=== PATIENT | male | born 1965 | race Hispanic/Latino ===

== ENCOUNTER 2022-03-04 09:28 | Emergency (ER) | payer SELFPAY ==
--- OUTSIDE RECORDS SUMMARY | 2022-03-04 09:44 | XMS REPORT | Continuity of Care Document ---
:1965 Author Organization [facility] t Address [address] [place] [address] Care Team Providers Name Role Phone Pcp, Patient Does Not Have A Primary Care Physician +[id number] MAGALY FOOTE Attending Clinician Unavailable Addie DEWITT, [facility]ician Magaly Foote MD Attending Clinician ELVIA MCKEON Attending Clinician Unavailable Elvia Mckeon MD Attending Clinician MIKY FAJARDO Attending Clinician Unavailable Miky Fajardo MD Attending Clinician LOUIE NARANJO Attending Clinician Unavailable Louie Curiel Attending Clinician Alexandra Burroughs Attending Clinician Yadira Nick MD Attending Clinician YADIRA NICK Attending Clinician Unavailable EDA AUGUSTINE Attending Clinician Unavailable Tatiana Rincon Attending Clinician Francisco Johansen MD Attending Clinician Robyn Canas RN Attending Clinician Kam MCKEONSWPaula Attending Clinician Doctor Unassigned, [place] Attending Clinician Unavailable Sai Lomas MD Attending Clinician ELVIA MCKEON Admitting Clinician Unavailable LOUIE NARANJO Admitting Clinician Unavailable Abebe DEWITT, Sai Daugherty Admitting Clinician Payers Payer Name Policy Type Policy Number Effective Date Expiration Date S ource Problems Condition Condition Condition Status Onset Resolution Last Treating Co mments Source Name Details Category Date Date Treatment Clinician Date S/P S/P Disease Active 2020-0 [facility] amputation amputation 12-19 it y of of foot, of foot, 00:00: [place] [address] Medical Branch S/P S/P Disease Active 2020-0 [facility] amputation amputation 12-19 it y of of foot, of foot, 00:00: [place] [address] Medical Branch 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 toe of 8- [place] of left foot [place] 00:[place] Bandemia Bandemia Disease Active 2020-0 Unive rs 8- ity of 00:00: [place] [address] Medical Branch Lactic Lactic Disease Active 2020-0 Univers acidosis acidosis 11-25 ity of 00:00: [place] [address] Medical Branch Essential Essential Disease Active 2020-0 Uni vers hypertensi hypertensi 11-25 it y of on on 00:00: [place] [address] Medical Branch Leukocytos Leukocytos Disease Active 2020-0 U nivers is is 11-25 ity of 00:00: [place] [address] Medical Branch Hyponatrem Hyponatrem Disease Active 2020-0 U nivers ia ia 11-25 ity of 00:00: [place] 00 Medical Branch Gangrene Gangrene Disease Active Unive rs associated associated 11-25 it y of with type with type 00:[place] 2 diabetes 2 diabetes 00 Me dical mellitus mellitus Branch Type 2 Type 2 Disease Active Univers diabetes diabetes 11-25 it[place] of mellitus, mellitus, 00:[place] without without 00 Medical long-term long-term Bran ch current current use of use of insulin insulin Gas Gas Disease Active Overview: Univer s gangrene gangrene 11-24 Formattin ity of of foot of foot 00:00: g of this [place] 00 note Medical might be Branch different from the original. Added automatic ally from request for surgery [id number] Cellulitis Cellulitis Disease Active U nivers of finger of finger 06-29 ity of of right of right 00:00: [place] hand hand 00 Medical Branch Allergies, Adverse Reactions, Alerts Allergy Allergy Status Severity Reaction(s) Onset Inactive Treating Comm ents Source Name Type Date Date Clinician NO KNOWN Drug Active Univers ALLERGIE Class ity of S [facility] Social History Social Habit Start Date Stop Date Quantity Comments Source Exposure to 2022-02-02 2022-02-12 Not sure University SARS-CoV-2 00:00:00 09:56:00 [facility] (event) [place] Tobacco use and 2022-02-12 2022-02-12 Smokeless tobacco Un iversity of exposure 00:00:00 00:00:00 non-user [facility] Alcohol intake 2022-02-12 2022-02-12 .29 /d University of 00:00:00 00:00:00 [place] [facility] History [facility] 2019-11-26 2019-11-26 4 University o f Financial 00:00:00 00:00:00 [place] [facility] History [facility] Food 2019-11-26 2019-11-26 1 Univers ity of Worry 00:00:00 00:00:00 [place] [facility] History [facility] Food 2019-11-26 2019-11-26 1 Univers ity of Scarcity 00:00:00 00:00:00 [place] [facility] History [facility] 2019-11-26 2019-11-26 2 University o f Transport Med 00:00:00 00:00:00 [place] Medic al Branch History SDOH 2019-11-26 2019-11-26 2 University o f Transport Non-Med 00:00:00 00:00:00 [facility] [place] Sex Ass[birth year] At [birth year] Universit y of 00:00:00 00:00:00 [facility] Smoking Status Start Date Stop Date Source Never smoked tobacco [facility] Medications Ordered Filled Start Stop Current Ordering Indication Dosage Frequency Signature Comments Components Source Medication Medication Date Date Medication? Clinician (SIG) Name Name cephALEXin 2021-03- Yes [id number] 500mg Take 1 Univers 500 mg -16 02-27 capsule by ity of capsule 00:00: 05:59 mouth 4 [place] 00 [facility] Medical times Branch daily for 14 days. cephALEXin 2021-03- Yes [id number] 500mg Take 1 Univers 500 mg -16 02-27 capsule by ity of capsule 00:00: 05:59 mouth 4 [place] 00 :[facility] Medical times Branch daily for 14 days. cephALEXin 2021-03- Yes [id number] 500mg Take 1 Univers 500 mg -02-27 capsule by ity of capsule 00:00: 05:59 mouth 4 [place] 00 :[facility] Medical times Branch daily for 14 days. cephALEXin 2021-03- Yes [id number] 500mg Take 1 Univers 500 mg -16 02-27 capsule by ity of capsule 00:00: 05:59 mouth 4 [place] 00 :[facility] Medical times Branch daily for 14 days. cephALEXin 2021-03- No 500mg 500 mg, Un davy (KEFLEX) 1-10 11-10 Oral, ity of capsule 500 05:15: 04:20 ONCE, 1 [place] mg 00 :[place] dose, On Medical Wed Branch 02/05/22 at 2315, CHARMAINE
Re ason for Anti-Infec tive: Documented Infection< br>Documen alex Infection Site: Skin / Soft Tissue
Duration of Therapy: 7 days traMADoL 50 2021-03 Yes [id number] 50mg Take 1 Univ ers mg tablet 1-09 tablet by ity o f 00:00: mouth [place] 00 every 6 Medical (six) Branch hours as needed (pain). Indication s: acute pain traMADoL 50 2021-03 Yes [id number] 50mg Take 1 Univ ers mg tablet 1-09 tablet by ity o f 00:00: mouth [place] 00 every 6 Medical (six) Branch hours as needed (pain). Indication s: acute pain traMADoL 50 2021-03 Yes [id number] 50mg Take 1 Univ ers mg tablet 1-09 tablet by ity o f 00:00: mouth [place] 00 every 6 Medical (six) Branch hours as needed (pain). Indication s: acute pain traMADoL 50 2021-03 Yes [id number] 50mg Take 1 Univ ers mg tablet 1-09 tablet by ity o f 00:00: mouth [place] 00 every 6 Medical (six) Branch hours as needed (pain). Indication s: acute pain traMADoL 50 2021-03 Yes [id number] 50mg Take 1 Univ ers mg tablet 1-09 tablet by ity o f 00:00: mouth [place] 00 every 6 Medical (six) Branch hours as needed (pain). Indication s: acute pain cephALEXin 2021-03- Yes [id number] 500mg Take 1 Univers 500 mg 04-07 capsule by ity of capsule 00:00: 05:59 mouth 4 [place] 00 :00 (four) Medical times Branch daily for 10 days. cephALEXin 2021-03- No [id number] 500mg Take 1 Univers 500 mg 04-07 capsule by ity of capsule 00:00: 00:00 mouth 4 [place] 00 :00 (four) Medical times Branch daily for 10 days. cephALEXin 2021-03- No [id number] 500mg Take 1 Univers 500 mg 04-07 capsule by ity of capsule 00:00: 00:00 mouth 4 [place] 00 :00 (four) Medical times Branch daily for 10 days. cephALEXin 2021-03- No [id number] 500mg Take 1 Univers 500 mg 04-07 capsule by ity of capsule 00:00: 00:00 mouth 4 [place] 00 :00 (four) Medical times Branch daily for 10 days. cephALEXin 2021-03 Yes [id number] 500mg Take 1 Univers (KEFLEX) 0-18 [id number] capsule by ity of 500 mg 00:00: mouth 2 [place] capsule 00 (two) Medical times Branch daily. ibuprofen 2022-1 Yes [id number] 800mg Take 1 Univers 800 mg 0-18 [id number] tablet by ity of tablet 00:00: mouth [place] 00 every 8 Medical (eight) Branch hours as needed for Pain (scale 4-6). cephALEXin 2021-03 Yes [id number] 500mg Take 1 Univers (KEFLEX) 0-18 [id number] capsule by ity of 500 mg 00:00: mouth 2 [place] capsule 00 (two) Medical times Branch daily. ibuprofen 2021-03 Yes [id number] 800mg Take 1 Univers 800 mg 0-18 [id number] tablet by ity of tablet 00:00: mouth [place] 00 every 8 Medical (eight) Branch hours as needed for Pain (scale 4-6). ibuprofen 2021-03 Yes [id number] 800mg Take 1 Univers 800 mg 0-18 [id number] tablet by ity of tablet 00:00: mouth [place] 00 every 8 Medical (eight) Branch hours as needed for Pain (scale 4-6). ibuprofen 2021-03 Yes [id number] 800mg Take 1 Univers 800 mg 0-18 [id number] tablet by ity of tablet 00:00: mouth [place] 00 every 8 Medical (eight) Branch hours as needed for Pain (scale 4-6). ibuprofen 2021-03 Yes [id number] 800mg Take 1 Univers 800 mg 0-18 [id number] tablet by ity of tablet 00:00: mouth [place] 00 every 8 Medical (eight) Branch hours as needed for Pain (scale 4-6). ibuprofen 2021-03 Yes [id number] 800mg Take 1 Univers 800 mg 0-18 [id number] tablet by ity of tablet 00:00: mouth [place] 00 every 8 Medical (eight) Branch hours as needed for Pain (scale 4-6). cephALEXin 2021-03- No [id number] 500mg Take 1 Univers (KEFLEX) 0-18 11-16 [id number] capsule by it y of 500 mg 00:00: 00:00 mouth 2 [place] capsule 00 :00 (two) Medical times Branch daily. cephALEXin 2021-03- No [id number] 500mg Take 1 Univers (KEFLEX) 0-18 11-16 [id number] capsule by it y of 500 mg 00:00: 00:00 mouth 2 [place] capsule 00 :00 (two) Medical times Branch daily. cephALEXin 2021-03- No [id number] 500mg Take 1 Univers (KEFLEX) 0-18 11-16 [id number] capsule by it y of 500 mg 00:00: 00:00 mouth 2 [place] capsule 00 :00 (two) Medical times Branch daily. clindamycin 2021-2021- No 600mg 600 mg, IV Univers in 5 % 12-25 Piggyback, ity of dextrose 17:00: 18:29 ONCE, 1 [place] (CLEOCIN) 00 :00 dose, On Medica l 600 mg/50 Wed Branch mL IV 12/25/21 at piggyback 1200, RTU 600 mg Administer over 30 Minutes, 50 mL
R esmer for Anti-Infec tive: Documented Infection< br>Documen alex Infection Site: Skin / Soft Tissue
Duration of Therapy: 7 days
Re stricted use approved by: ED PROVIDER doxycycline 2021-0 Yes [id number] 100mg Take 1 Univers hyclate 100 9-28 capsule by it y of mg capsule 00:00: [place] (two) Medical times Branch daily. doxycycline 2021-0 Yes [id number] 100mg Take 1 Univers hyclate 100 9-28 capsule by it y of mg capsule 00:00: mouth [place] 00 (two) Medical times Branch daily. doxycycline 2021-0 Yes [id number] 100mg Take 1 Univers hyclate 100 9-28 capsule by it y of mg capsule 00:00: mouth [place] 00 (two) Medical times Branch daily. doxycycline 2021-0 Yes [id number] 100mg Take 1 Univers hyclate 100 9-28 capsule by it y of mg capsule 00:00: mouth [place] 00 (two) Medical times Branch daily. doxycycline 2021-0 Yes [id number] 100mg Take 1 Univers hyclate 100 9-28 capsule by it y of mg capsule 00:00: mouth [place] 00 (two) Medical times Branch daily. doxycycline 2021-0 Yes [id number] 100mg Take 1 Univers hyclate 100 9-28 capsule by it y of mg capsule 00:00: mouth 2 [place] 00 (two) Medical times Branch daily. doxycycline 2021-0 Yes [id number] 100mg Take 1 Univers hyclate 100 9-28 capsule by it y of mg capsule 00:00: mouth [place] 00 (two) Medical times Branch daily. TAKE 1 2022-0 No TABLET ONCE 8-11 DAILY. 00:00: 00 TAKE 1 2022-0 No 45 TABLET ONCE 8-11 DAILY. 00:00: 00 Dose 2022-0 No Unknown 4-05 00:00: 00 Dose 2022-0 No Unknown 4-05 00:00: 00 Dose 2022-0 No Unknown 4-05 00:00: 00 Dose 2022-0 No Unknown 4-05 00:00: 00 Dose 2022-0 No Unknown 4-05 00:00: 00 Dose 2022-0 No Unknown 4-05 00:00: 00 Dose 2022-0 No Unknown 4-05 00:00: 00 Dose 2022-0 No Unknown 4-05 00:00: 00 Dose 2022-0 No Unknown 4-05 00:00: 00 Dose 2022-0 No Unknown 4-05 00:00: 00 Dose 2022-0 No Unknown 4-05 00:00: 00 Dose 2022-0 No Unknown 4-05 00:00: 00 Dose 2022-0 No Unknown 4-05 00:00: 00 Dose 2022-0 No Unknown 4-05 00:00: 00 Dose 2022-0 No Unknown 4-05 00:00: 00 Dose 2022-0 No Unknown 4-05 00:00: 00 Dose 2022-0 No Unknown 3-13 00:00: 00 Dose 2022-0 No Unknown 3-13 00:00: 00 Dose 2022-0 No Unknown 3-13 00:00: 00 Dose 2022-0 No Unknown 3-13 00:00: 00 amlodipine 2022-0 No 1mg 10 mg 3-08 tablet 00:00: 00 pioglitazon 2022-0 No 1mg e 45 mg 3-08 tablet 00:00: 00 glimepiride 2022-0 No 1mg 4 mg tablet 3-08 00:00: 00 carvedilol 2022-0 No 1mg 12.5 mg 3-08 tablet 00:00: 00 metformin 2022-0 No 2mg ER 500 mg 3-08 tablet,exte 00:00: nded 00 release 24 hr atorvastati 2022-0 No 1mg n 20 mg 3-08 tablet 00:00: 00 Dose 2022-0 No Unknown 3-08 00:00: 00 Dose 2022-0 No Unknown 3-08 00:00: 00 Dose 2022-0 No Unknown 3-08 00:00: 00 Dose 2022-0 No Unknown 3-08 00:00: 00 Dose 2022-0 No Unknown 3-08 00:00: 00 Dose 2022-0 No Unknown 3-08 00:00: 00 Dose 2022-0 No Unknown 3-08 00:00: 00 Dose 2022-0 No Unknown 3-08 00:00: 00 Dose 2022-0 No Unknown 3-08 00:00: 00 Dose 2022-0 No Unknown 3-08 00:00: 00 Dose 2022-0 No Unknown 3-08 00:00: 00 Dose 2022-0 No Unknown 3-08 00:00: 00 Dose 2022-0 No Unknown 3-08 00:00: 00 Dose 2022-0 No Unknown 3-08 00:00: 00 Dose 2022-0 No Unknown 3-08 00:00: 00 Dose 2022-0 No Unknown 3-08 00:00: 00 Dose 2022-0 No Unknown 3-08 00:00: 00 Dose 2022-0 No Unknown 3-08 00:00: 00 Dose 2022-0 No Unknown 3-08 00:00: 00 Dose 2022-0 No Unknown 3-08 00:00: 00 Dose 2022-0 No Unknown 3-08 00:00: 00 Dose 2022-0 No Unknown 3-08 00:00: 00 Dose 2022-0 No Unknown 3-08 00:00: 00 Dose 2022-0 No Unknown 3-08 00:00: 00 Dose 2022-0 No Unknown 3-08 00:00: 00 Dose 2022-0 No Unknown 3-08 00:00: 00 Dose 2022-0 No Unknown 3-08 00:00: 00 Dose 2022-0 No Unknown 3-08 00:00: 00 Dose 2022-0 No Unknown 3-08 00:00: 00 Dose 2022-0 No Unknown 3-08 00:00: 00 Dose 2022-0 No Unknown 3-08 00:00: 00 Dose 2022-0 No Unknown 3-08 00:00: 00 Dose 2022-0 No Unknown 3-08 00:00: 00 Dose 2022-0 No Unknown 3-08 00:00: 00 Dose 2022-0 No Unknown 3-08 00:00: 00 Dose 2022-0 No Unknown 3-08 00:00: 00 Dose 2022-0 No Unknown 3-08 00:00: 00 Dose 2022-0 No Unknown 3-08 00:00: 00 Dose 2022-0 No Unknown 3-08 00:00: 00 amlodipine 2022-0 No 1mg 10 mg 3-08 tablet 00:00: 00 pioglitazon 2022-0 No 1mg e 45 mg 3-08 tablet 00:00: 00 glimepiride 2022-0 No 1mg 4 mg tablet 3-08 00:00: 00 carvedilol 2022-0 No 1mg 12.5 mg 3-08 tablet 00:00: 00 metformin 2-0 No 2mg ER 500 mg 3-08 tablet,exte 00:00: nded 00 release 24 hr atorvastati 2-0 No 1mg n 20 mg 3-08 tablet 00:00: 00 Levemir 2022-0 No 20unit/ U-100 3-08 mL Insulin 100 00:00: unit/mL 00 subcutaneou s solution Dose 2022-0 No Unknown 3-08 00:00: 00 Dose 2022-0 No Unknown 3-08 00:00: 00 Dose 2022-0 No Unknown 3-08 00:00: 00 Dose 2022-0 No Unknown 3-08 00:00: 00 Dose 2022-0 No Unknown 3-08 00:00: 00 Dose 2022-0 No Unknown 3-08 00:00: 00 Dose 2022-0 No Unknown 3-08 00:00: 00 Dose 2022-0 No Unknown 3-08 00:00: 00 Dose 2022-0 No Unknown 3-08 00:00: 00 Dose 2022-0 No Unknown 3-08 00:00: 00 Dose 2022-0 No Unknown 3-08 00:00: 00 Dose 2022-0 No Unknown 3-08 00:00: 00 Dose 2022-0 No Unknown 3-08 00:00: 00 Dose 2022-0 No Unknown 3-08 00:00: 00 Dose 2022-0 No Unknown 3-08 00:00: 00 Dose 2022-0 No Unknown 3-08 00:00: 00 Dose 2022-0 No Unknown 3-08 00:00: 00 Dose 2022-0 No Unknown 3-08 00:00: 00 Dose 2022-0 No Unknown 3-08 00:00: 00 Dose 2022-0 No Unknown 3-08 00:00: 00 Dose 2022-0 No Unknown 3-08 00:00: 00 Dose 2022-0 No Unknown 3-08 00:00: 00 Dose 2022-0 No Unknown 3-08 00:00: 00 Dose 2022-0 No Unknown 3-08 00:00: 00 Dose 2022-0 No Unknown 3-08 00:00: 00 Dose 2022-0 No Unknown 3-08 00:00: 00 Dose 2022-0 No Unknown 3-08 00:00: 00 Dose 2022-0 No Unknown 3-08 00:00: 00 Dose 2022-0 No Unknown 3-08 00:00: 00 Dose 2022-0 No Unknown 3-08 00:00: 00 Dose 2022-0 No Unknown 3-08 00:00: 00 Dose 2022-0 No Unknown 3-08 00:00: 00 Dose 2022-0 No Unknown 3-08 00:00: 00 Dose 2022-0 No Unknown 3-08 00:00: 00 Dose 2022-0 No Unknown 3-08 00:00: 00 Dose 2022-0 No Unknown 3-08 00:00: 00 Dose 2022-0 No Unknown 3-08 00:00: 00 Dose 2022-0 No Unknown 3-08 00:00: 00 Dose 2021-1 No Unknown 2-18 00:00: 00 Dose 2021-1 No Unknown 2-18 00:00: 00 Dose 2021-1 No Unknown 2-18 00:00: 00 Dose 2021-1 No Unknown 2-18 00:00: 00 Dose 2021-1 No Unknown 2-18 00:00: 00 Dose 2021-1 No Unknown 2-18 00:00: 00 Dose 2021-1 No Unknown 2-18 00:00: 00 Dose 2021-1 No Unknown 2-18 00:00: 00 Dose 2021-1 No Unknown 2-18 00:00: 00 Dose 2021-1 No Unknown 2-18 00:00: 00 Dose 2021-1 No Unknown 2-18 00:00: 00 Dose 2021-1 No Unknown 2-18 00:00: 00 pioglitazon 2021-0 No 1mg e 30 mg 8-27 tablet 00:00: 00 pioglitazon 2021-0 No 1mg e 30 mg 8-27 tablet 00:00: 00 amlodipine 2021-0 No 1mg 10 mg 8-11 tablet 00:00: 00 glimepiride 2021-0 No 1mg 4 mg tablet 8-11 00:00: 00 metformin 2021-0 No 2mg ER 500 mg 8-11 tablet,exte 00:00: nded 00 release 24 hr carvedilol 2021-0 No 1mg 12.5 mg 8-11 tablet 00:00: 00 atorvastati 2021-0 No 1mg n 20 mg 8-11 tablet 00:00: 00 amlodipine 2021-0 No 1mg 10 mg 8-11 tablet 00:00: 00 glimepiride 2021-0 No 1mg 4 mg tablet 8-11 00:00: 00 metformin 2021-0 No 2mg ER 500 mg 8-11 tablet,exte 00:00: nded 00 release 24 hr carvedilol 2021-0 No 1mg 12.5 mg 8-11 tablet 00:00: 00 atorvastati 2021-0 No 1mg n 20 mg 8-11 tablet 00:00: 00 amlodipine 2021-0 No 1mg 10 mg 4-06 tablet 00:00: 00 carvedilol 2021-0 No 1mg 12.5 mg 4-06 tablet 00:00: 00 glimepiride 2021-0 No 1mg 4 mg tablet 4-06 00:00: 00 amlodipine 2021-0 No 1mg 10 mg 4-06 tablet 00:00: 00 carvedilol 2021-0 No 1mg 12.5 mg 4-06 tablet 00:00: 00 metformin 2021-0 No 2mg ER 500 mg 4-06 tablet,exte 00:00: nded 00 release 24 hr glimepiride 2021-0 No 1mg 4 mg tablet 4-06 00:00: 00 metformin 2021-0 No 2mg ER 500 mg 4-06 tablet,exte 00:00: nded 00 release 24 hr atorvastati 2021-0 No 1mg n 20 mg 4-06 tablet 00:00: 00 atorvastati 1-0 No 1mg n 20 mg 4-06 tablet 00:00: 00 amlodipine 2020-1 No 1mg 10 mg 2-08 tablet 00:00: 00 metformin 2019-1 No 2mg ER 500 mg 2-08 tablet,exte 00:00: nded 00 release 24 hr glimepiride 2019-1 No 1mg 4 mg tablet 2-08 00:00: 00 carvedilol 2019-1 No 1mg 12.5 mg 2-08 tablet 00:00: 00 atorvastati 2019-1 No 1mg n 20 mg 2-08 tablet 00:00: 00 amlodipine 2019-1 No 1mg 10 mg 2-08 tablet 00:00: 00 metformin 2019-1 No 2mg ER 500 mg 2-08 tablet,exte 00:00: nded 00 release 24 hr glimepiride 2019-1 No 1mg 4 mg tablet 2-08 00:00: 00 carvedilol 2019-1 No 1mg 12.5 mg 2-08 tablet 00:00: 00 atorvastati 2019-1 No 1mg n 20 mg 2-08 tablet 00:00: 00 glimepiride 2020-0 No 1mg 4 mg tablet 929 00:00: 00 glimepiride 2020-0 No 1mg 4 mg tablet 9 00:00: 00 ibuprofen 2020-0 No 2mg 200 mg 9-25 tablet 00:00: 00 acetaminoph 2020-0 No 2mg en 325 mg 9-25 capsule 00:00: 00 aspirin 81 2020-0 No 1mg mg chewable 9-25 tablet 00:00: 00 amlodipine 2020-0 No 1mg 10 mg 9-25 tablet 00:00: 00 amoxicillin 2020-0 No 1mg 875 9-25 mg-potassiu 00:00: m 00 clavulanate 125 mg tablet carvedilol 2020-0 No 1mg 12.5 mg 9-25 tablet 00:00: 00 metformin 2020-0 No 1mg 1,000 mg 9-25 tablet 00:00: 00 atorvastati 2020-0 No 1mg n 20 mg 9-25 tablet 00:00: 00 hydrocodone 2020-0 No 1mg 5 9-25 mg-acetamin 00:00: ophen 325 00 mg tablet ibuprofen 2020-0 No 2mg 200 mg 9-25 tablet 00:00: 00 acetaminoph 2019-0 No 2mg en 325 mg 9-25 capsule 00:00: 00 aspirin 81 2019-0 No 1mg mg chewable 9-25 tablet 00:00: 00 amlodipine 2019-0 No 1mg 10 mg 9-25 tablet 00:00: 00 amoxicillin 2019-0 No 1mg 875 9-25 mg-potassiu 00:00: m 00 clavulanate 125 mg tablet carvedilol 2019-0 No 1mg 12.5 mg 9-25 tablet 00:00: 00 metformin 2019-0 No 1mg 1,000 mg 9-25 tablet 00:00: 00 atorvastati 2019-0 No 1mg n 20 mg 9-25 tablet 00:00: 00 hydrocodone 2019-0 No 1mg 5 9-25 mg-acetamin 00:00: ophen 325 00 mg tablet insulin 2019-0 Yes [id number] 10U inject 10 Univers glargine 9-22 Units ity of 100 unit/mL 00:00: under the [place] injection 00 skin 2 Medical (two) Branch times daily. empaglifloz 2019-0 Yes [id number] 1{tbl} Take 1 Univers in 9-22 tablet by ity of (JARDIANCE) 00:00: mouth [place] 10 mg Tab 00 daily. Medical Branch insulin 2019-0 Yes [id number] 10U inject 10 Univers glargine 9-22 Units ity of 100 unit/mL 00:00: under the [place] injection 00 skin 2 Medical (two) Branch times daily. empaglifloz 2020-0 Yes [id number] 1{tbl} Take 1 Univers in 9-22 tablet by ity of (JARDIANCE) 00:00: mouth [place] 10 mg Tab 00 daily. Medical Branch insulin 2020-0 Yes [id number] 10U inject 10 Univers glargine 9-22 Units ity of 100 unit/mL 00:00: under the [place] injection 00 skin 2 Medical (two) Branch times daily. empaglifloz 2019-0 Yes [id number] 1{tbl} Take 1 Univers in 9-22 tablet by ity of (JARDIANCE) 00:00: mouth [place] 10 mg Tab 00 daily. Medical Branch insulin 2019-0 Yes [id number] 10U inject 10 Univers glargine 9-22 Units ity of 100 unit/mL 00:00: under the [place] injection 00 skin 2 Medical (two) Branch times daily. empaglifloz 2020-0 Yes [id number] 1{tbl} Take 1 Univers in 9-22 tablet by ity of (JARDIANCE) 00:00: mouth [place] 10 mg Tab 00 daily. Medical Branch insulin 2020-0 Yes [id number] 10U inject 10 Univers glargine 9-22 Units ity of 100 unit/mL 00:00: under the [place] injection 00 skin 2 Medical (two) Branch times daily. empaglifloz 2020-0 Yes [id number] 1{tbl} Take 1 Univers in 9-22 tablet by ity of (JARDIANCE) 00:00: mouth [place] 10 mg Tab 00 daily. Medical Branch insulin 2020-0 Yes [id number] 10U inject 10 Univers glargine 9-22 Units ity of 100 unit/mL 00:00: under the [place] injection 00 skin 2 Medical (two) Branch times daily. empaglifloz 2020-0 Yes [id number] 1{tbl} Take 1 Univers in 9-22 tablet by ity of (JARDIANCE) 00:00: mouth [place] 10 mg Tab 00 daily. Medical Branch insulin 2020-0 Yes [id number] 10U inject 10 Univers glargine 9-22 Units ity of 100 unit/mL 00:00: under the [place] injection 00 skin 2 Medical (two) Branch times daily. empaglifloz 2020-0 Yes [id number] 1{tbl} Take 1 Univers in 9-22 tablet by ity of (JARDIANCE) 00:00: mouth [place] 10 mg Tab 00 daily. Medical Branch HYDROcodone 2020-0 Yes [id number] 1{tbl} Take 1 Un davy -acetaminop 9-22 tablet by ity of hen (NORCO) 00:00: mouth [place] 5-325 mg 00 every 6 Medical tablet (six) Branch hours as needed for Pain (scale 7-10). Indication s: acute pain insulin 2020-0 Yes [id number] 10U inject 10 Univers glargine 9-22 Units ity of 100 unit/mL 00:00: under the [place] injection 00 skin 2 Medical (two) Branch times daily. empaglifloz 2020-0 Yes [id number] 1{tbl} Take 1 Univers in 9-22 tablet by ity of (JARDIANCE) 00:00: mouth [place] 10 mg Tab 00 daily. Medical Branch acetaminoph 2020-0 Yes [id number] 1{tbl} Take 1 Un davy en-codeine 9-22 tablet by ity of (TYLENOL-CO 00:00: mouth [place] DEINE #3) 00 every 6 Medical 300-30 mg (six) Branch tablet hours as needed for Pain (scale 4-6). Indication s: chronic pain HYDROcodone 2020-0 Yes [id number] 1{tbl} Take 1 Un davy -acetaminop 9-22 tablet by ity of hen (NORCO) 00:00: mouth [place] 5-325 mg 00 every 6 Medical tablet (six) Branch hours as needed for Pain (scale 7-10). Indication s: acute pain insulin 2020-0 Yes [id number] 10U inject 10 Univers glargine 9-22 Units ity of 100 unit/mL 00:00: under the [place] injection 00 skin 2 Medical (two) Branch times daily. empaglifloz 2020-0 Yes [id number] 1{tbl} Take 1 Univers in 9-22 tablet by ity of (JARDIANCE) 00:00: mouth [place] 10 mg Tab 00 daily. Medical Branch acetaminoph 2020-0 Yes [id number] 1{tbl} Take 1 Un davy en-codeine 9-22 tablet by ity of (TYLENOL-CO 00:00: mouth [place] DEINE #3) 00 every 6 Medical 300-30 mg (six) Branch tablet hours as needed for Pain (scale 4-6). Indication s: chronic pain insulin 2020-0 Yes [id number] 10U inject 10 [facility] glargine 9-22 Units ity of 100 unit/mL 00:00: under the [place] injection 00 skin 2 Medical (two) Branch times daily. empaglifloz 2020-0 Yes [id number] 1{tbl} Take 1 [facility] in 9-22 tablet by [facility] (JARDIANCE) 00:00: mouth [place] 10 mg Tab 00 daily. Medical Branch HYDROcodone 2020-0 Yes [id number] 1{tbl} Take 1 [facility] davy -acetaminop 9-22 tablet by [facility] of hen (NORCO) 00:00: mouth [place] 5-325 mg 00 every 6 Medical tablet (six) Branch hours as needed for Pain (scale 7-10). Indication s: acute pain insulin 2020-0 Yes [id number] 10U inject 10 [facility] glargine 9-22 Units [facility] of 100 unit/mL 00:00: [place] injection 00 skin 2 [facility] (two) Branch times daily. empaglifloz 2020-0 Yes [id number] 1{tbl} Take 1 [facility] in 9-22 tablet by [facility] of (JARDIANCE) 00:00: mouth [place] 10 mg Tab 00 daily. Medical Branch acetaminoph 2020-0 Yes [id number] 1{tbl} Take 1 Un davy en-codeine 9-22 tablet by ity of (TYLENOL-CO 00:00: mouth [place] DEINE #3) 00 every 6 Medical 300-30 mg (six) Branch tablet hours as needed for Pain (scale 4-6). Indication s: chronic pain HYDROcodone 2020-0 Yes [id number] 1{tbl} Take 1 [facility] davy -acetaminop 9-22 tablet by [facility] of hen (NORCO) 00:00: mouth [place] 5-325 mg 00 every 6 Medical tablet (six) Branch hours as needed for Pain (scale 7-10). Indication s: acute pain insulin 2020-0 Yes [id number] 10U inject 10 [facility] glargine 9-22 Units [facility] 100 unit/mL 00:00: under [place] injection 00 skin 2 [facility] (two) Branch times daily. empaglifloz 2020-0 Yes [id number] 1{tbl} Take 1 [facility] in 9-22 tablet by [facility] of (JARDIANCE) 00:00: mouth [place] 10 mg Tab 00 daily. Medical Branch acetaminoph 2020-0 Yes [id number] 1{tbl} Take 1 [facility] davy en-codeine 9-22 tablet by ity of (TYLENOL-CO 00:00: mouth [place] DEINE #3) 00 every 6 Medical 300-30 mg (six) Branch tablet hours as needed for Pain (scale 4-6). Indication s: chronic pain HYDROcodone 2020-0 Yes [id number] 1{tbl} Take 1 [facility] davy -acetaminop 9-22 tablet by [facility] of hen (NORCO) 00:00: mouth [place] 5-325 mg 00 every 6 Medical tablet (six) Branch hours as needed for Pain (scale 7-10). Indication s: acute pain HYDROcodone 2020-0 Yes [id number] 1{tbl} Take 1 [facility] d[facility] -acetaminop 9-22 tablet by [facility] hen (NORCO) 00:00: mouth [place] 5-325 mg 00 every 6 Medical tablet (six) Branch hours as needed for Pain (scale 7-10). Indication s: acute pain HYDROcodone 2020-0 Yes [id number] 1{tbl} Take 1 [facility] -acetaminop 9-22 tablet by [facility] hen (NORCO) 00:00: mouth [place] 5-325 mg 00 every 6 Medical tablet (six) Branch hours as needed for Pain (scale 7-10). Indication s: acute pain insulin 2020-0 Yes [id number] 10U inject 10 [facility] glargine 9-22 Units [facility] of 100 unit/mL 00:00: under the [place] injection 00 skin 2 [facility] (two) Branch times daily. empaglifloz 2020-0 Yes [id number] 1{tbl} Take 1 [facility] in 9-22 tablet by [facility] of (JARDIANCE) 00:00: mouth [place] 10 mg Tab 00 daily. Medical Branch acetaminoph 2020-0 Yes [id number] 1{tbl} Take 1 [facility] davy en-codeine 9-22 tablet by [facility] of (TYLENOL-CO 00:00: mouth [place] DEINE #3) 00 every 6 Medical 300-30 mg (six) Branch tablet hours as needed for Pain (scale 4-6). Indication s: chronic pain HYDROcodone 2020-0 Yes [id number] 1{tbl} Take 1 [facility] davy -acetaminop 9-22 tablet by [facility] of hen (NORCO) 00:00: mouth [place] 5-325 mg 00 every 6 Medical tablet (six) Branch hours as needed for Pain (scale 7-10). Indication s: acute pain insulin 2020-0 Yes [id number] 10U inject 10 [facility] glargine 9-22 Units [facility] of 100 unit/mL 00:00: under the [place] injection 00 skin 2 [facility] (two) Branch times daily. empaglifloz 2020-0 Yes [id number] 1{tbl} Take 1 [facility] in 9-22 tablet by [facility] of (JARDIANCE) 00:00: mouth [place] 10 mg Tab 00 daily. Medical [facility] HYDROcodone 2020-0 Yes [id number] 1{tbl} Take 1 [facility] davy -acetaminop 9-22 tablet by [facility] of hen (NORCO) 00:00: mouth [place] 5-325 mg 00 every 6 Medical tablet (six) Branch hours as needed for Pain (scale 7-10). Indication s: acute pain insulin 2020-0 Yes [id number] 10U inject 10 [facility] glargine 9-22 Units [facility] 100 unit/mL 00:00: under the [place] injection 00 skin 2 [facility] (two) Branch times daily. empaglifloz 2020-0 Yes [id number] 1{tbl} Take 1 [facility] in 9-22 tablet by [facility] of (JARDIANCE) 00:00: mouth [place] 10 mg Tab 00 daily. Medical [facility] HYDROcodone 2020-0 Yes [id number] 1{tbl} Take 1 [facility] davy -acetaminop 9-22 tablet by [facility] of hen (NORCO) 00:00: mouth [place] 5-325 mg 00 every 6 Medical tablet (six) Branch hours as needed for Pain (scale 7-10). Indication s: acute pain insulin 2020-0 Yes [id number] 10U inject 10 [facility] glargine 9-22 Units [facility] of 100 unit/mL 00:00: under the [place] injection 00 skin 2 [facility] (two) Branch times daily. empaglifloz 2020-0 Yes [id number] 1{tbl} Take 1 [facility] in 9-22 tablet by [facility] of (JARDIANCE) 00:00: mouth [place] 10 mg Tab 00 daily. Medical [facility] HYDROcodone 2020-0 Yes [id number] 1{tbl} Take 1 [facility] d[facility] -acetaminop 9-22 tablet by [facility] of hen (NORCO) 00:00: mouth [place] 5-325 mg 00 every 6 Medical tablet (six) Branch hours as needed for Pain (scale 7-10). Indication s: acute pain insulin 2020-0 Yes [id number] 10U inject 10 [facility] glargine 9-22 Units [facility] of 100 unit/mL 00:00: under the [place] injection 00 skin 2 Medical (two) Branch times daily. empaglifloz 2020-0 Yes [id number] 1{tbl} Take 1 [facility] in 9-22 tablet by [facility] of (JARDIANCE) 00:00: mouth [place] 10 mg Tab 00 daily. Medical Branch HYDROcodone 2020-0 Yes [id number] 1{tbl} Take 1 [facility] d[facility] -acetaminop 9-22 tablet by [facility] of hen (NORCO) 00:00: mouth [place] 5-325 mg 00 every 6 Medical tablet (six) Branch hours as needed for Pain (scale 7-10). Indication s: acute pain insulin 2020-0 Yes [id number] 10U inject 10 [facility] glargine 9-22 Units [facility] of 100 unit/mL 00:00: under the [place] injection 00 skin 2 Medical (two) Branch times daily. empaglifloz 2020-0 Yes [id number] 1{tbl} Take 1 [facility] in 9-22 tablet by [facility] of (JARDIANCE) 00:00: mouth [place] 10 mg Tab 00 daily. Medical [facility] HYDROcodone 2020-0 Yes [id number] 1{tbl} Take 1 [facility] davy -acetaminop 9-22 tablet by [facility] of hen (NORCO) 00:00: mouth [place] 5-325 mg 00 every 6 Medical tablet (six) Branch hours as needed for Pain (scale 7-10). Indication s: acute pain insulin 2020-0 Yes [id number] 10U inject 10 [facility] glargine 9-22 Units [facility] 100 unit/mL 00:00: under the [place] injection 00 skin 2 Medical (two) Branch times daily. empaglifloz 2020-0 Yes [id number] 1{tbl} Take 1 [facility] in 9-22 tablet by [facility] of (JARDIANCE) 00:00: mouth [place] 10 mg Tab 00 daily. Medical [facility] HYDROcodone 2020-0 Yes [id number] 1{tbl} Take 1 [facility] davy -acetaminop 9-22 tablet by [facility] of hen (NORCO) 00:00: mouth [place] 5-325 mg 00 every 6 Medical tablet (six) Branch hours as needed for Pain (scale 7-10). Indication s: acute pain insulin 2020-0 Yes [id number] 10U inject 10 [facility] glargine 9-22 Units [facility] 100 unit/mL 00:00: under the [place] injection 00 skin 2 [facility] (two) Branch times daily. empaglifloz 2020-0 Yes [id number] 1{tbl} Take 1 [facility] in 9-22 tablet by [facility] of (JARDIANCE) 00:00: mouth [place] 10 mg Tab 00 daily. Medical [facility] insulin 2020-0 Yes [id number] 10U inject 10 [facility] glargine 9-22 Units [facility] of 100 unit/mL 00:00: under the [place] injection 00 skin 2 Medical (two) Branch times daily. empaglifloz 2020-0 Yes [id number] 1{tbl} Take 1 [facility] in 9-22 tablet by [facility] of (JARDIANCE) 00:00: mouth [place] 10 mg Tab 00 daily. Medical [facility] insulin 2020-0 Yes [id number] 10U inject 10 [facility] glargine 9-22 Units [facility] of 100 unit/mL 00:00: under the [place] injection 00 skin 2 Medical (two) Branch times daily. empaglifloz 2020-0 Yes [id number] 1{tbl} Take 1 [facility] in 9-22 tablet by [facility] of (JARDIANCE) 00:00: mouth [place] 10 mg Tab 00 daily. Medical [facility] insulin 2020-0 Yes [id number] 10U inject 10 [facility] glargine 9-22 Units [facility] of 100 unit/mL 00:00: under the [place] injection 00 skin 2 Medical (two) Branch times daily. empaglifloz 2020-0 Yes [id number] 1{tbl} Take 1 [facility] in 9-22 tablet by [facility] of (JARDIANCE) 00:00: mouth [place] 10 mg Tab 00 daily. [facility] insulin 2020-0 Yes [id number] 10U inject 10 [facility] glargine 9-22 Units [facility] of 100 unit/mL 00:00: under the [place] injection 00 skin 2 Medical (two) Branch times daily. empaglifloz 2020-0 Yes [id number] 1{tbl} Take 1 [facility] in 9-22 tablet by [facility] of (JARDIANCE) 00:00: mouth [place] 10 mg Tab 00 daily. Medical [facility] insulin 2020-0 Yes [id number] 10U inject 10 [facility] glargine 9-22 Units [facility] of 100 unit/mL 00:00: under the [place] injection 00 skin 2 Medical (two) Branch times daily. empaglifloz 2020-0 Yes [id number] 1{tbl} Take 1 [facility] in 9-22 tablet by [facility] of (JARDIANCE) 00:00: mouth [place] 10 mg Tab 00 daily. Medical [facility] insulin 2020-0 Yes [id number] 10U inject 10 [facility] glargine 9-22 Units [facility] of 100 unit/mL 00:00: under the [place] injection 00 skin 2 Medical (two) Branch times daily. empaglifloz 2020-0 Yes [id number] 1{tbl} Take 1 [facility] in 9-22 tablet by [facility] of (JARDIANCE) 00:00: mouth [place] 10 mg Tab 00 daily. Medical Branch insulin 2020-0 Yes [id number] 10U inject 10 [facility] glargine 9-22 Units [facility] of 100 unit/mL 00:00: under the [place] injection 00 skin 2 Medical (two) Branch times daily. empaglifloz 2020-0 Yes [id number] 1{tbl} Take 1 [facility] in 9-22 tablet by [facility] of (JARDIANCE) 00:00: mouth [place] 10 mg Tab 00 daily. Medical Branch insulin 2020-0 Yes [id number] 10U inject 10 [facility] glargine 9-22 Units [facility] of 100 unit/mL 00:00: under the [place] injection 00 skin 2 Medical (two) Branch times daily. empaglifloz 2020-0 Yes [id number] 1{tbl} Take 1 [facility] in 9-22 tablet by [facility] of (JARDIANCE) 00:00: mouth [place] 10 mg Tab 00 daily. Medical [facility] insulin 2020-0 Yes [id number] 10U inject 10 [facility] glargine 9-22 Units [facility] of 100 unit/mL 00:00: under the [place] injection 00 skin 2 Medical (two) Branch times daily. empaglifloz 2020-0 Yes [id number] 1{tbl} Take 1 [facility] in 9-22 tablet by [facility] of (JARDIANCE) 00:00: mouth [place] 10 mg Tab 00 daily. Medical [facility] insulin 2020-0 Yes [id number] 10U inject 10 [facility] glargine 9-22 Units [facility] of 100 unit/mL 00:00: under the [place] injection 00 skin 2 Medical (two) Branch times daily. empaglifloz 2020-0 Yes [id number] 1{tbl} Take 1 [facility] in 9-22 tablet by [facility] of (JARDIANCE) 00:00: mouth [place] 10 mg Tab 00 daily. Medical [facility] insulin 2020-0 Yes [id number] 10U inject 10 [facility] glargine 9-22 Units [facility] of 100 unit/mL 00:00: under the [place] injection 00 skin 2 Medical (two) Branch times daily. empaglifloz 2020-0 Yes [id number] 1{tbl} Take 1 [facility] in 9-22 tablet by [facility] of (JARDIANCE) 00:00: mouth [place] 10 mg Tab 00 daily. Medical Branch insulin 2020-0 Yes [id number] 10U inject 10 [facility] glargine 9-22 Units [facility] of 100 unit/mL 00:00: under the [place] injection 00 skin 2 Medical (two) Branch times daily. empaglifloz 2020-0 Yes [id number] 1{tbl} Take 1 [facility] in 9-22 tablet by [facility] of (JARDIANCE) 00:00: mouth [place] 10 mg Tab 00 daily. Medical [facility] insulin 2020-0 Yes [id number] 10U inject 10 [facility] glargine 9-22 Units [facility] of 100 unit/mL 00:00: under the [place] injection 00 skin 2 Medical (two) Branch times daily. empaglifloz 2020-0 Yes [id number] 1{tbl} Take 1 [facility] in 9-22 tablet by [facility] of (JARDIANCE) 00:00: mouth [place] 10 mg Tab 00 daily. Medical Branch insulin 2020-0 Yes [id number] 10U inject 10 [facility] glargine 9-22 Units [facility] of 100 unit/mL 00:00: under the [place] injection 00 skin 2 Medical (two) Branch times daily. empaglifloz 2020-0 Yes [id number] 1{tbl} Take 1 [facility] in 9-22 tablet by [facility] of (JARDIANCE) 00:00: mouth [place] 10 mg Tab 00 daily. Medical Branch insulin 2020-0 Yes [id number] 10U inject 10 [facility] glargine 9-22 Units it[facility] of 100 unit/mL 00:00: under the [place] injection 00 skin 2 Medical (two) Branch times daily. empaglifloz 2020-0 Yes [id number] 1{tbl} Take 1 [facility] in 9-22 tablet by [facility] of (JARDIANCE) 00:00: mouth [place] 10 mg Tab 00 daily. Medical [facility] insulin 2020-0 Yes [id number] 10U inject 10 [facility] glargine 9-22 Units [facility] of 100 unit/mL 00:00: under the [place] injection 00 skin 2 Medical (two) Branch times daily. empaglifloz 2020-0 Yes [id number] 1{tbl} Take 1 [facility] in 9-22 tablet by [facility] of (JARDIANCE) 00:00: mouth [place] 10 mg Tab 00 daily. Medical Branch insulin 2020-0 Yes [id number] 10U inject 10 [facility] glargine 9-22 Units it[facility] of 100 unit/mL 00:00: under the [place] injection 00 skin 2 Medical (two) Branch times daily. empaglifloz 2020-0 Yes [id number] 1{tbl} Take 1 [facility] in 9-22 tablet by [facility] of (JARDIANCE) 00:00: mouth [place] 10 mg Tab 00 daily. Medical [facility] insulin 2020-0 Yes [id number] 10U inject 10 [facility] glargine 9-22 Units [facility] of 100 unit/mL 00:00: under the [place] injection 00 skin 2 Medical (two) Branch times daily. empaglifloz 2020-0 Yes [id number] 1{tbl} Take 1 [facility] in 9-22 tablet by [facility] of (JARDIANCE) 00:00: mouth [place] 10 mg Tab 00 daily. Medical Branch insulin 2020-0 Yes [id number] 10U inject 10 [facility] glargine 9-22 Units [facility] of 100 unit/mL 00:00: under the [place] injection 00 skin 2 Medical (two) Branch times daily. empaglifloz 2020-0 Yes [id number] 1{tbl} Take 1 [facility] in 9-22 tablet by [facility] of (JARDIANCE) 00:00: mouth [place] 10 mg Tab 00 daily. Medical Branch insulin 2020-0 Yes [id number] 10U inject 10 [facility] glargine 9-22 Units [facility] of 100 unit/mL 00:00: under the [place] injection 00 skin 2 Medical (two) Branch times daily. empaglifloz 2020-0 Yes [id number] 1{tbl} Take 1 [facility] in 9-22 tablet by [facility] of (J[facility]IANCE) 00:00: mouth [place] 10 mg Tab 00 daily. Medical Branch insulin 2020-0 Yes [id number] 10U inject 10 [facility] glargine 9-22 Units [facility] of 100 unit/mL 00:00: under the [place] injection 00 skin 2 Medical (two) Branch times daily. empaglifloz 2020-0 Yes [id number] 1{tbl} Take 1 [facility] in 9-22 tablet by [facility] of (JARDIANCE) 00:00: mouth [place] 10 mg Tab 00 daily. Medical [facility] insulin 2020-0 Yes [id number] 10U inject 10 [facility] glargine 9-22 Units [facility] of 100 unit/mL 00:00: under the [place] injection 00 skin 2 Medical (two) Branch times daily. empaglifloz 2020-0 Yes [id number] 1{tbl} Take 1 [facility] in 9-22 tablet by [facility] of (J[facility]IANCE) 00:00: mouth [place] 10 mg Tab 00 daily. Medical Branch insulin 2020-0 Yes [id number] 10U inject 10 [facility] glargine 9-22 Units [facility] of 100 unit/mL 00:00: under the [place] injection 00 skin 2 Medical (two) Branch times daily. empaglifloz 2020-0 Yes [id number] 1{tbl} Take 1 [facility] in 9-22 tablet by [facility] of (JARDIANCE) 00:00: mouth [place] 10 mg Tab 00 daily. Medical Branch insulin 2020-0 Yes [id number] 10U inject 10 [facility] glargine 9-22 Units [facility] of 100 unit/mL 00:00: under the [place] injection 00 skin 2 Medical (two) Branch times daily. empaglifloz 2020-0 Yes [id number] 1{tbl} Take 1 [facility] in 9-22 tablet by [facility] of (JARDIANCE) 00:00: mouth [place] 10 mg Tab 00 daily. Medical Branch HYDROcodone 2020- No [id number] 1{tbl} Take 1 [facility] n[facility] -acetaminop 9-22 10-16 tablet by it y of hen ([facility]CO) 00:00: 00:00 [place] 5-325 mg 00 :00 every 6 Medical tablet (six) Branch hours as needed for Pain (scale 7-10). Indication s: acute pain HYDROcodone 2020- No 4647 1{tbl} Take 1 [facility] n[facility] -acetaminop 9-22 10-16 tablet by it y of hen (NORCO) 00:00: 00:00 mouth [place] 5-325 mg 00 :00 every 6 Medical tablet (six) Branch hours as needed for Pain (scale 7-10). Indication s: acute pain HYDROcodone 2019-0 2020- No 4647 1{tbl} Take 1 [facility] n[facility] -acetaminop 9-22 10-16 tablet by it y of hen (NORCO) 00:00: 00:00 mouth [place] 5-325 mg 00 :00 every 6 Medical tablet (six) Branch hours as needed for Pain (scale 7-10). Indication s: acute pain acetaminoph 2019-0 2020- No [id number] 1{tbl} Take 1 [facility] n[facility] en-codeine 9-22 09-25 tablet by it[facility] of (TYLENOL-CO 00:00: 00:00 mouth [place] DEINE #3) 00 :00 every 6 Medical 300-30 mg (six) Branch tablet hours as needed for Pain (scale 4-6). Indication s: chronic pain amoxicillin 2019-0 Yes [id number] 1{tbl} Take 1 [facility] -clavulanat 9-13 tablet by ity of e 00:00: mouth 2 [place] (AUGMENTIN) 00 (two) Medical 875-125 mg times Branch per tablet daily. atorvastati 2020-0 Yes [id number] 20mg Take 1 [facility] n 20 mg 9-13 tablet by ity of tablet 00:00: mouth at [place] [address] bedtime. Medical Branch carvediloL 2020-0 Yes [id number] 12.5mg Take 1 [facility] 12.5 mg 9-13 tablet by ity of tablet 00:00: mouth 2 [place] 00 (two) Medical times Branch daily with meals. aspirin 81 2020-0 Yes [id number] 81mg Take 1 [facility] mg chewable 9-13 tablet by ity of tablet 00:00: mouth [place] 00 daily. Medical Branch amoxicillin 2020-0 Yes [id number] 1{tbl} Take 1 [facility] -clavulanat 9-13 tablet by ity of e 00:00: mouth 2 [place] (AUGMENTIN) 00 (two) Medical 875-125 mg times Branch per tablet daily. atorvastati 2020-0 Yes [id number] 20mg Take 1 [facility] n 20 mg 9-13 tablet by ity of tablet 00:00: mouth at [place] 00 bedtime. Medical Branch carvediloL 2020-0 Yes [id number] 12.5mg Take 1 [facility] 12.5 mg 9-13 tablet by ity of tablet 00:00: mouth 2 (two) Medical times Branch daily with meals. aspirin 81 2020-0 Yes [id number] 81mg Take 1 [facility] mg chewable 9-13 tablet by ity of tablet 00:00: mouth [place] 00 daily. Medical Branch amoxicillin 2020-0 Yes [id number] 1{tbl} Take 1 [facility] -clavulanat 9-13 tablet by ity of e 00:00: mouth 2 (AUGMENTIN) 00 (two) Medical 875-125 mg times Branch per tablet daily. atorvastati 2020-0 Yes [id number] 20mg Take 1 [facility] n 20 mg 9-13 tablet by ity of tablet 00:00: mouth at [place] 00 bedtime. Medical Branch carvediloL 2020-0 Yes [id number] 12.5mg Take 1 [facility] 12.5 mg 9-13 tablet by ity of tablet 00:00: mouth 2 (two) Medical times Branch daily with meals. aspirin 81 2020-0 Yes [id number] 81mg Take 1 [facility] mg chewable 9-13 tablet by ity of tablet 00:00: mouth 00 daily. Medical Branch amoxicillin 2020-0 Yes [id number] 1{tbl} Take 1 [facility] -clavulanat 9-13 tablet by ity of e 00:00: mouth 2 [place] (AUGMENTIN) 00 (two) Medical 875-125 mg times Branch per tablet daily. atorvastati 2020-0 Yes [id number] 20mg Take 1 [facility] n 20 mg 9-13 tablet by ity of tablet 00:00: mouth at [place] 00 bedtime. Medical Branch carvediloL 2020-0 Yes [id number] 12.5mg Take 1 [facility] 12.5 mg 9-13 tablet by [facility]y of tablet 00:00: mouth 2 (two) Medical times Branch daily with meals. aspirin 81 2020-0 Yes [id number] 81mg Take 1 [facility] mg chewable 9-13 tablet by [facility]y of tablet 00:00: mouth [place] 00 daily. Medical Branch amoxicillin 2020-0 Yes [id number] 1{tbl} Take 1 [facility] -clavulanat 9-13 tablet by ity of e 00:00: mouth 2 [place] (AUGMENTIN) 00 (two) Medical 875-125 mg times Branch per tablet daily. atorvastati 2020-0 Yes [id number] 20mg Take 1 [facility] n 20 mg 9-13 tablet by ity of tablet 00:00: mouth at [place] 00 bedtime. Medical Branch carvediloL 2020-0 Yes [id number] 12.5mg Take 1 [facility] 12.5 mg 9-13 tablet by [facility]y of tablet 00:00: mouth 2 00 (two) Medical times Branch daily with meals. aspirin 81 2020-0 Yes [id number] 81mg Take 1 [facility] mg chewable 9-13 tablet by ity of tablet 00:00: mouth [place] 00 daily. Medical Branch amoxicillin 2020-0 Yes [id number] 1{tbl} Take 1 [facility] -clavulanat 9-13 tablet by ity of e 00:00: mouth 2 [place] (AUGMENTIN) 00 (two) Medical 875-125 mg times Branch per tablet daily. atorvastati 2020-0 Yes [id number] 20mg Take 1 [facility] n 20 mg 9-13 tablet by [facility] of tablet 00:00: mouth at [place] 00 bedtime. Medical Branch carvediloL 2020-0 Yes [id number] 12.5mg Take 1 [facility] 12.5 mg 9-13 tablet by [facility]y of tablet 00:00: mouth 2 [place] (two) Medical times Branch daily with meals. aspirin 81 2020-0 Yes [id number] 81mg Take 1 [facility] mg chewable 9-13 tablet by [facility]y of tablet 00:00: mouth [place] 00 daily. Medical Branch amoxicillin 2020-0 Yes [id number] 1{tbl} Take 1 [facility] -clavulanat 9-13 tablet by ity of e 00:00: mouth 2 [place] (AUGMENTIN) 00 (two) Medical 875-125 mg times Branch per tablet daily. atorvastati 2020-0 Yes [id number] 20mg Take 1 [facility] n 20 mg 9-13 tablet by ity of tablet 00:00: mouth at [place] 00 bedtime. Medical Branch carvediloL 2020-0 Yes [id number] 12.5mg Take 1 [facility] 12.5 mg 9-13 tablet by [facility]y of tablet 00:00: mouth 2 [place] 00 (two) Medical times Branch daily with meals. aspirin 81 2020-0 Yes [id number] 81mg Take 1 [facility] mg chewable 9-13 tablet by ity of tablet 00:00: mouth [place] 00 daily. Medical Branch HYDROcodone 2020-0 Yes [id number] 1{tbl} Take 1 [facility] davy -acetaminop 9-13 tablet by [facility] of hen (NORCO) 00:00: mouth [place] 5-325 mg 00 every 6 Medical tablet (six) Branch hours as needed for Pain (scale 7-10). Indication s: acute pain amoxicillin 2020-0 Yes [id number] 1{tbl} Take 1 [facility] -clavulanat 9-13 tablet by ity of e 00:00: mouth 2 [place] (AUGMENTIN) 00 (two) Medical 875-125 mg times Branch per tablet daily. atorvastati 2020-0 Yes [id number] 20mg Take 1 [facility] n 20 mg 9-13 tablet by ity of tablet 00:00: mouth at [place] 00 bedtime. Medical Branch carvediloL 2020-0 Yes [id number] 12.5mg Take 1 [facility] 12.5 mg 9-13 tablet by ity of tablet 00:00: mouth 2 [place] 00 (two) Medical times Branch daily with meals. aspirin 81 2020-0 Yes [id number] 81mg Take 1 [facility] mg chewable 9-13 tablet by [facility]y of tablet 00:00: mouth [place] 00 daily. Medical Branch HYDROcodone 2020-0 Yes [id number] 1{tbl} Take 1 [facility] davy -acetaminop 9-13 tablet by [facility] of hen (NORCO) 00:00: mouth [place] 5-325 mg 00 every 6 Medical tablet (six) Branch hours as needed for Pain (scale 7-10). Indication s: acute pain amoxicillin 2020-0 Yes [id number] 1{tbl} Take 1 [facility] -clavulanat 9-13 tablet by ity of e 00:00: mouth 2 [place] (AUGMENTIN) 00 (two) Medical 875-125 mg times Branch per tablet daily. atorvastati 2020-0 Yes [id number] 20mg Take 1 [facility] n 20 mg 9-13 tablet by ity of tablet 00:00: mouth at [place] 00 bedtime. Medical Branch carvediloL 2020-0 Yes [id number] 12.5mg Take 1 [facility] 12.5 mg 9-13 tablet by [facility]y of tablet 00:00: mouth 2 [place] 00 (two) Medical times Branch daily with meals. amoxicillin 2020-0 Yes [id number] 1{tbl} Take 1 [facility] -clavulanat 9-13 tablet by ity of e 00:00: mouth 2 [place] (AUGMENTIN) 00 (two) Medical 875-125 mg times Branch per tablet daily. aspirin 81 2020-0 Yes [id number] 81mg Take 1 [facility] mg chewable 9-13 tablet by ity of tablet 00:00: mouth [place] 00 daily. Medical Branch amoxicillin 2020-0 Yes [id number] 1{tbl} Take 1 [facility] -clavulanat 9-13 tablet by ity of e 00:00: mouth 2 [place] (AUGMENTIN) 00 (two) Medical 875-125 mg times Branch per tablet daily. atorvastati 2020-0 Yes [id number] 20mg Take 1 [facility] n 20 mg 9-13 tablet by ity of tablet 00:00: mouth at [place] 00 bedtime. Medical Branch atorvastati 2020-0 Yes [id number] 20mg Take 1 [facility] n 20 mg 9-13 tablet by ity of tablet 00:00: mouth at [place] 00 bedtime. Medical Branch carvediloL 2020-0 Yes [id number] 12.5mg Take 1 [facility] 12.5 mg 9-13 tablet by ity of tablet 00:00: mouth 2 [place] 00 (two) Medical times Branch daily with meals. aspirin 81 2020-0 Yes [id number] 81mg Take 1 [facility] mg chewable 9-13 tablet by [facility]y of tablet 00:00: mouth [place] 00 daily. Medical Branch carvediloL 2020-0 Yes [id number] 12.5mg Take 1 [facility] 12.5 mg 9-13 tablet by ity of tablet 00:00: mouth 2 [place] 00 (two) Medical times Branch daily with meals. aspirin 81 2020-0 Yes [id number] 81mg Take 1 [facility] mg chewable 9-13 tablet by ity of tablet 00:00: mouth [place] 00 daily. Medical Branch amoxicillin 2020-0 Yes [id number] 1{tbl} Take 1 [facility] -clavulanat 9-13 tablet by ity of e 00:00: mouth 2 [place] (AUGMENTIN) 00 (two) Medical 875-125 mg times Branch per tablet daily. atorvastati 2020-0 Yes [id number] 20mg Take 1 [facility] n 20 mg 9-13 tablet by [facility]y of tablet 00:00: mouth at [place] 00 bedtime. Medical Branch carvediloL 2020-0 Yes [id number] 12.5mg Take 1 [facility] 12.5 mg 9-13 tablet by [facility]y of tablet 00:00: mouth 2 00 (two) Medical times Branch daily with meals. aspirin 81 2020-0 Yes [id number] 81mg Take 1 [facility] mg chewable 9-13 tablet by [facility]y of tablet 00:00: mouth [place] 00 daily. Medical Branch amoxicillin 2020-0 Yes [id number] 1{tbl} Take 1 [facility] -clavulanat 9-13 tablet by ity of e 00:00: mouth 2 [place] (AUGMENTIN) 00 (two) Medical 875-125 mg times Branch per tablet daily. atorvastati 2020-0 Yes [id number] 20mg Take 1 [facility] n 20 mg 9-13 tablet by [facility] of tablet 00:00: mouth at [place] 00 bedtime. Medical Branch carvediloL 2020-0 Yes [id number] 12.5mg Take 1 [facility] 12.5 mg 9-13 tablet by ity of tablet 00:00: mouth 2 [place] (two) Medical times Branch daily with meals. aspirin 81 2020-0 Yes [id number] 81mg Take 1 [facility] mg chewable 9-13 tablet by [facility]y of tablet 00:00: mouth [place] 00 daily. Medical Branch amoxicillin 2020-0 Yes [id number] 1{tbl} Take 1 [facility] -clavulanat 9-13 tablet by ity of e 00:00: mouth 2 [place] (AUGMENTIN) 00 (two) Medical 875-125 mg times Branch per tablet daily. atorvastati 2020-0 Yes [id number] 20mg Take 1 [facility] n 20 mg 9-13 tablet by [facility] tablet 00:00: mouth at [place] 00 bedtime. Medical Branch carvediloL 2020-0 Yes [id number] 12.5mg Take 1 [facility] 12.5 mg 9-13 tablet by [facility] of tablet 00:00: mouth 2 [place] (two) Medical times Branch daily with meals. aspirin 81 2020-0 Yes [id number] 81mg Take 1 [facility] mg chewable 9-13 tablet by [facility] of tablet 00:00: mouth [place] 00 daily. Medical Branch amoxicillin 2020-0 Yes [id number] 1{tbl} Take 1 [facility] -clavulanat 9-13 tablet by [facility] of e 00:00: mouth 2 [place] (AUGMENTIN) 00 (two) Medical 875-125 mg times Branch per tablet daily. atorvastati 2020-0 Yes [id number] 20mg Take 1 [facility] n 20 mg 9-13 tablet by [facility] of tablet 00:00: mouth at [place] 00 bedtime. Medical Branch carvediloL 2020-0 Yes [id number] 12.5mg Take 1 [facility] 12.5 mg 9-13 tablet by [facility] of tablet 00:00: mouth 2 [place] 00 (two) Medical times Branch daily with meals. aspirin 81 2020-0 Yes [id number] 81mg Take 1 [facility] mg chewable 9-13 tablet by [facility] of tablet 00:00: mouth [place] 00 daily. Medical Branch amoxicillin 2020-0 Yes [id number] 1{tbl} Take 1 [facility] -clavulanat 9-13 tablet by [facility] of e 00:00: mouth 2 [place] (AUGMENTIN) 00 (two) Medical 875-125 mg times Branch per tablet daily. atorvastati 2020-0 Yes [id number] 20mg Take 1 [facility] n 20 mg 9-13 tablet by [facility] of tablet 00:00: mouth at [place] 00 bedtime. Medical Branch carvediloL 2020-0 Yes [id number] 12.5mg Take 1 [facility] 12.5 mg 9-13 tablet by [facility] of tablet 00:00: mouth 2 [place] (two) Medical times Branch daily with meals. aspirin 81 2020-0 Yes [id number] 81mg Take 1 [facility] mg chewable 9-13 tablet by [facility] of tablet 00:00: mouth [place] 00 daily. Medical Branch amoxicillin 2020-0 Yes [id number] 1{tbl} Take 1 [facility] -clavulanat 9-13 tablet by [facility] of e 00:00: mouth 2 [place] (AUGMENTIN) 00 (two) Medical 875-125 mg times Branch per tablet daily. atorvastati 2020-0 Yes [id number] 20mg Take 1 [facility] n 20 mg 9-13 tablet by [facility] of tablet 00:00: mouth at [place] 00 bedtime. Medical Branch carvediloL 2020-0 Yes [id number] 12.5mg Take 1 [facility] 12.5 mg 9-13 tablet by [facility] of tablet 00:00: mouth 2 [place] 00 (two) Medical times Branch daily with meals. aspirin 81 2020-0 Yes [id number] 81mg Take 1 [facility] mg chewable 9-13 tablet by [facility] of tablet 00:00: mouth [place] 00 daily. Medical Branch amoxicillin 2020-0 Yes [id number] 1{tbl} Take 1 [facility] -clavulanat 9-13 tablet by [facility] of e 00:00: mouth 2 [place] (AUGMENTIN) 00 (two) Medical 875-125 mg times Branch per tablet daily. atorvastati 2020-0 Yes [id number] 20mg Take 1 [facility] n 20 mg 9-13 tablet by [facility] of tablet 00:00: mouth at [place] 00 bedtime. Medical Branch carvediloL 2020-0 Yes [id number] 12.5mg Take 1 [facility] 12.5 mg 9-13 tablet by [facility] of tablet 00:00: mouth 2 [place] 00 (two) Medical times Branch daily with meals. aspirin 81 2020-0 Yes [id number] 81mg Take 1 [facility] mg chewable 9-13 tablet by [facility] of tablet 00:00: mouth [place] 00 daily. Medical Branch amoxicillin 2020-0 Yes [id number] 1{tbl} Take 1 [facility] -clavulanat 9-13 tablet by [facility] of e 00:00: mouth 2 [place] (AUGMENTIN) 00 (two) Medical 875-125 mg times Branch per tablet daily. atorvastati 2020-0 Yes [id number] 20mg Take 1 [facility] n 20 mg 9-13 tablet by [facility] of tablet 00:00: mouth at [place] 00 bedtime. Medical Branch carvediloL 2020-0 Yes [id number] 12.5mg Take 1 [facility] 12.5 mg 9-13 tablet by [facility] of tablet 00:00: mouth 2 [place] 00 (two) Medical times Branch daily with meals. aspirin 81 2020-0 Yes [id number] 81mg Take 1 [facility] mg chewable 9-13 tablet by [facility] of tablet 00:00: mouth [place] 00 daily. Medical Branch amoxicillin 2020-0 Yes [id number] 1{tbl} Take 1 [facility] -clavulanat 9-13 tablet by [facility] of e 00:00: mouth 2 [place] (AUGMENTIN) 00 (two) Medical 875-125 mg times Branch per tablet daily. atorvastati 2020-0 Yes [id number] 20mg Take 1 [facility] n 20 mg 9-13 tablet by [facility] of tablet 00:00: mouth at [place] 00 bedtime. Medical Branch carvediloL 2020-0 Yes [id number] 12.5mg Take 1 [facility] 12.5 mg 9-13 tablet by [facility] of tablet 00:00: mouth 2 (two) Medical times Branch daily with meals. aspirin 81 2020-0 Yes [id number] 81mg Take 1 [facility] mg chewable 9-13 tablet by [facility] of tablet 00:00: mouth [place] 00 daily. Medical Branch amoxicillin 2020-0 Yes [id number] 1{tbl} Take 1 [facility] -clavulanat 9-13 tablet by [facility] of e 00:00: mouth 2 [place] (AUGMENTIN) 00 (two) Medical 875-125 mg times Branch per tablet daily. atorvastati 2020-0 Yes [id number] 20mg Take 1 [facility] n 20 mg 9-13 tablet by [facility] of tablet 00:00: mouth at [place] 00 bedtime. Medical Branch carvediloL 2020-0 Yes [id number] 12.5mg Take 1 [facility] 12.5 mg 9-13 tablet by [facility] of tablet 00:00: mouth 2 (two) Medical times Branch daily with meals. aspirin 81 2020-0 Yes [id number] 81mg Take 1 [facility] mg chewable 9-13 tablet by [facility] of tablet 00:00: mouth [place] 00 daily. Medical Branch amoxicillin 2020-0 Yes [id number] 1{tbl} Take 1 [facility] -clavulanat 9-13 tablet by [facility] of e 00:00: mouth 2 [place] (AUGMENTIN) 00 (two) Medical 875-125 mg times Branch per tablet daily. atorvastati 2020-0 Yes [id number] 20mg Take 1 [facility] n 20 mg 9-13 tablet by [facility] of tablet 00:00: mouth at [place] 00 bedtime. Medical [facility] carvediloL 2020-0 Yes [id number] 12.5mg Take 1 [facility] 12.5 mg 9-13 tablet by [facility] of tablet 00:00: mouth 2 (two) Medical times Branch daily with meals. aspirin 81 2020-0 Yes [id number] 81mg Take 1 [facility] mg chewable 9-13 tablet by [facility] of tablet 00:00: mouth [place] 00 daily. Medical Branch amoxicillin 2020-0 Yes [id number] 1{tbl} Take 1 [facility] -clavulanat 9-13 tablet by [facility] of e 00:00: mouth 2 ([facility]MENT[place]) 00 (two) Medical 875-125 mg times Branch per tablet daily. atorvastati 2020-0 Yes [id number] 20mg Take 1 [facility] n 20 mg 9-13 tablet by [facility] of tablet 00:00: mouth at [place] 00 bedtime. Medical [facility] carvediloL 2020-0 Yes [id number] 12.5mg Take 1 [facility] 12.5 mg 9-13 tablet by [facility] of tablet 00:00: mouth 2 00 (two) Medical times Branch daily with meals. aspirin 81 2020-0 Yes [id number] 81mg Take 1 [facility] mg chewable 9-13 tablet by [facility] of tablet 00:00: mouth [place] 00 daily. Medical Branch amoxicillin 2020-0 Yes [id number] 1{tbl} Take 1 [facility] -clavulanat 9-13 tablet by [facility] of e 00:00: mouth 2 [place] (AUGMENTIN) 00 (two) Medical 875-125 mg times Branch per tablet daily. atorvastati 2020-0 Yes [id number] 20mg Take 1 [facility] n 20 mg 9-13 tablet by [facility] of tablet 00:00: mouth at [place] 00 bedtime. Medical Branch carvediloL 2020-0 Yes [id number] 12.5mg Take 1 [facility] 12.5 mg 9-13 tablet by [facility] of tablet 00:00: mouth 2 (two) Medical times Branch daily with meals. aspirin 81 2020-0 Yes [id number] 81mg Take 1 [facility] mg chewable 9-13 tablet by [facility] of tablet 00:00: mouth [place] 00 daily. Medical Branch amoxicillin 2020-0 Yes [id number] 1{tbl} Take 1 [facility] -clavulanat 9-13 tablet by [facility] of e 00:00: mouth 2 [place] (AUGMENTIN) 00 (two) Medical 875-125 mg times Branch per tablet daily. atorvastati 2020-0 Yes [id number] 20mg Take 1 [facility] n 20 mg 9-13 tablet by [facility] of tablet 00:00: mouth at [place] 00 bedtime. Medical Branch carvediloL 2020-0 Yes [id number] 12.5mg Take 1 [facility] 12.5 mg 9-13 tablet by [facility] of tablet 00:00: mouth 2 00 (two) Medical times Branch daily with meals. aspirin 81 2020-0 Yes [id number] 81mg Take 1 [facility] mg chewable 9-13 tablet by [facility] of tablet 00:00: mouth [place] 00 daily. Medical Branch amoxicillin 2020-0 Yes [id number] 1{tbl} Take 1 [facility] -clavulanat 9-13 tablet by [facility] of e 00:00: mouth 2 [place] (AUGMENTIN) 00 (two) Medical 875-125 mg times Branch per tablet daily. atorvastati 2020-0 Yes [id number] 20mg Take 1 [facility] n 20 mg 9-13 tablet by [facility] of tablet 00:00: mouth at [place] 00 bedtime. Medical Branch carvediloL 2020-0 Yes [id number] 12.5mg Take 1 [facility] 12.5 mg 9-13 tablet by [facility] of tablet 00:00: mouth 2 00 (two) Medical times Branch daily with meals. aspirin 81 2020-0 Yes [id number] 81mg Take 1 [facility] mg chewable 9-13 tablet by [facility] of tablet 00:00: mouth [place] 00 daily. Medical Branch amoxicillin 2020-0 Yes [id number] 1{tbl} Take 1 [facility] -clavulanat 9-13 tablet by [facility] of e 00:00: mouth 2 [place] (AUGMENTIN) 00 (two) Medical 875-125 mg times Branch per tablet daily. atorvastati 2020-0 Yes [id number] 20mg Take 1 [facility] n 20 mg 9-13 tablet by [facility] of tablet 00:00: mouth at [place] 00 bedtime. Medical Branch carvediloL 2020-0 Yes [id number] 12.5mg Take 1 [facility] 12.5 mg 9-13 tablet by [facility] of tablet 00:00: mouth 2 00 (two) Medical times Branch daily with meals. aspirin 81 2020-0 Yes [id number] 81mg Take 1 [facility] mg chewable 9-13 tablet by [facility] of tablet 00:00: mouth [place] 00 daily. Medical Branch amoxicillin 2020-0 Yes [id number] 1{tbl} Take 1 [facility] -clavulanat 9-13 tablet by [facility] of e 00:00: mouth 2 [place] (AUGMENTIN) 00 (two) Medical 875-125 mg times Branch per tablet daily. atorvastati 2020-0 Yes [id number] 20mg Take 1 [facility] n 20 mg 9-13 tablet by [facility] of tablet 00:00: mouth at [place] 00 bedtime. Medical [facility] carvediloL 2020-0 Yes [id number] 12.5mg Take 1 [facility] 12.5 mg 9-13 tablet by [facility] of tablet 00:00: mouth 2 (two) Medical times Branch daily with meals. aspirin 81 2020-0 Yes [id number] 81mg Take 1 [facility] mg chewable 9-13 tablet by [facility] of tablet 00:00: mouth [place] 00 daily. Medical Branch amoxicillin 2020-0 Yes [id number] 1{tbl} Take 1 [facility] -clavulanat 9-13 tablet by [facility] of e 00:00: mouth 2 [place] (AUGMENTIN) 00 (two) Medical 875-125 mg times Branch per tablet daily. atorvastati 2020-0 Yes [id number] 20mg Take 1 [facility] n 20 mg 9-13 tablet by [facility] of tablet 00:00: mouth at [place] 00 bedtime. Medical Branch carvediloL 2020-0 Yes [id number] 12.5mg Take 1 [facility] 12.5 mg 9-13 tablet by [facility] of tablet 00:00: mouth 2 [place] (two) Medical times Branch daily with meals. aspirin 81 2020-0 Yes [id number] 81mg Take 1 [facility] mg chewable 9-13 tablet by [facility] of tablet 00:00: mouth [place] 00 daily. Medical Branch amoxicillin 2020-0 Yes [id number] 1{tbl} Take 1 [facility] -clavulanat 9-13 tablet by [facility] of e 00:00: mouth 2 [place] (AUGMENTIN) 00 (two) Medical 875-125 mg times Branch per tablet daily. atorvastati 2020-0 Yes [id number] 20mg Take 1 [facility] n 20 mg 9-13 tablet by [facility] of tablet 00:00: mouth at [place] 00 bedtime. Medical Branch carvediloL 2020-0 Yes [id number] 12.5mg Take 1 [facility] 12.5 mg 9-13 tablet by [facility] of tablet 00:00: mouth 2 [place] (two) Medical times Branch daily with meals. aspirin 81 2020-0 Yes [id number] 81mg Take 1 [facility] mg chewable 9-13 tablet by [facility] of tablet 00:00: mouth [place] 00 daily. Medical Branch amoxicillin 2020-0 Yes [id number] 1{tbl} Take 1 [facility] -clavulanat 9-13 tablet by [facility] of e 00:00: mouth 2 ([place]) 00 (two) Medical 875-125 mg times Branch per tablet daily. atorvastati 2020-0 Yes [id number] 20mg Take 1 [facility] n 20 mg 9-13 tablet by [facility] of tablet 00:00: mouth at [place] 00 bedtime. Medical Branch carvediloL 2020-0 Yes [id number] 12.5mg Take 1 [facility] 12.5 mg 9-13 tablet by [facility] of tablet 00:00: mouth 2 00 (two) Medical times Branch daily with meals. aspirin 81 2020-0 Yes [id number] 81mg Take 1 [facility] mg chewable 9-13 tablet by [facility] of tablet 00:00: mouth [place] 00 daily. Medical Branch amoxicillin 2020-0 Yes [id number] 1{tbl} Take 1 [facility] -clavulanat 9-13 tablet by [facility] of e 00:00: mouth 2 [place] (AUGMENTIN) 00 (two) Medical 875-125 mg times Branch per tablet daily. atorvastati 2020-0 Yes [id number] 20mg Take 1 [facility] n 20 mg 9-13 tablet by [facility] of tablet 00:00: mouth at [place] 00 bedtime. Medical Branch carvediloL 2020-0 Yes [id number] 12.5mg Take 1 [facility] 12.5 mg 9-13 tablet by [facility] of tablet 00:00: mouth 2 [place] (two) Medical times Branch daily with meals. aspirin 81 2020-0 Yes [id number] 81mg Take 1 [facility] mg chewable 9-13 tablet by [facility] of tablet 00:00: mouth [place] 00 daily. Medical Branch amoxicillin 2020-0 Yes [id number] 1{tbl} Take 1 [facility] -clavulanat 9-13 tablet by [facility] of e 00:00: mouth 2 [place] (AUGMENTIN) 00 (two) Medical 875-125 mg times Branch per tablet daily. atorvastati 2020-0 Yes [id number] 20mg Take 1 [facility] n 20 mg 9-13 tablet by [facility] of tablet 00:00: mouth at [place] 00 bedtime. Medical Branch carvediloL 2020-0 Yes [id number] 12.5mg Take 1 [facility] 12.5 mg 9-13 tablet by [facility] of tablet 00:00: mouth 2 [place] 00 (two) Medical times Branch daily with meals. aspirin 81 2020-0 Yes [id number] 81mg Take 1 [facility] mg chewable 9-13 tablet by [facility] of tablet 00:00: mouth [place] 00 daily. Medical Branch amoxicillin 2020-0 Yes [id number] 1{tbl} Take 1 [facility] -clavulanat 9-13 tablet by [facility] of e 00:00: mouth 2 ([facility]MENT[place]) 00 (two) Medical 875-125 mg times Branch per tablet daily. atorvastati 2020-0 Yes [id number] 20mg Take 1 [facility] n 20 mg 9-13 tablet by [facility] of tablet 00:00: mouth at [place] 00 bedtime. Medical Branch carvediloL 2020-0 Yes [id number] 12.5mg Take 1 [facility] 12.5 mg 9-13 tablet by [facility] of tablet 00:00: mouth 2 (two) Medical times Branch daily with meals. aspirin 81 2020-0 Yes [id number] 81mg Take 1 [facility] mg chewable 9-13 tablet by [facility] of tablet 00:00: mouth [place] 00 daily. Medical Branch amoxicillin 2020-0 Yes [id number] 1{tbl} Take 1 [facility] -clavulanat 9-13 tablet by [facility] of e 00:00: mouth 2 ([place]) 00 (two) Medical 875-125 mg times Branch per tablet daily. atorvastati 2020-0 Yes [id number] 20mg Take 1 [facility] n 20 mg 9-13 tablet by [facility] of tablet 00:00: mouth at [place] 00 bedtime. Medical Branch carvediloL 2020-0 Yes [id number] 12.5mg Take 1 [facility] 12.5 mg 9-13 tablet by [facility] of tablet 00:00: mouth 2 (two) Medical times Branch daily with meals. aspirin 81 2020-0 Yes [id number] 81mg Take 1 [facility] mg chewable 9-13 tablet by [facility] of tablet 00:00: mouth [place] 00 daily. Medical Branch amoxicillin 2020-0 Yes [id number] 1{tbl} Take 1 [facility] -clavulanat 9-13 tablet by [facility] of e 00:00: mouth 2 [place] (AUGMENTIN) 00 (two) Medical 875-125 mg times Branch per tablet daily. atorvastati 2020-0 Yes [id number] 20mg Take 1 [facility] n 20 mg 9-13 tablet by [facility] of tablet 00:00: mouth at [place] 00 bedtime. Medical Branch carvediloL 2020-0 Yes [id number] 12.5mg Take 1 [facility] 12.5 mg 9-13 tablet by [facility] of tablet 00:00: mouth 2 (two) Medical times Branch daily with meals. aspirin 81 2020-0 Yes [id number] 81mg Take 1 [facility] mg chewable 9-13 tablet by [facility] of tablet 00:00: mouth [place] 00 daily. Medical Branch amoxicillin 2020-0 Yes [id number] 1{tbl} Take 1 [facility] -clavulanat 9-13 tablet by [facility] of e 00:00: mouth 2 ([place]) 00 (two) Medical 875-125 mg times Branch per tablet daily. atorvastati 2020-0 Yes [id number] 20mg Take 1 [facility] n 20 mg 9-13 tablet by [facility] of tablet 00:00: mouth at [place] 00 bedtime. Medical [facility] carvediloL 2020-0 Yes [id number] 12.5mg Take 1 [facility] 12.5 mg 9-13 tablet by [facility] of tablet 00:00: mouth 2 (two) Medical times Branch daily with meals. aspirin 81 2020-0 Yes [id number] 81mg Take 1 [facility] mg chewable 9-13 tablet by [facility] of tablet 00:00: mouth 00 daily. Medical Branch amoxicillin 2020-0 Yes [id number] 1{tbl} Take 1 [facility] -clavulanat 9-13 tablet by [facility] of e 00:00: mouth 2 [place] (AUGMENTIN) 00 (two) Medical 875-125 mg times Branch per tablet daily. atorvastati 2020-0 Yes [id number] 20mg Take 1 [facility] n 20 mg 9-13 tablet by [facility] of tablet 00:00: mouth at [place] 00 bedtime. Medical Branch carvediloL 2020-0 Yes [id number] 12.5mg Take 1 [facility] 12.5 mg 9-13 tablet by [facility] of tablet 00:00: mouth 2 (two) Medical times Branch daily with meals. aspirin 81 2020-0 Yes [id number] 81mg Take 1 [facility] mg chewable 9-13 tablet by [facility] of tablet 00:00: mouth [place] 00 daily. Medical Branch amoxicillin 2020-0 Yes [id number] 1{tbl} Take 1 [facility] -clavulanat 9-13 tablet by [facility] of e 00:00: mouth 2 [place] (AUGMENTIN) 00 (two) Medical 875-125 mg times Branch per tablet daily. atorvastati 2020-0 Yes [id number] 20mg Take 1 [facility] n 20 mg 9-13 tablet by [facility] of tablet 00:00: mouth at [place] 00 bedtime. Medical Branch carvediloL 2020-0 Yes [id number] 12.5mg Take 1 [facility] 12.5 mg 9-13 tablet by [facility] of tablet 00:00: mouth 2 00 (two) Medical times Branch daily with meals. aspirin 81 2020-0 Yes [id number] 81mg Take 1 [facility] mg chewable 9-13 tablet by [facility] of tablet 00:00: mouth [place] 00 daily. Medical Branch amoxicillin 2020-0 Yes [id number] 1{tbl} Take 1 [facility] -clavulanat 9-13 tablet by [facility] of e 00:00: mouth 2 [place] (AUGMENTIN) 00 (two) Medical 875-125 mg times Branch per tablet daily. atorvastati 2020-0 Yes [id number] 20mg Take 1 [facility] n 20 mg 9-13 tablet by [facility] of tablet 00:00: mouth at [place] 00 bedtime. Medical Branch carvediloL 2020-0 Yes [id number] 12.5mg Take 1 [facility] 12.5 mg 9-13 tablet by [facility] of tablet 00:00: mouth 2 [place] (two) Medical times Branch daily with meals. aspirin 81 2020-0 Yes [id number] 81mg Take 1 [facility] mg chewable 9-13 tablet by [facility] of tablet 00:00: mouth [place] 00 daily. Medical Branch amoxicillin 2020-0 Yes [id number] 1{tbl} Take 1 [facility] -clavulanat 9-13 tablet by [facility] of e 00:00: mouth 2 [place] (AUGMENTIN) 00 (two) Medical 875-125 mg times Branch per tablet daily. atorvastati 2020-0 Yes [id number] 20mg Take 1 [facility] n 20 mg 9-13 tablet by [facility] of tablet 00:00: mouth at [place] 00 bedtime. Medical [facility] carvediloL 2020-0 Yes [id number] 12.5mg Take 1 [facility] 12.5 mg 9-13 tablet by [facility] of tablet 00:00: mouth 2 [place] 00 (two) Medical times Branch daily with meals. aspirin 81 2020-0 Yes [id number] 81mg Take 1 [facility] mg chewable 9-13 tablet by [facility] of tablet 00:00: mouth [place] 00 daily. Medical Branch amoxicillin 2020-0 Yes [id number] 1{tbl} Take 1 [facility] -clavulanat 9-13 tablet by [facility] of e 00:00: mouth 2 ([place]) 00 (two) Medical 875-125 mg times Branch per tablet daily. atorvastati 2020-0 Yes [id number] 20mg Take 1 [facility] n 20 mg 9-13 tablet by [facility] of tablet 00:00: mouth at [place] 00 bedtime. Medical [facility] carvediloL 2020-0 Yes [id number] 12.5mg Take 1 [facility] 12.5 mg 9-13 tablet by [facility] of tablet 00:00: mouth 2 (two) Medical times Branch daily with meals. aspirin 81 2020-0 Yes [id number] 81mg Take 1 [facility] mg chewable 9-13 tablet by [facility] of tablet 00:00: mouth 00 daily. Medical Branch amoxicillin 2020-0 Yes [id number] 1{tbl} Take 1 [facility] -clavulanat 9-13 tablet by [facility] of e 00:00: mouth 2 ([facility]) 00 (two) Medical 875-125 mg times Branch per tablet daily. atorvastati 2020-0 Yes [id number] 20mg Take 1 [facility] n 20 mg 9-13 tablet by [facility] of tablet 00:00: mouth at [place] 00 bedtime. Medical [facility] carvediloL 2020-0 Yes [id number] 12.5mg Take 1 [facility] 12.5 mg 9-13 tablet by [facility] of tablet 00:00: mouth 2 (two) Medical times Branch daily with meals. aspirin 81 2020-0 Yes [id number] 81mg Take 1 [facility] mg chewable 9-13 tablet by [facility] of tablet 00:00: mouth [place] 00 daily. Medical Branch amoxicillin 2020-0 Yes [id number] 1{tbl} Take 1 [facility] -clavulanat 9-13 tablet by [facility] of e 00:00: mouth 2 ([place]) 00 (two) Medical 875-125 mg times Branch per tablet daily. atorvastati 2020-0 Yes [id number] 20mg Take 1 [facility] n 20 mg 9-13 tablet by [facility] of tablet 00:00: mouth at [place] 00 bedtime. Medical [facility] carvediloL 2020-0 Yes [id number] 12.5mg Take 1 [facility] 12.5 mg 9-13 tablet by [facility] of tablet 00:00: mouth 2 (two) Medical times Branch daily with meals. aspirin 81 2020-0 Yes [id number] 81mg Take 1 [facility] mg chewable 9-13 tablet by [facility] of tablet 00:00: mouth [place] 00 daily. Medical Branch amoxicillin 2020-0 Yes [id number] 1{tbl} Take 1 [facility] -clavulanat 9-13 tablet by [facility] of e 00:00: mouth 2 [place] (AUGMENTIN) 00 (two) Medical 875-125 mg times Branch per tablet daily. atorvastati 2020-0 Yes [id number] 20mg Take 1 [facility] n 20 mg 9-13 tablet by [facility] of tablet 00:00: mouth at [place] 00 bedtime. Medical Branch carvediloL 2020-0 Yes [id number] 12.5mg Take 1 [facility] 12.5 mg 9-13 tablet by [facility] of tablet 00:00: mouth 2 [place] (two) Medical times Branch daily with meals. aspirin 81 2020-0 Yes [id number] 81mg Take 1 [facility] mg chewable 9-13 tablet by [facility]y of tablet 00:00: mouth 00 daily. Medical Branch amoxicillin 2020-0 Yes [id number] 1{tbl} Take 1 [facility] -clavulanat 9-13 tablet by [facility] of e 00:00: mouth 2 [place] (AUGMENTIN) 00 (two) Medical 875-125 mg times Branch per tablet daily. atorvastati 2020-0 Yes [id number] 20mg Take 1 [facility] n 20 mg 9-13 tablet by [facility]y of tablet 00:00: mouth at [place] 00 bedtime. Medical Branch carvediloL 2020-0 Yes [id number] 12.5mg Take 1 [facility] 12.5 mg 9-13 tablet by [facility]y of tablet 00:00: mouth 2 [place] (two) Medical times Branch daily with meals. aspirin 81 2020-0 Yes [id number] 81mg Take 1 [facility] mg chewable 9-13 tablet by [facility]y of tablet 00:00: mouth [place] 00 daily. Medical Branch amoxicillin 2020-0 Yes [id number] 1{tbl} Take 1 [facility] -clavulanat 9-13 tablet by [facility] of e 00:00: mouth 2 [place] (AUGMENTIN) 00 (two) Medical 875-125 mg times Branch per tablet daily. atorvastati 2020-0 Yes [id number] 20mg Take 1 [facility] n 20 mg 9-13 tablet by [facility] of tablet 00:00: mouth at [place] 00 bedtime. Medical Branch carvediloL 2020-0 Yes [id number] 12.5mg Take 1 [facility] 12.5 mg 9-13 tablet by [facility]y of tablet 00:00: mouth 2 [place] (two) Medical times Branch daily with meals. aspirin 81 2020-0 Yes [id number] 81mg Take 1 [facility] mg chewable 9-13 tablet by [facility]y of tablet 00:00: mouth [place] 00 daily. Medical Branch amoxicillin 2020-0 Yes [id number] 1{tbl} Take 1 [facility] -clavulanat 9-13 tablet by [facility]y of e 00:00: mouth 2 [place] (AUGMENTIN) 00 (two) Medical 875-125 mg times Branch per tablet daily. atorvastati 2020-0 Yes [id number] 20mg Take 1 [facility] n 20 mg 9-13 tablet by [facility] of tablet 00:00: mouth at [place] [address] bedtime. Medical Branch carvediloL 2020-0 Yes [id number] 12.5mg Take 1 [facility] 12.5 mg 9-13 tablet by [facility]y of tablet 00:00: mouth 2 [place] (two) Medical times Branch daily with meals. aspirin 81 2020-0 Yes [id number] 81mg Take 1 [facility] mg chewable 9-13 tablet by [facility]y of tablet 00:00: mouth [place] 00 daily. Medical Branch HYDROcodone 2020- No [id number] 1{tbl} Take 1 [facility] -acetaminop 9-13 -22 tablet by [facility] of [facility] ([facility]) 00:00: 00:00 mouth [place] 5-325 mg 00 :00 every 6 Medical tablet (six) Branch hours as needed for Pain (scale 7-10). Indication s: acute pain HYDROcodone 2019- 2020- No [id number] 1{tbl} Take 1 [facility] -acetaminop 9-13 09-22 tablet by [facility] y of hen (NORCO) 00:00: 00:00 mouth [place] 5-325 mg 00 :00 every 6 Medical tablet (six) Branch hours as needed for Pain (scale 7-10). Indication s: acute pain amoxicillin 2020-0 Yes 1{tbl} 1 tablet, [facility] -clavulanat 12-06 Oral, ity of e 23:00: Q12H, [place] (AUGMENTIN) 00 First dose Me dical 875-125 mg on Thu Branch per tablet 12/07/19 at 1 tablet 1800, Until Discontinu ed, Routine
Reason for Anti-Infec tive: Documented Infection< br>Documen alex Infection Site: Skin / Soft Tissue<br& gt;Duratio n of Therapy: 14 days HYDROcodone 2020-0 Yes 1{tbl} 1 tablet, [facility] -acetaminop 12-06 Oral, Q6H, [facility] of [facility] ([facility]CO 23:00: First dose [place] 5) 5-325 mg 00 (after Medica l tablet 1 last Branch tablet modificati on) on Thu12/07/19 at 1800, Until Discontinu ed, Routine ibuprofen 2020-0 Yes 200mg 200 mg, [facility] ers (MOTRIN IB) 12-06 Oral, ity of tablet 200 20:52: Q6HPRN, [place] mg 13 Starting Medical 12/07/19 Branch at 1552, Until Discontinu ed, Routine, Pain (scale 4-6) amoxicillin 2019-0 2020- No [id number] 1{tbl} Take 1 [facility] -clavulanat 12-06 tablet by it y of e 00:00: 04:59 mouth 2 [place] (AUGMENTIN) 00 :00 (two) Medical 875-125 mg times Branch per tablet daily for 14 days. ibuprofen 2020-0 2020- No [id number] 400mg Take 2 [facility] 200 mg 12-0624 tablets by ity of tablet 00:00: 04:59 mouth [place] 00 :00 every 6 Medical (six) Branch hours as needed for Pain (scale 1-3) or Pain (scale 4-6) for up to 14 days. acetaminoph 2020-0 2020- No [id number] 650mg Take 2 [facility] en 325 mg 12-06-24 tablets by ity of tablet 00:00: 04:59 mouth [place] 00 :00 every 6 Medical (six) Branch hours as needed for Alternate with ibuprofen for pain scale 4-6 for up to 14 days. ibuprofen 2020-0 2020- No [id number] 400mg Take 2 [facility] 200 mg 12-0624 tablets by ity of tablet 00:00: 04:59 mouth [place] 00 :00 every 6 Medical (six) Branch hours as needed for Pain (scale 1-3) or Pain (scale 4-6) for up to 14 days. acetaminoph 2019-0 2019- No [id number] 650mg Take 2 [facility] en 325 mg 12-0624 tablets by ity of tablet 00:00: 04:59 mouth [place] 00 :00 every 6 Medical (six) Branch hours as needed for Alternate with ibuprofen for pain scale 4-6 for up to 14 days. ibuprofen 2019-2019- No [id number] 400mg Take 2 [facility] 200 mg 12-06 tablets by ity of tablet 00:00: 04:59 mouth [place] 00 :00 every 6 Medical (six) Branch hours as needed for Pain (scale 1-3) or Pain (scale 4-6) for up to 14 days. acetaminoph 2019-2019- No [id number] 650mg Take 2 Univers en 325 mg 12-0624 tablets by ity of tablet 00:00: 04:59 mouth [place] 00 :00 every 6 Medical (six) Branch hours as needed for Alternate with ibuprofen for pain scale 4-6 for up to 14 days. ibuprofen 2019-0 2020- No [id number] 400mg Take 2 [facility] 200 mg 12-06 tablets by ity of tablet 00:00: 04:59 mouth [place] 00 :00 every 6 Medical (six) Branch hours as needed for Pain (scale 1-3) or Pain (scale 4-6) for up to 14 days. acetaminoph 2019-0 2019- No [id number] 650mg Take 2 Univers en 325 mg 12-0624 tablets by ity of tablet 00:00: 04:59 mouth [place] 00 :00 every 6 Medical (six) Branch hours as needed for Alternate with ibuprofen for pain scale 4-6 for up to 14 days. ibuprofen 2019-2019- No [id number] 400mg Take 2 [facility] 200 mg 12-0624 tablets by ity of tablet 00:00: 04:59 mouth [place] 00 :00 every 6 Medical (six) Branch hours as needed for Pain (scale 1-3) or Pain (scale 4-6) for up to 14 days. acetaminoph 2019-0 2019- No [id number] 650mg Take 2 [facility] en 325 mg 12-06 tablets by ity of tablet 00:00: 04:59 mouth [place] 00 :00 every 6 Medical (six) Branch hours as needed for Alternate with ibuprofen for pain scale 4-6 for up to 14 days. ibuprofen 2020-0 2019- No [id number] 400mg Take 2 [facility] 200 mg 12-0624 tablets by ity of tablet 00:00: 04:59 mouth [place] 00 :00 every 6 Medical (six) Branch hours as needed for Pain (scale 1-3) or Pain (scale 4-6) for up to 14 days. acetaminoph 2020-0 2019- No [id number] 650mg Take 2 [facility] en 325 mg 12-06 tablets by ity of tablet 00:00: 04:59 mouth [place] 00 :00 every 6 Medical (six) Branch hours as needed for Alternate with ibuprofen for pain scale 4-6 for up to 14 days. ibuprofen 2019-0 2019- No [id number] 400mg Take 2 [facility] 200 mg 12-06 tablets by ity of tablet 00:00: 04:59 mouth [place] 00 :00 every 6 Medical (six) Branch hours as needed for Pain (scale 1-3) or Pain (scale 4-6) for up to 14 days. acetaminoph 2019-0 2019- No [id number] 650mg Take 2 [facility] en 325 mg 12-06 tablets by ity of tablet 00:00: 04:59 mouth [place] 00 :00 every 6 Medical (six) Branch hours as needed for Alternate with ibuprofen for pain scale 4-6 for up to 14 days. ibuprofen 2020-0 2019- No [id number] 400mg Take 2 [facility] 200 mg 12-06 tablets by ity of tablet 00:00: 04:59 mouth [place] 00 :00 every 6 Medical (six) Branch hours as needed for Pain (scale 1-3) or Pain (scale 4-6) for up to 14 days. acetaminoph 2020-0 2019- No [id number] 650mg Take 2 [facility] en 325 mg 12-06 tablets by ity of tablet 00:00: 04:59 mouth [place] 00 :00 every 6 Medical (six) Branch hours as needed for Alternate with ibuprofen for pain scale 4-6 for up to 14 days. ibuprofen 2019-0 2020- No [id number] 400mg Take 2 [facility] 200 mg 12-06 tablets by ity of tablet 00:00: 04:59 mouth [place] 00 :00 every 6 Medical (six) Branch hours as needed for Pain (scale 1-3) or Pain (scale 4-6) for up to 14 days. acetaminoph 2020-0 2020- No [id number] 650mg Take 2 [facility] en 325 mg 12-06 tablets by ity of tablet 00:00: 04:59 mouth [place] 00 :00 every 6 Medical (six) Branch hours as needed for Alternate with ibuprofen for pain scale 4-6 for up to 14 days. amoxicillin 2020-0 2020- No [id number] 1{tbl} Take 1 Univers -clavulanat 12-06 tablet by it y of e 00:00: 04:59 mouth 2 [place] (AUGMENTIN) 00 :00 (two) Medical 875-125 mg times Branch per tablet daily for 14 days. ibuprofen 2020-0 2020- No [id number] 400mg Take 2 [facility] 200 mg 12-06 tablets by ity of tablet 00:00: 04:59 mouth [place] 00 :00 every 6 Medical (six) Branch hours as needed for Pain (scale 1-3) or Pain (scale 4-6) for up to 14 days. acetaminoph 2020-0 2020- No [id number] 650mg Take 2 [facility] en 325 mg 12-06 tablets by ity of tablet 00:00: 04:59 mouth [place] 00 :00 every 6 Medical (six) Branch hours as needed for Alternate with ibuprofen for pain scale 4-6 for up to 14 days. HYDROcodone 2019-0 2019- No [id number] 1{tbl} Take 1 U nivers -acetaminop 12-0615 tablet by it y of hen (NORCO) 00:00: 04:59 mouth [place] 5-325 mg 00 :00 every 6 Medical tablet (six) Branch hours as needed for Pain (scale 7-10) for up to 5 days. Indication s: acute pain HYDROcodone 2019-0 2019- No [id number] 1{tbl} Take 1 U nivers -acetaminop 12-0615 tablet by it y of hen (NORCO) 00:00: 04:59 mouth [place] 5-325 mg 00 :00 every 6 Medical tablet (six) Branch hours as needed for Pain (scale 7-10) for up to 5 days. Indication s: acute pain amoxicillin 2020-0 2020- No [id number] 1{tbl} Take 1 Univers -clavulanat 12-06 tablet by it y of e 00:00: 00:00 mouth 2 [place] (AUGMENTIN) 00 :00 (two) Medical 875-125 mg times Branch per tablet daily for 14 days. HYDROcodone 2019-0 2020- No [id number] 1{tbl} Take 1 U nivers -acetaminop 12-06 tablet by it y of hen (NORCO) 00:00: 00:00 mouth [place] 5-325 mg 00 :00 every 6 Medical tablet (six) Branch hours as needed for Pain (scale 7-10) for up to 5 days. Indication s: acute pain lactated 2020-0 Yes 1000mL at 42 Univer s ringers IV 9-08 mL/hr, ity of infusion 23:15: 1,000 mL, [place] 1,000 mL 00 IV Medical Infusion, Branch CONTINUOUS , Starting 12/06/19 at 1815, Until Discontinu ed, Routine, PACU hydralAZINE 2020-0 Yes 5mg 5 mg, Unive rs (APRESOLINE 12-03 Intravenou it y of ) injection 17:22: s, Q6HPRN, [place] 5 mg 01 Starting Medical 12/04/19 Branch at 1222, Until Discontinu ed, Routine, SBP >160 KCL 2019-0 2020- No 40meq 40 mEq, Univers (KLOR-CON 12-03 Oral, ity of M20) tablet 13:00: 14:03 ONCE, 1 [place] 40 mEq 00 :00 dose, [facility] 12/04/19 at Branch 0800, CHARMAINE insulin 2020-0 Yes 17U 17 Units, Unive rs glargine 12-03 Subcutaneo ity o f (LANTUS 02:00: us, [facility], [place] U-100) 00 First dose Medical injection (after Branch 17 Units last modificati on) on 12/03/19 at 2100, Until Discontinu ed, Routine insulin 2020-0 Yes 6U 6 Units, Univer s aspart 12-02 Subcutaneo ity of RAPID 16:30: us, TIDAC, [place] (NOVOLOG) 00 First dose Medi shade injection 6 (after Branch Units last modificati on) on 12/03/19 at 1130, Until Discontinu ed, Routine ampicillin- 2019-0 2020- No 3g 3 g, IV Un davy sulbactam 12-02 Piggyback, ity of (UNASYN) 3 14:30: 21:50 Q6H ABX, [place] g in NaCl 00 :36 First dose Medi shade 0.9% (NS) on Sat Branch 100 mL 12/03/19 at MINI-BAG 0930, Until Discontinu ed, 100 mL
Reas on for Anti-Infec tive: Documented Infection< br>Documen alex Infection Site: Skin / Soft Tissue< br>Duratio n of Therapy: 7 days lisinopriL 2019-0 Yes 40mg 40 mg, Unive rs (PRINIVIL,Z 12-02 Oral, QPM ity of ESTRIL) 01:00: AT 2000, [place] tablet 40 00 First dose Medi shade mg (after Branch last modificati on) on Thu12/02/19 at 2000, Until Discontinu ed, Routine HYDROcodone 2019-0 2020- No 1{tbl} 1 tablet, Univers -acetaminop 12-01 Oral, ity of hen (NORCO 19:33: 20:50 Q6HPRN, [place] 5) 5-325 mg 48 :39 Starting Medi shade tablet 1 Thu12/02/19 Branc h tablet at 1433, Until Thu12/07/19 at 1550, Routine, Pain (scale 4-6) acetaminoph 2019-0 2020- No 650mg 650 mg, U nivers en 12-01 Oral, ity of (TYLENOL) 19:33: 20:51 Q6HPRN, [place] tablet 650 18 :11 Starting Medic al mg Thu12/02/19 Branch at 1433, Until Thu12/07/19 at 1551, Routine, Pain (scale 1-3) lisinopriL 2019-0 2020- No 20mg 20 mg, Univ ers (PRINIVIL,Z 12-01 Oral, QPM it y of ESTRIL) 01:00: 13:53 AT 1999, [place] tablet 20 00 :13 First dose Medi shade mg (after [place] last modificati on) on Thu12/01/19 at 1999, Until Discontinu ed, Routine KCL 2020-0 2020- No 40meq 40 mEq, Univers (KLOR-CON 11-30 Oral, ONCE ity of M20) tablet 11:30: 14:15 NOW, 1 [place] 40 mEq 00 :00 dose, [place]12/01/19 at Branch 0630, Routine carvediloL 2020-0 Yes 25mg 25 mg, Unive rs (COREG) 11-30 Oral, BID, ity of tablet 25 01:00: First dose [place] mg 00 (after Medical last Branch modificati on) on Thu11/30/19 at 1999, Until Discontinu ed, Routine KCL 2020-0 2020- No 20meq 20 mEq, Univers (KLOR-CON 11-29 Oral, ity of M20) tablet 15:51: 22:27 ONCE, 1 [place] 20 mEq 00 :00 dose, Thu11/30/19 at Branch 1100, Routine insulin 2020-0 2020- No 15U 15 Units, [facility] ers glargine 11-29 Subcutaneo ity of (LANTUS 02:00: 15:07 , [place], [place] U-100) 00 :18 First dose Medical injection (after Branch 15 Units last modificati on) on Thu11/29/19 at 2100, Until Discontinu ed, Routine insulin 2020-0 2020- No 4U 4 Units, [facility] 11-28 Subcutaneo ity of RAPID 21:30: 13:24 , [place], [place] (NOVOLOG) 00 :17 First dose Medi shade injection 4 (after Branch Units last modificati on) on Thu11/29/19 at 1630, Until Discontinu ed, Routine potassium 2020-0 2020- No 20meq 20 mEq, IV Univers chloride 20 11-28 Piggyback, i ty of mEq/100 mL 18:45: 22:38 ONCE, 1 [place] (KCL) 20 00 :00 dose, Tu Medic l mEq/100 mL 11/29/19 at [facility] RTU IVPB 20 1345, 100 mEq mL KCL 2020-0 2020- No 40meq 40 mEq, Univers (KLOR-CON 11-28 Oral, ity of M20) tablet 17:10: 17:45 ONCE, 1 [place] 40 mEq 00 :00 dose, [facility] 11/29/19 at Branch 1215, Routine aspirin 2019-0 Yes 81mg 81 mg, Univers chewable 11-28 Oral, ity of tablet 81 14:00: DAILY, [place] mg 00 First dose Medical on [facility] 11/29/19 at 0900, Until Discontinu ed, Routine carvediloL 2020- No 12.5mg 12.5 mg, Univers (COREG) 11-28 Oral, BID ity of tablet 12.5 13:00: 15:31 MEALS, [place] mg 00 :39 First dose Medical on [facility] 11/29/19 at 0800, Until Discontinu ed, Routine vancomycin 2019- No 1250mg 1,250 mg, Univers 1250 mg in 11-28 IV ity of NS 250 mL 04:00: 13:28 Piggyback, [place] RTU IV 00 :57 Q12H ABX, Medical Piggyback First dose Bran ch 1,250 mg (after last modificati on) on [facility] 11/28/19 at 2300, Until Discontinu ed
Reas on for Anti-Infec tive: Empiric Therapy for Suspected Infection< br>Empiric Therapy Site: Skin / Soft tissue
Duration of therapy: 72 hours atorvastati Yes 20mg 20 mg, Univ ers n (LIPITOR) 11-28 Oral, QHS, it y of tablet 20 02:00: First dose [place] mg 00 on [facility] 11/28/19 at Branch 2100, Until Discontinu ed, Routine hydralAZINE 2019- No 10mg 10 mg, Uni vers (APRESOLINE 11-28 Intravenou i ty of ) injection 01:53: 14:56 s, Q4HPRN, [place] 10 mg 17 :17 Starting Medical [facility] 11/28/19 at 2053, Until Thu12/02/19 at 0956, Routine, Hypertensi on, SBP > 160 mmHg hydralAZINE 2019- No 5mg 5 mg, Univ ers (APRESOLINE 11-28 Intravenou i ty of ) injection 01:00: 01:54 s, Q4H, [place] 5 mg 00 :55 First dose Medical on [facility] Branch 11/28/19 at 2000, Until Discontinu ed, Routine sodium 2020-0 Yes Topical, Univers hypochlorit 11-27 DAILY, ity of e 0.025% 14:00: First dose [place] ([facility]) 00 on [facility] Medical solution 11/28/19 at [facility] h 0900, Until Discontinu ed, Routine KCL 2020-0 2020- No 40meq 40 mEq, IV Unive rs (POTASSIUM 11-27 Piggyback, it y of CHLORIDE) 12:15: 13:19 ONCE, 1 [place] 40 mEq in 00 :00 dose, [facility] Medic al NaCl 0.9% 11/28/19 at [facility] (NS) 0715, 250 piggyback mL KCL 2019-0 2020- No 40meq 40 mEq, Univers (KLOR-CON 11-27 Oral, ity of M20) tablet 12:15: 13:19 ONCE, 1 [place] 40 mEq 00 :00 dose, [facility] Medical 11/28/19 at Branch 0715, STAT ketorolac 2020-0 2020- No 15mg 15 mg, Unive rs (TORADOL) 11-27 Slow IV ity of injection 05:00: 04:59 Push, Q6H, [place] 15 mg 00 :00 4 doses, Medical First dose Branch on Thu11/28/19 at 0000, Last dose on Thu11/28/19 at 1800, Routine
science faculty member approving Restricted medication : YADIRA NICK lactated 2020-0 Yes 1000mL at 42 Univer s ringers IV 8-31 mL/hr, ity of infusion 04:15: 1,000 mL, [place] 1,000 mL 00 IV Medical Infusion, Branch CONTINUOUS , Starting 11/27/19 at 2315, Until Discontinu ed, Routine acetaminoph 2020-0 2020- No 1000mg 1,000 mg, Univers en ADULT 11-27 IV ity of (OFIRMEV) 03:00: 02:03 Infusion, [place] injection 00 :00 Administer Medi shade 1,000 mg over 15 Branch Minutes, Q8H, 3 doses, First dose on [place] 11/27/19 at 2200, Last dose on 11/28/19 at 1400, Routine
Indicatio n: Perioperat amando Patient morpHINE 2019- Yes 4mg 4 mg, Slow Uni vers injection 4 11-27 IV Push, ity of mg 02:57: Q4HPRN, [place] 24 Starting [facility] 11/27/19 at 2157, Until Discontinu ed, Routine, Pain (scale 7-10) KCL 2019- 2020- No 40meq 40 mEq, IV Unive rs (POTASSIUM 11-26 Piggyback, it y of CHLORIDE) 11:23: 13:55 ONCE, 1 [place] 40 mEq in 00 :00 dose, [place] Medic al NaCl 0.9% 11/27/19 at [facility] ch (NS) 0630, 250 piggyback mL KCL 2019- 2020- No 40meq 40 mEq, Univers (KLOR-CON 11-26 Oral, ity of M20) tablet 11:22: 11:40 ONCE, 1 [place] 40 mEq 00 :00 dose, [facility] 11/27/19 at Branch 0630, Routine NaCl 0.9% 2019-0 2020- No 1000mL at 50 Univ ers (NS) IV 11-26 mL/hr, IV ity of infusion 04:15: 03:04 Infusion, [place] 1,000 mL 00 :30 CONTINUOUS Medic al , Starting Branch 11/26/19 at 2315, Until [place] 11/27/19 at 2204, Routine gadoteridol 2019- No .2mL/kg 12.62 mL Univers (PROHANCE-1 11-25 (0.2 mL/kg i ty of 5 mL) 21:30: 21:16 ?63.1 kg), [place] injection 00 :00 Intravenou Medi shade 12.62 mL s, ONCE, 1 Branc h dose, 11/26/19 at 1630, Routine vancomycin 2019-0 2020- No 15mg/kg 1,000 mg Univers (VANCOCIN) 11-25 (rounded ity of 1,000 mg in 16:00: 01:50 from 946.5 [place] NaCl 0.9% 00 :30 mg = 15 Medical (NS) 250 mL mg/kg Branch VIAL-MATE ?63.1 kg), IV IV piggyback Piggyback, Q12H ABX, First dose on [facility] 11/26/19 at 1100, Until Discontinu ed, 250 mL
Reas on for Anti-Infec tive: Empiric Therapy for Suspected Infection< br>Empiric Therapy Site: Skin / Soft tissue
Duration of therapy: 72 hours lisinopriL 2020-0 2020- No 20mg 20 mg, [facility] ers (PRINIVIL,Z 11-25 Oral, ity of ESTRIL) 14:00: 15:33 DAILY, [place] tablet 20 00 :58 First dose Medi shade mg on [facility] Branch 11/26/19 at 0900, Until Discontinu ed, Routine enoxaparin 2020-0 2020- No 40mg 40 mg, [facility] ers (LOVENOX) 11-2531 Subcutaneo ity of injection 14:00: 03:04 us, DAILY, [place] 40 mg 00 :30 First dose Medical on [facility] Branch 11/26/19 at 0900, Until Discontinu ed, Routine insulin 2020-0 2020- No 3U 3 Units, [facility] rs aspart 11-25 Subcutaneo ity of RAPID 12:30: 17:09 us, [place], [place] (NOVOLOG) 00 :27 First dose Medi shade injection 3 on [facility] Branch Units 11/26/19 at 0730, Until Discontinu ed, Routine piperacilli 2020-0 2020- No 3.375g 3.375 g, Univers n-tazobacta 11-2505 IV ity of m (ZOSYN) 09:20: 13:28 Piggyback, [place] 3.375 g in 00 :57 Q6H ABX, Medic al NaCl 0.9% First dose Bran ch (NS) 100 mL on [facility] MINI-BAG 11/26/19 at 0430, Until Discontinu ed, 100 mL
R esmer for Anti-Infec tive: Documented Infection< br>Documen alex Infection Site: Skin / Soft Tissue
Duration of Therapy: 7 days Sliding 2020-0 Yes Subcutaneo [facility] ers Scale - us, Q4H, ity of Insulin - 09:00: First dose [place] Aspart 00 on [facility] Medical (NOVOLOG) + 11/26/19 at Br anch Fsbg 0400, Testing Until Discontinu ed, Routine insulin 2020-0 2020- No 12U 12 Units, Univ ers glargine 11-25 Subcutaneo ity of (LANTUS 08:00: 17:09 us, [facility], [place] U-100) 00 :27 First dose Medical injection on Sat Branch 12 Units 11/26/19 at 0300, Until Discontinu ed, Routine NaCl 0.9% 2020-0 2020- No 1000mL at 999 Uni vers (NS) bolus 11-25 08-29 mL/hr, ity of infusion 07:00: 07:03 1,000 mL, [place] 1,000 mL 00 :00 IV Medical Piggyback, Branch ONCE, 1 dose, 11/26/19 at 0200, STAT NaCl 0.9% 2020-0 2020- No 1000mL at 125 Uni vers (NS) IV 11-25 08-30 mL/hr, IV ity of infusion 06:30: 04:04 Infusion, [place] 1,000 mL 00 :54 CONTINUOUS Medic al , Starting Branch 11/26/19 at 0130, Until 11/26/19 at 2304, Routine traMADoL 2020-0 2020- No 50mg 50 mg, Univer s (ULTRAM) 11-25 08 Oral, ity of tablet 50 06:23: 02:57 Q8HPRN, [place] mg 27 :59 Starting Medical Sat Branch 11/26/19 at 0123, Until 11/27/19 at 2157, Routine, Pain (scale 4-6) NaCl 0.9% 2020-0 2020- No 1000mL at 125 Uni vers (NS) IV 11-25 08-29 mL/hr, ity of infusion 04:30: 15:10 Intravenou [place] 1,000 mL 00 :28 s, Medical CONTINUOUS Branch , Starting 11/25/19 at 2330, Until 11/26/19 at 1010, Routine insulin 2020-0 2020- No 5U 5 Units, Unive rs regular 11-25 Subcutaneo ity o f human 04:30: 03:27 , ONCE, [place] (HUMULIN R) 00 :00 1 dose, Medic al injection 5 Thu Branch Units 11/25/19 at 2330, Routine piperacilli 2019- No 3.375g 3.375 g, Univers n-tazobacta 11-25 IV ity of m (ZOSYN) 04:30: 03:56 Piggyback, [place] 3.375 g in 00 :00 ONCE, 1 Medica l NaCl 0.9% dose, Thu Branc h (NS) 100 mL 11/25/19 at MINI-BAG 2330, 100 mL
Reas on for Anti-Infec tive: Documented Infection< br>Documen alex Infection Site: Skin / Soft Tissue
Duration of Therapy: Other (see Comments) vancomycin 2019- No 1000mg 1,000 mg, Univers (VANCOCIN) 11-25 IV ity of 1,000 mg in 04:30: 15:09 [place], [place] NaCl 0.9% 00 :47 Q12H ABX, Medic al (NS) 250 mL First dose Br anch VIAL-MATE on Thu IV 11/25/19 at piggyback 2330, Until Discontinu ed, 250 mL
Reas on for Anti-Infec tive: Documented Infection< br>Documen alex Infection Site: Skin / Soft Tissue
Duration of Therapy: Other (see Comments) lisinopril Yes [id number] 20mg Take 1 [facility] 20 mg 4-04 [id number] tablet by ity of tablet 00:00: mouth [place] 00 daily. [facility] lisinopril 2018- Yes [id number] 20mg Take 1 Univers 20 mg 4-04 [id number] tablet by ity of tablet 00:00: mouth [place] 00 daily. [facility] lisinopril 2018- Yes [id number] 20mg Take 1 Univers 20 mg 4-04 [id number] tablet by ity of tablet 00:00: mouth [place] 00 daily. [facility] lisinopril 2018- Yes [id number] 20mg Take 1 Univers 20 mg 4-04 [id number] tablet by ity of tablet 00:00: mouth [place] 00 daily. [facility] lisinopril 2018- Yes [id number] 20mg Take 1 Univers 20 mg 4-04 [id number] tablet by ity of tablet 00:00: mouth [place] 00 daily. [facility] lisinopril 2019-0 Yes [id number] 20mg Take 1 Univers 20 mg 4-04 [id number] tablet by ity of tablet 00:00: mouth [place] 00 daily. [facility] Branch lisinopril 2019-0 Yes [id number] 20mg Take 1 Univers 20 mg 4-04 [id number] tablet by ity of tablet 00:00: mouth [place] 00 daily. [facility] Branch lisinopril 2019-0 Yes [id number] 20mg Take 1 Univers 20 mg 4-04 [id number] tablet by ity of tablet 00:00: mouth [place] 00 daily. [facility] Branch lisinopril 2018-0 Yes [id number] 20mg Take 1 Univers 20 mg 4-04 [id number] tablet by ity of tablet 00:00: mouth [place] 00 daily. [facility] Branch lisinopril 2018-0 Yes [id number] 20mg Take 1 Univers 20 mg 4-04 [id number] tablet by ity of tablet 00:00: mouth [place] 00 daily. [facility] Branch lisinopril 2018-0 Yes [id number] 20mg Take 1 Univers 20 mg 4-04 [id number] tablet by ity of tablet 00:00: mouth [place] 00 daily. [facility] Branch lisinopril 2018-0 Yes [id number] 20mg Take 1 Univers 20 mg 4-04 [id number] tablet by ity of tablet 00:00: mouth [place] 00 daily. [facility] Branch lisinopril 2018-0 Yes [id number] 20mg Take 1 Univers 20 mg 4-04 [id number] tablet by ity of tablet 00:00: mouth [place] 00 daily. [facility] Branch lisinopril 2018-0 Yes [id number] 20mg Take 1 Univers 20 mg 4-04 [id number] tablet by ity of tablet 00:00: mouth [place] 00 daily. [facility] Branch lisinopril 2019-0 Yes [id number] 20mg Take 1 Univers 20 mg 4-04 [id number] tablet by ity of tablet 00:00: mouth [place] 00 daily. [facility] Branch lisinopril 2019-0 Yes [id number] 20mg Take 1 Univers 20 mg 4-04 [id number] tablet by ity of tablet 00:00: mouth [place] 00 daily. [facility] lisinopril 2019-0 Yes [id number] 20mg Take 1 Univers 20 mg 4-04 [id number] tablet by ity of tablet 00:00: mouth [place] 00 daily. [facility] lisinopril 2019-0 Yes [id number] 20mg Take 1 Univers 20 mg 4-04 [id number] tablet by ity of tablet 00:00: mouth [place] 00 daily. [facility] lisinopril 2019-0 Yes [id number] 20mg Take 1 Univers 20 mg 4-04 [id number] tablet by ity of tablet 00:00: mouth [place] 00 daily. [facility] lisinopril 2019-0 Yes [id number] 20mg Take 1 Univers 20 mg 4-04 [id number] tablet by ity of tablet 00:00: mouth [place] 00 daily. [facility] Branch lisinopril 2018-0 Yes [id number] 20mg Take 1 Univers 20 mg 4-04 [id number] tablet by ity of tablet 00:00: mouth [place] 00 daily. [facility] lisinopril 2018-0 Yes [id number] 20mg Take 1 Univers 20 mg 4-04 [id number] tablet by ity of tablet 00:00: mouth [place] 00 daily. [facility] lisinopril 2018-0 Yes [id number] 20mg Take 1 Univers 20 mg 4-04 [id number] tablet by ity of tablet 00:00: mouth [place] 00 daily. [facility] lisinopril 2018-0 Yes [id number] 20mg Take 1 Univers 20 mg 4-04 [id number] tablet by ity of tablet 00:00: mouth [place] 00 daily. [facility] lisinopril 2018-0 Yes [id number] 20mg Take 1 Univers 20 mg 4-04 [id number] tablet by ity of tablet 00:00: mouth [place] 00 daily. [facility] lisinopril 2018-0 Yes [id number] 20mg Take 1 Univers 20 mg 4-04 [id number] tablet by ity of tablet 00:00: mouth [place] 00 daily. [facility] lisinopril 2019-0 Yes [id number] 20mg Take 1 Univers 20 mg 4-04 [id number] tablet by ity of tablet 00:00: mouth [place] 00 daily. [facility] lisinopril 2019-0 Yes [id number] 20mg Take 1 Univers 20 mg 4-04 [id number] tablet by ity of tablet 00:00: mouth [place] 00 daily. [facility] lisinopril 2019-0 Yes [id number] 20mg Take 1 Univers 20 mg 4-04 [id number] tablet by ity of tablet 00:00: mouth [place] 00 daily. [facility] lisinopril 2019-0 Yes [id number] 20mg Take 1 Univers 20 mg 4-04 [id number] tablet by ity of tablet 00:00: mouth [place] 00 daily. [facility] Branch lisinopril 2019-0 Yes [id number] 20mg Take 1 Univers 20 mg 4-04 [id number] tablet by ity of tablet 00:00: mouth [place] 00 daily. [facility] Branch lisinopril 2019-0 Yes [id number] 20mg Take 1 Univers 20 mg 4-04 [id number] tablet by ity of tablet 00:00: mouth [place] 00 daily. [facility] Branch lisinopril 2018-0 Yes [id number] 20mg Take 1 Univers 20 mg 4-04 [id number] tablet by ity of tablet 00:00: mouth [place] 00 daily. [facility] Branch lisinopril 2018-0 Yes [id number] 20mg Take 1 Univers 20 mg 4-04 [id number] tablet by ity of tablet 00:00: mouth [place] 00 daily. [facility] Branch lisinopril 2018-0 Yes [id number] 20mg Take 1 Univers 20 mg 4-04 [id number] tablet by ity of tablet 00:00: mouth [place] 00 daily. [facility] lisinopril 2018-0 Yes [id number] 20mg Take 1 Univers 20 mg 4-04 [id number] tablet by ity of tablet 00:00: mouth [place] 00 daily. [facility] lisinopril 2019-0 Yes [id number] 20mg Take 1 Univers 20 mg 4-04 [id number] tablet by ity of tablet 00:00: mouth [place] 00 daily. [facility] lisinopril 2019-0 Yes [id number] 20mg Take 1 [facility] 20 mg 4-04 [id number] tablet by ity of tablet 00:00: mouth [place] 00 daily. [facility] lisinopril 2019-0 Yes [id number] 20mg Take 1 [facility] 20 mg 4-04 [id number] tablet by ity of tablet 00:00: mouth [place] 00 daily. [facility] lisinopril 2019-0 Yes [id number] 20mg Take 1 [facility] 20 mg 4-04 [id number] tablet by ity of tablet 00:00: mouth [place] 00 daily. [facility] lisinopril 2019-0 Yes [id number] 20mg Take 1 [facility] 20 mg 4-04 [id number] tablet by ity of tablet 00:00: mouth [place] 00 daily. [facility] lisinopril 2019-0 Yes [id number] 20mg Take 1 [facility] 20 mg 4-04 [id number] tablet by ity of tablet 00:00: mouth [place] 00 daily. [facility] lisinopril 2018-0 Yes [id number] 20mg Take 1 [facility] 20 mg 4-04 [id number] tablet by ity of tablet 00:00: mouth [place] 00 daily. [facility] lisinopril 2018-0 Yes [id number] 20mg Take 1 [facility] 20 mg 4-04 [id number] tablet by ity of tablet 00:00: mouth [place] 00 daily. [facility] lisinopril 2018-0 Yes [id number] 20mg Take 1 [facility] 20 mg 4-04 [id number] tablet by ity of tablet 00:00: mouth [place] 00 daily. [facility] lisinopril 0 Yes [id number] 20mg Take 1 [facility] 20 mg 4-04 [id number] tablet by ity of tablet 00:00: mouth [place] 00 daily. [facility] lisinopril 0 Yes [id number] 20mg Take 1 [facility] 20 mg 4-04 [id number] tablet by ity of tablet 00:00: mouth [place] 00 daily. [facility] lisinopril 2018-0 Yes [id number] 20mg Take 1 [facility] 20 mg 4-04 [id number] tablet by ity of tablet 00:00: mouth [place] 00 daily. [facility] lisinopril 0 Yes [id number] 20mg Take 1 [facility] 20 mg 4-04 [id number] tablet by ity of tablet 00:00: mouth [place] 00 daily. [facility] lisinopril 2018-0 Yes [id number] 20mg Take 1 [facility] 20 mg 4-04 [id number] tablet by ity of tablet 00:00: mouth [place] 00 daily. [facility] lisinopril 2018-0 Yes [id number] 20mg Take 1 [facility] 20 mg 4-04 [id number] tablet by ity of tablet 00:00: mouth [place] 00 daily. [facility] lisinopril 2019-0 Yes [id number] 20mg Take 1 [facility] 20 mg 4-04 [id number] tablet by ity of tablet 00:00: mouth [place] 00 daily. [facility] lisinopril 2018-0 Yes [id number] 20mg Take 1 [facility] 20 mg 4-04 [id number] tablet by ity of tablet 00:00: mouth [place] 00 daily. [facility] lisinopril 2019-0 Yes [id number] 20mg Take 1 [facility] 20 mg 4-04 [id number] tablet by ity of tablet 00:00: mouth [place] 00 daily. [facility] metFORMIN 2019-0 Yes [id number] 1000mg Take 1 [facility] 1,000 mg 4-03 [id number] tablet by ity of tablet 00:00: mouth (two) Medical times Branch daily with meals. metFORMIN 2019-0 Yes [id number] 1000mg Take 1 [facility] 1,000 mg 4-03 [id number] tablet by ity of tablet 00:00: mouth (two) Medical times Branch daily with meals. metFORMIN 2019-0 Yes [id number] 1000mg Take 1 [facility] 1,000 mg 4-03 [id number] tablet by ity of tablet 00:00: mouth (two) Medical times Branch daily with meals. metFORMIN 2019-0 Yes [id number] 1000mg Take 1 [facility] 1,000 mg 4-03 [id number] tablet by ity of tablet 00:00: mouth (two) Medical times Branch daily with meals. metFORMIN 2019-0 Yes [id number] 1000mg Take 1 [facility] 1,000 mg 4-03 [id number] tablet by ity of tablet 00:00: mouth (two) Medical times Branch daily with meals. metFORMIN 2019-0 Yes [id number] 1000mg Take 1 [facility] 1,000 mg 4-03 [id number] tablet by ity of tablet 00:00: mouth (two) Medical times Branch daily with meals. metFORMIN 2019-0 Yes [id number] 1000mg Take 1 [facility] 1,000 mg 4-03 [id number] tablet by ity of tablet 00:00: mouth (two) Medical times Branch daily with meals. metFORMIN 2019-0 Yes [id number] 1000mg Take 1 [facility] 1,000 mg 4-03 [id number] tablet by ity of tablet 00:00: mouth (two) Medical times Branch daily with meals. metFORMIN 2019-0 Yes [id number] 1000mg Take 1 [facility] 1,000 mg 4-03 [id number] tablet by ity of tablet 00:00: mouth (two) Medical times Branch daily with meals. metFORMIN 2019-0 Yes [id number] 1000mg Take 1 [facility] 1,000 mg 4-03 [id number] tablet by ity of tablet 00:00: mouth (two) Medical times Branch daily with meals. metFORMIN 2019-0 Yes [id number] 1000mg Take 1 [facility] 1,000 mg 4-03 [id number] tablet by ity of tablet 00:00: mouth (two) Medical times Branch daily with meals. metFORMIN 2019-0 Yes [id number] 1000mg Take 1 [facility] 1,000 mg 4-03 [id number] tablet by ity of tablet 00:00: mouth (two) Medical times Branch daily with meals. metFORMIN 2019-0 Yes [id number] 1000mg Take 1 [facility] 1,000 mg 4-03 [id number] tablet by ity of tablet 00:00: mouth (two) Medical times Branch daily with meals. metFORMIN 2019-0 Yes [id number] 1000mg Take 1 [facility] 1,000 mg 4-03 [id number] tablet by ity of tablet 00:00: mouth (two) Medical times Branch daily with meals. metFORMIN 2019-0 Yes [id number] 1000mg Take 1 [facility] 1,000 mg 4-03 [id number] tablet by ity of tablet 00:00: mouth (two) Medical times Branch daily with meals. metFORMIN 2019-0 Yes [id number] 1000mg Take 1 [facility] 1,000 mg 4-03 [id number] tablet by ity of tablet 00:00: mouth (two) Medical times Branch daily with meals. metFORMIN 2019-0 Yes [id number] 1000mg Take 1 [facility] 1,000 mg 4-03 [id number] tablet by ity of tablet 00:00: mouth (two) Medical times Branch daily with meals. metFORMIN 2019-0 Yes [id number] 1000mg Take 1 [facility] 1,000 mg 4-03 [id number] tablet by ity of tablet 00:00: mouth (two) Medical times Branch daily with meals. metFORMIN 2019-0 Yes [id number] 1000mg Take 1 [facility] 1,000 mg 4-03 [id number] tablet by ity of tablet 00:00: mouth (two) Medical times Branch daily with meals. metFORMIN 2019-0 Yes [id number] 1000mg Take 1 [facility] 1,000 mg 4-03 [id number] tablet by ity of tablet 00:00: mouth (two) Medical times Branch daily with meals. metFORMIN 2019-0 Yes [id number] 1000mg Take 1 [facility] 1,000 mg 4-03 [id number] tablet by ity of tablet 00:00: mouth (two) Medical times Branch daily with meals. metFORMIN 2019-0 Yes [id number] 1000mg Take 1 [facility] 1,000 mg 4-03 [id number] tablet by ity of tablet 00:00: mouth (two) Medical times Branch daily with meals. metFORMIN 2019-0 Yes [id number] 1000mg Take 1 [facility] 1,000 mg 4-03 [id number] tablet by ity of tablet 00:00: mouth (two) Medical times Branch daily with meals. metFORMIN 2019-0 Yes [id number] 1000mg Take 1 [facility] 1,000 mg 4-03 [id number] tablet by ity of tablet 00:00: mouth (two) Medical times Branch daily with meals. metFORMIN 2019-0 Yes [id number] 1000mg Take 1 [facility] 1,000 mg 4-03 [id number] tablet by ity of tablet 00:00: mouth (two) Medical times Branch daily with meals. metFORMIN 2019-0 Yes [id number] 1000mg Take 1 [facility] 1,000 mg 4-03 [id number] tablet by ity of tablet 00:00: mouth (two) Medical times Branch daily with meals. metFORMIN 2019-0 Yes [id number] 1000mg Take 1 [facility] 1,000 mg 4-03 [id number] tablet by ity of tablet 00:00: mouth (two) Medical times Branch daily with meals. metFORMIN 2019-0 Yes [id number] 1000mg Take 1 [facility] 1,000 mg 4-03 [id number] tablet by ity of tablet 00:00: mouth (two) Medical times Branch daily with meals. metFORMIN 2019-0 Yes [id number] 1000mg Take 1 [facility] 1,000 mg 4-03 [id number] tablet by ity of tablet 00:00: mouth (two) Medical times Branch daily with meals. metFORMIN 2019-0 Yes [id number] 1000mg Take 1 [facility] 1,000 mg 4-03 [id number] tablet by ity of tablet 00:00: mouth (two) Medical times Branch daily with meals. metFORMIN 2019-0 Yes [id number] 1000mg Take 1 [facility] 1,000 mg 4-03 [id number] tablet by ity of tablet 00:00: mouth (two) Medical times Branch daily with meals. metFORMIN 2019-0 Yes [id number] 1000mg Take 1 [facility] 1,000 mg 4-03 [id number] tablet by ity of tablet 00:00: mouth (two) Medical times Branch daily with meals. metFORMIN 2019-0 Yes [id number] 1000mg Take 1 [facility] 1,000 mg 4-03 [id number] tablet by ity of tablet 00:00: mouth (two) Medical times Branch daily with meals. metFORMIN 2019-0 Yes [id number] 1000mg Take 1 [facility] 1,000 mg 4-03 [id number] tablet by ity of tablet 00:00: mouth (two) Medical times Branch daily with meals. metFORMIN 2019-0 Yes [id number] 1000mg Take 1 [facility] 1,000 mg 4-03 [id number] tablet by ity of tablet 00:00: mouth (two) Medical times Branch daily with meals. metFORMIN 2019-0 Yes [id number] 1000mg Take 1 [facility] 1,000 mg 4-03 [id number] tablet by ity of tablet 00:00: mouth (two) Medical times Branch daily with meals. metFORMIN 2019-0 Yes [id number] 1000mg Take 1 [facility] 1,000 mg 4-03 [id number] tablet by ity of tablet 00:00: mouth (two) Medical times Branch daily with meals. metFORMIN 2019-0 Yes [id number] 1000mg Take 1 [facility] 1,000 mg 4-03 [id number] tablet by ity of tablet 00:00: mouth (two) Medical times Branch daily with meals. metFORMIN 2019-0 Yes [id number] 1000mg Take 1 [facility] 1,000 mg 4-03 [id number] tablet by ity of tablet 00:00: mouth (two) Medical times Branch daily with meals. metFORMIN 2019-0 Yes [id number] 1000mg Take 1 [facility] 1,000 mg 4-03 [id number] tablet by ity of tablet 00:00: mouth (two) Medical times Branch daily with meals. metFORMIN 2019-0 Yes [id number] 1000mg Take 1 [facility] 1,000 mg 4-03 [id number] tablet by ity of tablet 00:00: mouth (two) Medical times Branch daily with meals. metFORMIN 2019-0 Yes [id number] 1000mg Take 1 [facility] 1,000 mg 4-03 [id number] tablet by ity of tablet 00:00: mouth (two) Medical times Branch daily with meals. metFORMIN 2019-0 Yes [id number] 1000mg Take 1 [facility] 1,000 mg 4-03 [id number] tablet by ity of tablet 00:00: mouth (two) Medical times Branch daily with meals. metFORMIN 2019-0 Yes [id number] 1000mg Take 1 [facility] 1,000 mg 4-03 [id number] tablet by ity of tablet 00:00: mouth (two) Medical times Branch daily with meals. metFORMIN 2019-0 Yes [id number] 1000mg Take 1 [facility] 1,000 mg 4-03 [id number] tablet by ity of tablet 00:00: mouth (two) Medical times Branch daily with meals. metFORMIN 2019-0 Yes [id number] 1000mg Take 1 [facility] 1,000 mg 4-03 [id number] tablet by ity of tablet 00:00: mouth (two) Medical times Branch daily with meals. metFORMIN 2019-0 Yes [id number] 1000mg Take 1 [facility] 1,000 mg 4-03 [id number] tablet by ity of tablet 00:00: mouth (two) Medical times Branch daily with meals. metFORMIN 2019-0 Yes [id number] 1000mg Take 1 [facility] 1,000 mg 4-03 [id number] tablet by ity of tablet 00:00: mouth (two) Medical times Branch daily with meals. metFORMIN 2019-0 Yes [id number] 1000mg Take 1 [facility] 1,000 mg 4-03 [id number] tablet by ity of tablet 00:00: mouth () Medical times Branch daily with meals. metFORMIN 2019-0 Yes [id number] 1000mg Take 1 [facility] 1,000 mg 4-03 [id number] tablet by ity of tablet 00:00: mouth (two) Medical times Branch daily with meals. metFORMIN 2019-0 Yes [id number] 1000mg Take 1 [facility] 1,000 mg 4-03 [id number] tablet by ity of tablet 00:00: mouth (two) Medical times Branch daily with meals. metFORMIN 2019-0 Yes [id number] 1000mg Take 1 [facility] 1,000 mg 4-03 [id number] tablet by ity of tablet 00:00: mouth (two) Medical times Branch daily with meals. metFORMIN 2019-0 Yes [id number] 1000mg Take 1 [facility] 1,000 mg 4-03 [id number] tablet by ity of tablet 00:00: mouth (two) Medical times Branch daily with meals. metFORMIN 2019-0 Yes [id number] 1000mg Take 1 [facility] 1,000 mg - [id number] tablet by ity of tablet 00:00: mouth [address] [place] [address] (two) Medical times Branch daily with meals. Immunizations Ordered Filled Immunization Date Status Comments Sour e Immunization Name Name Td 2018-06-29 Completed [facility] of 00:00:00 [facility] Td 2018-06-29 Completed [facility] of 00:00:00 [facility] Td 2018-06-29 Completed [facility] 00:00:00 [facility] Td 2018-06-29 Completed [facility] of 00:00:00 [facility] Td 2018-06-29 Completed [facility] of 00:00:00 [facility] Td 2018-06-29 Completed [facility] of 00:00:00 [facility] Td 2018-06-29 Completed [facility] of 00:00:00 [facility] Td 2018-06-29 Completed [facility] of 00:00:00 [facility] Td 2018-06-29 Completed [facility] of 00:00:00 [facility] Td 2018-06-29 Completed [facility] of 00:00:00 [facility] Td 2018-06-29 Completed [facility] of 00:00:00 [facility] Td 2018-06-29 Completed [facility] of 00:00:00 [facility] Td 2018-06-29 Completed [facility] of 00:00:00 [facility] Td 2018-06-29 Completed [facility] of 00:00:00 [facility] Td 2018-06-29 Completed [facility] of 00:00:00 [facility] Td 2018-06-29 Completed [facility] of 00:00:00 [facility] Td 2018-06-29 Completed [facility] of 00:00:00 [facility] Td 2018-06-29 Completed [facility] of 00:00:00 [facility] Td 2018-06-29 Completed [facility] of 00:00:00 [facility] Td 2018-06-29 Completed [facility] of 00:00:00 [facility] Td 2018-06-29 Completed [facility] of 00:00:00 [facility] Td 2018-06-29 Completed [facility] of 00:00:00 [facility] Td 2018-06-29 Completed [facility] of 00:00:00 [facility] Td 2018-06-29 Completed [facility] of 00:00:00 [facility] Td 2018-06-29 Completed [facility] of 00:00:00 [facility] Td 2018-06-29 Completed [facility] of 00:00:00 [facility] Td 2018-06-29 Completed [facility] of 00:00:00 [facility] Td 2018-06-29 Completed [facility] 00:00:00 [facility] Td 2018-06-29 Completed [facility] 00:00:00 [facility] Td 2018-06-29 Completed [facility] 00:00:00 [facility] Td 2018-06-29 Completed [facility] of 00:00:00 [facility] Td 2018-06-29 Completed [facility] of 00:00:00 [facility] Td 2018-06-29 Completed [facility] of 00:00:00 [facility] Td 2018-06-29 Completed [facility] of 00:00:00 [facility] Td 2018-06-29 Completed [facility] of 00:00:00 [facility] Td 2018-06-29 Completed [facility] of 00:00:00 [facility] Td 2018-06-29 Completed [facility] of 00:00:00 [facility] Td 2018-06-29 Completed [facility] of 00:00:00 [facility] Td 2018-06-29 Completed [facility] of 00:00:00 [facility] Td 2018-06-29 Completed [facility] of 00:00:00 [facility] Td 2018-06-29 Completed [facility] of 00:00:00 [facility] Td 2018-06-29 Completed [facility] of 00:00:00 [facility] Td 2018-06-29 Completed [facility] of 00:00:00 [facility] Td 2018-06-29 Completed [facility] of 00:00:00 [facility] Td 2018-06-29 Completed [facility] of 00:00:00 [facility] Td 2018-06-29 Completed [facility] of 00:00:00 [facility] Td 2018-06-29 Completed [facility] of 00:00:00 [facility] Td 2018-06-29 Completed [facility] of 00:00:00 [facility] Td 2018-06-29 Completed [facility] of 00:00:00 [facility] Td 2018-06-29 Completed [facility] of 00:00:00 [facility] Td 2018-06-29 Completed [facility] of 00:00:00 [facility] Td 2018-06-29 Completed [facility] of 00:00:00 [facility] Td 2018-06-29 Completed [facility] of 00:00:00 [facility] Td 2018-06-29 Completed [facility] of 00:00:00 [facility] Vital Signs Vital Name Observation Time Observation Value Comments Source Systolic blood 2022-02-12 16:11:00 98 mm[Hg] Univer sity of pressure [facility] Diastolic blood 2022-02-12 16:11:00 37 mm[Hg] Unive rsity of pressure [facility] Heart rate 2022-02-12 16:11:00 105 /min [facility] of [facility] Body temperature 2022-02-12 16:11:00 35.72 [place] [facility] ersity of [facility] Body height 2022-02-12 16:11:00 147.3 cm [facility] of [facility] Body weight 2022-02-12 16:11:00 72.757 kg [facility] of [facility] BMI 2022-02-12 16:11:00 33.52 kg/m2 [facility] of [facility] Systolic blood 2022-02-06 01:56:00 159 mm[Hg] Univer [facility]ity of pressure [facility] [place] Diastolic blood 2022-02-06 01:56:00 74 mm[Hg] Unive rsity of pressure [facility] Heart rate 2022-02-06 01:56:00 91 /min [facility] of [facility] Respiratory rate 2022-02-06 01:56:00 16 /min Univ ersity of [facility] Oxygen saturation in 2022-02-06 01:56:00 99 /min [facility] of Arterial blood by [facility] Pulse oximetry Branch Body temperature 2022-02-05 22:19:00 37 [place] [facility] ersity of [facility] Body weight 2022-02-05 22:19:00 73.936 kg [facility] of [facility] BMI 2022-02-05 22:19:00 29.81 kg/m2 Universi [facility] of [facility] Systolic blood 2022-01-14 16:43:00 172 mm[Hg] Univer sity of pressure [facility] Diastolic blood 2022-01-14 16:43:00 90 mm[Hg] Unive rsity of pressure [facility] Heart rate 2022-01-14 16:43:00 99 /min [facility] Body temperature 2022-01-14 16:43:00 36.61 [place] [facility] of [facility] Respiratory rate 2022-01-14 16:43:00 18 /min Univ ersity of [facility] Body height 2022-01-14 16:43:00 157.5 cm [facility] [place] [facility] Body weight 2022-01-14 16:43:00 76.204 kg [facility] of [facility] BMI 2022-01-14 16:43:00 30.73 kg/m2 [facility] Oxygen saturation in 2022-01-14 16:43:00 98 /min [facility] Arterial blood by [facility] Pulse oximetry Branch Systolic blood 2021-12-25 16:51:12 136 mm[Hg] Univer sity of pressure [facility] Diastolic blood 2021-12-25 16:51:12 105 mm[Hg] Unive rsity of pressure [facility] Heart rate 2021-12-25 16:51:12 96 /min [facility] Oxygen saturation in 2021-12-25 16:51:12 98 /min [facility] Arterial blood by [facility] Pulse oximetry Branch Body temperature 2021-12-25 14:07:00 37.56 [place] [facility] of [facility] Respiratory rate 2021-12-25 14:07:00 22 /min Univ ersity of [facility] Body weight 2021-12-25 14:07:00 76.204 kg [facility] BMI 2021-12-25 14:07:00 30.73 kg/m2 [facility] Systolic blood 2020-07-17 14:33:00 162 mm[Hg] Univer sity of pressure [facility] Diastolic blood 2020-07-17 14:33:00 64 mm[Hg] Unive rsity of pressure [facility] Heart rate 2020-07-17 14:33:00 79 /min [facility] Body temperature 2020-07-17 14:30:00 36.72 [place] [facility] Respiratory rate 2020-07-17 14:30:00 20 /min [facility] ersity of [facility] Body height 2020-07-17 14:30:00 157.5 cm [facility] Body weight 2020-07-17 14:30:00 68.947 kg [facility] BMI 2020-07-17 14:30:00 27.80 kg/m2 [facility] Body temperature 2020-06-15 13:45:00 36.56 [place] [facility] Respiratory rate 2020-06-15 13:45:00 18 /min [facility] ersity of [facility] Body height 2020-06-15 13:45:00 152.4 cm [facility] Body weight 2020-06-15 13:45:00 70.126 kg [facility] BMI 2020-06-15 13:45:00 30.19 kg/m2 [facility] Oxygen saturation in 2020-06-15 13:45:00 99 /min [facility] Arterial blood by [facility] Pulse oximetry Branch Systolic blood 2020-06-15 13:45:00 186 mm[Hg] Univer sity of pressure [facility] Diastolic blood 2020-06-15 13:45:00 70 mm[Hg] Unive rsity of pressure [facility] Heart rate 2020-06-15 13:45:00 86 /min [facility] Systolic blood 2020-03-13 16:50:00 154 mm[Hg] Univer sity of pressure [facility] Diastolic blood 2020-03-13 16:50:00 78 mm[Hg] Unive rsity of pressure [facility] Heart rate 2020-03-13 16:49:00 81 /min [facility] Body temperature 2020-03-13 16:49:00 36.39 [place] [facility] Respiratory rate 2020-03-13 16:49:00 18 /min [facility] ersity of [facility] Body height 2020-03-13 16:49:00 152.4 cm [facility] Body weight 2020-03-13 16:49:00 66.633 kg [facility] BMI 2020-03-13 16:49:00 28.69 kg/m2 [facility] Systolic blood 2020-02-10 15:29:00 195 mm[Hg] Univer sity of pressure [facility] Diastolic blood 2020-02-10 15:29:00 89 mm[Hg] Unive rsity of pressure [facility] Heart rate 2020-02-10 15:29:00 84 /min [facility] Body temperature 2020-02-10 15:27:00 36.83 [place] [facility] Respiratory rate 2020-02-10 15:27:00 20 /min Univ ersity of [facility] Body height 2020-02-10 15:27:00 152.4 cm [facility] Body weight 2020-02-10 15:27:00 66.044 kg [facility] BMI 2020-02-10 15:27:00 28.44 kg/m2 [facility] Oxygen saturation in 2020-02-10 15:27:00 98 /min [facility] of Arterial blood by [place] [employer] [facility] Pulse oximetry Branch Systolic blood 2020-01-13 13:57:00 154 mm[Hg] Univer sity of pressure [facility] Diastolic blood 2020-01-13 13:57:00 78 mm[Hg] Unive rsity of pressure [facility] Heart rate 2020-01-13 13:55:00 80 /min [facility] Body temperature 2020-01-13 13:55:00 36.44 [place] [facility] Respiratory rate 2020-01-13 13:55:00 18 /min Univ ersity of [facility] Body weight 2020-01-13 13:55:00 65.772 kg [facility] BMI 2020-01-13 13:55:00 28.32 kg/m2 [facility] Systolic blood 2019-12-20 20:50:00 132 mm[Hg] Univer sity of pressure [facility] Diastolic blood 2019-12-20 20:50:00 75 mm[Hg] Unive rsity of pressure [facility] Heart rate 2019-12-20 20:50:00 77 /min [facility] Body temperature 2019-12-20 20:50:00 36.67 [place] [facility] Respiratory rate 2019-12-20 20:50:00 18 /min Univ ersity of [facility] Body weight 2019-12-20 20:50:00 66.225 kg [facility] BMI 2019-12-20 20:50:00 28.51 kg/m2 [facility] Oxygen saturation in 2019-12-20 20:50:00 97 /min [facility] Arterial blood by [place] [employer] Pulse oximetry Branch Systolic blood 2019-12-20 15:20:00 190 mm[Hg] Univer sity of pressure [facility] Diastolic blood 2019-12-20 15:20:00 88 mm[Hg] Unive rsity of pressure [facility] Heart rate 2019-12-20 15:20:00 80 /min [facility] Body temperature 2019-12-20 15:04:00 36.5 [place] [facility] Respiratory rate 2019-12-20 15:04:00 20 /min [facility] ersity of [facility] Body height 2019-12-20 15:04:00 152.4 cm [facility] Body weight 2019-12-20 15:04:00 66.225 kg [facility] BMI 2019-12-20 15:04:00 28.51 kg/m2 [facility] Oxygen saturation in 2019-12-20 15:04:00 98 /min [facility] Arterial blood by [facility] Pulse oximetry Branch Systolic blood 2019-12-07 22:00:00 144 mm[Hg] Univer sity of pressure [facility] Diastolic blood 2019-12-07 22:00:00 88 mm[Hg] Unive rsity of pressure [facility] Heart rate 2019-12-07 22:00:00 78 /min [facility] [place] Medical Branch Body temperature 2019-12-07 22:00:00 36.33 Olim[place]ia [facility] Respiratory rate 2019-12-07 22:00:00 18 /min [facility] Oxygen saturation in 2019-12-07 22:00:00 98 /min [facility] Arterial blood by [facility] Pulse oximetry Branch Body weight 2019-12-01 08:35:00 66.497 kg [facility] BMI 2019-12-01 08:35:00 24.40 kg/m2 [facility] BP Systolic 2022-02-04 14:36:00 139 mm[Hg] BP Diastolic 2022-02-04 14:36:00 60 mm[Hg] Weight Measured 2022-02-04 14:36:00 163.20 pounds Height Measured 2022-02-04 14:36:00 64.00 inches Body Temperature 2022-02-04 14:36:00 98.30 degrees Heart Rate 2022-02-04 14:36:00 93.00 /min Respiratory Rate 2022-02-04 14:36:00 BP Systolic 2021-11-07 09:14:00 144 mm[Hg] BP Diastolic 2021-11-07 09:14:00 56 mm[Hg] Weight Measured 2021-11-07 09:14:00 166.00 pounds Height Measured 2021-11-07 09:14:00 64.00 inches Body Temperature 2021-11-07 09:14:00 Heart Rate 2021-11-07 09:14:00 83.00 /min Respiratory Rate 2021-11-07 09:14:00 BP Systolic 2021-07-02 08:16:00 136 mm[Hg] BP Diastolic 2021-07-02 08:16:00 73 mm[Hg] Weight Measured 2021-07-02 08:16:00 170.00 pounds Height Measured 2021-07-02 08:16:00 64.00 inches Body Temperature 2021-07-02 08:16:00 98.40 degrees Heart Rate 2021-07-02 08:16:00 76.00 /min Respiratory Rate 2021-07-02 08:16:00 17.00 /min BP Systolic 2021-06-04 09:30:00 186 mm[Hg] BP Diastolic 2021-06-04 09:30:00 79 mm[Hg] Weight Measured 2021-06-04 09:30:00 167.00 pounds Height Measured 2021-06-04 09:30:00 64.00 inches Body Temperature 2021-06-04 09:30:00 98.20 degrees Heart Rate 2021-06-04 09:30:00 84.00 /min Respiratory Rate 2021-06-04 09:30:00 17.00 /min BP Systolic 2021-02-20 09:16:00 202 mm[Hg] BP Diastolic 2021-02-20 09:16:00 100 mm[Hg] Weight Measured 2021-02-20 09:16:00 165.40 pounds Height Measured 2021-02-20 09:16:00 64.00 inches Body Temperature 2021-02-20 09:16:00 98.30 degrees Heart Rate 2021-02-20 09:16:00 83.00 /min Respiratory Rate 2021-02-20 09:16:00 16.00 /min BP Systolic 2020-11-07 11:06:00 122 mm[Hg] BP Diastolic 2020-11-07 11:06:00 79 mm[Hg] Weight Measured 2020-11-07 11:06:00 161.20 pounds Height Measured 2020-11-07 11:06:00 64.00 inches Body Temperature 2020-11-07 11:06:00 98.00 degrees Heart Rate 2020-11-07 11:06:00 46.00 /min Respiratory Rate 2020-11-07 11:06:00 16.00 /min BP Systolic 2020-07-03 17:12:00 165 mm[Hg] BP Diastolic 2020-07-03 17:12:00 75 mm[Hg] Weight Measured 2020-07-03 17:12:00 158.20 pounds Height Measured 2020-07-03 17:12:00 64.00 inches Body Temperature 2020-07-03 17:12:00 100.00 degrees Heart Rate 2020-07-03 17:12:00 98.00 /min Respiratory Rate 2020-07-03 17:12:00 16.00 /min BP Systolic 2020-03-06 13:57:00 141 mm[Hg] BP Diastolic 2020-03-06 13:57:00 72 mm[Hg] Weight Measured 2020-03-06 13:57:00 154.80 pounds Height Measured 2020-03-06 13:57:00 64.00 inches Body Temperature 2020-03-06 13:57:00 98.60 degrees Heart Rate 2020-03-06 13:57:00 79.00 /min Respiratory Rate 2020-03-06 13:57:00 16.00 /min BP Systolic 2019-12-23 14:29:00 158 mm[Hg] BP Diastolic 2019-12-23 14:29:00 91 mm[Hg] Weight Measured 2019-12-23 14:29:00 160.00 pounds Height Measured 2019-12-23 14:29:00 64.00 inches Body Temperature 2019-12-23 14:29:00 98.90 degrees Heart Rate 2019-12-23 14:29:00 75.00 /min Respiratory Rate 2019-12-23 14:29:00 25.00 /min Procedures Procedure Date / Time Performing Clinician Source Performed BASIC METABOLIC PANEL 2022-02-06 01:00:00 Elvia Mckeon [facility] (NA, K, CL, CO2, GLUCOSE, Medica l Branch BUN, CREATININE, CA) CBC WITH DIFF 2022-02-06 00:59:00 Elvia Mckeon [facility] PROTHROMBIN TIME / INR 2022-02-06 00:59:00 Elvia Mckeon [facility] ACTIVATED PARTIAL 2022-02-06 00:59:00 Elvia Mckeon [facility] XR HAND 3+ VW LEFT 2022-02-05 22:43:39 Elvia Mckeon [facility] CONSENT/REFUSAL FOR 2022-02-05 22:20:55 Doctor Unassigned, [facility] DIAGNOSIS AND TREATMENT [facility] CONSENT/REFUSAL FOR 2022-01-14 16:30:47 Doctor Unaamy, [facility] DIAGNOSIS AND TREATMENT [facility] XR FINGERS 2 VW LEFT 2021-12-25 14:42:11 Kelvin [facility] COMP. METABOLIC PANEL 2021-12-25 14:27:00 Naranjo, [facility] ([id number]) [facility] CBC WITH DIFF 2021-12-25 14:27:00 Naranjo [facility] URINALYSIS 2021-12-25 14:27:00 Naranjo [facility] ASSIGNMENT OF BENEFITS 2019-12-20 14:47:43 Doctor Unaamy, [facility] POCT GLUCOSE (AUTOMATED) 2019-12-07 22:09:00 Yadira Nick [facility] POCT GLUCOSE (AUTOMATED) 2019-12-07 17:13:00 Yadira Nick [facility] BASIC METABOLIC PANEL 2019-12-07 14:24:00 Kwesi Gilman [facility] (NA, K, CL, CO2, GLUCOSE, Medica l Branch BUN, CREATININE, CA) CBC WITH DIFF 2019-12-07 14:24:00 Kwesi Gilman [facility] POCT GLUCOSE (AUTOMATED) 2019-12-07 13:13:00 Yadira Nick [facility] POCT GLUCOSE (AUTOMATED) 2019-12-07 09:26:00 Yadira Nick [facility] POCT GLUCOSE (AUTOMATED) 2019-12-07 05:06:00 Yadira Nick [facility] POCT GLUCOSE (AUTOMATED) 2019-12-07 01:19:00 Yadira Nick [facility] POCT GLUCOSE (AUTOMATED) 2019-12-06 23:40:00 [facility]adira [facility] FUNGUS (ROUTINE) CULTURE 2019-12-06 22:07:32 Yadira Nick [facility] TISSUE 2019-12-06 22:07:32 Yadira Nick [facility] CULTURE(AEROBIC/ANAEROBIC Medica l Branch ) FOOT DEBRIDEMENT 2019-12-06 20:36:00 Yadira Nick [facility] COVID-19 (ID NOW RAPID 2019-12-06 17:01:00 Missy Shabazz [facility] (AUTOMATED) 2019-12-06 16:56:00 Yadira Nick [facility] POCT GLUCOSE (AUTOMATED) 2019-12-06 13:16:00 Yadira Nick [facility] POCT GLUCOSE (AUTOMATED) 2019-12-06 09:16:00 Yadira Nick [facility] POCT GLUCOSE (AUTOMATED) 2019-12-06 05:24:00 Yadira Nick [facility] POCT GLUCOSE (AUTOMATED) 2019-12-06 01:53:00 Yadira Nick [facility] POCT GLUCOSE (AUTOMATED) 2019-12-05 22:05:00 Yadira Nick [facility] POCT GLUCOSE (AUTOMATED) 2019-12-05 16:57:00 Yadira Nick [facility] POCT GLUCOSE (AUTOMATED) 2019-12-05 12:48:00 Yadira Nick [facility] POCT GLUCOSE (AUTOMATED) 2019-12-05 09:58:00 Yadira [facility] POCT GLUCOSE (AUTOMATED) 2019-12-05 05:22:00 Yadira Nick [facility] POCT GLUCOSE (AUTOMATED) 2019-12-04 21:27:00 Yadira Nick niversity [facility] POCT GLUCOSE (AUTOMATED) 2019-12-04 16:49:00 Yadira [facility] PO[facility] GLUCOSE (AUTOMATED) 2019-12-04 13:32:00 Yadira [facility] BASIC METABOLIC PANEL 2019-12-04 10:29:00 [facility] (NA, K, CL, CO2, GLUCOSE, Medica l Branch BUN, CREATININE, CA) CBC WITH DIFF 2019-12-04 10:29:[address] [facility] POCT GLUCOSE (AUTOMATED) 2019-12-04 04:55:00 Yadira [facility] POCT GLUCOSE (AUTOMATED) 2019-12-04 01:08:00 Yadira Nick U niversity [facility] POCT GLUCOSE (AUTOMATED) 2019-12-03 21:12:00 Yadira Nick niversity [facility] POCT GLUCOSE (AUTOMATED) 2019-12-03 17:19:00 [facility]adira [facility] POCT GLUCOSE (AUTOMATED) 2019-12-03 13:36:00 Yadira [facility] BASIC METABOLIC PANEL 2019-12-03 10:17:[address] [facility] (NA, K, CL, CO2, GLUCOSE, Medica l Branch BUN, CREATININE, CA) CBC WITH DIFF 2019-12-03 10:17:00 [facility] POCT GLUCOSE (AUTOMATED) 2019-12-03 09:11:00 Yadira Nick U niversity [facility] POCT GLUCOSE (AUTOMATED) 2019-12-03 05:46:00 Yadira [facility] POCT GLUCOSE (AUTOMATED) 2019-12-03 02:01:00 Yadira [facility] POCT GLUCOSE (AUTOMATED) 2019-12-03 01:28:00 [facility] ([facility]OM[facility]) 2019-12-02 23:04:00 [facility] POCT GLUCOSE (AUTOMATED) 2019-12-02 17:07:00 Yadira [facility] POCT GLUCOSE (AUTOMATED) 2019-12-02 12:58:00 [facility]adira [facility] POCT GLUCOSE (AUTOMATED) 2019-12-02 09:51:00 [facility]adira [facility] PO[facility] GLUCOSE (AUTOMATED) 2019-12-02 06:12:00 Yadira [facility] VANCOMYCIN TROUGH 2019-12-02 03:35:00 Rafael Arenas [facility] POCT GLUCOSE (AUTOMATED) 2019-12-02 02:22:00 [facility]adira [facility] POCT GLUCOSE (AUTOMATED) 2019-12-01 21:43:00 Yadira Nick [facility] POCT GLUCOSE (AUTOMATED) 2019-12-01 17:27:00 [facility]ira [facility] POCT GLUCOSE (AUTOMATED) 2019-12-01 13:27:00 Yadira Nick [facility] BASIC METABOLIC PANEL 2019-12-01 09:51:00 [facility] (NA, K, CL, CO2, GLUCOSE, Medica l Branch BUN, CREATININE, CA) CBC WITH DIFF 2019-12-01 09:51:[address] [facility] POCT GLUCOSE (AUTOMATED) 2019-12-01 09:39:00 [facility]adira [facility] POCT GLUCOSE (AUTOMATED) 2019-12-01 05:44:00 Yadira [facility] PO[facility] GLUCOSE (AUTOMATED) 2019-12-01 01:44:00 Yadira Nick [facility] HB ABO GROUPING 2019-11-30 22:40:00 Kwesi Gilman [facility] POCT GLUCOSE (AUTOMATED) 2019-11-30 22:09:00 Yadira Nick [facility] POCT GLUCOSE (AUTOMATED) 2019-11-30 15:56:00 Yadira Nick [facility] VANCOMYCIN TROUGH 2019-11-30 14:21:00 [facility] POCT GLUCOSE (AUTOMATED) 2019-11-30 13:24:00 Yadira Nick [facility] BASIC METABOLIC PANEL 2019-11-30 09:22:00 [facility] (NA, K, CL, CO2, GLUCOSE, Medica l Branch BUN, CREATININE, CA) CBC WITH DIFF 2019-11-30 09:22:[address] [facility] POCT GLUCOSE (AUTOMATED) 2019-11-30 09:21:00 Yadira Nick [facility] POCT GLUCOSE (AUTOMATED) 2019-11-30 04:50:00 Yadira Nick [facility] POCT GLUCOSE (AUTOMATED) 2019-11-30 01:35:00 Yadira Nick [facility] POCT GLUCOSE (AUTOMATED) 2019-11-30 01:21:00 Yadira Nick [facility] POCT GLUCOSE (AUTOMATED) 2019-11-29 23:08:00 [facility]adira [facility] POCT GLUCOSE (AUTOMATED) 2019-11-29 17:00:00 Yadira Nick [facility] POCT GLUCOSE (AUTOMATED) 2019-11-29 12:38:00 Yadira Nick [facility] BASIC METABOLIC PANEL 2019-11-29 09:43:00 [facility] (NA, K, CL, CO2, GLUCOSE, Medica l Branch BUN, CREATININE, CA) CBC WITH DIFF 2019-11-29 09:43:00 [facility] POCT GLUCOSE (AUTOMATED) 2019-11-29 09:27:00 Yadira [facility] POCT GLUCOSE (AUTOMATED) 2019-11-29 04:43:00 Yadira [facility] BASIC METABOLIC PANEL 2019-11-29 03:53:00 Braulio Jovel [facility] (NA, K, CL, CO2, GLUCOSE, Medica l Branch BUN, CREATININE, CA) POCT GLUCOSE (AUTOMATED) 2019-11-29 01:37:00 Yadira [facility] POCT GLUCOSE (AUTOMATED) 2019-11-28 22:23:00 Yadira [facility] POCT GLUCOSE (AUTOMATED) 2019-11-28 19:56:00 [facility]adira [facility] POCT GLUCOSE (AUTOMATED) 2019-11-28 16:55:00 Yadira [facility] POCT GLUCOSE (AUTOMATED) 2019-11-28 13:42:00 Yadira [facility] BASIC METABOLIC PANEL 2019-11-28 10:24:00 Braulio Jovel [facility] (NA, K, CL, CO2, GLUCOSE, Medica l Branch BUN, CREATININE, CA) CBC WITH DIFF 2019-11-28 10:24:00 [facility] Brice chicho [facility] POCT GLUCOSE (AUTOMATED) 2019-11-28 09:01:00 Yadira Nick [facility] POCT GLUCOSE (AUTOMATED) 2019-11-28 05:10:00 Yadira Nickersba [facility] VANCOMYCIN TROUGH 2019-11-28 04:52:00 Carlos Bee [facility] POCT GLUCOSE (AUTOMATED) 2019-11-28 01:09:00 Yadira [facility] POCT GLUCOSE (AUTOMATED) 2019-11-27 22:10:00 Yadira Nick U niversba [facility] FL TIME OR 2019-11-27 21:38:42 Nimmich, [facility] (NON-REPORTABLE) [facility] FUNGUS (ROUTINE) CULTURE 2019-11-27 20:45:56 Yadira Nick [facility] TISSUE 2019-11-27 20:45:56 Yadira Nick [facility] CULTURE(AEROBIC/ANAEROBIC Medica l Branch ) ASPIRATE OR ABSCESS 2019-11-27 20:28:15 Yadira Nick [facility] CULTURE(AEROBIC/ANAEROBIC Medica l Branch ) AFB CULTURE 2019-11-27 20:28:15 Yadira Nick [facility] FUNGUS (ROUTINE) CULTURE 2019-11-27 20:28:15 Yadira Nick [facility] FUNGUS (ROUTINE) CULTURE 2019-11-27 20:23:39 Yadira Nick [facility] TISSUE 2019-11-27 20:23:39 [facility](AEROBIC/ANAEROBIC Medica l Branch ) SURGICAL PATHOLOGY EXAM 2019-11-27 20:07:00 Yadira Nick [facility] TOE AMPUTATION 2019-11-27 18:00:00 Yadira Nick [facility] ARTERIOGRAM 2019-11-27 18:00:00 Yadira Nick [facility] POCT GLUCOSE (AUTOMATED) 2019-11-27 14:00:00 Sai Lomas [facility] POCT GLUCOSE (AUTOMATED) 2019-11-27 10:12:00 Sai Lomas [facility] MAGNESIUM 2019-11-27 09:58:00 [facility] BASIC METABOLIC PANEL 2019-11-27 09:58:00 Rohit [facility] (NA, K, CL, CO2, GLUCOSE, Medica l Branch BUN, CREATININE, CA) CBC WITH DIFF 2019-11-27 09:58:00 Rohit [facility] ABORH CONFIRMATION 2019-11-27 09:55:00 Sai Lomas [facility] HB ABO GROUPING 2019-11-27 08:50:00 [facility] POCT GLUCOSE (AUTOMATED) 2019-11-27 04:27:00 Sai Lomas [facility] POCT GLUCOSE (AUTOMATED) 2019-11-27 01:10:00 Sai Lomas [facility] BAMBI MULTI LEVEL BY 2019-11-26 21:55:51 Kaelyn Sanders [facility] VASCULAR LAB Medical Branch MR FOOT LEFT W WO 2019-11-26 21:23:56 Molly Greene [facility] CONTRAST A Medical Branch BILATERAL DUPLEX SCAN OF 2019-11-26 19:45:36 Alvarado Saul [facility] BY [facility]ASCULAR LAB Medical B ranch POCT GLUCOSE (AUTOMATED) 2019-11-26 19:06:00 Sai Lomas [facility] WOUND/ASPIRATE OR ABSCESS 2019-11-26 16:45:00 Braulio Jovel [facility] CULTURE [facility] WOUND CULTURE 2019-11-26 16:45:00 [facility] PO[facility] GLUCOSE (AUTOMATED) 2019-11-26 14:09:00 Sai Lomas [facility] LACTIC ACID WHOLE BLOOD 2019-11-26 09:33:00 Carlos Bee [facility] POCT GLUCOSE (AUTOMATED) 2019-11-26 09:27:00 Sai Lomas [facility] XR FOOT <3 VW LEFT 2019-11-26 02:20:07 Miky Fajardo [facility] COVID-19 (ID NOW RAPID 2019-11-26 02:18:00 Miky Fajardo [facility] TESTING) [facility] BLOOD CULTURE SCREEN 2019-11-26 02:13:00 Miky Fajardo [facility] COMP. METABOLIC PANEL 2019-11-26 02:13:00 Miky Fajardo [facility] ([id number]) [facility] LIPID PANEL ([id number])(TOTAL 2019-11-26 02:13:00 Carlos Bee [facility] CHOLESTEROL, [facility] TRIGLYCERIDES, HDL) CBC WITH DIFF 2019-11-26 02:13:00 Miky Fajardo [facility] GLYCOSYLATED HEMOGLOBIN 2019-11-26 02:13:00 Carlos Bee [facility] (A1C) [facility] LACTIC ACID WHOLE BLOOD 2019-11-26 02:13:00 Miky Fajardo [facility] BLOOD CULTURE SCREEN 2019-11-26 01:50:00 Miky Fajardo [facility] NOTICE OF PRIVACY 2019-11-26 01:12:21 Doctor Unassigned, [facility] PRACTICES [facility] CONSENT/REFUSAL FOR 2019-11-26 01:10:14 Doctor Unassigned, [facility] DIAGNOSIS AND TREATMENT [facility] [place] AGREEMENTS AUTHORIZATIONS 2019-11-25 05:01:00 Doctor Unassigned, [facility] AND IRREVOCABLE [facility] [place] ASSIGNMENTS (FORM 2001) Plan of Care Planned Activity Planned Date Details Comments Source Goal Plan of Care Note [code = 98638-7] Goal Plan of Care Note [code = 47791-7] Goal Plan of Care Note [code = 68069-6] Goal Plan of Care Note [code = 86242-4] Goal Plan of Care Note [code = 89663-3] Goal Plan of Care Note [code = 26728-2] Goal Plan of Care Note [code = 01930-3] Goal Plan of Care Note [code = 41288-5] Goal Plan of Care Note [code = 60297-2] Goal Plan of Care Note [code = 90528-3] Goal Plan of Care Note [code = 91608-5] Goal Plan of Care Note [code = 17527-0] Goal Plan of Care Note [code = 64238-8] Goal Plan of Care Note [code = 23235-5] Goal Plan of Care Note [code = 01824-3] Goal Plan of Care Note [code = 63393-8] Encounters Start End Encounter Admission Attending Care Care Encounter Source Date/Time Date/Time Type Type Clinicians Facility Department ID 2022-03-05 2022-03-05 Outpatient Anahi FOOTE [facility] [id number] Sherie 10:50:00 10:50:00 MAGALY [facility] 2022-02-27 2022-02-27 Outpatient SOL HORTON [id number] Guzman 11:40:20 11:40:20 1201 F Jaya 2022-02-26 2022-02-26 Letter Ethan Real [facility] [id number] Univers 00:00:00 00:00:00 (Out) [facility] AT [id number] ity of [place] 4.2.7.2.686 Travis barrera [place] [id number] [facility] [address] [place] 2022-02-12 2022-02-12 Outpatient R REX [facility] [id number] Univers 10:10:00 10:35:28 MAGALY ity [facility] 2022-02-12 2022-02-12 Office [facility] [id number] Univers 10:10:00 10:35:28 Visit [facility] [id number] ity of [facility] 4.2.7.2.686 Travis barrera [place] AT [id number] [address] 2022-02-05 2022-02-05 [facility] [id number] Univers 16:19:00 22:45:00 [facility] 2022-02-05 2022-02-05 Emergency [facility] [place] [id number] Univers 16:19:00 22:45:00 [facility] [id number] ity of .2.7.2.686 Travis barrera [id number] [facility] [address] [place] 2022-02-04 2022-02-04 Outpatient [facility] [id number] Guzman 14:32:55 14:32:55 1108 F Jaya 2022-02-04 2022-02-04 Outpatient [id number] 00:00:00 00:00:00 Visit [id number] 2022-01-14 Emergency [facility] [id number] Univers 11:43:00 13:30:00 MIKY [facility] 2022-01-14 2022-01-14 [facility] [id number] Univers 11:43:00 13:30:00 Miky HANNAH [id number] [place] [id number] [facility] [address] 2021-12-25 2021-12-25 Emergency X KELVIN, [facility] ERT [id number] Univers 09:09:00 13:30:00 LOUIE ity of [facility] 2021-12-25 2021-12-25 [facility] [id number] Univers 09:09:00 13:30:00 Louie HANNAH [id number] i [place] [id number] [place] [id number] [place] 2021-11-07 2021-11-07 Outpatient [id number] 00:00:00 00:00:00 Visit [id number] 2021-06-03 2021-06-03 Patient MARQUIS Burroughs [id number] Univers 00:00:00 00:00:00 Outreach Alexandra E SAMUEL [id number] [place] [id number] [facility] [address] 2021-04-04 2021-04-04 Patient MARQUIS Burroughs [id number] Univers 00:00:00 00:00:00 Outreach Alexandra E SAMUEL [id number] [place] [id number] [address] 2021-02-13 2021-02-13 Patient MARQUIS Burroughs [id number] Univers 00:00:00 00:00:00 Outreach Alexandra E SAMUEL [id number] [place] [id number] [address] 2021-01-11 2021-01-11 Patient Janelle Burroughssam [id number] Univers 00:00:00 00:00:00 Outreach Alexandra E Samuel [id number] [place] ty [place] [id number] [address] 2020-12-10 2020-12-10 Patient Janelle Burroughssam [id number] Univers 00:00:00 00:00:00 Outreach Alexandra E Samuel [id number] [place] [id number] [address] 2020-10-31 2020-10-31 Patient Janelle Burroughssam [id number] Univers 00:00:00 00:00:00 Outreach Alexandra E Samuel [id number] [place] [id number] [address] 2020-09-18 2020-09-18 Patient ColumbiaJanellesam [id number] Univers 00:00:00 00:00:00 Outreach Alexandra E Samuel [id number] [place] [id number] [address] 2020-08-03 2020-08-03 Patient Marquis Burroughs [id number] Univers 00:00:00 00:00:00 Outreach Alexandra E Samuel [id number] [place] [id number] [address] 2020-07-17 2020-07-17 Office [place] [facility] 1.2.840.114 [id number] Univers 08:48:00 09:50:16 Visit Yadira Hannah 350.1.13.10 [place] [id number] [facility] [address] [facility] 2020-07-172020-07-17 Out[facility] [id number] Univers 09:00:00 09:00:00 YADIRA siu [facility] 2020-07-12 2020-07-12 Patient Marquis Burroughs [id number] Univers 00:00:00 00:00:00 Outreach Alexandra E Samuel [id number] [phone] [address] 2020-06-18 2020-06-18 [facility] [id number] Univers 09:30:00 09:30:00 EDA cosme [facility] 2020-06-15 2020-06-15 Office [facility] [id number] Univers 08:34:05 10:34:19 Visit Yadira Hannah [id number] [id number] [phone] [address] 2020-06-15 2020-06-15 [facility] [id number] Univers 08:30:00 08:30:00 YADIAR siu [facility] 2020-04-12 2020-04-12 Patient Marquis Burroughs [id number] Univers 00:00:00 00:00:00 Outreach Alexandra Mirtha Samuel 350.1.13.10 [id number] [phone] [address] 2020-03-13 2020-03-13 Office [facility] 1.2.840.114 [id number] Univers 09:13:42 11:04:48 Visit Yadira Hannah 350.1.13.10 [place] [phone] [address] 2020-03-13 2020-03-13 Outpatient R [facility] [id number] Univers 10:15:00 10:15:00 YADIRA siu [facility] 2020-03-09 2020-03-09 Patient Marquis Burroughs 1.2.840.114 [id number] Univers 00:00:00 00:00:00 Outreach Alexandra E Samuel 350.1.13.10 [id number] [phone] [address] 2020-02-10 2020-02-10 Office [facility] 1.2.840.114 [id number] Univers 08:49:26 10:05:10 Visit Yadira Hannah 350.1.13.10 [place] [phone] [address] 2020-02-10 2020-02-10 Outpatient R [facility] [id number] Univers 09:15:00 09:15:00 YADIRA siu [facility] 2020-02-07 2020-02-07 Patient Marquis Burroughs 1.2.840.114 [id number] Univers 00:00:00 00:00:00 Outreach Alexandra E Samuel 350.1.13.10 [place] [phone] [address] 2020-01-13 2020-01-13 Office [facility] 1.2.840.114 [id number] Univers 08:44:53 10:04:55 Visit Yadira Hannah 350.1.13.10 [place] [phone] [address] 2020-01-13 2020-01-13 Outpatient R [facility] [id number] Univers 09:00:00 09:00:00 YADIRA siu [facility] 2020-01-12 2020-01-12 Patient Marquis Burroughs 1.2.840.114 [id number] Univers 00:00:00 00:00:00 Outreach Alexandra E Samuel 350.1.13.10 [place] [phone] [address] 2020-01-12 2020-01-12 Patient Manjeet Janellesam 1.2.840.114 [id number] Univers 00:00:00 00:00:00 Outreach Alexandra E Samuel 350.1.13.10 [place] [phone] [address] 2020-01-11 2020-01-11 Patient Marquis Burroughs 1.2.840.114 [id number] Univers 00:00:00 00:00:00 Outreach Alexandra E Samuel 350.1.13.10 [place] [phone] [address] 2020-01-06 2020-01-06 Outpatient R [facility] [id number] Univers 10:45:00 10:45:00 YADIRA siu [facility] 2020-01-06 2020-01-06 Patient Marquis Burroughs 1.2.840.114 [id number] Univers 00:00:00 00:00:00 Outreach Alexandra E Samuel 350.1.13.10 [place] [phone] [address] 2020-01-04 2020-01-04 Transition Marquis Rincon 1.2.840.114 [id number] Univers 00:00:00 00:00:00 of Care Tatiana Samuel 350.1.13.10 [place] [phone] [address] 2019-12-28 2019-12-28 Telephone [facility] 1.2.840.114 [id number] Univers 00:00:00 00:00:00 Yadira Hannah 350.1.13.10 [place] [phone] Il dical [address] 2019-12-23 2019-12-23 [facility] 1.2.840.114 [id number] Univers 00:00:00 00:00:00 Francisco Hannah 350.1.13.10 [place] [phone] Il dical nal 044 [facility] 2019-12-22 2019-12-22 Patient Robyn Canas 1.2.840.114 [id number] [facility] [place] [facility] 00:00:00 00:00:00 Outreach E Samuel 350.1.13.10 [place] [phone] [address] 2019-12-21 2019-12-21 Patient [facility] 1.2.840.[id number] [place] [address] 00:00:00 00:00:00 Outreach [facility] 350.1.13.10 i ty of [place] 4.2.7.2.686 [place] Professio [phone] [address] Office [facility] 2019-12-21 2019-12-21 Patient Marquis Burroughs 1.2.840.[id number] [place] [address] 00:00:00 00:00:00 Outreach Alexandra E Samuel 350.1.13.10 [place] [phone] [address] 2019-12-20 2019-12-20 [facility] 1.2.840.114 [id number] [facility] [place] [facility] 15:39:02 16:36:37 Visit Francisco Hannah 350.1.13.10 [place] [phone] [address] 2019-12-20 2019-12-20 Office [facility] 1.2.840.114 [id number] [facility] [place] [facility] 09:47:52 10:57:49 Visit Yadira Hannah 350.1.13.10 [place] [phone] [facility] 205 [facility] 2019-12-20 2019-12-20 Outpatient R [facility] [id number] Univers 10:15:00 10:15:00 YADIRA siu [facility] 2019-12-20 2019-12-20 Orders Doctor MAGALY 1.2.840.114 [id number] Univers 00:00:00 00:00:00 Only Unassigned, ALEXANDER 350.1.13.10 ity of [place] [facility] 4.2.7.2.686 [place] [phone] [facility] [address] 2019-12-11 2019-12-11 [facility] 1.2.840.114 [id number] Univers 00:00:00 00:00:00 [facility] 350.1.13.10 [place] [facility] [phone] [address] 2019-12-08 2019-12-08 Transition Marquis Rincon 1.2.840.114 [id number] Univers 00:00:00 00:00:00 of Care Tatiana Samuel 350.1.13.10 [place] [phone] [facility] [address] 2019-11-25 2019-12-07 [facility] 1.2.840. 114 [id number] Univers 20:29:00 20:07:00 Encounter Sai Lomas 350.1.1 3.10 ity of [facility] 4.2.7.2.686 [place] [phone] [facility] [address] 2019-11-30 2019-11-30 Transition Marquis Rincon 1.2.840.114 [id number] Univers 00:00:00 00:00:00 of Care Tatiana Samuel 350.1.13.10 [place] of [place] [phone] [facility] [address] 2019-11-25 2019-11-25 Emergency X [facility] ERT [id number] Univers 20:29:00 20:29:00 LAMARISELA ity of [facility] 2019-11-25 2019-11-25 Orders Doctor MCKENZIE 1.2.840.114 [id number] Univers 00:00:00 00:00:00 Only Unassigned, ALEXANDER 350.1.13.10 ity of [place] [facility] 4.2.7.2.686 [place] as [phone] [facility] [address] 2018-12-03 2018-12-03 Patient Marquis Burroughs 1.2.840.114 [id number] Univers 00:00:00 00:00:00 Outreach Alexandra E Samuel 350.1.13.10 [place] [phone] [facility] [address] 2018-12-03 2018-12-03 Patient Robyn Canas 1.2.840.114 [id number] Univers 00:00:00 00:00:00 Outreach E Samuel 350.1.13.10 [place] [phone] [facility] [address] Results Test Description Test Time Test Comments Results Result Comments Source COMP. METABOLIC PANEL (20261) 2021-12-25 15:03:27 Test Item Value Reference Range Interpretation Comme nts NA (test code = 4379773456) 136 mmol/L 135-145 K (test code = 3500888813) 4.1 mmol/L 3.5-5 CL (test code = 9555009508) 102 mmol/L 98-108 CO2 TOTAL (test code = 2260432522) 23 mmol/L 23-31 AGAP (test code = 2810229576) 2-16 BUN (test code = 4839364496) 12 mg/dL 7-23 GLUCOSE (test code = 6221555393) 318 mg/dL 70-110 H CREATININE (test code = 0.77 mg/dL 0.6-1.25 5249848052) TOTAL BILI (test code = 0.6 mg/dL 0.1-1.7 8424784328) CALCIUM (test code = 5668266078) 8.6 mg/dL 8.6-10.6 T PROTEIN (test code = 2464552700) 6.8 g/dL 6.3-8.2 ALBUMIN (test code = 7562148290) 3.9 g/dL 3.5-5 ALK PHOS (test code = 5785991290) 165 U/L 34-122 H ALTv (test code = 1742-6) 32 U/L 5-50 AST(SGOT) (test code = 3049957901) 24 U/L 13-40 eGFR (test code = 7807820132) mL/min/1.73m2 LUIS (test code = LUIS) Association of Glomerular Filtration Rate (GFR) and Staging of Kidney Disease* + +-------- + ------+| GFR (mL/min/1.73 m2) ?| With Kidney Damage ?| ?Without Kidney Damage+ +-- + +| ?>90 ?| ?Stage one ?| ? Normal ?+ +------- + -------+| ?60-89 ?| ?Stage two ?| ? Decreased GFR ? + +-------- + ------+| ?30-59 ?| ?Stage three ?| ? Stage three ? + +-------- + ------+| ?15-29 ?| ?Stage four ? | ? Stage four ?+ +------- + -------+| ?<15 (or dialysis) ? ?| ?Stage five ? | ? Stage five ?+ +------- + -------+ *Each stage assumes the associated GFR level has been in effect for at least three months. ?Stages 1 to 5, with or without kidney disease, indicate chronic kidney disease. Notes: Determination of stages one and two (with eGFR >59mL/min/1.73 m2) requires estimation of kidney damage for at least three months as defined by structural or functional abnormalities of the kidney, manifested by either:Pathological abnormalities or Markers of kidney damage (including abnormalities in the composition of the blood or urine or abnormalities in imaging tests). Lab Interpretation (test code = Abnormal 22667-3) [facility] WITH [id number] 14:53:24 Test Item Value Reference Range Interpretation Comments WBC (test code = See_Comment [Automated 4129-2) message] The sy stem which generated this result transmitted reference range : 4.20 - 10.70 10*3/?L. The reference range was not used to interpret this result as normal/abnormal . RBC (test code = See_Comment L [Automated 109-8) message] The sy stem which generated this result transmitted reference range : 4.26 - 5.52 10*6/?L. The reference range was not used to interpret this result as normal/abnormal . HGB (test code = 13.0 g/dL 12.2-16.4 718-7) HCT (test code = 36.0 % 38.4-49.3 L 4544-3) MCV (test code = 84.9 fL 81.7-95.6 787-2) MCH (test code = 30.7 pg 26.1-32.7 785-6) MCHC (test code = 36.1 g/dL 31.2-35 H 786-4) RDW-SD (test code = 39.2 fL 38.5-51.6 45618-8) RDW-CV (test code = 12.9 % 12.1-15.4 788-0) PLT (test code = See_Comment [Automated 777-3) message] The sy stem which generated this result transmitted reference range : 150 - 328 10*3/ ?L. The reference r neno was not used to interpret this result as normal/abnormal . MPV (test code = 9.2 fL 9.8-13 L 32091-5) NRBC/100 WBC (test See_Comment [Automat ed code = 1552764550) message] The system which generated this result transmitted reference range : 0.0 - 10.0 /100 WBCs. The refer ence range was not u sed to interpret th is result as normal/abnormal . NRBC x10^3 (test code See_Comment [Auto mated = 2321583793) message] The s ystem which generated this result transmitted reference range : 10*3/?L. The reference range was not used to interpret this result as normal/abnormal . GRAN MAT (NEUT) % 71.6 % (test code = 770-8) IMM GRAN % (test code 0.40 % = 3586062941) LYMPH % (test code = 18.8 % 736-9) MONO % (test code = 6.7 % 5905-5) EOS % (test code = 1.7 % 713-8) BASO % (test code = 0.8 % 706-2) GRAN MAT x10^3(ANC) 5.46 10*3/uL 1.99-6.95 (test code = 7866201789) IMM GRAN x10^3 (test 0.03 10*3/uL 0-0.06 code = 0582600913) LYMPH x10^3 (test code 1.43 10*3/uL 1.09-3.23 = 731-0) MONO x10^3 (test code 0.51 10*3/uL 0.36-1.02 = 742-7) EOS x10^3 (test code = 0.13 10*3/uL 0.06-0.53 711-2) BASO x10^3 (test code 0.06 10*3/uL 0.01-0.09 = 704-7) Lab Interpretation Abnormal (test code = 84654-2) [facility]05 Test Item Value Reference Range Interpretation Comments NOTE: (test code = (NOTE) IN ACCOR DANCE WITH FEDERAL 998) GUIDELINES REQU IRING ALL VERBAL REQUESTS FOR LABORATORY TEST S TO BE ACCOMPANIED BY WRITTEN AUTHORIZATION W ITHIN 30 DAYS OF THIS REQUEST , PLEASE SIGN BELOW AND RETUR N A COPY OF THIS REPORT BY FAX TO THE LABORATORY SCAN KYLE DEPARTMENT AT . PHYSICIAN'S SIG NATURE DATE UNLESS OTHERWISE INDIC ATED, ALL TESTING PERFORM ED ATCLINICAL PATHOLOGY [facility] [employer] [address] [place] [address] LABORATOR Y DIRECTOR: RASHID HOPSON M.D. CLIA NUMBER [id number] CAP ACCREDITATION N O. [id number] LIPID [id number] 05:00:16 Test Item Value Reference Range Interpretation Comments CHOLESTEROL (test 145 MG/DL <200 code = 2210) TRIGLYCERIDES (test 181 MG/DL <150 H code = 2232) HDL CHOLESTEROL (test 35 MG/DL >39 L code = 2220) CALC LDL CHOL (test 82 MG/DL <100 NOTE: C ALCULATED LDL code = 2237) IS BASED ON CHRIS-JONES METHOD WHICHINCLUDES ADJUSTABLE TRIGLYCERIDE:VL DL CHOLESTEROL RAT IO.THIS FACTOR VARIES B Y MEASURED TRIGLY CERIDE AND NON-HDLCHOL ESTEROL CONCENTRATIONS WITH INCREASED CALCU LATED LDL SEENIN HIGH ER TRIGLYCERIDE OR LOWER NON-HDL SPECIME NS. FOR MOREINFORMATION , SEE CLIENT ANNOUNCE MENT AT [email or web address] RISK RATIO LDL/HDL 2.34 RATIO <3.55 (test code = 223) COMPREHENSIVE METABOLIC [id number] 05:00:16 Test Item Value Reference Range Interpretation Comments GLUCOSE (test code = 250 MG/DL 70-99 H 2216) BUN (test code = 18 MG/DL 6-20 2207) CREATININE (test 1.17 MG/DL 0.80-1.40 code = 2214) eGFR (2020 CKD-EPI) 72 ML/MIN/1.73 >60 (test code = 78908) CALC BUN/CREAT (test 15 RATIO 6-28 code = 2235) SODIUM (test code = 141 MEQ/L 265-132 6930) POTASSIUM (test code 4.4 MEQ/L 3.5-5.4 = 2227) CHLORIDE (test code 106 MEQ/L 95-107 = 2214) CARBON DIOXIDE (test 24 MEQ/L 19-31 code = 220) CALCIUM (test code = 9.1 MG/DL 8.5-10.5 2208) PROTEIN, TOTAL (test 6.5 G/DL 6.1-8.3 code = 222) ALBUMIN (test code = 3.7 G/DL 3.5-5.2 2200) CALC GLOBULIN (test 2.8 G/DL 1.9-3.7 code = 2240) CALC A/G RATIO (test 1.3 RATIO 1.0-2.6 code = 2234) BILIRUBIN, TOTAL 0.4 MG/DL See_Comment [Automated message] (test code = 220) The syste m which generated this result transmit alex reference range : <=1.2. The refe rence range was not u sed to interpret th is result as normal/abnormal . ALKALINE PHOSPHATASE 157 U/L 40-123 H (test code = 2203) AST (test code = 28 U/L 9-50 2217) ALT (test code = 30 U/L 5-50 2218) HEMOGLOBIN [id number] 04:11:01 Test Item Value Reference Range Interpretation Comments HEMOGLOBIN A1c (test 10.5 % 4.2-5.6 H AMERI CAN DIABETES code = 19565) ASSOCIATION IDELINES FOR HGB A1C: PREDIABETES/INC REASED RISK . . . . . . . 5 .7-6.4% DIAGNOSIS OF DI ABETES . . . . . . . . . >=6 .5% WITH CONFIRMATION OR APPROPRIATE SYMPTOMS NOTE: ASSAY MAY BE AFFECTED BY HEMOGLOBINOPATH IES (SICKLE CELL ANEMIA, S- C DISEASE, OTHERS) OR HARISH FICIALLY LOWERED BY DECR EASED RED CELL SURVIVAL ( HEMOLYTIC ANEMIAS, BLOOD LOSS, ETC.). CONSIDER ALTERN ATE TESTING OR LABORATORY C ONSULTATION. HEMOGLOBIN [id number] 07:49:13 Test Item Value Reference Range Interpretation Comments HEMOGLOBIN A1c (test 11.7 % 4.2-5.6 H AMERIC AN DIABETES code = 44187) ASSOCIATION IDELINES FOR HGB A1C: PREDIABETES/INC REASED RISK . . . . . . . 5 .7-6.4% DIAGNOSIS OF DI ABETES . . . . . . . . . >=6 .5% WITH CONFIRMATION OR APPROPRIATE SYMPTOMS NOTE: ASSAY MAY BE AFFECTED BY HEMOGLOBINOPATH IES (SICKLE CELL ANEMIA, S- C DISEASE, OTHERS) OR HARISH FICIALLY LOWERED BY DECR EASED RED CELL SURVIVAL ( HEMOLYTIC ANEMIAS, BLOOD LOSS, ETC.). CONSIDER ALTERN ATE TESTING OR LABORATORY C ONSULTATION. COMPREHENSIVE METABOLIC [id number] 05:31:44 Test Item Value Reference Range Interpretation Comments GLUCOSE (test code = 209 MG/DL 70-99 H 2216) BUN (test code = 12 MG/DL 6-20 2207) CREATININE (test 0.73 MG/DL 0.80-1.40 L code = 2214) eGFR (2020 CKD-EPI) 106 >60 (test code = 38525) ML/MIN/1.73 CALC BUN/CREAT (test 16 RATIO 6-28 code = 2235) SODIUM (test code = 139 MEQ/L 037-888 1551) POTASSIUM (test code 4.2 MEQ/L 3.5-5.4 = 2227) CHLORIDE (test code 101 MEQ/L 95-107 = 2214) CARBON DIOXIDE (test 24 MEQ/L 19-31 code = 2206) CALCIUM (test code = 8.7 MG/DL 8.5-10.5 2208) PROTEIN, TOTAL (test 6.8 G/DL 6.1-8.3 code = 2229) ALBUMIN (test code = 4.0 G/DL 3.5-5.2 2200) CALC GLOBULIN (test 2.8 G/DL 1.9-3.7 code = 2240) CALC A/G RATIO (test 1.4 RATIO 1.0-2.6 code = 2234) BILIRUBIN, TOTAL 0.2 MG/DL See_Comment [Automated message] (test code = 2207) The syste m which generated this result transmit alex reference range : <=1.2. The refe rence range was not u sed to interpret th is result as normal/abnormal . ALKALINE PHOSPHATASE 144 U/L 40-123 H (test code = 2204) AST (test code = 22 U/L 9-50 2217) ALT (test code = 32 U/L 5-50 2218) LIPID [id number] 05:31:44 Test Item Value Reference Range Interpretation Comments CHOLESTEROL (test 184 MG/DL <200 code = 2210) TRIGLYCERIDES (test 196 MG/DL <150 H code = 2232) HDL CHOLESTEROL (test 57 MG/DL >39 code = 2220) CALC LDL CHOL (test 98 MG/DL <100 NOTE: C ALCULATED LDL code = 2237) IS BASED ON CHRIS-JONES METHOD WHICHINCLUDES ADJUSTABLE TRIGLYCERIDE:VL DL CHOLESTEROL RAT IO.THIS FACTOR VARIES B Y MEASURED TRIGLY CERIDE AND NON-HDLCHOL ESTEROL CONCENTRATIONS WITH INCREASED CALCU LATED LDL SEENIN HIGH ER TRIGLYCERIDE OR LOWER NON-HDL SPECIME NS. FOR MOREINFORMATION , SEE CLIENT ANNOUNCE MENT AT [email or web address] RISK RATIO LDL/HDL 1.72 RATIO <3.55 UNLESS O THERWISE (test code = 2238) INDICATED , ALL TESTING PERFORMED [facility], [place]. [address] [place], [place] [id number] [place] [address] DIRECTOR: Bruce CERDAIA NUMBER [id number] CAP ACCREDITATION N O. [id number] HEMOGLOBIN [id number] 00:00:00 Test Item Value Reference Range Interpretation Comments HEMOGLOBIN A1c (test code = 19779) 11.7 % COMPREHENSIVE METABOLIC [id number] 00:00:00 Test Item Value Reference Range Interpretation Comments GLUCOSE (test code = 2217) 209 MG/DL BUN (test code = 2208) 12 MG/DL CREATININE (test code = 2214) 0.73 MG/DL eGFR (2020 CKD-EPI) (test 106 ML/MIN/1.73 code = 33552) CALC BUN/CREAT (test code = 16 RATIO 2235) SODIUM (test code = 2231) 139 MEQ/L POTASSIUM (test code = 2228) 4.2 MEQ/L CHLORIDE (test code = 2215) 101 MEQ/L CARBON DIOXIDE (test code = 24 MEQ/L 220) CALCIUM (test code = 2209) 8.7 MG/DL PROTEIN, TOTAL (test code = 6.8 G/DL 2228) ALBUMIN (test code = 2201) 4.0 G/DL CALC GLOBULIN (test code = 2.8 G/DL 2240) CALC A/G RATIO (test code = 1.4 RATIO 2234) BILIRUBIN, TOTAL (test code = 0.2 MG/DL 2206) ALKALINE PHOSPHATASE (test 144 U/L code = 2204) AST (test code = 2218) 22 U/L ALT (test code = 2219) 32 U/L COMPREHENSIVE METABOLIC [id number] 00:00:00 Test Item Value Reference Range Interpretation Comments GLUCOSE (test code = 2217) 209 MG/DL BUN (test code = 2208) 12 MG/DL CREATININE (test code = 2214) 0.73 MG/DL eGFR (2020 CKD-EPI) (test 106 ML/MIN/1.73 code = 89449) CALC BUN/CREAT (test code = 16 RATIO 2235) SODIUM (test code = 2231) 139 MEQ/L POTASSIUM (test code = 2228) 4.2 MEQ/L CHLORIDE (test code = 2215) 101 MEQ/L CARBON DIOXIDE (test code = 24 MEQ/L 220) CALCIUM (test code = 2209) 8.7 MG/DL PROTEIN, TOTAL (test code = 6.8 G/DL 2228) ALBUMIN (test code = 2201) 4.0 G/DL CALC GLOBULIN (test code = 2.8 G/DL 2240) CALC A/G RATIO (test code = 1.4 RATIO 2234) BILIRUBIN, TOTAL (test code = 0.2 MG/DL 2206) ALKALINE PHOSPHATASE (test 144 U/L code = 2204) AST (test code = 2218) 22 U/L ALT (test code = 2219) 32 U/L LIPID [id number] 00:00:00 Test Item Value Reference Range Interpretation Comments CHOLESTEROL (test code = 2210) 184 MG/DL TRIGLYCERIDES (test code = 2232) 196 MG/DL HDL CHOLESTEROL (test code = 2220) 57 MG/DL CALC LDL CHOL (test code = 2237) 98 MG/DL RISK RATIO LDL/HDL (test code = 1.72 RATIO 2238) LIPID [id number] 00:00:00 Test Item Value Reference Range Interpretation Comments CHOLESTEROL (test code = 2210) 184 MG/DL TRIGLYCERIDES (test code = 2232) 196 MG/DL HDL CHOLESTEROL (test code = 2220) 57 MG/DL CALC LDL CHOL (test code = 2237) 98 MG/DL RISK RATIO LDL/HDL (test code = 1.72 RATIO 2238) HEMOGLOBIN [id number] 00:00:00 Test Item Value Reference Range Interpretation Comments HEMOGLOBIN A1c (test code = 40180) 11.7 % HEMOGLOBIN [id number] 00:00:00 Test Item Value Reference Range Interpretation Comments HEMOGLOBIN A1c (test code = 92081) 11.7 % HEMOGLOBIN [id number] 00:00:00 Test Item Value Reference Range Interpretation Comments HEMOGLOBIN A1c (test code = 80495) 11.7 % COMPREHENSIVE METABOLIC [id number] 00:00:00 Test Item Value Reference Range Interpretation Comments GLUCOSE (test code = 2217) 209 MG/DL BUN (test code = 2208) 12 MG/DL CREATININE (test code = 2214) 0.73 MG/DL eGFR (2020 CKD-EPI) (test 106 ML/MIN/1.73 code = 23059) CALC BUN/CREAT (test code = 16 RATIO 2235) SODIUM (test code = 2231) 139 MEQ/L POTASSIUM (test code = 2228) 4.2 MEQ/L CHLORIDE (test code = 2215) 101 MEQ/L CARBON DIOXIDE (test code = 24 MEQ/L 2205) CALCIUM (test code = 2209) 8.7 MG/DL PROTEIN, TOTAL (test code = 6.8 G/DL 2228) ALBUMIN (test code = 220) 4.0 G/DL CALC GLOBULIN (test code = 2.8 G/DL 2239) CALC A/G RATIO (test code = 1.4 RATIO 2234) BILIRUBIN, TOTAL (test code = 0.2 MG/DL 2206) ALKALINE PHOSPHATASE (test 144 U/L code = 2204) AST (test code = 2218) 22 U/L ALT (test code = 2219) 32 U/L COMPREHENSIVE METABOLIC [id number] 00:00:00 Test Item Value Reference Range Interpretation Comments GLUCOSE (test code = 2217) 209 MG/DL BUN (test code = 2208) 12 MG/DL CREATININE (test code = 2214) 0.73 MG/DL eGFR (2020 CKD-EPI) (test 106 ML/MIN/1.73 code = 84732) CALC BUN/CREAT (test code = 16 RATIO 2235) SODIUM (test code = 2231) 139 MEQ/L POTASSIUM (test code = 2228) 4.2 MEQ/L CHLORIDE (test code = 2215) 101 MEQ/L CARBON DIOXIDE (test code = 24 MEQ/L 2205) CALCIUM (test code = 2209) 8.7 MG/DL PROTEIN, TOTAL (test code = 6.8 G/DL 2228) ALBUMIN (test code = 2201) 4.0 G/DL CALC GLOBULIN (test code = 2.8 G/DL 0) CALC A/G RATIO (test code = 1.4 RATIO 2234) BILIRUBIN, TOTAL (test code = 0.2 MG/DL 2206) ALKALINE PHOSPHATASE (test 144 U/L code = 2204) AST (test code = 2218) 22 U/L ALT (test code = 2219) 32 U/L LIPID [id number] 00:00:00 Test Item Value Reference Range Interpretation Comments CHOLESTEROL (test code = 2210) 184 MG/DL TRIGLYCERIDES (test code = 2232) 196 MG/DL HDL CHOLESTEROL (test code = 2220) 57 MG/DL CALC LDL CHOL (test code = 2237) 98 MG/DL RISK RATIO LDL/HDL (test code = 1.72 RATIO 2238) LIPID [id number] 00:00:00 Test Item Value Reference Range Interpretation Comments CHOLESTEROL (test code = 2210) 184 MG/DL TRIGLYCERIDES (test code = 2232) 196 MG/DL HDL CHOLESTEROL (test code = 2220) 57 MG/DL CALC LDL CHOL (test code = 2237) 98 MG/DL RISK RATIO LDL/HDL (test code = 1.72 RATIO 2238) HEMOGLOBIN [id number] 00:00:00 Test Item Value Reference Range Interpretation Comments HEMOGLOBIN A1c (test code = 24632) 11.7 % HEMOGLOBIN [id number] 00:00:00 Test Item Value Reference Range Interpretation Comments HEMOGLOBIN A1c (test code = 35745) 11.7 % HEMOGLOBIN [id number] 00:00:00 Test Item Value Reference Range Interpretation Comments HEMOGLOBIN A1c (test code = 92471) 12.1 % HEMOGLOBIN [id number] 00:00:00 Test Item Value Reference Range Interpretation Comments HEMOGLOBIN A1c (test code = 59062) 12.1 % HEMOGLOBIN [id number] 00:00:00 Test Item Value Reference Range Interpretation Comments HEMOGLOBIN A1c (test code = 04237) 12.1 % HEMOGLOBIN [id number] 00:00:00 Test Item Value Reference Range Interpretation Comments HEMOGLOBIN A1c (test code = 38596) 12.1 % HEMOGLOBIN [id number] 00:00:00 Test Item Value Reference Range Interpretation Comments HEMOGLOBIN A1c (test code = 76631) 12.1 % HEMOGLOBIN [id number] 00:00:00 Test Item Value Reference Range Interpretation Comments HEMOGLOBIN A1c (test code = 40990) 12.1 % CBC W/AUTO [id number] 00:00:00 Test Item Value Reference Range Interpretation Comments WBC (test code = 1001) 9.0 K/UL RBC (test code = 1002) 4.13 M/UL HEMOGLOBIN (test code = 1003) 12.6 G/DL HEMATOCRIT (test code = 1004) 36.5 % MCV (test code = 1005) 88.4 fL MCH (test code = 1006) 30.5 PG MCHC (test code = 1007) 34.5 G/DL RDW (test code = 1038) 12.7 % NEUTROPHILS (test code = 1008) 74.5 % LYMPHOCYTES (test code = 1010) 17.8 % MONOCYTES (test code = 1011) 6.1 % EOSINOPHILS (test code = 1012) 0.7 % BASOPHILS (test code = 1013) 0.6 % IMMATURE GRANYLOCYTES (test 0.3 % code = 1036) NUCLEATED RBCS (test code = 0.0 /100WBC'S 1065) PLATELET COUNT (test code = 228 K/UL 1015) ABSOLUTE NEUTROPHILS (test code 6.72 K/UL = 1066) ABSOLUTE LYMPHOCYTES (test code 1.60 K/UL = 1067) ABSOLUTE MONOCYTES (test code = 0.55 K/UL 1068) ABSOLUTE EOSINOPHILS (test code 0.06 K/UL = 1040) ABSOLUTE BASOPHILS (test code = 0.05 K/UL 1069) ABS IMMATURE GRANULOCYTES (test 0.03 K/UL code = 1020) ABS NUCLEATED RBCS (test code = 0.00 K/UL 73872) CBC W/AUTO [id number] 00:00:00 Test Item Value Reference Range Interpretation Comments WBC (test code = 1001) 9.0 K/UL RBC (test code = 1002) 4.13 M/UL HEMOGLOBIN (test code = 1003) 12.6 G/DL HEMATOCRIT (test code = 1004) 36.5 % MCV (test code = 1005) 88.4 fL MCH (test code = 1006) 30.5 PG MCHC (test code = 1007) 34.5 G/DL RDW (test code = 1038) 12.7 % NEUTROPHILS (test code = 1008) 74.5 % LYMPHOCYTES (test code = 1010) 17.8 % MONOCYTES (test code = 1011) 6.1 % EOSINOPHILS (test code = 1012) 0.7 % BASOPHILS (test code = 1013) 0.6 % IMMATURE GRANYLOCYTES (test 0.3 % code = 1036) NUCLEATED RBCS (test code = 0.0 /100WBC'S 1065) PLATELET COUNT (test code = 228 K/UL 1015) ABSOLUTE NEUTROPHILS (test code 6.72 K/UL = 1066) ABSOLUTE LYMPHOCYTES (test code 1.60 K/UL = 1067) ABSOLUTE MONOCYTES (test code = 0.55 K/UL 1068) ABSOLUTE EOSINOPHILS (test code 0.06 K/UL = 1040) ABSOLUTE BASOPHILS (test code = 0.05 K/UL 1069) ABS IMMATURE GRANULOCYTES (test 0.03 K/UL code = 1020) ABS NUCLEATED RBCS (test code = 0.00 K/UL 65056) CBC W/AUTO [id number] 00:00:00 Test Item Value Reference Range Interpretation Comments WBC (test code = 1001) 9.0 K/UL RBC (test code = 1002) 4.13 M/UL HEMOGLOBIN (test code = 1003) 12.6 G/DL HEMATOCRIT (test code = 1004) 36.5 % MCV (test code = 1005) 88.4 fL MCH (test code = 1006) 30.5 PG MCHC (test code = 1007) 34.5 G/DL RDW (test code = 1038) 12.7 % NEUTROPHILS (test code = 1008) 74.5 % LYMPHOCYTES (test code = 1010) 17.8 % MONOCYTES (test code = 1011) 6.1 % EOSINOPHILS (test code = 1012) 0.7 % BASOPHILS (test code = 1013) 0.6 % IMMATURE GRANYLOCYTES (test 0.3 % code = 1036) NUCLEATED RBCS (test code = 0.0 /100WBC'S 1065) PLATELET COUNT (test code = 228 K/UL 1015) ABSOLUTE NEUTROPHILS (test code 6.72 K/UL = 1066) ABSOLUTE LYMPHOCYTES (test code 1.60 K/UL = 1067) ABSOLUTE MONOCYTES (test code = 0.55 K/UL 1068) ABSOLUTE EOSINOPHILS (test code 0.06 K/UL = 1040) ABSOLUTE BASOPHILS (test code = 0.05 K/UL 1069) ABS IMMATURE GRANULOCYTES (test 0.03 K/UL code = 1020) ABS NUCLEATED RBCS (test code = 0.00 K/UL 29616) LIPID [id number] 00:00:00 Test Item Value Reference Range Interpretation Comments CHOLESTEROL (test code = 2210) 200 MG/DL TRIGLYCERIDES (test code = 2232) 151 MG/DL HDL CHOLESTEROL (test code = 2220) 44 MG/DL CALC LDL CHOL (test code = 2237) 130 MG/DL RISK RATIO LDL/HDL (test code = 2.95 RATIO 2238) LIPID [id number] 00:00:00 Test Item Value Reference Range Interpretation Comments CHOLESTEROL (test code = 2210) 200 MG/DL TRIGLYCERIDES (test code = 2232) 151 MG/DL HDL CHOLESTEROL (test code = 2220) 44 MG/DL CALC LDL CHOL (test code = 2237) 130 MG/DL RISK RATIO LDL/HDL (test code = 2.95 RATIO 2238) COMPREHENSIVE METABOLIC [id number] 00:00:00 Test Item Value Reference Range Interpretation Comments GLUCOSE (test code = 2217) 354 MG/DL BUN (test code = 2208) 18 MG/DL CREATININE (test code = 2214) 0.96 MG/DL eGFR AMER. (test code 101 ML/MIN/1.73 = 94127) eGFR NON- AMER. (test 87 ML/MIN/1.73 code = 17942) CALC BUN/CREAT (test code = 19 RATIO 2235) SODIUM (test code = 2231) 139 MEQ/L POTASSIUM (test code = 2228) 4.2 MEQ/L CHLORIDE (test code = 2215) 103 MEQ/L CARBON DIOXIDE (test code = 26 MEQ/L 2205) CALCIUM (test code = 2209) 9.1 MG/DL PROTEIN, TOTAL (test code = 7.5 G/DL 2228) ALBUMIN (test code = 2201) 4.2 G/DL CALC GLOBULIN (test code = 3.3 G/DL 2240) CALC A/G RATIO (test code = 1.3 RATIO 2234) BILIRUBIN, TOTAL (test code = 0.4 MG/DL 2206) ALKALINE PHOSPHATASE (test 179 U/L code = 2204) AST (test code = 2218) 21 U/L ALT (test code = 2219) 37 U/L COMPREHENSIVE METABOLIC [id number] 00:00:00 Test Item Value Reference Range Interpretation Comments GLUCOSE (test code = 2217) 354 MG/DL BUN (test code = 2208) 18 MG/DL CREATININE (test code = 2214) 0.96 MG/DL eGFR AMER. (test code 101 ML/MIN/1.73 = 92073) eGFR NON- AMER. (test 87 ML/MIN/1.73 code = 20244) CALC BUN/CREAT (test code = 19 RATIO 2235) SODIUM (test code = 2231) 139 MEQ/L POTASSIUM (test code = 2228) 4.2 MEQ/L CHLORIDE (test code = 2215) 103 MEQ/L CARBON DIOXIDE (test code = 26 MEQ/L 2205) CALCIUM (test code = 2209) 9.1 MG/DL PROTEIN, TOTAL (test code = 7.5 G/DL 2228) ALBUMIN (test code = 2201) 4.2 G/DL CALC GLOBULIN (test code = 3.3 G/DL 2240) CALC A/G RATIO (test code = 1.3 RATIO 2234) BILIRUBIN, TOTAL (test code = 0.4 MG/DL 2207) ALKALINE PHOSPHATASE (test 179 U/L code = 2204) AST (test code = 2218) 21 U/L ALT (test code = 2219) 37 U/L CBC W/AUTO [id number] 00:00:00 Test Item Value Reference Range Interpretation Comments WBC (test code = 1001) 9.0 K/UL RBC (test code = 1002) 4.13 M/UL HEMOGLOBIN (test code = 1003) 12.6 G/DL HEMATOCRIT (test code = 1004) 36.5 % MCV (test code = 1005) 88.4 fL MCH (test code = 1006) 30.5 PG MCHC (test code = 1007) 34.5 G/DL RDW (test code = 1038) 12.7 % NEUTROPHILS (test code = 1008) 74.5 % LYMPHOCYTES (test code = 1010) 17.8 % MONOCYTES (test code = 1011) 6.1 % EOSINOPHILS (test code = 1012) 0.7 % BASOPHILS (test code = 1013) 0.6 % IMMATURE GRANYLOCYTES (test 0.3 % code = 1036) NUCLEATED RBCS (test code = 0.0 /100WBC'S 1065) PLATELET COUNT (test code = 228 K/UL 1015) ABSOLUTE NEUTROPHILS (test code 6.72 K/UL = 1066) ABSOLUTE LYMPHOCYTES (test code 1.60 K/UL = 1067) ABSOLUTE MONOCYTES (test code = 0.55 K/UL 1068) ABSOLUTE EOSINOPHILS (test code 0.06 K/UL = 1040) ABSOLUTE BASOPHILS (test code = 0.05 K/UL 1069) ABS IMMATURE GRANULOCYTES (test 0.03 K/UL code = 1020) ABS NUCLEATED RBCS (test code = 0.00 K/UL 63774) CBC W/AUTO [id number] 00:00:00 Test Item Value Reference Range Interpretation Comments WBC (test code = 1001) 9.0 K/UL RBC (test code = 1002) 4.13 M/UL HEMOGLOBIN (test code = 1003) 12.6 G/DL HEMATOCRIT (test code = 1004) 36.5 % MCV (test code = 1005) 88.4 fL MCH (test code = 1006) 30.5 PG MCHC (test code = 1007) 34.5 G/DL RDW (test code = 1038) 12.7 % NEUTROPHILS (test code = 1008) 74.5 % LYMPHOCYTES (test code = 1010) 17.8 % MONOCYTES (test code = 1011) 6.1 % EOSINOPHILS (test code = 1012) 0.7 % BASOPHILS (test code = 1013) 0.6 % IMMATURE GRANYLOCYTES (test 0.3 % code = 1036) NUCLEATED RBCS (test code = 0.0 /100WBC'S 1065) PLATELET COUNT (test code = 228 K/UL 1015) ABSOLUTE NEUTROPHILS (test code 6.72 K/UL = 1066) ABSOLUTE LYMPHOCYTES (test code 1.60 K/UL = 1067) ABSOLUTE MONOCYTES (test code = 0.55 K/UL 1068) ABSOLUTE EOSINOPHILS (test code 0.06 K/UL = 1040) ABSOLUTE BASOPHILS (test code = 0.05 K/UL 1069) ABS IMMATURE GRANULOCYTES (test 0.03 K/UL code = 1020) ABS NUCLEATED RBCS (test code = 0.00 K/UL 00431) CBC W/AUTO [id number] 00:00:00 Test Item Value Reference Range Interpretation Comments WBC (test code = 1001) 9.0 K/UL RBC (test code = 1002) 4.13 M/UL HEMOGLOBIN (test code = 1003) 12.6 G/DL HEMATOCRIT (test code = 1004) 36.5 % MCV (test code = 1005) 88.4 fL MCH (test code = 1006) 30.5 PG MCHC (test code = 1007) 34.5 G/DL RDW (test code = 1038) 12.7 % NEUTROPHILS (test code = 1008) 74.5 % LYMPHOCYTES (test code = 1010) 17.8 % MONOCYTES (test code = 1011) 6.1 % EOSINOPHILS (test code = 1012) 0.7 % BASOPHILS (test code = 1013) 0.6 % IMMATURE GRANYLOCYTES (test 0.3 % code = 1036) NUCLEATED RBCS (test code = 0.0 /100WBC'S 1065) PLATELET COUNT (test code = 228 K/UL 1015) ABSOLUTE NEUTROPHILS (test code 6.72 K/UL = 1066) ABSOLUTE LYMPHOCYTES (test code 1.60 K/UL = 1067) ABSOLUTE MONOCYTES (test code = 0.55 K/UL 1068) ABSOLUTE EOSINOPHILS (test code 0.06 K/UL = 1040) ABSOLUTE BASOPHILS (test code = 0.05 K/UL 1069) ABS IMMATURE GRANULOCYTES (test 0.03 K/UL code = 1020) ABS NUCLEATED RBCS (test code = 0.00 K/UL 36027) LIPID [id number] 00:00:00 Test Item Value Reference Range Interpretation Comments CHOLESTEROL (test code = 2210) 200 MG/DL TRIGLYCERIDES (test code = 2232) 151 MG/DL HDL CHOLESTEROL (test code = 2220) 44 MG/DL CALC LDL CHOL (test code = 2237) 130 MG/DL RISK RATIO LDL/HDL (test code = 2.95 RATIO 2238) LIPID [id number] 00:00:00 Test Item Value Reference Range Interpretation Comments CHOLESTEROL (test code = 2210) 200 MG/DL TRIGLYCERIDES (test code = 2232) 151 MG/DL HDL CHOLESTEROL (test code = 2220) 44 MG/DL CALC LDL CHOL (test code = 2237) 130 MG/DL RISK RATIO LDL/HDL (test code = 2.95 RATIO 2238) COMPREHENSIVE METABOLIC [id number] 00:00:00 Test Item Value Reference Range Interpretation Comments GLUCOSE (test code = 2217) 354 MG/DL BUN (test code = 2208) 18 MG/DL CREATININE (test code = 2214) 0.96 MG/DL eGFR AMER. (test code 101 ML/MIN/1.73 = 40067) eGFR NON- AMER. (test 87 ML/MIN/1.73 code = 57246) CALC BUN/CREAT (test code = 19 RATIO 2235) SODIUM (test code = 2231) 139 MEQ/L POTASSIUM (test code = 2228) 4.2 MEQ/L CHLORIDE (test code = 2215) 103 MEQ/L CARBON DIOXIDE (test code = 26 MEQ/L 2205) CALCIUM (test code = 2209) 9.1 MG/DL PROTEIN, TOTAL (test code = 7.5 G/DL 2228) ALBUMIN (test code = 2201) 4.2 G/DL CALC GLOBULIN (test code = 3.3 G/DL 0) CALC A/G RATIO (test code = 1.3 RATIO 2234) BILIRUBIN, TOTAL (test code = 0.4 MG/DL 2207) ALKALINE PHOSPHATASE (test 179 U/L code = 2204) AST (test code = 2218) 21 U/L ALT (test code = 2219) 37 U/L COMPREHENSIVE METABOLIC [id number] 00:00:00 Test Item Value Reference Range Interpretation Comments GLUCOSE (test code = 2217) 354 MG/DL BUN (test code = 2208) 18 MG/DL CREATININE (test code = 2214) 0.96 MG/DL eGFR AMER. (test code 101 ML/MIN/1.73 = 13705) eGFR NON- AMER. (test 87 ML/MIN/1.73 code = 46017) CALC BUN/CREAT (test code = 19 RATIO 2235) SODIUM (test code = 2231) 139 MEQ/L POTASSIUM (test code = 2228) 4.2 MEQ/L CHLORIDE (test code = 2215) 103 MEQ/L CARBON DIOXIDE (test code = 26 MEQ/L 6) CALCIUM (test code = 2209) 9.1 MG/DL PROTEIN, TOTAL (test code = 7.5 G/DL 2228) ALBUMIN (test code = 2201) 4.2 G/DL CALC GLOBULIN (test code = 3.3 G/DL 2240) CALC A/G RATIO (test code = 1.3 RATIO 2234) BILIRUBIN, TOTAL (test code = 0.4 MG/DL 2206) ALKALINE PHOSPHATASE (test 179 U/L code = 2204) AST (test code = 2218) 21 U/L ALT (test code = 2219) 37 U/L HEMOGLOBIN [id number] 00:00:00 Test Item Value Reference Range Interpretation Comments HEMOGLOBIN A1c (test code = 91738) 10.1 % HEMOGLOBIN [id number] 00:00:00 Test Item Value Reference Range Interpretation Comments HEMOGLOBIN A1c (test code = 90560) 10.1 % HEMOGLOBIN [id number] 00:00:00 Test Item Value Reference Range Interpretation Comments HEMOGLOBIN A1c (test code = 65441) 10.1 % COMPREHENSIVE METABOLIC [id number] 00:00:00 Test Item Value Reference Range Interpretation Comments GLUCOSE (test code = 2217) 338 MG/DL BUN (test code = 2208) 25 MG/DL CREATININE (test code = 2214) 1.00 MG/DL eGFR AMER. (test code 96 ML/MIN/1.73 = 30266) eGFR NON- AMER. (test 83 ML/MIN/1.73 code = 96896) CALC BUN/CREAT (test code = 25 RATIO 2235) SODIUM (test code = 2231) 139 MEQ/L POTASSIUM (test code = 2228) 4.3 MEQ/L CHLORIDE (test code = 2215) 100 MEQ/L CARBON DIOXIDE (test code = 25 MEQ/L 2206) CALCIUM (test code = 2209) 9.1 MG/DL PROTEIN, TOTAL (test code = 6.9 G/DL 2228) ALBUMIN (test code = 2201) 4.0 G/DL CALC GLOBULIN (test code = 2.9 G/DL 2240) CALC A/G RATIO (test code = 1.4 RATIO 2234) BILIRUBIN, TOTAL (test code = 0.3 MG/DL 2206) ALKALINE PHOSPHATASE (test 233 U/L code = 2204) AST (test code = 2218) 14 U/L ALT (test code = 2219) 22 U/L COMPREHENSIVE METABOLIC [id number] 00:00:00 Test Item Value Reference Range Interpretation Comments GLUCOSE (test code = 2217) 338 MG/DL BUN (test code = 2208) 25 MG/DL CREATININE (test code = 2214) 1.00 MG/DL eGFR AMER. (test code 96 ML/MIN/1.73 = 14781) eGFR NON- AMER. (test 83 ML/MIN/1.73 code = 52533) CALC BUN/CREAT (test code = 25 RATIO 2235) SODIUM (test code = 2231) 139 MEQ/L POTASSIUM (test code = 2228) 4.3 MEQ/L CHLORIDE (test code = 2215) 100 MEQ/L CARBON DIOXIDE (test code = 25 MEQ/L 2206) CALCIUM (test code = 2209) 9.1 MG/DL PROTEIN, TOTAL (test code = 6.9 G/DL 2228) ALBUMIN (test code = 2201) 4.0 G/DL CALC GLOBULIN (test code = 2.9 G/DL 2240) CALC A/G RATIO (test code = 1.4 RATIO 2234) BILIRUBIN, TOTAL (test code = 0.3 MG/DL 2206) ALKALINE PHOSPHATASE (test 233 U/L code = 2204) AST (test code = 2218) 14 U/L ALT (test code = 2219) 22 U/L LIPID [id number] 00:00:00 Test Item Value Reference Range Interpretation Comments CHOLESTEROL (test code = 2210) 152 MG/DL TRIGLYCERIDES (test code = 2232) 153 MG/DL HDL CHOLESTEROL (test code = 2220) 48 MG/DL CALC LDL CHOL (test code = 2237) 79 MG/DL RISK RATIO LDL/HDL (test code = 1.65 RATIO 2238) LIPID [id number] 00:00:00 Test Item Value Reference Range Interpretation Comments CHOLESTEROL (test code = 2210) 152 MG/DL TRIGLYCERIDES (test code = 2232) 153 MG/DL HDL CHOLESTEROL (test code = 2220) 48 MG/DL CALC LDL CHOL (test code = 2237) 79 MG/DL RISK RATIO LDL/HDL (test code = 1.65 RATIO 2238) HEMOGLOBIN [id number] 00:00:00 Test Item Value Reference Range Interpretation Comments HEMOGLOBIN A1c (test code = 43896) 10.1 % HEMOGLOBIN [id number] 00:00:00 Test Item Value Reference Range Interpretation Comments HEMOGLOBIN A1c (test code = 55057) 10.1 % HEMOGLOBIN [id number] 00:00:00 Test Item Value Reference Range Interpretation Comments HEMOGLOBIN A1c (test code = 84122) 10.1 % COMPREHENSIVE METABOLIC [id number] 00:00:00 Test Item Value Reference Range Interpretation Comments GLUCOSE (test code = 2217) 338 MG/DL BUN (test code = 2208) 25 MG/DL CREATININE (test code = 2214) 1.00 MG/DL eGFR AMER. (test code 96 ML/MIN/1.73 = 77088) eGFR NON- AMER. (test 83 ML/MIN/1.73 code = 07849) CALC BUN/CREAT (test code = 25 RATIO 2235) SODIUM (test code = 2231) 139 MEQ/L POTASSIUM (test code = 2228) 4.3 MEQ/L CHLORIDE (test code = 2215) 100 MEQ/L CARBON DIOXIDE (test code = 25 MEQ/L 2205) CALCIUM (test code = 2209) 9.1 MG/DL PROTEIN, TOTAL (test code = 6.9 G/DL 2228) ALBUMIN (test code = 2201) 4.0 G/DL CALC GLOBULIN (test code = 2.9 G/DL 2240) CALC A/G RATIO (test code = 1.4 RATIO 2234) BILIRUBIN, TOTAL (test code = 0.3 MG/DL 220) ALKALINE PHOSPHATASE (test 233 U/L code = 2204) AST (test code = 2218) 14 U/L ALT (test code = 2219) 22 U/L COMPREHENSIVE METABOLIC [id number] 00:00:00 Test Item Value Reference Range Interpretation Comments GLUCOSE (test code = 2217) 338 MG/DL BUN (test code = 2208) 25 MG/DL CREATININE (test code = 2214) 1.00 MG/DL eGFR AMER. (test code 96 ML/MIN/1.73 = 24803) eGFR NON- AMER. (test 83 ML/MIN/1.73 code = 39186) CALC BUN/CREAT (test code = 25 RATIO 2235) SODIUM (test code = 2231) 139 MEQ/L POTASSIUM (test code = 2228) 4.3 MEQ/L CHLORIDE (test code = 2215) 100 MEQ/L CARBON DIOXIDE (test code = 25 MEQ/L 2206) CALCIUM (test code = 2209) 9.1 MG/DL PROTEIN, TOTAL (test code = 6.9 G/DL 2228) ALBUMIN (test code = 2201) 4.0 G/DL CALC GLOBULIN (test code = 2.9 G/DL 2240) CALC A/G RATIO (test code = 1.4 RATIO 2234) BILIRUBIN, TOTAL (test code = 0.3 MG/DL 7) ALKALINE PHOSPHATASE (test 233 U/L code = 2204) AST (test code = 2218) 14 U/L ALT (test code = 2219) 22 U/L LIPID [id number] 00:00:00 Test Item Value Reference Range Interpretation Comments CHOLESTEROL (test code = 2210) 152 MG/DL TRIGLYCERIDES (test code = 2232) 153 MG/DL HDL CHOLESTEROL (test code = 2220) 48 MG/DL CALC LDL CHOL (test code = 2237) 79 MG/DL RISK RATIO LDL/HDL (test code = 1.65 RATIO 2238) LIPID [id number] 00:00:00 Test Item Value Reference Range Interpretation Comments CHOLESTEROL (test code = 2210) 152 MG/DL TRIGLYCERIDES (test code = 2232) 153 MG/DL HDL CHOLESTEROL (test code = 2220) 48 MG/DL CALC LDL CHOL (test code = 2237) 79 MG/DL RISK RATIO LDL/HDL (test code = 1.65 RATIO 2238) LIPID [id number] 00:00:00 Test Item Value Reference Range Interpretation Comments CHOLESTEROL (test code = 2210) 127 MG/DL TRIGLYCERIDES (test code = 2232) 99 MG/DL HDL CHOLESTEROL (test code = 2220) 43 MG/DL CALC LDL CHOL (test code = 2237) 66 MG/DL RISK RATIO LDL/HDL (test code = 1.53 RATIO 2238) LIPID [id number] 00:00:00 Test Item Value Reference Range Interpretation Comments CHOLESTEROL (test code = 2210) 127 MG/DL TRIGLYCERIDES (test code = 2232) 99 MG/DL HDL CHOLESTEROL (test code = 2220) 43 MG/DL CALC LDL CHOL (test code = 2237) 66 MG/DL RISK RATIO LDL/HDL (test code = 1.53 RATIO 2238) COMPREHENSIVE METABOLIC [id number] 00:00:00 Test Item Value Reference Range Interpretation Comments GLUCOSE (test code = 2217) 177 MG/DL BUN (test code = 2208) 11 MG/DL CREATININE (test code = 2214) 0.67 MG/DL eGFR AMER. (test code 124 ML/MIN/1.73 = 14170) eGFR NON- AMER. (test 107 ML/MIN/1.73 code = 74291) CALC BUN/CREAT (test code = 16 RATIO 2235) SODIUM (test code = 2231) 138 MEQ/L POTASSIUM (test code = 2228) 3.9 MEQ/L CHLORIDE (test code = 2215) 99 MEQ/L CARBON DIOXIDE (test code = 26 MEQ/L 2205) CALCIUM (test code = 2209) 9.5 MG/DL PROTEIN, TOTAL (test code = 7.3 G/DL 2228) ALBUMIN (test code = 220) 4.4 G/DL CALC GLOBULIN (test code = 2.9 G/DL 2239) CALC A/G RATIO (test code = 1.5 RATIO 223) BILIRUBIN, TOTAL (test code = 0.5 MG/DL 2206) ALKALINE PHOSPHATASE (test 108 U/L code = 2204) AST (test code = 2218) 24 U/L ALT (test code = 2219) 27 U/L COMPREHENSIVE METABOLIC [id number] 00:00:00 Test Item Value Reference Range Interpretation Comments GLUCOSE (test code = 2217) 177 MG/DL BUN (test code = 2208) 11 MG/DL CREATININE (test code = 2214) 0.67 MG/DL eGFR AMER. (test code 124 ML/MIN/1.73 = 64436) eGFR NON- AMER. (test 107 ML/MIN/1.73 code = 99826) CALC BUN/CREAT (test code = 16 RATIO 2235) SODIUM (test code = 2231) 138 MEQ/L POTASSIUM (test code = 2228) 3.9 MEQ/L CHLORIDE (test code = 2215) 99 MEQ/L CARBON DIOXIDE (test code = 26 MEQ/L 2205) CALCIUM (test code = 2209) 9.5 MG/DL PROTEIN, TOTAL (test code = 7.3 G/DL 2228) ALBUMIN (test code = 2201) 4.4 G/DL CALC GLOBULIN (test code = 2.9 G/DL 224) CALC A/G RATIO (test code = 1.5 RATIO 2234) BILIRUBIN, TOTAL (test code = 0.5 MG/DL 2206) ALKALINE PHOSPHATASE (test 108 U/L code = 2204) AST (test code = 2218) 24 U/L ALT (test code = 2219) 27 U/L LIPID [id number] 00:00:00 Test Item Value Reference Range Interpretation Comments CHOLESTEROL (test code = 2210) 127 MG/DL TRIGLYCERIDES (test code = 2232) 99 MG/DL HDL CHOLESTEROL (test code = 2220) 43 MG/DL CALC LDL CHOL (test code = 2237) 66 MG/DL RISK RATIO LDL/HDL (test code = 1.53 RATIO 2238) LIPID [id number] 00:00:00 Test Item Value Reference Range Interpretation Comments CHOLESTEROL (test code = 2210) 127 MG/DL TRIGLYCERIDES (test code = 2232) 99 MG/DL HDL CHOLESTEROL (test code = 2220) 43 MG/DL CALC LDL CHOL (test code = 2237) 66 MG/DL RISK RATIO LDL/HDL (test code = 1.53 RATIO 2238) COMPREHENSIVE METABOLIC [id number] 00:00:00 Test Item Value Reference Range Interpretation Comments GLUCOSE (test code = 2217) 177 MG/DL BUN (test code = 2208) 11 MG/DL CREATININE (test code = 2214) 0.67 MG/DL eGFR AMER. (test code 124 ML/MIN/1.73 = 95486) eGFR NON- AMER. (test 107 ML/MIN/1.73 code = 43987) CALC BUN/CREAT (test code = 16 RATIO 2235) SODIUM (test code = 2231) 138 MEQ/L POTASSIUM (test code = 2228) 3.9 MEQ/L CHLORIDE (test code = 2215) 99 MEQ/L CARBON DIOXIDE (test code = 26 MEQ/L 220) CALCIUM (test code = 2209) 9.5 MG/DL PROTEIN, TOTAL (test code = 7.3 G/DL 2228) ALBUMIN (test code = 2201) 4.4 G/DL CALC GLOBULIN (test code = 2.9 G/DL 2240) CALC A/G RATIO (test code = 1.5 RATIO 2234) BILIRUBIN, TOTAL (test code = 0.5 MG/DL 2206) ALKALINE PHOSPHATASE (test 108 U/L code = 2204) AST (test code = 2218) 24 U/L ALT (test code = 2219) 27 U/L COMPREHENSIVE METABOLIC [id number] 00:00:00 Test Item Value Reference Range Interpretation Comments GLUCOSE (test code = 2217) 177 MG/DL BUN (test code = 2208) 11 MG/DL CREATININE (test code = 2214) 0.67 MG/DL eGFR AMER. (test code 124 ML/MIN/1.73 = 59530) eGFR NON- AMER. (test 107 ML/MIN/1.73 code = 36763) CALC BUN/CREAT (test code = 16 RATIO 2235) SODIUM (test code = 2231) 138 MEQ/L POTASSIUM (test code = 2228) 3.9 MEQ/L CHLORIDE (test code = 2215) 99 MEQ/L CARBON DIOXIDE (test code = 26 MEQ/L 2206) CALCIUM (test code = 2209) 9.5 MG/DL PROTEIN, TOTAL (test code = 7.3 G/DL 2228) ALBUMIN (test code = 2201) 4.4 G/DL CALC GLOBULIN (test code = 2.9 G/DL 2240) CALC A/G RATIO (test code = 1.5 RATIO 2234) BILIRUBIN, TOTAL (test code = 0.5 MG/DL 2207) ALKALINE PHOSPHATASE (test 108 U/L code = 2204) AST (test code = 2218) 24 U/L ALT (test code = 2219) 27 U/L COMPREHENSIVE METABOLIC [id number] 00:00:00 Test Item Value Reference Range Interpretation Comments GLUCOSE (test code = 2217) 161 MG/DL BUN (test code = 2208) 8 MG/DL CREATININE (test code = 2214) 0.85 MG/DL eGFR AMER. (test code 113 ML/MIN/1.73 = 19307) eGFR NON- AMER. (test 97 ML/MIN/1.73 code = 16124) CALC BUN/CREAT (test code = 9 RATIO 2235) SODIUM (test code = 2231) 141 MEQ/L POTASSIUM (test code = 2228) 3.7 MEQ/L CHLORIDE (test code = 2215) 103 MEQ/L CARBON DIOXIDE (test code = 27 MEQ/L 2206) CALCIUM (test code = 2209) 9.2 MG/DL PROTEIN, TOTAL (test code = 7.4 G/DL 2229) ALBUMIN (test code = 2201) 4.4 G/DL CALC GLOBULIN (test code = 3.0 G/DL 2240) CALC A/G RATIO (test code = 1.5 RATIO 2234) BILIRUBIN, TOTAL (test code = 0.4 MG/DL 2207) ALKALINE PHOSPHATASE (test 101 U/L code = 2204) AST (test code = 2218) 17 U/L ALT (test code = 2219) 16 U/L COMPREHENSIVE METABOLIC [id number] 00:00:00 Test Item Value Reference Range Interpretation Comments GLUCOSE (test code = 2217) 161 MG/DL BUN (test code = 2208) 8 MG/DL CREATININE (test code = 2214) 0.85 MG/DL eGFR AMER. (test code 113 ML/MIN/1.73 = 40384) eGFR NON- AMER. (test 97 ML/MIN/1.73 code = 02078) CALC BUN/CREAT (test code = 9 RATIO 2235) SODIUM (test code = 2231) 141 MEQ/L POTASSIUM (test code = 2228) 3.7 MEQ/L CHLORIDE (test code = 2215) 103 MEQ/L CARBON DIOXIDE (test code = 27 MEQ/L 2205) CALCIUM (test code = 2209) 9.2 MG/DL PROTEIN, TOTAL (test code = 7.4 G/DL 2228) ALBUMIN (test code = 2201) 4.4 G/DL CALC GLOBULIN (test code = 3.0 G/DL 2240) CALC A/G RATIO (test code = 1.5 RATIO 2234) BILIRUBIN, TOTAL (test code = 0.4 MG/DL 2206) ALKALINE PHOSPHATASE (test 101 U/L code = 2204) AST (test code = 2218) 17 U/L ALT (test code = 2219) 16 U/L COMPREHENSIVE METABOLIC [id number] 00:00:00 Test Item Value Reference Range Interpretation Comments GLUCOSE (test code = 2217) 161 MG/DL BUN (test code = 2208) 8 MG/DL CREATININE (test code = 2214) 0.85 MG/DL eGFR AMER. (test code 113 ML/MIN/1.73 = 15422) eGFR NON- AMER. (test 97 ML/MIN/1.73 code = 56556) CALC BUN/CREAT (test code = 9 RATIO 2235) SODIUM (test code = 2231) 141 MEQ/L POTASSIUM (test code = 2228) 3.7 MEQ/L CHLORIDE (test code = 2215) 103 MEQ/L CARBON DIOXIDE (test code = 27 MEQ/L 2205) CALCIUM (test code = 2209) 9.2 MG/DL PROTEIN, TOTAL (test code = 7.4 G/DL 2228) ALBUMIN (test code = 2201) 4.4 G/DL CALC GLOBULIN (test code = 3.0 G/DL 2240) CALC A/G RATIO (test code = 1.5 RATIO 2234) BILIRUBIN, TOTAL (test code = 0.4 MG/DL 2206) ALKALINE PHOSPHATASE (test 101 U/L code = 2204) AST (test code = 2218) 17 U/L ALT (test code = 2219) 16 U/L COMPREHENSIVE METABOLIC [id number] 00:00:00 Test Item Value Reference Range Interpretation Comments GLUCOSE (test code = 2217) 161 MG/DL BUN (test code = 2208) 8 MG/DL CREATININE (test code = 2214) 0.85 MG/DL eGFR AMER. (test code 113 ML/MIN/1.73 = 47595) eGFR NON- AMER. (test 97 ML/MIN/1.73 code = 21373) CALC BUN/CREAT (test code = 9 RATIO 2235) SODIUM (test code = 2231) 141 MEQ/L POTASSIUM (test code = 2228) 3.7 MEQ/L CHLORIDE (test code = 2215) 103 MEQ/L CARBON DIOXIDE (test code = 27 MEQ/L 2205) CALCIUM (test code = 2209) 9.2 MG/DL PROTEIN, TOTAL (test code = 7.4 G/DL 2228) ALBUMIN (test code = 2201) 4.4 G/DL CALC GLOBULIN (test code = 3.0 G/DL 2239) CALC A/G RATIO (test code = 1.5 RATIO 2234) BILIRUBIN, TOTAL (test code = 0.4 MG/DL 2206) ALKALINE PHOSPHATASE (test 101 U/L code = 2204) AST (test code = 2218) 17 U/L ALT (test code = 2219) 16 U/L LIPID [id number] 00:00:00 Test Item Value Reference Range Interpretation Comments CHOLESTEROL (test code = 2210) 94 MG/DL TRIGLYCERIDES (test code = 2232) 142 MG/DL HDL CHOLESTEROL (test code = 2220) 33 MG/DL CALC LDL CHOL (test code = 2237) 38 MG/DL RISK RATIO LDL/HDL (test code = 1.15 RATIO 2238) LIPID [id number] 00:00:00 Test Item Value Reference Range Interpretation Comments CHOLESTEROL (test code = 2210) 94 MG/DL TRIGLYCERIDES (test code = 2232) 142 MG/DL HDL CHOLESTEROL (test code = 2220) 33 MG/DL CALC LDL CHOL (test code = 2237) 38 MG/DL RISK RATIO LDL/HDL (test code = 1.15 RATIO 2238) COMPREHENSIVE METABOLIC [id number] 00:00:00 Test Item Value Reference Range Interpretation Comments GLUCOSE (test code = 2217) 142 MG/DL BUN (test code = 2208) 10 MG/DL CREATININE (test code = 2214) 0.96 MG/DL eGFR AMER. (test code 102 ML/MIN/1.73 = 56550) eGFR NON- AMER. (test 88 ML/MIN/1.73 code = 49816) CALC BUN/CREAT (test code = 10 RATIO 2235) SODIUM (test code = 2231) 140 MEQ/L POTASSIUM (test code = 2228) 3.3 MEQ/L CHLORIDE (test code = 2215) 102 MEQ/L CARBON DIOXIDE (test code = 24 MEQ/L 2206) CALCIUM (test code = 2209) 8.7 MG/DL PROTEIN, TOTAL (test code = 6.9 G/DL 2228) ALBUMIN (test code = 2201) 3.8 G/DL CALC GLOBULIN (test code = 3.1 G/DL 2240) CALC A/G RATIO (test code = 1.2 RATIO 2234) BILIRUBIN, TOTAL (test code = 0.3 MG/DL 2206) ALKALINE PHOSPHATASE (test 122 U/L code = 220) AST (test code = 2218) 14 U/L ALT (test code = 2219) 15 U/L COMPREHENSIVE METABOLIC [id number] 00:00:00 Test Item Value Reference Range Interpretation Comments GLUCOSE (test code = 2217) 142 MG/DL BUN (test code = 2208) 10 MG/DL CREATININE (test code = 2214) 0.96 MG/DL eGFR AMER. (test code 102 ML/MIN/1.73 = 21894) eGFR NON- AMER. (test 88 ML/MIN/1.73 code = 11565) CALC BUN/CREAT (test code = 10 RATIO 2235) SODIUM (test code = 2231) 140 MEQ/L POTASSIUM (test code = 2228) 3.3 MEQ/L CHLORIDE (test code = 2215) 102 MEQ/L CARBON DIOXIDE (test code = 24 MEQ/L 2206) CALCIUM (test code = 2209) 8.7 MG/DL PROTEIN, TOTAL (test code = 6.9 G/DL 2228) ALBUMIN (test code = 2201) 3.8 G/DL CALC GLOBULIN (test code = 3.1 G/DL 2240) CALC A/G RATIO (test code = 1.2 RATIO 2234) BILIRUBIN, TOTAL (test code = 0.3 MG/DL 2206) ALKALINE PHOSPHATASE (test 122 U/L code = 2204) AST (test code = 2218) 14 U/L ALT (test code = 2219) 15 U/L LIPID [id number] 00:00:00 Test Item Value Reference Range Interpretation Comments CHOLESTEROL (test code = 2210) 94 MG/DL TRIGLYCERIDES (test code = 2232) 142 MG/DL HDL CHOLESTEROL (test code = 2220) 33 MG/DL CALC LDL CHOL (test code = 2237) 38 MG/DL RISK RATIO LDL/HDL (test code = 1.15 RATIO 2238) LIPID [id number] 00:00:00 Test Item Value Reference Range Interpretation Comments CHOLESTEROL (test code = 2210) 94 MG/DL TRIGLYCERIDES (test code = 2232) 142 MG/DL HDL CHOLESTEROL (test code = 2220) 33 MG/DL CALC LDL CHOL (test code = 2237) 38 MG/DL RISK RATIO LDL/HDL (test code = 1.15 RATIO 2238) COMPREHENSIVE METABOLIC [id number] 00:00:00 Test Item Value Reference Range Interpretation Comments GLUCOSE (test code = 2217) 142 MG/DL BUN (test code = 2208) 10 MG/DL CREATININE (test code = 2214) 0.96 MG/DL eGFR AMER. (test code 102 ML/MIN/1.73 = 42376) eGFR NON- AMER. (test 88 ML/MIN/1.73 code = 78489) CALC BUN/CREAT (test code = 10 RATIO 2235) SODIUM (test code = 2231) 140 MEQ/L POTASSIUM (test code = 2228) 3.3 MEQ/L CHLORIDE (test code = 2215) 102 MEQ/L CARBON DIOXIDE (test code = 24 MEQ/L 2205) CALCIUM (test code = 2209) 8.7 MG/DL PROTEIN, TOTAL (test code = 6.9 G/DL 2228) ALBUMIN (test code = 2201) 3.8 G/DL CALC GLOBULIN (test code = 3.1 G/DL 2240) CALC A/G RATIO (test code = 1.2 RATIO 2234) BILIRUBIN, TOTAL (test code = 0.3 MG/DL 2206) ALKALINE PHOSPHATASE (test 122 U/L code = 2204) AST (test code = 2218) 14 U/L ALT (test code = 2219) 15 U/L COMPREHENSIVE METABOLIC [id number] 00:00:00 Test Item Value Reference Range Interpretation Comments GLUCOSE (test code = 2217) 142 MG/DL BUN (test code = 2208) 10 MG/DL CREATININE (test code = 2214) 0.96 MG/DL eGFR AMER. (test code 102 ML/MIN/1.73 = 34063) eGFR NON- AMER. (test 88 ML/MIN/1.73 code = 16167) CALC BUN/CREAT (test code = 10 RATIO 2235) SODIUM (test code = 2231) 140 MEQ/L POTASSIUM (test code = 2228) 3.3 MEQ/L CHLORIDE (test code = 2215) 102 MEQ/L CARBON DIOXIDE (test code = 24 MEQ/L 2205) CALCIUM (test code = 2209) 8.7 MG/DL PROTEIN, TOTAL (test code = 6.9 G/DL 2228) ALBUMIN (test code = 2201) 3.8 G/DL CALC GLOBULIN (test code = 3.1 G/DL 2240) CALC A/G RATIO (test code = 1.2 RATIO 2233) BILIRUBIN, TOTAL (test code = 0.3 MG/DL 2206) ALKALINE PHOSPHATASE (test 122 U/L code = 2204) AST (test code = 2218) 14 U/L ALT (test code = 2219) 15 U/L HEMOGLOBIN [id number] 00:00:00 Test Item Value Reference Range Interpretation Comments HEMOGLOBIN A1c (test code = 23806) 9.0 % HEMOGLOBIN [id number] 00:00:00 Test Item Value Reference Range Interpretation Comments HEMOGLOBIN A1c (test code = 32195) 9.0 % HEMOGLOBIN [id number] 00:00:00 Test Item Value Reference Range Interpretation Comments HEMOGLOBIN A1c (test code = 40555) 9.0 % HEMOGLOBIN [id number] 00:00:00 Test Item Value Reference Range Interpretation Comments HEMOGLOBIN A1c (test code = 21219) 9.0 % HEMOGLOBIN [id number] 00:00:00 Test Item Value Reference Range Interpretation Comments HEMOGLOBIN A1c (test code = 77033) 9.0 % HEMOGLOBIN [id number] 00:00:00 Test Item Value Reference Range Interpretation Comments HEMOGLOBIN A1c (test code = 45336) 9.0 % POCT GLUCOSE (AUTOMATED)2019-12-07 22:15:00 Test Item Value Reference Range Interpretation Comments POCT GLU (test code = 7157781754) 114 mg/dL 70-110 H Lab Interpretation (test code = Abnormal 55082-6) [facility] 17:14:00 Test Item Value Reference Range Interpretation Comments POCT GLU (test code = 1603275459) 129 mg/dL 70-110 H Lab Interpretation (test code = Abnormal 79471-0) [facility] METABOLIC PANEL (NA, K, CL, CO2, GLUCOSE, BUN, CREATININE, CA)2019-12-07 14:51:00 Test Item Value Reference Range Interpretation Comments NA (test code = 141 mmol/L 135-145 8214217784) K (test code = 3.3 mmol/L 3.5-5 L 0560421932) CL (test code = 104 mmol/L 98-108 2175624205) CO2 TOTAL (test code = 30 mmol/L 23-31 4974119031) AGAP (test code = 2-16 6694994356) BUN (test code = 12 mg/dL 7-23 8689683243) GLUCOSE (test code = 127 mg/dL 70-110 H 4989279035) CREATININE (test code = 1.13 mg/dL 0.6-1.25 4693593813) CALCIUM (test code = 8.3 mg/dL 8.6-10.6 L 8626752682) eGFR Calculation mL/min/1.73m2 (Non-) (test code = 5760792472) eGFR Calculation mL/min/1.73m2 () (test code = 3206804194) LUIS (test code = LUIS) Association of Glomerular Filtration Rate (GFR) and Staging of Kidney Disease* + --+ --+ ------+| GFR (mL/min/1.73 m2) ?| With Kidney Damage ?| ?Without Kidney Damage+ --------+ --------+ +| ?>90 ?| ?Stage one ?| ? Normal ?+ ---+ ---+ -------+| ?60-89 ?| ?Stage two ?| ? Decreased GFR ? + --+ --+ ------+| ?30-59 ?| ?Stage three ?| ? Stage three ? + --+ --+ ------+| ?15-29 ?| ?Stage four ? | ? Stage four ?+ ---+ ---+ -------+| ?<15 (or dialysis) ? ?| ?Stage five ? | ? Stage five ?+ ---+ ---+ -------+ *Each stage assumes the associated GFR level has been in effect for at least three months. ?Stages 1 to 5, with or without kidney disease, indicate chronic kidney disease. Notes: Determination of stages one and two (with eGFR >59mL/min/1.73 m2) requires estimation of kidney damage for at least three months as defined by structural or functional abnormalities of the kidney, manifested by either:Pathological abnormalities or Markers of kidney damage (including abnormalities in the composition of the blood or urine or abnormalities in imaging tests). Lab Interpretation Abnormal (test code = 36308-3) [facility] WITH [id number] 14:34:00 Test Item Value Reference Range Interpretation Comments WBC (test code = See_Comment H [Automated 3291-2) message] The sy stem which generated this result transmitted reference range : 4.20 - 10.70 10*3/?L. The reference range was not used to interpret this result as normal/abnormal . RBC (test code = See_Comment L [Automated 789-8) message] The sy stem which generated this result transmitted reference range : 4.26 - 5.52 10*6/?L. The reference range was not used to interpret this result as normal/abnormal . HGB (test code = 9.5 g/dL 12.2-16.4 L 718-7) HCT (test code = 26.8 % 38.4-49.3 L 4544-3) MCV (test code = 87.6 fL 81.7-95.6 787-2) MCH (test code = 31.0 pg 26.1-32.7 785-6) MCHC (test code = 35.4 g/dL 31.2-35 H 786-4) RDW-SD (test code = 37.7 fL 38.5-51.6 L 16133-6) RDW-CV (test code = 11.9 % 12.1-15.4 L 788-0) PLT (test code = See_Comment [Automated 777-3) message] The sy stem which generated this result transmitted reference range : 150 - 328 10*3/ ?L. The reference r neno was not used to interpret this result as normal/abnormal . MPV (test code = 8.4 fL 9.8-13 L 74250-1) NRBC/100 WBC (test See_Comment [Automat ed code = 7527494123) message] The system which generated this result transmitted reference range : 0.0 - 10.0 /100 WBCs. The refer ence range was not u sed to interpret th is result as normal/abnormal . NRBC x10^3 (test code <0.01 See_Comment [Auto mated = 8506094870) message] The s ystem which generated this result transmitted reference range : 10*3/?L. The reference range was not used to interpret this result as normal/abnormal . GRAN MAT (NEUT) % 79.8 % (test code = 770-8) IMM GRAN % (test code 0.50 % = 0838718760) LYMPH % (test code = 10.6 % 736-9) MONO % (test code = 8.2 % 5905-5) EOS % (test code = 0.6 % 713-8) BASO % (test code = 0.3 % 706-2) GRAN MAT x10^3(ANC) 8.62 10*3/uL 1.99-6.95 H (test code = 0597398751) IMM GRAN x10^3 (test 0.05 10*3/uL 0-0.06 code = 4220024445) LYMPH x10^3 (test code 1.14 10*3/uL 1.09-3.23 = 731-0) MONO x10^3 (test code 0.89 10*3/uL 0.36-1.02 = 742-7) EOS x10^3 (test code = 0.07 10*3/uL 0.06-0.53 711-2) BASO x10^3 (test code 0.03 10*3/uL 0.01-0.09 = 704-7) Lab Interpretation Abnormal (test code = 39487-0) [facility] 13:14:00 Test Item Value Reference Range Interpretation Comments POCT GLU (test code = 0028117224) 127 mg/dL 70-110 H Lab Interpretation (test code = Abnormal 17713-6) [facility] GLUCOSE (AUTOMATED)2019-12-07 09:26:00 Test Item Value Reference Range Interpretation Comments POCT GLU (test code = 8669574911) 157 mg/dL 70-110 H Lab Interpretation (test code = Abnormal 94107-9) [facility] GLUCOSE (AUTOMATED)2019-12-07 05:06:00 Test Item Value Reference Range Interpretation Comments POCT GLU (test code = 8591762972) 244 mg/dL 70-110 H Lab Interpretation (test code = Abnormal 55452-9) [facility] GLUCOSE (AUTOMATED)2019-12-07 01:21:00 Test Item Value Reference Range Interpretation Comments POCT GLU (test code = 8481643449) 184 mg/dL 70-110 H Lab Interpretation (test code = Abnormal 62544-6) [facility] GLUCOSE (AUTOMATED)2019-12-06 23:42:00 Test Item Value Reference Range Interpretation Comments POCT GLU (test code = 1522453096) 99 mg/dL 70-110 Lab Interpretation (test code = Normal 72481-7) [facility]ID [facility]2019-12-06 18:13:00 Test Item Value Reference Range Interpretation Comments SARS-CoV-2 Rapid ID NOW Not Detected Not Detected (test code = 98568-6) LUIS (test code = LUIS) ID NOW COVID-19 Assay is an isothermal nucleic acid amplification test intended for the qualitative detection of nucleic acid from SARS-CoV-2 viral RNA in nasopharyngeal ([employer]) specimens. It is used under Emergency Use Authorization (EUA) by FDA. The limit of detection (LOD) of the assay is 125 Genome Equivalents/mL. A positive result is indicative of the presence of SARS-CoV-2 RNA. ?Clinical correlation with patient history and other diagnostic information is necessary to determine patient infection status. A negative (Not Detected) result does not preclude SARS-CoV-2 infection. In patients with clinical symptoms and other tests that are consistent with SARS-CoV-2 infection, negative results should be treated as presumptive negative and a new specimen should be tested with alternative PCR molecular test. Invalid: Please collect a new specimen for repeat patient testing if clinically indicated. Lab Interpretation Normal (test code = 38548-0) [facility] GLUCOSE (AUTOMATED)2019-12-06 16:57:00 Test Item Value Reference Range Interpretation Comments POCT GLU (test code = 2980465168) 107 mg/dL 70-110 Lab Interpretation (test code = Normal 33124-8) [facility] 13:17:00 Test Item Value Reference Range Interpretation Comments POCT GLU (test code = 1009529998) 103 mg/dL 70-110 Lab Interpretation (test code = Normal 35839-9) [facility] GLUCOSE (AUTOMATED)2019-12-06 09:17:00 Test Item Value Reference Range Interpretation Comments POCT GLU (test code = 6039742900) 103 mg/dL 70-110 Lab Interpretation (test code = Normal 48699-7) [facility] GLUCOSE (AUTOMATED)2019-12-06 05:25:00 Test Item Value Reference Range Interpretation Comments POCT GLU (test code = 9759927132) 115 mg/dL 70-110 H Lab Interpretation (test code = Abnormal 04661-0) [facility] GLUCOSE (AUTOMATED)2019-12-06 01:54:00 Test Item Value Reference Range Interpretation Comments POCT GLU (test code = 4402369813) 131 mg/dL 70-110 H Lab Interpretation (test code = Abnormal 68086-4) [facility] GLUCOSE (AUTOMATED)2019-12-05 22:05:00 Test Item Value Reference Range Interpretation Comments POCT GLU (test code = 8522675114) 192 mg/dL 70-110 H Lab Interpretation (test code = Abnormal 09556-9) [facility] GLUCOSE (AUTOMATED)2019-12-05 16:58:00 Test Item Value Reference Range Interpretation Comments POCT GLU (test code = 2203929251) 99 mg/dL 70-110 Lab Interpretation (test code = Normal 57865-2) [facility] 12:49:00 Test Item Value Reference Range Interpretation Comments POCT GLU (test code = 1594259668) 140 mg/dL 70-110 H Lab Interpretation (test code = Abnormal 23373-7) [facility] GLUCOSE (AUTOMATED)2019-12-05 10:00:00 Test Item Value Reference Range Interpretation Comments POCT GLU (test code = 9834757016) 128 mg/dL 70-110 H Lab Interpretation (test code = Abnormal 00842-8) [facility] GLUCOSE (AUTOMATED)2019-12-05 05:23:00 Test Item Value Reference Range Interpretation Comments POCT GLU (test code = 0565737626) 145 mg/dL 70-110 H Lab Interpretation (test code = Abnormal 61152-8) [facility] GLUCOSE (AUTOMATED)2019-12-04 21:28:00 Test Item Value Reference Range Interpretation Comments POCT GLU (test code = 7029082191) 149 mg/dL 70-110 H Lab Interpretation (test code = Abnormal 98223-3) [facility] GLUCOSE (AUTOMATED)2019-12-04 16:50:00 Test Item Value Reference Range Interpretation Comments POCT GLU (test code = 8429370468) 131 mg/dL 70-110 H Lab Interpretation (test code = Abnormal 04740-7) [facility] GLUCOSE (AUTOMATED)2019-12-04 13:33:00 Test Item Value Reference Range Interpretation Comments POCT GLU (test code = 2166840302) 117 mg/dL 70-110 H Lab Interpretation (test code = Abnormal 93024-0) [facility] METABOLIC PANEL (NA, K, CL, CO2, GLUCOSE, BUN, CREATININE, CA)2019-12-04 11:21:00 Test Item Value Reference Range Interpretation Comments NA (test code = 140 mmol/L 135-145 9581177596) K (test code = 3.3 mmol/L 3.5-5 L 0022719114) CL (test code = 105 mmol/L 98-108 1155597689) CO2 TOTAL (test code = 28 mmol/L 23-31 3253932876) AGAP (test code = 2-16 8870052245) BUN (test code = 9 mg/dL 7-23 1216892731) GLUCOSE (test code = 124 mg/dL 70-110 H 7417591866) CREATININE (test code = 1.04 mg/dL 0.6-1.25 4449994042) CALCIUM (test code = 8.7 mg/dL 8.6-10.6 2010875668) eGFR Calculation mL/min/1.73m2 (Non-) (test code = 4723932135) eGFR Calculation mL/min/1.73m2 () (test code = 2117284087) LUIS (test code = LUIS) Association of Glomerular Filtration Rate (GFR) and Staging of Kidney Disease* + --+ --+ ------+| GFR (mL/min/1.73 m2) ?| With Kidney Damage ?| ?Without Kidney Damage+ --------+ --------+ +| ?>90 ?| ?Stage one ?| ? Normal ?+ ---+ ---+ -------+| ?60-89 ?| ?Stage two ?| ? Decreased GFR ? + --+ --+ ------+| ?30-59 ?| ?Stage three ?| ? Stage three ? + --+ --+ ------+| ?15-29 ?| ?Stage four ? | ? Stage four ?+ ---+ ---+ -------+| ?<15 (or dialysis) ? ?| ?Stage five ? | ? Stage five ?+ ---+ ---+ -------+ *Each stage assumes the associated GFR level has been in effect for at least three months. ?Stages 1 to 5, with or without kidney disease, indicate chronic kidney disease. Notes: Determination of stages one and two (with eGFR >59mL/min/1.73 m2) requires estimation of kidney damage for at least three months as defined by structural or functional abnormalities of the kidney, manifested by either:Pathological abnormalities or Markers of kidney damage (including abnormalities in the composition of the blood or urine or abnormalities in imaging tests). Lab Interpretation Abnormal (test code = 20335-1) [facility] WITH [id number] 10:41:00 Test Item Value Reference Range Interpretation Comments WBC (test code = See_Comment [Automated 8690-2) message] The sy stem which generated this result transmitted reference range : 4.20 - 10.70 10*3/?L. The reference range was not used to interpret this result as normal/abnormal . RBC (test code = See_Comment L [Automated 179-8) message] The sy stem which generated this result transmitted reference range : 4.26 - 5.52 10*6/?L. The reference range was not used to interpret this result as normal/abnormal . HGB (test code = 10.5 g/dL 12.2-16.4 L 718-7) HCT (test code = 30.3 % 38.4-49.3 L 4544-3) MCV (test code = 90.4 fL 81.7-95.6 787-2) MCH (test code = 31.3 pg 26.1-32.7 785-6) MCHC (test code = 34.7 g/dL 31.2-35 786-4) RDW-SD (test code = 37.9 fL 38.5-51.6 L 47130-0) RDW-CV (test code = 11.8 % 12.1-15.4 L 788-0) PLT (test code = See_Comment [Automated 777-3) message] The sy stem which generated this result transmitted reference range : 150 - 328 10*3/ ?L. The reference r neno was not used to interpret this result as normal/abnormal . MPV (test code = 8.3 fL 9.8-13 L 65232-7) NRBC/100 WBC (test See_Comment [Automat ed code = 6256294712) message] The system which generated this result transmitted reference range : 0.0 - 10.0 /100 WBCs. The refer ence range was not u sed to interpret th is result as normal/abnormal . NRBC x10^3 (test code <0.01 See_Comment [Auto mated = 9399274114) message] The s ystem which generated this result transmitted reference range : 10*3/?L. The reference range was not used to interpret this result as normal/abnormal . GRAN MAT (NEUT) % 70.3 % (test code = 770-8) IMM GRAN % (test code 0.20 % = 3867423080) LYMPH % (test code = 18.6 % 736-9) MONO % (test code = 8.2 % 5905-5) EOS % (test code = 2.3 % 713-8) BASO % (test code = 0.4 % 706-2) GRAN MAT x10^3(ANC) 5.86 10*3/uL 1.99-6.95 (test code = 4112776427) IMM GRAN x10^3 (test <0.03 0-0.06 code = 8344887782) LYMPH x10^3 (test code 1.55 10*3/uL 1.09-3.23 = 731-0) MONO x10^3 (test code 0.68 10*3/uL 0.36-1.02 = 742-7) EOS x10^3 (test code = 0.19 10*3/uL 0.06-0.53 711-2) BASO x10^3 (test code 0.03 10*3/uL 0.01-0.09 = 704-7) Lab Interpretation Abnormal (test code = 66145-6) [facility] GLUCOSE (AUTOMATED)2019-12-04 05:06:00 Test Item Value Reference Range Interpretation Comments POCT GLU (test code = 6023986767) 126 mg/dL 70-110 H Lab Interpretation (test code = Abnormal 46613-8) [facility] GLUCOSE (AUTOMATED)2019-12-04 01:12:00 Test Item Value Reference Range Interpretation Comments POCT GLU (test code = 4244765559) 187 mg/dL 70-110 H Lab Interpretation (test code = Abnormal 30480-2) [facility] GLUCOSE (AUTOMATED)2019-12-03 21:14:00 Test Item Value Reference Range Interpretation Comments POCT GLU (test code = 8822840312) 117 mg/dL 70-110 H Lab Interpretation (test code = Abnormal 19216-1) [facility] GLUCOSE (AUTOMATED)2019-12-03 17:21:00 Test Item Value Reference Range Interpretation Comments POCT GLU (test code = 6454176060) 238 mg/dL 70-110 H Lab Interpretation (test code = Abnormal 69600-0) [facility] GLUCOSE (AUTOMATED)2019-12-03 13:37:00 Test Item Value Reference Range Interpretation Comments POCT GLU (test code = 4233443297) 173 mg/dL 70-110 H Lab Interpretation (test code = Abnormal 44081-0) [facility] (NA, K, CL, CO2, GLUCOSE, BUN, CREATININE, CA)2019-12-03 10:47:00 Test Item Value Reference Range Interpretation Comments NA (test code = 137 mmol/L 135-145 9069776586) K (test code = 3.2 mmol/L 3.5-5 L 4251357344) CL (test code = 101 mmol/L 98-108 2286955314) CO2 TOTAL (test code = 28 mmol/L 23-31 0860575329) AGAP (test code = 2-16 2631544685) BUN (test code = 12 mg/dL 7-23 5630658091) GLUCOSE (test code = 164 mg/dL 70-110 H 4524777412) CREATININE (test code = 1.15 mg/dL 0.6-1.25 8454606950) CALCIUM (test code = 8.4 mg/dL 8.6-10.6 L 7076872962) eGFR Calculation mL/min/1.73m2 (Non-) (test code = 2152128049) eGFR Calculation mL/min/1.73m2 () (test code = 5937192427) LUIS (test code = LUIS) Association of Glomerular Filtration Rate (GFR) and Staging of Kidney Disease* + --+ --+ ------+| GFR (mL/min/1.73 m2) ?| With Kidney Damage ?| ?Without Kidney Damage+ --------+ --------+ +| ?>90 ?| ?Stage one ?| ? Normal ?+ ---+ ---+ -------+| ?60-89 ?| ?Stage two ?| ? Decreased GFR ? + --+ --+ ------+| ?30-59 ?| ?Stage three ?| ? Stage three ? + --+ --+ ------+| ?15-29 ?| ?Stage four ? | ? Stage four ?+ ---+ ---+ -------+| ?<15 (or dialysis) ? ?| ?Stage five ? | ? Stage five ?+ ---+ ---+ -------+ *Each stage assumes the associated GFR level has been in effect for at least three months. ?Stages 1 to 5, with or without kidney disease, indicate chronic kidney disease. Notes: Determination of stages one and two (with eGFR >59mL/min/1.73 m2) requires estimation of kidney damage for at least three months as defined by structural or functional abnormalities of the kidney, manifested by either:Pathological abnormalities or Markers of kidney damage (including abnormalities in the composition of the blood or urine or abnormalities in imaging tests). Lab Interpretation Abnormal (test code = 31329-1) [facility] WITH [id number] 10:39:00 Test Item Value Reference Range Interpretation Comments WBC (test code = See_Comment [Automated 6690-2) message] The sy stem which generated this result transmitted reference range : 4.20 - 10.70 10*3/?L. The reference range was not used to interpret this result as normal/abnormal . RBC (test code = See_Comment L [Automated 789-8) message] The sy stem which generated this result transmitted reference range : 4.26 - 5.52 10*6/?L. The reference range was not used to interpret this result as normal/abnormal . HGB (test code = 9.8 g/dL 12.2-16.4 L 718-7) HCT (test code = 28.4 % 38.4-49.3 L 4544-3) MCV (test code = 90.4 fL 81.7-95.6 787-2) MCH (test code = 31.2 pg 26.1-32.7 785-6) MCHC (test code = 34.5 g/dL 31.2-35 786-4) RDW-SD (test code = 37.4 fL 38.5-51.6 L 42031-1) RDW-CV (test code = 11.5 % 12.1-15.4 L 788-0) PLT (test code = See_Comment [Automated 777-3) message] The sy stem which generated this result transmitted reference range : 150 - 328 10*3/ ?L. The reference r neno was not used to interpret this result as normal/abnormal . MPV (test code = 8.7 fL 9.8-13 L 39739-6) NRBC/100 WBC (test See_Comment [Automat ed code = 1465779994) message] The system which generated this result transmitted reference range : 0.0 - 10.0 /100 WBCs. The refer ence range was not u sed to interpret th is result as normal/abnormal . NRBC x10^3 (test code <0.01 See_Comment [Auto mated = 7224170806) message] The s ystem which generated this result transmitted reference range : 10*3/?L. The reference range was not used to interpret this result as normal/abnormal . GRAN MAT (NEUT) % 70.6 % (test code = 770-8) IMM GRAN % (test code 0.40 % = 3359558463) LYMPH % (test code = 18.0 % 736-9) MONO % (test code = 8.5 % 5905-5) EOS % (test code = 2.1 % 713-8) BASO % (test code = 0.4 % 706-2) GRAN MAT x10^3(ANC) 5.33 10*3/uL 1.99-6.95 (test code = 9725682186) IMM GRAN x10^3 (test 0.03 10*3/uL 0-0.06 code = 4612426349) LYMPH x10^3 (test code 1.36 10*3/uL 1.09-3.23 = 731-0) MONO x10^3 (test code 0.64 10*3/uL 0.36-1.02 = 742-7) EOS x10^3 (test code = 0.16 10*3/uL 0.06-0.53 711-2) BASO x10^3 (test code 0.03 10*3/uL 0.01-0.09 = 704-7) Lab Interpretation Abnormal (test code = 14129-6) [facility] GLUCOSE (AUTOMATED)2019-12-03 09:16:00 Test Item Value Reference Range Interpretation Comments POCT GLU (test code = 7352471937) 179 mg/dL 70-110 H Lab Interpretation (test code = Abnormal 66284-8) [facility] GLUCOSE (AUTOMATED)2019-12-03 05:53:00 Test Item Value Reference Range Interpretation Comments POCT GLU (test code = 7535398713) 227 mg/dL 70-110 H Lab Interpretation (test code = Abnormal 56556-6) [facility] GLUCOSE (AUTOMATED)2019-12-03 02:02:00 Test Item Value Reference Range Interpretation Comments POCT GLU (test code = 9405091411) 211 mg/dL 70-110 H Lab Interpretation (test code = Abnormal 38610-7) [facility] GLUCOSE (AUTOMATED)2019-12-03 01:29:00 Test Item Value Reference Range Interpretation Comments POCT GLU (test code = 3208877669) 213 mg/dL 70-110 H Lab Interpretation (test code = Abnormal 93995-0) [facility] 23:05:00 Test Item Value Reference Range Interpretation Comments POCT GLU (test code = 4428466215) 227 mg/dL 70-110 H Lab Interpretation (test code = Abnormal 24873-1) [facility] [id number] 19:54:00 Test Item Value Reference Range Interpretation Comments Case Report (test code Surgical Pathology ? ? = [id number]) ?Case: [id number] ? Authorizing Provider: ?Yadira Nick MD ? ? ?Collected: ? 11/27/2019 1507 ?Ordering Location: ? ? [facility] OR ? Received: ?11/28/2019 0907 ? Department ? Pathologist: ? Jeb, ? MD Rach ?Specimen: ? ?TOE, Left first and second toe ? Final Diagnosis (test u7zjzZXqFUDqg6rcJWQepR code = 7202915470) FuZzEwMzNcZnRuYmpcdWMx SUusrqLjWOqaz2NjR6VuWh AwMFxhbnNpXGRlZmxhbmcx UGClMFB2ujLiIVPoIUmvZC YjUQiiNr7lhLJzhXtsGoIx XVPdc6odcrBEduwkaYr3m6 lxJPIcQgH7sAViLYsoO5pu grQeiJTmEEYtYLn4xYidFm CmSLQqd6Crsb3lBYGqjJJw a9S4MDURz7VjyOFmDJ8orh q9oDldQ98hm5T4XuepN3yc RQOwAFLfE4YyHU8nFCNeMe z8LSL4UEA7GZFvVOVlA1Gs CL6qHMLbwPQhLSq6x0yriQ dfENZtWQS0a7klCQubnzUq EV4tvc8jdOd5w9xntgArQT IaKBAnkOPBXOIzO7KwhIwp Sc6pyLw8vWafVxklKWV4Jb b2CB5yew16nsc4lZceOIZd qjukCnV1JWbzPMNdbrffTC g0LAmgKHVcbQXjVUEqqLAr S0ScCNpgJH5dmef7IfHjKM 5lkygyHQojNQTzVOW8HyHe QZCcx8LygysrIcRfqq8nua 86QSD8g5IwsMgzFBX7ZTK7 FoDwVs9lxFKsNICnVP4wCu DhfARzMDXfwc79iTedKOmw vjXyfE5yXiYuXTIvsKClJC WaUEVbB4luHyKdsjArK6fm B8VbUJQfTQBeUJVjUcVghc Daw7Eszt74SDRerxMzb1Kw rXQcfLk1d3wjAUOtLPXtrY skj4peKTI8QCOdP4H1fVFr q4bzXPymFDRlxPX7isIfKH EaxPGbK1ButD4nRXkaAA3h bwv8m3wgVrThZT2auvvui0 efLNjjQTVzJDR1KbPnRWIy g8GbztxmHiHyd4OqjDKkNT apX14vs635TFCsrrUlE6ut bGFpblxwbGFpblxmMFxmcz G4HRYmXYPsGZylJWMfCLZn MjBcbGFuZzEwMzNcaGljaF oxQBukDfAxXSRfHYxtT7sq ZjFcZnMyMFxwYXJccGFyXG w8olNzofqnbQjpxGHhwukw ZIlntdR3QWWxWDpkWZRmAG ZzMjBcbGFuZzEwMzNcaGlj aFxmMVxkYmNoXGYxXGxvY2 adWzLlLgCmPUGCSnWNI4No JFhDAkZeUcmTP0VwES1XAI NBA49GGMOIN2UnWDSWWWOI USDEZ56diEUzVVHyjzPHYQ ZKBLHBD9K2JPVdSEdzVULw XGZzMjBcbGFuZzEwMzNcaG ljaFxmMlxkYmNoXGYyXGxv L9qjRcCbK9FsDFEpLzHlxU FyXHBsYWluXGYxXGZzMjBc bGFuZzEwMzNcaGljaFxmMV hrSfEcMPRbKZwgM8qlVyBf OhGgJUJeQDDeFL7yLCSEJK ZbD9GINN9GFDLHGPVLEvJR OHDEHyAEEjsiZO0oXlYHZS DSEA5GBO2VYkyRMdPjmHTl TADftgTmeDdvxJ1bYhLfEv MyNFxwbGFpblxmMVxmczIw WOfnbosnQDRfDTluA4mfEs IoLCQbuSomKJapd4LgFINn XGZzMjAgICAgICAtIElTQ0 vDSEeVXWsSJkhENS3RZYeP MXsbUGMSSETLOFAGE7DKI4 MaJz6WRTCRWU8QAEEkGHdn XGYyXGZzMjBcbGFuZzEwMz NcaGljaFxmMlxkYmNoXGYy MPywC2mnXcDgN3LrVJHdDe BccGFyXHFsXHBsYWluXGYw GGDnHjWrmBojsT9xNpKuIb GbUTjoWJ1lIKXmP0tokNHd ITJbECMmB5yoKlPenK3mhA xmMVxmczIwICAgICAgLSBT F0CZAVXGO7RWJYWIXYRMV7 JIP34tUAOEL4kENsWVE25g VklBQkxFXHBhclxsdHJwYX LdvJzsiPhfoS6pAqWuWcWg NFxwbGFpblxmMVxmczIwXG yoipjzEOMcKGgcB3hnIuWy HSMdbVubNBzxz6VjQXCuXO FtUjBgsINsQPXPA60KOEHA T1V5DDXnYBthKSWgZSPwIu BcbGFuZzEwMzNcaGljaFxm PcpdEpUbENUyFAcqK5ekId AqP2TwFHTnPsWizOOmBYIo wkRpnLcgxT8qFbNtTzVaJD xwbGFpblxmMVxmczIwXGxh mppkYDRzHBnnV5rzVvKiNE FctTiaOHrvk1FsZAPzUNDv NyNkPRXyOKWhEHvXL6xPZL qSMLxXCvoXUU9JDZbVLMob BDMIEJQWGJAEM5ILB6EkGw 5CAMJWGR7CDPTpbcMjRVFy XV4fEq5WDHyVDVesZVySHS YVWGSFLntOBTeFOvqHEJ9H ZRbVWnzbDt6lFQJYYIFgI5 EEGJ3IZCTETTBQC1ebAQGk ICAgICAtIEJPTkUgUkVTRU ZSIA1FDV2FSslPNnZEUGDI YZBrCU9OQR6PP5WYOGPAXL LRBhWPG1SRN60GMRpDWTaU XHBsYWluXGYyXGZzMjBcbG FuZzEwMzNcaGljaFxmMlxk PeCnGLRrPCxqN9moLnErD0 YyXGZzMjBccGFyXHFsXHBs YWluXGYwXGZzMjRccGxhaW 7mTdYpUfAqBIakXT9xECBk R4zbpFIsMYWeKBAwD5smIs ItuD8ewFwyFOqoldIsPAFx PFLrVWUUF6JDZKUNH9AKQK QSQSMWS5ZGM80nWGXMX5uF BsGQT13oYztDVvzJKVXifn roNUFzeAgayD9gRcKtFkQe IqtuYO5lKGGrT5ufrZLxYX NdKKFdV8thWrNxtI4hwAnt MVxjZjJcZnMyMiBYaWFvdG WoChLQnBqtEHPkECyxOd3v MDIwICAxOjQzIFBNXHBsYW luXGYxXGZzMjBcbGFuZzEw MzNcaGljaFxmMVxkYmNoXG LhDGvcV4ikVhWyGvAxRMwi GZCfjWCiKQCctf08XZI1Np Qdb0R5IUSkYlLhJHTjZL0q zKntNFGeHC2cUUMsX6xzaB 4tbhg1IgUlPBFiEoI2QDGd qiX7Dtv6BAQoXZeuq2gya9 GhF9IgkMUykZo0u9jyPDKo NiB4pSIfKMfuB2uqkzFihD IaPLTjOMd8oFufPsDfMKEn z4asnlGdYyOiEHJaKQJuDW EzyIkjvug6gK30ZKMlpO4r uAJgPVpyjjVsGyM3ISwuFD RlUbV6BOShhETqTODzV2hi ZWQwXGdyZWVuMFxibHVlMC L0qSutv5J3vYMklMEqaLol YbRdSwQjMRHOe8WeOVr7bV qpL5KcMKClWzA9mFRdQIIc VHhqGIMwWJVmhuZ9kC22MM wlioF9cFQkx0Alb01ug851 cS4mdIVxADR0EYCrDHWjzE FdELAvZRN2CACxiIVsM5hc HHQeKO3dpljeJYeaHAivLW PzpKH2ZHAdxCKnF5PxELDv XBhoCRIkpjw3YfDyQd6puA AvmGyrDVmoa7gel9ovmSQz Gms2SRUvFwBwQogfCEjvo6 Shw6khKURtmb8iVRU1pTDd cZkvc5U9cGEbJYAdaDVsnx BwRVJvHaU1ZFdbYA2xfe54 JPRyVJA2ha0elNDcsGggxj WpiEThXGlzA5BsZNAfu005 EYPjB2VaUGAog1B8yiOsHx VdKHEbtFG2meX5TBDfWGo1 rZFzmpJ8axPnsECuY1zgbY 9dTKUvKJ5nxjmkw1enCMud JOxpWMDkiCA7teL0UJMncK MrU5OtkO1xYJGlRFucIKPr qyc8BhYvJd3voKWbnYafTI xzYmtwYWdlXHBnbmNvbnRc cGduZGVjXHBsYWluXHBsYW luXGYwXGZzMjRccWxccGxh eK6eLtWaQsUcOKcpZD4rCE RpG6yltFEaFYZqIRCsI9rb VuGrtU6gbYxyATixHpUuYe MyMFxwYXIgSSBoYXZlIHBl jiUwsrExoFsuanF4eJV1VJ HvRZsxMFTeIAUjgPFrfx8r iQnsNLTzKC6bBKYrfdOwJT nrdCooJWakEMY6AROaiAKe dHMgbWFkZSBieSByZXNpZG CfhNBvOFTydZhry8Qkx1Wn vIS9zF5fq6kqu7DzOHUuhG A7DL51umY6eC8nLJDyXU8b YNAgCV0sfYRigBWaNBFoo1 4gdGhpcyByZXBvcnQuXHBs YWluXGYyXGZzMjhcbGFuZz EwMzNcaGljaFxmMlxkYmNo PUQzSAneF3ibKhWhAbVyUZ vfTCB2mU== Clinical Information [place] of toe of (test code = left foot [I96] [id number]) Gross Description (test t1cnhRJkOUTgaYLfDhFxCQ code = 7173110956) PeMOPia3aqKUKeuEZzYtJy MzNcZnRuYmpcdWMxXGRlZm Tef6cpf401pAFco1ljVXAq XcC8eUYdLXIeuLTaJ680UG YpEOhex0fkz6EnRIFkbMDj t3Y0SSHElbyhmJy7lSxyI2 5oq9N4GzpiH3qbRRQuBNzy YGUrTFsqmKNcAMI7APFeDU O9EUfuqlAmisX5BQmpjBLh ToC8UXr0v7ryrJzeMNVrCZ T0e2qaVOxwhoQgQZ2iks7a dLo2j7itpsQuCBOkJLOxyZ ZSXUAoN1CcaLkoOd1ezHj8 hAscKdcrYNH2Wgt8GD5mdm 50vmw7zUajHQWfsdsxWfL5 NRmoKVDwszkgHUg5TKetZT KgsKOnVVWgqFUgF1DiWHtv YO1kewp9TiTxPL0rxxfxCU yoZWUzFZD9HwHsKPWly3Rp tizaBdBzvl1dqu54GOR3l2 VowDnlIHZ4MEM5QpKqTw8r xHBaTCGuCL2eTiUdbWFaSP Hncg10mMlvGGgckzAujJ2f JwWhMUXlgWPjHTAlUS6dlN MhNLIkwS1hkphpKYCyPfAa gvczQDWmvCasqpIlHn3biY ljFQI1MFdtM9jqdJ2wMiG9 MYmrO8vjiN9pXXf5HJrboB O3LAAjpW1mZL3drdmjq5rd RLO8JNxjJXPgvuG9jxUdKS HscETeQ1CjpH98ZuFrnJEe I2XjuS4mGJpxQCAgltl9Sb NzSu3ceJGrmEL2NHufJvoy YWdlXHBnbmNvbnRccGduZG VjXHBsYWluXHBsYWluXGYw FWWbUmCzqHfoiBhwcJ0aSl BcZnMyMFxwbGFpblxmMVxm czIwIFNwZWNpbWVuIEEgaX FuhhSjYKw7JNZraR0nZm2m zJAhlU0zcAIsNPeeOBN6nY IwAGZlYPZkSSPnQO63Q9Qz bmFtZSwgVUggbnVtYmVyIC SrUEM8XTXwwiI1LXBcROGb YHArrsAluE9wXeimQO6iZQ KxpcHae8NyWN6fIUPhAhrx s0ZgMDhcaEWeXLTcQQP0YH AyVTS0FYVuFrXibOylAT2k LRXnf8Tcx44rJECcW0l2AQ u5RhNakHCvPaabaFUvGkja T64lZGTzhQjjj6h4tEKgXS CftYibNF4jQJTqm83mOSTf x4VmeXvorcTdHQNcdD5deF xlt0SlvPG2nRZeyTPhvDbr EMqjtPillCVleC7hOw63cY PpmHzgbZDeAYBkGOXiyq2t xDHbaZTxGXB9z2e1TRahlB rzi2uovWwbvJ2fYDQppR1u XR8hLMVfcYOwQU6gWTB4t1 MnVCstai0fAMeiVWKvzuK9 PGRrM7p2INejxgLkacI7lH DrmqZufhB0qMCuiLX0JAYf tHFlm2JnU2KmGDCtHFP9GW HlVvL2UTKgHeCkvJgcqCpb qOTjkpBpOgSlK70oHiAczW O9bYNgjbKxqyKyaNVoa2kd O7BlWxMuaGfps1JnNYJfr8 RqdKeahnTlGKIqnY1jKJ8z EKSeWdMlvTOlqz5cIHIsWM Mbv09eMLHyf4IhrArheoEx HTQdmY8gNL6nURUhWWRqBI ckJLRyt15iINJstN7stDHk ROBiXXFaXYKmnlE1jTXvyE BxhTGuOGXntUJhmLNaUC65 FErdTI90NTYlGFQ1dIW2ZN xvYAMlULGydEQvfz5cQJQr CCMcc0T2HTNgj0S9QSZiEY VdI0Rxe20ldKRdJ4ocOKAh CIAkWeRaZ11lDdPubFG6iW GgMo3sBJXbZSNiC6Lrn37q qMHjN3zuQhUQxBAlPrvto7 CnVVhtlPQujHTdz3BuaIuc rwUiBCQsAXZzxkHxdPB6JL 4tcmVkLCBmaXJtIGJvbmUg N3K7NRW0uaHxW8IdCTQaCH M8LE9rqwXsZQFhOCkzOJmt Y2LnEB4fs26oiSM2yBSzaD GtE8G3HJE6gpYgI3NaEiEL bVHzk8Lyi27aKYCcU7m9XP fsMNRvJ3Ymi77gQMT3iwAq ZXZlYWwgdGFuLXJlZCwgZm spyLLuu01iWAS7wVEgdEQj ASEaeoTmjzLtnCZaGAT5iq AuOGisCICrb1iob66zqQA6 rYVqvLHzI3H0QJI5jkJpO0 VzLiBSZXByZXNlbnRhdGl2 OTPzNAR2qD1giiSxexHcc1 KkpNh4mCZwZAmeCXDiZEV6 LPMab5ssy3easddmRJZgOZ qzsOPgA2T7mS6kZL2hAOLf MFM0FUHtXBETAF3FXY6qzQ DlLYGedvTZKSZ4oW6qFJFu OYN5ZOJvpfDUAN7DIkvxEp qvq1CxXVnciSUee6kblfIt gjBjm86ukRT4uZPamPOyie OvZBV5sE7yAS0hherkbzhh BG09iGZwfPeqVZXzPUKtX1 VccGFyIEEzOiBGaXJzdCBk qXrkcGHul10mSXAmm3HshV grxjOkQXKbxV4xBPSptAxq SNk2STNagaXoXTJeVZRfrs YCUT6YOWhgYwapf1CwIYyl nMMxH3Yop1Swe3YfdAygls pjRscaWPI4XZRgPJSmKImk D8g9SLVhwVsvEUTgiB6aUS FiWR2qOD30iT0yWldbDQIh xbKwDZfhPTO1CDDtkdSDVe 5RCoifU8Bqj59yGAMbA9g6 ITWuiV5oNJ0fVMOrKeZsoX tky2HcSWLki7GbvIuwbfDs OTCydQ1lIYDfhGlaEDs0DI BlbiBmYWNlXHBhciBBODog Y6Odw75aORIrP4c3EVWupb MoagTuMQP9oN1rDO3iyahg bgqpEM20lUDvfNrmLEBgJL UgY0RhkHIlSBF4LuFEQNUs zaXvSWkflAKpZ2Mdf5Wrd5 VjdGlvblxwYXJccGFyXHBh flDxnPshcV6wPiPiCpLhTR dsfSKvscttHSgnvwNnFA2i vyczSURvRHN3u8HgJXUniF auHGNXhZQtBL52NRVscfIN uJgmXQMQZ3xtsIObXTgxSQ GKUJtBQ1VPHZosDBNlpVip tFftzJ0sEoCxEnHwVOduzD FpblxmMVxmczIwXHBhclxw YXJ9 Embedded Images (test code = 0533533347) [facility] GLUCOSE (AUTOMATED)2019-12-02 17:08:00 Test Item Value Reference Range Interpretation Comments POCT GLU (test code = 3390661839) 192 mg/dL 70-110 H Lab Interpretation (test code = Abnormal 30709-3) [facility] GLUCOSE (AUTOMATED)2019-12-02 12:59:00 Test Item Value Reference Range Interpretation Comments POCT GLU (test code = 7970972400) 150 mg/dL 70-110 H Lab Interpretation (test code = Abnormal 25036-5) [facility] GLUCOSE (AUTOMATED)2019-12-02 09:52:00 Test Item Value Reference Range Interpretation Comments POCT GLU (test code = 9306750557) 132 mg/dL 70-110 H Lab Interpretation (test code = Abnormal 39532-3) [facility] GLUCOSE (AUTOMATED)2019-12-02 06:13:00 Test Item Value Reference Range Interpretation Comments POCT GLU (test code = 7629672674) 132 mg/dL 70-110 H Lab Interpretation (test code = Abnormal 51787-0) [facility] - Draw immediately prior to the NEXT dose, but, no more than 60 minutes before the NEXT dose. 2019-12-02 05:04:00 Test Item Value Reference Range Interpretation Comments VANCO TROUGH (test code 19.1 ug/mL 10-20 = 5014003492) LUIS (test code = LUIS) Toxic Range: ?>20 ug/mL 15-20 ug/mL is recommended for severe infection or when Vancomycin LISA is greater than or equal to 2. Lab Interpretation (test Normal code = 02796-4) [facility] GLUCOSE (AUTOMATED)2019-12-02 02:23:00 Test Item Value Reference Range Interpretation Comments POCT GLU (test code = 2147910900) 195 mg/dL 70-110 H Lab Interpretation (test code = Abnormal 48055-0) [facility] GLUCOSE (AUTOMATED)2019-12-01 21:48:00 Test Item Value Reference Range Interpretation Comments POCT GLU (test code = 9394200597) 239 mg/dL 70-110 H Lab Interpretation (test code = Abnormal 35319-9) [facility] GLUCOSE (AUTOMATED)2019-12-01 17:29:00 Test Item Value Reference Range Interpretation Comments POCT GLU (test code = 1904747479) 159 mg/dL 70-110 H Lab Interpretation (test code = Abnormal 57424-5) [facility] GLUCOSE (AUTOMATED)2019-12-01 13:28:00 Test Item Value Reference Range Interpretation Comments POCT GLU (test code = 2863654049) 158 mg/dL 70-110 H Lab Interpretation (test code = Abnormal 84057-0) [facility] METABOLIC PANEL (NA, K, CL, CO2, GLUCOSE, BUN, CREATININE, CA)2019-12-01 10:24:00 Test Item Value Reference Range Interpretation Comments NA (test code = 138 mmol/L 135-145 8900602182) K (test code = 3.4 mmol/L 3.5-5 L 2913372230) CL (test code = 104 mmol/L 98-108 7515474537) CO2 TOTAL (test code = 26 mmol/L 23-31 6816497433) AGAP (test code = 2-16 6980053366) BUN (test code = 9 mg/dL 7-23 7656954269) GLUCOSE (test code = 170 mg/dL 70-110 H 5425934564) CREATININE (test code = 0.87 mg/dL 0.6-1.25 5614366080) CALCIUM (test code = 8.5 mg/dL 8.6-10.6 L 7721514270) eGFR Calculation mL/min/1.73m2 (Non-) (test code = 0570625487) eGFR Calculation mL/min/1.73m2 () (test code = 1049958909) LUIS (test code = LUIS) Association of Glomerular Filtration Rate (GFR) and Staging of Kidney Disease* + --+ --+ ------+| GFR (mL/min/1.73 m2) ?| With Kidney Damage ?| ?Without Kidney Damage+ --------+ --------+ +| ?>90 ?| ?Stage one ?| ? Normal ?+ ---+ ---+ -------+| ?60-89 ?| ?Stage two ?| ? Decreased GFR ? + --+ --+ ------+| ?30-59 ?| ?Stage three ?| ? Stage three ? + --+ --+ ------+| ?15-29 ?| ?Stage four ? | ? Stage four ?+ ---+ ---+ -------+| ?<15 (or dialysis) ? ?| ?Stage five ? | ? Stage five ?+ ---+ ---+ -------+ *Each stage assumes the associated GFR level has been in effect for at least three months. ?Stages 1 to 5, with or without kidney disease, indicate chronic kidney disease. Notes: Determination of stages one and two (with eGFR >59mL/min/1.73 m2) requires estimation of kidney damage for at least three months as defined by structural or functional abnormalities of the kidney, manifested by either:Pathological abnormalities or Markers of kidney damage (including abnormalities in the composition of the blood or urine or abnormalities in imaging tests). Lab Interpretation Abnormal (test code = 93677-9) [facility] WITH [id number] 10:13:00 Test Item Value Reference Range Interpretation Comments WBC (test code = See_Comment [Automated 3990-2) message] The sy stem which generated this result transmitted reference range : 4.20 - 10.70 10*3/?L. The reference range was not used to interpret this result as normal/abnormal . RBC (test code = See_Comment L [Automated 769-8) message] The sy stem which generated this result transmitted reference range : 4.26 - 5.52 10*6/?L. The reference range was not used to interpret this result as normal/abnormal . HGB (test code = 10.6 g/dL 12.2-16.4 L 718-7) HCT (test code = 29.4 % 38.4-49.3 L 4544-3) MCV (test code = 88.0 fL 81.7-95.6 787-2) MCH (test code = 31.7 pg 26.1-32.7 785-6) MCHC (test code = 36.1 g/dL 31.2-35 H 786-4) RDW-SD (test code = 36.7 fL 38.5-51.6 L 52639-0) RDW-CV (test code = 11.4 % 12.1-15.4 L 788-0) PLT (test code = See_Comment [Automated 777-3) message] The sy stem which generated this result transmitted reference range : 150 - 328 10*3/ ?L. The reference r neno was not used to interpret this result as normal/abnormal . MPV (test code = 8.7 fL 9.8-13 L 30696-8) NRBC/100 WBC (test See_Comment [Automat ed code = 7737813444) message] The system which generated this result transmitted reference range : 0.0 - 10.0 /100 WBCs. The refer ence range was not u sed to interpret th is result as normal/abnormal . NRBC x10^3 (test code <0.01 See_Comment [Auto mated = 5230553983) message] The s ystem which generated this result transmitted reference range : 10*3/?L. The reference range was not used to interpret this result as normal/abnormal . GRAN MAT (NEUT) % 72.7 % (test code = 770-8) IMM GRAN % (test code 0.40 % = 5807911325) LYMPH % (test code = 16.4 % 736-9) MONO % (test code = 8.3 % 5905-5) EOS % (test code = 1.8 % 713-8) BASO % (test code = 0.4 % 706-2) GRAN MAT x10^3(ANC) 5.76 10*3/uL 1.99-6.95 (test code = 8145603018) IMM GRAN x10^3 (test 0.03 10*3/uL 0-0.06 code = 7168322130) LYMPH x10^3 (test code 1.30 10*3/uL 1.09-3.23 = 731-0) MONO x10^3 (test code 0.66 10*3/uL 0.36-1.02 = 742-7) EOS x10^3 (test code = 0.14 10*3/uL 0.06-0.53 711-2) BASO x10^3 (test code 0.03 10*3/uL 0.01-0.09 = 704-7) Lab Interpretation Abnormal (test code = 78742-2) [facility] GLUCOSE (AUTOMATED)2019-12-01 09:40:00 Test Item Value Reference Range Interpretation Comments POCT GLU (test code = 6135418864) 171 mg/dL 70-110 H Lab Interpretation (test code = Abnormal 67502-7) [facility] GLUCOSE (AUTOMATED)2019-12-01 05:50:00 Test Item Value Reference Range Interpretation Comments POCT GLU (test code = 9160483123) 196 mg/dL 70-110 H Lab Interpretation (test code = Abnormal 57755-6) [facility] CULTURE [id number] 02:45:00 Test Item Value Reference Range Interpretation Comments Blood Culture-Aerobic No organisms No growth Previo us (test code = 02926-7) isolated prelim inary verified result was Culture In Progress on 11/26/2019 at 03 30 CDTPrevious preliminary verified result was No growth a t 24 hours on 11/26/2019 at 20 04 CDTPrevious preliminary verified result was No growth a t 48 hours on 11/27/2019 at 20 04 CDTPrevious preliminary verified result was No growth a t 72 hours on 11/28/2019 at 22 02 CDT Blood No organisms No growth Previous Culture-Anaerobic isolated preliminar y (test code = 91870-1) verifi ed result was Culture In Progress on 11/26/2019 at 03 30 CDTPrevious preliminary verified result was No growth a t 24 hours on 11/26/2019 at 22 CDTPrevious preliminary verified result was No growth a t 48 hours on 11/27/2019 at 22 CDTPrevious preliminary verified result was No growth a t 72 hours on 11/28/2019 at 22 02 CDT Lab Interpretation Normal (test code = 36695-6) [facility] CULTURE [id number] 02:44:00 Test Item Value Reference Range Interpretation Comments Blood Culture-Aerobic No organisms No growth Previo us (test code = 15421-8) isolated prelim inary verified result was Culture In Progress on 11/26/2019 at 03 30 CDTPrevious preliminary verified result was No growth a t 24 hours on 11/26/2019 at 22 CDTPrevious preliminary verified result was No growth a t 48 hours on 11/27/2019 at 22 CDTPrevious preliminary verified result was No growth a t 72 hours on 11/28/2019 at 22 02 CDT Blood No organisms No growth Previous Culture-Anaerobic isolated preliminar y (test code = 74649-2) verifi ed result was Culture In Progress on 11/26/2019 at 01 01 CDTPrevious preliminary verified result was No growth a t 24 hours on 11/26/2019 at 22 01 CDTPrevious preliminary verified result was No growth a t 48 hours on 11/27/2019 at 22 01 CDTPrevious preliminary verified result was No growth a t 72 hours on 11/28/2019 at 22 02 CDT Lab Interpretation Normal (test code = 50760-7) [facility] GLUCOSE (AUTOMATED)2019-12-01 01:55:00 Test Item Value Reference Range Interpretation Comments POCT GLU (test code = 2050930660) 289 mg/dL 70-110 H Lab Interpretation (test code = Abnormal 96376-5) [facility] [id number] 23:43:27 Test Item Value Reference Range Interpretation Comments ABO & RH (test code O POSITIVE Performe d at [facility] = 20) Laboratory Serv [facility] Blood Bank3 [facility] s [address]Nool Free: [phone] A No. [id number] IAT (test code = Negative Performed a t [facility] 1185) Laboratory Serv [facility] Blood [facility]3 [address] [facility] s [id number] Free: [phone] A No. [id number] [facility] GLUCOSE (AUTOMATED)2019-11-30 22:10:00 Test Item Value Reference Range Interpretation Comments POCT GLU (test code = 1748208412) 147 mg/dL 70-110 H Lab Interpretation (test code = Abnormal 20090-5) [facility] CULTURE(AEROBIC/ANAEROBIC)2019-11-30 18:38:00 Test Item Value Reference Range Interpretation Comments TISSUE CULTURE (test No aerobic/anaerobic code = 96838-2) organisms isolated Gram stain (test code No PMNs or Mononuclear = 664-3) cells observed [facility] CULTURE(AEROBIC/ANAEROBIC)2019-11-30 16:54:00 Test Item Value Reference Range Interpretation Comments TISSUE CULTURE 2+ Streptococcus [place] (test code = [place] [address]-6) consistent with organism above Gram stain No PMNs or (test code = Mononuclear cells 664-3) observed [facility] GLUCOSE (AUTOMATED)2019-11-30 15:56:00 Test Item Value Reference Range Interpretation Comments POCT GLU (test code = 4120991872) 223 mg/dL 70-110 H Lab Interpretation (test code = Abnormal 88586-5) [facility] - Draw immediately prior to the 4TH dose, but, no more than 60 minutes before the 4TH dose. 2019-11-30 15:34:00 Test Item Value Reference Range Interpretation Comments VANCO TROUGH (test code 15.4 ug/mL 10-20 = 9077145765) LUIS (test code = LUIS) Toxic Range: ?>20 ug/mL 15-20 ug/mL is recommended for severe infection or when Vancomycin LISA is greater than or equal to 2. Lab Interpretation (test Normal code = 52230-6) [facility] GLUCOSE (AUTOMATED)2019-11-30 13:25:00 Test Item Value Reference Range Interpretation Comments POCT GLU (test code = 3797883681) 143 mg/dL 70-110 H Lab Interpretation (test code = Abnormal 17898-3) [facility] (NA, K, CL, CO2, GLUCOSE, BUN, CREATININE, CA)2019-11-30 10:57:00 Test Item Value Reference Range Interpretation Comments NA (test code = 139 mmol/L 135-145 1751343633) K (test code = 3.4 mmol/L 3.5-5 L 8131795401) CL (test code = 103 mmol/L 98-108 0450827107) CO2 TOTAL (test code = 28 mmol/L 23-31 2906387451) AGAP (test code = 2-16 3070909603) BUN (test code = 7 mg/dL 7-23 6171692040) GLUCOSE (test code = 131 mg/dL 70-110 H 6521298043) CREATININE (test code = 0.76 mg/dL 0.6-1.25 3741671930) CALCIUM (test code = 8.3 mg/dL 8.6-10.6 L 9014134198) eGFR Calculation mL/min/1.73m2 (Non-) (test code = 5774747202) eGFR Calculation mL/min/1.73m2 () (test code = 9019323392) LUIS (test code = LUIS) Association of Glomerular Filtration Rate (GFR) and Staging of Kidney Disease* + --+ --+ ------+| GFR (mL/min/1.73 m2) ?| With Kidney Damage ?| ?Without Kidney Damage+ --------+ --------+ +| ?>90 ?| ?Stage one ?| ? Normal ?+ ---+ ---+ -------+| ?60-89 ?| ?Stage two ?| ? Decreased GFR ? + --+ --+ ------+| ?30-59 ?| ?Stage three ?| ? Stage three ? + --+ --+ ------+| ?15-29 ?| ?Stage four ? | ? Stage four ?+ ---+ ---+ -------+| ?<15 (or dialysis) ? ?| ?Stage five ? | ? Stage five ?+ ---+ ---+ -------+ *Each stage assumes the associated GFR level has been in effect for at least three months. ?Stages 1 to 5, with or without kidney disease, indicate chronic kidney disease. Notes: Determination of stages one and two (with eGFR >59mL/min/1.73 m2) requires estimation of kidney damage for at least three months as defined by structural or functional abnormalities of the kidney, manifested by either:Pathological abnormalities or Markers of kidney damage (including abnormalities in the composition of the blood or urine or abnormalities in imaging tests). Lab Interpretation Abnormal (test code = 81632-7) [facility] WITH [id number] 10:26:00 Test Item Value Reference Range Interpretation Comments WBC (test code = See_Comment [Automated 9130-2) message] The sy stem which generated this result transmitted reference range : 4.20 - 10.70 10*3/?L. The reference range was not used to interpret this result as normal/abnormal . RBC (test code = See_Comment L [Automated 359-8) message] The sy stem which generated this result transmitted reference range : 4.26 - 5.52 10*6/?L. The reference range was not used to interpret this result as normal/abnormal . HGB (test code = 10.6 g/dL 12.2-16.4 L 718-7) HCT (test code = 29.2 % 38.4-49.3 L 4544-3) MCV (test code = 87.2 fL 81.7-95.6 787-2) MCH (test code = 31.6 pg 26.1-32.7 785-6) MCHC (test code = 36.3 g/dL 31.2-35 H 786-4) RDW-SD (test code = 35.8 fL 38.5-51.6 L 48127-8) RDW-CV (test code = 11.3 % 12.1-15.4 L 788-0) PLT (test code = See_Comment H [Automated 777-3) message] The sy stem which generated this result transmitted reference range : 150 - 328 10*3/ ?L. The reference r neno was not used to interpret this result as normal/abnormal . MPV (test code = 9.0 fL 9.8-13 L 09624-4) NRBC/100 WBC (test See_Comment [Automat ed code = 9074812528) message] The system which generated this result transmitted reference range : 0.0 - 10.0 /100 WBCs. The refer ence range was not u sed to interpret th is result as normal/abnormal . NRBC x10^3 (test code <0.01 See_Comment [Auto mated = [id number]) message] The s ystem which generated this result transmitted reference range : 10*3/?L. The reference range was not used to interpret this result as normal/abnormal . GRAN MAT (NEUT) % 74.5 % (test code = 770-8) IMM GRAN % (test code 0.50 % = 9729784003) LYMPH % (test code = 14.7 % 736-9) MONO % (test code = 8.5 % 5905-5) EOS % (test code = 1.5 % 713-8) BASO % (test code = 0.3 % 706-2) GRAN MAT x10^3(ANC) 6.57 10*3/uL 1.99-6.95 (test code = 3052335418) IMM GRAN x10^3 (test 0.04 10*3/uL 0-0.06 code = 9783118210) LYMPH x10^3 (test code 1.30 10*3/uL 1.09-3.23 = 731-0) MONO x10^3 (test code 0.75 10*3/uL 0.36-1.02 = 742-7) EOS x10^3 (test code = 0.13 10*3/uL 0.06-0.53 711-2) BASO x10^3 (test code 0.03 10*3/uL 0.01-0.09 = 704-7) Lab Interpretation Abnormal (test code = 85720-5) [facility] GLUCOSE (AUTOMATED)2019-11-30 09:23:00 Test Item Value Reference Range Interpretation Comments POCT GLU (test code = 5309157059) 140 mg/dL 70-110 H Lab Interpretation (test code = Abnormal 57832-0) [facility] GLUCOSE (AUTOMATED)2019-11-30 04:51:00 Test Item Value Reference Range Interpretation Comments POCT GLU (test code = 3107776521) 206 mg/dL 70-110 H Lab Interpretation (test code = Abnormal 21211-4) [facility] GLUCOSE (AUTOMATED)2019-11-30 01:36:00 Test Item Value Reference Range Interpretation Comments POCT GLU (test code = 2648066651) 201 mg/dL 70-110 H Lab Interpretation (test code = Abnormal 10995-2) [facility] GLUCOSE (AUTOMATED)2019-11-30 01:32:00 Test Item Value Reference Range Interpretation Comments POCT GLU (test code = 7346058688) 232 mg/dL 70-110 H Lab Interpretation (test code = Abnormal 62829-5) [facility] GLUCOSE (AUTOMATED)2019-11-29 23:17:00 Test Item Value Reference Range Interpretation Comments POCT GLU (test code = 7179074491) 202 mg/dL 70-110 H Lab Interpretation (test code = Abnormal 69959-7) [facility] GLUCOSE (AUTOMATED)2019-11-29 17:01:00 Test Item Value Reference Range Interpretation Comments POCT GLU (test code = 7428653800) 283 mg/dL 70-110 H Lab Interpretation (test code = Abnormal 28615-2) [facility] 12:40:00 Test Item Value Reference Range Interpretation Comments POCT GLU (test code = 1476526045) 207 mg/dL 70-110 H Lab Interpretation (test code = Abnormal 90510-5) [facility] METABOLIC PANEL (NA, K, CL, CO2, GLUCOSE, BUN, CREATININE, CA)2019-11-29 10:27:00 Test Item Value Reference Range Interpretation Comments NA (test code = 134 mmol/L 135-145 L 0807642902) K (test code = 3.0 mmol/L 3.5-5 L 3156448504) CL (test code = 98 mmol/L 98-108 2551923401) CO2 TOTAL (test code = 31 mmol/L 23-31 7220845624) AGAP (test code = 2-16 8693503100) BUN (test code = 4 mg/dL 7-23 L 9205228904) GLUCOSE (test code = 180 mg/dL 70-110 H 4097951376) CREATININE (test code = 0.39 mg/dL 0.6-1.25 L 4251977243) CALCIUM (test code = 7.8 mg/dL 8.6-10.6 L 0952141000) eGFR Calculation mL/min/1.73m2 (Non-) (test code = 8207002720) eGFR Calculation mL/min/1.73m2 () (test code = 2648157500) LUIS (test code = LUIS) Association of Glomerular Filtration Rate (GFR) and Staging of Kidney Disease* + --+ --+ ------+| GFR (mL/min/1.73 m2) ?| With Kidney Damage ?| ?Without Kidney Damage+ --------+ --------+ +| ?>90 ?| ?Stage one ?| ? Normal ?+ ---+ ---+ -------+| ?60-89 ?| ?Stage two ?| ? Decreased GFR ? + --+ --+ ------+| ?30-59 ?| ?Stage three ?| ? Stage three ? + --+ --+ ------+| ?15-29 ?| ?Stage four ? | ? Stage four ?+ ---+ ---+ -------+| ?<15 (or dialysis) ? ?| ?Stage five ? | ? Stage five ?+ ---+ ---+ -------+ *Each stage assumes the associated GFR level has been in effect for at least three months. ?Stages 1 to 5, with or without kidney disease, indicate chronic kidney disease. Notes: Determination of stages one and two (with eGFR >59mL/min/1.73 m2) requires estimation of kidney damage for at least three months as defined by structural or functional abnormalities of the kidney, manifested by either:Pathological abnormalities or Markers of kidney damage (including abnormalities in the composition of the blood or urine or abnormalities in imaging tests). Lab Interpretation Abnormal (test code = 20401-1) [facility] WITH [id number] 09:54:00 Test Item Value Reference Range Interpretation Comments WBC (test code = See_Comment [Automated 3890-2) message] The sy stem which generated this result transmitted reference range : 4.20 - 10.70 10*3/?L. The reference range was not used to interpret this result as normal/abnormal . RBC (test code = See_Comment L [Automated 789-8) message] The sy stem which generated this result transmitted reference range : 4.26 - 5.52 10*6/?L. The reference range was not used to interpret this result as normal/abnormal . HGB (test code = 11.9 g/dL 12.2-16.4 L 718-7) HCT (test code = 33.1 % 38.4-49.3 L 4544-3) MCV (test code = 87.1 fL 81.7-95.6 787-2) MCH (test code = 31.3 pg 26.1-32.7 785-6) MCHC (test code = 36.0 g/dL 31.2-35 H 786-4) RDW-SD (test code = 35.2 fL 38.5-51.6 L 75914-8) RDW-CV (test code = 11.2 % 12.1-15.4 L 788-0) PLT (test code = See_Comment [Automated 777-3) message] The sy stem which generated this result transmitted reference range : 150 - 328 10*3/ ?L. The reference r neno was not used to interpret this result as normal/abnormal . MPV (test code = 8.9 fL 9.8-13 L 83341-8) NRBC/100 WBC (test See_Comment [Automat ed code = 8670595220) message] The system which generated this result transmitted reference range : 0.0 - 10.0 /100 WBCs. The refer ence range was not u sed to interpret th is result as normal/abnormal . NRBC x10^3 (test code <0.01 See_Comment [Auto mated = 6916949055) message] The s ystem which generated this result transmitted reference range : 10*3/?L. The reference range was not used to interpret this result as normal/abnormal . GRAN MAT (NEUT) % 77.2 % (test code = 770-8) IMM GRAN % (test code 0.50 % = 2065578860) LYMPH % (test code = 13.2 % 736-9) MONO % (test code = 8.1 % 5905-5) EOS % (test code = 0.8 % 713-8) BASO % (test code = 0.2 % 706-2) GRAN MAT x10^3(ANC) 6.62 10*3/uL 1.99-6.95 (test code = 1775978124) IMM GRAN x10^3 (test 0.04 10*3/uL 0-0.06 code = 9202242200) LYMPH x10^3 (test code 1.13 10*3/uL 1.09-3.23 = 731-0) MONO x10^3 (test code 0.69 10*3/uL 0.36-1.02 = 742-7) EOS x10^3 (test code = 0.07 10*3/uL 0.06-0.53 711-2) BASO x10^3 (test code <0.03 0.01-0.09 = 704-7) Lab Interpretation Abnormal (test code = 96524-8) [facility] GLUCOSE (AUTOMATED)2019-11-29 09:37:00 Test Item Value Reference Range Interpretation Comments POCT GLU (test code = 6355748343) 184 mg/dL 70-110 H Lab Interpretation (test code = Abnormal 87524-8) [facility] 04:45:00 Test Item Value Reference Range Interpretation Comments POCT GLU (test code = 5153839195) 237 mg/dL 70-110 H Lab Interpretation (test code = Abnormal 86691-5) [facility] METABOLIC PANEL (NA, K, CL, CO2, GLUCOSE, BUN, CREATININE, CA)2019-11-29 04:24:00 Test Item Value Reference Range Interpretation Comments NA (test code = 132 mmol/L 135-145 L 6811430047) K (test code = 3.1 mmol/L 3.5-5 L 4637393059) CL (test code = 98 mmol/L 98-108 2144750719) CO2 TOTAL (test code = 31 mmol/L 23-31 4623112360) AGAP (test code = 2-16 1693231535) BUN (test code = 4 mg/dL 7-23 L 1574232691) GLUCOSE (test code = 229 mg/dL 70-110 H 0369948526) CREATININE (test code = 0.42 mg/dL 0.6-1.25 L 6354814167) CALCIUM (test code = 8.0 mg/dL 8.6-10.6 L 5001814241) eGFR Calculation mL/min/1.73m2 (Non-) (test code = 5544134539) eGFR Calculation mL/min/1.73m2 () (test code = 4278037596) LUIS (test code = LUIS) Association of Glomerular Filtration Rate (GFR) and Staging of Kidney Disease* + --+ --+ ------+| GFR (mL/min/1.73 m2) ?| With Kidney Damage ?| ?Without Kidney Damage+ --------+ --------+ +| ?>90 ?| ?Stage one ?| ? Normal ?+ ---+ ---+ -------+| ?60-89 ?| ?Stage two ?| ? Decreased GFR ? + --+ --+ ------+| ?30-59 ?| ?Stage three ?| ? Stage three ? + --+ --+ ------+| ?15-29 ?| ?Stage four ? | ? Stage four ?+ ---+ ---+ -------+| ?<15 (or dialysis) ? ?| ?Stage five ? | ? Stage five ?+ ---+ ---+ -------+ *Each stage assumes the associated GFR level has been in effect for at least three months. ?Stages 1 to 5, with or without kidney disease, indicate chronic kidney disease. Notes: Determination of stages one and two (with eGFR >59mL/min/1.73 m2) requires estimation of kidney damage for at least three months as defined by structural or functional abnormalities of the kidney, manifested by either:Pathological abnormalities or Markers of kidney damage (including abnormalities in the composition of the blood or urine or abnormalities in imaging tests). Lab Interpretation Abnormal (test code = 13666-6) [facility] GLUCOSE (AUTOMATED)2019-11-29 01:48:00 Test Item Value Reference Range Interpretation Comments POCT GLU (test code = 2648328976) 227 mg/dL 70-110 H Lab Interpretation (test code = Abnormal 88635-2) [facility] GLUCOSE (AUTOMATED)2019-11-28 22:28:00 Test Item Value Reference Range Interpretation Comments POCT GLU (test code = 2280309478) 208 mg/dL 70-110 H Lab Interpretation (test code = Abnormal 36071-3) [facility] GLUCOSE (AUTOMATED)2019-11-28 19:56:00 Test Item Value Reference Range Interpretation Comments POCT GLU (test code = 7909499781) 198 mg/dL 70-110 H Lab Interpretation (test code = Abnormal 66968-9) [facility] GLUCOSE (AUTOMATED)2019-11-28 16:56:00 Test Item Value Reference Range Interpretation Comments POCT GLU (test code = 9354394897) 127 mg/dL 70-110 H Lab Interpretation (test code = Abnormal 94659-3) [facility] GLUCOSE (AUTOMATED)2019-11-28 13:43:00 Test Item Value Reference Range Interpretation Comments POCT GLU (test code = 9295512101) 163 mg/dL 70-110 H Lab Interpretation (test code = Abnormal 46702-3) [facility] WITH [id number] 11:40:00 Test Item Value Reference Range Interpretation Comments WBC (test code = See_Comment H [Automated 6690-2) message] The sy stem which generated this result transmitted reference range : 4.20 - 10.70 10*3/?L. The reference range was not used to interpret this result as normal/abnormal . RBC (test code = See_Comment L [Automated 789-8) message] The sy stem which generated this result transmitted reference range : 4.26 - 5.52 10*6/?L. The reference range was not used to interpret this result as normal/abnormal . HGB (test code = 11.1 g/dL 12.2-16.4 L 718-7) HCT (test code = 30.7 % 38.4-49.3 L 4544-3) MCV (test code = 85.3 fL 81.7-95.6 787-2) MCH (test code = 30.8 pg 26.1-32.7 785-6) MCHC (test code = 36.2 g/dL 31.2-35 H 786-4) RDW-SD (test code = 33.8 fL 38.5-51.6 L 66088-7) RDW-CV (test code = 10.8 % 12.1-15.4 L 788-0) PLT (test code = See_Comment H [Automated 777-3) message] The sy stem which generated this result transmitted reference range : 150 - 328 10*3/ ?L. The reference r neno was not used to interpret this result as normal/abnormal . MPV (test code = 9.0 fL 9.8-13 L 96754-2) NRBC/100 WBC (test See_Comment [Automat ed code = 3880329519) message] The system which generated this result transmitted reference range : 0.0 - 10.0 /100 WBCs. The refer ence range was not u sed to interpret th is result as normal/abnormal . NRBC x10^3 (test code <0.01 See_Comment [Auto mated = 8836805350) message] The s ystem which generated this result transmitted reference range : 10*3/?L. The reference range was not used to interpret this result as normal/abnormal . GRAN MAT (NEUT) % 82.9 % (test code = 770-8) IMM GRAN % (test code 0.60 % = 3605708599) LYMPH % (test code = 8.2 % 736-9) MONO % (test code = 7.4 % 5905-5) EOS % (test code = 0.7 % 713-8) BASO % (test code = 0.2 % 706-2) GRAN MAT x10^3(ANC) 8.89 10*3/uL 1.99-6.95 H (test code = 4240675113) IMM GRAN x10^3 (test 0.06 10*3/uL 0-0.06 code = 9758686826) LYMPH x10^3 (test code 0.88 10*3/uL 1.09-3.23 L = 731-0) MONO x10^3 (test code 0.79 10*3/uL 0.36-1.02 = 742-7) EOS x10^3 (test code = 0.07 10*3/uL 0.06-0.53 711-2) BASO x10^3 (test code <0.03 0.01-0.09 = 704-7) Lab Interpretation Abnormal (test code = 38828-6) [facility] METABOLIC PANEL (NA, K, CL, CO2, GLUCOSE, BUN, CREATININE, CA)2019-11-28 11:17:00 Test Item Value Reference Range Interpretation Comments NA (test code = 133 mmol/L 135-145 L 0626216571) K (test code = 2.6 mmol/L 3.5-5 LL 1578397127) CL (test code = 94 mmol/L 98-108 L 9920308230) CO2 TOTAL (test code = 30 mmol/L 23-31 4014353530) AGAP (test code = 2-16 4377536838) BUN (test code = 3 mg/dL 7-23 L 3008098523) GLUCOSE (test code = 152 mg/dL 70-110 H 2377150828) CREATININE (test code = 0.36 mg/dL 0.6-1.25 L 4199981050) CALCIUM (test code = 7.8 mg/dL 8.6-10.6 L 0305861822) eGFR Calculation mL/min/1.73m2 (Non-) (test code = 2791299833) eGFR Calculation mL/min/1.73m2 () (test code = 9254880339) LUIS (test code = LUIS) Association of Glomerular Filtration Rate (GFR) and Staging of Kidney Disease* + --+ --+ ------+| GFR (mL/min/1.73 m2) ?| With Kidney Damage ?| ?Without Kidney Damage+ --------+ --------+ +| ?>90 ?| ?Stage one ?| ? Normal ?+ ---+ ---+ -------+| ?60-89 ?| ?Stage two ?| ? Decreased GFR ? + --+ --+ ------+| ?30-59 ?| ?Stage three ?| ? Stage three ? + --+ --+ ------+| ?15-29 ?| ?Stage four ? | ? Stage four ?+ ---+ ---+ -------+| ?<15 (or dialysis) ? ?| ?Stage five ? | ? Stage five ?+ ---+ ---+ -------+ *Each stage assumes the associated GFR level has been in effect for at least three months. ?Stages 1 to 5, with or without kidney disease, indicate chronic kidney disease. Notes: Determination of stages one and two (with eGFR >59mL/min/1.73 m2) requires estimation of kidney damage for at least three months as defined by structural or functional abnormalities of the kidney, manifested by either:Pathological abnormalities or Markers of kidney damage (including abnormalities in the composition of the blood or urine or abnormalities in imaging tests). Lab Interpretation Abnormal (test code = 43005-4) [facility] GLUCOSE (AUTOMATED)2019-11-28 09:02:00 Test Item Value Reference Range Interpretation Comments POCT GLU (test code = 8376223510) 151 mg/dL 70-110 H Lab Interpretation (test code = Abnormal 60896-8) [facility] - Draw within 30 minutes prior to 4TH dose.2019-11-28 06:09:00 Test Item Value Reference Range Interpretation Comments VANCO TROUGH (test code 5.5 ug/mL 10-20 L = 5546864747) LUIS (test code = LUIS) Toxic Range: ?>20 ug/mL 15-20 ug/mL is recommended for severe infection or when Vancomycin LISA is greater than or equal to 2. Lab Interpretation (test Abnormal code = 03662-8) [facility] GLUCOSE (AUTOMATED)2019-11-28 05:10:00 Test Item Value Reference Range Interpretation Comments POCT GLU (test code = 8988185912) 213 mg/dL 70-110 H Lab Interpretation (test code = Abnormal 43772-9) [facility] GLUCOSE (AUTOMATED)2019-11-28 01:10:00 Test Item Value Reference Range Interpretation Comments POCT GLU (test code = 6070200152) 204 mg/dL 70-110 H Lab Interpretation (test code = Abnormal 95382-2) [facility] GLUCOSE (AUTOMATED)2019-11-27 22:11:00 Test Item Value Reference Range Interpretation Comments POCT GLU (test code = 6603174464) 159 mg/dL 70-110 H Lab Interpretation (test code = Abnormal 85857-3) [facility]REPORT[facility]2019-11-27 21:39:17 These images do not require a Radiology diagnostic report.[facility]MR [facility] LEFT W WO [id number] 14:58:43Soft tissue gas surrounding the first and second digits with ulceration atthe first MTP joint with osteomyelitis suspected about the great toeproximal phalanx and base of the great toe distal phalanx along with thehallux metatarsal sesamoids and possibly the fourth digit distal phalanxgiven ulcerationat this site. EXAM: MRI LEFT FOOT WITH AND WITHOUT IV CONTRAST HISTORY: Osteomyelitis suspected, foot swelling, diabetic Please rule outosteomyelitis COMPARISON: Plain films dated 11/25/2019 TECHNIQUE AND FINDINGS: 3T multiplanar multiweighted MR imaging of the left foot was performed withutilization of 12 cc IV ProHance. Mottled signal voids surrounding the first and second digits with arim-enhancingplantar medial first digit ulceration. ?Enhancement with V0ebbyyz increase and mild T1 signal decreas e involve the great toe proximalphalanx, subcortical base of the great toe distal phalanx, and the halluxmetatarsal sesamoids. Subcortical cystic change with enhancement is seenabout the first metatarsal head. Diffuse T1 signal decrease, T2 signalincrease with enhancement is seen throughout the distal phalanx of thefourth digit with attenuation of the overlying soft tissues. Mild T2 signalincrease and enhancement affects the middle phalanx of the second digit atthe articular margins of the second digit PIP joint. ?Patchy degenerativesubcortical and intramedullary cystic foci with enhancement are seen withinthe talar dome/body. ?Mild edema is seen throughout the intrinsicmusculature of the foot with edema and enhancement along the plantar aspectand, to a lesser extent, dorsal aspect first through third MTP joints. Norim-enhancing fluid collection is seen. [facility], Radiant Results Inft User - 11/27/2019 9:59 AM CDTEXAM:MRI LEFT FOOT WITH AND WITHOUT IV CONTRAST HISTORY: Osteomyelitis suspected, footswelling, diabetic Please rule outosteomyelitisCOMPARISON: Plain films dated 11/25/2019TECHNIQUE AND FINDINGS:3T multiplanar multiweighted MR imaging of the left foot was performed withutilization of 12cc IV ProHance.Mottled signal voids surrounding the first and second digits with arim-enhancing plantar medial first digit ulceration. Enhancement with P8vdtwgk increase and mild T1 signal decrease involve the great toe proximalphalanx, subcortical base of the great toe distal phalanx, and the halluxmetatarsal sesamoids. Subcortical cystic change with enhancement is seenabout the first metatarsal head. Diffuse T1 signal decrease, T2 signalincrease with enhancement is seen throughout the distal phalanx of thefourth digit with attenuation of the overlying soft tissues. Mild T2 signalincrease and enhancement affects the middle phalanx of the second digit atthe articular margins of the second digit PIP joint. Patchy degenerativesubcortical and intramedullary cystic foci with enhancement are seen withinthe talar dome/body. Mild edema is seen throughout the intrinsicmusculature of the foot with edema and enhancement along the plantar aspectand, to a lesser extent, dorsal aspect first through third MTP joints. Norim-enhancing fluid collection is seen.IMPRESSIONSoft tissue gas surrounding the first and second digits with ulceration atthe first MTP joint with osteomyelitis suspected about the great toeproximal phalanx and base of the great toe distal phalanx along with thehallux metatarsal sesamoids and possibly the fourth digit distal phalanxgiven ulceration at this site.[facility]2019-11-27 14:04:00 Test Item Value Reference Range Interpretation Comments POCT GLU (test code = 7202478378) 182 mg/dL 70-110 H Lab Interpretation (test code = Abnormal 99231-9) [facility]2020-[facility]-30 12:36:00 Test Item Value Reference Range Interpretation Comments MAGNESIUM (test code = 2185179954) 2.0 mg/dL 1.7-2.4 Lab Interpretation (test code = Normal 34344-3) [facility] CenterABORH [id number] 12:03:33 Test Item Value Reference Range Interpretation Comments ABO & RH (test code O Positive Performe d at [facility] = 20) Laboratory Serv [facility] [place] [id number] Free: [phone] A No. [id number] [facility] (NA, K, CL, CO2, GLUCOSE, BUN, CREATININE, CA)2019-11-27 11:21:00 Test Item Value Reference Range Interpretation Comments NA (test code = 133 mmol/L 135-145 L 4283796999) K (test code = 2.6 mmol/L 3.5-5 LL 1918117114) CL (test code = 95 mmol/L 98-108 L 2362038096) CO2 TOTAL (test code = 29 mmol/L 23-31 2769694582) AGAP (test code = 2-16 6857332879) BUN (test code = 5 mg/dL 7-23 L 1376843919) GLUCOSE (test code = 187 mg/dL 70-110 H 1146095246) CREATININE (test code = 0.44 mg/dL 0.6-1.25 L 9675054308) CALCIUM (test code = 8.0 mg/dL 8.6-10.6 L 0018065757) eGFR Calculation mL/min/1.73m2 (Non-) (test code = 3342520508) eGFR Calculation mL/min/1.73m2 () (test code = 6753415855) LUIS (test code = LUIS) Association of Glomerular Filtration Rate (GFR) and Staging of Kidney Disease* + --+ --+ ------+| GFR (mL/min/1.73 m2) ?| With Kidney Damage ?| ?Without Kidney Damage+ --------+ --------+ +| ?>90 ?| ?Stage one ?| ? Normal ?+ ---+ ---+ -------+| ?60-89 ?| ?Stage two ?| ? Decreased GFR ? + --+ --+ ------+| ?30-59 ?| ?Stage three ?| ? Stage three ? + --+ --+ ------+| ?15-29 ?| ?Stage four ? | ? Stage four ?+ ---+ ---+ -------+| ?<15 (or dialysis) ? ?| ?Stage five ? | ? Stage five ?+ ---+ ---+ -------+ *Each stage assumes the associated GFR level has been in effect for at least three months. ?Stages 1 to 5, with or without kidney disease, indicate chronic kidney disease. Notes: Determination of stages one and two (with eGFR >59mL/min/1.73 m2) requires estimation of kidney damage for at least three months as defined by structural or functional abnormalities of the kidney, manifested by either:Pathological abnormalities or Markers of kidney damage (including abnormalities in the composition of the blood or urine or abnormalities in imaging tests). Lab Interpretation Abnormal (test code = 34467-1) [facility] WITH [id number] 10:21:00 Test Item Value Reference Range Interpretation Comments WBC (test code = See_Comment H [Automated 6690-2) message] The sy stem which generated this result transmitted reference range : 4.20 - 10.70 10*3/?L. The reference range was not used to interpret this result as normal/abnormal . RBC (test code = See_Comment L [Automated 789-8) message] The sy stem which generated this result transmitted reference range : 4.26 - 5.52 10*6/?L. The reference range was not used to interpret this result as normal/abnormal . HGB (test code = 11.7 g/dL 12.2-16.4 L 718-7) HCT (test code = 31.3 % 38.4-49.3 L 4544-3) MCV (test code = 85.1 fL 81.7-95.6 787-2) MCH (test code = 31.8 pg 26.1-32.7 785-6) MCHC (test code = 37.4 g/dL 31.2-35 H 786-4) RDW-SD (test code = 33.7 fL 38.5-51.6 L 71114-8) RDW-CV (test code = 10.9 % 12.1-15.4 L 788-0) PLT (test code = See_Comment H [Automated 777-3) message] The sy stem which generated this result transmitted reference range : 150 - 328 10*3/ ?L. The reference r neno was not used to interpret this result as normal/abnormal . MPV (test code = 9.0 fL 9.8-13 L 71870-2) NRBC/100 WBC (test See_Comment [Automat ed code = 4008874030) message] The system which generated this result transmitted reference range : 0.0 - 10.0 /100 WBCs. The refer ence range was not u sed to interpret th is result as normal/abnormal . NRBC x10^3 (test code <0.01 See_Comment [Auto mated = 6697123927) message] The s ystem which generated this result transmitted reference range : 10*3/?L. The reference range was not used to interpret this result as normal/abnormal . GRAN MAT (NEUT) % 78.2 % (test code = 770-8) IMM GRAN % (test code 0.60 % = 6976936644) LYMPH % (test code = 12.4 % 736-9) MONO % (test code = 7.7 % 5905-5) EOS % (test code = 0.8 % 713-8) BASO % (test code = 0.3 % 706-2) GRAN MAT x10^3(ANC) 8.47 10*3/uL 1.99-6.95 H (test code = 9761498153) IMM GRAN x10^3 (test 0.07 10*3/uL 0-0.06 H code = 1541726418) LYMPH x10^3 (test code 1.34 10*3/uL 1.09-3.23 = 731-0) MONO x10^3 (test code 0.84 10*3/uL 0.36-1.02 = 742-7) EOS x10^3 (test code = 0.09 10*3/uL 0.06-0.53 711-2) BASO x10^3 (test code 0.03 10*3/uL 0.01-0.09 = 704-7) Lab Interpretation Abnormal (test code = 26742-5) [facility] GLUCOSE (AUTOMATED)2019-11-27 10:14:00 Test Item Value Reference Range Interpretation Comments POCT GLU (test code = 9192986504) 172 mg/dL 70-110 H Lab Interpretation (test code = Abnormal 46984-4) [facility] - ONCE [id number] 09:41:31 Test Item Value Reference Range Interpretation Comments ABO & RH (test code O POSITIVE Performe d at [facility] = 20) Laboratory Serv [facility] Blood Bank3 [address] [facility] s [id number] Free: [phone] A No. [id number] IAT (test code = Negative Performed a t [facility] 1185) Laboratory Serv [facility] Blood [facility]3 01 [facility] s [id number] Free: [phone] A No. [id number] [facility] GLUCOSE (AUTOMATED)2019-11-27 04:28:00 Test Item Value Reference Range Interpretation Comments POCT GLU (test code = 8534190621) 189 mg/dL 70-110 H Lab Interpretation (test code = Abnormal 02250-0) [facility] Center[facility] (Total Cholesterol, Triglycerides, HDL) - [id number] 01:28:00 Test Item Value Reference Range Interpretation Comments CHOL (test code = 117 mg/dL 120-200 L 2343577410) HDL (test code = 19 mg/dL >40 L 1700826409) HDLC RATIO (test code = See_Comment H [Au tomated message] 2738988266) The system The Rowing Team generated this result transmit alex reference range : <=5.0. The refe rence range was not u sed to interpret th is result as normal/abnormal . TRIG (test code = 122 mg/dL 30-170 6296429035) LDL CHOL (test code = 74 mg/dL See_Comment [Auto mated message] 70643-7) The system The Rowing Team generated this result transmit alex reference range : <=160. The refe rence range was not u sed to interpret th is result as normal/abnormal . VLDL (test code = 24 mg/dL 5-60 1236754967) Lab Interpretation (test Abnormal code = 66743-0) [facility] GLUCOSE (AUTOMATED)2019-11-27 01:27:00 Test Item Value Reference Range Interpretation Comments POCT GLU (test code = 0826031072) 252 mg/dL 70-110 H Lab Interpretation (test code = Abnormal 20429-9) [facility] GLUCOSE (AUTOMATED)2019-11-26 19:07:00 Test Item Value Reference Range Interpretation Comments POCT GLU (test code = 5938435325) 192 mg/dL 70-110 H Lab Interpretation (test code = Abnormal 87200-9) [facility] GLUCOSE (AUTOMATED)2019-11-26 14:12:00 Test Item Value Reference Range Interpretation Comments POCT GLU (test code = 5387846715) 181 mg/dL 70-110 H Lab Interpretation (test code = Abnormal 76380-0) [facility] CenterXR [facility] <3 VW [id number] 11:24:50 Soft tissue defect and extensive soft tissue swelling and gas surroundingthe first and second toes without underlying acute bony abnormality. No radiopaque foreign body identified. Preliminary Report Dictated by Resident: Priscilla Taylor I, Ha Barnes MD., have reviewed this study and agree with theabovereport.EXAM: XR FOOT <3 VW LEFT HISTORY: 54 years-old Male with Left great toe/second/third d igit ulcer,gangrene. R/O Fx, FB, Osteo, Gas COMPARISON: None. FINDINGS: Radiographs of the left footdemonstrate no acute fractures ordislocations. Extensive soft tissue swelling and gas is noted abouttheplantar and dorsal soft tissues surrounding the first and second toes. Softtissue defect is notedat the plantar aspect of the great toe. Noradiopaque foreign body identified. No bony destruction orperiostitis isidentified. Joint spaces are preserved. Alignment is within normal limits.An os peroneum is present. Diabetic type vascular calcifications are noted. [facility], Radiant Results Inft User - 11/26/2019 6:25 AM CDTEXAM: XR FOOT <3 VW LEFTHISTORY: 54 years-old Male with Left great toe/second/third digit ulcer,gangrene. R/O Fx, FB, Osteo, Gas COMPARISON: None.FINDINGS: Radiographs of the left foot demonstrate no acute fractures ordislocations. Extensive soft tissue swelling and gas is noted about theplantar and dorsal soft tissues surrounding the first and second toes. Softtissue defect is noted at the plantar aspect of the great toe. Noradiopaque foreign body identified. No bony destruction or periostitis isidentified. Joint spaces are preserved. Alignment is within normal limits.An os peroneum is present. Diabetic type vascular calcifications are noted.IMPRESSIONSoft tissue defect and ex tensive soft tissue swelling and gas surroundingthe first and second toes without underlying acute bony abnormality.No radiopaque foreign body identified.Preliminary Report Dictated by Resident: Priscilla Sotelo, Ha Barnes MD., have reviewed this study and agree with the abovereport.[facility] CenterLamnic Acid Whole [id number] 09:42:00 Test Item Value Reference Range Interpretation Comments LACTIC ACID (test code = 1.12 mmol/L QUE S 4256929829) [facility] CenterPOPR [facility] (AUTOMATED)2019-11-26 09:38:00 Test Item Value Reference Range Interpretation Comments POCT GLU (test code = 6678070272) 211 mg/dL 70-110 H Lab Interpretation (test code = Abnormal 95596-5) [facility] CenterGlycosylated Hemoglobin (A1C)2019-11-26 07:30:00 Test Item Value Reference Range Interpretation Comments HGB A1C (test code = 10.8 % 4-6 H 4548-4) LUIS (test code = LUIS) %A1C (NGSP) Interpretation (ADA)4.8-5.6 ? ? Normal or (Non-Diabetic Range)5.7-6.4 ? ? Increased Risk (Pre-Diabetic)>6.5 ?Diabetes Indicated Lab Interpretation Abnormal (test code = 99796-3) [facility] WITH [id number] 03:47:00 Test Item Value Reference Range Interpretation Comments WBC (test code = See_Comment H [Automated 6690-2) message] The system which generated this result transmit alex reference range : 4.20 - 10.70 10*3/?L. The reference range was not used to interpret this result as normal/abnormal . RBC (test code = See_Comment L [Automated 789-8) message] The system which generated this result transmit alex reference range : 4.26 - 5.52 10*6/?L. The reference range was not used to interpret this result as normal/abnormal . HGB (test code = 12.8 g/dL 12.2-16.4 718-7) HCT (test code = 35.2 % 38.4-49.3 L 4544-3) MCV (test code = 85.4 fL 81.7-95.6 787-2) MCH (test code = 31.1 pg 26.1-32.7 785-6) MCHC (test code = 36.4 g/dL 31.2-35 H 786-4) RDW-SD (test code = 33.4 fL 38.5-51.6 L 21678-4) RDW-CV (test code = 10.8 % 12.1-15.4 L 788-0) PLT (test code = See_Comment H [Automated 777-3) message] The system which generated this result transmit alex reference range : 150 - 328 10*3/ ?L. The reference range was not u sed to interpret th is result as normal/abnormal . MPV (test code = 9.5 fL 9.8-13 L 72745-6) NRBC/100 WBC (test See_Comment [Automat ed code = 5678722915) message] The system which generated this result transmit alex reference range : 0.0 - 10.0 /100 WBCs. The reference range was not used to interpret this result as normal/abnormal . NRBC x10^3 (test code <0.01 See_Comment [Auto mated = 1268516230) message] The system which generated this result transmit alex reference range : 10*3/?L. The reference range was not used to interpret this result as normal/abnormal . GRAN MAT (NEUT) % 84.3 % (test code = 770-8) IMM GRAN % (test code 0.90 % = 6604212148) LYMPH % (test code = 7.5 % 736-9) MONO % (test code = 6.8 % 5905-5) EOS % (test code = 0.2 % 713-8) BASO % (test code = 0.3 % 706-2) GRAN MAT x10^3(ANC) 15.55 10*3/uL 1.99-6.95 H (test code = 5214843189) IMM GRAN x10^3 (test 0.16 10*3/uL 0-0.06 H code = 3472487888) LYMPH x10^3 (test code 1.39 10*3/uL 1.09-3.23 = 731-0) MONO x10^3 (test code 1.25 10*3/uL 0.36-1.02 H = 742-7) EOS x10^3 (test code = 0.03 10*3/uL 0.06-0.53 L 711-2) BASO x10^3 (test code 0.05 10*3/uL 0.01-0.09 = 704-7) Lab Interpretation Abnormal (test code = 05431-5) [facility] CenterCOVID-19 (ID NOW RAPID TESTING)2019-11-26 03:22:00 Test Item Value Reference Range Interpretation Comments SARS-CoV-2 Rapid ID NOW Not Detected Not Detected (test code = 57660-1) LUIS (test code = LUIS) ID NOW COVID-19 Assay is an isothermal nucleic acid amplification test intended for the qualitative detection of nucleic acid from SARS-CoV-2 viral RNA in nasopharyngeal ([employer]) specimens. It is used under Emergency Use Authorization (EUA) by FDA. The limit of detection (LOD) of the assay is 125 Genome Equivalents/mL. A positive result is indicative of the presence of SARS-CoV-2 RNA. ?Clinical correlation with patient history and other diagnostic information is necessary to determine patient infection status. A negative (Not Detected) result does not preclude SARS-CoV-2 infection. In patients with clinical symptoms and other tests that are consistent with SARS-CoV-2 infection, negative results should be treated as presumptive negative and a new specimen should be tested with alternative PCR molecular test. Invalid: Please collect a new specimen for repeat patient testing if clinically indicated. Lab Interpretation Normal (test code = 33819-4) [facility]. METABOLIC PANEL (86838)2019-11-26 02:58:00 Test Item Value Reference Range Interpretation Comments NA (test code = 128 mmol/L 135-145 L 3190969827) K (test code = 3.9 mmol/L 3.5-5 3976173800) CL (test code = 89 mmol/L 98-108 L 7198105705) CO2 TOTAL (test code = 28 mmol/L 23-31 6057056749) AGAP (test code = 2-16 9638779586) BUN (test code = 11 mg/dL 7-23 2658307509) GLUCOSE (test code = 300 mg/dL 70-110 H 9577647003) CREATININE (test code = 0.51 mg/dL 0.6-1.25 L 6121314335) TOTAL BILI (test code = 1.4 mg/dL 0.1-1.1 H 6308461751) CALCIUM (test code = 8.4 mg/dL 8.6-10.6 L 2151510379) T PROTEIN (test code = 7.0 g/dL 6.3-8.2 9843526969) ALBUMIN (test code = 3.5 g/dL 3.5-5 0089501769) ALK PHOS (test code = 119 U/L 34-122 3914913223) ALTv (test code = 40 U/L 5-50 1742-6) AST(SGOT) (test code = 56 U/L 13-40 H 5959291917) eGFR Calculation mL/min/1.73m2 (Non-) (test code = 0346785559) eGFR Calculation mL/min/1.73m2 () (test code = 2898188277) LUIS (test code = LUIS) Association of Glomerular Filtration Rate (GFR) and Staging of Kidney Disease* + --+ --+ ------+| GFR (mL/min/1.73 m2) ?| With Kidney Damage ?| ?Without Kidney Damage+ --------+ --------+ +| ?>90 ?| ?Stage one ?| ? Normal ?+ ---+ ---+ -------+| ?60-89 ?| ?Stage two ?| ? Decreased GFR ? + --+ --+ ------+| ?30-59 ?| ?Stage three ?| ? Stage three ? + --+ --+ ------+| ?15-29 ?| ?Stage four ? | ? Stage four ?+ ---+ ---+ -------+| ?<15 (or dialysis) ? ?| ?Stage five ? | ? Stage five ?+ ---+ ---+ -------+ *Each stage assumes the associated GFR level has been in effect for at least three months. ?Stages 1 to 5, with or without kidney disease, indicate chronic kidney disease. Notes: Determination of stages one and two (with eGFR >59mL/min/1.73 m2) requires estimation of kidney damage for at least three months as defined by structural or functional abnormalities of the kidney, manifested by either:Pathological abnormalities or Markers of kidney damage (including abnormalities in the composition of the blood or urine or abnormalities in imaging tests). Lab Interpretation Abnormal (test code = 37121-3) [facility] CenterLactic Acid Whole [id number] 02:20:00 Test Item Value Reference Range Interpretation Comments LACTIC ACID (test code = 2.59 mmol/L 7605826038) [facility]"
[2022-03-04] MEDS ORDERED: VANCOMYCIN 1 GM/VIAL ONE (10:58)
[2022-03-04] MEDS ORDERED: NA CHLORIDE 0.9% 250 ML ONE (10:58)
[2022-03-04] MEDS ORDERED: NA CHLORIDE 0.9% 100 ML IV ONE (10:58)
[2022-03-04] MEDS ORDERED: CEFTRIAXONE 1000 MG/VIAL ONE (10:58)
[2022-03-04] MEDS ORDERED: MORPHINE 4 MG/ML SYR ONE (11:17)
[2022-03-04] MEDS ORDERED: ONDANSETRON 4 MG/2 ML VIAL ONE (11:17)
[2022-03-04 11:20] LABS: Absolute Lymphocytes (CBC) 1.3 K/uL (0.7-4.9); Lymphocytes % 10.9 % (15.3-44.8); MCV 86.1 fL (80-100); MPV 6.8 fL (7.6-11.3); RBC Red Blood Cell Count 3.72 M/uL (4.33-5.43)
--- NOTE | 2022-03-04 11:30 | RAD REPORT ---
EXAM DESCRIPTION: RAD - Hand Left 3 View - 03/04/2022 11:02 am CLINICAL HISTORY: PAIN COMPARISON: No comparisons FINDINGS: Significant atherosclerotic vascular calcifications are present. Mild radiocarpal arthriti c changes are noted. No acute fracture or dislocation.
[2022-03-04 11:38] LABS: Albumin 2.8 g/dL (3.4-5.0); Bilirubin Total 0.3 mg/dL (0.2-1.0); Potassium 3.4 mmol/L (3.5-5.1); Protein, Total 7.9 g/dL (6.4-8.2)
--- NOTE | 2022-03-04 12:45 | EDPHYS ---
Physician Documentation [facility] [place], [place] Name: Jerson Lopes Age: 56 yrs Sex: Male : 1965 Arrival Date: 03/04/2022 Time: 09:31 Bed 8 Private MD: ED Physician Jonathan Christiansen HPI: 03/04 10:58 This 56 yrs old Male presents to ER via Ambulatory with complaints of Wound kdr Infection - antibiotics not working. 10:58 The patient injured his left middle finger approximately 2 months ago. Since then he kdr has had multiple emergency department visits and antibiotics in an attempt to heal the wound. He presents today with increasing pain swelling to the same finger. He is currently on antibiotics. He has a follow-up appointment scheduled at [facility] on of this week. He states that the pain was such that he could not wait that long. Patient presents with a very necrotic large wound encompassing the palmar aspect of the middle finger. It extends from chcf between the MCP and PIP to near the DIP. The tip of the finger was swollen and ecchymotic. The space between the MCP and PIP is swollen.. Onset: The symptoms/episode began/occurred gradually, 2 month(s) ago. Severity of symptoms: At their worst the symptoms were mild moderate just prior to arrival, in the emergency department the symptoms are unchanged. The patient has experienced similar episodes in the past, chronically. The patient has been recently seen by a physician: the patient's primary care provider. Historical: - Allergies: 09:56 No Known Allergies; db - PMHx: 09:56 Diabetes mellitus; db - Immunization history:: Adult Immunizations unknown, Client reports receiving the 2nd dose of the Covid vaccine. - Social history:: Smoking status: Patient denies any tobacco usage or history of. ROS: 10:58 Constitutional: Negative for fever, chills, and weight loss, Eyes: Negative for injury, kdr pain, redness, and discharge, Neck: Negative for injury, pain, and swelling, Cardiovascular: Negative for chest pain, palpitations, and edema, Respiratory: Negative for shortness of breath, cough, wheezing, and pleuritic chest pain, Abdomen/GI: Negative for abdominal pain, nausea, vomiting, diarrhea, and constipation, Back: Negative for injury and pain, : Negative for injury, bleeding, discharge, and swelling, MS/Extremity: Negative for injury and deformity, Neuro: Negative for headache, weakness, numbness, tingling, and seizure activity. Psych: Negative for depression, anxiety, suicide ideation, homicidal ideation, and hallucinations, Allergy/Immunology: Negative for hives, rash, and allergies, Endocrine: Negative for neck swelling, polydipsia, polyuria, polyphagia, and marked weight changes, Hematologic/Lymphatic: Negative for swollen nodes, abnormal bleeding, and unusual bruising. 10:58 Skin: Positive for avulsion, cellulitis, discoloration, ecchymosis, erythema, swelling, ulceration, of the palmar aspect of middle phalanx of left middle finger and palmar aspect of proximal phalanx of left middle finger. Exam: 11:05 Skin: cellulitis, that is severe, confluent, well demarcated, on the palmar aspect of kdr middle phalanx of left middle finger and palmar aspect of proximal phalanx of left middle finger, induration, that is moderate is noted, injury, laceration(s), Wound recheck: Cellulitis: 12:45 Constitutional: This is a well developed, well nourished patient who is awake, alert, kdr and in no acute distress. Head/Face: Normocephalic, atraumatic. Vital Signs: 09:45 BP 91 / 66; Pulse 108; Resp 18; Temp 98.7(O); Pulse Ox 100% on R/A; Weight 74.39 kg; db Height 5 ft. 7 in. (170.18 cm); Pain 10/10; 10:47 BP 140 / 72; Pulse 99; Pulse Ox 100% on R/A; ap3 11:24 BP 146 / 55; Pulse 97; Resp 17; Pulse Ox 100% ; bp 13:25 BP 146 / 81; Pulse 95; Resp 17; Pulse Ox 100% ; bp 15:03 BP 149 / 64; Pulse 97; Resp 16; Temp 98.9; Pulse Ox 100% ; bp 09:45 Body Mass Index 25.69 (74.39 kg, 170.18 cm) db MDM: 11:05 Data reviewed: vital signs, nurses notes, lab test result(s), radiologic studies. kdr Counseling: I had a detailed discussion with the patient and/or guardian regarding: the historical points, exam findings, and any diagnostic results supporting the discharge/admit diagnosis, lab results, radiology results, the need to transfer to another facility. 12:45 Patient medically screened. kdr 03/04 10:03 Order name: Glucose, Ancillary Testing; Complete Time: 10:27 EDMS 03/04 10:27 Order name: Hand Left 3 View XRAY; Complete Time: 11:45 kdr 12 10:46 Order name: CBC with Diff; Complete Time: 11:45 bp 12 10:46 Order name: Comprehensive Metabolic Panel; Complete Time: 11:45 bp 12 13:24 Order name: SARS RAPID bp Administered Medications: 11:00 Drug: Rocephin - (cefTRIAXone) 1 grams Route: IVPB; Infused Over: 30 mins; Site: right bp antecubital; 13:19 Follow up: IV Status: Completed infusion; IV Intake: 100ml bp 11:15 Drug: morphine 4 mg Route: IVP; Infused Over: 4 mins; Site: right antecubital; bp 13:20 Follow up: Response: No adverse reaction; Pain is decreased bp 11:15 Drug: Zofran (Ondansetron) 4 mg Route: IVP; Site: right antecubital; bp 13:20 Follow up: Response: No adverse reaction bp 11:26 Drug: vancoMYCIN 1 grams Route: IVPB; Infused Over: 2 hrs; Site: right antecubital; bp 13:19 Follow up: IV Status: Completed infusion; IV Intake: 250ml bp Disposition Summary: 03/04/22 12:45 Transfer Ordered Transfer Location: [facility] kdr Reason: Higher level of care kdr Condition: Fair kdr Problem: an ongoing problem kdr Symptoms: are unchanged kdr Accepting Physician: Dr. Hammer(03/04/22 15:13) bp Diagnosis - Cellulitis of left finger kdr - Flexor tenosynovitis kdr Forms: - Medication Reconciliation Form kdr - SBAR form kdr Signatures: Dispatcher [employer] EDDE Jonathan Christiansen MD MD kdr Peltier, Brian, RN RN bp Carole Hamm RN RN db Corrections: (The following items were deleted from the chart) 14:21 12:45 Dr. Reid kdr kdr 15:13 14:21 Dr. Hammer kdr bp
--- NOTE | 2022-03-04 12:45 | ER ---
Nurse's Notes [facility] Name: Jerson Lopes Age: 56 yrs Sex: Male : 1965 Arrival Date: 03/04/2022 Time: 09:31 Bed 8 Private MD: Diagnosis: Cellulitis of left finger;Flexor tenosynovitis Presentation: 03/04 09:45 Chief complaint: Patient states: left 3rd finger infection. Injury to finger 2 months db ago metal fell on top of it. Took antibiotics 2 weeks ago. Finger is getting worse. Discolored and black. Glucose 159 in triage. States has not been taking insulin as prescribed due to gives headache. Coronavirus screen: Vaccine status: Patient reports receiving the 2nd dose of the covid vaccine. Client denies travel out of the [place] in the last 14 days. At this time, the client does not indicate any symptoms associated with coronavirus-19. Ebola Screen: Patient negative for fever greater than or equal to 101.5 degrees Fahrenheit, and additional compatible Ebola Virus Disease symptoms Patient denies exposure to infectious person. Patient denies travel to an Ebola-affected area in the 21 days before illness onset. No symptoms or risks identified at this time. Initial Sepsis Screen: Does the patient meet any 2 criteria? HR > 90 bpm. No. Patient's initial sepsis screen is negative. Does the patient have a suspected source of infection? Yes: Skin breakdown/wound. Risk Assessment: Do you want to hurt yourself or someone else? Patient reports no desire to harm self or others. Onset of symptoms was March 04, 2022. 09:45 Method Of Arrival: Ambulatory db 09:45 Acuity: DALILA 3 db Triage Assessment: 09:56 General: Appears in no apparent distress. uncomfortable, Behavior is calm, cooperative, db appropriate for age, quiet. Pain: Complains of pain in left hand. Historical: - Allergies: 09:56 No Known Allergies; db - PMHx: 09:56 Diabetes mellitus; db - Immunization history:: Adult Immunizations unknown, Client reports receiving the 2nd dose of the Covid vaccine. - Social history:: Smoking status: Patient denies any tobacco usage or history of. Screenin:00 Abuse screen: Denies threats or abuse. Denies injuries from another. Nutritional bp screening: No deficits noted. Tuberculosis screening: No symptoms or risk factors identified. Fall Risk None identified. Assessment: 10:00 General: SEE TRIAGE NOTE. bp 11:24 Reassessment: No changes from previously documented assessment. Patient and/or family bp updated on plan of care and expected duration. Pain level reassessed. 13:25 Reassessment: REPORT TO MARK [facility] FOR [facility]. TRANSPORT PENDING. bp 15:03 Reassessment: [facility]/S FOR TRANSPORT. bp Vital Signs: 09:45 BP 91 / 66; Pulse 108; Resp 18; Temp 98.7(O); Pulse Ox 100% on R/A; Weight 74.39 kg; db Height 5 ft. 7 in. (170.18 cm); Pain 10/10; 10:47 BP 140 / 72; Pulse 99; Pulse Ox 100% on R/A; ap3 11:24 BP 146 / 55; Pulse 97; Resp 17; Pulse Ox 100% ; bp 13:25 BP 146 / 81; Pulse 95; Resp 17; Pulse Ox 100% ; bp 15:03 BP 149 / 64; Pulse 97; Resp 16; Temp 98.9; Pulse Ox 100% ; bp 09:45 Body Mass Index 25.69 (74.39 kg, 170.18 cm) db ED Course: 09:31 Patient arrived in ED. as 09:36 Jonathan Christiansen MD is Attending Physician. kdr 09:42 Bimal Curtis, [place] is Primary Nurse. bp 09:56 Triage completed. db 09:56 Arm band placed on right wrist. db 10:00 Patient has correct armband on for positive identification. Bed in low position. Call bp light in reach. Side rails up X2. 11:00 Inserted saline lock: 20 gauge in right antecubital area, using aseptic technique. bp Blood collected. 11:04 Hand Left 3 View XRAY In Process Unspecified. EDMS 11:53 initiated transfer to [facility]. bd 13:25 No provider procedures requiring assistance completed. Patient transferred, IV remains bp in place. Administered Medications: 11:00 Drug: Rocephin - (cefTRIAXone) 1 grams Route: IVPB; Infused Over: 30 mins; Site: right bp antecubital; 13:19 Follow up: IV Status: Completed infusion; IV Intake: 100ml bp 11:15 Drug: morphine 4 mg Route: IVP; Infused Over: 4 mins; Site: right antecubital; bp 13:20 Follow up: Response: No adverse reaction; Pain is decreased bp 11:15 Drug: Zofran (Ondansetron) 4 mg Route: IVP; Site: right antecubital; bp 13:20 Follow up: Response: No adverse reaction bp 11:26 Drug: vancoMYCIN 1 grams Route: IVPB; Infused Over: 2 hrs; Site: right antecubital; bp 13:19 Follow up: IV Status: Completed infusion; IV Intake: 250ml bp Medication: 13:26 VIS not applicable for this client. bp Intake: 13:19 IV: 250ml; Total: 250ml. bp 13:19 IV: 100ml; Total: 350ml. bp Outcome: 12:45 ER care complete, transfer ordered by . kdr 13:25 Transferred by ground EMS to [facility]. bp 13:25 Condition: stable 13:25 Instructed on 15:13 Patient left the ED. bp Signatures: Dispatcher [employer] EDMS Avelina Porras Kevin, MD MD kdr Martinez, Amelia as Peltier, Brian, RN RN bp Dione Werner, RN RN ap3 Carole Hamm, RN RN db Corrections: (The following items were deleted from the chart) 09:57 09:45 Chief complaint: Patient states: left 3rd finger infection. Injury to finger 2 db months ago metal fell on top of it. Took antibiotics 2 weeks ago. Finger is getting worse. Discolored and black. Glucose 159 in triage db 09:59 09:45 Initial Sepsis Screen: Does the patient meet any 2 criteria? HR > 90 bpm. Yes db Does the patient have a suspected source of infection? Yes: Skin breakdown/wound db
[2022-03-04 13:46] LABS: SARS-CoV-2 Antigen Rapid Res Negative (Negative)
[2022-03-04 17:26] VITALS: O2SAT 100
[2022-03-04 17:44] VITALS: BP 149/64; TEMP 98.9
== END 2022-03-04 15:13 | disposition short-term general hospital (02) ==
LOC: ER 09:28
DX: L03.012 Cellulitis of left finger (principal); M65.80 Other synovitis and tenosynovitis, unspecified site
CPT/HCPCS: 36415; 80053; 82947; 85025; 87811; 96365; 96375; 99285; J2405; J3370; J7050

== ENCOUNTER 2022-03-20 22:09 | Emergency (ER) | payer SELFPAY ==
--- OUTSIDE RECORDS SUMMARY | 2022-03-20 22:28 | XMS REPORT | Continuity of Care Document ---
:1965 Author Organization [facility] t Address [address] [place] [address] Care Team Providers Name Role Phone Lida Suarez Primary Care Physician [phone] Tatiana Rincon LVN Attending Clinician DHEERAJ PANDA Attending Clinician Unavailable Bunny De Paz MD Attending Clinician Dheeraj Panda MD Attending Clinician Franklyn Sesay MD Attending Clinician Fede Gordon MD Attending Clinician Magaly Foote MD Attending Clinician Behzad Williamson MD Attending Clinician Sriram Cobian MD Attending Clinician Bryan Padron MD Attending Clinician MAGALY FOOTE Attending Clinician Unavailable [facility], Care Transition Attending Clinician Unavailable Addie DEWITT, [facility] Dianna Attending Clinician ELVIA MCKEON Attending Clinician Unavailable Elvia Mckeon MD Attending Clinician MIKY FAJARDO Attending Clinician Unavailable Miky Fajardo MD Attending Clinician LOUIE NARANJO Attending Clinician Unavailable Louie Curiel Attending Clinician HernandezAlexandra herny Attending Clinician Yadira Nick MD Attending Clinician YADIRA NICK Attending Clinician Unavailable EDA AUGUSTINE Attending Clinician Unavailable Haily DEWITT, Francisco Attending Clinician Robyn Canas RN Attending Clinician Kam [facility] Attending Clinician Doctor Unassigned, [place] Attending Clinician Unavailable Abebe DEWITT, Sai Daugherty Attending Clinician BUNNY DE PAZ Admitting Clinician Unavailable Bunny De Paz MD Admitting Clinician ELVIA MCKEON Admitting Clinician Unavailable LOUIE NARANJO Admitting Clinician Unavailable Sai Lomas MD Admitting Clinician Payers Payer Name Policy Type Policy Number Effective Date Expiration Date S ource Problems Condition Condition Condition Status Onset Resolution Last Treating Co mments Source Name Details Category Date Date Treatment Clinician Date Obesity Obesity Disease Active 2021-03 Univers (BMI (BMI 2-06 ity of 30-39.9) 30-39.9) 00:00: [address] Branch Gangrene Gangrene Disease Active 2021-03 Unive rs of finger of finger 2-06 ity of of left of left 00:00: [place] hand hand 00 [facility] S/P S/P Disease Active 2020-0 Univers amputation amputation 9-22 it y of of foot, of foot, 00:00: [facility] 00 [facility] Branch S/P S/P Disease Active 2020-0 Univers amputation amputation 9-22 it y of of foot, of foot, 00:00: [facility] 00 Medical Branch 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 9-22 it y of emia emia 00:00: [address] [facility] Disease Active 2020-0 Unive rs discharge discharge 9-22 ity of follow-up follow-up 00:[facility] Need for Need for Disease Active 2020- Unive rs influenza influenza 9- ity of vaccinatio vaccinatio [place] 00 Medical [place] Need for Need for Disease Active 2020- Unive rs Tdap Tdap 9- ity of vaccinatio vaccinatio [place] Medical Branch Diabetes Diabetes Disease Active 2020-0 Unive rs mellitus mellitus 8- ity of type 2, type 2, 00:00: [place] insulin insulin 00 Medical dependent dependent Bran ch Gangrene Gangrene Disease Active 2020- Unive rs of toe of of toe of 8 ity of left foot [place] Bandemia Bandemia Disease Active 2020- Unive rs 8 ity of 00:00: [place] [id number] Medical Branch Lactic Lactic Disease Active 2020-0 Univers acidosis acidosis 11-25 ity of 00:00: [place] [address] Medical Branch Essential Essential Disease Active 2020- Uni vers hypertensi hypertensi 11-25 it y of on on 00:00: [place] [address] Medical Branch Leukocytos Leukocytos Disease Active 2020-0 U nivers is is 11-25 ity of 00:00: [place] 00 Medical Branch Hyponatrem Hyponatrem Disease Active 2020-0 U nivers ia ia 11-25 ity of 00:00: [place] 00 Medical Branch Gangrene Gangrene Disease Active 2020-0 Unive rs associated associated 11-25 it y of with type with type 00:00[place] 2 diabetes 2 diabetes 00 Me dical mellitus mellitus Branch Type 2 Type 2 Disease Active 2020-0 Univers diabetes diabetes 11-25 ity of mellitus, mellitus, 00:00[place] without without 00 Medical long-term long-term Bran ch current current use of use of insulin insulin Gas Gas Disease Active 2020 Overview: Univer s gangrene gangrene 11-24 Formattin ity of of foot of foot 00:00: g of this [place] 00 note Medical might be Branch different from the original. Added automatic ally from request for surgery [id number] Cellulitis Cellulitis Disease Active 2019-0 U nivers of finger of finger 4-02 ity of of right of right 00:00: [place] hand hand 00 Medical Branch Allergies, Adverse Reactions, Alerts Allergy Allergy Status Severity Reaction(s) Onset Inactive Treating Comm ents Source Name Type Date Date Clinician NO KNOWN Drug Active Univers ALLERGIE Class ity of [facility] [place] [facility] Family History Family Member Diagnosis Comments Start Date Stop Date Source Natural brother Diabetes Universit y of [facility] Natural mother Diabetes [facility] Natural sister Diabetes [facility] Social History Social Habit Start Date Stop Date Quantity Comments Source Alcohol intake 2022-03-10 2022-03-10 .29 /d [facility] 00:00:00 00:00:00 [place] [facility] History SDOH 2022-03-05 2022-03-05 4 University o f Financial 00:00:00 00:00:00 [place] [facility] History SDRI Food 2022-03-05 2022-03-05 2 Univers ity of Worry 00:00:00 00:00:00 [facility] Branch History SDRI Food 2022-03-05 2022-03-05 1 Univers ity of Scarcity 00:00:00 00:00:00 [place] [facility] History [facility] 2022-03-05 2022-03-05 2 University o f Transport Med 00:00:00 00:00:00 [place] Medic al Branch History [facility] 2022-03-05 2022-03-05 2 [place] o f Transport Non-Med 00:00:00 00:00:00 [facility] edical [place] Exposure to 2022-02-22 2022-03-04 Not sure [facility] SARS-CoV-2 00:00:00 16:57:00 [facility] (event) [place] Tobacco use and 2022-02-12 2022-02-12 Smokeless tobacco Un iversity of exposure 00:00:00 00:00:00 non-user [facility] Sex Ass[birth year] At [birth year] Universit y of 00:00:00 00:00:00 [facility] Smoking Status Start Date Stop Date Source Never smoked tobacco [facility] Medications Ordered Filled Start Stop Current Ordering Indication Dosage Frequency Signature Comments Components Source Medication Medication Date Date Medication? Clinician (SIG) Name Name lisinopriL 2021-03- Yes [id number] 40mg Take 1 Univers 40 mg 2-16 -17 tablet by ity of tablet 00:00: 04:59 mouth [place] 00 :00 daily for Medical 90 days. Branch lisinopriL 2021-03- Yes [id number] 40mg Take 1 Univers 40 mg 2-16 03-17 tablet by ity of tablet 00:00: 04:59 mouth [place] 00 :00 daily for Medical 90 days. Branch lisinopriL 2021-03- Yes [id number] 40mg Take 1 Univers 40 mg 2-16 03-17 tablet by ity of tablet 00:00: 04:59 mouth [place] 00 :00 daily for Medical 90 days. Branch lactated 2021-03 Yes 1000mL at 100 Unive rs ringers IV 2-15 mL/hr, ity of infusion 18:15: 1,000 mL, [place] 1,000 mL 00 IV Medical Infusion, Branch CONTINUOUS , Starting on [place] 03/13/22 at 1215, Until Discontinu ed, Routine, PACU lactated 2021-03- No 1000mL at 100 Univ ers ringers IV 2-15 12-16 mL/hr, ity of infusion 18:15: 02:06 1,000 mL, [place] 1,000 mL 00 :31 IV Medical Infusion, Branch CONTINUOUS , Starting on [place]bi 03/13/22 at 1215, Until [place] 12 at 2006, Routine, PACU FENTanyl PF 2021-03- No Slow IV Un davy (SUBLIMAZE 2-15 12-15 Push, ONCE it y of (PF)) 16:13: 19:06 INTRA [place] injection 00 :38 PROCEDURE, Medi shade Starting Branch on [place] 03/13/22 at 1013, Until [place] 03/13/22 at 1306, Routine, Intra-op propofoL IV 2021-03- No Slow IV Un davy infusion 2-15 12-15 Push, ONCE ity of 16:11: 19:06 INTRA [place] 00 :38 PROCEDURE, Medical Starting Branch on [place] 03/13/22 at 1011, Until [place] 1215 at 1306, Routine, Intra-op lidocaine 2021-03- No Slow IV Univ ers 1% 2-15 12-15 Push, ONCE ity of (XYLOCAINE) 16:11: 19:06 INTRA [place] 100 mg/10 00 :38 PROCEDURE, Medi shade mL (1 %) Starting Branch injection on [place] 03/13/22 at 1011, Until [place] 12 at 1306, Routine, Intra-op midazolam 2021-03- No IV Push, Uni vers (VERSED) 2-15 12-17 ONCE INTRA ity of injection 16:08: 00:04 PROCEDURE, [place] 00 :29 Starting Medical on [place] Branch 03/13/22 at 1008, Until 03/14/22 at 1804, Routine, Intra-op lactated 2021-03- No IV Univers ringers IV -13 03-15 Infusion, ity of infusion 16:05: 19:06 CONTINUOUS [place] 00 :38 PRN, Medical Starting Branch on [place] 03/13/22 at 1005, Until [place] 03/13/22 at 1306, Routine, Intra-op dexamethaso 2021-03- No Infiltrati Univers ne -13 03-15 on, ONCE ity of (DECADRON 15:36: 19:06 INTRA [place] PHOSPHATE) 00 :38 PROCEDURE, Med ical injection Starting Branch on [place]bi 03/13/22 at 0936, Until Discontinu ed, Routine, Intra-op bupivacaine 2021-03- No Infiltrati Univers (preserv 05-1415 on, ONCE ity of free) 15:36: 19:06 INTRA [place] (SENSORCAIN 00 :38 PROCEDURE, Me dical E MPF) 0.25 Starting Bran ch % (2.5 on [place] mg/mL) 03/13/22 injection at 0936, Until Discontinu ed, Routine, Intra-op carvediloL 2021-03- Yes [id number] 25mg Take 1 Univers 25 mg 2-15 03-16 tablet by ity of tablet 00:00: 04:59 mouth 2 [place] 00 :00 (two) Medical times Branch daily with meals for 90 days. carvediloL 2021-03- Yes [id number] 25mg Take 1 Univers 25 mg 2-15 03-16 tablet by ity of tablet 00:00: 04:59 mouth 2 [place] 00 :00 (two) Medical times Branch daily with meals for 90 days. carvediloL 2021-03- Yes [id number] 25mg Take 1 Univers 25 mg 2-15 03-16 tablet by ity of tablet 00:00: 04:59 mouth 2 [place] 00 :00 (two) Medical times Branch daily with meals for 90 days. cephALEXin 2021-03- Yes [id number] 500mg Take 1 Univers 500 mg 05-14 [id number] capsule by ity of capsule 00:00: 05:59 mouth 4 [place] 00 :00 (four) Medical times Branch daily for 7 days. cephALEXin 2021-03- Yes [id number] 500mg Take 1 Univers 500 mg 05-14 [id number] capsule by ity of capsule 00:00: 05:59 mouth 4 [place] 00 :00 (four) Medical times Branch daily for 7 days. cephALEXin 2021-03- Yes [id number] 500mg Take 1 Univers 500 mg 05-14 [id number] capsule by ity of capsule 00:00: 05:59 mouth 4 [place] 00 :00 (four) Medical times Branch daily for 7 days. carvediloL 2021-03 Yes 25mg 25 mg, Unive rs (COREG) 2-14 Oral, BID ity of tablet 25 14:00: MEALS, [place] mg 00 First dose Medical (after Branch last modificati on) on Thu03/12/22 at 0800, Until Discontinu ed, Routine carvediloL 2021-03- No 25mg 25 mg, Univ ers (COREG) 2-14 12-16 Oral, BID ity of tablet 25 14:00: 02:06 MEALS, [place] mg 00 :31 First dose Medical (after Branch last modificati on) on Thu03/12/22 at 0800, Until Discontinu ed, Routine lisinopriL 2021-03 Yes 40mg 40 mg, Unive rs (PRINIVIL,Z 2-13 Oral, ity of ESTRIL) 15:00: DAILY, [place] tablet 40 00 First dose Medi shade mg (after Branch last modificati on) on Thu03/11/22 at 0900, Until Discontinu ed, Routine lisinopriL 2021-03- No 40mg 40 mg, Univ ers (PRINIVIL,Z 2-13 12-16 Oral, ity of ESTRIL) 15:00: 02:06 DAILY, [place] tablet 40 00 :31 First dose Medi shade mg (after Branch last modificati on) on Thu03/11/22 at 0900, Until Discontinu ed, Routine magnesium 2021-03- No 30mL 30 mL, Unive rs hydroxide 2-11 12-11 Oral, ity of (MILK OF 15:30: 16:55 ONCE, 1 [place] MAGNESIA) 00 :00 dose, On Medica l 400 mg/5 mL Sun Branch suspension 03/09/22 30 mL at 0930, Routine sennosides- 2021-03 Yes 1{tbl} 1 tablet, Univers docusate 2-11 Oral, BID, ity o f sodium 02:00: First dose [place] (SENOKOT-S) 00 (after Medica l 8.6-50 mg last Branch per tablet modificati 1 tablet on) on 03/08/22 at 1999, Until Discontinu ed, Routine sennosides- 2021-03 Yes 1{tbl} 1 tablet, Univers docusate 2-11 Oral, BID, ity o f sodium 02:00: First dose [place] (SENOKOT-S) 00 (after Medica l 8.6-50 mg last Branch per tablet modificati 1 tablet on) on 03/08/22 at 2000, Until Discontinu ed, Routine sennosides- 2021-03- No 1{tbl} 1 tablet, Univers docusate 2-11 12-16 Oral, BID, ity of sodium 02:00: 02:06 First dose [place] (SENOKOT-S) 00 :31 (after Medica l 8.6-50 mg last Branch per tablet modificati 1 tablet on) on 03/08/22 at 2000, Until Discontinu ed, Routine lisinopriL 2021-03 Yes 20mg 20 mg, Unive rs (PRINIVIL,Z 2-09 Oral, ity of ESTRIL) 15:00: DAILY, [place] tablet 20 00 First dose Medi shade mg on Thu Branch 03/07/22 at 0900, Until Discontinu ed, Routine lisinopriL 2021-03- No 20mg 20 mg, Univ ers (PRINIVIL,Z 2-09 12-13 Oral, ity of ESTRIL) 15:00: 13:15 DAILY, [place] tablet 20 00 :27 First dose Medi shade mg on Fri Branch 03/07/22 at 0900, Until Discontinu ed, Routine lidocaine 2021-03- No PRN, Univers 1% (PF) 2 12-09 Starting ity of (XYLOCAINE) 14:22: 16:33 on Fri [place] injection 00 :52 03/07/22 at [facility] 0822, Branch Until 03/07/22 at 1033, Routine, Intra-op heparin 2021-03- No PRN, Univers 10,000 05-08 Starting ity of units in NS 14:12: 16:33 on Fri [place] 1000 mL for 00 :52 22 at [facility] 0812, Branch Intra-op iopamidol 2021-03- No PRN, Univers (ISOVUE 05-08 Starting ity of 370-500 mL) 14:12: 16:33 on Fri [place] injection 00 :52 03/07/22 at [facility] 0812, Branch Until Thu03/07/22 at 1033, Routine, Intra-op ceFAZolin 2021-03- Yes 1000mg 1,000 mg, Univers (ANCEF) 05-07 Intravenou ity o f 1,000 mg in 20:00: 19:59 s, Q8H [place] water for 00 :00 ABX, 15 Medical injection, doses, Branch sterile 10 First dose mL SIVP on [place] syringe 03/06/22 at 1400, Last dose on 03/11/22 at 0600, 10 mL
Reas on for Anti-Infec tive: Empiric Therapy for Suspected Infection< br>Empi awilda Therapy Site: Skin / Soft tissue
Duration of therapy: 5 days ceFAZolin 2021-03 No 1000mg 1,000 mg, Univers (ANCEF) 05-07 Intravenou ity o f 1,000 mg in 20:00: 13:16 s, Q8H [place] water for 00 :00 ABX, 15 Medical injection, doses, Branch sterile 10 First dose mL SIVP on [place] syringe 03/06/22 at 1400, Last dose on 03/11/22 at 0600, 10 mL
Reas on for Anti-Infec tive: Empiric Therapy for Suspected Infection< br>Empi awilda Therapy Site: Skin / Soft tissue
Duration of therapy: 5 days cefTRIAXone 2021-03 No 1000mg 1,000 mg, Univers (ROCEPHIN) 05-06 Intravenou it y of 1,000 mg in 20:15: 13:10 s, Q24H [place] NaCl 0.9% 00 :03 ABX, 7 Medical (NS) 50 mL doses, Branch MINI-BAG First dose on Thu03/05/22 at 1415, Last dose on Thu03/11/22 at 1415, Administer over 30 Minutes, 50 mL
Reas on for Anti-Infec tive: Documented Infection< br>Documen alex Infection Site: Skin / Soft Tissue
Duration of Therapy: 7 days aspirin 2021-03 Yes 81mg 81 mg, Univers chewable 2 Oral, ity of tablet 81 15:00: DAILY, [place] mg 00 First dose Medical on Thu [place] 03/05/22 at 0900, Until Discontinu ed, Routine aspirin 2021-03 Yes 81mg 81 mg, Univers chewable 2 Oral, ity of tablet 81 15:00: DAILY, [place] mg 00 First dose Medical on Thu [place] 03/05/22 at 0900, Until Discontinu ed, Routine aspirin 2021-03 No 81mg 81 mg, Univers chewable 05-06-16 Oral, ity of tablet 81 15:00: 02:06 DAILY, [place] mg 00 :31 First dose Medical on Thu [place] 03/05/22 at 0900, Until Discontinu ed, Routine lisinopriL 2021-03 No 20mg 20 mg, Univ ers (PRINIVIL,Z 05-06- Oral, ity of ESTRIL) 15:00: 18:16 DAILY, [place] tablet 20 00 :42 First dose Medi sahde mg on Thu [place] 03/05/22 at 0900, Until Discontinu ed, Routine carvediloL 2021-03 Yes 12.5mg 12.5 mg, U nivers (COREG) 2- Oral, BID ity of tablet 12.5 14:00: MEALS, [place] mg 00 First dose Medical on Thu [place] 03/05/22 at 0800, Until Discontinu ed, Routine carvediloL 2021-03 No 12.5mg 12.5 mg, Univers (COREG) 2 12-14 Oral, BID ity of tablet 12.5 14:00: 13:39 MEALS, [place] mg 00 :59 First dose Medical on Thu Branch 03/05/22 at 0800, Until Discontinu ed, Routine HYDROcodone 2021-03 Yes 1{tbl} 1 tablet, Univers -acetaminop 2-07 Oral, ity of hen (NORCO 05:26: Q6HPRN, [place] 5) 5-325 mg 41 Starting Medi shade tablet 1 on [facility] tablet 03/04/22 at 2326, Until Discontinu ed, Routine, Pain (scale 7-10) HYDROcodone 2021-03- No 1{tbl} 1 tablet, Univers -acetaminop 2-07 12-14 Oral, ity of hen (NORCO 05:26: 13:41 Q6HPRN, [place] 5) 5-325 mg 41 :39 Starting Medi shade tablet 1 on [facility] tablet 03/04/22 at 2326, Until 03/12/22 at 0741, Routine, Pain (scale 7-10) Sliding 2021-03 Yes Subcutaneo Univ ers Scale 2-07 us, AC+HS, ity of Insulin-Reg 03:00: First dose [place] ular + Fsbg 00 on [facility] l Testing 03/04/22 at [place] 2100, Until Discontinu ed, Routine atorvastati 2021-03 Yes 20mg 20 mg, Univ ers n (LIPITOR) 2-07 Oral, QHS, it y of tablet 20 03:00: First dose [place] mg 00 on [facility] 03/04/22 at Branch 2100, Until Discontinu ed, Routine Sliding 2021-03 Yes Subcutaneo Univ ers Scale 2-07 us, AC+HS, ity of Insulin-Reg 03:00: First dose [place] ular + Fsbg 00 on [facility] l Testing 03/04/22 at [place] 2100, Until Discontinu ed, Routine atorvastati 2021-03 Yes 20mg 20 mg, Univ ers n (LIPITOR) 2-07 Oral, QHS, it y of tablet 20 03:00: First dose [place] mg 00 on [facility] 03/04/22 at Branch 2100, Until Discontinu ed, Routine Sliding 2021-03- No Subcutaneo Uni vers Scale 2-07 12-16 us, AC+HS, ity of Insulin-Reg 03:00: 02:06 First dose [place] ular + Fsbg 00 :[facility] 03/04[facility]22 at [place] 2100, Until Discontinu ed, Routine atorvastati 2021-03 No 20mg 20 mg, Uni vers n (LIPITOR) 2- 12-16 Oral, QHS, i ty of tablet 20 03:00: 02:06 First dose [place] mg 00 :31 on [facility] 03/04/22 at [place] 2100, Until Discontinu ed, Routine polyethylen 2021-03 Yes 17g 17 g, Unive rs e glycol 2-07 Oral, BID, ity o f 3350 powder 02:00: First dose [place] 17 g 00 on [facility] 03/04/22 at [place] 1999, Until Discontinu ed, Routine heparin 2021-03 Yes 5000U 5,000 Univers (porcine) 2-07 Units, ity of injection 02:00: Subcutaneo [place] 5,000 Units 00 us, Q12H, Med ical First dose Branch on [facility] 03/04/22 at 1999, Until Discontinu ed, Routine insulin 2021-03 Yes 7U 7 Units, Univer s glargine 2-07 Subcutaneo ity o f (LANTUS 02:00: us, BID, [place] U-100) 00 First dose Medical injection 7 on [facility] 03/04/22 at 1999, Until Discontinu ed, Routine polyethylen 2021-03 Yes 17g 17 g, Unive rs e glycol 2-07 Oral, BID, ity o f 3350 powder 02:00: First dose [place] 17 g 00 on [facility] 03/04/22 at [place] 1999, Until Discontinu ed, Routine heparin 2021-03 Yes 5000U 5,000 Univers (porcine) 2-07 Units, ity of injection 02:00: Subcutaneo [place] 5,000 Units 00 us, Q12H, Med ical First dose Branch on [facility] 03/04/22 at 1999, Until Discontinu ed, Routine insulin 2021-03 Yes 7U 7 Units, Univer s glargine 2-07 Subcutaneo ity o f (LANTUS 02:00: us, BID, [place] U-100) 00 First dose Medical injection 7 on [facility] 03/04/22 at 1999, Until Discontinu ed, Routine polyethylen 2021-03 17g 17 g, [facility] ers e glycol 05-06 Oral, BID, ity of 3350 powder 02:00: 02:06 First dose [place] 17 g 00 :31 on [facility] Medical 03/04/22 at Branch 2000, Until Discontinu ed, Routine heparin 2021-03 No 5000U 5,000 Univers (porcine) 05-06 Units, ity of injection 02:00: 02:06 Subcutaneo [place] 5,000 Units 00 :31 us, Q12H, Med ical First dose Branch on 03/04/22 at 2000, Until Discontinu ed, Routine insulin 2021-03 No 7U 7 Units, [facility] rs glargine 05-06 Subcutaneo ity of (LANTUS 02:00: 02:06 us, BID, [place] U-100) 00 :31 First dose Medical injection 7 on [facility] Units 03/04/22 at 2000, Until Discontinu ed, Routine sennosides- 2021-03 No 1{tbl} 1 tablet, Univers docusate 05-0610 Oral, ity of sodium 00:15: 14:08 DAILY, [place] (SENOKOT-S) 00 :04 First dose Me dical 8.6-50 mg on [facility] per tablet 03/04/22 at 1 tablet 1815, Until Discontinu ed, Routine acetaminoph 2021-03 Yes 650mg 650 mg, Un davy en 2 Oral, ity of (TYLENOL) 23:57: Q6HPRN, [place] tablet 650 06 Starting Medic al mg on [facility] 03/04/22 at 1757, Until Discontinu ed, Routine, Pain (scale 1-3) acetaminoph 2021-03 Yes 650mg 650 mg, Un davy en 2- Oral, ity of (TYLENOL) 23:57: Q6HPRN, [place] tablet 650 06 Starting Medic al mg on [facility] 03/04/22 at 1757, Until Discontinu ed, Routine, Pain (scale 1-3) acetaminoph 2021-03 No 650mg 650 mg, U nivers en 2-03-14 Oral, ity of (TYLENOL) 23:57: 02:06 Q6HPRN, [place] tablet 650 06 :31 Starting Medic al mg on Branch 03/04/22 at 1757, Until [facility] 03/13/22 at 2006, Routine, Pain (scale 1-3) dextrose 2021-03 Yes 250mL 250 mL, IV Un davy 10% (D10W) 2-06 Infusion, ity of bolus 23:54: PRN - SEE [place] infusion 50 INSTRUCTIO Medic al 250 mL NS, Branch Administer over 60 Minutes, Other, If blood glucose is < or = 70 mg/dL and patient is unable to swallow or has mental status changes, Starting on Thu03/04/22 at 1754
If blood glucose is < or = 70 mg/dL and patient is unable to swallow or has mental status changes (Give glucagon order if patient needs fluid restrictio n): IF IV access available: Dextrose 10%. 1. 125 mL (? bag) of D10W IV infusion - equivalent to 12.5 g dextrose 2. Blood glucose - draw blood glucose 15 minutes after D10W Administra tion. 3. If blood glucose is < 80 mg/dL, repeat.
dextrose 2021-03 Yes 250mL 250 mL, IV Un davy 10% (D10W) 2-06 Infusion, ity of bolus 23:54: PRN - SEE [place] infusion 50 INSTRUCTIO Medic al 250 mL NS, Branch Administer over 60 Minutes, Other, If blood glucose is < or = 70 mg/dL and patient is unable to swallow or has mental status changes, Starting on Thu03/04/22 at 1754
If blood glucose is < or = 70 mg/dL and patient is unable to swallow or has mental status changes (Give glucagon order if patient needs fluid restrictio n): IF IV access available: Dextrose 10%. 1. 125 mL (? bag) of D10W IV infusion - equivalent to 12.5 g dextrose 2. Blood glucose - draw blood glucose 15 minutes after D10W Administra tion. 3. If blood glucose is < 80 mg/dL, repeat.
dextrose 2021-03- No 250mL 250 mL, IV U nivers 10% (D10W) 05-0516 Infusion, ity of bolus 23:54: 02:06 PRN - SEE [place] infusion 50 :31 INSTRUCTIO Medic al 250 mL NS, Branch Administer over 60 Minutes, Other, If blood glucose is < or = 70 mg/dL and patient is unable to swallow or has mental status changes, Starting on Thu03/04/22 at 1754
If blood glucose is < or = 70 mg/dL and patient is unable to swallow or has mental status changes (Give glucagon order if patient needs fluid restrictio n): IF IV access available: Dextrose 10%. 1. 125 mL (? bag) of D10W IV infusion - equivalent to 12.5 g dextrose 2. Blood glucose - draw blood glucose 15 minutes after D10W Administra tion. 3. If blood glucose is < 80 mg/dL, repeat.
glucagon 2021-03 Yes 1mg 1 mg, Univers (GLUCAGEN 05-05 Intramuscu ity of DIAGNOSTIC 23:54: lar, PRN, [place] KIT) 48 Starting Medical injection 1 on [facility] 03/04/22 at 1754, Until Discontinu ed, CHARMAINE, Blood Glucose < or = 70 mg/dL and patient is unable to swallow or has mental changes. glucagon 2021-03 Yes 1mg 1 mg, Univers (GLUCAGEN 05-05 Intramuscu ity of DIAGNOSTIC 23:54: [place], PRN, [place] KIT) 48 Starting Medical injection 1 on [facility] Branch mg 03/04/22 at 1754, Until Discontinu ed, CHARMAINE, Blood Glucose < or = 70 mg/dL and patient is unable to swallow or has mental changes. glucagon 2021-03- No 1mg 1 mg, Univers (GLUCAGEN 05-05 Intramuscu ity of DIAGNOSTIC 23:54: 02:06 lar, PRN, [place] KIT) 48 :31 Starting Medical injection 1 on [facility] mg 03/04/22 at 1754, Until [place] 03/13/22 at 2006, CHARMAINE, Blood Glucose < or = 70 mg/dL and patient is unable to swallow or has mental changes. cephALEXin 2021-03- Yes [id number] 500mg Take 1 Univers 500 mg 04-14 capsule by [facility] capsule 00:00: 05:59 mouth 4 [place] 00 :00 () Medical times Branch daily for 14 days. cephALEXin 2021-03- Yes [id number] 500mg Take 1 [facility] 500 mg 04-14 capsule by [facility] capsule 00:00: 05:59 mouth 4 [place] 00 :00 () Medical times Branch daily for 14 days. cephALEXin 2021-03- Yes [id number] 500mg Take 1 [facility] 500 mg 04-14 capsule by [facility] capsule 00:00: 05:59 mouth 4 [place] 00 :00 () Medical times Branch daily for 14 days. cephALEXin 2021-03- Yes [id number] 500mg Take 1 [facility] 500 mg 04-14 capsule by [facility] of capsule 00:00: 05:59 mouth 4 [place] 00 :00 () Medical times Branch daily for 14 days. cephALEXin 2021-03- No [id number] 500mg Take 1 [facility] 500 mg 04-14 capsule by [facility] of capsule 00:00: 05:59 mouth 4 [place] 00 :00 () Medical times Branch daily for 14 days. cephALEXin 2021-03- No [id number] 500mg Take 1 [facility] 500 mg 04-14 capsule by [facility] of capsule 00:00: 05:59 mouth 4 [place] 00 :00 () Medical times Branch daily for 14 days. [...] Indication s: acute pain cephALEXin 2021-03- Yes [id number] 500mg Take 1 [facility] 500 mg 04-07 capsule by [facility] of capsule 00:00: 05:59 mouth 4 [place] 00 :00 (four) Medical times Branch daily for 10 days. cephALEXin 2021-03- No [id number] 500mg Take 1 [facility] 500 mg 04-07 capsule by [facility] of capsule 00:00: 00:00 mouth 4 [place] 00 :00 (four) Medical times Branch daily for 10 days. cephALEXin 2021-03- No [id number] 500mg Take 1 [facility] 500 mg 04-07 capsule by [facility] of capsule 00:00: 00:[address] [place] [address] 00 :00 (four) Medical times Branch daily for 10 days. cephALEXin 2021-03- No [id number] 500mg Take 1 [facility] 500 mg 04-07 capsule by [facility] of capsule 00:00: 00:[address] [place] [address] 00 :00 (four) Medical times Branch daily for 10 days. cephALEXin 2021-03- No [id number] 500mg Take 1 [facility] 500 mg 04-07 capsule by [facility] of capsule 00:00: 00:00 mouth 4 [place] 00 :00 (four) Medical times Branch daily for 10 days. cephALEXin 2021-03- No [id number] 500mg Take 1 [facility] 500 mg 04-0716 capsule by [facility] of capsule 00:00: 00:00 mouth 4 [place] 00 :00 (four) Medical times Branch daily for 10 days. cephALEXin 2021-03 Yes [id number] 500mg Take 1 [facility] (KEFLEX) 0-18 [id number] capsule by ity of 500 mg 00:00: mouth 2 [place] capsule 00 (two) Medical times Branch daily. ibuprofen 2021-03 Yes [id number] 800mg Take 1 [facility] 800 mg 0-18 [id number] tablet by ity of tablet 00:00: mouth [place] 00 every 8 Medical (eight) Branch hours as needed for Pain (scale 4-6). cephALEXin 2021-03 Yes [id number] 500mg Take 1 [facility] (KEFLEX) 0-18 [id number] capsule by [facility]y of 500 mg 00:00: mouth 2 [place] capsule 00 (two) Medical times Branch daily. ibuprofen 2021-03 Yes [id number] 800mg Take 1 [facility] 800 mg 0-18 [id number] tablet by [facility] of tablet 00:00: mouth [place] 00 every 8 Medical (eight) Branch hours as needed for Pain (scale 4-6). ibuprofen 2021-03 Yes [id number] 800mg Take 1 [facility] 800 mg 0-18 [id number] tablet by [facility] of tablet 00:00: mouth [place] 00 every 8 Medical (eight) Branch hours as needed for Pain (scale 4-6). ibuprofen 2021-03 Yes [id number] 800mg Take 1 [facility] 800 mg 0-18 [id number] tablet by it[facility] of tablet 00:00: mouth [place] 00 every 8 Medical (eight) Branch hours as needed for Pain (scale 4-6). ibuprofen 2021-03 Yes [id number] 800mg Take 1 [facility] 800 mg 0-18 [id number] tablet by [facility] of tablet 00:00: mouth [place] 00 every 8 Medical (eight) Branch hours as needed for Pain (scale 4-6). ibuprofen 2021-03 Yes [id number] 800mg Take 1 [facility] 800 mg 0-18 [id number] tablet by [facility] of tablet 00:00: mouth [place] 00 every 8 Medical (eight) Branch hours as needed for Pain (scale 4-6). ibuprofen 2021-03 Yes [id number] 800mg Take 1 [facility] 800 mg 0-18 [id number] tablet by [facility] of tablet 00:00: mouth [place] 00 every 8 Medical (eight) Branch hours as needed for Pain (scale 4-6). ibuprofen 2021-03 Yes [id number] 800mg Take 1 [facility] 800 mg 0-18 [id number] tablet by [facility] of tablet 00:00: mouth [place] 00 every 8 Medical (eight) Branch hours as needed for Pain (scale 4-6). ibuprofen 2021-03 Yes [id number] 800mg Take 1 [facility] 800 mg 0-18 [id number] tablet by ity of tablet 00:00: mouth [place] 00 every 8 Medical (eight) Branch hours as needed for Pain (scale 4-6). ibuprofen 2021-03 Yes [id number] 800mg Take 1 [facility] 800 mg 0-18 [id number] tablet by ity of tablet 00:00: mouth [place] 00 every 8 Medical (eight) Branch hours as needed for Pain (scale 4-6). ibuprofen 2021-03 Yes [id number] 800mg Take 1 [facility] 800 mg 0-18 [id number] tablet by it[facility] of tablet 00:00: mouth [place] 00 every 8 Medical (eight) Branch hours as needed for Pain (scale 4-6). ibuprofen 2021-03 Yes [id number] 800mg Take 1 [facility] 800 mg 0-18 [id number] tablet by it[facility] of tablet 00:00: mouth [place] 00 every 8 Medical (eight) Branch hours as needed for Pain (scale 4-6). ibuprofen 2021-03 Yes [id number] 800mg Take 1 [facility] 800 mg 0-18 [id number] tablet by it[facility] of tablet 00:00: mouth [place] 00 every 8 Medical (eight) Branch hours as needed for Pain (scale 4-6). ibuprofen 2021-03 Yes [id number] 800mg Take 1 [facility] 800 mg 0-18 [id number] tablet by ity of tablet 00:00: mouth [place] 00 every 8 Medical (eight) Branch hours as needed for Pain (scale 4-6). ibuprofen 2021-03 Yes [id number] 800mg Take 1 [facility] 800 mg 0-18 [id number] tablet by ity of tablet 00:00: mouth [place] 00 every 8 Medical (eight) Branch hours as needed for Pain (scale 4-6). cephALEXin 2021-03- No [id number] 500mg Take 1 [facility] (KEFLEX) 0-18 11-16 [id number] capsule by it y of 500 mg 00:00: 00:00 mouth 2 [place] capsule 00 :00 (two) Medical times Branch daily. cephALEXin 2021-03- No [id number] 500mg Take 1 [facility] (KEFLEX) 0-18 11-16 [id number] capsule by it y of 500 mg 00:00: 00:00 mouth 2 [place] capsule 00 :00 (two) Medical times Branch daily. cephALEXin 2021-03- No [id number] 500mg Take 1 [facility] (KEFLEX) 0-18 11-16 [id number] capsule by it y of 500 mg 00:00: 00:00 mouth 2 [place] capsule 00 :00 (two) Medical times Branch daily. cephALEXin 2021-03- No [id number] 500mg Take 1 [facility] (KEFLEX) 0-18 -16 [id number] capsule by it y of 500 mg 00:00: 00:00 mouth 2 [place] capsule 00 :00 (two) Medical times Branch daily. cephALEXin 2021-03- No [id number] 500mg Take 1 [facility] (KEFLEX) 0-18 -16 [id number] capsule by it y of 500 mg 00:00: 00:00 mouth 2 [place] capsule 00 :00 (two) Medical times Branch daily. clindamycin 2021- No 600mg 600 mg, IV [facility] in [...] stricted use approved by: ED PROVIDER doxycycline 2021- Yes [id number] 100mg Take 1 [facility] hyclate 100 -28 capsule by [facility] mg capsule 00:00: mouth 2 [place] 00 (two) [facility] times [facility] daily. doxycycline 2021-0 Yes [id number] 100mg Take 1 [facility] hyclate 100 -28 capsule by [facility] mg capsule 00:00: mouth 2 [place] 00 (two) [facility] times [facility] daily. doxycycline 2022-0 Yes [id number] 100mg Take 1 [facility] hyclate 100 9-28 capsule by [facility] mg capsule 00:00: mouth 2 [place] 00 (two) [facility] times [facility] daily. doxycycline 2022-0 Yes [id number] 100mg Take 1 [facility] hyclate 100 9-28 capsule by [facility] mg capsule 00:00: mouth 2 [place] 00 (two) [facility] times [facility] daily. doxycycline 2022-0 Yes [id number] 100mg Take 1 [facility] hyclate 100 9-28 capsule by [facility] mg capsule 00:00: mouth 2 [place] 00 (two) [facility] times [facility] daily. doxycycline 2022-0 Yes [id number] 100mg Take 1 [facility] hyclate 100 9-28 capsule by [facility] mg capsule 00:00: mouth 2 [place] 00 (two) [facility] times [facility] daily. doxycycline 2022-0 Yes [id number] 100mg Take 1 [facility] hyclate 100 9-28 capsule by [facility] mg capsule 00:00: mouth 2 [place] 00 (two) [facility] times [facility] daily. doxycycline 2-0 Yes [id number] 100mg Take 1 [facility] hyclate 100 9-28 capsule by [facility] mg capsule 00:00: mouth 2 [place] 00 (two) [facility] times [facility] daily. doxycycline 2-0 Yes [id number] 100mg Take 1 [facility] hyclate 100 9-28 capsule by [facility] mg capsule 00:00: mouth 2 [place] 00 (two) Medical times [facility] daily. doxycycline 2022-0 Yes [id number] 100mg Take 1 [facility] hyclate 100 9-28 capsule by [facility] mg capsule 00:00: mouth 2 [place] 00 (two) Medical times [facility] daily. doxycycline 2022-0 Yes [id number] 100mg Take 1 [facility] hyclate 100 9-28 capsule by [facility] mg capsule 00:00: mouth 2 [place] 00 (two) [facility] times [facility] daily. doxycycline 2022-0 Yes [id number] 100mg Take 1 [facility] hyclate 100 9-28 capsule by [facility] mg capsule 00:00: mouth 2 [place] 00 (two) [facility] times [facility] daily. doxycycline 2022-0 2022- No [id number] 100mg Take 1 [facility] hyclate 100 9-28 12-15 capsule by i ty of mg capsule 00:00: 00:00 mouth 2 [place] 00 :00 (two) Medical times [facility] daily. doxycycline 2022-0 2022- No [id number] 100mg Take 1 [facility] hyclate 100 9 12-15 capsule by i ty of mg capsule 00:00: 00:00 mouth 2 [place] 00 :00 (two) Medical times [facility] daily. doxycycline 2022-0 2022- No [id number] 100mg Take 1 [facility] hyclate 100 9-28 12-15 capsule by i ty of mg capsule 00:00: 00:00 mouth 2 [place] 00 :00 (two) Medical times [facility] daily. TAKE 1 2022-0 No TABLET ONCE 8-11 DAILY. 00:00: 00 TAKE 1 2-0 No 45 TABLET ONCE 8-11 DAILY. 00:00: [...] 10 mg 3-08 tablet 00:00: 00 pioglitazon 2-0 No 1mg e 45 mg 3-08 tablet 00:00: 00 glimepiride 2-0 No 1mg 4 mg tablet 3-08 00:00: 00 carvedilol 2-0 No 1mg 12.5 mg 3-08 tablet 00:00: [...] 2022-0 No Unknown 3-08 00:00: 00 amlodipine 2-0 No 1mg 10 mg 3-08 tablet 00:00: 00 pioglitazon 2-0 No 1mg e 45 mg 3-08 tablet 00:00: 00 glimepiride 2-0 No 1mg 4 mg tablet 3-08 00:00: [...] 2021-1 No Unknown 2-18 00:00: 00 Dose 1-1 No Unknown 2-18 00:00: 00 Dose 1-1 No Unknown 2-18 00:00: 00 Dose 1-1 No Unknown 2-18 00:00: 00 Dose 1-1 No Unknown 2-18 00:00: 00 Dose 1-1 No Unknown 2-18 00:00: 00 Dose 1-1 No Unknown 2-18 00:00: 00 Dose 1-1 No Unknown 2-18 00:00: 00 pioglitazon 2021-0 [...] 12.5 mg 4-06 tablet 00:00: 00 metformin 1-0 No 2mg ER 500 mg 4-06 tablet,exte 00:00: nded 00 release 24 hr glimepiride 1-0 No 1mg 4 mg tablet 4-06 00:00: 00 metformin 2021-0 No 2mg ER 500 mg 4-06 tablet,exte 00:00: nded 00 release 24 hr atorvastati 1-0 No 1mg n 20 mg 4-06 tablet 00:00: 00 atorvastati 2021-0 No 1mg n 20 mg 4-06 tablet 00:00: 00 amlodipine 2020-1 No 1mg 10 mg 2-08 tablet 00:00: 00 metformin 2019-1 No 2mg ER 500 mg 2-08 tablet,exte 00:00: nded 00 release 24 hr glimepiride 2019-1 No 1mg 4 mg tablet 2-08 00:00: 00 carvedilol 2020-1 No 1mg 12.5 mg 2-08 tablet 00:00: 00 atorvastati 2020-1 No 1mg n 20 mg 2-08 tablet 00:00: 00 amlodipine 2020-1 No 1mg 10 mg 2-08 tablet 00:00: 00 metformin 2020-1 No 2mg ER 500 mg 2-08 tablet,exte 00:00: nded 00 release 24 hr glimepiride 2020-1 No 1mg 4 mg tablet 2-08 00:00: 00 carvedilol 2020-1 No 1mg 12.5 mg 2-08 tablet 00:00: 00 atorvastati 2020-1 No 1mg n 20 mg 2-08 tablet 00:00: 00 glimepiride 2020-0 No 1mg 4 mg tablet 9 00:00: 00 glimepiride 2020-0 No 1mg 4 [...] 00:00: ophen 325 00 mg tablet insulin 2020-0 Yes [id number] 10U inject 10 [facility] glargine 9-22 Units ity of 100 unit/mL 00:00: under the [place] injection 00 skin 2 Medical (two) Branch times daily. empaglifloz 2020-0 Yes [id number] 1{tbl} Take 1 [facility] in 9-22 tablet by ity of (JARDIANCE) 00:00: mouth [place] 10 mg Tab 00 daily. Medical Branch insulin 2020-0 Yes [id number] 10U inject 10 [facility] glargine 9-22 Units ity of 100 unit/mL 00:00: under the [place] injection 00 skin 2 Medical (two) Branch times daily. empaglifloz 2020-0 Yes [id number] 1{tbl} Take 1 [facility] in 9-22 tablet by ity of (JARDIANCE) 00:00: mouth [place] 10 mg Tab 00 daily. Medical Branch insulin 2020-0 Yes [id number] 10U inject 10 [facility] glargine 9-22 Units ity of 100 unit/mL 00:00: under the [place] injection 00 skin 2 Medical (two) Branch times daily. empaglifloz 2020-0 Yes [id number] 1{tbl} Take 1 [facility] in 9-22 tablet by ity of (JARDIANCE) 00:00: mouth [place] 10 mg Tab 00 daily. Medical Branch insulin 2020-0 Yes [id number] 10U inject 10 [facility] glargine 9-22 Units ity of 100 unit/mL 00:00: under the [place] injection 00 skin 2 Medical (two) Branch times daily. empaglifloz 2020-0 Yes [id number] 1{tbl} Take 1 [facility] in 9-22 tablet by ity of (JARDIANCE) 00:00: mouth [place] 10 mg Tab 00 daily. Medical Branch insulin 2020-0 Yes [id number] 10U inject 10 [facility] glargine 9-22 Units ity of 100 unit/mL 00:00: under the [place] injection 00 skin 2 Medical (two) Branch times daily. empaglifloz 2020-0 Yes [id number] 1{tbl} Take 1 [facility] in 9-22 tablet by ity of (JARDIANCE) 00:00: mouth [place] 10 mg Tab 00 daily. Medical Branch insulin 2020-0 Yes [id number] 10U inject 10 [facility] glargine 9-22 Units ity of 100 unit/mL 00:00: under the [place] injection 00 skin 2 Medical (two) Branch times daily. empaglifloz 2020-0 Yes [id number] 1{tbl} Take 1 [facility] in 9-22 tablet by ity of (JARDIANCE) 00:00: mouth [place] 10 mg Tab 00 daily. Medical Branch insulin 2020-0 Yes [id number] 10U inject 10 [facility] glargine 9-22 Units ity of 100 unit/mL 00:00: under the [place] injection 00 skin 2 Medical (two) Branch times daily. empaglifloz 2020-0 Yes [id number] 1{tbl} Take 1 [facility] in 9-22 tablet by ity of (JARDIANCE) 00:00: mouth [place] 10 mg Tab 00 daily. Medical Branch insulin 2020-0 Yes [id number] 10U inject 10 [facility] glargine 9-22 Units ity of 100 unit/mL 00:00: under the [place] injection 00 skin 2 Medical (two) Branch times daily. empaglifloz 2020-0 Yes [id number] 1{tbl} Take 1 [facility] in 9-22 tablet by ity of (JARDIANCE) 00:00: mouth [place] 10 mg Tab 00 daily. Medical Branch insulin 2020-0 Yes [id number] 10U inject 10 [facility] glargine 9-22 Units ity of 100 unit/mL 00:00: under the [place] injection 00 skin 2 Medical (two) Branch times daily. empaglifloz 2020-0 Yes [id number] 1{tbl} Take 1 [facility] in 9-22 tablet by ity of (JARDIANCE) 00:00: mouth [place] 10 mg Tab 00 daily. Medical Branch insulin 2020-0 Yes [id number] 10U inject 10 [facility] glargine 9-22 Units ity of 100 unit/mL 00:00: under the [place] injection 00 skin 2 Medical (two) Branch times daily. empaglifloz 2020-0 Yes [id number] 1{tbl} Take 1 [facility] in 9-22 tablet by ity of (JARDIANCE) 00:00: mouth [place] 10 mg Tab 00 daily. Medical Branch insulin 2020-0 Yes [id number] 10U inject 10 [facility] glargine 9-22 Units ity of 100 unit/mL 00:00: under the [place] injection 00 skin 2 Medical (two) Branch times daily. empaglifloz 2020-0 Yes [id number] 1{tbl} Take 1 [facility] in 9-22 tablet by ity of (JARDIANCE) 00:00: mouth [place] 10 mg Tab 00 daily. Medical Branch insulin 2020-0 Yes [id number] 10U inject 10 [facility] glargine 9-22 Units ity of 100 unit/mL 00:00: under the [place] injection 00 skin 2 Medical (two) Branch times daily. empaglifloz 2020-0 Yes [id number] 1{tbl} Take 1 [facility] in 9-22 tablet by ity of (JARDIANCE) 00:00: mouth [place] 10 mg Tab 00 daily. Medical Branch insulin 2020-0 Yes [id number] 10U inject 10 [facility] glargine 9-22 Units ity of 100 unit/mL 00:00: under the [place] injection 00 skin 2 Medical (two) Branch times daily. empaglifloz 2020-0 Yes [id number] 1{tbl} Take 1 [facility] in 9-22 tablet by ity of (JARDIANCE) 00:00: mouth [place] 10 mg Tab 00 daily. Medical Branch insulin 2020-0 Yes [id number] 10U inject 10 [facility] glargine 9-22 Units ity of 100 unit/mL 00:00: under the [place] injection 00 skin 2 Medical (two) Branch times daily. empaglifloz 2020-0 Yes [id number] 1{tbl} Take 1 [facility] in 9-22 tablet by ity of (JARDIANCE) 00:00: mouth [place] 10 mg Tab 00 daily. Medical Branch insulin 2020-0 Yes [id number] 10U inject 10 [facility] glargine 9-22 Units ity of 100 unit/mL 00:00: under the [place] injection 00 skin 2 Medical (two) Branch times daily. empaglifloz 2020-0 Yes [id number] 1{tbl} Take 1 [facility] in 9-22 tablet by ity of (JARDIANCE) 00:00: mouth [place] 10 mg Tab 00 daily. Medical Branch insulin 2020-0 Yes [id number] 10U inject 10 [facility] glargine 9-22 Units ity of 100 unit/mL 00:00: under the [place] injection 00 skin 2 Medical (two) Branch times daily. empaglifloz 2020-0 Yes [id number] 1{tbl} Take 1 [facility] in 9-22 tablet [...] Indication s: acute pain insulin 2020-0 Yes [id number] 10U inject 10 [facility] glargine 9-22 Units ity of 100 unit/mL 00:00: under the [place] injection 00 skin 2 Medical (two) Branch times daily. empaglifloz 2020-0 Yes [id number] 1{tbl} Take 1 [facility] in 9-22 tablet [...] Indication s: acute pain insulin 2020-0 Yes [id number] 10U inject 10 [facility] glargine 9-22 Units ity of 100 unit/mL 00:00: under the [place] injection 00 skin 2 Medical (two) Branch times daily. empaglifloz 2020-0 Yes [id number] 1{tbl} Take 1 [facility] in 9-22 tablet by ity of (JARDIANCE) 00:00: mouth [place] 10 mg Tab 00 daily. Medical Branch acetaminoph 2019-0 Yes [id number] 1{tbl} Take 1 Un davy en-codeine 9-22 tablet by ity of (TYLENOL-CO 00:00: mouth [place] DEINE #3) 00 every 6 Medical 300-30 mg (six) Branch tablet hours as needed for Pain (scale 4-6). Indication s: chronic pain insulin 2020-0 Yes [id number] 10U inject 10 [facility] glargine 9-22 Units ity of 100 unit/mL 00:00: under the [place] injection 00 skin 2 Medical (two) Branch times daily. empaglifloz 2020-0 Yes [id number] 1{tbl} Take 1 [facility] in 9-22 tablet [...] Indication s: acute pain insulin 2020-0 Yes [id number] 10U inject 10 [facility] glargine 9-22 Units ity of 100 unit/mL 00:00: under the [place] injection 00 skin 2 Medical (two) Branch times daily. empaglifloz 2020-0 Yes [id number] 1{tbl} Take 1 [facility] in 9-22 tablet [...] Indication s: acute pain insulin 2020-0 Yes [id number] 10U inject 10 [facility] glargine 9-22 Units ity of 100 unit/mL 00:00: under the [place] injection 00 skin 2 Medical (two) Branch times daily. empaglifloz 2020-0 Yes [id number] 1{tbl} Take 1 [facility] in 9-22 tablet [...] Indication s: acute pain insulin 2020-0 Yes [id number] 10U inject 10 [facility] glargine 9-22 Units ity of 100 unit/mL 00:00: under the [place] injection 00 skin 2 Medical (two) Branch times daily. empaglifloz 2020-0 Yes [id number] 1{tbl} Take 1 [facility] in 9-22 tablet [...] Indication s: acute pain insulin 2020-0 Yes [id number] 10U inject 10 [facility] glargine 9-22 Units ity of 100 unit/mL 00:00: under the [place] injection 00 skin 2 Medical (two) Branch times daily. empaglifloz 2020-0 Yes [id number] 1{tbl} Take 1 [facility] in 9-22 tablet [...] Indication s: acute pain insulin 2020-0 Yes [id number] 10U inject 10 [facility] glargine 9-22 Units ity of 100 unit/mL 00:00: under the [place] injection 00 skin 2 Medical (two) Branch times daily. empaglifloz 2020-0 Yes [id number] 1{tbl} Take 1 [facility] in 9-22 tablet [...] Indication s: acute pain insulin 2020-0 Yes [id number] 10U inject 10 [facility] glargine 9-22 Units ity of 100 unit/mL 00:00: under the [place] injection 00 skin 2 Medical (two) Branch times daily. empaglifloz 2020-0 Yes [id number] 1{tbl} Take 1 [facility] in 9-22 tablet [...] Indication s: acute pain insulin 2020-0 Yes [id number] 10U inject 10 [facility] glargine 9-22 Units ity of 100 unit/mL 00:00: under the [place] injection 00 skin 2 Medical (two) Branch times daily. empaglifloz 2020-0 Yes [id number] 1{tbl} Take 1 [facility] in 9-22 tablet [...] Indication s: acute pain insulin 2020-0 Yes [id number] 10U inject 10 [facility] glargine 9-22 Units ity of 100 unit/mL 00:00: under the [place] injection 00 skin 2 Medical (two) Branch times daily. empaglifloz 2020-0 Yes [id number] 1{tbl} Take 1 [facility] in 9-22 tablet [...] Indication s: acute pain insulin 2020-0 Yes [id number] 10U inject 10 [facility] glargine 9-22 Units ity of 100 unit/mL 00:00: under the [place] injection 00 skin 2 Medical (two) Branch times daily. empaglifloz 2020-0 Yes [id number] 1{tbl} Take 1 [facility] in 9-22 tablet [...] Indication s: acute pain insulin 2020-0 Yes [id number] 10U inject 10 [facility] glargine 9-22 Units ity of 100 unit/mL 00:00: under the [place] injection 00 skin 2 Medical (two) Branch times daily. empaglifloz 2020-0 Yes [id number] 1{tbl} Take 1 [facility] in 9-22 tablet by ity of (JARDIANCE) 00:00: mouth [place] 10 mg Tab 00 daily. Medical Branch insulin 2020-0 Yes [id number] 10U inject 10 [facility] glargine 9-22 Units ity of 100 unit/mL 00:00: under the [place] injection 00 skin 2 Medical (two) Branch times daily. empaglifloz 2020-0 Yes [id number] 1{tbl} Take 1 [facility] in 9-22 tablet by ity of (JARDIANCE) 00:00: mouth [place] 10 mg Tab 00 daily. Medical Branch insulin 2020-0 Yes [id number] 10U inject 10 [facility] glargine 9-22 Units ity of 100 unit/mL 00:00: under the [place] injection 00 skin 2 Medical (two) Branch times daily. empaglifloz 2020-0 Yes [id number] 1{tbl} Take 1 [facility] in 9-22 tablet by ity of (JARDIANCE) 00:00: mouth [place] 10 mg Tab 00 daily. Medical Branch insulin 2020-0 Yes [id number] 10U inject 10 [facility] glargine 9-22 Units ity of 100 unit/mL 00:00: under the [place] injection 00 skin 2 Medical (two) Branch times daily. empaglifloz 2020-0 Yes [id number] 1{tbl} Take 1 [facility] in 9-22 tablet by ity of (JARDIANCE) 00:00: mouth [place] 10 mg Tab 00 daily. Medical Branch insulin 2020-0 Yes [id number] 10U inject 10 [facility] glargine 9-22 Units ity of 100 unit/mL 00:00: under the [place] injection 00 skin 2 Medical (two) Branch times daily. empaglifloz 2020-0 Yes [id number] 1{tbl} Take 1 [facility] in 9-22 tablet by ity of (JARDIANCE) 00:00: mouth [place] 10 mg Tab 00 daily. Medical Branch insulin 2020-0 Yes [id number] 10U inject 10 [facility] glargine 9-22 Units ity of 100 unit/mL 00:00: under the [place] injection 00 skin 2 Medical (two) Branch times daily. empaglifloz 2020-0 Yes [id number] 1{tbl} Take 1 [facility] in 9-22 tablet by ity of (JARDIANCE) 00:00: mouth [place] 10 mg Tab 00 daily. Medical Branch insulin 2020-0 Yes [id number] 10U inject 10 [facility] glargine 9-22 Units ity of 100 unit/mL 00:00: under the [place] injection 00 skin 2 Medical (two) Branch times daily. empaglifloz 2020-0 Yes [id number] 1{tbl} Take 1 [facility] in 9-22 tablet by ity of (JARDIANCE) 00:00: mouth [place] 10 mg Tab 00 daily. Medical Branch insulin 2020-0 Yes [id number] 10U inject 10 [facility] glargine 9-22 Units ity of 100 unit/mL 00:00: under the [place] injection 00 skin 2 Medical (two) Branch times daily. empaglifloz 2020-0 Yes [id number] 1{tbl} Take 1 [facility] in 9-22 tablet by ity of (JARDIANCE) 00:00: mouth [place] 10 mg Tab 00 daily. Medical [facility] insulin 2020-0 Yes [id number] 10U inject 10 [facility] glargine 9-22 Units ity of 100 unit/mL 00:00: under the [place] injection 00 skin 2 Medical (two) Branch times daily. empaglifloz 2020-0 Yes [id number] 1{tbl} Take 1 [facility] in 9-22 tablet by ity of (JARDIANCE) 00:00: mouth [place] 10 mg Tab 00 daily. Medical Branch insulin 2020-0 Yes [id number] 10U inject 10 [facility] glargine 9-22 Units ity of 100 unit/mL 00:00: under the [place] injection 00 skin 2 Medical (two) Branch times daily. empaglifloz 2020-0 Yes [id number] 1{tbl} Take 1 [facility] in 9-22 tablet by ity of (JARDIANCE) 00:00: mouth [place] 10 mg Tab 00 daily. Medical [facility] insulin 2020-0 Yes [id number] 10U inject 10 [facility] glargine 9-22 Units ity of 100 unit/mL 00:00: under the [place] injection 00 skin 2 Medical (two) Branch times daily. empaglifloz 2020-0 Yes [id number] 1{tbl} Take 1 [facility] in 9-22 tablet by ity of (JARDIANCE) 00:00: mouth [place] 10 mg Tab 00 daily. Medical [facility] insulin 2020-0 Yes [id number] 10U inject 10 [facility] glargine 9-22 Units ity of 100 unit/mL 00:00: under the [place] injection 00 skin 2 Medical (two) Branch times daily. empaglifloz 2020-0 Yes [id number] 1{tbl} Take 1 [facility] in 9-22 tablet by ity of (JARDIANCE) 00:00: mouth [place] 10 mg Tab 00 daily. Medical [facility] insulin 2020-0 Yes [id number] 10U inject 10 [facility] glargine 9-22 Units ity of 100 unit/mL 00:00: under the [place] injection 00 skin 2 Medical (two) Branch times daily. empaglifloz 2020-0 Yes [id number] 1{tbl} Take 1 [facility] in 9-22 tablet by ity of (JARDIANCE) 00:00: mouth [place] 10 mg Tab 00 daily. Medical [facility] insulin 2020-0 Yes [id number] 10U inject 10 [facility] glargine 9-22 Units ity of 100 unit/mL 00:00: under the [place] injection 00 skin 2 Medical (two) Branch times daily. empaglifloz 2020-0 Yes [id number] 1{tbl} Take 1 [facility] in 9-22 tablet by ity of (JARDIANCE) 00:00: mouth [place] 10 mg Tab 00 daily. Medical [facility] insulin 2020-0 Yes [id number] 10U inject 10 [facility] glargine 9-22 Units ity of 100 unit/mL 00:00: under the [place] injection 00 skin 2 Medical (two) Branch times daily. empaglifloz 2020-0 Yes [id number] 1{tbl} Take 1 [facility] in 9-22 tablet by ity of (JARDIANCE) 00:00: mouth [place] 10 mg Tab 00 daily. Medical [facility] insulin 2020-0 Yes [id number] 10U inject 10 [facility] glargine 9-22 Units ity of 100 unit/mL 00:00: under the [place] injection 00 skin 2 Medical (two) Branch times daily. empaglifloz 2020-0 Yes [id number] 1{tbl} Take 1 [facility] in 9-22 tablet by [facility] ([facility]) 00:00: mouth [place] 10 mg Tab 00 daily. [facility] insulin 2020-0 Yes [id number] 10U inject 10 [facility] glargine 9-22 Units [facility] 100 unit/mL 00:00: under the [place] injection 00 skin 2 Medical (two) Branch times daily. empaglifloz 2020-0 Yes [id number] 1{tbl} Take 1 [facility] in 9-22 tablet by [facility] ([facility]) 00:00: mouth [place] 10 mg Tab 00 daily. [facility] insulin 2020-0 Yes [id number] 10U inject 10 [facility] glargine 9-22 Units [facility] 100 unit/mL 00:00: under the [place] injection 00 skin 2 Medical (two) Branch times daily. empaglifloz 2020-0 Yes [id number] 1{tbl} Take 1 [facility] in 9-22 tablet by [facility] ([facility]) 00:00: mouth [place] 10 mg Tab 00 daily. [facility] insulin 2020-0 Yes [id number] 10U inject 10 [facility] glargine 9-22 Units [facility] 100 unit/mL 00:00: under the [place] injection 00 skin 2 Medical (two) Branch times daily. empaglifloz 2020-0 Yes [id number] 1{tbl} Take 1 [facility] in 9-22 tablet by [facility] ([facility]) 00:00: mouth [place] 10 mg Tab 00 daily. [facility] insulin 2020-0 Yes [id number] 10U inject 10 [facility] glargine 9-22 Units [facility] 100 unit/mL 00:00: under the [place] injection 00 skin 2 Medical (two) Branch times daily. empaglifloz 2020-0 Yes [id number] 1{tbl} Take 1 [facility] in 9-22 tablet by [facility] ([facility]) 00:00: mouth [place] 10 mg Tab 00 daily. [facility] insulin 2020-0 Yes [id number] 10U inject 10 [facility] glargine 9-22 Units [facility] 100 unit/mL 00:00: under the [place] injection 00 skin 2 Medical (two) Branch times daily. empaglifloz 2020-0 Yes [id number] 1{tbl} Take 1 [facility] in 9-22 tablet by [facility] ([facility]) 00:00: mouth [place] 10 mg Tab 00 daily. [facility] insulin 2020-0 Yes [id number] 10U inject 10 [facility] glargine 9-22 Units [facility] 100 unit/mL 00:00: under the [place] injection 00 skin 2 Medical (two) Branch times daily. empaglifloz 2020-0 Yes [id number] 1{tbl} Take 1 [facility] in 9-22 tablet by [facility] ([facility]) 00:00: mouth [place] 10 mg Tab 00 daily. [facility] insulin 2020-0 Yes [id number] 10U inject 10 [facility] glargine 9-22 Units [facility] 100 unit/mL 00:00: under the [place] injection 00 skin 2 Medical (two) Branch times daily. empaglifloz 2020-0 Yes [id number] 1{tbl} Take 1 [facility] in 9-22 tablet by [facility] ([facility]) 00:00: mouth [place] 10 mg Tab 00 daily. [facility] insulin 2020-0 Yes [id number] 10U inject 10 [facility] glargine 9-22 Units [facility] 100 unit/mL 00:00: under the [place] injection 00 skin 2 Medical (two) Branch times daily. empaglifloz 2020-0 Yes [id number] 1{tbl} Take 1 [facility] in 9-22 tablet by [facility] ([facility]) 00:00: mouth [place] 10 mg Tab 00 daily. [facility] insulin 2020-0 Yes [id number] 10U inject 10 [facility] glargine 9-22 Units [facility] 100 unit/mL 00:00: under the [place] injection 00 skin 2 Medical (two) Branch times daily. empaglifloz 2020-0 Yes [id number] 1{tbl} Take 1 [facility] in 9-22 tablet [...] Indication s: chronic pain amoxicillin 2019-0 Yes [id number] 1{tbl} Take 1 [facility] -clavulanat 9-13 tablet by [facility] of e 00:00: mouth 2 [place] (AUGMENTIN) 00 (two) Medical 875-125 mg times Branch per tablet daily. atorvastati 2020-0 Yes [id number] 20mg Take 1 [facility] n 20 mg 9-13 tablet by [facility] of tablet 00:00: mouth at [place] [address] bedtime. Medical [facility] carvediloL 2020-0 Yes [id number] 12.5mg Take 1 [facility] 12.5 mg 9-13 tablet by [facility] tablet 00:00: mouth 2 [place] 00 (two) Medical times Branch daily with meals. aspirin 81 2020-0 Yes [id number] 81mg Take 1 [facility] mg chewable 9-13 tablet by [facility] of tablet 00:00: mouth [place] 00 daily. [facility] amoxicillin 2020-0 Yes [id number] 1{tbl} Take 1 [facility] -clavulanat 9-13 tablet by [facility] of e 00:00: mouth 2 [place] (AUGMENTIN) 00 (two) Medical 875-125 mg times Branch per tablet daily. atorvastati 2020-0 Yes [id number] 20mg Take 1 [facility] n 20 mg 9-13 tablet by [facility] of tablet 00:00: mouth at [place] 00 bedtime. [facility] carvediloL 2020-0 Yes [id number] 12.5mg Take 1 [facility] 12.5 mg 9-13 tablet by [facility] tablet 00:00: mouth 2 (two) Medical times Branch daily with meals. aspirin 81 2020-0 Yes [id number] 81mg Take 1 [facility] mg chewable 9-13 tablet by [facility] tablet 00:00: mouth [place] 00 daily. [facility] amoxicillin 2020-0 Yes [id number] 1{tbl} Take 1 [facility] -clavulanat 9-13 tablet by [facility] of e 00:00: mouth 2 [place] (AUGMENTIN) 00 (two) Medical 875-125 mg times Branch per tablet daily. atorvastati 2020-0 Yes [id number] 20mg Take 1 [facility] n 20 mg 9-13 tablet by [facility] of tablet 00:00: mouth at [place] 00 bedtime. [facility] carvediloL 2020-0 Yes [id number] 12.5mg Take 1 [facility] 12.5 mg 9-13 tablet by [facility] tablet 00:00: mouth 2 [place] (two) Medical times Branch daily with meals. aspirin 81 2020-0 Yes [id number] 81mg Take 1 [facility] mg chewable 9-13 tablet by [facility] of tablet 00:00: mouth [place] 00 daily. [facility] amoxicillin 2020-0 Yes [id number] 1{tbl} Take 1 [facility] -clavulanat 9-13 tablet by [facility] of e 00:00: mouth 2 [place] (AUGMENTIN) 00 (two) Medical 875-125 mg times Branch per tablet daily. atorvastati 2020-0 Yes [id number] 20mg Take 1 [facility] n 20 mg 9-13 tablet by [facility] of tablet 00:00: mouth at [place] 00 bedtime. Medical [facility] carvediloL 2020-0 Yes [id number] 12.5mg Take 1 [facility] 12.5 mg 9-13 tablet by [facility] tablet 00:00: mouth 2 [place] (two) Medical times Branch daily with meals. aspirin 81 2020-0 Yes [id number] 81mg Take 1 [facility] mg chewable 9-13 tablet by [facility] of tablet 00:00: mouth [place] 00 daily. [facility] amoxicillin 2020-0 Yes [id number] 1{tbl} Take 1 [facility] -clavulanat 9-13 tablet by [facility] of e 00:00: mouth 2 [place] (AUGMENTIN) 00 (two) Medical 875-125 mg times Branch per tablet daily. atorvastati 2020-0 Yes [id number] 20mg Take 1 [facility] n 20 mg 9-13 tablet by [facility] of tablet 00:00: mouth at [place] 00 bedtime. [facility] carvediloL 2020-0 Yes [id number] 12.5mg Take 1 [facility] 12.5 mg 9-13 tablet by [facility] tablet 00:00: mouth 2 [place] 00 (two) Medical times Branch daily with meals. aspirin 81 2020-0 Yes [id number] 81mg Take 1 [facility] mg chewable 9-13 tablet by [facility] of tablet 00:00: mouth [place] 00 daily. [facility] amoxicillin 2020-0 Yes [id number] 1{tbl} Take 1 [facility] -clavulanat 9-13 tablet by [facility] of e 00:00: mouth 2 [place] (AUGMENTIN) 00 (two) Medical 875-125 mg times Branch per tablet daily. atorvastati 2020-0 Yes [id number] 20mg Take 1 [facility] n 20 mg 9-13 tablet by [facility] tablet 00:00: mouth at [place] 00 bedtime. [facility] carvediloL 2020-0 Yes [id number] 12.5mg Take 1 [facility] 12.5 mg 9-13 tablet by [facility] tablet 00:00: mouth 2 [place] (two) Medical times Branch daily with meals. aspirin 81 2020-0 Yes [id number] 81mg Take 1 [facility] mg chewable 9-13 tablet by [facility] tablet 00:00: mouth [place] 00 daily. [facility] amoxicillin 2020-0 Yes [id number] 1{tbl} Take 1 [facility] -clavulanat 9-13 tablet by [facility] of e 00:00: mouth 2 [place] (AUGMENTIN) 00 (two) Medical 875-125 mg times Branch per tablet daily. atorvastati 2020-0 Yes [id number] 20mg Take 1 [facility] n 20 mg 9-13 tablet by [facility] of tablet 00:00: mouth at [place] 00 bedtime. [facility] carvediloL 2020-0 Yes [id number] 12.5mg Take 1 [facility] 12.5 mg 9-13 tablet by [facility] tablet 00:00: mouth 2 [place] 00 (two) Medical times Branch daily with meals. aspirin 81 2020-0 Yes [id number] 81mg Take 1 [facility] mg chewable 9-13 tablet by [facility] of tablet 00:00: mouth [place] 00 daily. [facility] amoxicillin 2020-0 Yes [id number] 1{tbl} Take 1 [facility] -clavulanat 9-13 tablet by [facility] of e 00:00: mouth 2 [place] (AUGMENTIN) 00 (two) Medical 875-125 mg times Branch per tablet daily. atorvastati 2020-0 Yes [id number] 20mg Take 1 [facility] n 20 mg 9-13 tablet by [facility] of tablet 00:00: mouth at [place] 00 bedtime. [facility] carvediloL 2020-0 Yes [id number] 12.5mg Take 1 [facility] 12.5 mg 9-13 tablet by [facility] tablet 00:00: mouth 2 (two) Medical times Branch daily with meals. aspirin 81 2020-0 Yes [id number] 81mg Take 1 [facility] mg chewable 9-13 tablet by [facility] tablet 00:00: mouth [place] 00 daily. [facility] amoxicillin 2020-0 Yes [id number] 1{tbl} Take 1 [facility] -clavulanat 9-13 tablet by [facility] of e 00:00: mouth 2 [place] (AUGMENTIN) 00 (two) Medical 875-125 mg times Branch per tablet daily. atorvastati 2020-0 Yes [id number] 20mg Take 1 [facility] n 20 mg 9-13 tablet by [facility] tablet 00:00: mouth at [place] 00 bedtime. [facility] carvediloL 2020-0 Yes [id number] 12.5mg Take 1 [facility] 12.5 mg 9-13 tablet by [facility] tablet 00:00: mouth 2 (two) Medical times Branch daily with meals. aspirin 81 2020-0 Yes [id number] 81mg Take 1 [facility] mg chewable 9-13 tablet by [facility] of tablet 00:00: mouth [place] 00 daily. [facility] amoxicillin 2020-0 Yes [id number] 1{tbl} Take 1 [facility] -clavulanat 9-13 tablet by [facility] of e 00:00: mouth 2 [place] (AUGMENTIN) 00 (two) Medical 875-125 mg times Branch per tablet daily. atorvastati 2020-0 Yes [id number] 20mg Take 1 [facility] n 20 mg 9-13 tablet by [facility] of tablet 00:00: mouth at [place] 00 bedtime. [facility] carvediloL 2020-0 Yes [id number] 12.5mg Take 1 [facility] 12.5 mg 9-13 tablet by [facility] of tablet 00:00: mouth 2 00 (two) Medical times Branch daily with meals. aspirin 81 2020-0 Yes [id number] 81mg Take 1 [facility] mg chewable 9-13 tablet by [facility] of tablet 00:00: mouth [place] 00 daily. [facility] amoxicillin 2020-0 Yes [id number] 1{tbl} Take 1 [facility] -clavulanat 9-13 tablet by [facility] of e 00:00: mouth 2 (AUGMENTIN) 00 (two) Medical 875-125 mg times Branch per tablet daily. atorvastati 2020-0 Yes [id number] 20mg Take 1 [facility] n 20 mg 9-13 tablet by [facility] of tablet 00:00: mouth at [place] 00 bedtime. [facility] carvediloL 2020-0 Yes [id number] 12.5mg Take 1 [facility] 12.5 mg 9-13 tablet by [facility] of tablet 00:00: mouth 2 (two) Medical times Branch daily with meals. aspirin 81 2020-0 Yes [id number] 81mg Take 1 [facility] mg chewable 9-13 tablet by [facility] of tablet 00:00: mouth [place] 00 daily. [facility] amoxicillin 2020-0 Yes [id number] 1{tbl} Take 1 [facility] -clavulanat 9-13 tablet by [facility] of e 00:00: mouth 2 [place] (AUGMENTIN) 00 (two) Medical 875-125 mg times Branch per tablet daily. atorvastati 2020-0 Yes [id number] 20mg Take 1 [facility] n 20 mg 9-13 tablet by [facility] of tablet 00:00: mouth at [place] 00 bedtime. [facility] carvediloL 2020-0 Yes [id number] 12.5mg Take 1 [facility] 12.5 mg 9-13 tablet by [facility] of tablet 00:00: mouth 2 00 (two) Medical times Branch daily with meals. aspirin 81 2020-0 Yes [id number] 81mg Take 1 [facility] mg chewable 9-13 tablet by [facility] of tablet 00:00: mouth [place] 00 daily. [facility] atorvastati 2020-0 Yes [id number] 20mg Take 1 [facility] n 20 mg 9-13 tablet by [facility] of tablet 00:00: mouth at [place] 00 bedtime. [facility] carvediloL 2020-0 Yes [id number] 12.5mg Take 1 [facility] 12.5 mg 9-13 tablet by [facility] of tablet 00:00: mouth 2 (two) Medical times Branch daily with meals. aspirin 81 2020-0 Yes [id number] 81mg Take 1 [facility] mg chewable 9-13 tablet by [facility] of tablet 00:00: mouth 00 daily. [facility] Branch atorvastati 2020-0 Yes [id number] 20mg Take 1 [facility] n 20 mg 9-13 tablet by [facility] of tablet 00:00: mouth at [place] 00 bedtime. [facility] carvediloL 2020-0 Yes [id number] 12.5mg Take 1 [facility] 12.5 mg 9-13 tablet by [facility] of tablet 00:00: mouth 2 (two) Medical times Branch daily with meals. aspirin 81 2019-0 Yes [id number] 81mg Take 1 [facility] mg chewable 9-13 tablet by [facility] of tablet 00:00: mouth 00 daily. [facility] Branch atorvastati 2019-0 Yes [id number] 20mg Take 1 [facility] n 20 mg 9-13 tablet by [facility] of tablet 00:00: mouth at [place] 00 bedtime. [facility] carvediloL 2020-0 Yes [id number] 12.5mg Take 1 [facility] 12.5 mg 9-13 tablet by [facility] of tablet 00:00: mouth 2 (two) Medical times Branch daily with meals. aspirin 81 2019-0 Yes [id number] 81mg Take 1 [facility] mg chewable 9-13 tablet by [facility] of tablet 00:00: mouth 00 daily. [facility] atorvastati 2020-0 Yes [id number] 20mg Take 1 [facility] n 20 mg 9-13 tablet by [facility] of tablet 00:00: mouth at [place] 00 bedtime. [facility] carvediloL 2020-0 Yes [id number] 12.5mg Take 1 [facility] 12.5 mg 9-13 tablet by [facility] of tablet 00:00: mouth 2 (two) Medical times Branch daily with meals. aspirin 81 2020-0 Yes [id number] 81mg Take 1 [facility] mg chewable 9-13 tablet by [facility] of tablet 00:00: mouth 00 daily. [facility] HYDROcodone 2020-0 Yes [id number] 1{tbl} Take 1 [facility] d[facility] -acetaminop 9-13 tablet by [facility] hen (NORCO) 00:00: mouth [place] 5-325 mg 00 every 6 Medical tablet (six) Branch hours as needed for Pain (scale 7-10). Indication s: acute pain amoxicillin 2020-0 Yes [id number] 1{tbl} Take 1 [facility] -clavulanat 9-13 tablet by [facility] of e 00:00: mouth 2 [place] (AUGMENTIN) 00 (two) Medical 875-125 mg times Branch per tablet daily. atorvastati 2020-0 Yes [id number] 20mg Take 1 [facility] n 20 mg 9-13 tablet by [facility] of tablet 00:00: mouth at [place] 00 bedtime. Medical [facility] carvediloL 2020-0 Yes [id number] 12.5mg Take 1 [facility] 12.5 mg 9-13 tablet by [facility] of tablet 00:00: mouth 2 [place] 00 (two) Medical times Branch daily with meals. aspirin 81 2020-0 Yes [id number] 81mg Take 1 [facility] mg chewable 9-13 tablet by [facility] of tablet 00:00: mouth [place] 00 daily. [facility] HYDROcodone 2020-0 Yes [id number] 1{tbl} Take 1 [facility] davy -acetaminop 9-13 tablet by [facility] of hen (NORCO) 00:00: mouth [place] 5-325 mg 00 every 6 Medical tablet (six) Branch hours as needed for Pain (scale 7-10). Indication s: acute pain amoxicillin 2020-0 Yes [id number] 1{tbl} Take 1 [facility] -clavulanat 9-13 tablet by [facility] of e 00:00: mouth 2 (AUGMENTIN) 00 (two) Medical 875-125 mg times Branch per tablet daily. atorvastati 2020-0 Yes [id number] 20mg Take 1 [facility] n 20 mg 9-13 tablet by [facility] of tablet 00:00: mouth at [place] 00 bedtime. Medical [facility] carvediloL 2020-0 Yes [id number] 12.5mg Take 1 [facility] 12.5 mg 9-13 tablet by [facility] of tablet 00:00: mouth 2 [place] 00 (two) Medical times Branch daily with meals. amoxicillin 2020-0 Yes [id number] 1{tbl} Take 1 [facility] -clavulanat 9-13 tablet by [facility] of e 00:00: mouth 2 (AUGMENTIN) 00 (two) Medical 875-125 mg times Branch per tablet daily. aspirin 81 2020-0 Yes [id number] 81mg Take 1 [facility] mg chewable 9-13 tablet by [facility] of tablet 00:00: mouth [place] 00 daily. [facility] amoxicillin 2020-0 Yes [id number] 1{tbl} Take 1 [facility] -clavulanat 9-13 tablet by [facility] of e 00:00: mouth 2 [place] (AUGMENTIN) 00 (two) Medical 875-125 mg times Branch per tablet daily. atorvastati 2020-0 Yes [id number] 20mg Take 1 [facility] n 20 mg 9-13 tablet by [facility] of tablet 00:00: mouth at [place] 00 bedtime. Medical Branch atorvastati 2020-0 Yes [id number] 20mg Take 1 [facility] n 20 mg 9-13 tablet by [facility] of tablet 00:00: mouth at [place] 00 bedtime. [facility] carvediloL 2020-0 Yes [id number] 12.5mg Take 1 [facility] 12.5 mg 9-13 tablet by [facility] of tablet 00:00: mouth 2 [place] 00 (two) Medical times Branch daily with meals. aspirin 81 2020-0 Yes [id number] 81mg Take 1 [facility] mg chewable 9-13 tablet by [facility] of tablet 00:00: mouth [place] 00 daily. [facility] carvediloL 2020-0 Yes [id number] 12.5mg Take 1 [facility] 12.5 mg 9-13 tablet by [facility] of tablet 00:00: mouth 2 [place] 00 (two) Medical times Branch daily with meals. aspirin 81 2020-0 Yes [id number] 81mg Take 1 [facility] mg chewable 9-13 tablet by [facility] of tablet 00:00: mouth [place] 00 daily. [facility] amoxicillin 2020-0 Yes [id number] 1{tbl} Take 1 [facility] -clavulanat 9-13 tablet by [facility] of e 00:00: mouth 2 [place] (AUGMENTIN) 00 (two) Medical 875-125 mg times Branch per tablet daily. atorvastati 2020-0 Yes [id number] 20mg Take 1 [facility] n 20 mg 9-13 tablet by [facility] of tablet 00:00: mouth at [place] 00 bedtime. Medical [facility] carvediloL 2020-0 Yes [id number] 12.5mg Take 1 [facility] 12.5 mg 9-13 tablet by [facility] of tablet 00:00: mouth 2 (two) Medical times Branch daily with meals. aspirin 81 2020-0 Yes [id number] 81mg Take 1 [facility] mg chewable 9-13 tablet by [facility] of tablet 00:00: mouth [place] 00 daily. [facility] amoxicillin 2020-0 Yes [id number] 1{tbl} Take 1 [facility] -clavulanat 9-13 tablet by [facility] of e 00:00: mouth 2 (AUGMENTIN) 00 (two) Medical 875-125 mg times Branch per tablet daily. atorvastati 2020-0 Yes [id number] 20mg Take 1 [facility] n 20 mg 9-13 tablet by [facility] of tablet 00:00: mouth at [place] 00 bedtime. [facility] carvediloL 2020-0 Yes [id number] 12.5mg Take 1 [facility] 12.5 mg 9-13 tablet by [facility] of tablet 00:00: mouth 2 (two) Medical times Branch daily with meals. aspirin 81 2020-0 Yes [id number] 81mg Take 1 [facility] mg chewable 9-13 tablet by [facility] of tablet 00:00: mouth [place] 00 daily. [facility] amoxicillin 2020-0 Yes [id number] 1{tbl} Take 1 [facility] -clavulanat 9-13 tablet by [facility] of e 00:00: mouth 2 [place] (AUGMENTIN) 00 (two) Medical 875-125 mg times Branch per tablet daily. atorvastati 2020-0 Yes [id number] 20mg Take 1 [facility] n 20 mg 9-13 tablet by [facility] of tablet 00:00: mouth at [place] 00 bedtime. [facility] carvediloL 2020-0 Yes [id number] 12.5mg Take 1 [facility] 12.5 mg 9-13 tablet by [facility] of tablet 00:00: mouth 2 (two) Medical times Branch daily with meals. aspirin 81 2020-0 Yes [id number] 81mg Take 1 [facility] mg chewable 9-13 tablet by [facility] of tablet 00:00: mouth [place] 00 daily. [facility] amoxicillin 2020-0 Yes [id number] 1{tbl} Take 1 [facility] -clavulanat 9-13 tablet by [facility] of e 00:00: mouth 2 (AUGMENTIN) 00 (two) Medical 875-125 mg times Branch per tablet daily. atorvastati 2020-0 Yes [id number] 20mg Take 1 [facility] n 20 mg 9-13 tablet by [facility] of tablet 00:00: mouth at [place] 00 bedtime. [facility] carvediloL 2020-0 Yes [id number] 12.5mg Take 1 [facility] 12.5 mg 9-13 tablet by [facility] of tablet 00:00: mouth 2 (two) Medical times Branch daily with meals. aspirin 81 2020-0 Yes [id number] 81mg Take 1 [facility] mg chewable 9-13 tablet by [facility] of tablet 00:00: mouth [place] 00 daily. [facility] amoxicillin 2020-0 Yes [id number] 1{tbl} Take 1 [facility] -clavulanat 9-13 tablet by [facility] of e 00:00: mouth 2 (AUGMENTIN) 00 (two) Medical 875-125 mg times Branch per tablet daily. atorvastati 2020-0 Yes [id number] 20mg Take 1 [facility] n 20 mg 9-13 tablet by [facility] of tablet 00:00: mouth at [place] 00 bedtime. Medical [facility] carvediloL 2020-0 Yes [id number] 12.5mg Take 1 [facility] 12.5 mg 9-13 tablet by [facility] of tablet 00:00: mouth 2 (two) Medical times Branch daily with meals. aspirin 81 2020-0 Yes [id number] 81mg Take 1 [facility] mg chewable 9-13 tablet by [facility] of tablet 00:00: mouth [place] 00 daily. [facility] amoxicillin 2020-0 Yes [id number] 1{tbl} Take 1 [facility] -clavulanat 9-13 tablet by [facility] of e 00:00: mouth 2 [place] (AUGMENTIN) 00 (two) Medical 875-125 mg times Branch per tablet daily. atorvastati 2020-0 Yes [id number] 20mg Take 1 [facility] n 20 mg 9-13 tablet by [facility] of tablet 00:00: mouth at [place] 00 bedtime. [facility] carvediloL 2020-0 Yes [id number] 12.5mg Take 1 [facility] 12.5 mg 9-13 tablet by [facility] of tablet 00:00: mouth 2 [place] 00 (two) Medical times Branch daily with meals. aspirin 81 2020-0 Yes [id number] 81mg Take 1 [facility] mg chewable 9-13 tablet by [facility] of tablet 00:00: mouth [place] 00 daily. [facility] amoxicillin 2020-0 Yes [id number] 1{tbl} Take 1 [facility] -clavulanat 9-13 tablet by [facility] of e 00:00: mouth 2 [place] (AUGMENTIN) 00 (two) Medical 875-125 mg times Branch per tablet daily. atorvastati 2020-0 Yes [id number] 20mg Take 1 [facility] n 20 mg 9-13 tablet by [facility] of tablet 00:00: mouth at [place] 00 bedtime. Medical [facility] carvediloL 2020-0 Yes [id number] 12.5mg Take 1 [facility] 12.5 mg 9-13 tablet by [facility] of tablet 00:00: mouth 2 [place] 00 (two) Medical times Branch daily with meals. aspirin 81 2020-0 Yes [id number] 81mg Take 1 [facility] mg chewable 9-13 tablet by [facility] of tablet 00:00: mouth [place] 00 daily. [facility] amoxicillin 2020-0 Yes [id number] 1{tbl} Take 1 [facility] -clavulanat 9-13 tablet by [facility] of e 00:00: mouth 2 [place] (AUGMENTIN) 00 (two) Medical 875-125 mg times Branch per tablet daily. atorvastati 2020-0 Yes [id number] 20mg Take 1 [facility] n 20 mg 9-13 tablet by [facility] of tablet 00:00: mouth at [place] 00 bedtime. Medical [facility] carvediloL 2020-0 Yes [id number] 12.5mg Take 1 [facility] 12.5 mg 9-13 tablet by [facility] of tablet 00:00: mouth 2 [place] (two) Medical times Branch daily with meals. aspirin 81 2020-0 Yes [id number] 81mg Take 1 [facility] mg chewable 9-13 tablet by [facility] of tablet 00:00: mouth [place] 00 daily. [facility] amoxicillin 2020-0 Yes [id number] 1{tbl} Take 1 [facility] -clavulanat 9-13 tablet by [facility] of e 00:00: mouth 2 [place] (AUGMENTIN) 00 (two) Medical 875-125 mg times Branch per tablet daily. atorvastati 2020-0 Yes [id number] 20mg Take 1 [facility] n 20 mg 9-13 tablet by [facility] of tablet 00:00: mouth at [place] 00 bedtime. Medical [facility] carvediloL 2020-0 Yes [id number] 12.5mg Take 1 [facility] 12.5 mg 9-13 tablet by [facility] of tablet 00:00: mouth 2 [place] 00 (two) Medical times Branch daily with meals. aspirin 81 2020-0 Yes [id number] 81mg Take 1 [facility] mg chewable 9-13 tablet by [facility] of tablet 00:00: mouth [place] 00 daily. [facility] amoxicillin 2020-0 Yes [id number] 1{tbl} Take 1 [facility] -clavulanat 9-13 tablet by [facility] of e 00:00: mouth 2 (AUGMENTIN) 00 (two) Medical 875-125 mg times Branch per tablet daily. atorvastati 2020-0 Yes [id number] 20mg Take 1 [facility] n 20 mg 9-13 tablet by [facility] of tablet 00:00: mouth at [place] 00 bedtime. Medical [facility] carvediloL 2020-0 Yes [id number] 12.5mg Take 1 [facility] 12.5 mg 9-13 tablet by [facility] of tablet 00:00: mouth 2 (two) Medical times Branch daily with meals. aspirin 81 2020-0 Yes [id number] 81mg Take 1 [facility] mg chewable 9-13 tablet by [facility] of tablet 00:00: mouth 00 daily. [facility] amoxicillin 2020-0 Yes [id number] 1{tbl} Take 1 [facility] -clavulanat 9-13 tablet by [facility] of e 00:00: mouth 2 [place] (AUGMENTIN) 00 (two) Medical 875-125 mg times Branch per tablet daily. atorvastati 2020-0 Yes [id number] 20mg Take 1 [facility] n 20 mg 9-13 tablet by [facility] of tablet 00:00: mouth at [place] 00 bedtime. Medical [facility] carvediloL 2020-0 Yes [id number] 12.5mg Take 1 [facility] 12.5 mg 9-13 tablet by [facility] of tablet 00:00: mouth 2 (two) Medical times Branch daily with meals. aspirin 81 2020-0 Yes [id number] 81mg Take 1 [facility] mg chewable 9-13 tablet by [facility] of tablet 00:00: mouth [place] 00 daily. [facility] amoxicillin 2020-0 Yes [id number] 1{tbl} Take 1 [facility] -clavulanat 9-13 tablet by [facility] of e 00:00: mouth 2 (AUGMENTIN) 00 (two) Medical 875-125 mg times Branch per tablet daily. atorvastati 2020-0 Yes [id number] 20mg Take 1 [facility] n 20 mg 9-13 tablet by [facility] of tablet 00:00: mouth at [place] 00 bedtime. Medical [facility] carvediloL 2020-0 Yes [id number] 12.5mg Take 1 [facility] 12.5 mg 9-13 tablet by [facility] of tablet 00:00: mouth 2 (two) Medical times Branch daily with meals. aspirin 81 2020-0 Yes [id number] 81mg Take 1 [facility] mg chewable 9-13 tablet by [facility] of tablet 00:00: mouth [place] 00 daily. [facility] Branch amoxicillin 2020-0 Yes [id number] 1{tbl} Take 1 [facility] -clavulanat 9-13 tablet by [facility] of e 00:00: mouth 2 (AUGMENTIN) 00 (two) Medical 875-125 mg times Branch per tablet daily. atorvastati 2020-0 Yes [id number] 20mg Take 1 [facility] n 20 mg 9-13 tablet by [facility] of tablet 00:00: mouth at [place] 00 bedtime. Medical [facility] carvediloL 2020-0 Yes [id number] 12.5mg Take 1 [facility] 12.5 mg 9-13 tablet by [facility] of tablet 00:00: mouth 2 (two) Medical times Branch daily with meals. aspirin 81 2020-0 Yes [id number] 81mg Take 1 [facility] mg chewable 9-13 tablet by [facility] of tablet 00:00: mouth [place] 00 daily. [facility] amoxicillin 2020-0 Yes [id number] 1{tbl} Take 1 [facility] -clavulanat 9-13 tablet by [facility] of e 00:00: mouth 2 [place] (AUGMENTIN) 00 (two) Medical 875-125 mg times Branch per tablet daily. atorvastati 2020-0 Yes [id number] 20mg Take 1 [facility] n 20 mg 9-13 tablet by [facility] of tablet 00:00: mouth at [place] 00 bedtime. Medical [facility] carvediloL 2020-0 Yes [id number] 12.5mg Take 1 [facility] 12.5 mg 9-13 tablet by [facility] of tablet 00:00: mouth 2 00 (two) Medical times Branch daily with meals. aspirin 81 2020-0 Yes [id number] 81mg Take 1 [facility] mg chewable 9-13 tablet by [facility] of tablet 00:00: mouth [place] 00 daily. [facility] amoxicillin 2020-0 Yes [id number] 1{tbl} Take 1 [facility] -clavulanat 9-13 tablet by [facility] of e 00:00: mouth 2 [place] (AUGMENTIN) 00 (two) Medical 875-125 mg times Branch per tablet daily. atorvastati 2020-0 Yes [id number] 20mg Take 1 [facility] n 20 mg 9-13 tablet by [facility] of tablet 00:00: mouth at [place] 00 bedtime. Medical [facility] carvediloL 2020-0 Yes [id number] 12.5mg Take 1 [facility] 12.5 mg 9-13 tablet by [facility] of tablet 00:00: mouth 2 [place] 00 (two) Medical times Branch daily with meals. aspirin 81 2020-0 Yes [id number] 81mg Take 1 [facility] mg chewable 9-13 tablet by ity of tablet 00:00: mouth [place] 00 daily. Medical Branch amoxicillin 2020-0 Yes [id number] 1{tbl} Take 1 [facility] -clavulanat 9-13 tablet by ity of e 00:00: mouth 2 [place] (AUGMENTIN) 00 (two) Medical 875-125 mg times Branch per tablet daily. atorvastati 2020-0 Yes [id number] 20mg Take 1 [facility] n 20 mg 9-13 tablet by ity of tablet 00:00: mouth at [place] 00 bedtime. Medical Branch carvediloL 2020-0 Yes [id number] 12.5mg Take 1 [facility] 12.5 mg 9-13 tablet by ity of tablet 00:00: mouth 2 (two) Medical times Branch daily with meals. aspirin 81 2020-0 Yes [id number] 81mg Take 1 [facility] mg chewable 9-13 tablet by ity of tablet 00:00: mouth [place] 00 daily. Medical Branch amoxicillin 2020-0 Yes [id number] 1{tbl} Take 1 [facility] -clavulanat 9-13 tablet by ity of e 00:00: mouth 2 [place] (AUGMENTIN) 00 (two) Medical 875-125 mg times Branch per tablet daily. atorvastati 2020-0 Yes [id number] 20mg Take 1 [facility] n 20 mg 9-13 tablet by ity of tablet 00:00: mouth at [place] 00 bedtime. Medical Branch carvediloL 2020-0 Yes [id number] 12.5mg Take 1 [facility] 12.5 mg 9-13 tablet by ity of tablet 00:00: mouth 2 [place] 00 (two) Medical times Branch daily with meals. aspirin 81 2020-0 Yes [id number] 81mg Take 1 [facility] mg chewable 9-13 tablet by ity of tablet 00:00: mouth [place] 00 daily. Medical Branch amoxicillin 2020-0 Yes [id number] 1{tbl} Take 1 [facility] -clavulanat 9-13 tablet by ity of e 00:00: mouth 2 (AUGMENTIN) 00 (two) Medical 875-125 mg times Branch per tablet daily. atorvastati 2020-0 Yes [id number] 20mg Take 1 [facility] n 20 mg 9-13 tablet by ity of tablet 00:00: mouth at [place] 00 bedtime. Medical Branch carvediloL 2020-0 Yes [id number] 12.5mg Take 1 [facility] 12.5 mg 9-13 tablet by ity of tablet 00:00: mouth 2 (two) Medical times Branch daily with meals. aspirin 81 2020-0 Yes [id number] 81mg Take 1 [facility] mg chewable 9-13 tablet by ity of tablet 00:00: mouth 00 daily. Medical Branch amoxicillin 2020-0 Yes [id number] 1{tbl} Take 1 [facility] -clavulanat 9-13 tablet by ity of e 00:00: mouth 2 [place] (AUGMENTIN) 00 (two) Medical 875-125 mg times Branch per tablet daily. atorvastati 2020-0 Yes [id number] 20mg Take 1 [facility] n 20 mg 9-13 tablet by ity of tablet 00:00: mouth at [place] 00 bedtime. Medical Branch carvediloL 2020-0 Yes [id number] 12.5mg Take 1 [facility] 12.5 mg 9-13 tablet by ity of tablet 00:00: mouth 2 (two) Medical times Branch daily with meals. aspirin 81 2020-0 Yes [id number] 81mg Take 1 [facility] mg chewable 9-13 tablet by ity of tablet 00:00: mouth [place] 00 daily. Medical Branch amoxicillin 2020-0 Yes [id number] 1{tbl} Take 1 [facility] -clavulanat 9-13 tablet by ity of e 00:00: mouth 2 (AUGMENTIN) 00 (two) Medical 875-125 mg times Branch per tablet daily. atorvastati 2020-0 Yes [id number] 20mg Take 1 [facility] n 20 mg 9-13 tablet by ity of tablet 00:00: mouth at [place] 00 bedtime. Medical Branch carvediloL 2020-0 Yes [id number] 12.5mg Take 1 [facility] 12.5 mg 9-13 tablet by ity of tablet 00:00: mouth 2 (two) Medical times Branch daily with meals. aspirin 81 2020-0 Yes [id number] 81mg Take 1 [facility] mg chewable 9-13 tablet by ity of tablet 00:00: mouth [place] 00 daily. Medical Branch amoxicillin 2020-0 Yes [id number] 1{tbl} Take 1 [facility] -clavulanat 9-13 tablet by ity of e 00:00: mouth 2 [place] (AUGMENTIN) 00 (two) Medical 875-125 mg times Branch per tablet daily. atorvastati 2020-0 Yes [id number] 20mg Take 1 [facility] n 20 mg 9-13 tablet by ity of tablet 00:00: mouth at [place] 00 bedtime. Medical Branch carvediloL 2020-0 Yes [id number] 12.5mg Take 1 [facility] 12.5 mg 9-13 tablet by ity of tablet 00:00: mouth 2 (two) Medical times Branch daily with meals. aspirin 81 2020-0 Yes [id number] 81mg Take 1 [facility] mg chewable 9-13 tablet by ity of tablet 00:00: mouth [place] 00 daily. Medical Branch amoxicillin 2020-0 Yes [id number] 1{tbl} Take 1 [facility] -clavulanat 9-13 tablet by ity of e 00:00: mouth 2 [place] (AUGMENTIN) 00 (two) Medical 875-125 mg times Branch per tablet daily. atorvastati 2020-0 Yes [id number] 20mg Take 1 [facility] n 20 mg 9-13 tablet by ity of tablet 00:00: mouth at [place] 00 bedtime. Medical Branch carvediloL 2020-0 Yes [id number] 12.5mg Take 1 [facility] 12.5 mg 9-13 tablet by ity of tablet 00:00: mouth 2 00 (two) Medical times Branch daily with meals. aspirin 81 2020-0 Yes [id number] 81mg Take 1 [facility] mg chewable 9-13 tablet by ity of tablet 00:00: mouth [place] 00 daily. Medical Branch amoxicillin 2020-0 Yes [id number] 1{tbl} Take 1 [facility] -clavulanat 9-13 tablet by ity of e 00:00: mouth 2 [place] (AUGMENTIN) 00 (two) Medical 875-125 mg times Branch per tablet daily. atorvastati 2020-0 Yes [id number] 20mg Take 1 [facility] n 20 mg 9-13 tablet by ity of tablet 00:00: mouth at [place] 00 bedtime. Medical Branch carvediloL 2020-0 Yes [id number] 12.5mg Take 1 [facility] 12.5 mg 9-13 tablet by ity of tablet 00:00: mouth 2 [place] 00 (two) Medical times Branch daily with meals. aspirin 81 2020-0 Yes [id number] 81mg Take 1 [facility] mg chewable 9-13 tablet by ity of tablet 00:00: mouth [place] 00 daily. Medical Branch amoxicillin 2020-0 Yes [id number] 1{tbl} Take 1 [facility] -clavulanat 9-13 tablet by ity of e 00:00: mouth 2 [place] (AUGMENTIN) 00 (two) Medical 875-125 mg times Branch per tablet daily. atorvastati 2020-0 Yes [id number] 20mg Take 1 [facility] n 20 mg 9-13 tablet by ity of tablet 00:00: mouth at [place] 00 bedtime. Medical Branch carvediloL 2020-0 Yes [id number] 12.5mg Take 1 [facility] 12.5 mg 9-13 tablet by ity of tablet 00:00: mouth 2 (two) Medical times Branch daily with meals. aspirin 81 2020-0 Yes [id number] 81mg Take 1 [facility] mg chewable 9-13 tablet by ity of tablet 00:00: mouth [place] 00 daily. Medical Branch amoxicillin 2020-0 Yes [id number] 1{tbl} Take 1 [facility] -clavulanat 9-13 tablet by ity of e 00:00: mouth 2 [place] (AUGMENTIN) 00 (two) Medical 875-125 mg times Branch per tablet daily. atorvastati 2020-0 Yes [id number] 20mg Take 1 [facility] n 20 mg 9-13 tablet by ity of tablet 00:00: mouth at [place] 00 bedtime. Medical Branch carvediloL 2020-0 Yes [id number] 12.5mg Take 1 [facility] 12.5 mg 9-13 tablet by ity of tablet 00:00: mouth 2 00 (two) Medical times Branch daily with meals. aspirin 81 2020-0 Yes [id number] 81mg Take 1 [facility] mg chewable 9-13 tablet by ity of tablet 00:00: mouth [place] 00 daily. Medical Branch amoxicillin 2020-0 Yes [id number] 1{tbl} Take 1 [facility] -clavulanat 9-13 tablet by ity of e 00:00: mouth 2 [place] (AUGMENTIN) 00 (two) Medical 875-125 mg times Branch per tablet daily. atorvastati 2020-0 Yes [id number] 20mg Take 1 [facility] n 20 mg 9-13 tablet by ity of tablet 00:00: mouth at [place] 00 bedtime. Medical Branch carvediloL 2020-0 Yes [id number] 12.5mg Take 1 [facility] 12.5 mg 9-13 tablet by ity of tablet 00:00: mouth 2 (two) Medical times Branch daily with meals. aspirin 81 2020-0 Yes [id number] 81mg Take 1 [facility] mg chewable 9-13 tablet by ity of tablet 00:00: mouth [place] 00 daily. Medical Branch amoxicillin 2020-0 Yes [id number] 1{tbl} Take 1 [facility] -clavulanat 9-13 tablet by ity of e 00:00: mouth 2 (AUGMENTIN) 00 (two) Medical 875-125 mg times Branch per tablet daily. atorvastati 2020-0 Yes [id number] 20mg Take 1 [facility] n 20 mg 9-13 tablet by ity of tablet 00:00: mouth at [place] 00 bedtime. Medical Branch carvediloL 2020-0 Yes [id number] 12.5mg Take 1 [facility] 12.5 mg 9-13 tablet by ity of tablet 00:00: mouth 2 00 (two) Medical times Branch daily with meals. aspirin 81 2020-0 Yes [id number] 81mg Take 1 [facility] mg chewable 9-13 tablet by ity of tablet 00:00: mouth [place] 00 daily. Medical Branch amoxicillin 2020-0 Yes [id number] 1{tbl} Take 1 [facility] -clavulanat 9-13 tablet by ity of e 00:00: mouth 2 [place] (AUGMENTIN) 00 (two) Medical 875-125 mg times Branch per tablet daily. atorvastati 2020-0 Yes [id number] 20mg Take 1 [facility] n 20 mg 9-13 tablet by ity of tablet 00:00: mouth at [place] 00 bedtime. Medical Branch carvediloL 2020-0 Yes [id number] 12.5mg Take 1 [facility] 12.5 mg 9-13 tablet by ity of tablet 00:00: mouth 2 (two) Medical times Branch daily with meals. aspirin 81 2020-0 Yes [id number] 81mg Take 1 [facility] mg chewable 9-13 tablet by ity of tablet 00:00: mouth [place] 00 daily. Medical Branch amoxicillin 2020-0 Yes [id number] 1{tbl} Take 1 [facility] -clavulanat 9-13 tablet by ity of e 00:00: mouth 2 [place] (AUGMENTIN) 00 (two) Medical 875-125 mg times Branch per tablet daily. atorvastati 2020-0 Yes [id number] 20mg Take 1 [facility] n 20 mg 9-13 tablet by ity of tablet 00:00: mouth at [place] 00 bedtime. Medical Branch carvediloL 2020-0 Yes [id number] 12.5mg Take 1 [facility] 12.5 mg 9-13 tablet by ity of tablet 00:00: mouth 2 (two) Medical times Branch daily with meals. aspirin 81 2020-0 Yes [id number] 81mg Take 1 [facility] mg chewable 9-13 tablet by ity of tablet 00:00: mouth [place] 00 daily. Medical Branch amoxicillin 2020-0 Yes [id number] 1{tbl} Take 1 [facility] -clavulanat 9-13 tablet by ity of e 00:00: mouth 2 [place] (AUGMENTIN) 00 (two) Medical 875-125 mg times Branch per tablet daily. atorvastati 2020-0 Yes [id number] 20mg Take 1 [facility] n 20 mg 9-13 tablet by ity of tablet 00:00: mouth at [place] 00 bedtime. Medical Branch carvediloL 2020-0 Yes [id number] 12.5mg Take 1 [facility] 12.5 mg 9-13 tablet by ity of tablet 00:00: mouth 2 [place] (two) Medical times Branch daily with meals. aspirin 81 2020-0 Yes [id number] 81mg Take 1 [facility] mg chewable 9-13 tablet by ity of tablet 00:00: mouth [place] 00 daily. Medical Branch amoxicillin 2020-0 Yes [id number] 1{tbl} Take 1 [facility] -clavulanat 9-13 tablet by ity of e 00:00: mouth 2 [place] (AUGMENTIN) 00 (two) Medical 875-125 mg times Branch per tablet daily. atorvastati 2020-0 Yes [id number] 20mg Take 1 [facility] n 20 mg 9-13 tablet by ity of tablet 00:00: mouth at [place] 00 bedtime. Medical Branch carvediloL 2020-0 Yes [id number] 12.5mg Take 1 [facility] 12.5 mg 9-13 tablet by ity of tablet 00:00: mouth 2 00 (two) Medical times Branch daily with meals. aspirin 81 2020-0 Yes [id number] 81mg Take 1 [facility] mg chewable 9-13 tablet by ity of tablet 00:00: mouth [place] 00 daily. Medical Branch amoxicillin 2020-0 Yes [id number] 1{tbl} Take 1 [facility] -clavulanat 9-13 tablet by ity of e 00:00: mouth 2 [place] (AUGMENTIN) 00 (two) Medical 875-125 mg times Branch per tablet daily. atorvastati 2020-0 Yes [id number] 20mg Take 1 [facility] n 20 mg 9-13 tablet by ity of tablet 00:00: mouth at [place] 00 bedtime. Medical Branch carvediloL 2020-0 Yes [id number] 12.5mg Take 1 [facility] 12.5 mg 9-13 tablet by ity of tablet 00:00: mouth 2 [place] (two) Medical times Branch daily with meals. aspirin 81 2020-0 Yes [id number] 81mg Take 1 [facility] mg chewable 9-13 tablet by ity of tablet 00:00: mouth [place] 00 daily. Medical Branch amoxicillin 2020-0 Yes [id number] 1{tbl} Take 1 [facility] -clavulanat 9-13 tablet by ity of e 00:00: mouth 2 [place] (AUGMENTIN) 00 (two) Medical 875-125 mg times Branch per tablet daily. atorvastati 2020-0 Yes [id number] 20mg Take 1 [facility] n 20 mg 9-13 tablet by ity of tablet 00:00: mouth at [place] 00 bedtime. Medical Branch carvediloL 2020-0 Yes [id number] 12.5mg Take 1 [facility] 12.5 mg 9-13 tablet by ity of tablet 00:00: mouth 2 [place] 00 (two) Medical times Branch daily with meals. aspirin 81 2020-0 Yes [id number] 81mg Take 1 [facility] mg chewable 9-13 tablet by ity of tablet 00:00: mouth [place] 00 daily. Medical Branch amoxicillin 2020-0 Yes [id number] 1{tbl} Take 1 [facility] -clavulanat 9-13 tablet by ity of e 00:00: mouth 2 [place] (AUGMENTIN) 00 (two) Medical 875-125 mg times Branch per tablet daily. atorvastati 2020-0 Yes [id number] 20mg Take 1 [facility] n 20 mg 9-13 tablet by ity of tablet 00:00: mouth at [place] 00 bedtime. Medical Branch carvediloL 2020-0 Yes [id number] 12.5mg Take 1 [facility] 12.5 mg 9-13 tablet by ity of tablet 00:00: mouth 2 [place] 00 (two) Medical times Branch daily with meals. aspirin 81 2020-0 Yes [id number] 81mg Take 1 [facility] mg chewable 9-13 tablet by ity of tablet 00:00: mouth [place] 00 daily. Medical Branch amoxicillin 2020-0 Yes [id number] 1{tbl} Take 1 [facility] -clavulanat 9-13 tablet by ity of e 00:00: mouth 2 [place] (AUGMENTIN) 00 (two) Medical 875-125 mg times Branch per tablet daily. atorvastati 2020-0 Yes [id number] 20mg Take 1 [facility] n 20 mg 9-13 tablet by ity of tablet 00:00: mouth at [place] 00 bedtime. Medical Branch carvediloL 2020-0 Yes [id number] 12.5mg Take 1 [facility] 12.5 mg 9-13 tablet by ity of tablet 00:00: mouth 2 [place] 00 (two) Medical times Branch daily with meals. aspirin 81 2020-0 Yes [id number] 81mg Take 1 [facility] mg chewable 9-13 tablet by ity of tablet 00:00: mouth [place] 00 daily. Medical Branch amoxicillin 2020-0 Yes [id number] 1{tbl} Take 1 [facility] -clavulanat 9-13 tablet by ity of e 00:00: mouth 2 [place] (AUGMENTIN) 00 (two) Medical 875-125 mg times Branch per tablet daily. atorvastati 2020-0 Yes [id number] 20mg Take 1 [facility] n 20 mg 9-13 tablet by ity of tablet 00:00: mouth at [place] 00 bedtime. Medical Branch carvediloL 2020-0 Yes [id number] 12.5mg Take 1 [facility] 12.5 mg 9-13 tablet by ity of tablet 00:00: mouth 2 [place] 00 (two) Medical times Branch daily with meals. aspirin 81 2020-0 Yes [id number] 81mg Take 1 [facility] mg chewable 9-13 tablet by ity of tablet 00:00: mouth [place] 00 daily. Medical Branch amoxicillin 2020-0 Yes [id number] 1{tbl} Take 1 [facility] -clavulanat 9-13 tablet by ity of e 00:00: mouth 2 [place] (AUGMENTIN) 00 (two) Medical 875-125 mg times Branch per tablet daily. atorvastati 2020-0 Yes [id number] 20mg Take 1 [facility] n 20 mg 9-13 tablet by ity of tablet 00:00: mouth at [place] 00 bedtime. Medical Branch carvediloL 2019-0 Yes [id number] 12.5mg Take 1 [facility] 12.5 mg 9-13 tablet by ity of tablet 00:00: mouth 2 [place] (two) Medical times Branch daily with meals. aspirin 81 2020-0 Yes [id number] 81mg Take 1 [facility] mg chewable 9-13 tablet by ity of tablet 00:00: mouth [place] 00 daily. Medical Branch amoxicillin 2019-0 2021- No [id number] 1{tbl} Take 1 [facility] -clavulanat 9-13 12-15 tablet by it y of e 00:00: 00:00 mouth 2 [place] (AUGMENTIN) 00 :00 (two) Medical 875-125 mg times Branch per tablet daily. amoxicillin 2019-0 2021- No [id number] 1{tbl} Take 1 [facility] -clavulanat 9-13 12-15 tablet by it y of e 00:00: 00:00 mouth 2 [place] (AUGMENTIN) 00 :00 (two) Medical 875-125 mg times Branch per tablet daily. amoxicillin 2019-0 2021- No [id number] 1{tbl} Take 1 [facility] -clavulanat 9-13 12-15 tablet by it y of e 00:00: 00:00 mouth 2 [place] (AUGMENTIN) 00 :00 (two) Medical 875-125 mg times Branch per tablet daily. HYDROcodone 2019-0 2020- No [id number] 1{tbl} Take 1 U nivers -acetaminop -10 12- tablet by it y of hen (NORCO) 00:00: 00:00 mouth [place] 5-325 mg 00 :00 every 6 Medical tablet (six) Branch hours as needed for Pain (scale 7-10). Indication s: acute pain HYDROcodone 2019- 2020- No [id number] 1{tbl} Take 1 U nivers -acetaminop 12-10 tablet by it y of hen (NORCO) 00:00: 00:00 mouth [place] 5-325 mg 00 :00 every 6 Medical tablet (six) Branch hours as needed for Pain (scale 7-10). Indication s: acute pain amoxicillin 2019-0 Yes 1{tbl} 1 tablet, [facility] -clavulanat 12-06 Oral, ity of e 23:00: Q12H, [place] (AUGMENTIN) 00 First dose Me dical 875-125 mg on Thu Branch per tablet 12/07/19 at 1 tablet 1800, Until Discontinu ed, Routine
Reason for Anti-Infec tive: Documented Infection< br>Documen alex Infection Site: Skin / Soft Tissue<br& gt;Duratio n of Therapy: 14 days HYDROcodone 2019- Yes 1{tbl} 1 tablet, [facility] -acetaminop 12-06 Oral, Q6H, it y of hen (NORCO 23:00: First dose [place] 5) 5-325 mg 00 (after Medica l tablet 1 last Branch tablet modificati on) on Thu12/07/19 at 1800, Until Discontinu ed, Routine ibuprofen Yes 200mg 200 mg, [facility] ers (MOTRIN IB) 12-06 Oral, ity of tablet 200 20:52: Q6HPRN, [place] mg 13 Starting Medical Thu12/07/19 Branch at 1552, Until Discontinu ed, Routine, Pain (scale 4-6) amoxicillin 2019- 2020- No [id number] 1{tbl} Take 1 [facility] -clavulanat 12-06-24 tablet by it y of e 00:00: 04:59 mouth 2 [place] (AUGMENTIN) 00 :00 (two) Medical 875-125 mg times Branch per tablet daily for 14 days. ibuprofen 2019-0 2020- No [id number] 400mg Take 2 [facility] 200 mg 12-0624 tablets by ity of tablet 00:00: 04:59 mouth [place] 00 :00 every 6 Medical (six) Branch hours as needed for Pain (scale 1-3) or Pain (scale 4-6) for up to 14 days. acetaminoph 2020-0 2020- No [id number] 650mg Take 2 [facility] en 325 mg 12-0624 tablets by ity of tablet 00:00: 04:59 mouth [place] 00 :00 every 6 Medical (six) Branch hours as needed for Alternate with ibuprofen for pain scale 4-6 for up to 14 days. ibuprofen 2020-0 2020- No [id number] 400mg Take 2 [facility] 200 mg 12-0624 tablets by ity of tablet 00:00: 04:59 mouth [place] 00 :00 every 6 Medical (six) Branch hours as needed for Pain (scale 1-3) or Pain (scale 4-6) for up to 14 days. acetaminoph 2020-0 2020- No [id number] 650mg Take 2 [facility] en 325 mg 12-0624 tablets by ity of tablet 00:00: 04:59 mouth [place] 00 :00 every 6 Medical (six) Branch hours as needed for Alternate with ibuprofen for pain scale 4-6 for up to 14 days. ibuprofen 2020-0 2020- No [id number] 400mg Take 2 [facility] 200 mg 12-06 tablets by ity of tablet 00:00: 04:59 mouth [place] 00 :00 every 6 Medical (six) Branch hours as needed for Pain (scale 1-3) or Pain (scale 4-6) for up to 14 days. acetaminoph 2020-0 2020- No [id number] 650mg Take 2 [facility] en 325 mg 12-0624 tablets by ity of tablet 00:00: 04:59 mouth [place] 00 :00 every 6 Medical (six) Branch hours as needed for Alternate with ibuprofen for pain scale 4-6 for up to 14 days. ibuprofen 2020-0 2020- No [id number] 400mg Take 2 [facility] 200 mg 12-0624 tablets by ity of tablet 00:00: 04:59 mouth [place] 00 :00 every 6 Medical (six) Branch hours as needed for Pain (scale 1-3) or Pain (scale 4-6) for up to 14 days. acetaminoph 2020-0 2020- No [id number] 650mg Take 2 [facility] en 325 mg 12-0624 tablets by ity of tablet 00:00: 04:59 mouth [place] 00 :00 every 6 Medical (six) Branch hours as needed for Alternate with ibuprofen for pain scale 4-6 for up to 14 days. ibuprofen 2020-0 2020- No [id number] 400mg Take 2 [facility] 200 mg 12-0624 tablets by ity of tablet 00:00: 04:59 mouth [place] 00 :00 every 6 Medical (six) Branch hours as needed for Pain (scale 1-3) or Pain (scale 4-6) for up to 14 days. acetaminoph 2020-0 2020- No [id number] 650mg Take 2 [facility] en 325 mg 12-06 tablets by ity of tablet 00:00: 04:59 mouth [place] 00 :00 every 6 Medical (six) Branch hours as needed for Alternate with ibuprofen for pain scale 4-6 for up to 14 days. ibuprofen 2020-0 2020- No [id number] 400mg Take 2 [facility] 200 mg 12-06 tablets by ity of tablet 00:00: 04:59 mouth [place] 00 :00 every 6 Medical (six) Branch hours as needed for Pain (scale 1-3) or Pain (scale 4-6) for up to 14 days. acetaminoph 2020-0 2020- No [id number] 650mg Take 2 [facility] en 325 mg 12-06 tablets by ity of tablet 00:00: 04:59 mouth [place] 00 :00 every 6 Medical (six) Branch hours as needed for Alternate with ibuprofen for pain scale 4-6 for up to 14 days. ibuprofen 2020-0 2020- No [id number] 400mg Take 2 [facility] 200 mg 12-0624 tablets by ity of tablet 00:00: 04:59 mouth [place] 00 :00 every 6 Medical (six) Branch hours as needed for Pain (scale 1-3) or Pain (scale 4-6) for up to 14 days. acetaminoph 2020-0 2020- No [id number] 650mg Take 2 [facility] en 325 mg 12-0624 tablets by ity of tablet 00:00: 04:59 mouth [place] 00 :00 every 6 Medical (six) Branch hours as needed for Alternate with ibuprofen for pain scale 4-6 for up to 14 days. ibuprofen 2020-0 2020- No [id number] 400mg Take 2 [facility] 200 mg 12-06 tablets by ity of tablet 00:00: 04:59 mouth [place] 00 :00 every 6 Medical (six) Branch hours as needed for Pain (scale 1-3) or Pain (scale 4-6) for up to 14 days. acetaminoph 2020-0 2020- No [id number] 650mg Take 2 [facility] en 325 mg 12-06 tablets by ity of tablet 00:00: 04:59 mouth [place] 00 :00 every 6 Medical (six) Branch hours as needed for Alternate with ibuprofen for pain scale 4-6 for up to 14 days. ibuprofen 2020-0 2020- No [id number] 400mg Take 2 [facility] 200 mg 12-06 tablets by ity of tablet 00:00: 04:59 mouth [place] 00 :00 every 6 Medical (six) Branch hours as needed for Pain (scale 1-3) or Pain (scale 4-6) for up to 14 days. acetaminoph 2019-0 2019- No [id number] 650mg Take 2 [facility] en 325 mg 12-06 tablets by ity of tablet 00:00: 04:59 mouth [place] 00 :00 every 6 Medical (six) Branch hours as needed for Alternate with ibuprofen for pain scale 4-6 for up to 14 days. amoxicillin 2019-0 2020- No [id number] 1{tbl} Take 1 [facility] -clavulanat 12-06 tablet by it y of e 00:00: 04:59 mouth 2 [place] (AUGMENTIN) 00 :00 (two) Medical 875-125 mg times Branch per tablet daily for 14 days. ibuprofen 2019-0 2019- No [id number] 400mg Take 2 [facility] 200 mg 12-06 tablets by ity of tablet 00:00: 04:59 mouth [place] 00 :00 every 6 Medical (six) Branch hours as needed for Pain (scale 1-3) or Pain (scale 4-6) for up to 14 days. acetaminoph 2020-0 2020- No [id number] 650mg Take 2 [facility] en 325 mg 12-0624 tablets by ity of tablet 00:00: 04:59 mouth [place] 00 :00 every 6 Medical (six) Branch hours as needed for Alternate with ibuprofen for pain scale 4-6 for up to 14 days. HYDROcodone 2020-0 2020- No [id number] 1{tbl} Take 1 U nivers -acetaminop 12-06 tablet by it y of hen (NORCO) 00:00: 04:59 mouth [place] 5-325 mg 00 :00 every 6 Medical tablet (six) Branch hours as needed for Pain (scale 7-10) for up to 5 days. Indication s: acute pain HYDROcodone 2019-0 2020- No [id number] 1{tbl} Take 1 U nivers -acetaminop 12-06 tablet by it y of hen (NORCO) 00:00: 04:59 mouth [place] 5-325 mg 00 :00 every 6 Medical tablet (six) Branch hours as needed for Pain (scale 7-10) for up to 5 days. Indication s: acute pain amoxicillin 2019-0 2020- No [id number] 1{tbl} Take 1 [facility] -clavulanat 12-06 tablet by it y of e 00:00: 00:00 mouth 2 [place] (AUGMENTIN) 00 :00 (two) Medical 875-125 mg times Branch per tablet daily for 14 days. HYDROcodone 2019-0 2020- No [id number] 1{tbl} Take 1 U nivers -acetaminop 12-06 tablet by it y of hen ([place]) 00:00: 00:00 mouth [place] 5-325 mg 00 :00 every 6 Medical tablet (six) Branch hours as needed for Pain (scale 7-10) for up to 5 days. Indication s: acute pain lactated 2019-0 Yes 1000mL at 42 [facility] ringers IV 9-08 mL/hr, ity of infusion 23:15: 1,000 mL, [place] 1,000 mL 00 IV Medical Infusion, Branch CONTINUOUS , Starting 12/06/19 at 1815, Until Discontinu ed, Routine, PACU hydralAZINE 2019-0 Yes 5mg 5 mg, Unive rs (APRESOLINE -06 Intravenou it y of ) injection 17:22: [...] CHARMAINE insulin 2020-0 Yes 17U 17 Units, [facility] gl[facility] 12-03 Subcutaneo ity o f (LANTUS 02:00: us, HS, [place] U-100) 00 First dose Medical injection (after Branch 17 Units last modificati on) on 12/03/19 at 2100, Until Discontinu ed, Routine insulin 2020-0 Yes 6U 6 Units, [facility] s aspart 12-02 Subcutaneo ity of RAPID 16:30: , [place], [place] (NOVOLOG) 00 First dose Medi shade injection [...] br>Duratio n of Therapy: 7 days lisinopriL 2020-0 Yes 40mg 40 mg, [facility] (PRINIVIL,Z 12-02 Oral, QPM ity of ESTRIL) 01:00: AT 2000, [place] tablet 40 00 First dose Medi shade mg (after Branch last modificati on) on Thu12/02/19 at 2000, Until Discontinu ed, Routine HYDROcodone 2020-0 2020- No 1{tbl} 1 tablet, [facility] -acetaminop [...] 650 18 :11 Starting Medic al mg 12/02/19 Branch at 1433, Until Thu12/07/19 at 1551, Routine, Pain (scale 1-3) lisinopriL 2019-0 2020- No 20mg 20 mg, Univ ers (PRINIVIL,Z 12-01 Oral, QPM it y of ESTRIL) 01:00: 13:53 AT 1999, [place] tablet 20 00 :13 First dose Medi shade mg (after Branch last modificati on) on Thu12/01/19 at 2000, Until Discontinu ed, Routine KCL 2020-0 2020- No 40meq 40 mEq, [facility] (KLOR-CON 11-30 Oral, ONCE ity of M20) tablet 11:30: 14:15 NOW, 1 [place] 40 mEq 00 :00 dose, Thu Medical 12/01/19 at Branch 0630, Routine carvediloL 2020-0 Yes 25mg 25 mg, Unive rs (COREG) 11-30 Oral, BID, ity of tablet 25 01:00: First dose [place] mg 00 (after Medical last Branch modificati on) on Thu11/30/19 at 2000, Until Discontinu ed, Routine KCL 2020-0 2020- No 20meq 20 mEq, [facility] (KLOR-CON 11-29 Oral, ity of M20) tablet 15:51: 22:27 ONCE, 1 [place] 20 mEq 00 :00 dose, Thu11/30/19 at Branch 1100, Routine insulin 2020-0 2020- No 15U 15 Units, Univ ers glargine 11-29 Subcutaneo ity of (LANTUS 02:00: 15:07 us, [facility], [place] U-100) 00 :18 First dose Medical injection (after Branch 15 Units last modificati on) on Thu11/29/19 at 2100, Until Discontinu ed, Routine insulin 2019-0 2020- No 4U 4 Units, Unive rs aspart 11-28 Subcutaneo ity of RAPID 21:30: 13:24 us, [facility], [place] (NOVOLOG) 00 :17 First dose Medi shade injection 4 (after Branch Units last modificati on) on Thu11/29/19 at 1630, Until Discontinu ed, Routine potassium 2019-0 2019- No 20meq 20 mEq, IV Univers chloride 20 11-28 Piggyback, i ty of mEq/100 mL 18:45: 22:38 ONCE, 1 [place] (KCL) 20 00 :00 [facility] at Bran ch RTU IVPB 20 1345, 100 mEq mL KCL 2019- 2020- No 40meq 40 mEq, Univers (KLOR-CON 11-28 Oral, ity of M20) tablet 17:10: 17:45 ONCE, 1 [place] 40 mEq 00 :00 dose, [facility] 11/29/19 at Branch 1215, Routine aspirin 2019- Yes 81mg 81 mg, Univers chewable 11-28 Oral, ity of tablet 81 14:00: DAILY, [place] mg 00 First dose Medical on [facility] 11/29/19 at 0900, Until Discontinu ed, Routine carvediloL 2019-2019- No 12.5mg 12.5 mg, Univers (COREG) 11-28 Oral, BID ity of tablet 12.5 13:00: 15:31 MEALS, [place] mg 00 :39 First dose Medical on [facility] 11/29/19 at 0800, Until Discontinu ed, Routine vancomycin 2019- No 1250mg 1,250 mg, Univers 1250 mg in 11-28 IV ity of NS 250 mL 04:00: 13:28 Piggyback, [place] RTU IV 00 :57 Q12H ABX, Medical Piggyback First dose Bran ch 1,250 mg (after last modificati on) on [facility] 11/28/19 at 2300, Until Discontinu ed
Reas on for Anti-Infec tive: Empiric Therapy for Suspected Infection< br>Empiric Therapy Site: Skin / Soft tissue
Duration of therapy: 72 hours atorvastati 2019-0 Yes 20mg 20 mg, Univ ers n (LIPITOR) 11-28 Oral, QHS, it y of tablet 20 02:00: First dose [place] mg 00 on [facility] Medical 11/28/19 at Branch 2100, Until Discontinu ed, Routine hydralAZINE 2019-0 2020- No 10mg 10 mg, Uni vers (APRESOLINE 11-28 Intravenou i ty of ) injection 01:53: 14:56 s, Q4HPRN, [place] 10 mg 17 :17 Starting Medical [facility] 11/28/19 at 2053, Until Thu12/02/19 at 0956, Routine, Hypertensi on, SBP > 160 mmHg hydralAZINE 2019- 2020- No 5mg 5 mg, Univ ers (APRESOLINE 11-28 Intravenou i ty of ) injection 01:00: 01:54 s, Q4H, [place] 5 mg 00 :55 First dose Medical on [facility] 11/28/19 at 2000, Until Discontinu ed, Routine sodium 2020-0 Yes Topical, Univers hypochlorit 11-27 DAILY, ity of e 0.025% 14:00: First dose [place] as (Dakin's) 00 on [facility] Medical solution 11/28/19 at [facility] h 0900, Until Discontinu ed, Routine KCL 2019-0 2020- No 40meq 40 mEq, IV Unive rs (POTASSIUM 11-27 Piggyback, it y of CHLORIDE) 12:15: 13:19 ONCE, 1 [place] 40 mEq in 00 :00 dose, [facility] Medic al NaCl 0.9% 11/28/19 at [facility] ch (NS) 0715, 250 piggyback mL KCL 2019-0 2020- No 40meq 40 mEq, Univers (KLOR-CON 11-27 Oral, ity of M20) tablet 12:15: 13:19 ONCE, 1 [place] 40 mEq 00 :00 dose, [facility] Medical 11/28/19 at Branch 0715, STAT ketorolac 2019-0 2020- No 15mg 15 mg, Unive rs (TORADOL) 11-27 Slow IV ity of injection 05:00: 04:59 Push, Q6H, [place] 15 mg 00 :00 4 doses, Medical First dose Branch on [facility] 11/28/19 at 0000, Last dose on Thu11/28/19 at 1800, Routine
cruise staff member approving Restricted medication : YADIRA NICK lactated 2020-0 Yes 1000mL at 42 Univer s ringers IV 8-31 mL/hr, ity of infusion 04:15: 1,000 mL, [place] 1,000 mL 00 IV Medical Infusion, Branch CONTINUOUS , Starting [place] 11/27/19 at 2315, Until Discontinu ed, Routine acetaminoph 2019-0 2020- No 1000mg 1,000 mg, Univers en ADULT 11-2701 IV ity of (OFIRMEV) 03:00: 02:03 Infusion, [place] injection 00 :00 Administer Medi shade 1,000 mg over 15 Branch Minutes, Q8H, 3 doses, First dose on [place] 11/27/19 at 2200, Last dose on Thu11/28/19 at 1400, Routine
Indicatio n: Perioperat amando Patient morpHINE 2019-0 Yes 4mg 4 mg, Slow Uni vers injection 4 11-27 IV Push, ity of mg 02:57: Q4HPRN, [place] 24 Starting Medical [facility] 11/27/19 at 2157, Until Discontinu ed, Routine, Pain (scale 7-10) KCL 2019-0 2020- No 40meq 40 mEq, IV Unive rs (POTASSIUM 11-26- Piggyback, it y of CHLORIDE) 11:23: 13:55 ONCE, 1 [place] 40 mEq in 00 :00 dose, [place] Medic al NaCl 0.9% 11/27/19 at Bran ch (NS) 0630, 250 piggyback mL KCL 2019-0 2020- No 40meq 40 mEq, Univers (KLOR-CON 11-26 08-30 Oral, ity of M20) tablet 11:22: 11:40 ONCE, 1 [place] 40 mEq 00 :00 dose, [place] Medical 11/27/19 at Branch 0630, Routine NaCl 0.9% 2020-0 2020- No 1000mL at 50 Univ ers (NS) IV 11-26-31 mL/hr, IV ity of infusion 04:15: 03:04 Infusion, [place] 1,000 mL 00 :30 CONTINUOUS Medic al , Starting [facility] 11/26/19 at 2315, Until [place] 8/30/20 at 2204, Routine gadoteridol 2019-0 2020- No .2mL/kg 12.62 mL Univers (PROHANCE-1 11-25 (0.2 mL/kg i ty of 5 mL) 21:30: 21:16 ?63.1 kg), [place] injection 00 :00 Intravenou Medi shade 12.62 mL s, ONCE, 1 Branc h dose, 11/26/19 at 1630, Routine vancomycin 2019- 2020- No 15mg/kg 1,000 mg Univers (VANCOCIN) 11-25 (rounded ity of 1,000 mg in 16:00: 01:50 from 946.5 [place] NaCl 0.9% 00 :30 mg = 15 Medical (NS) 250 mL mg/kg Branch VIAL-MATE ?63.1 kg), IV IV piggyback Piggyback, Q12H ABX, First dose on 11/26/19 at 1100, Until Discontinu ed, 250 mL
Reas on for Anti-Infec tive: Empiric Therapy for Suspected Infection< br>Empiric Therapy Site: Skin / Soft tissue
Duration of therapy: 72 hours lisinopriL 2020- No 20mg 20 mg, [facility] ers (PRINIVIL,Z 11-25 Oral, ity of ESTRIL) 14:00: 15:33 DAILY, [place] tablet 20 00 :58 First dose Medi shade mg on Sat Branch 11/26/19 at 0900, Until Discontinu ed, Routine enoxaparin 2020- No 40mg 40 mg, [facility] ers (LOVENOX) 11-25 Subcutaneo ity of injection 14:00: 03:04 us, DAILY, [place] 40 mg 00 :30 First dose Medical on Sat Branch 11/26/19 at 0900, Until Discontinu ed, Routine insulin 2019- 2020- No 3U 3 Units, [facility] 11-25 Subcutaneo ity of RAPID 12:30: 17:09 , [place], [place] (NOVOLOG) 00 :27 First dose Medi shade injection 3 on Sat Branch Units 11/26/19 at 0730, Until Discontinu ed, Routine piperacilli 2019- 2020- No 3.375g 3.375 g, [facility] n-tazobacta 11-25 IV ity of m (ZOSYN) 09:20: 13:28 Piggyback, [place] 3.375 g in 00 :57 Q6H ABX, Medic al NaCl 0.9% First dose Bran ch (NS) 100 mL on Sat MINI-BAG 11/26/19 at 0430, Until Discontinu ed, 100 mL
R esmer for Anti-Infec tive: Documented Infection< br>Documen alex Infection Site: Skin / Soft Tissue
Duration of Therapy: 7 days Sliding 2020-0 Yes Subcutaneo [facility] ers Scale 8- us, Q4H, ity of Insulin - 09:00: First dose [place] Aspart 00 on [facility] Medical (NOVOLOG) + 11/26/19 at Br anch Fsbg 0400, Testing Until Discontinu ed, Routine insulin 2019-0 2020- No 12U 12 Units, [facility] glargine 11-25 Subcutaneo ity of (LANTUS 08:00: 17:09 us, [facility], [place] U-100) 00 :27 First dose Medical injection on Sat Branch 12 Units 11/26/19 at 0300, Until Discontinu ed, Routine NaCl 0.9% 2019-0 2020- No 1000mL at 999 Uni vers (NS) bolus 11-25-29 mL/hr, ity of infusion 07:00: 07:03 1,000 mL, [place] 1,000 mL 00 :00 IV Medical Piggyback, Branch ONCE, 1 dose, 11/26/19 at 0200, STAT NaCl 0.9% 2019-0 2020- No 1000mL at 125 Uni vers (NS) IV 11-25 08-30 mL/hr, IV ity of infusion 06:30: 04:04 Infusion, [place] 1,000 mL 00 :54 CONTINUOUS Medic al , Starting Branch 11/26/19 at 0130, Until 11/26/19 at 2304, Routine traMADoL 2019-0 2020- No 50mg 50 mg, Univer s (ULTRAM) 11-2531 Oral, ity of tablet 50 06:23: 02:57 Q8HPRN, [place] mg 27 :59 Starting Medical [facility] Branch 11/26/19 at 0123, Until [place] 11/27/19 at 2157, Routine, Pain (scale 4-6) NaCl 0.9% 2019- No 1000mL at 125 Uni vers (NS) IV 11-25 mL/hr, ity of infusion 04:30: 15:10 Intravenou [place] 1,000 mL 00 :28 s, Medical CONTINUOUS Branch , Starting 11/25/19 at 2330, Until 11/26/19 at 1010, Routine insulin 2019- No 5U 5 Units, Unive rs regular 11-25 Subcutaneo ity o f human 04:30: 03:27 , ONCE, [place] (HUMULIN R) 00 :00 1 dose, Medic [...] ity of 1,000 mg in 04:30: 15:09 [place], [place] NaCl 0.9% 00 :47 Q12H ABX, Medic al (NS) 250 mL First dose Br anch VIAL-MATE on Thu IV 11/25/19 at piggyback 2330, Until Discontinu ed, 250 mL
Reas on for Anti-Infec tive: Documented Infection< br>Documen alex Infection Site: Skin / Soft Tissue
Duration of Therapy: Other (see Comments) lisinopril Yes [id number] 20mg Take 1 Univers 20 mg 4- [id number] tablet by ity of tablet 00:00: mouth [place] 00 daily. Medical Branch lisinopril Yes [id number] 20mg Take 1 Univers 20 mg 4-04 [id number] tablet by ity of tablet 00:00: mouth [place] 00 daily. [facility] lisinopril 2019-0 Yes [id number] 20mg Take 1 Univers 20 mg 4-04 [id number] tablet by ity of tablet 00:00: mouth [place] 00 daily. [facility] lisinopril 2019-0 Yes [id number] 20mg Take 1 Univers 20 mg 4-04 [id number] tablet by ity of tablet 00:00: mouth [place] 00 daily. [facility] Branch lisinopril 2018-0 Yes [id number] 20mg Take 1 Univers 20 mg 4-04 [id number] tablet by ity of tablet 00:00: mouth [place] 00 daily. [facility] lisinopril 2018-0 Yes [id number] 20mg Take 1 Univers 20 mg 4-04 [id number] tablet by ity of tablet 00:00: mouth [place] 00 daily. [facility] lisinopril 2018-0 Yes [id number] 20mg Take 1 Univers 20 mg 4-04 [id number] tablet by ity of tablet 00:00: mouth [place] 00 daily. [facility] lisinopril 2018-0 Yes [id number] 20mg Take 1 Univers 20 mg 4-04 [id number] tablet by ity of tablet 00:00: mouth [place] 00 daily. [facility] lisinopril 2018-0 Yes [id number] 20mg Take 1 Univers 20 mg 4-04 [id number] tablet by ity of tablet 00:00: mouth [place] 00 daily. [facility] lisinopril 2018-0 Yes [id number] 20mg Take 1 Univers 20 mg 4-04 [id number] tablet by ity of tablet 00:00: mouth [place] 00 daily. [facility] lisinopril 2019-0 Yes [id number] 20mg Take 1 Univers 20 mg 4-04 [id number] tablet by ity of tablet 00:00: mouth [place] 00 daily. [facility] lisinopril 2019-0 Yes [id number] 20mg Take 1 Univers 20 mg 4-04 [id number] tablet by ity of tablet 00:00: mouth [place] 00 daily. [facility] lisinopril 2019-0 Yes [id number] 20mg Take 1 Univers 20 mg 4-04 [id number] tablet by ity of tablet 00:00: mouth [place] 00 daily. [facility] lisinopril 2019-0 Yes [id number] 20mg Take 1 Univers 20 mg 4-04 [id number] tablet by ity of tablet 00:00: mouth [place] 00 daily. [facility] Branch lisinopril 2019-0 Yes [id number] 20mg Take 1 Univers 20 mg 4-04 [id number] tablet by ity of tablet 00:00: mouth [place] 00 daily. [facility] Branch lisinopril 2019-0 Yes [id number] 20mg Take 1 Univers 20 mg 4-04 [id number] tablet by ity of tablet 00:00: mouth [place] 00 daily. [facility] Branch lisinopril 2018-0 Yes [id number] 20mg Take 1 Univers 20 mg 4-04 [id number] tablet by ity of tablet 00:00: mouth [place] 00 daily. [facility] Branch lisinopril 2018-0 Yes [id number] 20mg Take 1 Univers 20 mg 4-04 [id number] tablet by ity of tablet 00:00: mouth [place] 00 daily. [facility] Branch lisinopril 2018-0 Yes [id number] 20mg Take 1 Univers 20 mg 4-04 [id number] tablet by ity of tablet 00:00: mouth [place] 00 daily. [facility] lisinopril 2018-0 Yes [id number] 20mg Take 1 Univers 20 mg 4-04 [id number] tablet by ity of tablet 00:00: mouth [place] 00 daily. [facility] lisinopril 2019-0 Yes [id number] 20mg Take 1 Univers 20 mg 4-04 [id number] tablet by ity of tablet 00:00: mouth [place] 00 daily. [facility] lisinopril 2019-0 Yes [id number] 20mg Take 1 Univers 20 mg 4-04 [id number] tablet by ity of tablet 00:00: mouth [place] 00 daily. [facility] lisinopril 2019-0 Yes [id number] 20mg Take 1 Univers 20 mg 4-04 [id number] tablet by ity of tablet 00:00: mouth [place] 00 daily. [facility] Branch lisinopril 2019-0 Yes [id number] 20mg Take 1 Univers 20 mg 4-04 [id number] tablet by ity of tablet 00:00: mouth [place] 00 daily. [facility] lisinopril 2019-0 Yes [id number] 20mg Take 1 Univers 20 mg 4-04 [id number] tablet by ity of tablet 00:00: mouth [place] 00 daily. [facility] lisinopril 2019-0 Yes [id number] 20mg Take 1 Univers 20 mg 4-04 [id number] tablet by ity of tablet 00:00: mouth [place] 00 daily. [facility] Branch lisinopril 2019-0 Yes [id number] 20mg Take 1 Univers 20 mg 4-04 [id number] tablet by ity of tablet 00:00: mouth [place] 00 daily. [facility] Branch lisinopril 2019-0 Yes [id number] 20mg Take 1 Univers 20 mg 4-04 [id number] tablet by ity of tablet 00:00: mouth [place] 00 daily. [facility] Branch lisinopril 2018-0 Yes [id number] 20mg Take 1 Univers 20 mg 4-04 [id number] tablet by ity of tablet 00:00: mouth [place] 00 daily. [facility] Branch lisinopril 2018-0 Yes [id number] 20mg Take 1 Univers 20 mg 4-04 [id number] tablet by ity of tablet 00:00: mouth [place] 00 daily. [facility] Branch lisinopril 2018-0 Yes [id number] 20mg Take 1 Univers 20 mg 4-04 [id number] tablet by ity of tablet 00:00: mouth [place] 00 daily. [facility] Branch lisinopril 2018-0 Yes [id number] 20mg Take 1 Univers 20 mg 4-04 [id number] tablet by ity of tablet 00:00: mouth [place] 00 daily. [facility] Branch lisinopril 2018-0 Yes [id number] 20mg Take 1 Univers 20 mg 4-04 [id number] tablet by ity of tablet 00:00: mouth [place] 00 daily. [facility] Branch lisinopril 2018-0 Yes [id number] 20mg Take 1 Univers 20 mg 4-04 [id number] tablet by ity of tablet 00:00: mouth [place] 00 daily. [facility] Branch lisinopril 2018-0 Yes [id number] 20mg Take 1 Univers 20 mg 4-04 [id number] tablet by ity of tablet 00:00: mouth [place] 00 daily. [facility] Branch lisinopril 2019-0 Yes [id number] 20mg Take 1 Univers 20 mg 4-04 [id number] tablet by ity of tablet 00:00: mouth [place] 00 daily. [facility] lisinopril 2019-0 Yes [id number] 20mg Take 1 Univers 20 mg 4-04 [id number] tablet by ity of tablet 00:00: mouth [place] 00 daily. [facility] Branch lisinopril 2019-0 Yes [id number] 20mg Take 1 Univers 20 mg 4-04 [id number] tablet by ity of tablet 00:00: mouth [place] 00 daily. Medical Branch lisinopril 2019-0 Yes [id number] 20mg Take 1 Univers 20 mg 4-04 [id number] tablet by ity of tablet 00:00: mouth [place] 00 daily. [facility] lisinopril 2019-0 Yes [id number] 20mg Take 1 Univers 20 mg 4-04 [id number] tablet by ity of tablet 00:00: mouth [place] 00 daily. [facility] lisinopril 2018-0 Yes [id number] 20mg Take 1 Univers 20 mg 4-04 [id number] tablet by ity of tablet 00:00: mouth [place] 00 daily. [facility] lisinopril 2018-0 Yes [id number] 20mg Take 1 Univers 20 mg 4-04 [id number] tablet by ity of tablet 00:00: mouth [place] 00 daily. [facility] lisinopril 2018-0 Yes [id number] 20mg Take 1 Univers 20 mg 4-04 [id number] tablet by ity of tablet 00:00: mouth [place] 00 daily. [facility] lisinopril 2018-0 Yes [id number] 20mg Take 1 Univers 20 mg 4-04 [id number] tablet by ity of tablet 00:00: mouth [place] 00 daily. [facility] lisinopril 2018-0 Yes [id number] 20mg Take 1 Univers 20 mg 4-04 [id number] tablet by ity of tablet 00:00: mouth [place] 00 daily. [facility] lisinopril 2018-0 Yes [id number] 20mg Take 1 Univers 20 mg 4-04 [id number] tablet by ity of tablet 00:00: mouth [place] 00 daily. [facility] lisinopril 2019-0 Yes [id number] 20mg Take 1 Univers 20 mg 4-04 [id number] tablet by ity of tablet 00:00: mouth [place] 00 daily. [facility] lisinopril 2019-0 Yes [id number] 20mg Take 1 Univers 20 mg 4-04 [id number] tablet by ity of tablet 00:00: mouth [place] 00 daily. [facility] lisinopril 2019-0 Yes [id number] 20mg Take 1 Univers 20 mg 4-04 [id number] tablet by ity of tablet 00:00: mouth [place] 00 daily. [facility] lisinopril 2019-0 Yes [id number] 20mg Take 1 Univers 20 mg 4-04 [id number] tablet by ity of tablet 00:00: mouth [place] 00 daily. [facility] lisinopril 2019-0 Yes [id number] 20mg Take 1 Univers 20 mg 4-04 [id number] tablet by ity of tablet 00:00: mouth [place] 00 daily. [facility] Branch lisinopril 2019-0 Yes [id number] 20mg Take 1 Univers 20 mg 4-04 [id number] tablet by ity of tablet 00:00: mouth [place] 00 daily. [facility] Branch lisinopril 2019-0 Yes [id number] 20mg Take 1 Univers 20 mg 4-04 [id number] tablet by ity of tablet 00:00: mouth [place] 00 daily. [facility] Branch lisinopril 2018-0 Yes [id number] 20mg Take 1 Univers 20 mg 4-04 [id number] tablet by ity of tablet 00:00: mouth [place] 00 daily. [facility] Branch lisinopril 2018-0 Yes [id number] 20mg Take 1 Univers 20 mg 4-04 [id number] tablet by ity of tablet 00:00: mouth [place] 00 daily. [facility] Branch lisinopril 2018-0 Yes [id number] 20mg Take 1 Univers 20 mg 4-04 [id number] tablet by ity of tablet 00:00: mouth [place] 00 daily. [facility] Branch lisinopril 2018-0 Yes [id number] 20mg Take 1 Univers 20 mg 4-04 [id number] tablet by ity of tablet 00:00: mouth [place] 00 daily. [facility] Branch lisinopril 2018-0 Yes [id number] 20mg Take 1 Univers 20 mg 4-04 [id number] tablet by ity of tablet 00:00: mouth [place] 00 daily. [facility] Branch lisinopril 2019-0 Yes [id number] 20mg Take 1 Univers 20 mg 4-04 [id number] tablet by ity of tablet 00:00: mouth [place] 00 daily. [facility] Branch lisinopril 2019-0 Yes [id number] 20mg Take 1 Univers 20 mg 4-04 [id number] tablet by ity of tablet 00:00: mouth [place] 00 daily. [facility] Branch lisinopril 2019-0 Yes [id number] 20mg Take 1 Univers 20 mg 4-04 [id number] tablet by ity of tablet 00:00: mouth [place] 00 daily. [facility] lisinopril 2019-0 Yes [id number] 20mg Take 1 Univers 20 mg 4-04 [id number] tablet by ity of tablet 00:00: mouth [place] 00 daily. [facility] lisinopril 2019-0 Yes [id number] 20mg Take 1 Univers 20 mg 4-04 [id number] tablet by ity of tablet 00:00: mouth 00 daily. Medical Branch metFORMIN 2019-0 Yes [id number] 1000mg Take 1 Univers 1,000 mg 4-03 [id number] tablet by ity of tablet 00:00: mouth (two) Medical times Branch daily with meals. metFORMIN 2019-0 Yes [id number] 1000mg Take 1 Univers 1,000 mg 4-03 [id number] tablet by ity of tablet 00:00: mouth (two) Medical times Branch daily with meals. metFORMIN 2019-0 Yes [id number] 1000mg Take 1 Univers 1,000 mg 4-03 [id number] tablet by ity of tablet 00:00: mouth (two) Medical times Branch daily with meals. metFORMIN 2019-0 Yes [id number] 1000mg Take 1 Univers 1,000 mg 4-03 [id number] tablet by ity of tablet 00:00: mouth (two) Medical times Branch daily with meals. metFORMIN 2019-0 Yes [id number] 1000mg Take 1 Univers 1,000 mg 4-03 [id number] tablet by ity of tablet 00:00: mouth (two) Medical times Branch daily with meals. metFORMIN 2019-0 Yes [id number] 1000mg Take 1 Univers 1,000 mg 4-03 [id number] tablet by ity of tablet 00:00: mouth (two) Medical times Branch daily with meals. metFORMIN 2019-0 Yes [id number] 1000mg Take 1 Univers 1,000 mg 4-03 [id number] tablet by ity of tablet 00:00: mouth (two) Medical times Branch daily with meals. metFORMIN 2019-0 Yes [id number] 1000mg Take 1 Univers 1,000 mg 4-03 [id number] tablet by ity of tablet 00:00: mouth (two) Medical times Branch daily with meals. metFORMIN 2019-0 Yes [id number] 1000mg Take 1 Univers 1,000 mg 4-03 [id number] tablet by ity of tablet 00:00: mouth (two) Medical times Branch daily with meals. metFORMIN 2019-0 Yes [id number] 1000mg Take 1 Univers 1,000 mg 4-03 [id number] tablet by ity of tablet 00:00: mouth (two) Medical times Branch daily with meals. metFORMIN 2019-0 Yes [id number] 1000mg Take 1 Univers 1,000 mg 4-03 [id number] tablet by ity of tablet 00:00: mouth (two) Medical times Branch daily with meals. metFORMIN 2019-0 Yes [id number] 1000mg Take 1 Univers 1,000 mg 4-03 [id number] tablet by ity of tablet 00:00: mouth (two) Medical times Branch daily with meals. metFORMIN 2019-0 Yes [id number] 1000mg Take 1 Univers 1,000 mg 4-03 [id number] tablet by ity of tablet 00:00: mouth (two) Medical times Branch daily with meals. metFORMIN 2019-0 Yes [id number] 1000mg Take 1 Univers 1,000 mg 4-03 [id number] tablet by ity of tablet 00:00: mouth (two) Medical times Branch daily with meals. metFORMIN 2019-0 Yes [id number] 1000mg Take 1 Univers 1,000 mg 4-03 [id number] tablet by ity of tablet 00:00: mouth (two) Medical times Branch daily with meals. metFORMIN 2019-0 Yes [id number] 1000mg Take 1 Univers 1,000 mg 4-03 [id number] tablet by ity of tablet 00:00: mouth (two) Medical times Branch daily with meals. metFORMIN 2019-0 Yes [id number] 1000mg Take 1 Univers 1,000 mg 4-03 [id number] tablet by ity of tablet 00:00: mouth (two) Medical times Branch daily with meals. metFORMIN 2019-0 Yes [id number] 1000mg Take 1 Univers 1,000 mg 4-03 [id number] tablet by ity of tablet 00:00: mouth (two) Medical times Branch daily with meals. metFORMIN 2019-0 Yes [id number] 1000mg Take 1 Univers 1,000 mg 4-03 [id number] tablet by ity of tablet 00:00: mouth (two) Medical times Branch daily with meals. metFORMIN 2019-0 Yes [id number] 1000mg Take 1 Univers 1,000 mg 4-03 [id number] tablet by ity of tablet 00:00: mouth (two) Medical times Branch daily with meals. metFORMIN 2019-0 Yes [id number] 1000mg Take 1 Univers 1,000 mg 4-03 [id number] tablet by ity of tablet 00:00: mouth (two) Medical times Branch daily with meals. metFORMIN 2019-0 Yes [id number] 1000mg Take 1 Univers 1,000 mg 4-03 [id number] tablet by ity of tablet 00:00: mouth (two) Medical times Branch daily with meals. metFORMIN 2019-0 Yes [id number] 1000mg Take 1 Univers 1,000 mg 4-03 [id number] tablet by ity of tablet 00:00: mouth (two) Medical times Branch daily with meals. metFORMIN 2019-0 Yes [id number] 1000mg Take 1 Univers 1,000 mg 4-03 [id number] tablet by ity of tablet 00:00: mouth (two) Medical times Branch daily with meals. metFORMIN 2019-0 Yes [id number] 1000mg Take 1 Univers 1,000 mg 4-03 [id number] tablet by ity of tablet 00:00: mouth (two) Medical times Branch daily with meals. metFORMIN 2019-0 Yes [id number] 1000mg Take 1 Univers 1,000 mg 4-03 [id number] tablet by ity of tablet 00:00: mouth (two) Medical times Branch daily with meals. metFORMIN 2019-0 Yes [id number] 1000mg Take 1 Univers 1,000 mg 4-03 [id number] tablet by ity of tablet 00:00: mouth () Medical times Branch daily with meals. metFORMIN 2019-0 Yes [id number] 1000mg Take 1 Univers 1,000 mg 4-03 [id number] tablet by ity of tablet 00:00: mouth (two) Medical times Branch daily with meals. metFORMIN 2019-0 Yes [id number] 1000mg Take 1 Univers 1,000 mg 4-03 [id number] tablet by ity of tablet 00:00: mouth (two) Medical times Branch daily with meals. metFORMIN 2019-0 Yes [id number] 1000mg Take 1 Univers 1,000 mg 4-03 [id number] tablet by ity of tablet 00:00: mouth (two) Medical times Branch daily with meals. metFORMIN 2019-0 Yes [id number] 1000mg Take 1 Univers 1,000 mg 4-03 [id number] tablet by ity of tablet 00:00: mouth (two) Medical times Branch daily with meals. metFORMIN 2019-0 Yes [id number] 1000mg Take 1 Univers 1,000 mg 4-03 [id number] tablet by ity of tablet 00:00: mouth (two) Medical times Branch daily with meals. metFORMIN 2019-0 Yes [id number] 1000mg Take 1 Univers 1,000 mg 4-03 [id number] tablet by ity of tablet 00:00: mouth (two) Medical times Branch daily with meals. metFORMIN 2019-0 Yes [id number] 1000mg Take 1 Univers 1,000 mg 4-03 [id number] tablet by ity of tablet 00:00: mouth (two) Medical times Branch daily with meals. metFORMIN 2019-0 Yes [id number] 1000mg Take 1 Univers 1,000 mg 4-03 [id number] tablet by ity of tablet 00:00: mouth (two) Medical times Branch daily with meals. metFORMIN 2019-0 Yes [id number] 1000mg Take 1 Univers 1,000 mg 4-03 [id number] tablet by ity of tablet 00:00: mouth (two) Medical times Branch daily with meals. metFORMIN 2019-0 Yes [id number] 1000mg Take 1 [facility] 1,000 mg 4-03 [id number] tablet by ity of tablet 00:00: mouth (two) Medical times Branch daily with meals. metFORMIN 2019-0 Yes [id number] 1000mg Take 1 [facility] 1,000 mg 4-03 [id number] tablet by ity of tablet 00:00: mouth () Medical times Branch daily with meals. metFORMIN 2019-0 Yes [id number] 1000mg Take 1 [facility] 1,000 mg 4-03 [id number] tablet by ity of tablet 00:00: mouth (two) Medical times Branch daily with meals. metFORMIN 2019-0 Yes [id number] 1000mg Take 1 [facility] 1,000 mg 4-03 [id number] tablet by ity of tablet 00:00: mouth (two) Medical times Branch daily with meals. metFORMIN 2019-0 Yes [id number] 1000mg Take 1 [facility] 1,000 mg 4-03 [id number] tablet by ity of tablet 00:00: mouth (two) Medical times Branch daily with meals. metFORMIN 2019-0 Yes [id number] 1000mg Take 1 [facility] 1,000 mg 4-03 [id number] tablet by ity of tablet 00:00: mouth (two) Medical times Branch daily with meals. metFORMIN 2019-0 Yes [id number] 1000mg Take 1 [facility] 1,000 mg 4-03 [id number] tablet by ity of tablet 00:00: mouth (two) Medical times Branch daily with meals. metFORMIN 2019-0 Yes [id number] 1000mg Take 1 [facility] 1,000 mg 4-03 [id number] tablet by ity of tablet 00:00: mouth (two) Medical times Branch daily with meals. metFORMIN 2019-0 Yes [id number] 1000mg Take 1 [facility] 1,000 mg 4-03 [id number] tablet by ity of tablet 00:00: mouth (two) Medical times Branch daily with meals. metFORMIN 2019-0 Yes [id number] 1000mg Take 1 [facility] 1,000 mg 4-03 [id number] tablet by ity of tablet 00:00: mouth (two) Medical times Branch daily with meals. metFORMIN 2019-0 Yes [id number] 1000mg Take 1 [facility] 1,000 mg 4-03 [id number] tablet by ity of tablet 00:00: mouth (two) Medical times [facility] daily with meals. metFORMIN 2019-0 Yes [id number] 1000mg Take 1 [facility] 1,000 mg 4-03 [id number] tablet by ity of tablet 00:00: mouth (two) Medical times Branch daily with meals. metFORMIN 2019-0 Yes [id number] 1000mg Take 1 [facility] 1,000 mg 4-03 [id number] tablet by ity of tablet 00:00: mouth (two) Medical times [facility] daily with meals. metFORMIN 2019-0 Yes [id number] 1000mg Take 1 [facility] 1,000 mg 4-03 [id number] tablet by ity of tablet 00:00: mouth (two) Medical times [facility] daily with meals. metFORMIN 2019-0 Yes [id number] 1000mg Take 1 [facility] 1,000 mg 4-03 [id number] tablet by ity of tablet 00:00: mouth (two) Medical times [facility] daily with meals. metFORMIN 2019-0 Yes [id number] 1000mg Take 1 [facility] 1,000 mg 4-03 [id number] tablet by ity of tablet 00:00: mouth (two) Medical times [facility] daily with meals. metFORMIN 2019-0 Yes [id number] 1000mg Take 1 [facility] 1,000 mg 4-03 [id number] tablet by ity of tablet 00:00: mouth 2 [place] 00 (two) Medical times Branch daily with meals. metFORMIN 2019-0 Yes [id number] 1000mg Take 1 [facility] 1,000 mg 4-03 [id number] tablet by ity of tablet 00:00: mouth (two) Medical times Branch daily with meals. metFORMIN 2019-0 Yes [id number] 1000mg Take 1 [facility] 1,000 mg 4-03 [id number] tablet by ity of tablet 00:00: mouth (two) Medical times Branch daily with meals. metFORMIN 2019-0 Yes [id number] 1000mg Take 1 [facility] 1,000 mg 4-03 [id number] tablet by ity of tablet 00:00: mouth (two) Medical times Branch daily with meals. metFORMIN 2019-0 Yes [id number] 1000mg Take 1 [facility] 1,000 mg 4-03 [id number] tablet by ity of tablet 00:00: mouth (two) Medical times [facility] daily with meals. metFORMIN 2019-0 Yes [id number] 1000mg Take 1 [facility] 1,000 mg 4-03 [id number] tablet by ity of tablet 00:00: mouth (two) Medical times [facility] daily with meals. metFORMIN 2019-0 Yes [id number] 1000mg Take 1 [facility] 1,000 mg 4-03 [id number] tablet by ity of tablet 00:00: mouth (two) Medical times [facility] daily with meals. metFORMIN 2019-0 Yes [id number] 1000mg Take 1 [facility] 1,000 mg 4-03 [id number] tablet by ity of tablet 00:00: mouth (two) Medical times Branch daily with meals. metFORMIN 2019-0 Yes [id number] 1000mg Take 1 [facility] 1,000 mg 4-03 [id number] tablet by ity of tablet 00:00: mouth (two) Medical times Branch daily with meals. metFORMIN 2019-0 Yes [id number] 1000mg Take 1 [facility] 1,000 mg 4-03 [id number] tablet by [facility]y of tablet 00:00: mouth (two) Medical times Branch daily with meals. metFORMIN 2019-0 Yes [id number] 1000mg Take 1 [facility] 1,000 mg 4-03 [id number] tablet by ity of tablet 00:00: mouth (two) Medical times Branch daily with meals. Immunizations Ordered Filled Immunization Date Status Comments [facility] e Immunization Name Name Td 2018-06-29 Completed [facility] 00:00:00 [facility] Td 2018-06-29 Completed [facility] 00:00:00 [facility] Td 2018-06-29 Completed [facility] 00:00:00 [facility] Td 2018-06-29 Completed [facility] 00:00:00 [facility] Td 2018-06-29 Completed [facility] 00:00:00 [facility] Td 2018-06-29 Completed [facility] 00:00:00 [facility] Td 2018-06-29 Completed [facility] 00:00:00 [facility] Td 2018-06-29 Completed [facility] 00:00:00 [facility] Td 2018-06-29 Completed [facility] 00:00:00 [facility] Td 2018-06-29 Completed [facility] 00:00:00 [facility] Td 2018-06-29 Completed [facility] 00:00:00 [facility] Td 2018-06-29 Completed [facility] 00:00:00 [facility] Td 2018-06-29 Completed [facility] 00:00:00 [facility] Td 2018-06-29 Completed [facility] 00:00:00 [facility] Td 2018-06-29 Completed [facility] 00:00:00 [facility] Td 2018-06-29 Completed [facility] 00:00:00 [facility] Td 2018-06-29 Completed [facility] 00:00:00 [facility] Td 2018-06-29 Completed [facility] 00:00:00 [facility] Td 2018-06-29 Completed [facility] 00:00:00 [facility] Td 2018-06-29 Completed [facility] 00:00:00 [facility] Td 2018-06-29 Completed [facility] 00:00:00 [facility] Td 2018-06-29 Completed [facility] 00:00:00 [facility] Td 2018-06-29 Completed [facility] 00:00:00 [facility] Td 2018-06-29 Completed [facility] 00:00:00 [facility] Td 2018-06-29 Completed [facility] 00:00:00 [facility] Td 2018-06-29 Completed [facility] 00:00:00 [facility] Td 2018-06-29 Completed [facility] 00:00:00 [facility] Td 2018-06-29 Completed [facility] 00:00:00 [facility] Td 2018-06-29 Completed [facility] 00:00:00 [facility] Td 2018-06-29 Completed [facility] 00:00:00 [place] [facility] Td 2018-06-29 Completed [facility] 00:00:00 [facility] Td 2018-06-29 Completed [facility] 00:00:00 [facility] Td 2018-06-29 Completed [facility] 00:00:00 [place] [facility] Td 2018-06-29 Completed [facility] 00:00:00 [facility] Td 2018-06-29 Completed [facility] 00:00:00 [facility] Td 2018-06-29 Completed [facility] 00:00:00 [facility] Td 2018-06-29 Completed [facility] 00:00:00 [facility] Td 2018-06-29 Completed [facility] 00:00:00 [facility] Td 2018-06-29 Completed [facility] 00:00:00 [facility] Td 2018-06-29 Completed [facility] 00:00:00 [facility] Td 2018-06-29 Completed [facility] 00:00:00 [facility] Td 2018-06-29 Completed [facility] 00:00:00 [facility] Td 2018-06-29 Completed [facility] 00:00:00 [facility] Td 2018-06-29 Completed [facility] 00:00:00 [facility] Td 2018-06-29 Completed [facility] 00:00:00 [facility] Td 2018-06-29 Completed [facility] 00:00:00 [facility] Td 2018-06-29 Completed [facility] 00:00:00 [facility] Td 2018-06-29 Completed [facility] 00:00:00 [facility] Td 2018-06-29 Completed [facility] 00:00:00 [facility] Td 2018-06-29 Completed [facility] 00:00:00 [facility] Td 2018-06-29 Completed [facility] 00:00:00 [facility] Td 2018-06-29 Completed [facility] 00:00:00 [facility] Td 2018-06-29 Completed [facility] 00:00:00 [facility] Td 2018-06-29 Completed [facility] 00:00:00 [facility] Td 2018-06-29 Completed [facility] 00:00:00 [facility] Td 2018-06-29 Completed [facility] 00:00:00 [facility] Td 2018-06-29 Completed [facility] 00:00:00 [facility] Td 2018-06-29 Completed [facility] 00:00:00 [place] [facility] Td 2018-06-29 Completed [facility] 00:00:00 [facility] Td 2018-06-29 Completed [facility] 00:00:00 [place] [facility] Td 2018-06-29 Completed [facility] 00:00:00 [facility] Td 2018-06-29 Completed [facility] 00:00:00 [facility] Td 2018-06-29 Completed [facility] of 00:00:00 [facility] Vital Signs Vital Name Observation Time Observation Value Comments Source Systolic blood 2022-03-13 22:23:00 176 mm[Hg] [facility] sity of pressure [facility] Diastolic blood 2022-03-13 22:23:00 55 mm[Hg] Unive rsity of pressure [facility] Heart rate 2022-03-13 22:23:00 83 /min [facility] Body temperature 2022-03-13 22:23:00 36.56 [place] [facility] ers[facility] of [place] [facility] Respiratory rate 2022-03-13 22:23:00 16 /min [facility] ersity of [place] [facility] Oxygen saturation in 2022-03-13 22:23:00 96 /min [facility] of Arterial blood by [place] [employer] [facility] Pulse oximetry [facility] Body weight 2022-03-04 23:03:00 71.215 kg [facility] [place] [facility] BMI 2022-03-04 23:03:00 32.81 kg/m2 [facility] [place] [facility] Systolic blood 2022-03-13 15:13:00 131 mm[Hg] [facility] of pressure [facility] Diastolic blood 2022-03-13 15:13:00 50 mm[Hg] Unive rsity of pressure [facility] Heart rate 2022-03-13 15:13:00 82 /min [facility] Body temperature 2022-03-13 15:13:00 36.61 [place] [facility] [place] [facility] Respiratory rate 2022-03-13 15:13:00 18 /min [facility] ers[facility] of [place] [facility] Oxygen saturation in 2022-03-13 15:13:00 98 /min [facility] Arterial blood by [place] [employer] [facility] Pulse oxim[facility] Body weight 2022-03-04 23:03:00 71.215 kg [facility] [place] [facility] BMI 2022-03-04 23:03:00 32.81 kg/m2 [facility] [place] [facility] Systolic blood 2022-03-07 15:00:00 157 mm[Hg] Un[facility] sity of pressure [place] [facility] Diastolic blood 2022-03-07 15:00:00 56 mm[Hg] Unive rsity of pressure [place] [facility] Heart rate 2022-03-07 15:00:00 77 /min [facility] [place] [facility] Body temperature 2022-03-07 15:00:00 36 [place] [facility] [place] [facility] Respiratory rate 2022-03-07 15:00:00 18 /min [facility] ersity of [place] [facility] Oxygen saturation in 2022-03-07 15:00:00 100 /min [facility] of Arterial blood by [employer] P[facility] oximetry [facility] Body weight 2022-03-04 23:03:00 71.215 kg [facility] [place] [facility] BMI 2022-03-04 23:03:00 32.81 kg/m2 [facility] [place] [facility] Systolic blood 2022-02-12 16:11:00 98 mm[Hg] [facility] of pressure [facility] Diastolic blood 2022-02-12 16:11:00 37 mm[Hg] Unive rsity of pressure [place] [facility] Heart rate 2022-02-12 16:11:00 105 /min [facility] [place] [facility] Body temperature 2022-02-12 16:11:00 35.72 [place] [facility] [place] [facility] Body height 2022-02-12 16:11:00 147.3 cm [facility] [place] [facility] Body weight 2022-02-12 16:11:00 72.757 kg [facility] [place] [facility] BMI 2022-02-12 16:11:00 33.52 kg/m2 [facility] [place] [facility] Systolic blood 2022-02-06 01:56:00 159 mm[Hg] Un[facility] sity of pressure [place] [facility] Diastolic blood 2022-02-06 01:56:00 74 mm[Hg] Unive rsity of pressure [place] [facility] Heart rate 2022-02-06 01:56:00 91 /min [facility] [place] [facility] Respiratory rate 2022-02-06 01:56:00 16 /min Univ ersity of [facility] Oxygen saturation in 2022-02-06 01:56:00 99 /min [facility] of Arterial blood by [employer] [facility] Pulse oximetry Branch Body temperature 2022-02-05 22:19:00 37 [place] [facility] [place] [facility] Body weight 2022-02-05 22:19:00 73.936 kg [facility] [place] [facility] BMI 2022-02-05 22:19:00 29.81 kg/m2 [facility] [place] [facility] Systolic blood 2022-01-14 16:43:00 172 mm[Hg] [facility] of pressure [facility] Diastolic blood 2022-01-14 16:43:00 90 mm[Hg] Unive rsity of pressure [facility] Heart rate 2022-01-14 16:43:00 99 /min [facility] Body temperature 2022-01-14 16:43:00 36.61 [place] [facility] [place] [facility] Respiratory rate 2022-01-14 16:43:00 18 /min [facility] ers[facility] Body height 2022-01-14 16:43:00 157.5 cm [facility] Body weight 2022-01-14 16:43:00 76.204 kg [facility] BMI 2022-01-14 16:43:00 30.73 kg/m2 [facility] Oxygen saturation in 2022-01-14 16:43:00 98 /min [facility] of Arterial blood by [facility] Pulse oximetry Branch Systolic blood 2021-12-25 16:51:12 136 mm[Hg] Univer sity of pressure [facility] Diastolic blood 2021-12-25 16:51:12 105 mm[Hg] Unive rsity of pressure [facility] Heart rate 2021-12-25 16:51:12 96 /min [facility] Oxygen saturation in 2021-12-25 16:51:12 98 /min [facility] of Arterial blood by [facility] Pulse oximetry Branch Body temperature 2021-12-25 14:07:00 37.56 [place] [facility] Respiratory rate 2021-12-25 14:07:00 22 /min [facility] Body weight 2021-12-25 14:07:00 76.204 kg [facility] BMI 2021-12-25 14:07:00 30.73 kg/m2 [facility] Systolic blood 2020-07-17 14:33:00 162 mm[Hg] Un[facility] s[facility] of pressure [facility] Diastolic blood 2020-07-17 14:33:00 64 mm[Hg] Unive rsity of pressure [facility] Heart rate 2020-07-17 14:33:00 79 /min [facility] Body temperature 2020-07-17 14:30:00 36.72 [place] [facility] Respiratory rate 2020-07-17 14:30:00 20 /min Univ ers[facility] Body height 2020-07-17 14:30:00 157.5 cm [facility] Body weight 2020-07-17 14:30:00 68.947 kg [facility] BMI 2020-07-17 14:30:00 27.80 kg/m2 [facility] [place] Systolic blood 2020-06-15 13:45:00 186 mm[Hg] Univer sity of pressure [facility] Diastolic blood 2020-06-15 13:45:00 70 mm[Hg] Unive rsity of pressure [facility] Heart rate 2020-06-15 13:45:00 86 /min [facility] Body temperature 2020-06-15 13:45:00 36.56 [place] [facility] Respiratory rate 2020-06-15 13:45:00 18 /min Univ ersity [facility] Body height 2020-06-15 13:45:00 152.4 cm [facility] Body weight 2020-06-15 13:45:00 70.126 kg [facility] BMI 2020-06-15 13:45:00 30.19 kg/m2 [facility]i ty of [facility] Oxygen saturation in 2020-06-15 13:45:00 99 /min [facility] of Arterial blood by [facility] Pulse oximetry Branch Systolic blood 2020-03-13 16:50:00 154 mm[Hg] Univer sity of pressure [facility] Diastolic blood 2020-03-13 16:50:00 78 mm[Hg] Unive rsity of pressure [facility] Heart rate 2020-03-13 16:49:00 81 /min [facility] Body temperature 2020-03-13 16:49:00 36.39 [place] [facility] ers[facility] of [facility] Respiratory rate 2020-03-13 16:49:00 18 /min Univ ersity of [facility] Body height 2020-03-13 16:49:00 152.4 cm [facility]i [facility] of [facility] Body weight 2020-03-13 16:49:[address] [facility] BMI 2020-03-13 16:49:00 28.69 kg/m2 [facility]i ty of [facility] Systolic blood 2020-02-10 15:29:00 195 mm[Hg] Univer sity of pressure [facility] Diastolic blood 2020-02-10 15:29:00 89 mm[Hg] Unive rsity of pressure [facility] Heart rate 2020-02-10 15:29:00 84 /min [facility]i ty of [facility] Body temperature 2020-02-10 15:27:00 36.83 [place] [facility] ersity of [facility] Respiratory rate 2020-02-10 15:27:00 20 /min Univ ersity of [facility] Body height 2020-02-10 15:27:00 152.4 cm [facility]i ty of [facility] Body weight 2020-02-10 15:27:[address] [address] [facility] BMI 2020-02-10 15:27:00 28.44 kg/m2 [facility]i ty of [facility] Oxygen saturation in 2020-02-10 15:27:00 98 /min [facility] of Arterial blood by [facility] Pulse oximetry Branch Systolic blood 2020-01-13 13:57:00 154 mm[Hg] Univer sity of pressure [facility] Diastolic blood 2020-01-13 13:57:00 78 mm[Hg] Unive rsity of pressure [facility] Heart rate 2020-01-13 13:55:00 80 /min [facility]i ty of [facility] Body temperature 2020-01-13 13:55:00 36.44 [place] [facility] ersity of [facility] Respiratory rate 2020-01-13 13:55:00 18 /min Univ ersity of [facility] Body weight 2020-01-13 13:55:00 65.772 kg [facility]i ty of [facility] BMI 2020-01-13 13:55:00 28.32 kg/m2 [facility]i ty of [facility] Systolic blood 2019-12-20 20:50:00 132 mm[Hg] Univer sity of pressure [facility] Diastolic blood 2019-12-20 20:50:00 75 mm[Hg] Unive rsity of pressure [place] [facility] Heart rate 2019-12-20 20:50:00 77 /min [facility] Body temperature 2019-12-20 20:50:00 36.67 [place] [facility] [place] [facility] Respiratory rate 2019-12-20 20:50:00 18 /min [facility] ers[facility] Body weight 2019-12-20 20:50:00 66.225 kg [facility] [place] [facility] BMI 2019-12-20 20:50:00 28.51 kg/m2 [facility] Oxygen saturation in 2019-12-20 20:50:00 97 /min [facility] of Arterial blood by [facility] Pulse oximetry Branch Systolic blood 2019-12-20 15:20:00 190 mm[Hg] Univer sity of pressure [facility] Diastolic blood 2019-12-20 15:20:00 88 mm[Hg] Unive rsity of pressure [facility] Heart rate 2019-12-20 15:20:00 80 /min [facility] Body temperature 2019-12-20 15:04:00 36.5 [place] [facility] [place] [facility] Respiratory rate 2019-12-20 15:04:00 20 /min [facility] Body height 2019-12-20 15:04:00 152.4 cm [facility] Body weight 2019-12-20 15:04:00 66.225 kg [facility] [place] [facility] BMI 2019-12-20 15:04:00 28.51 kg/m2 [facility] Oxygen saturation in 2019-12-20 15:04:00 98 /min [facility] of Arterial blood by [facility] shade Pulse oximetry Branch Systolic blood 2019-12-07 22:00:00 144 mm[Hg] Univer sity of pressure [facility] Diastolic blood 2019-12-07 22:00:00 88 mm[Hg] Unive rsity of pressure [place] [facility] Heart rate 2019-12-07 22:00:00 78 /min [facility] Body temperature 2019-12-07 22:00:00 36.33 [place] [facility] [place] [facility] Respiratory rate 2019-12-07 22:00:00 18 /min Univ ers[facility] [place] [facility] Oxygen saturation in 2019-12-07 22:00:00 98 /min [facility] of Arterial blood by [facility] Pulse oximetry Branch Body weight 2019-12-01 08:35:00 66.497 kg [facility] [place] [facility] BMI 2019-12-01 08:35:00 24.40 kg/m2 [facility] [place] [facility] Systolic blood 2022-03-11 16:55:00 178 mm[Hg] Univer sity of pressure [place] [facility] Diastolic blood 2022-03-11 16:55:00 75 mm[Hg] Unive rsity of pressure [facility] Heart rate 2022-03-11 16:55:00 70 /min [facility] [place] [facility] Body temperature 2022-03-11 16:55:00 36.61 [place] [facility] [place] [facility] Respiratory rate 2022-03-11 16:55:00 18 /min Univ ersity [facility] [place] [facility] Oxygen saturation in 2022-03-11 16:55:00 94 /min [facility] of Arterial blood by [facility] Pulse oximetry Branch Systolic blood 2022-03-10 16:55:00 107 mm[Hg] Univer sity of pressure [place] [facility] Diastolic blood 2022-03-10 16:55:00 40 mm[Hg] Unive rsity of pressure [facility] Heart rate 2022-03-10 16:55:00 71 /min [facility] [place] [facility] Body temperature 2022-03-10 16:55:00 37.67 [place] [facility] [place] [facility] Respiratory rate 2022-03-10 16:55:00 18 /min [facility] [place] [facility] Oxygen saturation in 2022-03-10 16:55:00 96 /min [facility] of Arterial blood by [facility] Pulse oximetry Branch Body weight 2022-03-04 23:03:00 71.215 kg [facility] [place] [facility] BMI 2022-03-04 23:03:00 32.81 kg/m2 [facility] [place] [facility] Body height 2022-02-12 16:11:00 147.3 cm [facility] [place] [facility] BP Systolic 2022-02-04 14:36:00 139 [...] Date / Time Performing Clinician Source Performed POCT GLUCOSE (AUTOMATED) 2022-03-13 22:21:00 Dheeraj Panda [facility] POCT GLUCOSE (AUTOMATED) 2022-03-13 22:21:00 Dheeraj Panda [facility] POCT GLUCOSE (AUTOMATED) 2022-03-13 20:03:00 Dheeraj Panda [facility] POCT GLUCOSE (AUTOMATED) 2022-03-13 20:03:00 Dheeraj Panda [facility] FL TIME OR 2022-03-13 18:06:00 [facility] (NON-REPORTABLE) [facility] [place] TIME OR 2022-03-13 18:06:00 [facility] (NON-REPORTABLE) [facility] RAY RESECTION 2022-03-13 15:45:00 [facility] NERVE BLOCK 2022-03-13 15:39:42 Liz Bynum [facility] POCT GLUCOSE (AUTOMATED) 2022-03-13 15:14:00 Dheeraj Panda [facility] POCT GLUCOSE (AUTOMATED) 2022-03-13 15:14:00 Dheeraj Panda [facility] POCT GLUCOSE (AUTOMATED) 2022-03-13 15:05:00 Dheeraj Panda [facility] POCT GLUCOSE (AUTOMATED) 2022-03-13 15:05:00 Dheeraj Panda [facility] POCT GLUCOSE (AUTOMATED) 2022-03-13 03:44:00 Dheeraj Panda [facility] POCT GLUCOSE (AUTOMATED) 2022-03-13 03:44:00 Dheeraj Panda [facility] POCT GLUCOSE (AUTOMATED) 2022-03-12 22:24:00 Dheeraj Panda [facility] POCT GLUCOSE (AUTOMATED) 2022-03-12 22:24:00 Dheeraj Panda [facility] POCT GLUCOSE (AUTOMATED) 2022-03-12 17:43:00 Dheeraj Panda [facility] POCT GLUCOSE (AUTOMATED) 2022-03-12 17:43:00 Dheeraj Panda [facility] POCT GLUCOSE (AUTOMATED) 2022-03-12 13:35:00 Dheeraj Panda [facility] POCT GLUCOSE (AUTOMATED) 2022-03-12 13:35:00 Dheeraj Panda [facility] POCT GLUCOSE (AUTOMATED) 2022-03-12 02:57:00 Dheeraj Panda [facility] POCT GLUCOSE (AUTOMATED) 2022-03-12 02:57:00 Dheeraj Panda [facility] POCT GLUCOSE (AUTOMATED) 2022-03-11 22:03:00 Dheeraj Panda [facility] POCT GLUCOSE (AUTOMATED) 2022-03-11 22:03:00 Dheeraj Panda [facility] POCT GLUCOSE (AUTOMATED) 2022-03-11 19:02:00 Dheeraj Panda [facility] POCT GLUCOSE (AUTOMATED) 2022-03-11 19:02:00 Dheeraj Panda [facility] POCT GLUCOSE (AUTOMATED) 2022-03-11 19:02:00 Dheeraj Panda [facility] POCT GLUCOSE (AUTOMATED) 2022-03-11 13:24:00 Dheeraj Panda [facility] POCT GLUCOSE (AUTOMATED) 2022-03-11 13:24:00 Dheeraj Panda [facility] POCT GLUCOSE (AUTOMATED) 2022-03-11 13:24:00 Dheeraj Panda [facility] POCT GLUCOSE (AUTOMATED) 2022-03-11 02:40:00 Dheeraj Panda [facility] POCT GLUCOSE (AUTOMATED) 2022-03-11 02:40:00 Dheeraj Panda K [facility] POCT GLUCOSE (AUTOMATED) 2022-03-11 02:40:00 DenisDonnakristian Oliveros [facility] POCT GLUCOSE (AUTOMATED) 2022-03-10 23:19:00 DenisDonnay Domo [facility] POCT GLUCOSE (AUTOMATED) 2022-03-10 23:19:00 Denis Dheeraj Oliveros [facility] POCT GLUCOSE (AUTOMATED) 2022-03-10 23:19:00 DenisDonnay Domo [facility] POCT GLUCOSE (AUTOMATED) 2022-03-10 18:22:00 De Paz Bunny [facility] POCT GLUCOSE (AUTOMATED) 2022-03-10 18:22:00 De Paz Bunny [facility] POCT GLUCOSE (AUTOMATED) 2022-03-10 18:22:00 De Paz Bunny [facility] POCT GLUCOSE (AUTOMATED) 2022-03-10 18:22:00 De Paz Bunny [facility] POCT GLUCOSE (AUTOMATED) 2022-03-10 13:29:00 De Paz, Bunny Uni [facility] of [facility] POCT GLUCOSE (AUTOMATED) 2022-03-10 13:29:00 De Paz, Bunny [facility] POCT GLUCOSE (AUTOMATED) 2022-03-10 13:29:00 De Paz Bunny [facility] [place] [facility] POCT GLUCOSE (AUTOMATED) 2022-03-10 13:29:00 De Paz Bunny [facility] [place] [facility] POCT GLUCOSE (AUTOMATED) 2022-03-10 01:52:00 De Paz Bunny [facility] [place] [facility] POCT GLUCOSE (AUTOMATED) 2022-03-10 01:52:00 De Paz Bunny [facility] POCT GLUCOSE (AUTOMATED) 2022-03-10 01:52:00 De Paz, Bunny [facility] [place] [facility] POCT GLUCOSE (AUTOMATED) 2022-03-10 01:52:00 De Paz, Bunny [facility] POCT GLUCOSE (AUTOMATED) 2022-03-09 23:33:00 De Paz, Bunny [facility] POCT GLUCOSE (AUTOMATED) 2022-03-09 23:33:00 De PazBunny [facility] POCT GLUCOSE (AUTOMATED) 2022-03-09 23:33:00 De Paz, Bunny [facility] POCT GLUCOSE (AUTOMATED) 2022-03-09 23:33:00 De PazBunny [facility] POCT GLUCOSE (AUTOMATED) 2022-03-09 17:28:00 De Paz, Bunny [facility] POCT GLUCOSE (AUTOMATED) 2022-03-09 17:28:00 De Paz, Bunny [facility] POCT GLUCOSE (AUTOMATED) 2022-03-09 17:28:00 De Paz, Bunny [facility] POCT GLUCOSE (AUTOMATED) 2022-03-09 17:28:00 De Paz, Bunny [facility] POCT GLUCOSE (AUTOMATED) 2022-03-09 13:36:00 De Paz, Bunny [facility] POCT GLUCOSE (AUTOMATED) 2022-03-09 13:36:00 De Paz, Bunny [facility] POCT GLUCOSE (AUTOMATED) 2022-03-09 13:36:00 De Paz, Bunny [facility] POCT GLUCOSE (AUTOMATED) 2022-03-09 13:36:00 De Paz, [facility] CBC WITH DIFF 2022-03-09 10:49:00 Deann [facility] MAGNESIUM 2022-03-09 10:49:00 Deann [facility] BASIC METABOLIC PANEL 2022-03-09 10:49:00 Deann [facility] (NA, K, CL, CO2, GLUCOSE, Medica l Branch BUN, CREATININE, CA) PROTHROMBIN TIME / INR 2022-03-09 10:49:00 Deann radha [facility] MAGNESIUM 2022-03-09 10:49:00 Deann [facility] BASIC METABOLIC PANEL 2022-03-09 10:49:00 Deann [facility] (NA, K, CL, CO2, GLUCOSE, Medica l Branch BUN, CREATININE, CA) CBC WITH DIFF 2022-03-09 10:49:00 [facility] / [facility]R 2022-03-09 10:49:00 Jessi Zacarias [facility] MAGNESIUM 2022-03-09 10:49:00 Deann [facility] BASIC METABOLIC PANEL 2022-03-09 10:49:00 Deann [facility] (NA, K, CL, CO2, GLUCOSE, Medica l Branch BUN, CREATININE, CA) CBC WITH DIFF 2022-03-09 10:49:00 Deann [facility] PROTHROMBIN TIME / INR 2022-03-09 10:49:00 Deann [facility] MAGNESIUM 2022-03-09 10:49:00 Deann [facility] BASIC METABOLIC PANEL 2022-03-09 10:49:00 Deann [facility] (NA, K, CL, CO2, GLUCOSE, Medica l Branch BUN, CREATININE, CA) CBC WITH DIFF 2022-03-09 10:49:00 Deann [facility] PROTHROMBIN TIME / INR 2022-03-09 10:49:00 Jessi Zacarias [facility] POCT GLUCOSE (AUTOMATED) 2022-03-09 02:22:00 De PazBunny [facility] POCT GLUCOSE (AUTOMATED) 2022-03-09 02:22:00 De PazBunny [facility] POCT GLUCOSE (AUTOMATED) 2022-03-09 02:22:00 De PazBunny [facility] POCT GLUCOSE (AUTOMATED) 2022-03-09 02:22:00 De PazBunny [facility] POCT GLUCOSE (AUTOMATED) 2022-03-08 21:51:00 De PazBunny [facility] POCT GLUCOSE (AUTOMATED) 2022-03-08 21:51:00 De PazBunny [facility] POCT GLUCOSE (AUTOMATED) 2022-03-08 21:51:00 De PazBunny [employer] POCT GLUCOSE (AUTOMATED) 2022-03-08 21:51:00 Bunny [facility] 2022-03-08 21:38:00 Gabbi [facility] HB ABO GROUPING 2022-03-08 21:38:00 Gabbi [facility] HB ABO GROUPING 2022-03-08 21:38:00 Gabbi [facility] HB ABO GROUPING 2022-03-08 21:38:00 Gabbi [facility] POCT GLUCOSE (AUTOMATED) 2022-03-08 17:21:00 De Paz, Bunny [facility] POCT GLUCOSE (AUTOMATED) 2022-03-08 17:21:00 De Paz, Bunny [facility] POCT GLUCOSE (AUTOMATED) 2022-03-08 17:21:00 De Paz, Bunny [facility] POCT GLUCOSE (AUTOMATED) 2022-03-08 17:21:00 De Paz Bunny [facility] PO[facility]SE (AUTOMATED) 2022-03-08 13:28:00 De Paz, Bunny [facility] POCT GLUCOSE (AUTOMATED) 2022-03-08 13:28:00 De Paz, Bunny [facility] POCT GLUCOSE (AUTOMATED) 2022-03-08 13:28:00 De Paz, Bunny [facility] POCT GLUCOSE (AUTOMATED) 2022-03-08 13:28:00 De Paz, [facility] PO[facility]SE (AUTOMATED) 2022-03-08 12:23:00 De Paz, [facility]unny [facility] POCT GLUCOSE (AUTOMATED) 2022-03-08 12:23:00 De Paz, Bunny [facility] POCT GLUCOSE (AUTOMATED) 2022-03-08 12:23:00 De Paz, [facility] PO[facility]SE (AUTOMATED) 2022-03-08 12:23:00 De Paz, [facility] CBC WITHOUT DIFF 2022-03-08 10:31:00 Navdeep Rodriguez [facility] BASIC METABOLIC PANEL 2022-03-08 10:31:[address] [facility], K, CL, CO2, GLUCOSE, Medica l Branch BUN, CREATININE, CA) MAGNESIUM 2022-03-08 10:31:00 Jennifer [facility] MAGNESIUM 2022-03-08 10:31:00 Rodriguez [facility] BASIC METABOLIC PANEL 2022-03-08 10:31:00 [facility] (NA, K, CL, CO2, GLUCOSE, Medica l Branch BUN, CREATININE, CA) CBC WITHOUT DIFF 2022-03-08 10:31:00 Jennifer [facility] MAGNESIUM 2022-03-08 10:31:00 [facility] 2022-03-08 10:31:[address] [facility] (NA, K, CL, CO2, GLUCOSE, Medica l Branch BUN, CREATININE, CA) CBC WITHOUT DIFF 2022-03-08 10:31:00 Jennifer [facility] MAGNESIUM 2022-03-08 10:31:00 [facility] PANEL 2022-03-08 10:31:00 Rodriguez, [facility] (NA, K, CL, CO2, GLUCOSE, Medica l Branch BUN, CREATININE, CA) CBC WITHOUT DIFF 2022-03-08 10:31:00 Jennifer [facility] POCT GLUCOSE (AUTOMATED) 2022-03-08 02:33:00 Bunny De Paz [facility] POCT GLUCOSE (AUTOMATED) 2022-03-08 02:33:00 Bunny De Paz [facility] POCT GLUCOSE (AUTOMATED) 2022-03-08 02:33:00 Bunny De [facility]az [facility] POCT GLUCOSE (AUTOMATED) 2022-03-08 02:33:00 Bunny De [facility]az [facility] POCT GLUCOSE (AUTOMATED) 2022-03-07 23:54:00 Bunny De [facility]az [facility] POCT GLUCOSE (AUTOMATED) 2022-03-07 23:54:00 [facility]SE (AUTOMATED) 2022-03-07 23:54:00 De Paz, Bunny [facility] POCT GLUCOSE (AUTOMATED) 2022-03-07 23:54:00 De Paz, [facility]unny [facility] PO[facility]UCOSE (AUTOMATED) 2022-03-07 18:33:00 De Paz Bunny [facility] PO[facility]UCOSE (AUTOMATED) 2022-03-07 18:33:00 De Paz Bunny [facility] PO[facility]SE (AUTOMATED) 2022-03-07 18:33:00 De Paz, Bunny [facility] PO[facility]SE (AUTOMATED) 2022-03-07 18:33:00 Venecia Bunny [facility] FL TIME OR 2022-03-07 14:52:00 Jose [facility] (NON-REPORTABLE) [facility]ly [facility] FL TIME OR 2022-03-07 14:52:00 Jose [facility] (NON-REPORTABLE) [facility] FL TIME OR 2022-03-07 14:52:00 [facility] (NON-REPORTABLE) [facility] FL TIME OR 2022-03-07 14:52:00 [facility] (NON-REPORTABLE) [facility] INTUBATION 2022-03-07 13:25:00 Brittany Mckinney [facility] ARTERIOGRAM 2022-03-07 12:56:00 [facility] ARTERIOGRAM 2022-03-07 12:56:00 Nere[facility] ARTERIOGRAM 2022-03-07 12:56:00 Nereida [facility] POCT GLUCOSE (AUTOMATED) 2022-03-07 11:54:00 Venecia [facility]unny [facility] PO[facility]SE (AUTOMATED) 2022-03-07 11:54:00 Venecia [facility]unny [facility] POCT GLUCOSE (AUTOMATED) 2022-03-07 11:54:00 Venecia Bunny [facility] POCT GLUCOSE (AUTOMATED) 2022-03-07 11:54:00 Bunny De Paz [facility] CBC WITHOUT DIFF 2022-03-07 10:50:00 Jennifer [facility] BASIC METABOLIC PANEL 2022-03-07 10:50:[address] [facility] (NA, K, CL, CO2, GLUCOSE, Medica l Branch BUN, CREATININE, CA) MAGNESIUM 2022-03-07 10:50:00 Jennifer [facility] MAGNESIUM 2022-03-07 10:50:00 [facility] BASIC MET[facility]OLIC PANEL 2022-03-07 10:50:00 Rodriguez, [facility] (NA, K, CL, CO2, GLUCOSE, Medica l Branch BUN, CREATININE, CA) CBC WITHOUT DIFF 2022-03-07 10:50:00 Jennifer [facility] MAGNESIUM 2022-03-07 10:50:00 Jennifer [facility] BASIC METABOLIC PANEL 2022-03-07 10:50:[address] [facility] (NA, K, CL, CO2, GLUCOSE, Medica l Branch BUN, CREATININE, CA) CBC WITHOUT DIFF 2022-03-07 10:50:00 Jennifer [facility] MAGNESIUM 2022-03-07 10:50:00 Jennifer [facility] BASIC METABOLIC PANEL 2022-03-07 10:50:[address] [facility] (NA, K, CL, CO2, GLUCOSE, Medica l Branch BUN, CREATININE, CA) CBC WITHOUT DIFF 2022-03-07 10:50:00 Jennifer [facility] HB ECG ROUTINE & RHYTHM 2022-03-07 03:18:16 [facility] RHYTHM 2022-03-07 03:18:16 Brittany Mckinney Un [facility] POCT GLUCOSE (AUTOMATED) 2022-03-07 02:35:00 Bunny De Paz [facility] [place] [facility] POCT GLUCOSE (AUTOMATED) 2022-03-07 02:35:00 De Paz, Bunny [facility] [place] [facility] POCT GLUCOSE (AUTOMATED) 2022-03-07 02:35:00 De Paz, Bunny [facility] POCT GLUCOSE (AUTOMATED) 2022-03-07 02:35:00 De Paz, Bunny [facility] POCT GLUCOSE (AUTOMATED) 2022-03-07 00:28:00 De Paz, Bunny [facility] [place] [facility] POCT GLUCOSE (AUTOMATED) 2022-03-07 00:28:00 De Paz, Bunny [facility] [place] [facility] POCT GLUCOSE (AUTOMATED) 2022-03-07 00:28:00 De Paz, Bunny [facility] POCT GLUCOSE (AUTOMATED) 2022-03-07 00:28:00 De Paz, Bunny [facility] [place] [facility] POCT GLUCOSE (AUTOMATED) 2022-03-06 19:34:00 De Paz, Bunny [facility] [place] [facility] POCT GLUCOSE (AUTOMATED) 2022-03-06 19:34:00 De Paz, Bunny [facility] [place] [facility] POCT GLUCOSE (AUTOMATED) 2022-03-06 19:34:00 De Paz, Bunny [facility] [place] [facility] POCT GLUCOSE (AUTOMATED) 2022-03-06 19:34:00 De Paz, Bunny [facility] [place] [facility] POCT GLUCOSE (AUTOMATED) 2022-03-06 15:36:00 De Paz, Bunny [facility] [place] [facility] POCT GLUCOSE (AUTOMATED) 2022-03-06 15:36:00 De Paz, Bunny [facility] [place] [facility] POCT GLUCOSE (AUTOMATED) 2022-03-06 15:36:00 De Paz, Bunny [facility] [place] [facility] POCT GLUCOSE (AUTOMATED) 2022-03-06 15:36:00 De Paz, Bunny [facility] of [facility] BAMBI MULTI LEVEL - BY 2022-03-06 14:46:[address] [facility] VASCULAR LAB Medical Branch BAMBI MULTI LEVEL - BY 2022-03-06 14:46:[address] [facility] VASCULAR LAB Medical Branch BAMBI MULTI LEVEL - BY 2022-03-06 14:46:32 Deann Bella [facility] [place] [facility] BAMBI MULTI LEVEL - BY 2022-03-06 14:46:32 Deann Bella [facility] [place] [facility] DUPLEX ARTERIAL ARM LEFT 2022-03-06 14:46:24 Deann Bella [facility] [place] - BY VASCULAR LAB Medical Branch DUPLEX ARTERIAL ARM LEFT 2022-03-06 14:46:24 Deann Bella [facility] [place] - BY VASCULAR LAB Medical Branch DUPLEX ARTERIAL ARM LEFT 2022-03-06 14:46:24 Deann Bella [facility] [place] - BY VASCULAR LAB Medical Branch DUPLEX ARTERIAL ARM LEFT 2022-03-06 14:46:24 Deann Bella [facility] [place] - BY VASCULAR LAB Medical Branch POCT GLUCOSE (AUTOMATED) 2022-03-06 02:51:00 De Paz, Bunny [facility] [place] [facility] POCT GLUCOSE (AUTOMATED) 2022-03-06 02:51:00 De Paz, Bunny [facility] [place] [facility] POCT GLUCOSE (AUTOMATED) 2022-03-06 02:51:00 De Paz, Bunny [facility] [place] [facility] POCT GLUCOSE (AUTOMATED) 2022-03-06 02:51:00 De Paz, Bunny [facility] [place] [facility] POCT GLUCOSE (AUTOMATED) 2022-03-05 23:41:00 De Paz, Bunny [facility] [place] [facility] POCT GLUCOSE (AUTOMATED) 2022-03-05 23:41:00 De Paz, Bunny [facility] [place] [facility] POCT GLUCOSE (AUTOMATED) 2022-03-05 23:41:00 De Paz, Bunny [facility] [place] [facility] POCT GLUCOSE (AUTOMATED) 2022-03-05 23:41:00 De Paz, Bunny Uni [facility] of [facility] MRSA / MSSA SCREEN BY 2022-03-05 22:10:00 Jessi Zacarias [facility] [place] PCR, [facility] Medical Branch MRSA / MSSA SCREEN BY 2022-03-05 22:10:00 Jessi Zacarias [facility] sity [facility] PCR, [facility] Medical Branch MRSA / MSSA SCREEN BY 2022-03-05 22:10:00 Jessi Zacarias [facility] sity [facility] PCR, [facility] Medical Branch MRSA / MSSA SCREEN BY 2022-03-05 22:10:00 Jessi Zacarias [facility] PCR, [facility] POCT GLUCOSE (AUTOMATED) 2022-03-05 19:03:00 De Paz, Bunny [facility] POCT GLUCOSE (AUTOMATED) 2022-03-05 19:03:00 De Paz, Bunny [facility] POCT GLUCOSE (AUTOMATED) 2022-03-05 19:03:00 De Paz, [facility] POCT GLUCOSE (AUTOMATED) 2022-03-05 19:03:00 De Paz, [facility] POCT GLUCOSE (AUTOMATED) 2022-03-05 15:55:00 De Paz, [facility] POCT GLUCOSE (AUTOMATED) 2022-03-05 15:55:00 De Paz, [facility] POCT GLUCOSE (AUTOMATED) 2022-03-05 15:55:00 De Paz, [facility] POCT GLUCOSE (AUTOMATED) 2022-03-05 15:55:00 De Paz, [facility] CBC WITH DIFF 2022-03-05 11:12:00 [facility] BASIC METABOLIC PANEL 2022-03-05 11:12:00 Bill [facility] (NA, K, CL, CO2, GLUCOSE, Medica l Branch BUN, CREATININE, CA) MAGNESIUM 2022-03-05 11:12:00 [facility] SEDIMENTATION RATE 2022-03-05 11:12:00 Jennifer [facility] C-REACTIVE PROTEIN 2022-03-05 11:12:00 Jennifer [facility] MAGNESIUM 2022-03-05 11:12:00 [facility] C-REACTIVE PROTEIN 2022-03-05 11:12:00 Jennifer [facility] BASIC METABOLIC PANEL 2022-03-05 11:12:00 [facility] (NA, K, CL, CO2, GLUCOSE, Medica l Branch BUN, CREATININE, CA) SEDIMENTATION RATE 2022-03-05 11:12:00 Jennifer [facility] CBC WITH DIFF 2022-03-05 11:12:00 Billchata [facility] MAGNESIUM 2022-03-05 11:12:00 Bill [facility] C-REACTIVE PROTEIN 2022-03-05 11:12:00 Jennifer [facility] BASIC METABOLIC PANEL 2022-03-05 11:12:00 Bill [facility] (NA, K, CL, CO2, GLUCOSE, Medica l Branch BUN, CREATININE, CA) SEDIMENTATION RATE 2022-03-05 11:12:00 Jennifer [facility] CBC WITH DIFF 2022-03-05 11:12:00 Shayne [facility] MAGNESIUM 2022-03-05 11:12:00 Shayne [facility] C-REACTIVE PROTEIN 2022-03-05 11:12:00 Jennifer [facility] BASIC METABOLIC PANEL 2022-03-05 11:12:00 [facility] (NA, K, CL, CO2, GLUCOSE, Medica l Branch BUN, CREATININE, CA) SEDIMENTATION RATE 2022-03-05 11:12:00 Jennifer Jennie [facility] CBC WITH DIFF 2022-03-05 11:12:00 Bill [facility] CBC WITH DIFF 2022-03-05 03:21:00 Shayne [facility] BASIC METABOLIC PANEL 2022-03-05 03:21:00 Shayne [facility] (NA, K, CL, CO2, GLUCOSE, Medica l Branch BUN, CREATININE, CA) HEPATIC FUNCTION PANEL 2022-03-05 03:21:00 Deann Bella [facility] ([id number]) (ALB,T.PRO,BILI Medical Branch T,BU/BC,ALT,AST,ALK PHOS) PROTHROMBIN TIME / INR 2022-03-05 03:21:00 Deann Bella [facility] BLOOD CULTURE SCREEN 2022-03-05 03:21:00 [facility]22-03-05 03:21:00 Sali [facility] BLOOD CULTURE SCREEN 2022-03-05 03:21:00 Shayne [facility] MAGNESIUM 2022-03-05 03:21:00 [facility] HEPATIC FUNCTION PANEL 2022-03-05 03:21:00 [facility] ([id number]) (ALB,T.PRO,BILI Medical Branch T,BU/BC,ALT,AST,ALK PHOS) BASIC METABOLIC PANEL 2022-03-05 03:21:00 [facility] (NA, K, CL, CO2, GLUCOSE, Medica l Branch BUN, CREATININE, CA) CBC WITH DIFF 2022-03-05 03:21:00 [facility] PROTHROMBIN TIME / INR 2022-03-05 03:21:00 [facility] BLOOD CULTURE SCREEN 2022-03-05 03:21:00 [facility] MAGNESIUM 2022-03-05 03:21:00 [facility] HEPATIC FUNCTION PANEL 2022-03-05 03:21:00 [facility] ([id number]) (ALB,T.PRO,BILI Medical Branch T,BU/BC,ALT,AST,ALK PHOS) BASIC METABOLIC PANEL 2022-03-05 03:21:00 [facility] (NA, K, CL, CO2, GLUCOSE, Medica l Branch BUN, CREATININE, CA) CBC WITH DIFF 2022-03-05 03:21:00 [facility] PROTHROMBIN TIME / INR 2022-03-05 03:21:00 [facility] BLOOD CULTURE SCREEN 2022-03-05 03:21:00 [facility] MAGNESIUM 2022-03-05 03:21:00 Sali [facility] HEPATIC FUNCTION PANEL 2022-03-05 03:21:00 [facility] ([id number]) (ALB,T.PRO,BILI Medical Branch T,BU/BC,ALT,AST,ALK PHOS) BASIC METABOLIC PANEL 2022-03-05 03:21:00 Shayne [facility] (NA, K, CL, CO2, GLUCOSE, Medica l Branch BUN, CREATININE, CA) CBC WITH DIFF 2022-03-05 03:21:00 [facility] PROTHROMBIN TIME / INR 2022-03-05 03:21:00 [facility] GLYCOSYLATED HEMOGLOBIN 2022-03-05 03:20:00 [facility] (A1C) [facility] GLYCOSYLATED HEMOGLOBIN 2022-03-05 03:20:00 [facility] (A1C) [facility] GLYCOSYLATED HEMOGLOBIN 2022-03-05 03:20:00 [facility] (A1C) [facility] GLYCOSYLATED HEMOGLOBIN 2022-03-05 03:20:00 [facility] (A1C) [facility] POCT GLUCOSE (AUTOMATED) 2022-03-05 02:51:00 Bunny De Paz [facility] POCT GLUCOSE (AUTOMATED) 2022-03-05 02:51:00 Bunny De Paz [facility] POCT GLUCOSE (AUTOMATED) 2022-03-05 02:51:00 Bunny De Paz [facility] POCT GLUCOSE (AUTOMATED) 2022-03-05 02:51:00 Bunny De Paz [facility] XR HAND 3+ VW LEFT 2022-03-05 00:45[facility] 2022-03-05 00:45[facility] VW LEFT 2022-03-05 00:45:00 [facility]+ VW LEFT 2022-03-05 00:45:[facility] 2022-02-06 01:32:00 Elvia Mckeon [facility] BLOOD CULTURE SCREEN 2022-02-06 01:31:00 Elvia Mckeon [facility] BASIC METABOLIC PANEL 2022-02-06 01:00:00 Elvia Mckeon [facility] (NA, K, CL, CO2, GLUCOSE, Medica l Branch BUN, CREATININE, CA) BASIC METABOLIC PANEL 2022-02-06 01:00:00 Elvia Mckeon [facility] (NA, K, CL, CO2, GLUCOSE, Medica l Branch BUN, CREATININE, CA) CBC WITH DIFF 2022-02-06 00:59:00 Natalie [facility] PROTHROMBIN TIME / INR 2022-02-06 00:59:00 Elvia Mckeon [facility] ACTIVATED PARTIAL 2022-02-06 00:59:00 Elvia Mckeon [facility] CBC WITH DIFF 2022-02-06 00:59:00 [facility] [facility] ACTIVATED PARTIAL 2022-02-06 00:59:00 Elvia Mckeon [facility] PROTHROMBIN TIME / INR 2022-02-06 00:59:00 Elvia Mckeon [facility] XR HAND 3+ VW LEFT 2022-02-05 22:43:39 Elvia Mckeon [facility] XR HAND 3+ VW LEFT 2022-02-05 22:43:39 Elvia Mckeon [facility] CONSENT/REFUSAL FOR 2022-02-05 22:20:55 Doctor Josse [facility] DIAGNOSIS AND TREATMENT [facility] CONSENT/REFUSAL FOR 2022-02-05 22:20:55 Doctor Josse [facility] DIAGNOSIS AND TREATMENT [facility] [place] EMERGENCY SERVICES 2022-02-05 06:01:00 Doctor Josse [facility] AGREEMENTS AND [facility] AUTHORIZATIONS CONSENT/REFUSAL FOR 2022-01-14 16:30:47 Doctor Loaiza [facility] DIAGNOSIS AND TREATMENT [facility] CONSENT/REFUSAL FOR 2022-01-14 16:30:47 Doctor Josse [facility] DIAGNOSIS AND TREATMENT [facility] [place] EMERGENCY SERVICES 2022-01-14 05:01:00 Doctor Josse [facility] AGREEMENTS AND [facility] AUTHORIZATIONS AUTHORIZATION FOR RELEASE 2022-01-14 05:01:00 Doctor Josse, [facility] Name [facility] [place] XR FINGERS 2 VW LEFT 2021-12-25 14:42:[address] [facility] XR FINGERS 2 VW LEFT 2021-12-25 14:42:[address] [facility] COMP. METABOLIC PANEL 2021-12-25 14:27:00 Kelvin [facility] ([id number]) [facility] [place] CBC WITH DIFF 2021-12-25 14:27:00 Kelvin [facility] URINALYSIS 2021-12-25 14:27:00 Kelvin [facility] CBC WITH DIFF 2021-12-25 14:27:00 Kelvin [facility] URINALYSIS 2021-12-25 14:27:00 Kelvin [facility] COMP. METABOLIC PANEL 2021-12-25 14:27:00 Kelvin [facility] ([id number]) [facility] [place] EMERGENCY SERVICES 2021-12-25 05:01:00 Doctor Loaiza [facility] AGREEMENTS AND [facility] [place] AUTHORIZATIONS ASSIGNMENT OF BENEFITS 2019-12-20 14:47:43 Doctor Josse [facility] Name [facility] [place] POCT GLUCOSE (AUTOMATED) 2019-12-07 22:09:00 Yadira Nick [facility] POCT GLUCOSE (AUTOMATED) 2019-12-07 17:13:00 Yadira Nick [facility] BASIC METABOLIC PANEL 2019-12-07 14:24:00 Kwesi [facility] (NA, K, CL, CO2, GLUCOSE, Medica l Branch BUN, CREATININE, CA) CBC WITH DIFF 2019-12-07 14:24:00 Mukul Kwesi [place] [facility] POCT GLUCOSE (AUTOMATED) 2019-12-07 13:13:00 Yadira Nick [facility] POCT GLUCOSE (AUTOMATED) 2019-12-07 09:26:00 Yadira Nick [facility] POCT GLUCOSE (AUTOMATED) 2019-12-07 05:06:00 Yadira Nick [facility] POCT GLUCOSE (AUTOMATED) 2019-12-07 01:19:00 Yadira Nick [facility] POCT GLUCOSE (AUTOMATED) 2019-12-06 23:40:00 Yadira Nick [facility] FUNGUS (ROUTINE) CULTURE 2019-12-06 22:07:32 Yadira Nick [facility] TISSUE 2019-12-06 22:07:32 Yadira Nick [facility] CULTURE(AEROBIC/ANAEROBIC Medica l Branch ) FOOT DEBRIDEMENT 2019-12-06 20:36:00 Yadira Nick [facility] COVID-19 (ID NOW RAPID 2019-12-06 17:01:00 Missy Shabazz [facility]SE (AUTOMATED) 2019-12-06 16:56:00 Yadira Nick [facility] POCT GLUCOSE (AUTOMATED) 2019-12-06 13:16:00 Yadira Nick [facility] POCT GLUCOSE (AUTOMATED) 2019-12-06 09:16:00 Yadira Nick [facility] POCT GLUCOSE (AUTOMATED) 2019-12-06 05:24:00 Yadira Nick [facility] POCT GLUCOSE (AUTOMATED) 2019-12-06 01:53:00 Yadira Nick [facility] POCT GLUCOSE (AUTOMATED) 2019-12-05 22:05:00 Yadira Nick [facility] POCT GLUCOSE (AUTOMATED) 2019-12-05 16:57:00 Yadira Nick [facility] POCT GLUCOSE (AUTOMATED) 2019-12-05 12:48:00 Yadira Nick [facility] POCT GLUCOSE (AUTOMATED) 2019-12-05 09:58:00 Yadira Nick niversity of [facility] POCT GLUCOSE (AUTOMATED) 2019-12-05 05:22:00 Yadira Nick [facility] POCT GLUCOSE (AUTOMATED) 2019-12-04 21:27:00 Yadira Nick [facility] POCT GLUCOSE (AUTOMATED) 2019-12-04 16:49:[address] [facility] POCT GLUCOSE (AUTOMATED) 2019-12-04 13:32:[address] [facility] BASIC METABOLIC PANEL 2019-12-04 10:29:00 [facility] (NA, K, CL, CO2, GLUCOSE, Medica l Branch BUN, CREATININE, CA) CBC WITH DIFF 2019-12-04 10:29:00 [facility] POCT GLUCOSE (AUTOMATED) 2019-12-04 04:55:[address] [facility] [facility] POCT GLUCOSE (AUTOMATED) 2019-12-04 01:08:00 Yadira Nick U [facility] of [facility] POCT GLUCOSE (AUTOMATED) 2019-12-03 21:12:[address] [facility] POCT GLUCOSE (AUTOMATED) 2019-12-03 17:19:[address] [facility] POCT GLUCOSE (AUTOMATED) 2019-12-03 13:36:00 [facility] BASIC METABOLIC PANEL 2019-12-03 10:17:00 [facility] (NA, K, CL, CO2, GLUCOSE, Medica l Branch BUN, CREATININE, CA) CBC WITH DIFF 2019-12-03 10:17:00 [facility] POCT GLUCOSE (AUTOMATED) 2019-12-03 09:11:[address] [facility] [facility] POCT GLUCOSE (AUTOMATED) 2019-12-03 05:46:00 [facility] 2019-12-03 02:01:00 [facility] (AUTOMATED) 2019-12-03 01:28:00 [facility]SE (AUTOMATED) 2019-12-02 23:04:00 [facility] POCT GLUCOSE (AUTOMATED) 2019-12-02 17:07:00 [facility]ira [facility] (AUTOMATED) 2019-12-02 12:58:00 [facility]SE (AUTOMATED) 2019-12-02 09:51:00 [facility]SE (AUTOMATED) 2019-12-02 06:12:00 Yadira Nick [facility] VANCOMYCIN TROUGH 2019-12-02 03:35:00 Rafael Arenas [facility] POCT GLUCOSE (AUTOMATED) 2019-12-02 02:22:00 [facility]ira [facility]SE (AUTOMATED) 2019-12-01 21:43:00 Yadira Nick [facility] POCT GLUCOSE (AUTOMATED) 2019-12-01 17:27:00 Yadira Nick [facility] POCT GLUCOSE (AUTOMATED) 2019-12-01 13:27:00 Yadira Nick [facility] BASIC METABOLIC PANEL 2019-12-01 09:51:00 [facility] (NA, K, CL, CO2, GLUCOSE, Medica l Branch BUN, CREATININE, CA) CBC WITH DIFF 2019-12-01 09:51:00 [facility] o f [facility] POCT GLUCOSE (AUTOMATED) 2019-12-01 09:39:00 [facility]ira [facility] POCT GLUCOSE (AUTOMATED) 2019-12-01 05:44:00 [facility]adira [facility]SE (AUTOMATED) 2019-12-01 01:44:00 Yadira Nick [facility] HB ABO GROUPING 2019-11-30 22:40:00 Kwesi Gilman [facility] POCT GLUCOSE (AUTOMATED) 2019-11-30 22:09:00 Yadira Nick [facility] POCT GLUCOSE (AUTOMATED) 2019-11-30 15:56:00 Yadira Nick [facility] VANCOMYCIN TROUGH 2019-11-30 14:21:00 [facility] POCT GLUCOSE (AUTOMATED) 2019-11-30 13:24:00 Yadira Nick [facility] BASIC METABOLIC PANEL 2019-11-30 09:22:00 [facility] (NA, K, CL, CO2, GLUCOSE, Medica l Branch BUN, CREATININE, CA) CBC WITH DIFF 2019-11-30 09:22:00 [facility] POCT GLUCOSE (AUTOMATED) 2019-11-30 09:21:00 Yadira Nick [facility] POCT GLUCOSE (AUTOMATED) 2019-11-30 04:50:00 Yadira Nick U [facility] POCT GLUCOSE (AUTOMATED) 2019-11-30 01:35:00 Yadira Nick U [facility] POCT GLUCOSE (AUTOMATED) 2019-11-30 01:21:00 Yadira Nick U [facility] POCT GLUCOSE (AUTOMATED) 2019-11-29 23:08:00 [facility] (AUTOMATED) 2019-11-29 17:00:00 Yadira Nick U [facility] POCT GLUCOSE (AUTOMATED) 2019-11-29 12:38:00 Yadira Nick [facility] BASIC METABOLIC PANEL 2019-11-29 09:43:00 [facility] (NA, K, CL, CO2, GLUCOSE, Medica l Branch BUN, CREATININE, CA) CBC WITH DIFF 2019-11-29 09:43:00 [facility] chicho [facility] POCT GLUCOSE (AUTOMATED) 2019-11-29 09:27:00 [facility]adira [facility] POCT GLUCOSE (AUTOMATED) 2019-11-29 04:43:00 Yadiar [facility] BASIC METABOLIC PANEL 2019-11-29 03:53:00 [facility] (NA, K, CL, CO2, GLUCOSE, Medica l Branch BUN, CREATININE, CA) POCT GLUCOSE (AUTOMATED) 2019-11-29 01:37:00 [facility]ira [facility] POCT GLUCOSE (AUTOMATED) 2019-11-28 22:23:00 [facility]ira [facility] PO[facility]UCOSE (AUTOMATED) 2019-11-28 19:56:00 [facility]adira [facility] PO[facility] GLUCOSE (AUTOMATED) 2019-11-28 16:55:00 [facility]adira [facility] PO[facility] GLUCOSE (AUTOMATED) 2019-11-28 13:42:00 Yadira Nick U [facility] BASIC METABOLIC PANEL 2019-11-28 10:24:00 Braulio Jovel [facility] (NA, K, CL, CO2, GLUCOSE, Medica l Branch BUN, CREATININE, CA) CBC WITH DIFF 2019-11-28 10:24:00 [facility] [place] chicho [facility] POCT GLUCOSE (AUTOMATED) 2019-11-28 09:01:00 [facility]adira [facility] PO[facility] GLUCOSE (AUTOMATED) 2019-11-28 05:10:[address] [facility] VANCOMYCIN TROUGH 2019-11-28 04:52:[address] [facility] POCT GLUCOSE (AUTOMATED) 2019-11-28 01:09:00 [facility]ira [facility] POCT GLUCOSE (AUTOMATED) 2019-11-27 22:10:[address] [facility] FL TIME OR 2019-11-27 21:38:42 [facility], [facility] (NON-REPORTABLE) [facility] FUNGUS (ROUTINE) CULTURE 2019-11-27 20:45:56 Yadira Nick [facility] TISSUE 2019-11-27 20:45:56 Yadira Nick [facility] CULTURE(AEROBIC/ANAEROBIC Medica l Branch ) ASPIRATE OR ABSCESS 2019-11-27 20:28:15 Yadira Nick [facility] CULTURE(AEROBIC/ANAEROBIC Medica l Branch ) AFB CULTURE 2019-11-27 20:28:15 Yadira Nick [facility] FUNGUS (ROUTINE) CULTURE 2019-11-27 20:28:15 Yadira Nick [facility] FUNGUS (ROUTINE) CULTURE 2019-11-27 20:23:39 Yadira Nick [facility] TISSUE 2019-11-27 20:23:39 Yadira Nick [facility] CULTURE(AEROBIC/ANAEROBIC Medica l Branch ) SURGICAL PATHOLOGY EXAM 2019-11-27 20:07:00 Yadira Nick [facility] TOE AMPUTATION 2019-11-27 18:00:00 Yadira Nick [facility] ARTERIOGRAM 2019-11-27 18:00:00 Yadira Nick [facility] POCT GLUCOSE (AUTOMATED) 2019-11-27 14:00:00 Sai Lomas [facility] POCT GLUCOSE (AUTOMATED) 2019-11-27 10:12:00 Sai Lomas [facility] MAGNESIUM 2019-11-27 09:58:00 Donnausc [facility] BASIC METABOLIC PANEL 2019-11-27 09:58:00 [facility] (NA, K, CL, CO2, GLUCOSE, Medica l Branch BUN, CREATININE, CA) CBC WITH DIFF 2019-11-27 09:58:00 [facility] ABORH CONFIRMATION 2019-11-27 09:55:00 aSi Lomas [facility] HB ABO GROUPING 2019-11-27 08:50:[address] [facility] POCT GLUCOSE (AUTOMATED) 2019-11-27 04:27:00 Sai Lomas [facility] POCT GLUCOSE (AUTOMATED) 2019-11-27 01:10:00 Sai Lomas [facility] BAMBI MULTI LEVEL BY 2019-11-26 21:55:[address] [facility] VASCULAR LAB Medical Branch MR FOOT LEFT W WO 2019-11-26 21:23:56 Molly Greene [facility] CONTRAST A Medical Branch BILATERAL DUPLEX SCAN OF 2019-11-26 19:45:36 Alvarado Saul [facility] ARTERY BY VASCULAR LAB Medical B ranch POCT GLUCOSE (AUTOMATED) 2019-11-26 19:06:00 Sai Lomas [facility] WOUND/ASPIRATE OR ABSCESS 2019-11-26 16:45:00 Braulio Jovel [facility] CULTURE [facility] WOUND CULTURE 2019-11-26 16:45:00 [facility] POCT GLUCOSE (AUTOMATED) 2019-11-26 14:09:00 Sai Lomas [facility] LACTIC ACID WHOLE BLOOD 2019-11-26 09:33:00 Carlos Bee [facility] POCT GLUCOSE (AUTOMATED) 2019-11-26 09:27:00 Sai Lomas [facility] XR FOOT <3 VW LEFT 2019-11-26 02:20:07 Miky Fajardo [facility] COVID-19 (ID NOW RAPID 2019-11-26 02:18:00 Miky Fajardo [facility] TESTING) [facility] BLOOD CULTURE SCREEN 2019-11-26 02:13:00 Miky Fajardo [facility] COMP. METABOLIC PANEL 2019-11-26 02:13:00 Miky Fajardo [facility] ([id number]) [facility] LIPID PANEL (70795)(TOTAL 2019-11-26 02:13:00 Carlos Bee [facility] CHOLESTEROL, [facility] TRIGLYCERIDES, HDL) CBC WITH DIFF 2019-11-26 02:13:00 Miky Fajardo [facility] GLYCOSYLATED HEMOGLOBIN 2019-11-26 02:13:00 Carlos Bee [facility] (A1C) [facility] LACTIC ACID WHOLE BLOOD 2019-11-26 02:13:00 Miky Fajardo [facility] BLOOD CULTURE SCREEN 2019-11-26 01:50:00 Miky Fajardo [facility] NOTICE OF PRIVACY 2019-11-26 01:12:21 Doctor Unassigned, [facility] PRACTICES [facility] CONSENT/REFUSAL FOR 2019-11-26 01:10:14 Doctor Unassigned, [facility] DIAGNOSIS AND TREATMENT [facility] AGREEMENTS AUTHORIZATIONS 2019-11-25 05:01:00 Doctor Unassigned, [facility] AND IRREVOCABLE [facility] ASSIGNMENTS (FORM 2001) Plan of Care Planned Activity Planned Date Details Comments Source Goal Plan of Care Note [code = 06950-9] Goal Plan of Care Note [code = 29746-8] Goal Plan of Care Note [code = 47447-1] Goal Plan of Care Note [code = 20857-9] Goal Plan of Care Note [code = 96566-5] Goal Plan of Care Note [code = 14864-8] Goal Plan of Care Note [code = 86639-3] Goal Plan of Care Note [code = 29078-6] Goal Plan of Care Note [code = 01531-2] Goal Plan of Care Note [code = 72060-6] Goal Plan of Care Note [code = 64815-8] Goal Plan of Care Note [code = 62626-8] Goal Plan of Care Note [code = 61110-3] Goal Plan of Care Note [code = 53895-8] Goal Plan of Care Note [code = 08869-8] Goal Plan of Care Note [code = 98846-8] Encounters Start End Encounter Admission Attending Care Care Encounter Source Date/Time Date/Time Type Type Clinicians Facility Department ID 2022-03-18 2022-03-18 [place] [id number] Guzman 14:58:49 14:58:49 1220 F Jaya 2022-03-14 2022-03-14 Transition MARQUIS Rincon 1.2.840.114 [id number] Univers 00:00:00 00:00:00 of Care Tatiana SAMUEL 350.1.13.10 [place] [id number] [facility] 403 Branch 2022-03-04 2022-03-13 [facility] DENIS [facility] [id number] Univers 16:52:00 18:01:00 DHEERAJ ity of [facility] 2022-03-04 2022-03-13 [facility] De Paz Bunny AMENA 1.2.840.1 [id number] Univers 16:52:00 18:01:00 [facility] Dheeraj Panda 350.1.13 .10 ity of [facility] 4.2.7.2.686 Jay as [id number] [facility] 093 Branch 2022-03-13 2022-03-13 Anesthesia Franklyn Sesay 1.2.840.1 14 [id number] Univers 10:02:00 12:15:00 Event Fede Gordon 350.1.13.10 ity of [facility] 4.2.7.2.686 Jay as [id number] [facility] 103 Branch 2022-03-13 2022-03-13 Surgery AMENA Foote 1.2.246.429 [id number] Univers 09:31:00 11:09:00 Magaly MUNOZ 350.1.13.10 it y of [facility] 4.2.7.2.686 Jay as [id number] Medi sahde 103 Branch 2022-03-09 2022-03-09 Anesthesia Behzad Williamson 1.2.840.1 [id number] Univers 16:26:14 16:26:14 Event 91343.1.1 ity of 3.104.2.7 [place] .3.949063 Medica l .8 Branch 2022-03-07 2022-03-07 Anesthesia Sriram Cobian 1.2.840.1 [id number] Univers 07:15:00 09:05:00 Event 78585.1.1 ity of 3.104.2.7 [place] .3.134329 Medica l .8 Branch 2022-03-07 2022-03-07 Surgery Nereida 1.2.840.6 [id number] Univers 06:55:00 09:03:00 Bryan 16288.1.1 ity of 3.104.2.7 [place] .3.588759 Medica l .8 [place] 2022-03-05 2022-03-05 Outpatient R [facility] [id number] Univers 10:50:00 10:50:00 MAGALY ity of [facility] 2022-03-05 2022-03-05 Telephone Faillace, 1.2.840.7 [id number] Univers 00:00:00 00:00:00 Magaly 18520.1.1 ity of 3.104.2.7 [place] .3.057062 Medica l .8 [place] 2022-03-05 2022-03-[address], 1.2.840.0 [id number] Univers 00:00:00 00:00:00 Management Care 18755.1.1 i ty of Transition 3.104.2.7 Jay as .3.064782 Medica l .8 [place] 2022-03-04 2022-03-04 Travel 1.2.840.1 1.2.944.941 [id number] Univers 00:00:00 00:00:00 36654.1.1 350.1.13.10 ity of 3.104.2.7 [place].3.698 [place] .3.454147 084.8 Medica l .8 [place] 2022-02-27 2022-02-27 Outpatient [facility] [id number] Guzman 11:40:20 11:40:20 1201 F Jaya 2022-02-26 2022-02-26 Letter Le, Phi-Agnieszka 1.2.840.5 [id number] Univers 00:00:00 00:00:00 (Out) Dianna 00792.1.1 ity of 3.104.2.7 [place] .3.424882 Medica l .8 [place] 2022-02-12 2022-02-12 [facility] [id number] Univers 10:10:00 10:35:[address] [facility] 2022-02-12 2022-02-12 Office Faillace, 1.2.840.0 [id number] Univers 10:10:00 10:35:28 Visit Magaly 86859.1.1 ity of 3.104.2.7 [place] .3.515648 Medica l .8 [place] 2022-02-12 2022-02-12 Travel 1.2.840.1 1.2.868.583 [id number] Univers 00:00:00 00:00:00 40462.1.1 350.1.13.10 ity of 3.104.2.7 [place].3.698 [place] .3.403866 084.8 Medica l .8 [place] 2022-02-05 2022-02-05 Emergency X MAXSHAKILA, [facility] ERT [id number] Univers 16:19:00 22:45:[address] [facility] 2022-02-05 2022-02-05 Emergency Kaale, 1.2.840.4 [id number] Univers 16:19:00 22:45:00 Elvia Caraballo 74620.1.1 i ty of 3.104.2.7 [place] .3.057673 Medica l .8 [place] 2022-02-05 2022-02-05 Travel 1.2.840.1 1.2.652.327 [id number] Univers 00:00:00 00:00:00 22068.1.1 350.1.13.10 ity of 3.104.2.7 [place].3.698 [place] .3.557425 084.8 Medica l .8 [place] 2022-02-04 2022-02-04 Outpatient [facility] [id number] Guzman 14:32:55 14:32:55 1108 F [place] 2022-02-04 2022-02-04 Outpatient [id number] 00:00:00 00:00:00 Visit [id number] [id number] 5504-10-18 2022-01-14 Emergency X MIKE, [facility] ERT [id number] Univers 11:43:00 13:30:00 WAKILI ity of [facility] 2022-01-14 2022-01-14 Emergency Yarima, 1.2.840.7 [id number] Univers 11:43:00 13:30:00 Wakili S 35060.1.1 ity of 3.104.2.7 [place] .3.978460 Medica l .8 [place] 2022-01-14 2022-01-14 Travel 1.2.840.1 1.2.232.677 [id number] Univers 00:00:00 00:00:00 53171.1.1 350.1.13.10 ity of 3.104.2.7 [place].3.698 [place] .3.540554 084.8 Medica l .8 [place] 2021-12-25 2021-12-25 Emergency X KELVIN, [facility] ERT [id number] Univers 09:09:00 13:30:00 LOUIE ity of [facility] 2021-12-25 2021-12-25 Emergency Naranjo, 1.2.840.5 [id number] Univers 09:09:00 13:30:00 Louie 68003.1.1 ity of 3.104.2.7 [place] .3.011505 Medica l .8 [place] 2021-11-07 2021-11-07 Outpatient [id number]- [id number] 00:00:00 00:00:00 Visit 12ef-4933 [id number] -[id number] [id number] [id number] 2021-06-03 2021-06-03 Patient MARQUIS Burroughs 1.2.840.114 [id number] Univers 00:00:00 00:00:00 Outreach Alexandrapaola SAMUEL 350.1.13.10 [place] [id number] [facility] 403 [place] 2021-04-04 2021-04-04 Patient MARQUIS Burroughs 1.2.840.114 [id number] Univers 00:00:00 00:00:00 Outreach Alexandra E SAMUEL 350.1.13.10 [place] [id number] [place] [address] Branch 2021-02-13 2021-02-13 Patient ManjeetMARQUIS henry 1.2.840.114 [id number] Univers 00:00:00 00:00:00 Outreach Alexandra E SAMUEL 350.1.13.10 [place] [id number] [place] [address] Branch 2021-01-11 2021-01-11 Patient Marquis Burroughs 1.2.840.114 [id number] Univers 00:00:00 00:00:00 Outreach Alexandra E Samuel 350.1.13.10 i ty of [place] [id number] [place] [address] Branch 2020-12-10 2020-12-10 Patient Marquis Burroughs 1.2.840.114 [id number] Univers 00:00:00 00:00:00 Outreach Alexandra E Samuel 350.1.13.10 i ty [place] [id number] [place] [address] Branch 2020-10-31 2020-10-31 Patient Marquis Burroughs 1.2.840.114 [id number] Univers 00:00:00 00:00:00 Outreach Alexandra E Samuel [id number] [id number] [place] [address] [place] 2020-09-18 2020-09-18 Patient Marquis Burroughs 1.2.840.114 [id number] [employer] 00:00:00 00:00:00 Outreach Alexandra E Samuel 350.1.13.10 i [id number] [address] [place] 2020-08-03 2020-08-03 Patient Marquis Burroughs 1.2.840.114 [id number] [employer] 00:00:00 00:00:00 Outreach Alexandra E Samuel 350.1.13.10 i [place] [phone] [address] 2020-07-17 2020-07-17 Office [facility] 1.2.840.114 [id number] [employer] 08:48:00 09:50:16 Visit Yadira Ann 350.1.13.10 ity [facility] [place] [id number] [id number] [address] 2020-07-17 2020-07-17 [facility] [id number] Univers 09:00:00 09:00:00 YADIRA siu [facility] 2020-07-12 2020-07-12 Patient Marquis Burroughs 1.2.840.114 [id number] Univers 00:00:00 00:00:00 Outreach Alexandra E Samuel 350.1.13.10 i ty [phone] [address] 2020-06-18 2020-06-18 Outpatient R FAWN [facility] [id number] Univers 09:30:00 09:30:00 [facility] 2020-06-15 Office [facility] 1.2.840.114 [id number] Univers 08:34:05 10:34:19 Visit Yadira Ann 350.1.13.10 ity [facility] [place] [phone] [address] 2020-06-15 2020-06-15 [facility]patient [facility] [id number] Univers 08:30:00 08:30:00 YADIRA siu [facility] 2020-04-12 2020-04-12 Patient Marquis Burroughs 1.2.840.114 [id number] Univers 00:00:00 00:00:00 Outreach Alexandra E Samuel 350.1.13.10 [place] [id number] [address] 2020-03-13 2020-03-13 Office [facility] 1.2.840.114 [id number] Univers 09:13:42 11:04:48 Visit Yadira Ann 350.1.13.10 ity of [place] [phone] [address] 2020-03-13 2020-03-13 Outpatient R [facility] [id number] Univers 10:15:00 10:15:00 YADIRA siu [facility] 2020-03-09 2020-03-09 Patient Janelle Burroughssam 1.2.840.114 [id number] Univers 00:00:00 00:00:00 Outreach Alexandra E Samuel 350.1.13.10 i [place] [id number] [address] 2020-02-10 2020-02-10 Office [facility] 1.2.840.114 [id number] Univers 08:49:26 10:05:10 Visit Yadira Ann 350.1.13.10 ity of [place] [phone] [address] 2020-02-10 2020-02-10 Outpatient R [facility] [id number] Univers 09:15:00 09:15:00 YADIRA siu [facility] 2020-02-07 2020-02-07 Patient Janelle Burroughssam 1.2.840.114 [id number] Univers 00:00:00 00:00:00 Outreach Alexandra E Samuel 350.1.13.10 i [place] [id number] [address] 2020-01-13 2020-01-13 Office [facility] 1.2.840.114 [id number] Univers 08:44:53 10:04:55 Visit Yadira Ann 350.1.13.10 ity [place] [phone] [address] 2020-01-13 2020-01-13 Outpatient [facility] [id number] Univers 09:00:00 09:00:00 YADIRA siu [facility] 2020-01-12 2020-01-12 Patient Marquis Burroughs 1.2.840.114 [id number] Univers 00:00:00 00:00:00 Outreach Alexandra E Samuel 350.1.13.10 i [place] [id number] [address] 2020-01-12 2020-01-12 Patient Marquis Burroughs 1.2.840.114 [id number] Univers 00:00:00 00:00:00 Outreach Alexandra E Samuel 350.1.13.10 [place] [phone] [address] 2020-01-11 2020-01-11 Patient Marquis Burroughs 1.2.840.114 [id number] Univers 00:00:00 00:00:00 Outreach Alexandra E Samuel 350.1.13.10 [place] [phone] [address] 2020-01-06 2020-01-06 Outpatient [facility] [id number] Univers 10:45:00 10:45:00 YADIRA siu [facility] 2020-01-06 2020-01-06 Patient Marquis Burroughs 1.2.840.114 [id number] Univers 00:00:00 00:00:00 Outreach Alexandra E Samuel 350.1.13.10 [place] [phone] [address] 2020-01-04 2020-01-04 Transition Marquis Rincon 1.2.840.114 [id number] Univers 00:00:00 00:00:00 of Care Tatiana Samuel 350.1.13.10 ity of [place] [phone] [address] 2019-12-28 2019-12-28 Telephone [facility] 1.2.840.114 [id number] Univers 00:00:00 00:00:00 Yadira Ann 350.1.13.10 ity of [place] [phone] [facility] 205 [facility] 2019-12-23 2019-12-23 Telephone [facility] 1.2.840.114 [id number] Univers 00:00:00 00:00:00 Francisco Ann 350.1.13.10 i [place] [phone] [facility] 044 [facility] 2019-12-22 2019-12-22 Patient Robyn Canassam 1.2.840.114 [id number] [facility] 00:00:00 00:00:00 Outreach E Samuel 350.1.13.10 i [place] [id number] [address] 2019-12-21 2019-12-21 Patient Kam [facility] 1.2.840.114 [id number] Univers 00:00:00 00:00:00 Outreach [employer] [facility] 350.1.13.10 i ty of [place] 4.2.7.2.686 [place] Professio [phone] [address] Office [address] [facility] 2019-12-21 2019-12-21 Patient Marquis Burroughs 1.2.840.114 [id number] [facility] Univers 00:00:00 00:00:00 Outreach Alexandra E Samuel 350.1.13.10 i [place] [phone] [address] 2019-12-20 2019-12-20 Office [facility] 1.2.840.114 [id number] Univers 15:39:02 16:36:37 Visit Francisco Ann 350.1.13.10 i [place] [phone] Pr dical nal 044 [facility] 2019-12-20 2019-12-20 Office [facility] 1.2.840.114 [id number] Univers 09:47:52 10:57:49 Visit Yadira Seth 350.1.13.10 ity of [place] [phone] Pr dical nal 205 [facility] 2019-12-20 2019-12-20 Outpatient R [facility] [id number] [facility] 10:15:00 10:15:00 YADIRA cosme o f [facility] 2019-12-20 2019-12-20 Orders Doctor MAGALY 1.2.840.114 [id number] Univers 00:00:00 00:00:00 Only Unassigned, ALEXANDER 350.1.13.10 ity of [facility] 4.2.7.2.686 [place] [phone] [facility] [address] [place] 2019-12-11 2019-12-11 Telephone [facility] 1.2.840.114 [id number] Univers 00:00:00 00:00:00 Yadira Seth 350.1.13.10 ity of [place] [phone] Pr dical nal 205 [facility] 2019-12-08 2019-12-08 Transition Marquis Rincon 1.2.840.114 [id number] Univers 00:00:00 00:00:00 of Care Tatiana Samuel 350.1.13.10 ity of [place] [phone] [facility] [address] 2019-11-25 2019-12-07 [facility] Miky Fajardo 1.2.840. 114 [id number] Univers 20:29:00 20:07:00 Encounter Sai Lomas 350.1.1 3.10 ity of [facility] 4.2.7.2.686 [place] [phone] [facility] [address] [place] 2019-11-30 2019-11-30 Transition Marquis Rincon 1.2.840.114 [id number] Univers 00:00:00 00:00:00 of Care Tatiana Gregorioy 350.1.13.10 it[place] [phone] [address] 2019-11-25 2019-11-25 Emergency X MIKE IABECK ERT [id number] Univers 20:29:00 20:29:00 MIKY ity of [facility] 2019-11-25 2019-11-25 Orders Doctor MAGALY 1.2.840.114 [id number] Univers 00:00:00 00:00:00 Only Unassigned, ALEXANDER 350.1.13.10 ity of [place] [facility] 4.2.7.2.686 [place] [phone] [place] [address] [address] 2018-12-03 2018-12-03 Patient Marquis Burroughs 1.2.840.114 [id number] Univers 00:00:00 00:00:00 Outreach Alexandra E Samuel 350.1.13.10 [place] [phone] [address] 2018-12-03 2018-12-03 Patient Robyn Canas 1.2.840.114 [id number] Univers 00:00:00 00:00:00 Outreach E Samuel 350.1.13.10 [place] [phone] [address] Results Test Description Test Time Test Comments Results Result Comments Source POCT GLUCOSE (AUTOMATED) 2022-03-13 22:22:39 Test Item Value Reference Range Interpretation Comme nts POCT GLU (test code = 6794511910) 177 mg/dL 70-110 H Lab Interpretation (test code = 79058-2) Abnormal [facility] GLUCOSE (AUTOMATED)2022-03-13 22:22:39 Test Item Value Reference Range Interpretation Comments POCT GLU (test code = 7941196386) 177 mg/dL 70-110 H Lab Interpretation (test code = Abnormal 80413-1) [facility] GLUCOSE (AUTOMATED)2022-03-13 21:22:19 Test Item Value Reference Range Interpretation Comments POCT GLU (test code = 1299274715) 169 mg/dL 70-110 H Lab Interpretation (test code = Abnormal 39963-7) [facility] GLUCOSE (AUTOMATED)2022-03-13 21:22:19 Test Item Value Reference Range Interpretation Comments POCT GLU (test code = 4682737988) 169 mg/dL 70-110 H Lab Interpretation (test code = Abnormal 07689-1) [facility] GLUCOSE (AUTOMATED)2022-03-13 15:15:57 Test Item Value Reference Range Interpretation Comments POCT GLU (test code = 0290017328) 114 mg/dL 70-110 H Lab Interpretation (test code = Abnormal 88703-2) [facility] GLUCOSE (AUTOMATED)2022-03-13 15:15:57 Test Item Value Reference Range Interpretation Comments POCT GLU (test code = 3107188679) 114 mg/dL 70-110 H Lab Interpretation (test code = Abnormal 32898-4) [facility] GLUCOSE (AUTOMATED)2022-03-13 15:07:00 Test Item Value Reference Range Interpretation Comments POCT GLU (test code = 8322132608) 111 mg/dL 70-110 H Lab Interpretation (test code = Abnormal 14450-8) [facility] GLUCOSE (AUTOMATED)2022-03-13 15:07:00 Test Item Value Reference Range Interpretation Comments POCT GLU (test code = 2089581897) 111 mg/dL 70-110 H Lab Interpretation (test code = Abnormal 06843-9) [facility] GLUCOSE (AUTOMATED)2022-03-13 03:45:35 Test Item Value Reference Range Interpretation Comments POCT GLU (test code = 0922225179) 158 mg/dL 70-110 H Lab Interpretation (test code = Abnormal 71808-2) [facility] GLUCOSE (AUTOMATED)2022-03-13 03:45:35 Test Item Value Reference Range Interpretation Comments POCT GLU (test code = 0084112625) 158 mg/dL 70-110 H Lab Interpretation (test code = Abnormal 13254-5) [facility] GLUCOSE (AUTOMATED)2022-03-12 22:26:10 Test Item Value Reference Range Interpretation Comments POCT GLU (test code = 9997929479) 233 mg/dL 70-110 H Lab Interpretation (test code = Abnormal 40096-6) [facility] GLUCOSE (AUTOMATED)2022-03-12 22:26:10 Test Item Value Reference Range Interpretation Comments POCT GLU (test code = 5333842064) 233 mg/dL 70-110 H Lab Interpretation (test code = Abnormal 01815-7) [facility] GLUCOSE (AUTOMATED)2022-03-12 17:45:11 Test Item Value Reference Range Interpretation Comments POCT GLU (test code = 7640842381) 163 mg/dL 70-110 H Lab Interpretation (test code = Abnormal 91824-2) [facility] GLUCOSE (AUTOMATED)2022-03-12 17:45:11 Test Item Value Reference Range Interpretation Comments POCT GLU (test code = 5236771101) 163 mg/dL 70-110 H Lab Interpretation (test code = Abnormal 79760-2) [facility] GLUCOSE (AUTOMATED)2022-03-12 13:37:28 Test Item Value Reference Range Interpretation Comments POCT GLU (test code = 4645391285) 120 mg/dL 70-110 H Lab Interpretation (test code = Abnormal 46527-1) [facility] GLUCOSE (AUTOMATED)2022-03-12 13:37:28 Test Item Value Reference Range Interpretation Comments POCT GLU (test code = 2109710941) 120 mg/dL 70-110 H Lab Interpretation (test code = Abnormal 89209-2) [facility] GLUCOSE (AUTOMATED)2022-03-12 02:58:45 Test Item Value Reference Range Interpretation Comments POCT GLU (test code = 2804370250) 208 mg/dL 70-110 H Lab Interpretation (test code = Abnormal 07128-5) [facility] GLUCOSE (AUTOMATED)2022-03-12 02:58:45 Test Item Value Reference Range Interpretation Comments POCT GLU (test code = 4436863802) 208 mg/dL 70-110 H Lab Interpretation (test code = Abnormal 67125-3) [facility] GLUCOSE (AUTOMATED)2022-03-11 22:10:24 Test Item Value Reference Range Interpretation Comments POCT GLU (test code = 7398919967) 155 mg/dL 70-110 H Lab Interpretation (test code = Abnormal 31503-9) [facility] GLUCOSE (AUTOMATED)2022-03-11 22:10:24 Test Item Value Reference Range Interpretation Comments POCT GLU (test code = 0513330602) 155 mg/dL 70-110 H Lab Interpretation (test code = Abnormal 01592-2) [facility] GLUCOSE (AUTOMATED)2022-03-11 19:03:28 Test Item Value Reference Range Interpretation Comments POCT GLU (test code = 0425765371) 208 mg/dL 70-110 H Lab Interpretation (test code = Abnormal 35604-2) [facility] GLUCOSE (AUTOMATED)2022-03-11 19:03:28 Test Item Value Reference Range Interpretation Comments POCT GLU (test code = 9218432006) 208 mg/dL 70-110 H Lab Interpretation (test code = Abnormal 81905-8) [facility] GLUCOSE (AUTOMATED)2022-03-11 19:03:28 Test Item Value Reference Range Interpretation Comments POCT GLU (test code = 3101790647) 208 mg/dL 70-110 H Lab Interpretation (test code = Abnormal 23208-6) [facility] GLUCOSE (AUTOMATED)2022-03-11 13:26:22 Test Item Value Reference Range Interpretation Comments POCT GLU (test code = 0824821404) 98 mg/dL 70-110 Lab Interpretation (test code = Normal 36897-3) [facility] GLUCOSE (AUTOMATED)2022-03-11 13:26:22 Test Item Value Reference Range Interpretation Comments POCT GLU (test code = 9009300010) 98 mg/dL 70-110 Lab Interpretation (test code = Normal 24987-5) [facility] GLUCOSE (AUTOMATED)2022-03-11 02:41:20 Test Item Value Reference Range Interpretation Comments POCT GLU (test code = 6887460051) 169 mg/dL 70-110 H Lab Interpretation (test code = Abnormal 94660-3) [facility] GLUCOSE (AUTOMATED)2022-03-11 02:41:20 Test Item Value Reference Range Interpretation Comments POCT GLU (test code = 2040705464) 169 mg/dL 70-110 H Lab Interpretation (test code = Abnormal 71524-3) [facility] GLUCOSE (AUTOMATED)2022-03-10 23:20:44 Test Item Value Reference Range Interpretation Comments POCT GLU (test code = 5581413499) 103 mg/dL 70-110 Lab Interpretation (test code = Normal 02759-7) [facility] GLUCOSE (AUTOMATED)2022-03-10 23:20:44 Test Item Value Reference Range Interpretation Comments POCT GLU (test code = 1419378629) 103 mg/dL 70-110 Lab Interpretation (test code = Normal 66923-2) [facility] GLUCOSE (AUTOMATED)2022-03-10 18:33:58 Test Item Value Reference Range Interpretation Comments POCT GLU (test code = 2301637581) 114 mg/dL 70-110 H Lab Interpretation (test code = Abnormal 72297-1) [facility] GLUCOSE (AUTOMATED)2022-03-10 18:33:58 Test Item Value Reference Range Interpretation Comments POCT GLU (test code = 1802910507) 114 mg/dL 70-110 H Lab Interpretation (test code = Abnormal 80146-2) [facility] GLUCOSE (AUTOMATED)2022-03-10 18:33:58 Test Item Value Reference Range Interpretation Comments POCT GLU (test code = 3835694934) 114 mg/dL 70-110 H Lab Interpretation (test code = Abnormal 93933-3) [facility] GLUCOSE (AUTOMATED)2022-03-10 18:33:58 Test Item Value Reference Range Interpretation Comments POCT GLU (test code = 6701216961) 114 mg/dL 70-110 H Lab Interpretation (test code = Abnormal 04997-3) [facility] GLUCOSE (AUTOMATED)2022-03-10 13:30:10 Test Item Value Reference Range Interpretation Comments POCT GLU (test code = 5860968084) 142 mg/dL 70-110 H Lab Interpretation (test code = Abnormal 76709-8) [facility] GLUCOSE (AUTOMATED)2022-03-10 13:30:10 Test Item Value Reference Range Interpretation Comments POCT GLU (test code = 5796426695) 142 mg/dL 70-110 H Lab Interpretation (test code = Abnormal 36266-8) [facility] GLUCOSE (AUTOMATED)2022-03-10 13:30:10 Test Item Value Reference Range Interpretation Comments POCT GLU (test code = 7037973497) 142 mg/dL 70-110 H Lab Interpretation (test code = Abnormal 92818-3) [facility] 01:53:31 Test Item Value Reference Range Interpretation Comments POCT GLU (test code = 8857337749) 167 mg/dL 70-110 H Lab Interpretation (test code = Abnormal 82937-2) [facility]2022-[facility]10 01:53:31 Test Item Value Reference Range Interpretation Comments POCT GLU (test code = 4148924599) 167 mg/dL 70-110 H Lab Interpretation (test code = Abnormal 77776-7) [facility] 01:53:31 Test Item Value Reference Range Interpretation Comments POCT GLU (test code = 2221666488) 167 mg/dL 70-110 H Lab Interpretation (test code = Abnormal 94348-6) [facility] GLUCOSE (AUTOMATED)2022-03-09 23:34:36 Test Item Value Reference Range Interpretation Comments POCT GLU (test code = 2266749054) 185 mg/dL 70-110 H Lab Interpretation (test code = Abnormal 72898-9) [facility] 23:34:36 Test Item Value Reference Range Interpretation Comments POCT GLU (test code = 2560270874) 185 mg/dL 70-110 H Lab Interpretation (test code = Abnormal 23074-0) [facility] GLUCOSE (AUTOMATED)2022-03-09 23:34:36 Test Item Value Reference Range Interpretation Comments POCT GLU (test code = 2386548774) 185 mg/dL 70-110 H Lab Interpretation (test code = Abnormal 70012-6) [facility] 17:29:55 Test Item Value Reference Range Interpretation Comments POCT GLU (test code = 4265994293) 131 mg/dL 70-110 H Lab Interpretation (test code = Abnormal 47899-2) [facility] GLUCOSE (AUTOMATED)2022-03-09 17:29:55 Test Item Value Reference Range Interpretation Comments POCT GLU (test code = 7903098415) 131 mg/dL 70-110 H Lab Interpretation (test code = Abnormal 72189-3) [facility] GLUCOSE (AUTOMATED)2022-03-09 17:29:55 Test Item Value Reference Range Interpretation Comments POCT GLU (test code = 5498260444) 131 mg/dL 70-110 H Lab Interpretation (test code = Abnormal 54234-1) [facility] GLUCOSE (AUTOMATED)2022-03-09 13:37:07 Test Item Value Reference Range Interpretation Comments POCT GLU (test code = 3753607266) 112 mg/dL 70-110 H Lab Interpretation (test code = Abnormal 22999-1) [facility] GLUCOSE (AUTOMATED)2022-03-09 13:37:07 Test Item Value Reference Range Interpretation Comments POCT GLU (test code = 7707407032) 112 mg/dL 70-110 H Lab Interpretation (test code = Abnormal 95319-7) [facility] GLUCOSE (AUTOMATED)2022-03-09 13:37:07 Test Item Value Reference Range Interpretation Comments POCT GLU (test code = 3465958227) 112 mg/dL 70-110 H Lab Interpretation (test code = Abnormal 07314-8) [facility] GLUCOSE (AUTOMATED)2022-03-09 02:23:58 Test Item Value Reference Range Interpretation Comments POCT GLU (test code = 7129688397) 166 mg/dL 70-110 H Lab Interpretation (test code = Abnormal 04930-5) [facility] GLUCOSE (AUTOMATED)2022-03-09 02:23:58 Test Item Value Reference Range Interpretation Comments POCT GLU (test code = 9904035920) 166 mg/dL 70-110 H Lab Interpretation (test code = Abnormal 05403-5) [facility] GLUCOSE (AUTOMATED)2022-03-09 02:23:58 Test Item Value Reference Range Interpretation Comments POCT GLU (test code = 3397753409) 166 mg/dL 70-110 H Lab Interpretation (test code = Abnormal 86816-7) [facility] - ONCE [id number] 22:19:24 Test Item Value Reference Range Interpretation Comments ABO & RH (test code O POSITIVE Performe d at [facility] = 20) Laboratory Serv [facility] [place] [address]Ksay Free: [phone] A No. [id number] IAT (test code = Negative Performed a t [facility] 1185) Laboratory [facility] [place] [address] s 018[address]Tgmv Free: [phone] A No. [id number] [facility] and Screen - ONCE [id number] 22:19:24 Test Item Value Reference Range Interpretation Comments ABO & RH (test code O POSITIVE Performe d at [facility] = 20) Laboratory [facility] [address] [place] [address] s 92308Zzbk Free: [phone] A No. [id number] IAT (test code = Negative Performed a t [facility] 1185) Laboratory [facility] Blood [address] s [address]Rbml Free: [phone] A No. [id number] [facility] and Screen - ONCE [id number] 22:19:24 Test Item Value Reference Range Interpretation Comments ABO & RH (test code O POSITIVE Performe d at [facility] = 20) Laboratory [facility] [address] [place] [address] s 69648Gfuf Free: [phone] A No. [id number] IAT (test code = Negative Performed a t [facility] 1185) Laboratory [facility] Blood [facility] [address] [place] [address] s 08155Fonf Free: [phone] A No. [id number] [facility] and Screen - ONCE [id number] 22:19:24 Test Item Value Reference Range Interpretation Comments ABO & RH (test code O POSITIVE Performe d at [facility] = 20) Laboratory [facility] [address] [place] [address] s 385[address]Oaqt Free: [phone] A No. [id number] IAT (test code = Negative Performed a t [facility] 1185) Laboratory [facility] [address] [place] [address] s 74539Htxe Free: [phone] A No. [id number] [facility] - ONCE [id number] 22:19:24 Test Item Value Reference Range Interpretation Comments ABO & RH (test code O POSITIVE Performe d at [facility] = 20) Laboratory Serv [facility] [address] [facility] s [address]Zpue Free: [phone] A No. [id number] IAT (test code = Negative Performed a t [facility] 1185) Laboratory Serv [facility] [address] [facility] [address]Jnoj Free: [phone] A No. [id number] [facility] GLUCOSE (AUTOMATED)2022-03-08 21:52:51 Test Item Value Reference Range Interpretation Comments POCT GLU (test code = 4498096533) 157 mg/dL 70-110 H Lab Interpretation (test code = Abnormal 90817-3) [facility] GLUCOSE (AUTOMATED)2022-03-08 21:52:51 Test Item Value Reference Range Interpretation Comments POCT GLU (test code = 8089958880) 157 mg/dL 70-110 H Lab Interpretation (test code = Abnormal 87916-2) [facility] GLUCOSE (AUTOMATED)2022-03-08 21:52:51 Test Item Value Reference Range Interpretation Comments POCT GLU (test code = 5131459262) 157 mg/dL 70-110 H Lab Interpretation (test code = Abnormal 66207-0) [facility] GLUCOSE (AUTOMATED)2022-03-08 17:27:00 Test Item Value Reference Range Interpretation Comments POCT GLU (test code = 7243578354) 115 mg/dL 70-110 H Lab Interpretation (test code = Abnormal 90661-9) [facility] GLUCOSE (AUTOMATED)2022-03-08 17:27:00 Test Item Value Reference Range Interpretation Comments POCT GLU (test code = 7804975749) 115 mg/dL 70-110 H Lab Interpretation (test code = Abnormal 80394-7) [facility] GLUCOSE (AUTOMATED)2022-03-08 17:27:00 Test Item Value Reference Range Interpretation Comments POCT GLU (test code = 6533309396) 115 mg/dL 70-110 H Lab Interpretation (test code = Abnormal 02829-7) [facility]2022-03-08 13:36:37 Test Item Value Reference Range Interpretation Comments POCT GLU (test code = 7008421488) 113 mg/dL 70-110 H Lab Interpretation (test code = Abnormal 72543-8) [facility] GLUCOSE (AUTOMATED)2022-03-08 13:36:37 Test Item Value Reference Range Interpretation Comments POCT GLU (test code = 0389694890) 113 mg/dL 70-110 H Lab Interpretation (test code = Abnormal 85522-5) [facility]2022-03-08 13:36:37 Test Item Value Reference Range Interpretation Comments POCT GLU (test code = 9937672235) 113 mg/dL 70-110 H Lab Interpretation (test code = Abnormal 71078-9) [facility] GLUCOSE (AUTOMATED)2022-03-08 12:24:57 Test Item Value Reference Range Interpretation Comments POCT GLU (test code = 1649661633) 115 mg/dL 70-110 H Lab Interpretation (test code = Abnormal 20119-4) [facility] 12:24:57 Test Item Value Reference Range Interpretation Comments POCT GLU (test code = 7143489729) 115 mg/dL 70-110 H Lab Interpretation (test code = Abnormal 05719-5) [facility] GLUCOSE (AUTOMATED)2022-03-08 12:24:57 Test Item Value Reference Range Interpretation Comments POCT GLU (test code = 7685261740) 115 mg/dL 70-110 H Lab Interpretation (test code = Abnormal 31632-2) [facility] 02:36:30 Test Item Value Reference Range Interpretation Comments POCT GLU (test code = 0234491206) 211 mg/dL 70-110 H Lab Interpretation (test code = Abnormal 28263-0) [facility] 02:36:30 Test Item Value Reference Range Interpretation Comments POCT GLU (test code = 0038358895) 211 mg/dL 70-110 H Lab Interpretation (test code = Abnormal 09704-1) [facility] GLUCOSE (AUTOMATED)2022-03-08 02:36:30 Test Item Value Reference Range Interpretation Comments POCT GLU (test code = 3433344450) 211 mg/dL 70-110 H Lab Interpretation (test code = Abnormal 63169-4) [facility] 00:07:30 Test Item Value Reference Range Interpretation Comments POCT GLU (test code = 3031812461) 130 mg/dL 70-110 H Lab Interpretation (test code = Abnormal 96746-7) [facility]:07[facility]30 Test Item Value Reference Range Interpretation Comments POCT GLU (test code = 7258639691) 130 mg/dL 70-110 H Lab Interpretation (test code = Abnormal 59932-1) [facility] GLUCOSE (AUTOMATED)2022-03-08 00:07:30 Test Item Value Reference Range Interpretation Comments POCT GLU (test code = 8349490416) 130 mg/dL 70-110 H Lab Interpretation (test code = Abnormal 05154-3) [facility] 18:37:06 Test Item Value Reference Range Interpretation Comments POCT GLU (test code = 5909951245) 99 mg/dL 70-110 Lab Interpretation (test code = Normal 46409-4) [facility] 18:37:06 Test Item Value Reference Range Interpretation Comments POCT GLU (test code = 1670553925) 99 mg/dL 70-110 Lab Interpretation (test code = Normal 03901-5) [facility] 18:37:06 Test Item Value Reference Range Interpretation Comments POCT GLU (test code = 0343393728) 99 mg/dL 70-110 Lab Interpretation (test code = Normal 96134-9) [facility] 11:56:20 Test Item Value Reference Range Interpretation Comments POCT GLU (test code = 4489087761) 86 mg/dL 70-110 Lab Interpretation (test code = Normal 22236-7) [facility] GLUCOSE (AUTOMATED)2022-03-07 11:56:20 Test Item Value Reference Range Interpretation Comments POCT GLU (test code = 6737410004) 86 mg/dL 70-110 Lab Interpretation (test code = Normal 06402-7) [facility] GLUCOSE (AUTOMATED)2022-03-07 11:56:20 Test Item Value Reference Range Interpretation Comments POCT GLU (test code = 8474556495) 86 mg/dL 70-110 Lab Interpretation (test code = Normal 69579-9) [facility] GLUCOSE (AUTOMATED)2022-03-07 02:39:21 Test Item Value Reference Range Interpretation Comments POCT GLU (test code = 5752559097) 153 mg/dL 70-110 H Lab Interpretation (test code = Abnormal 83822-8) [facility] GLUCOSE (AUTOMATED)2022-03-07 02:39:21 Test Item Value Reference Range Interpretation Comments POCT GLU (test code = 1075253049) 153 mg/dL 70-110 H Lab Interpretation (test code = Abnormal 37660-1) [facility] GLUCOSE (AUTOMATED)2022-03-07 02:39:21 Test Item Value Reference Range Interpretation Comments POCT GLU (test code = 0045515849) 153 mg/dL 70-110 H Lab Interpretation (test code = Abnormal 24795-5) [facility] GLUCOSE (AUTOMATED)2022-03-07 00:29:42 Test Item Value Reference Range Interpretation Comments POCT GLU (test code = 2909490679) 151 mg/dL 70-110 H Lab Interpretation (test code = Abnormal 55095-7) [facility] GLUCOSE (AUTOMATED)2022-03-07 00:29:42 Test Item Value Reference Range Interpretation Comments POCT GLU (test code = 6210864676) 151 mg/dL 70-110 H Lab Interpretation (test code = Abnormal 01963-0) [facility] GLUCOSE (AUTOMATED)2022-03-07 00:29:42 Test Item Value Reference Range Interpretation Comments POCT GLU (test code = 0491912954) 151 mg/dL 70-110 H Lab Interpretation (test code = Abnormal 32237-6) [facility] GLUCOSE (AUTOMATED)2022-03-06 19:35:41 Test Item Value Reference Range Interpretation Comments POCT GLU (test code = 7744503576) 207 mg/dL 70-110 H Lab Interpretation (test code = Abnormal 57665-1) [facility] GLUCOSE (AUTOMATED)2022-03-06 19:35:41 Test Item Value Reference Range Interpretation Comments POCT GLU (test code = 7866947452) 207 mg/dL 70-110 H Lab Interpretation (test code = Abnormal 99744-6) [facility] GLUCOSE (AUTOMATED)2022-03-06 19:35:41 Test Item Value Reference Range Interpretation Comments POCT GLU (test code = 4838025834) 207 mg/dL 70-110 H Lab Interpretation (test code = Abnormal 68076-5) [facility] GLUCOSE (AUTOMATED)2022-03-06 15:37:31 Test Item Value Reference Range Interpretation Comments POCT GLU (test code = 8868129886) 115 mg/dL 70-110 H Lab Interpretation (test code = Abnormal 03978-5) [facility] GLUCOSE (AUTOMATED)2022-03-06 15:37:31 Test Item Value Reference Range Interpretation Comments POCT GLU (test code = 8876596623) 115 mg/dL 70-110 H Lab Interpretation (test code = Abnormal 16198-9) [facility] GLUCOSE (AUTOMATED)2022-03-06 15:37:31 Test Item Value Reference Range Interpretation Comments POCT GLU (test code = 3906352784) 115 mg/dL 70-110 H Lab Interpretation (test code = Abnormal 76804-7) [facility] GLUCOSE (AUTOMATED)2022-03-06 03:02:54 Test Item Value Reference Range Interpretation Comments POCT GLU (test code = 0883916661) 149 mg/dL 70-110 H Lab Interpretation (test code = Abnormal 91868-8) [facility] GLUCOSE (AUTOMATED)2022-03-06 03:02:54 Test Item Value Reference Range Interpretation Comments POCT GLU (test code = 9757833090) 149 mg/dL 70-110 H Lab Interpretation (test code = Abnormal 59764-3) [facility] GLUCOSE (AUTOMATED)2022-03-06 03:02:54 Test Item Value Reference Range Interpretation Comments POCT GLU (test code = 0674007325) 149 mg/dL 70-110 H Lab Interpretation (test code = Abnormal 37574-1) [facility] GLUCOSE (AUTOMATED)2022-03-05 23:42:01 Test Item Value Reference Range Interpretation Comments POCT GLU (test code = 3863495296) 173 mg/dL 70-110 H Lab Interpretation (test code = Abnormal 15566-5) [facility] GLUCOSE (AUTOMATED)2022-03-05 23:42:01 Test Item Value Reference Range Interpretation Comments POCT GLU (test code = 5944980235) 173 mg/dL 70-110 H Lab Interpretation (test code = Abnormal 45046-7) [facility] GLUCOSE (AUTOMATED)2022-03-05 23:42:01 Test Item Value Reference Range Interpretation Comments POCT GLU (test code = 8453477116) 173 mg/dL 70-110 H Lab Interpretation (test code = Abnormal 81763-7) [facility] GLUCOSE (AUTOMATED)2022-03-05 19:04:44 Test Item Value Reference Range Interpretation Comments POCT GLU (test code = 7306847491) 154 mg/dL 70-110 H Lab Interpretation (test code = Abnormal 50023-5) [facility] GLUCOSE (AUTOMATED)2022-03-05 19:04:44 Test Item Value Reference Range Interpretation Comments POCT GLU (test code = 9874848598) 154 mg/dL 70-110 H Lab Interpretation (test code = Abnormal 99149-9) [facility] GLUCOSE (AUTOMATED)2022-03-05 19:04:44 Test Item Value Reference Range Interpretation Comments POCT GLU (test code = 2949737437) 154 mg/dL 70-110 H Lab Interpretation (test code = Abnormal 92910-4) [facility] 15:56:46 Test Item Value Reference Range Interpretation Comments POCT GLU (test code = 5825003538) 101 mg/dL 70-110 Lab Interpretation (test code = Normal 60119-2) [facility] GLUCOSE (AUTOMATED)2022-03-05 15:56:46 Test Item Value Reference Range Interpretation Comments POCT GLU (test code = 9240541513) 101 mg/dL 70-110 Lab Interpretation (test code = Normal 33893-2) [facility] GLUCOSE (AUTOMATED)2022-03-05 15:56:46 Test Item Value Reference Range Interpretation Comments POCT GLU (test code = 8902491440) 101 mg/dL 70-110 Lab Interpretation (test code = Normal 14895-2) [facility] GLUCOSE (AUTOMATED)2022-03-05 02:52:46 Test Item Value Reference Range Interpretation Comments POCT GLU (test code = 1873438209) 124 mg/dL 70-110 H Lab Interpretation (test code = Abnormal 00483-1) [facility] GLUCOSE (AUTOMATED)2022-03-05 02:52:46 Test Item Value Reference Range Interpretation Comments POCT GLU (test code = 6056451492) 124 mg/dL 70-110 H Lab Interpretation (test code = Abnormal 22461-7) [facility] GLUCOSE (AUTOMATED)2022-03-05 02:52:46 Test Item Value Reference Range Interpretation Comments POCT GLU (test code = 9700350048) 124 mg/dL 70-110 H Lab Interpretation (test code = Abnormal 12104-2) [facility]. METABOLIC PANEL (65212)2021-12-25 15:03:27 Test Item Value Reference Range Interpretation Comments NA (test code = 136 mmol/L 135-145 3842245704) K (test code = 4.1 mmol/L 3.5-5 1380667869) CL (test code = 102 mmol/L 98-108 2927666956) CO2 TOTAL (test code = 23 mmol/L 23-31 2369829028) AGAP (test code = 2-16 3750056648) BUN (test code = 12 mg/dL 7-23 9191850588) GLUCOSE (test code = 318 mg/dL 70-110 H 9361259271) CREATININE (test code = 0.77 mg/dL 0.6-1.25 6380585621) TOTAL BILI (test code = 0.6 mg/dL 0.1-1.0 7006031020) CALCIUM (test code = 8.6 mg/dL 8.6-10.6 1221386153) T PROTEIN (test code = 6.8 g/dL 6.3-8.2 2068680969) ALBUMIN (test code = 3.9 g/dL 3.5-5 9649533660) ALK PHOS (test code = 165 U/L 34-122 H 1244532131) ALTv (test code = 32 U/L 5-50 1742-6) AST(SGOT) (test code = 24 U/L 13-40 7747165691) eGFR (test code = mL/min/1.73m2 4411656334) LUIS (test code = LUIS) Association of [...] tests). Lab Interpretation Abnormal (test code = 14030-0) [facility]. METABOLIC PANEL (17688)2021-12-25 15:03:27 Test Item Value Reference Range Interpretation Comments NA (test code = 136 mmol/L 135-145 2099788351) K (test code = 4.1 mmol/L 3.5-5.0 9405683332) CL (test code = 102 mmol/L 98-108 0004341553) CO2 TOTAL (test code = 23 mmol/L 23-31 8377401288) AGAP (test code = 2-16 4602885475) BUN (test code = 12 mg/dL 7-23 2949785879) GLUCOSE (test code = 318 mg/dL 70-110 H 5954290042) CREATININE (test code = 0.77 mg/dL 0.60-1.25 5145737253) TOTAL BILI (test code = 0.6 mg/dL 0.1-1.2 6029350106) CALCIUM (test code = 8.6 mg/dL 8.6-10.6 7587912890) T PROTEIN (test code = 6.8 g/dL 6.3-8.2 9822189175) ALBUMIN (test code = 3.9 g/dL 3.5-5.0 4548723384) ALK PHOS (test code = 165 U/L 34-122 H 0850596821) ALTv (test code = 32 U/L 5-50 2-6) AST(SGOT) (test code = 24 U/L 13-40 2617733741) eGFR (test code = mL/min/1.73m2 8923214801) LUIS (test code = LUIS) Association of [...] tests). Lab Interpretation Abnormal (test code = 56192-1) [facility]. METABOLIC PANEL (36936)2021-12-25 15:03:27 Test Item Value Reference Range Interpretation Comments NA (test code = 136 mmol/L 135-145 4893926521) K (test code = 4.1 mmol/L 3.5-5.0 4693555164) CL (test code = 102 mmol/L 98-108 6092388745) CO2 TOTAL (test code = 23 mmol/L 23-31 1152024935) AGAP (test code = 2-16 6978176740) BUN (test code = 12 mg/dL 7-23 1407576745) GLUCOSE (test code = 318 mg/dL 70-110 H 7296802913) CREATININE (test code = 0.77 mg/dL 0.60-1.25 5971692429) TOTAL BILI (test code = 0.6 mg/dL 0.1-1.2 0582376508) CALCIUM (test code = 8.6 mg/dL 8.6-10.6 0741819378) T PROTEIN (test code = 6.8 g/dL 6.3-8.2 2797663354) ALBUMIN (test code = 3.9 g/dL 3.5-5.0 9472118571) ALK PHOS (test code = 165 U/L 34-122 H 3152198463) ALTv (test code = 32 U/L 5-50 2-6) AST(SGOT) (test code = 24 U/L 13-40 3266254270) eGFR (test code = mL/min/1.73m2 2789868225) LUIS (test code = LUIS) Association of [...] tests). Lab Interpretation Abnormal (test code = 62849-2) [facility] WITH [id number] 14:53:24 Test Item Value Reference Range Interpretation Comments WBC (test code = See_Comment [Automated 6990-2) message] The sy stem which generated this result transmitted reference range : 4.20 - 10.70 10*3/?L. The reference range was not used to interpret this result as normal/abnormal . RBC (test code = See_Comment L [Automated 369-8) message] The sy stem which generated this [...] RDW-SD (test code = 39.2 fL 38.5-51.6 47747-0) RDW-CV (test code = 12.9 % 12.1-15.4 788-0) PLT (test code = See_Comment [Automated 777-3) message] The sy stem which generated this result transmitted reference range : 150 - 328 10*3/ ?L. The reference r neno was not used to interpret this result as normal/abnormal . MPV (test code = 9.2 fL 9.8-13 L 26880-4) NRBC/100 WBC (test See_Comment [Automat ed code = 5261934653) message] The system which generated this result transmitted reference range : 0.0 - 10.0 /100 WBCs. The refer ence range was not u sed to interpret th is result as normal/abnormal . NRBC x10^3 (test code See_Comment [Auto mated = 9685398359) message] The s ystem which generated this result transmitted reference range : 10*3/?L. The reference range was not used to interpret this result as normal/abnormal . GRAN MAT (NEUT) % 71.6 % (test code = 770-8) IMM GRAN % (test code 0.40 % = 6687502681) LYMPH % (test code = 18.8 % 736-9) MONO % (test code = 6.7 % 5905-5) EOS % (test code = 1.7 % 713-8) BASO % (test code = 0.8 % 706-2) GRAN MAT x10^3(ANC) 5.46 10*3/uL 1.99-6.95 (test code = 0844279425) IMM GRAN x10^3 (test 0.03 10*3/uL 0-0.06 code = 7557483234) LYMPH x10^3 (test code 1.43 10*3/uL 1.09-3.23 = 731-0) MONO x10^3 (test code 0.51 10*3/uL 0.36-1.02 = 742-7) EOS x10^3 (test code = 0.13 10*3/uL 0.06-0.53 711-2) BASO x10^3 (test code 0.06 10*3/uL 0.01-0.09 = 704-7) Lab Interpretation Abnormal (test code = 18894-0) [facility]05 Test Item Value Reference Range Interpretation Comments NOTE: (test code = (NOTE) IN ACCOR DANCE WITH FEDERAL 998) GUIDELINES REQU IRING ALL VERBAL REQUESTS FOR LABORATORY TEST S TO BE ACCOMPANIED BY WRITTEN AUTHORIZATION W ITHIN 30 DAYS OF THIS REQUEST , PLEASE SIGN BELOW AND RETUR N A COPY OF THIS REPORT BY FAX TO THE LABORATORY [facility] DEPARTMENT AT . PHYSICIAN'S SIG NATURE DATE UNLESS OTHERWISE INDIC ATED, ALL TESTING PERFORM ED ATCLINICAL PATHOLOGY [facility] [employer]. [address] [place] [address] LABORATOR Y DIRECTOR: RASHID HOPSON M.D. CLIA NUMBER [id number] CAP ACCREDITATION N O. [id number] LIPID [id number] 05:00:16 Test Item Value Reference Range Interpretation [...] MOREINFORMATION , SEE CLIENT ANNOUNCE MENT AT [email or web address] [email or web address] RATIO LDL/HDL 2.34 RATIO <3.55 (test code = 2238) COMPREHENSIVE METABOLIC [id number] 05:00:16 Test Item Value Reference Range Interpretation Comments GLUCOSE (test code = 250 MG/DL 70-99 H 2216) BUN (test code = 18 MG/DL -2207) CREATININE (test 1.17 MG/DL 0.80-1.40 code = 2214) eGFR (2020 CKD-EPI) 72 ML/MIN/1.73 >60 (test code = 08540) CALC BUN/CREAT (test 15 RATIO 6-28 code = 2235) SODIUM (test code = 141 MEQ/L 801-382 6437) POTASSIUM (test code 4.4 MEQ/L 3.5-5.4 = 2227) CHLORIDE (test code 106 MEQ/L 95-107 = 2214) CARBON DIOXIDE (test 24 MEQ/L 19-31 code = 220) CALCIUM (test code = 9.1 MG/DL 8.5-10.5 2208) PROTEIN, TOTAL (test 6.5 G/DL 6.1-8.3 code = 222) ALBUMIN (test code = 3.7 G/DL 3.5-5.2 2200) CALC GLOBULIN (test 2.8 G/DL 1.9-3.7 code = 224) CALC A/G RATIO (test 1.3 RATIO 1.0-2.6 code = 2233) BILIRUBIN, TOTAL 0.4 MG/DL See_Comment [Automated message] (test code = 2206) The [email or web address] which generated this result transmit alex reference range : <=1.2. The refe rence range was not u sed to interpret th is result as normal/abnormal . ALKALINE PHOSPHATASE 157 U/L 40-123 H (test code = 2203) AST (test code = 28 U/L 9-50 2217) ALT (test code = 30 U/L 5-50 2218) HEMOGLOBIN [id number] 04:11:01 Test Item Value Reference Range Interpretation Comments HEMOGLOBIN A1c (test 10.5 % 4.2-5.6 H [employer] code = 92001) ASSOCIATION [employer] FOR HGB A1C: PREDIABETES/INC REASED [...] ATE TESTING OR LABORATORY C ONSULTATION. HEMOGLOBIN [id number] 07:49:13 Test Item Value Reference Range Interpretation Comments HEMOGLOBIN A1c (test 11.7 % 4.2-5.6 H [employer] code = 91848) ASSOCIATION [employer] FOR HGB A1C: PREDIABETES/INC REASED [...] TESTING OR LABORATORY C ONSULTATION. COMPREHENSIVE METABOLIC [id number] 05:31:44 Test Item Value Reference Range Interpretation Comments GLUCOSE (test code = 209 MG/DL 70-99 H 2216) BUN (test code = 12 MG/DL 6-20 2207) CREATININE (test 0.73 MG/DL 0.80-1.40 L code = 2214) eGFR (2020 CKD-EPI) 106 >60 (test code = 22380) ML/MIN/1.73 CALC BUN/CREAT (test 16 RATIO 6-28 code = 2235) SODIUM (test code = 139 MEQ/L 655-688 8023) POTASSIUM (test code 4.2 MEQ/L 3.5-5.4 = 2227) CHLORIDE (test code 101 MEQ/L 95-107 = 2214) CARBON DIOXIDE (test 24 MEQ/L 19-31 code = 2206) CALCIUM (test code = 8.7 MG/DL 8.5-10.5 2208) PROTEIN, TOTAL (test 6.8 G/DL 6.1-8.3 code = 222) ALBUMIN (test code = 4.0 G/DL 3.5-5.2 [...] 2204) AST (test code = 22 U/L 50 2217) ALT (test code = 32 U/L 50 2218) LIPID [id number] 05:31:44 Test Item Value Reference Range Interpretation [...] MOREINFORMATION , SEE CLIENT ANNOUNCE MENT AT [email or web address] [email or web address] RATIO LDL/HDL 1.72 RATIO <3.55 UNLESS O THERWISE (test code = 2237) INDICATED , ALL TESTING PERFORMED [facility], [facility]. [address] [place] [id number] [place] [address] DIRECTOR: RASHID HOBBS M.D. CLIA NUMBER [id number] CAP ACCREDITATION N O. [id number] HEMOGLOBIN [id number] 00:00:00 Test Item Value Reference Range Interpretation Comments HEMOGLOBIN A1c (test code = 91345) 11.7 % COMPREHENSIVE METABOLIC [id number] 00:00:00 Test Item Value Reference Range Interpretation Comments GLUCOSE (test code = 7) 209 MG/DL BUN (test code = 8) 12 MG/DL CREATININE (test code = 2214) 0.73 MG/DL eGFR (2020 CKD-EPI) (test 106 ML/MIN/1.73 code = 14137) CALC BUN/CREAT (test code = 16 RATIO 2234) SODIUM (test code = 223) 139 MEQ/L POTASSIUM (test code = 2228) 4.2 MEQ/L CHLORIDE (test code = 2215) 101 MEQ/L CARBON DIOXIDE (test code = 24 MEQ/L 2205) CALCIUM (test code = 220) 8.7 MG/DL PROTEIN, TOTAL (test code = 6.8 G/DL 2229) ALBUMIN (test code = 2201) 4.0 G/DL CALC GLOBULIN (test code = 2.8 G/DL 2240) CALC A/G RATIO (test code = 1.4 RATIO 2234) BILIRUBIN, TOTAL (test code = 0.2 MG/DL 2206) ALKALINE PHOSPHATASE (test 144 U/L code = 2204) AST (test code = 2218) 22 U/L ALT (test code = 2219) 32 U/L COMPREHENSIVE METABOLIC [id number] 00:00:00 Test Item Value Reference Range Interpretation Comments GLUCOSE (test code = 2217) 209 MG/DL BUN (test code = 2208) 12 MG/DL CREATININE (test code = 2214) 0.73 MG/DL eGFR (2020 CKD-EPI) (test 106 ML/MIN/1.73 code = 56529) CALC BUN/CREAT (test code = 16 RATIO [...] (test code = 2219) 32 U/L LIPID [id number] 00:00:00 Test Item Value Reference Range Interpretation Comments CHOLESTEROL (test code = 2210) 184 MG/DL TRIGLYCERIDES (test code = 2232) 196 MG/DL HDL CHOLESTEROL (test code = 2220) 57 MG/DL CALC LDL CHOL (test code = 2237) 98 MG/DL RISK RATIO LDL/HDL (test code = 1.72 RATIO 2238) LIPID [id number] 00:00:00 Test Item Value Reference Range Interpretation Comments CHOLESTEROL (test code = 2210) 184 MG/DL TRIGLYCERIDES (test code = 2232) 196 MG/DL HDL CHOLESTEROL (test code = 2220) 57 MG/DL CALC LDL CHOL (test code = 2237) 98 MG/DL RISK RATIO LDL/HDL (test code = 1.72 RATIO 2238) HEMOGLOBIN [id number] 00:00:00 Test Item Value Reference Range Interpretation Comments HEMOGLOBIN A1c (test code = 51245) 11.7 % HEMOGLOBIN [id number] 00:00:00 Test Item Value Reference Range Interpretation Comments HEMOGLOBIN A1c (test code = 58812) 11.7 % HEMOGLOBIN [id number] 00:00:00 Test Item Value Reference Range Interpretation Comments HEMOGLOBIN A1c (test code = 28115) 11.7 % COMPREHENSIVE METABOLIC [id number] 00:00:00 Test Item Value Reference Range Interpretation Comments GLUCOSE (test code = 2217) 209 MG/DL BUN (test code = 2208) 12 MG/DL CREATININE (test code = 2214) 0.73 MG/DL eGFR (2020 CKD-EPI) (test 106 ML/MIN/1.73 code = 37940) CALC BUN/CREAT (test code = 16 RATIO 2234) SODIUM (test code = 2231) 139 MEQ/L [...] A/G RATIO (test code = 1.4 RATIO 4) BILIRUBIN, TOTAL (test code = 0.2 MG/DL 2206) ALKALINE PHOSPHATASE (test 144 U/L code = 2204) AST (test code = 2218) 22 U/L ALT (test code = 2219) 32 U/L COMPREHENSIVE METABOLIC [id number] 00:00:00 Test Item Value Reference Range Interpretation Comments GLUCOSE (test code = 2217) 209 MG/DL BUN (test code = 2208) 12 MG/DL CREATININE (test code = 2214) 0.73 MG/DL eGFR (2020 CKD-EPI) (test 106 ML/MIN/1.73 code = 19954) CALC BUN/CREAT (test code = 16 RATIO [...] CALC GLOBULIN (test code = 2.8 G/DL 224) CALC A/G RATIO (test code = 1.4 RATIO 2234) BILIRUBIN, TOTAL (test code = 0.2 MG/DL 2206) ALKALINE PHOSPHATASE (test 144 U/L code = 2204) AST (test code = 2218) 22 U/L ALT (test code = 2219) 32 U/L LIPID [id number] 00:00:00 Test Item Value Reference Range Interpretation Comments CHOLESTEROL (test code = 2210) 184 MG/DL TRIGLYCERIDES (test code = 2232) 196 MG/DL HDL CHOLESTEROL (test code = 2220) 57 MG/DL CALC LDL CHOL (test code = 2237) 98 MG/DL RISK RATIO LDL/HDL (test code = 1.72 RATIO 2238) LIPID [id number] 00:00:00 Test Item Value Reference Range Interpretation Comments CHOLESTEROL (test code = 2210) 184 MG/DL TRIGLYCERIDES (test code = 2232) 196 MG/DL HDL CHOLESTEROL (test code = 2220) 57 MG/DL CALC LDL CHOL (test code = 2237) 98 MG/DL RISK RATIO LDL/HDL (test code = 1.72 RATIO 2238) HEMOGLOBIN [id number] 00:00:00 Test Item Value Reference Range Interpretation Comments HEMOGLOBIN A1c (test code = 98719) 11.7 % HEMOGLOBIN [id number] 00:00:00 Test Item Value Reference Range Interpretation Comments HEMOGLOBIN A1c (test code = 27401) 11.7 % HEMOGLOBIN [id number] 00:00:00 Test Item Value Reference Range Interpretation Comments HEMOGLOBIN A1c (test code = 75391) 12.1 % HEMOGLOBIN [id number] 00:00:00 Test Item Value Reference Range Interpretation Comments HEMOGLOBIN A1c (test code = 38082) 12.1 % HEMOGLOBIN [id number] 00:00:00 Test Item Value Reference Range Interpretation Comments HEMOGLOBIN A1c (test code = 79622) 12.1 % HEMOGLOBIN [id number] 00:00:00 Test Item Value Reference Range Interpretation Comments HEMOGLOBIN A1c (test code = 17156) 12.1 % HEMOGLOBIN [id number] 00:00:00 Test Item Value Reference Range Interpretation Comments HEMOGLOBIN A1c (test code = 91405) 12.1 % HEMOGLOBIN [id number] 00:00:00 Test Item Value Reference Range Interpretation Comments HEMOGLOBIN A1c (test code = 26437) 12.1 % COMPREHENSIVE METABOLIC [id number] 00:00:00 Test Item Value Reference Range Interpretation Comments GLUCOSE (test code = 2217) 354 MG/DL BUN (test code = 2208) 18 MG/DL CREATININE (test code = 2214) 0.96 MG/DL eGFR AMER. (test code 101 ML/MIN/1.73 = 60416) eGFR NON- AMER. (test 87 ML/MIN/1.73 code = 75875) CALC BUN/CREAT (test code = 19 RATIO [...] code = 2219) 37 U/L COMPREHENSIVE METABOLIC [id number] 00:00:00 Test Item Value Reference Range Interpretation Comments GLUCOSE (test code = 2217) 354 MG/DL BUN (test code = 2208) 18 MG/DL CREATININE (test code = 2214) 0.96 MG/DL eGFR AMER. (test code 101 ML/MIN/1.73 = 14143) eGFR NON- AMER. (test 87 ML/MIN/1.73 code = 45889) CALC BUN/CREAT (test code = 19 RATIO 5) SODIUM (test code = 2231) 139 MEQ/L POTASSIUM (test code = 2228) 4.2 MEQ/L CHLORIDE (test code = 2215) 103 MEQ/L CARBON DIOXIDE (test code = 26 MEQ/L 2205) CALCIUM (test code = 2209) 9.1 MG/DL PROTEIN, TOTAL (test code = 7.5 G/DL 2228) ALBUMIN (test code = 2201) 4.2 G/DL CALC GLOBULIN (test code = 3.3 G/DL 2239) CALC A/G RATIO (test code = 1.3 RATIO 2233) BILIRUBIN, TOTAL (test code = 0.4 MG/DL 2206) ALKALINE PHOSPHATASE (test 179 U/L code = 2204) AST (test code = 2218) 21 U/L ALT (test code = 2219) 37 U/L CBC W/AUTO [id number] 00:00:00 Test Item Value Reference Range Interpretation [...] NUCLEATED RBCS (test code = 0.00 K/UL 71767) CBC W/AUTO [id number] 00:00:00 Test Item Value Reference Range Interpretation [...] NUCLEATED RBCS (test code = 0.00 K/UL 12154) CBC W/AUTO [id number] 00:00:00 Test Item Value Reference Range Interpretation [...] NUCLEATED RBCS (test code = 0.00 K/UL 49665) LIPID [id number] 00:00:00 Test Item Value Reference Range Interpretation Comments CHOLESTEROL (test code = 2210) 200 MG/DL TRIGLYCERIDES (test code = 2232) 151 MG/DL HDL CHOLESTEROL (test code = 2220) 44 MG/DL CALC LDL CHOL (test code = 2237) 130 MG/DL RISK RATIO LDL/HDL (test code = 2.95 RATIO 2238) LIPID [id number] 00:00:00 Test Item Value Reference Range Interpretation Comments CHOLESTEROL (test code = 2210) 200 MG/DL TRIGLYCERIDES (test code = 2232) 151 MG/DL HDL CHOLESTEROL (test code = 2220) 44 MG/DL CALC LDL CHOL (test code = 2237) 130 MG/DL RISK RATIO LDL/HDL (test code = 2.95 RATIO 2238) COMPREHENSIVE METABOLIC [id number] 00:00:00 Test Item Value Reference Range Interpretation Comments GLUCOSE (test code = 2217) 354 MG/DL BUN (test code = 2208) 18 MG/DL CREATININE (test code = 2214) 0.96 MG/DL eGFR AMER. (test code 101 ML/MIN/1.73 = 92829) eGFR NON- AMER. (test 87 ML/MIN/1.73 code = 68272) CALC BUN/CREAT (test code = 19 RATIO [...] code = 2219) 37 U/L COMPREHENSIVE METABOLIC [id number] 00:00:00 Test Item Value Reference Range Interpretation Comments GLUCOSE (test code = 2217) 354 MG/DL BUN (test code = 2208) 18 MG/DL CREATININE (test code = 2214) 0.96 MG/DL eGFR AMER. (test code 101 ML/MIN/1.73 = 42288) eGFR NON- AMER. (test 87 ML/MIN/1.73 code = 78881) CALC BUN/CREAT (test code = 19 RATIO [...] code = 2219) 37 U/L CBC W/AUTO [id number] 00:00:00 Test Item Value Reference Range Interpretation [...] NUCLEATED RBCS (test code = 0.00 K/UL 03443) CBC W/AUTO [id number] 00:00:00 Test Item Value Reference Range Interpretation [...] NUCLEATED RBCS (test code = 0.00 K/UL 54578) CBC W/AUTO [id number] 00:00:00 Test Item Value Reference Range Interpretation [...] NUCLEATED RBCS (test code = 0.00 K/UL 36024) LIPID [id number] 00:00:00 Test Item Value Reference Range Interpretation Comments CHOLESTEROL (test code = 2210) 200 MG/DL TRIGLYCERIDES (test code = 2232) 151 MG/DL HDL CHOLESTEROL (test code = 2220) 44 MG/DL CALC LDL CHOL (test code = 2237) 130 MG/DL RISK RATIO LDL/HDL (test code = 2.95 RATIO 2238) LIPID [id number] 00:00:00 Test Item Value Reference Range Interpretation Comments CHOLESTEROL (test code = 2210) 200 MG/DL TRIGLYCERIDES (test code = 2232) 151 MG/DL HDL CHOLESTEROL (test code = 2220) 44 MG/DL CALC LDL CHOL (test code = 2237) 130 MG/DL RISK RATIO LDL/HDL (test code = 2.95 RATIO 2238) HEMOGLOBIN [id number] 00:00:00 Test Item Value Reference Range Interpretation Comments HEMOGLOBIN A1c (test code = 74565) 10.1 % HEMOGLOBIN [id number] 00:00:00 Test Item Value Reference Range Interpretation Comments HEMOGLOBIN A1c (test code = 35243) 10.1 % HEMOGLOBIN [id number] 00:00:00 Test Item Value Reference Range Interpretation Comments HEMOGLOBIN A1c (test code = 08021) 10.1 % COMPREHENSIVE METABOLIC [id number] 00:00:00 Test Item Value Reference Range Interpretation Comments GLUCOSE (test code = 2217) 338 MG/DL BUN (test code = 2208) 25 MG/DL CREATININE (test code = 2214) 1.00 MG/DL eGFR AMER. (test code 96 ML/MIN/1.73 = 46184) eGFR NON- AMER. (test 83 ML/MIN/1.73 code = 23513) CALC BUN/CREAT (test code = 25 RATIO 2235) SODIUM (test code = 2231) 139 MEQ/L POTASSIUM (test code = 2228) 4.3 MEQ/L CHLORIDE (test code = 2215) 100 MEQ/L CARBON DIOXIDE (test code = 25 MEQ/L 6) CALCIUM (test code = 2209) 9.1 MG/DL PROTEIN, TOTAL (test code = 6.9 G/DL 2228) ALBUMIN (test code = 220) 4.0 G/DL CALC GLOBULIN (test code = 2.9 G/DL 2240) CALC A/G RATIO (test code = 1.4 RATIO 2234) BILIRUBIN, TOTAL (test code = 0.3 MG/DL 2207) ALKALINE PHOSPHATASE (test 233 U/L code = 2204) AST (test code = 2218) 14 U/L ALT (test code = 2219) 22 U/L COMPREHENSIVE METABOLIC [id number] 00:00:00 Test Item Value Reference Range Interpretation Comments GLUCOSE (test code = 2217) 338 MG/DL BUN (test code = 2208) 25 MG/DL CREATININE (test code = 2214) 1.00 MG/DL eGFR AMER. (test code 96 ML/MIN/1.73 = 18038) eGFR NON- AMER. (test 83 ML/MIN/1.73 code = 41853) CALC BUN/CREAT (test code = 25 RATIO 2235) SODIUM (test code = 2231) 139 MEQ/L POTASSIUM (test code = 2228) 4.3 MEQ/L CHLORIDE (test code = 2215) 100 MEQ/L CARBON DIOXIDE (test code = 25 MEQ/L 2206) CALCIUM (test code = 2209) 9.1 MG/DL PROTEIN, TOTAL (test code = 6.9 G/DL 2229) ALBUMIN (test code = 2201) 4.0 G/DL CALC GLOBULIN (test code = 2.9 G/DL 2240) CALC A/G RATIO (test code = 1.4 RATIO 2234) BILIRUBIN, TOTAL (test code = 0.3 MG/DL 2207) ALKALINE PHOSPHATASE (test 233 U/L code = 2204) AST (test code = 2218) 14 U/L ALT (test code = 2219) 22 U/L LIPID [id number] 00:00:00 Test Item Value Reference Range Interpretation Comments CHOLESTEROL (test code = 2210) 152 MG/DL TRIGLYCERIDES (test code = 2232) 153 MG/DL HDL CHOLESTEROL (test code = 2220) 48 MG/DL CALC LDL CHOL (test code = 2237) 79 MG/DL RISK RATIO LDL/HDL (test code = 1.65 RATIO 2238) LIPID [id number] 00:00:00 Test Item Value Reference Range Interpretation Comments CHOLESTEROL (test code = 2210) 152 MG/DL TRIGLYCERIDES (test code = 2232) 153 MG/DL HDL CHOLESTEROL (test code = 2220) 48 MG/DL CALC LDL CHOL (test code = 2237) 79 MG/DL RISK RATIO LDL/HDL (test code = 1.65 RATIO 2238) HEMOGLOBIN [id number] 00:00:00 Test Item Value Reference Range Interpretation Comments HEMOGLOBIN A1c (test code = 37474) 10.1 % HEMOGLOBIN [id number] 00:00:00 Test Item Value Reference Range Interpretation Comments HEMOGLOBIN A1c (test code = 52348) 10.1 % HEMOGLOBIN [id number] 00:00:00 Test Item Value Reference Range Interpretation Comments HEMOGLOBIN A1c (test code = 81347) 10.1 % COMPREHENSIVE METABOLIC [id number] 00:00:00 Test Item Value Reference Range Interpretation Comments GLUCOSE (test code = 2217) 338 MG/DL BUN (test code = 2208) 25 MG/DL CREATININE (test code = 2214) 1.00 MG/DL eGFR AMER. (test code 96 ML/MIN/1.73 = 32003) eGFR NON- AMER. (test 83 ML/MIN/1.73 code = 61736) CALC BUN/CREAT (test code = 25 RATIO [...] code = 2219) 22 U/L COMPREHENSIVE METABOLIC [id number] 00:00:00 Test Item Value Reference Range Interpretation Comments GLUCOSE (test code = 2217) 338 MG/DL BUN (test code = 2208) 25 MG/DL CREATININE (test code = 2214) 1.00 MG/DL eGFR AMER. (test code 96 ML/MIN/1.73 = 88630) eGFR NON- AMER. (test 83 ML/MIN/1.73 code = 65519) CALC BUN/CREAT (test code = 25 RATIO 2235) SODIUM (test code = 2231) 139 MEQ/L POTASSIUM (test code = 2228) 4.3 MEQ/L CHLORIDE (test code = 2215) 100 MEQ/L CARBON DIOXIDE (test code = 25 MEQ/L 220) CALCIUM (test code = 2209) 9.1 MG/DL [...] (test code = 2219) 22 U/L LIPID [id number] 00:00:00 Test Item Value Reference Range Interpretation Comments CHOLESTEROL (test code = 2210) 152 MG/DL TRIGLYCERIDES (test code = 2232) 153 MG/DL HDL CHOLESTEROL (test code = 2220) 48 MG/DL CALC LDL CHOL (test code = 2237) 79 MG/DL RISK RATIO LDL/HDL (test code = 1.65 RATIO 2238) LIPID [id number] 00:00:00 Test Item Value Reference Range Interpretation Comments CHOLESTEROL (test code = 2210) 152 MG/DL TRIGLYCERIDES (test code = 2232) 153 MG/DL HDL CHOLESTEROL (test code = 2220) 48 MG/DL CALC LDL CHOL (test code = 2237) 79 MG/DL RISK RATIO LDL/HDL (test code = 1.65 RATIO 2238) COMPREHENSIVE METABOLIC [id number] 00:00:00 Test Item Value Reference Range Interpretation Comments GLUCOSE (test code = 2217) 177 MG/DL BUN (test code = 2208) 11 MG/DL CREATININE (test code = 2214) 0.67 MG/DL eGFR AMER. (test code 124 ML/MIN/1.73 = 06176) eGFR NON- AMER. (test 107 ML/MIN/1.73 code = 93798) CALC BUN/CREAT (test code = 16 RATIO [...] code = 2219) 27 U/L COMPREHENSIVE METABOLIC [id number] 00:00:00 Test Item Value Reference Range Interpretation Comments GLUCOSE (test code = 2217) 177 MG/DL BUN (test code = 2208) 11 MG/DL CREATININE (test code = 2214) 0.67 MG/DL eGFR AMER. (test code 124 ML/MIN/1.73 = 09210) eGFR NON- AMER. (test 107 ML/MIN/1.73 code = 94618) CALC BUN/CREAT (test code = 16 RATIO [...] (test code = 2219) 27 U/L LIPID [id number] 00:00:00 Test Item Value Reference Range Interpretation Comments CHOLESTEROL (test code = 2210) 127 MG/DL TRIGLYCERIDES (test code = 2232) 99 MG/DL HDL CHOLESTEROL (test code = 2220) 43 MG/DL CALC LDL CHOL (test code = 2237) 66 MG/DL RISK RATIO LDL/HDL (test code = 1.53 RATIO 2238) LIPID [id number] 00:00:00 Test Item Value Reference Range Interpretation Comments CHOLESTEROL (test code = 2210) 127 MG/DL TRIGLYCERIDES (test code = 2232) 99 MG/DL HDL CHOLESTEROL (test code = 2220) 43 MG/DL CALC LDL CHOL (test code = 2237) 66 MG/DL RISK RATIO LDL/HDL (test code = 1.53 RATIO 2238) COMPREHENSIVE METABOLIC [id number] 00:00:00 Test Item Value Reference Range Interpretation Comments GLUCOSE (test code = 2217) 177 MG/DL BUN (test code = 2208) 11 MG/DL CREATININE (test code = 2214) 0.67 MG/DL eGFR AMER. (test code 124 ML/MIN/1.73 = 01824) eGFR NON- AMER. (test 107 ML/MIN/1.73 code = 79924) CALC BUN/CREAT (test code = 16 RATIO [...] code = 2219) 27 U/L COMPREHENSIVE METABOLIC [id number] 00:00:00 Test Item Value Reference Range Interpretation Comments GLUCOSE (test code = 2217) 177 MG/DL BUN (test code = 2208) 11 MG/DL CREATININE (test code = 2214) 0.67 MG/DL eGFR AMER. (test code 124 ML/MIN/1.73 = 06011) eGFR NON- AMER. (test 107 ML/MIN/1.73 code = 01013) CALC BUN/CREAT (test code = 16 RATIO [...] A/G RATIO (test code = 1.5 RATIO 2233) BILIRUBIN, TOTAL (test code = 0.5 MG/DL 2206) ALKALINE PHOSPHATASE (test 108 U/L code = 2204) AST (test code = 2218) 24 U/L ALT (test code = 2219) 27 U/L LIPID [id number] 00:00:00 Test Item Value Reference Range Interpretation Comments CHOLESTEROL (test code = 2210) 127 MG/DL TRIGLYCERIDES (test code = 2232) 99 MG/DL HDL CHOLESTEROL (test code = 2220) 43 MG/DL CALC LDL CHOL (test code = 2237) 66 MG/DL RISK RATIO LDL/HDL (test code = 1.53 RATIO 2238) LIPID [id number] 00:00:00 Test Item Value Reference Range Interpretation Comments CHOLESTEROL (test code = 2210) 127 MG/DL TRIGLYCERIDES (test code = 2232) 99 MG/DL HDL CHOLESTEROL (test code = 2220) 43 MG/DL CALC LDL CHOL (test code = 2237) 66 MG/DL RISK RATIO LDL/HDL (test code = 1.53 RATIO 2238) COMPREHENSIVE METABOLIC [id number] 00:00:00 Test Item Value Reference Range Interpretation Comments GLUCOSE (test code = 2217) 161 MG/DL BUN (test code = 2208) 8 MG/DL CREATININE (test code = 2214) 0.85 MG/DL eGFR AMER. (test code 113 ML/MIN/1.73 = 77528) eGFR NON- AMER. (test 97 ML/MIN/1.73 code = 27067) CALC BUN/CREAT (test code = 9 RATIO [...] code = 2219) 16 U/L COMPREHENSIVE METABOLIC [id number] 00:00:00 Test Item Value Reference Range Interpretation Comments GLUCOSE (test code = 2217) 161 MG/DL BUN (test code = 2208) 8 MG/DL CREATININE (test code = 2214) 0.85 MG/DL eGFR AMER. (test code 113 ML/MIN/1.73 = 92484) eGFR NON- AMER. (test 97 ML/MIN/1.73 code = 50088) CALC BUN/CREAT (test code = 9 RATIO [...] code = 2219) 16 U/L COMPREHENSIVE METABOLIC [id number] 00:00:00 Test Item Value Reference Range Interpretation Comments GLUCOSE (test code = 2217) 161 MG/DL BUN (test code = 2208) 8 MG/DL CREATININE (test code = 2214) 0.85 MG/DL eGFR AMER. (test code 113 ML/MIN/1.73 = 26177) eGFR NON- AMER. (test 97 ML/MIN/1.73 code = 07898) CALC BUN/CREAT (test code = 9 RATIO [...] code = 2219) 16 U/L COMPREHENSIVE METABOLIC [id number] 00:00:00 Test Item Value Reference Range Interpretation Comments GLUCOSE (test code = 2217) 161 MG/DL BUN (test code = 2208) 8 MG/DL CREATININE (test code = 2214) 0.85 MG/DL eGFR AMER. (test code 113 ML/MIN/1.73 = 61363) eGFR NON- AMER. (test 97 ML/MIN/1.73 code = 83284) CALC BUN/CREAT (test code = 9 RATIO [...] CALC GLOBULIN (test code = 3.0 G/DL 224) CALC A/G RATIO (test code = 1.5 RATIO 2234) BILIRUBIN, TOTAL (test code = 0.4 MG/DL 2206) ALKALINE PHOSPHATASE (test 101 U/L code = 2204) AST (test code = 2218) 17 U/L ALT (test code = 2219) 16 U/L LIPID [id number] 00:00:00 Test Item Value Reference Range Interpretation Comments CHOLESTEROL (test code = 2210) 94 MG/DL TRIGLYCERIDES (test code = 2232) 142 MG/DL HDL CHOLESTEROL (test code = 2220) 33 MG/DL CALC LDL CHOL (test code = 2237) 38 MG/DL RISK RATIO LDL/HDL (test code = 1.15 RATIO 2238) LIPID [id number] 00:00:00 Test Item Value Reference Range Interpretation Comments CHOLESTEROL (test code = 2210) 94 MG/DL TRIGLYCERIDES (test code = 2232) 142 MG/DL HDL CHOLESTEROL (test code = 2220) 33 MG/DL CALC LDL CHOL (test code = 2237) 38 MG/DL RISK RATIO LDL/HDL (test code = 1.15 RATIO 2238) COMPREHENSIVE METABOLIC [id number] 00:00:00 Test Item Value Reference Range Interpretation Comments GLUCOSE (test code = 2217) 142 MG/DL BUN (test code = 2208) 10 MG/DL CREATININE (test code = 2214) 0.96 MG/DL eGFR AMER. (test code 102 ML/MIN/1.73 = 24857) eGFR NON- AMER. (test 88 ML/MIN/1.73 code = 46163) CALC BUN/CREAT (test code = 10 RATIO [...] BILIRUBIN, TOTAL (test code = 0.3 MG/DL 2207) ALKALINE PHOSPHATASE (test 122 U/L code = 2204) AST (test code = 2218) 14 U/L ALT (test code = 2219) 15 U/L COMPREHENSIVE METABOLIC [id number] 00:00:00 Test Item Value Reference Range Interpretation Comments GLUCOSE (test code = 2217) 142 MG/DL BUN (test code = 2208) 10 MG/DL CREATININE (test code = 2214) 0.96 MG/DL eGFR AMER. (test code 102 ML/MIN/1.73 = 24294) eGFR NON- AMER. (test 88 ML/MIN/1.73 code = 47935) CALC BUN/CREAT (test code = 10 RATIO 2235) SODIUM (test code = 2231) 140 MEQ/L POTASSIUM (test code = 2228) 3.3 MEQ/L CHLORIDE (test code = 2215) 102 MEQ/L CARBON DIOXIDE (test code = 24 MEQ/L 2206) CALCIUM (test code = 2209) 8.7 MG/DL PROTEIN, TOTAL (test code = 6.9 G/DL 2229) ALBUMIN (test code = 2201) 3.8 G/DL CALC GLOBULIN (test code = 3.1 G/DL 2240) CALC A/G RATIO (test code = 1.2 RATIO 2234) BILIRUBIN, TOTAL (test code = 0.3 MG/DL 2207) ALKALINE PHOSPHATASE (test 122 U/L code = 2204) AST (test code = 2218) 14 U/L ALT (test code = 2219) 15 U/L LIPID [id number] 00:00:00 Test Item Value Reference Range Interpretation Comments CHOLESTEROL (test code = 2210) 94 MG/DL TRIGLYCERIDES (test code = 2232) 142 MG/DL HDL CHOLESTEROL (test code = 2220) 33 MG/DL CALC LDL CHOL (test code = 2237) 38 MG/DL RISK RATIO LDL/HDL (test code = 1.15 RATIO 2238) LIPID [id number] 00:00:00 Test Item Value Reference Range Interpretation Comments CHOLESTEROL (test code = 2210) 94 MG/DL TRIGLYCERIDES (test code = 2232) 142 MG/DL HDL CHOLESTEROL (test code = 2220) 33 MG/DL CALC LDL CHOL (test code = 2237) 38 MG/DL RISK RATIO LDL/HDL (test code = 1.15 RATIO 2238) COMPREHENSIVE METABOLIC [id number] 00:00:00 Test Item Value Reference Range Interpretation Comments GLUCOSE (test code = 2217) 142 MG/DL BUN (test code = 2208) 10 MG/DL CREATININE (test code = 2214) 0.96 MG/DL eGFR AMER. (test code 102 ML/MIN/1.73 = 11670) eGFR NON- AMER. (test 88 ML/MIN/1.73 code = 41982) CALC BUN/CREAT (test code = 10 RATIO [...] A/G RATIO (test code = 1.2 RATIO 4) BILIRUBIN, TOTAL (test code = 0.3 MG/DL 2206) ALKALINE PHOSPHATASE (test 122 U/L code = 2204) AST (test code = 2218) 14 U/L ALT (test code = 2219) 15 U/L COMPREHENSIVE METABOLIC [id number] 00:00:00 Test Item Value Reference Range Interpretation Comments GLUCOSE (test code = 2217) 142 MG/DL BUN (test code = 2208) 10 MG/DL CREATININE (test code = 2214) 0.96 MG/DL eGFR AMER. (test code 102 ML/MIN/1.73 = 16098) eGFR NON- AMER. (test 88 ML/MIN/1.73 code = 52901) CALC BUN/CREAT (test code = 10 RATIO 2235) SODIUM (test code = 2231) 140 MEQ/L POTASSIUM (test code = 2228) 3.3 MEQ/L CHLORIDE (test code = 2215) 102 MEQ/L CARBON DIOXIDE (test code = 24 MEQ/L 2205) CALCIUM (test code = 2209) 8.7 MG/DL PROTEIN, TOTAL (test code = 6.9 G/DL 2229) ALBUMIN (test code = 2201) 3.8 G/DL CALC GLOBULIN (test code = 3.1 G/DL 2240) CALC A/G RATIO (test code = 1.2 RATIO 2234) BILIRUBIN, TOTAL (test code = 0.3 MG/DL 220) ALKALINE PHOSPHATASE (test 122 U/L code = 2204) AST (test code = 2218) 14 U/L ALT (test code = 2219) 15 U/L HEMOGLOBIN [id number] 00:00:00 Test Item Value Reference Range Interpretation Comments HEMOGLOBIN A1c (test code = 26555) 9.0 % HEMOGLOBIN [id number] 00:00:00 Test Item Value Reference Range Interpretation Comments HEMOGLOBIN A1c (test code = 65529) 9.0 % HEMOGLOBIN [id number] 00:00:00 Test Item Value Reference Range Interpretation Comments HEMOGLOBIN A1c (test code = 38916) 9.0 % HEMOGLOBIN [id number] 00:00:00 Test Item Value Reference Range Interpretation Comments HEMOGLOBIN A1c (test code = 41032) 9.0 % HEMOGLOBIN [id number] 00:00:00 Test Item Value Reference Range Interpretation Comments HEMOGLOBIN A1c (test code = 28801) 9.0 % HEMOGLOBIN [id number] 00:00:00 Test Item Value Reference Range Interpretation Comments HEMOGLOBIN A1c (test code = 86772) 9.0 % POCT GLUCOSE (AUTOMATED)2019-12-07 22:15:00 Test Item Value Reference Range Interpretation Comments POCT GLU (test code = 7988680860) 114 mg/dL 70-110 H Lab Interpretation (test code = Abnormal 56654-0) [facility] 17:14:00 Test Item Value Reference Range Interpretation Comments POCT GLU (test code = 8301347167) 129 mg/dL 70-110 H Lab Interpretation (test code = Abnormal 50741-0) [facility] METABOLIC PANEL (NA, K, CL, CO2, GLUCOSE, BUN, CREATININE, CA)2019-12-07 14:51:00 Test Item Value Reference Range Interpretation Comments NA (test code = 141 mmol/L 135-145 4484355163) K (test code = 3.3 mmol/L 3.5-5 L 7425310450) CL (test code = 104 mmol/L 98-108 0308017283) CO2 TOTAL (test code = 30 mmol/L 23-31 8723517577) AGAP (test code = 2-16 7005512988) BUN (test code = 12 mg/dL 7-23 7688083295) GLUCOSE (test code = 127 mg/dL 70-110 H 5188888429) CREATININE (test code = 1.13 mg/dL 0.6-1.25 4587268375) CALCIUM (test code = 8.3 mg/dL 8.6-10.6 L 5781441823) eGFR Calculation mL/min/1.73m2 (Non-) (test code = 2022775450) eGFR Calculation mL/min/1.73m2 () (test code = 9756951541) LUIS (test code = LUIS) Association of [...] tests). Lab Interpretation Abnormal (test code = 76720-8) [facility] WITH [id number] 14:34:00 Test Item Value Reference Range Interpretation [...] (test code = 37.7 fL 38.5-51.6 L 42883-6) RDW-CV (test code = 11.9 % 12.1-15.4 L 788-0) PLT (test code = See_Comment [Automated 777-3) message] The sy stem which generated this result transmitted reference range : 150 - 328 10*3/ ?L. The reference r neno was not used to interpret this result as normal/abnormal . MPV (test code = 8.4 fL 9.8-13 L 72326-7) NRBC/100 WBC (test See_Comment [Automat ed code = 4947323207) message] The system which generated this result transmitted reference range : 0.0 - 10.0 /100 WBCs. The refer ence range was not u sed to interpret th is result as normal/abnormal . NRBC x10^3 (test code <0.01 See_Comment [Auto mated = 7591962334) message] The s [email or web address] which generated this result transmitted reference range : 10*3/?L. The reference range was not used to interpret this result as normal/abnormal . GRAN MAT (NEUT) % 79.8 % (test code = 770-8) IMM GRAN % (test code 0.50 % = 4501372073) LYMPH % (test code = 10.6 % 736-9) MONO % (test code = 8.2 % 5905-5) EOS % (test code = 0.6 % 713-8) BASO % (test code = 0.3 % 706-2) GRAN MAT x10^3(ANC) 8.62 10*3/uL 1.99-6.95 H (test code = 7691025522) IMM GRAN x10^3 (test 0.05 10*3/uL 0-0.06 code = 3093949975) LYMPH x10^3 (test code 1.14 10*3/uL 1.09-3.23 = 731-0) MONO x10^3 (test code 0.89 10*3/uL 0.36-1.02 = 742-7) EOS x10^3 (test code = 0.07 10*3/uL 0.06-0.53 711-2) BASO x10^3 (test code 0.03 10*3/uL 0.01-0.09 = 704-7) Lab Interpretation Abnormal (test code = 39742-9) [facility] GLUCOSE (AUTOMATED)2019-12-07 13:14:00 Test Item Value Reference Range Interpretation Comments POCT GLU (test code = 0940126290) 127 mg/dL 70-110 H Lab Interpretation (test code = Abnormal 00976-6) [facility] GLUCOSE (AUTOMATED)2019-12-07 09:26:00 Test Item Value Reference Range Interpretation Comments POCT GLU (test code = 8072263304) 157 mg/dL 70-110 H Lab Interpretation (test code = Abnormal 51281-0) [facility] GLUCOSE (AUTOMATED)2019-12-07 05:06:00 Test Item Value Reference Range Interpretation Comments POCT GLU (test code = 6598531036) 244 mg/dL 70-110 H Lab Interpretation (test code = Abnormal 44375-9) [facility] GLUCOSE (AUTOMATED)2019-12-07 01:21:00 Test Item Value Reference Range Interpretation Comments POCT GLU (test code = 7096401282) 184 mg/dL 70-110 H Lab Interpretation (test code = Abnormal 09168-0) [facility] GLUCOSE (AUTOMATED)2019-12-06 23:42:00 Test Item Value Reference Range Interpretation Comments POCT GLU (test code = 4460214929) 99 mg/dL 70-110 Lab Interpretation (test code = Normal 45557-8) [facility]2019-12-06 18:13:00 Test Item Value Reference Range Interpretation Comments SARS-CoV-2 Rapid ID NOW Not Detected Not Detected (test code = 71413-0) LUIS (test code = LUIS) ID NOW COVID-19 Assay is an isothermal nucleic acid amplification test intended for the qualitative detection of nucleic acid from SARS-CoV-2 viral RNA in nasopharyngeal ([employer]IV[employer]) specimens. It is used under Emergency Use [...] indicated. Lab Interpretation Normal (test code = 30679-2) [facility] GLUCOSE (AUTOMATED)2019-12-06 16:57:00 Test Item Value Reference Range Interpretation Comments POCT GLU (test code = 0930911155) 107 mg/dL 70-110 Lab Interpretation (test code = Normal 59389-2) [facility] GLUCOSE (AUTOMATED)2019-12-06 13:17:00 Test Item Value Reference Range Interpretation Comments POCT GLU (test code = 9166114372) 103 mg/dL 70-110 Lab Interpretation (test code = Normal 96575-5) [facility] GLUCOSE (AUTOMATED)2019-12-06 09:17:00 Test Item Value Reference Range Interpretation Comments POCT GLU (test code = 0721915595) 103 mg/dL 70-110 Lab Interpretation (test code = Normal 36021-0) [facility] 05:25:00 Test Item Value Reference Range Interpretation Comments POCT GLU (test code = 9213393759) 115 mg/dL 70-110 H Lab Interpretation (test code = Abnormal 18069-9) [facility] GLUCOSE (AUTOMATED)2019-12-06 01:54:00 Test Item Value Reference Range Interpretation Comments POCT GLU (test code = 1587797491) 131 mg/dL 70-110 H Lab Interpretation (test code = Abnormal 26791-4) [facility] GLUCOSE (AUTOMATED)2019-12-05 22:05:00 Test Item Value Reference Range Interpretation Comments POCT GLU (test code = 1035238407) 192 mg/dL 70-110 H Lab Interpretation (test code = Abnormal 05023-1) [facility] GLUCOSE (AUTOMATED)2019-12-05 16:58:00 Test Item Value Reference Range Interpretation Comments POCT GLU (test code = 0200586885) 99 mg/dL 70-110 Lab Interpretation (test code = Normal 20579-6) [facility] GLUCOSE (AUTOMATED)2019-12-05 12:49:00 Test Item Value Reference Range Interpretation Comments POCT GLU (test code = 7797875875) 140 mg/dL 70-110 H Lab Interpretation (test code = Abnormal 96809-8) [facility] GLUCOSE (AUTOMATED)2019-12-05 10:00:00 Test Item Value Reference Range Interpretation Comments POCT GLU (test code = [id number]) 128 mg/dL 70-110 H Lab Interpretation (test code = Abnormal 24328-2) [facility] GLUCOSE (AUTOMATED)2019-12-05 05:23:00 Test Item Value Reference Range Interpretation Comments POCT GLU (test code = 9281181382) 145 mg/dL 70-110 H Lab Interpretation (test code = Abnormal 35456-4) [facility] GLUCOSE (AUTOMATED)2019-12-04 21:28:00 Test Item Value Reference Range Interpretation Comments POCT GLU (test code = 9744262661) 149 mg/dL 70-110 H Lab Interpretation (test code = Abnormal 56710-5) [facility] GLUCOSE (AUTOMATED)2019-12-04 16:50:00 Test Item Value Reference Range Interpretation Comments POCT GLU (test code = 8349552335) 131 mg/dL 70-110 H Lab Interpretation (test code = Abnormal 79658-7) [facility] GLUCOSE (AUTOMATED)2019-12-04 13:33:00 Test Item Value Reference Range Interpretation Comments POCT GLU (test code = 9617528423) 117 mg/dL 70-110 H Lab Interpretation (test code = Abnormal 31711-5) [facility] METABOLIC PANEL (NA, K, CL, CO2, GLUCOSE, BUN, CREATININE, CA)2019-12-04 11:21:00 Test Item Value Reference Range Interpretation Comments NA (test code = 140 mmol/L 135-145 4834851098) K (test code = 3.3 mmol/L 3.5-5 L 7143611269) CL (test code = 105 mmol/L 98-108 6464050440) CO2 TOTAL (test code = 28 mmol/L 23-31 9900113329) AGAP (test code = 2-16 7859880487) BUN (test code = 9 mg/dL 7-23 5904434487) GLUCOSE (test code = 124 mg/dL 70-110 H 0963277621) CREATININE (test code = 1.04 mg/dL 0.6-1.25 3772431772) CALCIUM (test code = 8.7 mg/dL 8.6-10.6 1303265910) eGFR Calculation mL/min/1.73m2 (Non-) (test code = 5597400658) eGFR Calculation mL/min/1.73m2 () (test code = 8140077967) LUIS (test code = LUIS) Association of [...] tests). Lab Interpretation Abnormal (test code = 64223-8) [facility] WITH [id number] 10:41:00 Test Item Value Reference Range Interpretation Comments WBC (test code = See_Comment [Automated 6690-2) message] The sy stem which generated this result transmitted reference range : 4.20 - 10.70 10*3/?L. The reference range was not used to interpret this result as normal/abnormal . RBC (test code = See_Comment L [Automated 209-8) message] The sy stem which generated this [...] (test code = 37.9 fL 38.5-51.6 L 28633-0) RDW-CV (test code = 11.8 % 12.1-15.4 L 788-0) PLT (test code = See_Comment [Automated 777-3) message] The sy stem which generated this result transmitted reference range : 150 - 328 10*3/ ?L. The reference r neno was not used to interpret this result as normal/abnormal . MPV (test code = 8.3 fL 9.8-13 L 15328-7) NRBC/100 WBC (test See_Comment [Automat ed code = 2539757624) message] The system which generated this result transmitted reference range : 0.0 - 10.0 /100 WBCs. The refer ence range was not u sed to interpret th is result as normal/abnormal . NRBC x10^3 (test code <0.01 See_Comment [Auto mated = 6657659871) message] The s ystem which generated this result transmitted reference range : 10*3/?L. The reference range was not used to interpret this result as normal/abnormal . GRAN MAT (NEUT) % 70.3 % (test code = 770-8) IMM GRAN % (test code 0.20 % = 2006900979) LYMPH % (test code = 18.6 % 736-9) MONO % (test code = 8.2 % 5905-5) EOS % (test code = 2.3 % 713-8) BASO % (test code = 0.4 % 706-2) GRAN MAT x10^3(ANC) 5.86 10*3/uL 1.99-6.95 (test code = 7043445078) IMM GRAN x10^3 (test <0.03 0-0.06 code = 5992570858) LYMPH x10^3 (test code 1.55 10*3/uL 1.09-3.23 = 731-0) MONO x10^3 (test code 0.68 10*3/uL 0.36-1.02 = 742-7) EOS x10^3 (test code = 0.19 10*3/uL 0.06-0.53 711-2) BASO x10^3 (test code 0.03 10*3/uL 0.01-0.09 = 704-7) Lab Interpretation Abnormal (test code = 33589-9) [facility] GLUCOSE (AUTOMATED)2019-12-04 05:06:00 Test Item Value Reference Range Interpretation Comments POCT GLU (test code = 6484080495) 126 mg/dL 70-110 H Lab Interpretation (test code = Abnormal 75424-6) [facility] GLUCOSE (AUTOMATED)2019-12-04 01:12:00 Test Item Value Reference Range Interpretation Comments POCT GLU (test code = 1298913200) 187 mg/dL 70-110 H Lab Interpretation (test code = Abnormal 04886-8) [facility] GLUCOSE (AUTOMATED)2019-12-03 21:14:00 Test Item Value Reference Range Interpretation Comments POCT GLU (test code = 9577562773) 117 mg/dL 70-110 H Lab Interpretation (test code = Abnormal 11324-3) [facility] GLUCOSE (AUTOMATED)2019-12-03 17:21:00 Test Item Value Reference Range Interpretation Comments POCT GLU (test code = 2689156919) 238 mg/dL 70-110 H Lab Interpretation (test code = Abnormal 13786-7) [facility] GLUCOSE (AUTOMATED)2019-12-03 13:37:00 Test Item Value Reference Range Interpretation Comments POCT GLU (test code = 2639696493) 173 mg/dL 70-110 H Lab Interpretation (test code = Abnormal 76120-6) [facility] (NA, K, CL, CO2, GLUCOSE, BUN, CREATININE, CA)2019-12-03 10:47:00 Test Item Value Reference Range Interpretation Comments NA (test code = 137 mmol/L 135-145 1576357584) K (test code = 3.2 mmol/L 3.5-5 L 1457208158) CL (test code = 101 mmol/L 98-108 3344293118) CO2 TOTAL (test code = 28 mmol/L 23-31 1768102072) AGAP (test code = 2-16 7639517673) BUN (test code = 12 mg/dL 7-23 8344534414) GLUCOSE (test code = 164 mg/dL 70-110 H 0357429853) CREATININE (test code = 1.15 mg/dL 0.6-1.25 3623861232) CALCIUM (test code = 8.4 mg/dL 8.6-10.6 L 6747095859) eGFR Calculation mL/min/1.73m2 (Non-) (test code = 4529451901) eGFR Calculation mL/min/1.73m2 () (test code = 2706504506) LUIS (test code = LUIS) Association of [...] tests). Lab Interpretation Abnormal (test code = 45034-2) [facility] WITH [id number] 10:39:00 Test Item Value Reference Range Interpretation Comments WBC (test code = See_Comment [Automated 8990-2) message] The sy stem which generated this [...] (test code = 37.4 fL 38.5-51.6 L 94806-2) RDW-CV (test code = 11.5 % 12.1-15.4 L 788-0) PLT (test code = See_Comment [Automated 777-3) message] The sy stem which generated this result transmitted reference range : 150 - 328 10*3/ ?L. The reference r neno was not used to interpret this result as normal/abnormal . MPV (test code = 8.7 fL 9.8-13 L 54724-5) NRBC/100 WBC (test See_Comment [Automat ed code = 7692925179) message] The system which generated this result transmitted reference range : 0.0 - 10.0 /100 WBCs. The refer ence range was not u sed to interpret th is result as normal/abnormal . NRBC x10^3 (test code <0.01 See_Comment [Auto mated = 8151566638) message] The s ystem which generated this result transmitted reference range : 10*3/?L. The reference range was not used to interpret this result as normal/abnormal . GRAN MAT (NEUT) % 70.6 % (test code = 770-8) IMM GRAN % (test code 0.40 % = 2662654114) LYMPH % (test code = 18.0 % 736-9) MONO % (test code = 8.5 % 5905-5) EOS % (test code = 2.1 % 713-8) BASO % (test code = 0.4 % 706-2) GRAN MAT x10^3(ANC) 5.33 10*3/uL 1.99-6.95 (test code = 8131623720) IMM GRAN x10^3 (test 0.03 10*3/uL 0-0.06 code = 0561210312) LYMPH x10^3 (test code 1.36 10*3/uL 1.09-3.23 = 731-0) MONO x10^3 (test code 0.64 10*3/uL 0.36-1.02 = 742-7) EOS x10^3 (test code = 0.16 10*3/uL 0.06-0.53 711-2) BASO x10^3 (test code 0.03 10*3/uL 0.01-0.09 = 704-7) Lab Interpretation Abnormal (test code = 62699-7) [facility] GLUCOSE (AUTOMATED)2019-12-03 09:16:00 Test Item Value Reference Range Interpretation Comments POCT GLU (test code = 4981948035) 179 mg/dL 70-110 H Lab Interpretation (test code = Abnormal 55455-5) [facility] GLUCOSE (AUTOMATED)2019-12-03 05:53:00 Test Item Value Reference Range Interpretation Comments POCT GLU (test code = 3205178412) 227 mg/dL 70-110 H Lab Interpretation (test code = Abnormal 01777-9) [facility] GLUCOSE (AUTOMATED)2019-12-03 02:02:00 Test Item Value Reference Range Interpretation Comments POCT GLU (test code = 9929375363) 211 mg/dL 70-110 H Lab Interpretation (test code = Abnormal 30771-8) [facility] GLUCOSE (AUTOMATED)2019-12-03 01:29:00 Test Item Value Reference Range Interpretation Comments POCT GLU (test code = 2572215630) 213 mg/dL 70-110 H Lab Interpretation (test code = Abnormal 06917-0) [facility] GLUCOSE (AUTOMATED)2019-12-02 23:05:00 Test Item Value Reference Range Interpretation Comments POCT GLU (test code = 2998212918) 227 mg/dL 70-110 H Lab Interpretation (test code = Abnormal 67451-9) [facility] [id number] 19:54:00 Test Item Value Reference Range Interpretation Comments Case Report (test code Surgical Pathology ? ? = [id number]) ?Case: [id number] ? Authorizing Provider: ?Yadira Nick MD ? ? ?Collected: ? 11/27/2019 1507 ?Ordering Location: ? ? [facility] OR ? Received: ?11/28/2019 0907 ? Department ? Pathologist: ? Jeb, ? MD Rach ?Specimen: ? ?TOE, Left first and second toe ? Final Diagnosis (test g4pqyFSeORVmq2sjAJPxpT code = 5053758465) FuZzEwMzNcZnRuYmpcdWMx LEtgdcKiEUtys9BxF9PkMb AwMFxhbnNpXGRlZmxhbmcx RQUhXNA6ncNbZYCuQHukIA QwDYmuGy2yzOWqpYdnPgSq GHZlr0sybsAYlnerxHr1l2 cqQPZsPaV5eIWbXWthL8gp mdPmaCHdJHFfJYs5nAefFu DpQFYru4Ongi5uDZLyqJVb t2T8XCMTc9MmiCZtCU7awp l3rCesE59vx0T9SdqpX2yc XPWrGBRpK1ImGL7zKFKkPo f0BWJ1HDJ2EZKfIXXxU8Qi YS4eRHMoeDWyPRn7w5yznL yoLIHvNQR1p3jtVOtpiuNz QO3rph5epEg7l4ymmiWnPI ReQQTdtLAGWIEoL3LsqAac Zy9erIc1xRbcJdaqBMR3Eu v3WH7jse61fyl1zGkiHCYp euqnAcZ3LOeoCLXtbinsOI f8DFvuQKWraKVpPBGpoXZz M8AoGQzlQY7gfgj1WqKuEE 6czydyUAzkWMQbYWJ6KhIv AVDak6KyvjtkRsVumc3bqc 41JJG5h9FfdMpsJDJ6MZM6 NsCgFu1qwAJwQPQqYH0oAh IjbMHsIVTkjy44nJncNKtx gxIyhY8qIhMwLXIixUHaJS EqMTUbL3mqPxRnjgKuR6yo B1GbURMkNFUyJYZtUjQwgn Lic5Emjz66BTWeggUbz4Hg gBMgoBj6b5sxTVStJDVffE rto0uyTSU5RQVlL3K4cEHo f1neFBzrNRYnyDN1vpApMX GnnOFvW9QqeR6wQNekGV8p hat3e7hbDtHfOJ8ywiica1 bgSDwzLZXgDAQ8PoAxMMSr t0PnnmgvQoHuy7EblCUpEI yjJ52pj512DHWmjfXyN5xq bGFpblxwbGFpblxmMFxmcz R0GYOjRNDfRAmtKIYiXRTw MjBcbGFuZzEwMzNcaGljaF vcRErrViRhDFPfFBvtY4dx ZjFcZnMyMFxwYXJccGFyXG j3cfXsnxjnjJiziNEfwjqb NUqhxrN6BQAgAKnhSZZtBE ZzMjBcbGFuZzEwMzNcaGlj aFxmMVxkYmNoXGYxXGxvY2 blCsSeAjHsRNEZMxWEU0Th AIiKRtBcGabQQ6GuYR5INE PTK74YMLCTZ9UfDELKHIBA QMZDG86dyYZiXXBmxvTTID KTFAUUQ8S1YOMcRJnqWQNr XGZzMjBcbGFuZzEwMzNcaG ljaFxmMlxkYmNoXGYyXGxv A8baLyDrO5DoVKSbSzGmtT FyXHBsYWluXGYxXGZzMjBc bGFuZzEwMzNcaGljaFxmMV lzKoEyJLPzAPknI5ylDoJl SjLlCAHiIYHqEL5dXWCUWP SyS1IWNX7PLPFDDVIFVgNR VOAAHfUNZqplCJ7cVbPYSF SNAT1UID1AAujZXpUtdZKm TAZnbzXstFuklQ9wZzEfUc MyNFxwbGFpblxmMVxmczIw VFikwjsiJQDhGAycG1emVl SgBICygKtkZUvnb8QuYHYl XGZzMjAgICAgICAtIElTQ0 jATHwRRYtJDlpNEK6KCUfZ OYwrBOVIIKQDGONLH7GPB0 BaPd6ZJSSSIX3DQZMgSDpa XGYyXGZzMjBcbGFuZzEwMz NcaGljaFxmMlxkYmNoXGYy BJkmO3tbFiTzC1NvBQFbIn BccGFyXHFsXHBsYWluXGYw UWGbSfClrPdqiR4pBuHzHt OoSTqgZX4kTNUhF6yblAPf RKDhDXKqF4qtQcMpeX0xkM xmMVxmczIwICAgICAgLSBT C8LPQXKOC0GJDBSRBDHSV0 IRP10xYTBBZ6tXKkGSA07f VklBQkxFXHBhclxsdHJwYX DwfNnevJdbgL1zKhSzJcKt NFxwbGFpblxmMVxmczIwXG ditmmzQLCdQAbaN5olUcKd MMEkdNzaDRyqs1UaBFRjUQ GdTqJuoJPfHYRMK79NWJGN Z2C9NDPhWVpoGCJyWUAaNl BcbGFuZzEwMzNcaGljaFxm YklhXrBkUAPrBDdtT8gsXg VbM9RlSXNmPvBleYDnVOHw mkBpkMgysM7fCfQfVrYqYQ xwbGFpblxmMVxmczIwXGxh voiyBVGwIXxoK1qpOvRtWC BrvDwwBSbus4YuCFZsBWNr FdXiBJWnVQFwILbCW3cRKM vLIXtBAfjZPX7RROvNZPfi SJCXOIMFAGZFO5VGF8JpEf 5YGVZBXQ2NYQAsyrCdUZQb RX0wVw2PHMtGSAzeGTaCRF HJHXRNFhzPNQbXRjlVQM3Q HLeEYoyiAj2kMDKJGTGxC9 TLMC4BTLRVSSULR7ypTMAa ICAgICAtIEJPTkUgUkVTRU WMGX8DER8ZUwhBEqCNUNUX OXPuNP3HAT8WR1PUYKGHRF GWPvAJN8HCF09NYTdZAWeB XHBsYWluXGYyXGZzMjBcbG FuZzEwMzNcaGljaFxmMlxk EoPiBXCsHCjyS2fvEwMaI2 YyXGZzMjBccGFyXHFsXHBs YWluXGYwXGZzMjRccGxhaW 6zByEcKfYrNZitTM8dBUNi Q1psyGXdGBDhFCTnC5eaVz OiiG8qnBioEKosmcDrXKWu ZYNwESULL2WRMXOIS6YWDQ KSUODXC3LDY94mGCIXX8vM ZnYQD19lYbyDGyvXRIHvoe szYODjmTghkN8lWwSsNmAx EikeNK9fOLTzR5shtCLtLC HgVBUrK3meVjSnsP8jrZmh MVxjZjJcZnMyMiBYaWFvdG RlJyKQmYloUWAoNQdiVz2l MDIwICAxOjQzIFBNXHBsYW luXGYxXGZzMjBcbGFuZzEw MzNcaGljaFxmMVxkYmNoXG HiQNutS5cmTuTjLmIaSRla TAPvdCTzGBTzjy44YBQ9Ce Aie8O3NAOcFhNdFIUdQW2c nEbpIEZnFC6hNPOkY0eksI 1yjqg2LoDqKRNzJtH2FGOp eaK2Dhk0PFPeFIobm1pqz3 IpW0PbtZErgKf9g1djQIYj MuK3lWTwNAhnC1jnodQsjF CyKOZyUIp2vNakGpEiCODj g7ptjoGnIoMhCARtSWHoNO FxvUnnnrk9bE80QYLaqE1v gAKmEOyrcnHsTaS5LWdmEG YpJsM7NHRztHSoDBZoO7kp ZWQwXGdyZWVuMFxibHVlMC G0kZosj1S2wFFktLQspVod OwBhAsQcCUWSe8GxHTa8yQ fgO0GzXZDgReS5fLFwFIAw GHcrLMPdNCDnpmM9tC02GY sgzhJ0fZZgc7Lsu74wp053 gZ1fdTWlSEI7PSFjJMBlkP JhJNJvDNP5ZXSvzMMvN8db PTUoRB9rxieiLNbeJGrvUT MjaXC7GGQivRIzD9JoPMEb YHdqUPXygbe5DfTtKi7qlW JfcKoeYOjcf1yct3nfgZTq Uls0ZBIxBcEhEzaaDMgus9 Myx8ksBLNmvn8oMVY8zMNc rBmrm9U5jKTkXBVwhXPjks EkTICwAnU3PUhjGT0frq57 RLGnFFP0zl5kuRLsxMeipp PjvNCaBUvnC0IjSGZpp270 TZFeD9GoDMGje5W2bpQgUm WcFGCqlYZ2loU8VGHlPVt3 dYWbyvD7fyZpuEObX1eifL 4tCRJzSB2jjcfht7fnZBkb NKmeEYEqgYM4jdQ9UDXocW SdJ1WegE0wBWOvFJbzPOTr txt1WmNiUa5gdNNffSfbAE xzYmtwYWdlXHBnbmNvbnRc cGduZGVjXHBsYWluXHBsYW luXGYwXGZzMjRccWxccGxh iG2rGwZwCiOcOQpjEL6qVC PgH1xqaMTyHEJnBIFnB7uw McBcnL2cjJfnBTseVqDmCm MyMFxwYXIgSSBoYXZlIHBl epUyobStpDhnbhW2mWJ1NI DvDNehDDUbERCxoVKsoe8e fBiuPSVwIN3vFUPvqlGaXF eppJhsWYlyHZG4WJSumKMq dHMgbWFkZSBieSByZXNpZG LmqLYuYMJrzBjdy2Ewh9Ph fHM5rM7uh6car5OvWRQshQ K1CA52tpZ1mS3lQJEyLK0m RBQkTL0axPQdtCPmJSRfr1 4gdGhpcyByZXBvcnQuXHBs YWluXGYyXGZzMjhcbGFuZz EwMzNcaGljaFxmMlxkYmNo JDKrIJtoX5xxMtRjErYpKG zyWSJ5tC== Clinical Information Gang[place] of toe of (test code = left foot [I96] 3329697420) Gross Description (test z7tycZYtFLCxeCWmDeYuON code = 0303279299) ZnVPQtu2iwQVVmzRVaCxZl MzNcZnRuYmpcdWMxXGRlZm Hjr5vkr136uUYvx1ihMAZm UiL0mZMuMHMcmIQoJ720QU PeWKqfc8uom1UnWRVetYTf t2B1LSDQoorrfRm0jTesV4 8pt8J0CjnvZ2scAWDqHUqw FAGqUYutdSNyUYY7DEJdOZ F5THemwrSfytK7QXmakFKf DuC8YWl4s3shwEmzDFVsLR Q0o9jaWJofjsCuWS2vlk6a jKs7m0udafQtDSHoKRNuaD VUNPDkT4TzcGqrJx4ylXj7 bLvxDukwZCQ1Uzq1CN7abx 57dbl1oJmtKFUwvxmpViE2 ZTlbPYSpeyoxOQv5OMnwXA MzuRSnTUMksBHkV9LgSNtj DG8imzh7JxOwIR6clfilWP jzWWUeFYT2ZlQiLWKsx6Bv tklqGsPqpm3jqe48XKP7j0 ImyMgaVAG9RON3ZoExTx2d nEQhBUKjZF8bSrGghYKjYR Gqqu67wSfvTTezraQigY5t MuPnUTDntRJtKJBvTL2xgK UhDJOkdA6jmlxdRLDoIiPg hjxuKNUdtJanciWqWt3axT vzBHG6EMbuK9shjB1qIbG4 OJvuL3hzhI2zOSt3PRztqI N5ADBniG3wAU4xiznjn7dr HTR2DWbvOSRpxsL8mnImOU VnzVKlM7NhoH08FoDjeDVk W9QuhB3xSPfsMRLrwpw9Nk QpQe5xxDKrzHV2VBbcXieh YWdlXHBnbmNvbnRccGduZG VjXHBsYWluXHBsYWluXGYw LCNiXhFiyOmbzUadpE6oVk BcZnMyMFxwbGFpblxmMVxm czIwIFNwZWNpbWVuIEEgaX SfjmJyTQg3KEJrgK3zEf0o vSNevH7qvYGcVHzdSWI6nN AiJHJbCKLoBIExZN61Y1Vc bmFtZSwgVUggbnVtYmVyIC ZuARC1JDVnbgS1VXCaCBIf FFOkmjJriQ9oArraGD8sIR AfyqFft6ScLA9mZBQgTfkg c2SgHYzeyCMbRQIhUKY2YK SeBUZ2SLPhRwOdhFgoCM3j FCRbo6Bnp52qUYZkY2t0EH s1ToKifATmHbkuaRYkCavy K82sKUJswKabl8z7tKOxWC BiuVnvRR5mMPGcz49tMNHe n7WfzZgtwuUqSLIsmI1ntD nmg9FoxHF6nUWleUZtcPbg LXuafMyftUXylK5qCe43pJ JpuTjzkMVsBHZlSBRkqh3c iCYyrYOoFWP3y6j1MUcxvX yxo5uyrRyusY7jVVJquS5s HA6zQRKdkCWeQS6iRRS8n7 WtLIzebi6nSAziUTNkqeD9 HGPsW0h0XRcsncZousE3nB XpqzEpbkN0lARzaXH1UVRg gVNaa5UhA8GtTAPbIGF5VT FmQfK2CHVzLtEkdBthcQvg lTFpaqDwXeJlE14dTlCusU B9rWEezeWgleEoeXCku9il I5FwZrApzHhpo5BaXEZey4 KtaUncheQcLXBbyH9iXS9e UJHoXuPfoHQibd9sLSHmWB Fnt16vXWXpr7WlxNuoflFx TZRahI5fFW1fXYPaHZFySM hyKJOkd65jIFAmxT3olUFo GWCePTWnSKZesdW1nIBifW LzuWWkZCJqqDSaxIGgXI84 IEirVQ79JAXmXAV7bLE5HU oqKAHbIEYvrNOylu3gWXFv FNWxu8F7URVho8P3GRCnEC EhB3May84yqRPaX3hgAJDf RHLnCtNmS62jAxQnqYU0iV KvJy7cEIEjKPBcK3Fkd21l xRIbQ3xqGhKAqRNnLdgoa6 XsVBgqoEGxlZGzg4LovOfd bsNrIEQaREEwxpSlmCI8JA 4tcmVkLCBmaXJtIGJvbmUg C5F5MEL9isQuJ1CwUODgWW D2TQ9olrTjEKVkVMfyONhz R4PbUI2lm83phEG4lLTaeZ SbP3K2IPU9dqFfN0CsAwUD yZGdc8Dus00sADJhL9t8DA fpYELkZ5Pti72qAVC9etXd ZXZlYWwgdGFuLXJlZCwgZm rrqADej87sDTW3wHWcoOEl VLZlteKgqsPhdIHuATE0ck WpILvcRKTae2ehy91nnLA4 cRXryVAuI8W6JTW2mpHeT8 VzLiBSZXByZXNlbnRhdGl2 KIAtKSF6nO3kcwWgtgHgf0 HhrYi9eYXoWIoxVHXjAIH0 GYPau1zlv1oqoghySEReKY ubcTQsU5E8zL1gNB6nUHIb IHC7SDTaLYMZSK5ONZ1cfI EkBUSlyzGCGSL7hY5dJQXe CHO4OFMlhsJYRI1XQlpzBj gge3MgCSxnfDXip3turjQq emOap44vgWK8nAXstOUaex OtMGA0sV1rTE2csmjwnobi LP23cZVmgHamBYDpYDQmI0 VccGFyIEEzOiBGaXJzdCBk hJqskDHmu61eLNPfl3AcoG qtqeZtKTOdzD9dQUNzqDsa HPr5GUVlieEzOCOwEKKmoz ZUOZ0LMQttQaoxy9JfHKva jFQbN4Fyo6Wri1StzAmxoa gcBpzpHLT2FEUtFPSvRBjp V2s9DITklOogAWNatQ3pXU VaYB0rLO79aN7vUydnRJKu csXaGOrjOSZ2EVOuhdUPWy 8XAsqgE9Bhe37tIUVxH7g9 RJTsgZ9aCU1iTAZsCgKvpK sqh3EaLYSgu7JckZrazxGa LDAdpK2bVZVoqUbvIDy1XO BlbiBmYWNlXHBhciBBODog B3Uph22hBQNzX4t4QCOpls GvghOnJQP3nE0eJL5hmjzb uiefVS63lXAhiTysVEKlSA ZeN8SptJKeTZV6ArPMKOHs ruLfBFszmMSgZ7Med9Rfp9 VjdGlvblxwYXJccGFyXHBh vkVvvHeijT3dAmGjRdZnZD oueBWpymolPIeahkWtES8s xmbcQOEbUJC2e3UgUTFzxP zdPCNJgSEgFL89TGVgiwCH iVwrWIALG5oyiPFuLAxlYS CEXMvLQ3XSRIfmGUMvgFys aRzgcP1nBoArQfUsKKhlcR FpblxmMVxmczIwXHBhclxw YXJ9 Embedded Images (test code = 4417291133) [facility] GLUCOSE (AUTOMATED)2019-12-02 17:08:00 Test Item Value Reference Range Interpretation Comments POCT GLU (test code = 5896629977) 192 mg/dL 70-110 H Lab Interpretation (test code = Abnormal 65983-9) [facility] GLUCOSE (AUTOMATED)2019-12-02 12:59:00 Test Item Value Reference Range Interpretation Comments POCT GLU (test code = 1095273633) 150 mg/dL 70-110 H Lab Interpretation (test code = Abnormal 08878-9) [facility] GLUCOSE (AUTOMATED)2019-12-02 09:52:00 Test Item Value Reference Range Interpretation Comments POCT GLU (test code = 8587519702) 132 mg/dL 70-110 H Lab Interpretation (test code = Abnormal 99375-0) [facility] GLUCOSE (AUTOMATED)2019-12-02 06:13:00 Test Item Value Reference Range Interpretation Comments POCT GLU (test code = 2828066227) 132 mg/dL 70-110 H Lab Interpretation (test code = Abnormal 28156-1) [facility] - Draw immediately prior to the NEXT dose, but, no more than 60 minutes before the NEXT dose. 2019-12-02 05:04:00 Test Item Value Reference Range Interpretation Comments VANCO TROUGH (test code 19.1 ug/mL 10-20 = 0766480894) LUIS (test code = LUIS) Toxic Range: ?>20 ug/mL 15-20 ug/mL is recommended for severe infection or when Vancomycin LISA is greater than or equal to 2. Lab Interpretation (test Normal code = 05586-9) [facility] GLUCOSE (AUTOMATED)2019-12-02 02:23:00 Test Item Value Reference Range Interpretation Comments POCT GLU (test code = 2132284516) 195 mg/dL 70-110 H Lab Interpretation (test code = Abnormal 69436-8) [facility] GLUCOSE (AUTOMATED)2019-12-01 21:48:00 Test Item Value Reference Range Interpretation Comments POCT GLU (test code = 3623678236) 239 mg/dL 70-110 H Lab Interpretation (test code = Abnormal 39865-7) [facility] GLUCOSE (AUTOMATED)2019-12-01 17:29:00 Test Item Value Reference Range Interpretation Comments POCT GLU (test code = 1407718376) 159 mg/dL 70-110 H Lab Interpretation (test code = Abnormal 97170-5) [facility] GLUCOSE (AUTOMATED)2019-12-01 13:28:00 Test Item Value Reference Range Interpretation Comments POCT GLU (test code = 3237540283) 158 mg/dL 70-110 H Lab Interpretation (test code = Abnormal 25213-1) [facility] (NA, K, CL, CO2, GLUCOSE, BUN, CREATININE, CA)2019-12-01 10:24:00 Test Item Value Reference Range Interpretation Comments NA (test code = 138 mmol/L 135-145 5925354455) K (test code = 3.4 mmol/L 3.5-5 L 1825843007) CL (test code = 104 mmol/L 98-108 4519495153) CO2 TOTAL (test code = 26 mmol/L 23-31 9360589562) AGAP (test code = 2-16 5346555594) BUN (test code = 9 mg/dL 7-23 8165745216) GLUCOSE (test code = 170 mg/dL 70-110 H 2028894566) CREATININE (test code = 0.87 mg/dL 0.6-1.25 2345520864) CALCIUM (test code = 8.5 mg/dL 8.6-10.6 L 7108327898) eGFR Calculation mL/min/1.73m2 (Non-) (test code = 1725741171) eGFR Calculation mL/min/1.73m2 () (test code = 4609356724) LUIS (test code = LUIS) Association of [...] tests). Lab Interpretation Abnormal (test code = 88765-3) [facility] WITH [id number] 10:13:00 Test Item Value Reference Range Interpretation [...] (test code = 36.7 fL 38.5-51.6 L 59534-4) RDW-CV (test code = 11.4 % 12.1-15.4 L 788-0) PLT (test code = See_Comment [Automated 777-3) message] The sy stem which generated this result transmitted reference range : 150 - 328 10*3/ ?L. The reference r neno was not used to interpret this result as normal/abnormal . MPV (test code = 8.7 fL 9.8-13 L 14901-3) NRBC/100 WBC (test See_Comment [Automat ed code = 2083606395) message] The system which generated this result transmitted reference range : 0.0 - 10.0 /100 WBCs. The refer ence range was not u sed to interpret th is result as normal/abnormal . NRBC x10^3 (test code <0.01 See_Comment [Auto mated = 2338099492) message] The s ystem which generated this result transmitted reference range : 10*3/?L. The reference range was not used to interpret this result as normal/abnormal . GRAN MAT (NEUT) % 72.7 % (test code = 770-8) IMM GRAN % (test code 0.40 % = 7216836590) LYMPH % (test code = 16.4 % 736-9) MONO % (test code = 8.3 % 5905-5) EOS % (test code = 1.8 % 713-8) BASO % (test code = 0.4 % 706-2) GRAN MAT x10^3(ANC) 5.76 10*3/uL 1.99-6.95 (test code = 1908507380) IMM GRAN x10^3 (test 0.03 10*3/uL 0-0.06 code = 2816575805) LYMPH x10^3 (test code 1.30 10*3/uL 1.09-3.23 = 731-0) MONO x10^3 (test code 0.66 10*3/uL 0.36-1.02 = 742-7) EOS x10^3 (test code = 0.14 10*3/uL 0.06-0.53 711-2) BASO x10^3 (test code 0.03 10*3/uL 0.01-0.09 = 704-7) Lab Interpretation Abnormal (test code = 48095-6) [facility] GLUCOSE (AUTOMATED)2019-12-01 09:40:00 Test Item Value Reference Range Interpretation Comments POCT GLU (test code = 1452931558) 171 mg/dL 70-110 H Lab Interpretation (test code = Abnormal 63396-0) [facility] GLUCOSE (AUTOMATED)2019-12-01 05:50:00 Test Item Value Reference Range Interpretation Comments POCT GLU (test code = 2918337368) 196 mg/dL 70-110 H Lab Interpretation (test code = Abnormal 00945-9) [facility] [id number] 02:45:00 Test Item Value Reference Range Interpretation Comments Blood Culture-Aerobic No organisms No growth Previo us (test code = 46415-4) isolated prelim inary verified result was Culture [...] Culture-Anaerobic isolated preliminar y (test code = 55719-7) verifi ed result was Culture In Progress [...] CDT Lab Interpretation Normal (test code = 11456-1) [facility] CULTURE [id number] 02:44:00 Test Item Value Reference Range Interpretation Comments Blood Culture-Aerobic No organisms No growth Previo us (test code = 64048-5) isolated prelim inary verified result was Culture [...] Culture-Anaerobic isolated preliminar y (test code = 82590-7) verifi ed result was Culture In Progress [...] CDT Lab Interpretation Normal (test code = 36552-5) [facility] GLUCOSE (AUTOMATED)2019-12-01 01:55:00 Test Item Value Reference Range Interpretation Comments POCT GLU (test code = 3239813247) 289 mg/dL 70-110 H Lab Interpretation (test code = Abnormal 40623-1) [facility] and Screen - ONCE [id number] 23:43:27 Test Item Value Reference Range Interpretation Comments ABO & RH (test code O POSITIVE Performe d at [facility] = 20) Laboratory Serv [facility] [address] [facility] [place] [id number] Free: [phone] A No. [id number] IAT (test code = Negative Performed a t [facility] 1185) Laboratory Serv [facility] [address] [facility] [place] [id number] Free: [phone] A No. [id number] [facility] GLUCOSE (AUTOMATED)2019-11-30 22:10:00 Test Item Value Reference Range Interpretation Comments POCT GLU (test code = 6930959743) 147 mg/dL 70-110 H Lab Interpretation (test code = Abnormal 44227-8) [facility] CULTURE(AEROBIC/ANAEROBIC)2019-11-30 18:38:00 Test Item Value Reference Range Interpretation Comments TISSUE CULTURE (test No aerobic/anaerobic code = 19866-5) organisms isolated Gram stain (test code No PMNs or Mononuclear = 664-3) cells observed [facility] CULTURE(AEROBIC/ANAEROBIC)2019-11-30 16:54:00 Test Item Value Reference Range Interpretation Comments TISSUE CULTURE 2+ Streptococcus [place] (test code = [place] [address]-8) consistent with organism above Gram stain No PMNs or (test code = Mononuclear cells 664-3) observed [facility] GLUCOSE (AUTOMATED)2019-11-30 15:56:00 Test Item Value Reference Range Interpretation Comments POCT GLU (test code = 9936810831) 223 mg/dL 70-110 H Lab Interpretation (test code = Abnormal 55321-8) [facility] Level - Draw immediately prior to the 4TH dose, but, no more than 60 minutes before the 4TH dose. 2019-11-30 15:34:00 Test Item Value Reference Range Interpretation Comments VANCO TROUGH (test code 15.4 ug/mL 10-20 = 4472352054) LUIS (test code = LUIS) Toxic Range: ?>20 ug/mL 15-20 ug/mL is recommended for severe infection or when Vancomycin LISA is greater than or equal to 2. Lab Interpretation (test Normal code = 83981-2) [facility]2019-11-30 13:25:00 Test Item Value Reference Range Interpretation Comments POCT GLU (test code = 8520622087) 143 mg/dL 70-110 H Lab Interpretation (test code = Abnormal 09824-7) [facility] METABOLIC PANEL (NA, K, CL, CO2, GLUCOSE, BUN, CREATININE, CA)2019-11-30 10:57:00 Test Item Value Reference Range Interpretation Comments NA (test code = 139 mmol/L 135-145 6638075847) K (test code = 3.4 mmol/L 3.5-5 L 1651727628) CL (test code = 103 mmol/L 98-108 2173207153) CO2 TOTAL (test code = 28 mmol/L 23-31 3532411703) AGAP (test code = 2-16 8501944019) BUN (test code = 7 mg/dL 7-23 1452618604) GLUCOSE (test code = 131 mg/dL 70-110 H 3461629400) CREATININE (test code = 0.76 mg/dL 0.6-1.25 0387613370) CALCIUM (test code = 8.3 mg/dL 8.6-10.6 L 1477855384) eGFR Calculation mL/min/1.73m2 (Non-) (test code = 3809319895) eGFR Calculation mL/min/1.73m2 () (test code = 4234628731) LUIS (test code = LUIS) Association of [...] tests). Lab Interpretation Abnormal (test code = 51663-1) [facility] WITH [id number] 10:26:00 Test Item Value Reference Range Interpretation [...] (test code = 35.8 fL 38.5-51.6 L 47938-3) RDW-CV (test code = 11.3 % 12.1-15.4 L 788-0) PLT (test code = See_Comment H [Automated 777-3) message] The sy stem which generated this result transmitted reference range : 150 - 328 10*3/ ?L. The reference r neno was not used to interpret this result as normal/abnormal . MPV (test code = 9.0 fL 9.8-13 L 52440-2) NRBC/100 WBC (test See_Comment [Automat ed code = 6293086986) message] The system which generated this result transmitted reference range : 0.0 - 10.0 /100 WBCs. The refer ence range was not u sed to interpret th is result as normal/abnormal . NRBC x10^3 (test code <0.01 See_Comment [Auto mated = 1848916663) message] The s ystem which generated this result transmitted reference range : 10*3/?L. The reference range was not used to interpret this result as normal/abnormal . GRAN MAT (NEUT) % 74.5 % (test code = 770-8) IMM GRAN % (test code 0.50 % = 1510924687) LYMPH % (test code = 14.7 % 736-9) MONO % (test code = 8.5 % 5905-5) EOS % (test code = 1.5 % 713-8) BASO % (test code = 0.3 % 706-2) GRAN MAT x10^3(ANC) 6.57 10*3/uL 1.99-6.95 (test code = 9891641171) IMM GRAN x10^3 (test 0.04 10*3/uL 0-0.06 code = 3461610832) LYMPH x10^3 (test code 1.30 10*3/uL 1.09-3.23 = 731-0) MONO x10^3 (test code 0.75 10*3/uL 0.36-1.02 = 742-7) EOS x10^3 (test code = 0.13 10*3/uL 0.06-0.53 711-2) BASO x10^3 (test code 0.03 10*3/uL 0.01-0.09 = 704-7) Lab Interpretation Abnormal (test code = 05277-1) [facility] GLUCOSE (AUTOMATED)2019-11-30 09:23:00 Test Item Value Reference Range Interpretation Comments POCT GLU (test code = 7594454045) 140 mg/dL 70-110 H Lab Interpretation (test code = Abnormal 69310-8) [facility] GLUCOSE (AUTOMATED)2019-11-30 04:51:00 Test Item Value Reference Range Interpretation Comments POCT GLU (test code = 1618866737) 206 mg/dL 70-110 H Lab Interpretation (test code = Abnormal 07270-2) [facility] GLUCOSE (AUTOMATED)2019-11-30 01:36:00 Test Item Value Reference Range Interpretation Comments POCT GLU (test code = 9093801419) 201 mg/dL 70-110 H Lab Interpretation (test code = Abnormal 61871-9) [facility] GLUCOSE (AUTOMATED)2019-11-30 01:32:00 Test Item Value Reference Range Interpretation Comments POCT GLU (test code = 8036052373) 232 mg/dL 70-110 H Lab Interpretation (test code = Abnormal 89620-8) [facility] GLUCOSE (AUTOMATED)2019-11-29 23:17:00 Test Item Value Reference Range Interpretation Comments POCT GLU (test code = 2234358273) 202 mg/dL 70-110 H Lab Interpretation (test code = Abnormal 67357-1) [facility] GLUCOSE (AUTOMATED)2019-11-29 17:01:00 Test Item Value Reference Range Interpretation Comments POCT GLU (test code = 8318366430) 283 mg/dL 70-110 H Lab Interpretation (test code = Abnormal 11018-3) [facility] GLUCOSE (AUTOMATED)2019-11-29 12:40:00 Test Item Value Reference Range Interpretation Comments POCT GLU (test code = 6810312822) 207 mg/dL 70-110 H Lab Interpretation (test code = Abnormal 19050-6) [facility] (NA, K, CL, CO2, GLUCOSE, BUN, CREATININE, CA)2019-11-29 10:27:00 Test Item Value Reference Range Interpretation Comments NA (test code = 134 mmol/L 135-145 L 4416493643) K (test code = 3.0 mmol/L 3.5-5 L 7429572524) CL (test code = 98 mmol/L 98-108 8177572925) CO2 TOTAL (test code = 31 mmol/L 23-31 4677655051) AGAP (test code = 2-16 1660304766) BUN (test code = 4 mg/dL 7-23 L 8439019896) GLUCOSE (test code = 180 mg/dL 70-110 H 9258682963) CREATININE (test code = 0.39 mg/dL 0.6-1.25 L 1297254350) CALCIUM (test code = 7.8 mg/dL 8.6-10.6 L 4613349812) eGFR Calculation mL/min/1.73m2 (Non-) (test code = 7328199127) eGFR Calculation mL/min/1.73m2 () (test code = 0510180565) LUIS (test code = LUIS) Association of [...] tests). Lab Interpretation Abnormal (test code = 50451-1) [facility] WITH [id number] 09:54:00 Test Item Value Reference Range Interpretation [...] (test code = 35.2 fL 38.5-51.6 L 80323-6) RDW-CV (test code = 11.2 % 12.1-15.4 L 788-0) PLT (test code = See_Comment [Automated 777-3) message] The sy stem which generated this result transmitted reference range : 150 - 328 10*3/ ?L. The reference r neno was not used to interpret this result as normal/abnormal . MPV (test code = 8.9 fL 9.8-13 L 83782-1) NRBC/100 WBC (test See_Comment [Automat ed code = 9202736796) message] The system which generated this result transmitted reference range : 0.0 - 10.0 /100 WBCs. The refer ence range was not u sed to interpret th is result as normal/abnormal . NRBC x10^3 (test code <0.01 See_Comment [Auto mated = 8721336714) message] The s ystem which generated this result transmitted reference range : 10*3/?L. The reference range was not used to interpret this result as normal/abnormal . GRAN MAT (NEUT) % 77.2 % (test code = 770-8) IMM GRAN % (test code 0.50 % = 0385885764) LYMPH % (test code = 13.2 % 736-9) MONO % (test code = 8.1 % 5905-5) EOS % (test code = 0.8 % 713-8) BASO % (test code = 0.2 % 706-2) GRAN MAT x10^3(ANC) 6.62 10*3/uL 1.99-6.95 (test code = 6087891108) IMM GRAN x10^3 (test 0.04 10*3/uL 0-0.06 code = 9238706451) LYMPH x10^3 (test code 1.13 10*3/uL 1.09-3.23 = 731-0) MONO x10^3 (test code 0.69 10*3/uL 0.36-1.02 = 742-7) EOS x10^3 (test code = 0.07 10*3/uL 0.06-0.53 711-2) BASO x10^3 (test code <0.03 0.01-0.09 = 704-7) Lab Interpretation Abnormal (test code = 74177-9) [facility] GLUCOSE (AUTOMATED)2019-11-29 09:37:00 Test Item Value Reference Range Interpretation Comments POCT GLU (test code = 6038128585) 184 mg/dL 70-110 H Lab Interpretation (test code = Abnormal 47305-2) [facility] GLUCOSE (AUTOMATED)2019-11-29 04:45:00 Test Item Value Reference Range Interpretation Comments POCT GLU (test code = 2341204711) 237 mg/dL 70-110 H Lab Interpretation (test code = Abnormal 77949-1) [facility] (NA, K, CL, CO2, GLUCOSE, BUN, CREATININE, CA)2019-11-29 04:24:00 Test Item Value Reference Range Interpretation Comments NA (test code = 132 mmol/L 135-145 L 2089682600) K (test code = 3.1 mmol/L 3.5-5 L 8178102962) CL (test code = 98 mmol/L 98-108 6379071424) CO2 TOTAL (test code = 31 mmol/L 23-31 3275101520) AGAP (test code = 2-16 0639907078) BUN (test code = 4 mg/dL 7-23 L 4693094848) GLUCOSE (test code = 229 mg/dL 70-110 H 8066184230) CREATININE (test code = 0.42 mg/dL 0.6-1.25 L 5532279852) CALCIUM (test code = 8.0 mg/dL 8.6-10.6 L 3071993230) eGFR Calculation mL/min/1.73m2 (Non-) (test code = 4521093825) eGFR Calculation mL/min/1.73m2 () (test code = 2477863005) LUIS (test code = LUIS) Association of [...] tests). Lab Interpretation Abnormal (test code = 93366-1) [facility] GLUCOSE (AUTOMATED)2019-11-29 01:48:00 Test Item Value Reference Range Interpretation Comments POCT GLU (test code = 8397650779) 227 mg/dL 70-110 H Lab Interpretation (test code = Abnormal 40077-4) [facility] GLUCOSE (AUTOMATED)2019-11-28 22:28:00 Test Item Value Reference Range Interpretation Comments POCT GLU (test code = 3273400716) 208 mg/dL 70-110 H Lab Interpretation (test code = Abnormal 95983-6) [facility] GLUCOSE (AUTOMATED)2019-11-28 19:56:00 Test Item Value Reference Range Interpretation Comments POCT GLU (test code = 9644107626) 198 mg/dL 70-110 H Lab Interpretation (test code = Abnormal 50381-4) [facility] GLUCOSE (AUTOMATED)2019-11-28 16:56:00 Test Item Value Reference Range Interpretation Comments POCT GLU (test code = 0797217314) 127 mg/dL 70-110 H Lab Interpretation (test code = Abnormal 21152-9) [facility] GLUCOSE (AUTOMATED)2019-11-28 13:43:00 Test Item Value Reference Range Interpretation Comments POCT GLU (test code = 8060525195) 163 mg/dL 70-110 H Lab Interpretation (test code = Abnormal 79819-0) [facility] WITH [id number] 11:40:00 Test Item Value Reference Range Interpretation [...] (test code = 33.8 fL 38.5-51.6 L 03829-0) RDW-CV (test code = 10.8 % 12.1-15.4 L 788-0) PLT (test code = See_Comment H [Automated 777-3) message] The sy stem which generated this result transmitted reference range : 150 - 328 10*3/ ?L. The reference r neno was not used to interpret this result as normal/abnormal . MPV (test code = 9.0 fL 9.8-13 L 54969-4) NRBC/100 WBC (test See_Comment [Automat ed code = 6221377146) message] The system which generated this result transmitted reference range : 0.0 - 10.0 /100 WBCs. The refer ence range was not u sed to interpret th is result as normal/abnormal . NRBC x10^3 (test code <0.01 See_Comment [Auto mated = 6469687627) message] The s ystem which generated this result transmitted reference range : 10*3/?L. The reference range was not used to interpret this result as normal/abnormal . GRAN MAT (NEUT) % 82.9 % (test code = 770-8) IMM GRAN % (test code 0.60 % = 8587239834) LYMPH % (test code = 8.2 % 736-9) MONO % (test code = 7.4 % 5905-5) EOS % (test code = 0.7 % 713-8) BASO % (test code = 0.2 % 706-2) GRAN MAT x10^3(ANC) 8.89 10*3/uL 1.99-6.95 H (test code = 3756025293) IMM GRAN x10^3 (test 0.06 10*3/uL 0-0.06 code = 7168023481) LYMPH x10^3 (test code 0.88 10*3/uL 1.09-3.23 L = 731-0) MONO x10^3 (test code 0.79 10*3/uL 0.36-1.02 = 742-7) EOS x10^3 (test code = 0.07 10*3/uL 0.06-0.53 711-2) BASO x10^3 (test code <0.03 0.01-0.09 = 704-7) Lab Interpretation Abnormal (test code = 23427-3) [facility] METABOLIC PANEL (NA, K, CL, CO2, GLUCOSE, BUN, CREATININE, CA)2019-11-28 11:17:00 Test Item Value Reference Range Interpretation Comments NA (test code = 133 mmol/L 135-145 L 0382923670) K (test code = 2.6 mmol/L 3.5-5 LL 4243421532) CL (test code = 94 mmol/L 98-108 L 7431822325) CO2 TOTAL (test code = 30 mmol/L 23-31 3821048176) AGAP (test code = 2-16 6283268549) BUN (test code = 3 mg/dL 7-23 L 3941033038) GLUCOSE (test code = 152 mg/dL 70-110 H 8932888954) CREATININE (test code = 0.36 mg/dL 0.6-1.25 L 1197210163) CALCIUM (test code = 7.8 mg/dL 8.6-10.6 L 5595562628) eGFR Calculation mL/min/1.73m2 (Non-) (test code = 6651412448) eGFR Calculation mL/min/1.73m2 () (test code = 1229334884) LUIS (test code = LUIS) Association of [...] tests). Lab Interpretation Abnormal (test code = 98504-9) [facility] GLUCOSE (AUTOMATED)2019-11-28 09:02:00 Test Item Value Reference Range Interpretation Comments POCT GLU (test code = 1850670489) 151 mg/dL 70-110 H Lab Interpretation (test code = Abnormal 76290-6) [facility] T[facility] Level - Draw within 30 minutes prior to 4TH dose.2019-11-28 06:09:00 Test Item Value Reference Range Interpretation Comments VANCO TROUGH (test code 5.5 ug/mL 10-20 L = 2282046535) LUIS (test code = LUIS) Toxic Range: ?>20 ug/mL 15-20 ug/mL is recommended for severe infection or when Vancomycin LISA is greater than or equal to 2. Lab Interpretation (test Abnormal code = 05320-1) [facility] GLUCOSE (AUTOMATED)2019-11-28 05:10:00 Test Item Value Reference Range Interpretation Comments POCT GLU (test code = 9916277186) 213 mg/dL 70-110 H Lab Interpretation (test code = Abnormal 80907-7) [facility] GLUCOSE (AUTOMATED)2019-11-28 01:10:00 Test Item Value Reference Range Interpretation Comments POCT GLU (test code = 0720227692) 204 mg/dL 70-110 H Lab Interpretation (test code = Abnormal 91447-4) [facility] GLUCOSE (AUTOMATED)2019-11-27 22:11:00 Test Item Value Reference Range Interpretation Comments POCT GLU (test code = 8684313897) 159 mg/dL 70-110 H Lab Interpretation (test code = Abnormal 07165-9) [facility]lakeFL TIME OR (NON-REPORTABLE)2019-11-27 21:39:17 These images do not require a Radiology diagnostic report.[facility]lakeMR FOOT LEFT W WO [id number] 14:58:43Soft tissue gas surrounding the first and [...] arim-enhancingplantar medial first digit ulceration. ?Enhancement with S2mboonm increase and mild T1 signal decreas e [...] plantar medial first digit ulceration. Enhancement with R4ntvjaa increase and mild T1 signal decrease involve [...] fourth digit distal phalanxgiven ulceration at this site.[facility]2019-11-27 14:04:00 Test Item Value Reference Range Interpretation Comments POCT GLU (test code = 6889297471) 182 mg/dL 70-110 H Lab Interpretation (test code = Abnormal 76442-9) [facility]lakeMAGNESIUM2020-08-30 12:36:00 Test Item Value Reference Range Interpretation Comments MAGNESIUM (test code = 8324233822) 2.0 mg/dL 1.7-2.4 Lab Interpretation (test code = Normal 43995-3) [facility]lakeABORH [id number] 12:03:33 Test Item Value Reference Range Interpretation Comments ABO & RH (test code O Positive Performe d at [facility] = 20) Laboratory Serv [facility] [place] [id number] Free: [phone] A No. [id number] [facility] METABOLIC PANEL (NA, K, CL, CO2, GLUCOSE, BUN, CREATININE, CA)2019-11-27 11:21:00 Test Item Value Reference Range Interpretation Comments NA (test code = 133 mmol/L 135-145 L 5926266635) K (test code = 2.6 mmol/L 3.5-5 LL 1299962422) CL (test code = 95 mmol/L 98-108 L 4453888340) CO2 TOTAL (test code = 29 mmol/L 23-31 6943572536) AGAP (test code = 2-16 7241042311) BUN (test code = 5 mg/dL 7-23 L 5245919283) GLUCOSE (test code = 187 mg/dL 70-110 H 9696075081) CREATININE (test code = 0.44 mg/dL 0.6-1.25 L 8491211630) CALCIUM (test code = 8.0 mg/dL 8.6-10.6 L 2484906471) eGFR Calculation mL/min/1.73m2 (Non-) (test code = 5496416862) eGFR Calculation mL/min/1.73m2 () (test code = 3256885795) LUIS (test code = LUIS) Association of [...] tests). Lab Interpretation Abnormal (test code = 58070-4) [facility] WITH [id number] 10:21:00 Test Item Value Reference Range Interpretation [...] (test code = 33.7 fL 38.5-51.6 L 25435-3) RDW-CV (test code = 10.9 % 12.1-15.4 L 788-0) PLT (test code = See_Comment H [Automated 777-3) message] The sy stem which generated this result transmitted reference range : 150 - 328 10*3/ ?L. The reference r neno was not used to interpret this result as normal/abnormal . MPV (test code = 9.0 fL 9.8-13 L 79834-6) NRBC/100 WBC (test See_Comment [Automat ed code = 8781361363) message] The system which generated this result transmitted reference range : 0.0 - 10.0 /100 WBCs. The refer ence range was not u sed to interpret th is result as normal/abnormal . NRBC x10^3 (test code <0.01 See_Comment [Auto mated = 5822319695) message] The s ystem which generated this result transmitted reference range : 10*3/?L. The reference range was not used to interpret this result as normal/abnormal . GRAN MAT (NEUT) % 78.2 % (test code = 770-8) IMM GRAN % (test code 0.60 % = 8404044738) LYMPH % (test code = 12.4 % 736-9) MONO % (test code = 7.7 % 5905-5) EOS % (test code = 0.8 % 713-8) BASO % (test code = 0.3 % 706-2) GRAN MAT x10^3(ANC) 8.47 10*3/uL 1.99-6.95 H (test code = 1494201739) IMM GRAN x10^3 (test 0.07 10*3/uL 0-0.06 H code = 0291373491) LYMPH x10^3 (test code 1.34 10*3/uL 1.09-3.23 = 731-0) MONO x10^3 (test code 0.84 10*3/uL 0.36-1.02 = 742-7) EOS x10^3 (test code = 0.09 10*3/uL 0.06-0.53 711-2) BASO x10^3 (test code 0.03 10*3/uL 0.01-0.09 = 704-7) Lab Interpretation Abnormal (test code = 74685-7) [facility]2019-11-27 10:14:00 Test Item Value Reference Range Interpretation Comments POCT GLU (test code = 1175317364) 172 mg/dL 70-110 H Lab Interpretation (test code = Abnormal 22219-1) [facility] SouthlakeType and Screen - ONCE [id number] 09:41:31 Test Item Value Reference Range Interpretation Comments ABO & RH (test code O POSITIVE Performe d at [facility] = 20) Laboratory Serv [facility] [address] [facility] [place] [address]Wszw Free: [phone] A No. [id number] IAT (test code = Negative Performed a t [facility] 1185) Laboratory Serv [facility] [address] [facility] [place] [address]Mtjk Free: [phone] A No. [id number] [facility] GLUCOSE (AUTOMATED)2019-11-27 04:28:00 Test Item Value Reference Range Interpretation Comments POCT GLU (test code = 5023748707) 189 mg/dL 70-110 H Lab Interpretation (test code = Abnormal 53695-2) [facility]lakeLipid Panel (Total Cholesterol, Triglycerides, HDL) - [id number] 01:28:00 Test Item Value Reference Range Interpretation Comments CHOL (test code = 117 mg/dL 120-200 L 2024765531) HDL (test code = 19 mg/dL >40 L 5609429709) HDLC RATIO (test code = See_Comment H [Au tomated message] 9794758308) The system [employer] generated this result transmit alex reference range : <=5.0. The refe rence range was not u sed to interpret th is result as normal/abnormal . TRIG (test code = 122 mg/dL 30-170 3927499861) LDL CHOL (test code = 74 mg/dL See_Comment [Auto mated message] 90641-0) The system [employer] generated this result transmit alex reference range : <=160. The refe rence range was not u sed to interpret th is result as normal/abnormal . VLDL (test code = 24 mg/dL 5-60 1883365189) Lab Interpretation (test Abnormal code = 40430-2) [facility] GLUCOSE (AUTOMATED)2019-11-27 01:27:00 Test Item Value Reference Range Interpretation Comments POCT GLU (test code = 0862837010) 252 mg/dL 70-110 H Lab Interpretation (test code = Abnormal 56331-4) [facility] GLUCOSE (AUTOMATED)2019-11-26 19:07:00 Test Item Value Reference Range Interpretation Comments POCT GLU (test code = 8143009848) 192 mg/dL 70-110 H Lab Interpretation (test code = Abnormal 78435-2) [facility]2019-11-26 14:12:00 Test Item Value Reference Range Interpretation Comments POCT GLU (test code = 4800567407) 181 mg/dL 70-110 H Lab Interpretation (test code = Abnormal 22798-0) [facility]lakeXR FOOT <3 VW [id number] 11:24:50 Soft tissue defect and extensive soft [...] calcifications are noted. [facility], Radiant Results Inft 11/26/2019 6:25 AM CDTEXAM: XR FOOT <3 [...] reviewed this study and agree with the abovereport.[facility] SouthlakeLactic Acid Whole [id number] 09:42:00 Test Item Value Reference Range Interpretation Comments LACTIC ACID (test code = 1.12 mmol/L QUE S 3105291140) [facility]lake[facility] GLU[facility]SE (AUTOMATED)2019-11-26 09:38:00 Test Item Value Reference Range Interpretation Comments POCT GLU (test code = 9708648057) 211 mg/dL 70-110 H Lab Interpretation (test code = Abnormal 03705-0) [facility] SouthlakeGlycosylated Hemoglobin (A1C)2019-11-26 07:30:00 Test Item Value Reference Range Interpretation Comments HGB A1C (test code = 10.8 % 4-6 H 4548-4) LUIS (test code = LUIS) %A1C (NGSP) Interpretation (ADA)4.8-5.6 ? ? Normal or (Non-Diabetic Range)5.7-6.4 ? ? Increased Risk (Pre-Diabetic)>6.5 ?Diabetes Indicated Lab Interpretation Abnormal (test code = 64593-6) [facility] WITH [id number] 03:47:00 Test Item Value Reference Range Interpretation [...] (test code = 33.4 fL 38.5-51.6 L 54591-1) RDW-CV (test code = 10.8 % 12.1-15.4 L 788-0) PLT (test code = See_Comment H [Automated 777-3) message] The system which generated this result transmit alex reference range : 150 - 328 10*3/ ?L. The reference range was not u sed to interpret th is result as normal/abnormal . MPV (test code = 9.5 fL 9.8-13 L 72849-6) NRBC/100 WBC (test See_Comment [Automat ed code = 9466380228) message] The system which generated this result transmit alex reference range : 0.0 - 10.0 /100 WBCs. The reference range was not used to interpret this result as normal/abnormal . NRBC x10^3 (test code <0.01 See_Comment [Auto mated = 5295546895) message] The system which generated this result transmit alex reference range : 10*3/?L. The reference range was not used to interpret this result as normal/abnormal . GRAN MAT (NEUT) % 84.3 % (test code = 770-8) IMM GRAN % (test code 0.90 % = 0986158557) LYMPH % (test code = 7.5 % 736-9) MONO % (test code = 6.8 % 5905-5) EOS % (test code = 0.2 % 713-8) BASO % (test code = 0.3 % 706-2) GRAN MAT x10^3(ANC) 15.55 10*3/uL 1.99-6.95 H (test code = 7879563073) IMM GRAN x10^3 (test 0.16 10*3/uL 0-0.06 H code = 3905626761) LYMPH x10^3 (test code 1.39 10*3/uL 1.09-3.23 = 731-0) MONO x10^3 (test code 1.25 10*3/uL 0.36-1.02 H = 742-7) EOS x10^3 (test code = 0.03 10*3/uL 0.06-0.53 L 711-2) BASO x10^3 (test code 0.05 10*3/uL 0.01-0.09 = 704-7) Lab Interpretation Abnormal (test code = 65645-2) [facility]lakeCOVID-19 (ID NOW RAPID TESTING)2019-11-26 03:22:00 Test Item Value Reference Range Interpretation Comments SARS-CoV-2 Rapid ID NOW Not Detected Not Detected (test code = 95869-9) LUIS (test code = LUIS) ID NOW COVID-19 Assay is an isothermal nucleic acid amplification test intended for the qualitative detection of nucleic acid from SARS-CoV-2 viral RNA in nasopharyngeal (LIVING MANAGER) specimens. It is used under Emergency Use [...] indicated. Lab Interpretation Normal (test code = 81411-1) [facility]lakeCOM. METABOLIC PANEL (32075)2019-11-26 02:58:00 Test Item Value Reference Range Interpretation Comments NA (test code = 128 mmol/L 135-145 L 6555898473) K (test code = 3.9 mmol/L 3.5-5 2814971537) CL (test code = 89 mmol/L 98-108 L 9130833724) CO2 TOTAL (test code = 28 mmol/L 23-31 3662484453) AGAP (test code = 2-16 5270368234) BUN (test code = 11 mg/dL 7-23 9727717588) GLUCOSE (test code = 300 mg/dL 70-110 H 6154569572) CREATININE (test code = 0.51 mg/dL 0.6-1.25 L [id number]) TOTAL BILI (test code = 1.4 mg/dL 0.1-1.1 H [id number]) CALCIUM (test code = 8.4 mg/dL 8.6-10.6 L [id number]) T PROTEIN (test code = 7.0 g/dL 6.3-8.2 6720750603) ALBUMIN (test code = 3.5 g/dL 3.5-5 0775350567) ALK PHOS (test code = 119 U/L 34-122 9486216981) ALTv (test code = 40 U/L 5-50 1742-6) AST(SGOT) (test code = 56 U/L 13-40 H 5390714405) eGFR Calculation mL/min/1.73m2 (Non-) (test code = 6966539025) eGFR Calculation mL/min/1.73m2 () (test code = 5256989046) LUIS (test code = LUIS) Association of [...] tests). Lab Interpretation Abnormal (test code = 30708-3) [facility] [id number] 02:20:00 Test Item Value Reference Range Interpretation Comments LACTIC ACID (test code = 2.59 mmol/L [id number]) [facility]"
[2022-03-20] MEDS ORDERED: HYDROCODONE/APAP 5/325 MG TAB ONE (23:02)
--- NOTE | 2022-03-20 23:07 | ER ---
Nurse's Notes [facility] Name: Jerson Lopes Age: 56 yrs Sex: Male : 1965 Arrival Date: 03/20/2022 Time: 22:13 Bed 16 Private MD: Diagnosis: Postoperative left hand pain Presentation: 03/20 22:20 Chief complaint: Left middle finger amputation 03/13 at [facility], c/o worsening hb pain in left hand over the last 2 days. Denies new injury. 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 Coronavirus screen: At this time, the client does not indicate any symptoms associated with coronavirus-19. Ebola Screen: No symptoms or risks identified at this time. Initial Sepsis Screen: Does the patient meet any 2 criteria? No. Patient's initial sepsis screen is negative. Does the patient have a suspected source of infection? No. Patient's initial sepsis screen is negative. Risk Assessment: Do you want to hurt yourself or someone else? Patient reports no desire to harm self or others. Onset of symptoms was March 18, 2022. 22:20 Method Of Arrival: Ambulatory hb 22:20 Acuity: DALILA 3 hb Historical: - Allergies: 22:22 No Known Allergies; hb - PMHx: 22:22 diabetes mellitus; hb - Immunization history:: Adult Immunizations up to date. - Social history:: Smoking status: Patient denies any tobacco usage or history of. Screenin:09 [facility] ED Fall Risk Assessment (Adult) Score/Fall Risk Level 0 - 2 = Low Risk. Abuse as6 screen: Denies threats or abuse. Denies injuries from another. Nutritional screening: No deficits noted. Tuberculosis screening: No symptoms or risk factors identified. Assessment: 23:16 General: Appears in no apparent distress. Behavior is calm, cooperative. Pain: as6 Complains of pain in left hand. Neuro: Level of Consciousness is awake, alert, obeys commands, Oriented to person, place, time, situation. Respiratory: Respiratory effort is even, unlabored. Musculoskeletal: Amputation of left middle finger, dorsal aspect of distal phalanx of left middle finger, dorsal aspect of middle phalanx of left middle finger and dorsal aspect of proximal phalanx of left middle finger. Vital Signs: 22:20 BP 114 / 65; Pulse 81; Resp 16; Temp 98.1; Pulse Ox 100% on R/A; Weight 68.95 kg; hb Height 5 ft. 4 in. (162.56 cm); Pain 10/10; 22:20 Body Mass Index 26.09 (68.95 kg, 162.56 cm) hb ED Course: 22:13 Patient arrived in ED. [id number] 22:22 Triage completed. hb 22:22 Brittany Mills MD is Attending Physician. sd2 22:22 Arm band placed on. hb 22:50 Jose Sprague, RN is Primary Nurse. as6 23:09 Bed in low position. Call light in reach. Side rails up X 1. as6 23:10 No provider procedures requiring assistance completed. Patient did not have IV access as6 during this emergency room visit. 23:15 Dressings: Kerlix X 1; left hand Vaseline gauze X 1; left hand 4X4s X 1; left hand. as6 Administered Medications: 23:09 Drug: HYDROcodone-acetaminophen 5 mg-325 mg 1 tabs Route: PO; as6 23:09 Follow up: Response: No adverse reaction as6 Medication: 23:10 VIS not applicable for this client. as6 Outcome: 23:06 Discharge ordered by . sd2 23:17 Discharged to home ambulatory, with family. as6 23:17 Condition: stable 23:17 Discharge instructions given to patient, family, Instructed on discharge instructions, follow up and referral plans. medication usage, wound care, Demonstrated understanding of instructions, follow-up care, medications, wound care, Prescriptions given X 2. 23:17 Patient left the ED. as6 Signatures: Kate Davila, [place] Yadira Gomez jj6 Jose Sprague, [place] RN as6 Brittany Mills MD MD sd2
--- NOTE | 2022-03-20 23:07 | EDPHYS ---
Physician Documentation [facility] Name: Jerson Lopes Age: 56 yrs Sex: Male : 1965 Arrival Date: 03/20/2022 Time: 22:13 Bed 16 Private MD: ED Physician Brittany Mills HPI: 03/20 22:32 This 56 yrs old Male presents to ER via Ambulatory with complaints of Post sd2 Surgical Pain. 22:32 56 yo M presents with CC of postoperative pain. Pt had his L 3rd digit amputated at [address] last week due to tenosynovitis and reports he was only told to take Tylenol at home for the pain. 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 His dressings have not been changed since surgery, and he reports he was told they would change his dressings and follow up with him in clinic in 15 days. No fevers, vomiting or discharge from the area. . Historical: - Allergies: 22:22 No Known Allergies; hb - PMHx: 22:22 diabetes mellitus; hb - Immunization history:: Adult Immunizations up to date. - Social history:: Smoking status: Patient denies any tobacco usage or history of. ROS: 22:32 Constitutional: Negative for fever, chills, and weight loss, MS/Extremity: Negative for sd2 injury and deformity, Positive for pain Skin: Negative for injury, rash, and discoloration. Exam: 22:32 Constitutional: This is a well developed, well nourished patient who is awake, alert, sd2 and in no acute distress. Head/Face: Normocephalic, atraumatic. Eyes: EOMI, normal conjunctiva bilaterally Skin: Warm, dry with normal turgor. Normal color with no rashes, no lesions, and no evidence of cellulitis. Incision c/d/i to L 3rd digit with no surrounding erythema, induration, fluctuance or drainage. Swelling noted to surrounding fingers and Rui wrap and kerlix was removed which appeared to be fairly tight on the hand. MS/ Extremity: Pulses equal, no cyanosis. Neurovascular intact. Full, normal range of motion. Ambulatory without difficulty. Psych: Awake, alert, with orientation to person, place and time. Behavior, mood, and affect are within normal limits. Vital Signs: 22:20 BP 114 / 65; Pulse 81; Resp 16; Temp 98.1; Pulse Ox 100% on R/A; Weight 68.95 kg; hb Height 5 ft. 4 in. (162.56 cm); Pain 10/10; 22:20 Body Mass Index 26.09 (68.95 kg, 162.56 cm) hb MDM: 22:22 Patient medically screened. sd2 22:32 Differential diagnosis: postoperative pain, wound infection, wound dehiscence among sd2 others. Data reviewed: vital signs, nurses notes, old medical records. Counseling: I had a detailed discussion with the patient and/or guardian regarding: the historical points, exam findings, and any diagnostic results supporting the discharge/admit diagnosis, the need for outpatient follow up, to return to the emergency department if symptoms worsen or persist or if there are any questions or concerns that arise at home. ED course: . 23:06 ED course: Pain improved and treated. Wound redressed appropriately and patient advised sd2 of continued wound and supportive care for symptoms. Will give small amount of Tylenol #3 to help with patient's postoperative pain and he is to call his surgeon's clinic to confirm a scheduled follow up date and time for next week. Verbalizes understanding of discharge plan and strict return precautions. . Administered Medications: 23:09 Drug: HYDROcodone-acetaminophen 5 mg-325 mg 1 tabs Route: PO; as6 23:09 Follow up: Response: No adverse reaction as6 Disposition Summary: 03/20/22 23:06 Discharge Ordered Location: Home sd2 Problem: an acute exacerbation sd2 Symptoms: have improved sd2 Condition: Stable sd2 Diagnosis - Postoperative left hand pain sd2 Followup: sd2 - With: Private Physician - When: 2 - 3 days - Reason: Wound Recheck Discharge Instructions: - Discharge Summary Sheet sd2 - Pain Relief Before and After Surgery sd2 Forms: - Medication Reconciliation Form sd2 - Thank You Letter sd2 - Antibiotic Education sd2 - Prescription Opioid Use sd2 Prescriptions: - Ibuprofen 800 mg Oral Tablet - take 1 tablet by ORAL route every 8 hours As needed take with food; 20 tablet; sd2 Refills: 0, Product Selection Permitted - Tylenol-Codeine #3 300 mg-30 mg Oral - take 1 tablet by ORAL route every 6 hours As needed; 12 tablet; Refills: 0, sd2 Product Selection Permitted Signatures: Kate Davila, RN RN hb Jose Sprague RN RN as6 Brittany Mills MD MD sd2
[2022-03-20 23:22] VITALS: BP 114/65; TEMP 98.1; O2SAT 100
== END 2022-03-20 23:17 | disposition home or self-care (01) ==
LOC: ER 22:09
DX: G89.18 Other acute postprocedural pain (principal); Z89.022 Acquired absence of left finger(s)
CPT/HCPCS: 99283

== ENCOUNTER 2022-06-06 19:33 | Emergency (ER) | payer SELFPAY ==
--- OUTSIDE RECORDS SUMMARY | 2022-06-06 20:07 | XMS REPORT | Continuity of Care Document ---
:1965 Author Organization [facility] t Address [address] [facility]. [address] [place] [address] Care Team Providers Name Role Phone Lida Suarez Primary Care Physician [phone] MEREDITH ADHIKARI Attending Clinician Unavailable RASHID BRAUN Attending Clinician Unavailable MAGALY FOOTE Attending Clinician Unavailable Alexandra Burroughs Attending Clinician BOB [facility] Attending Clinician Unavailable Magaly Foote MD Attending Clinician Robyn Canas RN Attending Clinician Rashid Braun MD Attending Clinician Doctor Unassigned, Lolita Attending Clinician Unavailable Tatiana Rincon LVN Attending Clinician BUNNY DE PAZ Attending Clinician Unavailable Jeromy Daigle MD Attending Clinician Parish Grimes DO Attending Clinician Azucena Lawrence MD Attending Clinician Bunny De Paz MD Attending Clinician Polo Mulligan MD Attending Clinician Neel DEWITT, Js Attending Clinician [phone] DHEERAJ BARRIOS Attending Clinician Unavailable Dheeraj Barrios MD Attending Clinician Franklyn Sesay MD Attending Clinician Fede Gordon MD Attending Clinician Behzad Williamson MD Attending Clinician Aranza DEWITT, Sriram Attending Clinician Nereida DEWITT, Bryan Attending Clinician [facility] Transition Attending Clinician Unavailable Bob DEWITT, [facility] Aren Attending Clinician ELVIA ESTRADA Attending Clinician Unavailable Elvia Estrada MD Attending Clinician MIKY FAJARDO Attending Clinician Unavailable Miky Fajardo MD Attending Clinician LOUIE WARREN Attending Clinician Unavailable Louie Curiel Attending Clinician Yadira Nick MD Attending Clinician YADIRA NICK Attending Clinician Unavailable EDA AUGUSTINE Attending Clinician Unavailable Francisco Johansen MD Attending Clinician Paula Humphrey LMSW Attending Clinician Sai Lomas MD Attending Clinician PARISH GRIMES Admitting Clinician Unavailable Parish Grimes DO Admitting Clinician BUNNY DE PAZ Admitting Clinician Unavailable Bunny De Paz MD Admitting Clinician ELVIA ESTRADA Admitting Clinician Unavailable LOUIE WARREN Admitting Clinician Unavailable Sai Lomas MD Admitting Clinician Payers Payer Name Policy Type Policy Number Effective Date Expiration Date S ource Problems Condition Condition Condition Status Onset Resolution Last Treating Co mments Source Name Details Category Date Date Treatment Clinician Date Abscess of Abscess of Disease Active U nivers finger of finger of 1-03 [place] Left Left Disease Active 2021-03 Univers displaced displaced 2-29 ity of femoral femoral 00:00: [place] neck neck 00 Medical fracture fracture Branch Obesity Obesity Disease Active 2021-03 Univers (BMI (BMI 2-06 ity of 30-39.9) 30-39.9) 00:00: [place] [facility] Gangrene Gangrene Disease Active 2021-03 Unive rs of finger of finger 2-06 ity of of left of left 00:00: [place] hand hand 00 Medical Branch S/P S/P Disease Active 2020-0 Univers amputation amputation 9-22 it y of of foot, of foot, 00:00: [place] left left 00 Medical Branch S/P S/P Disease Active 2020-0 Univers amputation amputation 9- it y of of foot, of foot, 00:00: [facility] left 00 Medical Branch 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 9 it y of emia emia 00:00: [place] [address] Medical Branch [facility] Hospital Disease Active 2020-0 Unive rs discharge discharge 12-19 ity of follow-up follow-up 00:00: [facility] s Medical Branch Need for Need for Disease Active 2020-0 Unive rs influenza influenza 9 ity of vaccinatio vaccinatio [place] Need for Need for Disease Active 2020-0 Unive rs Tdap Tdap 9- ity of vaccinatio vaccinatio [place] Diabetes Diabetes Disease Active 2020-0 Unive rs mellitus mellitus 8- ity of type 2, type 2, 00:00: [place] insulin insulin 00 Medical dependent dependent Bran ch Gangrene Gangrene Disease Active 2020-0 Unive rs of toe of of toe of 8-29 ity of left foot left foot 00:[place] Bandemia Bandemia Disease Active 2020-0 Unive rs 8- ity of 00:00: [place] [address] Medical Branch Lactic Lactic Disease Active 2020-0 Univers acidosis acidosis 8- ity of 00:00: [place] [address] Medical Branch Essential Essential Disease Active 2020-0 Uni vers hypertensi hypertensi 8- it y of on on 00:00: [place] [address] Medical Branch Leukocytos Leukocytos Disease Active 2020-0 U nivers is is 8- ity of 00:00: [place] [address] Medical Branch Hyponatrem Hyponatrem Disease Active 2020-0 U nivers ia ia 8-29 ity of 00:00: [place] 00 Medical Branch [...] Added automatic ally from request for surgery [id number] Cellulitis Cellulitis Disease Active U nivers of finger of finger 06-29 ity of of right of right 00:00: [place] hand hand 00 Medical Branch Allergies, Adverse Reactions, Alerts Allergy Allergy Status Severity Reaction(s) Onset Inactive Treating Comm ents Source Name Type Date Date Clinician NO KNOWN Drug Active Univers ALLERGIE Class ity of S [facility] Family History Family Member Diagnosis Comments Start Date Stop Date Source Natural brother Diabetes [facility] Natural mother Diabetes [facility] Natural sister Diabetes [facility] Social History Social Habit Start Date Stop Date Quantity Comments Source History SDOH Social Unive rsity of [facility] Med ical Together Branch History SDOH Social Unive rsity of [facility] Medical Branch History SDOH Social Unive rsity of [facility] Medical Membership Branch History SDIA Social Unive rsity of [facility] Branch Alcohol intake 2022-05-15 2022-05-15 .29 /d University 00:00:00 00:00:00 [place] [facility] Exposure to 2022-05-04 2022-05-14 Not sure University of SARS-CoV-2 (event) 00:00:00 13:33:00 [place] [facility] History SDOH 2022-03-28 2022-03-28 2 University o f Alcohol Frequency 00:00:00 00:00:00 [facility] edical Branch History SDOH 2022-03-28 2022-03-28 1 University o f Alcohol Std Drinks 00:00:00 00:00:00 [place] [facility] History SDOH 2022-03-28 2022-03-28 2 University o f Alcohol Binge 00:00:00 00:00:00 [place] Medic al Branch History SDIA Social 2022-03-28 2022-03-28 5 Unive rsity of Connections Phone 00:00:00 00:00:00 [facility] edical Branch History SDOH Social 2022-03-28 2022-03-28 7 Unive rsity of [facility] Living 00:00:00 00:00:00 [place] [facility] History SDOH 2022-03-28 2022-03-28 4 University o f Financial 00:00:00 00:00:00 [place] [facility] History SDIA Food 2022-03-28 2022-03-28 1 Univers ity of Worry 00:00:00 00:00:00 [place] [facility] History SDOH Food 2022-03-28 2022-03-28 1 Univers ity of Scarcity 00:00:00 00:00:00 [place] [facility] History [facility] 2022-03-28 2022-03-28 2 University o f Transport Med 00:00:00 00:00:00 [place] Medic al Branch History [facility] 2022-03-28 2022-03-28 2 University o f Transport Non-Med 00:00:00 00:00:00 [facility] Tobacco use and 2022-02-12 2022-02-12 Smokeless Universit y of exposure 00:00:00 00:00:00 tobacco non-user [facility] Sex Ass[birth year] At [birth year] Universit y of 00:00:00 00:00:00 [facility] Smoking Status Start Date Stop Date Source Never smoked tobacco [facility] Medications Ordered Filled Start Stop Current Ordering Indication Dosage Frequency Signature Comments Components Source Medication Medication Date Date Medication? Clinician (SIG) Name Name sodium 2022- Yes [id number] 10mL Apply 10 U nivers hypochlorit 2-15 09-04 mL to ity of e 0.025% 00:00: 04:59 area(s) [facility] 00 :00 daily for Medical solution 200 days. Branch sodium 2022- Yes [id number] 10mL Apply 10 U nivers hypochlorit 2-15 09-04 mL to ity of e 0.025% 00:00: 04:59 area(s) [facility] 00 :00 daily for Medical solution 200 days. Branch sodium 2022- Yes [id number] 10mL Apply 10 U nivers hypochlorit 2-15 09-04 mL to ity of e 0.025% 00:00: 04:59 area(s) [facility] 00 :00 daily for Medical solution 200 days. Branch sodium 2022- Yes [id number] 10mL Apply 10 U nivers hypochlorit 2-15 09-04 mL to ity of e 0.025% 00:00: 04:59 area(s) [facility] 00 :00 daily for Medical solution 200 days. Branch sodium 2022- Yes [id number] 10mL Apply 10 U nivers hypochlorit 2-15 09-04 mL to ity of e 0.025% 00:00: 04:59 area(s) [facility] 00 :00 daily for Medical solution 200 days. Branch ergocalcife 2022- Yes [id number] Take 1 Univers rol, 1-15 03-17 capsule by ity of vitamin d2, 00:00[place] 04:[place] 1,250 m[place] 00 :00 weekly for Medi shade (50,000 60 days. Branch unit) capsule ergocalcife 2022- Yes [id number] Take 1 Univers rol, 1-15 03-17 capsule by ity of vitamin d2, 00:00: 04:59 [place] 1,250 mcg 00 :00 weekly for Medi shade (50,000 60 days. Branch unit) capsule ergocalcife 2022- Yes [id number] Take 1 Univers rol, 1-15 03-17 capsule by ity of vitamin d2, 00:00: 04:59 [place] 1,250 mcg 00 :00 weekly for Medi shade (50,000 60 days. Branch unit) capsule ergocalcife 2022- Yes [id number] Take 1 Univers rol, 1-15 03-17 capsule by ity of vitamin d2, 00:00: 04:59 [place] 1,250 mcg 00 :00 weekly for Medi shade (50,000 60 days. Branch unit) capsule ergocalcife 2022-0 2022- Yes [id number] Take 1 Univers rol, 1-15 03-17 capsule by ity of vitamin d2, 00:00: 04:59 [place] 1,250 mcg 00 :00 weekly for Medi shade (50,000 60 days. Branch unit) capsule ergocalcife 2022-0 2022- Yes [id number] Take 1 Univers rol, 1-15 03-17 capsule by ity of vitamin d2, 00:00: 04:59 [place] 1,250 mcg 00 :00 weekly for Medi shade (50,000 60 days. Branch unit) capsule ergocalcife 2022-0 2022- Yes [id number] Take 1 Univers rol, 1-15 03-17 capsule by ity of vitamin d2, 00:00: 04:59 [place] 1,250 mcg 00 :00 weekly for Medi shade (50,000 60 days. Branch unit) capsule ergocalcife 2022-0 2022- Yes [id number] Take 1 Univers rol, 1-15 03-17 capsule by ity of vitamin d2, 00:00: 04:59 [place] 1,250 mcg 00 :00 weekly for Medi shade (50,000 60 days. Branch unit) capsule ergocalcife 2022-0 2022- Yes [id number] Take 1 Univers rol, 1-15 03-17 capsule by ity of vitamin d2, 00:00: 04:59 [place] 1,250 mcg 00 :00 weekly for Medi shade (50,000 60 days. Branch unit) capsule ergocalcife 2022-0 2022- Yes [id number] Take 1 Univers rol, 1-15 03-17 capsule by ity of vitamin d2, 00:00: 04:59 [place] 1,250 mcg 00 :00 weekly for Medi shade (50,000 60 days. Branch unit) capsule ergocalcife 2022-0 2022- Yes [id number] Take 1 Univers rol, 1-15 03-17 capsule by ity of vitamin d2, 00:00: 04:59 [place] 1,250 mcg 00 :00 weekly for Medi shade (50,000 60 days. Branch unit) capsule ergocalcife 2022- Yes [id number] Take 1 Univers rol, 1-15 03-17 capsule by ity of vitamin d2, 00:00: 04:59 [place] 1,250 mcg 00 :00 weekly for Medi shade (50,000 60 days. Branch unit) capsule ergocalcife 2022- Yes [id number] Take 1 Univers rol, 1-15 03-17 capsule by ity of vitamin d2, 00:00: 04:59 [place] 1,250 mcg 00 :00 weekly for Medi shade (50,000 60 days. Branch unit) capsule ergocalcife 2022- Yes [id number] Take 1 Univers rol, 1-15 03-17 capsule by ity of vitamin d2, 00:00: 04:59 [place] 1,250 mcg 00 :00 weekly for Medi shade (50,000 60 days. Branch unit) capsule ergocalcife 2022- Yes [id number] Take 1 Univers rol, 1-15 03-17 capsule by ity of vitamin d2, 00:00: 04:59 [place] 1,250 mcg 00 :00 weekly for Medi shade (50,000 60 days. Branch unit) capsule ergocalcife 2022- Yes [id number] Take 1 Univers rol, 1-15 03-17 capsule by ity of vitamin d2, 00:00: 04:59 [place] 1,250 mcg 00 :00 weekly for Medi shade (50,000 60 days. Branch unit) capsule ergocalcife 2022- Yes [id number] Take 1 Univers rol, 1-15 03-17 capsule by ity of vitamin d2, 00:00: 04:59 [place] 1,250 mcg 00 :00 weekly for Medi shade (50,000 60 days. Branch unit) capsule lisinopriL Yes [id number] 20mg Take 1 Univers 20 mg 1-10 tablet by ity of tablet 00:00: mouth [place] 00 daily. Medical Branch lisinopriL 2022-0 Yes [id number] 20mg Take 1 Univers 20 mg 1-10 tablet by ity of tablet 00:00: mouth [place] 00 daily. Medical Branch lisinopriL 2022-0 Yes [id number] 20mg Take 1 Univers 20 mg 1-10 tablet by ity of tablet 00:00: mouth [place] 00 daily. Medical Branch lisinopriL 2022-0 Yes [id number] 20mg Take 1 Univers 20 mg 1-10 tablet by ity of tablet 00:00: mouth [place] 00 daily. Medical Branch lisinopriL 2022-0 Yes [id number] 20mg Take 1 Univers 20 mg 1-10 tablet by ity of tablet 00:00: mouth [place] 00 daily. Medical Branch lisinopriL 2022-0 Yes [id number] 20mg Take 1 Univers 20 mg 1-10 tablet by ity of tablet 00:00: mouth [place] 00 daily. Medical Branch lisinopriL 2022-0 Yes [id number] 20mg Take 1 Univers 20 mg 1-10 tablet by ity of tablet 00:00: mouth [place] 00 daily. Medical Branch lisinopriL 2022-0 Yes [id number] 20mg Take 1 Univers 20 mg 1-10 tablet by ity of tablet 00:00: mouth [place] 00 daily. Medical Branch lisinopriL 2022-0 Yes [id number] 20mg Take 1 Univers 20 mg 1-10 tablet by ity of tablet 00:00: mouth [place] 00 daily. Medical Branch lisinopriL 2022-0 Yes [id number] 20mg Take 1 Univers 20 mg 1-10 tablet by ity of tablet 00:00: mouth [place] 00 daily. Medical Branch lisinopriL 2022-0 Yes [id number] 20mg Take 1 Univers 20 mg 1-10 tablet by ity of tablet 00:00: mouth [place] 00 daily. Medical Branch lisinopriL 2022-0 Yes [id number] 20mg Take 1 Univers 20 mg 1-10 tablet by ity of tablet 00:00: mouth [place] 00 daily. Medical Branch lisinopriL 2022-0 Yes [id number] 20mg Take 1 Univers 20 mg 1-10 tablet by ity of tablet 00:00: mouth [place] 00 daily. Medical Branch lisinopriL 2022-0 Yes [id number] 20mg Take 1 Univers 20 mg 1-10 tablet by ity of tablet 00:00: mouth [place] 00 daily. Medical Branch lisinopriL 2022-0 Yes [id number] 20mg Take 1 Univers 20 mg 1-10 tablet by ity of tablet 00:00: mouth [place] 00 daily. Medical Branch lisinopriL Yes [id number] 20mg Take 1 Univers 20 mg 1-10 tablet by ity of tablet 00:00: mouth [place] 00 daily. Medical Branch lisinopriL Yes [id number] 20mg Take 1 Univers 20 mg 1-10 tablet by ity of tablet 00:00: mouth [place] 00 daily. Medical Branch pantoprazol 2022- Yes [id number] 40mg Take 1 Univers e 40 mg EC 1-12 31-11 tablet by ity of tablet 00:00: 04:59 mouth [place] 00 :00 daily for Medical 90 days. Branch pantoprazol 2022- Yes [id number] 40mg Take 1 Univers e 40 mg EC 1- tablet by ity of tablet 00:00: 04:59 mouth [place] 00 :00 daily for Medical 90 days. Branch pantoprazol 2022- Yes [id number] 40mg Take 1 Univers e 40 mg EC 04-08-11 tablet by ity of tablet 00:00: 04:59 mouth [place] 00 :00 daily for Medical 90 days. Branch pantoprazol 2022- Yes [id number] 40mg Take 1 Univers e 40 mg EC 04-08-11 tablet by ity of tablet 00:00: 04:59 mouth [place] 00 :00 daily for Medical 90 days. Branch pantoprazol 2022- Yes [id number] 40mg Take 1 Univers e 40 mg EC 04-08-11 tablet by ity of tablet 00:00: 04:59 mouth [place] 00 :00 daily for Medical 90 days. Branch pantoprazol 2022- Yes [id number] 40mg Take 1 Univers e 40 mg EC 1-12 31-11 tablet by ity of tablet 00:00: 04:59 mouth [place] 00 :00 daily for Medical 90 days. Branch pantoprazol 2022- Yes [id number] 40mg Take 1 Univers e 40 mg EC 1-12 31-11 tablet by ity of tablet 00:00: 04:59 mouth [place] 00 :00 daily for Medical 90 days. Branch pantoprazol 2022- Yes [id number] 40mg Take 1 Univers e 40 mg EC 1-12 31-11 tablet by ity of tablet 00:00: 04:59 mouth [place] 00 :00 daily for Medical 90 days. Branch pantoprazol 2022- Yes [id number] 40mg Take 1 Univers e 40 mg EC 04-08- tablet by ity of tablet 00:00: 04:59 mouth [place] 00 :00 daily for Medical 90 days. Branch pantoprazol 2022- Yes [id number] 40mg Take 1 Univers e 40 mg EC 04-08 tablet by ity of tablet 00:00: 04:59 mouth [place] 00 :00 daily for Medical 90 days. Branch pantoprazol 2022- Yes [id number] 40mg Take 1 Univers e 40 mg EC 04-08 tablet by ity of tablet 00:00: 04:59 mouth [place] 00 :00 daily for Medical 90 days. Branch pantoprazol 2022- Yes [id number] 40mg Take 1 Univers e 40 mg EC 04-08 tablet by ity of tablet 00:00: 04:59 mouth [place] 00 :00 daily for Medical 90 days. Branch pantoprazol 2022- Yes [id number] 40mg Take 1 Univers e 40 mg EC 04-0811 tablet by ity of tablet 00:00: 04:59 mouth [place] 00 :00 daily for Medical 90 days. Branch pantoprazol 2022- Yes [id number] 40mg Take 1 Univers e 40 mg EC 04-0811 tablet by ity of tablet 00:00: 04:59 mouth [place] 00 :00 daily for Medical 90 days. Branch pantoprazol 2022- Yes [id number] 40mg Take 1 Univers e 40 mg EC 04-0811 tablet by ity of tablet 00:00: 04:59 mouth [place] 00 :00 daily for Medical 90 days. Branch pantoprazol 2022- Yes [id number] 40mg Take 1 Univers e 40 mg EC 1-11 tablet by ity of tablet 00:00: 04:59 mouth [place] 00 :00 daily for Medical 90 days. Branch pantoprazol 2022- Yes [id number] 40mg Take 1 Univers e 40 mg EC 04-08-11 tablet by ity of tablet 00:00: 04:59 mouth [place] 00 :00 daily for Medical 90 days. Branch lisinopriL 2022- No [id number] 40mg Take 2 Univers 20 mg 1-10 - tablets by ity of tablet 00:00: 00:00 mouth [place] 00 :00 daily for Medical 90 days. Branch sodium 0 Yes 16[oz_a 16 oz, Univer s hypochlorit 1-09 v] Topical, ity of e 0.5% 18:45: BID, First [place] (DAKINS) 00 dose on Medical solution Thu04/07/22 Br anch oz at 1245, Until Discontinu ed, Routine pantoprazol Yes 40mg 40 mg, Univ ers e -09 Oral, ity of (PROTONIX) 15:00: DAILY, [place] EC tablet 00 First dose Medi shade 40 mg on Thu04/07/22 at 0900, Until Discontinu ed, Routine sodium 2022-0 Yes [id number] 16[oz_a Apply 473 Univers hypochlorit 1-09 v] mL to ity of e 0.5% 00:00: area(s) 2 [place] solution 00 (two) Medical times Branch daily. sodium 2022-0 Yes [id number] 16[oz_a Apply 473 Univers hypochlorit 1-09 v] mL to ity of e 0.5% 00:00: area(s) 2 [place] solution 00 (two) Medical times Branch daily. sodium 2022-0 Yes [id number] 16[oz_a Apply 473 Univers hypochlorit 1-09 v] mL to ity of e 0.5% 00:00: area(s) 2 [place] solution 00 (two) Medical times Branch daily. sodium 2023-0 Yes [id number] 16[oz_a Apply 473 Univers hypochlorit 1-09 v] mL to ity of e 0.5% 00:00: area(s) 2 [place] solution 00 (two) Medical times Branch daily. sodium 2023-0 Yes [id number] 16[oz_a Apply 473 Univers hypochlorit 1-09 v] mL to ity of e 0.5% 00:00: area(s) 2 [place] solution 00 (two) Medical times Branch daily. sodium 2022-0 Yes [id number] 16[oz_a Apply 473 Univers hypochlorit 1-09 v] mL to ity of e 0.5% 00:00: area(s) 2 [place] solution 00 (two) Medical times Branch daily. sodium 2023-0 Yes [id number] 16[oz_a Apply 473 Univers hypochlorit 1-09 v] mL to ity of e 0.5% 00:00: area(s) 2 [place] solution 00 (two) Medical times Branch daily. sodium 2023-0 Yes [id number] 16[oz_a Apply 473 Univers hypochlorit 1-09 v] mL to ity of e 0.5% 00:00: area(s) 2 [place] solution 00 (two) Medical times Branch daily. sodium 2023-0 Yes [id number] 16[oz_a Apply 473 Univers hypochlorit 1-09 v] mL to ity of e 0.5% 00:00: area(s) 2 [place] solution 00 (two) Medical times Branch daily. sodium 2023-0 Yes [id number] 16[oz_a Apply 473 Univers hypochlorit 1-09 v] mL to ity of e 0.5% 00:00: area(s) 2 [place] solution 00 (two) Medical times Branch daily. sodium 2023-0 Yes [id number] 16[oz_a Apply 473 Univers hypochlorit 1-09 v] mL to ity of e 0.5% 00:00: area(s) 2 [place] solution 00 (two) Medical times Branch daily. sodium 2023-0 Yes [id number] 16[oz_a Apply 473 Univers hypochlorit 1-09 v] mL to ity of e 0.5% 00:00: area(s) 2 [place] solution 00 (two) Medical times Branch daily. sodium 2023-0 Yes [id number] 16[oz_a Apply 473 Univers hypochlorit 1-09 v] mL to ity of e 0.5% 00:00: area(s) 2 [place] solution 00 (two) Medical times Branch daily. sodium 2023-0 Yes [id number] 16[oz_a Apply 473 Univers hypochlorit 1-09 v] mL to ity of e 0.5% 00:00: area(s) 2 [place] solution 00 (two) Medical times Branch daily. sodium 2023-0 Yes [id number] 16[oz_a Apply 473 Univers hypochlorit 1-09 v] mL to ity of e 0.5% 00:00: area(s) 2 [place] solution 00 (two) Medical times Branch daily. sodium 3-0 Yes [id number] 16[oz_a Apply 473 Univers hypochlorit 1-09 v] mL to ity of e 0.5% 00:00: area(s) 2 [place] solution 00 (two) Medical times Branch daily. sodium 2022-0 Yes [id number] 16[oz_a Apply 473 Univers hypochlorit 1-09 v] mL to ity of e 0.5% 00:00: area(s) 2 [place] solution 00 (two) Medical times Branch daily. amLODIPine 2022- Yes [id number] 5mg Take 1 Univers 5 mg tablet 04-07-10 tablet by it y of 00:00: 04:59 mouth [place] 00 :00 daily for Medical 90 days. Branch carvediloL 2022- Yes [id number] 25mg Take 1 Univers 25 mg 04-07-10 tablet by ity of tablet 00:00: 04:59 mouth 2 [place] 00 :00 (two) Medical times Branch daily with meals for 90 days. amLODIPine 2022- Yes [id number] 5mg Take 1 Univers 5 mg tablet 04-07-10 tablet by it y of 00:00: 04:59 mouth [place] 00 :00 daily for Medical 90 days. Branch carvediloL 2022- Yes [id number] 25mg Take 1 Univers 25 mg 04-07-10 tablet by ity of tablet 00:00: 04:59 mouth 2 [place] 00 :00 (two) Medical times Branch daily with meals for 90 days. amLODIPine 2022- Yes [id number] 5mg Take 1 Univers 5 mg tablet 04-07-10 tablet by it y of 00:00: 04:59 mouth [place] 00 :00 daily for Medical 90 days. Branch carvediloL 2022- Yes [id number] 25mg Take 1 Univers 25 mg 04-07-10 tablet by ity of tablet 00:00: 04:59 mouth 2 [place] 00 :00 (two) Medical times Branch daily with meals for 90 days. amLODIPine 2022- Yes [id number] 5mg Take 1 Univers 5 mg tablet 04-07-10 tablet by it y of 00:00: 04:59 mouth [place] 00 :00 daily for Medical 90 days. Branch carvediloL 2022- Yes [id number] 25mg Take 1 Univers 25 mg 04-07-10 tablet by ity of tablet 00:00: 04:59 mouth 2 [place] 00 :00 (two) Medical times Branch daily with meals for 90 days. amLODIPine 2022- Yes [id number] 5mg Take 1 Univers 5 mg tablet 04-07-10 tablet by it y of 00:00: 04:59 mouth [place] 00 :00 daily for Medical 90 days. Branch carvediloL 2022- Yes [id number] 25mg Take 1 Univers 25 mg 04-07-10 tablet by ity of tablet 00:00: 04:59 mouth 2 [place] 00 :00 (two) Medical times Branch daily with meals for 90 days. amLODIPine 2022- Yes [id number] 5mg Take 1 Univers 5 mg tablet 04-07-10 tablet by it y of 00:00: 04:59 mouth [place] 00 :00 daily for Medical 90 days. Branch carvediloL 2022- Yes [id number] 25mg Take 1 Univers 25 mg 04-07-10 tablet by ity of tablet 00:00: 04:59 mouth 2 [place] 00 :00 (two) Medical times Branch daily with meals for 90 days. amLODIPine 2022- Yes [id number] 5mg Take 1 Univers 5 mg tablet 04-07-10 tablet by it y of 00:00: 04:59 mouth [place] 00 :00 daily for Medical 90 days. Branch carvediloL 2022- Yes [id number] 25mg Take 1 Univers 25 mg 04-07-10 tablet by ity of tablet 00:00: 04:59 mouth 2 [place] 00 :00 (two) Medical times [place] daily with meals for 90 days. amLODIPine 2022- Yes [id number] 5mg Take 1 Univers 5 mg tablet 04-07-10 tablet by it y of 00:00: 04:59 mouth [place] 00 :00 daily for Medical 90 days. Branch carvediloL 2022- Yes [id number] 25mg Take 1 Univers 25 mg 04-07-10 tablet by ity of tablet 00:00: 04:59 mouth 2 [place] 00 :00 (two) Medical times [place] daily with meals for 90 days. amLODIPine 2022- Yes [id number] 5mg Take 1 Univers 5 mg tablet 04-07-10 tablet by it y of 00:00: 04:59 mouth [place] 00 :00 daily for Medical 90 days. Branch carvediloL 2022- Yes [id number] 25mg Take 1 Univers 25 mg 04-07-10 tablet by ity of tablet 00:00: 04:59 mouth 2 [place] 00 :00 (two) Medical times [place] daily with meals for 90 days. amLODIPine 2022- Yes [id number] 5mg Take 1 Univers 5 mg tablet 04-0710 tablet by it y of 00:00: 04:59 mouth [place] 00 :00 daily for Medical 90 days. Branch carvediloL 2022- Yes [id number] 25mg Take 1 Univers 25 mg 04-07-10 tablet by ity of tablet 00:00: 04:59 mouth 2 [place] 00 :00 (two) Medical times [place] daily with meals for 90 days. amLODIPine 2022- Yes [id number] 5mg Take 1 Univers 5 mg tablet 04-0710 tablet by it y of 00:00: 04:59 mouth [place] 00 :00 daily for Medical 90 days. Branch carvediloL 2022- Yes [id number] 25mg Take 1 [facility] 25 mg 04-07-10 tablet by ity of tablet 00:00: 04:59 mouth 2 [place] 00 :00 (two) Medical times [place] daily with meals for 90 days. amLODIPine 2022- Yes [id number] 5mg Take 1 [facility] 5 mg tablet 04-07-10 tablet by it y of 00:00: 04:59 mouth [place] 00 :00 daily for Medical 90 days. Branch carvediloL 2022- Yes [id number] 25mg Take 1 [facility] 25 mg 04-07-10 tablet by ity of tablet 00:00: 04:59 mouth 2 [place] 00 :00 (two) Medical times Branch daily with meals for 90 days. amLODIPine 2022- Yes [id number] 5mg Take 1 [facility] 5 mg tablet 04-0710 tablet by it y of 00:00: 04:59 mouth [place] 00 :00 daily for Medical 90 days. Branch carvediloL 2022- Yes [id number] 25mg Take 1 [facility] 25 mg 04-07-10 tablet by ity of tablet 00:00: 04:59 mouth 2 [place] 00 :00 (two) Medical times Branch daily with meals for 90 days. amLODIPine 2022- Yes [id number] 5mg Take 1 [facility] 5 mg tablet 04-07 tablet by it y of 00:00: 04:59 mouth [place] 00 :00 daily for Medical 90 days. Branch carvediloL 2022- Yes [id number] 25mg Take 1 [facility] 25 mg 04-0710 tablet by ity of tablet 00:00: 04:59 mouth 2 [place] 00 :00 (two) Medical times Branch daily with meals for 90 days. amLODIPine 2022- Yes [id number] 5mg Take 1 [facility] 5 mg tablet 04-07 tablet by it y of 00:00: 04:59 mouth [place] 00 :00 daily for Medical 90 days. Branch carvediloL 2022- Yes [id number] 25mg Take 1 [facility] 25 mg 04-0710 tablet by ity of tablet 00:00: 04:59 mouth 2 [place] 00 :00 (two) Medical times Branch daily with meals for 90 days. amLODIPine 2022- Yes [id number] 5mg Take 1 [facility] 5 mg tablet 04-0710 tablet by it y of 00:00: 04:59 mouth [place] 00 :00 daily for Medical 90 days. Branch carvediloL 2022- Yes [id number] 25mg Take 1 [facility] 25 mg 04-07-10 tablet by ity of tablet 00:00: 04:59 mouth 2 [place] 00 :00 (two) Medical times Branch daily with meals for 90 days. amLODIPine 2022- Yes [id number] 5mg Take 1 [facility] 5 mg tablet 04-07 tablet by it y of 00:00: 04:59 mouth [place] 00 :00 daily for Medical 90 days. Branch carvediloL 2022- Yes [id number] 25mg Take 1 [facility] 25 mg 04-07 tablet by ity of tablet 00:00: 04:59 mouth 2 [place] 00 :00 (two) Medical times Branch daily with meals for 90 days. lactulose 2022- Yes [id number] 15mL Take 15 mL [facility] 10 gram/15 04-07 by mouth 2 it y of mL solution 00:00: 05:59 (two[place] 00 :[place] times Medical daily for Branch 30 days. acetaminoph 2022- Yes [id number] 650mg Take 2 [facility] en 325 mg 04-07 tablets by ity of tablet 00:00: 05:59 mouth [place] 00 :00 every 6 Medical (six) Branch hours as needed for Pain (scale 1-3) for up to 30 days. aspirin 2022- Yes [id number] 325mg Take 1 [facility] 325 mg 04-07 tablet by it y of EC tablet 00:00: 05:59 mouth [place] 00 :00 daily for Medical 30 days. Branch lactulose 2022- Yes [id number] 15mL Take 15 mL [facility] 10 gram/15 04-07 by mouth 2 it y of mL solution 00:00: 05:59 (two) [place] 00 :[place] times Medical daily for Branch 30 days. acetaminoph 2022- Yes [id number] 650mg Take 2 [facility] en 325 mg 04-07 tablets by ity of tablet 00:00: 05:59 mouth [place] 00 :00 every 6 Medical (six) Branch hours as needed for Pain (scale 1-3) for up to 30 days. aspirin 2022- Yes [id number] 325mg Take 1 [facility] 325 mg 04-07 tablet by it y of EC tablet 00:00: 05:59 mouth [place] 00 :00 daily for Medical 30 days. Branch lactulose 2022- Yes [id number] 15mL Take 15 mL [facility] 10 gram/15 04-07 by mouth 2 it y of mL solution 00:00: 05:59 (two) [place] 00 :[place] times Medical daily for Branch 30 days. acetaminoph 2022- Yes [id number] 650mg Take 2 [facility] en 325 mg 04-07 tablets by ity of tablet 00:00: 05:59 mouth [place] 00 :00 every 6 Medical (six) Branch hours as needed for Pain (scale 1-3) for up to 30 days. aspirin 2022- Yes [id number] 325mg Take 1 [facility] 325 mg 04-07 tablet by it y of EC tablet 00:00: 05:59 mouth [place] 00 :00 daily for Medical 30 days. Branch lactulose 2022- Yes [id number] 15mL Take 15 mL [facility] 10 gram/15 04-07 by mouth 2 it y of mL solution 00:00: 05:59 (two) [place] 00 :00 times Medical daily for Branch 30 days. acetaminoph 2022- Yes [id number] 650mg Take 2 [facility] en 325 mg 04-07 tablets by ity of tablet 00:00: 05:59 mouth [place] 00 :00 every 6 Medical (six) Branch hours as needed for Pain (scale 1-3) for up to 30 days. aspirin 2022- Yes [id number] 325mg Take 1 [facility] 325 mg 04-07 tablet by it y of EC tablet 00:00: 05:59 mouth [place] 00 :00 daily for Medical 30 days. Branch lactulose 2022- Yes [id number] 15mL Take 15 mL [facility] 10 gram/15 04-07 by mouth 2 it y of mL solution 00:00: 05:59 (two) [place] 00 :00 times Medical daily for Branch 30 days. acetaminoph 2022- Yes [id number] 650mg Take 2 [facility] en 325 mg 04-07 tablets by ity of tablet 00:00: 05:59 mouth [place] 00 :00 every 6 Medical (six) Branch hours as needed for Pain (scale 1-3) for up to 30 days. aspirin 2022- Yes [id number] 325mg Take 1 [facility] 325 mg 04-07 tablet by it y of EC tablet 00:00: 05:59 mouth [place] 00 :00 daily for Medical 30 days. Branch lactulose 2022- Yes [id number] 15mL Take 15 mL [facility] 10 gram/15 04-07 by mouth 2 it y of mL solution 00:00: 05:59 (two) [place] 00 :00 times Medical daily for Branch 30 days. acetaminoph 2022- Yes [id number] 650mg Take 2 [facility] en 325 mg 04-07 tablets by ity of tablet 00:00: 05:59 mouth [place] 00 :00 every 6 Medical (six) Branch hours as needed for Pain (scale 1-3) for up to 30 days. aspirin 2022- Yes [id number] 325mg Take 1 [facility] 325 mg 04-07 tablet by it y of EC tablet 00:00: 05:59 mouth [place] 00 :00 daily for Medical 30 days. Branch lactulose 2022- Yes [id number] 15mL Take 15 mL [facility] 10 gram/15 04-07 by mouth 2 it y of mL solution 00:00: 05:59 (two) [place] 00 :00 times Medical daily for Branch 30 days. acetaminoph 2022- Yes [id number] 650mg Take 2 [facility] en 325 mg 04-07 tablets by ity of tablet 00:00: 05:59 mouth [place] 00 :00 every 6 Medical (six) Branch hours as needed for Pain (scale 1-3) for up to 30 days. aspirin 2022- Yes [id number] 325mg Take 1 [facility] 325 mg 04-07 tablet by it y of EC tablet 00:00: 05:59 mouth [place] 00 :00 daily for Medical 30 days. Branch lactulose 2022- Yes [id number] 15mL Take 15 mL [facility] 10 gram/15 04-07 by mouth 2 it y of mL solution 00:00: 05:59 (two) [place] 00 :00 times Medical daily for Branch 30 days. acetaminoph 2022- Yes [id number] 650mg Take 2 [facility] en 325 mg 04-07 tablets by ity of tablet 00:00: 05:59 mouth [place] 00 :00 every 6 Medical (six) Branch hours as needed for Pain (scale 1-3) for up to 30 days. aspirin 2022- Yes [id number] 325mg Take 1 [facility] 325 mg 04-07 tablet by it y of EC tablet 00:00: 05:59 mouth [place] 00 :00 daily for Medical 30 days. Branch lactulose 2022- Yes [id number] 15mL Take 15 mL [facility] 10 gram/15 04-07 by mouth 2 it y of mL solution 00:00: 05:59 (two) [place] 00 :00 times Medical daily for Branch 30 days. acetaminoph 2022- Yes [id number] 650mg Take 2 [facility] en 325 mg 04-07 tablets by ity of tablet 00:00: 05:59 mouth [place] 00 :00 every 6 Medical (six) Branch hours as needed for Pain (scale 1-3) for up to 30 days. aspirin 2022- Yes [id number] 325mg Take 1 [facility] 325 mg 04-07 tablet by it y of EC tablet 00:00: 05:59 mouth [place] 00 :00 daily for Medical 30 days. Branch lactulose 2022- Yes [id number] 15mL Take 15 mL [facility] 10 gram/15 04-07 by mouth 2 it y of mL solution 00:00: 05:59 (two) [place] 00 :00 times Medical daily for Branch 30 days. acetaminoph 2022- Yes [id number] 650mg Take 2 [facility] en 325 mg 04-07 tablets by ity of tablet 00:00: 05:59 mouth [place] 00 :00 every 6 Medical (six) Branch hours as needed for Pain (scale 1-3) for up to 30 days. aspirin 2022- Yes [id number] 325mg Take 1 [facility] 325 mg 04-07 tablet by it y of EC tablet 00:00: 05:59 mouth [place] 00 :00 daily for Medical 30 days. Branch lactulose 2022- Yes [id number] 15mL Take 15 mL [facility] 10 gram/15 04-07 by mouth 2 it y of mL solution 00:00: 05:59 (two) [place] 00 :00 times Medical daily for Branch 30 days. acetaminoph 2022- Yes [id number] 650mg Take 2 [facility] en 325 mg 04-07 tablets by ity of tablet 00:00: 05:59 mouth [place] 00 :00 every 6 Medical (six) Branch hours as needed for Pain (scale 1-3) for up to 30 days. aspirin 2022- Yes [id number] 325mg Take 1 [facility] 325 mg 04-07 tablet by it y of EC tablet 00:00: 05:59 mouth [place] 00 :00 daily for Medical 30 days. Branch levoFLOXaci 2022- Yes [id number] 750mg Take 1 [facility] n 750 mg 04-07 tablet by ity o f tablet 00:00: 05:59 mouth [place] 00 :00 every 24 Medical (twenty-fo Branch ur) hours for 10 days. levoFLOXaci 2022- Yes [id number] 750mg Take 1 [facility] n 750 mg 04-07 tablet by ity o f tablet 00:00: 05:59 mouth [place] 00 :00 every 24 Medical (twenty-fo Branch ur) hours for 10 days. levoFLOXaci 2022- Yes [id number] 750mg Take 1 [facility] n 750 mg 04-07 tablet by ity o f tablet 00:00: 05:59 mouth [place] 00 :00 every 24 Medical (twenty-fo Branch ur) hours for 10 days. HYDROcodone 2022- Yes [id number] 1{tbl} Take 1 U nivers -acetaminop 04-07 tablet by it y of hen 10-325 00:00: 05:59 mouth [place] mg tablet 00 :00 every 4 Medical (four) Branch hours for 7 days. Indication s: acute pain, s/p surgery HYDROcodone 2022- Yes [id number] 1{tbl} Take 1 U nivers -acetaminop 04-07 tablet by it y of hen 10-325 00:00: 05:59 mouth [place] mg tablet 00 :00 every 4 Medical (four) Branch hours for 7 days. Indication s: acute pain, s/p surgery HYDROcodone 2022-0 2022- Yes [id number] 1{tbl} Take 1 U nivers -acetaminop 04-07 tablet by it y of hen 10-325 00:00: 05:59 mouth [place] mg tablet 00 :00 every 4 Medical (four) Branch hours for 7 days. Indication s: acute pain, s/p surgery enoxaparin 2022-0 2022- No [id number] 40mg inject 0.4 [facility] 40 mg/0.4 04-07 mL under ity o f mL 00:00: 00:00 the skin [place] injection 00 :00 every 24 Medica l (twenty-fo Branch ur) hours for 30 days. ergocalcife 2022-0 Yes [id number] 50,000 Un davy rol 08 Units, ity of (vitamin 15:00: Oral, [place] d2) 00 QWEEKLY, Medical (CALCIFEROL First dose Br anch ) capsule on Sun 50,000 04/06/22 at Units 0900, Until Discontinu ed, Routine FENTanyl PF 2022- No 75ug 75 mcg, Un davy (SUBLIMAZE 04-06-08 Slow IV ity o f (PF)) 05:30: 04:43 Push, [place] injection 00 :00 ONCE, 1 Medical 75 mcg dose, On Branch 04/05/22 at 2330, Routine amLODIPine 2022-0 Yes 5mg 5 mg, Univer s (NORVASC) 1-06 Oral, ity of tablet 5 mg 15:00: DAILY, [place] 00 First dose Medical (after Branch last modificati on) on Thu04/04/22 at 0900, Until Discontinu ed, Routine amLODIPine 3-0 Yes 5mg 5 mg, Univer s (NORVASC) 1-06 Oral, ity of tablet 5 mg 15:00: DAILY, [place] 00 First dose Medical (after last modificati on) on Thu04/04/22 at 0900, Until Discontinu ed, Routine lactulose 2022-0 Yes 15mL 15 mL, Univer s (CEPHULAC) 1-06 Oral, BID, ity of solution 15 14:00: First dose [place] mL 00 on Fri Medical 04/04/22 at Branch 0800, Until Discontinu ed, Routine amLODIPine 2023-0 2023- No 10mg 10 mg, Univ ers ([facility]) 04-03 01-05 Oral, ity of tablet 10 15:00: 18:08 DAILY, [place] mg 00 :20 First dose Medical (after Branch last modificati on) on [place] 04/03/22 at 0900, Until Discontinu ed, Routine HYDROcodone 2023-0 Yes 1{tbl} 1 tablet, Univers -acetaminop 1-05 Oral, Q4H, it y of hen (NORCO) 03:30: First dose [place] 10-325 mg 00 (after Medical tablet 1 last Branch tablet modificati on) on Thu04/02/22 at 2130, Until Discontinu ed, Routine HYDROcodone 3-0 Yes 1{tbl} 1 tablet, Univers -acetaminop 1-05 Oral, Q4H, it y of hen (NORCO) 03:30: First dose [place] 10-325 mg 00 (after Medical tablet 1 last Branch tablet modificati on) on Thu04/02/22 at 2130, Until Discontinu ed, Routine lactated 2022-0 Yes 500mL at 75 Univers ringers IV 1-04 mL/hr, 500 ity of infusion 22:30: mL, IV [place] 500 mL 00 Infusion, Medical CONTINUOUS Branch , Starting on Thu04/02/22 at 1630, Until Discontinu ed, Routine, PACU KCL 2023-0 2023- No 40meq 40 mEq, Univers (KLOR-CON 04-02- Oral, ity of M20) tablet 14:30: 14:56 ONCE, 1 [place] 40 mEq 00 :00 dose, On Medical Thu04/02/22 Branch at 0830, Routine KCL 2023-0 2023- No 40meq 40 mEq, Univers (KLOR-CON 04-02- Oral, ity of M20) tablet 10:24: 10:47 ONCE, 1 [place] 40 mEq 00 :00 dose, On Medical Thu04/02/22 Branch at 0430, Routine polyethylen 2023-0 Yes 17g 17 g, Unive rs e glycol 1-04 Oral, BID, ity o f 3350 powder 02:00: First dose [place] 17 g 00 (after Medical last Branch modificati on) on Thu04/01/22 at 1999, Until Discontinu ed, Routine sennosides- 2022-0 Yes 1{tbl} 1 tablet, Univers docusate 104 Oral, BID, ity o f sodium 02:00: First dose [place] (SENOKOT-S) 00 (after Medica l 8.6-50 mg last Branch per tablet modificati 1 tablet on) on Thu04/01/22 at 1999, Until Discontinu ed, Routine polyethylen 202-0 Yes 17g 17 g, Unive rs e glycol 04 Oral, BID, ity o f 3350 powder 02:00: First dose [place] 17 g 00 (after Medical last Branch modificati on) on Thu04/01/22 at 1999, Until Discontinu ed, Routine sennosides- 2022-0 Yes 1{tbl} 1 tablet, Univers docusate 104 Oral, BID, ity o f sodium 02:00: First dose [place] (SENOKOT-S) 00 (after Medica l 8.6-50 mg last Branch per tablet modificati 1 tablet on) on Thu04/01/22 at 1999, Until Discontinu ed, Routine enoxaparin 2022-0 Yes 40mg 40 mg, Unive rs (LOVENOX) 04-01 Subcutaneo ity of injection 23:00: us, Q24H, [place] 40 mg 00 First dose Medical on Thu04/01/22 at 1700, Until Discontinu ed, Routine enoxaparin 2022-0 Yes 40mg 40 mg, Unive rs (LOVENOX) 04-01 Subcutaneo ity of injection 23:00: us, Q24H, [place] 40 mg 00 First dose Medical on Thu04/01/22 at 1700, Until Discontinu ed, Routine enoxaparin 2022-0 Yes 40mg 40 mg, Unive rs (LOVENOX) 04-01 Subcutaneo ity of injection 23:00: us, Q24H, [place] 40 mg 00 First dose Medical on Thu04/01/22 at 1700, Until Discontinu ed, Routine piperacilli 2023-0 2023- Yes 4.5g 4.5 g, IV Univers n-tazobacta 04-01 Piggyback, i ty of m (ZOSYN) 21:00: 12:59 Q8H ABX, [place] 4.5 g in 00 :00 41 doses, Medica l NaCl 0.9% First dose Bran ch (NS) 50 mL (after MINI-BAG last modificati on) on Thu04/01/22 at 1500, Last dose on Thu04/14/22 at 2300, Administer over 4 Hours, 50 mL
Reas on for Anti-Infec tive: Empiric Therapy for Suspected Infection< br>Empiric Therapy Site: Blood
D uration of therapy: 5 days piperacilli 2022- Yes 4.5g 4.5 g, IV [facility] n-tazobacta 04-01 Piggyback, i ty of m (ZOSYN) 21:00: 12:59 Q8H ABX, [place] 4.5 g in 00 :00 41 doses, Medica l NaCl 0.9% First dose Bran ch (NS) 50 mL (after MINI-BAG last modificati on) on Thu04/01/22 at 1500, Last dose on Thu04/14/22 at 2300, Administer over 4 Hours, 50 mL
Reas on for Anti-Infec tive: Empiric Therapy for Suspected Infection< br>Empiric Therapy Site: Blood
D uration of therapy: 5 days polyethylen 2022- No 17g 17 g, Univ ers e glycol 04-01 Oral, ity of 3350 powder 16:15: 22:15 DAILY, [place] 17 g 00 :42 First dose Medical on Thu04/01/22 at 1015, Until Discontinu ed, Routine piperacilli 2022- No 3.375g 3.375 g, Univers n-tazobacta 04-01 IV ity of m (ZOSYN) 13:00: 18:26 Piggyback, [place] 3.375 g in 00 :43 Q8H ABX, Medic al NaCl 0.9% 42 doses, Branc h (NS) 50 mL First dose MINI-BAG on Thu04/01/22 at 0700, Last dose on Thu04/14/22 at 2300, Administer over 4 Hours, 50 mL
Reas on for Anti-Infec tive: Empiric Therapy for Suspected Infection< br>Empiric Therapy Site: Blood
D uration of therapy: 5 days piperacilli 2022- No 3.375g 3.375 g, [facility] n-tazobacta 04-01 IV ity of m (ZOSYN) 05:15: 06:45 Piggyback, [place] 3.375 g in 00 :53 ONCE, 1 Medica l NaCl 0.9% dose, On Branch (NS) 50 mL Thu03/31/22 MINI-BAG at 2315, Administer over 30 Minutes, 50 mL
R esmer for Anti-Infec tive: Empiric Therapy for Suspected Infection< br>Empiric Therapy Site: Blood
D uration of therapy: 5 days gadobenate 2022- No [id number] .2mL/kg 14.42 mL [facility] dimeglumine 03-31 [id number] (0.2 mL/kg ity of (MULTIHANCE 23:45: 23:30 ?72.1 kg), [place] -15 mL) 00 :00 Intravenou Medica l injection s, ONCE, 1 Bran ch 14.42 mL dose, On Thu03/31/22 at 1745, Routine amLODIPine Yes 5mg 5 mg, Univer s (NORVASC) 03-31 Oral, ity of tablet 5 mg 15:00: DAILY, [place] 00 First dose Medical on [facility] 03/31/22 at 0900, Until Discontinu ed, Routine amLODIPine 2022- No 5mg 5 mg, Unive rs (NORVASC) 03-3105 Oral, ity of tablet 5 mg 15:00: 13:48 DAILY, [place] 00 :34 First dose Medical on [facility] 03/31/22 at 0900, Until Discontinu ed, Routine carvediloL Yes 25mg 25 mg, Unive rs (COREG) 03-31 Oral, BID ity of tablet 25 14:00: MEALS, [place] mg 00 First dose Medical (after Branch last modificati on) on Thu03/31/22 at 0800, Until Discontinu ed, Routine carvediloL Yes 25mg 25 mg, Unive rs (COREG) 03-31 Oral, BID ity of tablet 25 14:00: MEALS, [place] mg 00 First dose Medical (after Branch last modificati on) on Thu03/31/22 at 0800, Until Discontinu ed, Routine carvediloL Yes 25mg 25 mg, Unive rs (COREG) 03-31 Oral, BID ity of tablet 25 14:00: MEALS, [place] mg 00 First dose Medical (after Branch last modificati on) on Thu03/31/22 at 0800, Until Discontinu ed, Routine vancomycin 2022- Yes 1000mg 1,000 mg, Univers (VANCOCIN) 03-31 IV ity of 1,000 mg in 08:00: 07:59 [facility], [place] NaCl 0.9% 00 :00 Q12H ABX, Medic al (NS) 250 mL 4 doses, Bran ch VIAL-aerospace mechanic dose IV (after piggyback last modificati on) on Thu03/31/22 at 0200, Last dose on Thu04/01/22 at 1400, Administer over 60 Minutes, 250 mL
Reas on for Anti-Infec tive: Empiric Therapy for Suspected Infection< br>Empiric Therapy Site: Skin / Soft tissue<br& gt;Duratio n of therapy: 5 days vancomycin 2022- No 1000mg 1,000 mg, Univers (VANCOCIN) 03-31 IV ity of 1,000 mg in 08:00: 04:30 Piggyback, [place] NaCl 0.9% 00 :14 Q12H ABX, Medic al (NS) 250 mL 4 doses, Bran ch VIAL-aerospace mechanic dose IV (after piggyback last modificati on) on Thu03/31/22 at 0200, Last dose on Thu04/01/22 at 1400, Administer over 60 Minutes, 250 mL
Reas on for Anti-Infec tive: Empiric Therapy for Suspected Infection< br>Empiric Therapy Site: Skin / Soft tissue<br& gt;Duratio n of therapy: 5 days ceFEPIme 2022- Yes 2000mg 2,000 mg, U nivers (MAXIPIME) 03-31 IV ity of 2,000 mg in 07:30: 07:29 [place], [place] NaCl 0.9% 00 :00 Q8H ABX, Medica l (NS) 50 mL 21 doses, Bran ch MINI-BAG First dose on Thu03/31/22 at 0130, Last dose on [place] 04/06/22 at 1730, Administer over 4 Hours, 50 mL
Reas on for Anti-Infec tive: Documented Infection< br>Documen alex Infection Site: Wound
D uration of Therapy: 7 days ceFEPIme 2022- No 2000mg 2,000 mg, U nivers (MAXIPIME) 03-31 IV ity of 2,000 mg in 07:30: 04:30 [place], [place] NaCl 0.9% 00 :14 Q8H ABX, Medica l (NS) 50 mL 21 doses, Bran ch MINI-BAG First dose on Thu03/31/22 at 0130, Last dose on [place] 04/06/22 at 1730, Administer over 4 Hours, 50 mL
Reas on for Anti-Infec tive: Documented Infection< br>Documen alex Infection Site: Wound
D uration of Therapy: 7 days carvediloL 2022- No 12.5mg 12.5 mg, Univers (COREG) 03-31 Oral, ONCE ity o f tablet 12.5 07:00: 06:07 NOW, 1 [place] mg 00 :00 dose, On Medical Thu03/31/22 Branch at 0100, Routine ceFEPIme 2022- No 2000mg 2,000 mg, U nivers (MAXIPIME) 03-30 IV ity of 2,000 mg in 23:45: 04:04 [place], [place] NaCl 0.9% 00 :13 ONCE, 1 Medical (NS) 50 mL dose, On [facility] h MINI-BAG [place] 03/30/22 at 1745, Administer over 240 Minutes, 50 mL
Reas on for Anti-Infec tive: Documented Infection< br>Documen alex Infection Site: Wound<br&g t;Duration of Therapy: 7 days lisinopriL Yes 20mg 20 mg, Unive rs (PRINIVIL,Z 03-30 Oral, ity of ESTRIL) 15:00: DAILY, [place] tablet 20 00 First dose Medi shade mg (after Branch last modificati on) on 03/30/22 at 0900, Until Discontinu ed, Routine lisinopriL 2023-0 Yes 20mg 20 mg, Unive rs (PRINIVIL,Z 03-30 Oral, ity of ESTRIL) 15:00: DAILY, [place] tablet 20 00 First dose Medi shade mg (after Branch last modificati on) on 03/30/22 at 0900, Until Discontinu ed, Routine lisinopriL 2023-0 Yes 20mg 20 mg, Unive rs (PRINIVIL,Z 03-30 Oral, ity of ESTRIL) 15:00: DAILY, [place] tablet 20 00 First dose Medi shade mg (after Branch last modificati on) on 03/30/22 at 0900, Until Discontinu ed, Routine KCL 2022-2022- No 40meq 40 mEq, Univers (KLOR-CON 03-30 Oral, ity of M20) tablet 13:45: 14:25 ONCE, 1 [place] 40 mEq 00 :00 dose, On Medical [place] 03/30/22 Branch at 0745, Routine lisinopriL 2022-2022- No 10mg 10 mg, Univ ers (PRINIVIL,Z 03-30 Oral, ity of ESTRIL) 06:57: 07:21 ONCE, 1 [place] tablet 10 00 :00 dose, On Medica l mg [place] 03/30/22 Branch at 0100, Routine vancomycin 2021-03- No 1000mg 1,000 mg, Univers (VANCOCIN) 03-31 IV ity of 1,000 mg in 18:00: 05:27 Piggyback, [place] NaCl 0.9% 00 :42 Q12H ABX, Medic al (NS) 250 mL 7 doses, Bran ch VIAL-aerospace mechanic dose IV (after piggyback last modificati on) on 03/29/22 at 1200, Last dose on Thu04/01/22 at 1200, Administer over 60 Minutes, 250 mL
Reas on for Anti-Infec tive: Empiric Therapy for Suspected Infection< br>Empiric Therapy Site: Skin / Soft tissue
Duration of therapy: 5 days HYDROcodone 2021-03 Yes 1{tbl} 1 tablet, Univers -acetaminop Oral, ity of hen (NORCO) 15:43: Q6HPRN, [place] 10-325 mg 41 Starting Medica l tablet 1 on Sat Branch tablet 03/29/22 at 0943, Until Discontinu ed, Routine, Pain (scale 4-6) HYDROcodone 2021-03 No 1{tbl} 1 tablet, Univers -acetaminop 05 Oral, ity of hen (NORCO) 15:43: 03:19 Q6HPRN, [place] 10-325 mg 41 :48 Starting Medica l tablet 1 on Sat Branch tablet 03/29/22 at 0943, Until 04/02/22 at 2119, Routine, Pain (scale 4-6) morpHINE (4 2021-03 Yes 4mg 4 mg, Slow Univers mg/mL) IV Push, ity of injection 4 15:43: Q6HPRN, [place] mg 22 Starting Medical on Sat Branch 03/29/22 at 0943, Until Discontinu ed, Routine, Pain (scale 7-10) morpHINE (4 2021-03 Yes 4mg 4 mg, Slow Univers mg/mL) IV Push, ity of injection 4 15:43: Q6HPRN, [place] mg 22 Starting Medical on Sat Branch 03/29/22 at 0943, Until Discontinu ed, Routine, Pain (scale 7-10) morpHINE (4 2021-03 Yes 4mg 4 mg, Slow Univers mg/mL) IV Push, ity of injection 4 15:43: Q6HPRN, [place] mg 22 Starting Medical on Sat Branch 03/29/22 at 0943, Until Discontinu ed, Routine, Pain (scale 7-10) carvediloL 2021-03 12.5mg 12.5 mg, Univers (COREG) 03-29 Oral, ity of tablet 12.5 03:43: 03:51 ONCE, 1 [place] mg 00 :00 dose, On Medical Fri Branch 03/28/22 at 2145, Routine HYDROcodone 2021-03- No 1{tbl} 1 tablet, Univers -acetaminop 03-29 Oral, ity of hen (NORCO 01:15: 01:25 ONCE, 1 [place] 5) 5-325 mg 00 :00 dose, On Medi shade tablet 1 Thu tablet 03/28/22 at 1915, Routine, PACU FENTanyl PF 2021-03- No 25ug 25 mcg, Un davy (SUBLIMAZE 03-29 Slow IV ity o f (PF)) 01:12: 01:40 Push, [place] injection 01 :00 Q5MIN PRN, Medi shade 25 mcg 4 doses, Branch Starting on Thu03/28/22 at 1912, Until Thu03/28/22 at 1940, Routine, Pain (scale 4-6), PACU sugammadex 2021-03- No IV Push, Un davy (BRIDION) 03-29 ONCE INTRA ity of injection 00:57: 01:05 PROCEDURE, [place] 00 :38 Starting Medical on Thu Branch 03/28/22 at 1857, Until Thu03/28/22 at 1905, Routine, Intra-op ondansetron 2021-03- No Slow IV Un davy (ZOFRAN 03-29 Push, ONCE ity o f (PF)) 00:03: 01:05 INTRA [place] injection 00 :38 PROCEDURE, Medi shade Starting Branch on Thu03/28/22 at 1803, Until Discontinu ed, Routine, Intra-op PHENYLephri 2021-03- No Slow IV Un davy ne 1000 03-29 Push, ity of mcg/10 mL 23:46: 01:05 CONTINUOUS [place] in 0.9% 00 :38 PRN, Medical NaCl Starting Branch syringe on Thu03/28/22 at 1746, Until Discontinu ed, Routine, Intra-op ePHEDrine 2021-03- No Slow IV Univ ers 25 mg/5 mL 03-29 Push, ONCE it y of (5 mg/mL) 23:15: 01:05 INTRA [place] syringe 00 :38 PROCEDURE, Medica l Starting Branch on Thu03/28/22 at 1715, Until Discontinu ed, Routine, Intra-op ceFAZolin 2021-03- No Slow IV Univ ers (ANCEF) 03-29 Push, ONCE ity o f injection 23:09: 01:05 INTRA [place] 00 : PROCEDURE, Medical Starting Branch on Thu03/28/22 at 1709, Until Discontinu ed, CHARMAINE, Intra-op PHENYLephri 2021-03- No Slow IV Un davy ne 1000 03-29 Push, ONCE ity o f mcg/10 mL 23:01: 01:05 INTRA [place] in 0.9% 00 :38 PROCEDURE, Medica l NaCl Starting Branch syringe on Thu03/28/22 at 1701, Until Discontinu ed, Routine, Intra-op propofoL IV 2021-03- No Slow IV Un davy infusion 03-29 Push, ONCE ity of 22:49: 01:05 INTRA [place] 00 : PROCEDURE, Medical Starting Branch on Thu03/28/22 at 1649, Until Discontinu ed, Routine, Intra-op rocuronium 2021-03- No IV Push, Un davy (ZEMURON) 03-29 ONCE INTRA ity of injection 22:49: 01:05 PROCEDURE, [place] 00 :38 Starting Medical on Thu Branch 03/28/22 at 1649, Until Discontinu ed, Routine, Intra-op lidocaine 2021-03- No Slow IV Univ ers 1% 03-29 Push, ONCE ity of (XYLOCAINE) 22:49: 01:05 INTRA [place] 100 mg/10 00 : PROCEDURE, Medi shade mL (1 %) Starting Branch injection on Thu03/28/22 at 1649, Until Discontinu ed, Routine, Intra-op FENTanyl PF 2021-03- No Slow IV Un davy (SUBLIMAZE 03-29 Push, ONCE it y of (PF)) 22:49: 01:05 INTRA [place] injection 00 :38 PROCEDURE, Medi shade Starting Branch on Thu03/28/22 at 1649, Until Discontinu ed, Routine, Intra-op midazolam 2021-03- No IV Push, Uni vers (VERSED) 03-29 ONCE INTRA ity of injection 22:39: 01:05 PROCEDURE, [place] 00 :38 Starting Medical on Thu Branch 03/28/22 at 1639, Until Discontinu ed, Routine, Intra-op lactated 2021-03 IV Univers ringers IV 03-29 Infusion, ity of infusion 22:38: 01:05 CONTINUOUS [place] 00 :38 PRN, Medical Starting Branch on Thu03/28/22 at 1638, Until Discontinu ed, Routine, Intra-op bupivacaine 2021-03 Infiltrati Univers (preserv 03-29 on, ONCE ity of free) 21:26: 01:05 INTRA [place] (SENSORCAIN 00 :38 PROCEDURE, Me dical E MPF) 0.25 Starting Bran ch % (2.5 on Thu mg/mL) 03/28/22 injection at 1526, Until Discontinu ed, Routine, Intra-op cholecalcif 2021-03 Yes 1000U 1,000 Univ ers elis 2-30 Units, ity of (vitamin 15:00: Oral, [place] D3) tablet 00 DAILY, Medical 1,000 Units First dose Br anch on Thu03/28/22 at 0900, Until Discontinu ed, Routine sennosides- 2021-03 Yes 1{tbl} 1 tablet, Univers docusate 2-30 Oral, ity of sodium 15:00: DAILY, [place] (SENOKOT-S) 00 First dose Me dical 8.6-50 mg on Thu per tablet 03/28/22 1 tablet at 0900, Until Discontinu ed, Routine aspirin 2021-03 Yes 81mg 81 mg, Univers chewable 2-30 Oral, ity of tablet 81 15:00: DAILY, [place] mg 00 First dose Medical on Thu Branch 03/28/22 at 0900, Until Discontinu ed, Routine cholecalcif 2021-03 Yes 1000U 1,000 Univ ers elis 2-30 Units, ity of (vitamin 15:00: Oral, [place] D3) tablet 00 DAILY, Medical 1,000 Units First dose Br anch on Thu03/28/22 at 0900, Until Discontinu ed, Routine aspirin 2021-03 Yes 81mg 81 mg, Univers chewable 2-30 Oral, ity of tablet 81 15:00: DAILY, [place] mg 00 First dose Medical on Thu Branch 03/28/22 at 0900, Until Discontinu ed, Routine aspirin 2021-03 No 81mg 81 mg, Univers chewable 04-06 Oral, ity of tablet 81 15:00: 22:50 DAILY, [place] mg 00 :10 First dose Medical on Thu Branch 03/28/22 at 0900, Until Discontinu ed, Routine cholecalcif 2021-03 No 1000U 1,000 Uni vers elis 04-05 Units, ity of (vitamin 15:00: 23:39 Oral, [place] D3) tablet 00 :31 DAILY, Medical 1,000 Units First dose Br anch on Thu03/28/22 at 0900, Until Discontinu ed, Routine sennosides- 2021-03 No 1{tbl} 1 tablet, Univers docusate 04-01 Oral, ity of sodium 15:00: 16:13 DAILY, [place] (SENOKOT-S) 00 :38 First dose Me dical 8.6-50 mg on Thu Branch per tablet 03/28/22 1 tablet at 0900, Until Discontinu ed, Routine lisinopriL 2021-03 No 10mg 10 mg, Univ ers (PRINIVIL,Z 03-30 Oral, ity of ESTRIL) 15:00: 06:57 DAILY, [place] tablet 10 00 :30 First dose Medi shade mg on Thu Branch 03/28/22 at 0900, Until Discontinu ed, Routine carvediloL 2021-03 No 12.5mg 12.5 mg, Univers (COREG) 03-31 Oral, BID ity of tablet 12.5 14:00: 06:01 MEALS, [place] mg 00 :21 First dose Medical on Thu Branch 03/28/22 at 0800, Until Discontinu ed, Routine KCL 2021-03 No 40meq 40 mEq, Univers (KLOR-CON 03-28 Oral, ity of M20) tablet 11:44: 12:28 ONCE, 1 [place] 40 mEq 00 :00 dose, On Medical Fri Branch 03/28/22 at 0545, Routine ampicillin- 2021-03- No 3g 3 g, IV Un davy sulbactam 03-30 Piggyback, ity of (UNASYN) 3 06:00: 23:02 Q6H ABX, [place] g in NaCl 00 :06 20 doses, Medic al 0.9% (NS) First dose Bran ch 100 mL on Thu MINI-BAG 03/28/22 at 0000, Last dose on Thu04/01/22 at 1800, Administer over 30 Minutes, 100 mL
Reas on for Anti-Infec tive: Empiric Therapy for Suspected Infection< br>Empiric Therapy Site: Wound
D uration of therapy: 5 days Vancomycin 2021-03 No 750mg 750 mg, IV Univers 750 mg in 03-29 Piggyback, ity of NaCl 0.9% 06:00: 12:48 Q12H ABX, [place] (NS) 250 mL 00 :06 10 doses, Med ical VIAL-aerospace mechanic dose Bran ch (after last modificati on) on Thu03/28/22 at 0000, Last dose on Thu04/01/22 at 1200, Administer over 60 Minutes, 250 mL
Reas on for Anti-Infec tive: Empiric Therapy for Suspected Infection< br>Empiric Therapy Site: Skin / Soft tissue
Duration of therapy: 5 days heparin 2021-03 No 5000U 5,000 Univers (porcine) 2-30 01-02 Units, ity of injection 04:00: 05:58 Subcutaneo [place] 5,000 Units 00 :59 us, Q8H, [facility] First dose Branch on [facility] 03/27/22 at 2200, Until Discontinu ed, Routine atorvastati 2021-03 Yes 20mg 20 mg, Univ ers n (LIPITOR) 2-30 Oral, QHS, it y of tablet 20 03:00: First dose [place] mg 00 on [facility] 03/27/22 Branch at 2100, Until Discontinu ed, Routine atorvastati 2021-03 Yes 20mg 20 mg, Univ ers n (LIPITOR) 2-30 Oral, QHS, it y of tablet 20 03:00: First dose [place] mg 00 on [facility] 03/27/22 Branch at 2100, Until Discontinu ed, Routine atorvastati 2021-03 Yes 20mg 20 mg, Univ ers n (LIPITOR) 2-30 Oral, QHS, it y of tablet 20 03:00: First dose [place] mg 00 on [facility] Medical 03/27/22 Branch at 2100, Until Discontinu ed, Routine celecoxib 2021-03 Yes 100mg 100 mg, Univ ers (CELEBREX) Oral, BID ity of capsule 100 23:15: MEALS, [place] mg 00 First dose Medical on [place] Branch 03/27/22 at 1715, Until Discontinu ed, Routine celecoxib 2021-03 Yes 100mg 100 mg, Univ ers (CELEBREX) Oral, BID ity of capsule 100 23:15: MEALS, [place] mg 00 First dose Medical on [place] Branch 03/27/22 at 1715, Until Discontinu ed, Routine celecoxib 2021-03- No 100mg 100 mg, Uni vers (CELEBREX) 08 Oral, BID ity of capsule 100 23:15: 18:33 MEALS, [place] mg 00 :18 First dose Medical on [place] Branch 03/27/22 at 1715, Until Discontinu ed, Routine HYDROcodone 2021-03- No 1{tbl} 1 tablet, Univers -acetaminop 03-29 Oral, ity of hen (NORCO) 23:13: 15:43 Q6HPRN, [place] 10-325 mg 20 :52 Starting Medica l tablet 1 on [facility] Branch tablet 03/27/22 at 1713, Until 03/29/22 at 0943, Routine, Pain (scale 7-10), Pain (scale 4-6) Sliding 2021-03 Yes Subcutaneo [facility] ers Scale 2-29 us, TID ity of Insulin - 23:00: MEALS+HS, [place] Lispro 00 First dose Medical (HumaLOG) + on [facility] Branch Fsbg 03/27/22 Testing at 1700, Until Discontinu ed, Routine Sliding 2021-03 Yes Subcutaneo [facility] ers Scale 2-29 us, TID ity of Insulin - 23:00: MEALS+HS, [place] Lispro 00 First dose Medical (HumaLOG) + on [facility] Branch Fsbg 03/27/22 Testing at 1700, Until Discontinu ed, Routine Sliding 2021-03 Yes Subcutaneo [facility] ers Scale 2-29 us, TID ity of Insulin - 23:00: MEALS+HS, [place] Lispro 00 First dose Medical (HumaLOG) + on [place] Branch Fsbg 03/27/22 Testing at 1700, Until Discontinu ed, Routine dextrose 2021-03 Yes 250mL 250 mL, IV Un davy 10% (D10W) 2-29 Infusion, ity of bolus 22:54: PRN - SEE [place] infusion 13 INSTRUCTIO Medic al 250 mL NS, Branch Administer over 60 Minutes, Other, If blood glucose is < or = 70 mg/dL and patient is unable to swallow or has mental status changes, Starting on [place] 03/27/22 at 1654
If blood glucose is < or = [...] 250 mL, IV Un davy 10% (D10W) 2-29 Infusion, ity of bolus 22:54: PRN - SEE [place] infusion 13 INSTRUCTIO Medic al 250 mL NS, Branch Administer over 60 Minutes, Other, If blood glucose is < or = 70 mg/dL and patient is unable to swallow or has mental status changes, Starting on [place] 03/27/22 at 1654
If blood glucose is < or = [...] 250 mL, IV Un davy 10% (D10W) 2-29 Infusion, ity of bolus 22:54: PRN - SEE [place] infusion 13 INSTRUCTIO Medic al 250 mL NS, Branch Administer over 60 Minutes, Other, If blood glucose is < or = 70 mg/dL and patient is unable to swallow or has mental status changes, Starting on [place] 03/27/22 at 1654
If blood glucose is < or = [...] 2021-03 Yes 1mg 1 mg, Univers (GLUCAGEN 2-29 Intramuscu ity of DIAGNOSTIC 22:54: lar, PRN, [place] KIT) 09 Starting Medical injection 1 on [place] [facility] 03/27/22 at 1654, Until Discontinu ed, CHARMAINE, Blood Glucose < or = 70 mg/dL and patient is unable to swallow or has mental changes. glucagon 2021-03 Yes 1mg 1 mg, Univers (GLUCAGEN 2-29 Intramuscu ity of DIAGNOSTIC 22:54: [place], PRN, [place] KIT) 09 Starting Medical injection 1 on [facility] 03/27/22 at 1654, Until Discontinu ed, CHARMAINE, Blood Glucose < or = 70 mg/dL and patient is unable to swallow or has mental changes. glucagon 2021-03 Yes 1mg 1 mg, Univers (GLUCAGEN 2-29 Intramuscu ity of DIAGNOSTIC 22:54: lar, PRN, [place] KIT) 09 Starting Medical injection 1 on [facility] 03/27/22 at 1654, Until Discontinu ed, CHARMAINE, Blood Glucose < or = 70 mg/dL and patient is unable to swallow or has mental changes. acetaminoph 2021-03 Yes 650mg 650 mg, Un davy en 2- Oral, ity of (TYLENOL) 22:53: Q6HPRN, [place] tablet 650 40 Starting Medic al mg on [place] Branch 03/27/22 at 1653, Until Discontinu ed, Routine, Pain (scale 1-3) acetaminoph 2021-03 Yes 650mg 650 mg, Un davy en Oral, ity of (TYLENOL) 22:53: Q6HPRN, [place] tablet 650 40 Starting Medic al mg on [place] Branch 03/27/22 at 1653, Until Discontinu ed, Routine, Pain (scale 1-3) acetaminoph 2021-03 Yes 650mg 650 mg, Un davy en Oral, ity of (TYLENOL) 22:53: Q6HPRN, [place] tablet 650 40 Starting Medic al mg on [place] Branch 03/27/22 at 1653, Until Discontinu ed, Routine, Pain (scale 1-3) ondansetron 2021-03 Yes 4mg 4 mg, Slow Univers (ZOFRAN 2-29 IV Push, ity of (PF)) 22:53: Q6HPRN, [place] injection 4 21 Starting Medi shade mg on [place] Branch 03/27/22 at 1653, Until Discontinu ed, Routine, Nausea and Vomiting (N/V) ondansetron 2021-03 Yes 4mg 4 mg, Slow Univers (ZOFRAN 2-29 IV Push, ity of (PF)) 22:53: Q6HPRN, [place] injection 4 21 Starting Medi shade mg on [place] Branch 03/27/22 at 1653, Until Discontinu ed, Routine, Nausea and Vomiting (N/V) ondansetron 2021-03 Yes 4mg 4 mg, Slow Univers (ZOFRAN 2-29 IV Push, ity of (PF)) 22:53: Q6HPRN, [place] injection 4 21 Starting Medi shade mg on [place] Branch 03/27/22 at 1653, Until Discontinu ed, Routine, Nausea and Vomiting (N/V) vancomycin 2021-03 15mg/kg 1,000 mg Univers (VANCOCIN) 03-27 (rounded ity of 1,000 mg in 22:00: 23:15 from [place] NaCl 0.9% 00 :00 1,081.5 mg Medi shade (NS) 250 mL = 15 mg/kg Br anch VIAL-MATE ?72.1 kg), IV IV piggyback Piggyback, ONCE, 1 dose, On [place] 03/27/22 at 1600, Administer over 60 Minutes, 250 mL
Reas on for Anti-Infec tive: Empiric Therapy for Suspected Infection< br>Empiric Therapy Site: Skin / Soft tissue
Duration of therapy: 72 hours piperacilli 2021-03- No 3.375g 3.375 g, Univers n-tazobacta 03-27 IV ity of m (ZOSYN) 21:30: 22:58 Piggyback, [place] 3.375 g in 00 :00 ONCE, 1 Medica l NaCl 0.9% dose, On Branch (NS) 50 mL [place] MINI-BAG 03/27/22 at 1530, Administer over 30 Minutes, 50 mL
Reas on for Anti-Infec tive: Empiric Therapy for Suspected Infection< br>Empiric Therapy Site: Skin / Soft tissue
Duration of therapy: 72 hours morpHINE (4 2021-03 No 4mg 4 mg, Slow Univers mg/mL) 03-27 IV Push, ity of injection 4 21:00: 21:00 ONCE, 1 [place] mg 00 :00 dose, On Medical [place] Branch 03/27/22 at 1500, Routine TAKE 2021-03 No TABLET 2-16 TWICE A DAY 00:00: WITH FOOD 00 TAKE 2021-03 No TABLET 2-16 DAILY. 00:00: 00 TAKE 2021-03 No 2unit TABLET 2-16 TWICE 00:00: DAILY. 00 TAKE 2021-03 No TABLET AT 2-16 BEDTIME. 00:00: 00 TAKE 2021-03 No CAPSULE BY 2-16 MOUTH TWICE 00:00: DAILY 00 Dose 2021-03 No Unknown 2-16 00:00: 00 Dose 2021-03 No Unknown 2-16 00:00: 00 TAKE 2021-03 No CAPSULE BY 2-16 MOUTH TWICE 00:00: DAILY 00 Dose 2021-03 No Unknown 2-16 00:00: 00 TAKE 2021-03 No TABLET BY 2-16 MOUTH EVERY 00:00: 8 HOURS 00 NEEDED FOR PAIN (SCALE 4-6) TAKE 2021-03 No TABLET 2-16 TWICE A DAY 00:00: WITH FOOD 00 TAKE 1 2021-03 No TABLET 2-16 DAILY. 00:00: 00 TAKE 1 2021-03 No 2unit TABLET 2-16 TWICE 00:00: DAILY. 00 TAKE 1 2021-03 No TABLET AT 2-16 BEDTIME. 00:00: 00 TAKE 2021-03 No CAPSULE BY 2-16 MOUTH TWICE 00:00: DAILY 00 Dose 2021-03 No Unknown 2-16 00:00: 00 Dose 2021-03 No Unknown 2-16 00:00: 00 TAKE 1 2021-03 No CAPSULE BY 2-16 MOUTH TWICE 00:00: DAILY 00 Dose 2021-03 No Unknown 2-16 00:00: 00 TAKE 1 2021-03 No TABLET BY 2-16 MOUTH EVERY 00:00: 8 HOURS 00 NEEDED FOR PAIN (SCALE 4-6) lisinopriL 2021-03- Yes [id number] 40mg Take 1 Univers 40 mg 2-16 03-17 tablet by ity of tablet 00:00: 04:59 mouth [place] 00 :00 daily for Medical 90 days. [place] lisinopriL 2021-03- Yes [id number] 40mg Take 1 Univers 40 mg 2-16 03-17 tablet by ity of tablet 00:00: 04:59 mouth [place] 00 :00 daily for Medical 90 days. [place] lisinopriL 2021-03- Yes [id number] 40mg Take 1 Univers 40 mg 2-16 03-17 tablet by ity of tablet 00:00: 04:59 mouth [place] 00 :00 daily for Medical 90 days. [place] lisinopriL 2021-03- Yes [id number] 40mg Take 1 Univers 40 mg 2-16 03-17 tablet by ity of tablet 00:00: 04:59 mouth [place] 00 :00 daily for Medical 90 days. [place] lisinopriL 2021-03- Yes [id number] 40mg Take 1 Univers 40 mg 2-16 03-17 tablet by ity of tablet 00:00: 04:59 mouth [place] 00 :00 daily for Medical 90 days. [place] lisinopriL 2021-03- Yes [id number] 40mg Take 1 Univers 40 mg 2-16 03-17 tablet by ity of tablet 00:00: 04:59 mouth [place] 00 :00 daily for Medical 90 days. Branch lisinopriL 2021-03- Yes [id number] 40mg Take 1 Univers 40 mg 2-16 03-17 tablet by ity of tablet 00:00: 04:59 mouth [place] 00 :00 daily for Medical 90 days. Branch lisinopriL 2021-03- No [id number] 40mg Take 1 Univers 40 mg 2-16 01-09 tablet by ity of tablet 00:00: 00:00 mouth [place] 00 :00 daily for Medical [...] Until [place] 03/13/22 at 1306, Routine, Intra-op FENTanyl PF 2021-03- No Slow IV Un [...] on [place] 03/13/22 at 1011, Until [place] 12/15/22 at 1306, Routine, Intra-op lidocaine 2021-03- No Slow IV Univ ers 1% 05-14 Push, ONCE ity of (XYLOCAINE) 16:11: 19:06 INTRA [place] 100 mg/10 00 :38 PROCEDURE, Medi shade mL (1 %) Starting Branch injection on [place] 03/13/22 at 1011, Until [place] 03/13/22 at 1306, Routine, Intra-op propofoL IV 2021-03- No Slow IV Un davy infusion 05-14 Push, ONCE ity of 16:11: 19:06 INTRA [place] 00 :38 PROCEDURE, Medical Starting Branch on [place] 03/13/22 at 1011, Until [place] 03/13/22 at 1306, Routine, Intra-op lidocaine 2021-03- No Slow IV Univ ers 1% 05-14 Push, ONCE ity of (XYLOCAINE) 16:11: 19:06 INTRA [place] 100 mg/10 00 :38 PROCEDURE, Medi shade mL (1 %) Starting Branch injection on [place] 03/13/22 at 1011, Until [place] 03/13/22 at 1306, Routine, Intra-op midazolam 2021-03- No IV Push, Uni vers (VERSED) 05-14-17 ONCE INTRA ity of injection 16:08: 00:04 PROCEDURE, [place] 00 :29 Starting Medical on [place] Branch 03/13/22 at 1008, Until 03/14/22 at 1804, Routine, Intra-op midazolam 2021-03- No IV Push, Uni vers (VERSED) 05-14-17 ONCE INTRA ity of injection 16:08: 00:04 PROCEDURE, [place] 00 :29 Starting Medical on [place] Branch 03/13/22 at 1008, Until 03/14/22 at 1804, Routine, Intra-op lactated 2021-03- No IV Univers ringers IV 05-14 Infusion, ity of infusion 16:05: 19:06 CONTINUOUS [place] 00 :38 PRN, Medical Starting Branch on [place] 03/13/22 at 1005, Until [place] 03/13/22 at 1306, Routine, Intra-op lactated 2021-03- No IV Univers ringers IV 2-15 12-15 Infusion, ity of infusion 16:05: 19:06 CONTINUOUS [place] 00 :38 PRN, Medical Starting Branch on [place] 03/13/22 at 1005, Until [place] 03/13/22 at 1306, Routine, Intra-op dexamethaso 2021-03- No Infiltrati Univers ne 2-15 12-15 on, ONCE ity of (DECADRON 15:36: 19:06 INTRA [place] PHOSPHATE) 00 :38 PROCEDURE, Med ical injection Starting Branch on [place] 03/13/22 at 0936, Until Discontinu ed, Routine, Intra-op bupivacaine 2021-03- No Infiltrati Univers (preserv 2-15 12-15 on, ONCE ity of free) 15:36: 19:06 INTRA [place] (SENSORCAIN 00 :38 PROCEDURE, Me dical E MPF) 0.25 Starting Bran ch % (2.5 on [place] mg/mL) 03/13/22 injection at 0936, Until Discontinu ed, Routine, Intra-op dexamethaso 2021-03- No Infiltrati Univers ne 2-15 12-15 on, ONCE ity of (DECADRON 15:36: 19:06 INTRA [place] PHOSPHATE) 00 :38 PROCEDURE, Med ical injection Starting Branch on [place] 03/13/22 at 0936, Until Discontinu ed, Routine, Intra-op bupivacaine 2021-03- No Infiltrati Univers (preserv 2-15 12-15 on, ONCE ity of free) 15:36: 19:06 INTRA [place] (SENSORCAIN 00 :38 PROCEDURE, Me dical E MPF) 0.25 Starting Bran ch % (2.5 on [place] mg/mL) 03/13/22 injection at 0936, Until Discontinu ed, Routine, Intra-op carvediloL 2021-03- Yes [id number] 25mg Take 1 Univers 25 mg 2-15 03-16 tablet by ity of tablet 00:00: 04:59 mouth 2 [place] 00 :00 (two) Medical times Branch daily with meals for 90 days. carvediloL 2021-03- Yes [id number] 25mg Take 1 Univers 25 mg 2-15 03-16 tablet by ity of tablet 00:00: 04:59 mouth 2 [place] 00 :00 (two) Medical times Branch daily with meals for 90 days. carvediloL 2021-03- Yes [id number] 25mg Take 1 Univers 25 mg 2-15 03-16 tablet by ity of tablet 00:00: 04:59 mouth 2 [place] 00 :00 (two) Medical times Branch daily with meals for 90 days. carvediloL 2021-03- Yes [id number] 25mg Take 1 Univers 25 mg 2-15 03-16 tablet by ity of tablet 00:00: 04:59 mouth 2 [place] 00 :00 (two) Medical times Branch daily with meals for 90 days. carvediloL 2021-03- Yes [id number] 25mg Take 1 Univers 25 mg 2-15 -16 tablet by ity of tablet 00:00: 04:59 mouth 2 [place] 00 :00 (two) Medical times Branch daily with meals for 90 days. carvediloL 2021-03- Yes [id number] 25mg Take 1 Univers 25 mg 2-15 -16 tablet by ity of tablet 00:00: 04:59 mouth 2 [place] 00 :00 (two) Medical times Branch daily with meals for 90 days. carvediloL 2021-03- Yes [id number] 25mg Take 1 Univers 25 mg 2-15 -16 tablet by ity of tablet 00:00: 04:59 mouth 2 [place] 00 :00 (two) Medical times Branch daily with meals for 90 days. carvediloL 2021-03- No [id number] 25mg Take 1 Univers 25 mg 2-15 - tablet by ity of tablet 00:00: 00:00 mouth 2 [place] 00 :00 (two) Medical times Branch daily with meals for 90 days. cephALEXin 2021-03- Yes [id number] 500mg Take 1 Univers 500 mg 2-15 - [id number] capsule by ity of capsule 00:00: 05:59 mouth 4 [place] 00 :00 (four) Medical times Branch daily for 7 days. cephALEXin 2021-03- Yes [id number] 500mg Take 1 Univers 500 mg 2-15 - [id number] capsule by ity of capsule 00:00: 05:59 mouth 4 [place] 00 :00 (four) Medical times Branch daily for 7 days. cephALEXin 2021-03- Yes [id number] 500mg Take 1 Univers 500 mg 05-14 [id number] capsule by ity of capsule 00:00: 05:59 mouth 4 [place] 00 :00 (four) Medical times [place] daily for 7 days. carvediloL 2021-03 Yes [...] No 30mL 30 mL, Unive rs hydroxide 2- 12-11 Oral, ity of (MILK OF 15:30: 16:55 ONCE, 1 [place] MAGNESIA) 00 :00 dose, On Medica l [...] at 1999, Until Discontinu ed, Routine sennosides- 2021-03- No 1{tbl} 1 tablet, Univers docusate 2-11 12-16 Oral, BID, ity of sodium 02:00: 02:06 First dose [place] (SENOKOT-S) 00 :31 (after Medica l 8.6-50 mg last Branch per tablet modificati 1 tablet on) on 03/08/22 at 1999, Until Discontinu ed, Routine lisinopriL 2021-03 Yes 20mg 20 mg, Unive rs (PRINIVIL,Z 2-09 Oral, ity of ESTRIL) 15:00: DAILY, [place] tablet 20 00 First dose Medi shade mg on Fri Branch 03/07/22 at 0900, Until Discontinu ed, Routine lisinopriL 2021-03- No 20mg 20 mg, Univ ers (PRINIVIL,Z 2-09 12-13 Oral, ity of ESTRIL) 15:00: 13:15 DAILY, [place] tablet 20 00 :27 First dose Medi shade mg on Fri Branch 03/07/22 at 0900, Until Discontinu ed, Routine lidocaine 2021-03- No PRN, Univers 1% (PF) 05-08 Starting ity of (XYLOCAINE) 14:22: 16:33 on Fri [place] injection 00 :52 03/07/22 at Medi shade 0822, Branch Until Thu03/07/22 at 1033, Routine, Intra-op heparin 2021-03- No PRN, Univers 10,000 05-08-09 Starting ity of units in NS 14:12: 16:33 on Thu [place] 1000 mL for 00 :52 03/07/22 at Mo dical vascular 0812, Branch Intra-op iopamidol 2021-03 No PRN, Univers (ISOVUE 05-08 Starting ity of 370-500 mL) 14:12: 16:33 on Fri [place] injection 00 :52 03/07/22 at [facility] shade 0812, Branch Until Thu03/07/22 at 1033, Routine, Intra-op ceFAZolin 2021-03 No 1000mg 1,000 mg, Univers (ANCEF) 05-07 Intravenou ity o f 1,000 mg in 20:00: 19:59 s, Q8H [place] water for 00 :00 ABX, 15 Medical injection, doses, Branch sterile 10 First dose mL SIVP on [place] syringe 03/06/22 at 1400, Last dose on Thu03/11/22 at 0600, 10 mL
Reas on for [...] syringe 03/06/22 at 1400, Last dose on Thu03/11/22 at 0600, 10 mL
Reas on for [...] 2021-03 Yes 81mg 81 mg, Univers chewable 2-07 Oral, ity of tablet 81 15:00: DAILY, [place] mg 00 First dose Medical on [facility] 03/05/22 at 0900, Until Discontinu ed, Routine aspirin 2021-03 Yes 81mg 81 mg, Univers chewable 207 Oral, ity of tablet 81 15:00: DAILY, [place] mg 00 First dose Medical on Thu [place] 03/05/22 at 0900, Until Discontinu ed, Routine aspirin 2021-03 No 81mg 81 mg, Univers chewable 05-06 12-16 Oral, ity of tablet 81 15:00: 02:06 DAILY, [place] mg 00 :31 First dose Medical on [facility] 03/05/22 at 0900, Until Discontinu ed, Routine lisinopriL 2021-03 No 20mg 20 mg, Univ ers (PRINIVIL,Z 05-06- Oral, ity of ESTRIL) 15:00: 18:16 DAILY, [place] tablet 20 00 :42 First dose Medi shade mg on Thu [place] 03/05/22 at 0900, Until Discontinu ed, Routine carvediloL 2021-03 Yes 12.5mg 12.5 mg, U nivers (COREG) 2- Oral, BID ity of tablet 12.5 14:00: MEALS, [place] mg 00 First dose Medical on Thu [place] 03/05/22 at 0800, Until Discontinu ed, Routine carvediloL 2021-03 No 12.5mg 12.5 mg, Univers (COREG) 2- 12-14 Oral, BID ity of tablet 12.5 14:00: 13:39 MEALS, [place] mg 00 :59 First dose Medical on Thu [place] 03/05/22 at 0800, Until Discontinu ed, Routine HYDROcodone 2021-03 Yes 1{tbl} 1 tablet, Univers -acetaminop 05-06 Oral, ity of hen (NORCO 05:26: Q6HPRN, [place] 5) 5-325 mg 41 Starting Medi shade tablet 1 on [place] tablet 03/04/22 at 2326, Until Discontinu ed, Routine, Pain (scale 7-10) HYDROcodone 2021-03- No 1{tbl} 1 tablet, Univers -acetaminop 05-06-14 Oral, ity of hen (NORCO 05:26: 13:41 Q6HPRN, [place] 5) 5-325 mg 41 :39 Starting Medi shade tablet 1 on [facility] tablet 03/04/22 at 2326, Until 03/12/22 at 0741, Routine, Pain (scale 7-10) Sliding 2021-03 Yes Subcutaneo Univ ers Scale 2-07 us, AC+HS, ity of Insulin-Reg 03:00: First dose [place] ular + Fsbg 00 on [facility] Testing 03/04/22 at [place] 2100, Until Discontinu ed, Routine atorvastati 2021-03 Yes 20mg 20 mg, Univ ers n (LIPITOR) 2- Oral, QHS, it y of tablet 20 03:00: First dose [place] mg 00 on [facility] 03/04/22 at [place] 2100, Until Discontinu ed, Routine Sliding 2021-03 Yes Subcutaneo Univ ers Scale 2-07 us, AC+HS, ity of Insulin-Reg 03:00: First dose [place] ular + Fsbg 00 on [facility] Testing 03/04/22 at [place] 2100, Until Discontinu ed, Routine atorvastati 2021-03 Yes 20mg 20 mg, Univ ers n (LIPITOR) 2-07 Oral, QHS, it y of tablet 20 03:00: First dose [place] mg 00 on [facility] 03/04/22 at [place] 2100, Until Discontinu ed, Routine Sliding 2021-03- No Subcutaneo Uni vers Scale 2- 12-16 us, AC+HS, ity of Insulin-Reg 03:00: 02:06 First dose [place] ular + Fsbg 00 :31 on [facility] Testing 03/04/22 at [place] 2100, Until Discontinu ed, Routine atorvastati 2021-03- No 20mg 20 mg, Uni vers n (LIPITOR) 2- 12-16 Oral, QHS, i ty of tablet 20 03:00: 02:06 First dose [place] mg 00 :31 on [facility] 03/04/22 at [place] 2100, Until Discontinu ed, Routine polyethylen 2021-03 Yes 17g 17 g, Unive rs e glycol 2-07 Oral, BID, ity o f 3350 powder 02:00: First dose [place] 17 g 00 on [facility] 03/04/22 at [place] 1999, Until Discontinu ed, Routine heparin 2021-03 Yes 5000U 5,000 Univers (porcine) 2-07 Units, ity of injection 02:00: [place] 5,000 Units 00 us, Q12H, Med ical First dose Branch on [facility] 03/04/22 at 2000, Until Discontinu ed, Routine insulin 2021-03 Yes 7U 7 Units, Univer s glargine 2-07 Subcutaneo ity o f ([place] 02:00: us, BID, [place] U-100) 00 First dose Medical injection 7 on [facility] 03/04/22 at 2000, Until Discontinu ed, Routine polyethylen 2021-03 Yes 17g 17 g, Unive rs e glycol 2-07 Oral, BID, ity o f 3350 powder 02:00: First dose [place] 17 g 00 on [facility] 03/04/22 at [place] 1999, Until Discontinu ed, Routine heparin 2021-03 Yes 5000U 5,000 Univers (porcine) 2-07 Units, ity of injection 02:00: [place] 5,000 Units 00 us, Q12H, Med ical First dose Branch on [facility] 03/04/22 at 1999, Until Discontinu ed, Routine insulin 2021-03 Yes 7U 7 Units, Univer s glargine 2-07 Subcutaneo ity o f (LANTUS 02:00: us, BID, [place] U-100) 00 First dose Medical injection 7 on [facility] 03/04/22 at 2000, Until Discontinu ed, Routine polyethylen 2021-03- No 17g 17 g, Univ ers e glycol 2-07 12-16 Oral, BID, ity of 3350 powder 02:00: 02:06 First dose [place] 17 g 00 :31 on [facility] 03/04/22 at [place] 1999, Until Discontinu ed, Routine heparin 2021-03 No 5000U 5,000 Univers (porcine) 05-0616 Units, ity of injection 02:00: 02:06 [place]cut[place] 5,000 Units 00 :31 us, Q12H, Med ical First dose Branch on 03/04/22 at 2000, Until Discontinu ed, Routine insulin 2021-03 No 7U 7 Units, Unive rs glargine 05-0616 Subcutaneo ity of (LANTUS 02:00: 02:06 us, BID, [place] U-100) 00 :31 First dose Medical injection 7 on Tue Branch Units 03/04/22 at 2000, Until Discontinu ed, Routine sennosides- 2021-03 No 1{tbl} 1 tablet, Univers docusate 05-06 12-10 Oral, ity of sodium 00:15: 14:08 DAILY, [place] (SENOKOT-S) 00 :04 First dose Me dical 8.6-50 mg on Thu Branch per tablet 03/04/22 at 1 tablet 1815, Until Discontinu ed, Routine acetaminoph 2021-03 Yes 650mg 650 mg, Un davy en 2-06 Oral, ity of (TYLENOL) 23:57: Q6HPRN, [place] tablet 650 06 Starting Medic al mg on Tue Branch 03/04/22 at 1757, Until Discontinu ed, Routine, Pain (scale 1-3) acetaminoph 2021-03 Yes 650mg 650 mg, Un davy en 2-06 Oral, ity of (TYLENOL) 23:57: Q6HPRN, [place] tablet 650 06 Starting Medic al mg on Tue Branch 03/04/22 at 1757, Until Discontinu ed, Routine, Pain (scale 1-3) acetaminoph 2021-03 No 650mg 650 mg, U nivers en 2-06 16 Oral, ity of (TYLENOL) 23:57: 02:06 Q6HPRN, [facility] tablet 650 06 :31 Starting Medic al mg on Tue Branch 03/04/22 at 1757, Until [place] 03/13/22 at 2006, Routine, Pain (scale 1-3) dextrose 2021-03 Yes 250mL 250 mL, IV Un davy 10% (D10W) 2-06 Infusion, ity of bolus 23:54: PRN - SEE [place] infusion 50 INSTRUCTIO Medic al 250 mL [...] ity of bolus 23:54: PRN - SEE [place] infusion 50 INSTRUCTIO Medic al 250 mL [...] is < 80 mg/dL, repeat.
dextrose 2021-03 No 250mL 250 mL, IV U nivers 10% (D10W) 2-06 12-16 Infusion, ity of bolus 23:54: 02:06 PRN - SEE [place] infusion 50 :31 INSTRUCTIO Medic al 250 mL NS, Branch Administer over 60 Minutes, Other, If blood glucose is < or = 70 mg/dL and patient is unable to swallow or has mental status changes, Starting on 03/04/22 at 1754
If blood glucose is < [...] 2021-03 Yes 1mg 1 mg, Univers (GLUCAGEN 206 Intramuscu ity of DIAGNOSTIC 23:54: lar, PRN, [place] KIT) 48 Starting Medical injection 1 on [facility] Branch mg 03/04/22 at 1754, Until Discontinu ed, CHARMAINE, Blood Glucose < or = 70 mg/dL and patient is unable to swallow or has mental changes. glucagon 2021-03 Yes 1mg 1 mg, Univers (GLUCAGEN 2-06 Intramuscu ity of DIAGNOSTIC 23:54: lar, PRN, [place] KIT) 48 Starting Medical injection 1 on [facility] Branch mg 03/04/22 at 1754, Until Discontinu ed, CHARMAINE, Blood Glucose < or = 70 mg/dL and patient is unable to swallow or has mental changes. glucagon 2021-03- No 1mg 1 mg, Univers (GLUCAGEN 05-05 Intramuscu ity of DIAGNOSTIC 23:54: 02:06 lar, PRN, [place] KIT) 48 :31 Starting Medical injection 1 on [facility] Branch mg 03/04/22 at 1754, Until [place] 03/13/22 at 2006, CHARMAINE, Blood Glucose < or = 70 mg/dL and patient is unable to swallow or has mental changes. cephALEXin 2021-03- No [id number] 500mg Take 1 [facility] 500 mg 04-14 capsule by ity of capsule 00:00: 05:59 mouth 4 [place] 00 :00 (four) Medical times [place] daily for 14 days. cephALEXin 2021-03 No [id number] 500mg Take 1 [facility] 500 mg 04-14 capsule by ity of capsule 00:00: 05:59 mouth 4 [place] 00 :00 (four) Medical times Branch daily for 14 days. cephALEXin 2021-03- No [id number] 500mg Take 1 [facility] 500 mg 04-14 capsule by ity of capsule 00:00: 05:59 mouth 4 [place] 00 :00 (four) Medical times Branch daily for 14 days. cephALEXin 2021-03- No [id number] 500mg Take 1 [facility] 500 mg 04-14 capsule by ity of capsule 00:00: 05:59 mouth 4 [place] 00 :00 (four) Medical times Branch daily for 14 days. cephALEXin 2021-03- No [id number] 500mg Take 1 [facility] 500 mg 04-14 capsule by ity of capsule 00:00: 05:59 mouth 4 [place] 00 :00 (four) Medical times Branch daily for 14 days. cephALEXin 2021-03- No [id number] 500mg Take 1 [facility] 500 mg 04-14 capsule by ity of capsule 00:00: 05:59 mouth 4 [place] 00 :00 (four) Medical times Branch daily for 14 days. cephALEXin 2021-03 No 500mg 500 mg, Un davy (KEFLEX) 1-10 11-10 Oral, ity of capsule 500 05:15: 04:20 ONCE, 1 [place] mg 00 :00 dose, On Thu Branch 02/05/22 at 2315, CHARMAINE
Re ason [...] (pain). Indication s: acute pain traMADoL 50 2021-03- No [id number] 50mg Take 1 Uni vers mg tablet -11 28-09 tablet by ity of 00:00: 00:00 mouth [place] 00 :00 every 6 Medical (six) Branch hours as needed (pain). Indication s: acute pain cephALEXin 2021-03- No [id number] 500mg Take 1 [facility] 500 mg 04-07-20 capsule by ity of capsule 00:00: 05:59 mouth 4 [place] 00 :00 (four) Medical times Branch daily for 10 days. cephALEXin 2021-03- No [id number] 500mg Take 1 [facility] 500 mg 04-07 capsule by ity of capsule 00:00: 00:00 mouth 4 [place] 00 :00 (four) Medical times Branch daily for 10 days. cephALEXin 2021-03- No [id number] 500mg Take 1 [facility] 500 mg 04-07 capsule by ity of capsule 00:00: 00:00 mouth 4 [place] 00 :00 (four) Medical times Branch daily for 10 days. cephALEXin 2021-03- No [id number] 500mg Take 1 [facility] 500 mg 04-07 capsule by ity of capsule 00:00: 00:00 mouth 4 [place] 00 :00 ([facility]) Medical times Branch daily for 10 days. cephALEXin 2021-03- No [id number] 500mg Take 1 [facility] 500 mg 04-07 capsule by ity of capsule 00:00: 00:00 mouth 4 [place] 00 :00 ([facility]) Medical times Branch daily for 10 days. cephALEXin 2021-03- No [id number] 500mg Take 1 [facility] 500 mg 04-07 capsule by ity of capsule 00:00: 00:00 mouth 4 [place] 00 :00 (four) Medical times Branch daily for 10 days. cephALEXin 2021-03 Yes [id number] 500mg Take 1 Univers (KEFLEX) 0-18 [id number] capsule by ity of 500 mg 00:00: mouth 2 [place] capsule 00 (two) Medical times Branch daily. ibuprofen 2021-03 Yes [id number] 800mg Take 1 [facility] 800 mg 0-18 [id number] tablet by ity of tablet 00:00: mouth [place] 00 every 8 Medical (eight) Branch hours as needed for Pain (scale 4-6). cephALEXin 2021-03 Yes [id number] 500mg Take 1 Univers (KEFLEX) 0-18 [id number] capsule by ity of 500 mg 00:00: mouth 2 [place] capsule 00 (two) Medical times Branch daily. ibuprofen 2021-03 Yes [id number] 800mg Take 1 Univers 800 mg 0-18 [id number] tablet by ity of tablet 00:00: mouth [place] 00 every 8 Medical (eight) Branch hours as needed for Pain (scale 4-6). ibuprofen 2021-03 Yes [id number] 800mg Take 1 [facility] 800 mg 0-18 [id number] tablet by ity of tablet 00:00: mouth [place] 00 every 8 Medical (eight) Branch hours as needed for Pain (scale 4-6). ibuprofen 2021-03 Yes [id number] 800mg Take 1 Univers 800 mg 0-18 [id number] tablet by ity of tablet 00:00: mouth [place] 00 every 8 Medical (eight) Branch hours as needed for Pain (scale 4-6). ibuprofen 2021-03 Yes [id number] 800mg Take 1 [facility] 800 mg 0-18 [id number] tablet by ity of tablet 00:00: mouth [place] 00 every 8 Medical (eight) Branch hours as needed for Pain (scale 4-6). ibuprofen 2021-03 Yes [id number] 800mg Take 1 [facility] 800 mg 0-18 [id number] tablet by ity of tablet 00:00: mouth [place] 00 every 8 Medical (eight) Branch hours as needed for Pain (scale 4-6). ibuprofen 2021-03 Yes [id number] 800mg Take 1 [facility] 800 mg 0-18 [id number] tablet by ity of tablet 00:00: mouth [place] 00 every 8 Medical (eight) Branch hours as needed for Pain (scale 4-6). ibuprofen 2021-03 Yes [id number] 800mg Take 1 [facility] 800 mg 0-18 [id number] tablet by ity of tablet 00:00: mouth [place] 00 every 8 Medical (eight) Branch hours as needed for Pain (scale 4-6). ibuprofen 2021-03 Yes [id number] 800mg Take 1 [facility] 800 mg 0-18 [id number] tablet by ity of tablet 00:00: mouth [place] 00 every 8 Medical (eight) Branch hours as needed for Pain (scale 4-6). ibuprofen 2021-03 Yes [id number] 800mg Take 1 [facility] 800 mg 0-18 [id number] tablet by ity of tablet 00:00: mouth [place] 00 every 8 Medical (eight) Branch hours as needed for Pain (scale 4-6). ibuprofen 2021-03 Yes [id number] 800mg Take 1 [facility] 800 mg 0-18 [id number] tablet by ity of tablet 00:00: mouth [place] 00 every 8 Medical (eight) Branch hours as needed for Pain (scale 4-6). ibuprofen 2022-1 Yes [id number] 800mg Take 1 [facility] 800 mg 0-18 [id number] tablet by ity of tablet 00:00: mouth [place] 00 every 8 Medical (eight) Branch hours as needed for Pain (scale 4-6). ibuprofen 2021-03 Yes [id number] 800mg Take 1 [facility] 800 mg 0-18 [id number] tablet by ity of tablet 00:00: mouth [place] 00 every 8 Medical (eight) Branch hours as needed for Pain (scale 4-6). ibuprofen 2021-03 Yes [id number] 800mg Take 1 [facility] 800 mg 0-18 [id number] tablet by ity of tablet 00:00: mouth [place] 00 every 8 Medical (eight) Branch hours as needed for Pain (scale 4-6). ibuprofen 2021-03 Yes [id number] 800mg Take 1 [facility] 800 mg 0-18 [id number] tablet by ity of tablet 00:00: mouth [place] 00 every 8 Medical (eight) Branch hours as needed for Pain (scale 4-6). ibuprofen 2021-03- No [id number] 800mg Take 1 [facility] 800 mg 0-18 12-29 [id number] tablet by ity o f tablet 00:00: 00:00 mouth [place] 00 :00 every 8 Medical (eight) Branch hours as needed for Pain (scale 4-6). ibuprofen 2021-03- No [id number] 800mg Take 1 Univers 800 mg 0-18 12-29 [id number] tablet by ity o f tablet 00:00: 00:00 mouth [place] 00 :00 every 8 Medical (eight) Branch hours as needed for Pain (scale 4-6). ibuprofen 2021-03- No [id number] 800mg Take 1 [facility] 800 mg 0-18 12-29 [id number] tablet by ity o f tablet 00:00: 00:00 mouth [place] 00 :00 every 8 Medical (eight) Branch hours as needed for Pain (scale 4-6). ibuprofen 2021-03- No [id number] 800mg Take 1 [facility] 800 mg 0-18 12-29 [id number] tablet by ity o f tablet 00:00: 00:00 mouth [place] 00 :00 every 8 Medical (eight) Branch hours as needed for Pain (scale 4-6). cephALEXin 2021-03- No [id number] 500mg Take 1 Univers (KEFLEX) 0-18 11-16 [id number] capsule by it y of 500 mg 00:00: 00:00 mouth 2 [place] capsule 00 :00 (two) Medical times Branch daily. cephALEXin 2021-03- No [id number] 500mg Take 1 Univers (KEFLEX) 002-12 [id number] capsule by it y of 500 mg 00:00: 00:00 mouth 2 [place] capsule 00 :00 (two) Medical times Branch daily. cephALEXin 2021-03- No [id number] 500mg Take 1 Univers (KEFLEX) 002-12 [id number] capsule by it y of 500 mg 00:00: 00:00 mouth 2 [place] capsule 00 :00 (two) Medical times Branch daily. cephALEXin 2021-03- No [id number] 500mg Take 1 Univers (KEFLEX) 02-12 [id number] capsule by it y of 500 mg 00:00: 00:00 mouth 2 [place] capsule 00 :00 (two) Medical times Branch daily. cephALEXin 2021-03- No [id number] 500mg Take 1 Univers (KEFLEX) 02-12 [id number] capsule by it y of 500 mg [...] approved by: ED PROVIDER doxycycline 2021-0 Yes [id number] 100mg Take 1 [facility] hyclate 100 -28 capsule by it y of mg capsule 00:00: mouth [place] 00 (two) Medical times Branch daily. doxycycline 2021-0 Yes [id number] 100mg Take 1 [facility] hyclate 100 -28 capsule by it y of mg capsule 00:00: mouth [place] 00 (two) Medical times Branch daily. doxycycline 2022-0 Yes [id number] 100mg Take 1 [facility] hyclate 100 9-28 capsule by it y of mg capsule 00:00: mouth [place] 00 (two) Medical times Branch daily. doxycycline 2022-0 Yes [id number] 100mg Take 1 [facility] hyclate 100 9-28 capsule by it y of mg capsule 00:00: mouth [place] 00 (two) Medical times Branch daily. doxycycline 2022-0 Yes [id number] 100mg Take 1 [facility] hyclate 100 9-28 capsule by it y of mg capsule 00:00: mouth [place] 00 (two) Medical times Branch daily. doxycycline 2022-0 Yes [id number] 100mg Take 1 [facility] hyclate 100 9-28 capsule by it y of mg capsule 00:00: mouth [place] 00 (two) Medical times Branch daily. doxycycline 2-0 Yes [id number] 100mg Take 1 [facility] hyclate 100 9-28 capsule by it y of mg capsule 00:00: mouth [place] 00 (two) Medical times Branch daily. doxycycline 2-0 Yes [id number] 100mg Take 1 [facility] hyclate 100 9-28 capsule by it y of mg capsule 00:00: mouth 2 [place] 00 (two) Medical times Branch daily. doxycycline 2-0 Yes [id number] 100mg Take 1 [facility] hyclate 100 9-28 capsule by it y of mg capsule 00:00: mouth 2 [place] 00 (two) Medical times Branch daily. doxycycline 2-0 Yes [id number] 100mg Take 1 [facility] hyclate 100 9-28 capsule by it y of mg capsule 00:00: mouth [place] 00 (two) Medical times Branch daily. doxycycline 2022-0 Yes [id number] 100mg Take 1 [facility] hyclate 100 9-28 capsule by it y of mg capsule 00:00: mouth [place] 00 (two) Medical times Branch daily. doxycycline 2022-0 Yes [id number] 100mg Take 1 [facility] hyclate 100 9-28 capsule by it y of mg capsule 00:00: mouth [place] 00 (two) Medical times Branch daily. doxycycline 2022-0 2022- No [id number] 100mg Take 1 [facility] hyclate 100 9-28 12-15 capsule by i ty of mg capsule 00:00: 00:00 mouth 2 [place] 00 :00 (two) Medical times Branch daily. doxycycline 2022-0 2022- No [id number] 100mg Take 1 [facility] hyclate 100 9-28 12-15 capsule by i ty of mg capsule 00:00: 00:00 mouth 2 [place] 00 :00 (two) Medical times Branch daily. doxycycline 2022-0 2022- No [id number] 100mg Take 1 [facility] hyclate 100 9-28 12-15 capsule by i ty of mg capsule 00:00: 00:00 mouth 2 [place] 00 :00 (two) Medical times Branch daily. doxycycline 2022-0 2022- No [id number] 100mg Take 1 [facility] hyclate 100 9-28 12-15 capsule by i ty of mg capsule 00:00: 00:00 mouth 2 [place] 00 :00 (two) Medical times Branch daily. TAKE 1 2022-0 No TABLET ONCE 8-11 DAILY. 00:00: 00 TAKE 1 2022-0 No TABLET ONCE 8-11 DAILY. 00:00: 00 TAKE 1 2022-0 No TABLET ONCE 8-11 [...] e 45 mg 3-08 tablet 00:00: 00 Dose 2022-0 No 100 Unknown 3-08 00:00: 00 Dose 2022-0 No Unknown 3-08 00:00: 00 glimepiride 2-0 No 1mg 4 mg tablet 3-08 00:00: 00 Dose 2022-0 No Unknown 3-08 00:00: 00 Dose 2022-0 No 500 Unknown 3-08 00:00: 00 Dose 2022-0 No Unknown 3-08 00:00: 00 Dose 2022-0 No 100 Unknown 3-08 00:00: 00 Dose 2022-0 No Unknown 3-08 00:00: 00 Dose 2022-0 No Unknown 3-08 00:00: 00 Dose 2022-0 No Unknown 3-08 00:00: 00 Dose 2022-0 No Unknown 3-08 00:00: 00 Dose 2022-0 No Unknown 3-08 00:00: 00 Dose 2022-0 No Unknown 3-08 00:00: 00 carvedilol 2-0 No 1mg 12.5 mg 3-08 tablet 00:00: 00 Dose 2022-0 [...] Dose 2022-0 No Unknown 3-08 00:00: 00 metformin 2022-0 No 2mg ER 500 mg 3-08 tablet,exte 00:00: nded 00 release 24 hr Dose 2022-0 No Unknown 3-08 00:00: 00 [...] Dose 2022-0 No Unknown 3-08 00:00: 00 atorvastati 2022-0 No 1mg n 20 mg [...] Dose 2022-0 No Unknown 3-08 00:00: 00 Levemir 2022-0 No 20unit/ U-100 3-08 mL Insulin 100 00:00: unit/mL 00 subcutaneou s solution Dose 2-0 No Unknown 3-08 00:00: 00 Dose 2022-0 [...] Unknown 3-08 00:00: 00 Dose 2022-0 No 100 Unknown 3-08 00:00: 00 Dose 2022-0 No Unknown 3-08 00:00: 00 Dose 2022-0 No Unknown 3-08 00:00: 00 Dose 2022-0 No Unknown 3-08 00:00: 00 Dose 2022-0 No 500 Unknown 3-08 00:00: 00 Dose 2022-0 No Unknown 3-08 00:00: 00 Dose 2022-0 No 100 Unknown 3-08 00:00: 00 Dose 2022-0 No [...] 20 mg 4-06 tablet 00:00: 00 amlodipine 2021-0 No 1mg 10 mg 4-06 tablet 00:00: 00 carvedilol 2021-0 No 1mg 12.5 mg 4-06 tablet 00:00: 00 glimepiride 2021-0 No 1mg 4 mg tablet 4-06 00:00: 00 metformin 2021-0 No 2mg ER 500 mg 4-06 tablet,exte 00:00: nded 00 release 24 hr atorvastati 2021-0 No 1mg n 20 mg 4-06 tablet 00:00: 00 amlodipine 2021-0 No 1mg 10 mg 4-06 tablet 00:00: 00 carvedilol 2021-0 No 1mg 12.5 mg 4-06 tablet 00:00: 00 glimepiride 1-0 No 1mg 4 mg tablet 4-06 00:00: 00 metformin 1-0 No 2mg ER 500 mg 4-06 tablet,exte 00:00: nded 00 release 24 hr atorvastati 1-0 No 1mg n 20 mg 4-06 tablet 00:00: 00 amlodipine 2019-1 No 1mg [...] glimepiride 2020-0 No 1mg 4 mg tablet 12-26 00:00: 00 glimepiride 2020-0 No 1mg 4 mg tablet 12-26 00:00: 00 glimepiride 2020-0 No 1mg 4 mg tablet 12-26 00:00: 00 glimepiride 2020-0 No 1mg 4 mg tablet 12-26 00:00: 00 ibuprofen 2020-0 No 2mg 200 [...] 1mg 10 mg 9-25 tablet 00:00: 00 carvedilol 2020-0 No 1mg 12.5 mg 9-25 tablet 00:00: 00 metformin 2020-0 No 1mg 1,000 mg 9-25 tablet 00:00: 00 atorvastati 2020-0 No 1mg n 20 mg 9-25 tablet 00:00: 00 Dose 2020-0 No 2 Unknown 9-25 00:00: 00 Dose 2020-0 No 2 Unknown 9-25 00:00: 00 Dose 2020-0 No 2 Unknown 12-22 00:00: 00 Dose 2020-0 No Unknown 12-22 00:00: 00 Dose 2020-0 No 2 Unknown 12-22 00:00: 00 amlodipine 2020-0 No 1mg 10 mg 9-25 tablet 00:00: 00 amlodipine 2020-0 No 1mg 10 mg 9-25 tablet 00:00: 00 carvedilol 2020-0 No 1mg 12.5 mg 9-25 tablet 00:00: 00 metformin 2020-0 No 1mg 1,000 mg 9-25 tablet 00:00: 00 atorvastati 2020-0 No 1mg n 20 mg 9-25 tablet 00:00: 00 amoxicillin 2020-0 No 1mg 875 9-25 mg-potassiu 00:00: m 00 clavulanate 125 mg tablet Dose 2020-0 No 2 Unknown 12-22 00:00: 00 Dose 2020-0 No 2 Unknown 12-22 00:00: 00 Dose 2020-0 No 2 Unknown 12-22 00:00: 00 Dose 2020-0 No Unknown 12-22 00:00: 00 Dose 2020-0 No 2 Unknown 12-22 00:00: 00 carvedilol 2020-0 No 1mg 12.5 mg 9-25 tablet 00:00: 00 metformin 2020-0 No 1mg 1,000 mg 9-25 tablet 00:00: 00 atorvastati 2020-0 No 1mg n 20 mg 9-25 tablet 00:00: 00 hydrocodone 2020-0 No 1mg 5 9-25 mg-acetamin 00:00: ophen 325 00 mg tablet insulin 2019- Yes [id number] 10U inject 10 [facility] glargine 9-22 Units ity of 100 unit/mL 00:00: under the [place] injection 00 skin 2 Medical (two) Branch times daily. empaglifloz Yes [id number] 1{tbl} Take 1 [facility] in 9-22 tablet by ity of (JARDIANCE) 00:00: mouth [place] 10 mg Tab 00 daily. Medical Branch insulin Yes [id number] 10U inject 10 [facility] glargine 9-22 Units ity of 100 unit/mL 00:00: under the [place] injection 00 skin 2 Medical (two) Branch times daily. empaglifloz 2019-0 Yes [id number] 1{tbl} Take 1 [facility] in 9-22 tablet by ity of (JARDIANCE) 00:00: mouth [place] 10 mg Tab 00 daily. Medical Branch insulin 2020-0 Yes [id number] 10U inject 10 [facility] glargine 9-22 Units ity of 100 unit/mL 00:00: under the [place] injection 00 skin 2 Medical (two) Branch times daily. empaglifloz 2020-0 Yes [id number] 1{tbl} Take 1 [facility] in 9-22 tablet by ity of (JARDIANCE) 00:00: mouth [place] 10 mg Tab 00 daily. Medical Branch insulin 2020-0 Yes [id number] 10U inject 10 [facility] glargine 9-22 Units ity of 100 unit/mL 00:00: under the [place] injection 00 skin 2 Medical (two) Branch times daily. empaglifloz 2020-0 Yes [id number] 1{tbl} Take 1 [facility] in 9-22 tablet by ity of (JARDIANCE) 00:00: mouth [place] 10 mg Tab 00 daily. Medical Branch insulin 2020-0 Yes [id number] 10U inject 10 [facility] glargine 9-22 Units ity of 100 unit/mL 00:00: under the [place] injection 00 skin 2 Medical (two) Branch times daily. empaglifloz 2020-0 Yes [id number] 1{tbl} Take 1 [facility] in 9-22 tablet by ity of (JARDIANCE) 00:00: mouth [place] 10 mg Tab 00 daily. Medical Branch insulin 2020-0 Yes [id number] 10U inject 10 [facility] glargine 9-22 Units ity of 100 unit/mL 00:00: under the [place] injection 00 skin 2 Medical (two) Branch times daily. empaglifloz 2020-0 Yes [id number] 1{tbl} Take 1 [facility] in 9-22 tablet by ity of (JARDIANCE) 00:00: mouth [place] 10 mg Tab 00 daily. Medical Branch insulin 2020-0 Yes [id number] 10U inject 10 [facility] glargine 9-22 Units ity of 100 unit/mL 00:00: under the [place] injection 00 skin 2 Medical (two) Branch times daily. empaglifloz 2020-0 Yes [id number] 1{tbl} Take 1 [facility] in 9-22 tablet by ity of (JARDIANCE) 00:00: mouth [place] 10 mg Tab 00 daily. Medical Branch insulin 2020-0 Yes [id number] 10U inject 10 [facility] glargine 9-22 Units ity of 100 unit/mL 00:00: under the [place] injection 00 skin 2 Medical (two) Branch times daily. empaglifloz 2020-0 Yes [id number] 1{tbl} Take 1 [facility] in 9-22 tablet by ity of (JARDIANCE) 00:00: mouth [place] 10 mg Tab 00 daily. Medical Branch insulin 2020-0 Yes [id number] 10U inject 10 [facility] glargine 9-22 Units ity of 100 unit/mL 00:00: under the [place] injection 00 skin 2 Medical (two) Branch times daily. empaglifloz 2020-0 Yes [id number] 1{tbl} Take 1 [facility] in 9-22 tablet by ity of (JARDIANCE) 00:00: mouth [place] 10 mg Tab 00 daily. Medical Branch insulin 2020-0 Yes [id number] 10U inject 10 [facility] glargine 9-22 Units ity of 100 unit/mL 00:00: under the [place] injection 00 skin 2 Medical (two) Branch times daily. empaglifloz 2020-0 Yes [id number] 1{tbl} Take 1 [facility] in 9-22 tablet by ity of (JARDIANCE) 00:00: mouth [place] 10 mg Tab 00 daily. Medical Branch insulin 2020-0 Yes [id number] 10U inject 10 [facility] glargine 9-22 Units ity of 100 unit/mL 00:00: under the [place] injection 00 skin 2 Medical (two) Branch times daily. empaglifloz 2020-0 Yes [id number] 1{tbl} Take 1 [facility] in 9-22 tablet by ity of (JARDIANCE) 00:00: mouth [place] 10 mg Tab 00 daily. Medical Branch insulin 2020-0 Yes [id number] 10U inject 10 [facility] glargine 9-22 Units ity of 100 unit/mL 00:00: under the [place] injection 00 skin 2 Medical (two) Branch times daily. empaglifloz 2020-0 Yes [id number] 1{tbl} Take 1 [facility] in 9-22 tablet by ity of (JARDIANCE) 00:00: mouth [place] 10 mg Tab 00 daily. Medical Branch insulin 2020-0 Yes [id number] 10U inject 10 [facility] glargine 9-22 Units ity of 100 unit/mL 00:00: under the [place] injection 00 skin 2 Medical (two) Branch times daily. empaglifloz 2020-0 Yes [id number] 1{tbl} Take 1 [facility] in 9-22 tablet by ity of (JARDIANCE) 00:00: mouth [place] 10 mg Tab 00 daily. Medical Branch insulin 2020-0 Yes [id number] 10U inject 10 [facility] glargine 9-22 Units ity of 100 unit/mL 00:00: under the [place] injection 00 skin 2 Medical (two) Branch times daily. empaglifloz 2020-0 Yes [id number] 1{tbl} Take 1 [facility] in 9-22 tablet by ity of (JARDIANCE) 00:00: mouth [place] 10 mg Tab 00 daily. Medical Branch insulin 2020-0 Yes [id number] 10U inject 10 [facility] glargine 9-22 Units ity of 100 unit/mL 00:00: under the [place] injection 00 skin 2 Medical (two) Branch times daily. empaglifloz 2020-0 Yes [id number] 1{tbl} Take 1 [facility] in 9-22 tablet by ity of (JARDIANCE) 00:00: mouth [place] 10 mg Tab 00 daily. Medical Branch insulin 2020-0 Yes [id number] 10U inject 10 [facility] glargine 9-22 Units ity of 100 unit/mL 00:00: under the [place] injection 00 skin 2 Medical (two) Branch times daily. empaglifloz 2020-0 Yes [id number] 1{tbl} Take 1 [facility] in 9-22 tablet by ity of (JARDIANCE) 00:00: mouth [place] 10 mg Tab 00 daily. Medical Branch insulin 2020-0 Yes [id number] 10U inject 10 [facility] glargine 9-22 Units ity of 100 unit/mL 00:00: under the [place] injection 00 skin 2 Medical (two) Branch times daily. empaglifloz 2020-0 Yes [id number] 1{tbl} Take 1 [facility] in 9-22 tablet by ity of ([place]ARDIANCE) 00:00: mouth [place] 10 mg Tab 00 daily. Medical Branch insulin 2020-0 Yes [id number] 10U inject 10 [facility] glargine 9-22 Units ity of 100 unit/mL 00:00: under the [place] injection 00 skin 2 Medical (two) Branch times daily. empaglifloz 2020-0 Yes [id number] 1{tbl} Take 1 [facility] in 9-22 tablet by ity of ([place]IANCE) 00:00: mouth [place] 10 mg Tab 00 daily. Medical Branch insulin 2020-0 Yes [id number] 10U inject 10 [facility] glargine 9-22 Units ity of 100 unit/mL 00:00: under the [place] injection 00 skin 2 Medical (two) Branch times daily. empaglifloz 2020-0 Yes [id number] 1{tbl} Take 1 [facility] in 9-22 tablet by ity of (JARDIANCE) 00:00: mouth [place] 10 mg Tab 00 daily. Medical Branch insulin 2020-0 Yes [id number] 10U inject 10 [facility] glargine 9-22 Units ity of 100 unit/mL 00:00: under the [place] injection 00 skin 2 Medical (two) Branch times daily. empaglifloz 2020-0 Yes [id number] 1{tbl} Take 1 [facility] in 9-22 tablet by ity of (JARDIANCE) 00:00: mouth [place] 10 mg Tab 00 daily. Medical Branch insulin 2020-0 Yes [id number] 10U inject 10 [facility] glargine 9-22 Units [facility] of 100 unit/mL 00:00: under the [place] injection 00 skin 2 [facility] (two) Branch times daily. empaglifloz 2020-0 Yes [id number] 1{tbl} Take 1 [facility] in 9-22 tablet by [facility] of (JARDIANCE) 00:00: mouth [place] 10 mg Tab 00 daily. [facility] insulin 2020-0 Yes [id number] 10U inject 10 [facility] glargine 9-22 Units [facility] of 100 unit/mL 00:00: under the [place] injection 00 skin 2 [facility] (two) Branch times daily. empaglifloz 2020-0 Yes [id number] 1{tbl} Take 1 [facility] in 9-22 tablet by [facility] of (JARDIANCE) 00:00: mouth [place] 10 mg Tab 00 daily. [facility] insulin 2020-0 Yes [id number] 10U inject 10 [facility] glargine 9-22 Units [facility] of 100 unit/mL 00:00: under the [place] injection 00 skin 2 [facility] (two) Branch times daily. empaglifloz 2020-0 Yes [id number] 1{tbl} Take 1 [facility] in 9-22 tablet by [facility] of (JARDIANCE) 00:00: mouth [place] 10 mg Tab 00 daily. [facility] insulin 2020-0 Yes [id number] 10U inject 10 [facility] glargine 9-22 Units [facility] of 100 unit/mL 00:00: under the [place] injection 00 skin 2 [facility] (two) Branch times daily. empaglifloz 2020-0 Yes [id number] 1{tbl} Take 1 [facility] in 9-22 tablet by [facility] of (JARDIANCE) 00:00: mouth [place] 10 mg Tab 00 daily. [facility] insulin 2020-0 Yes [id number] 10U inject 10 [facility] glargine 9-22 Units [facility] of 100 unit/mL 00:00: under the [place] injection 00 skin 2 [facility] (two) Branch times daily. empaglifloz 2020-0 Yes [id number] 1{tbl} Take 1 [facility] in 9-22 tablet by [facility] of (JARDIANCE) 00:00: mouth [place] 10 mg Tab 00 daily. [facility] insulin 2020-0 Yes [id number] 10U inject 10 [facility] glargine 9-22 Units [facility] of 100 unit/mL 00:00: under the [place] injection 00 skin 2 [facility] (two) Branch times daily. empaglifloz 2020-0 Yes [id number] 1{tbl} Take 1 [facility] in 9-22 tablet by [facility] of (JARDIANCE) 00:00: mouth [place] 10 mg Tab 00 daily. [facility] insulin 2020-0 Yes [id number] 10U inject 10 [facility] glargine 9-22 Units [facility] of 100 unit/mL 00:00: under the [place] injection 00 skin 2 [facility] (two) Branch times daily. empaglifloz 2020-0 Yes [id number] 1{tbl} Take 1 [facility] in 9-22 tablet by [facility] of (JARDIANCE) 00:00: mouth [place] 10 mg Tab 00 daily. [facility] insulin 2020-0 Yes [id number] 10U inject 10 [facility] glargine 9-22 Units [facility] of 100 unit/mL 00:00: under the [place] injection 00 skin 2 [facility] (two) Branch times daily. empaglifloz 2020-0 Yes [id number] 1{tbl} Take 1 [facility] in 9-22 tablet by [facility] of (JARDIANCE) 00:00: mouth [place] 10 mg Tab 00 daily. [facility] insulin 2020-0 Yes [id number] 10U inject 10 [facility] glargine 9-22 Units [facility] of 100 unit/mL 00:00: under the [place] injection 00 skin 2 [facility] (two) Branch times daily. empaglifloz 2020-0 Yes [id number] 1{tbl} Take 1 [facility] in 9-22 tablet by [facility] of (JARDIANCE) 00:00: mouth [place] 10 mg Tab 00 daily. [facility] insulin 2020-0 Yes [id number] 10U inject 10 [facility] glargine 9-22 Units [facility] of 100 unit/mL 00:00: under the [place] injection 00 skin 2 [facility] (two) Branch times daily. empaglifloz 2020-0 Yes [id number] 1{tbl} Take 1 [facility] in 9-22 tablet by [facility] of (JARDIANCE) 00:00: mouth [place] 10 mg Tab 00 daily. [facility] insulin 2020-0 Yes [id number] 10U inject 10 [facility] glargine 9-22 Units [facility] of 100 unit/mL 00:00: under the [place] injection 00 skin 2 [facility] (two) Branch times daily. empaglifloz 2020-0 Yes [id number] 1{tbl} Take 1 [facility] in 9-22 tablet by [facility] of (JARDIANCE) 00:00: mouth [place] 10 mg Tab 00 daily. [facility] insulin 2020-0 Yes [id number] 10U inject 10 [facility] glargine 9-22 Units [facility] of 100 unit/mL 00:00: under the [place] injection 00 skin 2 [facility] (two) Branch times daily. empaglifloz 2020-0 Yes [id number] 1{tbl} Take 1 [facility] in 9-22 tablet by [facility] of (JARDIANCE) 00:00: mouth [place] 10 mg Tab 00 daily. [facility] insulin 2020-0 Yes [id number] 10U inject 10 [facility] glargine 9-22 Units [facility] of 100 unit/mL 00:00: under the [place] injection 00 skin 2 [facility] (two) Branch times daily. empaglifloz 2020-0 Yes [id number] 1{tbl} Take 1 [facility] in 9-22 tablet by [facility] of (JARDIANCE) 00:00: mouth [place] 10 mg Tab 00 daily. [facility] insulin 2020-0 Yes [id number] 10U inject 10 [facility] glargine 9-22 Units [facility] of 100 unit/mL 00:00: under the [place] injection 00 skin 2 [facility] (two) Branch times daily. empaglifloz 2020-0 Yes [id number] 1{tbl} Take 1 [facility] in 9-22 tablet by [facility] of (JARDIANCE) 00:00: mouth [place] 10 mg Tab 00 daily. [facility] insulin 2020-0 Yes [id number] 10U inject 10 [facility] glargine 9-22 Units [facility] of 100 unit/mL 00:00: under the [place] injection 00 skin 2 [facility] (two) Branch times daily. empaglifloz 2020-0 Yes [id number] 1{tbl} Take 1 [facility] in 9-22 tablet by [facility] of (JARDIANCE) 00:00: mouth [place] 10 mg Tab 00 daily. [facility] insulin 2020-0 Yes [id number] 10U inject 10 [facility] glargine 9-22 Units [facility] of 100 unit/mL 00:00: under the [place] injection 00 skin 2 [facility] (two) Branch times daily. empaglifloz 2020-0 Yes [id number] 1{tbl} Take 1 [facility] in 9-22 tablet by [facility] of (JARDIANCE) 00:00: mouth [place] 10 mg Tab 00 daily. [facility] insulin 2020-0 Yes [id number] 10U inject 10 [facility] glargine 9-22 Units it[facility] of 100 unit/mL 00:00: under the [place] injection 00 skin 2 [facility] (two) Branch times daily. empaglifloz 2020-0 Yes [id number] 1{tbl} Take 1 [facility] in 9-22 tablet by [facility] of (JARDIANCE) 00:00: mouth [place] 10 mg Tab 00 daily. [facility] insulin 2020-0 Yes [id number] 10U inject 10 [facility] glargine 9-22 Units [facility] of 100 unit/mL 00:00: under the [place] injection 00 skin 2 [facility] (two) Branch times daily. empaglifloz 2020-0 Yes [id number] 1{tbl} Take 1 [facility] in 9-22 tablet [...] Indication s: acute pain insulin 2020-0 Yes [id number] 10U inject 10 [facility] glargine 9-22 Units [facility] of 100 unit/mL 00:00: under the [place] injection 00 skin 2 [facility] (two) Branch times daily. empaglifloz 2020-0 Yes [id number] 1{tbl} Take 1 [facility] in 9-22 tablet [...] Indication s: acute pain insulin 2020-0 Yes [id number] 10U inject 10 [facility] glargine 9-22 Units [facility] of 100 unit/mL 00:00: under the [place] injection 00 skin 2 [facility] (two) Branch times daily. empaglifloz 2020-0 Yes [id number] 1{tbl} Take 1 [facility] in 9-22 tablet [...] Indication s: chronic pain insulin 2020-0 Yes [id number] 10U inject 10 [facility] glargine 9-22 Units [facility] of 100 unit/mL 00:00: under the [place] injection 00 skin 2 [facility] (two) Branch times daily. empaglifloz 2020-0 Yes [id number] 1{tbl} Take 1 [facility] in 9-22 tablet [...] Indication s: acute pain insulin 2020-0 Yes [id number] 10U inject 10 [facility] glargine 9-22 Units [facility] of 100 unit/mL 00:00: under the [place] injection 00 skin 2 [facility] (two) Branch times daily. empaglifloz 2020-0 Yes [id number] 1{tbl} Take 1 [facility] in 9-22 tablet [...] Indication s: acute pain insulin 2020-0 Yes [id number] 10U inject 10 [facility] glargine 9-22 Units [facility] of 100 unit/mL 00:00: under the [place] injection 00 skin 2 [facility] (two) Branch times daily. empaglifloz 2020-0 Yes [id number] 1{tbl} Take 1 [facility] in 9-22 tablet [...] Indication s: acute pain insulin 2020-0 Yes [id number] 10U inject 10 [facility] glargine 9-22 Units [facility] of 100 unit/mL 00:00: under the [place] injection 00 skin 2 [facility] (two) Branch times daily. empaglifloz 2020-0 Yes [id number] 1{tbl} Take 1 [facility] in 9-22 tablet [...] Indication s: acute pain insulin 2020-0 Yes [id number] 10U inject 10 [facility] glargine 9-22 Units [facility] of 100 unit/mL 00:00: under the [place] injection 00 skin 2 [facility] (two) Branch times daily. empaglifloz 2020-0 Yes [id number] 1{tbl} Take 1 [facility] in 9-22 tablet [...] Indication s: acute pain insulin 2020-0 Yes [id number] 10U inject 10 [facility] glargine 9-22 Units [facility] of 100 unit/mL 00:00: under the [place] injection 00 skin 2 [facility] (two) Branch times daily. empaglifloz 2020-0 Yes [id number] 1{tbl} Take 1 [facility] in 9-22 tablet [...] Indication s: acute pain insulin 2020-0 Yes [id number] 10U inject 10 [facility] glargine 9-22 Units [facility] of 100 unit/mL 00:00: under the [place] injection 00 skin 2 [facility] (two) Branch times daily. empaglifloz 2020-0 Yes [id number] 1{tbl} Take 1 [facility] in 9-22 tablet [...] Indication s: acute pain insulin 2020-0 Yes [id number] 10U inject 10 [facility] glargine 9-22 Units [facility] of 100 unit/mL 00:00: under the [place] injection 00 skin 2 [facility] (two) Branch times daily. empaglifloz 2020-0 Yes [id number] 1{tbl} Take 1 [facility] in 9-22 tablet [...] Indication s: acute pain insulin 2020-0 Yes [id number] 10U inject 10 [facility] glargine 9-22 Units [facility] of 100 unit/mL 00:00: under the [place] injection 00 skin 2 [facility] (two) Branch times daily. empaglifloz 2020-0 Yes [id number] 1{tbl} Take 1 [facility] in 9-22 tablet [...] Indication s: acute pain insulin 2020-0 Yes [id number] 10U inject 10 [facility] glargine 9-22 Units [facility] of 100 unit/mL 00:00: under the [place] injection 00 skin 2 [facility] (two) Branch times daily. empaglifloz 2020-0 Yes [id number] 1{tbl} Take 1 [facility] in 9-22 tablet [...] Indication s: acute pain insulin 2020-0 Yes [id number] 10U inject 10 [facility] glargine 9-22 Units [facility] of 100 unit/mL 00:00: under the [place] injection 00 skin 2 [facility] (two) Branch times daily. empaglifloz 2020-0 Yes [id number] 1{tbl} Take 1 [facility] in 9-22 tablet by [facility] of (JARDIANCE) 00:00: mouth [place] 10 mg Tab 00 daily. [facility] insulin 2020-0 Yes [id number] 10U inject 10 [facility] glargine 9-22 Units it[facility] of 100 unit/mL 00:00: under the [place] injection 00 skin 2 [facility] (two) Branch times daily. empaglifloz 2020-0 Yes [id number] 1{tbl} Take 1 [facility] in 9-22 tablet by [facility] of (JARDIANCE) 00:00: mouth [place] 10 mg Tab 00 daily. [facility] insulin 2020-0 Yes [id number] 10U inject 10 [facility] glargine 9-22 Units it[facility] of 100 unit/mL 00:00: under the [place] injection 00 skin 2 [facility] (two) Branch times daily. empaglifloz 2020-0 Yes [id number] 1{tbl} Take 1 [facility] in 9-22 tablet by [facility] of (JARDIANCE) 00:00: mouth [place] 10 mg Tab 00 daily. [facility] insulin 2020-0 Yes [id number] 10U inject 10 [facility] glargine 9-22 Units it[facility] of 100 unit/mL 00:00: under the [place] injection 00 skin 2 [facility] (two) Branch times daily. empaglifloz 2020-0 Yes [id number] 1{tbl} Take 1 [facility] in 9-22 tablet by [facility] of (JARDIANCE) 00:00: mouth [place] 10 mg Tab 00 daily. [facility] insulin 2020-0 Yes [id number] 10U inject 10 [facility] glargine 9-22 Units it[facility] of 100 unit/mL 00:00: under the [place] injection 00 skin 2 [facility] (two) Branch times daily. empaglifloz 2020-0 Yes [id number] 1{tbl} Take 1 [facility] in 9-22 tablet by [facility] of (JARDIANCE) 00:00: mouth [place] 10 mg Tab 00 daily. [facility] insulin 2020-0 Yes [id number] 10U inject 10 [facility] glargine 9-22 Units it[facility] of 100 unit/mL 00:00: under the [place] injection 00 skin 2 [facility] (two) Branch times daily. empaglifloz 2020-0 Yes [id number] 1{tbl} Take 1 [facility] in 9-22 tablet by [facility] of (JARDIANCE) 00:00: mouth [place] 10 mg Tab 00 daily. [facility] insulin 2020-0 Yes [id number] 10U inject 10 [facility] glargine 9-22 Units it[facility] of 100 unit/mL 00:00: under the [place] injection 00 skin 2 [facility] (two) Branch times daily. empaglifloz 2020-0 Yes [id number] 1{tbl} Take 1 [facility] in 9-22 tablet by [facility] of (JARDIANCE) 00:00: mouth [place] 10 mg Tab 00 daily. [facility] insulin 2020-0 Yes [id number] 10U inject 10 [facility] glargine 9-22 Units it[facility] of 100 unit/mL 00:00: under the [place] injection 00 skin 2 [facility] (two) Branch times daily. empaglifloz 2020-0 Yes [id number] 1{tbl} Take 1 [facility] in 9-22 tablet by [facility] of (JARDIANCE) 00:00: mouth [place] 10 mg Tab 00 daily. [facility] insulin 2020-0 Yes [id number] 10U inject 10 [facility] glargine 9-22 Units ity of 100 unit/mL 00:00: under the [place] injection 00 skin 2 [facility] (two) Branch times daily. empaglifloz 2020-0 Yes [id number] 1{tbl} Take 1 [facility] in 9-22 tablet by [facility] of (JARDIANCE) 00:00: mouth [place] 10 mg Tab 00 daily. [facility] insulin 2020-0 Yes [id number] 10U inject 10 [facility] glargine 9-22 Units ity of 100 unit/mL 00:00: under the [place] injection 00 skin 2 [facility] (two) Branch times daily. empaglifloz 2020-0 Yes [id number] 1{tbl} Take 1 [facility] in 9-22 tablet by [facility] of (J[facility]IANCE) 00:00: mouth [place] 10 mg Tab 00 daily. [facility] insulin 2020-0 Yes [id number] 10U inject 10 [facility] glargine 9-22 Units it[facility] of 100 unit/mL 00:00: under the [place] injection 00 skin 2 [facility] (two) Branch times daily. empaglifloz 2020-0 Yes [id number] 1{tbl} Take 1 [facility] in 9-22 tablet by [facility] of (JARDIANCE) 00:00: mouth [place] 10 mg Tab 00 daily. [facility] insulin 2020-0 Yes [id number] 10U inject 10 [facility] glargine 9-22 Units it[facility] of 100 unit/mL 00:00: under the [place] injection 00 skin 2 [facility] (two) Branch times daily. empaglifloz 2020-0 Yes [id number] 1{tbl} Take 1 [facility] in 9-22 tablet by [facility] of (JARDIANCE) 00:00: mouth [place] 10 mg Tab 00 daily. [facility] insulin 2020-0 Yes [id number] 10U inject 10 [facility] glargine 9-22 Units ity of 100 unit/mL 00:00: under the [place] injection 00 skin 2 [facility] (two) Branch times daily. empaglifloz 2020-0 Yes [id number] 1{tbl} Take 1 [facility] in 9-22 tablet by [facility] of (J[facility]IANCE) 00:00: mouth [place] 10 mg Tab 00 daily. [facility] insulin 2020-0 Yes [id number] 10U inject 10 [facility] glargine 9-22 Units it[facility] of 100 unit/mL 00:00: under the [place] injection 00 skin 2 [facility] (two) Branch times daily. empaglifloz 2020-0 Yes [id number] 1{tbl} Take 1 [facility] in 9-22 tablet by [facility] of ([facility]IANCE) 00:00: mouth [place] 10 mg Tab 00 daily. [facility] insulin 2020-0 Yes [id number] 10U inject 10 [facility] glargine 9-22 Units it[facility] of 100 unit/mL 00:00: under the [place] injection 00 skin 2 [facility] (two) Branch times daily. empaglifloz 2020-0 Yes [id number] 1{tbl} Take 1 [facility] in 9-22 tablet by [facility] of (J[facility]IANCE) 00:00: mouth [place] 10 mg Tab 00 daily. [facility] insulin 2020-0 Yes [id number] 10U inject 10 [facility] glargine 9-22 Units ity of 100 unit/mL 00:00: under the [place] injection 00 skin 2 [facility] (two) Branch times daily. empaglifloz 2020-0 Yes [id number] 1{tbl} Take 1 [facility] in 9-22 tablet by [facility] of (J[facility]IANCE) 00:00: mouth [place] 10 mg Tab 00 daily. [facility] insulin 2020-0 Yes [id number] 10U inject 10 [facility] glargine 9-22 Units ity of 100 unit/mL 00:00: under the [place] injection 00 skin 2 [facility] (two) Branch times daily. empaglifloz 2020-0 Yes [id number] 1{tbl} Take 1 [facility] in 9-22 tablet by [facility] of ([facility]IANCE) 00:00: mouth [place] 10 mg Tab 00 daily. [facility] insulin 2020-0 Yes [id number] 10U inject 10 [facility] glargine 9-22 Units ity of 100 unit/mL 00:00: under the [place] injection 00 skin 2 [facility] (two) Branch times daily. empaglifloz 2020-0 Yes [id number] 1{tbl} Take 1 [facility] in 9-22 tablet by [facility] of (J[facility]IANCE) 00:00: mouth [place] 10 mg Tab 00 daily. [facility] insulin 2020-0 Yes [id number] 10U inject 10 [facility] glargine 9-22 Units ity of 100 unit/mL 00:00: under the [place] injection 00 skin 2 [facility] (two) Branch times daily. empaglifloz 2020-0 Yes [id number] 1{tbl} Take 1 [facility] in 9-22 tablet by [facility] of (JARDIANCE) 00:00: mouth [place] 10 mg Tab 00 daily. [facility] insulin 2020-0 Yes [id number] 10U inject 10 [facility] glargine 9-22 Units ity of 100 unit/mL 00:00: under the [place] injection 00 skin 2 [facility] (two) Branch times daily. empaglifloz 2020-0 Yes [id number] 1{tbl} Take 1 [facility] in 9-22 tablet by [facility] of (J[facility]IANCE) 00:00: mouth [place] 10 mg Tab 00 daily. [facility] insulin 2020-0 Yes [id number] 10U inject 10 [facility] glargine 9-22 Units ity of 100 unit/mL 00:00: under the [place] injection 00 skin 2 [facility] (two) Branch times daily. empaglifloz 2020-0 Yes [id number] 1{tbl} Take 1 [facility] in 9-22 tablet by [facility] of (JARDIANCE) 00:00: mouth [place] 10 mg Tab 00 daily. [facility] insulin 2020-0 Yes [id number] 10U inject 10 [facility] glargine 9-22 Units ity of 100 unit/mL 00:00: under the [place] injection 00 skin 2 [facility] (two) Branch times daily. empaglifloz 2020-0 Yes [id number] 1{tbl} Take 1 [facility] in 9-22 tablet by [facility] of ([facility]IANCE) 00:00: mouth [place] 10 mg Tab 00 daily. [facility] insulin 2020-0 Yes [id number] 10U inject 10 [facility] glargine 9-22 Units ity of 100 unit/mL 00:00: under the [place] injection 00 skin 2 [facility] (two) Branch times daily. empaglifloz 2020-0 Yes [id number] 1{tbl} Take 1 [facility] in 9-22 tablet by [facility] of (J[facility]IANCE) 00:00: mouth [place] 10 mg Tab 00 daily. [facility] insulin 2020-0 Yes [id number] 10U inject 10 [facility] glargine 9-22 Units ity of 100 unit/mL 00:00: under the [place] injection 00 skin 2 [facility] (two) Branch times daily. empaglifloz 2020-0 Yes [id number] 1{tbl} Take 1 [facility] in 9-22 tablet by [facility] of (J[facility]IANCE) 00:00: mouth [place] 10 mg Tab 00 daily. [facility] insulin 2020-0 Yes [id number] 10U inject 10 [facility] glargine 9-22 Units ity of 100 unit/mL 00:00: under the [place] injection 00 skin 2 [facility] (two) Branch times daily. empaglifloz Yes [id number] 1{tbl} Take 1 [facility] in 9-22 tablet by [facility] of (J[facility]IANCE) 00:00: mouth [place] 10 mg Tab 00 daily. Medical [facility] HYDROcodone 2019- No [id number] 1{tbl} Take 1 [facility] n[facility] -acetaminop 9-22 10-16 tablet by it y of hen (NORCO) 00:00: 00:[place] 5-325 mg 00 :00 every 6 Medical tablet (six) Branch hours as needed for Pain (scale 7-10). Indication s: acute pain HYDROcodone 2019- No [id number] 1{tbl} Take 1 [facility] n[facility] -acetaminop 9-22 10-16 tablet by it y of hen (NORCO) 00:00: 00:00 [place] 5-325 mg 00 :00 every 6 Medical tablet (six) Branch hours as needed for Pain (scale 7-10). Indication s: acute pain HYDROcodone 2019- No [id number] 1{tbl} Take 1 [facility] n[facility] -acetaminop 9-22 10-16 tablet by it y of hen (NORCO) 00:00: 00:00 [place] 5-325 mg 00 :00 every 6 Medical tablet (six) Branch hours as needed for Pain (scale 7-10). Indication s: acute pain acetaminoph 2019- No [id number] 1{tbl} Take 1 [facility] n[facility] en-codeine -22 09-25 tablet by ity of (TYLENOL-CO 00:00: 00:00 [place] DEINE #3) 00 :00 every 6 Medical 300-30 mg (six) Branch tablet hours as needed for Pain (scale 4-6). Indication s: chronic pain amoxicillin Yes [id number] 1{tbl} Take 1 [facility] -clavulanat 9-13 tablet by ity of e 00:00: mouth 2 [place] (AUGMENTIN) 00 (two) Medical 875-125 mg times Branch per tablet daily. atorvastati Yes [id number] 20mg Take 1 [facility] n 20 mg 9-13 tablet by ity of tablet 00:00: mouth at [place] 00 bedtime. Medical Branch carvediloL 2020-0 Yes [id number] 12.5mg Take 1 [facility] 12.5 mg 9-13 tablet by ity of tablet 00:00: mouth 2 00 (two) Medical times Branch daily with meals. aspirin 81 2020-0 Yes [id number] 81mg Take 1 [facility] mg chewable 9-13 tablet by ity of tablet 00:00: mouth [place] 00 daily. Medical [facility] amoxicillin 2020-0 Yes [id number] 1{tbl} Take 1 [facility] -clavulanat 9-13 tablet by ity of e 00:00: mouth 2 [place] (AUGMENTIN) 00 (two) Medical 875-125 mg times Branch per tablet daily. atorvastati 2020-0 Yes [id number] 20mg Take 1 [facility] n 20 mg 9-13 tablet by ity of tablet 00:00: mouth at [place] 00 bedtime. Medical Branch carvediloL 2020-0 Yes [id number] 12.5mg Take 1 [facility] 12.5 mg 9-13 tablet by ity of tablet 00:00: mouth 2 [place] (two) Medical times Branch daily with meals. aspirin 81 2020-0 Yes [id number] 81mg Take 1 [facility] mg chewable 9-13 tablet by ity of tablet 00:00: mouth [place] 00 daily. Medical Branch amoxicillin 2020-0 Yes [id number] 1{tbl} Take 1 [facility] -clavulanat 9-13 tablet by ity of e 00:00: mouth 2 [place] (AUGMENTIN) 00 (two) Medical 875-125 mg times Branch per tablet daily. atorvastati 2020-0 Yes [id number] 20mg Take 1 [facility] n 20 mg 9-13 tablet by ity of tablet 00:00: mouth at [place] 00 bedtime. Medical [facility] carvediloL 2020-0 Yes [id number] 12.5mg Take 1 [facility] 12.5 mg 9-13 tablet by ity of tablet 00:00: mouth 2 [place] (two) Medical times Branch daily with meals. aspirin 81 2020-0 Yes [id number] 81mg Take 1 [facility] mg chewable 9-13 tablet by ity of tablet 00:00: mouth [place] 00 daily. Medical [facility] amoxicillin 2020-0 Yes [id number] 1{tbl} Take 1 [facility] -clavulanat 9-13 tablet by ity of e 00:00: mouth 2 [place] (AUGMENTIN) 00 (two) Medical 875-125 mg times Branch per tablet daily. atorvastati 2020-0 Yes [id number] 20mg Take 1 [facility] n 20 mg 9-13 tablet by ity of tablet 00:00: mouth at [place] 00 bedtime. Medical Branch carvediloL 2020-0 Yes [id number] 12.5mg Take 1 [facility] 12.5 mg 9-13 tablet by ity of tablet 00:00: mouth 2 [place] 00 (two) Medical times Branch daily with meals. aspirin 81 2020-0 Yes [id number] 81mg Take 1 [facility] mg chewable 9-13 tablet by ity of tablet 00:00: mouth [place] 00 daily. Medical Branch amoxicillin 2020-0 Yes [id number] 1{tbl} Take 1 [facility] -clavulanat 9-13 tablet by ity of e 00:00: mouth 2 [place] (AUGMENTIN) 00 (two) Medical 875-125 mg times Branch per tablet daily. atorvastati 2020-0 Yes [id number] 20mg Take 1 [facility] n 20 mg 9-13 tablet by ity of tablet 00:00: mouth at [place] 00 bedtime. Medical Branch carvediloL 2020-0 Yes [id number] 12.5mg Take 1 [facility] 12.5 mg 9-13 tablet by ity of tablet 00:00: mouth 2 [place] (two) Medical times Branch daily with meals. aspirin 81 2020-0 Yes [id number] 81mg Take 1 [facility] mg chewable 9-13 tablet by ity of tablet 00:00: mouth [place] 00 daily. Medical Branch amoxicillin 2020-0 Yes [id number] 1{tbl} Take 1 [facility] -clavulanat 9-13 tablet by ity of e 00:00: mouth 2 [place] (AUGMENTIN) 00 (two) Medical 875-125 mg times Branch per tablet daily. atorvastati 2020-0 Yes [id number] 20mg Take 1 [facility] n 20 mg 9-13 tablet by ity of tablet 00:00: mouth at [place] 00 bedtime. Medical Branch carvediloL 2020-0 Yes [id number] 12.5mg Take 1 [facility] 12.5 mg 9-13 tablet by ity of tablet 00:00: mouth 2 [place] 00 (two) Medical times Branch daily with meals. aspirin 81 2020-0 Yes [id number] 81mg Take 1 [facility] mg chewable 9-13 tablet by ity of tablet 00:00: mouth [place] 00 daily. Medical Branch amoxicillin 2020-0 Yes [id number] 1{tbl} Take 1 [facility] -clavulanat 9-13 tablet by ity of e 00:00: mouth 2 [place] (AUGMENTIN) 00 (two) Medical 875-125 mg times Branch per tablet daily. atorvastati 2020-0 Yes [id number] 20mg Take 1 [facility] n 20 mg 9-13 tablet by ity of tablet 00:00: mouth at [place] 00 bedtime. Medical [facility] carvediloL 2020-0 Yes [id number] 12.5mg Take 1 [facility] 12.5 mg 9-13 tablet by ity of tablet 00:00: mouth 2 [place] 00 (two) Medical times Branch daily with meals. aspirin 81 2020-0 Yes [id number] 81mg Take 1 [facility] mg chewable 9-13 tablet by ity of tablet 00:00: mouth [place] 00 daily. Medical Branch amoxicillin 2020-0 Yes [id number] 1{tbl} Take 1 [facility] -clavulanat 9-13 tablet by ity of e 00:00: mouth 2 [place] (AUGMENTIN) 00 (two) Medical 875-125 mg times Branch per tablet daily. atorvastati 2020-0 Yes [id number] 20mg Take 1 [facility] n 20 mg 9-13 tablet by ity of tablet 00:00: mouth at [place] 00 bedtime. Medical Branch carvediloL 2020-0 Yes [id number] 12.5mg Take 1 [facility] 12.5 mg 9-13 tablet by ity of tablet 00:00: mouth 2 [place] 00 (two) Medical times Branch daily with meals. aspirin 81 2020-0 Yes [id number] 81mg Take 1 [facility] mg chewable 9-13 tablet by ity of tablet 00:00: mouth [place] 00 daily. Medical Branch amoxicillin 2020-0 Yes [id number] 1{tbl} Take 1 [facility] -clavulanat 9-13 tablet by ity of e 00:00: mouth 2 [place] (AUGMENTIN) 00 (two) Medical 875-125 mg times Branch per tablet daily. atorvastati 2020-0 Yes [id number] 20mg Take 1 [facility] n 20 mg 9-13 tablet by ity of tablet 00:00: mouth at [place] 00 bedtime. Medical Branch carvediloL 2020-0 Yes [id number] 12.5mg Take 1 [facility] 12.5 mg 9-13 tablet by ity of tablet 00:00: mouth 2 (two) Medical times Branch daily with meals. aspirin 81 2020-0 Yes [id number] 81mg Take 1 [facility] mg chewable 9-13 tablet by ity of tablet 00:00: mouth [place] 00 daily. Medical Branch amoxicillin 2020-0 Yes [id number] 1{tbl} Take 1 [facility] -clavulanat 9-13 tablet by ity of e 00:00: mouth 2 [place] (AUGMENTIN) 00 (two) Medical 875-125 mg times Branch per tablet daily. atorvastati 2020-0 Yes [id number] 20mg Take 1 [facility] n 20 mg 9-13 tablet by ity of tablet 00:00: mouth at [place] 00 bedtime. Medical Branch carvediloL 2020-0 Yes [id number] 12.5mg Take 1 [facility] 12.5 mg 9-13 tablet by ity of tablet 00:00: mouth 2 (two) Medical times Branch daily with meals. aspirin 81 2020-0 Yes [id number] 81mg Take 1 [facility] mg chewable 9-13 tablet by ity of tablet 00:00: mouth [place] 00 daily. Medical Branch amoxicillin 2020-0 Yes [id number] 1{tbl} Take 1 [facility] -clavulanat 9-13 tablet by ity of e 00:00: mouth 2 [place] (AUGMENTIN) 00 (two) Medical 875-125 mg times Branch per tablet daily. atorvastati 2020-0 Yes [id number] 20mg Take 1 [facility] 20 mg 9-13 tablet by [facility] 00:00: mouth at [place] 00 bedtime. Medical [facility] carvediloL 2020-0 Yes [id number] 12.5mg Take 1 [facility] 12.5 mg 9-13 tablet by [facility] tablet 00:00: mouth 2 (two) Medical times Branch daily with meals. aspirin 81 2020-0 Yes [id number] 81mg Take 1 [facility] mg chewable 9-13 tablet by [facility] tablet 00:00: mouth [place] 00 daily. Medical Branch amoxicillin 2020-0 Yes [id number] 1{tbl} Take 1 [facility] -clavulanat 9-13 tablet by [facility] 00:00: mouth 2 (AUGMENTIN) 00 (two) Medical 875-125 mg times Branch per tablet daily. atorvastati 2020-0 Yes [id number] 20mg Take 1 [facility] n 20 mg 9-13 tablet by [facility] tablet 00:00: mouth at [place] 00 bedtime. Medical [facility] carvediloL 2020-0 Yes [id number] 12.5mg Take 1 [facility] 12.5 mg 9-13 tablet by [facility] tablet 00:00: mouth 2 (two) Medical times Branch daily with meals. aspirin 81 2020-0 Yes [id number] 81mg Take 1 [facility] mg chewable 9-13 tablet by [facility] tablet 00:00: mouth 00 daily. [facility] Branch atorvastati 2020-0 Yes [id number] 20mg Take 1 [facility] n 20 mg 9-13 tablet by [facility] tablet 00:00: mouth at [place] 00 bedtime. Medical [facility] carvediloL 2020-0 Yes [id number] 12.5mg Take 1 [facility] 12.5 mg 9-13 tablet by [facility] tablet 00:00: mouth 2 (two) Medical times Branch daily with meals. aspirin 81 2020-0 Yes [id number] 81mg Take 1 [facility] mg chewable 9-13 tablet by [facility] tablet 00:00: mouth 00 daily. [facility] atorvastati 2019-0 Yes [id number] 20mg Take 1 [facility] n 20 mg 9-13 tablet by [facility] tablet 00:00: mouth at [place] 00 bedtime. [facility] carvediloL 2020-0 Yes [id number] 12.5mg Take 1 [facility] 12.5 mg 9-13 tablet by [facility] tablet 00:00: mouth 2 (two) Medical times Branch daily with meals. aspirin 81 2020-0 Yes [id number] 81mg Take 1 [facility] mg chewable 9-13 tablet by [facility] tablet 00:00: mouth 00 daily. [facility] atorvastati 2020-0 Yes [id number] 20mg Take 1 [facility] n 20 mg 9-13 tablet by [facility] tablet 00:00: mouth at [place] 00 bedtime. Medical [facility] carvediloL 2020-0 Yes [id number] 12.5mg Take 1 [facility] 12.5 mg 9-13 tablet by [facility] tablet 00:00: mouth 2 (two) Medical times Branch daily with meals. aspirin 81 2020-0 Yes [id number] 81mg Take 1 [facility] mg chewable 9-13 tablet by [facility] tablet 00:00: mouth [place] 00 daily. [facility] Branch atorvastati 2020-0 Yes [id number] 20mg Take 1 [facility] n 20 mg 9-13 tablet by [facility] tablet 00:00: mouth at [place] 00 bedtime. Medical [facility] carvediloL 2020-0 Yes [id number] 12.5mg Take 1 [facility] 12.5 mg 9-13 tablet by [facility] tablet 00:00: mouth 2 (two) Medical times Branch daily with meals. aspirin 81 2020-0 Yes [id number] 81mg Take 1 [facility] mg chewable 9-13 tablet by [facility] tablet 00:00: mouth 00 daily. [facility] Branch atorvastati 2020-0 Yes [id number] 20mg Take 1 [facility] n 20 mg 9-13 tablet by [facility] tablet 00:00: mouth at [place] 00 bedtime. Medical [facility] aspirin 81 2020-0 Yes [id number] 81mg Take 1 [facility] mg chewable 9-13 tablet by [facility] tablet 00:00: mouth [place] 00 daily. Medical Branch atorvastati 2020-0 Yes [id number] 20mg Take 1 [facility] n 20 mg 9-13 tablet by [facility] tablet 00:00: mouth at [place] 00 bedtime. Medical Branch aspirin 81 2020-0 Yes [id number] 81mg Take 1 [facility] mg chewable 9-13 tablet by [facility] tablet 00:00: mouth 00 daily. [facility] Branch atorvastati 2020-0 Yes [id number] 20mg Take 1 [facility] n 20 mg 9-13 tablet by [facility] tablet 00:00: mouth at [place] 00 bedtime. Medical Branch aspirin 81 2020-0 Yes [id number] 81mg Take 1 [facility] mg chewable 9-13 tablet by [facility] tablet 00:00: mouth [place] 00 daily. Medical Branch atorvastati 2020-0 Yes [id number] 20mg Take 1 [facility] n 20 mg 9-13 tablet by [facility] tablet 00:00: mouth at [place] 00 bedtime. Medical Branch aspirin 81 2020-0 Yes [id number] 81mg Take 1 [facility] mg chewable 9-13 tablet by [facility] tablet 00:00: mouth [place] 00 daily. Medical Branch atorvastati 2020-0 Yes [id number] 20mg Take 1 [facility] n 20 mg 9-13 tablet by [facility] tablet 00:00: mouth at [place] 00 bedtime. Medical [facility] aspirin 81 2020-0 Yes [id number] 81mg Take 1 [facility] mg chewable 9-13 tablet by [facility] tablet 00:00: mouth [place] 00 daily. [facility] Branch atorvastati 2020-0 Yes [id number] 20mg Take 1 [facility] n 20 mg 9-13 tablet by [facility] tablet 00:00: mouth at [place] 00 bedtime. [facility] atorvastati 2020-0 Yes [id number] 20mg Take 1 [facility] n 20 mg 9-13 tablet by [facility] tablet 00:00: mouth at [place] [address] bedtime. Medical Branch atorvastati 2020-0 Yes [id number] 20mg Take 1 [facility] n 20 mg 9-13 tablet by [facility] tablet 00:00: mouth at [place] [address] bedtime. Medical Branch atorvastati 2020-0 Yes [id number] 20mg Take 1 [facility] n 20 mg 9-13 tablet by [facility] tablet 00:00: mouth at [place] [address] bedtime. Medical Branch atorvastati 2020-0 Yes [id number] 20mg Take 1 [facility] n 20 mg 9-13 tablet by [facility] tablet 00:00: mouth at [place] [address] bedtime. Medical Branch atorvastati 2020-0 Yes [id number] 20mg Take 1 [facility] n 20 mg 9-13 tablet by [facility] tablet 00:00: mouth at [place] [address] bedtime. Medical Branch atorvastati 2020-0 Yes [id number] 20mg Take 1 [facility] n 20 mg 9-13 tablet by [facility] tablet 00:00: mouth at [place] [address] bedtime. Medical Branch atorvastati 2020-0 Yes [id number] 20mg Take 1 [facility] n 20 mg 9-13 tablet by [facility] tablet 00:00: mouth at [place] [address] bedtime. Medical Branch atorvastati 2020-0 Yes [id number] 20mg Take 1 [facility] n 20 mg 9-13 tablet by [facility] tablet 00:00: mouth at [place] [address] bedtime. Medical Branch atorvastati 2020-0 Yes [id number] 20mg Take 1 [facility] n 20 mg 9-13 tablet by [facility] tablet 00:00: mouth at [place] 00 bedtime. [facility] atorvastati 2019-0 Yes [id number] 20mg Take 1 [facility] n 20 mg 9-13 tablet by [facility] tablet 00:00: mouth at [place] 00 bedtime. [facility] Branch atorvastati 2019-0 Yes [id number] 20mg Take 1 [facility] n 20 mg 9-13 tablet by [facility] tablet 00:00: mouth at [place] [address] bedtime. Medical Branch atorvastati 2019-0 Yes [id number] 20mg Take 1 [facility] n 20 mg 9-13 tablet by [facility] tablet 00:00: mouth at [place] [address] bedtime. Medical Branch atorvastati 2019-0 Yes [id number] 20mg Take 1 [facility] n 20 mg 9-13 tablet by [facility] tablet 00:00: mouth at [place] [address] bedtime. Medical Branch atorvastati 2019-0 Yes [id number] 20mg Take 1 [facility] n 20 mg 9-13 tablet by [facility] tablet 00:00: mouth at [place] [address] bedtime. Medical Branch atorvastati 2019-0 Yes [id number] 20mg Take 1 [facility] n 20 mg 9-13 tablet by [facility] tablet 00:00: mouth at [place] [address] bedtime. Medical Branch atorvastati 0 Yes [id number] 20mg Take 1 [facility] n 20 mg 9-13 tablet by [facility] tablet 00:00: mouth at [place] [address] bedtime. Medical Branch HYDROcodone 2019-0 Yes [id number] 1{tbl} Take 1 [facility] -acetaminop 9-13 tablet by [facility] (NORCO) 00:00: mouth [place] 5-325 mg 00 every 6 Medical tablet (six) Branch hours as needed for Pain (scale 7-10). Indication s: acute pain amoxicillin 2019-0 Yes [id number] 1{tbl} Take 1 [facility] -clavulanat 9-13 tablet by [facility] e 00:00: mouth 2 [place] (AUGMENTIN) 00 (two) Medical 875-125 mg times Branch per tablet daily. atorvastati 2019-0 Yes [id number] 20mg Take 1 [facility] n 20 mg 9-13 tablet by [facility] tablet 00:00: mouth at [place] [address] bedtime. Medical Branch carvediloL 2019- Yes [id number] 12.5mg Take 1 [facility] 12.5 mg 9-13 tablet by [facility] tablet 00:00: mouth 2 [place] 00 (two) Medical times Branch daily with meals. aspirin 81 2020-0 Yes [id number] 81mg Take 1 [facility] mg chewable 9-13 tablet by [facility] tablet 00:00: mouth [place] 00 daily. Medical [facility] HYDROcodone 2020-0 Yes [id number] 1{tbl} Take 1 [facility] -acetaminop 9-13 tablet by [facility] (NORCO) 00:00: mouth [place] 5-325 mg 00 every 6 Medical tablet (six) Branch hours as needed for Pain (scale 7-10). Indication s: acute pain amoxicillin 2020-0 Yes [id number] 1{tbl} Take 1 [facility] -clavulanat 9-13 tablet by [facility] e 00:00: mouth 2 [place] (AUGMENTIN) 00 (two) Medical 875-125 mg times Branch per tablet daily. atorvastati 2020-0 Yes [id number] 20mg Take 1 [facility] n 20 mg 9-13 tablet by [facility] tablet 00:00: mouth at [place] 00 bedtime. Medical [facility] carvediloL 2020-0 Yes [id number] 12.5mg Take 1 [facility] 12.5 mg 9-13 tablet by [facility] tablet 00:00: mouth 2 [place] 00 (two) Medical times Branch daily with meals. amoxicillin 2020-0 Yes [id number] 1{tbl} Take 1 [facility] -clavulanat 9-13 tablet by [facility] e 00:00: mouth 2 [place] (AUGMENTIN) 00 (two) Medical 875-125 mg times Branch per tablet daily. aspirin 81 2020-0 Yes [id number] 81mg Take 1 [facility] mg chewable 9-13 tablet by [facility] tablet 00:00: mouth [place] 00 daily. Medical Branch amoxicillin 2020-0 Yes [id number] 1{tbl} Take 1 [facility] -clavulanat 9-13 tablet by [facility] e 00:00: mouth 2 [place] (AUGMENTIN) 00 (two) Medical 875-125 mg times Branch per tablet daily. atorvastati 2020-0 Yes [id number] 20mg Take 1 [facility] n 20 mg 9-13 tablet by [facility] tablet 00:00: mouth at [place] 00 bedtime. Medical Branch atorvastati 2020-0 Yes [id number] 20mg Take 1 [facility] n 20 mg 9-13 tablet by [facility] tablet 00:00: mouth at [place] 00 bedtime. Medical [facility] carvediloL 2020-0 Yes [id number] 12.5mg Take 1 [facility] 12.5 mg 9-13 tablet by [facility] tablet 00:00: mouth 2 (two) Medical times Branch daily with meals. aspirin 81 2020-0 Yes [id number] 81mg Take 1 [facility] mg chewable 9-13 tablet by [facility] tablet 00:00: mouth 00 daily. [facility] carvediloL 2020-0 Yes [id number] 12.5mg Take 1 [facility] 12.5 mg 9-13 tablet by [facility] of tablet 00:00: mouth 2 (two) Medical times Branch daily with meals. aspirin 81 2020-0 Yes [id number] 81mg Take 1 [facility] mg chewable 9-13 tablet by [facility] of tablet 00:00: mouth 00 daily. [facility] Branch amoxicillin 2020-0 Yes [id number] 1{tbl} Take 1 [facility] -clavulanat 9-13 tablet by [facility] e 00:00: mouth 2 [place] (AUGMENTIN) 00 (two) Medical 875-125 mg times Branch per tablet daily. atorvastati 2020-0 Yes [id number] 20mg Take 1 [facility] n 20 mg 9-13 tablet by [facility] tablet 00:00: mouth at [place] 00 bedtime. Medical [facility] carvediloL 2020-0 Yes [id number] 12.5mg Take 1 [facility] 12.5 mg 9-13 tablet by [facility] tablet 00:00: mouth 2 (two) Medical times Branch daily with meals. aspirin 81 2020-0 Yes [id number] 81mg Take 1 [facility] mg chewable 9-13 tablet by [facility] tablet 00:00: mouth [place] 00 daily. [facility] Branch amoxicillin 2020-0 Yes [id number] 1{tbl} Take 1 [facility] -clavulanat 9-13 tablet by [facility] e 00:00: mouth 2 [place] (AUGMENTIN) 00 (two) Medical 875-125 mg times Branch per tablet daily. atorvastati 2020-0 Yes [id number] 20mg Take 1 [facility] n 20 mg 9-13 tablet by [facility] tablet 00:00: mouth at [place] 00 bedtime. Medical [facility] carvediloL 2020-0 Yes [id number] 12.5mg Take 1 [facility] 12.5 mg 9-13 tablet by [facility] of tablet 00:00: mouth 2 00 (two) Medical times Branch daily with meals. aspirin 81 2020-0 Yes [id number] 81mg Take 1 [facility] mg chewable 9-13 tablet by [facility] of tablet 00:00: mouth [place] 00 daily. Medical Branch amoxicillin 2020-0 Yes [id number] 1{tbl} Take 1 [facility] -clavulanat 9-13 tablet by [facility] e 00:00: mouth 2 (AUGMENTIN) 00 (two) Medical 875-125 mg times Branch per tablet daily. atorvastati 2020-0 Yes [id number] 20mg Take 1 [facility] n 20 mg 9-13 tablet by [facility] tablet 00:00: mouth at [place] 00 bedtime. Medical [facility] carvediloL 2020-0 Yes [id number] 12.5mg Take 1 [facility] 12.5 mg 9-13 tablet by [facility] tablet 00:00: mouth 2 (two) Medical times Branch daily with meals. aspirin 81 2020-0 Yes [id number] 81mg Take 1 [facility] mg chewable 9-13 tablet by [facility] of tablet 00:00: mouth [place] 00 daily. Medical [facility] amoxicillin 2020-0 Yes [id number] 1{tbl} Take 1 [facility] -clavulanat 9-13 tablet by [facility] e 00:00: mouth 2 (AUGMENTIN) 00 (two) Medical 875-125 mg times Branch per tablet daily. atorvastati 2020-0 Yes [id number] 20mg Take 1 [facility] n 20 mg 9-13 tablet by [facility] of tablet 00:00: mouth at [place] 00 bedtime. Medical [facility] carvediloL 2020-0 Yes [id number] 12.5mg Take 1 [facility] 12.5 mg 9-13 tablet by [facility] of tablet 00:00: mouth 2 00 (two) Medical times Branch daily with meals. aspirin 81 2020-0 Yes [id number] 81mg Take 1 [facility] mg chewable 9-13 tablet by [facility] of tablet 00:00: mouth [place] 00 daily. Medical Branch amoxicillin 2020-0 Yes [id number] 1{tbl} Take 1 [facility] -clavulanat 9-13 tablet by [facility] e 00:00: mouth 2 (AUGMENTIN) 00 (two) Medical 875-125 mg times Branch per tablet daily. atorvastati 2020-0 Yes [id number] 20mg Take 1 [facility] n 20 mg 9-13 tablet by [facility] of tablet 00:00: mouth at [place] 00 bedtime. Medical [facility] carvediloL 2020-0 Yes [id number] 12.5mg Take 1 [facility] 12.5 mg 9-13 tablet by [facility] of tablet 00:00: mouth 2 (two) Medical times Branch daily with meals. aspirin 81 2020-0 Yes [id number] 81mg Take 1 [facility] mg chewable 9-13 tablet by [facility] of tablet 00:00: mouth [place] 00 daily. Medical Branch amoxicillin 2020-0 Yes [id number] 1{tbl} Take 1 [facility] -clavulanat 9-13 tablet by [facility] e 00:00: mouth 2 (AUGMENTIN) 00 (two) Medical 875-125 mg times Branch per tablet daily. atorvastati 2020-0 Yes [id number] 20mg Take 1 [facility] n 20 mg 9-13 tablet by [facility] of tablet 00:00: mouth at [place] 00 bedtime. Medical [facility] carvediloL 2020-0 Yes [id number] 12.5mg Take 1 [facility] 12.5 mg 9-13 tablet by [facility] of tablet 00:00: mouth 2 (two) Medical times Branch daily with meals. aspirin 81 2020-0 Yes [id number] 81mg Take 1 [facility] mg chewable 9-13 tablet by [facility] of tablet 00:00: mouth [place] 00 daily. Medical Branch amoxicillin 2020-0 Yes [id number] 1{tbl} Take 1 [facility] -clavulanat 9-13 tablet by [facility] e 00:00: mouth 2 (AUGMENTIN) 00 (two) Medical 875-125 mg times Branch per tablet daily. atorvastati 2020-0 Yes [id number] 20mg Take 1 [facility] n 20 mg 9-13 tablet by [facility] of tablet 00:00: mouth at [place] 00 bedtime. Medical [facility] carvediloL 2020-0 Yes [id number] 12.5mg Take 1 [facility] 12.5 mg 9-13 tablet by [facility] tablet 00:00: mouth 2 00 (two) Medical times Branch daily with meals. aspirin 81 2020-0 Yes [id number] 81mg Take 1 [facility] mg chewable 9-13 tablet by [facility] of tablet 00:00: mouth [place] 00 daily. Medical Branch amoxicillin 2020-0 Yes [id number] 1{tbl} Take 1 [facility] -clavulanat 9-13 tablet by [facility] e 00:00: mouth 2 (AUGMENTIN) 00 (two) Medical 875-125 mg times Branch per tablet daily. atorvastati 2020-0 Yes [id number] 20mg Take 1 [facility] n 20 mg 9-13 tablet by [facility] of tablet 00:00: mouth at [place] 00 bedtime. Medical [facility] carvediloL 2020-0 Yes [id number] 12.5mg Take 1 [facility] 12.5 mg 9-13 tablet by [facility] of tablet 00:00: mouth 2 00 (two) Medical times Branch daily with meals. aspirin 81 2020-0 Yes [id number] 81mg Take 1 [facility] mg chewable 9-13 tablet by [facility] of tablet 00:00: mouth [place] 00 daily. Medical Branch amoxicillin 2020-0 Yes [id number] 1{tbl} Take 1 [facility] -clavulanat 9-13 tablet by [facility] e 00:00: mouth 2 [place] (AUGMENTIN) 00 (two) Medical 875-125 mg times Branch per tablet daily. atorvastati 2020-0 Yes [id number] 20mg Take 1 [facility] n 20 mg 9-13 tablet by [facility] of tablet 00:00: mouth at [place] 00 bedtime. Medical Branch carvediloL 2020-0 Yes [id number] 12.5mg Take 1 [facility] 12.5 mg 9-13 tablet by [facility] of tablet 00:00: mouth 2 (two) Medical times Branch daily with meals. aspirin 81 2020-0 Yes [id number] 81mg Take 1 [facility] mg chewable 9-13 tablet by [facility] of tablet 00:00: mouth [place] 00 daily. Medical Branch amoxicillin 2020-0 Yes [id number] 1{tbl} Take 1 [facility] -clavulanat 9-13 tablet by [facility] of e 00:00: mouth 2 [place] (AUGMENTIN) 00 (two) Medical 875-125 mg times Branch per tablet daily. atorvastati 2020-0 Yes [id number] 20mg Take 1 [facility] n 20 mg 9-13 tablet by [facility] of tablet 00:00: mouth at [place] 00 bedtime. Medical Branch carvediloL 2020-0 Yes [id number] 12.5mg Take 1 [facility] 12.5 mg 9-13 tablet by [facility] of tablet 00:00: mouth 2 (two) Medical times Branch daily with meals. aspirin 81 2020-0 Yes [id number] 81mg Take 1 [facility] mg chewable 9-13 tablet by [facility] of tablet 00:00: mouth [place] 00 daily. Medical Branch amoxicillin 2020-0 Yes [id number] 1{tbl} Take 1 [facility] -clavulanat 9-13 tablet by [facility] of e 00:00: mouth 2 (AUGMENTIN) 00 (two) Medical 875-125 mg times Branch per tablet daily. atorvastati 2020-0 Yes [id number] 20mg Take 1 [facility] n 20 mg 9-13 tablet by [facility] of tablet 00:00: mouth at [place] 00 bedtime. Medical Branch carvediloL 2020-0 Yes [id number] 12.5mg Take 1 [facility] 12.5 mg 9-13 tablet by [facility] of tablet 00:00: mouth 2 (two) Medical times Branch daily with meals. aspirin 81 2020-0 Yes [id number] 81mg Take 1 [facility] mg chewable 9-13 tablet by [facility] of tablet 00:00: mouth [place] 00 daily. Medical Branch amoxicillin 2020-0 Yes [id number] 1{tbl} Take 1 [facility] -clavulanat 9-13 tablet by [facility] of e 00:00: mouth 2 [place] (AUGMENTIN) 00 (two) Medical 875-125 mg times Branch per tablet daily. atorvastati 2020-0 Yes [id number] 20mg Take 1 [facility] n 20 mg 9-13 tablet by [facility] of tablet 00:00: mouth at [place] 00 bedtime. Medical Branch carvediloL 2020-0 Yes [id number] 12.5mg Take 1 [facility] 12.5 mg 9-13 tablet by [facility] of tablet 00:00: mouth 2 (two) Medical times Branch daily with meals. aspirin 81 2020-0 Yes [id number] 81mg Take 1 [facility] mg chewable 9-13 tablet by [facility] of tablet 00:00: mouth [place] 00 daily. Medical Branch amoxicillin 2020-0 Yes [id number] 1{tbl} Take 1 [facility] -clavulanat 9-13 tablet by [facility] e 00:00: mouth 2 (AUGMENTIN) 00 (two) Medical 875-125 mg times Branch per tablet daily. atorvastati 2020-0 Yes [id number] 20mg Take 1 [facility] n 20 mg 9-13 tablet by [facility] of tablet 00:00: mouth at [place] 00 bedtime. Medical [facility] carvediloL 2020-0 Yes [id number] 12.5mg Take 1 [facility] 12.5 mg 9-13 tablet by [facility] of tablet 00:00: mouth 2 (two) Medical times Branch daily with meals. aspirin 81 2020-0 Yes [id number] 81mg Take 1 [facility] mg chewable 9-13 tablet by [facility] of tablet 00:00: mouth [place] 00 daily. Medical Branch amoxicillin 2020-0 Yes [id number] 1{tbl} Take 1 [facility] -clavulanat 9-13 tablet by [facility] e 00:00: mouth 2 (AUGMENTIN) 00 (two) Medical 875-125 mg times Branch per tablet daily. atorvastati 2020-0 Yes [id number] 20mg Take 1 [facility] n 20 mg 9-13 tablet by [facility] of tablet 00:00: mouth at [place] 00 bedtime. Medical [facility] carvediloL 2020-0 Yes [id number] 12.5mg Take 1 [facility] 12.5 mg 9-13 tablet by [facility] of tablet 00:00: mouth 2 (two) Medical times Branch daily with meals. aspirin 81 2020-0 Yes [id number] 81mg Take 1 [facility] mg chewable 9-13 tablet by [facility] of tablet 00:00: mouth [place] 00 daily. Medical [facility] amoxicillin 2020-0 Yes [id number] 1{tbl} Take 1 [facility] -clavulanat 9-13 tablet by [facility] of e 00:00: mouth 2 [place] (AUGMENTIN) 00 (two) Medical 875-125 mg times Branch per tablet daily. atorvastati 2020-0 Yes [id number] 20mg Take 1 [facility] n 20 mg 9-13 tablet by [facility] of tablet 00:00: mouth at [place] 00 bedtime. Medical [facility] carvediloL 2020-0 Yes [id number] 12.5mg Take 1 [facility] 12.5 mg 9-13 tablet by [facility] of tablet 00:00: mouth 2 00 (two) Medical times Branch daily with meals. aspirin 81 2020-0 Yes [id number] 81mg Take 1 [facility] mg chewable 9-13 tablet by [facility] of tablet 00:00: mouth [place] 00 daily. Medical [facility] amoxicillin 2020-0 Yes [id number] 1{tbl} Take 1 [facility] -clavulanat 9-13 tablet by [facility] e 00:00: mouth 2 [place] (AUGMENTIN) 00 (two) Medical 875-125 mg times Branch per tablet daily. atorvastati 2020-0 Yes [id number] 20mg Take 1 [facility] n 20 mg 9-13 tablet by [facility] of tablet 00:00: mouth at [place] 00 bedtime. Medical [facility] carvediloL 2020-0 Yes [id number] 12.5mg Take 1 [facility] 12.5 mg 9-13 tablet by [facility] of tablet 00:00: mouth 2 [place] 00 (two) Medical times Branch daily with meals. aspirin 81 2020-0 Yes [id number] 81mg Take 1 [facility] mg chewable 9-13 tablet by [facility] of tablet 00:00: mouth [place] 00 daily. Medical Branch amoxicillin 2020-0 Yes [id number] 1{tbl} Take 1 [facility] -clavulanat 9-13 tablet by [facility] e 00:00: mouth 2 [place] (AUGMENTIN) 00 (two) Medical 875-125 mg times Branch per tablet daily. atorvastati 2020-0 Yes [id number] 20mg Take 1 [facility] n 20 mg 9-13 tablet by [facility] of tablet 00:00: mouth at [place] 00 bedtime. Medical Branch carvediloL 2020-0 Yes [id number] 12.5mg Take 1 [facility] 12.5 mg 9-13 tablet by [facility] of tablet 00:00: mouth 2 (two) Medical times Branch daily with meals. aspirin 81 2020-0 Yes [id number] 81mg Take 1 [facility] mg chewable 9-13 tablet by [facility] of tablet 00:00: mouth [place] 00 daily. Medical Branch amoxicillin 2020-0 Yes [id number] 1{tbl} Take 1 [facility] -clavulanat 9-13 tablet by [facility] e 00:00: mouth 2 [place] (AUGMENTIN) 00 (two) Medical 875-125 mg times Branch per tablet daily. atorvastati 2020-0 Yes [id number] 20mg Take 1 [facility] n 20 mg 9-13 tablet by [facility] of tablet 00:00: mouth at [place] 00 bedtime. Medical [facility] carvediloL 2020-0 Yes [id number] 12.5mg Take 1 [facility] 12.5 mg 9-13 tablet by [facility] of tablet 00:00: mouth 2 [place] 00 (two) Medical times Branch daily with meals. aspirin 81 2020-0 Yes [id number] 81mg Take 1 [facility] mg chewable 9-13 tablet by [facility] of tablet 00:00: mouth [place] 00 daily. Medical Branch amoxicillin 2020-0 Yes [id number] 1{tbl} Take 1 [facility] -clavulanat 9-13 tablet by [facility] e 00:00: mouth 2 (AUGMENTIN) 00 (two) Medical 875-125 mg times Branch per tablet daily. atorvastati 2020-0 Yes [id number] 20mg Take 1 [facility] n 20 mg 9-13 tablet by [facility] of tablet 00:00: mouth at [place] 00 bedtime. Medical [facility] carvediloL 2020-0 Yes [id number] 12.5mg Take 1 [facility] 12.5 mg 9-13 tablet by [facility] of tablet 00:00: mouth 2 (two) Medical times Branch daily with meals. aspirin 81 2020-0 Yes [id number] 81mg Take 1 [facility] mg chewable 9-13 tablet by [facility] of tablet 00:00: mouth 00 daily. [facility] amoxicillin 2020-0 Yes [id number] 1{tbl} Take 1 [facility] -clavulanat 9-13 tablet by [facility] e 00:00: mouth 2 (AUGMENTIN) 00 (two) Medical 875-125 mg times Branch per tablet daily. atorvastati 2020-0 Yes [id number] 20mg Take 1 [facility] n 20 mg 9-13 tablet by [facility] of tablet 00:00: mouth at [place] 00 bedtime. Medical [facility] carvediloL 2020-0 Yes [id number] 12.5mg Take 1 [facility] 12.5 mg 9-13 tablet by [facility] of tablet 00:00: mouth 2 (two) Medical times Branch daily with meals. aspirin 81 2020-0 Yes [id number] 81mg Take 1 [facility] mg chewable 9-13 tablet by [facility] of tablet 00:00: mouth [place] 00 daily. [facility] amoxicillin 2020-0 Yes [id number] 1{tbl} Take 1 [facility] -clavulanat 9-13 tablet by [facility] of e 00:00: mouth 2 (AUGMENTIN) 00 (two) Medical 875-125 mg times Branch per tablet daily. atorvastati 2020-0 Yes [id number] 20mg Take 1 [facility] n 20 mg 9-13 tablet by [facility] of tablet 00:00: mouth at [place] 00 bedtime. Medical [facility] carvediloL 2020-0 Yes [id number] 12.5mg Take 1 [facility] 12.5 mg 9-13 tablet by [facility] of tablet 00:00: mouth 2 00 (two) Medical times Branch daily with meals. aspirin 81 2020-0 Yes [id number] 81mg Take 1 [facility] mg chewable 9-13 tablet by [facility] of tablet 00:00: mouth [place] 00 daily. Medical [facility] amoxicillin 2020-0 Yes [id number] 1{tbl} Take 1 [facility] -clavulanat 9-13 tablet by [facility] of e 00:00: mouth 2 [place] (AUGMENTIN) 00 (two) Medical 875-125 mg times Branch per tablet daily. atorvastati 2020-0 Yes [id number] 20mg Take 1 [facility] n 20 mg 9-13 tablet by [facility] of tablet 00:00: mouth at [place] 00 bedtime. Medical Branch carvediloL 2020-0 Yes [id number] 12.5mg Take 1 [facility] 12.5 mg 9-13 tablet by [facility] of tablet 00:00: mouth 2 (two) Medical times Branch daily with meals. aspirin 81 2020-0 Yes [id number] 81mg Take 1 [facility] mg chewable 9-13 tablet by [facility] of tablet 00:00: mouth [place] 00 daily. [facility] amoxicillin 2020-0 Yes [id number] 1{tbl} Take 1 [facility] -clavulanat 9-13 tablet by [facility] of e 00:00: mouth 2 [place] (AUGMENTIN) 00 (two) Medical 875-125 mg times Branch per tablet daily. atorvastati 2020-0 Yes [id number] 20mg Take 1 [facility] n 20 mg 9-13 tablet by [facility] of tablet 00:00: mouth at [place] 00 bedtime. Medical [facility] carvediloL 2020-0 Yes [id number] 12.5mg Take 1 [facility] 12.5 mg 9-13 tablet by [facility] of tablet 00:00: mouth 2 [place] 00 (two) Medical times Branch daily with meals. aspirin 81 2020-0 Yes [id number] 81mg Take 1 [facility] mg chewable 9-13 tablet by [facility] of tablet 00:00: mouth [place] 00 daily. Medical Branch amoxicillin 2020-0 Yes [id number] 1{tbl} Take 1 [facility] -clavulanat 9-13 tablet by ity of e 00:00: mouth 2 [place] (AUGMENTIN) 00 (two) Medical 875-125 mg times Branch per tablet daily. atorvastati 2020-0 Yes [id number] 20mg Take 1 [facility] n 20 mg 9-13 tablet by ity of tablet 00:00: mouth at [place] 00 bedtime. Medical Branch carvediloL 2020-0 Yes [id number] 12.5mg Take 1 [facility] 12.5 mg 9-13 tablet by ity of tablet 00:00: mouth 2 [place] 00 (two) Medical times Branch daily with meals. aspirin 81 2020-0 Yes [id number] 81mg Take 1 [facility] mg chewable 9-13 tablet by ity of tablet 00:00: mouth [place] 00 daily. Medical Branch amoxicillin 2020-0 Yes [id number] 1{tbl} Take 1 [facility] -clavulanat 9-13 tablet by ity of e 00:00: mouth 2 [place] (AUGMENTIN) 00 (two) Medical 875-125 mg times Branch per tablet daily. atorvastati 2020-0 Yes [id number] 20mg Take 1 [facility] n 20 mg 9-13 tablet by ity of tablet 00:00: mouth at [place] 00 bedtime. Medical Branch carvediloL 2020-0 Yes [id number] 12.5mg Take 1 [facility] 12.5 mg 9-13 tablet by ity of tablet 00:00: mouth 2 (two) Medical times Branch daily with meals. aspirin 81 2020-0 Yes [id number] 81mg Take 1 [facility] mg chewable 9-13 tablet by ity of tablet 00:00: mouth [place] 00 daily. Medical Branch amoxicillin 2020-0 Yes [id number] 1{tbl} Take 1 [facility] -clavulanat 9-13 tablet by ity of e 00:00: mouth 2 [place] (AUGMENTIN) 00 (two) Medical 875-125 mg times Branch per tablet daily. atorvastati 2020-0 Yes [id number] 20mg Take 1 [facility] n 20 mg 9-13 tablet by ity of tablet 00:00: mouth at [place] 00 bedtime. Medical Branch carvediloL 2020-0 Yes [id number] 12.5mg Take 1 [facility] 12.5 mg 9-13 tablet by ity of tablet 00:00: mouth 2 [place] 00 (two) Medical times Branch daily with meals. aspirin 81 2020-0 Yes [id number] 81mg Take 1 [facility] mg chewable 9-13 tablet by ity of tablet 00:00: mouth [place] 00 daily. Medical Branch amoxicillin 2020-0 Yes [id number] 1{tbl} Take 1 [facility] -clavulanat 9-13 tablet by ity of e 00:00: mouth 2 (AUGMENTIN) 00 (two) Medical 875-125 mg times Branch per tablet daily. atorvastati 2020-0 Yes [id number] 20mg Take 1 [facility] n 20 mg 9-13 tablet by ity of tablet 00:00: mouth at [place] 00 bedtime. Medical Branch carvediloL 2020-0 Yes [id number] 12.5mg Take 1 [facility] 12.5 mg 9-13 tablet by ity of tablet 00:00: mouth 2 (two) Medical times Branch daily with meals. aspirin 81 2020-0 Yes [id number] 81mg Take 1 [facility] mg chewable 9-13 tablet by ity of tablet 00:00: mouth 00 daily. Medical Branch amoxicillin 2020-0 Yes [id number] 1{tbl} Take 1 [facility] -clavulanat 9-13 tablet by ity of e 00:00: mouth 2 (AUGMENTIN) 00 (two) Medical 875-125 mg times Branch per tablet daily. atorvastati 2020-0 Yes [id number] 20mg Take 1 [facility] n 20 mg 9-13 tablet by ity of tablet 00:00: mouth at [place] 00 bedtime. Medical Branch carvediloL 2020-0 Yes [id number] 12.5mg Take 1 [facility] 12.5 mg 9-13 tablet by ity of tablet 00:00: mouth 2 (two) Medical times Branch daily with meals. aspirin 81 2020-0 Yes [id number] 81mg Take 1 [facility] mg chewable 9-13 tablet by ity of tablet 00:00: mouth [place] 00 daily. Medical Branch amoxicillin 2020-0 Yes [id number] 1{tbl} Take 1 [facility] -clavulanat 9-13 tablet by ity of e 00:00: mouth 2 (AUGMENTIN) 00 (two) Medical 875-125 mg times Branch per tablet daily. atorvastati 2020-0 Yes [id number] 20mg Take 1 [facility] n 20 mg 9-13 tablet by ity of tablet 00:00: mouth at [place] 00 bedtime. Medical Branch carvediloL 2020-0 Yes [id number] 12.5mg Take 1 [facility] 12.5 mg 9-13 tablet by ity of tablet 00:00: mouth 2 (two) Medical times Branch daily with meals. aspirin 81 2020-0 Yes [id number] 81mg Take 1 [facility] mg chewable 9-13 tablet by ity of tablet 00:00: mouth [place] 00 daily. Medical Branch amoxicillin 2020-0 Yes [id number] 1{tbl} Take 1 [facility] -clavulanat 9-13 tablet by ity of e 00:00: mouth 2 [place] (AUGMENTIN) 00 (two) Medical 875-125 mg times Branch per tablet daily. atorvastati 2020-0 Yes [id number] 20mg Take 1 [facility] n 20 mg 9-13 tablet by ity of tablet 00:00: mouth at [place] 00 bedtime. Medical Branch carvediloL 2020-0 Yes [id number] 12.5mg Take 1 [facility] 12.5 mg 9-13 tablet by ity of tablet 00:00: mouth 2 (two) Medical times Branch daily with meals. aspirin 81 2020-0 Yes [id number] 81mg Take 1 [facility] mg chewable 9-13 tablet by ity of tablet 00:00: mouth [place] 00 daily. Medical Branch amoxicillin 2020-0 Yes [id number] 1{tbl} Take 1 [facility] -clavulanat 9-13 tablet by ity of e 00:00: mouth 2 [place] (AUGMENTIN) 00 (two) Medical 875-125 mg times Branch per tablet daily. atorvastati 2020-0 Yes [id number] 20mg Take 1 [facility] n 20 mg 9-13 tablet by ity of tablet 00:00: mouth at [place] 00 bedtime. Medical Branch carvediloL 2020-0 Yes [id number] 12.5mg Take 1 [facility] 12.5 mg 9-13 tablet by ity of tablet 00:00: mouth 2 00 (two) Medical times Branch daily with meals. aspirin 81 2020-0 Yes [id number] 81mg Take 1 [facility] mg chewable 9-13 tablet by ity of tablet 00:00: mouth [place] 00 daily. Medical Branch amoxicillin 2020-0 Yes [id number] 1{tbl} Take 1 [facility] -clavulanat 9-13 tablet by ity of e 00:00: mouth 2 [place] (AUGMENTIN) 00 (two) Medical 875-125 mg times Branch per tablet daily. atorvastati 2020-0 Yes [id number] 20mg Take 1 [facility] n 20 mg 9-13 tablet by ity of tablet 00:00: mouth at [place] 00 bedtime. Medical Branch carvediloL 2020-0 Yes [id number] 12.5mg Take 1 [facility] 12.5 mg 9-13 tablet by ity of tablet 00:00: mouth 2 00 (two) Medical times Branch daily with meals. aspirin 81 2020-0 Yes [id number] 81mg Take 1 [facility] mg chewable 9-13 tablet by ity of tablet 00:00: mouth [place] 00 daily. Medical Branch amoxicillin 2020-0 Yes [id number] 1{tbl} Take 1 [facility] -clavulanat 9-13 tablet by ity of e 00:00: mouth 2 [place] (AUGMENTIN) 00 (two) Medical 875-125 mg times Branch per tablet daily. atorvastati 2020-0 Yes [id number] 20mg Take 1 [facility] n 20 mg 9-13 tablet by ity of tablet 00:00: mouth at [place] 00 bedtime. Medical Branch carvediloL 2020-0 Yes [id number] 12.5mg Take 1 [facility] 12.5 mg 9-13 tablet by ity of tablet 00:00: mouth 2 (two) Medical times Branch daily with meals. aspirin 81 2020-0 Yes [id number] 81mg Take 1 [facility] mg chewable 9-13 tablet by ity of tablet 00:00: mouth [place] 00 daily. Medical Branch amoxicillin 2020-0 Yes [id number] 1{tbl} Take 1 [facility] -clavulanat 9-13 tablet by ity of e 00:00: mouth 2 [place] (AUGMENTIN) 00 (two) Medical 875-125 mg times Branch per tablet daily. atorvastati 2020-0 Yes [id number] 20mg Take 1 [facility] n 20 mg 9-13 tablet by ity of tablet 00:00: mouth at [place] 00 bedtime. Medical Branch carvediloL 2020-0 Yes [id number] 12.5mg Take 1 [facility] 12.5 mg 9-13 tablet by ity of tablet 00:00: mouth 2 [place] 00 (two) Medical times Branch daily with meals. aspirin 81 2020-0 Yes [id number] 81mg Take 1 [facility] mg chewable 9-13 tablet by ity of tablet 00:00: mouth [place] 00 daily. Medical Branch amoxicillin 2020-0 Yes [id number] 1{tbl} Take 1 [facility] -clavulanat 9-13 tablet by ity of e 00:00: mouth 2 [place] (AUGMENTIN) 00 (two) Medical 875-125 mg times Branch per tablet daily. atorvastati 2020-0 Yes [id number] 20mg Take 1 [facility] n 20 mg 9-13 tablet by ity of tablet 00:00: mouth at [place] 00 bedtime. Medical Branch carvediloL 2020-0 Yes [id number] 12.5mg Take 1 [facility] 12.5 mg 9-13 tablet by ity of tablet 00:00: mouth 2 00 (two) Medical times Branch daily with meals. aspirin 81 2020-0 Yes [id number] 81mg Take 1 [facility] mg chewable 9-13 tablet by ity of tablet 00:00: mouth [place] 00 daily. Medical Branch amoxicillin 2020-0 Yes [id number] 1{tbl} Take 1 [facility] -clavulanat 9-13 tablet by ity of e 00:00: mouth 2 [place] (AUGMENTIN) 00 (two) Medical 875-125 mg times Branch per tablet daily. atorvastati 2020-0 Yes [id number] 20mg Take 1 [facility] n 20 mg 9-13 tablet by ity of tablet 00:00: mouth at [place] 00 bedtime. Medical Branch carvediloL 2020-0 Yes [id number] 12.5mg Take 1 [facility] 12.5 mg 9-13 tablet by ity of tablet 00:00: mouth 2 00 (two) Medical times Branch daily with meals. aspirin 81 2020-0 Yes [id number] 81mg Take 1 [facility] mg chewable 9-13 tablet by ity of tablet 00:00: mouth [place] 00 daily. Medical Branch amoxicillin 2020-0 Yes [id number] 1{tbl} Take 1 [facility] -clavulanat 9-13 tablet by ity of e 00:00: mouth 2 [place] (AUGMENTIN) 00 (two) Medical 875-125 mg times Branch per tablet daily. atorvastati 2020-0 Yes [id number] 20mg Take 1 [facility] n 20 mg 9-13 tablet by ity of tablet 00:00: mouth at [place] 00 bedtime. Medical Branch carvediloL 2019- Yes [id number] 12.5mg Take 1 [facility] 12.5 mg 9-13 tablet by ity of tablet 00:00: mouth 2 [place] 00 (two) Medical times Branch daily with meals. aspirin 81 Yes [id number] 81mg Take 1 [facility] mg chewable 9-13 tablet by ity of tablet 00:00: mouth [place] 00 daily. Medical Branch aspirin 81 2022- No [id number] 81mg Take 1 [facility] mg chewable 9-13 01-09 tablet by it y of tablet 00:00: 00:00 mouth [place] 00 :00 daily. Medical Branch carvediloL 2021- No [id number] 12.5mg Take 1 [facility] 12.5 mg 9-13 12-29 tablet by ity of tablet 00:00: 00:00 mouth 2 [place] 00 :00 (two) Medical times Branch daily with meals. carvediloL 2021- No [id number] 12.5mg Take 1 [facility] 12.5 mg 9-13 12-29 tablet by ity of tablet 00:00: 00:00 mouth 2 [place] 00 :00 (two) Medical times Branch daily with meals. carvediloL 2021- No [id number] 12.5mg Take 1 [facility] 12.5 mg 9-13 12-29 tablet by ity of tablet 00:00: 00:00 mouth 2 [place] 00 :00 (two) Medical times Branch daily with meals. carvediloL 2021- No [id number] 12.5mg Take 1 [facility] 12.5 mg 9-13 12-29 tablet by ity of tablet 00:00: 00:00 mouth 2 [place] 00 :00 (two) Medical times Branch daily with meals. amoxicillin 2021- No [id number] 1{tbl} Take 1 [facility] -clavulanat 9-13 12-15 tablet by it y of e 00:00: 00:00 mouth 2 [place] (AUGMENTIN) 00 :00 (two) Medical 875-125 mg times Branch per tablet daily. amoxicillin 2021- No [id number] 1{tbl} Take 1 [facility] -clavulanat 9-13 12-15 tablet by it y of e 00:00: 00:00 mouth 2 [place] (AUGMENTIN) 00 :00 (two) Medical 875-125 mg times Branch per tablet daily. amoxicillin 2019-0 2021- No [id number] 1{tbl} Take 1 [facility] -clavulanat 9-13 12-15 tablet by it y of e 00:00: 00:00 mouth 2 [place] (AUGMENTIN) 00 :00 (two) Medical 875-125 mg times Branch per tablet daily. amoxicillin 2019-2021- No [id number] 1{tbl} Take 1 [facility] -clavulanat 9-13 12-15 tablet by it y of e 00:00: 00:00 mouth 2 [place] (AUGMENTIN) 00 :00 (two) Medical 875-125 mg times Branch per tablet daily. HYDROcodone 2019- No [id number] 1{tbl} Take 1 U nivers -acetaminop 9-13 09-22 tablet by it y of hen (NORCO) 00:00: 00:00 mouth [place] 5-325 mg 00 :00 every 6 Medical tablet (six) Branch hours as needed for Pain (scale 7-10). Indication s: acute pain HYDROcodone 2019-2019- No [id number] 1{tbl} Take 1 U nivers -acetaminop 9-13 09-22 tablet by it y of hen (NORCO) 00:00: 00:00 mouth [place] 5-325 mg 00 :00 every 6 Medical tablet (six) Branch hours as needed for Pain (scale 7-10). Indication s: acute pain amoxicillin 2019-0 Yes 1{tbl} 1 tablet, [facility] -clavulanat 9-09 Oral, ity of e 23:00: Q12H, [place] (AUGMENTIN) 00 First dose Me dical 875-125 mg on Thu Branch per tablet 12/07/19 at 1 tablet 1800, Until Discontinu ed, Routine
Reason for Anti-Infec tive: Documented Infection< br>Documen alex Infection Site: Skin / Soft Tissue<br& gt;Duratio n of Therapy: 14 days HYDROcodone 2020-0 Yes 1{tbl} 1 tablet, [facility] -acetaminop 9-09 Oral, Q6H, it y of hen (NORCO [...] Pain (scale 4-6) amoxicillin 2019-0 2020- No [id number] 1{tbl} Take 1 [facility] -clavulanat 12-06 tablet by it y of e 00:00: 04:59 mouth 2 [place] (AUGMENTIN) 00 :00 (two) Medical 875-125 mg times Branch per tablet daily for 14 days. ibuprofen 2020-0 2020- No [id number] 400mg Take 2 [facility] 200 mg 12-06 tablets by ity of tablet 00:00: 04:59 mouth [place] 00 :00 every 6 Medical (six) Branch hours as needed for Pain (scale 1-3) or Pain (scale 4-6) for up to 14 days. acetaminoph 2020-0 2020- No [id number] 650mg Take 2 [facility] en 325 mg 12-06 tablets by ity of tablet 00:00: 04:59 mouth [place] 00 :00 every 6 Medical (six) Branch hours as needed for Alternate with ibuprofen for pain scale 4-6 for up to 14 days. ibuprofen 2020-0 2020- No [id number] 400mg Take 2 [facility] 200 mg 12-06 tablets by ity of tablet 00:00: 04:59 mouth [place] 00 :00 every 6 Medical (six) Branch hours as needed for Pain (scale 1-3) or Pain (scale 4-6) for up to 14 days. acetaminoph 2020-0 2020- No [id number] 650mg Take 2 [facility] en 325 mg 12-06 tablets by ity of tablet 00:00: 04:59 mouth [place] 00 :00 every 6 Medical (six) Branch hours as needed for Alternate with ibuprofen for pain scale 4-6 for up to 14 days. ibuprofen 2020-0 2020- No [id number] 400mg Take 2 [facility] 200 mg 12-0624 tablets by ity of tablet 00:00: 04:59 mouth [place] 00 :00 every 6 Medical (six) Branch hours as needed for Pain (scale 1-3) or Pain (scale 4-6) for up to 14 days. acetaminoph 2020-0 2020- No [id number] 650mg Take 2 [facility] en 325 mg 12-0624 tablets by ity of tablet 00:00: 04:59 mouth [place] 00 :00 every 6 Medical (six) Branch hours as needed for Alternate with ibuprofen for pain scale 4-6 for up to 14 days. ibuprofen 2020-0 2020- No [id number] 400mg Take 2 [facility] 200 mg 12-0624 tablets by ity of tablet 00:00: 04:59 mouth [place] 00 :00 every 6 Medical (six) Branch hours as needed for Pain (scale 1-3) or Pain (scale 4-6) for up to 14 days. acetaminoph 2019-0 2020- No [id number] 650mg Take 2 [facility] en 325 mg 12-0624 tablets by ity of tablet 00:00: 04:59 mouth [place] 00 :00 every 6 Medical (six) Branch hours as needed for Alternate with ibuprofen for pain scale 4-6 for up to 14 days. ibuprofen 2020-0 2020- No [id number] 400mg Take 2 [facility] 200 mg 12-0624 tablets by ity of tablet 00:00: 04:59 mouth [place] 00 :00 every 6 Medical (six) Branch hours as needed for Pain (scale 1-3) or Pain (scale 4-6) for up to 14 days. acetaminoph 2019-0 2020- No [id number] 650mg Take 2 [facility] en 325 mg 12-0624 tablets by ity of tablet 00:00: 04:59 mouth [place] 00 :00 every 6 Medical (six) Branch hours as needed for Alternate with ibuprofen for pain scale 4-6 for up to 14 days. ibuprofen 2020-0 2020- No [id number] 400mg Take 2 [facility] 200 mg 12-0624 tablets by ity of tablet 00:00: 04:59 mouth [place] 00 :00 every 6 Medical (six) Branch hours as needed for Pain (scale 1-3) or Pain (scale 4-6) for up to 14 days. acetaminoph 2020-0 2020- No [id number] 650mg Take 2 Univers en 325 mg 12-0624 tablets by ity of tablet 00:00: 04:59 mouth [place] 00 :00 every 6 Medical (six) Branch hours as needed for Alternate with ibuprofen for pain scale 4-6 for up to 14 days. ibuprofen 2020-0 2020- No [id number] 400mg Take 2 [facility] 200 mg 12-06 tablets by ity of tablet 00:00: 04:59 mouth [place] 00 :00 every 6 Medical (six) Branch hours as needed for Pain (scale 1-3) or Pain (scale 4-6) for up to 14 days. acetaminoph 2020-0 2020- No [id number] 650mg Take 2 Univers en 325 mg 12-06 tablets by ity of tablet 00:00: 04:59 mouth [place] 00 :00 every 6 Medical (six) Branch hours as needed for Alternate with ibuprofen for pain scale 4-6 for up to 14 days. ibuprofen 2019-0 2020- No [id number] 400mg Take 2 [facility] 200 mg 12-06 tablets by ity of tablet 00:00: 04:59 mouth [place] 00 :00 every 6 Medical (six) Branch hours as needed for Pain (scale 1-3) or Pain (scale 4-6) for up to 14 days. acetaminoph 2020-0 2020- No [id number] 650mg Take 2 Univers en 325 mg 12-06 tablets by ity of tablet 00:00: 04:59 mouth [place] 00 :00 every 6 Medical (six) Branch hours as needed for Alternate with ibuprofen for pain scale 4-6 for up to 14 days. ibuprofen 2020-0 2020- No [id number] 400mg Take 2 [facility] 200 mg 12-06 tablets by ity of tablet 00:00: 04:59 mouth [place] 00 :00 every 6 Medical (six) Branch hours as needed for Pain (scale 1-3) or Pain (scale 4-6) for up to 14 days. acetaminoph 2020-0 2020- No [id number] 650mg Take 2 Univers en 325 mg 12-06 tablets by ity of tablet 00:00: 04:59 mouth [place] 00 :00 every 6 Medical (six) Branch hours as needed for Alternate with ibuprofen for pain scale 4-6 for up to 14 days. amoxicillin 2020-0 2020- No [id number] 1{tbl} Take 1 Univers -clavulanat 12-06 tablet by it y of e 00:00: 04:59 mouth 2 [place] (AUGMENTIN) 00 :00 (two) Medical 875-125 mg times Branch per tablet daily for 14 days. ibuprofen 2019- No [id number] 400mg Take 2 [facility] 200 mg 12-06 tablets by ity of tablet 00:00: 04:59 mouth [place] 00 :00 every 6 Medical (six) Branch hours as needed for Pain (scale 1-3) or Pain (scale 4-6) for up to 14 days. acetaminoph No [id number] 650mg Take 2 Univers en 325 mg 12-06 tablets by ity of tablet 00:00: 04:59 mouth [place] 00 :00 every 6 Medical (six) Branch hours as needed for Alternate with ibuprofen for pain scale 4-6 for up to 14 days. HYDROcodone No [id number] 1{tbl} Take 1 U nivers -acetaminop 12-06 tablet by it y of hen ([place]) 00:00: 04:59 mouth [place] 5-325 mg 00 :00 every 6 Medical tablet (six) Branch hours as needed for Pain (scale 7-10) for up to 5 days. Indication s: acute pain HYDROcodone No 4647 1{tbl} Take 1 U nivers -acetaminop 12-06 tablet by it y of hen (NORCO) 00:00: 04:59 mouth [place] 5-325 mg 00 :00 every 6 Medical tablet (six) Branch hours as needed for Pain (scale 7-10) for up to 5 days. Indication s: acute pain amoxicillin 2019- No [id number] 1{tbl} Take 1 Univers -clavulanat 12-06 tablet by it y of e 00:00: 00:00 mouth 2 [place] (AUGMENTIN) 00 :00 (two) Medical 875-125 mg times Branch per tablet daily for 14 days. HYDROcodone No 4647 1{tbl} Take 1 U nivers [...] y of ) injection 17:22: s, Q6HPRN, [place] 5 mg 01 Starting Medical 12/04/19 Branch at 1222, Until Discontinu ed, Routine, SBP >160 KCL 2019-0 2020- No 40meq 40 mEq, Univers (KLOR-CON 12-03 Oral, ity of M20) tablet 13:00: 14:03 ONCE, 1 [place] 40 mEq 00 :00 dose, [facility] 12/04/19 at Branch 0800, CHARMAINE insulin 2020-0 Yes 17U 17 Units, Unive rs glargine 12-03 Subcutaneo ity o f (LANTUS 02:00: us, [facility], [place] U-100) 00 First dose Medical injection (after Branch 17 Units last modificati on) on 12/03/19 at 2100, Until Discontinu ed, Routine insulin 2020-0 Yes 6U 6 Units, Univer s aspart 12-02 Subcutaneo ity of RAPID 16:30: , [place], [place] (NOVOLOG) 00 First dose Medi shade injection 6 (after Branch Units last modificati on) on 12/03/19 at 1130, Until Discontinu ed, Routine ampicillin- 2020-0 2020- No 3g 3 g, IV Un [...] days lisinopriL 2020-0 Yes 40mg 40 mg, Unive rs (PRINIVIL,Z 12-02 Oral, QPM ity of ESTRIL) 01:00: AT 1999, [place] tablet 40 00 First dose Medi shade mg (after Branch last modificati on) on Thu12/02/19 at 1999, Until Discontinu ed, Routine HYDROcodone 2020-0 2020- No 1{tbl} 1 tablet, Univers -acetaminop 12-01 Oral, ity of hen (NORCO 19:33: 20:50 Q6HPRN, [place] 5) 5-325 mg 48 :39 Starting Medi shade tablet 1 Thu12/02/19 Branc h tablet at 1433, Until Thu12/07/19 at 1550, Routine, Pain (scale 4-6) acetaminoph 2020-0 2020- No 650mg 650 mg, U nivers en 12-01 Oral, ity of (TYLENOL) 19:33: 20:51 Q6HPRN, [place] tablet 650 18 :11 Starting Medic al mg Thu12/02/19 Branch at 1433, Until Thu12/07/19 at 1551, Routine, Pain (scale 1-3) lisinopriL 2020-0 2020- No 20mg 20 mg, Univ ers (PRINIVIL,Z 12-01 Oral, QPM it y of ESTRIL) 01:00: 13:53 AT 1999, [place] tablet 20 00 :13 First dose Medi shade mg (after Branch last modificati on) on Thu12/01/19 at 1999, Until Discontinu ed, Routine KCL 2020-0 2020- No 40meq 40 mEq, Univers (KLOR-CON 11-30 Oral, ONCE ity of M20) tablet 11:30: 14:15 NOW, 1 [place] 40 mEq 00 :00 dose, [facility] 12/01/19 at Branch 0630, Routine carvediloL [...] insulin 2020-0 2020- No 15U 15 Units, [facility] ers glargine 11-29 Subcutaneo ity of (LANTUS 02:00: 15:07 us, [facility], [place] U-100) 00 :18 First dose Medical injection (after Branch 15 Units last modificati on) on Thu11/29/19 at 2100, Until Discontinu ed, Routine insulin 2020-0 2020- No 4U 4 Units, [facility] rs aspart 11-28 Subcutaneo ity of RAPID 21:30: 13:24 , [place], [place] (NOVOLOG) 00 :17 First dose Medi shade injection 4 (after Branch Units last modificati on) on Thu11/29/19 at 1630, Until Discontinu ed, Routine potassium 2020-0 2020- No 20meq 20 mEq, IV Univers chloride 20 11-28 Piggyback, i ty of mEq/100 mL 18:45: 22:38 ONCE, 1 [place] (KCL) 20 00 :00 dose, [facility] Medica l mEq/100 mL 11/29/19 at [facility] RTU IVPB 20 1345, 100 mEq mL KCL 2020-0 2020- No 40meq 40 mEq, Univers (KLOR-CON 11-28 Oral, ity of M20) tablet 17:10: 17:45 ONCE, 1 [place] 40 mEq 00 :00 dose, Thu11/29/19 at Branch 1215, Routine aspirin 2020-0 Yes 81mg 81 mg, Univers chewable 11-28 Oral, ity of tablet 81 14:00: DAILY, [place] mg 00 First dose Medical on Thu11/29/19 at 0900, Until Discontinu ed, Routine carvediloL 2020-0 2020- No 12.5mg 12.5 mg, Univers (COREG) 11-28 Oral, BID ity of tablet 12.5 13:00: 15:31 MEALS, [place] mg 00 :39 First dose Medical on [facility] 11/29/19 at 0800, Until Discontinu ed, Routine vancomycin 2020-0 2020- No 1250mg 1,250 mg, Univers 1250 mg in 11-28 IV ity of NS 250 mL 04:00: 13:28 Piggyback, [place] RTU IV 00 :57 Q12H ABX, Medical Piggyback First dose Bran ch 1,250 mg (after last modificati on) on [facility] 11/28/19 at 2300, Until Discontinu ed
Reas on for Anti-Infec tive: Empiric Therapy for Suspected Infection< br>Empiric Therapy Site: Skin / Soft tissue
Duration of therapy: 72 hours atorvastati 2020-0 Yes 20mg 20 mg, Univ ers n (LIPITOR) 11-28 Oral, QHS, it y of tablet 20 02:00: First dose [place] mg 00 on [facility] 11/28/19 at Branch 2100, Until Discontinu ed, Routine hydralAZINE 2019-0 2020- No 10mg 10 mg, Uni vers (APRESOLINE 11-28 Intravenou i ty of ) injection 01:53: 14:56 s, Q4HPRN, [place] 10 mg 17 :17 Starting Medical [facility] 11/28/19 at 2053, Until Thu12/02/19 at 0956, Routine, Hypertensi on, SBP > 160 mmHg hydralAZINE 2020-0 2020- No 5mg 5 mg, Univ ers (APRESOLINE 11-28 Intravenou i ty of ) injection 01:00: 01:54 s, Q4H, [place] 5 mg 00 :55 First dose Medical on [facility] 11/28/19 at 2000, Until Discontinu ed, Routine sodium 2020-0 Yes Topical, Univers hypochlorit 11-27 DAILY, ity of e 0.025% 14:00: First dose [place] as ([facility]) 00 on [facility] 11/28/19 at [facility] h 0900, Until Discontinu ed, Routine KCL 2020-0 2020- No 40meq 40 mEq, IV Unive rs (POTASSIUM 11-27 Piggyback, it y of CHLORIDE) 12:15: 13:19 ONCE, 1 [place] 40 mEq in 00 :00 dose, Mon Medic al NaCl 0.9% 11/28/19 at [facility] ch (NS) 0715, 250 piggyback mL KCL 2020-0 2020- No 40meq 40 mEq, Univers (KLOR-CON 11-27 Oral, ity of M20) tablet 12:15: 13:19 ONCE, 1 [place] 40 mEq 00 :00 dose, [facility] Medical 11/28/19 at Branch 0715, STAT ketorolac 2019-0 2020- No 15mg 15 mg, Unive rs (TORADOL) 11-27 Slow IV ity of injection 05:00: 04:59 Push, Q6H, [place] 15 mg 00 :00 4 doses, Medical First dose Branch on Thu11/28/19 at 0000, Last dose on Thu11/28/19 at 1800, Routine
choir member approving Restricted medication : P[place] YADIRA lactated 2020-0 Yes 1000mL at 42 Univer s ringers IV 8-31 mL/hr, ity of infusion 04:15: 1,000 mL, [place] 1,000 mL 00 IV Medical Infusion, Branch CONTINUOUS , Starting [place] 11/27/19 at 2315, Until Discontinu ed, Routine acetaminoph 2019-0 2020- No 1000mg 1,000 mg, Univers en ADULT 11-27 IV ity of (OFIRMEV) 03:00: 02:03 Infusion, [place] injection 00 :00 Administer Medi shade 1,000 mg over 15 Branch Minutes, Q8H, 3 doses, First dose on [place] 11/27/19 at 2200, Last dose on [facility] 11/28/19 at 1400, Routine
Indicatio n: Perioperat amando Patient morpHINE 2020-0 Yes 4mg 4 mg, Slow Uni vers injection 4 11-27 IV Push, ity of mg 02:57: Q4HPRN, [place] 24 Starting [facility] 11/27/19 at 2157, Until Discontinu ed, Routine, Pain (scale 7-10) KCL 2020-0 2020- No 40meq 40 mEq, IV Unive rs (POTASSIUM 11-26 Piggyback, it y of CHLORIDE) 11:23: 13:55 ONCE, 1 [place] 40 mEq in 00 :00 dose, [place] Medic al NaCl 0.9% 11/27/19 at [facility] ch (NS) 0630, 250 piggyback mL KCL 2019- No 40meq 40 mEq, Univers (KLOR-CON 11-26 Oral, ity of M20) tablet 11:22: 11:40 ONCE, 1 [place] 40 mEq 00 :00 dose, [facility] 11/27/19 at Branch 0630, Routine NaCl 0.9% 2019- No 1000mL at 50 [facility] ers (NS) IV 11-26 08-31 mL/hr, IV ity of infusion 04:15: 03:04 Infusion, [place] 1,000 mL 00 :30 CONTINUOUS Medic al , Starting Branch [facility] 11/26/19 at 2315, Until [place] 11/27/19 at 2204, Routine gadoteridol 2019- No .2mL/kg 12.62 mL Univers (PROHANCE-1 11-25 (0.2 mL/kg i ty of 5 mL) 21:30: 21:16 ?63.1 kg), [place] injection 00 :00 Intravenou Medi shade 12.62 mL s, ONCE, 1 Branc h dose, [facility] 11/26/19 at 1630, Routine vancomycin 2019- No 15mg/kg 1,000 mg Univers (VANCOCIN) 11-25 (rounded ity of 1,000 mg in 16:00: 01:50 from 946.5 [place] NaCl 0.9% 00 :30 mg = 15 Medical (NS) 250 mL mg/kg Branch VIAL-MATE ?63.1 kg), IV IV piggyback Piggyback, Q12H ABX, First dose on [facility] 11/26/19 at 1100, Until Discontinu ed, 250 mL
Reas on for Anti-Infec tive: Empiric Therapy for Suspected Infection< br>Empiric Therapy Site: Skin / Soft tissue
Duration of therapy: 72 hours lisinopriL 2019- No 20mg 20 mg, [facility] ers (PRINIVIL,Z 11-25 Oral, ity of ESTRIL) 14:00: 15:33 DAILY, [place] tablet 20 00 :58 First dose Medi shade mg on Sat Branch 11/26/19 at 0900, Until Discontinu ed, Routine enoxaparin 2019- 2020- No 40mg 40 mg, [facility] ers (LOVENOX) 11-2531 Subcutaneo ity of injection 14:00: 03:04 us, DAILY, [place] 40 mg 00 :30 First dose Medical on [facility] Branch 11/26/19 at 0900, Until Discontinu ed, Routine insulin 2020- 2020- No 3U 3 Units, [facility] aspart 11-25 Subcutaneo ity of RAPID 12:30: 17:09 , [place], [place] (NOVOLOG) 00 :27 First dose Medi shade injection 3 on [facility] Branch Units 11/26/19 at 0730, Until Discontinu ed, Routine piperacilli 2019-2019- No 3.375g 3.375 g, Univers n-tazobacta 11-25 IV ity of m (ZOSYN) 09:20: 13:28 Piggyback, [place] 3.375 g in 00 :57 Q6H ABX, Medic al NaCl 0.9% First dose Bran ch (NS) 100 mL on [facility] MINI-BAG 11/26/19 at 0430, Until Discontinu ed, 100 mL
R esmer for Anti-Infec tive: Documented Infection< br>Documen alex Infection Site: Skin / Soft Tissue
Duration of Therapy: 7 days Sliding 2019-0 Yes Subcutaneo [facility] ers Scale 11-25 us, Q4H, ity of Insulin - 09:00: First dose [place] Aspart 00 on [facility] Medical (NOVOLOG) + 11/26/19 at Br anch Fsbg 0400, Testing Until Discontinu ed, Routine insulin 2019- 2020- No 12U 12 Units, [facility] ers glargine 11-25 Subcutaneo ity of (LANTUS 08:00: 17:09 us, [facility], [place] U-100) 00 :27 First dose Medical injection on [facility] Branch 12 Units 11/26/19 at 0300, Until Discontinu ed, Routine NaCl 0.9% 2019- 2020- No 1000mL at 999 Uni vers (NS) bolus 11-25 mL/hr, ity of infusion 07:00: 07:03 1,000 mL, [place] 1,000 mL 00 :00 IV Medical Piggyback, Branch ONCE, 1 dose, 11/26/19 at 0200, STAT NaCl 0.9% 2019- 2020- No 1000mL at 125 Uni vers (NS) IV 11-25 08-30 mL/hr, IV ity of infusion 06:30: 04:04 Infusion, [place] 1,000 mL 00 :54 CONTINUOUS Medic al , Starting Branch 11/26/19 at 0130, Until 11/26/19 at 2304, Routine traMADoL 2019- 2020- No 50mg 50 mg, Univer s (ULTRAM) 11-25 Oral, ity of tablet 50 06:23: 02:57 Q8HPRN, [place] mg 27 :59 Starting Medical Sat Branch 11/26/19 at 0123, Until 11/27/19 at 2157, Routine, Pain (scale 4-6) NaCl 0.9% 2019-0 2020- No 1000mL at 125 Uni vers (NS) IV 11-25 mL/hr, ity of infusion 04:30: 15:10 Intravenou [place] 1,000 mL 00 :28 s, Medical CONTINUOUS Branch , Starting 11/25/19 at 2330, Until 11/26/19 at 1010, Routine insulin 2019- 2020- No 5U 5 Units, Unive rs regular 11-25 Subcutaneo ity o f human 04:30: 03:27 , ONCE, [place] (HUMULIN R) 00 :00 1 dose, Medic al injection 5 Fri Branch Units 11/25/19 at 2330, Routine piperacilli 2019- 2020- No 3.375g 3.375 g, Univers n-tazobacta 11-25 IV ity of m (ZOSYN) 04:30: 03:56 Piggyback, [place] 3.375 g in 00 :00 ONCE, 1 Medica l NaCl 0.9% dose, Fri Branc h (NS) 100 mL 11/25/19 at MINI-BAG 2330, 100 mL
Reas on for Anti-Infec tive: Documented Infection< br>Documen alex Infection Site: Skin / Soft Tissue
Duration of Therapy: Other (see Comments) vancomycin 2019-0 2020- No 1000mg 1,000 mg, Univers (VANCOCIN) 11-25 IV ity of 1,000 mg in 04:30: 15:09 [place], [place] NaCl 0.9% 00 :47 Q12H ABX, Medic al (NS) 250 mL First dose Br anch VIAL-MATE on Thu IV 11/25/19 at piggyback 2330, Until Discontinu ed, 250 mL
Reas on for Anti-Infec tive: Documented Infection< br>Documen alex Infection Site: Skin / Soft Tissue
Duration of Therapy: Other (see Comments) lisinopril Yes [id number] 20mg Take 1 Univers 20 mg 4-04 [id number] tablet by ity of tablet 00:00: mouth [place] 00 daily. [facility] lisinopril Yes [id number] 20mg Take 1 Univers 20 mg 4-04 [id number] tablet by ity of tablet 00:00: mouth [place] 00 daily. [facility] lisinopril Yes [id number] 20mg Take 1 Univers 20 mg 4-04 [id number] tablet by ity of tablet 00:00: mouth [place] 00 daily. [facility] lisinopril Yes [id number] 20mg Take 1 Univers 20 mg 4-04 [id number] tablet by ity of tablet 00:00: mouth [place] 00 daily. [facility] lisinopril Yes [id number] 20mg Take 1 Univers 20 mg 4-04 [id number] tablet by ity of tablet 00:00: mouth [place] 00 daily. [facility] lisinopril Yes [id number] 20mg Take 1 Univers 20 mg 4-04 [id number] tablet by ity of tablet 00:00: mouth [place] 00 daily. [facility] lisinopril Yes [id number] 20mg Take 1 Univers 20 mg 4-04 [id number] tablet by ity of tablet 00:00: mouth [place] 00 daily. [facility] lisinopril Yes [id number] 20mg Take 1 Univers 20 mg 4-04 [id number] tablet by ity of tablet 00:00: mouth [place] 00 daily. [facility] lisinopril Yes [id number] 20mg Take 1 Univers 20 mg 4-04 [id number] tablet by ity of tablet 00:00: mouth [place] 00 daily. [facility] lisinopril Yes [id number] 20mg Take 1 Univers 20 mg 4-04 [id number] tablet by ity of tablet 00:00: mouth [place] 00 daily. [facility] Branch lisinopril 2018-0 Yes [id number] 20mg Take 1 Univers 20 mg 4-04 [id number] tablet by ity of tablet 00:00: mouth [place] 00 daily. [facility] Branch lisinopril 2018-0 Yes [id number] 20mg Take 1 Univers 20 mg 4-04 [id number] tablet by ity of tablet 00:00: mouth [place] 00 daily. [facility] Branch lisinopril 2018-0 Yes [id number] 20mg Take 1 Univers 20 mg 4-04 [id number] tablet by ity of tablet 00:00: mouth [place] 00 daily. [facility] lisinopril 2018-0 Yes [id number] 20mg Take 1 Univers 20 mg 4-04 [id number] tablet by ity of tablet 00:00: mouth [place] 00 daily. [facility] lisinopril 2018-0 Yes [id number] 20mg Take 1 Univers 20 mg 4-04 [id number] tablet by ity of tablet 00:00: mouth [place] 00 daily. [facility] lisinopril 2018-0 Yes [id number] 20mg Take 1 Univers 20 mg 4-04 [id number] tablet by ity of tablet 00:00: mouth [place] 00 daily. [facility] lisinopril 2018-0 Yes [id number] 20mg Take 1 Univers 20 mg 4-04 [id number] tablet by ity of tablet 00:00: mouth [place] 00 daily. [facility] Branch lisinopril 2018-0 Yes [id number] 20mg Take 1 Univers 20 mg 4-04 [id number] tablet by ity of tablet 00:00: mouth [place] 00 daily. [facility] Branch lisinopril 2018-0 Yes [id number] 20mg Take 1 Univers 20 mg 4-04 [id number] tablet by ity of tablet 00:00: mouth [place] 00 daily. [facility] Branch lisinopril 2019-0 Yes [id number] 20mg Take 1 Univers 20 mg 4-04 [id number] tablet by ity of tablet 00:00: mouth [place] 00 daily. [facility] lisinopril 2018-0 Yes [id number] 20mg Take 1 Univers 20 mg 4-04 [id number] tablet by ity of tablet 00:00: mouth [place] 00 daily. [facility] lisinopril 2018-0 Yes [id number] 20mg Take 1 Univers 20 mg 4-04 [id number] tablet by ity of tablet 00:00: mouth [place] 00 daily. [facility] lisinopril 2019-0 Yes [id number] 20mg Take 1 Univers 20 mg 4-04 [id number] tablet by ity of tablet 00:00: mouth [place] 00 daily. [facility] lisinopril 2019-0 Yes [id number] 20mg Take 1 Univers 20 mg 4-04 [id number] tablet by ity of tablet 00:00: mouth [place] 00 daily. [facility] lisinopril 2019-0 Yes [id number] 20mg Take 1 Univers 20 mg 4-04 [id number] tablet by ity of tablet 00:00: mouth [place] 00 daily. [facility] lisinopril 2019-0 Yes [id number] 20mg Take 1 Univers 20 mg 4-04 [id number] tablet by ity of tablet 00:00: mouth [place] 00 daily. [facility] lisinopril 2018-0 Yes [id number] 20mg Take 1 Univers 20 mg 4-04 [id number] tablet by ity of tablet 00:00: mouth [place] 00 daily. [facility] lisinopril 2018-0 Yes [id number] 20mg Take 1 Univers 20 mg 4-04 [id number] tablet by ity of tablet 00:00: mouth [place] 00 daily. [facility] lisinopril 2019-0 Yes [id number] 20mg Take 1 Univers 20 mg 4-04 [id number] tablet by ity of tablet 00:00: mouth [place] 00 daily. [facility] lisinopril 2019-0 Yes [id number] 20mg Take 1 Univers 20 mg 4-04 [id number] tablet by ity of tablet 00:00: mouth [place] 00 daily. [facility] lisinopril 2019-0 Yes [id number] 20mg Take 1 Univers 20 mg 4-04 [id number] tablet by ity of tablet 00:00: mouth [place] 00 daily. [facility] lisinopril 2019-0 Yes [id number] 20mg Take 1 Univers 20 mg 4-04 [id number] tablet by ity of tablet 00:00: mouth [place] 00 daily. [facility] lisinopril 2019-0 Yes [id number] 20mg Take 1 Univers 20 mg 4-04 [id number] tablet by ity of tablet 00:00: mouth [place] 00 daily. [facility] lisinopril 2019-0 Yes [id number] 20mg Take 1 Univers 20 mg 4-04 [id number] tablet by ity of tablet 00:00: mouth [place] 00 daily. [facility] Branch lisinopril 2019-0 Yes [id number] 20mg Take 1 Univers 20 mg 4-04 [id number] tablet by ity of tablet 00:00: mouth [place] 00 daily. [facility] Branch lisinopril 2019-0 Yes [id number] 20mg Take 1 Univers 20 mg 4-04 [id number] tablet by ity of tablet 00:00: mouth [place] 00 daily. [facility] lisinopril 2019-0 Yes [id number] 20mg Take 1 Univers 20 mg 4-04 [id number] tablet by ity of tablet 00:00: mouth [place] 00 daily. [facility] lisinopril 2019-0 Yes [id number] 20mg Take 1 Univers 20 mg 4-04 [id number] tablet by ity of tablet 00:00: mouth [place] 00 daily. [facility] lisinopril 2018-0 Yes [id number] 20mg Take 1 Univers 20 mg 4-04 [id number] tablet by ity of tablet 00:00: mouth [place] 00 daily. [facility] lisinopril 2018-0 Yes [id number] 20mg Take 1 Univers 20 mg 4-04 [id number] tablet by ity of tablet 00:00: mouth [place] 00 daily. [facility] lisinopril 2019-0 Yes [id number] 20mg Take 1 Univers 20 mg 4-04 [id number] tablet by ity of tablet 00:00: mouth [place] 00 daily. [facility] lisinopril 2019-0 Yes [id number] 20mg Take 1 Univers 20 mg 4-04 [id number] tablet by ity of tablet 00:00: mouth [place] 00 daily. [facility] Branch lisinopril 2019-0 Yes [id number] 20mg Take 1 Univers 20 mg 4-04 [id number] tablet by ity of tablet 00:00: mouth [place] 00 daily. [facility] lisinopril 2019-0 Yes [id number] 20mg Take 1 [facility] 20 mg 4-04 [id number] tablet by ity of tablet 00:00: mouth [place] 00 daily. [facility] lisinopril 2019-0 Yes [id number] 20mg Take 1 Univers 20 mg 4-04 [id number] tablet by ity of tablet 00:00: mouth [place] 00 daily. [facility] lisinopril 2019-0 Yes [id number] 20mg Take 1 Univers 20 mg 4-04 [id number] tablet by ity of tablet 00:00: mouth [place] 00 daily. Medical Branch lisinopril 2019-0 Yes [id number] 20mg Take 1 [facility] 20 mg 4-04 [id number] tablet by ity of tablet 00:00: mouth [place] 00 daily. [facility] lisinopril 2018-0 Yes [id number] 20mg Take 1 Univers 20 mg 4-04 [id number] tablet by ity of tablet 00:00: mouth [place] 00 daily. [facility] lisinopril 2018-0 Yes [id number] 20mg Take 1 Univers 20 mg 4-04 [id number] tablet by ity of tablet 00:00: mouth [place] 00 daily. [facility] lisinopril 2018-0 Yes [id number] 20mg Take 1 Univers 20 mg 4-04 [id number] tablet by ity of tablet 00:00: mouth [place] 00 daily. [facility] lisinopril 2018-0 Yes [id number] 20mg Take 1 Univers 20 mg 4-04 [id number] tablet by ity of tablet 00:00: mouth [place] 00 daily. [facility] lisinopril 2018-0 Yes [id number] 20mg Take 1 [facility] 20 mg 4-04 [id number] tablet by ity of tablet 00:00: mouth [place] 00 daily. [facility] lisinopril 2018-0 Yes [id number] 20mg Take 1 Univers 20 mg 4-04 [id number] tablet by ity of tablet 00:00: mouth [place] 00 daily. [facility] lisinopril 2018-0 Yes [id number] 20mg Take 1 Univers 20 mg 4-04 [id number] tablet by ity of tablet 00:00: mouth [place] 00 daily. [facility] lisinopril 2018-0 Yes [id number] 20mg Take 1 Univers 20 mg 4-04 [id number] tablet by ity of tablet 00:00: mouth [place] 00 daily. [facility] lisinopril 2019-0 Yes [id number] 20mg Take 1 Univers 20 mg 4-04 [id number] tablet by ity of tablet 00:00: mouth [place] 00 daily. [facility] lisinopril 2019-0 Yes [id number] 20mg Take 1 Univers 20 mg 4-04 [id number] tablet by ity of tablet 00:00: mouth [place] 00 daily. [facility] lisinopril 2019-0 Yes [id number] 20mg Take 1 Univers 20 mg 4-04 [id number] tablet by ity of tablet 00:00: mouth [place] 00 daily. [facility] lisinopril Yes [id number] 20mg Take 1 Univers 20 mg 4-04 [id number] tablet by ity of tablet 00:00: mouth [place] 00 daily. [facility] lisinopril Yes [id number] 20mg Take 1 Univers 20 mg 4-04 [id number] tablet by ity of tablet 00:00: mouth [place] 00 daily. [facility] lisinopril Yes [id number] 20mg Take 1 [facility] 20 mg 4-04 [id number] tablet by ity of tablet 00:00: mouth [place] 00 daily. [facility] lisinopril Yes [id number] 20mg Take 1 Univers 20 mg 4-04 [id number] tablet by ity of tablet 00:00: mouth [place] 00 daily. [facility] lisinopril Yes [id number] 20mg Take 1 Univers 20 mg 4-04 [id number] tablet by ity of tablet 00:00: mouth [place] 00 daily. [facility] lisinopril 2021- No [id number] 20mg Take 1 Univers 20 mg 4-04 03-27 [id number] tablet by ity of tablet 00:00: 00:00 mouth [place] 00 :00 daily. [facility] lisinopril 2021- No [id number] 20mg Take 1 Univers 20 mg 4-04 03-27 [id number] tablet by ity of tablet 00:00: 00:00 mouth [place] 00 :00 daily. [facility] lisinopril 2021- No [id number] 20mg Take 1 Univers 20 mg 4-03-27 [id number] tablet by ity of tablet 00:00: 00:00 mouth [place] 00 :00 daily. [facility] lisinopril 2021- No [id number] 20mg Take 1 Univers 20 mg 4-04 03-27 [id number] tablet by ity of tablet 00:00: 00:00 mouth [place] 00 :00 daily. [facility] Branch metFORMIN Yes [id number] 1000mg Take 1 Univers 1,000 mg 4-03 [id number] tablet by ity of tablet 00:00: mouth 2 [place] 00 (two) Medical times Branch daily with meals. metFORMIN Yes [id number] 1000mg Take 1 Univers 1,000 mg 4-03 [id number] tablet by ity of tablet 00:00: mouth 2 [place] 00 (two) Medical times Branch daily with meals. metFORMIN 2019-0 Yes [id number] 1000mg Take 1 Univers 1,000 mg 4-03 [id number] tablet by ity of tablet 00:00: mouth (two) Medical times Branch daily with meals. metFORMIN 2019-0 Yes [id number] 1000mg Take 1 Univers 1,000 mg 4-03 [id number] tablet by ity of tablet 00:00: mouth (two) Medical times Branch daily with meals. metFORMIN 2019-0 Yes [id number] 1000mg Take 1 Univers 1,000 mg 4-03 [id number] tablet by ity of tablet 00:00: mouth (two) Medical times Branch daily with meals. metFORMIN 2019-0 Yes [id number] 1000mg Take 1 Univers 1,000 mg 4-03 [id number] tablet by ity of tablet 00:00: mouth (two) Medical times Branch daily with meals. metFORMIN 2019-0 Yes [id number] 1000mg Take 1 Univers 1,000 mg 4-03 [id number] tablet by ity of tablet 00:00: mouth (two) Medical times Branch daily with meals. metFORMIN 2019-0 Yes [id number] 1000mg Take 1 Univers 1,000 mg 4-03 [id number] tablet by ity of tablet 00:00: mouth (two) Medical times Branch daily with meals. metFORMIN 2019-0 Yes [id number] 1000mg Take 1 Univers 1,000 mg 4-03 [id number] tablet by ity of tablet 00:00: mouth (two) Medical times Branch daily with meals. metFORMIN 2019-0 Yes [id number] 1000mg Take 1 Univers 1,000 mg 4-03 [id number] tablet by ity of tablet 00:00: mouth (two) Medical times Branch daily with meals. metFORMIN 2019-0 Yes [id number] 1000mg Take 1 [facility] 1,000 mg 4-03 [id number] tablet by ity of tablet 00:00: mouth (two) Medical times Branch daily with meals. metFORMIN 2019-0 Yes [id number] 1000mg Take 1 Univers 1,000 mg 4-03 [id number] tablet by ity of tablet 00:00: mouth (two) Medical times Branch daily with meals. metFORMIN 2019-0 Yes [id number] 1000mg Take 1 [facility] 1,000 mg 4-03 [id number] tablet by ity of tablet 00:00: mouth (two) Medical times Branch daily with meals. metFORMIN 2019-0 Yes [id number] 1000mg Take 1 Univers 1,000 mg 4-03 [id number] tablet by ity of tablet 00:00: mouth (two) Medical times Branch daily with meals. metFORMIN 2019-0 Yes [id number] 1000mg Take 1 [facility] 1,000 mg 4-03 [id number] tablet by ity of tablet 00:00: mouth (two) Medical times Branch daily with meals. metFORMIN 2019-0 Yes [id number] 1000mg Take 1 Univers 1,000 mg 4-03 [id number] tablet by ity of tablet 00:00: mouth (two) Medical times Branch daily with meals. metFORMIN 2019-0 Yes [id number] 1000mg Take 1 Univers 1,000 mg 4-03 [id number] tablet by ity of tablet 00:00: mouth (two) Medical times Branch daily with meals. metFORMIN 2019-0 Yes [id number] 1000mg Take 1 Univers 1,000 mg 4-03 [id number] tablet by ity of tablet 00:00: mouth (two) Medical times Branch daily with meals. metFORMIN 2019-0 Yes [id number] 1000mg Take 1 Univers 1,000 mg 4-03 [id number] tablet by ity of tablet 00:00: mouth () Medical times Branch daily with meals. metFORMIN 2019-0 Yes [id number] 1000mg Take 1 Univers 1,000 mg 4-03 [id number] tablet by ity of tablet 00:00: mouth (two) Medical times Branch daily with meals. metFORMIN 2019-0 Yes [id number] 1000mg Take 1 Univers 1,000 mg 4-03 [id number] tablet by ity of tablet 00:00: mouth (two) Medical times Branch daily with meals. metFORMIN 2019-0 Yes [id number] 1000mg Take 1 Univers 1,000 mg 4-03 [id number] tablet by ity of tablet 00:00: mouth (two) Medical times Branch daily with meals. metFORMIN 2019-0 Yes [id number] 1000mg Take 1 [facility] 1,000 mg 4-03 [id number] tablet by ity of tablet 00:00: mouth (two) Medical times Branch daily with meals. metFORMIN 2019-0 Yes [id number] 1000mg Take 1 Univers 1,000 mg 4-03 [id number] tablet by ity of tablet 00:00: mouth (two) Medical times Branch daily with meals. metFORMIN 2019-0 Yes [id number] 1000mg Take 1 Univers 1,000 mg 4-03 [id number] tablet by ity of tablet 00:00: mouth (two) Medical times Branch daily with meals. metFORMIN 2019-0 Yes [id number] 1000mg Take 1 [facility] 1,000 mg 4-03 [id number] tablet by ity of tablet 00:00: mouth (two) Medical times Branch daily with meals. metFORMIN 2019-0 Yes [id number] 1000mg Take 1 [facility] 1,000 mg 4-03 [id number] tablet by ity of tablet 00:00: mouth (two) Medical times Branch daily with meals. metFORMIN 2019-0 Yes [id number] 1000mg Take 1 [facility] 1,000 mg 4-03 [id number] tablet by ity of tablet 00:00: mouth (two) Medical times Branch daily with meals. metFORMIN 2019-0 Yes [id number] 1000mg Take 1 Univers 1,000 mg 4-03 [id number] tablet by ity of tablet 00:00: mouth (two) Medical times Branch daily with meals. metFORMIN 2019-0 Yes [id number] 1000mg Take 1 [facility] 1,000 mg 4-03 [id number] tablet by ity of tablet 00:00: mouth (two) Medical times Branch daily with meals. metFORMIN 2019-0 Yes [id number] 1000mg Take 1 [facility] 1,000 mg 4-03 [id number] tablet by ity of tablet 00:00: mouth (two) Medical times Branch daily with meals. metFORMIN 2019-0 Yes [id number] 1000mg Take 1 Univers 1,000 mg 4-03 [id number] tablet by ity of tablet 00:00: mouth (two) Medical times Branch daily with meals. metFORMIN 2019-0 Yes [id number] 1000mg Take 1 Univers 1,000 mg 4-03 [id number] tablet by ity of tablet 00:00: mouth (two) Medical times Branch daily with meals. metFORMIN 2019-0 Yes [id number] 1000mg Take 1 [facility] 1,000 mg 4-03 [id number] tablet by ity of tablet 00:00: mouth (two) Medical times Branch daily with meals. metFORMIN 2019-0 Yes [id number] 1000mg Take 1 Univers 1,000 mg 4-03 [id number] tablet by ity of tablet 00:00: mouth (two) Medical times Branch daily with meals. metFORMIN 2019-0 Yes [id number] 1000mg Take 1 [facility] 1,000 mg 4-03 [id number] tablet by ity of tablet 00:00: mouth (two) Medical times Branch daily with meals. metFORMIN 2019-0 Yes [id number] 1000mg Take 1 [facility] 1,000 mg 4-03 [id number] tablet by ity of tablet 00:00: mouth (two) Medical times Branch daily with meals. metFORMIN 2019-0 Yes [id number] 1000mg Take 1 [facility] 1,000 mg 4-03 [id number] tablet by ity of tablet 00:00: mouth (two) Medical times Branch daily with meals. metFORMIN 2019-0 Yes [id number] 1000mg Take 1 Univers 1,000 mg 4-03 [id number] tablet by ity of tablet 00:00: mouth (two) Medical times Branch daily with meals. metFORMIN 2019-0 Yes [id number] 1000mg Take 1 Univers 1,000 mg 4-03 [id number] tablet by ity of tablet 00:00: mouth (two) Medical times Branch daily with meals. metFORMIN 2019-0 Yes [id number] 1000mg Take 1 [facility] 1,000 mg 4-03 [id number] tablet by ity of tablet 00:00: mouth (two) Medical times Branch daily with meals. metFORMIN 2019-0 Yes [id number] 1000mg Take 1 Univers 1,000 mg 4-03 [id number] tablet by ity of tablet 00:00: mouth (two) Medical times Branch daily with meals. metFORMIN 2019-0 Yes [id number] 1000mg Take 1 [facility] 1,000 mg 4-03 [id number] tablet by ity of tablet 00:00: mouth (two) Medical times Branch daily with meals. metFORMIN 2019-0 Yes [id number] 1000mg Take 1 [facility] 1,000 mg 4-03 [id number] tablet by ity of tablet 00:00: mouth (two) Medical times Branch daily with meals. metFORMIN 2019-0 Yes [id number] 1000mg Take 1 [facility] 1,000 mg 4-03 [id number] tablet by ity of tablet 00:00: mouth (two) Medical times Branch daily with meals. metFORMIN 2019-0 Yes [id number] 1000mg Take 1 [facility] 1,000 mg 4-03 [id number] tablet by ity of tablet 00:00: mouth (two) Medical times Branch daily with meals. metFORMIN 2019-0 Yes [id number] 1000mg Take 1 [facility] 1,000 mg 4-03 [id number] tablet by ity of tablet 00:00: mouth (two) Medical times Branch daily with meals. metFORMIN 2019-0 Yes [id number] 1000mg Take 1 [facility] 1,000 mg 4-03 [id number] tablet by ity of tablet 00:00: mouth (two) Medical times Branch daily with meals. metFORMIN 2019-0 Yes [id number] 1000mg Take 1 [facility] 1,000 mg 4-03 [id number] tablet by ity of tablet 00:00: mouth (two) Medical times Branch daily with meals. metFORMIN 2019-0 Yes [id number] 1000mg Take 1 [facility] 1,000 mg 4-03 [id number] tablet by ity of tablet 00:00: mouth (two) Medical times Branch daily with meals. metFORMIN 2019-0 Yes [id number] 1000mg Take 1 [facility] 1,000 mg 4-03 [id number] tablet by ity of tablet 00:00: mouth () Medical times Branch daily with meals. metFORMIN 2019-0 Yes [id number] 1000mg Take 1 [facility] 1,000 mg 4-03 [id number] tablet by ity of tablet 00:00: mouth (two) Medical times Branch daily with meals. metFORMIN 2019-0 Yes [id number] 1000mg Take 1 [facility] 1,000 mg 4-03 [id number] tablet by ity of tablet 00:00: mouth (two) Medical times Branch daily with meals. metFORMIN 2019-0 Yes [id number] 1000mg Take 1 [facility] 1,000 mg 4-03 [id number] tablet by ity of tablet 00:00: mouth (two) Medical times Branch daily with meals. metFORMIN 2019-0 Yes [id number] 1000mg Take 1 [facility] 1,000 mg 4-03 [id number] tablet by ity of tablet 00:00: mouth (two) Medical times Branch daily with meals. metFORMIN 2019-0 Yes [id number] 1000mg Take 1 [facility] 1,000 mg 4-03 [id number] tablet by ity of tablet 00:00: mouth (two) Medical times Branch daily with meals. metFORMIN 2019-0 Yes [id number] 1000mg Take 1 [facility] 1,000 mg 4-03 [id number] tablet by ity of tablet 00:00: mouth (two) Medical times Branch daily with meals. metFORMIN 2019-0 Yes [id number] 1000mg Take 1 [facility] 1,000 mg 4-03 [id number] tablet by ity of tablet 00:00: mouth (two) Medical times [facility] daily with meals. metFORMIN 2019-0 Yes [id number] 1000mg Take 1 [facility] 1,000 mg 4-03 [id number] tablet by ity of tablet 00:00: mouth (two) Medical times [facility] daily with meals. metFORMIN 2019-0 Yes [id number] 1000mg Take 1 [facility] 1,000 mg 4-03 [id number] tablet by ity of tablet 00:00: mouth (two) Medical times Branch daily with meals. metFORMIN 2019-0 Yes [id number] 1000mg Take 1 [facility] 1,000 mg 4-03 [id number] tablet by ity of tablet 00:00: mouth (two) Medical times Branch daily with meals. metFORMIN 2019-0 Yes [id number] 1000mg Take 1 [facility] 1,000 mg 4-03 [id number] tablet by it[facility] of tablet 00:00: mouth (two) Medical times Branch daily with meals. metFORMIN 2019-0 Yes [id number] 1000mg Take 1 [facility] 1,000 mg 4-03 [id number] tablet by ity of tablet 00:00: mouth (two) Medical times [facility] daily with meals. metFORMIN 2019-0 Yes [id number] 1000mg Take 1 [facility] 1,000 mg 4-03 [id number] tablet by ity of tablet 00:00: mouth (two) Medical times Branch daily with meals. metFORMIN 2019-0 Yes [id number] 1000mg Take 1 [facility] 1,000 mg 4-03 [id number] tablet by ity of tablet 00:00: mouth (two) Medical times Branch daily with meals. metFORMIN 2019-0 Yes [id number] 1000mg Take 1 [facility] 1,000 mg 4-03 [id number] tablet by it[facility] of tablet 00:00: mouth (two) Medical times [facility] daily with meals. metFORMIN 2019-0 Yes [id number] 1000mg Take 1 [facility] 1,000 mg 4-03 [id number] tablet by [facility] of tablet 00:00: mouth (two) Medical times [facility] daily with meals. metFORMIN 2019-0 Yes [id number] 1000mg Take 1 [facility] 1,000 mg 4-03 [id number] tablet by it[facility] of tablet 00:00: mouth (two) Medical times [facility] daily with meals. metFORMIN 2019-0 Yes [id number] 1000mg Take 1 [facility] 1,000 mg 4-03 [id number] tablet by ity of tablet 00:00: mouth (two) Medical times [facility] daily with meals. metFORMIN 2019-0 Yes [id number] 1000mg Take 1 [facility] 1,000 mg 4-03 [id number] tablet by ity of tablet 00:00: mouth (two) Medical times [facility] daily with meals. metFORMIN 2019-0 Yes [id number] 1000mg Take 1 [facility] 1,000 mg 4-03 [id number] tablet by ity of tablet 00:00: mouth (two) Medical times [facility] daily with meals. metFORMIN 2019-0 Yes [id number] 1000mg Take 1 [facility] 1,000 mg 4-03 [id number] tablet by ity of tablet 00:00: mouth () Medical times Branch daily with meals. metFORMIN 2019-0 Yes [id number] 1000mg Take 1 [facility] 1,000 mg 4-03 [id number] tablet by ity of tablet 00:00: mouth (two) Medical times Branch daily with meals. metFORMIN 2019-0 Yes [id number] 1000mg Take 1 [facility] 1,000 mg 4-03 [id number] tablet by ity of tablet 00:00: mouth (two) Medical times Branch daily with meals. metFORMIN 2019-0 Yes [id number] 1000mg Take 1 [facility] 1,000 mg 4-03 [id number] tablet by ity of tablet 00:00: mouth (two) Medical times [facility] daily with meals. metFORMIN 2019-0 Yes [id number] 1000mg Take 1 [facility] 1,000 mg 4-03 [id number] tablet by ity of tablet 00:00: mouth (two) Medical times [facility] daily with meals. metFORMIN 2019-0 Yes [id number] 1000mg Take 1 [facility] 1,000 mg 4-03 [id number] tablet by ity of tablet 00:00: mouth (two) Medical times [facility] daily with meals. metFORMIN 2019-0 Yes [id number] 1000mg Take 1 [facility] 1,000 mg 4-03 [id number] tablet by ity of tablet 00:00: mouth (two) Medical times [facility] daily with meals. metFORMIN 2019-0 Yes [id number] 1000mg Take 1 [facility] 1,000 mg 4-03 [id number] tablet by it[facility] of tablet 00:00: mouth (two) Medical times [facility] daily with meals. metFORMIN 2019-0 Yes [id number] 1000mg Take 1 [facility] 1,000 mg 4-03 [id number] tablet by ity of tablet 00:00: mouth (two) Medical times Branch daily with meals. metFORMIN 2019-0 Yes [id number] 1000mg Take 1 [facility] 1,000 mg 4-03 [id number] tablet by ity of tablet 00:00: mouth (two) Medical times [facility] daily with meals. metFORMIN 2019-0 Yes [id number] 1000mg Take 1 [facility] 1,000 mg 4-03 [id number] tablet by ity of tablet 00:00: mouth (two) Medical times Branch daily with meals. metFORMIN 2019-0 Yes [id number] 1000mg Take 1 [facility] 1,000 mg 4-03 [id number] tablet by ity of tablet 00:00: mouth (two) Medical times Branch daily with meals. metFORMIN 2019-0 Yes [id number] 1000mg Take 1 [facility] 1,000 mg 4-03 [id number] tablet by ity of tablet 00:00: mouth (two) Medical times Branch daily with meals. metFORMIN 2019-0 Yes [id number] 1000mg Take 1 [facility] 1,000 mg 4-03 [id number] tablet by ity of tablet 00:00: mouth (two) Medical times Branch daily with meals. Immunizations Ordered Filled Immunization Date Status Comments [facility] e Immunization Name Name Td 2018-06-29 Completed [facility] of 00:00:00 [facility] Td 2018-06-29 Completed [facility] 00:00:00 [facility] Td 2018-06-29 Completed [facility] 00:00:00 [facility] Td 2018-06-29 Completed [facility] 00:00:00 [facility] Td 2018-06-29 Completed [facility] 00:[facility]:00 [place] [facility] Td 2018-06-29 Completed [facility] 00:00:00 [facility] TD, NOS 2018-06-29 Completed [facility] 00:00:00 [facility] TD, NOS 2018-06-29 Completed [facility] 00:00:00 [facility] TD, NOS 2018-06-29 Completed [facility] 00:00:00 [facility] TD, NOS 2018-06-29 Completed [facility] 00:00:00 [facility] TD, NOS 2018-06-29 Completed [facility] 00:00:00 [facility] TD, NOS 2018-06-29 Completed [facility] 00:00:00 [facility] TD, NOS 2018-06-29 Completed [facility] 00:00:00 [facility] TD, NOS 2018-06-29 Completed [facility] 00:00:00 [facility] TD, NOS 2018-06-29 Completed [facility] 00:00:00 [facility] TD, NOS 2018-06-29 Completed [facility] 00:00:00 [facility] TD, NOS 2018-06-29 Completed [facility] 00:00:00 [facility] TD, NOS 2018-06-29 Completed [facility] 00:00:00 [facility] TD, NOS 2018-06-29 Completed [facility] 00:00:00 [facility] TD, NOS 2018-06-29 Completed [facility] 00:00:00 [facility] TD, NOS 2018-06-29 Completed [facility] 00:00:00 [facility] TD, NOS 2018-06-29 Completed [facility] 00:00:00 [facility] TD, NOS 2018-06-29 Completed [facility] 00:00:00 [facility] TD, NOS 2018-06-29 Completed [facility] 00:00:00 [facility] TD, NOS 2018-06-29 Completed [facility] 00:00:00 [facility] TD, NOS 2018-06-29 Completed [facility] 00:00:00 [facility] TD, NOS 2018-06-29 Completed [facility] 00:00:00 [facility] TD, NOS 2018-06-29 Completed [facility] 00:00:00 [facility] [...] Branch Td 2018-06-29 Completed [facility] 00:00:00 [facility] Td 2018-06-29 Completed [facility] 00:00:00 [facility] Td 2018-06-29 Completed [facility] 00:00:00 [facility] Td 2018-06-29 Completed [facility] 00:00:00 [facility] Td 2018-06-29 Completed [facility] 00:00:00 [facility] Td 2018-06-29 Completed [facility] 00:00:00 [facility] Td 2018-06-29 Completed [facility] 00:00:00 [facility] Td 2018-06-29 Completed [facility] 00:00:00 [facility] Td 2018-06-29 Completed [facility] 00:00:00 [facility] Td 2018-06-29 Completed [facility] 00:00:00 [facility] Td 2018-06-29 Completed [facility] 00:00:00 [facility] Td 2018-06-29 Completed [facility] 00:00:00 [facility] Td 2018-06-29 Completed [facility] 00:00:00 [facility] Td 2018-06-29 Completed [facility] 00:00:00 [facility] Td 2018-06-29 Completed [facility] 00:00:00 [facility] Td 2018-06-29 Completed [facility] 00:00:00 [facility] Td 2018-06-29 Completed [facility] 00:00:00 [facility] Td 2018-06-29 Completed [facility] 00:00:00 [facility] Td 2018-06-29 Completed [facility] 00:00:00 [facility] Td 2018-06-29 Completed [facility] 00:00:00 [facility] Td 2018-06-29 Completed [facility] 00:00:00 [facility] Td 2018-06-29 Completed [facility] 00:00:00 [facility] Td 2018-06-29 Completed [facility] 00:00:00 [facility] Td 2018-06-29 Completed [facility] of 00:00:00 [facility] Vital Signs Vital Name Observation Time Observation Value Comments Source Body temperature 2022-05-14 19:59:00 36.39 [place] [facility] Body height 2022-05-14 19:59:[address] [facility] Body weight 2022-05-14 19:59:[address] [facility] BMI 2022-05-14 19:59:00 27.46 kg/m2 Universi ty of [facility] Body temperature 2022-04-29 15:39:00 36.06 [place] [facility] of [facility] Body weight 2022-04-29 15:39:00 72.576 kg [facility] [place] [facility] BMI 2022-04-29 15:39:00 33.44 kg/m2 [facility]i [facility] of [facility] Systolic blood 2022-04-23 15:44:00 132 mm[Hg] Univer sity of pressure [facility] Diastolic blood 2022-04-23 15:44:00 88 mm[Hg] Unive rsity of pressure [facility] Heart rate 2022-04-23 15:44:00 65 /min [facility]i [facility] of [facility] Body temperature 2022-04-23 15:44:00 36.33 [place] [facility] Body height 2022-04-23 15:44:00 147.3 cm [facility] of [facility] Body weight 2022-04-23 15:44:00 68.947 kg [facility]i [facility] of [facility] BMI 2022-04-23 15:44:00 31.77 kg/m2 [facility] of [facility] Systolic blood 2022-04-07 22:32:00 166 mm[Hg] Univer sity of [facility] Diastolic blood 2022-04-07 22:32:00 64 mm[Hg] Unive rsity of [facility] Heart rate 2022-04-07 20:56:00 65 /min Universi ty of [facility] Body temperature 2022-04-07 20:56:00 36.44 [place] [facility] of [facility] Respiratory rate 2022-04-07 20:56:00 18 /min Univ ersity of [facility] Oxygen saturation in 2022-04-07 20:56:00 98 /min [facility] Arterial blood by [facility] Pulse oximetry Branch Body weight 2022-04-07 01:51:00 68.992 kg per bed [facility]i ty of [facility] BMI 2022-04-07 01:51:00 31.79 kg/m2 [facility] of [facility] Systolic blood 2022-04-02 17:28:00 182 mm[Hg] Univer sity of pressure [facility] Diastolic blood 2022-04-02 17:28:00 57 mm[Hg] Unive rsity of pressure [facility] Heart rate 2022-04-02 17:28:00 75 /min [facility] Body temperature 2022-04-02 17:28:00 36.56 [place] [facility] Respiratory rate 2022-04-02 17:28:00 18 /min Univ ersity of [facility] Oxygen saturation in 2022-04-02 17:28:00 95 /min [facility] of Arterial blood by [facility] Pulse oximetry Branch Body weight 2022-03-27 19:26:00 72.122 kg [facility] BMI 2022-03-27 19:26:00 33.23 kg/m2 [facility] Systolic blood 2022-03-28 17:27:00 171 mm[Hg] Univer sity of pressure [facility] Diastolic blood 2022-03-28 17:27:00 93 mm[Hg] Unive rsity of pressure [facility] Heart rate 2022-03-28 17:27:00 90 /min [facility] Body temperature 2022-03-28 17:27:00 36.83 [place] [facility] Respiratory rate 2022-03-28 17:27:00 18 /min Univ ersity of [facility] Oxygen saturation in 2022-03-28 17:27:00 94 /min [facility] of Arterial blood by [facility] Pulse oximetry [facility] Body weight 2022-03-27 19:26:00 72.122 kg [facility] BMI 2022-03-27 19:26:00 33.23 kg/m2 [facility] Systolic blood 2022-03-13 22:23:00 176 mm[Hg] Univer sity of pressure [facility] Diastolic blood 2022-03-13 22:23:00 55 mm[Hg] Unive rsity of pressure [facility] Heart rate 2022-03-13 22:23:00 83 /min [facility] Body temperature 2022-03-13 22:23:00 36.56 [place] [facility] Respiratory rate 2022-03-13 22:23:00 16 /min Univ ersity of [facility] Oxygen saturation in 2022-03-13 22:23:00 96 /min [facility] of Arterial blood by [facility] shade Pulse oximetry [facility] Body weight 2022-03-04 23:03:00 71.215 kg [facility] BMI 2022-03-04 23:03:00 32.81 kg/m2 [facility] ty of [facility] Systolic blood 2022-03-13 15:13:00 131 mm[Hg] Univer sity of pressure [facility] Diastolic blood 2022-03-13 15:13:00 50 mm[Hg] Unive rsity of pressure [facility] Heart rate 2022-03-13 15:13:00 82 /min [facility] Body temperature 2022-03-13 15:13:00 36.61 [place] [facility] of [facility] Respiratory rate 2022-03-13 15:13:00 18 /min Univ ersity of [facility] Oxygen saturation in 2022-03-13 15:13:00 98 /min [facility] of Arterial blood by [facility] Pulse oximetry [facility] Body weight 2022-03-04 23:03:00 71.215 kg [facility] BMI 2022-03-04 23:03:00 32.81 kg/m2 [facility] Systolic blood 2022-03-07 15:00:00 157 mm[Hg] Univer sity of pressure [facility] Diastolic blood 2022-03-07 15:00:00 56 mm[Hg] Unive rsity of pressure [facility] Heart rate 2022-03-07 15:00:00 77 /min [facility]i [facility] of [facility] Body temperature 2022-03-07 15:00:00 36 [place] [facility] of [facility] Respiratory rate 2022-03-07 15:00:00 18 /min Univ ersity of [facility] Oxygen saturation in 2022-03-07 15:00:00 100 /min [facility] of Arterial blood by [facility] Pulse oximetry Branch Body weight 2022-03-04 23:03:00 71.215 kg [facility] BMI 2022-03-04 23:03:00 32.81 kg/m2 [facility] of [facility] Systolic blood 2022-02-12 16:11:00 98 mm[Hg] Univer sity of [facility] Diastolic blood 2022-02-12 16:11:00 37 mm[Hg] Unive rsity of pressure [facility] Heart rate 2022-02-12 16:11:00 105 /min Universi ty of [facility] Body temperature 2022-02-12 16:11:00 35.72 [place] [facility] ers[facility] of [facility] Body height 2022-02-12 16:11:00 147.3 cm Universi ty of [facility] Body weight 2022-02-12 16:11:00 72.757 kg [facility] of [facility] BMI 2022-02-12 16:11:00 33.52 kg/m2 [facility] of [facility] Systolic blood 2022-02-06 01:56:00 159 mm[Hg] Univer sity of pressure [facility] Diastolic blood 2022-02-06 01:56:00 74 mm[Hg] Unive rsity of pressure [facility] Heart rate 2022-02-06 01:56:00 91 /min [facility]i [facility] of [facility] Respiratory rate 2022-02-06 01:56:00 16 /min Univ ersity of [facility] Oxygen saturation in 2022-02-06 01:56:00 99 /min University Arterial blood by [facility] Pulse oximetry Branch Body temperature 2022-02-05 22:19:00 37 [place] [facility] ers[facility] of [facility] Body weight 2022-02-05 22:19:00 73.936 kg [facility]i ty of [facility] BMI 2022-02-05 22:19:00 29.81 kg/m2 [facility] of [facility] Systolic blood 2022-01-14 16:43:00 172 mm[Hg] Univer sity of pressure [facility] Diastolic blood 2022-01-14 16:43:00 90 mm[Hg] Unive rsity of pressure [facility] Heart rate 2022-01-14 16:43:00 99 /min [facility]i ty of [facility] Body temperature 2022-01-14 16:43:00 36.61 [place] [facility] of [facility] Respiratory rate 2022-01-14 16:43:00 18 /min Univ ersity of [facility] Body height 2022-01-14 16:43:00 157.5 cm [facility] Body weight 2022-01-14 16:43:00 76.204 kg [facility]i ty of [facility] BMI 2022-01-14 16:43:00 30.73 kg/m2 [facility] Oxygen saturation in 2022-01-14 16:43:00 98 /min University of Arterial blood by [facility] Pulse oximetry Branch Systolic blood 2021-12-25 16:51:12 136 mm[Hg] Univer sity of pressure [facility] Diastolic blood 2021-12-25 16:51:12 105 mm[Hg] Unive rsity of pressure [facility] Heart rate 2021-12-25 16:51:12 96 /min [facility]i [facility] Oxygen saturation in 2021-12-25 16:51:12 98 /min [facility] of Arterial blood by [facility] Pulse oximetry Branch Body temperature 2021-12-25 14:07:00 37.56 [place] [facility] of [facility] Respiratory rate 2021-12-25 14:07:00 22 /min Univ ersity of [facility] Body weight 2021-12-25 14:07:00 76.204 kg [facility]i [facility] BMI 2021-12-25 14:07:00 30.73 kg/m2 [facility] Systolic blood 2020-07-17 14:33:00 162 mm[Hg] Univer sity of pressure [facility] Diastolic blood 2020-07-17 14:33:00 64 mm[Hg] Unive rsity of pressure [facility] Heart rate 2020-07-17 14:33:00 79 /min [facility]i [facility] Body temperature 2020-07-17 14:30:00 36.72 [place] [facility] Respiratory rate 2020-07-17 14:30:00 20 /min Univ ersity of [facility] Body height 2020-07-17 14:30:00 157.5 cm [facility] Body weight 2020-07-17 14:30:00 68.947 kg [facility] BMI 2020-07-17 14:30:00 27.80 kg/m2 [facility] Systolic blood 2020-06-15 13:45:00 186 mm[Hg] Univer sity of pressure [facility] Diastolic blood 2020-06-15 13:45:00 70 mm[Hg] Unive rsity of pressure [facility] Heart rate 2020-06-15 13:45:00 86 /min [facility] Body temperature 2020-06-15 13:45:00 36.56 [place] [facility] Respiratory rate 2020-06-15 13:45:00 18 /min Univ ersity of [facility] Body height 2020-06-15 13:45:00 152.4 cm [facility] Body weight 2020-06-15 13:45:00 70.126 kg [facility] BMI 2020-06-15 13:45:00 30.19 kg/m2 Universi ty of [facility] Oxygen saturation in 2020-06-15 13:45:00 99 /min [facility] of Arterial blood by [facility] Pulse oximetry Branch Systolic blood 2020-03-13 16:50:00 154 mm[Hg] Univer sity of pressure [facility] Diastolic blood 2020-03-13 16:50:00 78 mm[Hg] Unive rsity of pressure [facility] Heart rate 2020-03-13 16:49:00 81 /min [facility] Body temperature 2020-03-13 16:49:00 36.39 [place] [facility] of [facility] Respiratory rate 2020-03-13 16:49:00 18 /min Univ ersity of [facility] Body height 2020-03-13 16:49:00 152.4 cm [facility] Body weight 2020-03-13 16:49:00 66.633 kg [facility] BMI 2020-03-13 16:49:00 28.69 kg/m2 [facility] Systolic blood 2020-02-10 15:29:00 195 mm[Hg] Univer sity of pressure [facility] Diastolic blood 2020-02-10 15:29:00 89 mm[Hg] Unive rsity of pressure [facility] Heart rate 2020-02-10 15:29:00 84 /min [facility] Body temperature 2020-02-10 15:27:00 36.83 [place] [facility] of [facility] Respiratory rate 2020-02-10 15:27:00 20 /min Univ ersity of [facility] Body height 2020-02-10 15:27:00 152.4 cm [facility] Body weight 2020-02-10 15:27:00 66.044 kg [facility] BMI 2020-02-10 15:27:00 28.44 kg/m2 [facility] Oxygen saturation in 2020-02-10 15:27:00 98 /min [facility] of Arterial blood by [place] [employer] [facility] Pulse oximetry Branch Systolic blood 2020-01-13 13:57:00 154 mm[Hg] Univer sity of pressure [facility] Diastolic blood 2020-01-13 13:57:00 78 mm[Hg] Unive rsity of pressure [facility] Heart rate 2020-01-13 13:55:00 80 /min [facility] Body temperature 2020-01-13 13:55:00 36.44 [place] [facility] Respiratory rate 2020-01-13 13:55:00 18 /min Univ ersity of [facility] Body weight 2020-01-13 13:55:00 65.772 kg [facility] BMI 2020-01-13 13:55:00 28.32 kg/m2 [facility] Systolic blood 2019-12-20 20:50:00 132 mm[Hg] Univer sity of pressure [facility] Diastolic blood 2019-12-20 20:50:00 75 mm[Hg] Unive rsity of pressure [facility] Heart rate 2019-12-20 20:50:00 77 /min [facility] Body temperature 2019-12-20 20:50:00 36.67 [place] [facility] Respiratory rate 2019-12-20 20:50:00 18 /min Univ ersity of [facility] Body weight 2019-12-20 20:50:00 66.225 kg [facility] BMI 2019-12-20 20:50:00 28.51 kg/m2 [facility] Oxygen saturation in 2019-12-20 20:50:00 97 /min [facility] of Arterial blood by [place] [employer] [facility] Pulse oximetry Branch Systolic blood 2019-12-20 15:20:00 190 mm[Hg] Univer sity of pressure [facility] Diastolic blood 2019-12-20 15:20:00 88 mm[Hg] Unive rsity of pressure [facility] Heart rate 2019-12-20 15:20:00 80 /min [facility] Body temperature 2019-12-20 15:04:00 36.5 [place] [facility] Respiratory rate 2019-12-20 15:04:00 20 /min Univ ersity of [facility] Body height 2019-12-20 15:04:00 152.4 cm [facility] Body weight 2019-12-20 15:04:00 66.225 kg [facility] BMI 2019-12-20 15:04:00 28.51 kg/m2 [facility] Oxygen saturation in 2019-12-20 15:04:00 98 /min [facility] of Arterial blood by [facility] Pulse oximetry Branch Systolic blood 2019-12-07 22:00:00 144 mm[Hg] Univer sity of pressure [facility] Diastolic blood 2019-12-07 22:00:00 88 mm[Hg] Unive rsity of pressure [facility] Heart rate 2019-12-07 22:00:00 78 /min [facility] Body temperature 2019-12-07 22:00:00 36.33 [place] [facility] Respiratory rate 2019-12-07 22:00:00 18 /min Univ ersity of [facility] Oxygen saturation in 2019-12-07 22:00:00 98 /min [facility] Arterial blood by [facility] Pulse oximetry Branch Body weight 2019-12-01 08:35:00 66.497 kg [facility] BMI 2019-12-01 08:35:00 24.40 kg/m2 [facility] BP Systolic 2022-03-28 20:37:00 129 mm[Hg] BP Diastolic 2022-03-28 20:37:00 82 mm[Hg] Weight Measured 2022-03-28 20:37:00 147.60 pounds Height Measured 2022-03-28 20:37:00 64.00 inches Body Temperature 2022-03-28 20:37:00 Heart Rate 2022-03-28 20:37:00 72.00 /min Respiratory Rate 2022-03-28 20:37:00 BP Systolic 2022-03-27 09:39:00 129 mm[Hg] BP Diastolic 2022-03-27 09:39:00 82 mm[Hg] Weight Measured 2022-03-27 09:39:00 147.60 pounds Height Measured 2022-03-27 09:39:00 64.00 inches Body Temperature 2022-03-27 09:39:00 Heart Rate 2022-03-27 09:39:00 72.00 /min Respiratory Rate 2022-03-27 09:39:00 BP Systolic 2022-03-18 14:19:00 112 mm[Hg] BP Diastolic 2022-03-18 14:19:00 49 mm[Hg] Weight Measured 2022-03-18 14:19:00 150.80 pounds Height Measured 2022-03-18 14:19:00 64.00 inches Body Temperature 2022-03-18 14:19:00 98.00 degrees Heart Rate 2022-03-18 14:19:00 83.00 /min Respiratory Rate 2022-03-18 14:19:00 Systolic blood 2022-03-11 16:55:00 178 mm[Hg] Univer sity of pressure [facility] Diastolic blood 2022-03-11 16:55:00 75 mm[Hg] Unive rsity of pressure [facility] Heart rate 2022-03-11 16:55:00 70 /min [facility] Body temperature 2022-03-11 16:55:00 36.61 [place] Univ ers[facility] Respiratory rate 2022-03-11 16:55:00 18 /min [facility] Oxygen saturation in 2022-03-11 16:55:00 94 /min [facility] Arterial blood by [facility] Systolic blood 2022-03-10 16:55:00 107 mm[Hg] Univer sity of pressure [facility] Diastolic blood 2022-03-10 16:55:00 40 mm[Hg] Unive rsity of pressure [facility] Heart rate 2022-03-10 16:55:00 71 /min [facility] Body temperature 2022-03-10 16:55:00 37.67 [place] [facility] Respiratory rate 2022-03-10 16:55:00 18 /min [facility] Oxygen saturation in 2022-03-10 16:55:00 96 /min [facility] blood by [facility] Body weight 2022-03-04 23:03:[address] [facility] BMI 2022-03-04 23:03:00 32.81 kg/m2 [facility] Body height 2022-02-12 16:11:[address] [facility] BP Systolic 2022-02-04 14:36:00 139 mm[Hg] BP [...] Date / Time Performing Clinician Source Performed XR HIPS 2 VW LEFT 2022-04-29 15:34:04 BraunRashid [facility] ASSIGNMENT OF BENEFITS 2022-04-29 15:11:29 Doctor Unassigned, Un [facility] Lolita [facility] POCT GLUCOSE (AUTOMATED) 2022-04-07 22:31:00 Parish Grimes [facility] POCT GLUCOSE (AUTOMATED) 2022-04-07 17:32:00 Parish Grimes [facility] POCT GLUCOSE (AUTOMATED) 2022-04-07 14:44:00 Parish Grimes [facility] MAGNESIUM 2022-04-07 10:46:00 Marty [facility] BASIC METABOLIC PANEL 2022-04-07 10:46:00 Mikal Ferguson [facility] (NA, K, CL, CO2, GLUCOSE, Medica l Branch BUN, CREATININE, CA) CBC WITH DIFF 2022-04-07 10:46:00 Marty [facility] POCT GLUCOSE (AUTOMATED) 2022-04-07 03:40:00 Parish Grimes [facility] TOTAL IRON BINDING 2022-04-07 01:22:00 Magen [facility] POCT GLUCOSE (AUTOMATED) 2022-04-06 22:54:00 Parish Grimes [facility] POCT GLUCOSE (AUTOMATED) 2022-04-06 18:46:00 Parish Grimes [facility] POCT GLUCOSE (AUTOMATED) 2022-04-06 16:07:00 Parish Grimes [facility] MAGNESIUM 2022-04-06 11:25:00 [facility] 2022-04-06 11:25:00 [facility] IRON 2022-04-06 11:25:00 [facility] BASIC METABOLIC PANEL 2022-04-06 11:25:[address] [facility] (NA, K, CL, CO2, GLUCOSE, Medica l Branch BUN, CREATININE, CA) CBC WITHOUT DIFF 2022-04-06 11:25:00 Magen [facility] POCT GLUCOSE (AUTOMATED) 2022-04-06 04:47:00 Parish Grimes [facility] POCT GLUCOSE (AUTOMATED) 2022-04-05 22:57:00 Parish Grimes [facility] XR HIPS 2 VW LEFT 2022-04-05 19:37:00 Jillian Key [facility] POCT GLUCOSE (AUTOMATED) 2022-04-05 19:23:00 Parish Grimes [facility] POCT GLUCOSE (AUTOMATED) 2022-04-05 18:33:00 Parish Grimes [facility] POCT GLUCOSE (AUTOMATED) 2022-04-05 15:41:00 Parish Grimes [facility] CBC WITH DIFF 2022-04-05 09:40:00 Bimal Crum [facility] POCT GLUCOSE (AUTOMATED) 2022-04-05 03:33:00 Parish Grimes [facility] POCT GLUCOSE (AUTOMATED) 2022-04-04 22:19:00 Parish Grimes [facility] POCT GLUCOSE (AUTOMATED) 2022-04-04 17:34:00 Parish Grimes [facility] POCT GLUCOSE (AUTOMATED) 2022-04-04 14:47:00 Parish Grimes [facility] CBC WITH DIFF 2022-04-04 11:57:00 Bimal Crum [facility] POCT GLUCOSE (AUTOMATED) 2022-04-04 03:54:00 Parish Grimes [facility] POCT GLUCOSE (AUTOMATED) 2022-04-03 23:10:00 Parish Grimes [facility] POCT GLUCOSE (AUTOMATED) 2022-04-03 17:26:00 Parish Grimes [facility] POCT GLUCOSE (AUTOMATED) 2022-04-03 17:26:00 Parish Grimes [facility] POCT GLUCOSE (AUTOMATED) 2022-04-03 14:49:00 Parish Grimes [facility] POCT GLUCOSE (AUTOMATED) 2022-04-03 14:49:00 Parish Grimes [facility] BASIC METABOLIC PANEL 2022-04-03 12:07:00 Bimal Crum [facility] (NA, K, CL, CO2, GLUCOSE, [facility] BUN, CREATININE, CA) BASIC METABOLIC PANEL 2022-04-03 12:07:00 Bimal Crum [facility] (NA, K, CL, CO2, GLUCOSE, [facility] BUN, CREATININE, CA) CBC WITH DIFF 2022-04-03 12:06:00 Bimal Crum [facility] CBC WITH DIFF 2022-04-03 12:06:00 Bimal Crum [facility] POCT GLUCOSE (AUTOMATED) 2022-04-03 03:33:00 Parish Grimes [facility] POCT GLUCOSE (AUTOMATED) 2022-04-03 03:33:00 Parish Grimes [facility] POCT GLUCOSE (AUTOMATED) 2022-04-03 00:27:00 Parish Grimes [facility] POCT GLUCOSE (AUTOMATED) 2022-04-03 00:27:00 Parish Grimes [facility] WOUND VAC EXCHANGE 2022-04-02 20:56:00 Rashid Braun [facility] WOUND VAC EXCHANGE 2022-04-02 20:56:00 Rashid Braun [facility] POCT GLUCOSE (AUTOMATED) 2022-04-02 18:06:00 Parish Grimes [facility] POCT GLUCOSE (AUTOMATED) 2022-04-02 18:06:00 Parish Grimes [facility] POCT GLUCOSE (AUTOMATED) 2022-04-02 14:55:00 Parish Grimes [facility] POCT GLUCOSE (AUTOMATED) 2022-04-02 14:55:00 Parish Grimes [facility] MAGNESIUM 2022-04-02 09:41:00 Ferguson, [facility] BASIC METABOLIC PANEL 2022-04-02 09:41:00 Ferguson, [facility] (NA, K, CL, CO2, GLUCOSE, Medica l Branch BUN, CREATININE, CA) CBC WITH DIFF 2022-04-02 09:41:00 Ferguson [facility] MAGNESIUM 2022-04-02 09:41:00 Ferguson, [facility] BASIC METABOLIC PANEL 2022-04-02 09:41:00 Ferguson, [facility] (NA, K, CL, CO2, GLUCOSE, Medica l Branch BUN, CREATININE, CA) CBC WITH DIFF 2022-04-02 09:41:00 Ferguson, [facility] POCT GLUCOSE (AUTOMATED) 2022-04-02 02:43:00 Parish Grimes [facility] POCT GLUCOSE (AUTOMATED) 2022-04-02 02:43:00 Parish Grimes [facility] POCT GLUCOSE (AUTOMATED) 2022-04-01 22:45:00 Parish Grimes [facility] POCT GLUCOSE (AUTOMATED) 2022-04-01 22:45:00 Parish Grimes [facility] POCT GLUCOSE (AUTOMATED) 2022-04-01 17:37:00 Parish Grimes [facility] POCT GLUCOSE (AUTOMATED) 2022-04-01 17:37:00 Parish Grimes [facility] POCT GLUCOSE (AUTOMATED) 2022-04-01 14:00:00 Parish Grimes [facility] POCT GLUCOSE (AUTOMATED) 2022-04-01 14:00:00 Parish Grimes [facility] BASIC METABOLIC PANEL 2022-04-01 12:03:00 Bimal Crum [facility] (NA, K, CL, CO2, GLUCOSE, [facility] BUN, CREATININE, CA) BASIC METABOLIC PANEL 2022-04-01 12:03:00 Bimal Crum [facility] (NA, K, CL, CO2, GLUCOSE, [facility] BUN, CREATININE, CA) CBC WITH DIFF 2022-04-01 12:02:00 [facility] 2022-04-01 12:02:[address] [facility] HB ECG ROUTINE & RHYTHM 2022-04-01 06:21:14 Ewelina Caraballo [facility] [place] HB ECG ROUTINE & RHYTHM 2022-04-01 06:21:14 Ewelina Caraballo [facility] [place] POCT GLUCOSE (AUTOMATED) 2022-04-01 04:02:00 Parish Grimes [facility] POCT GLUCOSE (AUTOMATED) 2022-04-01 04:02:00 Parish Grimes [facility] POCT GLUCOSE (AUTOMATED) 2022-04-01 00:25:00 Parish Grimes [facility] POCT GLUCOSE (AUTOMATED) 2022-04-01 00:25:00 Parish Grimes [facility] MR HAND LEFT W WO 2022-03-31 23:37:51 Radames [facility] MR HAND LEFT W WO 2022-03-31 23:37:51 Radames [facility] POCT GLUCOSE (AUTOMATED) 2022-03-31 19:24:00 Parish Grimes [facility] POCT GLUCOSE (AUTOMATED) 2022-03-31 19:24:00 Parish Grimes [facility] POCT GLUCOSE (AUTOMATED) 2022-03-31 19:24:00 Parish Grimes [facility] POCT GLUCOSE (AUTOMATED) 2022-03-31 15:14:00 Parish Grimes [facility] POCT GLUCOSE (AUTOMATED) 2022-03-31 15:14:00 Parish Grimes [facility] POCT GLUCOSE (AUTOMATED) 2022-03-31 15:14:00 Parish Grimes [facility] VANCOMYCIN TROUGH 2022-03-31 07:49:00 Dostal, [facility] CBC WITHOUT DIFF 2022-03-31 07:49:[address] [facility] VANCOMYCIN TROUGH 2022-03-31 07:49:00 Dostal, [facility] CBC WITHOUT DIFF 2022-03-31 07:49:[address] [facility] VANCOMYCIN TROUGH 2022-03-31 07:49:00 Dostal, [facility] CBC WITHOUT DIFF 2022-03-31 07:49:[address] [facility] POCT GLUCOSE (AUTOMATED) 2022-03-31 02:30:00 Parish Grimes [facility] POCT GLUCOSE (AUTOMATED) 2022-03-31 02:30:00 Parish Grimes [facility] POCT GLUCOSE (AUTOMATED) 2022-03-31 02:30:00 Parish Grimes [facility] POCT GLUCOSE (AUTOMATED) 2022-03-30 23:59:00 Parish Grimes [facility] POCT GLUCOSE (AUTOMATED) 2022-03-30 23:59:00 Parish Grimes [facility] POCT GLUCOSE (AUTOMATED) 2022-03-30 23:59:00 Parish Grimes [facility] CBC WITHOUT DIFF 2022-03-30 21:03:00 Bimal Crum [facility] CBC WITHOUT DIFF 2022-03-30 21:03:[address] [facility] CBC WITHOUT DIFF 2022-03-30 21:03:00 Bimal Crum [facility] POCT GLUCOSE (AUTOMATED) 2022-03-30 18:30:00 Parish Grimes [facility] POCT GLUCOSE (AUTOMATED) 2022-03-30 18:30:00 Parish Grimes [facility] POCT GLUCOSE (AUTOMATED) 2022-03-30 18:30:00 Parish Grimes [facility] POCT GLUCOSE (AUTOMATED) 2022-03-30 14:52:00 Parish Grimes [facility] POCT GLUCOSE (AUTOMATED) 2022-03-30 14:52:00 Parish Grimes [facility] POCT GLUCOSE (AUTOMATED) 2022-03-30 14:52:00 Parish Grimes [facility] BASIC METABOLIC PANEL 2022-03-30 10:04:00 [facility] (NA, K, CL, CO2, GLUCOSE, [facility] BUN, CREATININE, CA) VANCOMYCIN RANDOM LEVEL 2022-03-30 10:04:00 Bimal Crum [facility] CBC WITH DIFF 2022-03-30 10:04:00 [facility]OLIC PANEL 2022-03-30 10:04:00 [facility] (NA, K, CL, CO2, GLUCOSE, [facility] BUN, CREATININE, CA) VANCOMYCIN RANDOM LEVEL 2022-03-30 10:04:[address] [facility] CBC WITH DIFF 2022-03-30 10:04:00 Bimal Crum [facility] BASIC METABOLIC PANEL 2022-03-30 10:04:00 [facility] (NA, K, CL, CO2, GLUCOSE, [facility] BUN, CREATININE, CA) VANCOMYCIN RANDOM LEVEL 2022-03-30 10:04:00 Radames, Bimal [facility] CBC WITH DIFF 2022-03-30 10:04:00 Bimal Crum [facility] POCT GLUCOSE (AUTOMATED) 2022-03-30 03:13:00 Parish Grimes [facility] POCT GLUCOSE (AUTOMATED) 2022-03-30 03:13:00 Parish Grimes [facility] POCT GLUCOSE (AUTOMATED) 2022-03-30 03:13:00 Parish Grimes [facility] POCT GLUCOSE (AUTOMATED) 2022-03-29 23:10:00 Parish Grimes [facility] POCT GLUCOSE (AUTOMATED) 2022-03-29 23:10:00 Parish Grimes [facility] POCT GLUCOSE (AUTOMATED) 2022-03-29 23:10:00 Parish Grimes [facility] POCT GLUCOSE (AUTOMATED) 2022-03-29 18:48:00 Parish Grimes [facility] POCT GLUCOSE (AUTOMATED) 2022-03-29 18:48:00 Parish Grimes [facility] POCT GLUCOSE (AUTOMATED) 2022-03-29 18:48:00 Parish Grimes [facility] POCT GLUCOSE (AUTOMATED) 2022-03-29 15:20:00 Parish Grimes [facility] POCT GLUCOSE (AUTOMATED) 2022-03-29 15:20:00 Parish Grimes [facility] POCT GLUCOSE (AUTOMATED) 2022-03-29 15:20:00 Parish Grimes [facility] MAGNESIUM 2022-03-29 11:37:00 Marty [facility] BASIC METABOLIC PANEL 2022-03-29 11:37:00 Mikal Ferguson [facility] (NA, K, CL, CO2, GLUCOSE, Medica l Branch BUN, CREATININE, CA) CBC WITH DIFF 2022-03-29 11:37:00 Marty [facility] MAGNESIUM 2022-03-29 11:37:00 Marty [facility] BASIC METABOLIC PANEL 2022-03-29 11:37:00 Marty [facility] (NA, K, CL, CO2, GLUCOSE, Medica l Branch BUN, CREATININE, CA) CBC WITH DIFF 2022-03-29 11:37:00 Marty [facility] MAGNESIUM 2022-03-29 11:37:00 Marty [facility] BASIC METABOLIC PANEL 2022-03-29 11:37:00 Marty [facility] (NA, K, CL, CO2, GLUCOSE, Medica l Branch BUN, CREATININE, CA) CBC WITH DIFF 2022-03-29 11:37:00 Marty [facility] POCT GLUCOSE (AUTOMATED) 2022-03-29 02:09:00 Praish Grimes [facility] POCT GLUCOSE (AUTOMATED) 2022-03-29 02:09:00 Parish Grimes [facility] POCT GLUCOSE (AUTOMATED) 2022-03-29 02:09:00 Parish Grimes [facility] ASPIRATE OR ABSCESS 2022-03-29 00:44:00 BraunRashid fraser [facility] CULTURE(AEROBIC/ANAEROBIC Medica l Branch ) AFB CULTURE 2022-03-29 00:44:00 BraunRashid [facility] FUNGUS (ROUTINE) CULTURE 2022-03-29 00:44:00 BraunRashid fraser A [facility] ASPIRATE OR ABSCESS 2022-03-29 00:44:00 Rashid Braun A [facility] CULTURE(AEROBIC/ANAEROBIC Medica l Branch ) AFB CULTURE 2022-03-29 00:44:00 BraunRashid A [facility] FUNGUS (ROUTINE) CULTURE 2022-03-29 00:44:00 Rashid Braun A [facility] ASPIRATE OR ABSCESS 2022-03-29 00:44:00 Rashid Braun [facility] CULTURE(AEROBIC/ANAEROBIC Medica l Branch ) AFB CULTURE 2022-03-29 00:44:00 BraunRashid A [facility] FUNGUS (ROUTINE) CULTURE 2022-03-29 00:44:00 Rashid Braun [facility] FL TIME OR 2022-03-29 00:18:00 BraunRashid Cait [facility] (NON-REPORTABLE) [facility] [place] TIME OR 2022-03-29 00:18:00 Braun Rashid Chavira [facility] (NON-REPORTABLE) [facility] [place] TIME OR 2022-03-29 00:18:00 BraunRashid [facility] (NON-REPORTABLE) [facility] INTUBATION 2022-03-28 22:52:00 Dennis Guidry [facility] HIP ORIF 2022-03-28 22:26:00 BraunRashid Cait [facility] WOUND VAC PLACEMENT 2022-03-28 22:26:[address] [facility] HIP ORIF 2022-03-28 22:26:00 Rashid Braun [facility] WOUND VAC PLACEMENT 2022-03-28 22:26:[address] [facility] NERVE BLOCK 2022-03-28 21:31:14 Daniel Mirza [facility] VANCOMYCIN TROUGH 2022-03-28 20:15:00 Radames [facility] VANCOMYCIN TROUGH 2022-03-28 20:15:00 Radames [facility] VANCOMYCIN TROUGH 2022-03-28 20:15:00 Radames [facility] POCT GLUCOSE (AUTOMATED) 2022-03-28 18:10:00 Parish Grimes [facility] POCT GLUCOSE (AUTOMATED) 2022-03-28 18:10:00 Parish Grimes [facility] POCT GLUCOSE (AUTOMATED) 2022-03-28 18:10:00 Parish Grimes [facility] POCT GLUCOSE (AUTOMATED) 2022-03-28 15:45:00 Parish Grimes [facility] POCT GLUCOSE (AUTOMATED) 2022-03-28 15:45:00 Parish Grimes [facility] POCT GLUCOSE (AUTOMATED) 2022-03-28 15:45:00 Parish Grimes [facility] HB ABO GROUPING 2022-03-28 12:33:00 Matt [facility] HB ABO GROUPING 2022-03-28 12:33:00 Gary [facility] HB ABO GROUPING 2022-03-28 12:33:00 [facility] BASIC METABOLIC PANEL 2022-03-28 10:26:00 Bimal Crum [facility] (NA, K, CL, CO2, GLUCOSE, [facility] BUN, CREATININE, CA) CBC WITH DIFF 2022-03-28 10:26:00 Bimal Crum [facility] VITAMIN D, 25-OH 2022-03-28 10:26:00 [facility]add [facility]b [facility] BASIC METABOLIC PANEL 2022-03-28 10:26:00 Bimal Crum [facility] (NA, K, CL, CO2, GLUCOSE, [facility] BUN, CREATININE, CA) CBC WITH DIFF 2022-03-28 10:26:00 Bimal Crum [facility] VITAMIN D, 25-OH 2022-03-28 10:26:00 Chadd Kolb [facility] BASIC METABOLIC PANEL 2022-03-28 10:26:00 Bimal Crum [facility] (NA, K, CL, CO2, GLUCOSE, [facility] BUN, CREATININE, CA) CBC WITH DIFF 2022-03-28 10:26:00 Bimal Crum [facility] VITAMIN D, 25-OH 2022-03-28 10:26:00 Chadd Kolb [facility] POCT GLUCOSE (AUTOMATED) 2022-03-28 05:49:00 Parish Grimes [facility] POCT GLUCOSE (AUTOMATED) 2022-03-28 05:49:00 Parish Grimes [facility] POCT GLUCOSE (AUTOMATED) 2022-03-28 05:49:00 Parish Grimes [facility] LACTIC ACID WHOLE BLOOD 2022-03-27 23:42:00 Jeromy Daigle [facility] LACTIC ACID WHOLE BLOOD 2022-03-27 23:42:00 Jeromy Daigle [facility] LACTIC ACID WHOLE BLOOD 2022-03-27 23:42:00 [facility]) 2022-03-27 23:36:00 Parish Grimes [facility] POCT GLUCOSE (AUTOMATED) 2022-03-27 23:36:00 Parish Grimes [facility] POCT GLUCOSE (AUTOMATED) 2022-03-27 23:36:00 Parish Grimes [facility] XR CHEST 1 VW 2022-03-27 23:30:00 [facility] XR CHEST 1 VW 2022-03-27 23:30:00 [facility] XR CHEST 1 VW 2022-03-27 23:30:00 [facility] XR FEMUR 2 VW LEFT 2022-03-27 21:04:00 Jeromy Daigle [facility] XR HAND 3+ VW LEFT 2022-03-27 21:04:00 Jeromy Daigle [facility] XR HIPS 2 VW LEFT 2022-03-27 21:04:00 Jeromy Daigle [facility] XR FEMUR 2 VW LEFT 2022-03-27 21:04:00 Jeromy Daigle [facility]i ty [facility] XR HAND 3+ VW LEFT 2022-03-27 21:04:00 Jeromy Daigle [facility] XR HIPS 2 VW LEFT 2022-03-27 21:04:00 Jeromy Daigle [facility] XR FEMUR 2 VW LEFT 2022-03-27 21:04:00 Jeromy Daigle [facility] XR HAND 3+ VW LEFT 2022-03-27 21:04:00 Jeromy Daigle [facility] XR HIPS 2 VW LEFT 2022-03-27 21:04:00 Jeromy Daigle [facility] LACTIC ACID WHOLE BLOOD 2022-03-27 19:56:00 [facility] LACTIC ACID WHOLE BLOOD 2022-03-27 19:56:00 [facility] LACTIC ACID WHOLE BLOOD 2022-03-27 19:56:00 [facility]EN 2022-03-27 19:55:00 [facility] C-REACTIVE PROTEIN 2022-03-27 19:55:00 [facility] COMP. METABOLIC PANEL 2022-03-27 19:55:00 [facility] ([id number]) [facility] SEDIMENTATION RATE 2022-03-27 19:55:00 [facility] CBC WITH DIFF 2022-03-27 19:55:00 Jeromy Daigle [facility] PROTHROMBIN TIME / INR 2022-03-27 19:55:00 Jeromy Daigle [facility] ACTIVATED PARTIAL 2022-03-27 19:55:00 Jeromy Daigle [facility] BLOOD CULTURE SCREEN 2022-03-27 19:55:00 [facility] C-REACTIVE PROTEIN 2022-03-27 19:55:00 [facility] COMP. METABOLIC PANEL 2022-03-27 19:55:00 Jeromy Daigle [facility] ([id number]) [facility] SEDIMENTATION RATE 2022-03-27 19:55:00 [facility] CBC WITH DIFF 2022-03-27 19:55:00 Jeromy Daigle [facility] PROTHROMBIN TIME / INR 2022-03-27 19:55:00 Jeromy Daigle [facility] ACTIVATED PARTIAL 2022-03-27 19:55:00 Jeromy Daigle [facility] BLOOD CULTURE SCREEN 2022-03-27 19:55:00 Jeromy Daigle [facility] C-REACTIVE PROTEIN 2022-03-27 19:55:[address] [facility] COMP. METABOLIC PANEL 2022-03-27 19:55:00 Jeromy Daigle [facility] ([id number]) [facility] [place] SEDIMENTATION RATE 2022-03-27 19:55:[address] [facility] CBC WITH DIFF 2022-03-27 19:55:00 Jeromy Daigle [facility] PROTHROMBIN TIME / INR 2022-03-27 19:55:00 Jeromy Daigle [facility] ACTIVATED PARTIAL 2022-03-27 19:55:00 Jeromy Daigle [facility] HB ECG ROUTINE & RHYTHM 2022-03-27 19:44:31 Jeromy Daigle [facility] HB ECG ROUTINE & RHYTHM 2022-03-27 19:44:31 Jeromy Daigle [facility] HB ECG ROUTINE & RHYTHM 2022-03-27 19:44:31 Jeromy Daigle [facility] CONSENT/REFUSAL FOR 2022-03-27 19:29:26 Doctor Unassigned, [facility] DIAGNOSIS AND TREATMENT [facility] [place] CONSENT/REFUSAL FOR 2022-03-27 19:29:26 Doctor Unassigned, [facility] DIAGNOSIS AND TREATMENT [facility] [place] CONSENT/REFUSAL FOR 2022-03-27 19:29:26 [facility]AUTOMATED) 2022-03-13 22:21:00 Dheeraj Barrios [facility] POCT GLUCOSE (AUTOMATED) 2022-03-13 22:21:00 Dheeraj Barrios [facility] POCT GLUCOSE (AUTOMATED) 2022-03-13 20:03:00 Dheeraj Barrios [facility] POCT GLUCOSE (AUTOMATED) 2022-03-13 20:03:00 Dheeraj Barrios [facility] FL TIME OR 2022-03-13 18:06:00 Chow, [facility] (NON-REPORTABLE) [facility] FL TIME OR 2022-03-13 18:06:[address] [facility] (NON-REPORTABLE) [facility] RAY RESECTION 2022-03-13 15:45:00 Dary [facility] NERVE BLOCK 2022-03-13 15:39:42 [facility] POCT GLUCOSE (AUTOMATED) 2022-03-13 15:14:00 Dheeraj Barrios [facility] POCT GLUCOSE (AUTOMATED) 2022-03-13 15:14:00 Dheeraj Barrios [facility] POCT GLUCOSE (AUTOMATED) 2022-03-13 15:05:00 Dheeraj Barrios [facility] POCT GLUCOSE (AUTOMATED) 2022-03-13 15:05:00 Dheeraj Barrios [facility] POCT GLUCOSE (AUTOMATED) 2022-03-13 03:44:00 Dheeraj Barrios [facility] POCT GLUCOSE (AUTOMATED) 2022-03-13 03:44:00 Dheeraj Barrios [facility] POCT GLUCOSE (AUTOMATED) 2022-03-12 22:24:00 Dheeraj Barrios [facility] POCT GLUCOSE (AUTOMATED) 2022-03-12 22:24:00 Dheeraj Barrios [facility] POCT GLUCOSE (AUTOMATED) 2022-03-12 17:43:00 Dheeraj Barrios [facility] POCT GLUCOSE (AUTOMATED) 2022-03-12 17:43:00 Dheeraj Barrios [facility] POCT GLUCOSE (AUTOMATED) 2022-03-12 13:35:00 Dheeraj Barrios [facility] POCT GLUCOSE (AUTOMATED) 2022-03-12 13:35:00 Dheeraj Barrios [facility] POCT GLUCOSE (AUTOMATED) 2022-03-12 02:57:00 Dheeraj Barrios [facility] POCT GLUCOSE (AUTOMATED) 2022-03-12 02:57:00 Dheeraj Barrios [facility] POCT GLUCOSE (AUTOMATED) 2022-03-11 22:03:00 Dheeraj Barrios [facility] POCT GLUCOSE (AUTOMATED) 2022-03-11 22:03:00 Dheeraj Barrios [facility] POCT GLUCOSE (AUTOMATED) 2022-03-11 19:02:00 Dheeraj Barrios [facility] POCT GLUCOSE (AUTOMATED) 2022-03-11 19:02:00 Dheeraj Barrios [facility] POCT GLUCOSE (AUTOMATED) 2022-03-11 19:02:00 Dheeraj Barrios [facility] POCT GLUCOSE (AUTOMATED) 2022-03-11 13:24:00 Dheeraj Barrios [facility] POCT GLUCOSE (AUTOMATED) 2022-03-11 13:24:00 Dheeraj Barrios [facility] POCT GLUCOSE (AUTOMATED) 2022-03-11 13:24:00 Dheeraj Barrios [facility] POCT GLUCOSE (AUTOMATED) 2022-03-11 02:40:00 Dheeraj Barrios [facility] POCT GLUCOSE (AUTOMATED) 2022-03-11 02:40:00 Dheeraj Barrios [facility] POCT GLUCOSE (AUTOMATED) 2022-03-11 02:40:00 Dheeraj Barrios [facility] POCT GLUCOSE (AUTOMATED) 2022-03-10 23:19:00 Dheeraj Barrios [facility] POCT GLUCOSE (AUTOMATED) 2022-03-10 23:19:00 Dheeraj Barrios [facility] POCT GLUCOSE (AUTOMATED) 2022-03-10 23:19:00 Dheeraj Barrios [facility] POCT GLUCOSE (AUTOMATED) 2022-03-10 18:22:00 [facility] 2022-03-10 18:22:00 [facility] PO[facility]SE (AUTOMATED) 2022-03-10 18:22:00 [facility] PO[facility]SE (AUTOMATED) 2022-03-10 18:22:00 De Paz, Bunny [facility] POCT GLUCOSE (AUTOMATED) 2022-03-10 13:29:00 De Paz, Bunny [facility] POCT GLUCOSE (AUTOMATED) 2022-03-10 13:29:00 De Paz, Bunny [facility] POCT GLUCOSE (AUTOMATED) 2022-03-10 13:29:00 De Paz, Bunny [facility] POCT GLUCOSE (AUTOMATED) 2022-03-10 13:29:00 De Paz, Bunny [facility] POCT GLUCOSE (AUTOMATED) 2022-03-10 01:52:00 De Paz, Bunny [facility] POCT GLUCOSE (AUTOMATED) 2022-03-10 01:52:00 De Paz, Bunny [facility] POCT GLUCOSE (AUTOMATED) 2022-03-10 01:52:00 De Paz, Bunny [facility] POCT GLUCOSE (AUTOMATED) 2022-03-10 01:52:00 De Paz, Bunny [facility] POCT GLUCOSE (AUTOMATED) 2022-03-09 23:33:00 De Paz, Bunny [facility] POCT GLUCOSE (AUTOMATED) 2022-03-09 23:33:00 De Paz, Bunny [facility] POCT GLUCOSE (AUTOMATED) 2022-03-09 23:33:00 De Paz, Bunny [facility] POCT GLUCOSE (AUTOMATED) 2022-03-09 23:33:00 De Paz, Bunny [facility] POCT GLUCOSE (AUTOMATED) 2022-03-09 17:28:00 De Paz, Bunny [facility] POCT GLUCOSE (AUTOMATED) 2022-03-09 17:28:00 De Paz, Bunny [facility] POCT GLUCOSE (AUTOMATED) 2022-03-09 17:28:00 De Paz, Bunny [facility] POCT GLUCOSE (AUTOMATED) 2022-03-09 17:28:00 De Paz, Bunny [facility] POCT GLUCOSE (AUTOMATED) 2022-03-09 13:36:00 De Paz, Bunny [facility] POCT GLUCOSE (AUTOMATED) 2022-03-09 13:36:00 Bunny De Paz [facility] POCT GLUCOSE (AUTOMATED) 2022-03-09 13:36:00 Bunny De Paz [facility] POCT GLUCOSE (AUTOMATED) 2022-03-09 13:36:00 Bunny De Paz [facility] CBC WITH DIFF 2022-03-09 10:49:00 Jessi Zacarias [facility] MAGNESIUM 2022-03-09 10:49:00 Deann [facility] BASIC METABOLIC PANEL 2022-03-09 10:49:00 Jessi Zacarias [facility] (NA, K, CL, CO2, GLUCOSE, Medica l Branch BUN, CREATININE, CA) PROTHROMBIN TIME / INR 2022-03-09 10:49:00 Jessi Zacarias [facility] MAGNESIUM 2022-03-09 10:49:00 Jessi Zacarias [facility] BASIC METABOLIC PANEL 2022-03-09 10:49:00 Jessi Zacarias [facility] (NA, K, CL, CO2, GLUCOSE, Medica l Branch BUN, CREATININE, CA) CBC WITH DIFF 2022-03-09 10:49:00 Jessi Zacarias [facility] PROTHROMBIN TIME / INR 2022-03-09 10:49:00 Jessi Zacarias [facility] MAGNESIUM 2022-03-09 10:49:00 Jessi Zacarias [facility] BASIC METABOLIC PANEL 2022-03-09 10:49:00 Jessi Zacarias [facility] (NA, K, CL, CO2, GLUCOSE, Medica l Branch BUN, CREATININE, CA) CBC WITH DIFF 2022-03-09 10:49:00 Jessi Zacarias [facility] PROTHROMBIN TIME / INR 2022-03-09 10:49:00 Jessi Zacarias [facility] MAGNESIUM 2022-03-09 10:49:00 Jessi Zacarias [facility] BASIC METABOLIC PANEL 2022-03-09 10:49:00 Jessi Zacarias [facility] (NA, K, CL, CO2, GLUCOSE, Medica l Branch BUN, CREATININE, CA) CBC WITH DIFF 2022-03-09 10:49:00 [facility] PROTHROMBIN TIME / INR 2022-03-09 10:49:00 Jessi Zacarias [facility] POCT GLUCOSE (AUTOMATED) 2022-03-09 02:22:00 [facility] Paz, [facility] ([facility]OMATED) 2022-03-09 02:22:00 [facility]az, [facility] PO[facility]SE (AUTOMATED) 2022-03-09 02:22:00 De Paz, Bunny [facility] POCT GLUCOSE (AUTOMATED) 2022-03-09 02:22:00 [facility]az, [facility] PO[facility]SE (AUTOMATED) 2022-03-08 21:51:00 De Paz, [facility] PO[facility]SE (AUTOMATED) 2022-03-08 21:51:00 De Paz, Bunny Borro [facility] POCT GLUCOSE (AUTOMATED) 2022-03-08 21:51:00 De Paz, [facility] PO[facility] (AUTOMATED) 2022-03-08 21:51:00 De Paz, Bunny Borro [facility] HB ABO GROUPING 2022-03-08 21:38:00 [facility] HB ABO GROUPING 2022-03-08 21:38:00 [facility] HB ABO GROUPING 2022-03-08 21:38:00 [facility] HB ABO GROUPING 2022-03-08 21:38:00 Gabbi [facility] POCT GLUCOSE (AUTOMATED) 2022-03-08 17:21:00 De Paz, [facility] PO[facility]SE (AUTOMATED) 2022-03-08 17:21:00 De Paz, [facility] PO[facility]UCOSE (AUTOMATED) 2022-03-08 17:21:00 De Paz, Bunny [facility] POCT GLUCOSE (AUTOMATED) 2022-03-08 17:21:00 De Paz, Bunny Borro [facility] POCT GLUCOSE (AUTOMATED) 2022-03-08 13:28:00 De Paz, Bunny Wellington [facility] POCT GLUCOSE (AUTOMATED) 2022-03-08 13:28:00 De PazBunny [facility] POCT GLUCOSE (AUTOMATED) 2022-03-08 13:28:00 De PazBunny [facility] POCT GLUCOSE (AUTOMATED) 2022-03-08 13:28:00 De PazBunny [facility] POCT GLUCOSE (AUTOMATED) 2022-03-08 12:23:00 De Paz, Bunny Wellington [facility] POCT GLUCOSE (AUTOMATED) 2022-03-08 12:23:00 De PazBunny [facility] POCT GLUCOSE (AUTOMATED) 2022-03-08 12:23:00 De PazBunny [facility] POCT GLUCOSE (AUTOMATED) 2022-03-08 12:23:00 De PazBunny [facility] CBC WITHOUT DIFF 2022-03-08 10:31:00 Jennifer [facility] BASIC METABOLIC PANEL 2022-03-08 10:31:00 Jennifer [facility] (NA, K, CL, CO2, GLUCOSE, Medica l Branch BUN, CREATININE, CA) MAGNESIUM 2022-03-08 10:31:[address] [facility] MAGNESIUM 2022-03-08 10:31:[address] [facility] BASIC METABOLIC PANEL 2022-03-08 10:31:00 Jennifer [facility] (NA, K, CL, CO2, GLUCOSE, Medica l Branch BUN, CREATININE, CA) CBC WITHOUT DIFF 2022-03-08 10:31:00 Jennifer [facility] MAGNESIUM 2022-03-08 10:31:[address] [facility] BASIC METABOLIC PANEL 2022-03-08 10:31:00 Jennifer [facility] (NA, K, CL, CO2, GLUCOSE, Medica l Branch BUN, CREATININE, CA) CBC WITHOUT DIFF 2022-03-08 10:31:00 Navdeep Rodriguez [facility] MAGNESIUM 2022-03-08 10:31:[address] [facility] BASIC METABOLIC PANEL 2022-03-08 10:31:00 Navdeep Rodriguez [facility] (NA, K, CL, CO2, GLUCOSE, Medica l Branch BUN, CREATININE, CA) CBC WITHOUT DIFF 2022-03-08 10:31:00 [facility]) 2022-03-08 02:33:00 De Paz, [facility] PO[facility]SE (AUTOMATED) 2022-03-08 02:33:00 De Paz, [facility] PO[facility]SE (AUTOMATED) 2022-03-08 02:33:00 De Paz, [facility] POCT [facility]UCOSE (AUTOMATED) 2022-03-08 02:33:00 De Paz, [facility] POCT GLUCOSE (AUTOMATED) 2022-03-07 23:54:00 De Paz, Bunny [facility] POCT GLUCOSE (AUTOMATED) 2022-03-07 23:54:00 De Paz, Bunny [facility] POCT GLUCOSE (AUTOMATED) 2022-03-07 23:54:00 De Paz, Bunny [facility] POCT GLUCOSE (AUTOMATED) 2022-03-07 23:54:00 De Paz, [facility] POCT GLUCOSE (AUTOMATED) 2022-03-07 18:33:00 De Paz, Bunny [facility] POCT GLUCOSE (AUTOMATED) 2022-03-07 18:33:00 De Paz, Bunny [facility] POCT GLUCOSE (AUTOMATED) 2022-03-07 18:33:00 De Paz, Bunny [facility] POCT GLUCOSE (AUTOMATED) 2022-03-07 18:33:00 De Paz, Bunny [facility] FL TIME OR 2022-03-07 14:52:00 Jose Bobo [facility] (NON-REPORTABLE) [facility] [place] TIME OR 2022-03-07 14:52:00 Jose [facility] (NON-REPORTABLE) [facility] FL TIME OR 2022-03-07 14:52:00 [facility] ([facility]) [facility] [place] TIME OR 2022-03-07 14:52:00 [facility] ([facility]) [facility] INTUBATION 2022-03-07 13:25:00 Brittany Mckinney [facility] ARTERIOGRAM 2022-03-07 12:56:00 Nereida [facility] ARTERIOGRAM 2022-03-07 12:56:00 Nereida [facility] ARTERIOGRAM 2022-03-07 12:56:00 Nereida [facility] POCT GLUCOSE (AUTOMATED) 2022-03-07 11:54:00 Bunny De Paz [facility] POCT GLUCOSE (AUTOMATED) 2022-03-07 11:54:00 Bunny De Paz [facility] POCT GLUCOSE (AUTOMATED) 2022-03-07 11:54:00 Bunny De Paz [facility] POCT GLUCOSE (AUTOMATED) 2022-03-07 11:54:00 Bunny De Paz [facility] CBC WITHOUT DIFF 2022-03-07 10:50:00 Jennifer [facility] BASIC METABOLIC PANEL 2022-03-07 10:50:00 Jennifer Navdeep [facility] (NA, K, CL, CO2, GLUCOSE, Medica l Branch BUN, CREATININE, CA) MAGNESIUM 2022-03-07 10:50:[address] [facility] MAGNESIUM 2022-03-07 10:50:[address] [facility] BASIC METABOLIC PANEL 2022-03-07 10:50:00 Jennifer [facility] (NA, K, CL, CO2, GLUCOSE, Medica l Branch BUN, CREATININE, CA) CBC WITHOUT DIFF 2022-03-07 10:50:00 Jennifer [facility] MAGNESIUM 2022-03-07 10:50:00 [facility]EL 2022-03-07 10:50:00 [facility] (NA, K, CL, CO2, GLUCOSE, Medica l Branch BUN, CREATININE, CA) CBC WITHOUT DIFF 2022-03-07 10:50:00 Jennifer [facility] MAGNESIUM 2022-03-07 10:50:00 [facility] BASIC METABOLIC PANEL 2022-03-07 10:50:00 [facility] (NA, K, CL, CO2, GLUCOSE, Medica l Branch BUN, CREATININE, CA) CBC WITHOUT DIFF 2022-03-07 10:50[facility]HYTHM 2022-03-07 03:18:16 [facility] & RHYTHM 2022-03-07 03:18:16 Britt[facility] POCT GLUCOSE (AUTOMATED) 2022-03-07 02:35:00 De PazBunny [facility] POCT [facility]SE (AUTOMATED) 2022-03-07 02:35:00 De PazBunny [facility] POCT GLUCOSE (AUTOMATED) 2022-03-07 02:35:00 De PazBunny [facility] POCT GLUCOSE (AUTOMATED) 2022-03-07 02:35:00 De PazBunny Eliz [facility] POCT GLUCOSE (AUTOMATED) 2022-03-07 00:28:00 De PazBunny [facility] POCT GLUCOSE (AUTOMATED) 2022-03-07 00:28:00 De PazBunny [facility] POCT GLUCOSE (AUTOMATED) 2022-03-07 00:28:00 De PazBunny Uni versity [facility] POCT GLUCOSE (AUTOMATED) 2022-03-07 00:28:00 De PazBunny Borro versity [facility] POCT GLUCOSE (AUTOMATED) 2022-03-06 19:34:00 De [facility]azBunny [facility] POCT GLUCOSE (AUTOMATED) 2022-03-06 19:34:00 De Paz, Bunny [facility] POCT GLUCOSE (AUTOMATED) 2022-03-06 19:34:00 De Paz, Bunny [facility] POCT GLUCOSE (AUTOMATED) 2022-03-06 19:34:00 De Paz, Bunny [facility] POCT GLUCOSE (AUTOMATED) 2022-03-06 15:36:00 De Paz, Bunny [facility] POCT GLUCOSE (AUTOMATED) 2022-03-06 15:36:00 De Paz, Bunny [facility] POCT GLUCOSE (AUTOMATED) 2022-03-06 15:36:00 De Paz, Bunny [facility] POCT GLUCOSE (AUTOMATED) 2022-03-06 15:36:00 De Paz, Bunny Wellington [facility] BAMBI MULTI LEVEL - BY 2022-03-06 14:46:32 BillDeann brizuela [facility] [place] VASCULAR LAB Medical Branch BAMBI MULTI LEVEL - BY 2022-03-06 14:46:32 BillDeann brizuela [facility] [place] VASCULAR LAB Medical Branch BAMBI MULTI LEVEL - BY 2022-03-06 14:46:32 BillDeann brizuela [facility] [place] VASCULAR LAB Medical Branch BAMBI MULTI LEVEL - BY 2022-03-06 14:46:32 BillDeann brizuela [facility] [place] VASCULAR LAB Medical Branch DUPLEX ARTERIAL ARM LEFT 2022-03-06 14:46:24 Billchata Sharadza Uni versity of [facility] BY VASCULAR LAB Medical Branch DUPLEX ARTERIAL ARM LEFT 2022-03-06 14:46:24 BillSharad brizuelaza Uni versity of [place] - BY VASCULAR LAB Medical Branch DUPLEX ARTERIAL ARM LEFT 2022-03-06 14:46:24 BillSharad brizuelaza [facility] [place] - BY VASCULAR LAB Medical Branch DUPLEX ARTERIAL ARM LEFT 2022-03-06 14:46:24 Shayne Sharadjacqueline Uni versity of [facility] BY VASCULAR LAB Medical Branch POCT GLUCOSE (AUTOMATED) 2022-03-06 02:51:00 De Paz, Bunny [facility] POCT GLUCOSE (AUTOMATED) 2022-03-06 02:51:00 De Paz, Bunny Uni versity [facility] POCT GLUCOSE (AUTOMATED) 2022-03-06 02:51:00 De Paz, Bunny Wellington [facility] POCT GLUCOSE (AUTOMATED) 2022-03-06 02:51:00 De Paz, Bunny Wellington [facility] POCT GLUCOSE (AUTOMATED) 2022-03-05 23:41:00 De Paz, Bunny [facility] POCT GLUCOSE (AUTOMATED) 2022-03-05 23:41:00 De Paz, Bunny [facility] POCT GLUCOSE (AUTOMATED) 2022-03-05 23:41:00 De Paz, Bunny Wellington [facility] POCT GLUCOSE (AUTOMATED) 2022-03-05 23:41:00 De Paz, Bunny [facility] MRSA / MSSA SCREEN BY 2022-03-05 22:10:00 Hamza, [facility] [place] PCR, [facility] Medical Branch MRSA / MSSA SCREEN BY 2022-03-05 22:10:00 Hamza, [facility] [place] PCR, [facility] MRSA / MSSA SCREEN BY 2022-03-05 22:10:00 Hamza, [facility] [place] PCR, [facility] MRSA / MSSA SCREEN BY 2022-03-05 22:10:00 Hamza, [facility] [place] PCR, [facility] POCT GLUCOSE (AUTOMATED) 2022-03-05 19:03:00 De Paz, Bunny Wellington vers[facility] POCT GLUCOSE (AUTOMATED) 2022-03-05 19:03:00 De Paz, Bunny Wellington [facility] POCT GLUCOSE (AUTOMATED) 2022-03-05 19:03:00 De Paz, Bunny [facility] POCT GLUCOSE (AUTOMATED) 2022-03-05 19:03:00 De Paz, Bunny Wellington [facility] POCT GLUCOSE (AUTOMATED) 2022-03-05 15:55:00 De Paz, Bunny [facility] POCT GLUCOSE (AUTOMATED) 2022-03-05 15:55:00 De Paz, Bunny [facility] POCT GLUCOSE (AUTOMATED) 2022-03-05 15:55:00 De Paz, Bunny Uni versity [facility] POCT GLUCOSE (AUTOMATED) 2022-03-05 15:55:00 Bunny De Paz Eliz [facility] CBC WITH DIFF 2022-03-05 11:12:00 Bill [facility] BASIC METABOLIC PANEL 2022-03-05 11:12:[address] [facility] (NA, K, CL, CO2, GLUCOSE, Medica l Branch BUN, CREATININE, CA) MAGNESIUM 2022-03-05 11:12:00 Bill [facility] SEDIMENTATION RATE 2022-03-05 11:12:00 Jennifer [facility] C-REACTIVE PROTEIN 2022-03-05 11:12:00 Jennifer [facility] MAGNESIUM 2022-03-05 11:12:00 Billchata [facility] C-REACTIVE PROTEIN 2022-03-05 11:12:00 Jennifer [facility] BASIC METABOLIC PANEL 2022-03-05 11:12:[address] [facility] (NA, K, CL, CO2, GLUCOSE, Medica l Branch BUN, CREATININE, CA) SEDIMENTATION RATE 2022-03-05 11:12:00 Jennifer [facility] CBC WITH DIFF 2022-03-05 11:12:00 Shayne [facility] MAGNESIUM 2022-03-05 11:12:00 Shayne [facility] C-REACTIVE PROTEIN 2022-03-05 11:12:00 Jennifer [facility] BASIC METABOLIC PANEL 2022-03-05 11:12:[address] [facility] (NA, K, CL, CO2, GLUCOSE, Medica l Branch BUN, CREATININE, CA) SEDIMENTATION RATE 2022-03-05 11:12:00 Jennifer [facility] CBC WITH DIFF 2022-03-05 11:12:00 Shayne [facility] MAGNESIUM 2022-03-05 11:12:00 Bill [facility] C-REACTIVE PROTEIN 2022-03-05 11:12:00 Jennifer [facility] BASIC METABOLIC PANEL 2022-03-05 11:12:[address] [facility] (NA, K, CL, CO2, GLUCOSE, Medica l Branch BUN, CREATININE, CA) SEDIMENTATION RATE 2022-03-05 11:12:00 Jennifer [facility] CBC WITH DIFF 2022-03-05 11:12:00 [facility] CBC WITH DIFF 2022-03-05 03:21:00 [facility] BASIC METABOLIC PANEL 2022-03-05 03:21:[address] [facility] (NA, K, CL, CO2, GLUCOSE, Medica [facility] BUN, CREATININE, CA) HEPATIC FUNCTION PANEL 2022-03-05 03:21:00 [facility] ([id number]) (ALB,T.PRO,[facility] T,BU/BC,ALT,AST,ALK PHOS) PROTHROMBIN TIME / INR 2022-03-05 03:21:00 [facility] BLOOD CULTURE SCREEN 2022-03-05 03:21:00 [facility] MAGNESIUM 2022-03-05 03:21:00 [facility] BLOOD CULTURE SCREEN 2022-03-05 03:21:00 [facility] [facility] MAGNESIUM 2022-03-05 03:21:00 [facility] HEPATIC FUNCTION PANEL 2022-03-05 03:21:00 [facility] ([id number]) (AL[facility].PRO,[facility] T,BU/BC,ALT,AST,ALK PHOS) BASIC METABOLIC PANEL 2022-03-05 03:21:[address] [facility] (NA, K, CL, CO2, GLUCOSE, Medica l Branch BUN, CREATININE, CA) CBC WITH DIFF 2022-03-05 03:21:00 [facility] PROTHROMBIN TIME / INR 2022-03-05 03:21:00 Shayne Sharadjacqueline [facility] BLOOD CULTURE SCREEN 2022-03-05 03:21:00 Shayne Sharadjacqueline General acute hospital MAGNESIUM 2022-03-05 03:21:00 Shayne [facility] HEPATIC FUNCTION PANEL 2022-03-05 03:21:00 [facility] ([id number] (ALB,T.PRO,BILI Medical Branch T,BU/BC,ALT,AST,ALK PHOS) BASIC METABOLIC PANEL 2022-03-05 03:21:[address] [facility] (NA, K, CL, CO2, GLUCOSE, Medica l Branch BUN, CREATININE, CA) CBC WITH DIFF 2022-03-05 03:21:00 Bill [facility] PROTHROMBIN TIME / INR 2022-03-05 03:21:00 [facility] BLOOD CULTURE SCREEN 2022-03-05 03:21:00 Shayne Sharadjacqueline General acute hospital MAGNESIUM 2022-03-05 03:21:00 Bill [facility] HEPATIC FUNCTION PANEL 2022-03-05 03:21:00 BillDeann [facility] ([id number]) (ALB,T.PRO,BILI Medical Branch T,BU/BC,ALT,AST,ALK PHOS) BASIC METABOLIC PANEL 2022-03-05 03:21:00 [facility] (NA, K, CL, CO2, GLUCOSE, Medica l Branch BUN, CREATININE, CA) CBC WITH DIFF 2022-03-05 03:21:00 Bill [facility] PROTHROMBIN TIME / INR 2022-03-05 03:21:00 [facility] GLYCOSYLATED HEMOGLOBIN 2022-03-05 03:20:00 Bill [facility] (A1C) [facility] [place] GLYCOSYLATED HEMOGLOBIN 2022-03-05 03:20:00 [facility] (A1C) [facility] [place] GLYCOSYLATED HEMOGLOBIN 2022-03-05 03:20:00 Shayne [facility] (A1C) [facility] GLYCOSYLATED HEMOGLOBIN 2022-03-05 03:20:00 Shayne [facility] (A1C) [facility] POCT GLUCOSE (AUTOMATED) 2022-03-05 02:51:00 De Paz Bunny [facility] POCT GLUCOSE (AUTOMATED) 2022-03-05 02:51:00 Zandra Bunny [facility] POCT GLUCOSE (AUTOMATED) 2022-03-05 02:51:00 Bunny De Paz [facility] POCT GLUCOSE (AUTOMATED) 2022-03-05 02:51:00 De Paz, Bunny [facility] XR HAND 3+ VW LEFT 2022-03-05 00:45:00 Billchata [facility] XR HAND 3+ VW LEFT 2022-03-05 00:45:00 Billchata [facility] XR HAND 3+ VW LEFT 2022-03-05 00:45:00 Shayne [facility] XR HAND 3+ VW LEFT 2022-03-05 00:45:00 Bill [facility] BLOOD CULTURE SCREEN 2022-02-06 01:32:00 Elvia Estrada [facility] BLOOD CULTURE SCREEN 2022-02-06 01:31:00 Natalie Shade [facility] BASIC METABOLIC PANEL 2022-02-06 01:00:00 Natalie [facility] (NA, K, CL, CO2, GLUCOSE, Medica l Branch BUN, CREATININE, CA) BASIC METABOLIC PANEL 2022-02-06 01:00:00 Natalie [facility] (NA, K, CL, CO2, GLUCOSE, Medica l Branch BUN, CREATININE, CA) CBC WITH DIFF 2022-02-06 00:59:00 Natalie [facility] PROTHROMBIN TIME / INR 2022-02-06 00:59:00 Elvia Estrada [facility] ACTIVATED PARTIAL 2022-02-06 00:59:00 Elvia Estrada [facility] CBC WITH DIFF 2022-02-06 00:59:00 Elvia Estrada [facility] ACTIVATED PARTIAL 2022-02-06 00:59:00 Elvia Estrada [facility] PROTHROMBIN TIME / INR 2022-02-06 00:59:00 Elvia Estrada [facility] XR HAND 3+ VW LEFT 2022-02-05 22:43:39 Elvia Estrada [facility] [place] XR HAND 3+ VW LEFT 2022-02-05 22:43:39 Elvia Estrada General acute hospital CONSENT/REFUSAL FOR 2022-02-05 22:20:55 Doctor Josse [facility] DIAGNOSIS AND TREATMENT [place] [facility] CONSENT/REFUSAL FOR 2022-02-05 22:20:55 Doctor Josse [facility] DIAGNOSIS AND TREATMENT [place] [facility] EMERGENCY SERVICES 2022-02-05 06:01:00 Doctor Josse [facility] AGREEMENTS AND [place] [facility] AUTHORIZATIONS CONSENT/REFUSAL FOR 2022-01-14 16:30:47 Doctor Edelamalia [facility] DIAGNOSIS AND TREATMENT [place] [facility] CONSENT/REFUSAL FOR 2022-01-14 16:30:47 Doctor Josse [facility] DIAGNOSIS AND TREATMENT [place] [facility] EMERGENCY SERVICES 2022-01-14 05:01:00 Doctor Edelamalia [facility] AGREEMENTS AND [place] [facility] AUTHORIZATIONS AUTHORIZATION FOR RELEASE 2022-01-14 05:01:00 Doctor Loaiza [facility] [place] [facility] XR FINGERS 2 VW LEFT 2021-12-25 14:42:11 Jeanette Warrenanne [facility] XR FINGERS 2 VW LEFT 2021-12-25 14:42:11 Jeanette Warrenanne [facility] COMP. METABOLIC PANEL 2021-12-25 14:27:00 Louie Warren [facility] ([id number]) [facility] [place] CBC WITH DIFF 2021-12-25 14:27:00 Louie Warren [facility] URINALYSIS 2021-12-25 14:27:00 Louie Warren [facility] CBC WITH DIFF 2021-12-25 14:27:00 Louie Warren [facility] URINALYSIS 2021-12-25 14:27:00 Louie Warren [facility] COMP. METABOLIC PANEL 2021-12-25 14:27:00 Louie Warren [facility] ([id number]) Medical Branch EMERGENCY SERVICES 2021-12-25 05:01:00 Doctor Unassigned, [facility] AGREEMENTS AND [place] [facility] [place] AUTHORIZATIONS ASSIGNMENT OF BENEFITS 2019-12-20 14:47:43 Doctor Unassigned, [facility] [place] [facility] POCT GLUCOSE (AUTOMATED) 2019-12-07 22:09:00 Yadira Nick [facility] POCT GLUCOSE (AUTOMATED) 2019-12-07 17:13:00 Yadira Nick [facility] BASIC METABOLIC PANEL 2019-12-07 14:24:[address] [facility] (NA, K, CL, CO2, GLUCOSE, Medica l Branch BUN, CREATININE, CA) CBC WITH DIFF 2019-12-07 14:24:00 Kwesi Gilman [place] [facility] POCT GLUCOSE (AUTOMATED) 2019-12-07 13:13:00 Yadira Nick [facility] POCT GLUCOSE (AUTOMATED) 2019-12-07 09:26:00 Yadira Nick [facility] POCT GLUCOSE (AUTOMATED) 2019-12-07 05:06:00 Yadira Nick [facility] POCT GLUCOSE (AUTOMATED) 2019-12-07 01:19:00 Yadira Nick [facility] POCT GLUCOSE (AUTOMATED) 2019-12-06 23:40:00 Yadira Nick [facility] FUNGUS (ROUTINE) CULTURE 2019-12-06 22:07:32 Yadira Nick [facility] TISSUE 2019-12-06 22:07:32 Yadira Nick [facility] CULTURE(AEROBIC/ANAEROBIC Medica l Branch ) FOOT DEBRIDEMENT 2019-12-06 20:36:00 [place] (ID NOW RAPID 2019-12-06 17:01:00 Missy Shabazz [facility] TESTING Medical Branch POCT GLUCOSE (AUTOMATED) 2019-12-06 16:56:00 Yadira Nick [facility] POCT GLUCOSE (AUTOMATED) 2019-12-06 13:16:00 Yadira Nick [facility] POCT GLUCOSE (AUTOMATED) 2019-12-06 09:16:00 Yadira Nick [facility] POCT GLUCOSE (AUTOMATED) 2019-12-06 05:24:00 Yadira Nick [facility] POCT GLUCOSE (AUTOMATED) 2019-12-06 01:53:00 Yadira Nick [facility] POCT GLUCOSE (AUTOMATED) 2019-12-05 22:05:00 Yadira Nick [facility] POCT GLUCOSE (AUTOMATED) 2019-12-05 16:57:00 Yadira Nick [facility] POCT GLUCOSE (AUTOMATED) 2019-12-05 12:48:00 Yadira Nick [facility] POCT GLUCOSE (AUTOMATED) 2019-12-05 09:58:00 Yadira Nick [facility] POCT GLUCOSE (AUTOMATED) 2019-12-05 05:22:00 Yadira Nick [facility] POCT GLUCOSE (AUTOMATED) 2019-12-04 21:27:00 Yadira Nick [facility] POCT GLUCOSE (AUTOMATED) 2019-12-04 16:49:00 Yadira Nick [facility] POCT GLUCOSE (AUTOMATED) 2019-12-04 13:32:00 Yadira Nick [facility] BASIC METABOLIC PANEL 2019-12-04 10:29:00 [facility] (NA, K, CL, CO2, GLUCOSE, Medica l Branch BUN, CREATININE, CA) CBC WITH DIFF 2019-12-04 10:29:00 [facility] [place] [facility] POCT GLUCOSE (AUTOMATED) 2019-12-04 04:55:00 Yadira Nick niversity of [facility] POCT GLUCOSE (AUTOMATED) 2019-12-04 01:08:00 Yadira Nick [facility] POCT GLUCOSE (AUTOMATED) 2019-12-03 21:12:00 Yadira Nick niversity [facility] POCT GLUCOSE (AUTOMATED) 2019-12-03 17:19:00 Yadira Nick U n[facility] POCT GLUCOSE (AUTOMATED) 2019-12-03 13:36:00 [facility]adira [facility] BASIC METABOLIC PANEL 2019-12-03 10:17:00 [facility] (NA, K, CL, CO2, GLUCOSE, Medica l Branch BUN, CREATININE, CA) CBC WITH DIFF 2019-12-03 10:17:00 [facility] POCT GLUCOSE (AUTOMATED) 2019-12-03 09:11:00 [facility]ira [facility] POCT GLUCOSE (AUTOMATED) 2019-12-03 05:46:00 [facility]ira [facility] POCT GLUCOSE (AUTOMATED) 2019-12-03 02:01:00 Yadira Nick [facility] POCT GLUCOSE (AUTOMATED) 2019-12-03 01:28:00 [facility] POCT GLUCOSE (AUTOMATED) 2019-12-02 23:04:00 Yadira Nick niversity [facility] POCT GLUCOSE (AUTOMATED) 2019-12-02 17:07:00 Yadira Nick [facility] POCT GLUCOSE (AUTOMATED) 2019-12-02 12:58:00 Yadira Nick [facility] POCT GLUCOSE (AUTOMATED) 2019-12-02 09:51:00 Yadira Nick [facility] POCT GLUCOSE (AUTOMATED) 2019-12-02 06:12:00 Yadira Nick U niversba [facility] VANCOMYCIN TROUGH 2019-12-02 03:35:00 Rafael A[facility] POCT GLUCOSE (AUTOMATED) 2019-12-02 02:22:00 Yadira Nick [facility] POCT GLUCOSE (AUTOMATED) 2019-12-01 21:43:00 Yadira Nick [facility] POCT GLUCOSE (AUTOMATED) 2019-12-01 17:27:00 Yadira Nick [facility] POCT GLUCOSE (AUTOMATED) 2019-12-01 13:27:00 Yadira Nick [facility] BASIC METABOLIC PANEL 2019-12-01 09:51:00 [facility] (NA, K, CL, CO2, GLUCOSE, Medica l Branch BUN, CREATININE, CA) CBC WITH DIFF 2019-12-01 09:51:00 [facility] POCT GLUCOSE (AUTOMATED) 2019-12-01 09:39:00 Yadira Nick [facility] POCT GLUCOSE (AUTOMATED) 2019-12-01 05:44:00 Yadira Nick [facility] POCT GLUCOSE (AUTOMATED) 2019-12-01 01:44:00 Yadira Nick [facility] HB ABO GROUPING 2019-11-30 22:40:00 [facility] POCT GLUCOSE (AUTOMATED) 2019-11-30 22:09:00 Yadira Nick [facility] POCT GLUCOSE (AUTOMATED) 2019-11-30 15:56:00 Yadira Nick [facility] VANCOMYCIN TROUGH 2019-11-30 14:21:00 [facility] POCT GLUCOSE (AUTOMATED) 2019-11-30 13:24:00 Yadira Nick [facility] BASIC METABOLIC PANEL 2019-11-30 09:22:00 [facility] (NA, K, CL, CO2, GLUCOSE, Medica l Branch BUN, CREATININE, CA) CBC WITH DIFF 2019-11-30 09:22:00 [facility] POCT GLUCOSE (AUTOMATED) 2019-11-30 09:21:00 [facility] POCT GLUCOSE (AUTOMATED) 2019-11-30 04:50:00 [facility] POCT GLUCOSE (AUTOMATED) 2019-11-30 01:35:00 [facility] POCT GLUCOSE (AUTOMATED) 2019-11-30 01:21:00 Yadira Nick niversity [facility] POCT GLUCOSE (AUTOMATED) 2019-11-29 23:08:00 Yadira Nick niversba [facility] POCT GLUCOSE (AUTOMATED) 2019-11-29 17:00:00 [facility] PO[facility] GLUCOSE (AUTOMATED) 2019-11-29 12:38:00 [facility] BASIC METABOLIC PANEL 2019-11-29 09:43:00 [facility] (NA, K, CL, CO2, GLUCOSE, Medica l Branch BUN, CREATININE, CA) CBC WITH DIFF 2019-11-29 09:43:00 [facility] POCT GLUCOSE (AUTOMATED) 2019-11-29 09:27:00 [facility]ira [facility] POCT GLUCOSE (AUTOMATED) 2019-11-29 04:43:00 [facility] BASIC METABOLIC PANEL 2019-11-29 03:53:00 [facility] (NA, K, CL, CO2, GLUCOSE, Medica l Branch BUN, CREATININE, CA) POCT GLUCOSE (AUTOMATED) 2019-11-29 01:37:00 [facility]ira [facility] POCT GLUCOSE (AUTOMATED) 2019-11-28 22:23:00 Yadira Nick niversity [facility] POCT GLUCOSE (AUTOMATED) 2019-11-28 19:56:00 Yadira Nick niversity [facility] POCT GLUCOSE (AUTOMATED) 2019-11-28 16:55:00 Yadira Nick [facility] POCT GLUCOSE (AUTOMATED) 2019-11-28 13:42:00 Yadira Nick [facility] BASIC METABOLIC PANEL 2019-11-28 10:24:00 [facility] (NA, K, CL, CO2, GLUCOSE, Medica l Branch BUN, CREATININE, CA) CBC WITH DIFF 2019-11-28 10:24:00 [facility] POCT GLUCOSE (AUTOMATED) 2019-11-28 09:01:00 Yadira Nick [facility] POCT GLUCOSE (AUTOMATED) 2019-11-28 05:10:00 Yadira Nick [facility] VANCOMYCIN TROUGH 2019-11-28 04:52:00 Carlos Bee [facility] POCT GLUCOSE (AUTOMATED) 2019-11-28 01:09:00 Yadira Nick [facility] POCT GLUCOSE (AUTOMATED) 2019-11-27 22:10:00 Yadira Nick [facility] FL TIME OR 2019-11-27 21:38:42 [facility] (NON-REPORTABLE) [facility] FUNGUS (ROUTINE) CULTURE 2019-11-27 20:45:56 Yadira Nick [facility] TISSUE 2019-11-27 20:45:56 Yadira Nick [facility] CULTURE(AEROBIC/ANAEROBIC Medica l Branch ) ASPIRATE OR ABSCESS 2019-11-27 20:28:15 Yadira Nick [facility] CULTURE(AEROBIC/ANAEROBIC Medica l Branch ) AFB CULTURE 2019-11-27 20:28:15 Yadira Nick [facility] FUNGUS (ROUTINE) CULTURE 2019-11-27 20:28:15 Yadira Nick [facility] FUNGUS (ROUTINE) CULTURE 2019-11-27 20:23:39 Yadira Nick [facility] TISSUE 2019-11-27 20:23:39 Yadira Nick [facility] CULTURE(AEROBIC/ANAEROBIC Medica l Branch ) SURGICAL PATHOLOGY EXAM 2019-11-27 20:07:00 Yadira [facility] TOE AMPUTATION 2019-11-27 18:00:00 Yadira Nick [facility] ARTERIOGRAM 2019-11-27 18:00:00 Yadira Nick [facility] POCT GLUCOSE (AUTOMATED) 2019-11-27 14:00:00 Sai Lomas [facility] POCT GLUCOSE (AUTOMATED) 2019-11-27 10:12:00 Sai Lomas [facility] MAGNESIUM 2019-11-27 09:58:00 [facility] BASIC METABOLIC PANEL 2019-11-27 09:58:00 [facility] (NA, K, CL, CO2, GLUCOSE, Medica l Branch BUN, CREATININE, CA) CBC WITH DIFF 2019-11-27 09:58:00 [facility] ABORH CONFIRMATION 2019-11-27 09:55:00 Sai Lomas [facility] HB ABO GROUPING 2019-11-27 08:50:00 [facility] POCT GLUCOSE (AUTOMATED) 2019-11-27 04:27:00 Sai Lomas [facility] POCT GLUCOSE (AUTOMATED) 2019-11-27 01:10:00 Sai Lomas [facility] BAMBI MULTI LEVEL BY 2019-11-26 21:55:51 [facility] VASCULAR LAB Medical Branch MR FOOT LEFT W WO 2019-11-26 21:23:56 Molly Greene [facility] CONTRAST A Medical Branch BILATERAL DUPLEX SCAN OF 2019-11-26 19:45:36 Alvarado Saul [facility] ARTERY BY VASCULAR LAB Medical B ranch POCT GLUCOSE (AUTOMATED) 2019-11-26 19:06:00 Sai Lomas [facility] WOUND/ASPIRATE OR ABSCESS 2019-11-26 16:45:00 Braulio Jovel [facility] WOUND CULTURE 2019-11-26 16:45:00 Braulio Jovel [facility] POCT GLUCOSE (AUTOMATED) 2019-11-26 14:09:00 Sai Lomas [facility] LACTIC ACID WHOLE BLOOD 2019-11-26 09:33:00 Carlos Bee [facility] POCT GLUCOSE (AUTOMATED) 2019-11-26 09:27:00 Sai Lomas [facility] XR FOOT <3 VW LEFT 2019-11-26 02:20:[address] [facility] COVID-19 (ID NOW RAPID 2019-11-26 02:18:00 Miky Fajardo [facility] TESTING) Medical Branch BLOOD CULTURE SCREEN 2019-11-26 02:13:00 Miky Fajardo [facility] COMP. METABOLIC PANEL 2019-11-26 02:13:00 Miky Fajardo [facility] ([id number]) [facility] LIPID PANEL (90073)(TOTAL 2019-11-26 02:13:00 Carlos Bee [facility] CHOLESTEROL, [facility] TRIGLYCERIDES, HDL) CBC WITH DIFF 2019-11-26 02:13:00 Miky Fajardo [facility] GLYCOSYLATED HEMOGLOBIN 2019-11-26 02:13:00 Carlos Bee [facility] (A1C) [facility] LACTIC ACID WHOLE BLOOD 2019-11-26 02:13:00 Miky Fajardo [facility] BLOOD CULTURE SCREEN 2019-11-26 01:50:00 Miky Fajardo [facility] NOTICE OF PRIVACY 2019-11-26 01:12:21 Doctor Josse, [facility] PRACTICES [place] [place] CONSENT/REFUSAL FOR 2019-11-26 01:10:14 Doctor Josse [facility] DIAGNOSIS AND TREATMENT [place] AGREEMENTS AUTHORIZATIONS 2019-11-25 05:01:00 Doctor Josse, [facility] AND IRREVOCABLE [place] [facility] [place] ASSIGNMENTS (FORM 2001) Plan of Care Planned Activity Planned Date Details Comments Source Goal Plan of Care Note [code = 97225-5] Goal Plan of Care Note [code = 89309-8] Goal Plan of Care Note [code = 63959-1] Goal Plan of Care Note [code = 52858-4] Goal Plan of Care Note [code = 29533-0] Goal Plan of Care Note [code = 72913-4] Goal Plan of Care Note [code = 36315-9] Goal Plan of Care Note [code = 98021-4] Goal Plan of Care Note [code = 45152-8] Goal Plan of Care Note [code = 22860-8] Goal Plan of Care Note [code = 15097-2] Goal Plan of Care Note [code = 49568-2] Goal Plan of Care Note [code = 69591-8] Goal Plan of Care Note [code = 85476-9] Goal Plan of Care Note [code = 12529-1] Goal Plan of Care Note [code = 29076-1] Goal Plan of Care Note [code = 10575-0] Goal Plan of Care Note [code = 41850-8] Goal Plan of Care Note [code = 26589-7] Goal Plan of Care Note [code = 77304-1] Goal Plan of Care Note [code = 16483-4] Goal Plan of Care Note [code = 06754-7] Goal Plan of Care Note [code = 28095-7] Goal Plan of Care Note [code = 52310-0] Goal Plan of Care Note [code = 30943-1] Goal Plan of Care Note [code = 89566-8] Goal Plan of Care Note [code = 37787-1] Goal Plan of Care Note [code = 09817-1] Goal Plan of Care Note [code = 42677-9] Goal Plan of Care Note [code = 23448-9] Goal Plan of Care Note [code = 01885-2] Goal Plan of Care Note [code = 79912-8] Goal Plan of Care Note [code = 89460-4] Goal Plan of Care Note [code = 80450-8] Goal Plan of Care Note [code = 13097-2] Goal Plan of Care Note [code = 39567-9] Goal Plan of Care Note [code = 75752-6] Encounters Start End Encounter Admission Attending Care Care Encounter Source Date/Time Date/Time Type Type Clinicians Facility Department ID 2022-06-11 2022-06-11 Outpatient Anahi FOOTE [facility] [id number] [facility] 09:20:00 09:20:00 MAGALY ity [facility] 2022-05-19 2022-05-19 Patient MARQUIS Burroughs [id number] Univers 00:00:00 00:00:00 Outreach Alexandra E SAM[place] 350.1.13.10 [id number] [address] 2022-05-14 2022-05-14 Outpatient R DARY [facility] [id number] Univers 13:30:00 14:58:51 MAGALY itkristian [facility] 2022-05-14 2022-05-14 Office Dary [facility] [id number] [facility] 13:30:00 14:58:51 Visit Magaly PERALES 350.1.13.10 [place] [id number] [address] 2022-05-14 2022-05-14 Patient MARQUIS Burroughs [id number] Univers 00:00:00 00:00:00 Outreach Alexandra E SAMUEL 350.1.13.10 [id number] [address] 2022-05-09 2022-05-09 Patient Robyn Canas [id number] Univers 00:00:00 00:00:00 Outreach E SAMUEL 350.1.13.10 [id number] [address] 2022-05-08 2022-05-08 Outpatient SOL [facility] [id number] 023 [place] 08:53:04 08:53:04 [address] [place] 2022-05-07 2022-05-07 Outpatient R JAGJIT ROJAS [facility] [id number] Univers 14:00:00 14:00:00 ity [facility] 2022-04-29 2022-04-29 Outpatient R APARNA [facility] [id number] Univers 09:19:35 23:59:00 [facility] 2022-04-29 2022-04-29 [facility] [id number] Univers 09:19:35 23:59:00 Encounter Rashid A PRIMARY 350.1.13.10 [place] [id number] Mo dical [address] 2022-04-29 2022-04-29 Office [facility] [id number] Univers 09:00:00 09:57:51 Visit Rashid A PRIMARY 350.1.13.10 it [place] [id number] Mo dical [address] 2022-04-29 2022-04-29 Orders Doctor MAGALY [id number] Univers 00:00:00 00:00:00 Only Unassigned, ALEXANDER 350.1.13.10 ity of [place] [facility] 4.2.7.2.686 Jay as [phone] [facility] [address] [place] 2022-04-23 2022-04-23 [facility] [id number] Univers 09:10:00 10:22:36 MAGALY cosme [facility] 2022-04-23 2022-04-23 Office [facility] [id number] Univers 09:10:00 10:22:36 Visit Magaly SPECIALTY 350.1.13.10 [place] [id number] Mo dical VICTORY 198 [facility] 2022-04-10 2022-04-10 Transition MARQUIS Rincon [id number] Univers 00:00:00 00:00:00 of Care Tatiana SAMUEL 350.1.13.10 [place] [id number] [facility] [address] 2022-04-08 2022-04-08 Transition MARQUIS Rincon [id number] Univers 00:00:00 00:00:00 of Care Tatiana SAMUEL 350.1.13.10 [place] [id number] [facility] [address] 2022-03-27 2022-04-07 Inpatient X [facility]ANDRA [facility] [id number] Univers 13:25:00 20:10:00 BUNNY ity of [facility] 2022-03-27 2022-04-07 Hospital Jeromy Daigle 1.2.840. 114 [id number] Univers 13:25:00 20:10:00 Encounter Parish Grimes 350.1.1 3.10 ity of [facility] Azucena [facility] 4.2.7.2.686 Bunny Quiñonez [id number] [facility] [address] 2022-04-02 2022-04-02 Surgery BraunAMENA fraser [id number] Univers 14:05:00 15:30:00 Rashid A ALEXANDER 350.1.13.10 it y of HOSPITAL [id number] Jay as [id number] [facility] [address] 2022-04-01 2022-04-01 Outpatient R APARNA [facility] [id number] Univers 13:15:00 13:15:00 RASHID ity of [place] [facility] 2022-03-28 2022-03-28 Anesthesia Polo Mulligan 1.2.840.1 14 [id number] Univers 16:41:00 19:05:00 Event Js ShaikhY 350.1. 13.10 ity of [facility] 4.2.7.2.686 [place] as [phone] [facility] [address] 2022-03-28 2022-03-28 Surgery Aparna AMENA 1.2.840.114 [id number] Univers 14:55:00 17:34:00 Rashid A ALEXANDER 350.1.13.10 it y of HOSPITAL 4.2.7.2.686 [place] [phone] [facility] [address] 2022-03-27 2022-03-27 [place] 50[address]-0 Ford Hinds 09:29:32 09:29:32 1229 F Jaya 2022-03-27 2022-03-27 Outpatient [id number]- [id number] 1c 496beb-1 00:00:00 00:00:00 Visit 5365-3091 528-4395-8 -847a-c96 47a-c964d7 2l6378m01 145e78 2022-03-27 2022-03-27 Telephone [facility] 1.2.840.114 994 [id number] [facility] 00:00:00 00:00:00 Rashid A PRIMARY 350.1.13.10 it [place] [phone] Mo dical [address] 2022-03-18 2022-03-18 Outpatient [facility] 02846-3 022 Guzman 14:58:49 14:58:49 1220 F Jaya 2022-03-18 2022-03-18 Outpatient [id number]- [id number] 8w826x-0 00:00:00 00:00:00 Visit 29be-49f6 9be-49f6-9 -1e24-n02 o36-a93534 550240w53 342a28 2022-03-14 2022-03-14 Transition MARQUIS Rincon 1.2.840.114 [id number] [id number] Univers 00:00:00 00:00:00 of Care Tatiana SAMUEL 350.1.13.10 it[place] of [place] [phone] [facility] [address] 2022-03-04 2022-03-13 Inpatient [facility] [id number] Univers 16:52:00 18:01:00 DHEERAJ cosme of [facility] 2022-03-04 2022-03-13 Hospital Bunny De Paz 1.2.840.1 14 [id number] Univers 16:52:00 18:01:00 Encounter Dheeraj Barrios 350.1.13 .10 ity of [facility] 4.2.7.2.686 [place] [phone] [facility] [address] 2022-03-13 2022-03-13 Anesthesia Franklyn Sesay 1.2.840.1 14 [id number] Univers 10:02:00 12:15:00 Event Fede Gordon 350.1.13.10 ity of HOSPITAL 4.2.7.2.686 [place] [phone] [facility] [address] 2022-03-13 2022-03-13 Surgery AMENA Foote 1.2.272.729 3670 [id number] Univers 09:31:00 11:09:00 Magaly ALEXANDER 350.1.13.10 it y of HOSPITAL 4.2.7.2.686 [place] [phone] [facility] [address] 2022-03-09 2022-03-09 Anesthesia Behzad Williamson 1.2.840.1 [id number] Univers 16:26:14 16:26:14 Event 20564.1.1 ity of 3.104.2.7 [place] .3.293572 Medica l .8 Branch 2022-03-07 2022-03-07 Anesthesia Sriram Cobian 1.2.840.1 [id number] Univers 07:15:00 09:05:00 Event 97027.1.1 ity of 3.104.2.7 [place] .3.657996 Medica l .8 Branch 2022-03-07 2022-03-07 Surgery Nereida, 1.2.840.7 [id number] Univers 06:55:00 09:03:00 Bryan 55374.1.1 ity of 3.104.2.7 [place] .3.128816 Medica l .8 Branch 2022-03-05 2022-03-05 Outpatient R DARY, [facility] [id number] Univers 10:50:00 10:50:00 MAGALY ity of [facility] 2022-03-05 2022-03-05 Telephone Dary, 1.2.840.4 [id number] Univers 00:00:00 00:00:00 Magaly 09980.1.1 ity of 3.104.2.7 [place] .3.373120 Medica l .8 Branch 2022-03-05 2022-03-05 [facility], 1.2.840.9 [id number] Univers 00:00:00 00:00:00 Management Care 42993.1.1 i ty of Transition 3.104.2.7 [place] .3.960611 Medica l .8 [place] 2022-03-04 2022-03-04 Travel 1.2.840.1 1.2.681.476 3001 [id number] Univers 00:00:00 00:00:00 85995.1.1 350.1.13.10 ity of 3.104.2.7 [place].698 [place] .3.350[place] 084.8 Medica l .8 [place] 2022-02-27 2022-02-27 Outpatient [facility] 86277-4 022 Guzman 11:40:20 11:40:20 1201 F Jaya 2022-02-26 2022-02-26 Letter Le, Phi-Bárbara 1.2.840.8 [id number] Univers 00:00:00 00:00:00 (Out) Aren 45094.1.1 ity of 3.104.2.7 [place] .3.846582 Medica l .8 [place] 2022-02-12 2022-02-12 Outpatient R FAILGARRICK, [facility] 55512 [id number] Univers 10:10:00 10:35:28 MAGALY ity of [facility] 2022-02-12 2022-02-12 Office Faillace, 1.2.840.3 [id number] [id number] Univers 10:10:00 10:35:28 Visit Magaly 82078.1.1 ity of 3.104.2.7 [place] .3.112551 Medica l .8 [place] 2022-02-12 2022-02-12 Travel 1.2.840.1 1.2.805.208 5762 9532 Univers 00:00:00 00:00:00 89742.1.1 350.1.13.10 ity of 3.104.2.7 [place].698 [place] .3.67[place] 084.8 Medica l .8 [place] 2022-02-05 2022-02-05 Emergency X NATALIE [facility] ERT [id number] Univers 16:19:00 22:45:00 ELVIA cosme [facility] 2022-02-05 2022-02-05 Emergency Natalie, 1.2.840.2 [id number] [id number] Univers 16:19:00 22:45:00 Elvia Caraballo 42431.1.1 i ty of 3.104.2.7 [place] .3.791864 Medica l .8 [place] 2022-02-05 2022-02-05 Travel 1.2.840.1 1.2.248.123 4607 5498 Univers 00:00:00 00:00:00 78329.1.1 350.1.13.10 ity of 3.104.2.7 [place].3.698 [place] .3.704236 084.8 Medica l .8 [place] 2022-02-04 2022-02-04 Outpatient [facility] 48577-4 022 Guzman 14:32:55 14:32:55 1108 F [place] 2022-02-04 2022-02-04 Outpatient [id number]- [id number] 6c 6739ae-9 00:00:00 00:00:00 Visit 1009-3132 965-4646-a -yl30-h97 s91-q65uyw xdg245967 935045 2645-10-18 2022-01-14 Emergency X TANA [facility] ERT [id number] Univers 11:43:00 13:30:00 GERMANIAMARISELA cosme [facility] 2022-01-14 2022-01-14 Emergency Tana, 1.2.840.1 [id number] [id number] Univers 11:43:00 13:30:00 Miky Alyssa 00993.1.1 ity of 3.104.2.7 [place] .3.220756 Medica l .8 [place] 2022-01-14 2022-01-14 Travel 1.2.840.1 1.2.892.972 5556 5891 Univers 00:00:00 00:00:00 99909.1.1 350.1.13.10 ity of 3.104.2.7 [place].3.698 [place] .3.523255 084.8 Medica l .8 Branch 2021-12-25 2021-12-25 Emergency X WARREN, [facility] ERT [id number] Univers 09:09:00 13:30:00 LOUIE ity of [facility] 2021-12-25 2021-12-25 Emergency Warren, 1.2.840.4 [id number] Univers 09:09:00 13:30:00 Louie 75661.1.1 ity of 3.104.2.7 [place] .3.422075 Medica l .8 Branch 2021-11-07 2021-11-07 Outpatient i715t1bc- [id number] d1 85e9if-0 00:00:00 00:00:00 Visit 12ef-4933 2ef-4933-9 -912d-2be 12d-2be2c6 3r1739ykm 215abf 2021-06-03 2021-06-03 Patient MARQUIS Burroughs 1.2.840.114 [id number] Univers 00:00:00 00:00:00 Outreach Alexandra E SAMUEL 350.1.13.10 [place] [phone] [address] 2021-04-04 2021-04-04 Patient MARQUIS Burroughs 1.2.840.114 [id number] Univers 00:00:00 00:00:00 Outreach Alexandra E SAMUEL 350.1.13.10 [place] [id number] [place] [address] Branch 2021-02-13 2021-02-13 Patient MARQUIS Burroughs 1.2.840.114 [id number] Univers 00:00:00 00:00:00 Outreach Laexandra E SAMUEL 350.1.13.10 [place] [phone] [address] 2021-01-11 2021-01-11 Patient Marquis Burroughs 1.2.840.114 [id number] Univers 00:00:00 00:00:00 Outreach Alexandra E Samuel 350.1.13.10 i ty [place] [id number] [address] 2020-12-10 2020-12-10 Patient Janelle Burroughssam 1.2.840.114 [id number] Univers 00:00:00 00:00:00 Outreach Alexandra E Samuel 350.1.13.10 i ty [place] [id number] [address] 2020-10-31 2020-10-31 Patient Janelle Burroughssam 1.2.840.114 [id number] Univers 00:00:00 00:00:00 Outreach Alexandra E Samuel 350.1.13.10 i ty [place] [phone] [address] 2020-09-18 2020-09-18 Patient ColfaxJanellesam 1.2.840.114 [id number] Univers 00:00:00 00:00:00 Outreach Alexandra E Samuel 350.1.13.10 i ty [place] [phone] [address] 2020-08-03 2020-08-03 Patient ManjeetJanellesam 1.2.840.114 [id number] Univers 00:00:00 00:00:00 Outreach Alexandra E Samuel 350.1.13.10 i ty [place] [id number] [address] 2020-07-17 2020-07-17 [facility] 1.2.840.114 [id number] Univers 08:48:00 09:50:16 Visit Yadira Ann 350.1.13.10 ity [place] Profess[place] [phone] Mo dical [facility] 205 [facility] 2020-07-17 2020-07-17 Outpatient R [facility] [id number] Univers 09:00:00 09:00:00 YADIRA siu [facility] 2020-07-12 2020-07-12 Patient Marquis Burroughs 1.2.840.114 [id number] Univers 00:00:00 00:00:00 Outreach Alexandra E Samuel 350.1.13.10 i ty [place] [id number] [address] 2020-06-18 2020-06-18 [facility] [id number] Univers 09:30:00 09:30:00 EDA itkristian [facility] 2020-06-15 2020-06-15 Office [facility] 1.2.840.114 [id number] Univers 08:34:05 10:34:19 Visit Yadira Ann 350.1.13.10 ity of [place] [phone] [address] 2020-06-15 2020-06-15 Outpatient R [facility] [id number] Univers 08:30:00 08:30:00 YADIRA paulykristian siu [facility] 2020-04-12 2020-04-12 Patient Janelle Burroughssam 1.2.840.114 [id number] Univers 00:00:00 00:00:00 Outreach Alexandra Mirtha Samuel 350.1.13.10 i ty [place] [id number] [address] 2020-03-13 2020-03-13 Office [facility] 1.2.840.114 [id number] Univers 09:13:42 11:04:48 Visit Yadira Ann 350.1.13.10 ity of [place] [phone] [address] 2020-03-13 2020-03-13 Outpatient R [facility] [id number] Univers 10:15:00 10:15:00 YADIRA siu [facility] 2020-03-09 2020-03-09 Patient Marquis Burroughs 1.2.840.114 [id number] Univers 00:00:00 00:00:00 Outreach Alexandra E Samuel 350.1.13.10 i ty [place] [id number] [address] 2020-02-10 2020-02-10 Office [facility] 1.2.840.114 [id number] Univers 08:49:26 10:05:10 Visit Yadira Seth 350.1.13.10 it[place] of [place] [phone] [address] 2020-02-10 2020-02-10 Outpatient R [facility] [id number] Univers 09:15:00 09:15:00 YADIRA siu [facility] 2020-02-07 2020-02-07 Patient Marquis Burroughs 1.2.840.114 [id number] Univers 00:00:00 00:00:00 Outreach Alexandra E Samuel 350.1.13.10 i ty [place] [id number] [address] 2020-01-13 2020-01-13 Office [facility] 1.2.840.114 [id number] [facility] 08:44:53 10:04:55 Visit Yadira Seth 350.1.13.10 ity of [place]2.[place] [phone] [address] 2020-01-13 2020-01-13 Outpatient R [facility] [id number] Univers 09:00:00 09:00:00 YADIRA siu [facility] 2020-01-12 2020-01-12 Patient Marquis Burroughs 1.2.840.114 [id number] Univers 00:00:00 00:00:00 Outreach Alexandra E Samuel 350.1.13.10 i ty [place] [id number] [address] 2020-01-12 2020-01-12 Patient Marquis Burroughs 1.2.840.114 [id number] Univers 00:00:00 00:00:00 Outreach Alexandra E Samuel 350.1.13.10 i ty [place] [id number] [address] 2020-01-11 2020-01-11 Patient Marquis Burroughs 1.2.840.114 [id number] Univers 00:00:00 00:00:00 Outreach Alexandra E Samuel 350.1.13.10 i ty [place] [phone] [address] 2020-01-06 2020-01-06 Outpatient R [facility] [id number] Univers 10:45:00 10:45:00 YADIRA siu [facility] 2020-01-06 2020-01-06 Patient Marquis Burroughs 1.2.840.114 [id number] Univers 00:00:00 00:00:00 Outreach Alexandra E Samuel 350.1.13.10 i ty [place] [id number] [address] 2020-01-04 2020-01-04 Transition RinconMarquis 1.2.840.114 [id number] [id number] Univers 00:00:00 00:00:00 of Care Tatiana Samuel 350.1.13.10 ity [place] [id number] [address] 2019-12-28 2019-12-28 Telephone [facility] 1.2.840.114 [id number] [id number] Univers 00:00:00 00:00:00 Yadira Ann 350.1.13.10 it[place] of [place] [phone] Mo dical nal [address] [place] [address] 2019-12-23 2019-12-23 [facility] 1.2.840.114 7 [id number] Univers 00:00:00 00:00:00 Francisco Ann 350.1.13.10 i ty [place] [phone] Mo dical nal 044 [facility] 2019-12-22 2019-12-22 Patient Robyn Canas 1.2.840.114 [id number] Univers 00:00:00 00:00:00 Outreach E Samuel 350.1.13.10 i ty [place] [phone] [address] 2019-12-21 2019-12-21 Patient Kam [facility] 1.2.840.114 [id number] Univers 00:00:00 00:00:00 Outreach Paula [facility] 350.1.13.10 i ty of [place] 4.2.7.2.686 [place] Professio [phone] [address] Office [facility] 2019-12-21 2019-12-21 Patient Marquis Burroughs 1.2.840.[address] [place] [address] 00:00:00 00:00:00 Outreach Alexandra E Samuel 350.1.13.10 i ty [place] [id number] [address] 2019-12-20 2019-12-20 Office [facility] 1.2.840.114 [id number] Univers 15:39:02 16:36:37 Visit Francisco Ann 350.1.13.10 i ty of [place]2.[place] [phone] [facility] 044 [facility] 2019-12-20 2019-12-20 [facility] 1.2.840.114 [id number] Univers 09:47:52 10:57:49 Visit Yadira Ann 350.1.13.10 ity of [place] [phone] [facility] 205 [facility] 2019-12-20 2019-12-20 Outpatient R [facility] [id number] Univers 10:15:00 10:15:00 YADIRA siu [facility] 2019-12-20 2019-12-20 Orders Doctor MCKENZIE 1.2.840.114 [id number] Univers 00:00:00 00:00:00 Only Unassigned, ALEXANDER 350.1.13.10 ity of [place] [facility] 4.2.7.2.686 Jay as [phone] [facility] [address] [place] 2019-12-11 2019-12-11 Telephone [facility] 1.2.840.114 [id number] Univers 00:00:00 00:00:00 [facility] 350.1.13.10 ity of [place] [facility] [phone] [facility] [address] [facility] 2019-12-08 2019-12-08 Transition Marquis Rincon 1.2.840.114 [id number] Univers 00:00:00 00:00:00 of Care Tatiana Samuel 350.1.13.10 ity [place] [phone] [facility] [address] [place] 2019-11-25 2019-12-07 Hospital Miky Fajardo 1.2.840. 114 [id number] Univers 20:29:00 20:07:00 Encounter Sai Lomas 350.1.1 3.10 ity of [facility] 4.2.7.2.686 [place] [phone] [facility] [address] [place] 2019-11-30 2019-11-30 Transition Marquis Rincon 1.2.840.114 [id number] Univers 00:00:00 00:00:00 of Care Tatiana Samuel 350.1.13.10 ity [place] [phone] [facility] [address] 2019-11-25 2019-11-25 Emergency X REPLACED BY [facility] ERT [id number] Univers 20:29:00 20:29:00 MIKY itkristian of [facility] 2019-11-25 2019-11-25 Orders Doctor MCKENZIE 1.2.840.114 [id number] Univers 00:00:00 00:00:00 Only Unassigned, ALEXANDER 350.1.13.10 ity of [place] [facility] 4.2.7.2.686 Jay as [phone] [address] 2018-12-03 2018-12-03 Patient Marquis Burroughs 1.2.840.114 [id number] Univers 00:00:00 00:00:00 Outreach Alexandra Mirtha Samuel 350.1.13.10 i ty [place] [phone] [place] [address] [address] 2018-12-03 2018-12-03 Patient Rboyn Canas 1.2.840.114 [id number] Univers 00:00:00 00:00:00 Outreach E Samuel 350.1.13.10 i ty [place] [phone] [address] Results Test Description Test Time Test Comments Results Result Comments Source POCT GLUCOSE (AUTOMATED) 2022-04-07 22:34:14 Test Item Value Reference Range Interpretation Comme nts POCT GLU (test code = 9759291588) 147 mg/dL 70-110 H Lab Interpretation (test code = 77774-8) Abnormal [facility] GLUCOSE (AUTOMATED)2022-04-07 17:33:17 Test Item Value Reference Range Interpretation Comments POCT GLU (test code = 9287408142) 167 mg/dL 70-110 H Lab Interpretation (test code = Abnormal 63769-3) [facility] GLUCOSE (AUTOMATED)2022-04-07 14:46:02 Test Item Value Reference Range Interpretation Comments POCT GLU (test code = 4905644747) 122 mg/dL 70-110 H Lab Interpretation (test code = Abnormal 92832-7) [facility] GLUCOSE (AUTOMATED)2022-04-07 03:45:01 Test Item Value Reference Range Interpretation Comments POCT GLU (test code = 9272966919) 154 mg/dL 70-110 H Lab Interpretation (test code = Abnormal 82123-5) [facility] IRON BINDING [id number] 02:29:29 Test Item Value Reference Range Interpretation Comments TIBC (test code = 6376953552) 229 ug/dL 250-410 L Lab Interpretation (test code = Abnormal 45655-4) [facility] GLUCOSE (AUTOMATED)2022-04-06 22:56:01 Test Item Value Reference Range Interpretation Comments POCT GLU (test code = 6673509791) 151 mg/dL 70-110 H Lab Interpretation (test code = Abnormal 65108-9) [facility] GLUCOSE (AUTOMATED)2022-04-06 18:47:15 Test Item Value Reference Range Interpretation Comments POCT GLU (test code = 0930257595) 143 mg/dL 70-110 H Lab Interpretation (test code = Abnormal 43061-3) [facility] GLUCOSE (AUTOMATED)2022-04-06 16:13:30 Test Item Value Reference Range Interpretation Comments POCT GLU (test code = 8600202492) 174 mg/dL 70-110 H Lab Interpretation (test code = Abnormal 02514-3) [facility] GLUCOSE (AUTOMATED)2022-04-06 04:48:48 Test Item Value Reference Range Interpretation Comments POCT GLU (test code = 3052414665) 125 mg/dL 70-110 H Lab Interpretation (test code = Abnormal 43061-6) [facility] GLUCOSE (AUTOMATED)2022-04-05 22:58:05 Test Item Value Reference Range Interpretation Comments POCT GLU (test code = 8679972689) 166 mg/dL 70-110 H Lab Interpretation (test code = Abnormal 70756-0) [facility] GLUCOSE (AUTOMATED)2022-04-05 19:24:46 Test Item Value Reference Range Interpretation Comments POCT GLU (test code = 9192382646) 187 mg/dL 70-110 H Lab Interpretation (test code = Abnormal 37283-2) [facility] GLUCOSE (AUTOMATED)2022-04-05 18:44:47 Test Item Value Reference Range Interpretation Comments POCT GLU (test code = 1947191469) 188 mg/dL 70-110 H Lab Interpretation (test code = Abnormal 10326-1) [facility] GLUCOSE (AUTOMATED)2022-04-05 15:44:16 Test Item Value Reference Range Interpretation Comments POCT GLU (test code = 9080758086) 137 mg/dL 70-110 H Lab Interpretation (test code = Abnormal 05534-2) [facility] GLUCOSE (AUTOMATED)2022-04-05 03:34:11 Test Item Value Reference Range Interpretation Comments POCT GLU (test code = 3027299531) 159 mg/dL 70-110 H Lab Interpretation (test code = Abnormal 64161-9) [facility] GLUCOSE (AUTOMATED)2022-04-04 22:20:10 Test Item Value Reference Range Interpretation Comments POCT GLU (test code = 7887682140) 192 mg/dL 70-110 H Lab Interpretation (test code = Abnormal 16733-7) [facility] GLUCOSE (AUTOMATED)2022-04-04 17:35:55 Test Item Value Reference Range Interpretation Comments POCT GLU (test code = 6622828587) 160 mg/dL 70-110 H Lab Interpretation (test code = Abnormal 07492-5) [facility] GLUCOSE (AUTOMATED)2022-04-04 14:50:34 Test Item Value Reference Range Interpretation Comments POCT GLU (test code = 2177755406) 164 mg/dL 70-110 H Lab Interpretation (test code = Abnormal 71330-8) [facility] GLUCOSE (AUTOMATED)2022-04-04 03:55:18 Test Item Value Reference Range Interpretation Comments POCT GLU (test code = 6533504180) 155 mg/dL 70-110 H Lab Interpretation (test code = Abnormal 55298-3) [facility] GLUCOSE (AUTOMATED)2022-04-03 23:12:46 Test Item Value Reference Range Interpretation Comments POCT GLU (test code = 4833733414) 157 mg/dL 70-110 H Lab Interpretation (test code = Abnormal 36684-1) [facility] GLUCOSE (AUTOMATED)2022-04-03 17:37:20 Test Item Value Reference Range Interpretation Comments POCT GLU (test code = 2914049704) 139 mg/dL 70-110 H Lab Interpretation (test code = Abnormal 83960-5) [facility] GLUCOSE (AUTOMATED)2022-04-03 17:37:20 Test Item Value Reference Range Interpretation Comments POCT GLU (test code = 8602875256) 139 mg/dL 70-110 H Lab Interpretation (test code = Abnormal 76424-4) [facility] GLUCOSE (AUTOMATED)2022-04-03 14:50:20 Test Item Value Reference Range Interpretation Comments POCT GLU (test code = 8875610959) 132 mg/dL 70-110 H Lab Interpretation (test code = Abnormal 77379-7) [facility] GLUCOSE (AUTOMATED)2022-04-03 14:50:20 Test Item Value Reference Range Interpretation Comments POCT GLU (test code = 8990203086) 132 mg/dL 70-110 H Lab Interpretation (test code = Abnormal 86686-3) [facility] GLUCOSE (AUTOMATED)2022-04-03 03:35:23 Test Item Value Reference Range Interpretation Comments POCT GLU (test code = 1594822770) 102 mg/dL 70-110 Lab Interpretation (test code = Normal 43240-8) [facility] GLUCOSE (AUTOMATED)2022-04-03 03:35:23 Test Item Value Reference Range Interpretation Comments POCT GLU (test code = 7777822983) 102 mg/dL 70-110 Lab Interpretation (test code = Normal 22749-7) [facility] GLUCOSE (AUTOMATED)2022-04-03 00:28:12 Test Item Value Reference Range Interpretation Comments POCT GLU (test code = 8849559651) 114 mg/dL 70-110 H Lab Interpretation (test code = Abnormal 95109-6) [facility] GLUCOSE (AUTOMATED)2022-04-03 00:28:12 Test Item Value Reference Range Interpretation Comments POCT GLU (test code = 7292681386) 114 mg/dL 70-110 H Lab Interpretation (test code = Abnormal 23717-0) [facility] GLUCOSE (AUTOMATED)2022-04-02 18:07:54 Test Item Value Reference Range Interpretation Comments POCT GLU (test code = 9057753738) 135 mg/dL 70-110 H Lab Interpretation (test code = Abnormal 47049-2) [facility] GLUCOSE (AUTOMATED)2022-04-02 18:07:54 Test Item Value Reference Range Interpretation Comments POCT GLU (test code = [id number]) 135 mg/dL 70-110 H Lab Interpretation (test code = Abnormal 24680-7) [facility] GLUCOSE (AUTOMATED)2022-04-02 14:57:12 Test Item Value Reference Range Interpretation Comments POCT GLU (test code = [id number]) 129 mg/dL 70-110 H Lab Interpretation (test code = Abnormal 97047-7) [facility] GLUCOSE (AUTOMATED)2022-04-02 14:57:12 Test Item Value Reference Range Interpretation Comments POCT GLU (test code = [id number]) 129 mg/dL 70-110 H Lab Interpretation (test code = Abnormal 72547-0) [facility] 02:44:11 Test Item Value Reference Range Interpretation Comments POCT GLU (test code = [id number]) 157 mg/dL 70-110 H Lab Interpretation (test code = Abnormal 21381-0) [facility]-02 02:44:11 Test Item Value Reference Range Interpretation Comments POCT GLU (test code = [id number]) 157 mg/dL 70-110 H Lab Interpretation (test code = Abnormal 98337-9) [facility] GLUCOSE (AUTOMATED)2022-04-01 22:56:32 Test Item Value Reference Range Interpretation Comments POCT GLU (test code = [id number]) 191 mg/dL 70-110 H Lab Interpretation (test code = Abnormal 25094-5) [facility] GLUCOSE (AUTOMATED)2022-04-01 22:56:32 Test Item Value Reference Range Interpretation Comments POCT GLU (test code = [id number]) 191 mg/dL 70-110 H Lab Interpretation (test code = Abnormal 34194-1) [facility] GLUCOSE (AUTOMATED)2022-04-01 17:40:17 Test Item Value Reference Range Interpretation Comments POCT GLU (test code = 9244944041) 179 mg/dL 70-110 H Lab Interpretation (test code = Abnormal 45476-1) [facility] GLUCOSE (AUTOMATED)2022-04-01 17:40:17 Test Item Value Reference Range Interpretation Comments POCT GLU (test code = 3519433994) 179 mg/dL 70-110 H Lab Interpretation (test code = Abnormal 55329-9) [facility] GLUCOSE (AUTOMATED)2022-04-01 14:04:00 Test Item Value Reference Range Interpretation Comments POCT GLU (test code = 5156694072) 175 mg/dL 70-110 H Lab Interpretation (test code = Abnormal 54967-7) [facility] 14:04:00 Test Item Value Reference Range Interpretation Comments POCT GLU (test code = 1216181369) 175 mg/dL 70-110 H Lab Interpretation (test code = Abnormal 83583-5) [facility] GLUCOSE (AUTOMATED)2022-04-01 04:09:44 Test Item Value Reference Range Interpretation Comments POCT GLU (test code = 5306179485) 168 mg/dL 70-110 H Lab Interpretation (test code = Abnormal 68244-3) [facility] GLUCOSE (AUTOMATED)2022-04-01 04:09:44 Test Item Value Reference Range Interpretation Comments POCT GLU (test code = 3685507621) 168 mg/dL 70-110 H Lab Interpretation (test code = Abnormal 30606-3) [facility] GLUCOSE (AUTOMATED)2022-04-01 00:27:42 Test Item Value Reference Range Interpretation Comments POCT GLU (test code = 8658832245) 190 mg/dL 70-110 H Lab Interpretation (test code = Abnormal 97009-6) [facility] GLUCOSE (AUTOMATED)2022-04-01 00:27:42 Test Item Value Reference Range Interpretation Comments POCT GLU (test code = 3689421423) 190 mg/dL 70-110 H Lab Interpretation (test code = Abnormal 84672-9) [facility] GLUCOSE (AUTOMATED)2022-03-31 19:28:43 Test Item Value Reference Range Interpretation Comments POCT GLU (test code = 7037138617) 153 mg/dL 70-110 H Lab Interpretation (test code = Abnormal 73732-7) [facility] GLUCOSE (AUTOMATED)2022-03-31 19:28:43 Test Item Value Reference Range Interpretation Comments POCT GLU (test code = 5497922723) 153 mg/dL 70-110 H Lab Interpretation (test code = Abnormal 52847-1) [facility] GLUCOSE (AUTOMATED)2022-03-31 19:28:43 Test Item Value Reference Range Interpretation Comments POCT GLU (test code = 0676917691) 153 mg/dL 70-110 H Lab Interpretation (test code = Abnormal 28728-9) [facility] GLUCOSE (AUTOMATED)2022-03-31 15:16:11 Test Item Value Reference Range Interpretation Comments POCT GLU (test code = 9546482871) 116 mg/dL 70-110 H Lab Interpretation (test code = Abnormal 52849-5) [facility] GLUCOSE (AUTOMATED)2022-03-31 15:16:11 Test Item Value Reference Range Interpretation Comments POCT GLU (test code = 9822588253) 116 mg/dL 70-110 H Lab Interpretation (test code = Abnormal 16628-5) [facility] GLUCOSE (AUTOMATED)2022-03-31 15:16:11 Test Item Value Reference Range Interpretation Comments POCT GLU (test code = 3192917275) 116 mg/dL 70-110 H Lab Interpretation (test code = Abnormal 17605-8) [facility] GLUCOSE (AUTOMATED)2022-03-31 02:33:02 Test Item Value Reference Range Interpretation Comments POCT GLU (test code = 2198879733) 131 mg/dL 70-110 H Lab Interpretation (test code = Abnormal 44166-6) [facility] GLUCOSE (AUTOMATED)2022-03-31 02:33:02 Test Item Value Reference Range Interpretation Comments POCT GLU (test code = 3744119388) 131 mg/dL 70-110 H Lab Interpretation (test code = Abnormal 63615-4) [facility] GLUCOSE (AUTOMATED)2022-03-31 02:33:02 Test Item Value Reference Range Interpretation Comments POCT GLU (test code = 9216265706) 131 mg/dL 70-110 H Lab Interpretation (test code = Abnormal 14922-6) [facility] GLUCOSE (AUTOMATED)2022-03-31 00:00:13 Test Item Value Reference Range Interpretation Comments POCT GLU (test code = 6855421452) 137 mg/dL 70-110 H Lab Interpretation (test code = Abnormal 62021-6) [facility] GLUCOSE (AUTOMATED)2022-03-31 00:00:13 Test Item Value Reference Range Interpretation Comments POCT GLU (test code = 5603244676) 137 mg/dL 70-110 H Lab Interpretation (test code = Abnormal 17070-4) [facility] GLUCOSE (AUTOMATED)2022-03-31 00:00:13 Test Item Value Reference Range Interpretation Comments POCT GLU (test code = 1137577210) 137 mg/dL 70-110 H Lab Interpretation (test code = Abnormal 60627-0) [facility] GLUCOSE (AUTOMATED)2022-03-30 18:32:07 Test Item Value Reference Range Interpretation Comments POCT GLU (test code = 2755181068) 178 mg/dL 70-110 H Lab Interpretation (test code = Abnormal 45272-2) [facility]2022-03-30 18:32:07 Test Item Value Reference Range Interpretation Comments POCT GLU (test code = 1153879539) 178 mg/dL 70-110 H Lab Interpretation (test code = Abnormal 58316-6) [facility] GLUCOSE (AUTOMATED)2022-03-30 18:32:07 Test Item Value Reference Range Interpretation Comments POCT GLU (test code = 2986004276) 178 mg/dL 70-110 H Lab Interpretation (test code = Abnormal 00386-5) [facility] GLUCOSE (AUTOMATED)2022-03-30 14:53:39 Test Item Value Reference Range Interpretation Comments POCT GLU (test code = 3686189055) 158 mg/dL 70-110 H Lab Interpretation (test code = Abnormal 38019-5) [facility] GLUCOSE (AUTOMATED)2022-03-30 14:53:39 Test Item Value Reference Range Interpretation Comments POCT GLU (test code = 1500571103) 158 mg/dL 70-110 H Lab Interpretation (test code = Abnormal 53609-8) [facility] GLUCOSE (AUTOMATED)2022-03-30 14:53:39 Test Item Value Reference Range Interpretation Comments POCT GLU (test code = 7922035306) 158 mg/dL 70-110 H Lab Interpretation (test code = Abnormal 54108-4) [facility] GLUCOSE (AUTOMATED)2022-03-30 03:15:36 Test Item Value Reference Range Interpretation Comments POCT GLU (test code = 0017602505) 149 mg/dL 70-110 H Lab Interpretation (test code = Abnormal 38817-6) [facility] GLUCOSE (AUTOMATED)2022-03-30 03:15:36 Test Item Value Reference Range Interpretation Comments POCT GLU (test code = 9376183716) 149 mg/dL 70-110 H Lab Interpretation (test code = Abnormal 77510-0) [facility] GLUCOSE (AUTOMATED)2022-03-30 03:15:36 Test Item Value Reference Range Interpretation Comments POCT GLU (test code = 2054031200) 149 mg/dL 70-110 H Lab Interpretation (test code = Abnormal 85031-9) [facility] GLUCOSE (AUTOMATED)2022-03-29 23:13:05 Test Item Value Reference Range Interpretation Comments POCT GLU (test code = 1336156085) 144 mg/dL 70-110 H Lab Interpretation (test code = Abnormal 27964-1) [facility]2022-[facility]-29 23:13:05 Test Item Value Reference Range Interpretation Comments POCT GLU (test code = 7711553827) 144 mg/dL 70-110 H Lab Interpretation (test code = Abnormal 42332-1) [facility]22-[facility]-29 23:13:05 Test Item Value Reference Range Interpretation Comments POCT GLU (test code = 3867556440) 144 mg/dL 70-110 H Lab Interpretation (test code = Abnormal 10094-0) [facility] GLUCOSE (AUTOMATED)2022-03-29 18:49:40 Test Item Value Reference Range Interpretation Comments POCT GLU (test code = 9307794441) 137 mg/dL 70-110 H Lab Interpretation (test code = Abnormal 05675-1[facility] 18:49:40 Test Item Value Reference Range Interpretation Comments POCT GLU (test code = 5131521611) 137 mg/dL 70-110 H Lab Interpretation (test code = Abnormal 10086-2) [facility] GLUCOSE (AUTOMATED)2022-03-29 18:49:40 Test Item Value Reference Range Interpretation Comments POCT GLU (test code = 5343096331) 137 mg/dL 70-110 H Lab Interpretation (test code = Abnormal 48953-0) [facility] 15:21:35 Test Item Value Reference Range Interpretation Comments POCT GLU (test code = 8813552572) 106 mg/dL 70-110 Lab Interpretation (test code = Normal 34137-5) [facility] 15:21:35 Test Item Value Reference Range Interpretation Comments POCT GLU (test code = 5981392892) 106 mg/dL 70-110 Lab Interpretation (test code = Normal 30449-3) [facility] GLUCOSE (AUTOMATED)2022-03-29 15:21:35 Test Item Value Reference Range Interpretation Comments POCT GLU (test code = 0028334504) 106 mg/dL 70-110 Lab Interpretation (test code = Normal 85971-1) [facility] METABOLIC PANEL (NA, K, CL, CO2, GLUCOSE, BUN, CREATININE, CA)2022-03-29 12:37:53 Test Item Value Reference Range Interpretation Comments NA (test code = 139 mmol/L 135-145 3310159416) K (test code = 3.7 mmol/L 3.5-5.0 Slight 0078273528) hemolysis CL (test code = 108 mmol/L 98-108 6350490999) CO2 TOTAL (test code 23 mmol/L 23-31 = 8526724258) AGAP (test code = 2-16 9186119444) BUN (test code = 15 mg/dL 7-23 Slight 1488975396) hemolysis GLUCOSE (test code = 108 mg/dL 70-110 6952429748) CREATININE (test code 0.76 mg/dL 0.60-1.25 = 7247280559) CALCIUM (test code = 7.6 mg/dL 8.6-10.6 L 9819822213) eGFR (test code = mL/min/1.73m2 0048298717) LUIS (test code = LUIS) Association of Glomerular Filtration Rate (GFR) and Staging of Kidney Disease* + -----+ --------+ +| GFR (mL/min/1.73 m2) ?| With Kidney Damage ?| ?Without Kidney Damage+ +------- +---- --+| ?>90 ?| ?Stage one ?| ? Normal ?+ ------+ ---------+--------- +| ?60-89 ?| ?Stage two ?| ? Decreased GFR ? + -----+ --------+ +| ?30-59 ?| ?Stage three ?| ? Stage three ? + -----+ --------+ +| ?15-29 ?| ?Stage four ? | ? Stage four ?+ ------+ ---------+--------- +| ?<15 (or dialysis) ? ?| ?Stage five ? | ? Stage five ?+ ------+ ---------+--------- + *Each stage assumes the associated GFR level [...] tests). Lab Interpretation Abnormal (test code = 91198-6) [facility] 12:37:53 Test Item Value Reference Range Interpretation Comments MAGNESIUM (test code = 7659855334) 1.8 mg/dL 1.7-2.4 Lab Interpretation (test code = Normal 95565-4) [facility] (NA, K, CL, CO2, GLUCOSE, BUN, CREATININE, CA)2022-03-29 12:37:53 Test Item Value Reference Range Interpretation Comments NA (test code = 139 mmol/L 135-145 2723225827) K (test code = 3.7 mmol/L 3.5-5.0 Slight 8944961565) hemolysis CL (test code = 108 mmol/L 98-108 0277308238) CO2 TOTAL (test code 23 mmol/L 23-31 = 7974701772) AGAP (test code = 2-16 9698195549) BUN (test code = 15 mg/dL 7-23 Slight 5170930796) hemolysis GLUCOSE (test code = 108 mg/dL 70-110 9775834705) CREATININE (test code 0.76 mg/dL 0.60-1.25 = 3280174876) CALCIUM (test code = 7.6 mg/dL 8.6-10.6 L 7898597945) eGFR (test code = mL/min/1.73m2 9651300207) LUIS (test code = LUIS) Association of Glomerular Filtration Rate (GFR) and Staging of Kidney Disease* + -----+ --------+ +| GFR (mL/min/1.73 m2) ?| With Kidney Damage ?| ?Without Kidney Damage+ +------- +---- --+| ?>90 ?| ?Stage one ?| ? Normal ?+ ------+ ---------+--------- +| ?60-89 ?| ?Stage two ?| ? Decreased GFR ? + -----+ --------+ +| ?30-59 ?| ?Stage three ?| ? Stage three ? + -----+ --------+ +| ?15-29 ?| ?Stage four ? | ? Stage four ?+ ------+ ---------+--------- +| ?<15 (or dialysis) ? ?| ?Stage five ? | ? Stage five ?+ ------+ ---------+--------- + *Each stage assumes the associated GFR level [...] tests). Lab Interpretation Abnormal (test code = 82548-0) [facility] 12:37:53 Test Item Value Reference Range Interpretation Comments MAGNESIUM (test code = 5938413055) 1.8 mg/dL 1.7-2.4 Lab Interpretation (test code = Normal 16022-6) [facility] (NA, K, CL, CO2, GLUCOSE, BUN, CREATININE, CA)2022-03-29 12:37:53 Test Item Value Reference Range Interpretation Comments NA (test code = 139 mmol/L 135-145 4339865959) K (test code = 3.7 mmol/L 3.5-5.0 Slight 8172971984) hemolysis CL (test code = 108 mmol/L 98-108 5727566322) CO2 TOTAL (test code 23 mmol/L 23-31 = 2822426785) AGAP (test code = 2-16 4479638181) BUN (test code = 15 mg/dL 7-23 Slight 9268103119) hemolysis GLUCOSE (test code = 108 mg/dL 70-110 7832604294) CREATININE (test code 0.76 mg/dL 0.60-1.25 = 0816527347) CALCIUM (test code = 7.6 mg/dL 8.6-10.6 L 5511262777) eGFR (test code = mL/min/1.73m2 9139767178) LUIS (test code = LUIS) Association of Glomerular Filtration Rate (GFR) and Staging of Kidney Disease* + -----+ --------+ +| GFR (mL/min/1.73 m2) ?| With Kidney Damage ?| ?Without Kidney Damage+ +------- +---- --+| ?>90 ?| ?Stage one ?| ? Normal ?+ ------+ ---------+--------- +| ?60-89 ?| ?Stage two ?| ? Decreased GFR ? + -----+ --------+ +| ?30-59 ?| ?Stage three ?| ? Stage three ? + -----+ --------+ +| ?15-29 ?| ?Stage four ? | ? Stage four ?+ ------+ ---------+--------- +| ?<15 (or dialysis) ? ?| ?Stage five ? | ? Stage five ?+ ------+ ---------+--------- + *Each stage assumes the associated GFR level [...] tests). Lab Interpretation Abnormal (test code = 92699-3) [facility] 12:37:53 Test Item Value Reference Range Interpretation Comments MAGNESIUM (test code = 1174343227) 1.8 mg/dL 1.7-2.4 Lab Interpretation (test code = Normal 74998-0) [facility] WITH [id number] 11:59:47 Test Item Value Reference Range Interpretation Comments WBC (test code = See_Comment [Automated 1190-2) message] The sy stem which generated this result transmitted reference range : 4.20 - 10.70 10*3/?L. The reference range was not used to interpret this result as normal/abnormal . RBC (test code = See_Comment L [Automated 629-8) message] The sy stem which generated this result transmitted reference range : 4.26 - 5.52 10*6/?L. The reference range was not used to interpret this result as normal/abnormal . HGB (test code = 7.8 g/dL 12.2-16.4 L 718-7) HCT (test code = 22.4 % 38.4-49.3 L 4544-3) MCV (test code = 82.7 fL 81.7-95.6 787-2) MCH (test code = 28.8 pg 26.1-32.7 785-6) MCHC (test code = 34.8 g/dL 31.2-35.0 786-4) RDW-SD (test code = 38.8 fL 38.5-51.6 85858-2) RDW-CV (test code = 12.9 % 12.1-15.4 788-0) PLT (test code = See_Comment [Automated 777-3) message] The sy stem which generated this result transmitted reference range : 150 - 328 10*3/ ?L. The reference r neno was not used to interpret this result as normal/abnormal . MPV (test code = 9.0 fL 9.8-13.0 L 60231-9) NRBC/100 WBC (test See_Comment [Automat ed code = 4791353969) message] The system which generated this result transmitted reference range : 0.0 - 10.0 /100 WBCs. The refer ence range was not u sed to interpret th is result as normal/abnormal . NRBC x10^3 (test code See_Comment [Auto mated = 3927729842) message] The s ystem which generated this result transmitted reference range : 10*3/?L. The reference range was not used to interpret this result as normal/abnormal . GRAN MAT (NEUT) % 73.5 % (test code = 770-8) IMM GRAN % (test code 0.30 % = 2808780877) LYMPH % (test code = 12.0 % 736-9) MONO % (test code = 9.4 % 5905-5) EOS % (test code = 4.4 % 713-8) BASO % (test code = 0.4 % 706-2) GRAN MAT x10^3(ANC) 5.62 10*3/uL 1.99-6.95 (test code = 7226955155) IMM GRAN x10^3 (test 0.00-0.06 code = 4260953702) LYMPH x10^3 (test code 0.92 10*3/uL 1.09-3.23 L = 731-0) MONO x10^3 (test code 0.72 10*3/uL 0.36-1.02 = 742-7) EOS x10^3 (test code = 0.34 10*3/uL 0.06-0.53 711-2) BASO x10^3 (test code 0.03 10*3/uL 0.01-0.09 = 704-7) Lab Interpretation Abnormal (test code = 15013-3) [facility] WITH [id number] 11:59:47 Test Item Value Reference Range Interpretation Comments WBC (test code = See_Comment [Automated 2090-2) message] The sy stem which generated this result transmitted reference range : 4.20 - 10.70 10*3/?L. The reference range was not used to interpret this result as normal/abnormal . RBC (test code = See_Comment L [Automated 089-8) message] The sy stem which generated this result transmitted reference range : 4.26 - 5.52 10*6/?L. The reference range was not used to interpret this result as normal/abnormal . HGB (test code = 7.8 g/dL 12.2-16.4 L 718-7) HCT (test code = 22.4 % 38.4-49.3 L 4544-3) MCV (test code = 82.7 fL 81.7-95.6 787-2) MCH (test code = 28.8 pg 26.1-32.7 785-6) MCHC (test code = 34.8 g/dL 31.2-35.0 786-4) RDW-SD (test code = 38.8 fL 38.5-51.6 39603-9) RDW-CV (test code = 12.9 % 12.1-15.4 788-0) PLT (test code = See_Comment [Automated 777-3) message] The sy stem which generated this result transmitted reference range : 150 - 328 10*3/ ?L. The reference r neno was not used to interpret this result as normal/abnormal . MPV (test code = 9.0 fL 9.8-13.0 L 11083-7) NRBC/100 WBC (test See_Comment [Automat ed code = 5357332925) message] The system which generated this result transmitted reference range : 0.0 - 10.0 /100 WBCs. The refer ence range was not u sed to interpret th is result as normal/abnormal . NRBC x10^3 (test code See_Comment [Auto mated = 2514452740) message] The s ystem which generated this result transmitted reference range : 10*3/?L. The reference range was not used to interpret this result as normal/abnormal . GRAN MAT (NEUT) % 73.5 % (test code = 770-8) IMM GRAN % (test code 0.30 % = 5772947691) LYMPH % (test code = 12.0 % 736-9) MONO % (test code = 9.4 % 5905-5) EOS % (test code = 4.4 % 713-8) BASO % (test code = 0.4 % 706-2) GRAN MAT x10^3(ANC) 5.62 10*3/uL 1.99-6.95 (test code = 7364322352) IMM GRAN x10^3 (test 0.00-0.06 code = 9853588527) LYMPH x10^3 (test code 0.92 10*3/uL 1.09-3.23 L = 731-0) MONO x10^3 (test code 0.72 10*3/uL 0.36-1.02 = 742-7) EOS x10^3 (test code = 0.34 10*3/uL 0.06-0.53 711-2) BASO x10^3 (test code 0.03 10*3/uL 0.01-0.09 = 704-7) Lab Interpretation Abnormal (test code = 90166-8) [facility] WITH [id number] 11:59:47 Test Item Value Reference Range Interpretation Comments [...] as normal/abnormal . HGB (test code = 7.8 g/dL 12.2-16.4 L 718-7) HCT (test code = 22.4 % 38.4-49.3 L 4544-3) MCV (test code = 82.7 fL 81.7-95.6 787-2) MCH (test code = 28.8 pg 26.1-32.7 785-6) MCHC (test code = 34.8 g/dL 31.2-35.0 786-4) RDW-SD (test code = 38.8 fL 38.5-51.6 64060-8) RDW-CV (test code = 12.9 % 12.1-15.4 788-0) PLT (test code = See_Comment [Automated 777-3) message] The sy stem which generated this result transmitted reference range : 150 - 328 10*3/ ?L. The reference r neno was not used to interpret this result as normal/abnormal . MPV (test code = 9.0 fL 9.8-13.0 L 20014-5) NRBC/100 WBC (test See_Comment [Automat ed code = 8533608170) message] The system which generated this result transmitted reference range : 0.0 - 10.0 /100 WBCs. The refer ence range was not u sed to interpret th is result as normal/abnormal . NRBC x10^3 (test code See_Comment [Auto mated = 8990503695) message] The s ystem which generated this result transmitted reference range : 10*3/?L. The reference range was not used to interpret this result as normal/abnormal . GRAN MAT (NEUT) % 73.5 % (test code = 770-8) IMM GRAN % (test code 0.30 % = 8700918760) LYMPH % (test code = 12.0 % 736-9) MONO % (test code = 9.4 % 5905-5) EOS % (test code = 4.4 % 713-8) BASO % (test code = 0.4 % 706-2) GRAN MAT x10^3(ANC) 5.62 10*3/uL 1.99-6.95 (test code = 7541927553) IMM GRAN x10^3 (test 0.00-0.06 code = 8896699317) LYMPH x10^3 (test code 0.92 10*3/uL 1.09-3.23 L = 731-0) MONO x10^3 (test code 0.72 10*3/uL 0.36-1.02 = 742-7) EOS x10^3 (test code = 0.34 10*3/uL 0.06-0.53 711-2) BASO x10^3 (test code 0.03 10*3/uL 0.01-0.09 = 704-7) Lab Interpretation Abnormal (test code = 28686-0) [facility] GLUCOSE (AUTOMATED)2022-03-29 02:10:36 Test Item Value Reference Range Interpretation Comments POCT GLU (test code = 4187614710) 113 mg/dL 70-110 H Lab Interpretation (test code = Abnormal 58827-5) [facility] GLUCOSE (AUTOMATED)2022-03-29 02:10:36 Test Item Value Reference Range Interpretation Comments POCT GLU (test code = 8249013755) 113 mg/dL 70-110 H Lab Interpretation (test code = Abnormal 75059-6) [facility] GLUCOSE (AUTOMATED)2022-03-29 02:10:36 Test Item Value Reference Range Interpretation Comments POCT GLU (test code = 9498950666) 113 mg/dL 70-110 H Lab Interpretation (test code = Abnormal 15982-9) [facility] GLUCOSE (AUTOMATED)2022-03-28 18:12:11 Test Item Value Reference Range Interpretation Comments POCT GLU (test code = 6473617750) 134 mg/dL 70-110 H Lab Interpretation (test code = Abnormal 51666-7) [facility] GLUCOSE (AUTOMATED)2022-03-28 18:12:11 Test Item Value Reference Range Interpretation Comments POCT GLU (test code = 0756509156) 134 mg/dL 70-110 H Lab Interpretation (test code = Abnormal 05637-4) [facility] GLUCOSE (AUTOMATED)2022-03-28 18:12:11 Test Item Value Reference Range Interpretation Comments POCT GLU (test code = 6187422212) 134 mg/dL 70-110 H Lab Interpretation (test code = Abnormal 28735-5) [facility] GLUCOSE (AUTOMATED)2022-03-28 15:47:56 Test Item Value Reference Range Interpretation Comments POCT GLU (test code = 6995889150) 120 mg/dL 70-110 H Lab Interpretation (test code = Abnormal 30083-9) [facility] GLUCOSE (AUTOMATED)2022-03-28 15:47:56 Test Item Value Reference Range Interpretation Comments POCT GLU (test code = 3881770621) 120 mg/dL 70-110 H Lab Interpretation (test code = Abnormal 63620-7) [facility] GLUCOSE (AUTOMATED)2022-03-28 15:47:56 Test Item Value Reference Range Interpretation Comments POCT GLU (test code = 9648509154) 120 mg/dL 70-110 H Lab Interpretation (test code = Abnormal 47152-9) [facility] - ONCE [id number] 13:21:37 Test Item Value Reference Range Interpretation Comments ABO & RH (test code O POSITIVE Performe d at [facility] = 20) Laboratory Serv [facility] [employer] [facility] [address] [facility] s [address]Waqh Free: [phone] A No. [id number] IAT (test code = Negative Performed a t [facility] 1185) Laboratory Serv [facility] [employer] [facility] [address] [facility] s [address]Gdqt Free: [phone] A No. [id number] [facility] - ONCE [id number] 13:21:37 Test Item Value Reference Range Interpretation Comments ABO & RH (test code O POSITIVE Performe d at [facility] = 20) Laboratory Serv [facility] [employer] [facility] [address] [facility] s [address]Rrdn Free: [phone] A No. [id number] IAT (test code = Negative Performed a t [facility] 1185) Laboratory Serv [facility] [employer] [facility] [address] [facility] s [address]Enmd Free: [phone] A No. [id number] [facility] - ONCE [id number] 13:21:37 Test Item Value Reference Range Interpretation Comments ABO & RH (test code O POSITIVE Performe d at [facility] = 20) Laboratory Serv [facility] [employer] [facility] [address] [facility] s [address]Ckml Free: [phone] A No. [id number] IAT (test code = Negative Performed a t [facility] 1185) Laboratory Serv [employer] Blood [facility] [address] [place] [address] s [address]Gqkd Free: [phone] A No. [id number] [facility] GLUCOSE (AUTOMATED)2022-03-28 05:50:05 Test Item Value Reference Range Interpretation Comments POCT GLU (test code = [id number]) 116 mg/dL 70-110 H Lab Interpretation (test code = Abnormal 06984-9) [facility] GLUCOSE (AUTOMATED)2022-03-28 05:50:05 Test Item Value Reference Range Interpretation Comments POCT GLU (test code = [id number]) 116 mg/dL 70-110 H Lab Interpretation (test code = Abnormal 26803-8) [facility] GLUCOSE (AUTOMATED)2022-03-28 05:50:05 Test Item Value Reference Range Interpretation Comments POCT GLU (test code = 8085534628) 116 mg/dL 70-110 H Lab Interpretation (test code = Abnormal 06499-8) [facility] [id number] 23:52:13 Test Item Value Reference Range Interpretation Comments LACTIC ACID (test code = 1.55 mmol/L 0.50-2.20 QUE S [id number]) Lab Interpretation (test code = Normal 71017-0) [facility] [id number] 23:52:13 Test Item Value Reference Range Interpretation Comments LACTIC ACID (test code = 1.55 mmol/L 0.50-2.20 QUE S [id number]) Lab Interpretation (test code = Normal 97871-5) [facility] [id number] 23:52:13 Test Item Value Reference Range Interpretation Comments LACTIC ACID (test code = 1.55 mmol/L 0.50-2.20 QUE S [id number]) Lab Interpretation (test code = Normal 09425-4) [facility] GLUCOSE (AUTOMATED)2022-03-27 23:43:02 Test Item Value Reference Range Interpretation Comments POCT GLU (test code = [id number]) 143 mg/dL 70-110 H Lab Interpretation (test code = Abnormal 20763-1) [facility] GLUCOSE (AUTOMATED)2022-03-27 23:43:02 Test Item Value Reference Range Interpretation Comments POCT GLU (test code = 7320178112) 143 mg/dL 70-110 H Lab Interpretation (test code = Abnormal 96875-4) [facility] GLUCOSE (AUTOMATED)2022-03-27 23:43:02 Test Item Value Reference Range Interpretation Comments POCT GLU (test code = 7487171536) 143 mg/dL 70-110 H Lab Interpretation (test code = Abnormal 73756-0) [facility] [id number] 20:23:06 Test Item Value Reference Range Interpretation Comments LACTIC ACID (test code = 2.50 mmol/L 0.50-2.20 H [id number]) Lab Interpretation (test code = Abnormal 75286-6) [facility] Gjhcq1534-61-95 20:23:06 Test Item Value Reference Range Interpretation Comments LACTIC ACID (test code = 2.50 mmol/L 0.50-2.20 H [id number]) Lab Interpretation (test code = Abnormal 72113-8) [facility] [id number] 20:23:06 Test Item Value Reference Range Interpretation Comments LACTIC ACID (test code = 2.50 mmol/L 0.50-2.20 H [id number]) Lab Interpretation (test code = Abnormal 18427-2) [facility] GLUCOSE (AUTOMATED)2022-03-13 22:22:39 Test Item Value Reference Range Interpretation Comments POCT GLU (test code = 7928064906) 177 mg/dL 70-110 H Lab Interpretation (test code = Abnormal 45721-0) [facility] GLUCOSE (AUTOMATED)2022-03-13 22:22:39 Test Item Value Reference Range Interpretation Comments POCT GLU (test code = 4128381464) 177 mg/dL 70-110 H Lab Interpretation (test code = Abnormal 75256-7) [facility] GLUCOSE (AUTOMATED)2022-03-13 21:22:19 Test Item Value Reference Range Interpretation Comments POCT GLU (test code = 5537759758) 169 mg/dL 70-110 H Lab Interpretation (test code = Abnormal 82964-5) [facility] GLUCOSE (AUTOMATED)2022-03-13 21:22:19 Test Item Value Reference Range Interpretation Comments POCT GLU (test code = 5978450925) 169 mg/dL 70-110 H Lab Interpretation (test code = Abnormal 97253-9) [facility] GLUCOSE (AUTOMATED)2022-03-13 15:15:57 Test Item Value Reference Range Interpretation Comments POCT GLU (test code = 7441903124) 114 mg/dL 70-110 H Lab Interpretation (test code = Abnormal 21248-7) [facility] GLUCOSE (AUTOMATED)2022-03-13 15:15:57 Test Item Value Reference Range Interpretation Comments POCT GLU (test code = 8530353850) 114 mg/dL 70-110 H Lab Interpretation (test code = Abnormal 49446-8) [facility] GLUCOSE (AUTOMATED)2022-03-13 15:07:00 Test Item Value Reference Range Interpretation Comments POCT GLU (test code = 7678727654) 111 mg/dL 70-110 H Lab Interpretation (test code = Abnormal 20656-7) [facility] GLUCOSE (AUTOMATED)2022-03-13 15:07:00 Test Item Value Reference Range Interpretation Comments POCT GLU (test code = 4007474173) 111 mg/dL 70-110 H Lab Interpretation (test code = Abnormal 48943-4) [facility] GLUCOSE (AUTOMATED)2022-03-13 03:45:35 Test Item Value Reference Range Interpretation Comments POCT GLU (test code = 7765820823) 158 mg/dL 70-110 H Lab Interpretation (test code = Abnormal 09832-5) [facility] GLUCOSE (AUTOMATED)2022-03-13 03:45:35 Test Item Value Reference Range Interpretation Comments POCT GLU (test code = 3251420550) 158 mg/dL 70-110 H Lab Interpretation (test code = Abnormal 50193-8) [facility] GLUCOSE (AUTOMATED)2022-03-12 22:26:10 Test Item Value Reference Range Interpretation Comments POCT GLU (test code = 6901774305) 233 mg/dL 70-110 H Lab Interpretation (test code = Abnormal 49239-2) [facility] GLUCOSE (AUTOMATED)2022-03-12 22:26:10 Test Item Value Reference Range Interpretation Comments POCT GLU (test code = 8684386887) 233 mg/dL 70-110 H Lab Interpretation (test code = Abnormal 27461-9) [facility] GLUCOSE (AUTOMATED)2022-03-12 17:45:11 Test Item Value Reference Range Interpretation Comments POCT GLU (test code = 3762972465) 163 mg/dL 70-110 H Lab Interpretation (test code = Abnormal 26230-1) [facility] GLUCOSE (AUTOMATED)2022-03-12 17:45:11 Test Item Value Reference Range Interpretation Comments POCT GLU (test code = 7275467913) 163 mg/dL 70-110 H Lab Interpretation (test code = Abnormal 31896-6) [facility] GLUCOSE (AUTOMATED)2022-03-12 13:37:28 Test Item Value Reference Range Interpretation Comments POCT GLU (test code = 9835883571) 120 mg/dL 70-110 H Lab Interpretation (test code = Abnormal 14336-5) [facility] GLUCOSE (AUTOMATED)2022-03-12 13:37:28 Test Item Value Reference Range Interpretation Comments POCT GLU (test code = 4449436193) 120 mg/dL 70-110 H Lab Interpretation (test code = Abnormal 89428-0) [facility] GLUCOSE (AUTOMATED)2022-03-12 02:58:45 Test Item Value Reference Range Interpretation Comments POCT GLU (test code = 5582867312) 208 mg/dL 70-110 H Lab Interpretation (test code = Abnormal 18624-8) [facility] GLUCOSE (AUTOMATED)2022-03-12 02:58:45 Test Item Value Reference Range Interpretation Comments POCT GLU (test code = 4771018038) 208 mg/dL 70-110 H Lab Interpretation (test code = Abnormal 08441-4) [facility] GLUCOSE (AUTOMATED)2022-03-11 22:10:24 Test Item Value Reference Range Interpretation Comments POCT GLU (test code = 8046249544) 155 mg/dL 70-110 H Lab Interpretation (test code = Abnormal 77625-4) [facility] GLUCOSE (AUTOMATED)2022-03-11 22:10:24 Test Item Value Reference Range Interpretation Comments POCT GLU (test code = 7115803686) 155 mg/dL 70-110 H Lab Interpretation (test code = Abnormal 91693-8) [facility] GLUCOSE (AUTOMATED)2022-03-11 19:03:28 Test Item Value Reference Range Interpretation Comments POCT GLU (test code = 4934616527) 208 mg/dL 70-110 H Lab Interpretation (test code = Abnormal 35750-5) [facility] GLUCOSE (AUTOMATED)2022-03-11 19:03:28 Test Item Value Reference Range Interpretation Comments POCT GLU (test code = 9703772973) 208 mg/dL 70-110 H Lab Interpretation (test code = Abnormal 40056-3) [facility] GLUCOSE (AUTOMATED)2022-03-11 19:03:28 Test Item Value Reference Range Interpretation Comments POCT GLU (test code = 4278211861) 208 mg/dL 70-110 H Lab Interpretation (test code = Abnormal 63224-9) [facility] GLUCOSE (AUTOMATED)2022-03-11 13:26:22 Test Item Value Reference Range Interpretation Comments POCT GLU (test code = 7322732870) 98 mg/dL 70-110 Lab Interpretation (test code = Normal 25695-4) [facility] GLUCOSE (AUTOMATED)2022-03-11 13:26:22 Test Item Value Reference Range Interpretation Comments POCT GLU (test code = 6258044405) 98 mg/dL 70-110 Lab Interpretation (test code = Normal 28835-7) [facility] GLUCOSE (AUTOMATED)2022-03-11 02:41:20 Test Item Value Reference Range Interpretation Comments POCT GLU (test code = 3662499028) 169 mg/dL 70-110 H Lab Interpretation (test code = Abnormal 06041-4) [facility] GLUCOSE (AUTOMATED)2022-03-11 02:41:20 Test Item Value Reference Range Interpretation Comments POCT GLU (test code = 1453084301) 169 mg/dL 70-110 H Lab Interpretation (test code = Abnormal 00311-7) [facility]2022-03-10 23:20:44 Test Item Value Reference Range Interpretation Comments POCT GLU (test code = 2424692385) 103 mg/dL 70-110 Lab Interpretation (test code = Normal 65517-1) [facility] GLUCOSE (AUTOMATED)2022-03-10 23:20:44 Test Item Value Reference Range Interpretation Comments POCT GLU (test code = 9782327908) 103 mg/dL 70-110 Lab Interpretation (test code = Normal 87838-0) [facility] GLUCOSE (AUTOMATED)2022-03-10 18:33:58 Test Item Value Reference Range Interpretation Comments POCT GLU (test code = 4068373979) 114 mg/dL 70-110 H Lab Interpretation (test code = Abnormal 17034-7) [facility] GLUCOSE (AUTOMATED)2022-03-10 18:33:58 Test Item Value Reference Range Interpretation Comments POCT GLU (test code = 5154947864) 114 mg/dL 70-110 H Lab Interpretation (test code = Abnormal 01006-0) [facility] GLUCOSE (AUTOMATED)2022-03-10 18:33:58 Test Item Value Reference Range Interpretation Comments POCT GLU (test code = 8846603693) 114 mg/dL 70-110 H Lab Interpretation (test code = Abnormal 50852-0) [facility]2022-03-10 18:33:58 Test Item Value Reference Range Interpretation Comments POCT GLU (test code = 9607926949) 114 mg/dL 70-110 H Lab Interpretation (test code = Abnormal 03017-8) [facility] GLUCOSE (AUTOMATED)2022-03-10 13:30:10 Test Item Value Reference Range Interpretation Comments POCT GLU (test code = 7086861349) 142 mg/dL 70-110 H Lab Interpretation (test code = Abnormal 25491-8) [facility]2022-03-10 13:30:10 Test Item Value Reference Range Interpretation Comments POCT GLU (test code = 1574054748) 142 mg/dL 70-110 H Lab Interpretation (test code = Abnormal 27304-2) [facility] GLUCOSE (AUTOMATED)2022-03-10 13:30:10 Test Item Value Reference Range Interpretation Comments POCT GLU (test code = 0560717347) 142 mg/dL 70-110 H Lab Interpretation (test code = Abnormal 68021-5) [facility] GLUCOSE (AUTOMATED)2022-03-10 01:53:31 Test Item Value Reference Range Interpretation Comments POCT GLU (test code = 0597938081) 167 mg/dL 70-110 H Lab Interpretation (test code = Abnormal 20428-0) [facility] GLUCOSE (AUTOMATED)2022-03-10 01:53:31 Test Item Value Reference Range Interpretation Comments POCT GLU (test code = 9703976018) 167 mg/dL 70-110 H Lab Interpretation (test code = Abnormal 59432-0) [facility] GLUCOSE (AUTOMATED)2022-03-10 01:53:31 Test Item Value Reference Range Interpretation Comments POCT GLU (test code = 3585011704) 167 mg/dL 70-110 H Lab Interpretation (test code = Abnormal 29543-6) [facility] GLUCOSE (AUTOMATED)2022-03-09 23:34:36 Test Item Value Reference Range Interpretation Comments POCT GLU (test code = 5699988113) 185 mg/dL 70-110 H Lab Interpretation (test code = Abnormal 49343-3) [facility] GLUCOSE (AUTOMATED)2022-03-09 23:34:36 Test Item Value Reference Range Interpretation Comments POCT GLU (test code = 4596029250) 185 mg/dL 70-110 H Lab Interpretation (test code = Abnormal 54720-8) [facility] GLUCOSE (AUTOMATED)2022-03-09 23:34:36 Test Item Value Reference Range Interpretation Comments POCT GLU (test code = 5015725717) 185 mg/dL 70-110 H Lab Interpretation (test code = Abnormal 31807-0) [facility] GLUCOSE (AUTOMATED)2022-03-09 17:29:55 Test Item Value Reference Range Interpretation Comments POCT GLU (test code = 0940999226) 131 mg/dL 70-110 H Lab Interpretation (test code = Abnormal 73421-2[facility] 17:29:55 Test Item Value Reference Range Interpretation Comments POCT GLU (test code = 5614651205) 131 mg/dL 70-110 H Lab Interpretation (test code = Abnormal 63689-7) [facility] 17:29:55 Test Item Value Reference Range Interpretation Comments POCT GLU (test code = 9972183392) 131 mg/dL 70-110 H Lab Interpretation (test code = Abnormal 88772-9) [facility] GLUCOSE (AUTOMATED)2022-03-09 13:37:07 Test Item Value Reference Range Interpretation Comments POCT GLU (test code = 6779957533) 112 mg/dL 70-110 H Lab Interpretation (test code = Abnormal 61169-6) [facility] 13:37:07 Test Item Value Reference Range Interpretation Comments POCT GLU (test code = 4964870660) 112 mg/dL 70-110 H Lab Interpretation (test code = Abnormal 97362-0) [facility] 13:37:07 Test Item Value Reference Range Interpretation Comments POCT GLU (test code = 7070103506) 112 mg/dL 70-110 H Lab Interpretation (test code = Abnormal 39860-0) [facility] 02:23:58 Test Item Value Reference Range Interpretation Comments POCT GLU (test code = 2694542655) 166 mg/dL 70-110 H Lab Interpretation (test code = Abnormal 69519-9) [facility]-09 02:23:58 Test Item Value Reference Range Interpretation Comments POCT GLU (test code = 0503194509) 166 mg/dL 70-110 H Lab Interpretation (test code = Abnormal 89598-9) [facility] GLUCOSE (AUTOMATED)2022-03-09 02:23:58 Test Item Value Reference Range Interpretation Comments POCT GLU (test code = 8292313140) 166 mg/dL 70-110 H Lab Interpretation (test code = Abnormal 75670-2) [facility] and Screen - ONCE Yavmuxj6624-95-15 22:19:24 Test Item Value Reference Range Interpretation Comments ABO & RH (test code O POSITIVE Performe d at [facility] = 20) Laboratory [facility] Blood [facility] [place] [address]Yepe Free: [phone] A No. [id number] IAT (test code = Negative Performed a t [facility] 1185) Laboratory [facility] Blood [address] [address]Xaed Free: [phone] A No. [id number] [facility] and Screen - ONCE Wxgkrdu1080-23-09 22:19:24 Test Item Value Reference Range Interpretation Comments ABO & RH (test code O POSITIVE Performe d at [facility] = 20) Laboratory [facility] Blood [facility] [address] [place] [address]Bpdk Free: [phone] A No. [id number] IAT (test code = Negative Performed a t [facility] 1185) Laboratory [facility] Blood [address] s [address]Xiwn Free: [phone] A No. [id number] [facility] and Screen - ONCE Apznvkl5403-79-94 22:19:24 Test Item Value Reference Range Interpretation Comments ABO & RH (test code O POSITIVE Performe d at [facility] = 20) Laboratory [facility] [place] [address]Xoay Free: [phone] A No. [id number] IAT (test code = Negative Performed a t [facility] 1185) Laboratory [facility] [place] [address] s [id number] Free: [phone] A No. [id number] [facility] and Screen - ONCE Hmpnour5644-48-16 22:19:24 Test Item Value Reference Range Interpretation Comments ABO & RH (test code O POSITIVE Performe d at [facility] = 20) Laboratory [facility] [address] [place] [address] s [id number] Free: [phone] A No. [id number] IAT (test code = Negative Performed a t [facility] 1185) Laboratory [facility] [place] [address] s [address]Ndgi Free: [phone] A No. [id number] [facility] Uudrwnu7556-67-37 22:19:24 Test Item Value Reference Range Interpretation Comments ABO & RH (test code O POSITIVE Performe d at [facility] = 20) Laboratory [facility] Blood [facility] [address] [place] [address] s [id number] Free: [phone] A No. [id number] IAT (test code = Negative Performed a t [facility] 1185) Laboratory [facility] Blood [facility] [address] [place] [address] s [id number] Free: [phone] A No. [id number] [facility] GLUCOSE (AUTOMATED)2022-03-08 21:52:51 Test Item Value Reference Range Interpretation Comments POCT GLU (test code = 5013509696) 157 mg/dL 70-110 H Lab Interpretation (test code = Abnormal 85773-5) [facility] GLUCOSE (AUTOMATED)2022-03-08 21:52:51 Test Item Value Reference Range Interpretation Comments POCT GLU (test code = 3195188959) 157 mg/dL 70-110 H Lab Interpretation (test code = Abnormal 18819-9) [facility] GLUCOSE (AUTOMATED)2022-03-08 21:52:51 Test Item Value Reference Range Interpretation Comments POCT GLU (test code = 0995409472) 157 mg/dL 70-110 H Lab Interpretation (test code = Abnormal 74185-6) [facility] GLUCOSE (AUTOMATED)2022-03-08 17:27:00 Test Item Value Reference Range Interpretation Comments POCT GLU (test code = 6534573646) 115 mg/dL 70-110 H Lab Interpretation (test code = Abnormal 05043-6) [facility] GLUCOSE (AUTOMATED)2022-03-08 17:27:00 Test Item Value Reference Range Interpretation Comments POCT GLU (test code = 7685313560) 115 mg/dL 70-110 H Lab Interpretation (test code = Abnormal 23459-4) [facility] GLUCOSE (AUTOMATED)2022-03-08 17:27:00 Test Item Value Reference Range Interpretation Comments POCT GLU (test code = 9165665065) 115 mg/dL 70-110 H Lab Interpretation (test code = Abnormal 74460-0) [facility] GLUCOSE (AUTOMATED)2022-03-08 13:36:37 Test Item Value Reference Range Interpretation Comments POCT GLU (test code = 4359228213) 113 mg/dL 70-110 H Lab Interpretation (test code = Abnormal 12907-8) [facility] GLUCOSE (AUTOMATED)2022-03-08 13:36:37 Test Item Value Reference Range Interpretation Comments POCT GLU (test code = 6060306747) 113 mg/dL 70-110 H Lab Interpretation (test code = Abnormal 45508-9) [facility] GLUCOSE (AUTOMATED)2022-03-08 13:36:37 Test Item Value Reference Range Interpretation Comments POCT GLU (test code = 6775607866) 113 mg/dL 70-110 H Lab Interpretation (test code = Abnormal 62253-7) [facility] GLUCOSE (AUTOMATED)2022-03-08 12:24:57 Test Item Value Reference Range Interpretation Comments POCT GLU (test code = 1791192173) 115 mg/dL 70-110 H Lab Interpretation (test code = Abnormal 22995-3) [facility] GLUCOSE (AUTOMATED)2022-03-08 12:24:57 Test Item Value Reference Range Interpretation Comments POCT GLU (test code = 5495694703) 115 mg/dL 70-110 H Lab Interpretation (test code = Abnormal 99579-8) [facility] GLUCOSE (AUTOMATED)2022-03-08 12:24:57 Test Item Value Reference Range Interpretation Comments POCT GLU (test code = 2652594032) 115 mg/dL 70-110 H Lab Interpretation (test code = Abnormal 30703-4) [facility]2022-03-08 02:36:30 Test Item Value Reference Range Interpretation Comments POCT GLU (test code = 4157939958) 211 mg/dL 70-110 H Lab Interpretation (test code = Abnormal 73670-9) [facility] GLUCOSE (AUTOMATED)2022-03-08 02:36:30 Test Item Value Reference Range Interpretation Comments POCT GLU (test code = 7980730638) 211 mg/dL 70-110 H Lab Interpretation (test code = Abnormal 56053-0) [facility]2022-03-08 02:36:30 Test Item Value Reference Range Interpretation Comments POCT GLU (test code = 1279852613) 211 mg/dL 70-110 H Lab Interpretation (test code = Abnormal 63860-3) [facility] GLUCOSE (AUTOMATED)2022-03-08 00:07:30 Test Item Value Reference Range Interpretation Comments POCT GLU (test code = 6108151798) 130 mg/dL 70-110 H Lab Interpretation (test code = Abnormal 80669-3) [facility]2022-03-08 00:07:30 Test Item Value Reference Range Interpretation Comments POCT GLU (test code = 1331039732) 130 mg/dL 70-110 H Lab Interpretation (test code = Abnormal 01027-7) [facility] GLUCOSE (AUTOMATED)2022-03-08 00:07:30 Test Item Value Reference Range Interpretation Comments POCT GLU (test code = 6241193559) 130 mg/dL 70-110 H Lab Interpretation (test code = Abnormal 90893-5) [facility]2022-03-07 18:37:06 Test Item Value Reference Range Interpretation Comments POCT GLU (test code = 0254725092) 99 mg/dL 70-110 Lab Interpretation (test code = Normal 95821-2) [facility]2022-03-07 18:37:06 Test Item Value Reference Range Interpretation Comments POCT GLU (test code = 5040346067) 99 mg/dL 70-110 Lab Interpretation (test code = Normal 53602-9) [facility] 18:37:06 Test Item Value Reference Range Interpretation Comments POCT GLU (test code = 1165056409) 99 mg/dL 70-110 Lab Interpretation (test code = Normal 16756-3) [facility] GLUCOSE (AUTOMATED)2022-03-07 11:56:20 Test Item Value Reference Range Interpretation Comments POCT GLU (test code = 5223661493) 86 mg/dL 70-110 Lab Interpretation (test code = Normal 75878-2) [facility] GLUCOSE (AUTOMATED)2022-03-07 11:56:20 Test Item Value Reference Range Interpretation Comments POCT GLU (test code = 9873201590) 86 mg/dL 70-110 Lab Interpretation (test code = Normal 19961-0) [facility] GLUCOSE (AUTOMATED)2022-03-07 11:56:20 Test Item Value Reference Range Interpretation Comments POCT GLU (test code = 4227239834) 86 mg/dL 70-110 Lab Interpretation (test code = Normal 50480-2) [facility] GLUCOSE (AUTOMATED)2022-03-07 02:39:21 Test Item Value Reference Range Interpretation Comments POCT GLU (test code = 1624035704) 153 mg/dL 70-110 H Lab Interpretation (test code = Abnormal 20208-3) [facility] GLUCOSE (AUTOMATED)2022-03-07 02:39:21 Test Item Value Reference Range Interpretation Comments POCT GLU (test code = 1279583534) 153 mg/dL 70-110 H Lab Interpretation (test code = Abnormal 89601-8) [facility] GLUCOSE (AUTOMATED)2022-03-07 02:39:21 Test Item Value Reference Range Interpretation Comments POCT GLU (test code = 9786629336) 153 mg/dL 70-110 H Lab Interpretation (test code = Abnormal 55776-7) [facility] GLUCOSE (AUTOMATED)2022-03-07 00:29:42 Test Item Value Reference Range Interpretation Comments POCT GLU (test code = 9330741176) 151 mg/dL 70-110 H Lab Interpretation (test code = Abnormal 43642-5) [facility] GLUCOSE (AUTOMATED)2022-03-07 00:29:42 Test Item Value Reference Range Interpretation Comments POCT GLU (test code = 1864809583) 151 mg/dL 70-110 H Lab Interpretation (test code = Abnormal 29172-1) [facility] GLUCOSE (AUTOMATED)2022-03-07 00:29:42 Test Item Value Reference Range Interpretation Comments POCT GLU (test code = 0770764961) 151 mg/dL 70-110 H Lab Interpretation (test code = Abnormal 29385-6) [facility] GLUCOSE (AUTOMATED)2022-03-06 19:35:41 Test Item Value Reference Range Interpretation Comments POCT GLU (test code = 2105362463) 207 mg/dL 70-110 H Lab Interpretation (test code = Abnormal 18053-6) [facility] GLUCOSE (AUTOMATED)2022-03-06 19:35:41 Test Item Value Reference Range Interpretation Comments POCT GLU (test code = 6578402856) 207 mg/dL 70-110 H Lab Interpretation (test code = Abnormal 17757-0) [facility] GLUCOSE (AUTOMATED)2022-03-06 19:35:41 Test Item Value Reference Range Interpretation Comments POCT GLU (test code = 4680292361) 207 mg/dL 70-110 H Lab Interpretation (test code = Abnormal 61426-7) [facility] GLUCOSE (AUTOMATED)2022-03-06 15:37:31 Test Item Value Reference Range Interpretation Comments POCT GLU (test code = 7990079049) 115 mg/dL 70-110 H Lab Interpretation (test code = Abnormal 33339-0) [facility] GLUCOSE (AUTOMATED)2022-03-06 15:37:31 Test Item Value Reference Range Interpretation Comments POCT GLU (test code = 9777172094) 115 mg/dL 70-110 H Lab Interpretation (test code = Abnormal 64900-7) [facility] GLUCOSE (AUTOMATED)2022-03-06 15:37:31 Test Item Value Reference Range Interpretation Comments POCT GLU (test code = 4643832140) 115 mg/dL 70-110 H Lab Interpretation (test code = Abnormal 40870-8) [facility] GLUCOSE (AUTOMATED)2022-03-06 03:02:54 Test Item Value Reference Range Interpretation Comments POCT GLU (test code = 7265683920) 149 mg/dL 70-110 H Lab Interpretation (test code = Abnormal 26026-6) [facility] GLUCOSE (AUTOMATED)2022-03-06 03:02:54 Test Item Value Reference Range Interpretation Comments POCT GLU (test code = 6557727185) 149 mg/dL 70-110 H Lab Interpretation (test code = Abnormal 68471-8) [facility] GLUCOSE (AUTOMATED)2022-03-06 03:02:54 Test Item Value Reference Range Interpretation Comments POCT GLU (test code = 0141295905) 149 mg/dL 70-110 H Lab Interpretation (test code = Abnormal 57695-9) [facility] GLUCOSE (AUTOMATED)2022-03-05 23:42:01 Test Item Value Reference Range Interpretation Comments POCT GLU (test code = 6901045360) 173 mg/dL 70-110 H Lab Interpretation (test code = Abnormal 11239-8) [facility] GLUCOSE (AUTOMATED)2022-03-05 23:42:01 Test Item Value Reference Range Interpretation Comments POCT GLU (test code = 6055897411) 173 mg/dL 70-110 H Lab Interpretation (test code = Abnormal 35344-9) [facility] GLUCOSE (AUTOMATED)2022-03-05 23:42:01 Test Item Value Reference Range Interpretation Comments POCT GLU (test code = 7151411834) 173 mg/dL 70-110 H Lab Interpretation (test code = Abnormal 52381-7) [facility] GLUCOSE (AUTOMATED)2022-03-05 19:04:44 Test Item Value Reference Range Interpretation Comments POCT GLU (test code = 4275155551) 154 mg/dL 70-110 H Lab Interpretation (test code = Abnormal 72365-4) [facility] GLUCOSE (AUTOMATED)2022-03-05 19:04:44 Test Item Value Reference Range Interpretation Comments POCT GLU (test code = 7666102729) 154 mg/dL 70-110 H Lab Interpretation (test code = Abnormal 28120-4) [facility] GLUCOSE (AUTOMATED)2022-03-05 19:04:44 Test Item Value Reference Range Interpretation Comments POCT GLU (test code = 5597988498) 154 mg/dL 70-110 H Lab Interpretation (test code = Abnormal 08899-3) [facility] GLUCOSE (AUTOMATED)2022-03-05 15:56:46 Test Item Value Reference Range Interpretation Comments POCT GLU (test code = 1519588994) 101 mg/dL 70-110 Lab Interpretation (test code = Normal 59779-3) [facility] GLUCOSE (AUTOMATED)2022-03-05 15:56:46 Test Item Value Reference Range Interpretation Comments POCT GLU (test code = 2977912668) 101 mg/dL 70-110 Lab Interpretation (test code = Normal 55668-1) [facility] GLUCOSE (AUTOMATED)2022-03-05 15:56:46 Test Item Value Reference Range Interpretation Comments POCT GLU (test code = 6028211990) 101 mg/dL 70-110 Lab Interpretation (test code = Normal 30765-0) [facility] GLUCOSE (AUTOMATED)2022-03-05 02:52:46 Test Item Value Reference Range Interpretation Comments POCT GLU (test code = 3058060808) 124 mg/dL 70-110 H Lab Interpretation (test code = Abnormal 80085-0) [facility] GLUCOSE (AUTOMATED)2022-03-05 02:52:46 Test Item Value Reference Range Interpretation Comments POCT GLU (test code = 6456464396) 124 mg/dL 70-110 H Lab Interpretation (test code = Abnormal 70032-3) [facility] GLUCOSE (AUTOMATED)2022-03-05 02:52:46 Test Item Value Reference Range Interpretation Comments POCT GLU (test code = 7323310274) 124 mg/dL 70-110 H Lab Interpretation (test code = Abnormal 11938-2) [facility] [id number] 00:00:00 Test Item Value Reference Range Interpretation Comments HEMOGLOBIN A1c (test code = 95493) 11.3 % HEMOGLOBIN [id number] 00:00:00 Test Item Value Reference Range Interpretation Comments HEMOGLOBIN A1c (test code = 79904) 11.3 % HEMOGLOBIN [id number] 00:00:00 Test Item Value Reference Range Interpretation Comments HEMOGLOBIN A1c (test code = 37132) 11.3 % LIPID [id number] 00:00:00 Test Item Value Reference Range Interpretation Comments CHOLESTEROL (test code = 2210) 171 MG/DL TRIGLYCERIDES (test code = 2232) 178 MG/DL HDL CHOLESTEROL (test code = 2220) 33 MG/DL CALC LDL CHOL (test code = 2237) 108 MG/DL RISK RATIO LDL/HDL (test code = 3.27 RATIO 2238) LIPID [id number] 00:00:00 Test Item Value Reference Range Interpretation Comments CHOLESTEROL (test code = 2210) 171 MG/DL TRIGLYCERIDES (test code = 2232) 178 MG/DL HDL CHOLESTEROL (test code = 2220) 33 MG/DL CALC LDL CHOL (test code = 2237) 108 MG/DL RISK RATIO LDL/HDL (test code = 3.27 RATIO 2238) COMPREHENSIVE METABOLIC [id number] 00:00:00 Test Item Value Reference Range Interpretation Comments GLUCOSE (test code = 2217) 188 MG/DL BUN (test code = 2208) 11 MG/DL CREATININE (test code = 2214) 0.78 MG/DL eGFR (2020 CKD-EPI) (test 103 ML/MIN/1.73 code = 19102) CALC BUN/CREAT (test code = 14 RATIO 2235) SODIUM (test code = 2231) 139 MEQ/L POTASSIUM (test code = 2228) 3.3 MEQ/L CHLORIDE (test code = 2215) 99 MEQ/L CARBON DIOXIDE (test code = 29 MEQ/L 6) CALCIUM (test code = 2209) 9.3 MG/DL PROTEIN, TOTAL (test code = 7.2 G/DL 2228) ALBUMIN (test code = 2201) 4.0 G/DL CALC GLOBULIN (test code = 3.2 G/DL 2240) CALC A/G RATIO (test code = 1.3 RATIO 2234) BILIRUBIN, TOTAL (test code = 0.5 MG/DL 2206) ALKALINE PHOSPHATASE (test 147 U/L code = 2204) AST (test code = 2218) 18 U/L ALT (test code = 2219) 17 U/L COMPREHENSIVE METABOLIC [id number] 00:00:00 Test Item Value Reference Range Interpretation Comments GLUCOSE (test code = 2217) 188 MG/DL BUN (test code = 2208) 11 MG/DL CREATININE (test code = 2214) 0.78 MG/DL eGFR (2020 CKD-EPI) (test 103 ML/MIN/1.73 code = 58549) CALC BUN/CREAT (test code = 14 RATIO 2235) SODIUM (test code = 2231) 139 MEQ/L POTASSIUM (test code = 2228) 3.3 MEQ/L CHLORIDE (test code = 2215) 99 MEQ/L CARBON DIOXIDE (test code = 29 MEQ/L 2205) CALCIUM (test code = 2209) 9.3 MG/DL PROTEIN, TOTAL (test code = 7.2 G/DL 2228) ALBUMIN (test code = 2201) 4.0 G/DL CALC GLOBULIN (test code = 3.2 G/DL 2239) CALC A/G RATIO (test code = 1.3 RATIO 2233) BILIRUBIN, TOTAL (test code = 0.5 MG/DL 2206) ALKALINE PHOSPHATASE (test 147 U/L code = 2204) AST (test code = 2218) 18 U/L ALT (test code = 2219) 17 U/L HEMOGLOBIN [id number] 00:00:00 Test Item Value Reference Range Interpretation Comments HEMOGLOBIN A1c (test code = 29038) 11.3 % HEMOGLOBIN [id number] 00:00:00 Test Item Value Reference Range Interpretation Comments HEMOGLOBIN A1c (test code = 67616) 11.3 % HEMOGLOBIN [id number] 00:00:00 Test Item Value Reference Range Interpretation Comments HEMOGLOBIN A1c (test code = 42630) 11.3 % LIPID [id number] 00:00:00 Test Item Value Reference Range Interpretation Comments CHOLESTEROL (test code = 2210) 171 MG/DL TRIGLYCERIDES (test code = 2232) 178 MG/DL HDL CHOLESTEROL (test code = 2220) 33 MG/DL CALC LDL CHOL (test code = 2237) 108 MG/DL RISK RATIO LDL/HDL (test code = 3.27 RATIO 2238) LIPID [id number] 00:00:00 Test Item Value Reference Range Interpretation Comments CHOLESTEROL (test code = 2210) 171 MG/DL TRIGLYCERIDES (test code = 2232) 178 MG/DL HDL CHOLESTEROL (test code = 2220) 33 MG/DL CALC LDL CHOL (test code = 2237) 108 MG/DL RISK RATIO LDL/HDL (test code = 3.27 RATIO 2238) COMPREHENSIVE METABOLIC [id number] 00:00:00 Test Item Value Reference Range Interpretation Comments GLUCOSE (test code = 2217) 188 MG/DL BUN (test code = 2208) 11 MG/DL CREATININE (test code = 2214) 0.78 MG/DL eGFR (2020 CKD-EPI) (test 103 ML/MIN/1.73 code = 49339) CALC BUN/CREAT (test code = 14 RATIO 2235) SODIUM (test code = 2231) 139 MEQ/L POTASSIUM (test code = 2228) 3.3 MEQ/L CHLORIDE (test code = 2215) 99 MEQ/L CARBON DIOXIDE (test code = 29 MEQ/L 2206) CALCIUM (test code = 2209) 9.3 MG/DL PROTEIN, TOTAL (test code = 7.2 G/DL 2229) ALBUMIN (test code = 2201) 4.0 G/DL CALC GLOBULIN (test code = 3.2 G/DL 2240) CALC A/G RATIO (test code = 1.3 RATIO 2234) BILIRUBIN, TOTAL (test code = 0.5 MG/DL 2206) ALKALINE PHOSPHATASE (test 147 U/L code = 2204) AST (test code = 2218) 18 U/L ALT (test code = 2219) 17 U/L COMPREHENSIVE METABOLIC [id number] 00:00:00 Test Item Value Reference Range Interpretation Comments GLUCOSE (test code = 2217) 188 MG/DL BUN (test code = 2208) 11 MG/DL CREATININE (test code = 2214) 0.78 MG/DL eGFR (2020 CKD-EPI) (test 103 ML/MIN/1.73 code = 05078) CALC BUN/CREAT (test code = 14 RATIO 2235) SODIUM (test code = 2231) 139 MEQ/L POTASSIUM (test code = 2228) 3.3 MEQ/L CHLORIDE (test code = 2215) 99 MEQ/L CARBON DIOXIDE (test code = 29 MEQ/L 2206) CALCIUM (test code = 2209) 9.3 MG/DL PROTEIN, TOTAL (test code = 7.2 G/DL 2229) ALBUMIN (test code = 2201) 4.0 G/DL CALC GLOBULIN (test code = 3.2 G/DL 2240) CALC A/G RATIO (test code = 1.3 RATIO 2234) BILIRUBIN, TOTAL (test code = 0.5 MG/DL 2207) ALKALINE PHOSPHATASE (test 147 U/L code = 2204) AST (test code = 2218) 18 U/L ALT (test code = 2219) 17 U/L COMP. METABOLIC PANEL (08878)2021-12-25 15:03:27 Test Item Value Reference Range Interpretation Comments NA (test code = 136 mmol/L 135-145 7727831390) K (test code = 4.1 mmol/L 3.5-5 4681682589) CL (test code = 102 mmol/L 98-108 2829198182) CO2 TOTAL (test code = 23 mmol/L 23-31 1993362158) AGAP (test code = 2-16 3434305627) BUN (test code = 12 mg/dL 7-23 6451768602) GLUCOSE (test code = 318 mg/dL 70-110 H 3240827967) CREATININE (test code = 0.77 mg/dL 0.6-1.25 8766789683) TOTAL BILI (test code = 0.6 mg/dL 0.1-1.5 2801362047) CALCIUM (test code = 8.6 mg/dL 8.6-10.6 4886207732) T PROTEIN (test code = 6.8 g/dL 6.3-8.2 4207443422) ALBUMIN (test code = 3.9 g/dL 3.5-5 4460475371) ALK PHOS (test code = 165 U/L 34-122 H 6231308673) ALTv (test code = 32 U/L 5-50 1742-6) AST(SGOT) (test code = 24 U/L 13-40 9119806227) eGFR (test code = mL/min/1.73m2 6190993655) LUIS (test code = LUIS) Association of [...] tests). Lab Interpretation Abnormal (test code = 13674-9) [facility]. METABOLIC PANEL (69353)2021-12-25 15:03:27 Test Item Value Reference Range Interpretation Comments NA (test code = 136 mmol/L 135-145 3148215168) K (test code = 4.1 mmol/L 3.5-5.0 5008479508) CL (test code = 102 mmol/L 98-108 4051851264) CO2 TOTAL (test code = 23 mmol/L 23-31 5151994399) AGAP (test code = 2-16 2780500239) BUN (test code = 12 mg/dL 7-23 9109813451) GLUCOSE (test code = 318 mg/dL 70-110 H 9688483395) CREATININE (test code = 0.77 mg/dL 0.60-1.25 3295910097) TOTAL BILI (test code = 0.6 mg/dL 0.1-1.6 1176846556) CALCIUM (test code = 8.6 mg/dL 8.6-10.6 0157346060) T PROTEIN (test code = 6.8 g/dL 6.3-8.2 7823693954) ALBUMIN (test code = 3.9 g/dL 3.5-5.0 7010195215) ALK PHOS (test code = 165 U/L 34-122 H 0797554506) ALTv (test code = 32 U/L 5-50 1742-6) AST(SGOT) (test code = 24 U/L 13-40 4044836801) eGFR (test code = mL/min/1.73m2 8594097917) LUIS (test code = LUIS) Association of [...] tests). Lab Interpretation Abnormal (test code = 55428-6) [facility]. METABOLIC PANEL (10357)2021-12-25 15:03:27 Test Item Value Reference Range Interpretation Comments NA (test code = 136 mmol/L 135-145 6208077641) K (test code = 4.1 mmol/L 3.5-5.0 7379609890) CL (test code = 102 mmol/L 98-108 2490632426) CO2 TOTAL (test code = 23 mmol/L 23-31 3852892794) AGAP (test code = 2-16 7082821519) BUN (test code = 12 mg/dL 7-23 9812377873) GLUCOSE (test code = 318 mg/dL 70-110 H 4266051634) CREATININE (test code = 0.77 mg/dL 0.60-1.25 5161269608) TOTAL BILI (test code = 0.6 mg/dL 0.1-1.6 4341837601) CALCIUM (test code = 8.6 mg/dL 8.6-10.6 2370827821) T PROTEIN (test code = 6.8 g/dL 6.3-8.2 7808978301) ALBUMIN (test code = 3.9 g/dL 3.5-5.0 0171854684) ALK PHOS (test code = 165 U/L 34-122 H 0275471686) ALTv (test code = 32 U/L 5-50 1742-6) AST(SGOT) (test code = 24 U/L 13-40 1515117593) eGFR (test code = mL/min/1.73m2 4554400190) LUIS (test code = LUIS) Association of [...] tests). Lab Interpretation Abnormal (test code = 24120-9) [facility] WITH [id number] 14:53:24 Test Item Value Reference Range Interpretation [...] RDW-SD (test code = 39.2 fL 38.5-51.6 03770-5) RDW-CV (test code = 12.9 % 12.1-15.4 788-0) PLT (test code = See_Comment [Automated 777-3) message] The sy stem which generated this result transmitted reference range : 150 - 328 10*3/ ?L. The reference r neno was not used to interpret this result as normal/abnormal . MPV (test code = 9.2 fL 9.8-13 L 51001-5) NRBC/100 WBC (test See_Comment [Automat ed code = 6843488962) message] The system which generated this result transmitted reference range : 0.0 - 10.0 /100 WBCs. The refer ence range was not u sed to interpret th is result as normal/abnormal . NRBC x10^3 (test code See_Comment [Auto mated = 7226852085) message] The s ystem which generated this result transmitted reference range : 10*3/?L. The reference range was not used to interpret this result as normal/abnormal . GRAN MAT (NEUT) % 71.6 % (test code = 770-8) IMM GRAN % (test code 0.40 % = 4829599794) LYMPH % (test code = 18.8 % 736-9) MONO % (test code = 6.7 % 5905-5) EOS % (test code = 1.7 % 713-8) BASO % (test code = 0.8 % 706-2) GRAN MAT x10^3(ANC) 5.46 10*3/uL 1.99-6.95 (test code = 0533787464) IMM GRAN x10^3 (test 0.03 10*3/uL 0-0.06 code = 7612459268) LYMPH x10^3 (test code 1.43 10*3/uL 1.09-3.23 = 731-0) MONO x10^3 (test code 0.51 10*3/uL 0.36-1.02 = 742-7) EOS x10^3 (test code = 0.13 10*3/uL 0.06-0.53 711-2) BASO x10^3 (test code 0.06 10*3/uL 0.01-0.09 = 704-7) Lab Interpretation Abnormal (test code = 58094-8) [facility]05 Test Item Value Reference Range Interpretation [...] ATED, ALL TESTING PERFORM ED ATCLINICAL PATHOLOGY LABOR [employer] [address] [facility] [place] [place] [address] LABORATOR Y DIRECTOR: RASHID HOPSON M.D. CLIA NUMBER [id number] CAP ACCREDITATION N O. [id number] LIPID [id number] 05:00:16 Test Item Value Reference Range Interpretation [...] MOREINFORMATION , SEE CLIENT ANNOUNCE MENT AT [email or web address] [email or web address] RATIO LDL/HDL 2.34 RATIO <3.55 (test code = 2238) COMPREHENSIVE METABOLIC [id number] 05:00:16 Test Item Value Reference Range Interpretation Comments GLUCOSE (test code = 250 MG/DL 70-99 H 2216) BUN (test code = 18 MG/DL 6-20 2207) CREATININE (test 1.17 MG/DL 0.80-1.40 code = 2214) eGFR (2020 CKD-EPI) 72 ML/MIN/1.73 >60 (test code = 51853) CALC BUN/CREAT (test 15 RATIO 6-28 code = 2235) SODIUM (test code = 141 MEQ/L 210-058 3200) POTASSIUM (test code 4.4 MEQ/L 3.5-5.4 = 2227) CHLORIDE (test code 106 MEQ/L 95-107 = 221) CARBON DIOXIDE (test 24 MEQ/L 19-31 code = 2206) CALCIUM (test code = 9.1 MG/DL 8.5-10.5 2208) PROTEIN, TOTAL (test 6.5 G/DL 6.1-8.3 code = 2229) ALBUMIN (test code = 3.7 G/DL 3.5-5.2 [...] code = 30 U/L 5-50 2218) HEMOGLOBIN [id number] 04:11:01 Test Item Value Reference Range Interpretation Comments HEMOGLOBIN A1c (test 10.5 % 4.2-5.6 H [employer] code = 93437) ASSOCIATION IDE[employer] FOR HGB A1C: PREDIABETES/INC REASED [...] ATE TESTING OR LABORATORY C ONSULTATION. HEMOGLOBIN [id number] 07:49:13 Test Item Value Reference Range Interpretation Comments HEMOGLOBIN A1c (test 11.7 % 4.2-5.6 H [employer] code = 68154) ASSOCIATION [employer] FOR HGB A1C: PREDIABETES/INC REASED RISK . . . . . . . 5 .7-6.4% DIAGNOSIS OF DI ABETES . . . . . . . . . > =6.5% WITH CONFIRMATION OR APPROPRIATE SYMPTOMS NOTE: ASSAY MAY BE AFFECTED BY HEMOGLOBINOPATH IES (SICKLE CELL ANEMIA, S- C DISEASE, OTHERS) OR HARISH FICIALLY LOWERED BY DECR EASED RED CELL SURVIVAL ( HEMOLYTIC ANEMIAS, BLOOD LOSS, ETC.). CONSIDER ALTERN ATE TESTING OR LABORATORY C ONSULTATION. COMPREHENSIVE METABOLIC [id number] 05:31:44 Test Item Value Reference Range Interpretation Comments GLUCOSE (test code = 209 MG/DL 70-99 H 2216) BUN (test code = 12 MG/DL 6-20 2207) CREATININE (test 0.73 MG/DL 0.80-1.40 L code = 2213) eGFR (2020 CKD-EPI) 106 >60 (test code = 18576) ML/MIN/1.73 CALC BUN/CREAT (test 16 RATIO 6-28 code = 2235) SODIUM (test code = 139 MEQ/L 699-837 3320) POTASSIUM (test code 4.2 MEQ/L 3.5-5.4 = 2227) CHLORIDE (test code 101 MEQ/L 95-107 = 221) CARBON DIOXIDE (test 24 MEQ/L 19-31 code = 220) CALCIUM (test code = 8.7 MG/DL 8.5-10.5 2208) PROTEIN, TOTAL (test 6.8 G/DL 6.1-8.3 code = 222) ALBUMIN (test code = 4.0 G/DL 3.5-5.2 2200) CALC GLOBULIN (test 2.8 G/DL 1.9-3.7 code = 224) CALC A/G RATIO (test 1.4 RATIO 1.0-2.6 code = 223) BILIRUBIN, TOTAL 0.2 MG/DL See_Comment [Automated message] (test code = 2206) The syste m which generated this result transmit alex reference range : <=1.2. The refe rence range was not u sed to interpret th is result as normal/abnormal . ALKALINE PHOSPHATASE 144 U/L 40-123 H (test code = 2203) AST (test code = 22 U/L 9-50 2217) ALT (test code = 32 U/L 5-50 2218) LIPID [id number] 05:31:44 Test Item Value Reference Range Interpretation [...] , SEE CLIENT ANNOUNCE MENT AT [email or web address] RISK RATIO LDL/HDL 1.72 RATIO <3.55 UNLESS O THERWISE (test code = 2238) INDICATED , ALL TESTING PERFORMED [facility], [facility]. [address] [facility] [place] [address] [facility] DIRECTOR: Bruce CERDA NUMBER [id number] CAP ACCREDITATION N O. [id number] COMPREHENSIVE METABOLIC [id number] 00:00:00 Test Item Value Reference Range Interpretation Comments GLUCOSE (test code = 2217) 209 MG/DL BUN (test code = 2208) 12 MG/DL CREATININE (test code = 2214) 0.73 MG/DL eGFR (2020 CKD-EPI) (test 106 ML/MIN/1.73 code = 12694) CALC BUN/CREAT (test code = 16 RATIO 223) SODIUM (test code = 2231) 139 MEQ/L [...] code = 2219) 32 U/L COMPREHENSIVE METABOLIC [id number] 00:00:00 Test Item Value Reference Range Interpretation Comments GLUCOSE (test code = 2217) 209 MG/DL BUN (test code = 2208) 12 MG/DL CREATININE (test code = 2214) 0.73 MG/DL eGFR (2020 CKD-EPI) (test 106 ML/MIN/1.73 code = 33967) CALC BUN/CREAT (test code = 16 RATIO [...] (test code = 2219) 32 U/L LIPID [id number] 00:00:00 Test Item Value Reference Range Interpretation Comments CHOLESTEROL (test code = 2210) 184 MG/DL TRIGLYCERIDES (test code = 2232) 196 MG/DL HDL CHOLESTEROL (test code = 2220) 57 MG/DL CALC LDL CHOL (test code = 2237) 98 MG/DL RISK RATIO LDL/HDL (test code = 1.72 RATIO 2238) LIPID [id number] 00:00:00 Test Item Value Reference Range Interpretation Comments CHOLESTEROL (test code = 2210) 184 MG/DL TRIGLYCERIDES (test code = 2232) 196 MG/DL HDL CHOLESTEROL (test code = 2220) 57 MG/DL CALC LDL CHOL (test code = 2237) 98 MG/DL RISK RATIO LDL/HDL (test code = 1.72 RATIO 2238) HEMOGLOBIN [id number] 00:00:00 Test Item Value Reference Range Interpretation Comments HEMOGLOBIN A1c (test code = 18551) 11.7 % HEMOGLOBIN [id number] 00:00:00 Test Item Value Reference Range Interpretation Comments HEMOGLOBIN A1c (test code = 44696) 11.7 % HEMOGLOBIN [id number] 00:00:00 Test Item Value Reference Range Interpretation Comments HEMOGLOBIN A1c (test code = 66866) 11.7 % COMPREHENSIVE METABOLIC [id number] 00:00:00 Test Item Value Reference Range Interpretation Comments GLUCOSE (test code = 2217) 209 MG/DL BUN (test code = 2208) 12 MG/DL CREATININE (test code = 2214) 0.73 MG/DL eGFR (2020 CKD-EPI) (test 106 ML/MIN/1.73 code = 07263) CALC BUN/CREAT (test code = 16 RATIO 2235) SODIUM (test code = 2231) 139 MEQ/L POTASSIUM (test code = 2228) 4.2 MEQ/L CHLORIDE (test code = 2215) 101 MEQ/L CARBON DIOXIDE (test code = 24 MEQ/L 220) CALCIUM (test code = 2209) 8.7 MG/DL PROTEIN, TOTAL (test code = 6.8 G/DL 222) ALBUMIN (test code = 2201) 4.0 G/DL CALC GLOBULIN (test code = 2.8 G/DL 2240) CALC A/G RATIO (test code = 1.4 RATIO 2234) BILIRUBIN, TOTAL (test code = 0.2 MG/DL 2206) ALKALINE PHOSPHATASE (test 144 U/L code = 2204) AST (test code = 2218) 22 U/L ALT (test code = 2219) 32 U/L COMPREHENSIVE METABOLIC [id number] 00:00:00 Test Item Value Reference Range Interpretation Comments GLUCOSE (test code = 2217) 209 MG/DL BUN (test code = 2208) 12 MG/DL CREATININE (test code = 2214) 0.73 MG/DL eGFR (2020 CKD-EPI) (test 106 ML/MIN/1.73 code = 39500) CALC BUN/CREAT (test code = 16 RATIO [...] BILIRUBIN, TOTAL (test code = 0.2 MG/DL 2207) ALKALINE PHOSPHATASE (test 144 U/L code = 2204) AST (test code = 2218) 22 U/L ALT (test code = 2219) 32 U/L LIPID [id number] 00:00:00 Test Item Value Reference Range Interpretation Comments CHOLESTEROL (test code = 2210) 184 MG/DL TRIGLYCERIDES (test code = 2232) 196 MG/DL HDL CHOLESTEROL (test code = 2220) 57 MG/DL CALC LDL CHOL (test code = 2237) 98 MG/DL RISK RATIO LDL/HDL (test code = 1.72 RATIO 2238) LIPID [id number] 00:00:00 Test Item Value Reference Range Interpretation Comments CHOLESTEROL (test code = 2210) 184 MG/DL TRIGLYCERIDES (test code = 2232) 196 MG/DL HDL CHOLESTEROL (test code = 2220) 57 MG/DL CALC LDL CHOL (test code = 2237) 98 MG/DL RISK RATIO LDL/HDL (test code = 1.72 RATIO 2238) HEMOGLOBIN [id number] 00:00:00 Test Item Value Reference Range Interpretation Comments HEMOGLOBIN A1c (test code = 80224) 11.7 % HEMOGLOBIN [id number] 00:00:00 Test Item Value Reference Range Interpretation Comments HEMOGLOBIN A1c (test code = 45572) 11.7 % HEMOGLOBIN [id number] 00:00:00 Test Item Value Reference Range Interpretation Comments HEMOGLOBIN A1c (test code = 98189) 11.7 % COMPREHENSIVE METABOLIC [id number] 00:00:00 Test Item Value Reference Range Interpretation Comments GLUCOSE (test code = 2217) 209 MG/DL BUN (test code = 2208) 12 MG/DL CREATININE (test code = 2214) 0.73 MG/DL eGFR (2020 CKD-EPI) (test 106 ML/MIN/1.73 code = 54741) CALC BUN/CREAT (test code = 16 RATIO [...] code = 2219) 32 U/L COMPREHENSIVE METABOLIC [id number] 00:00:00 Test Item Value Reference Range Interpretation Comments GLUCOSE (test code = 2217) 209 MG/DL BUN (test code = 2208) 12 MG/DL CREATININE (test code = 2214) 0.73 MG/DL eGFR (2020 CKD-EPI) (test 106 ML/MIN/1.73 code = 11159) CALC BUN/CREAT (test code = 16 RATIO [...] A/G RATIO (test code = 1.4 RATIO 2233) BILIRUBIN, TOTAL (test code = 0.2 MG/DL 2206) ALKALINE PHOSPHATASE (test 144 U/L code = 2204) AST (test code = 2218) 22 U/L ALT (test code = 2219) 32 U/L LIPID [id number] 00:00:00 Test Item Value Reference Range Interpretation Comments CHOLESTEROL (test code = 2210) 184 MG/DL TRIGLYCERIDES (test code = 2232) 196 MG/DL HDL CHOLESTEROL (test code = 2220) 57 MG/DL CALC LDL CHOL (test code = 2237) 98 MG/DL RISK RATIO LDL/HDL (test code = 1.72 RATIO 2238) LIPID [id number] 00:00:00 Test Item Value Reference Range Interpretation Comments CHOLESTEROL (test code = 2210) 184 MG/DL TRIGLYCERIDES (test code = 2232) 196 MG/DL HDL CHOLESTEROL (test code = 2220) 57 MG/DL CALC LDL CHOL (test code = 2237) 98 MG/DL RISK RATIO LDL/HDL (test code = 1.72 RATIO 2238) HEMOGLOBIN [id number] 00:00:00 Test Item Value Reference Range Interpretation Comments HEMOGLOBIN A1c (test code = 02417) 11.7 % HEMOGLOBIN [id number] 00:00:00 Test Item Value Reference Range Interpretation Comments HEMOGLOBIN A1c (test code = 99256) 11.7 % HEMOGLOBIN [id number] 00:00:00 Test Item Value Reference Range Interpretation Comments HEMOGLOBIN A1c (test code = 14356) 11.7 % COMPREHENSIVE METABOLIC [id number] 00:00:00 Test Item Value Reference Range Interpretation Comments GLUCOSE (test code = 2217) 209 MG/DL BUN (test code = 2208) 12 MG/DL CREATININE (test code = 2214) 0.73 MG/DL eGFR (2020 CKD-EPI) (test 106 ML/MIN/1.73 code = 28291) CALC BUN/CREAT (test code = 16 RATIO [...] code = 2219) 32 U/L COMPREHENSIVE METABOLIC [id number] 00:00:00 Test Item Value Reference Range Interpretation Comments GLUCOSE (test code = 2217) 209 MG/DL BUN (test code = 2208) 12 MG/DL CREATININE (test code = 2214) 0.73 MG/DL eGFR (2020 CKD-EPI) (test 106 ML/MIN/1.73 code = 72397) CALC BUN/CREAT (test code = 16 RATIO [...] (test code = 2219) 32 U/L LIPID [id number] 00:00:00 Test Item Value Reference Range Interpretation Comments CHOLESTEROL (test code = 2210) 184 MG/DL TRIGLYCERIDES (test code = 2232) 196 MG/DL HDL CHOLESTEROL (test code = 2220) 57 MG/DL CALC LDL CHOL (test code = 2237) 98 MG/DL RISK RATIO LDL/HDL (test code = 1.72 RATIO 2238) LIPID [id number] 00:00:00 Test Item Value Reference Range Interpretation Comments CHOLESTEROL (test code = 2210) 184 MG/DL TRIGLYCERIDES (test code = 2232) 196 MG/DL HDL CHOLESTEROL (test code = 2220) 57 MG/DL CALC LDL CHOL (test code = 2237) 98 MG/DL RISK RATIO LDL/HDL (test code = 1.72 RATIO 2238) HEMOGLOBIN [id number] 00:00:00 Test Item Value Reference Range Interpretation Comments HEMOGLOBIN A1c (test code = 12123) 11.7 % HEMOGLOBIN [id number] 00:00:00 Test Item Value Reference Range Interpretation Comments HEMOGLOBIN A1c (test code = 74375) 11.7 % HEMOGLOBIN [id number] 00:00:00 Test Item Value Reference Range Interpretation Comments HEMOGLOBIN A1c (test code = 52964) 11.7 % HEMOGLOBIN [id number] 00:00:00 Test Item Value Reference Range Interpretation Comments HEMOGLOBIN A1c (test code = 35775) 12.1 % HEMOGLOBIN [id number] 00:00:00 Test Item Value Reference Range Interpretation Comments HEMOGLOBIN A1c (test code = 91619) 12.1 % HEMOGLOBIN [id number] 00:00:00 Test Item Value Reference Range Interpretation Comments HEMOGLOBIN A1c (test code = 85491) 12.1 % HEMOGLOBIN [id number] 00:00:00 Test Item Value Reference Range Interpretation Comments HEMOGLOBIN A1c (test code = 38642) 12.1 % HEMOGLOBIN [id number] 00:00:00 Test Item Value Reference Range Interpretation Comments HEMOGLOBIN A1c (test code = 17525) 12.1 % HEMOGLOBIN [id number] 00:00:00 Test Item Value Reference Range Interpretation Comments HEMOGLOBIN A1c (test code = 39894) 12.1 % HEMOGLOBIN [id number] 00:00:00 Test Item Value Reference Range Interpretation Comments HEMOGLOBIN A1c (test code = 69262) 12.1 % HEMOGLOBIN [id number] 00:00:00 Test Item Value Reference Range Interpretation Comments HEMOGLOBIN A1c (test code = 73096) 12.1 % HEMOGLOBIN [id number] 00:00:00 Test Item Value Reference Range Interpretation Comments HEMOGLOBIN A1c (test code = 56606) 12.1 % HEMOGLOBIN [id number] 00:00:00 Test Item Value Reference Range Interpretation Comments HEMOGLOBIN A1c (test code = 17407) 12.1 % HEMOGLOBIN [id number] 00:00:00 Test Item Value Reference Range Interpretation Comments HEMOGLOBIN A1c (test code = 48302) 12.1 % HEMOGLOBIN [id number] 00:00:00 Test Item Value Reference Range Interpretation Comments HEMOGLOBIN A1c (test code = 07749) 12.1 % COMPREHENSIVE METABOLIC [id number] 00:00:00 Test Item Value Reference Range Interpretation Comments GLUCOSE (test code = 2217) 354 MG/DL BUN (test code = 2208) 18 MG/DL CREATININE (test code = 2214) 0.96 MG/DL eGFR AMER. (test code 101 ML/MIN/1.73 = 12791) eGFR NON- AMER. (test 87 ML/MIN/1.73 code = 89306) CALC BUN/CREAT (test code = 19 RATIO [...] code = 2219) 37 U/L CBC W/AUTO [id number] 00:00:00 Test Item Value Reference Range Interpretation [...] NUCLEATED RBCS (test code = 0.00 K/UL 48875) CBC W/AUTO [id number] 00:00:00 Test Item Value Reference Range Interpretation [...] NUCLEATED RBCS (test code = 0.00 K/UL 00224) CBC W/AUTO [id number] 00:00:00 Test Item Value Reference Range Interpretation [...] NUCLEATED RBCS (test code = 0.00 K/UL 48892) LIPID [id number] 00:00:00 Test Item Value Reference Range Interpretation Comments CHOLESTEROL (test code = 2210) 200 MG/DL TRIGLYCERIDES (test code = 2232) 151 MG/DL HDL CHOLESTEROL (test code = 2220) 44 MG/DL CALC LDL CHOL (test code = 2237) 130 MG/DL RISK RATIO LDL/HDL (test code = 2.95 RATIO 2238) LIPID [id number] 00:00:00 Test Item Value Reference Range Interpretation Comments CHOLESTEROL (test code = 2210) 200 MG/DL TRIGLYCERIDES (test code = 2232) 151 MG/DL HDL CHOLESTEROL (test code = 2220) 44 MG/DL CALC LDL CHOL (test code = 2237) 130 MG/DL RISK RATIO LDL/HDL (test code = 2.95 RATIO 2238) COMPREHENSIVE METABOLIC [id number] 00:00:00 Test Item Value Reference Range Interpretation Comments GLUCOSE (test code = 2217) 354 MG/DL BUN (test code = 2208) 18 MG/DL CREATININE (test code = 2214) 0.96 MG/DL eGFR AMER. (test code 101 ML/MIN/1.73 = 81960) eGFR NON- AMER. (test 87 ML/MIN/1.73 code = 33828) CALC BUN/CREAT (test code = 19 RATIO [...] code = 2219) 37 U/L COMPREHENSIVE METABOLIC [id number] 00:00:00 Test Item Value Reference Range Interpretation Comments GLUCOSE (test code = 2217) 354 MG/DL BUN (test code = 2208) 18 MG/DL CREATININE (test code = 2214) 0.96 MG/DL eGFR AMER. (test code 101 ML/MIN/1.73 = 24888) eGFR NON- AMER. (test 87 ML/MIN/1.73 code = 14554) CALC BUN/CREAT (test code = 19 RATIO [...] code = 2219) 37 U/L CBC W/AUTO [id number] 00:00:00 Test Item Value Reference Range Interpretation [...] NUCLEATED RBCS (test code = 0.00 K/UL 42306) CBC W/AUTO [id number] 00:00:00 Test Item Value Reference Range Interpretation [...] NUCLEATED RBCS (test code = 0.00 K/UL 46723) CBC W/AUTO [id number] 00:00:00 Test Item Value Reference Range Interpretation [...] NUCLEATED RBCS (test code = 0.00 K/UL 95166) LIPID [id number] 00:00:00 Test Item Value Reference Range Interpretation Comments CHOLESTEROL (test code = 2210) 200 MG/DL TRIGLYCERIDES (test code = 2232) 151 MG/DL HDL CHOLESTEROL (test code = 2220) 44 MG/DL CALC LDL CHOL (test code = 2237) 130 MG/DL RISK RATIO LDL/HDL (test code = 2.95 RATIO 2238) LIPID [id number] 00:00:00 Test Item Value Reference Range Interpretation Comments CHOLESTEROL (test code = 2210) 200 MG/DL TRIGLYCERIDES (test code = 2232) 151 MG/DL HDL CHOLESTEROL (test code = 2220) 44 MG/DL CALC LDL CHOL (test code = 2237) 130 MG/DL RISK RATIO LDL/HDL (test code = 2.95 RATIO 2238) COMPREHENSIVE METABOLIC [id number] 00:00:00 Test Item Value Reference Range Interpretation Comments GLUCOSE (test code = 2217) 354 MG/DL BUN (test code = 2208) 18 MG/DL CREATININE (test code = 2214) 0.96 MG/DL eGFR AMER. (test code 101 ML/MIN/1.73 = 43612) eGFR NON- AMER. (test 87 ML/MIN/1.73 code = 49760) CALC BUN/CREAT (test code = 19 RATIO [...] code = 2219) 37 U/L COMPREHENSIVE METABOLIC [id number] 00:00:00 Test Item Value Reference Range Interpretation Comments GLUCOSE (test code = 2217) 354 MG/DL BUN (test code = 2208) 18 MG/DL CREATININE (test code = 2214) 0.96 MG/DL eGFR AMER. (test code 101 ML/MIN/1.73 = 17347) eGFR NON- AMER. (test 87 ML/MIN/1.73 code = 24489) CALC BUN/CREAT (test code = 19 RATIO 2235) SODIUM (test code = 2231) 139 MEQ/L POTASSIUM (test code = 2228) 4.2 MEQ/L CHLORIDE (test code = 2215) 103 MEQ/L CARBON DIOXIDE (test code = 26 MEQ/L 2206) CALCIUM (test code = 2209) 9.1 MG/DL PROTEIN, TOTAL (test code = 7.5 G/DL 2229) ALBUMIN (test code = 2201) 4.2 G/DL CALC GLOBULIN (test code = 3.3 G/DL 2240) CALC A/G RATIO (test code = 1.3 RATIO 2234) BILIRUBIN, TOTAL (test code = 0.4 MG/DL 2207) ALKALINE PHOSPHATASE (test 179 U/L code = 2204) AST (test code = 2218) 21 U/L ALT (test code = 2219) 37 U/L CBC W/AUTO [id number] 00:00:00 Test Item Value Reference Range Interpretation [...] NUCLEATED RBCS (test code = 0.00 K/UL 00844) CBC W/AUTO [id number] 00:00:00 Test Item Value Reference Range Interpretation [...] NUCLEATED RBCS (test code = 0.00 K/UL 27478) CBC W/AUTO [id number] 00:00:00 Test Item Value Reference Range Interpretation [...] NUCLEATED RBCS (test code = 0.00 K/UL 13178) LIPID [id number] 00:00:00 Test Item Value Reference Range Interpretation Comments CHOLESTEROL (test code = 2210) 200 MG/DL TRIGLYCERIDES (test code = 2232) 151 MG/DL HDL CHOLESTEROL (test code = 2220) 44 MG/DL CALC LDL CHOL (test code = 2237) 130 MG/DL RISK RATIO LDL/HDL (test code = 2.95 RATIO 2238) LIPID [id number] 00:00:00 Test Item Value Reference Range Interpretation Comments CHOLESTEROL (test code = 2210) 200 MG/DL TRIGLYCERIDES (test code = 2232) 151 MG/DL HDL CHOLESTEROL (test code = 2220) 44 MG/DL CALC LDL CHOL (test code = 2237) 130 MG/DL RISK RATIO LDL/HDL (test code = 2.95 RATIO 2238) COMPREHENSIVE METABOLIC [id number] 00:00:00 Test Item Value Reference Range Interpretation Comments GLUCOSE (test code = 2217) 354 MG/DL BUN (test code = 2208) 18 MG/DL CREATININE (test code = 2214) 0.96 MG/DL eGFR AMER. (test code 101 ML/MIN/1.73 = 66122) eGFR NON- AMER. (test 87 ML/MIN/1.73 code = 20886) CALC BUN/CREAT (test code = 19 RATIO 2235) SODIUM (test code = 2231) 139 MEQ/L POTASSIUM (test code = 2228) 4.2 MEQ/L CHLORIDE (test code = 2215) 103 MEQ/L CARBON DIOXIDE (test code = 26 MEQ/L 2205) CALCIUM (test code = 2209) 9.1 MG/DL PROTEIN, TOTAL (test code = 7.5 G/DL 2229) ALBUMIN (test code = 2201) 4.2 G/DL CALC GLOBULIN (test code = 3.3 G/DL 2240) CALC A/G RATIO (test code = 1.3 RATIO 2234) BILIRUBIN, TOTAL (test code = 0.4 MG/DL 220) ALKALINE PHOSPHATASE (test 179 U/L code = 2204) AST (test code = 2218) 21 U/L ALT (test code = 2219) 37 U/L COMPREHENSIVE METABOLIC [id number] 00:00:00 Test Item Value Reference Range Interpretation Comments GLUCOSE (test code = 2217) 354 MG/DL BUN (test code = 2208) 18 MG/DL CREATININE (test code = 2214) 0.96 MG/DL eGFR AMER. (test code 101 ML/MIN/1.73 = 79603) eGFR NON- AMER. (test 87 ML/MIN/1.73 code = 92432) CALC BUN/CREAT (test code = 19 RATIO [...] code = 2219) 37 U/L CBC W/AUTO [id number] 00:00:00 Test Item Value Reference Range Interpretation [...] NUCLEATED RBCS (test code = 0.00 K/UL 98472) CBC W/AUTO [id number] 00:00:00 Test Item Value Reference Range Interpretation [...] NUCLEATED RBCS (test code = 0.00 K/UL 47025) CBC W/AUTO [id number] 00:00:00 Test Item Value Reference Range Interpretation [...] NUCLEATED RBCS (test code = 0.00 K/UL 58816) LIPID [id number] 00:00:00 Test Item Value Reference Range Interpretation Comments CHOLESTEROL (test code = 2210) 200 MG/DL TRIGLYCERIDES (test code = 2232) 151 MG/DL HDL CHOLESTEROL (test code = 2220) 44 MG/DL CALC LDL CHOL (test code = 2237) 130 MG/DL RISK RATIO LDL/HDL (test code = 2.95 RATIO 2238) LIPID [id number] 00:00:00 Test Item Value Reference Range Interpretation Comments CHOLESTEROL (test code = 2210) 200 MG/DL TRIGLYCERIDES (test code = 2232) 151 MG/DL HDL CHOLESTEROL (test code = 2220) 44 MG/DL CALC LDL CHOL (test code = 2237) 130 MG/DL RISK RATIO LDL/HDL (test code = 2.95 RATIO 2238) COMPREHENSIVE METABOLIC [id number] 00:00:00 Test Item Value Reference Range Interpretation Comments GLUCOSE (test code = 2217) 354 MG/DL BUN (test code = 2208) 18 MG/DL CREATININE (test code = 2214) 0.96 MG/DL eGFR AMER. (test code 101 ML/MIN/1.73 = 15685) eGFR NON- AMER. (test 87 ML/MIN/1.73 code = 75362) CALC BUN/CREAT (test code = 19 RATIO 2235) SODIUM (test code = 2231) 139 MEQ/L POTASSIUM (test code = 2228) 4.2 MEQ/L CHLORIDE (test code = 2215) 103 MEQ/L CARBON DIOXIDE (test code = 26 MEQ/L 6) CALCIUM (test code = 2209) 9.1 MG/DL PROTEIN, TOTAL (test code = 7.5 G/DL 222) ALBUMIN (test code = 2201) 4.2 G/DL CALC GLOBULIN (test code = 3.3 G/DL 2240) CALC A/G RATIO (test code = 1.3 RATIO 2234) BILIRUBIN, TOTAL (test code = 0.4 MG/DL 2207) ALKALINE PHOSPHATASE (test 179 U/L code = 2204) AST (test code = 2218) 21 U/L ALT (test code = 2219) 37 U/L COMPREHENSIVE METABOLIC [id number] 00:00:00 Test Item Value Reference Range Interpretation Comments GLUCOSE (test code = 2217) 338 MG/DL BUN (test code = 2208) 25 MG/DL CREATININE (test code = 2214) 1.00 MG/DL eGFR AMER. (test code 96 ML/MIN/1.73 = 77804) eGFR NON- AMER. (test 83 ML/MIN/1.73 code = 57846) CALC BUN/CREAT (test code = 25 RATIO 2235) SODIUM (test code = 2231) 139 MEQ/L POTASSIUM (test code = 2228) 4.3 MEQ/L CHLORIDE (test code = 2215) 100 MEQ/L CARBON DIOXIDE (test code = 25 MEQ/L 220) CALCIUM (test code = 2209) 9.1 MG/DL PROTEIN, TOTAL (test code = 6.9 G/DL 222) ALBUMIN (test code = 2201) 4.0 G/DL CALC GLOBULIN (test code = 2.9 G/DL 2240) CALC A/G RATIO (test code = 1.4 RATIO 2234) BILIRUBIN, TOTAL (test code = 0.3 MG/DL 2206) ALKALINE PHOSPHATASE (test 233 U/L code = 2204) AST (test code = 2218) 14 U/L ALT (test code = 2219) 22 U/L COMPREHENSIVE METABOLIC [id number] 00:00:00 Test Item Value Reference Range Interpretation Comments GLUCOSE (test code = 2217) 338 MG/DL BUN (test code = 2208) 25 MG/DL CREATININE (test code = 2214) 1.00 MG/DL eGFR AMER. (test code 96 ML/MIN/1.73 = 87336) eGFR NON- AMER. (test 83 ML/MIN/1.73 code = 34208) CALC BUN/CREAT (test code = 25 RATIO [...] (test code = 2219) 22 U/L LIPID [id number] 00:00:00 Test Item Value Reference Range Interpretation Comments CHOLESTEROL (test code = 2210) 152 MG/DL TRIGLYCERIDES (test code = 2232) 153 MG/DL HDL CHOLESTEROL (test code = 2220) 48 MG/DL CALC LDL CHOL (test code = 2237) 79 MG/DL RISK RATIO LDL/HDL (test code = 1.65 RATIO 2238) LIPID [id number] 00:00:00 Test Item Value Reference Range Interpretation Comments CHOLESTEROL (test code = 2210) 152 MG/DL TRIGLYCERIDES (test code = 2232) 153 MG/DL HDL CHOLESTEROL (test code = 2220) 48 MG/DL CALC LDL CHOL (test code = 2237) 79 MG/DL RISK RATIO LDL/HDL (test code = 1.65 RATIO 2238) HEMOGLOBIN [id number] 00:00:00 Test Item Value Reference Range Interpretation Comments HEMOGLOBIN A1c (test code = 64233) 10.1 % HEMOGLOBIN [id number] 00:00:00 Test Item Value Reference Range Interpretation Comments HEMOGLOBIN A1c (test code = 69028) 10.1 % HEMOGLOBIN [id number] 00:00:00 Test Item Value Reference Range Interpretation Comments HEMOGLOBIN A1c (test code = 20661) 10.1 % COMPREHENSIVE METABOLIC [id number] 00:00:00 Test Item Value Reference Range Interpretation Comments GLUCOSE (test code = 2217) 338 MG/DL BUN (test code = 2208) 25 MG/DL CREATININE (test code = 2214) 1.00 MG/DL eGFR AMER. (test code 96 ML/MIN/1.73 = 90411) eGFR NON- AMER. (test 83 ML/MIN/1.73 code = 69931) CALC BUN/CREAT (test code = 25 RATIO [...] A/G RATIO (test code = 1.4 RATIO 2233) BILIRUBIN, TOTAL (test code = 0.3 MG/DL 2206) ALKALINE PHOSPHATASE (test 233 U/L code = 2204) AST (test code = 2218) 14 U/L ALT (test code = 2219) 22 U/L COMPREHENSIVE METABOLIC [id number] 00:00:00 Test Item Value Reference Range Interpretation Comments GLUCOSE (test code = 2217) 338 MG/DL BUN (test code = 2208) 25 MG/DL CREATININE (test code = 2214) 1.00 MG/DL eGFR AMER. (test code 96 ML/MIN/1.73 = 26604) eGFR NON- AMER. (test 83 ML/MIN/1.73 code = 26482) CALC BUN/CREAT (test code = 25 RATIO [...] (test code = 2219) 22 U/L LIPID [id number] 00:00:00 Test Item Value Reference Range Interpretation Comments CHOLESTEROL (test code = 2210) 152 MG/DL TRIGLYCERIDES (test code = 2232) 153 MG/DL HDL CHOLESTEROL (test code = 2220) 48 MG/DL CALC LDL CHOL (test code = 2237) 79 MG/DL RISK RATIO LDL/HDL (test code = 1.65 RATIO 2238) LIPID [id number] 00:00:00 Test Item Value Reference Range Interpretation Comments CHOLESTEROL (test code = 2210) 152 MG/DL TRIGLYCERIDES (test code = 2232) 153 MG/DL HDL CHOLESTEROL (test code = 2220) 48 MG/DL CALC LDL CHOL (test code = 2237) 79 MG/DL RISK RATIO LDL/HDL (test code = 1.65 RATIO 2238) HEMOGLOBIN [id number] 00:00:00 Test Item Value Reference Range Interpretation Comments HEMOGLOBIN A1c (test code = 29282) 10.1 % HEMOGLOBIN [id number] 00:00:00 Test Item Value Reference Range Interpretation Comments HEMOGLOBIN A1c (test code = 57722) 10.1 % HEMOGLOBIN [id number] 00:00:00 Test Item Value Reference Range Interpretation Comments HEMOGLOBIN A1c (test code = 80623) 10.1 % COMPREHENSIVE METABOLIC [id number] 00:00:00 Test Item Value Reference Range Interpretation Comments GLUCOSE (test code = 2217) 338 MG/DL BUN (test code = 2208) 25 MG/DL CREATININE (test code = 2214) 1.00 MG/DL eGFR AMER. (test code 96 ML/MIN/1.73 = 04236) eGFR NON- AMER. (test 83 ML/MIN/1.73 code = 25643) CALC BUN/CREAT (test code = 25 RATIO [...] code = 2219) 22 U/L COMPREHENSIVE METABOLIC [id number] 00:00:00 Test Item Value Reference Range Interpretation Comments GLUCOSE (test code = 2217) 338 MG/DL BUN (test code = 2208) 25 MG/DL CREATININE (test code = 2214) 1.00 MG/DL eGFR AMER. (test code 96 ML/MIN/1.73 = 13024) eGFR NON- AMER. (test 83 ML/MIN/1.73 code = 93910) CALC BUN/CREAT (test code = 25 RATIO [...] (test code = 2219) 22 U/L LIPID [id number] 00:00:00 Test Item Value Reference Range Interpretation Comments CHOLESTEROL (test code = 2210) 152 MG/DL TRIGLYCERIDES (test code = 2232) 153 MG/DL HDL CHOLESTEROL (test code = 2220) 48 MG/DL CALC LDL CHOL (test code = 2237) 79 MG/DL RISK RATIO LDL/HDL (test code = 1.65 RATIO 2238) LIPID [id number] 00:00:00 Test Item Value Reference Range Interpretation Comments CHOLESTEROL (test code = 2210) 152 MG/DL TRIGLYCERIDES (test code = 2232) 153 MG/DL HDL CHOLESTEROL (test code = 2220) 48 MG/DL CALC LDL CHOL (test code = 2237) 79 MG/DL RISK RATIO LDL/HDL (test code = 1.65 RATIO 2238) HEMOGLOBIN [id number] 00:00:00 Test Item Value Reference Range Interpretation Comments HEMOGLOBIN A1c (test code = 63717) 10.1 % HEMOGLOBIN [id number] 00:00:00 Test Item Value Reference Range Interpretation Comments HEMOGLOBIN A1c (test code = 65854) 10.1 % HEMOGLOBIN [id number] 00:00:00 Test Item Value Reference Range Interpretation Comments HEMOGLOBIN A1c (test code = 43010) 10.1 % COMPREHENSIVE METABOLIC [id number] 00:00:00 Test Item Value Reference Range Interpretation Comments GLUCOSE (test code = 2217) 338 MG/DL BUN (test code = 2208) 25 MG/DL CREATININE (test code = 2214) 1.00 MG/DL eGFR AMER. (test code 96 ML/MIN/1.73 = 65995) eGFR NON- AMER. (test 83 ML/MIN/1.73 code = 28666) CALC BUN/CREAT (test code = 25 RATIO 2235) SODIUM (test code = 2231) 139 MEQ/L POTASSIUM (test code = 2228) 4.3 MEQ/L CHLORIDE (test code = 2215) 100 MEQ/L CARBON DIOXIDE (test code = 25 MEQ/L 2206) CALCIUM (test code = 2209) 9.1 MG/DL PROTEIN, TOTAL (test code = 6.9 G/DL 222) ALBUMIN (test code = 2201) 4.0 G/DL CALC GLOBULIN (test code = 2.9 G/DL 2240) CALC A/G RATIO (test code = 1.4 RATIO 2234) BILIRUBIN, TOTAL (test code = 0.3 MG/DL 220) ALKALINE PHOSPHATASE (test 233 U/L code = 2204) AST (test code = 2218) 14 U/L ALT (test code = 2219) 22 U/L COMPREHENSIVE METABOLIC [id number] 00:00:00 Test Item Value Reference Range Interpretation Comments GLUCOSE (test code = 2217) 338 MG/DL BUN (test code = 2208) 25 MG/DL CREATININE (test code = 2214) 1.00 MG/DL eGFR AMER. (test code 96 ML/MIN/1.73 = 54671) eGFR NON- AMER. (test 83 ML/MIN/1.73 code = 26867) CALC BUN/CREAT (test code = 25 RATIO [...] (test code = 2219) 22 U/L LIPID [id number] 00:00:00 Test Item Value Reference Range Interpretation Comments CHOLESTEROL (test code = 2210) 152 MG/DL TRIGLYCERIDES (test code = 2232) 153 MG/DL HDL CHOLESTEROL (test code = 2220) 48 MG/DL CALC LDL CHOL (test code = 2237) 79 MG/DL RISK RATIO LDL/HDL (test code = 1.65 RATIO 2238) LIPID [id number] 00:00:00 Test Item Value Reference Range Interpretation Comments CHOLESTEROL (test code = 2210) 152 MG/DL TRIGLYCERIDES (test code = 2232) 153 MG/DL HDL CHOLESTEROL (test code = 2220) 48 MG/DL CALC LDL CHOL (test code = 2237) 79 MG/DL RISK RATIO LDL/HDL (test code = 1.65 RATIO 2238) HEMOGLOBIN [id number] 00:00:00 Test Item Value Reference Range Interpretation Comments HEMOGLOBIN A1c (test code = 35248) 10.1 % HEMOGLOBIN [id number] 00:00:00 Test Item Value Reference Range Interpretation Comments HEMOGLOBIN A1c (test code = 13050) 10.1 % HEMOGLOBIN [id number] 00:00:00 Test Item Value Reference Range Interpretation Comments HEMOGLOBIN A1c (test code = 21110) 10.1 % COMPREHENSIVE METABOLIC [id number] 00:00:00 Test Item Value Reference Range Interpretation Comments GLUCOSE (test code = 7) 177 MG/DL BUN (test code = 2208) 11 MG/DL CREATININE (test code = 2214) 0.67 MG/DL eGFR AMER. (test code 124 ML/MIN/1.73 = 88375) eGFR NON- AMER. (test 107 ML/MIN/1.73 code = 61289) CALC BUN/CREAT (test code = 16 RATIO 2235) SODIUM (test code = 2231) 138 MEQ/L POTASSIUM (test code = 2228) 3.9 MEQ/L CHLORIDE (test code = 2215) 99 MEQ/L CARBON DIOXIDE (test code = 26 MEQ/L 2205) CALCIUM (test code = 2209) 9.5 MG/DL PROTEIN, TOTAL (test code = 7.3 G/DL 222) ALBUMIN (test code = 2201) 4.4 G/DL CALC GLOBULIN (test code = 2.9 G/DL 2240) CALC A/G RATIO (test code = 1.5 RATIO 2234) BILIRUBIN, TOTAL (test code = 0.5 MG/DL 220) ALKALINE PHOSPHATASE (test 108 U/L code = 2204) AST (test code = 2218) 24 U/L ALT (test code = 2219) 27 U/L COMPREHENSIVE METABOLIC [id number] 00:00:00 Test Item Value Reference Range Interpretation Comments GLUCOSE (test code = 2217) 177 MG/DL BUN (test code = 2208) 11 MG/DL CREATININE (test code = 2214) 0.67 MG/DL eGFR AMER. (test code 124 ML/MIN/1.73 = 97854) eGFR NON- AMER. (test 107 ML/MIN/1.73 code = 10743) CALC BUN/CREAT (test code = 16 RATIO [...] (test code = 2219) 27 U/L LIPID [id number] 00:00:00 Test Item Value Reference Range Interpretation Comments CHOLESTEROL (test code = 2210) 127 MG/DL TRIGLYCERIDES (test code = 2232) 99 MG/DL HDL CHOLESTEROL (test code = 2220) 43 MG/DL CALC LDL CHOL (test code = 2237) 66 MG/DL RISK RATIO LDL/HDL (test code = 1.53 RATIO 2238) LIPID [id number] 00:00:00 Test Item Value Reference Range Interpretation Comments CHOLESTEROL (test code = 2210) 127 MG/DL TRIGLYCERIDES (test code = 2232) 99 MG/DL HDL CHOLESTEROL (test code = 2220) 43 MG/DL CALC LDL CHOL (test code = 2237) 66 MG/DL RISK RATIO LDL/HDL (test code = 1.53 RATIO 2238) COMPREHENSIVE METABOLIC [id number] 00:00:00 Test Item Value Reference Range Interpretation Comments GLUCOSE (test code = 2217) 177 MG/DL BUN (test code = 2208) 11 MG/DL CREATININE (test code = 2214) 0.67 MG/DL eGFR AMER. (test code 124 ML/MIN/1.73 = 24382) eGFR NON- AMER. (test 107 ML/MIN/1.73 code = 64222) CALC BUN/CREAT (test code = 16 RATIO 2235) SODIUM (test code = 2231) 138 MEQ/L POTASSIUM (test code = 2228) 3.9 MEQ/L CHLORIDE (test code = 2215) 99 MEQ/L CARBON DIOXIDE (test code = 26 MEQ/L 6) CALCIUM (test code = 2209) 9.5 MG/DL PROTEIN, TOTAL (test code = 7.3 G/DL 2229) ALBUMIN (test code = 2201) 4.4 G/DL CALC GLOBULIN (test code = 2.9 G/DL 2240) CALC A/G RATIO (test code = 1.5 RATIO 2234) BILIRUBIN, TOTAL (test code = 0.5 MG/DL 2207) ALKALINE PHOSPHATASE (test 108 U/L code = 2204) AST (test code = 2218) 24 U/L ALT (test code = 2219) 27 U/L COMPREHENSIVE METABOLIC [id number] 00:00:00 Test Item Value Reference Range Interpretation Comments GLUCOSE (test code = 2217) 177 MG/DL BUN (test code = 2208) 11 MG/DL CREATININE (test code = 2214) 0.67 MG/DL eGFR AMER. (test code 124 ML/MIN/1.73 = 74020) eGFR NON- AMER. (test 107 ML/MIN/1.73 code = 26510) CALC BUN/CREAT (test code = 16 RATIO [...] (test code = 2219) 27 U/L LIPID [id number] 00:00:00 Test Item Value Reference Range Interpretation Comments CHOLESTEROL (test code = 2210) 127 MG/DL TRIGLYCERIDES (test code = 2232) 99 MG/DL HDL CHOLESTEROL (test code = 2220) 43 MG/DL CALC LDL CHOL (test code = 2237) 66 MG/DL RISK RATIO LDL/HDL (test code = 1.53 RATIO 2238) LIPID [id number] 00:00:00 Test Item Value Reference Range Interpretation Comments CHOLESTEROL (test code = 2210) 127 MG/DL TRIGLYCERIDES (test code = 2232) 99 MG/DL HDL CHOLESTEROL (test code = 2220) 43 MG/DL CALC LDL CHOL (test code = 2237) 66 MG/DL RISK RATIO LDL/HDL (test code = 1.53 RATIO 2238) COMPREHENSIVE METABOLIC [id number] 00:00:00 Test Item Value Reference Range Interpretation Comments GLUCOSE (test code = 2217) 177 MG/DL BUN (test code = 2208) 11 MG/DL CREATININE (test code = 2214) 0.67 MG/DL eGFR AMER. (test code 124 ML/MIN/1.73 = 55164) eGFR NON- AMER. (test 107 ML/MIN/1.73 code = 96042) CALC BUN/CREAT (test code = 16 RATIO [...] BILIRUBIN, TOTAL (test code = 0.5 MG/DL 220) ALKALINE PHOSPHATASE (test 108 U/L code = 2204) AST (test code = 2218) 24 U/L ALT (test code = 2219) 27 U/L COMPREHENSIVE METABOLIC [id number] 00:00:00 Test Item Value Reference Range Interpretation Comments GLUCOSE (test code = 2217) 177 MG/DL BUN (test code = 2208) 11 MG/DL CREATININE (test code = 2214) 0.67 MG/DL eGFR AMER. (test code 124 ML/MIN/1.73 = 62479) eGFR NON- AMER. (test 107 ML/MIN/1.73 code = 55204) CALC BUN/CREAT (test code = 16 RATIO [...] BILIRUBIN, TOTAL (test code = 0.5 MG/DL 7) ALKALINE PHOSPHATASE (test 108 U/L code = 2204) AST (test code = 2218) 24 U/L ALT (test code = 2219) 27 U/L LIPID [id number] 00:00:00 Test Item Value Reference Range Interpretation Comments CHOLESTEROL (test code = 2210) 127 MG/DL TRIGLYCERIDES (test code = 2232) 99 MG/DL HDL CHOLESTEROL (test code = 2220) 43 MG/DL CALC LDL CHOL (test code = 2237) 66 MG/DL RISK RATIO LDL/HDL (test code = 1.53 RATIO 2238) LIPID [id number] 00:00:00 Test Item Value Reference Range Interpretation Comments CHOLESTEROL (test code = 2210) 127 MG/DL TRIGLYCERIDES (test code = 2232) 99 MG/DL HDL CHOLESTEROL (test code = 2220) 43 MG/DL CALC LDL CHOL (test code = 2237) 66 MG/DL RISK RATIO LDL/HDL (test code = 1.53 RATIO 2238) COMPREHENSIVE METABOLIC [id number] 00:00:00 Test Item Value Reference Range Interpretation Comments GLUCOSE (test code = 2217) 177 MG/DL BUN (test code = 2208) 11 MG/DL CREATININE (test code = 2214) 0.67 MG/DL eGFR AMER. (test code 124 ML/MIN/1.73 = 95511) eGFR NON- AMER. (test 107 ML/MIN/1.73 code = 06858) CALC BUN/CREAT (test code = 16 RATIO [...] code = 2219) 27 U/L COMPREHENSIVE METABOLIC [id number] 00:00:00 Test Item Value Reference Range Interpretation Comments GLUCOSE (test code = 2217) 177 MG/DL BUN (test code = 2208) 11 MG/DL CREATININE (test code = 2214) 0.67 MG/DL eGFR AMER. (test code 124 ML/MIN/1.73 = 69911) eGFR NON- AMER. (test 107 ML/MIN/1.73 code = 11066) CALC BUN/CREAT (test code = 16 RATIO [...] (test code = 2219) 27 U/L LIPID [id number] 00:00:00 Test Item Value Reference Range Interpretation Comments CHOLESTEROL (test code = 2210) 127 MG/DL TRIGLYCERIDES (test code = 2232) 99 MG/DL HDL CHOLESTEROL (test code = 2220) 43 MG/DL CALC LDL CHOL (test code = 2237) 66 MG/DL RISK RATIO LDL/HDL (test code = 1.53 RATIO 2238) LIPID [id number] 00:00:00 Test Item Value Reference Range Interpretation Comments CHOLESTEROL (test code = 2210) 127 MG/DL TRIGLYCERIDES (test code = 2232) 99 MG/DL HDL CHOLESTEROL (test code = 2220) 43 MG/DL CALC LDL CHOL (test code = 2237) 66 MG/DL RISK RATIO LDL/HDL (test code = 1.53 RATIO 2238) COMPREHENSIVE METABOLIC [id number] 00:00:00 Test Item Value Reference Range Interpretation Comments GLUCOSE (test code = 2217) 161 MG/DL BUN (test code = 2208) 8 MG/DL CREATININE (test code = 2214) 0.85 MG/DL eGFR AMER. (test code 113 ML/MIN/1.73 = 43799) eGFR NON- AMER. (test 97 ML/MIN/1.73 code = 77986) CALC BUN/CREAT (test code = 9 RATIO [...] code = 2219) 16 U/L COMPREHENSIVE METABOLIC [id number] 00:00:00 Test Item Value Reference Range Interpretation Comments GLUCOSE (test code = 2217) 161 MG/DL BUN (test code = 2208) 8 MG/DL CREATININE (test code = 2214) 0.85 MG/DL eGFR AMER. (test code 113 ML/MIN/1.73 = 13304) eGFR NON- AMER. (test 97 ML/MIN/1.73 code = 02163) CALC BUN/CREAT (test code = 9 RATIO 2235) SODIUM (test code = 2231) 141 MEQ/L POTASSIUM (test code = 2228) 3.7 MEQ/L CHLORIDE (test code = 2215) 103 MEQ/L CARBON DIOXIDE (test code = 27 MEQ/L 6) CALCIUM (test code = 2209) 9.2 MG/DL [...] code = 2219) 16 U/L COMPREHENSIVE METABOLIC [id number] 00:00:00 Test Item Value Reference Range Interpretation Comments GLUCOSE (test code = 2217) 161 MG/DL BUN (test code = 2208) 8 MG/DL CREATININE (test code = 2214) 0.85 MG/DL eGFR AMER. (test code 113 ML/MIN/1.73 = 87246) eGFR NON- AMER. (test 97 ML/MIN/1.73 code = 23153) CALC BUN/CREAT (test code = 9 RATIO [...] code = 2219) 16 U/L COMPREHENSIVE METABOLIC [id number] 00:00:00 Test Item Value Reference Range Interpretation Comments GLUCOSE (test code = 2217) 161 MG/DL BUN (test code = 2208) 8 MG/DL CREATININE (test code = 2214) 0.85 MG/DL eGFR AMER. (test code 113 ML/MIN/1.73 = 75344) eGFR NON- AMER. (test 97 ML/MIN/1.73 code = 83985) CALC BUN/CREAT (test code = 9 RATIO [...] BILIRUBIN, TOTAL (test code = 0.4 MG/DL 7) ALKALINE PHOSPHATASE (test 101 U/L code = 2204) AST (test code = 2218) 17 U/L ALT (test code = 2219) 16 U/L COMPREHENSIVE METABOLIC [id number] 00:00:00 Test Item Value Reference Range Interpretation Comments GLUCOSE (test code = 2217) 161 MG/DL BUN (test code = 2208) 8 MG/DL CREATININE (test code = 2214) 0.85 MG/DL eGFR AMER. (test code 113 ML/MIN/1.73 = 20587) eGFR NON- AMER. (test 97 ML/MIN/1.73 code = 74900) CALC BUN/CREAT (test code = 9 RATIO [...] code = 2219) 16 U/L COMPREHENSIVE METABOLIC [id number] 00:00:00 Test Item Value Reference Range Interpretation Comments GLUCOSE (test code = 2217) 161 MG/DL BUN (test code = 2208) 8 MG/DL CREATININE (test code = 2214) 0.85 MG/DL eGFR AMER. (test code 113 ML/MIN/1.73 = 71327) eGFR NON- AMER. (test 97 ML/MIN/1.73 code = 15041) CALC BUN/CREAT (test code = 9 RATIO [...] code = 2219) 16 U/L COMPREHENSIVE METABOLIC [id number] 00:00:00 Test Item Value Reference Range Interpretation Comments GLUCOSE (test code = 2217) 161 MG/DL BUN (test code = 2208) 8 MG/DL CREATININE (test code = 2214) 0.85 MG/DL eGFR AMER. (test code 113 ML/MIN/1.73 = 34257) eGFR NON- AMER. (test 97 ML/MIN/1.73 code = 72080) CALC BUN/CREAT (test code = 9 RATIO [...] code = 2219) 16 U/L COMPREHENSIVE METABOLIC [id number] 00:00:00 Test Item Value Reference Range Interpretation Comments GLUCOSE (test code = 2217) 161 MG/DL BUN (test code = 2208) 8 MG/DL CREATININE (test code = 2214) 0.85 MG/DL eGFR AMER. (test code 113 ML/MIN/1.73 = 37325) eGFR NON- AMER. (test 97 ML/MIN/1.73 code = 90515) CALC BUN/CREAT (test code = 9 RATIO [...] (test code = 2219) 16 U/L LIPID [id number] 00:00:00 Test Item Value Reference Range Interpretation Comments CHOLESTEROL (test code = 2210) 94 MG/DL TRIGLYCERIDES (test code = 2232) 142 MG/DL HDL CHOLESTEROL (test code = 2220) 33 MG/DL CALC LDL CHOL (test code = 2237) 38 MG/DL RISK RATIO LDL/HDL (test code = 1.15 RATIO 2238) LIPID [id number] 00:00:00 Test Item Value Reference Range Interpretation Comments CHOLESTEROL (test code = 2210) 94 MG/DL TRIGLYCERIDES (test code = 2232) 142 MG/DL HDL CHOLESTEROL (test code = 2220) 33 MG/DL CALC LDL CHOL (test code = 2237) 38 MG/DL RISK RATIO LDL/HDL (test code = 1.15 RATIO 2238) COMPREHENSIVE METABOLIC [id number] 00:00:00 Test Item Value Reference Range Interpretation Comments GLUCOSE (test code = 2217) 142 MG/DL BUN (test code = 2208) 10 MG/DL CREATININE (test code = 2214) 0.96 MG/DL eGFR AMER. (test code 102 ML/MIN/1.73 = 80991) eGFR NON- AMER. (test 88 ML/MIN/1.73 code = 05394) CALC BUN/CREAT (test code = 10 RATIO [...] code = 2219) 15 U/L COMPREHENSIVE METABOLIC [id number] 00:00:00 Test Item Value Reference Range Interpretation Comments GLUCOSE (test code = 2217) 142 MG/DL BUN (test code = 2208) 10 MG/DL CREATININE (test code = 2214) 0.96 MG/DL eGFR AMER. (test code 102 ML/MIN/1.73 = 07520) eGFR NON- AMER. (test 88 ML/MIN/1.73 code = 66827) CALC BUN/CREAT (test code = 10 RATIO [...] (test code = 2219) 15 U/L LIPID [id number] 00:00:00 Test Item Value Reference Range Interpretation Comments CHOLESTEROL (test code = 2210) 94 MG/DL TRIGLYCERIDES (test code = 2232) 142 MG/DL HDL CHOLESTEROL (test code = 2220) 33 MG/DL CALC LDL CHOL (test code = 2237) 38 MG/DL RISK RATIO LDL/HDL (test code = 1.15 RATIO 2238) LIPID [id number] 00:00:00 Test Item Value Reference Range Interpretation Comments CHOLESTEROL (test code = 2210) 94 MG/DL TRIGLYCERIDES (test code = 2232) 142 MG/DL HDL CHOLESTEROL (test code = 2220) 33 MG/DL CALC LDL CHOL (test code = 2237) 38 MG/DL RISK RATIO LDL/HDL (test code = 1.15 RATIO 2238) COMPREHENSIVE METABOLIC [id number] 00:00:00 Test Item Value Reference Range Interpretation Comments GLUCOSE (test code = 2217) 142 MG/DL BUN (test code = 2208) 10 MG/DL CREATININE (test code = 2214) 0.96 MG/DL eGFR AMER. (test code 102 ML/MIN/1.73 = 60604) eGFR NON- AMER. (test 88 ML/MIN/1.73 code = 02427) CALC BUN/CREAT (test code = 10 RATIO [...] code = 2219) 15 U/L COMPREHENSIVE METABOLIC [id number] 00:00:00 Test Item Value Reference Range Interpretation Comments GLUCOSE (test code = 2217) 142 MG/DL BUN (test code = 2208) 10 MG/DL CREATININE (test code = 2214) 0.96 MG/DL eGFR AMER. (test code 102 ML/MIN/1.73 = 41344) eGFR NON- AMER. (test 88 ML/MIN/1.73 code = 33932) CALC BUN/CREAT (test code = 10 RATIO [...] CALC GLOBULIN (test code = 3.1 G/DL 224) CALC A/G RATIO (test code = 1.2 RATIO 2234) BILIRUBIN, TOTAL (test code = 0.3 MG/DL 2206) ALKALINE PHOSPHATASE (test 122 U/L code = 2204) AST (test code = 2218) 14 U/L ALT (test code = 2219) 15 U/L LIPID [id number] 00:00:00 Test Item Value Reference Range Interpretation Comments CHOLESTEROL (test code = 2210) 94 MG/DL TRIGLYCERIDES (test code = 2232) 142 MG/DL HDL CHOLESTEROL (test code = 2220) 33 MG/DL CALC LDL CHOL (test code = 2237) 38 MG/DL RISK RATIO LDL/HDL (test code = 1.15 RATIO 2238) LIPID [id number] 00:00:00 Test Item Value Reference Range Interpretation Comments CHOLESTEROL (test code = 2210) 94 MG/DL TRIGLYCERIDES (test code = 2232) 142 MG/DL HDL CHOLESTEROL (test code = 2220) 33 MG/DL CALC LDL CHOL (test code = 2237) 38 MG/DL RISK RATIO LDL/HDL (test code = 1.15 RATIO 2238) COMPREHENSIVE METABOLIC [id number] 00:00:00 Test Item Value Reference Range Interpretation Comments GLUCOSE (test code = 2217) 142 MG/DL BUN (test code = 2208) 10 MG/DL CREATININE (test code = 2214) 0.96 MG/DL eGFR AMER. (test code 102 ML/MIN/1.73 = 56189) eGFR NON- AMER. (test 88 ML/MIN/1.73 code = 36117) CALC BUN/CREAT (test code = 10 RATIO [...] code = 2219) 15 U/L COMPREHENSIVE METABOLIC [id number] 00:00:00 Test Item Value Reference Range Interpretation Comments GLUCOSE (test code = 2217) 142 MG/DL BUN (test code = 2208) 10 MG/DL CREATININE (test code = 2214) 0.96 MG/DL eGFR AMER. (test code 102 ML/MIN/1.73 = 71743) eGFR NON- AMER. (test 88 ML/MIN/1.73 code = 17179) CALC BUN/CREAT (test code = 10 RATIO [...] (test code = 2219) 15 U/L LIPID [id number] 00:00:00 Test Item Value Reference Range Interpretation Comments CHOLESTEROL (test code = 2210) 94 MG/DL TRIGLYCERIDES (test code = 2232) 142 MG/DL HDL CHOLESTEROL (test code = 2220) 33 MG/DL CALC LDL CHOL (test code = 2237) 38 MG/DL RISK RATIO LDL/HDL (test code = 1.15 RATIO 2238) LIPID [id number] 00:00:00 Test Item Value Reference Range Interpretation Comments CHOLESTEROL (test code = 2210) 94 MG/DL TRIGLYCERIDES (test code = 2232) 142 MG/DL HDL CHOLESTEROL (test code = 2220) 33 MG/DL CALC LDL CHOL (test code = 2237) 38 MG/DL RISK RATIO LDL/HDL (test code = 1.15 RATIO 2238) COMPREHENSIVE METABOLIC [id number] 00:00:00 Test Item Value Reference Range Interpretation Comments GLUCOSE (test code = 2217) 142 MG/DL BUN (test code = 2208) 10 MG/DL CREATININE (test code = 2214) 0.96 MG/DL eGFR AMER. (test code 102 ML/MIN/1.73 = 99845) eGFR NON- AMER. (test 88 ML/MIN/1.73 code = 73511) CALC BUN/CREAT (test code = 10 RATIO [...] code = 2219) 15 U/L COMPREHENSIVE METABOLIC [id number] 00:00:00 Test Item Value Reference Range Interpretation Comments GLUCOSE (test code = 2217) 142 MG/DL BUN (test code = 2208) 10 MG/DL CREATININE (test code = 2214) 0.96 MG/DL eGFR AMER. (test code 102 ML/MIN/1.73 = 97391) eGFR NON- AMER. (test 88 ML/MIN/1.73 code = 85588) CALC BUN/CREAT (test code = 10 RATIO [...] (test code = 2219) 15 U/L HEMOGLOBIN [id number] 00:00:00 Test Item Value Reference Range Interpretation Comments HEMOGLOBIN A1c (test code = 74341) 9.0 % HEMOGLOBIN [id number] 00:00:00 Test Item Value Reference Range Interpretation Comments HEMOGLOBIN A1c (test code = 21699) 9.0 % HEMOGLOBIN [id number] 00:00:00 Test Item Value Reference Range Interpretation Comments HEMOGLOBIN A1c (test code = 75210) 9.0 % HEMOGLOBIN [id number] 00:00:00 Test Item Value Reference Range Interpretation Comments HEMOGLOBIN A1c (test code = 41853) 9.0 % HEMOGLOBIN [id number] 00:00:00 Test Item Value Reference Range Interpretation Comments HEMOGLOBIN A1c (test code = 75126) 9.0 % HEMOGLOBIN [id number] 00:00:00 Test Item Value Reference Range Interpretation Comments HEMOGLOBIN A1c (test code = 51762) 9.0 % HEMOGLOBIN [id number] 00:00:00 Test Item Value Reference Range Interpretation Comments HEMOGLOBIN A1c (test code = 74926) 9.0 % HEMOGLOBIN [id number] 00:00:00 Test Item Value Reference Range Interpretation Comments HEMOGLOBIN A1c (test code = 56024) 9.0 % HEMOGLOBIN [id number] 00:00:00 Test Item Value Reference Range Interpretation Comments HEMOGLOBIN A1c (test code = 34520) 9.0 % HEMOGLOBIN [id number] 00:00:00 Test Item Value Reference Range Interpretation Comments HEMOGLOBIN A1c (test code = 79958) 9.0 % HEMOGLOBIN [id number] 00:00:00 Test Item Value Reference Range Interpretation Comments HEMOGLOBIN A1c (test code = 68140) 9.0 % HEMOGLOBIN [id number] 00:00:00 Test Item Value Reference Range Interpretation Comments HEMOGLOBIN A1c (test code = 88000) 9.0 % POCT GLUCOSE (AUTOMATED)2019-12-07 22:15:00 Test Item Value Reference Range Interpretation Comments POCT GLU (test code = 7445535203) 114 mg/dL 70-110 H Lab Interpretation (test code = Abnormal 13962-2) [facility] 17:14:00 Test Item Value Reference Range Interpretation Comments POCT GLU (test code = 9098358108) 129 mg/dL 70-110 H Lab Interpretation (test code = Abnormal 72477-5) [facility] METABOLIC PANEL (NA, K, CL, CO2, GLUCOSE, BUN, CREATININE, CA)2019-12-07 14:51:00 Test Item Value Reference Range Interpretation Comments NA (test code = 141 mmol/L 135-145 6046176412) K (test code = 3.3 mmol/L 3.5-5 L 9905994363) CL (test code = 104 mmol/L 98-108 4182313877) CO2 TOTAL (test code = 30 mmol/L 23-31 4068237010) AGAP (test code = 2-16 0851382050) BUN (test code = 12 mg/dL 7-23 0547720899) GLUCOSE (test code = 127 mg/dL 70-110 H 3466295636) CREATININE (test code = 1.13 mg/dL 0.6-1.25 6785558051) CALCIUM (test code = 8.3 mg/dL 8.6-10.6 L 1248777606) eGFR Calculation mL/min/1.73m2 (Non-) (test code = 4323333385) eGFR Calculation mL/min/1.73m2 () (test code = 1861010407) LUIS (test code = LUIS) Association of [...] tests). Lab Interpretation Abnormal (test code = 36136-3) [facility] WITH [id number] 14:34:00 Test Item Value Reference Range Interpretation Comments WBC (test code = See_Comment H [Automated 3190-2) message] The sy stem which generated this [...] (test code = 37.7 fL 38.5-51.6 L 33146-1) RDW-CV (test code = 11.9 % 12.1-15.4 L 788-0) PLT (test code = See_Comment [Automated 777-3) message] The sy stem which generated this result transmitted reference range : 150 - 328 10*3/ ?L. The reference r neno was not used to interpret this result as normal/abnormal . MPV (test code = 8.4 fL 9.8-13 L 63591-5) NRBC/100 WBC (test See_Comment [Automat ed code = 4597377362) message] The system which generated this result transmitted reference range : 0.0 - 10.0 /100 WBCs. The refer ence range was not u sed to interpret th is result as normal/abnormal . NRBC x10^3 (test code <0.01 See_Comment [Auto mated = 2655066038) message] The s ystem which generated this result transmitted reference range : 10*3/?L. The reference range was not used to interpret this result as normal/abnormal . GRAN MAT (NEUT) % 79.8 % (test code = 770-8) IMM GRAN % (test code 0.50 % = 8629096525) LYMPH % (test code = 10.6 % 736-9) MONO % (test code = 8.2 % 5905-5) EOS % (test code = 0.6 % 713-8) BASO % (test code = 0.3 % 706-2) GRAN MAT x10^3(ANC) 8.62 10*3/uL 1.99-6.95 H (test code = 6506530006) IMM GRAN x10^3 (test 0.05 10*3/uL 0-0.06 code = 5137718610) LYMPH x10^3 (test code 1.14 10*3/uL 1.09-3.23 = 731-0) MONO x10^3 (test code 0.89 10*3/uL 0.36-1.02 = 742-7) EOS x10^3 (test code = 0.07 10*3/uL 0.06-0.53 711-2) BASO x10^3 (test code 0.03 10*3/uL 0.01-0.09 = 704-7) Lab Interpretation Abnormal (test code = 63353-2) [facility] GLUCOSE (AUTOMATED)2019-12-07 13:14:00 Test Item Value Reference Range Interpretation Comments POCT GLU (test code = 0935746457) 127 mg/dL 70-110 H Lab Interpretation (test code = Abnormal 54064-9) [facility] GLUCOSE (AUTOMATED)2019-12-07 09:26:00 Test Item Value Reference Range Interpretation Comments POCT GLU (test code = 1239927731) 157 mg/dL 70-110 H Lab Interpretation (test code = Abnormal 20886-3) [facility] GLUCOSE (AUTOMATED)2019-12-07 05:06:00 Test Item Value Reference Range Interpretation Comments POCT GLU (test code = 4640559533) 244 mg/dL 70-110 H Lab Interpretation (test code = Abnormal 48773-1) [facility] GLUCOSE (AUTOMATED)2019-12-07 01:21:00 Test Item Value Reference Range Interpretation Comments POCT GLU (test code = 2205216567) 184 mg/dL 70-110 H Lab Interpretation (test code = Abnormal 08857-5) [facility] GLUCOSE (AUTOMATED)2019-12-06 23:42:00 Test Item Value Reference Range Interpretation Comments POCT GLU (test code = 3726612311) 99 mg/dL 70-110 Lab Interpretation (test code = Normal 17518-6) [facility] RAPID TESTING[facility]2019-12-06 18:13:00 Test Item Value Reference Range Interpretation Comments SARS-CoV-2 Rapid ID NOW Not Detected Not Detected (test code = 58487-5) LUIS (test code = LUIS) ID NOW COVID-19 Assay is an isothermal nucleic acid amplification test intended for the qualitative detection of nucleic acid from SARS-CoV-2 viral RNA in nasopharyngeal (SYNTHETIC GEM PRESS OPERATOR) specimens. It is used under Emergency Use [...] indicated. Lab Interpretation Normal (test code = 09435-0) [facility] GLUCOSE (AUTOMATED)2019-12-06 16:57:00 Test Item Value Reference Range Interpretation Comments POCT GLU (test code = 7312371897) 107 mg/dL 70-110 Lab Interpretation (test code = Normal 33577-4) [facility] GLUCOSE (AUTOMATED)2019-12-06 13:17:00 Test Item Value Reference Range Interpretation Comments POCT GLU (test code = 5552479372) 103 mg/dL 70-110 Lab Interpretation (test code = Normal 60053-2) [facility] GLUCOSE (AUTOMATED)2019-12-06 09:17:00 Test Item Value Reference Range Interpretation Comments POCT GLU (test code = 4970973565) 103 mg/dL 70-110 Lab Interpretation (test code = Normal 50459-6) [facility] GLUCOSE (AUTOMATED)2019-12-06 05:25:00 Test Item Value Reference Range Interpretation Comments POCT GLU (test code = 2213099581) 115 mg/dL 70-110 H Lab Interpretation (test code = Abnormal 18862-6) [facility] GLUCOSE (AUTOMATED)2019-12-06 01:54:00 Test Item Value Reference Range Interpretation Comments POCT GLU (test code = 5108277964) 131 mg/dL 70-110 H Lab Interpretation (test code = Abnormal 87584-4) [facility] GLUCOSE (AUTOMATED)2019-12-05 22:05:00 Test Item Value Reference Range Interpretation Comments POCT GLU (test code = 3759399616) 192 mg/dL 70-110 H Lab Interpretation (test code = Abnormal 72344-4) [facility] GLUCOSE (AUTOMATED)2019-12-05 16:58:00 Test Item Value Reference Range Interpretation Comments POCT GLU (test code = 2996996021) 99 mg/dL 70-110 Lab Interpretation (test code = Normal 10379-1) [facility] GLUCOSE (AUTOMATED)2019-12-05 12:49:00 Test Item Value Reference Range Interpretation Comments POCT GLU (test code = 2702241056) 140 mg/dL 70-110 H Lab Interpretation (test code = Abnormal 58273-4) [facility] GLUCOSE (AUTOMATED)2019-12-05 10:00:00 Test Item Value Reference Range Interpretation Comments POCT GLU (test code = 7241261729) 128 mg/dL 70-110 H Lab Interpretation (test code = Abnormal 79880-6) [facility] GLUCOSE (AUTOMATED)2019-12-05 05:23:00 Test Item Value Reference Range Interpretation Comments POCT GLU (test code = 6869140651) 145 mg/dL 70-110 H Lab Interpretation (test code = Abnormal 28877-7) [facility] GLUCOSE (AUTOMATED)2019-12-04 21:28:00 Test Item Value Reference Range Interpretation Comments POCT GLU (test code = 4800505761) 149 mg/dL 70-110 H Lab Interpretation (test code = Abnormal 10426-7) [facility] GLUCOSE (AUTOMATED)2019-12-04 16:50:00 Test Item Value Reference Range Interpretation Comments POCT GLU (test code = 3491328585) 131 mg/dL 70-110 H Lab Interpretation (test code = Abnormal 70973-5) [facility] GLUCOSE (AUTOMATED)2019-12-04 13:33:00 Test Item Value Reference Range Interpretation Comments POCT GLU (test code = 4127438256) 117 mg/dL 70-110 H Lab Interpretation (test code = Abnormal 08360-2) [facility] (NA, K, CL, CO2, GLUCOSE, BUN, CREATININE, CA)2019-12-04 11:21:00 Test Item Value Reference Range Interpretation Comments NA (test code = 140 mmol/L 135-145 5618741479) K (test code = 3.3 mmol/L 3.5-5 L 6902080105) CL (test code = 105 mmol/L 98-108 1049706666) CO2 TOTAL (test code = 28 mmol/L 23-31 4882848613) AGAP (test code = 2-16 1626451513) BUN (test code = 9 mg/dL 7-23 1391000756) GLUCOSE (test code = 124 mg/dL 70-110 H 0066637304) CREATININE (test code = 1.04 mg/dL 0.6-1.25 3856665851) CALCIUM (test code = 8.7 mg/dL 8.6-10.6 4921096748) eGFR Calculation mL/min/1.73m2 (Non-) (test code = 4793694937) eGFR Calculation mL/min/1.73m2 () (test code = 5306259563) LUIS (test code = LUIS) Association of [...] tests). Lab Interpretation Abnormal (test code = 44020-4) [facility] WITH [id number] 10:41:00 Test Item Value Reference Range Interpretation [...] (test code = 37.9 fL 38.5-51.6 L 90176-4) RDW-CV (test code = 11.8 % 12.1-15.4 L 788-0) PLT (test code = See_Comment [Automated 777-3) message] The sy stem which generated this result transmitted reference range : 150 - 328 10*3/ ?L. The reference r neno was not used to interpret this result as normal/abnormal . MPV (test code = 8.3 fL 9.8-13 L 90229-9) NRBC/100 WBC (test See_Comment [Automat ed code = 2845025742) message] The system which generated this result transmitted reference range : 0.0 - 10.0 /100 WBCs. The refer ence range was not u sed to interpret th is result as normal/abnormal . NRBC x10^3 (test code <0.01 See_Comment [Auto mated = [id number]) message] The s ystem which generated this result transmitted reference range : 10*3/?L. The reference range was not used to interpret this result as normal/abnormal . GRAN MAT (NEUT) % 70.3 % (test code = 770-8) IMM GRAN % (test code 0.20 % = 8809199917) LYMPH % (test code = 18.6 % 736-9) MONO % (test code = 8.2 % 5905-5) EOS % (test code = 2.3 % 713-8) BASO % (test code = 0.4 % 706-2) GRAN MAT x10^3(ANC) 5.86 10*3/uL 1.99-6.95 (test code = 8038819890) IMM GRAN x10^3 (test <0.03 0-0.06 code = 4632677099) LYMPH x10^3 (test code 1.55 10*3/uL 1.09-3.23 = 731-0) MONO x10^3 (test code 0.68 10*3/uL 0.36-1.02 = 742-7) EOS x10^3 (test code = 0.19 10*3/uL 0.06-0.53 711-2) BASO x10^3 (test code 0.03 10*3/uL 0.01-0.09 = 704-7) Lab Interpretation Abnormal (test code = 69707-4) [facility] GLUCOSE (AUTOMATED)2019-12-04 05:06:00 Test Item Value Reference Range Interpretation Comments POCT GLU (test code = 0121335095) 126 mg/dL 70-110 H Lab Interpretation (test code = Abnormal 28009-4) [facility] GLUCOSE (AUTOMATED)2019-12-04 01:12:00 Test Item Value Reference Range Interpretation Comments POCT GLU (test code = 9221621116) 187 mg/dL 70-110 H Lab Interpretation (test code = Abnormal 04597-7) [facility] GLUCOSE (AUTOMATED)2019-12-03 21:14:00 Test Item Value Reference Range Interpretation Comments POCT GLU (test code = 4013780311) 117 mg/dL 70-110 H Lab Interpretation (test code = Abnormal 09461-4) [facility] GLUCOSE (AUTOMATED)2019-12-03 17:21:00 Test Item Value Reference Range Interpretation Comments POCT GLU (test code = 0116063637) 238 mg/dL 70-110 H Lab Interpretation (test code = Abnormal 01612-7) [facility] GLUCOSE (AUTOMATED)2019-12-03 13:37:00 Test Item Value Reference Range Interpretation Comments POCT GLU (test code = 1351668595) 173 mg/dL 70-110 H Lab Interpretation (test code = Abnormal 26583-9) [facility] METABOLIC PANEL (NA, K, CL, CO2, GLUCOSE, BUN, CREATININE, CA)2019-12-03 10:47:00 Test Item Value Reference Range Interpretation Comments NA (test code = 137 mmol/L 135-145 5870458577) K (test code = 3.2 mmol/L 3.5-5 L 5582137878) CL (test code = 101 mmol/L 98-108 7917877630) CO2 TOTAL (test code = 28 mmol/L 23-31 4441811998) AGAP (test code = 2-16 2661316988) BUN (test code = 12 mg/dL 7-23 6617488546) GLUCOSE (test code = 164 mg/dL 70-110 H 1515360363) CREATININE (test code = 1.15 mg/dL 0.6-1.25 7848119804) CALCIUM (test code = 8.4 mg/dL 8.6-10.6 L 6787882809) eGFR Calculation mL/min/1.73m2 (Non-) (test code = 3194414275) eGFR Calculation mL/min/1.73m2 () (test code = 7758836053) LUIS (test code = LUIS) Association of [...] tests). Lab Interpretation Abnormal (test code = 94819-4) [facility] WITH [id number] 10:39:00 Test Item Value Reference Range Interpretation [...] (test code = 37.4 fL 38.5-51.6 L 00359-3) RDW-CV (test code = 11.5 % 12.1-15.4 L 788-0) PLT (test code = See_Comment [Automated 777-3) message] The sy stem which generated this result transmitted reference range : 150 - 328 10*3/ ?L. The reference r neno was not used to interpret this result as normal/abnormal . MPV (test code = 8.7 fL 9.8-13 L 30233-3) NRBC/100 WBC (test See_Comment [Automat ed code = 1501667702) message] The system which generated this result transmitted reference range : 0.0 - 10.0 /100 WBCs. The refer ence range was not u sed to interpret th is result as normal/abnormal . NRBC x10^3 (test code <0.01 See_Comment [Auto mated = 8901528982) message] The s ystem which generated this result transmitted reference range : 10*3/?L. The reference range was not used to interpret this result as normal/abnormal . GRAN MAT (NEUT) % 70.6 % (test code = 770-8) IMM GRAN % (test code 0.40 % = 3725158777) LYMPH % (test code = 18.0 % 736-9) MONO % (test code = 8.5 % 5905-5) EOS % (test code = 2.1 % 713-8) BASO % (test code = 0.4 % 706-2) GRAN MAT x10^3(ANC) 5.33 10*3/uL 1.99-6.95 (test code = 1268269674) IMM GRAN x10^3 (test 0.03 10*3/uL 0-0.06 code = 3699152235) LYMPH x10^3 (test code 1.36 10*3/uL 1.09-3.23 = 731-0) MONO x10^3 (test code 0.64 10*3/uL 0.36-1.02 = 742-7) EOS x10^3 (test code = 0.16 10*3/uL 0.06-0.53 711-2) BASO x10^3 (test code 0.03 10*3/uL 0.01-0.09 = 704-7) Lab Interpretation Abnormal (test code = 15134-2) [facility] GLUCOSE (AUTOMATED)2019-12-03 09:16:00 Test Item Value Reference Range Interpretation Comments POCT GLU (test code = 7211391750) 179 mg/dL 70-110 H Lab Interpretation (test code = Abnormal 98446-8) [facility] GLUCOSE (AUTOMATED)2019-12-03 05:53:00 Test Item Value Reference Range Interpretation Comments POCT GLU (test code = 6147191547) 227 mg/dL 70-110 H Lab Interpretation (test code = Abnormal 80845-3) [facility] GLUCOSE (AUTOMATED)2019-12-03 02:02:00 Test Item Value Reference Range Interpretation Comments POCT GLU (test code = 5369899334) 211 mg/dL 70-110 H Lab Interpretation (test code = Abnormal 28542-8) [facility] GLUCOSE (AUTOMATED)2019-12-03 01:29:00 Test Item Value Reference Range Interpretation Comments POCT GLU (test code = 5694914469) 213 mg/dL 70-110 H Lab Interpretation (test code = Abnormal 06082-8) [facility] GLUCOSE (AUTOMATED)2019-12-02 23:05:00 Test Item Value Reference Range Interpretation Comments POCT GLU (test code = 1794082393) 227 mg/dL 70-110 H Lab Interpretation (test code = Abnormal 19570-2) [facility] [id number] 19:54:00 Test Item Value Reference Range Interpretation Comments Case Report (test code Surgical Pathology ? ? = 2211721777) ?Case: [id number] ? Authorizing Provider: ?Yadira Nick MD ? ? ?Collected: ? 11/27/2019 1507 ?Ordering Location: ? ? [facility] OR ? Received: ?11/28/2019 09 ? Department ? Pathologist: ? Jeb, ? [place], MD ?Specimen: ? ?TOE, Left first and second toe ? Final Diagnosis (test j5kgcKAnBZVvz0igVQCwrV code = 9268586945) FuZzEwMzNcZnRuYmpcdWMx GRiebmLzFOuya8KfZ6OzPe AwMFxhbnNpXGRlZmxhbmcx DYNpDLT9nwLgZWEzBHteGZ IxRGisOt8ukXLcqAovZeKb BZRuh8amelGVpokjeEf2b2 kmSIYdGyZ5sOPsDNblD3hc zuPcnWIiBOPhNZg2wZzvNj NrOHHlk3Aqng5nGMVsoJDu p8C6LFKBa8AunWVbQJ5avq s9vDerS59rv4S2QsutR1wq WLQqAZZbO8UyMD6bAAYrWj p0NTV9BKM7RDQwMFIxG4Rn VH7xTEFpkNCuZVi1s6hegA mpFOCoVLA7p0sgJEjybvCu KW0mky3hkFu6k9wixaRvTP SkURMkkPYETEBzA1PmcOpq Ph1fnAu2iYntFqcqLHM9Hx m6SI4vfh04rep5lFveCCDz wkiaCgQ1OLjeQTDwgdxwXW w0QVqwFCIryUEtDUAtyGLw T0JcYIqxAP1eldw1FpYuNI 7bpgwrSJhoDUHxJXL4UuBj BDRnv7KxtkowYaDcwt3mvf 30NXM6c4ZnrJnwWJY8XUC0 DuKkYz4hfGCuCYFjES9rPl UceAGcOKFqrp98zYjyDBcl jgSqkQ0oZpZdHKYvkZLaNO QyEULhM8taXaPimpUvK4tj R1XrYXGxAPCaQHLsPhAami Zvy6Zlwk71BYNtfrBdb3Tv nLHcuVn0p2rvMBStDUNsaC wqm3daYTN1FZWpJ1C6lZZv p7jxOLfbDOLjjFX2vrXqRO NwaTDnU2TrxZ4uPLxyRR0s nns5i9nhFrUqJB8gfnwhe5 brUSdkPZBdAIS1NiKmINSg y3FecgrwRrRfw0HtwTLfBS ktH71vf828ZBIpznPmX6zk bGFpblxwbGFpblxmMFxmcz Q8ODJtOBYvUBfnHYUhMSUm MjBcbGFuZzEwMzNcaGljaF ngORmrSrCtZZFbDLzgC6hy ZjFcZnMyMFxwYXJccGFyXG v9blRkahplqIqyiOVsdjfv YXxcrxT5SNAkVZpdLFLiSZ ZzMjBcbGFuZzEwMzNcaGlj aFxmMVxkYmNoXGYxXGxvY2 ewAbNqAcLjGLKUZhRYM0Mf YVbCQvUaWrlRN0HwSH1WEW KKF10PWFDVO5BvHGJSWFGE PHANX88mbKVgAAOcnjAYZE TWNMFLY7C7GLFwQQjeXSPd XGZzMjBcbGFuZzEwMzNcaG ljaFxmMlxkYmNoXGYyXGxv F5rcTzOxN9MnDCGcSwCbtX FyXHBsYWluXGYxXGZzMjBc bGFuZzEwMzNcaGljaFxmMV jpRlMqHNNfBLvtP8fbEyWg VxWtVJKfNEZrAQ1qXJBDQJ KaG7WEZQ1VBBHKMPQOCjLQ MXQTAxKIPqkzHD6bHrLHPC SQYB0BVU3XRyeEHvJjhDYt WMKtxrBxpErrqL2fTiXqIs MyNFxwbGFpblxmMVxmczIw PSnyiuiuTBOxYEevD5gxUm EdCKTunLdjEKruh3JpVFKr XGZzMjAgICAgICAtIElTQ0 vSJIbOTOvNRcyOKU1FQJgO NJaeJUQWQGXMTXYSG1AQC3 AuKr8ZNJYVTV3MCAMkVLnp XGYyXGZzMjBcbGFuZzEwMz NcaGljaFxmMlxkYmNoXGYy WCukE0fsFwTyN5ZoJTKkRy BccGFyXHFsXHBsYWluXGYw IXCmWtJwdZmlkX1aAsXkPs BfRFixBP1fDUHvH6ypvRPo CAPwOMMiC1jvMxFioP0uqQ xmMVxmczIwICAgICAgLSBT S5PYGWHVA0BLRMITNSJBD3 ULO99vSSHNF0iFAlKDC47k VklBQkxFXHBhclxsdHJwYX PceCuuvHaqcZ4oBoEwRtAt NFxwbGFpblxmMVxmczIwXG dczagtFQEcEKnrK0cgDiDm JDZkrByaEDghz3WfKBRoZT NuUbHkcARuZUVMP31XEFDU P4L7YOEwGHvfGBJrQFLeMx BcbGFuZzEwMzNcaGljaFxm FjthArFzSDOiUJlvI6rrSu ShC1SnDXMjNgFjvIWxNTLg lsGftLnopG0sOrVqEsIbLC xwbGFpblxmMVxmczIwXGxh nvhvEPRkIRnoL4nnVdZvAO BzuAikIDqjr6LoVDUoGLSs KfUrHOKuJOGoWJiMH9tNAE dNDPsLEtgLQG2ASLiWBHtl JICJNVQIQCEAW5APZ1GvYj 5BKCZYIJ5SMCEzirDrFCOe FG3jDm8SNZuUSZnrLWzOVS UAIMTGDzaPZPnJIvzGVE4O AYzLMkkvXp5gDRPYGPMlG4 TEBJ5GPNKLXKZOK9tfWAPa ICAgICAtIEJPTkUgUkVTRU JEOI0AVP1DDluKKqOTRZEP TYImEH0SFE8YY0YEOCSTIU WQTsTOH1PBP57YXZgOEEuX XHBsYWluXGYyXGZzMjBcbG FuZzEwMzNcaGljaFxmMlxk KwCgUURtSWvjZ0suVdLmU9 YyXGZzMjBccGFyXHFsXHBs YWluXGYwXGZzMjRccGxhaW 6yZaFzAsYlJHjoHQ8nUVIb A4dclKEeKUSyJPPzF6xzVb HkjV9qyEzqNMfoisJrPCVi LSUbEZVXY2CIKEEZN3MKER OWAHJQX6ZUJ69vLGCGR1wQ MnSFL09uGyyTXxcRKEXvcq daFMIiqAawkY2dQyVyOcOv DozjTF7lSHYtV4ppvSNkNT OdNKRiW3baSrFgtE0jvFfy MVxjZjJcZnMyMiBYaWFvdG MdNoDEjJaaLKLgQKcwOu7w MDIwICAxOjQzIFBNXHBsYW luXGYxXGZzMjBcbGFuZzEw MzNcaGljaFxmMVxkYmNoXG EbNEivG9ifJrYgPvRkBIqt CNRtgDMjUHTrrc04QSL1Hq Mrj8N2WNHiQuHlIOYqSO4a wHikFMIvLH9lSNEdL1amrF 9ldal7ScNzHNOwEmY5QMLs hmC0Ijz4XJNiPAahk8ixa2 WkC4PziGAcoUz8p6rxUTQw WcC1lTEmYUycG0lhgzIlgX XnWSMoZWy3dRvyFaEzZTOp a3lstrPlElXwRPIxDVItFK MnsGvnaah1nN36DLNztQ6f jUGhKFtmlmMwLdJ8OFggVN YmTgH1KSGpgQWsTVZzO3fo ZWQwXGdyZWVuMFxibHVlMC V4qUaln7V4eEQtqXOktAvt WhAxWcAqSRBVf8AcNLl9wD ypU2TkHSQmSuV5wOJdPHKl IIncCLByHDTlpfB9lC66XZ sqrxH3wZYcf3Fic10oo886 uG6xsZBvCRT6QAPdVAGiuD CfTDNfFLD4RKWofBDlY6ln KYTbPC1ahvabUYemNLvgEC XiuOQ8IBVunMTtD0SbAFGe TXakVTSlfmb5LoAoVs1hmL EdvEhhSFuyy0fpb6ctvHGq Non6MJCcDtAjMhimHMlro5 Rae1mtDMYvbx2gRIB9wCKm xBsyc3C0yRRiUXIjzXPxkj YyFLFzWkK8LZpbVJ2edk76 LPWnCOM3oj1srHQfrIkzhn KalLMbIMgbI5PhLWSwj980 HWMtF2BuXMYqy9T2wtWmOh WsSNMhuUO9kjC0ZUKgQRj7 wFQckcY4dhGwwSTsU2jqcA 3tVVHdNF5xkousg4stFGno PCqfGUNcfSZ5toL8MCLupI MdM4AiqA0yKHEmKEgoTIKs qjv5XlOvHe7acVJzlJhyRI xzYmtwYWdlXHBnbmNvbnRc cGduZGVjXHBsYWluXHBsYW luXGYwXGZzMjRccWxccGxh nZ0tJlXnKgMsKXmbWW2oNT IcB8fneZQtROLwCPFcZ8au QqIhlC1nrXnkEWqmMaUyDw MyMFxwYXIgSSBoYXZlIHBl lsHcqzFywItstfD0mGJ4JG NdSBrzUEYdLORgiNVybo6q gKviRXQaOC3wYKCpllLrGG gcbRtgAKtgWJR9LFHicZGr dHMgbWFkZSBieSByZXNpZG BbhACrBILvuUmbx8Jlf6Ha sCO6sA9gn8jgj4LsCJDrvR R7SJ80exT2mU2dLOYvAO4s EKTzGS2xaMPxsZGjFVFbn1 4gdGhpcyByZXBvcnQuXHBs YWluXGYyXGZzMjhcbGFuZz EwMzNcaGljaFxmMlxkYmNo IXTkHMyaR0jvJxPqFmAsZS rgCFI4sW== Clinical Information [place] of toe of (test code = left foot [I96] 8320625563) Gross Description (test f9hvhHSgGWXfbMGjSnWaSP code = 3404333955) QrOYQvf4dbSYTuwUAoQaUd MzNcZnRuYmpcdWMxXGRlZm Deo2rgk456gASio9tvSOHh AlS3hEPvETXsjEPzF965HQ CzXJlvr3qtg6UbXPAxfSJa j8G6TGZHaipjhSp6hBjaT6 3pm8B9VnqlB3knTUHzRPkw DDReFCvqwIJzEFS7BFDoYZ V6HPpgwwXavtX2GQkrmPJh WgM8XSh8g4rsvVwgTMFhSK S0v0biFIygfhJeNL6ejt8w hRd0e1zoquBmMEOmXJOrsD LDRXTbA1XiwJveZh9mqKg9 fRvmPqewRBZ5Hfp3NN1qrx 10oqf7fLnrZYUsyudbLzH7 AVdwGQQhmzpyKYk8DOjoFJ HckELkQWEemHUzR9JeDAax AE4vxcr0YnGfIO1wvgcfHY vbJUYhOBL6FqJwAWUty4Ks osodLiThdq4zep47KUU4x3 SkbCzcAII1YCP3CrDcXn4r eHBiIMBgAT9aNqIjyCUfCZ Lomr48mUhfOZssrdEsjH7d VuSrRFAgeDOnYQZeIS1hsZ McHDFzfC5bdeqkJFZeSyTp ramlKRQpgWkqjrOqTv9laK sxPOQ3VRuxK6gsnZ9jSlE9 ZQweC9tzzZ5kJRj9WKjouM C2DSOofA3vUL1jwzfna9xh HAH2TIiwOGMftyX5ptFvKE XzxYJbW1HzmT98KrXacLHf Y9SseC8eRYbwDQNnsjp4Py MvZc6ixPYjeUV4ONcbHzmf YWdlXHBnbmNvbnRccGduZG VjXHBsYWluXHBsYWluXGYw KGCfWkFlcKmmzAmwnI2nQa BcZnMyMFxwbGFpblxmMVxm czIwIFNwZWNpbWVuIEEgaX OptfPrZUm4WMCzhO8eRr4d nDHljQ4uvMCyGZslQLB3fM ZxYYAtSLXnETJyJS82Z2Bz bmFtZSwgVUggbnVtYmVyIC XoLGW5JXFgeuC9ZLAeMBBd VKQjkxOsjC3uYvipRX9bRS ZqgsPwf7SxSR1oZOCmBfcb y2IkRRlokSPcOWBnPOT6EZ VxPHL1QQByVkJckVgsFV7w EYUky0Lik95pBKIzQ9f2YQ y6IdVbmCTtOeinwTFrChcf F00pYLZxoQgtt7q9eUVmOW NahNbkYD9eSYZdp47dPRBw y2PynUdhpyGqIWQfoK7elH ibt7UgdLS5pOAwgEBktDjy ZDpqtKinhGMnxM3wQu41sS VynGshcUCbFJGdYSMzro4t lNXahUPjSVL1e8t6UTclpD vii0kvmHabtX5gOFNwcE3x SK5tZUSlsGWmYH1hVLI3k3 DwVUhopi1eQTgzISSshqW3 YIEgX3t4IUwsymSdgwQ1fY PoqsFcjbK1rUIncGO8MVPr eHSyp7KpS3PvQGLoXNV0XW KtMbC1YLGxNySdcCeylIzi uWOpkvSiAkQhF05sUdUzvQ P0eTNximGslpKqfCDzv4bg N6IvDpBtjLals3WdDGXhj0 DosIdscyUtJPEfpS7dIL0s DSNuFlWqjMBhar2qUOJhWV Dae94jFWMeg8OjzWwdudIg UNEovM7pCH0kRDVzMSMeYW ceMJBxe23tKHVilV9wuFOc NJJbYRRpWZJnwcL5wWOxbW FvmQWsQDXncYNrnUGdKF86 XRwcPS48ZHLbNEO6eAY2FO dkZVKkGIOgmQGadn8xWZRy NIVnf9S3MGCoc9K7IQSvYM UsD4Xwj28ruOHpF5ucTESt UDDnXiAjM36aJkLzjDC8nP JhXt5cPASaAGLwF5Tpy88f pCUiS7sgJgUCsMLmDmqyw8 XxRIapkLMnzYBig0StuAyc kdJnWCXjHVXomgJxpOX9UA 4tcmVkLCBmaXJtIGJvbmUg M5T0QPR5vvXtX7HrSASaSZ U9QU4dflRxFPVvWXnyXSob W6WmXJ7zl43ryZS4iMTyaX FmY6R6RQM4iiIlX4VwVuAI ePCku9Rru31uBTWpZ5k3OE zwAKNnL2Mdn55nLWQ0lmVl ZXZlYWwgdGFuLXJlZCwgZm pdyKQuh40wTZB8gTKqtOJr XFKioxUpslPwpDYbJRC6lq HnSQiyNWBlj2njs55moCO0 hGUelNXsS3X1EMK8jkEdG0 VzLiBSZXByZXNlbnRhdGl2 XFMyKQR7uD4hooQrohCtd9 BiuMd1lRCdTOawRDNyIEG4 BPRgq1hmi2fpcreyQPJaSB nfbOZjC7U9hC8sQS0xSKJq SLT4SEJyILCVAH1AHY0kdE DbWMJenkHUUFN6hZ3lYASt CZJ8OMJtxmRRFV7OAekaHn bzi5JfBCldhTDoy5lafpSd riItw74wzKK4zUDovHPrrm UoOYX3tP2gNJ8iykekovqn BR38wGUjbUndDFWbHQNmY5 VccGFyIEEzOiBGaXJzdCBk nNprgBSba98iSALnp6QwwQ kwxtPfDUQeyH9eBJOmnCfm YUo7YBDebqObCYOlSMZmvd IGJG9GHLxxScbxd2BhZYau eBHpI5Zjq7Ltt0WtlSqhms kxKuyeXSJ4LOObQPTrCDsl U6z9ICTpzDepXYHxkT5cBA BkTG0wAL61vG8sPomiUNPf gxYiHUklFYS2BJAajbNOJm 0VWqkhM4Nbo18bKBTwY8e2 XFWyoK3oCI3qBCXuGdQrwT yoi7ErYXXho6KcgNoztoIr NUHwhP9vNDXegDilOOw7IM BlbiBmYWNlXHBhciBBODog Q8Rik27lRUTqG7n2CKNicr SebcJyWKH6yY1vMZ1itnua jawgUA93eOKihFrlDUXiHE ZuI6LoaCNkRIZ9GcUWHOKh oxDfXAcuoMDvW0Ict2Jcb0 VjdGlvblxwYXJccGFyXHBh kqHfiSbnuN2yUiLnRnWcMR yiaYUrymdfYOmtucZuTS0s ergdSRFlRWP0l7QtIWLgoC pvWOEPaZWhLS38NERjrzNK cIgrFZZUE9decJFxLOufGF TAAEtJA4NLCIsiDMZziRdb xAupgJ3kVjEeXkYkUPuhiU FpblxmMVxmczIwXHBhclxw YXJ9 Embedded Images (test code = 7137041022) [facility] GLUCOSE (AUTOMATED)2019-12-02 17:08:00 Test Item Value Reference Range Interpretation Comments POCT GLU (test code = 8112918129) 192 mg/dL 70-110 H Lab Interpretation (test code = Abnormal 59252-0) [facility] GLUCOSE (AUTOMATED)2019-12-02 12:59:00 Test Item Value Reference Range Interpretation Comments POCT GLU (test code = 2671050958) 150 mg/dL 70-110 H Lab Interpretation (test code = Abnormal 99038-7) [facility] GLUCOSE (AUTOMATED)2019-12-02 09:52:00 Test Item Value Reference Range Interpretation Comments POCT GLU (test code = 9091202347) 132 mg/dL 70-110 H Lab Interpretation (test code = Abnormal 74241-8) [facility] GLUCOSE (AUTOMATED)2019-12-02 06:13:00 Test Item Value Reference Range Interpretation Comments POCT GLU (test code = 4337233413) 132 mg/dL 70-110 H Lab Interpretation (test code = Abnormal 48265-4) [facility] - Draw immediately prior to the NEXT dose, but, no more than 60 minutes before the NEXT dose. 2019-12-02 05:04:00 Test Item Value Reference Range Interpretation Comments VANCO TROUGH (test code 19.1 ug/mL 10-20 = 4929256135) LUIS (test code = LUIS) Toxic Range: ?>20 ug/mL 15-20 ug/mL is recommended for severe infection or when Vancomycin LISA is greater than or equal to 2. Lab Interpretation (test Normal code = 55179-5) [facility] GLUCOSE (AUTOMATED)2019-12-02 02:23:00 Test Item Value Reference Range Interpretation Comments POCT GLU (test code = 4174507335) 195 mg/dL 70-110 H Lab Interpretation (test code = Abnormal 98371-7) [facility] GLUCOSE (AUTOMATED)2019-12-01 21:48:00 Test Item Value Reference Range Interpretation Comments POCT GLU (test code = 4194276542) 239 mg/dL 70-110 H Lab Interpretation (test code = Abnormal 69750-8) [facility] GLUCOSE (AUTOMATED)2019-12-01 17:29:00 Test Item Value Reference Range Interpretation Comments POCT GLU (test code = 3953733529) 159 mg/dL 70-110 H Lab Interpretation (test code = Abnormal 35851-0) [facility] GLUCOSE (AUTOMATED)2019-12-01 13:28:00 Test Item Value Reference Range Interpretation Comments POCT GLU (test code = 7255380084) 158 mg/dL 70-110 H Lab Interpretation (test code = Abnormal 10769-5) [facility] METABOLIC PANEL (NA, K, CL, CO2, GLUCOSE, BUN, CREATININE, CA)2019-12-01 10:24:00 Test Item Value Reference Range Interpretation Comments NA (test code = 138 mmol/L 135-145 2259589967) K (test code = 3.4 mmol/L 3.5-5 L 9329976235) CL (test code = 104 mmol/L 98-108 9880984505) CO2 TOTAL (test code = 26 mmol/L 23-31 3464559009) AGAP (test code = 2-16 7899691188) BUN (test code = 9 mg/dL 7-23 2573503368) GLUCOSE (test code = 170 mg/dL 70-110 H 3663222940) CREATININE (test code = 0.87 mg/dL 0.6-1.25 3440073855) CALCIUM (test code = 8.5 mg/dL 8.6-10.6 L 6901940542) eGFR Calculation mL/min/1.73m2 (Non-) (test code = 2306492164) eGFR Calculation mL/min/1.73m2 () (test code = 7835650734) LUIS (test code = LUIS) Association of [...] tests). Lab Interpretation Abnormal (test code = 69552-8) [facility] WITH [id number] 10:13:00 Test Item Value Reference Range Interpretation Comments WBC (test code = See_Comment [Automated 5677-2) message] The sy stem which generated this [...] (test code = 36.7 fL 38.5-51.6 L 63423-2) RDW-CV (test code = 11.4 % 12.1-15.4 L 788-0) PLT (test code = See_Comment [Automated 777-3) message] The sy stem which generated this result transmitted reference range : 150 - 328 10*3/ ?L. The reference r neno was not used to interpret this result as normal/abnormal . MPV (test code = 8.7 fL 9.8-13 L 92551-8) NRBC/100 WBC (test See_Comment [Automat ed code = 0164051128) message] The system which generated this result transmitted reference range : 0.0 - 10.0 /100 WBCs. The refer ence range was not u sed to interpret th is result as normal/abnormal . NRBC x10^3 (test code <0.01 See_Comment [Auto mated = 1913926542) message] The s ystem which generated this result transmitted reference range : 10*3/?L. The reference range was not used to interpret this result as normal/abnormal . GRAN MAT (NEUT) % 72.7 % (test code = 770-8) IMM GRAN % (test code 0.40 % = 0648123900) LYMPH % (test code = 16.4 % 736-9) MONO % (test code = 8.3 % 5905-5) EOS % (test code = 1.8 % 713-8) BASO % (test code = 0.4 % 706-2) GRAN MAT x10^3(ANC) 5.76 10*3/uL 1.99-6.95 (test code = 9757541789) IMM GRAN x10^3 (test 0.03 10*3/uL 0-0.06 code = 1724554210) LYMPH x10^3 (test code 1.30 10*3/uL 1.09-3.23 = 731-0) MONO x10^3 (test code 0.66 10*3/uL 0.36-1.02 = 742-7) EOS x10^3 (test code = 0.14 10*3/uL 0.06-0.53 711-2) BASO x10^3 (test code 0.03 10*3/uL 0.01-0.09 = 704-7) Lab Interpretation Abnormal (test code = 91850-4) [facility] GLUCOSE (AUTOMATED)2019-12-01 09:40:00 Test Item Value Reference Range Interpretation Comments POCT GLU (test code = 5973081156) 171 mg/dL 70-110 H Lab Interpretation (test code = Abnormal 17129-9) [facility] GLUCOSE (AUTOMATED)2019-12-01 05:50:00 Test Item Value Reference Range Interpretation Comments POCT GLU (test code = 9541438552) 196 mg/dL 70-110 H Lab Interpretation (test code = Abnormal 03050-5) [id number] 02:45:00 Test Item Value Reference Range Interpretation Comments Blood Culture-Aerobic No organisms No growth Previo us (test code = 81843-3) isolated prelim inary verified result was Culture In Progress on 11/26/2019 at 01 CDTPrevious preliminary verified result was No growth a t 24 hours on 11/26/2019 at 22 01 CDTPrevious preliminary verified result was No growth a t 48 hours on 11/27/2019 at 22 01 CDTPrevious preliminary verified result was No growth a t 72 hours on 11/28/2019 at 22 02 CDT Blood No organisms No growth Previous Culture-Anaerobic isolated preliminar y (test code = 46465-4) verifi ed result was Culture In Progress [...] CDT Lab Interpretation Normal (test code = 39230-8) [facility] [id number] 02:44:00 Test Item Value Reference Range Interpretation Comments Blood Culture-Aerobic No organisms No growth Previo us (test code = 16356-7) isolated prelim inary verified result was Culture [...] Culture-Anaerobic isolated preliminar y (test code = 86680-1) verifi ed result was Culture In Progress [...] CDT Lab Interpretation Normal (test code = 40212-0) [facility]2019-12-01 01:55:00 Test Item Value Reference Range Interpretation Comments POCT GLU (test code = 5690619478) 289 mg/dL 70-110 H Lab Interpretation (test code = Abnormal 61766-2) [facility] Screen - ONCE [id number] 23:43:27 Test Item Value Reference Range Interpretation Comments ABO & RH (test code O POSITIVE Performe d at [facility] = 20) Laboratory Serv [employer] [facility] [address] [facility] s [id number] Free: [phone] A No. [id number] IAT (test code = Negative Performed a t [facility] 1185) Laboratory Serv [employer] [facility] [address] [facility] [address]Sjhc Free: [phone] A No. [id number] [facility] GLUCOSE (AUTOMATED)2019-11-30 22:10:00 Test Item Value Reference Range Interpretation Comments POCT GLU (test code = 0811746559) 147 mg/dL 70-110 H Lab Interpretation (test code = Abnormal 81460-1) [facility] CULTURE(AEROBIC/ANAEROBIC)2019-11-30 18:38:00 Test Item Value Reference Range Interpretation Comments TISSUE CULTURE (test No aerobic/anaerobic code = 50632-0) organisms isolated Gram stain (test code No PMNs or Mononuclear = 664-3) cells observed [facility] CULTURE(AEROBIC/ANAEROBIC)2019-11-30 16:54:00 Test Item Value Reference Range Interpretation Comments TISSUE CULTURE 2+ Streptococcus [place] (test code = [facility] morphological [place] 09942-9) consistent with organism above Gram stain No PMNs or (test code = Mononuclear cells 664-3) observed [facility] GLUCOSE (AUTOMATED)2019-11-30 15:56:00 Test Item Value Reference Range Interpretation Comments POCT GLU (test code = 7695846209) 223 mg/dL 70-110 H Lab Interpretation (test code = Abnormal 10605-1) [facility] Level - Draw immediately prior to the 4TH dose, but, no more than 60 minutes before the 4TH dose. 2019-11-30 15:34:00 Test Item Value Reference Range Interpretation Comments VANCO TROUGH (test code 15.4 ug/mL 10-20 = 5238227083) LUIS (test code = LUIS) Toxic Range: ?>20 ug/mL 15-20 ug/mL is recommended for severe infection or when Vancomycin LISA is greater than or equal to 2. Lab Interpretation (test Normal code = 80084-0) [facility] GLUCOSE (AUTOMATED)2019-11-30 13:25:00 Test Item Value Reference Range Interpretation Comments POCT GLU (test code = 4477363163) 143 mg/dL 70-110 H Lab Interpretation (test code = Abnormal 66275-2) [facility]OL[facility] (NA, K, CL, CO2, GLUCOSE, BUN, CREATININE, CA)2019-11-30 10:57:00 Test Item Value Reference Range Interpretation Comments NA (test code = 139 mmol/L 135-145 4086926804) K (test code = 3.4 mmol/L 3.5-5 L 8400761471) CL (test code = 103 mmol/L 98-108 7987126178) CO2 TOTAL (test code = 28 mmol/L 23-31 8376942302) AGAP (test code = 2-16 1976272638) BUN (test code = 7 mg/dL 7-23 9078433329) GLUCOSE (test code = 131 mg/dL 70-110 H 7498705564) CREATININE (test code = 0.76 mg/dL 0.6-1.25 7016352851) CALCIUM (test code = 8.3 mg/dL 8.6-10.6 L 4043210429) eGFR Calculation mL/min/1.73m2 (Non-) (test code = 9233263802) eGFR Calculation mL/min/1.73m2 () (test code = 9801434147) LUIS (test code = LUIS) Association of [...] tests). Lab Interpretation Abnormal (test code = 27314-3) [facility] WITH [id number] 10:26:00 Test Item Value Reference Range Interpretation [...] (test code = 35.8 fL 38.5-51.6 L 19197-3) RDW-CV (test code = 11.3 % 12.1-15.4 L 788-0) PLT (test code = See_Comment H [Automated 777-3) message] The sy stem which generated this result transmitted reference range : 150 - 328 10*3/ ?L. The reference r neno was not used to interpret this result as normal/abnormal . MPV (test code = 9.0 fL 9.8-13 L 50086-0) NRBC/100 WBC (test See_Comment [Automat ed code = 0923727212) message] The system which generated this result transmitted reference range : 0.0 - 10.0 /100 WBCs. The refer ence range was not u sed to interpret th is result as normal/abnormal . NRBC x10^3 (test code <0.01 See_Comment [Auto mated = 4565798591) message] The s ystem which generated this result transmitted reference range : 10*3/?L. The reference range was not used to interpret this result as normal/abnormal . GRAN MAT (NEUT) % 74.5 % (test code = 770-8) IMM GRAN % (test code 0.50 % = 7076357336) LYMPH % (test code = 14.7 % 736-9) MONO % (test code = 8.5 % 5905-5) EOS % (test code = 1.5 % 713-8) BASO % (test code = 0.3 % 706-2) GRAN MAT x10^3(ANC) 6.57 10*3/uL 1.99-6.95 (test code = 1527043099) IMM GRAN x10^3 (test 0.04 10*3/uL 0-0.06 code = 7197313254) LYMPH x10^3 (test code 1.30 10*3/uL 1.09-3.23 = 731-0) MONO x10^3 (test code 0.75 10*3/uL 0.36-1.02 = 742-7) EOS x10^3 (test code = 0.13 10*3/uL 0.06-0.53 711-2) BASO x10^3 (test code 0.03 10*3/uL 0.01-0.09 = 704-7) Lab Interpretation Abnormal (test code = 47597-8) [facility] GLUCOSE (AUTOMATED)2019-11-30 09:23:00 Test Item Value Reference Range Interpretation Comments POCT GLU (test code = 4476179606) 140 mg/dL 70-110 H Lab Interpretation (test code = Abnormal 86247-0) [facility] GLUCOSE (AUTOMATED)2019-11-30 04:51:00 Test Item Value Reference Range Interpretation Comments POCT GLU (test code = 0689508318) 206 mg/dL 70-110 H Lab Interpretation (test code = Abnormal 71936-2) [facility] GLUCOSE (AUTOMATED)2019-11-30 01:36:00 Test Item Value Reference Range Interpretation Comments POCT GLU (test code = 4091357744) 201 mg/dL 70-110 H Lab Interpretation (test code = Abnormal 39571-4) [facility] GLUCOSE (AUTOMATED)2019-11-30 01:32:00 Test Item Value Reference Range Interpretation Comments POCT GLU (test code = 4122744995) 232 mg/dL 70-110 H Lab Interpretation (test code = Abnormal 43666-5) [facility] GLUCOSE (AUTOMATED)2019-11-29 23:17:00 Test Item Value Reference Range Interpretation Comments POCT GLU (test code = 6577343726) 202 mg/dL 70-110 H Lab Interpretation (test code = Abnormal 87552-0) [facility] GLUCOSE (AUTOMATED)2019-11-29 17:01:00 Test Item Value Reference Range Interpretation Comments POCT GLU (test code = 4604556978) 283 mg/dL 70-110 H Lab Interpretation (test code = Abnormal 64707-1) [facility] GLUCOSE (AUTOMATED)2019-11-29 12:40:00 Test Item Value Reference Range Interpretation Comments POCT GLU (test code = 7215755675) 207 mg/dL 70-110 H Lab Interpretation (test code = Abnormal 84219-1) [facility] METABOLIC PANEL (NA, K, CL, CO2, GLUCOSE, BUN, CREATININE, CA)2019-11-29 10:27:00 Test Item Value Reference Range Interpretation Comments NA (test code = 134 mmol/L 135-145 L 8107130155) K (test code = 3.0 mmol/L 3.5-5 L 6263425702) CL (test code = 98 mmol/L 98-108 7113043260) CO2 TOTAL (test code = 31 mmol/L 23-31 5828405222) AGAP (test code = 2-16 9766172675) BUN (test code = 4 mg/dL 7-23 L 2946519753) GLUCOSE (test code = 180 mg/dL 70-110 H 2443870139) CREATININE (test code = 0.39 mg/dL 0.6-1.25 L 1523644633) CALCIUM (test code = 7.8 mg/dL 8.6-10.6 L 2187973800) eGFR Calculation mL/min/1.73m2 (Non-) (test code = 7063658740) eGFR Calculation mL/min/1.73m2 () (test code = 3287661813) LUIS (test code = LUIS) Association of [...] tests). Lab Interpretation Abnormal (test code = 32689-2) [facility] WITH [id number] 09:54:00 Test Item Value Reference Range Interpretation Comments WBC (test code = See_Comment [Automated 2470-2) message] The sy stem which generated this result transmitted reference range : 4.20 - 10.70 10*3/?L. The reference range was not used to interpret this result as normal/abnormal . RBC (test code = See_Comment L [Automated 320-8) message] The sy stem which generated this [...] (test code = 35.2 fL 38.5-51.6 L 59324-3) RDW-CV (test code = 11.2 % 12.1-15.4 L 788-0) PLT (test code = See_Comment [Automated 777-3) message] The sy stem which generated this result transmitted reference range : 150 - 328 10*3/ ?L. The reference r neno was not used to interpret this result as normal/abnormal . MPV (test code = 8.9 fL 9.8-13 L 28555-9) NRBC/100 WBC (test See_Comment [Automat ed code = 2077312768) message] The system which generated this result transmitted reference range : 0.0 - 10.0 /100 WBCs. The refer ence range was not u sed to interpret th is result as normal/abnormal . NRBC x10^3 (test code <0.01 See_Comment [Auto mated = 7911139337) message] The s ystem which generated this result transmitted reference range : 10*3/?L. The reference range was not used to interpret this result as normal/abnormal . GRAN MAT (NEUT) % 77.2 % (test code = 770-8) IMM GRAN % (test code 0.50 % = 2048265921) LYMPH % (test code = 13.2 % 736-9) MONO % (test code = 8.1 % 5905-5) EOS % (test code = 0.8 % 713-8) BASO % (test code = 0.2 % 706-2) GRAN MAT x10^3(ANC) 6.62 10*3/uL 1.99-6.95 (test code = 5236512132) IMM GRAN x10^3 (test 0.04 10*3/uL 0-0.06 code = 0024704881) LYMPH x10^3 (test code 1.13 10*3/uL 1.09-3.23 = 731-0) MONO x10^3 (test code 0.69 10*3/uL 0.36-1.02 = 742-7) EOS x10^3 (test code = 0.07 10*3/uL 0.06-0.53 711-2) BASO x10^3 (test code <0.03 0.01-0.09 = 704-7) Lab Interpretation Abnormal (test code = 72395-0) [facility] GLUCOSE (AUTOMATED)2019-11-29 09:37:00 Test Item Value Reference Range Interpretation Comments POCT GLU (test code = 2428642616) 184 mg/dL 70-110 H Lab Interpretation (test code = Abnormal 22869-5) [facility] GLUCOSE (AUTOMATED)2019-11-29 04:45:00 Test Item Value Reference Range Interpretation Comments POCT GLU (test code = 7621447111) 237 mg/dL 70-110 H Lab Interpretation (test code = Abnormal 85818-2) [facility] METABOLIC PANEL (NA, K, CL, CO2, GLUCOSE, BUN, CREATININE, CA)2019-11-29 04:24:00 Test Item Value Reference Range Interpretation Comments NA (test code = 132 mmol/L 135-145 L 3012697385) K (test code = 3.1 mmol/L 3.5-5 L 3267796887) CL (test code = 98 mmol/L 98-108 7366790487) CO2 TOTAL (test code = 31 mmol/L 23-31 9668810282) AGAP (test code = 2-16 5281039985) BUN (test code = 4 mg/dL 7-23 L 5556333851) GLUCOSE (test code = 229 mg/dL 70-110 H 2839503515) CREATININE (test code = 0.42 mg/dL 0.6-1.25 L 6474720879) CALCIUM (test code = 8.0 mg/dL 8.6-10.6 L 4060162341) eGFR Calculation mL/min/1.73m2 (Non-) (test code = 1514034859) eGFR Calculation mL/min/1.73m2 () (test code = 8128887602) LUIS (test code = LUIS) Association of [...] tests). Lab Interpretation Abnormal (test code = 56487-7) [facility] GLUCOSE (AUTOMATED)2019-11-29 01:48:00 Test Item Value Reference Range Interpretation Comments POCT GLU (test code = 0390459244) 227 mg/dL 70-110 H Lab Interpretation (test code = Abnormal 45969-8) [facility] GLUCOSE (AUTOMATED)2019-11-28 22:28:00 Test Item Value Reference Range Interpretation Comments POCT GLU (test code = 4361509498) 208 mg/dL 70-110 H Lab Interpretation (test code = Abnormal 08012-7) [facility] GLUCOSE (AUTOMATED)2019-11-28 19:56:00 Test Item Value Reference Range Interpretation Comments POCT GLU (test code = 0079547955) 198 mg/dL 70-110 H Lab Interpretation (test code = Abnormal 60000-0) [facility] GLUCOSE (AUTOMATED)2019-11-28 16:56:00 Test Item Value Reference Range Interpretation Comments POCT GLU (test code = 9248155896) 127 mg/dL 70-110 H Lab Interpretation (test code = Abnormal 73529-5) [facility] GLUCOSE (AUTOMATED)2019-11-28 13:43:00 Test Item Value Reference Range Interpretation Comments POCT GLU (test code = 9973922740) 163 mg/dL 70-110 H Lab Interpretation (test code = Abnormal 53244-6) [facility] WITH [id number] 11:40:00 Test Item Value Reference Range Interpretation [...] (test code = 33.8 fL 38.5-51.6 L 70241-8) RDW-CV (test code = 10.8 % 12.1-15.4 L 788-0) PLT (test code = See_Comment H [Automated 777-3) message] The sy stem which generated this result transmitted reference range : 150 - 328 10*3/ ?L. The reference r neno was not used to interpret this result as normal/abnormal . MPV (test code = 9.0 fL 9.8-13 L 45999-6) NRBC/100 WBC (test See_Comment [Automat ed code = 5759525705) message] The system which generated this result transmitted reference range : 0.0 - 10.0 /100 WBCs. The refer ence range was not u sed to interpret th is result as normal/abnormal . NRBC x10^3 (test code <0.01 See_Comment [Auto mated = 2906720610) message] The s ystem which generated this result transmitted reference range : 10*3/?L. The reference range was not used to interpret this result as normal/abnormal . GRAN MAT (NEUT) % 82.9 % (test code = 770-8) IMM GRAN % (test code 0.60 % = 6554223781) LYMPH % (test code = 8.2 % 736-9) MONO % (test code = 7.4 % 5905-5) EOS % (test code = 0.7 % 713-8) BASO % (test code = 0.2 % 706-2) GRAN MAT x10^3(ANC) 8.89 10*3/uL 1.99-6.95 H (test code = 2663050585) IMM GRAN x10^3 (test 0.06 10*3/uL 0-0.06 code = 8980008863) LYMPH x10^3 (test code 0.88 10*3/uL 1.09-3.23 L = 731-0) MONO x10^3 (test code 0.79 10*3/uL 0.36-1.02 = 742-7) EOS x10^3 (test code = 0.07 10*3/uL 0.06-0.53 711-2) BASO x10^3 (test code <0.03 0.01-0.09 = 704-7) Lab Interpretation Abnormal (test code = 17211-2) [facility] (NA, K, CL, CO2, GLUCOSE, BUN, CREATININE, CA)2019-11-28 11:17:00 Test Item Value Reference Range Interpretation Comments NA (test code = 133 mmol/L 135-145 L 6800706011) K (test code = 2.6 mmol/L 3.5-5 LL 3677123489) CL (test code = 94 mmol/L 98-108 L 5028595511) CO2 TOTAL (test code = 30 mmol/L 23-31 4957342907) AGAP (test code = 2-16 4577446615) BUN (test code = 3 mg/dL 7-23 L 1582855243) GLUCOSE (test code = 152 mg/dL 70-110 H 6488565868) CREATININE (test code = 0.36 mg/dL 0.6-1.25 L 3519535033) CALCIUM (test code = 7.8 mg/dL 8.6-10.6 L 3897152471) eGFR Calculation mL/min/1.73m2 (Non-) (test code = 0561881334) eGFR Calculation mL/min/1.73m2 () (test code = 3645110533) LUIS (test code = LUIS) Association of [...] tests). Lab Interpretation Abnormal (test code = 23291-4) [facility] GLUCOSE (AUTOMATED)2019-11-28 09:02:00 Test Item Value Reference Range Interpretation Comments POCT GLU (test code = 7060966700) 151 mg/dL 70-110 H Lab Interpretation (test code = Abnormal 94553-6) [facility] T[facility] Level - Draw within 30 minutes prior to 4TH dose.2019-11-28 06:09:00 Test Item Value Reference Range Interpretation Comments VANCO TROUGH (test code 5.5 ug/mL 10-20 L = 0742226998) LUIS (test code = LUIS) Toxic Range: ?>20 ug/mL 15-20 ug/mL is recommended for severe infection or when Vancomycin LISA is greater than or equal to 2. Lab Interpretation (test Abnormal code = 13642-8) [facility] GLUCOSE (AUTOMATED)2019-11-28 05:10:00 Test Item Value Reference Range Interpretation Comments POCT GLU (test code = 5997553335) 213 mg/dL 70-110 H Lab Interpretation (test code = Abnormal 79225-3) [facility] GLUCOSE (AUTOMATED)2019-11-28 01:10:00 Test Item Value Reference Range Interpretation Comments POCT GLU (test code = 7934964789) 204 mg/dL 70-110 H Lab Interpretation (test code = Abnormal 34886-0) [facility] GLUCOSE (AUTOMATED)2019-11-27 22:11:00 Test Item Value Reference Range Interpretation Comments POCT GLU (test code = 3406689668) 159 mg/dL 70-110 H Lab Interpretation (test code = Abnormal 49247-1) [facility] (NON-REPORTABLE)2019-11-27 21:39:17 These images do not require a Radiology diagnostic report.[facility]MR FOOT LEFT W WO [id number] 14:58:43Soft tissue gas surrounding the first and [...] arim-enhancingplantar medial first digit ulceration. ?Enhancement with K6vnybab increase and mild T1 signal decreas e [...] MTP joints. Norim-enhancing fluid collection is seen. [facility], Radiant Results Inft User - 11/27/2019 9:59 AM CDTEXAM:MRI LEFT FOOT WITH AND WITHOUT IV CONTRAST HISTORY: Osteomyelitis suspected, footswelling, diabetic Please rule outosteomyelitisCOMPARISON: Plain films dated 11/25/2019TECHNIQUE AND FINDINGS:3T multiplanar multiweighted MR imaging of the left foot was performed withutilization of 12cc IV ProHance.Mottled signal voids surrounding the first and second digits with arim-enhancing plantar medial first digit ulceration. Enhancement with J1nwufsb increase and mild T1 signal decrease involve [...] fourth digit distal phalanxgiven ulceration at this site.[facility])2019-11-27 14:04:00 Test Item Value Reference Range Interpretation Comments POCT GLU (test code = 0794296381) 182 mg/dL 70-110 H Lab Interpretation (test code = Abnormal 07476-3) [facility]2020-08-30 12:36:00 Test Item Value Reference Range Interpretation Comments MAGNESIUM (test code = 1234185360) 2.0 mg/dL 1.7-2.4 Lab Interpretation (test code = Normal 43161-2) [facility]ABORH [id number] 12:03:33 Test Item Value Reference Range Interpretation Comments ABO & RH (test code O Positive Performe d at [facility] = 20) Laboratory Serv [facility] [employer] [facility] [place] [address]Bcys Free: [phone] A No. [id number] [facility] METABOLIC PANEL (NA, K, CL, CO2, GLUCOSE, BUN, CREATININE, CA)2019-11-27 11:21:00 Test Item Value Reference Range Interpretation Comments NA (test code = 133 mmol/L 135-145 L 0062189268) K (test code = 2.6 mmol/L 3.5-5 LL 6033789043) CL (test code = 95 mmol/L 98-108 L 6832206648) CO2 TOTAL (test code = 29 mmol/L 23-31 0591908463) AGAP (test code = 2-16 2270215233) BUN (test code = 5 mg/dL 7-23 L 8449563649) GLUCOSE (test code = 187 mg/dL 70-110 H 9160825256) CREATININE (test code = 0.44 mg/dL 0.6-1.25 L 2987154059) CALCIUM (test code = 8.0 mg/dL 8.6-10.6 L 5316110102) eGFR Calculation mL/min/1.73m2 (Non-) (test code = 6975993013) eGFR Calculation mL/min/1.73m2 () (test code = 4910034695) LUIS (test code = LUIS) Association of [...] tests). Lab Interpretation Abnormal (test code = 28967-0) [facility] WITH [id number] 10:21:00 Test Item Value Reference Range Interpretation [...] (test code = 33.7 fL 38.5-51.6 L 42438-7) RDW-CV (test code = 10.9 % 12.1-15.4 L 788-0) PLT (test code = See_Comment H [Automated 777-3) message] The sy stem which generated this result transmitted reference range : 150 - 328 10*3/ ?L. The reference r neno was not used to interpret this result as normal/abnormal . MPV (test code = 9.0 fL 9.8-13 L 82303-0) NRBC/100 WBC (test See_Comment [Automat ed code = 9427026959) message] The system which generated this result transmitted reference range : 0.0 - 10.0 /100 WBCs. The refer ence range was not u sed to interpret th is result as normal/abnormal . NRBC x10^3 (test code <0.01 See_Comment [Auto mated = 9289403569) message] The s ystem which generated this result transmitted reference range : 10*3/?L. The reference range was not used to interpret this result as normal/abnormal . GRAN MAT (NEUT) % 78.2 % (test code = 770-8) IMM GRAN % (test code 0.60 % = 0512617696) LYMPH % (test code = 12.4 % 736-9) MONO % (test code = 7.7 % 5905-5) EOS % (test code = 0.8 % 713-8) BASO % (test code = 0.3 % 706-2) GRAN MAT x10^3(ANC) 8.47 10*3/uL 1.99-6.95 H (test code = 1039554251) IMM GRAN x10^3 (test 0.07 10*3/uL 0-0.06 H code = 9876574994) LYMPH x10^3 (test code 1.34 10*3/uL 1.09-3.23 = 731-0) MONO x10^3 (test code 0.84 10*3/uL 0.36-1.02 = 742-7) EOS x10^3 (test code = 0.09 10*3/uL 0.06-0.53 711-2) BASO x10^3 (test code 0.03 10*3/uL 0.01-0.09 = 704-7) Lab Interpretation Abnormal (test code = 66044-2) [facility] GLUCOSE (AUTOMATED)2019-11-27 10:14:00 Test Item Value Reference Range Interpretation Comments POCT GLU (test code = 4060186260) 172 mg/dL 70-110 H Lab Interpretation (test code = Abnormal 79934-2) [facility]ervilleType and Screen - ONCE [id number] 09:41:31 Test Item Value Reference Range Interpretation Comments ABO & RH (test code O POSITIVE Performe d at [facility] = 20) Laboratory Serv [facility] [employer] [facility] [address] [facility] s [address]Rkui Free: [phone] A No. [id number] IAT (test code = Negative Performed a t [facility] 1185) Laboratory [facility] [address] [facility] s [address]Wrpn Free: [phone] A No. [id number] [facility] GLUCOSE (AUTOMATED)2019-11-27 04:28:00 Test Item Value Reference Range Interpretation Comments POCT GLU (test code = 8672210918) 189 mg/dL 70-110 H Lab Interpretation (test code = Abnormal 66766-4) [facility]ervilleLipid Panel (Total Cholesterol, Triglycerides, HDL) - [id number] 01:28:00 Test Item Value Reference Range Interpretation Comments CHOL (test code = 117 mg/dL 120-200 L 5183529267) HDL (test code = 19 mg/dL >40 L 4065287989) HDLC RATIO (test code = See_Comment H [Au tomated message] 1312568962) The system [employer] generated this result transmit alex reference range : <=5.0. The refe rence range was not u sed to interpret th is result as normal/abnormal . TRIG (test code = 122 mg/dL 30-170 8787115744) LDL CHOL (test code = 74 mg/dL See_Comment [Auto mated message] 44538-1) The system [employer] generated this result transmit alex reference range : <=160. The refe rence range was not u sed to interpret th is result as normal/abnormal . VLDL (test code = 24 mg/dL 5-60 9800950116) Lab Interpretation (test Abnormal code = 83614-9) [facility] GLUCOSE (AUTOMATED)2019-11-27 01:27:00 Test Item Value Reference Range Interpretation Comments POCT GLU (test code = 4725080628) 252 mg/dL 70-110 H Lab Interpretation (test code = Abnormal 57373-9) [facility] GLUCOSE (AUTOMATED)2019-11-26 19:07:00 Test Item Value Reference Range Interpretation Comments POCT GLU (test code = 2922515944) 192 mg/dL 70-110 H Lab Interpretation (test code = Abnormal 13882-7) [facility] GLUCOSE (AUTOMATED)2019-11-26 14:12:00 Test Item Value Reference Range Interpretation Comments POCT GLU (test code = 7149977437) 181 mg/dL 70-110 H Lab Interpretation (test code = Abnormal 82350-0) [facility]ervilleXR FOOT <3 VW [id number] 11:24:50 Soft tissue defect and extensive soft [...] reviewed this study and agree with the abovereport.[facility]ervilleLactic Acid Whole [id number] 09:42:00 Test Item Value Reference Range Interpretation Comments LACTIC ACID (test code = 1.12 mmol/L QUE S 8420071705) [facility]SE (AUTOMATED)2019-11-26 09:38:00 Test Item Value Reference Range Interpretation Comments POCT GLU (test code = 8729898952) 211 mg/dL 70-110 H Lab Interpretation (test code = Abnormal 05322-7) [facility]ervilleGlycosylated Hemoglobin (A1C)2019-11-26 07:30:00 Test Item Value Reference Range Interpretation Comments HGB A1C (test code = 10.8 % 4-6 H 4548-4) LUIS (test code = LUIS) %A1C (NGSP) Interpretation (ADA)4.8-5.6 ? ? Normal or (Non-Diabetic Range)5.7-6.4 ? ? Increased Risk (Pre-Diabetic)>6.5 ?Diabetes Indicated Lab Interpretation Abnormal (test code = 16161-9) [facility] WITH [id number] 03:47:00 Test Item Value Reference Range Interpretation [...] (test code = 33.4 fL 38.5-51.6 L 01661-6) RDW-CV (test code = 10.8 % 12.1-15.4 L 788-0) PLT (test code = See_Comment H [Automated 777-3) message] The system which generated this result transmit alex reference range : 150 - 328 10*3/ ?L. The reference range was not u sed to interpret th is result as normal/abnormal . MPV (test code = 9.5 fL 9.8-13 L 02490-6) NRBC/100 WBC (test See_Comment [Automat ed code = 7464875407) message] The system which generated this result transmit alex reference range : 0.0 - 10.0 /100 WBCs. The reference range was not used to interpret this result as normal/abnormal . NRBC x10^3 (test code <0.01 See_Comment [Auto mated = 9706883314) message] The system which generated this result transmit alex reference range : 10*3/?L. The reference range was not used to interpret this result as normal/abnormal . GRAN MAT (NEUT) % 84.3 % (test code = 770-8) IMM GRAN % (test code 0.90 % = 2157880088) LYMPH % (test code = 7.5 % 736-9) MONO % (test code = 6.8 % 5905-5) EOS % (test code = 0.2 % 713-8) BASO % (test code = 0.3 % 706-2) GRAN MAT x10^3(ANC) 15.55 10*3/uL 1.99-6.95 H (test code = 2400145287) IMM GRAN x10^3 (test 0.16 10*3/uL 0-0.06 H code = 0536476097) LYMPH x10^3 (test code 1.39 10*3/uL 1.09-3.23 = 731-0) MONO x10^3 (test code 1.25 10*3/uL 0.36-1.02 H = 742-7) EOS x10^3 (test code = 0.03 10*3/uL 0.06-0.53 L 711-2) BASO x10^3 (test code 0.05 10*3/uL 0.01-0.09 = 704-7) Lab Interpretation Abnormal (test code = 22928-8) [facility]COVID-19 (ID NOW RAPID TESTING)2019-11-26 03:22:00 Test Item Value Reference Range Interpretation Comments SARS-CoV-2 Rapid ID NOW Not Detected Not Detected (test code = 97178-0) LUIS (test code = LUIS) ID NOW COVID-19 Assay is an isothermal nucleic acid amplification test intended for the qualitative detection of nucleic acid from SARS-CoV-2 viral RNA in nasopharyngeal (SYNTHETIC GEM PRESS OPERATOR) specimens. It is used under Emergency Use [...] indicated. Lab Interpretation Normal (test code = 32072-8) [facility]. METABOLIC PANEL (13781)2019-11-26 02:58:00 Test Item Value Reference Range Interpretation Comments NA (test code = 128 mmol/L 135-145 L 9475128543) K (test code = 3.9 mmol/L 3.5-5 9616655601) CL (test code = 89 mmol/L 98-108 L 1096787917) CO2 TOTAL (test code = 28 mmol/L 23-31 8975756086) AGAP (test code = 2-16 9796088422) BUN (test code = 11 mg/dL 7-23 8462809788) GLUCOSE (test code = 300 mg/dL 70-110 H 5743012514) CREATININE (test code = 0.51 mg/dL 0.6-1.25 L 0855062151) TOTAL BILI (test code = 1.4 mg/dL 0.1-1.1 H 8215126057) CALCIUM (test code = 8.4 mg/dL 8.6-10.6 L 9790143468) T PROTEIN (test code = 7.0 g/dL 6.3-8.2 1803293487) ALBUMIN (test code = 3.5 g/dL 3.5-5 1798797831) ALK PHOS (test code = 119 U/L 34-122 7126229752) ALTv (test code = 40 U/L 5-50 1742-6) AST(SGOT) (test code = 56 U/L 13-40 H 4289345890) eGFR Calculation mL/min/1.73m2 (Non-) (test code = 3045319113) eGFR Calculation mL/min/1.73m2 () (test code = 9107887570) LUIS (test code = LUIS) Association of [...] tests). Lab Interpretation Abnormal (test code = 42970-0) [facility]Lactic Acid Whole [id number] 02:20:00 Test Item Value Reference Range Interpretation Comments LACTIC ACID (test code = 2.59 mmol/L 3112681524) [facility]"
[2022-06-06 21:22] LABS: Absolute Lymphocytes (CBC) 1.4 K/uL (0.7-4.9); Hematocrit 28.3 % (39.6-49.0); Lymphocytes % 17.7 % (15.3-44.8); MPV 6.9 fL (7.6-11.3); RBC Red Blood Cell Count 3.63 M/uL (4.33-5.43)
[2022-06-06 21:26] LABS: Protime INR 1.05
[2022-06-06 21:35] LABS: Albumin 2.6 g/dL (3.4-5.0); Bilirubin Total 0.4 mg/dL (0.2-1.0); Protein, Total 7.9 g/dL (6.4-8.2)
[2022-06-06 21:37] LABS: Potassium 2.9 mmol/L (3.5-5.1)
[2022-06-06] MEDS ORDERED: NA CHLORIDE 0.9% 500 ML ONE (22:27)
[2022-06-06] MEDS ORDERED: VANCOMYCIN 1 GM/VIAL ONE (22:27)
[2022-06-06] MEDS ORDERED: MORPHINE 4 MG/ML SYR ONE (22:27)
--- NOTE | 2022-06-06 22:43 | RAD REPORT ---
EXAM DESCRIPTION: US - UPPER EXTREMITY VENOUS UNILATE - 06/06/2022 9:52 pm CLINICAL HISTORY: Pain, swelling COMPARISON: None. TECHNIQUE: Real-time sonographic evaluation of the left upper extremity deep venous system was perfo rmed. FINDINGS: Normal compressibility, flow augmentation, phasic flow and spontaneous flow is identified in the left upper extremity deep venous system. No intraluminal filling defects seen. IMPRESSION: No DVT in the left upper extremity.
--- NOTE | 2022-06-06 22:46 | RAD REPORT ---
EXAM DESCRIPTION: US - Upper Ext Artery Uni Abimael - 06/06/2022 9:53 pm CLINICAL HISTORY: Pain;Swelling COMPARISON: UPPER EXTREMITY VENOUS UNILATE dated 06/06/2022 TECHNIQUE: Left upper extremity arterial Doppler examination was performed with waveform tracing. FINDINGS: Triphasic waveforms are seen throughout the left upper extremity to the level of the tracheal artery. Monophasic waveforms seen along the radial and ulnar arteries. Moderate plaque formation along the left brachial artery. IMPRESSION: Mild peripheral vascular disease in the distal left upper extremity.
[2022-06-06] MEDS ORDERED: HYDROMORPHONE HCL 1 MG/ML INJ ONE (23:00)
[2022-06-06] MEDS ORDERED: POTASSIUM 25 MEQ EFFERV TAB ONE (23:00)
[2022-06-06] MEDS ORDERED: KCL 20 MEQ/100 mL IVPB 100 ML IV ONE (23:00)
[2022-06-06 23:34] LABS: Urine Bacteria <20 /HPF (<20); Urine RBC <5 /HPF (None Seen)
[2022-06-07 06:11] VITALS: TEMP 98.7
[2022-06-07 06:13] VITALS: O2SAT 99
[2022-06-07 06:16] VITALS: BP 112/60
--- NOTE | 2022-06-09 13:10 | EKG ---
Test Date: 2022-06-06 Test Time: 22:06:22 [place]: [place] MEASUREMENT RESULTS: Intervals: Rate: 83 WA: QRSD: 64 QT: 400 QTc: 470 [place]: P: [place]: QRS: 11 T: 130 INTERPRETIVE STATEMENTS: Sinus rhythm Cannot rule out Inferior infarct, age undetermined ST & T wave abnormality, consider lateral ischemia Abnormal ECG No previous ECG available for comparison Electronically Signed On 06-09-22 13:05:50 CDT by Tru Grant
--- NOTE | 2022-06-20 16:15 | EDPHYS ---
Physician Documentation [facility] Name: Jerson Lopes Age: 56 yrs Sex: Male : 1965 Arrival Date: 06/06/2022 Time: 19:37 Bed 19 Private MD: ED Physician Oc Linares HPI: 06/06 20:45 This 56 yrs old Male presents to ER via Wheelchair with complaints of Wound cp Infection, Post Surgical Pain. 20:45 The patient or guardian reports pain, swelling, tenderness. cp 20:45 The complaints affect the left hand diffusely. Onset: The symptoms/episode cp began/occurred 1 week(s) ago. Patient reports history of left middle finger amputation performed at [facility] in March of 2022. Patient is unsure of physician who performed surgery. 20:45 Associated signs and symptoms: Pertinent negatives: fever. cp Historical: - Allergies: 20:27 No Known Allergies; bb - Home Meds: 20:27 insulin [Active]; bb - PMHx: 20:27 diabetes mellitus; bb - PSHx: 20:27 finger amputation; bb 20:28 hip surgery; bb - Immunization history:: Client reports having NOT received the Covid vaccine. - Social history:: Smoking status: Patient denies any tobacco usage or history of. ROS: 20:50 MS/extremity: Positive for erythema, pain, swelling, tenderness, of the left hand. cp 20:50 Constitutional: Negative for body aches, chills, fever, poor PO intake. cp 20:50 Cardiovascular: Negative for chest pain. 20:50 Respiratory: Negative for cough, shortness of breath, wheezing. 20:50 Abdomen/GI: Negative for abdominal pain, nausea, vomiting, and diarrhea. cp 20:50 Neuro: Negative for altered mental status, headache. 20:50 All other systems are negative. Exam: 20:55 Constitutional: The patient appears in no acute distress, alert, awake, cp non-diaphoretic, non-toxic, well developed, well nourished, uncomfortable. 20:55 Head/Face: Normocephalic, atraumatic. cp 20:55 Eyes: Periorbital structures: appear normal, Conjunctiva: normal, no exudate, no injection, Sclera: no appreciated abnormality, Lids and lashes: appear normal, bilaterally. 20:55 ENT: External ear(s): are unremarkable, Nose: is normal, Mouth: Lips: moist, Oral mucosa: moist, Posterior pharynx: is normal, airway is patent, no erythema, no exudate. 20:55 Chest/axilla: Inspection: normal. 20:55 Cardiovascular: Rate: normal, Rhythm: regular. 20:55 Respiratory: the patient does not display signs of respiratory distress, Respirations: normal, no use of accessory muscles, no retractions, labored breathing, is not present, Breath sounds: are clear throughout, no decreased breath sounds, no stridor, no wheezing. 20:55 Abdomen/GI: Exam negative for discomfort, distension, guarding, Inspection: abdomen appears normal. 20:55 Musculoskeletal/extremity: Extremities: noted in the left hand: middle digit surgically removed, wound appears with purulent drainage, mild erythema and swelling, wound edges with skin necrosis. 22:12 ECG was reviewed by the Attending Physician. Vital Signs: 20:21 BP 161 / 55; Pulse 81; Resp 16 S; Temp 98.7(O); Pulse Ox 100% on R/A; Weight 72.57 kg bb (R); Height 5 ft. 6 in. (R); Pain 10/10; 22:05 BP 185 / 41; Pulse 81; Resp 19; Pulse Ox 98% ; Pain 10/10; jj7 23:00 BP 149 / 120; Pulse 79; Resp 20; Pulse Ox 99% ; Pain 6/10; jj7 11 00:00 BP 112 / 57; Pulse 78; Resp 18; Pulse Ox 99% ; Pain 5/10; jj7 01:01 BP 112 / 60; Pulse 87; Resp 20; Pain 5/10; jj7 10 20:21 Body Mass Index 25.82 (72.57 kg, 167.64 cm) 06/06 20:21 Pain Scale: Adult 22:05 Pain Scale: Adult jj7 23:00 Pain Scale: Adult jj7 06/07 00:00 Pain Scale: Adult jj7 01:01 Pain Scale: Adult jj7 MDM: 06/06 20:33 Patient medically screened. cp 21:00 Differential diagnosis: sepsis, osteomyelitis, cellulitis, arterial occlusion, DVT. cp 23:00 Data reviewed: vital signs, nurses notes, lab test result(s), EKG, radiologic studies, cp ultrasound. 23:00 I considered the following discharge prescriptions or medication management in the emergency department Medications were administered in the Emergency Department. See MAR. Care significantly affected by the following chronic conditions: Diabetes. 23:50 ED course: consult with DR Nolan Gamino \[facility] who will accept transfer to ED after discussing today's exam, labs, EKG and radiology studies. 06/06 20:40 Order name: Blood Culture Adult (2) cp 06/06 20:40 Order name: CBC with Diff; Complete Time: 21:47 cp 06/06 21:48 Interpretation: Normal except: RBC 3.63; HGB 10.0; HCT 28.3; MCV 78.0; RDW 15.9; MPV cp 6.9. 06/06 20:40 Order name: CMP; Complete Time: 21:47 cp 06/06 21:48 Interpretation: Normal except: NA 131; CL 97; GLUC 188; AST 14; ALK 180; ALB 2.6; GLOB cp 5.3; K 2.9; A/G 0.5. 06/06 20:40 Order name: Lactate w/ 2H reflex if indic.; Complete Time: 21:47 cp 06/06 22:19 Interpretation: Reviewed. 06/06 20:40 Order name: Protime (+inr); Complete Time: 21:47 cp 06/06 20:40 Order name: Ptt, Activated; Complete Time: 21:47 06/06 20:40 Order name: Urine Culture 06/06 20:40 Order name: Urine Microscopic Only; Complete Time: 00:00 06/06 20:40 Order name: Wound Culture 06/06 23:17 Order name: SARS-COV-2 RT PCR 06/06 21:54 Order name: UPPER EXTREMITY VENOUS UNILATE; Complete Time: 22:48 EDMS 06/06 22:50 Interpretation: Report reviewed. 06/06 21:55 Order name: Upper Ext Artery Uni Abimael; Complete Time: 22:48 EDMS 06/06 22:49 Interpretation: Report reviewed. 06/06 20:40 Order name: EKG; Complete Time: 20:40 06/06 20:40 Order name: Accucheck 06/06 20:40 Order name: Cardiac monitoring 06/06 20:40 Order name: EKG - Nurse/Tech; Complete Time: 22:45 cp 06/06 20:40 Order name: IV Saline Lock - Large Bore 06/06 20:40 Order name: Labs collected and sent 06/06 20:40 Order name: O2 Per Protocol 06/06 20:40 Order name: O2 Sat Monitoring 06/06 20:40 Order name: Vital Signs 06/06 22:48 Order name: Dressing - Wound: wet to dry; Complete Time: 00:24 cp EC:12 Rate is 83 beats/min. Rhythm is regular. QRS interval is normal. QT interval is normal. cp Interpreted by me. Reviewed by me. Administered Medications: 22:35 Drug: morphine IVP or IV 4 mg Route: IVP; Infused Over: 4 mins; Site: right hand; jj7 22:36 Drug: vancoMYCIN IVPB 1 grams Route: IVPB; Infused Over: 2 hrs; Site: right hand; j7 06/07 01:08 Follow up: IV Status: Completed infusion j7 06/06 23:11 Drug: Potassium PO Effervescent Tablet 50 mEq Route: PO; j7 06/07 01:09 Follow up: Response: No adverse reaction j 06/06 23:11 Drug: HYDROmorphone IVP 1 mg Route: IVP; Site: right hand; j7 06/07 01:09 Follow up: Response: Pain is decreased j 06/06 23:24 Drug: Potassium Chloride IV 20 mEq Route: IV; Rate: calculated rate; Site: right hand; j7 06/07 01:08 Follow up: IV Status: Infusion continued upon transfer jj7 Disposition: 01:20 Chart complete. cp Disposition Summary: 06/06/22 23:38 Transfer Ordered Transfer Location: [facility]System cp Reason: Higher level of care cp Condition: Stable cp Problem: an ongoing problem cp Symptoms: are unchanged cp Accepting Physician: DR. Nolan Gamino(06/07/22 01:11) jj7 Diagnosis - Cellulitis of left upper limb cp - Unspecified open wound of left hand, initial encounter cp Forms: - Medication Reconciliation Form cp - SBAR form cp Addendum: 06/09/2022 08:41 Co-signature as Attending Physician, Oc DEWITT I reviewed the patient's care r n provided by the Advanced Practice Provider and agree with the diagnosis and treatment plan. Signatures: Dispatcher [employer] EDLyndsay Orlando, Oc Obrien RN, MD MD rn Page, Corey, PA PA cp Johnson, Juwairiyah RN RN jj7 Corrections: (The following items were deleted from the chart) 06/06 21:52 20:41 Extremity Venous Uni Ltd+US.RAD.BRZ ordered. EDMS EDMS 21:55 20:41 Lower Extremity Artery Uni Ltd+US.RAD.BRZ ordered. EDMS EDMS 23:37 22:37 SARS-COV-2 Antigen Rapid+I.LAB.BRZ ordered. EDMS EDMS 06/07 00:06 06/06 23:38 Doctor cp 06/07 00:45 06/06 20:45 Patient reports history of left middle finger amputation performed at [facility] in March of 2022. cp 06/07 01:11 00:06 DR. Nolan Gamino jj7
--- NOTE | 2022-06-20 16:15 | ER ---
Nurse's Notes [facility] Name: Jerson Lopes Age: 56 yrs Sex: Male : 1965 Arrival Date: 06/06/2022 Time: 19:37 Bed 19 Private MD: Diagnosis: Cellulitis of left upper limb;Unspecified open wound of left hand, initial encounter Presentation: 06/06 20:21 Chief complaint: Friend and/or Co-Worker states: pt is c/o pain to his left hand 2 bb weeks s/p middle finger amputation. Coronavirus screen: At this time, the client does not indicate any symptoms associated with coronavirus-19. Ebola Screen: No symptoms or risks identified at this time. 20:21 Method Of Arrival: Wheelchair bb 20:26 Initial Sepsis Screen: Does the patient meet any 2 criteria? No. Patient's initial bb sepsis screen is negative. Does the patient have a suspected source of infection? No. Patient's initial sepsis screen is negative. Risk Assessment: Do you want to hurt yourself or someone else? Patient reports no desire to harm self or others. Onset of symptoms was April 2022. 20:26 Acuity: DALILA 2 bb Triage Assessment: 20:28 General: Appears uncomfortable, ill. Pain: Complains of pain in left hand Pain bb currently is 10 out of 10 on a pain scale. Neuro: Level of Consciousness is awake, alert, obeys commands, Oriented to person, place, time, situation. Cardiovascular: Capillary refill < 3 seconds Patient's skin is warm and dry. Respiratory: Respiratory effort is even, unlabored, Respiratory pattern is regular. GI: No signs and/or symptoms were reported involving the gastrointestinal system. Derm: Wound noted left hand. Musculoskeletal: amputation of middle finger to left hand surrounding area erythematous wound bed blackened. 22:04 General: Behavior is calm, cooperative, appropriate for age. jj7 Historical: - Allergies: 20:27 No Known Allergies; bb - Home Meds: 20:27 insulin [Active]; bb - PMHx: 20:27 diabetes mellitus; bb - PSHx: 20:27 finger amputation; bb 20:28 hip surgery; bb - Immunization history:: Client reports having NOT received the Covid vaccine. - Social history:: Smoking status: Patient denies any tobacco usage or history of. Screenin/11 01:05 [facility] ED Fall Risk Assessment (Adult) History of falling in the last 3 months, jj7 including since admission No falls in past 3 months (0 pts) Confusion or Disorientation No (0 pts) Intoxicated or Sedated No (0 pts) Impaired Gait No (0 pts) Mobility Assist Device Used No (0 pt) Altered Elimination No (0 pt) Score/Fall Risk Level 0 - 2 = Low Risk Oriented to surroundings. Abuse screen: Denies threats or abuse. Nutritional screening: No deficits noted. Tuberculosis screening: No symptoms or risk factors identified. Assessment: 06/06 22:04 Reassessment: ASSUMED CARE OF PT. PT MOVED TO BED. OPEN WOUND TO LEFT HAND WHERE HIS jj7 MIDDLE FINGER WAS SURGICALLY REMOVED. C/O OF PAIN TO THE AREA. Derm: Wound noted dorsal aspect of proximal phalanx of left index finger, dorsal aspect of proximal phalanx of left middle finger and dorsal aspect of proximal phalanx of left ring finger Wound is WOUND APPEARS INFECTION. POSS NECROSIS TO LEFT INDEX AND RING FINGER. OPEN WOUND TO AREA WHERE MIDDLE FINGER WAS REMOVED. FILLED WITH WHITE PUS. 06/07 00:28 Reassessment: REPORT GIVEN TO ALEXANDER TOLEDO AT [facility]. jj7 Vital Signs: 06/06 20:21 BP 161 / 55; Pulse 81; Resp 16 S; Temp 98.7(O); Pulse Ox 100% on R/A; Weight 72.57 kg bb (R); Height 5 ft. 6 in. (R); Pain 10/; 22:05 BP 185 / 41; Pulse 81; Resp 19; Pulse Ox 98% ; Pain 10/10; jj7 23:00 BP 149 / 120; Pulse 79; Resp 20; Pulse Ox 99% ; Pain 6/10; jj7 06/07 00:00 BP 112 / 57; Pulse 78; Resp 18; Pulse Ox 99% ; Pain 5/10; jj7 01:01 BP 112 / 60; Pulse 87; Resp 20; Pain 5/10; jj7 06/06 20:21 Body Mass Index 25.82 (72.57 kg, 167.64 cm) 06/06 20:21 Pain Scale: Adult 22:05 Pain Scale: Adult jj7 23:00 Pain Scale: Adult jj7 06/07 00:00 Pain Scale: Adult jj7 01:01 Pain Scale: Adult jj7 ED Course: 06/06 19:37 Patient arrived in ED. jj6 19:40 Peterson Narayanan PA is PHCP. cp 19:40 Oc Linares MD is Attending Physician. cp 20:27 Triage completed. bb 20:28 Arm band placed on Patient placed in an internal wait recliner. bb 21:08 Inserted saline lock: 22 gauge hand, using aseptic technique. Blood collected. oe 21:54 UPPER EXTREMITY VENOUS UNILATE In Process Unspecified. EDMS 21:55 Upper Ext Artery Uni Abimael In Process Unspecified. EDMS 22:01 Griselda Izquierdo, [place] is Primary Nurse. j7 23:03 Initiated transfer to [facility] per pt request, spoke with Pamela. 23:24 Wound Culture Sent. j 23:29 SARS-COV-2 RT PCR Sent. 23:29 COVID swab sent to lab. 06/07 00:04 Pt accepted for transfer by Stevenson Jensen \\T\\ 0002 per Pamela Kerr. 01:06 No provider procedures requiring assistance completed. Patient transferred, IV remains jj7 in place. 01:07 Patient has correct armband on for positive identification. jj7 Administered Medications: 06/06 22:35 Drug: morphine IVP or IV 4 mg Route: IVP; Infused Over: 4 mins; Site: right hand; jj7 22:36 Drug: vancoMYCIN IVPB 1 grams Route: IVPB; Infused Over: 2 hrs; Site: right hand; jj7 06/07 01:08 Follow up: IV Status: Completed infusion j7 06/06 23:11 Drug: Potassium PO Effervescent Tablet 50 mEq Route: PO; jj7 06/07 01:09 Follow up: Response: No adverse reaction j7 06/06 23:11 Drug: HYDROmorphone IVP 1 mg Route: IVP; Site: right hand; jj7 06/07 01:09 Follow up: Response: Pain is decreased jj7 06/06 23:24 Drug: Potassium Chloride IV 20 mEq Route: IV; Rate: calculated rate; Site: right hand; jj7 06/07 01:08 Follow up: IV Status: Infusion continued upon transfer jj7 Medication: 01:07 VIS not applicable for this client. jj7 Outcome: 06/06 23:38 ER care complete, transfer ordered by MD. singh 06/07 01:06 Transferred by ground EMS to [facility], Transfer form jj7 completed. X-rays sent w/ patient. Condition: improved Instructed on the need for transfer. 01:11 Patient left the ED. jj7 Addendum: 06/12/2022 09:35 Addendum: Culture Results: Positive wound culture. Prescription called-in to pharmacy a a[facility] of choice. to [facility] pharmacy in [place], [place] per pt's request, called in Levaquin 500mg PO daily x 7 days per Elisabeth Headley NP. Pt reported he was d/c'd home 06/11/22 from [facility] without any prescriptions, pt states "[facility] said they were going to call me next week to schedule surgery". Signatures: Dispatcher [employer] EDMS Lyndsay Cadet, RN RN Judith Escobedo RN RN aa5 Peterson Narayanan PA PA cp Espinosa, Orlando oe Marsh, Wendy wm Jeffries, Jennifer jj6 Griselda Izquierdo RN RN jj7 Corrections: (The following items were deleted from the chart) 06/06 21:52 21:52 In radiology for Extremity Venous Uni Ltd+US.RAD.BRZ. EDMS EDMS 21:55 21:52 In radiology for Lower Extremity Artery Uni Ltd+US.RAD.BRZ. EDMS EDMS 23:37 23:11 SARS-COV-2 Antigen Rapid+I.LAB.BRZ drawn and sent. jj7 EDNC 06/07 00:59 06/06 22:41 BP 185 / 41; Pulse 81bpm; Resp 19bpm; Pulse Ox 98%; Pain 01/06, Adult; jj7 j7 06/12 09:51 09:35 Addendum: Culture Results: Positive wound culture. Prescription called-in to aa pharmacy of choice. to [facility] pharmacy in [place], [place] per pt's request, called in Levaquin 500mg PO daily x 7 days. Pt reported he was d/c'd home 06/11/22 from [facility] without any prescriptions, pt states "[facility] said they were going to call me next week to schedule surgery". aa5
== END 2022-06-07 01:11 | disposition short-term general hospital (02) ==
LOC: ER 19:33
DX: L03.114 Cellulitis of left upper limb (principal); S61.402A Unspecified open wound of left hand, initial encounter; Z89.022 Acquired absence of left finger(s)
CPT/HCPCS: 36415; 80053; 81015; 83605; 85025; 85610; 85730; 87040; 87070; 87077; 87086; 87088; 87186; 87205; 93005; 93931; 93971; 96365; 96366; 96375; 99285; J1170; J3480; J7040; U0003

== ENCOUNTER 2022-06-17 11:41 | Emergency (ER) | payer SELFPAY ==
--- OUTSIDE RECORDS SUMMARY | 2022-06-17 12:09 | XMS REPORT | Continuity of Care Document ---
:1965 Author Organization [facility] t Address [address] [place] [address] Care Team Providers Name Role Phone Lida Suarez Primary Care Physician [phone] MEREDITH ADHIKARI Attending Clinician Unavailable RASHID BRAUN Attending Clinician Unavailable MAGALY FOOTE Attending Clinician Unavailable Magaly Foote MD Attending Clinician JULIUS GAMINO Attending Clinician Unavailable Julius Gamino MD Attending Clinician Alexandra Burroughs Attending Clinician BOB, [facility] Attending Clinician Unavailable Missael TOLEDO, Camila Attending Clinician Rashid Braun MD Attending Clinician Doctor Unassigned, [place] Attending Clinician Unavailable Tatiana Rincon LVN Attending Clinician BUNNY DE PAZ Attending Clinician Unavailable Jeromy Daigle MD Attending Clinician Parish Grimes DO Attending Clinician Azucena Lawrence MD Attending Clinician Bunny De Paz MD Attending Clinician Polo Mulligan MD Attending Clinician Neel DEWITT, Js Attending Clinician [phone] DHEERAJ BARRIOS Attending Clinician Unavailable Dheeraj Barrios MD Attending Clinician Lázaro DEWITT, Franklyn Attending Clinician Evan DEWITT, Fede Attending Clinician Behzad Williamson MD Attending Clinician Aranza DEWITT, Sriram Attending Clinician Bryan Padron MD Attending Clinician [facility], Care Transition Attending Clinician Unavailable Bob DEWITT, [facility] Aren Attending Clinician ELVIA ESTRADA Attending Clinician Unavailable Elvia Estrada MD Attending Clinician MIKY FAJARDO Attending Clinician Unavailable Miky Fajardo MD Attending Clinician LOUIE WARREN Attending Clinician Unavailable Louie Curiel Attending Clinician Yadira Nick MD Attending Clinician YADIRA NICK Attending Clinician Unavailable EDA AUGUSTINE Attending Clinician Unavailable Francisco Johansen MD Attending Clinician Kam MCKEONSWPaula Attending Clinician Sai Lomas MD Attending Clinician JULIUS GAMINO Admitting Clinician Unavailable Julius Gamino MD Admitting Clinician PARISH GRIMES Admitting Clinician Unavailable Parish Grimes DO Admitting Clinician BUNNY DE PAZ Admitting Clinician Unavailable Bunny De Paz MD Admitting Clinician ELVIA ESTRADA Admitting Clinician Unavailable LOUIE WARREN Admitting Clinician Unavailable Sai Lomas MD Admitting Clinician Payers Payer Name Policy Type Policy Number Effective Date Expiration Date S ource MEDICAID PRISCILLA PENDING 2022 PENDING 00:00:00 Problems Condition Condition Condition Status Onset Resolution Last Treating Co mments Source Name Details Category Date Date Treatment Clinician Date Abscess of Abscess of Disease Active U nivers finger of finger of 1-03 ity of left hand left hand 00:00: Medical Branch Left Left Disease Active 2021-03 Univers displaced displaced 2-29 ity of femoral femoral 00:00: [place] neck neck 00 Medical fracture fracture Branch Obesity Obesity Disease Active 2021-03 Univers (BMI (BMI 2-06 ity of 30-39.9) 30-39.9) 00:00: [place] [facility] Gangrene Gangrene Disease Active 2021-03 Unive rs of finger of finger 2-06 ity of of left of left 00:00: [place] hand hand 00 Medical Branch S/P S/P Disease Active 2020-0 Univers amputation amputation 9-22 it y of of foot, of foot, 00:00: [facility] left 00 Medical Branch S/P S/P Disease Active 2020-0 Univers amputation amputation 9-22 it y of of foot, of foot, 00:00: [facility] left 00 Medical Branch 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 9- it y of emia emia 00:00: [place] [facility] Disease Active 2020-0 Unive rs discharge discharge 9-22 ity of follow-up follow-up 00:00: s Medical Branch Need for Need for Disease Active 2020-0 Unive rs influenza influenza 9- ity of vaccinatio vaccinatio [place] Need for Need for Disease Active 2020-0 Unive rs Tdap Tdap 9- ity of vaccinatio vaccinatio [place] [facility] Diabetes Diabetes Disease Active 2020-0 Unive rs mellitus mellitus 8-29 ity of type 2, type 2, 00:00: [place] insulin insulin 00 Medical dependent dependent Bran ch Gangrene Gangrene Disease Active 2020-0 Unive rs of toe of of toe of 8-29 ity of left foot left foot 00:00: s Medical Branch Bandemia Bandemia Disease Active 2020-0 Unive rs 8-29 ity of 00:00: Medical Branch Lactic Lactic Disease Active 2020-0 Univers acidosis acidosis 8- ity of 00:00: Medical Branch Essential Essential Disease Active 2020 Uni vers hypertensi hypertensi 11-25 it y of on on 00:: Medical Branch Leukocytos Leukocytos Disease Active 2020- U nivers is is 11-25 ity of 00:: Medical Branch Hyponatrem Hyponatrem Disease Active 2020-0 U nivers ia ia 11-25 ity of 00:00: Medical Branch Gangrene Gangrene Disease Active Unive [...] foot of foot 00:00: g of this note Medical might be Branch different from the original. Added automatic ally from request for surgery [id number] Cellulitis Cellulitis Disease Active U nivers of finger of finger 06-29 ity of of right of right 00:00: [place] hand hand 00 Medical Branch Allergies, Adverse Reactions, Alerts Allergy Allergy Status Severity Reaction(s) Onset Inactive Treating Comm ents Source Name Type Date Date Clinician NO KNOWN Drug Active Univers ALLERGIE Class ity of S [facility] Family History Family Member Diagnosis Comments Start Date Stop Date Source Natural brother [facility] Natural mother Diabetes [facility] Natural sister Diabetes [facility] Social History Social Habit Start Date Stop Date Quantity Comments Source History SDOH Social Unive rsity of [facility] Med ical Together Branch History SDOH Social Unive rsity of [facility] Medical Branch History SDOH Social Unive rsity of [facility] Medical Membership Branch History SDOH Social Unive rsity of [facility] Medical Meetings Branch Exposure to 2022-06-01 2022-06-11 Not sure [facility]-CoV-2 (event) 00:00:00 09:53:00 [facility] Alcohol intake 2022-05-15 2022-05-15 .29 /d University of 00:00:00 00:00:00 [place] [facility] History SDIL 2022-03-28 2022-03-28 2 University o f Alcohol Frequency 00:00:00 00:00:00 [facility] edical Branch History SDIL 2022-03-28 2022-03-28 1 University o f Alcohol Std Drinks 00:00:00 00:00:00 [place] [facility] History SDOH 2022-03-28 2022-03-28 2 University o f Alcohol Binge 00:00:00 00:00:00 [place] Medic al Branch History SDIL Social 2022-03-28 2022-03-28 5 Unive rsity of Connections Phone 00:00:00 00:00:00 [facility] edical Branch History SDIL Social 2022-03-28 2022-03-28 7 Unive rsity of Connections Living 00:00:00 00:00:00 [place] [facility] History SDIL 2022-03-28 2022-03-28 4 University o f Financial 00:00:00 00:00:00 [place] [facility] History SDIL Food 2022-03-28 2022-03-28 1 Univers ity of Worry 00:00:00 00:00:00 [place] [facility] History SDIL Food 2022-03-28 2022-03-28 1 Univers ity of Scarcity 00:00:00 00:00:00 [place] [facility] History SDIL 2022-03-28 2022-03-28 2 University o f Transport Med 00:00:00 00:00:00 [place] Medic al Branch History SDIL 2022-03-28 2022-03-28 2 University o f Transport Non-Med 00:00:00 00:00:00 [facility] edical Branch Tobacco use and 2022-02-12 2022-02-12 Smokeless Universit y of exposure 00:00:00 00:00:00 tobacco non-user [facility] Azleal Seymour Sex [birth year] Universit y of 00:00:00 00:00:00 [facility] Smoking Status Start Date Stop Date Source Never smoked tobacco [facility] Medications Ordered Filled Start Stop Current Ordering Indication Dosage Frequency Signature Comments Components Source Medication Medication Date Date Medication? Clinician (SIG) Name Name traMADoL 50 2022-0 2022- Yes [id number] 50mg Take 1 Uni vers mg tablet 3-11 03-15 tablet by ity of 00:00: 04:59 [facility] [place] 00 :00 every 6 Medical (six) Branch hours as needed for Pain (scale 4-6) or Pain (scale 7-10) for up to 3 days. Indication s: acute pain sodium 2022- Yes [id number] 10mL Apply 10 U nivers hypochlorit 2-15 09-04 mL to ity of e 0.025% 00:00: 04:59 area(s) [facility] 00 :00 daily for Medical solution 200 days. Branch sodium 2022- Yes [id number] 10mL Apply 10 U nivers hypochlorit 2-15 09-04 mL to ity of e 0.025% 00:00: 04:59 [facility] 00 :00 daily for Medical solution 200 days. Branch sodium 2022- Yes [id number] 10mL Apply 10 U nivers hypochlorit 2-15 09-04 mL to ity of e 0.025% 00:00: 04:59 [facility]) [facility] 00 :00 daily for Medical solution 200 days. Branch sodium 2022- Yes [id number] 10mL Apply 10 U nivers hypochlorit 2-15 09-04 mL to ity of e 0.025% 00:00: 04:59 [facility] 00 :00 daily for Medical solution 200 days. Branch sodium 2022- Yes [id number] 10mL Apply 10 U nivers hypochlorit 2-15 09-04 mL to ity of e 0.025% 00:00: 04:59 [facility] 00 :00 daily for Medical solution 200 days. Branch sodium 2022- Yes [id number] 10mL Apply 10 U nivers hypochlorit 2-15 09-04 mL to ity of e 0.025% 00:00: 04:59 area(s) [facility] 00 :00 daily for Medical solution 200 days. Branch sodium 2022- Yes [id number] 10mL Apply 10 U nivers hypochlorit 2-15 09-04 mL to ity of e 0.025% 00:00: 04:59 area(s) [facility] 00 :00 daily for Medical solution 200 days. Branch sodium 2022- Yes [id number] 10mL Apply 10 U nivers hypochlorit 2-15 09-04 mL to ity of e 0.025% 00:00: 04:59 [facility] 00 :00 daily for Medical solution 200 days. Branch ergocalcife 2022- Yes [id number] Take 1 Univers rol, 1-15 03-17 capsule by ity of vitamin d2, 00:00: 04:[place] 1,250 [place] 00 :00 weekly for Medi shade (50,000 60 days. Branch unit) capsule ergocalcife 2022- Yes [id number] Take 1 Univers rol, 1-15 03-17 capsule by ity of vitamin d2, 00:00: 04:59 [place] 1,250 mcg 00 :00 weekly for Medi shade (50,000 60 days. Branch unit) capsule ergocalcife 2022- Yes [id number] Take 1 Univers rol, 1-15 03-17 capsule by ity of vitamin d2, 00:00: 04:59 [place] 1,250 mcg 00 :00 weekly for Medi shade (50,000 60 days. Branch unit) capsule ergocalcife 2022- Yes [id number] Take 1 Univers rol, 1-15 03-17 capsule by ity of vitamin d2, 00:00: 04:59 [place] 1,250 mcg 00 :00 weekly for Medi shade (50,000 60 days. Branch unit) capsule ergocalcife 2022- Yes [id number] Take 1 Univers rol, 1-15 03-17 capsule by ity of vitamin d2, 00:00: 04:59 [place] 1,250 mcg 00 :00 weekly for Medi shade (50,000 60 days. Branch unit) capsule ergocalcife 2022- Yes [id number] Take 1 Univers rol, 1-15 03-17 capsule by ity of vitamin d2, 00:00: 04:59 [place] 1,250 mcg 00 :00 weekly for Medi shade (50,000 60 days. Branch unit) capsule ergocalcife 2022-0 2022- Yes [id number] Take 1 Univers rol, 1-15 03-17 capsule by ity of vitamin d2, 00:00: 04:59 [place] 1,250 mcg 00 :00 weekly for Medi shade (50,000 60 days. Branch unit) capsule ergocalcife 2022-0 2022- Yes [id number] Take 1 Univers rol, 1-15 03-17 capsule by ity of vitamin d2, 00:00: 04:59 [place] 1,250 mcg 00 :00 weekly for Medi shade (50,000 60 days. Branch unit) capsule ergocalcife 2022-0 2022- Yes [id number] Take 1 Univers rol, 1-15 03-17 capsule by ity of vitamin d2, 00:00: 04:59 [place] 1,250 mcg 00 :00 weekly for Medi shade (50,000 60 days. Branch unit) capsule ergocalcife 2022-0 2022- Yes [id number] Take 1 Univers rol, 1-15 03-17 capsule by ity of vitamin d2, 00:00: 04:59 [place] 1,250 mcg 00 :00 weekly for Medi shade (50,000 60 days. Branch unit) capsule ergocalcife 2022-0 2022- Yes [id number] Take 1 Univers rol, 1-15 03-17 capsule by ity of vitamin d2, 00:00: 04:59 [place] 1,250 mcg 00 :00 weekly for Medi shade (50,000 60 days. Branch unit) capsule ergocalcife 2022-0 2022- Yes [id number] Take 1 Univers rol, 1-15 03-17 capsule by ity of vitamin d2, 00:00: 04:59 [place] 1,250 mcg 00 :00 weekly for Medi shade (50,000 60 days. Branch unit) capsule ergocalcife 3-0 2022- Yes [id number] Take 1 Univers rol, 1-15 03-17 capsule by ity of vitamin d2, 00:00: 04:59 [place] 1,250 mcg 00 :00 weekly for Medi shade (50,000 60 days. Branch unit) capsule ergocalcife 2022- Yes [id number] Take 1 Univers rol, 1-15 03-17 capsule by ity of vitamin d2, 00:00: 04:59 [place] 1,250 mcg 00 :00 weekly for Medi shade (50,000 60 days. Branch unit) capsule ergocalcife 2022- Yes [id number] Take 1 Univers rol, 1-15 03-17 capsule by ity of vitamin d2, 00:00: 04:59 [place] 1,250 mcg 00 :00 weekly for Medi shade (50,000 60 days. Branch unit) capsule ergocalcife 2022- Yes [id number] Take 1 Univers rol, 1-15 03-17 capsule by ity of vitamin d2, 00:00: 04:59 [place] 1,250 mcg 00 :00 weekly for Medi shade (50,000 60 days. Branch unit) capsule ergocalcife 2022- Yes [id number] Take 1 Univers rol, 1-15 03-17 capsule by ity of vitamin d2, 00:00: 04:59 [place] 1,250 mcg 00 :00 weekly for Medi shade (50,000 60 days. Branch unit) capsule ergocalcife 2022- Yes [id number] Take 1 Univers rol, 1-15 03-17 capsule by ity of vitamin d2, 00:00: 04:59 [place] 1,250 mcg 00 :00 weekly for Medi shade (50,000 60 days. Branch unit) capsule ergocalcife 2022- Yes [id number] Take 1 Univers rol, 1-15 03-17 capsule by ity of vitamin d2, 00:00: 04:59 [place] 1,250 mcg 00 :00 weekly for Medi shade (50,000 60 days. Branch unit) capsule ergocalcife 2022- Yes [id number] Take 1 Univers rol, 1-15 03-17 capsule by ity of vitamin d2, 00:00: 04:59 [place] 1,250 mcg 00 :00 weekly for Medi shade (50,000 60 days. Branch unit) capsule lisinopriL Yes [id number] 20mg Take 1 Univers 20 mg 1-10 tablet by ity of tablet 00:00: mouth [place] 00 daily. Medical Branch lisinopriL 2022-0 Yes [id number] 20mg Take 1 Univers 20 mg 1-10 tablet by ity of tablet 00:00: mouth [place] 00 daily. Medical Branch lisinopriL 2022-0 Yes [id number] 20mg Take 1 Univers 20 mg 1-10 tablet by ity of tablet 00:00: mouth [place] 00 daily. Medical Branch lisinopriL 2022-0 Yes [id number] 20mg Take 1 Univers 20 mg 1-10 tablet by ity of tablet 00:00: mouth [place] 00 daily. Medical Branch lisinopriL 2022-0 Yes [id number] 20mg Take 1 Univers 20 mg 1-10 tablet by ity of tablet 00:00: mouth [place] 00 daily. Medical Branch lisinopriL 2022-0 Yes [id number] 20mg Take 1 Univers 20 mg 1-10 tablet by ity of tablet 00:00: mouth [place] 00 daily. Medical Branch lisinopriL 2022-0 Yes [id number] 20mg Take 1 Univers 20 mg 1-10 tablet by ity of tablet 00:00: mouth [place] 00 daily. Medical Branch lisinopriL 2022-0 Yes [id number] 20mg Take 1 Univers 20 mg 1-10 tablet by ity of tablet 00:00: mouth [place] 00 daily. Medical Branch lisinopriL 2022-0 Yes [id number] 20mg Take 1 Univers 20 mg 1-10 tablet by ity of tablet 00:00: mouth [place] 00 daily. Medical Branch lisinopriL 2022-0 Yes [id number] 20mg Take 1 Univers 20 mg 1-10 tablet by ity of tablet 00:00: mouth [place] 00 daily. Medical Branch lisinopriL 2022-0 Yes [id number] 20mg Take 1 Univers 20 mg 1-10 tablet by ity of tablet 00:00: mouth [place] 00 daily. Medical Branch lisinopriL 2022-0 Yes [id number] 20mg Take 1 Univers 20 mg 1-10 tablet by ity of tablet 00:00: mouth [place] 00 daily. Medical Branch lisinopriL 2022-0 Yes [id number] 20mg Take 1 Univers 20 mg 1-10 tablet by ity of tablet 00:00: mouth [place] 00 daily. Medical Branch lisinopriL 2022-0 Yes [id number] 20mg Take 1 Univers 20 mg 1-10 tablet by ity of tablet 00:00: mouth [place] 00 daily. Medical Branch lisinopriL 2022-0 Yes [id number] 20mg Take 1 Univers 20 mg 1-10 tablet by ity of tablet 00:00: mouth [place] 00 daily. [facility] Branch lisinopriL 0 Yes [id number] 20mg Take 1 Univers 20 mg 1-10 tablet by ity of tablet 00:00: mouth [place] 00 daily. [facility] Branch lisinopriL 0 Yes [id number] 20mg Take 1 Univers 20 mg 1-10 tablet by ity of tablet 00:00: mouth [place] 00 daily. [facility] Branch lisinopriL 0 Yes [id number] 20mg Take 1 Univers 20 mg 1-10 tablet by ity of tablet 00:00: mouth [place] 00 daily. [facility] Branch lisinopriL 0 Yes [id number] 20mg Take 1 Univers 20 mg 1-10 tablet by ity of tablet 00:00: mouth [place] 00 daily. [facility] Branch lisinopriL 0 Yes [id number] 20mg Take 1 Univers 20 mg 1-10 tablet by ity of tablet 00:00: mouth [place] 00 daily. [facility] Branch pantoprazol 2022- Yes [id number] 40mg Take 1 Univers e 40 mg EC 1-10 -11 tablet by ity of tablet 00:00: 04:59 mouth [place] 00 :00 daily for Medical 90 days. Branch pantoprazol 2022- Yes [id number] 40mg Take 1 Univers e 40 mg EC 1-10 -11 tablet by ity of tablet 00:00: 04:59 mouth [place] 00 :00 daily for Medical 90 days. Branch pantoprazol 2022- Yes [id number] 40mg Take 1 Univers e 40 mg EC 1-10 -11 tablet by ity of tablet 00:00: 04:59 mouth [place] 00 :00 daily for Medical 90 days. Branch pantoprazol 2022- Yes [id number] 40mg Take 1 Univers e 40 mg EC 1-10 -11 tablet by ity of tablet 00:00: 04:59 mouth [place] 00 :00 daily for Medical 90 days. Branch pantoprazol 2022- Yes [id number] 40mg Take 1 Univers e 40 mg EC 04-0811 tablet by ity of tablet 00:00: 04:59 mouth [place] 00 :00 daily for Medical 90 days. Branch pantoprazol 2022- Yes [id number] 40mg Take 1 Univers e 40 mg EC 04-0811 tablet by ity of tablet 00:00: 04:59 mouth [place] 00 :00 daily for Medical 90 days. Branch pantoprazol 2022- Yes [id number] 40mg Take 1 Univers e 40 mg EC 04-08 tablet by ity of tablet 00:00: 04:59 mouth [place] 00 :00 daily for Medical 90 days. Branch pantoprazol 2022- Yes [id number] 40mg Take 1 Univers e 40 mg EC 04-08 tablet by ity of tablet 00:00: 04:59 mouth [place] 00 :00 daily for Medical 90 days. Branch pantoprazol 2022- Yes [id number] 40mg Take 1 Univers e 40 mg EC 04-08 tablet by ity of tablet 00:00: 04:59 mouth [place] 00 :00 daily for Medical 90 days. Branch pantoprazol 2022- Yes [id number] 40mg Take 1 Univers e 40 mg EC 04-08 tablet by ity of tablet 00:00: 04:59 mouth [place] 00 :00 daily for Medical 90 days. Branch pantoprazol 2022- Yes [id number] 40mg Take 1 Univers e 40 mg EC 04-08 tablet by ity of tablet 00:00: 04:59 mouth [place] 00 :00 daily for Medical 90 days. Branch pantoprazol 2022- Yes [id number] 40mg Take 1 Univers e 40 mg EC 04-0811 tablet by ity of tablet 00:00: 04:59 mouth [place] 00 :00 daily for Medical 90 days. Branch pantoprazol 2022- Yes [id number] 40mg Take 1 Univers e 40 mg EC 04-0811 tablet by ity of tablet 00:00: 04:59 mouth [place] 00 :00 daily for Medical 90 days. Branch pantoprazol 2022- Yes [id number] 40mg Take 1 Univers e 40 mg EC 04-0811 tablet by ity of tablet 00:00: 04:59 mouth [place] 00 :00 daily for Medical 90 days. Branch pantoprazol 2022- Yes [id number] 40mg Take 1 Univers e 40 mg EC 04-0811 tablet by ity of tablet 00:00: 04:59 mouth [place] 00 :00 daily for Medical 90 days. Branch pantoprazol 2022- Yes [id number] 40mg Take 1 Univers e 40 mg EC 04-08 tablet by ity of tablet 00:00: 04:59 mouth [place] 00 :00 daily for Medical 90 days. Branch pantoprazol 2022- Yes [id number] 40mg Take 1 Univers e 40 mg EC 04-08 tablet by ity of tablet 00:00: 04:59 mouth [place] 00 :00 daily for Medical 90 days. Branch pantoprazol 2022- Yes [id number] 40mg Take 1 Univers e 40 mg EC 04-08 tablet by ity of tablet 00:00: 04:59 mouth [place] 00 :00 daily for Medical 90 days. Branch pantoprazol 2022- Yes [id number] 40mg Take 1 Univers e 40 mg EC 04-08 tablet by ity of tablet 00:00: 04:59 mouth [place] 00 :00 daily for Medical 90 days. Branch pantoprazol 2022- Yes [id number] 40mg Take 1 Univers e 40 mg EC 04-08 tablet by ity of tablet 00:00: 04:59 mouth [place] 00 :00 daily for Medical 90 days. Jay lisinopriL 2022- No [id number] 40mg Take 2 Univers 20 mg 04-08 tablets by ity of tablet 00:00: 00:00 mouth [place] 00 :00 daily for Medical 90 days. Jay sodium Yes 16[oz_a 16 oz, Univer s hypochlorit 04-07 v] Topical, ity of e 0.5% 18:45: BID, First (DAKINS) 00 dose on Medical solution 16 Mon 04/07/22 Br anch oz at 1245, Until Discontinu ed, Routine pantoprazol Yes 40mg 40 mg, Univ ers e 1-09 Oral, ity of (PROTONIX) 15:00: DAILY, [place] EC tablet 00 First dose Medi shade 40 mg on Mon Branch 04/07/22 at 0900, Until Discontinu ed, Routine sodium 2023-0 Yes [id number] 16[oz_a Apply 473 Univers hypochlorit 1-09 v] mL to ity of e 0.5% 00:00: area(s) 2 [place] solution 00 (two) Medical times Branch daily. sodium 2023-0 Yes [id number] 16[oz_a Apply 473 Univers hypochlorit 1-09 v] mL to ity of e 0.5% 00:00: area(s) 2 [place] solution 00 (two) Medical times Branch daily. sodium 2023-0 Yes [id number] 16[oz_a Apply 473 Univers hypochlorit 1-09 v] mL to ity of e 0.5% 00:00: area(s) 2 [place] solution 00 (two) Medical times Branch daily. sodium 2023-0 Yes [id number] 16[oz_a Apply 473 Univers hypochlorit 1-09 v] mL to ity of e 0.5% 00:00: area(s) 2 [place] solution 00 (two) Medical times Branch daily. sodium 2023-0 Yes [id number] 16[oz_a Apply 473 Univers hypochlorit 1-09 v] mL to ity of e 0.5% 00:00: area(s) 2 [place] solution 00 (two) Medical times Branch daily. sodium 2023-0 Yes [id number] 16[oz_a Apply 473 Univers hypochlorit 1-09 v] mL to ity of e 0.5% 00:00: area(s) 2 [place] solution 00 (two) Medical times Branch daily. sodium 2023-0 Yes [id number] 16[oz_a Apply 473 Univers hypochlorit 1-09 v] mL to ity of e 0.5% 00:00: area(s) 2 [place] solution 00 (two) Medical times Branch daily. sodium 2023-0 Yes [id number] 16[oz_a Apply 473 Univers hypochlorit 1-09 v] mL to ity of e 0.5% 00:00: area(s) 2 [place] solution 00 (two) Medical times Branch daily. sodium 2023-0 Yes [id number] 16[oz_a Apply 473 Univers hypochlorit 1-09 v] mL to ity of e 0.5% 00:00: area(s) 2 [place] solution 00 (two) Medical times Branch daily. sodium 2023-0 Yes [id number] 16[oz_a Apply 473 Univers hypochlorit 1-09 v] mL to ity of e 0.5% 00:00: area(s) 2 [place] solution 00 (two) Medical times Branch daily. sodium 2023-0 Yes [id number] 16[oz_a Apply 473 Univers hypochlorit 1-09 v] mL to ity of e 0.5% 00:00: area(s) 2 [place] solution 00 (two) Medical times Branch daily. sodium 2023-0 Yes [id number] 16[oz_a Apply 473 Univers hypochlorit 1-09 v] mL to ity of e 0.5% 00:00: area(s) 2 [place] solution 00 (two) Medical times Branch daily. sodium 2023-0 Yes [id number] 16[oz_a Apply 473 Univers hypochlorit 1-09 v] mL to ity of e 0.5% 00:00: area(s) 2 [place] solution 00 (two) Medical times Branch daily. sodium 2023-0 Yes [id number] 16[oz_a Apply 473 Univers hypochlorit 1-09 v] mL to ity of e 0.5% 00:00: area(s) 2 [place] solution 00 (two) Medical times Branch daily. sodium 2023-0 Yes [id number] 16[oz_a Apply 473 Univers hypochlorit 1-09 v] mL to ity of e 0.5% 00:00: area(s) 2 [place] solution 00 (two) Medical times Branch daily. sodium 2023-0 Yes [id number] 16[oz_a Apply 473 Univers hypochlorit 1-09 v] mL to ity of e 0.5% 00:00: area(s) 2 [place] solution 00 (two) Medical times Branch daily. sodium 2023-0 Yes [id number] 16[oz_a Apply 473 Univers hypochlorit 1-09 v] mL to ity of e 0.5% 00:00: area(s) 2 [place] solution 00 (two) Medical times Branch daily. sodium 2022-0 Yes [id number] 16[oz_a Apply 473 Univers hypochlorit 1-09 v] mL to ity of e 0.5% 00:00: area(s) 2 [place] solution 00 (two) Medical times Branch daily. sodium 3-0 Yes [id number] 16[oz_a Apply 473 Univers hypochlorit 1-09 v] mL to ity of e 0.5% 00:00: area(s) 2 [place] solution 00 (two) Medical times Branch daily. sodium 3-0 Yes [id number] 16[oz_a Apply 473 Univers hypochlorit 1-09 v] mL to ity of e 0.5% 00:00: area(s) 2 [place] solution 00 (two) Medical times Branch daily. amLODIPine 2022- Yes [id number] 5mg Take 1 Univers 5 mg tablet 04-07-10 tablet by it y of 00:00: 04:59 mouth [place] 00 :00 daily for Medical 90 days. Branch carvediloL 2022- Yes [id number] 25mg Take 1 [facility] 25 mg 04-07-10 tablet by ity of tablet 00:00: 04:59 mouth 2 [place] 00 :00 (two) Medical times Branch daily with meals for 90 days. amLODIPine 2022- Yes [id number] 5mg Take 1 [facility] 5 mg tablet 04-07-10 tablet by it y of 00:00: 04:59 mouth [place] 00 :00 daily for Medical 90 days. Branch carvediloL 2022- Yes [id number] 25mg Take 1 [facility] 25 mg 04-07-10 tablet by ity of tablet 00:00: 04:59 mouth 2 [place] 00 :00 (two) Medical times Branch daily with meals for 90 days. amLODIPine 2022- Yes [id number] 5mg Take 1 [facility] 5 mg tablet 04-07-10 tablet by it y of 00:00: 04:59 mouth [place] 00 :00 daily for Medical 90 days. Branch carvediloL 2022- Yes [id number] 25mg Take 1 [facility] 25 mg 04-07-10 tablet by ity of tablet 00:00: 04:59 mouth 2 [place] 00 :00 (two) Medical times Branch daily with meals for 90 days. amLODIPine 2022- Yes [id number] 5mg Take 1 [facility] 5 mg tablet 04-07-10 tablet by it y of 00:00: 04:59 mouth [place] 00 :00 daily for Medical 90 days. Branch carvediloL 2022- Yes [id number] 25mg Take 1 [facility] 25 mg 04-07-10 tablet by ity of tablet 00:00: 04:59 mouth 2 [place] 00 :00 (two) Medical times Branch daily with meals for 90 days. amLODIPine 2022- Yes [id number] 5mg Take 1 [facility] 5 mg tablet 04-0710 tablet by it y of 00:00: 04:59 mouth [place] 00 :00 daily for Medical 90 days. Branch carvediloL 2022- Yes [id number] 25mg Take 1 [facility] 25 mg 04-07-10 tablet by ity of tablet 00:00: 04:59 mouth 2 [place] 00 :00 (two) Medical times Branch daily with meals for 90 days. amLODIPine 2022- Yes [id number] 5mg Take 1 [facility] 5 mg tablet 04-0710 tablet by it y of 00:00: 04:59 mouth [place] 00 :00 daily for Medical 90 days. Branch carvediloL 2022- Yes [id number] 25mg Take 1 [facility] 25 mg 04-0710 tablet by ity of tablet 00:00: 04:59 mouth 2 [place] 00 :00 (two) Medical times Branch daily with meals for 90 days. amLODIPine 2022- Yes [id number] 5mg Take 1 [facility] 5 mg tablet 04-0710 tablet by it y of 00:00: 04:59 mouth [place] 00 :00 daily for Medical 90 days. Branch carvediloL 2022- Yes [id number] 25mg Take 1 [facility] 25 mg 04-07-10 tablet by ity of tablet 00:00: 04:59 mouth 2 [place] 00 :00 (two) Medical times Branch daily with meals for 90 days. amLODIPine 2022- Yes [id number] 5mg Take 1 [facility] 5 mg tablet 04-07-10 tablet by it y of 00:00: 04:59 mouth [place] 00 :00 daily for Medical 90 days. Branch carvediloL 2022- Yes [id number] 25mg Take 1 [facility] 25 mg 04-07-10 tablet by ity of tablet 00:00: 04:59 mouth 2 [place] 00 :00 (two) Medical times [place] daily with meals for 90 days. amLODIPine 2022- Yes [id number] 5mg Take 1 [facility] 5 mg tablet 04-07-10 tablet by it y of 00:00: 04:59 mouth [place] 00 :00 daily for Medical 90 days. Branch carvediloL 2022- Yes [id number] 25mg Take 1 [facility] 25 mg 04-07-10 tablet by ity of tablet 00:00: 04:59 mouth 2 [place] 00 :00 (two) Medical times [place] daily with meals for 90 days. amLODIPine 2022- Yes [id number] 5mg Take 1 [facility] 5 mg tablet 04-0710 tablet by it y of 00:00: 04:59 mouth [place] 00 :00 daily for Medical 90 days. Branch carvediloL 2022- Yes [id number] 25mg Take 1 [facility] 25 mg 04-0710 tablet by ity of tablet 00:00: 04:59 mouth 2 [place] 00 :00 (two) Medical times [place] daily with meals for 90 days. amLODIPine 2022- Yes [id number] 5mg Take 1 [facility] 5 mg tablet 04-0710 tablet by it y of 00:00: 04:59 mouth [place] 00 :00 daily for Medical 90 days. Branch carvediloL 2022- Yes [id number] 25mg Take 1 [facility] 25 mg 04-07-10 tablet by ity of tablet 00:00: 04:59 mouth 2 [place] 00 :00 (two) Medical times [place] daily with meals for 90 days. amLODIPine 2022- Yes [id number] 5mg Take 1 [facility] 5 mg tablet 04-07-10 tablet by it y of 00:00: 04:59 mouth [place] 00 :00 daily for Medical 90 days. Branch carvediloL 2022- Yes [id number] 25mg Take 1 [facility] 25 mg 04-07-10 tablet by ity of tablet 00:00: 04:59 mouth 2 [place] 00 :00 (two) Medical times Branch daily with meals for 90 days. amLODIPine 2022- Yes [id number] 5mg Take 1 [facility] 5 mg tablet 04-07-10 tablet by it y of 00:00: 04:59 mouth [place] 00 :00 daily for Medical 90 days. Branch carvediloL 2022- Yes [id number] 25mg Take 1 [facility] 25 mg 04-07-10 tablet by ity of tablet 00:00: 04:59 mouth 2 [place] 00 :00 (two) Medical times Branch daily with meals for 90 days. amLODIPine 2022- Yes [id number] 5mg Take 1 [facility] 5 mg tablet 04-0710 tablet by it y of 00:00: 04:59 mouth [place] 00 :00 daily for Medical 90 days. Branch carvediloL 2022- Yes [id number] 25mg Take 1 [facility] 25 mg 04-07-10 tablet by ity of tablet 00:00: 04:59 mouth 2 [place] 00 :00 (two) Medical times Branch daily with meals for 90 days. amLODIPine 2022- Yes [id number] 5mg Take 1 [facility] 5 mg tablet 04-0710 tablet by it y of 00:00: 04:59 mouth [place] 00 :00 daily for Medical 90 days. Branch carvediloL 2022- Yes [id number] 25mg Take 1 [facility] 25 mg 04-07-10 tablet by ity of tablet 00:00: 04:59 mouth 2 [place] 00 :00 (two) Medical times Branch daily with meals for 90 days. amLODIPine 2022- Yes [id number] 5mg Take 1 [facility] 5 mg tablet 04-07-10 tablet by it y of 00:00: 04:59 mouth [place] 00 :00 daily for Medical 90 days. Branch carvediloL 2022- Yes [id number] 25mg Take 1 [facility] 25 mg 04-07-10 tablet by ity of tablet 00:00: 04:59 mouth 2 [place] 00 :00 (two) Medical times Branch daily with meals for 90 days. amLODIPine 2022- Yes [id number] 5mg Take 1 [facility] 5 mg tablet 04-07-10 tablet by it y of 00:00: 04:59 mouth [place] 00 :00 daily for Medical 90 days. Branch carvediloL 2022- Yes [id number] 25mg Take 1 [facility] 25 mg 04-07-10 tablet by ity of tablet 00:00: 04:59 mouth 2 [place] 00 :00 (two) Medical times [place] daily with meals for 90 days. amLODIPine 2022- Yes [id number] 5mg Take 1 [facility] 5 mg tablet 04-0710 tablet by it y of 00:00: 04:59 mouth [place] 00 :00 daily for Medical 90 days. Branch carvediloL 2022- Yes [id number] 25mg Take 1 [facility] 25 mg 04-0710 tablet by ity of tablet 00:00: 04:59 mouth 2 [place] 00 :00 (two) Medical times [place] daily with meals for 90 days. amLODIPine 2022- Yes [id number] 5mg Take 1 [facility] 5 mg tablet 04-0710 tablet by it y of 00:00: 04:59 mouth [place] 00 :00 daily for Medical 90 days. Branch carvediloL 2022- Yes [id number] 25mg Take 1 [facility] 25 mg 04-0710 tablet by ity of tablet 00:00: 04:59 mouth 2 [place] 00 :00 (two) Medical times [place] daily with meals for 90 days. amLODIPine 2022- Yes [id number] 5mg Take 1 [facility] 5 mg tablet 04-0710 tablet by it y of 00:00: 04:59 mouth [place] 00 :00 daily for Medical 90 days. Branch carvediloL 2022- Yes [id number] 25mg Take 1 [facility] 25 mg 04-07-10 tablet by ity of tablet 00:00: 04:59 mouth 2 [place] 00 :00 (two) Medical times [place] daily with meals for 90 days. lactulose 2022- Yes [id number] 15mL Take 15 mL [facility] 10 gram/15 04-07 by mouth 2 it y of mL solution 00:00: 05:59 (two) [place] 00 :00 times Medical daily for Branch 30 days. acetaminoph 2022- Yes [id number] 650mg Take 2 [facility] en 325 mg 04-07 tablets by ity of tablet 00:00: 05:59 mouth [place] 00 :00 every 6 Medical (six) Branch hours as needed for Pain (scale 1-3) for up to 30 days. aspirin 2022- Yes [id number] 325mg Take 1 [facility] 325 mg 04-07 tablet by it y of EC tablet 00:00: 05:59 mouth [place] 00 :00 daily for Medical 30 days. Branch lactulose 2022- Yes [id number] 15mL Take 15 mL [facility] 10 gram/15 04-07 by mouth 2 it y of mL solution 00:00: 05:59 (two) [place] 00 :00 times Medical daily for Branch 30 days. acetaminoph 2022- Yes [id number] 650mg Take 2 [facility] en 325 mg 04-07 tablets by ity of tablet 00:00: 05:59 mouth [place] 00 :00 every 6 Medical (six) Branch hours as needed for Pain (scale 1-3) for up to 30 days. aspirin 2022- Yes [id number] 325mg Take 1 [facility] 325 mg 04-07 tablet by it y of EC tablet 00:00: 05:59 mouth [place] 00 :00 daily for Medical 30 days. Branch lactulose 2022- Yes [id number] 15mL Take 15 mL [facility] 10 gram/15 04-07 by mouth 2 it y of mL solution 00:00: 05:59 (two) [place] 00 :00 times Medical daily for Branch 30 days. acetaminoph 2022- Yes [id number] 650mg Take 2 [facility] en 325 mg 04-07 tablets by ity of tablet 00:00: 05:59 mouth [place] 00 :00 every 6 Medical (six) Branch hours as needed for Pain (scale 1-3) for up to 30 days. aspirin 2022- Yes [id number] 325mg Take 1 [facility] 325 mg 04-07 tablet by it y of EC tablet 00:00: 05:59 mouth [place] 00 :00 daily for Medical 30 days. Branch lactulose 2022- Yes [id number] 15mL Take 15 mL [facility] 10 gram/15 04-07 by mouth 2 it y of mL solution 00:00: 05:59 (two) [place] 00 :00 times Medical daily for Branch 30 days. acetaminoph 2022- Yes [id number] 650mg Take 2 [facility] en 325 mg 04-07 tablets by ity of tablet 00:00: 05:59 mouth [place] 00 :00 every 6 Medical (six) Branch hours as needed for Pain (scale 1-3) for up to 30 days. aspirin 2022- Yes [id number] 325mg Take 1 [facility] 325 mg 04-07 tablet by it y of EC tablet 00:00: 05:59 mouth [place] 00 :00 daily for Medical 30 days. Branch lactulose 2022- Yes [id number] 15mL Take 15 mL [facility] 10 gram/15 04-07 by mouth 2 it y of mL solution 00:00: 05:59 (two) [place] 00 :00 times Medical daily for Branch 30 days. acetaminoph 2022- Yes [id number] 650mg Take 2 [facility] en 325 mg 04-07 tablets by ity of tablet 00:00: 05:59 mouth [place] 00 :00 every 6 Medical (six) Branch hours as needed for Pain (scale 1-3) for up to 30 days. aspirin 2022- Yes [id number] 325mg Take 1 [facility] 325 mg 04-07 tablet by it y of EC tablet 00:00: 05:59 mouth [place] 00 :00 daily for Medical 30 days. Branch lactulose 2022- Yes [id number] 15mL Take 15 mL [facility] 10 gram/15 04-07 by mouth 2 it y of mL solution 00:00: 05:59 (two) [place] 00 :00 times Medical daily for Branch 30 days. acetaminoph 2022- Yes [id number] 650mg Take 2 [facility] en 325 mg 04-07 tablets by ity of tablet 00:00: 05:59 mouth [place] 00 :00 every 6 Medical (six) Branch hours as needed for Pain (scale 1-3) for up to 30 days. aspirin 2022- Yes [id number] 325mg Take 1 [facility] 325 mg 04-07 tablet by it y of EC tablet 00:00: 05:59 mouth [place] 00 :00 daily for Medical 30 days. Branch lactulose 2022- Yes [id number] 15mL Take 15 mL [facility] 10 gram/15 04-07 by mouth 2 it y of mL solution 00:00: 05:59 (two) [place] 00 :00 times Medical daily for Branch 30 days. acetaminoph 2022- Yes [id number] 650mg Take 2 [facility] en 325 mg 04-07 tablets by ity of tablet 00:00: 05:59 mouth [place] 00 :00 every 6 Medical (six) Branch hours as needed for Pain (scale 1-3) for up to 30 days. aspirin 2022- Yes [id number] 325mg Take 1 [facility] 325 mg 04-07 tablet by it y of EC tablet 00:00: 05:59 mouth [place] 00 :00 daily for Medical 30 days. Branch lactulose 2022- Yes [id number] 15mL Take 15 mL [facility] 10 gram/15 04-07 by mouth 2 it y of mL solution 00:00: 05:59 (two) [place] 00 :00 times Medical daily for Branch 30 days. acetaminoph 2022- Yes [id number] 650mg Take 2 [facility] en 325 mg 04-07 tablets by ity of tablet 00:00: 05:59 mouth [place] 00 :00 every 6 Medical (six) Branch hours as needed for Pain (scale 1-3) for up to 30 days. aspirin 2022- Yes [id number] 325mg Take 1 [facility] 325 mg 04-07 tablet by it y of EC tablet 00:00: 05:59 mouth [place] 00 :00 daily for Medical 30 days. Branch lactulose 2022- Yes [id number] 15mL Take 15 mL [facility] 10 gram/15 04-07 by mouth 2 it y of mL solution 00:00: 05:59 (two) [place] 00 :00 times Medical daily for Branch 30 days. acetaminoph 2022- Yes [id number] 650mg Take 2 [facility] en 325 mg 04-07 tablets by ity of tablet 00:00: 05:59 mouth [place] 00 :00 every 6 Medical (six) Branch hours as needed for Pain (scale 1-3) for up to 30 days. aspirin 2022- Yes [id number] 325mg Take 1 [facility] 325 mg 04-07 tablet by it y of EC tablet 00:00: 05:59 mouth [place] 00 :00 daily for Medical 30 days. Branch lactulose 2022- Yes [id number] 15mL Take 15 mL [facility] 10 gram/15 04-07 by mouth 2 it y of mL solution 00:00: 05:59 (two) [place] 00 :00 times Medical daily for Branch 30 days. acetaminoph 2022- Yes [id number] 650mg Take 2 [facility] en 325 mg 04-07 tablets by ity of tablet 00:00: 05:59 mouth [place] 00 :00 every 6 Medical (six) Branch hours as needed for Pain (scale 1-3) for up to 30 days. aspirin 2022- Yes [id number] 325mg Take 1 [facility] 325 mg 04-07 tablet by it y of EC tablet 00:00: 05:59 mouth [place] 00 :00 daily for Medical 30 days. Branch lactulose 2022- Yes [id number] 15mL Take 15 mL [facility] 10 gram/15 04-07 by mouth 2 it y of mL solution 00:00: 05:59 (two) [place] 00 :00 times Medical daily for Branch 30 days. acetaminoph 2022- Yes [id number] 650mg Take 2 [facility] en 325 mg 04-07 tablets by ity of tablet 00:00: 05:59 mouth [place] 00 :00 every 6 Medical (six) Branch hours as needed for Pain (scale 1-3) for up to 30 days. aspirin 2022- Yes [id number] 325mg Take 1 [facility] 325 mg 04-07 tablet by it y of EC tablet 00:00: 05:59 mouth [place] 00 :00 daily for Medical 30 days. Branch levoFLOXaci 2022- Yes [id number] 750mg Take 1 [facility] n 750 mg 04-07 tablet by ity o f tablet 00:00: 05:59 mouth [place] 00 :00 every 24 Medical (twenty-fo Branch ur) hours for 10 days. levoFLOXaci 2022- Yes [id number] 750mg Take 1 [facility] n 750 mg 04-07 tablet by ity o f tablet 00:00: 05:59 mouth [place] 00 :00 every 24 Medical (twenty-fo Branch ur) hours for 10 days. levoFLOXaci 2022- Yes [id number] 750mg Take 1 [facility] n 750 mg [...] Indication s: acute pain, s/p surgery enoxaparin 2022- No [id number] 40mg inject 0.4 [facility] 40 mg/0.4 04-07 mL under ity o f mL 00:00: 00:00 the skin [place] injection 00 :00 every 24 Medica l (twenty-fo Branch ur) hours for 30 days. ergocalcife 2023-0 Yes [id number] 50,000 Un davy rol 1-08 Units, ity of (vitamin 15:00: Oral, [place] d2) 00 QWEEKLY, Medical (CALCIFEROL First dose Br anch ) capsule on Sun 50,000 04/06/22 at Units 0900, Until Discontinu ed, Routine FENTanyl PF 2023-0 2023- No 75ug 75 mcg, Un davy (SUBLIMAZE 1-08 01-08 Slow IV ity o f (PF)) 05:30: 04:43 Push, [place] injection 00 :00 ONCE, 1 Medical 75 mcg dose, On Branch 04/05/22 at 2330, Routine amLODIPine 3-0 Yes 5mg 5 mg, Un[facility] s (NORVASC) 1-06 Oral, ity of tablet 5 mg 15:00: DAILY, [place] 00 First dose Medical (after Branch last modificati on) on Thu04/04/22 at 0900, Until Discontinu ed, Routine amLODIPine 3-0 Yes 5mg 5 mg, Un[facility] (NORVASC) 1-06 Oral, ity of tablet 5 mg 15:00: DAILY, [place] 00 First dose Medical (after [place] last modificati on) on Thu04/04/22 at 0900, Until Discontinu ed, Routine lactulose 3-0 Yes 15mL 15 mL, Univer s (CEPHULAC) 1-06 Oral, BID, ity of solution 15 14:00: First dose [place] mL 00 on Thu Medical 04/04/22 at Branch 0800, Until Discontinu ed, Routine amLODIPine 3-0 2023- No 10mg 10 mg, Univ ers (NORVASC) 1-05 01-05 Oral, ity of tablet 10 15:00: 18:08 DAILY, [place] mg 00 :20 First dose Medical (after Branch last modificati on) on Thu04/03/22 at 0900, Until Discontinu ed, Routine HYDROcodone [...] at 2130, Until Discontinu ed, Routine lactated 3-0 Yes 500mL at 75 [facility] ringers IV 1-04 mL/hr, 500 ity of infusion 22:30: mL, IV [place] 500 mL 00 Infusion, Medical CONTINUOUS Branch , Starting on Thu04/02/22 at 1630, Until Discontinu ed, Routine, PACU KCL 3-0 2023- No 40meq 40 mEq, [facility] (KLOR-CON -06 28- Oral, ity of M20) tablet 14:30: 14:56 ONCE, 1 [place] 40 mEq 00 :00 dose, On Medical Thu04/02/22 Branch at 0830, Routine KCL 2023-0 2023- No 40meq 40 mEq, [facility] (KLOR-CON 04-02-04 Oral, ity of M20) tablet 10:24: 10:47 ONCE, 1 [place] 40 mEq 00 :00 dose, On Medical Thu04/02/22 Branch at 0430, Routine polyethylen 3-0 Yes 17g 17 g, Unive rs e glycol 1-04 Oral, BID, ity o f 3350 powder 02:00: First dose [place] 17 g 00 (after Medical last Branch modificati on) on Thu04/01/22 at 2000, Until Discontinu ed, Routine sennosides- 3-0 Yes 1{tbl} 1 tablet, [facility] docusate 1-04 Oral, BID, ity o f sodium 02:00: First dose [place] (SENOKOT-S) 00 (after Medica l 8.6-50 mg last Branch per tablet modificati 1 tablet on) on Thu04/01/22 at 1999, Until Discontinu ed, Routine polyethylen 3-0 Yes 17g 17 g, Unive rs e glycol 1-04 Oral, BID, ity o f 3350 powder 02:00: First dose [place] 17 g 00 (after Medical last Branch modificati on) on Thu04/01/22 at 1999, Until Discontinu ed, Routine sennosides- 3-0 Yes 1{tbl} 1 tablet, [facility] docusate 04 Oral, BID, ity o f sodium 02:00: First dose [place] (SENOKOT-S) 00 (after Medica l 8.6-50 mg last Branch per tablet modificati 1 tablet on) on Thu04/01/22 at 2000, Until Discontinu ed, Routine enoxaparin 3-0 Yes 40mg 40 mg, Unive rs (LOVENOX) 04-01 Subcutaneo ity of injection 23:00: us, Q24H, [place] 40 mg 00 First dose Medical on Thu [place] 04/01/22 at 1700, Until Discontinu ed, Routine enoxaparin 3-0 Yes 40mg 40 mg, Unive rs (LOVENOX) 04-01 Subcutaneo ity of injection 23:00: us, Q24H, [place] 40 mg 00 First dose Medical on Thu [place] 04/01/22 at 1700, Until Discontinu ed, Routine enoxaparin 3-0 Yes 40mg 40 mg, Unive rs (LOVENOX) 1 Subcutaneo ity of injection 23:00: us, Q24H, [place] 40 mg 00 First dose Medical on Thu [place] 04/01/22 at 1700, Until Discontinu ed, Routine piperacilli 2022-0 2022- Yes 4.5g 4.5 g, IV [facility] [...] days piperacilli 2022- No 3.375g 3.375 g, [facility] [...]
D uration of therapy: 5 days gadobenate 2022-0 3- No [id number] .2mL/kg 14.42 mL [facility] dimeglumine 03-31 [id number] (0.2 mL/kg ity of (MULTIHANCE 23:45: 23:30 ?72.1 kg), [place] -15 mL) 00 :00 Intravenou Medica l injection s, ONCE, 1 Bran ch 14.42 mL dose, On Thu03/31/22 at 1745, Routine amLODIPine 2022-0 Yes 5mg 5 mg, Un[facility] s (NORVASC) 03-31 Oral, ity of tablet 5 mg 15:00: DAILY, [place] 00 First dose Medical on Thu03/31/22 at 0900, Until Discontinu ed, Routine amLODIPine 2022-0 2022- No 5mg 5 mg, Unive rs (NORVASC) 03-31-05 Oral, ity of tablet 5 mg 15:00: 13:48 DAILY, [place] 00 :34 First dose Medical on Thu03/31/22 at 0900, Until Discontinu ed, Routine carvediloL 3-0 Yes 25mg 25 mg, Unive rs (COREG) 1- Oral, BID ity of tablet 25 14:00: MEALS, [place] mg 00 First dose Medical (after Branch last modificati on) on Thu03/31/22 at 0800, Until Discontinu ed, Routine carvediloL 2023-0 Yes 25mg 25 mg, Unive rs (COREG) -02 Oral, BID ity of tablet 25 14:00: MEALS, [place] mg 00 First dose Medical (after Branch last modificati on) on Thu03/31/22 at 0800, Until Discontinu ed, Routine carvediloL 2023-0 Yes 25mg 25 mg, Unive rs (COREG) - Oral, BID ity of tablet 25 14:00: MEALS, [place] mg 00 First dose Medical (after Branch last modificati on) on Thu03/31/22 at 0800, Until Discontinu ed, Routine vancomycin 2022- Yes 1000mg 1,000 mg, [facility] (VANCOCIN) 03-31 IV ity of 1,000 mg in 08:00: 07:59 [place], [place] NaCl 0.9% 00 :00 Q12H ABX, Medic al (NS) 250 mL 4 doses, Bran ch VIAL-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
Reas on for Anti-Infec tive: Empiric Therapy for Suspected Infection< br>Empiric Therapy Site: Skin / Soft tissue<br& gt;Duratio n of therapy: 5 days vancomycin 2022- No 1000mg 1,000 mg, [facility] (VANCOCIN) 03-31 IV ity of 1,000 mg in 08:00: 04:30 [place], [place] NaCl 0.9% 00 :14 Q12H ABX, Medic al (NS) 250 mL 4 doses, Bran ch VIAL-silk 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 dose IV (after [place] last modificati on) [...] ity of 2,000 mg in 07:30: 07:29 [place], [place] NaCl 0.9% 00 :00 Q8H ABX, Medica l (NS) 50 mL 21 doses, Bran ch MINI-BAG First dose on Thu03/31/22 at 0130, Last dose on Thu04/06/22 at 1730, Administer over 4 Hours, 50 mL
Reas on for Anti-Infec tive: Documented Infection< br>Documen alex Infection Site: Wound
D uration of Therapy: 7 days ceFEPIme 2022- No 2000mg 2,000 mg, U nivers (MAXIPIME) 03-3103 IV ity of 2,000 mg in 07:30: 04:30 [place], [place] NaCl 0.9% 00 :14 Q8H ABX, Medica l (NS) 50 mL 21 doses, Bran ch MINI-BAG First dose on Thu03/31/22 at 0130, Last dose on 04/06/22 at 1730, Administer over 4 Hours, 50 mL
Reas on for Anti-Infec tive: Documented Infection< br>Documen alex Infection Site: Wound
D uration of Therapy: 7 days carvediloL 2022- No 12.5mg 12.5 mg, [facility] (COREG) 03-31 Oral, ONCE ity o f tablet 12.5 07:00: 06:07 NOW, 1 [place] mg 00 :00 dose, On Medical Thu03/31/22 Branch at 0100, Routine ceFEPIme No 2000mg 2,000 mg, U nivers (MAXIPIME) 03-30 IV ity of 2,000 mg in 23:45: 04:04 [place], [place] NaCl 0.9% 00 :13 ONCE, 1 Medical (NS) 50 mL dose, On [facility] h MINI-BAG Thu03/30/22 at 1745, Administer over 240 Minutes, 50 mL
Reas on for Anti-Infec tive: Documented Infection< br>Documen alex Infection Site: Wound<br&g t;Duration of Therapy: 7 days lisinopriL 0 Yes 20mg 20 mg, Unive rs (PRINIVIL,Z 03-30 Oral, ity of ESTRIL) 15:00: DAILY, [place] tablet 20 00 First dose Medi shade mg (after Branch last modificati on) on Thu03/30/22 at 0900, Until Discontinu ed, Routine lisinopriL 2022-0 Yes 20mg 20 mg, Unive rs (PRINIVIL,Z 03-30 Oral, ity of ESTRIL) 15:00: DAILY, [place] tablet 20 00 First dose Medi shade mg (after Branch last modificati on) on Thu03/30/22 at 0900, Until Discontinu ed, Routine lisinopriL Yes 20mg 20 mg, Unive rs (PRINIVIL,Z 03-30 Oral, ity of ESTRIL) 15:00: DAILY, [place] tablet 20 00 First dose Medi shade mg (after Branch last modificati on) on 03/30/22 at 0900, Until Discontinu ed, Routine KCL 2022- No 40meq 40 mEq, [facility] (KLOR-CON 03-30 Oral, ity of M20) tablet 13:45: 14:25 ONCE, 1 [place] 40 mEq 00 :00 dose, On Medical 03/30/22 Branch at 0745, Routine lisinopriL No 10mg 10 mg, Univ ers (PRINIVIL,Z 03-30 Oral, ity of ESTRIL) 06:57: 07:21 ONCE, 1 [place] tablet 10 00 :00 dose, On Medica l mg 03/30/22 Branch at 0100, Routine vancomycin 2021-03 No 1000mg 1,000 mg, Univers (VANCOCIN) 03-31 IV ity of 1,000 mg in 18:00: 05:27 [place], [place] NaCl 0.9% 00 :42 Q12H ABX, Medic al (NS) 250 mL 7 doses, Bran ch VIAL-silk 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 dose IV (after [place] last modificati on) [...] Discontinu ed, Routine, Pain (scale 4-6) HYDROcodone 2021-03- No 1{tbl} 1 tablet, [facility] -acetaminop 04-03 Oral, ity of hen (NORCO) 15:43: 03:19 Q6HPRN, [place] 10-325 mg 41 :48 Starting Medica l tablet 1 on [facility] Branch tablet 03/29/22 at 0943, Until 04/02/22 at 2119, Routine, Pain (scale 4-6) morpHINE (4 2021-03 Yes 4mg 4 mg, Slow [facility] mg/mL) 2- IV Push, ity of injection 4 15:43: Q6HPRN, [place] mg 22 Starting Medical on [facility] Branch 03/29/22 at 0943, Until Discontinu ed, Routine, Pain (scale 7-10) morpHINE (4 2021-03 Yes 4mg 4 mg, Slow [facility] mg/mL) 2- IV Push, ity of injection 4 15:43: Q6HPRN, [place] mg 22 Starting Medical on [facility] Branch 03/29/22 at 0943, Until Discontinu ed, Routine, Pain (scale 7-10) morpHINE (2021-03 Yes 4mg 4 mg, Slow [facility] mg/mL) 2- IV Push, ity of injection 4 15:43: Q6HPRN, [place] mg 22 Starting Medical on [facility] Branch 03/29/22 at 0943, Until Discontinu ed, Routine, Pain (scale 7-10) carvediloL 2021-03- No 12.5mg 12.5 mg, [facility] (COREG) 03-29 Oral, ity of tablet 12.5 03:43: 03:51 ONCE, 1 [place] mg 00 :00 dose, On Medical Fri Branch 03/28/22 at 2145, Routine HYDROcodone 2021-03- No 1{tbl} 1 tablet, [facility] -acetaminop 03-29 Oral, ity of hen (NORCO 01:15: 01:25 ONCE, 1 [place] 5) 5-325 mg 00 :00 dose, On Medi shade tablet 1 Thu Branch tablet 03/28/22 at 1915, Routine, PACU FENTanyl [...] [place] 00 :38 Starting Medical on Fri Branch 03/28/22 at 1857, Until Thu03/28/22 at [...] f injection 23:09: 01:05 INTRA [place] 00 :38 PROCEDURE, Medical Starting Branch on Thu03/28/22 at [...] ity of 22:49: 01:05 INTRA [place] 00 :38 PROCEDURE, Medical Starting Branch on Thu03/28/22 at [...] 01:05 INTRA [place] 100 mg/10 00 :38 [...] 1639, Until Discontinu ed, Routine, Intra-op lactated 2021-03- No IV [facility] ringers IV 03-29 Infusion, ity of infusion 22:38: 01:05 CONTINUOUS [place] 00 :38 PRN, Medical Starting Branch on Thu03/28/22 at 1638, Until Discontinu ed, Routine, Intra-op bupivacaine 2021-03- No Infiltrati Univers (preserv 03-29 on, ONCE ity of free) 21:26: 01:05 INTRA [place] (SENSORCAIN 00 :38 PROCEDURE, Me dical E MPF) 0.25 Starting Bran ch % (2.5 on Thu mg/mL) 03/28/22 injection at 1526, Until Discontinu ed, Routine, Intra-op cholecalcif 2021-03 Yes 1000U 1,000 [facility] ers elis 2-30 Units, ity of (vitamin [...] at 0900, Until Discontinu ed, Routine aspirin 2021-03- No 81mg 81 mg, [facility] chewable 2-30 -08 Oral, ity of tablet 81 15:00: 22:50 DAILY, [place] mg 00 :10 First dose Medical on Thu Branch 03/28/22 at 0900, Until Discontinu ed, Routine cholecalcif 2021-03- No 1000U 1,000 [facility] vers elis 2-30 01-07 Units, ity of (vitamin 15:00: 23:39 Oral, [place] D3) tablet 00 :31 DAILY, Medical 1,000 Units First dose Br anch on Thu03/28/22 at 0900, Until Discontinu ed, Routine sennosides- 2021-03 No 1{tbl} 1 tablet, Univers docusate 04-01 Oral, ity of sodium 15:00: 16:13 DAILY, [place] (SENOKOT-S) 00 :38 First dose Me dical 8.6-50 mg on Fri Branch per tablet 03/28/22 1 tablet at [...] mg 00 :21 First dose Medical on Fri Branch 03/28/22 at 0800, Until Discontinu ed, Routine KCL 2021-03 No 40meq 40 mEq, Univers (KLOR-CON 03-28 Oral, ity of M20) tablet 11:44: 12:28 ONCE, 1 [place] 40 mEq 00 :00 dose, On Medical Fri Branch 03/28/22 at 0545, Routine ampicillin- 2021-03 No 3g 3 g, IV Un davy sulbactam 03-30 Piggyback, ity of (UNASYN) 3 06:00: 23:02 Q6H ABX, [place] g in NaCl 00 :06 20 doses, Medic al 0.9% (NS) First dose Bran ch 100 mL on Fri MINI-BAG 03/28/22 at 0000, Last dose on Tu04/01/22 at 1800, Administer over 30 Minutes, 100 mL
Reas on for Anti-Infec tive: Empiric Therapy for Suspected Infection< br>Empiric Therapy Site: Wound
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
Reas on for Anti-Infec tive: Empiric Therapy for Suspected Infection< br>Empiric Therapy Site: Skin / Soft tissue
Duration of therapy: 5 days heparin 2021-03- No 5000U 5,000 Univers (porcine) 2-30 01-02 Units, ity of injection 04:00: 05:58 Subcutaneo [place] 5,000 Units 00 :59 , Q8H, [facility] First dose Branch on [facility] 03/27/22 at 2200, Until Discontinu ed, Routine atorvastati 2021-03 Yes 20mg 20 mg, Univ ers n (LIPITOR) 2-30 Oral, QHS, it y of tablet 20 03:00: First dose [place] mg 00 on [facility] 03/27/22 Branch at 2100, Until Discontinu ed, Routine atorvastati 2021-03 Yes 20mg 20 mg, Univ ers n (LIPITOR) 2-30 Oral, QHS, it y of tablet 20 03:00: First dose [place] mg 00 on [facility] 03/27/22 Branch at 2100, Until Discontinu ed, Routine atorvastati 2021-03 Yes 20mg 20 mg, Univ ers n (LIPITOR) 2-30 Oral, QHS, it y of tablet 20 03:00: First dose [place] mg 00 on [facility] 03/27/22 Branch at 2100, Until Discontinu ed, Routine celecoxib 2021-03 Yes 100mg 100 mg, Univ ers (CELEBREX) 2-29 Oral, BID ity of capsule 100 23:15: MEALS, [place] mg 00 First dose Medical on [facility] 03/27/22 at 1715, Until Discontinu ed, Routine celecoxib 2021-03 Yes 100mg 100 mg, Univ ers (CELEBREX) 2-29 Oral, BID ity of capsule 100 23:15: MEALS, [place] mg 00 First dose Medical on [facility] 03/27/22 at 1715, Until Discontinu ed, Routine celecoxib 2021-03- No 100mg 100 mg, Uni vers (CELEBREX) 04-06 Oral, BID ity of capsule 100 23:15: 18:33 MEALS, [place] mg 00 :18 First dose Medical on [facility] Branch 03/27/22 at 1715, Until Discontinu ed, Routine HYDROcodone 2021-03- No 1{tbl} 1 tablet, Univers -acetaminop 03-29 Oral, ity of hen (NORCO) 23:13: 15:43 Q6HPRN, [place] 10-325 mg 20 :52 Starting Medica l tablet 1 on [facility] tablet 03/27/22 at 1713, Until 03/29/22 at 0943, Routine, Pain (scale 7-10), Pain (scale 4-6) Sliding 2021-03 Yes Subcutaneo [facility] ers Scale 2-29 us, TID ity of Insulin - 23:00: MEALS+HS, [place] Lispro 00 First dose Medical [facility] at 1700, Until Discontinu ed, Routine Sliding 2021-03 [facility] ers Scale 2-29 us, TID ity of Insulin - 23:00: MEALS+HS, [place] Lispro 00 First dose Medical (HumaLOG) + on [facility] Fsbg 03/27/22 Testing at 1700, Until Discontinu ed, Routine Sliding 2021-03 Yes [facility] ers Scale 2-29 us, TID ity of Insulin - 23:00: MEALS+HS, [place] Lispro 00 First dose Medical [facility]HumaLOG[facility] at 1700, Until Discontinu ed, Routine dextrose 2021-03 Yes 250mL 250 mL, IV Un davy 10% (D10W) Infusion, ity of bolus 22:54: PRN - SEE [place] infusion 13 INSTRUCTIO Medic al 250 mL NS, Branch Administer over 60 Minutes, Other, If blood glucose is < or = 70 mg/dL and patient is unable to swallow or has mental status changes, Starting on [facility] 03/27/22 at 1654
If blood glucose is [...] ity of bolus 22:54: PRN - SEE [place] infusion 13 INSTRUCTIO Medic al 250 mL [...] ity of bolus 22:54: PRN - SEE [place] infusion 13 INSTRUCTIO Medic al 250 mL [...] 09 Starting Medical injection 1 on [place] Branch mg 03/27/22 at 1654, Until Discontinu ed, CHARMAINE, Blood Glucose < or = 70 mg/dL and patient is unable to swallow or has mental changes. glucagon 2021-03 Yes 1mg 1 mg, Univers (GLUCAGEN 2-29 Intramuscu ity of DIAGNOSTIC 22:54: lar, PRN, [place] KIT) 09 Starting Medical injection 1 on [place] Branch mg 03/27/22 at 1654, Until Discontinu ed, CHARMAINE, Blood Glucose < or = 70 mg/dL and patient is unable to swallow or has mental changes. glucagon 2021-03 Yes 1mg 1 mg, Univers (GLUCAGEN 2-29 Intramuscu ity of DIAGNOSTIC 22:54: lar, PRN, [place] KIT) 09 Starting Medical injection 1 on [place] Branch mg 03/27/22 at 1654, Until Discontinu ed, CHARMAINE, Blood Glucose < or = 70 mg/dL and patient is unable to swallow or has mental changes. acetaminoph 2021-03 Yes 650mg 650 mg, Un davy en 2- Oral, ity of (TYLENOL) 22:53: Q6HPRN, [place] tablet 650 40 Starting Medic al mg on [place] Branch 03/27/22 at 1653, Until Discontinu ed, Routine, Pain (scale 1-3) acetaminoph 2021-03 Yes 650mg 650 mg, Un davy en 2-29 Oral, ity of (TYLENOL) 22:53: Q6HPRN, [place] tablet 650 40 Starting Medic al mg on [place] Branch 03/27/22 at 1653, Until Discontinu ed, Routine, Pain (scale 1-3) acetaminoph 2021-03 Yes 650mg 650 mg, Un davy en 2- Oral, ity of (TYLENOL) 22:53: Q6HPRN, [place] tablet 650 40 Starting Medic al mg on [place] Branch 03/27/22 at 1653, Until Discontinu ed, Routine, Pain (scale 1-3) ondansetron 2021-03 Yes 4mg 4 mg, Slow Univers (ZOFRAN 2-29 IV Push, ity of (PF)) 22:53: Q6HPRN, [place] injection 4 21 Starting Medi shade mg on [place] Branch 03/27/22 at 1653, Until Discontinu ed, Routine, Nausea and Vomiting (N/V) ondansetron 2021-03 Yes 4mg 4 mg, Slow Univers (ZOFRAN 2-29 IV Push, ity of (PF)) 22:53: Q6HPRN, [place] injection 4 21 Starting Medi shade mg on [place] Branch 03/27/22 at 1653, Until Discontinu ed, Routine, Nausea and Vomiting (N/V) ondansetron 2021-03 Yes 4mg 4 mg, Slow Univers (ZOFRAN 2-29 IV Push, ity of (PF)) 22:53: Q6HPRN, [place] injection 4 21 Starting Medi shade mg on [place] Branch 03/27/22 at 1653, Until Discontinu ed, Routine, Nausea and Vomiting (N/V) vancomycin 2021-03- No 15mg/kg 1,000 mg Univers (VANCOCIN) 03-27 (rounded ity of 1,000 mg in 22:00: 23:15 from [place] NaCl 0.9% 00 :00 1,081.5 mg Medi shade (NS) 250 mL = 15 mg/kg Br anch VIAL-MATE ?72.1 kg), IV IV piggyback Piggyback, ONCE, 1 dose, On [place] 03/27/22 at 1600, Administer over 60 Minutes, [...]
Duration of therapy: 72 hours morpHINE (4 2021-03- No 4mg 4 mg, Slow Univers mg/mL) [...] NEEDED FOR PAIN (SCALE 4-6) lisinopriL 2021-03- No [id number] 40mg Take 1 Univers 40 mg 2-16 03-17 tablet by ity of tablet 00:00: 04:59 mouth [place] 00 :00 daily for Medical 90 days. Branch lisinopriL 2021-03- No [id number] 40mg Take 1 Univers 40 mg 2-16 03-17 tablet by ity of tablet 00:00: 04:59 mouth [place] 00 :00 daily for Medical 90 days. Branch lisinopriL 2021-03- No [id number] 40mg Take 1 Univers 40 mg 2-16 03-17 tablet by ity of tablet 00:00: 04:59 mouth [place] 00 :00 daily for Medical 90 days. Branch lisinopriL 2021-03- No [id number] 40mg Take 1 Univers 40 mg 2-16 03-17 tablet by ity of tablet 00:00: 04:59 mouth [place] 00 :00 daily for Medical 90 days. Branch lisinopriL 2021-03- No [id number] 40mg Take 1 Univers 40 mg 2-16 03-17 tablet by ity of tablet 00:00: 04:59 mouth [place] 00 :00 daily for Medical 90 days. Branch lisinopriL 2021-03- No [id number] 40mg Take 1 Univers 40 mg 2-16 03-17 tablet by ity of tablet 00:00: 04:59 mouth [place] 00 :00 daily for Medical 90 days. Branch lisinopriL 2021-03- No [id number] 40mg Take 1 Univers 40 mg 2-16 03-17 tablet by ity of tablet 00:00: 04:59 mouth [place] 00 :00 daily for Medical 90 days. Branch lisinopriL 2021-03- No [id number] 40mg Take 1 Univers 40 mg 2-16 -09 tablet by ity of tablet 00:00: 00:00 mouth [place] 00 :00 daily for Medical 90 days. Jay lactated 2021-03 Yes 1000mL at 100 Unive [...] on [place] 03/13/22 at 1215, Until [place] 1222 at 2006, Routine, PACU FENTanyl PF 2021-03- [...] 2021-03- No Slow IV Univ ers 1% 2 12-15 Push, ONCE ity of (XYLOCAINE) 16:11: 19:06 INTRA [place] 100 mg/10 00 :38 PROCEDURE, Medi shade mL (1 %) Starting Branch injection on [place] 03/13/22 at 1011, Until [place] 03/13/22 at 1306, Routine, Intra-op midazolam 2021-03- No IV Push, Uni vers (VERSED) 05-1417 ONCE INTRA ity of injection 16:08: 00:04 PROCEDURE, [place] 00 :29 Starting Medical on [place] Branch 03/13/22 at 1008, Until Thu03/14/22 at 1804, Routine, Intra-op midazolam 2021-03- No IV Push, Uni vers (VERSED) 05-1417 ONCE INTRA ity of injection 16:08: 00:04 PROCEDURE, [place] 00 :29 Starting Medical on [place] Branch 03/13/22 at 1008, Until Thu03/14/22 at 1804, Routine, Intra-op lactated 2021-03- No [...] Med ical injection Starting Branch on [place] 12/15/22 at 0936, Until Discontinu ed, Routine, Intra-op bupivacaine 2021-03 No Infiltrati Univers (preserv 2-15 12-15 on, ONCE ity of free) 15:36: 19:06 INTRA [place] (SENSORCAIN 00 :38 PROCEDURE, Me dical E MPF) 0.25 Starting Bran ch % (2.5 on [place] mg/mL) 03/13/22 injection at 0936, Until Discontinu ed, Routine, Intra-op dexamethaso 2021-03 No Infiltrati Univers ne 2-15 12-15 on, ONCE ity of (DECADRON 15:36: 19:06 INTRA [place] PHOSPHATE) 00 :38 PROCEDURE, Med ical injection Starting Branch on [place] 03/13/22 at 0936, Until Discontinu ed, Routine, Intra-op bupivacaine 2021-03 No Infiltrati Univers (preserv 2-15 12-15 on, ONCE ity of free) 15:36: 19:06 INTRA [place] (SENSORCAIN 00 :38 PROCEDURE, Me dical E MPF) 0.25 Starting Bran ch % (2.5 on [place] mg/mL) 03/13/22 injection at 0936, Until Discontinu ed, Routine, Intra-op carvediloL 2021-03- No [id number] 25mg Take 1 Univers 25 mg 2-15 03-16 tablet by ity of tablet 00:00: 04:59 mouth 2 [place] 00 :00 (two) Medical times Branch daily with meals for 90 days. carvediloL 2021-03- No [id number] 25mg Take 1 Univers 25 mg 2-15 03-16 tablet by ity of tablet 00:00: 04:59 mouth 2 [place] 00 :00 (two) Medical times Branch daily with meals for 90 days. carvediloL 2021-03- No [id number] 25mg Take 1 Univers 25 mg 2-15 03-16 tablet by ity of tablet 00:00: 04:59 mouth 2 [place] 00 :00 (two) Medical times Branch daily with meals for 90 days. carvediloL 2021-03- No [id number] 25mg Take 1 Univers 25 mg 2-15 03-16 tablet by ity of tablet 00:00: 04:59 mouth 2 [place] 00 :00 (two) Medical times Branch daily with meals for 90 days. carvediloL 2021-03- No [id number] 25mg Take 1 Univers 25 mg 2-15 03-16 tablet by ity of tablet 00:00: 04:59 mouth 2 [place] 00 :00 (two) Medical times Branch daily with meals for 90 days. carvediloL 2021-03- No [id number] 25mg Take 1 Univers 25 mg 2-15 03-16 tablet by ity of tablet 00:00: 04:59 mouth 2 [place] 00 :00 (two) Medical times Branch daily with meals for 90 days. carvediloL 2021-03- No [id number] 25mg Take 1 Univers 25 mg 2-15 -16 tablet by ity of tablet 00:00: 04:59 mouth 2 [place] 00 :00 (two) Medical times [place] daily with meals for 90 days. carvediloL 2021-03- No [id number] 25mg Take 1 Univers 25 mg 2-15 - tablet by ity of tablet 00:00: 00:00 mouth 2 [place] 00 :00 (two) Medical times [place] daily with meals for 90 days. cephALEXin 2021-03- No [id number] 500mg Take 1 Univers 500 mg 2-15 - [id number] capsule by ity of capsule 00:00: 05:59 mouth 4 [place] 00 :00 (four) Medical times [place] daily for 7 days. cephALEXin 2021-03- No [id number] 500mg Take 1 Univers 500 mg 2-15 - [id number] capsule by ity of capsule 00:00: 05:59 mouth 4 [place] 00 :00 (four) Medical times [place] daily for 7 days. cephALEXin 2021-03- No [id number] 500mg Take 1 Univers 500 mg 2-15 - [id number] capsule by ity of capsule 00:00: 05:59 mouth 4 [place] 00 :00 (four) Medical times [place] daily for 7 days. carvediloL 2021-03 Yes 25mg 25 mg, Unive rs (COREG) 2-14 Oral, BID ity of tablet 25 14:00: MEALS, [place] mg 00 First dose Medical (after Branch last modificati on) on Thu03/12/22 at 0800, Until Discontinu ed, Routine carvediloL 2021-03 No 25mg 25 mg, Univ ers (COREG) [...] Until Discontinu ed, Routine lisinopriL 2021-03 No 40mg 40 mg, Univ ers (PRINIVIL,Z 2-13 12-16 Oral, ity of ESTRIL) 15:00: 02:06 DAILY, [place] tablet 40 00 :31 First dose Medi shade mg (after Branch last modificati on) on Thu03/11/22 at 0900, Until Discontinu ed, Routine magnesium 2021-03 No 30mL 30 mL, Unive rs hydroxide [...] 2000, Until Discontinu ed, Routine sennosides- 2021-03 Yes 1{tbl} 1 tablet, Univers docusate 2-11 Oral, BID, ity o f sodium 02:00: First dose [place] (SENOKOT-S) 00 (after Medica l 8.6-50 mg last Branch per tablet modificati 1 tablet on) on 03/08/22 at 2000, Until Discontinu ed, Routine sennosides- 2021-03- No 1{tbl} 1 tablet, Univers docusate 05-1016 Oral, BID, ity of sodium 02:00: 02:06 First dose [place] (SENOKOT-S) 00 :31 (after Medica l 8.6-50 mg last Branch per tablet modificati 1 tablet on) on 03/08/22 at 2000, Until Discontinu ed, Routine lisinopriL 2021-03 Yes 20mg 20 mg, Unive rs (PRINIVIL,Z 05-08 Oral, ity of ESTRIL) 15:00: DAILY, [place] tablet 20 00 First dose Medi shade mg on Fri Branch 03/07/22 at 0900, Until Discontinu ed, Routine lisinopriL 2021-03- No 20mg 20 mg, Univ ers (PRINIVIL,Z 05-08 Oral, ity of ESTRIL) 15:00: 13:15 DAILY, [place] tablet 20 00 :27 First dose Medi shade mg on Fri Branch 03/07/22 at 0900, Until Discontinu ed, Routine lidocaine 2021-03- No PRN, Univers 1% (PF) 05-08 Starting ity of (XYLOCAINE) 14:22: 16:33 on Fri [place] injection 00 :52 03/07/22 at [facility] 0822, Branch Until Thu03/07/22 at 1033, Routine, Intra-op heparin 2021-03- No PRN, Univers 10,000 05-08 Starting ity of units in NS 14:12: 16:33 on Fri [place] 1000 mL for 00 :52 03/07/[address] [facility], Branch Intra-op iopamidol 2021-03- No PRN, Univers (ISOVUE 05-08 Starting ity of 370-500 mL) 14:12: 16:33 on Fri [place] injection 00 :52 03/07/22 at [facility] 0812, Branch Until Thu03/07/22 at 1033, Routine, Intra-op ceFAZolin 2021-03- No 1000mg 1,000 mg, Univers (ANCEF) 05-07 [...] 2021-03 No 1000mg 1,000 mg, Univers (ANCEF) 213 Intravenou ity o f 1,000 mg in [...] [place] mg 00 First dose Medical on Thu03/05/22 at 0900, Until Discontinu ed, Routine aspirin 2021-03 Yes 81mg 81 mg, Univers chewable 2-07 Oral, ity of tablet 81 15:00: DAILY, [place] mg 00 First dose Medical on Thu03/05/22 at 0900, Until Discontinu ed, Routine aspirin 2021-03 No 81mg 81 mg, Univers chewable 05-06 12-16 Oral, ity of tablet 81 15:00: 02:06 DAILY, [place] mg 00 :31 First dose Medical on Thu [place] 03/05/22 at 0900, Until Discontinu ed, Routine lisinopriL 2021-03 No 20mg 20 mg, Univ ers (PRINIVIL,Z 05-06-07 Oral, ity of ESTRIL) 15:00: 18:16 DAILY, [place] tablet 20 00 :42 First dose Medi shade mg on Thu03/05/22 at 0900, Until Discontinu ed, Routine carvediloL 2021-03 Yes 12.5mg 12.5 mg, U nivers (COREG) 2- Oral, BID ity of tablet 12.5 14:00: MEALS, [place] mg 00 First dose Medical on Thu [place] 03/05/22 at 0800, Until Discontinu ed, Routine carvediloL 2021-03 No 12.5mg 12.5 mg, Univers (COREG) 2 12-14 Oral, BID ity of tablet 12.5 14:00: 13:39 MEALS, [place] mg 00 :59 First dose Medical on Thu03/05/22 at 0800, Until Discontinu ed, Routine HYDROcodone 2021-03 Yes 1{tbl} 1 tablet, Univers -acetaminop 2-07 Oral, ity of hen (NORCO 05:26: Q6HPRN, [place] 5) 5-325 mg 41 Starting Medi shade tablet 1 on Thu Branch tablet 03/04/22 at 2326, Until Discontinu ed, Routine, Pain (scale 7-10) HYDROcodone 2021-03 No 1{tbl} 1 tablet, Univers -acetaminop 2-10 08-14 Oral, ity of hen (NORCO 05:26: 13:41 Q6HPRN, [place] 5) 5-325 mg 41 :39 Starting Medi shade tablet 1 on Thu Branch tablet 03/04/22 at 2326, Until Thu03/12/22 at 0741, Routine, Pain (scale 7-10) Sliding 2021-03 Yes Subcutaneo Univ ers Scale 2-07 us, AC+HS, ity of Insulin-Reg 03:00: First dose [place] ular [facility] Branch 2100, Until Discontinu ed, Routine atorvastati 2021-03 Yes 20mg 20 mg, Univ ers n (LIPITOR) 2-07 Oral, QHS, it y of tablet 20 03:00: First dose [place] mg 00 on [facility] 03/04/22 at Branch 2100, Until Discontinu ed, Routine Sliding 2021-03 Yes Subcutaneo Univ ers Scale 2-07 us, AC+HS, ity of Insulin-Reg 03:00: First dose [place] ular + [facility]22 at Branch 2100, Until Discontinu ed, Routine atorvastati 2021-03 Yes 20mg 20 mg, Univ ers n (LIPITOR) 2-07 Oral, QHS, it y of tablet 20 03:00: First dose [place] mg 00 on [facility] 03/04/22 at Branch 2100, Until Discontinu ed, Routine Sliding 2021-03- No Subcutaneo Uni vers Scale 2-07 12-16 us, AC+HS, ity of Insulin-Reg 03:00: 02:06 First dose [place] ular + Fsbg 00 :31 on [facility] Testing 03/04/22 at Branch 2100, Until Discontinu ed, Routine atorvastati 2021-03- No 20mg 20 mg, Uni vers n (LIPITOR) 2- 12-16 Oral, QHS, i ty of tablet 20 03:00: 02:06 First dose [place] mg 00 :31 on [facility] 03/04/22 at Branch 2100, Until Discontinu ed, Routine polyethylen 2021-03 Yes 17g 17 g, Unive rs e glycol 2-07 Oral, BID, ity o f 3350 powder 02:00: First dose [place] 17 g 00 on [facility] 03/04/22 at Branch 1999, Until Discontinu ed, Routine heparin 2021-03 Yes 5000U 5,000 Univers (porcine) 2-07 Units, ity of injection 02:00: Subcutaneo [place] 5,000 Units 00 us, Q12H, Med ical First dose Branch on Thu03/04/22 at 1999, Until Discontinu ed, Routine insulin 2021-03 Yes 7U 7 Units, Univer s glargine 2-07 Subcutaneo ity o f (LANTUS 02:00: us, BID, [place] U-100) 00 First dose Medical injection 7 on [facility] Units 03/04/22 at 1999, Until Discontinu ed, Routine polyethylen 2021-03 Yes 17g 17 g, Unive rs e glycol 2-07 Oral, BID, ity o f 3350 powder 02:00: First dose [place] 17 g 00 on [facility] 03/04/22 at [place] 1999, Until Discontinu ed, Routine heparin 2021-03 Yes 5000U 5,000 Univers (porcine) 2-07 Units, ity of injection 02:00: Subcutaneo [place] 5,000 Units 00 us, Q12H, Med ical First dose Branch on [facility] 03/04/22 at 1999, Until Discontinu ed, Routine insulin 2021-03 Yes 7U 7 Units, Univer s glargine 2-07 Subcutaneo ity o f (LANTUS 02:00: us, BID, [place] U-100) 00 First dose Medical injection 7 on [facility] Units 03/04/22 at 1999, Until Discontinu ed, Routine polyethylen 2021-03- No 17g 17 g, Univ ers e glycol 2-10 08-16 Oral, BID, ity of 3350 powder 02:00: 02:06 First dose [place] 17 g 00 :31 on [facility] 03/04/22 at [place] 1999, Until Discontinu ed, Routine heparin 2021-03- No 5000U 5,000 Univers (porcine) 2-10 08- Units, ity of injection 02:00: 02:06 Subcutaneo [place] 5,000 Units 00 :31 us, Q12H, Med ical First dose Branch on [facility] 03/04/22 at 1999, Until Discontinu ed, Routine insulin 2021-03- No 7U 7 Units, Unive rs glargine 2-10 08-16 Subcutaneo ity of (LANTUS 02:00: 02:06 us, BID, [place] U-100) 00 :31 First dose Medical injection 7 on [facility] Units 03/04/22 at 2000, Until Discontinu ed, Routine sennosides- 2021-03- No 1{tbl} 1 tablet, Univers docusate 05-06 12-10 Oral, ity of sodium 00:15: 14:08 DAILY, [place] (SENOKOT-S) 00 :04 First dose Me dical 8.6-50 mg on e Branch per tablet 03/04/22 at 1 tablet 1815, Until Discontinu ed, Routine acetaminoph 2021-03 Yes 650mg 650 mg, Un davy en 2-06 Oral, ity of (TYLENOL) 23:57: Q6HPRN, [place] tablet 650 06 Starting Medic al mg on Tue Branch 03/04/22 at 1757, Until Discontinu ed, Routine, Pain (scale 1-3) acetaminoph 2021-03 Yes 650mg 650 mg, Un davy en 2-06 Oral, ity of (TYLENOL) 23:57: Q6HPRN, [place] tablet 650 06 Starting Medic al mg on Tue Branch 03/04/22 at 1757, Until Discontinu ed, Routine, Pain (scale 1-3) acetaminoph 2021-03 No 650mg 650 mg, U nivers en 2-06 12-16 Oral, ity of (TYLENOL) 23:57: 02:06 Q6HPRN, [facility] s tablet 650 06 :31 Starting Medic al mg on Tue Branch 03/04/22 at 1757, Until [place] 03/13/22 at 2006, Routine, Pain (scale 1-3) dextrose 2021-03 Yes 250mL 250 mL, IV Un davy 10% (D10W) 2-06 Infusion, ity of bolus 23:54: PRN - SEE [place] infusion 50 INSTRUCTIO Medic al 250 mL NS, Branch Administer over 60 Minutes, Other, If blood glucose is < or = 70 mg/dL and patient is unable to swallow or has mental status changes, Starting on e 03/04/22 at 1754
If blood glucose is [...] glucose is < 80 mg/dL, repeat.
dextrose 2021- Yes 250mL 250 mL, IV Un davy 10% (D10W) 2-06 Infusion, ity of bolus 23:54: PRN - SEE [place] infusion 50 INSTRUCTIO Medic al 250 mL [...] 250 mL, IV U nivers 10% (D10W) 2- 12-16 Infusion, ity of bolus 23:54: 02:06 PRN - SEE [place] infusion 50 :31 INSTRUCTIO Medic al 250 [...] KIT) 48 Starting Medical injection 1 on Tue Branch mg 03/04/22 at 1754, Until Discontinu ed, CHARMAINE, Blood Glucose < or = 70 mg/dL and patient is unable to swallow or has mental changes. glucagon 2021-03 Yes 1mg 1 mg, Univers (GLUCAGEN 2-06 Intramuscu ity of DIAGNOSTIC 23:54: [place], PRN, [place] KIT) 48 Starting Medical injection 1 on Tue Branch mg 03/04/22 at 1754, Until Discontinu ed, CHARMAINE, Blood Glucose < or = 70 mg/dL and patient is unable to swallow or has mental changes. glucagon 2021-03- No 1mg 1 mg, Univers (GLUCAGEN 05-0516 Intramuscu ity of DIAGNOSTIC 23:54: 02:06 lar, PRN, [place] KIT) 48 :31 Starting Medical injection 1 on e Branch mg 03/04/22 at 1754, Until [place] 03/13/22 at 2006, CHARMAINE, Blood Glucose < or = 70 mg/dL and patient is unable to swallow or has mental changes. cephALEXin 2021-03- No [id number] 500mg Take 1 [facility] 500 mg 04-14 capsule by ity of capsule 00:00: 05:59 mouth 4 [place] 00 :00 (four) Medical times Branch daily for 14 days. cephALEXin 2021-03- No [id number] 500mg Take 1 [facility] 500 mg 04-14 capsule by ity of capsule 00:00: 05:59 mouth 4 [place] 00 :00 (four) Medical times Branch daily for 14 days. cephALEXin 2021-2021- No [id number] 500mg Take 1 [facility] 500 mg 04-14 capsule by ity of capsule 00:00: 05:59 mouth 4 [place] 00 :00 (four) Medical times Branch daily for 14 days. cephALEXin 2021-03- No [id number] 500mg Take 1 [facility] 500 mg 04-14 capsule by ity of capsule 00:00: 05:59 mouth 4 [place] 00 :00 (four) Medical times Branch daily for 14 days. cephALEXin 2021-03- No [id number] 500mg Take 1 [facility] 500 mg 04-14 capsule by ity of capsule 00:00: 05:59 mouth 4 [place] 00 :00 (four) Medical times Branch daily for 14 days. cephALEXin 2021-03- No [id number] 500mg Take 1 [facility] 500 mg 04-14 capsule by ity of capsule 00:00: 05:59 mouth 4 [place] 00 :00 (four) Medical times Branch daily for 14 days. cephALEXin 2021-03- No 500mg 500 mg, Un davy (KEFLEX) 04-08- Oral, ity of capsule 500 05:15: 04:20 [...] 50mg Take 1 Univ ers mg tablet -09 tablet by ity o f 00:00: mouth [place] 00 every 6 Medical (six) Branch hours as needed (pain). Indication s: acute pain traMADoL 50 2021-03 Yes [id number] 50mg Take 1 Univ ers mg tablet -09 tablet by ity o f 00:00: mouth [...] 50mg Take 1 Univ ers mg tablet -09 tablet by ity o f 00:00: mouth [place] 00 every 6 Medical (six) Branch hours as needed (pain). Indication s: acute pain traMADoL 50 2021-03- No [id number] 50mg Take 1 Uni vers mg tablet 04-07 tablet by ity of 00:00: 00:00 mouth [place] 00 :00 every 6 Medical (six) Branch hours as needed (pain). Indication s: acute pain cephALEXin 2021-03- No [id number] 500mg Take 1 [facility] 500 mg 04-07 capsule by ity of capsule 00:00: 05:[address] [place] [id number] 00 :00 (four) Medical times Branch daily for 10 days. cephALEXin 2021-03- No [id number] 500mg Take 1 [facility] 500 mg 04-07 capsule by [facility] capsule 00:00: 00:00 mouth 4 [place] 00 :00 (four) Medical times Branch daily for 10 days. cephALEXin 2021-03- No [id number] 500mg Take 1 [facility] 500 mg 04-07 capsule by [facility] of capsule 00:00: 00:00 mouth 4 [place] 00 :00 (four) Medical times Branch daily for 10 days. cephALEXin 2021-03- No [id number] 500mg Take 1 [facility] 500 mg 04-07 capsule by [facility] of capsule 00:00: 00:00 mouth 4 [place] 00 :00 (four) Medical times Branch daily for 10 days. cephALEXin 2021-03- No [id number] 500mg Take 1 [facility] 500 mg 04-07 capsule by [facility] of capsule 00:00: 00:00 mouth 4 [place] 00 :00 (four) Medical times Branch daily for 10 days. cephALEXin 2021-03- No [id number] 500mg Take 1 [facility] 500 mg 04-07 capsule by [facility] of capsule 00:00: 00:00 mouth 4 [place] 00 :00 (four) Medical times Branch daily for 10 days. cephALEXin 2021-03 Yes [id number] 500mg Take 1 [facility] (KEFLEX) 0-18 [id number] capsule by ity of 500 mg 00:00: mouth 2 [place] capsule 00 (two) Medical times Branch daily. ibuprofen 2021-03 Yes [id number] 800mg Take 1 [facility] 800 mg 0-18 [id number] tablet by ity of tablet 00:00: mouth [place] 00 every 8 Medical (eight) Branch hours as needed for Pain (scale 4-6). cephALEXin 2021-03 Yes [id number] 500mg Take 1 [facility] (KEFLEX) 0-18 [id number] capsule by ity of 500 mg 00:00: mouth 2 [place] capsule 00 (two) Medical times Branch daily. ibuprofen 2021-03 Yes [id number] 800mg Take 1 [facility] 800 mg 0-18 [id number] tablet by ity of tablet 00:00: mouth [place] 00 every 8 Medical (eight) Branch hours as needed for Pain (scale 4-6). ibuprofen 2021-03 Yes [id number] 800mg Take 1 [facility] 800 mg 0-18 [id number] tablet by ity of tablet 00:00: mouth [place] 00 every 8 Medical (eight) Branch hours as needed for Pain (scale 4-6). ibuprofen 2021-03 Yes [id number] 800mg Take 1 [facility] 800 mg 0-18 [id number] tablet by ity of tablet 00:00: mouth [place] 00 every 8 Medical (eight) Branch hours as needed for Pain (scale 4-6). ibuprofen 2021-03 Yes [id number] 800mg Take 1 [facility] 800 mg 0-18 [id number] tablet by ity of tablet 00:00: mouth [place] 00 every 8 Medical (eight) Branch hours as needed for Pain (scale 4-6). ibuprofen 2021-03 Yes [id number] 800mg Take 1 [facility] 800 mg 0-18 [id number] tablet by ity of tablet 00:00: mouth [place] 00 every 8 Medical (eight) Branch hours as needed for Pain (scale 4-6). ibuprofen 2021-03 Yes [id number] 800mg Take 1 [facility] 800 mg 0-18 [id number] tablet by ity of tablet 00:00: mouth [place] 00 every 8 Medical (eight) Branch hours as needed for Pain (scale 4-6). ibuprofen 2021-03 Yes [id number] 800mg Take 1 [facility] 800 mg 0-18 [id number] tablet by ity of tablet 00:00: mouth [place] 00 every 8 Medical (eight) Branch hours as needed for Pain (scale 4-6). ibuprofen 2021-03 Yes [id number] 800mg Take 1 [facility] 800 mg 0-18 [id number] tablet by ity of tablet 00:00: mouth [place] 00 every 8 Medical (eight) Branch hours as needed for Pain (scale 4-6). ibuprofen 2021-03 Yes [id number] 800mg Take 1 [facility] 800 mg 0-18 [id number] tablet by ity of tablet 00:00: mouth [place] 00 every 8 Medical (eight) Branch hours as needed for Pain (scale 4-6). ibuprofen 2021-03 Yes [id number] 800mg Take 1 [facility] 800 mg 0-18 [id number] tablet by ity of tablet 00:00: mouth [place] 00 every 8 Medical (eight) Branch hours as needed for Pain (scale 4-6). ibuprofen 2021-03 Yes [id number] 800mg Take 1 [facility] 800 mg 0-18 [id number] tablet by ity of tablet 00:00: mouth [place] 00 every 8 Medical (eight) Branch hours as needed for Pain (scale 4-6). ibuprofen 2021-03 Yes [id number] 800mg Take 1 [facility] 800 mg 0-18 [id number] tablet by ity of tablet 00:00: mouth [place] 00 every 8 Medical (eight) Branch hours as needed for Pain (scale 4-6). ibuprofen 2021-03 Yes [id number] 800mg Take 1 [facility] 800 mg 0-18 [id number] tablet by ity of tablet 00:00: mouth [place] 00 every 8 Medical (eight) Branch hours as needed for Pain (scale 4-6). ibuprofen 2021-03 Yes [id number] 800mg Take 1 [facility] 800 mg 0-18 [id number] tablet by ity of tablet 00:00: mouth [place] 00 every 8 Medical (eight) Branch hours as needed for Pain (scale 4-6). ibuprofen 2021-03- No [id number] 800mg Take 1 [facility] 800 mg 0-18 12-29 [id number] tablet by ity o f tablet 00:00: 00:00 mouth [place] 00 :00 every 8 Medical (eight) Branch hours as needed for Pain (scale 4-6). ibuprofen 2021-03- No [id number] 800mg Take 1 [facility] 800 mg 0-18 12-29 [id number] tablet by ity o f tablet 00:00: 00:00 mouth [place] 00 :00 every 8 Medical (eight) Branch hours as needed for Pain (scale 4-6). ibuprofen 2021-03- No [id number] 800mg Take 1 [facility] 800 mg 0-18 12-29 [id number] tablet by ity o f tablet 00:00: 00:00 mouth [place] 00 :00 every 8 Medical (eight) Branch hours as needed for Pain (scale 4-6). ibuprofen 2021-03- No [id number] 800mg Take 1 [facility] 800 mg 0-18 12-29 [id number] tablet by ity o f tablet 00:00: 00:00 mouth [place] 00 :00 every 8 Medical (eight) Branch hours as needed for Pain (scale 4-6). cephALEXin 2021-03- No [id number] 500mg Take 1 [facility] (KEFLEX) 0-18 11-16 [id number] capsule by it y of 500 mg 00:00: 00:00 mouth 2 [place] capsule 00 :00 (two) Medical times Branch daily. cephALEXin 2021-03- No [id number] 500mg Take 1 [facility] (KEFLEX) 0-18 11-16 [id number] capsule by it y of 500 mg 00:00: 00:00 mouth 2 [place] capsule 00 :00 (two) Medical times Branch daily. cephALEXin 2021-03- No [id number] 500mg Take 1 [facility] (KEFLEX) 0-18 11-16 [id number] capsule by it y of 500 mg 00:00: 00:00 mouth 2 [place] capsule 00 :00 (two) Medical times Branch daily. cephALEXin 2021-03- No [id number] 500mg Take 1 [facility] (KEFLEX) 0-18 11-16 [id number] capsule by it y of 500 mg 00:00: 00:00 mouth 2 [place] capsule 00 :00 (two) Medical times Branch daily. cephALEXin 2021-03- No [id number] 500mg Take 1 [facility] (KEFLEX) 0-18 11-16 [id number] capsule by it y of 500 mg [...] approved by: ED PROVIDER doxycycline 2021-0 Yes [id number] 100mg Take 1 [facility] hyclate 100 9-28 capsule by [facility] mg capsule 00:00: mouth 2 [place] 00 (two) [facility] times [facility] daily. doxycycline 2021-0 Yes [id number] 100mg Take 1 [facility] hyclate 100 9-28 capsule by [facility] mg capsule 00:00: mouth 2 [place] 00 (two) [facility] times [facility] daily. doxycycline 2021-0 Yes [id number] 100mg Take 1 [facility] hyclate 100 9-28 capsule by [facility] mg capsule 00:00: mouth 2 [place] 00 (two) [facility] times [facility] daily. doxycycline 2021-0 Yes [id number] 100mg Take 1 [facility] hyclate 100 9-28 capsule by [facility] mg capsule 00:00: mouth 2 [place] 00 (two) [facility] times [facility] daily. doxycycline 2021-0 Yes [id number] 100mg Take 1 [facility] hyclate 100 9-28 capsule by [facility] mg capsule 00:00: mouth 2 [place] 00 (two) [facility] times [facility] daily. doxycycline 2022-0 Yes [id number] 100mg Take 1 [facility] hyclate 100 9-28 capsule by [facility] mg capsule 00:00: mouth 2 [place] 00 (two) [facility] times [facility] daily. doxycycline 2022-0 Yes [id number] 100mg Take 1 [facility] hyclate 100 9-28 capsule by [facility] of mg capsule 00:00: mouth 2 [place] 00 (two) [facility] times [facility] daily. doxycycline 2022-0 Yes [id number] 100mg Take 1 [facility] hyclate 100 9-28 capsule by [facility] y of mg capsule 00:00: mouth 2 [place] 00 (two) [facility] times [facility] daily. doxycycline 2022-0 Yes [id number] 100mg Take 1 [facility] hyclate 100 9-28 capsule by [facility] y of mg capsule 00:00: mouth 2 [place] 00 (two) [facility] times [facility] daily. doxycycline 2022-0 Yes [id number] 100mg Take 1 [facility] hyclate 100 9-28 capsule by [facility] y of mg capsule 00:00: mouth 2 [place] 00 (two) Medical times [facility] daily. doxycycline 2022-0 Yes [id number] 100mg Take 1 [facility] hyclate 100 9-28 capsule by [facility] y of mg capsule 00:00: mouth 2 [place] 00 (two) [facility] times [facility] daily. doxycycline 2022-0 Yes [id number] 100mg Take 1 [facility] hyclate 100 9-28 capsule by [facility] mg capsule 00:00: mouth 2 [place] 00 (two) [facility] times [facility] daily. doxycycline 2022-0 2022- No [id number] 100mg Take 1 [facility] hyclate 100 9-28 12-15 capsule by i ty of mg capsule 00:00: 00:00 mouth 2 [place] 00 :00 (two) [facility] times [facility] daily. doxycycline 2022-0 2022- No [id number] 100mg Take 1 [facility] hyclate 100 9-28 12-15 capsule by i ty of mg capsule 00:00: 00:00 mouth 2 [place] 00 :00 (two) [facility] times [facility] daily. doxycycline 2022-0 2022- No [id number] 100mg Take 1 [facility] hyclate 100 9-28 12-15 capsule by i ty of mg capsule 00:00: 00:00 mouth 2 [place] 00 :00 (two) [facility] times [facility] daily. doxycycline 2022-0 2022- No [id number] 100mg Take 1 [facility] hyclate 100 9-28 [...] 2022-0 No Unknown 3-13 00:00: 00 amlodipine 2-0 No 1mg 10 [...] 2022-0 No Unknown 3-08 00:00: 00 glimepiride 2022-0 No 1mg 4 [...] 2022-0 No Unknown 3-08 00:00: 00 carvedilol 2022-0 No 1mg [...] 2022-0 No Unknown 3-08 00:00: 00 Dose 1-1 No Unknown 2-18 00:00: 00 Dose 1-1 No Unknown 2-18 00:00: 00 Dose 1-1 No Unknown 2-18 00:00: 00 Dose 1-1 No Unknown 2-18 00:00: 00 Dose 1-1 No Unknown 2-18 00:00: 00 Dose 1-1 No Unknown 2-18 00:00: 00 Dose 1-1 No Unknown 2-18 00:00: 00 Dose 1-1 No Unknown 2-18 00:00: 00 Dose 2020-1 No Unknown 2-18 00:00: 00 Dose 1-1 [...] 1-1 No Unknown 2-18 00:00: 00 pioglitazon 1-0 No 1mg e 30 mg 8-27 tablet 00:00: 00 pioglitazon 1-0 No 1mg e 30 mg 8-27 tablet 00:00: 00 pioglitazon 1-0 No 1mg e 30 mg 8-27 tablet 00:00: 00 pioglitazon 1-0 No 1mg e 30 mg 8-27 tablet [...] Unknown 9-25 00:00: 00 Dose 2020-0 No Unknown 9-25 00:00: 00 Dose 2020-0 No 2 Unknown 9-25 00:00: 00 amlodipine 2020-0 No 1mg 10 [...] 325 00 mg tablet insulin 2019-0 Yes [id number] 10U inject 10 [facility] glargine 9-22 Units ity of 100 unit/mL 00:00: under the [place] injection 00 skin 2 Medical (two) Branch times daily. empaglifloz 2020-0 Yes [id number] 1{tbl} Take 1 [facility] in 9-22 tablet by ity of (JARDIANCE) 00:00: mouth [place] 10 mg Tab 00 daily. Medical Branch insulin 2020-0 Yes [id number] 10U inject 10 [facility] glargine 9-22 Units ity of 100 unit/mL 00:00: under the [place] injection 00 skin 2 Medical (two) Branch times daily. empaglifloz 2020-0 Yes [id number] 1{tbl} Take 1 [facility] in 9-22 tablet by ity of (JARDIANCE) 00:00: mouth [place] 10 mg Tab 00 daily. Medical Branch insulin 2020-0 Yes [id number] 10U inject 10 [facility] glargine 9-22 Units ity of 100 unit/mL 00:00: under the [place] injection 00 skin 2 Medical (two) Branch times daily. empaglifloz 2020-0 Yes [id number] 1{tbl} Take 1 [facility] in 9-22 tablet by ity of (JARDIANCE) 00:00: mouth [place] 10 mg Tab 00 daily. Medical Branch insulin 2020-0 Yes [id number] 10U inject 10 [facility] glargine 9-22 Units ity of 100 unit/mL 00:00: under the [place] injection 00 skin 2 Medical (two) Branch times daily. empaglifloz 2020-0 Yes [id number] 1{tbl} Take 1 [facility] in 9-22 tablet by ity of (JARDIANCE) 00:00: mouth [place] 10 mg Tab 00 daily. Medical Branch insulin 2020-0 Yes [id number] 10U inject 10 [facility] glargine 9-22 Units ity of 100 unit/mL 00:00: under the [place] injection 00 skin 2 Medical (two) Branch times daily. empaglifloz 2020-0 Yes [id number] 1{tbl} Take 1 [facility] in 9-22 tablet by ity of (JARDIANCE) 00:00: mouth [place] 10 mg Tab 00 daily. Medical Branch insulin 2020-0 Yes [id number] 10U inject 10 [facility] glargine 9-22 Units ity of 100 unit/mL 00:00: under the [place] injection 00 skin 2 Medical (two) Branch times daily. empaglifloz 2020-0 Yes [id number] 1{tbl} Take 1 [facility] in 9-22 tablet by ity of (JARDIANCE) 00:00: mouth [place] 10 mg Tab 00 daily. Medical Branch insulin 2020-0 Yes [id number] 10U inject 10 [facility] glargine 9-22 Units ity of 100 unit/mL 00:00: under the [place] injection 00 skin 2 Medical (two) Branch times daily. empaglifloz 2020-0 Yes [id number] 1{tbl} Take 1 [facility] in 9-22 tablet by ity of (JARDIANCE) 00:00: mouth [place] 10 mg Tab 00 daily. Medical Branch insulin 2020-0 Yes [id number] 10U inject 10 [facility] glargine 9-22 Units ity of 100 unit/mL 00:00: under the [place] injection 00 skin 2 Medical (two) Branch times daily. empaglifloz 2020-0 Yes [id number] 1{tbl} Take 1 [facility] in 9-22 tablet by ity of (JARDIANCE) 00:00: mouth [place] 10 mg Tab 00 daily. Medical Branch insulin 2020-0 Yes [id number] 10U inject 10 [facility] glargine 9-22 Units ity of 100 unit/mL 00:00: under the [place] injection 00 skin 2 Medical (two) Branch times daily. empaglifloz 2020-0 Yes [id number] 1{tbl} Take 1 [facility] in 9-22 tablet by ity of (JARDIANCE) 00:00: mouth [place] 10 mg Tab 00 daily. Medical Branch insulin 2020-0 Yes [id number] 10U inject 10 [facility] glargine 9-22 Units ity of 100 unit/mL 00:00: under the [place] injection 00 skin 2 Medical (two) Branch times daily. empaglifloz 2020-0 Yes [id number] 1{tbl} Take 1 [facility] in 9-22 tablet by ity of (JARDIANCE) 00:00: mouth [place] 10 mg Tab 00 daily. Medical Branch insulin 2020-0 Yes [id number] 10U inject 10 [facility] glargine 9-22 Units ity of 100 unit/mL 00:00: under the [place] injection 00 skin 2 Medical (two) Branch times daily. empaglifloz 2020-0 Yes [id number] 1{tbl} Take 1 [facility] in 9-22 tablet by ity of (JARDIANCE) 00:00: mouth [place] 10 mg Tab 00 daily. Medical Branch insulin 2020-0 Yes [id number] 10U inject 10 [facility] glargine 9-22 Units ity of 100 unit/mL 00:00: under the [place] injection 00 skin 2 Medical (two) Branch times daily. empaglifloz 2020-0 Yes [id number] 1{tbl} Take 1 [facility] in 9-22 tablet by ity of (JARDIANCE) 00:00: mouth [place] 10 mg Tab 00 daily. Medical Branch insulin 2020-0 Yes [id number] 10U inject 10 [facility] glargine 9-22 Units ity of 100 unit/mL 00:00: under the [place] injection 00 skin 2 Medical (two) Branch times daily. empaglifloz 2020-0 Yes [id number] 1{tbl} Take 1 [facility] in 9-22 tablet by ity of (JARDIANCE) 00:00: mouth [place] 10 mg Tab 00 daily. Medical Branch insulin 2020-0 Yes [id number] 10U inject 10 [facility] glargine 9-22 Units ity of 100 unit/mL 00:00: under the [place] injection 00 skin 2 Medical (two) Branch times daily. empaglifloz 2020-0 Yes [id number] 1{tbl} Take 1 [facility] in 9-22 tablet by ity of (JARDIANCE) 00:00: mouth [place] 10 mg Tab 00 daily. Medical Branch insulin 2020-0 Yes [id number] 10U inject 10 [facility] glargine 9-22 Units ity of 100 unit/mL 00:00: under the [place] injection 00 skin 2 Medical (two) Branch times daily. empaglifloz 2020-0 Yes [id number] 1{tbl} Take 1 [facility] in 9-22 tablet by ity of (JARDIANCE) 00:00: mouth [place] 10 mg Tab 00 daily. Medical Branch insulin 2020-0 Yes [id number] 10U inject 10 [facility] glargine 9-22 Units ity of 100 unit/mL 00:00: under the [place] injection 00 skin 2 Medical (two) Branch times daily. empaglifloz 2020-0 Yes [id number] 1{tbl} Take 1 [facility] in 9-22 tablet by ity of (JARDIANCE) 00:00: mouth [place] 10 mg Tab 00 daily. Medical Branch insulin 2020-0 Yes [id number] 10U inject 10 [facility] glargine 9-22 Units ity of 100 unit/mL 00:00: under the [place] injection 00 skin 2 Medical (two) Branch times daily. empaglifloz 2020-0 Yes [id number] 1{tbl} Take 1 [facility] in 9-22 tablet by ity of (JARDIANCE) 00:00: mouth [place] 10 mg Tab 00 daily. Medical Branch insulin 2020-0 Yes [id number] 10U inject 10 [facility] glargine 9-22 Units ity of 100 unit/mL 00:00: under the [place] injection 00 skin 2 Medical (two) Branch times daily. empaglifloz 2020-0 Yes [id number] 1{tbl} Take 1 [facility] in 9-22 tablet by ity of (JARDIANCE) 00:00: mouth [place] 10 mg Tab 00 daily. Medical Branch insulin 2020-0 Yes [id number] 10U inject 10 [facility] glargine 9-22 Units ity of 100 unit/mL 00:00: under the [place] injection 00 skin 2 Medical (two) Branch times daily. empaglifloz 2020-0 Yes [id number] 1{tbl} Take 1 [facility] in 9-22 tablet by ity of (JARDIANCE) 00:00: mouth [place] 10 mg Tab 00 daily. Medical Branch insulin 2020-0 Yes [id number] 10U inject 10 [facility] glargine 9-22 Units ity of 100 unit/mL 00:00: under the [place] injection 00 skin 2 Medical (two) Branch times daily. empaglifloz 2020-0 Yes [id number] 1{tbl} Take 1 [facility] in 9-22 tablet by ity of (JARDIANCE) 00:00: mouth [place] 10 mg Tab 00 daily. Medical Branch insulin 2020-0 Yes [id number] 10U inject 10 [facility] glargine 9-22 Units ity of 100 unit/mL 00:00: under the [place] injection 00 skin 2 Medical (two) Branch times daily. empaglifloz 2020-0 Yes [id number] 1{tbl} Take 1 [facility] in 9-22 tablet by ity of (JARDIANCE) 00:00: mouth [place] 10 mg Tab 00 daily. Medical Branch insulin 2020-0 Yes [id number] 10U inject 10 [facility] glargine 9-22 Units ity of 100 unit/mL 00:00: under the [place] injection 00 skin 2 Medical (two) Branch times daily. empaglifloz 2020-0 Yes [id number] 1{tbl} Take 1 [facility] in 9-22 tablet by ity of (JARDIANCE) 00:00: mouth [place] 10 mg Tab 00 daily. Medical Branch insulin 2020-0 Yes [id number] 10U inject 10 [facility] glargine 9-22 Units ity of 100 unit/mL 00:00: under the [place] injection 00 skin 2 Medical (two) Branch times daily. empaglifloz 2020-0 Yes [id number] 1{tbl} Take 1 [facility] in 9-22 tablet by ity of (JARDIANCE) 00:00: mouth [place] 10 mg Tab 00 daily. Medical Branch insulin 2020-0 Yes [id number] 10U inject 10 [facility] glargine 9-22 Units ity of 100 unit/mL 00:00: under the [place] injection 00 skin 2 Medical (two) Branch times daily. empaglifloz 2020-0 Yes [id number] 1{tbl} Take 1 [facility] in 9-22 tablet by ity of (JARDIANCE) 00:00: mouth [place] 10 mg Tab 00 daily. Medical Branch insulin 2020-0 Yes [id number] 10U inject 10 [facility] glargine 9-22 Units ity of 100 unit/mL 00:00: under the [place] injection 00 skin 2 Medical (two) Branch times daily. empaglifloz 2020-0 Yes [id number] 1{tbl} Take 1 [facility] in 9-22 tablet by ity of (JARDIANCE) 00:00: mouth [place] 10 mg Tab 00 daily. Medical Branch insulin 2020-0 Yes [id number] 10U inject 10 [facility] glargine 9-22 Units ity of 100 unit/mL 00:00: under the [place] injection 00 skin 2 Medical (two) Branch times daily. empaglifloz 2020-0 Yes [id number] 1{tbl} Take 1 [facility] in 9-22 tablet by ity of (JARDIANCE) 00:00: mouth [place] 10 mg Tab 00 daily. Medical Branch insulin 2020-0 Yes [id number] 10U inject 10 [facility] glargine 9-22 Units ity of 100 unit/mL 00:00: under the [place] injection 00 skin 2 Medical (two) Branch times daily. empaglifloz 2020-0 Yes [id number] 1{tbl} Take 1 [facility] in 9-22 tablet by ity of (JARDIANCE) 00:00: mouth [place] 10 mg Tab 00 daily. Medical Branch insulin 2020-0 Yes [id number] 10U inject 10 [facility] glargine 9-22 Units ity of 100 unit/mL 00:00: under the [place] injection 00 skin 2 Medical (two) Branch times daily. empaglifloz 2020-0 Yes [id number] 1{tbl} Take 1 [facility] in 9-22 tablet by ity of (JARDIANCE) 00:00: mouth [place] 10 mg Tab 00 daily. Medical Branch insulin 2020-0 Yes [id number] 10U inject 10 [facility] glargine 9-22 Units ity of 100 unit/mL 00:00: under the [place] injection 00 skin 2 Medical (two) Branch times daily. empaglifloz 2020-0 Yes [id number] 1{tbl} Take 1 [facility] in 9-22 tablet by ity of (J[place]IANCE) 00:00: mouth [place] 10 mg Tab 00 daily. Medical Branch insulin 2020-0 Yes [id number] 10U inject 10 [facility] glargine 9-22 Units ity of 100 unit/mL 00:00: under the [place] injection 00 skin 2 Medical (two) Branch times daily. empaglifloz 2020-0 Yes [id number] 1{tbl} Take 1 [facility] in 9-22 tablet by ity of (J[place]IANCE) 00:00: mouth [place] 10 mg Tab 00 daily. Medical Branch insulin 2020-0 Yes [id number] 10U inject 10 [facility] glargine 9-22 Units ity of 100 unit/mL 00:00: under the [place] injection 00 skin 2 Medical (two) Branch times daily. empaglifloz 2020-0 Yes [id number] 1{tbl} Take 1 [facility] in 9-22 tablet by ity of ([place]IANCE) 00:00: mouth [place] 10 mg Tab 00 daily. Medical Branch insulin 2020-0 Yes [id number] 10U inject 10 [facility] glargine 9-22 Units ity of 100 unit/mL 00:00: under the [place] injection 00 skin 2 Medical (two) Branch times daily. empaglifloz 2020-0 Yes [id number] 1{tbl} Take 1 [facility] in 9-22 tablet by ity of ([place]) 00:00: mouth [place] 10 mg Tab 00 daily. Medical Branch insulin 2020-0 Yes [id number] 10U inject 10 [facility] glargine 9-22 Units ity of 100 unit/mL 00:00: under the [place] injection 00 skin 2 Medical (two) Branch times daily. empaglifloz 2020-0 Yes [id number] 1{tbl} Take 1 [facility] in 9-22 tablet by ity of ([place]) 00:00: mouth [place] 10 mg Tab 00 daily. Medical Branch insulin 2020-0 Yes [id number] 10U inject 10 [facility] glargine 9-22 Units ity of 100 unit/mL 00:00: under the [place] injection 00 skin 2 Medical (two) Branch times daily. empaglifloz 2020-0 Yes [id number] 1{tbl} Take 1 [facility] in 9-22 tablet by ity of ([place]) 00:00: mouth [place] 10 mg Tab 00 daily. Medical Branch insulin 2020-0 Yes [id number] 10U inject 10 [facility] glargine 9-22 Units ity of 100 unit/mL 00:00: under the [place] injection 00 skin 2 Medical (two) Branch times daily. empaglifloz 2020-0 Yes [id number] 1{tbl} Take 1 [facility] in 9-22 tablet by ity of ([place]IANCE) 00:00: mouth [place] 10 mg Tab 00 daily. Medical Branch insulin 2020-0 Yes [id number] 10U inject 10 [facility] glargine 9-22 Units ity of 100 unit/mL 00:00: under the [place] injection 00 skin 2 Medical (two) Branch times daily. empaglifloz 2020-0 Yes [id number] 1{tbl} Take 1 [facility] in 9-22 tablet by ity of ([place]) 00:00: mouth [place] 10 mg Tab 00 daily. Medical Branch insulin 2020-0 Yes [id number] 10U inject 10 [facility] glargine 9-22 Units ity of 100 unit/mL 00:00: under the [place] injection 00 skin 2 Medical (two) Branch times daily. empaglifloz 2020-0 Yes [id number] 1{tbl} Take 1 [facility] in 9-22 tablet by ity of ([place]) 00:00: mouth [place] 10 mg Tab 00 daily. Medical Branch insulin 2020-0 Yes [id number] 10U inject 10 [facility] glargine 9-22 Units ity of 100 unit/mL 00:00: under the [place] injection 00 skin 2 Medical (two) Branch times daily. empaglifloz 2020-0 Yes [id number] 1{tbl} Take 1 [facility] in 9-22 tablet by ity of ([place]) 00:00: mouth [place] 10 mg Tab 00 daily. Medical Branch insulin 2020-0 Yes [id number] 10U inject 10 [facility] glargine 9-22 Units ity of 100 unit/mL 00:00: under the [place] injection 00 skin 2 Medical (two) Branch times daily. empaglifloz 2020-0 Yes [id number] 1{tbl} Take 1 [facility] in 9-22 tablet by ity of ([place]) 00:00: mouth [place] 10 mg Tab 00 daily. Medical Branch insulin 2020-0 Yes [id number] 10U inject 10 [facility] glargine 9-22 Units ity of 100 unit/mL 00:00: under the [place] injection 00 skin 2 Medical (two) Branch times daily. empaglifloz 2020-0 Yes [id number] 1{tbl} Take 1 [facility] in 9-22 tablet by ity of ([place]) 00:00: mouth [place] 10 mg Tab 00 daily. Medical Branch insulin 2020-0 Yes [id number] 10U inject 10 [facility] glargine 9-22 Units ity of 100 unit/mL 00:00: under the [place] injection 00 skin 2 Medical (two) Branch times daily. empaglifloz 2020-0 Yes [id number] 1{tbl} Take 1 [facility] in 9-22 tablet by ity of ([place]) 00:00: mouth [place] 10 mg Tab 00 daily. Medical Branch HYDROcodone 2019-0 Yes [id number] 1{tbl} Take 1 Un davy -acetaminop 9-22 tablet by ity of hen (NORCO) 00:00: mouth [place] 5-325 mg 00 every 6 Medical tablet (six) Branch hours as needed for Pain (scale 7-10). Indication s: acute pain insulin 2020-0 Yes [id number] 10U inject 10 [facility] glargine 9-22 Units ity of 100 unit/mL 00:00: under the [place] injection 00 skin 2 Medical (two) Branch times daily. empaglifloz 2020-0 Yes [id number] 1{tbl} Take 1 [facility] in 9-22 tablet [...] -acetaminop 9-22 tablet by ity of hen ([employer]) 00:00: mouth [place] 5-325 mg 00 every 6 Medical tablet (six) Branch hours as needed for Pain (scale 7-10). Indication s: acute pain insulin 2020-0 Yes [id number] 10U inject 10 [facility] glargine 9-22 Units ity of 100 unit/mL 00:00: under the [place] injection 00 skin 2 Medical (two) Branch times daily. empaglifloz 2020-0 Yes [id number] 1{tbl} Take 1 [facility] in 9-22 tablet [...] Indication s: chronic pain insulin 2020-0 Yes [id number] 10U inject 10 [facility] glargine 9-22 Units ity of 100 unit/mL 00:00: under the [place] injection 00 skin 2 Medical (two) Branch times daily. empaglifloz 2020-0 Yes [id number] 1{tbl} Take 1 [facility] in 9-22 tablet [...] Indication s: acute pain insulin 2020-0 Yes [id number] 10U inject 10 [facility] glargine 9-22 Units ity of 100 unit/mL 00:00: under the [place] injection 00 skin 2 Medical (two) Branch times daily. empaglifloz 2020-0 Yes [id number] 1{tbl} Take 1 [facility] in 9-22 tablet [...] Indication s: acute pain insulin 2020-0 Yes [id number] 10U inject 10 [facility] glargine 9-22 Units ity of 100 unit/mL 00:00: under the [place] injection 00 skin 2 Medical (two) Branch times daily. empaglifloz 2020-0 Yes [id number] 1{tbl} Take 1 [facility] in 9-22 tablet [...] Indication s: acute pain insulin 2020-0 Yes [id number] 10U inject 10 [facility] glargine 9-22 Units ity of 100 unit/mL 00:00: under the [place] injection 00 skin 2 Medical (two) Branch times daily. empaglifloz 2020-0 Yes [id number] 1{tbl} Take 1 [facility] 9-22 tablet [...] Indication s: acute pain insulin 2020-0 Yes [id number] 10U inject 10 [facility] glargine 9-22 Units ity of 100 unit/mL 00:00: under the [place] injection 00 skin 2 [facility] (two) Branch times daily. empaglifloz 2020-0 Yes [id number] 1{tbl} Take 1 [facility] in 9-22 tablet [...] Indication s: acute pain insulin 2020-0 Yes [id number] 10U inject 10 [facility] glargine 9-22 Units [facility] of 100 unit/mL 00:00: under the [place] injection 00 skin 2 [facility] (two) Branch times daily. empaglifloz 2020-0 Yes [id number] 1{tbl} Take 1 [facility] in 9-22 tablet [...] Indication s: acute pain insulin 2020-0 Yes [id number] 10U inject 10 [facility] glargine 9-22 Units it[facility] of 100 unit/mL 00:00: under the [place] injection 00 skin 2 [facility] (two) Branch times daily. empaglifloz 2020-0 Yes [id number] 1{tbl} Take 1 [facility] in 9-22 tablet [...] Indication s: acute pain insulin 2020-0 Yes [id number] 10U inject 10 [facility] glargine 9-22 Units [facility] of 100 unit/mL 00:00: under the [place] injection 00 skin 2 [facility] (two) Branch times daily. empaglifloz 2020-0 Yes [id number] 1{tbl} Take 1 [facility] in 9-22 tablet [...] Indication s: acute pain insulin 2020-0 Yes [id number] 10U inject 10 [facility] glargine 9-22 Units it[facility] of 100 unit/mL 00:00: under the [place] injection 00 skin 2 [facility] (two) Branch times daily. empaglifloz 2020-0 Yes [id number] 1{tbl} Take 1 [facility] in 9-22 tablet [...] Indication s: acute pain insulin 2020-0 Yes [id number] 10U inject 10 [facility] glargine 9-22 Units it[facility] of 100 unit/mL 00:00: under the [place] injection 00 skin 2 [facility] (two) Branch times daily. empaglifloz 2020-0 Yes [id number] 1{tbl} Take 1 [facility] in 9-22 tablet [...] Indication s: acute pain insulin 2020-0 Yes [id number] 10U inject 10 [facility] glargine 9-22 Units it[facility] of 100 unit/mL 00:00: under the [place] injection 00 skin 2 [facility] (two) Branch times daily. empaglifloz 2020-0 Yes [id number] 1{tbl} Take 1 [facility] in 9-22 tablet by [facility] of (JARDIANCE) 00:00: mouth [place] 10 mg Tab 00 daily. Medical Branch insulin 2020-0 Yes [id number] 10U inject 10 [facility] glargine 9-22 Units ity of 100 unit/mL 00:00: under the [place] injection 00 skin 2 Medical (two) Branch times daily. empaglifloz 2020-0 Yes [id number] 1{tbl} Take 1 [facility] in 9-22 tablet by [facility] of (JARDIANCE) 00:00: mouth [place] 10 mg Tab 00 daily. Medical Branch insulin 2020-0 Yes [id number] 10U inject 10 [facility] glargine 9-22 Units it[facility] of 100 unit/mL 00:00: under the [place] injection 00 skin 2 Medical (two) Branch times daily. empaglifloz 2020-0 Yes [id number] 1{tbl} Take 1 [facility] in 9-22 tablet by [facility] of (JARDIANCE) 00:00: mouth [place] 10 mg Tab 00 daily. [facility] insulin 2020-0 Yes [id number] 10U inject 10 [facility] glargine 9-22 Units it[facility] of 100 unit/mL 00:00: under the [place] injection 00 skin 2 Medical (two) Branch times daily. empaglifloz 2020-0 Yes [id number] 1{tbl} Take 1 [facility] in 9-22 tablet by [facility] of (JARDIANCE) 00:00: mouth [place] 10 mg Tab 00 daily. [facility] insulin 2020-0 Yes [id number] 10U inject 10 [facility] glargine 9-22 Units [facility] of 100 unit/mL 00:00: under the [place] injection 00 skin 2 Medical (two) Branch times daily. empaglifloz 2020-0 Yes [id number] 1{tbl} Take 1 [facility] in 9-22 tablet by [facility] of (JARDIANCE) 00:00: mouth [place] 10 mg Tab 00 daily. [facility] insulin 2020-0 Yes [id number] 10U inject 10 [facility] glargine 9-22 Units it[facility] of 100 unit/mL 00:00: under the [place] injection 00 skin 2 Medical (two) Branch times daily. empaglifloz 2020-0 Yes [id number] 1{tbl} Take 1 [facility] in 9-22 tablet by [facility] of (JARDIANCE) 00:00: mouth [place] 10 mg Tab 00 daily. Medical [facility] insulin 2020-0 Yes [id number] 10U inject 10 [facility] glargine 9-22 Units it[facility] of 100 unit/mL 00:00: under the [place] injection 00 skin 2 Medical (two) Branch times daily. empaglifloz 2020-0 Yes [id number] 1{tbl} Take 1 [facility] in 9-22 tablet by [facility] of (JARDIANCE) 00:00: mouth [place] 10 mg Tab 00 daily. [facility] insulin 2020-0 Yes [id number] 10U inject 10 [facility] glargine 9-22 Units it[facility] of 100 unit/mL 00:00: under the [place] injection 00 skin 2 Medical (two) Branch times daily. empaglifloz 2020-0 Yes [id number] 1{tbl} Take 1 [facility] in 9-22 tablet by [facility] of (JARDIANCE) 00:00: mouth [place] 10 mg Tab 00 daily. [facility] insulin 2020-0 Yes [id number] 10U inject 10 [facility] glargine 9-22 Units ity of 100 unit/mL 00:00: under the [place] injection 00 skin 2 Medical (two) Branch times daily. empaglifloz 2020-0 Yes [id number] 1{tbl} Take 1 [facility] in 9-22 tablet by [facility] of (JARDIANCE) 00:00: mouth [place] 10 mg Tab 00 daily. [facility] insulin 2020-0 Yes [id number] 10U inject 10 [facility] glargine 9-22 Units ity of 100 unit/mL 00:00: under the [place] injection 00 skin 2 Medical (two) Branch times daily. empaglifloz 2020-0 Yes [id number] 1{tbl} Take 1 [facility] in 9-22 tablet by [facility] of (JARDIANCE) 00:00: mouth [place] 10 mg Tab 00 daily. [facility] insulin 2020-0 Yes [id number] 10U inject 10 [facility] glargine 9-22 Units ity of 100 unit/mL 00:00: under the [place] injection 00 skin 2 Medical (two) Branch times daily. empaglifloz 2020-0 Yes [id number] 1{tbl} Take 1 [facility] in 9-22 tablet by [facility] of (JARDIANCE) 00:00: mouth [place] 10 mg Tab 00 daily. [facility] insulin 2020-0 Yes [id number] 10U inject 10 [facility] glargine 9-22 Units ity of 100 unit/mL 00:00: under the [place] injection 00 skin 2 Medical (two) Branch times daily. empaglifloz 2020-0 Yes [id number] 1{tbl} Take 1 [facility] in 9-22 tablet by [facility] of (JARDIANCE) 00:00: mouth [place] 10 mg Tab 00 daily. [facility] insulin 2020-0 Yes [id number] 10U inject 10 [facility] glargine 9-22 Units ity of 100 unit/mL 00:00: under the [place] injection 00 skin 2 Medical (two) Branch times daily. empaglifloz 2020-0 Yes [id number] 1{tbl} Take 1 [facility] in 9-22 tablet by [facility] of (JARDIANCE) 00:00: mouth [place] 10 mg Tab 00 daily. [facility] insulin 2020-0 Yes [id number] 10U inject 10 [facility] glargine 9-22 Units ity of 100 unit/mL 00:00: under the [place] injection 00 skin 2 Medical (two) Branch times daily. empaglifloz 2020-0 Yes [id number] 1{tbl} Take 1 [facility] in 9-22 tablet by [facility] of (JARDIANCE) 00:00: mouth [place] 10 mg Tab 00 daily. [facility] insulin 2020-0 Yes [id number] 10U inject 10 [facility] glargine 9-22 Units ity of 100 unit/mL 00:00: under the [place] injection 00 skin 2 Medical (two) Branch times daily. empaglifloz 2020-0 Yes [id number] 1{tbl} Take 1 [facility] in 9-22 tablet by [facility] of (JARDIANCE) 00:00: mouth [place] 10 mg Tab 00 daily. [facility] insulin 2020-0 Yes [id number] 10U inject 10 [facility] glargine 9-22 Units ity of 100 unit/mL 00:00: under the [place] injection 00 skin 2 Medical (two) Branch times daily. empaglifloz 2020-0 Yes [id number] 1{tbl} Take 1 [facility] in 9-22 tablet by [facility] of (JARDIANCE) 00:00: mouth [place] 10 mg Tab 00 daily. [facility] insulin 2020-0 Yes [id number] 10U inject 10 [facility] glargine 9-22 Units ity of 100 unit/mL 00:00: under the [place] injection 00 skin 2 Medical (two) Branch times daily. empaglifloz 2020-0 Yes [id number] 1{tbl} Take 1 [facility] in 9-22 tablet by [facility] of (JARDIANCE) 00:00: mouth [place] 10 mg Tab 00 daily. Medical [facility] insulin 2020-0 Yes [id number] 10U inject 10 [facility] glargine 9-22 Units ity of 100 unit/mL 00:00: under the [place] injection 00 skin 2 Medical (two) Branch times daily. empaglifloz 2020-0 Yes [id number] 1{tbl} Take 1 [facility] in 9-22 tablet by [facility] of (JARDIANCE) 00:00: mouth [place] 10 mg Tab 00 daily. [facility] insulin 2020-0 Yes [id number] 10U inject 10 [facility] glargine 9-22 Units ity of 100 unit/mL 00:00: under the [place] injection 00 skin 2 Medical (two) Branch times daily. empaglifloz 2020-0 Yes [id number] 1{tbl} Take 1 [facility] in 9-22 tablet by [facility] of (JARDIANCE) 00:00: mouth [place] 10 mg Tab 00 daily. [facility] insulin 2020-0 Yes [id number] 10U inject 10 [facility] glargine 9-22 Units ity of 100 unit/mL 00:00: under the [place] injection 00 skin 2 Medical (two) Branch times daily. empaglifloz 2020-0 Yes [id number] 1{tbl} Take 1 [facility] in 9-22 tablet by [facility] of (JARDIANCE) 00:00: mouth [place] 10 mg Tab 00 daily. [facility] insulin 2020-0 Yes [id number] 10U inject 10 [facility] glargine 9-22 Units ity of 100 unit/mL 00:00: under the [place] injection 00 skin 2 Medical (two) Branch times daily. empaglifloz 2020-0 Yes [id number] 1{tbl} Take 1 [facility] in 9-22 tablet by [facility] of (JARDIANCE) 00:00: mouth [place] 10 mg Tab 00 daily. [facility] insulin 2020-0 Yes [id number] 10U inject 10 [facility] glargine 9-22 Units ity of 100 unit/mL 00:00: under the [place] injection 00 skin 2 Medical (two) Branch times daily. empaglifloz 2020-0 Yes [id number] 1{tbl} Take 1 [facility] in 9-22 tablet by [facility] of (JARDIANCE) 00:00: mouth [place] 10 mg Tab 00 daily. [facility] insulin 2020-0 Yes [id number] 10U inject 10 [facility] glargine 9-22 Units ity of 100 unit/mL 00:00: under the [place] injection 00 skin 2 Medical (two) Branch times daily. empaglifloz 2020-0 Yes [id number] 1{tbl} Take 1 [facility] in 9-22 tablet by [facility] of (JARDIANCE) 00:00: mouth [place] 10 mg Tab 00 daily. [facility] insulin 2020-0 Yes [id number] 10U inject 10 [facility] glargine 9-22 Units ity of 100 unit/mL 00:00: under the [place] injection 00 skin 2 Medical (two) Branch times daily. empaglifloz 2020-0 Yes [id number] 1{tbl} Take 1 [facility] in 9-22 tablet by [facility] of (JARDIANCE) 00:00: mouth [place] 10 mg Tab 00 daily. [facility] insulin 2020-0 Yes [id number] 10U inject 10 [facility] glargine 9-22 Units ity of 100 unit/mL 00:00: under the [place] injection 00 skin 2 Medical (two) Branch times daily. empaglifloz 2020-0 Yes [id number] 1{tbl} Take 1 [facility] in 9-22 tablet [...] (scale 7-10). Indication s: acute pain acetaminoph 2019-2019- No [id number] 1{tbl} Take 1 [facility] en-codeine 12-19 09-25 tablet by it[facility] of (TYLENOL-CO 00:00: 00:[place] DEINE #3) 00 :00 every 6 Medical 300-30 mg (six) Branch tablet hours as needed for Pain (scale 4-6). Indication s: chronic pain amoxicillin 2020-0 Yes [id number] 1{tbl} Take 1 [facility] -clavulanat 9-13 tablet by ity of e 00:00: mouth 2 (AUGMENTIN) 00 (two) Medical 875-125 mg times Branch per tablet daily. atorvastati 2020-0 Yes [id number] 20mg Take 1 [facility] n 20 mg 9-13 tablet by [facility] of tablet 00:00: mouth at [place] 00 bedtime. Medical Branch carvediloL 2020-0 Yes [id number] 12.5mg Take 1 [facility] 12.5 mg 9-13 tablet by it[facility] of tablet 00:00: mouth 2 (two) Medical times Branch daily with meals. aspirin 81 2020-0 Yes [id number] 81mg Take 1 [facility] mg chewable 9-13 tablet by it[facility] of tablet 00:00: mouth 00 daily. Medical Branch amoxicillin 2020-0 Yes [id number] 1{tbl} Take 1 [facility] -clavulanat 9-13 tablet by ity of e 00:00: mouth 2 [place] (AUGMENTIN) 00 (two) Medical 875-125 mg times Branch per tablet daily. atorvastati 2020-0 Yes [id number] 20mg Take 1 [facility] n 20 mg 9-13 tablet by it[facility] of tablet 00:00: mouth at [place] 00 bedtime. Medical [facility] carvediloL 2020-0 Yes [id number] 12.5mg Take 1 [facility] 12.5 mg 9-13 tablet by ity of tablet 00:00: mouth 2 (two) Medical times Branch daily with meals. aspirin 81 2020-0 Yes [id number] 81mg Take 1 [facility] mg chewable 9-13 tablet by it[facility] of tablet 00:00: mouth [place] 00 daily. Medical [facility] amoxicillin 2020-0 Yes [id number] 1{tbl} Take 1 [facility] -clavulanat 9-13 tablet by ity of e 00:00: mouth 2 (AUGMENTIN) 00 (two) Medical 875-125 mg times Branch per tablet daily. atorvastati 2020-0 Yes [id number] 20mg Take 1 [facility] n 20 mg 9-13 tablet by it[facility] of tablet 00:00: mouth at [place] 00 bedtime. Medical [facility] carvediloL 2020-0 Yes [id number] 12.5mg Take 1 [facility] 12.5 mg 9-13 tablet by [facility] of tablet 00:00: mouth 2 (two) Medical times Branch daily with meals. aspirin 81 2020-0 Yes [id number] 81mg Take 1 [facility] mg chewable 9-13 tablet by [facility] of tablet 00:00: mouth [place] 00 daily. Medical Branch amoxicillin 2020-0 Yes [id number] 1{tbl} Take 1 [facility] -clavulanat 9-13 tablet by ity of e 00:00: mouth 2 [place] (AUGMENTIN) 00 (two) Medical 875-125 mg times Branch per tablet daily. atorvastati 2020-0 Yes [id number] 20mg Take 1 [facility] n 20 mg 9-13 tablet by ity of tablet 00:00: mouth at [place] 00 bedtime. Medical [facility] carvediloL 2020-0 Yes [id number] 12.5mg Take 1 [facility] 12.5 mg 9-13 tablet by ity of tablet 00:00: mouth 2 (two) Medical times Branch daily with meals. aspirin 81 2020-0 Yes [id number] 81mg Take 1 [facility] mg chewable 9-13 tablet by [facility] of tablet 00:00: mouth 00 daily. Medical Branch amoxicillin 2020-0 Yes [id number] 1{tbl} Take 1 [facility] -clavulanat 9-13 tablet by ity of e 00:00: mouth 2 [place] (AUGMENTIN) 00 (two) Medical 875-125 mg times Branch per tablet daily. atorvastati 2020-0 Yes [id number] 20mg Take 1 [facility] n 20 mg 9-13 tablet by it[facility] of tablet 00:00: mouth at [place] 00 bedtime. Medical [facility] carvediloL 2020-0 Yes [id number] 12.5mg Take 1 [facility] 12.5 mg 9-13 tablet by ity of tablet 00:00: mouth 2 (two) Medical times Branch daily with meals. aspirin 81 2020-0 Yes [id number] 81mg Take 1 [facility] mg chewable 9-13 tablet by [facility] of tablet 00:00: mouth [place] 00 daily. Medical [facility] amoxicillin 2020-0 Yes [id number] 1{tbl} Take 1 [facility] -clavulanat 9-13 tablet by ity of e 00:00: mouth 2 (AUGMENTIN) 00 (two) Medical 875-125 mg times Branch per tablet daily. atorvastati 2020-0 Yes [id number] 20mg Take 1 [facility] n 20 mg 9-13 tablet by [facility] of tablet 00:00: mouth at [place] 00 bedtime. Medical [facility] carvediloL 2020-0 Yes [id number] 12.5mg Take 1 [facility] 12.5 mg 9-13 tablet by ity of tablet 00:00: mouth 2 (two) Medical times Branch daily with meals. aspirin 81 2020-0 Yes [id number] 81mg Take 1 [facility] mg chewable 9-13 tablet by [facility]y of tablet 00:00: mouth 00 daily. Medical Branch amoxicillin 2020-0 Yes [id number] 1{tbl} Take 1 [facility] -clavulanat 9-13 tablet by ity of e 00:00: mouth 2 [place] (AUGMENTIN) (two) Medical 875-125 mg times Branch per tablet daily. atorvastati 2020-0 Yes [id number] 20mg Take 1 [facility] n 20 mg 9-13 tablet by ity of tablet 00:00: mouth at [place] 00 bedtime. Medical [facility] carvediloL 2020-0 Yes [id number] 12.5mg Take 1 [facility] 12.5 mg 9-13 tablet by [facility]y of tablet 00:00: mouth 2 (two) Medical times Branch daily with meals. aspirin 81 2020-0 Yes [id number] 81mg Take 1 [facility] mg chewable 9-13 tablet by [facility] of tablet 00:00: mouth 00 daily. Medical Branch amoxicillin 2020-0 Yes [id number] 1{tbl} Take 1 [facility] -clavulanat 9-13 tablet by ity of e 00:00: mouth 2 [place] (AUGMENTIN) 00 (two) Medical 875-125 mg times Branch per tablet daily. atorvastati 2020-0 Yes [id number] 20mg Take 1 [facility] n 20 mg 9-13 tablet by ity of tablet 00:00: mouth at [place] 00 bedtime. Medical [facility] carvediloL 2020-0 Yes [id number] 12.5mg Take 1 [facility] 12.5 mg 9-13 tablet by ity of tablet 00:00: mouth 2 00 (two) Medical times Branch daily with meals. aspirin 81 2020-0 Yes [id number] 81mg Take 1 [facility] mg chewable 9-13 tablet by ity of tablet 00:00: mouth [place] 00 daily. Medical [facility] amoxicillin 2020-0 Yes [id number] 1{tbl} Take 1 [facility] -clavulanat 9-13 tablet by ity of e 00:00: mouth 2 (AUGMENTIN) 00 (two) Medical 875-125 mg times Branch per tablet daily. atorvastati 2020-0 Yes [id number] 20mg Take 1 [facility] n 20 mg 9-13 tablet by it[facility] of tablet 00:00: mouth at [place] 00 bedtime. Medical [facility] carvediloL 2020-0 Yes [id number] 12.5mg Take 1 [facility] 12.5 mg 9-13 tablet by ity of tablet 00:00: mouth 2 (two) Medical times Branch daily with meals. aspirin 81 2020-0 Yes [id number] 81mg Take 1 [facility] mg chewable 9-13 tablet by [facility] of tablet 00:00: mouth 00 daily. [facility] Branch amoxicillin 2020-0 Yes [id number] 1{tbl} Take 1 [facility] -clavulanat 9-13 tablet by ity of e 00:00: mouth 2 (AUGMENTIN) 00 (two) Medical 875-125 mg times Branch per tablet daily. atorvastati 2020-0 Yes [id number] 20mg Take 1 [facility] n 20 mg 9-13 tablet by [facility] of tablet 00:00: mouth at [place] 00 bedtime. Medical [facility] carvediloL 2020-0 Yes [id number] 12.5mg Take 1 [facility] 12.5 mg 9-13 tablet by [facility] of tablet 00:00: mouth 2 (two) Medical times Branch daily with meals. aspirin 81 2020-0 Yes [id number] 81mg Take 1 [facility] mg chewable 9-13 tablet by [facility] of tablet 00:00: mouth [place] 00 daily. Medical [facility] amoxicillin 2020-0 Yes [id number] 1{tbl} Take 1 [facility] -clavulanat 9-13 tablet by ity of e 00:00: mouth 2 [place] (AUGMENTIN) 00 (two) Medical 875-125 mg times Branch per tablet daily. atorvastati 2020-0 Yes [id number] 20mg Take 1 [facility] n 20 mg 9-13 tablet by [facility] of tablet 00:00: mouth at [place] 00 bedtime. Medical [facility] carvediloL 2020-0 Yes [id number] 12.5mg Take 1 [facility] 12.5 mg 9-13 tablet by [facility] of tablet 00:00: mouth 2 [place] (two) Medical times Branch daily with meals. aspirin 81 2020-0 Yes [id number] 81mg Take 1 [facility] mg chewable 9-13 tablet by [facility] of tablet 00:00: mouth [place] 00 daily. Medical [facility] amoxicillin 2020-0 Yes [id number] 1{tbl} Take 1 [facility] -clavulanat 9-13 tablet by [facility]y of e 00:00: mouth 2 (AUGMENTIN) 00 (two) Medical 875-125 mg times Branch per tablet daily. atorvastati 2019-0 Yes [id number] 20mg Take 1 [facility] n 20 mg 9-13 tablet by [facility] of tablet 00:00: mouth at [place] 00 bedtime. Medical [facility] carvediloL 2019-0 Yes [id number] 12.5mg Take 1 [facility] 12.5 mg 9-13 tablet by [facility] of tablet 00:00: mouth 2 [place] (two) Medical times Branch daily with meals. aspirin 81 2019-0 Yes [id number] 81mg Take 1 [facility] mg chewable 9-13 tablet by ity of tablet 00:00: mouth [place] 00 daily. Medical Branch atorvastati 2019-0 Yes [id number] 20mg Take 1 [facility] n 20 mg 9-13 tablet by ity of tablet 00:00: mouth at [place] 00 bedtime. [facility] carvediloL 2020-0 Yes [id number] 12.5mg Take 1 [facility] 12.5 mg 9-13 tablet by [facility] of tablet 00:00: mouth 2 [place] 00 (two) Medical times Branch daily with meals. aspirin 81 2020-0 Yes [id number] 81mg Take 1 [facility] mg chewable 9-13 tablet by [facility]y of tablet 00:00: mouth [place] 00 daily. [facility] Branch atorvastati 2019-0 Yes [id number] 20mg Take 1 [facility] n 20 mg 9-13 tablet by [facility] of tablet 00:00: mouth at [place] 00 bedtime. [facility] carvediloL 2020-0 Yes [id number] 12.5mg Take 1 [facility] 12.5 mg 9-13 tablet by [facility] of tablet 00:00: mouth 2 (two) Medical times Branch daily with meals. aspirin 81 2020-0 Yes [id number] 81mg Take 1 [facility] mg chewable 9-13 tablet by [facility] of tablet 00:00: mouth [place] 00 daily. [facility] atorvastati 2020-0 Yes [id number] 20mg Take 1 [facility] n 20 mg 9-13 tablet by [facility] of tablet 00:00: mouth at [place] 00 bedtime. [facility] carvediloL 2020-0 Yes [id number] 12.5mg Take 1 [facility] 12.5 mg 9-13 tablet by [facility] of tablet 00:00: mouth 2 (two) Medical times Branch daily with meals. aspirin 81 2020-0 Yes [id number] 81mg Take 1 [facility] mg chewable 9-13 tablet by [facility]y of tablet 00:00: mouth [place] 00 daily. [facility] atorvastati 2020-0 Yes [id number] 20mg Take 1 [facility] n 20 mg 9-13 tablet by [facility] of tablet 00:00: mouth at [place] 00 bedtime. [facility] carvediloL 2020-0 Yes [id number] 12.5mg Take 1 [facility] 12.5 mg 9-13 tablet by [facility] of tablet 00:00: mouth 2 (two) Medical times Branch daily with meals. aspirin 81 2020-0 Yes [id number] 81mg Take 1 [facility] mg chewable 9-13 tablet by [facility] of tablet 00:00: mouth [place] 00 daily. [facility] atorvastati 2020-0 Yes [id number] 20mg Take 1 [facility] n 20 mg 9-13 tablet by [facility] of tablet 00:00: mouth at [place] 00 bedtime. [facility] aspirin 81 2020-0 Yes [id number] 81mg Take 1 [facility] mg chewable 9-13 tablet by [facility]y of tablet 00:00: mouth [place] 00 daily. [facility] atorvastati 2020-0 Yes [id number] 20mg Take 1 [facility] n 20 mg 9-13 tablet by [facility] of tablet 00:00: mouth at [place] 00 bedtime. [facility] aspirin 81 2020-0 Yes [id number] 81mg Take 1 [facility] mg chewable 9-13 tablet by [facility] of tablet 00:00: mouth [place] 00 daily. [facility] Branch atorvastati 2020-0 Yes [id number] 20mg Take 1 [facility] n 20 mg 9-13 tablet by [facility] of tablet 00:00: mouth at [place] 00 bedtime. [facility] aspirin 81 2020-0 Yes [id number] 81mg Take 1 [facility] mg chewable 9-13 tablet by [facility] of tablet 00:00: mouth [place] 00 daily. [facility] atorvastati 2020-0 Yes [id number] 20mg Take 1 [facility] n 20 mg 9-13 tablet by [facility] of tablet 00:00: mouth at [place] 00 bedtime. [facility] aspirin 81 2020-0 Yes [id number] 81mg Take 1 [facility] mg chewable 9-13 tablet by [facility] of tablet 00:00: mouth [place] 00 daily. [facility] atorvastati 2020-0 Yes [id number] 20mg Take 1 [facility] n 20 mg 9-13 tablet by [facility] of tablet 00:00: mouth at [place] bedtime. Medical [facility] aspirin 81 2020-0 Yes [id number] 81mg Take 1 [facility] mg chewable 9-13 tablet by [facility]y of tablet 00:00: mouth [place] daily. Medical [facility] atorvastati 2020-0 Yes [id number] 20mg Take 1 [facility] n 20 mg 9-13 tablet by [facility]y of tablet 00:00: mouth at [place] bedtime. [facility] atorvastati 2020-0 Yes [id number] 20mg Take 1 [facility] n 20 mg 9-13 tablet by [facility]y of tablet 00:00: mouth at [place] [address] bedtime. Medical Branch atorvastati 2020-0 Yes [id number] 20mg Take 1 [facility] n 20 mg 9-13 tablet by [facility] of tablet 00:00: mouth at [place] [address] bedtime. Medical Branch atorvastati 2020-0 Yes [id number] 20mg Take 1 [facility] n 20 mg 9-13 tablet by [facility] of tablet 00:00: mouth at [place] [address] bedtime. Medical [facility] atorvastati 2020-0 Yes [id number] 20mg Take 1 [facility] n 20 mg 9-13 tablet by it[facility] of tablet 00:00: mouth at [place] [address] bedtime. Medical Branch atorvastati 2020-0 Yes [id number] 20mg Take 1 [facility] n 20 mg 9-13 tablet by [facility] of tablet 00:00: mouth at [place] [address] bedtime. [facility] atorvastati 2020-0 Yes [id number] 20mg Take 1 [facility] n 20 mg 9-13 tablet by ity of tablet 00:00: mouth at [place] 00 bedtime. [facility] atorvastati 2020-0 Yes [id number] 20mg Take 1 [facility] n 20 mg 9-13 tablet by [facility]y of tablet 00:00: mouth at [place] bedtime. [facility] atorvastati 2020-0 Yes [id number] 20mg Take 1 [facility] n 20 mg 9-13 tablet by ity of tablet 00:00: mouth at [place] bedtime. [facility] atorvastati 2020-0 Yes [id number] 20mg Take 1 [facility] n 20 mg 9-13 tablet by [facility]y of tablet 00:00: mouth at [place] bedtime. [facility] atorvastati 2020-0 Yes [id number] 20mg Take 1 [facility] n 20 mg 9-13 tablet by ity of tablet 00:00: mouth at [place] bedtime. [facility] atorvastati 2020-0 Yes [id number] 20mg Take 1 [facility] n 20 mg 9-13 tablet by [facility] of tablet 00:00: mouth at [place] [address] bedtime. Medical Branch atorvastati 2020-0 Yes [id number] 20mg Take 1 [facility] n 20 mg 9-13 tablet by [facility] of tablet 00:00: mouth at [place] [address] bedtime. [facility] Branch atorvastati 2020-0 Yes [id number] 20mg Take 1 [facility] n 20 mg 9-13 tablet by [facility] of tablet 00:00: mouth at [place] [address] bedtime. Medical [facility] atorvastati 2020-0 Yes [id number] 20mg Take 1 [facility] n 20 mg 9-13 tablet by [facility] of tablet 00:00: mouth at [place] [address] bedtime. [facility] Branch atorvastati 2020-0 Yes [id number] 20mg Take 1 [facility] n 20 mg 9-13 tablet by [facility] of tablet 00:00: mouth at [place] bedtime. [facility] atorvastati 2020-0 Yes [id number] 20mg Take 1 [facility] n 20 mg 9-13 tablet by [facility] of tablet 00:00: mouth at [place] [address] bedtime. Medical Branch atorvastati 2020-0 Yes [id number] 20mg Take 1 [facility] n 20 mg 9-13 tablet by [facility] of tablet 00:00: mouth at [place] [address] bedtime. [facility] atorvastati 2020-0 Yes [id number] 20mg Take 1 [facility] n 20 mg 9-13 tablet by [facility] of tablet 00:00: mouth at [place] 00 bedtime. [facility] atorvastati 2020-0 Yes [id number] 20mg Take 1 [facility] n 20 mg 9-13 tablet by [facility] of tablet 00:00: mouth at [place] 00 bedtime. Medical Branch HYDROcodone 2020-0 Yes [id number] 1{tbl} Take 1 [facility] -acetaminop 9-13 tablet by [facility] of hen (NORCO) 00:00: mouth [place] 5-325 mg 00 every 6 Medical tablet (six) Branch hours as needed for Pain (scale 7-10). Indication s: acute pain amoxicillin 2020-0 Yes [id number] 1{tbl} Take 1 [facility] -clavulanat 9-13 tablet by [facility] of e 00:00: mouth 2 [place] (AUGMENTIN) 00 (two) Medical 875-125 mg times Branch per tablet daily. atorvastati 2020-0 Yes [id number] 20mg Take 1 [facility] n 20 mg 9-13 tablet by [facility] of tablet 00:00: mouth at [place] 00 bedtime. Medical [facility] carvediloL 2020-0 Yes [id number] 12.5mg Take 1 [facility] 12.5 mg 9-13 tablet by [facility] of tablet 00:00: mouth 2 [place] 00 (two) Medical times Branch daily with meals. aspirin 81 2020-0 Yes [id number] 81mg Take 1 [facility] mg chewable 9-13 tablet by [facility] of tablet 00:00: mouth [place] 00 daily. [facility] HYDROcodone 2020-0 Yes [id number] 1{tbl} Take 1 [facility] -acetaminop 9-13 tablet by [facility] ([facility]CO) 00:00: mouth [place] 5-325 mg 00 every 6 Medical tablet (six) Branch hours as needed for Pain (scale 7-10). Indication s: acute pain amoxicillin 2020-0 Yes [id number] 1{tbl} Take 1 [facility] -clavulanat 9-13 tablet by [facility] 00:00: mouth 2 [place] (AUGMENTIN) 00 (two) Medical 875-125 mg times Branch per tablet daily. atorvastati 2020-0 Yes [id number] 20mg Take 1 [facility] n 20 mg 9-13 tablet by [facility] 00:00: mouth at [place] 00 bedtime. Medical [facility] carvediloL 2020-0 Yes [id number] 12.5mg Take 1 [facility] 12.5 mg 9-13 tablet by [facility] tablet 00:00: mouth 2 00 (two) Medical times Branch daily with meals. amoxicillin 2020-0 Yes [id number] 1{tbl} Take 1 [facility] -clavulanat 9-13 tablet by [facility] 00:00: mouth 2 [place] (AUGMENTIN) 00 (two) Medical 875-125 mg times Branch per tablet daily. aspirin 81 2020-0 Yes [id number] 81mg Take 1 [facility] mg chewable 9-13 tablet by [facility] tablet 00:00: mouth 00 daily. [facility] amoxicillin 2020-0 Yes [id number] 1{tbl} Take 1 [facility] -clavulanat 9-13 tablet by [facility] 00:00: mouth 2 [place] (AUGMENTIN) 00 (two) Medical 875-125 mg times Branch per tablet daily. atorvastati 2020-0 Yes [id number] 20mg Take 1 [facility] n 20 mg 9-13 tablet by [facility] 00:00: mouth at [place] 00 bedtime. [facility] atorvastati 2020-0 Yes [id number] 20mg Take 1 [facility] n 20 mg 9-13 tablet by [facility] 00:00: mouth at [place] 00 bedtime. [facility] carvediloL 2020-0 Yes [id number] 12.5mg Take 1 [facility] 12.5 mg 9-13 tablet by [facility] tablet 00:00: mouth 2 [place] (two) Medical times Branch daily with meals. aspirin 81 2020-0 Yes [id number] 81mg Take 1 [facility] mg chewable 9-13 tablet by [facility] tablet 00:00: mouth 00 daily. [facility] carvediloL 2020-0 Yes [id number] 12.5mg Take 1 [facility] 12.5 mg 9-13 tablet by [facility] tablet 00:00: mouth 2 [place] 00 (two) Medical times Branch daily with meals. aspirin 81 2020-0 Yes [id number] 81mg Take 1 [facility] mg chewable 9-13 tablet by [facility] tablet 00:00: mouth [place] 00 daily. [facility] amoxicillin 2020-0 Yes [id number] 1{tbl} Take 1 [facility] -clavulanat 9-13 tablet by [facility] 00:00: mouth 2 [place] (AUGMENTIN) 00 (two) Medical 875-125 mg times Branch per tablet daily. atorvastati 2020-0 Yes [id number] 20mg Take 1 [facility] n 20 mg 9-13 tablet by [facility] tablet 00:00: mouth at [place] 00 bedtime. [facility] carvediloL 2020-0 Yes [id number] 12.5mg Take 1 [facility] 12.5 mg 9-13 tablet by [facility] tablet 00:00: mouth 2 [place] 00 (two) Medical times Branch daily with meals. aspirin 81 2020-0 Yes [id number] 81mg Take 1 [facility] mg chewable 9-13 tablet by [facility] tablet 00:00: mouth [place] 00 daily. [facility] amoxicillin 2020-0 Yes [id number] 1{tbl} Take 1 [facility] -clavulanat 9-13 tablet by [facility] 00:00: mouth 2 [place] (AUGMENTIN) 00 (two) Medical 875-125 mg times Branch per tablet daily. atorvastati 2020-0 Yes [id number] 20mg Take 1 [facility] n 20 mg 9-13 tablet by [facility] tablet 00:00: mouth at [place] 00 bedtime. [facility] carvediloL 2020-0 Yes [id number] 12.5mg Take 1 [facility] 12.5 mg 9-13 tablet by [facility] tablet 00:00: mouth 2 [place] (two) Medical times Branch daily with meals. aspirin 81 2020-0 Yes [id number] 81mg Take 1 [facility] mg chewable 9-13 tablet by [facility] tablet 00:00: mouth [place] 00 daily. [facility] amoxicillin 2020-0 Yes [id number] 1{tbl} Take 1 [facility] -clavulanat 9-13 tablet by [facility] 00:00: mouth 2 [place] (AUGMENTIN) 00 (two) Medical 875-125 mg times Branch per tablet daily. atorvastati 2020-0 Yes [id number] 20mg Take 1 [facility] n 20 mg 9-13 tablet by [facility] tablet 00:00: mouth at [place] 00 bedtime. [facility] carvediloL 2020-0 Yes [id number] 12.5mg Take 1 [facility] 12.5 mg 9-13 tablet by [facility] tablet 00:00: mouth 2 [place] 00 (two) Medical times Branch daily with meals. aspirin 81 2020-0 Yes [id number] 81mg Take 1 [facility] mg chewable 9-13 tablet by [facility] tablet 00:00: mouth [place] 00 daily. [facility] amoxicillin 2020-0 Yes [id number] 1{tbl} Take 1 [facility] -clavulanat 9-13 tablet by [facility] 00:00: mouth 2 [place] (AUGMENTIN) 00 (two) Medical 875-125 mg times Branch per tablet daily. atorvastati 2020-0 Yes [id number] 20mg Take 1 [facility] n 20 mg 9-13 tablet by [facility] tablet 00:00: mouth at [place] 00 bedtime. [facility] carvediloL 2020-0 Yes [id number] 12.5mg Take 1 [facility] 12.5 mg 9-13 tablet by [facility] tablet 00:00: mouth 2 (two) Medical times Branch daily with meals. aspirin 81 2020-0 Yes [id number] 81mg Take 1 [facility] mg chewable 9-13 tablet by [facility] tablet 00:00: mouth [place] 00 daily. [facility] amoxicillin 2020-0 Yes [id number] 1{tbl} Take 1 [facility] -clavulanat 9-13 tablet by [facility] 00:00: mouth 2 [place] (AUGMENTIN) 00 (two) Medical 875-125 mg times Branch per tablet daily. atorvastati 2020-0 Yes [id number] 20mg Take 1 [facility] n 20 mg 9-13 tablet by [facility] tablet 00:00: mouth at [place] 00 bedtime. [facility] carvediloL 2020-0 Yes [id number] 12.5mg Take 1 [facility] 12.5 mg 9-13 tablet by [facility] tablet 00:00: mouth 2 (two) Medical times Branch daily with meals. aspirin 81 2020-0 Yes [id number] 81mg Take 1 [facility] mg chewable 9-13 tablet by [facility] tablet 00:00: mouth [place] 00 daily. [facility] amoxicillin 2020-0 Yes [id number] 1{tbl} Take 1 [facility] -clavulanat 9-13 tablet by [facility] 00:00: mouth 2 [place] (AUGMENTIN) 00 (two) Medical 875-125 mg times Branch per tablet daily. atorvastati 2020-0 Yes [id number] 20mg Take 1 [facility] n 20 mg 9-13 tablet by [facility] tablet 00:00: mouth at [place] 00 bedtime. [facility] carvediloL 2020-0 Yes [id number] 12.5mg Take 1 [facility] 12.5 mg 9-13 tablet by [facility] tablet 00:00: mouth 2 [place] 00 (two) Medical times Branch daily with meals. aspirin 81 2020-0 Yes [id number] 81mg Take 1 [facility] mg chewable 9-13 tablet by [facility] tablet 00:00: mouth [place] 00 daily. [facility] amoxicillin 2020-0 Yes [id number] 1{tbl} Take 1 [facility] -clavulanat 9-13 tablet by [facility] 00:00: mouth 2 (AUGMENTIN) 00 (two) Medical 875-125 mg times Branch per tablet daily. atorvastati 2020-0 Yes [id number] 20mg Take 1 [facility] n 20 mg 9-13 tablet by [facility] tablet 00:00: mouth at [place] 00 bedtime. [facility] carvediloL 2020-0 Yes [id number] 12.5mg Take 1 [facility] 12.5 mg 9-13 tablet by [facility] tablet 00:00: mouth 2 (two) Medical times Branch daily with meals. aspirin 81 2020-0 Yes [id number] 81mg Take 1 [facility] mg chewable 9-13 tablet by [facility] tablet 00:00: mouth [place] 00 daily. [facility] amoxicillin 2020-0 Yes [id number] 1{tbl} Take 1 [facility] -clavulanat 9-13 tablet by [facility] 00:00: mouth 2 [place] (AUGMENTIN) 00 (two) Medical 875-125 mg times Branch per tablet daily. atorvastati 2020-0 Yes [id number] 20mg Take 1 [facility] n 20 mg 9-13 tablet by [facility] tablet 00:00: mouth at [place] 00 bedtime. [facility] carvediloL 2020-0 Yes [id number] 12.5mg Take 1 [facility] 12.5 mg 9-13 tablet by [facility] tablet 00:00: mouth 2 00 (two) Medical times Branch daily with meals. aspirin 81 2020-0 Yes [id number] 81mg Take 1 [facility] mg chewable 9-13 tablet by [facility] tablet 00:00: mouth [place] 00 daily. [facility] amoxicillin 2020-0 Yes [id number] 1{tbl} Take 1 [facility] -clavulanat 9-13 tablet by [facility] 00:00: mouth 2 [place] (AUGMENTIN) 00 (two) Medical 875-125 mg times Branch per tablet daily. atorvastati 2020-0 Yes [id number] 20mg Take 1 [facility] n 20 mg 9-13 tablet by [facility] tablet 00:00: mouth at [place] 00 bedtime. [facility] carvediloL 2020-0 Yes [id number] 12.5mg Take 1 [facility] 12.5 mg 9-13 tablet by [facility] tablet 00:00: mouth 2 00 (two) Medical times Branch daily with meals. aspirin 81 2020-0 Yes [id number] 81mg Take 1 [facility] mg chewable 9-13 tablet by [facility] tablet 00:00: mouth [place] 00 daily. [facility] amoxicillin 2020-0 Yes [id number] 1{tbl} Take 1 [facility] -clavulanat 9-13 tablet by [facility] 00:00: mouth 2 [place] (AUGMENTIN) 00 (two) Medical 875-125 mg times Branch per tablet daily. atorvastati 2020-0 Yes [id number] 20mg Take 1 [facility] n 20 mg 9-13 tablet by [facility] tablet 00:00: mouth at [place] 00 bedtime. [facility] carvediloL 2020-0 Yes [id number] 12.5mg Take 1 [facility] 12.5 mg 9-13 tablet by [facility] tablet 00:00: mouth 2 (two) Medical times Branch daily with meals. aspirin 81 2020-0 Yes [id number] 81mg Take 1 [facility] mg chewable 9-13 tablet by [facility] tablet 00:00: mouth [place] 00 daily. [facility] amoxicillin 2020-0 Yes [id number] 1{tbl} Take 1 [facility] -clavulanat 9-13 tablet by [facility] 00:00: mouth 2 [place] (AUGMENTIN) 00 (two) Medical 875-125 mg times Branch per tablet daily. atorvastati 2020-0 Yes [id number] 20mg Take 1 [facility] n 20 mg 9-13 tablet by [facility] tablet 00:00: mouth at [place] 00 bedtime. [facility] carvediloL 2020-0 Yes [id number] 12.5mg Take 1 [facility] 12.5 mg 9-13 tablet by [facility] tablet 00:00: mouth 2 [place] (two) Medical times Branch daily with meals. aspirin 81 2020-0 Yes [id number] 81mg Take 1 [facility] mg chewable 9-13 tablet by [facility] tablet 00:00: mouth [place] 00 daily. [facility] amoxicillin 2020-0 Yes [id number] 1{tbl} Take 1 [facility] -clavulanat 9-13 tablet by [facility] 00:00: mouth 2 [place] (AUGMENTIN) 00 (two) Medical 875-125 mg times Branch per tablet daily. atorvastati 2020-0 Yes [id number] 20mg Take 1 [facility] n 20 mg 9-13 tablet by [facility] tablet 00:00: mouth at [place] 00 bedtime. [facility] carvediloL 2020-0 Yes [id number] 12.5mg Take 1 [facility] 12.5 mg 9-13 tablet by [facility] tablet 00:00: mouth 2 00 (two) Medical times Branch daily with meals. aspirin 81 2020-0 Yes [id number] 81mg Take 1 [facility] mg chewable 9-13 tablet by [facility] tablet 00:00: mouth [place] 00 daily. [facility] amoxicillin 2020-0 Yes [id number] 1{tbl} Take 1 [facility] -clavulanat 9-13 tablet by [facility] 00:00: mouth 2 (AUGMENTIN) 00 (two) Medical 875-125 mg times Branch per tablet daily. atorvastati 2020-0 Yes [id number] 20mg Take 1 [facility] n 20 mg 9-13 tablet by [facility] tablet 00:00: mouth at [place] 00 bedtime. [facility] carvediloL 2020-0 Yes [id number] 12.5mg Take 1 [facility] 12.5 mg 9-13 tablet by [facility] tablet 00:00: mouth 2 00 (two) Medical times Branch daily with meals. aspirin 81 2020-0 Yes [id number] 81mg Take 1 [facility] mg chewable 9-13 tablet by [facility] tablet 00:00: mouth [place] 00 daily. [facility] amoxicillin 2020-0 Yes [id number] 1{tbl} Take 1 [facility] -clavulanat 9-13 tablet by [facility] 00:00: mouth 2 [place] (AUGMENTIN) 00 (two) Medical 875-125 mg times Branch per tablet daily. atorvastati 2020-0 Yes [id number] 20mg Take 1 [facility] n 20 mg 9-13 tablet by [facility] tablet 00:00: mouth at [place] 00 bedtime. [facility] carvediloL 2020-0 Yes [id number] 12.5mg Take 1 [facility] 12.5 mg 9-13 tablet by [facility] tablet 00:00: mouth 2 00 (two) Medical times Branch daily with meals. aspirin 81 2020-0 Yes [id number] 81mg Take 1 [facility] mg chewable 9-13 tablet by [facility] tablet 00:00: mouth [place] 00 daily. [facility] amoxicillin 2020-0 Yes [id number] 1{tbl} Take 1 [facility] -clavulanat 9-13 tablet by [facility] 00:00: mouth 2 (AUGMENTIN) 00 (two) Medical 875-125 mg times Branch per tablet daily. atorvastati 2020-0 Yes [id number] 20mg Take 1 [facility] n 20 mg 9-13 tablet by [facility] tablet 00:00: mouth at [place] 00 bedtime. [facility] carvediloL 2020-0 Yes [id number] 12.5mg Take 1 [facility] 12.5 mg 9-13 tablet by [facility] tablet 00:00: mouth 2 (two) Medical times Branch daily with meals. aspirin 81 2020-0 Yes [id number] 81mg Take 1 [facility] mg chewable 9-13 tablet by [facility] tablet 00:00: mouth [place] 00 daily. [facility] amoxicillin 2020-0 Yes [id number] 1{tbl} Take 1 [facility] -clavulanat 9-13 tablet by [facility] 00:00: mouth 2 [place] (AUGMENTIN) 00 (two) Medical 875-125 mg times Branch per tablet daily. atorvastati 2020-0 Yes [id number] 20mg Take 1 [facility] n 20 mg 9-13 tablet by [facility] tablet 00:00: mouth at [place] 00 bedtime. [facility] carvediloL 2020-0 Yes [id number] 12.5mg Take 1 [facility] 12.5 mg 9-13 tablet by [facility] tablet 00:00: mouth 2 00 (two) Medical times Branch daily with meals. aspirin 81 2020-0 Yes [id number] 81mg Take 1 [facility] mg chewable 9-13 tablet by [facility] tablet 00:00: mouth [place] 00 daily. [facility] amoxicillin 2020-0 Yes [id number] 1{tbl} Take 1 [facility] -clavulanat 9-13 tablet by [facility] 00:00: mouth 2 (AUGMENTIN) 00 (two) Medical 875-125 mg times Branch per tablet daily. atorvastati 2020-0 Yes [id number] 20mg Take 1 [facility] n 20 mg 9-13 tablet by [facility] tablet 00:00: mouth at [place] 00 bedtime. [facility] carvediloL 2020-0 Yes [id number] 12.5mg Take 1 [facility] 12.5 mg 9-13 tablet by [facility] tablet 00:00: mouth 2 [place] 00 (two) Medical times Branch daily with meals. aspirin 81 2020-0 Yes [id number] 81mg Take 1 [facility] mg chewable 9-13 tablet by [facility] tablet 00:00: mouth [place] 00 daily. [facility] amoxicillin 2020-0 Yes [id number] 1{tbl} Take 1 [facility] -clavulanat 9-13 tablet by [facility] 00:00: mouth 2 [place] (AUGMENTIN) 00 (two) Medical 875-125 mg times Branch per tablet daily. atorvastati 2020-0 Yes [id number] 20mg Take 1 [facility] n 20 mg 9-13 tablet by [facility] tablet 00:00: mouth at [place] 00 bedtime. [facility] carvediloL 2020-0 Yes [id number] 12.5mg Take 1 [facility] 12.5 mg 9-13 tablet by [facility] tablet 00:00: mouth 2 [place] (two) Medical times Branch daily with meals. aspirin 81 2020-0 Yes [id number] 81mg Take 1 [facility] mg chewable 9-13 tablet by [facility] tablet 00:00: mouth [place] 00 daily. [facility] amoxicillin 2020-0 Yes [id number] 1{tbl} Take 1 [facility] -clavulanat 9-13 tablet by [facility] 00:00: mouth 2 [place] (AUGMENTIN) 00 (two) Medical 875-125 mg times Branch per tablet daily. atorvastati 2020-0 Yes [id number] 20mg Take 1 [facility] n 20 mg 9-13 tablet by [facility] tablet 00:00: mouth at [place] 00 bedtime. [facility] carvediloL 2020-0 Yes [id number] 12.5mg Take 1 [facility] 12.5 mg 9-13 tablet by [facility] tablet 00:00: mouth 2 [place] 00 (two) Medical times Branch daily with meals. aspirin 81 2020-0 Yes [id number] 81mg Take 1 [facility] mg chewable 9-13 tablet by [facility] tablet 00:00: mouth [place] 00 daily. [facility] amoxicillin 2020-0 Yes [id number] 1{tbl} Take 1 [facility] -clavulanat 9-13 tablet by [facility] 00:00: mouth 2 [place] (AUGMENTIN) 00 (two) Medical 875-125 mg times Branch per tablet daily. atorvastati 2020-0 Yes [id number] 20mg Take 1 [facility] n 20 mg 9-13 tablet by [facility] tablet 00:00: mouth at [place] 00 bedtime. [facility] carvediloL 2020-0 Yes [id number] 12.5mg Take 1 [facility] 12.5 mg 9-13 tablet by [facility] tablet 00:00: mouth 2 00 (two) Medical times Branch daily with meals. aspirin 81 2020-0 Yes [id number] 81mg Take 1 [facility] mg chewable 9-13 tablet by [facility] tablet 00:00: mouth [place] 00 daily. [facility] amoxicillin 2020-0 Yes [id number] 1{tbl} Take 1 [facility] -clavulanat 9-13 tablet by [facility] 00:00: mouth 2 [place] (AUGMENTIN) 00 (two) Medical 875-125 mg times Branch per tablet daily. atorvastati 2020-0 Yes [id number] 20mg Take 1 [facility] n 20 mg 9-13 tablet by [facility] tablet 00:00: mouth at [place] 00 bedtime. [facility] carvediloL 2020-0 Yes [id number] 12.5mg Take 1 [facility] 12.5 mg 9-13 tablet by [facility] tablet 00:00: mouth 2 [place] 00 (two) Medical times Branch daily with meals. aspirin 81 2020-0 Yes [id number] 81mg Take 1 [facility] mg chewable 9-13 tablet by [facility] tablet 00:00: mouth [place] 00 daily. [facility] amoxicillin 2020-0 Yes [id number] 1{tbl} Take 1 [facility] -clavulanat 9-13 tablet by [facility] 00:00: mouth 2 [place] (AUGMENTIN) 00 (two) Medical 875-125 mg times Branch per tablet daily. atorvastati 2020-0 Yes [id number] 20mg Take 1 [facility] n 20 mg 9-13 tablet by [facility] tablet 00:00: mouth at [place] 00 bedtime. [facility] carvediloL 2020-0 Yes [id number] 12.5mg Take 1 [facility] 12.5 mg 9-13 tablet by [facility] tablet 00:00: mouth 2 00 (two) Medical times Branch daily with meals. aspirin 81 2020-0 Yes [id number] 81mg Take 1 [facility] mg chewable 9-13 tablet by [facility] tablet 00:00: mouth [place] 00 daily. [facility] amoxicillin 2020-0 Yes [id number] 1{tbl} Take 1 [facility] -clavulanat 9-13 tablet by [facility] 00:00: mouth 2 (AUGMENTIN) 00 (two) Medical 875-125 mg times Branch per tablet daily. atorvastati 2020-0 Yes [id number] 20mg Take 1 [facility] n 20 mg 9-13 tablet by [facility] tablet 00:00: mouth at [place] 00 bedtime. [facility] carvediloL 2020-0 Yes [id number] 12.5mg Take 1 [facility] 12.5 mg 9-13 tablet by [facility] tablet 00:00: mouth 2 (two) Medical times Branch daily with meals. aspirin 81 2020-0 Yes [id number] 81mg Take 1 [facility] mg chewable 9-13 tablet by [facility] tablet 00:00: mouth [place] 00 daily. [facility] amoxicillin 2020-0 Yes [id number] 1{tbl} Take 1 [facility] -clavulanat 9-13 tablet by [facility] 00:00: mouth 2 [place] (AUGMENTIN) 00 (two) Medical 875-125 mg times Branch per tablet daily. atorvastati 2020-0 Yes [id number] 20mg Take 1 [facility] n 20 mg 9-13 tablet by [facility] tablet 00:00: mouth at [place] 00 bedtime. [facility] carvediloL 2020-0 Yes [id number] 12.5mg Take 1 [facility] 12.5 mg 9-13 tablet by [facility] tablet 00:00: mouth 2 00 (two) Medical times Branch daily with meals. aspirin 81 2020-0 Yes [id number] 81mg Take 1 [facility] mg chewable 9-13 tablet by [facility] tablet 00:00: mouth [place] 00 daily. [facility] amoxicillin 2020-0 Yes [id number] 1{tbl} Take 1 [facility] -clavulanat 9-13 tablet by [facility] 00:00: mouth 2 [place] (AUGMENTIN) 00 (two) Medical 875-125 mg times Branch per tablet daily. atorvastati 2020-0 Yes [id number] 20mg Take 1 [facility] n 20 mg 9-13 tablet by [facility] tablet 00:00: mouth at [place] 00 bedtime. [facility] carvediloL 2020-0 Yes [id number] 12.5mg Take 1 [facility] 12.5 mg 9-13 tablet by [facility] tablet 00:00: mouth 2 [place] 00 (two) Medical times Branch daily with meals. aspirin 81 2020-0 Yes [id number] 81mg Take 1 [facility] mg chewable 9-13 tablet by [facility] tablet 00:00: mouth [place] 00 daily. [facility] amoxicillin 2020-0 Yes [id number] 1{tbl} Take 1 [facility] -clavulanat 9-13 tablet by [facility] 00:00: mouth 2 [place] (AUGMENTIN) 00 (two) Medical 875-125 mg times Branch per tablet daily. atorvastati 2020-0 Yes [id number] 20mg Take 1 [facility] n 20 mg 9-13 tablet by [facility] tablet 00:00: mouth at [place] 00 bedtime. [facility] carvediloL 2020-0 Yes [id number] 12.5mg Take 1 [facility] 12.5 mg 9-13 tablet by [facility] tablet 00:00: mouth 2 [place] (two) Medical times Branch daily with meals. aspirin 81 2020-0 Yes [id number] 81mg Take 1 [facility] mg chewable 9-13 tablet by [facility] tablet 00:00: mouth [place] 00 daily. [facility] amoxicillin 2020-0 Yes [id number] 1{tbl} Take 1 [facility] -clavulanat 9-13 tablet by [facility] 00:00: mouth 2 [place] (AUGMENTIN) 00 (two) Medical 875-125 mg times Branch per tablet daily. atorvastati 2020-0 Yes [id number] 20mg Take 1 [facility] n 20 mg 9-13 tablet by [facility] tablet 00:00: mouth at [place] 00 bedtime. [facility] carvediloL 2020-0 Yes [id number] 12.5mg Take 1 [facility] 12.5 mg 9-13 tablet by [facility] tablet 00:00: mouth 2 [place] 00 (two) Medical times Branch daily with meals. aspirin 81 2020-0 Yes [id number] 81mg Take 1 [facility] mg chewable 9-13 tablet by [facility] tablet 00:00: mouth [place] 00 daily. [facility] amoxicillin 2020-0 Yes [id number] 1{tbl} Take 1 [facility] -clavulanat 9-13 tablet by [facility] 00:00: mouth 2 (AUGMENTIN) 00 (two) Medical 875-125 mg times Branch per tablet daily. atorvastati 2020-0 Yes [id number] 20mg Take 1 [facility] n 20 mg 9-13 tablet by [facility] tablet 00:00: mouth at [place] 00 bedtime. [facility] carvediloL 2020-0 Yes [id number] 12.5mg Take 1 [facility] 12.5 mg 9-13 tablet by [facility] tablet 00:00: mouth 2 00 (two) Medical times Branch daily with meals. aspirin 81 2020-0 Yes [id number] 81mg Take 1 [facility] mg chewable 9-13 tablet by [facility] tablet 00:00: mouth [place] 00 daily. [facility] amoxicillin 2020-0 Yes [id number] 1{tbl} Take 1 [facility] -clavulanat 9-13 tablet by [facility] 00:00: mouth 2 (AUGMENTIN) 00 (two) Medical 875-125 mg times Branch per tablet daily. atorvastati 2020-0 Yes [id number] 20mg Take 1 [facility] n 20 mg 9-13 tablet by [facility] tablet 00:00: mouth at [place] 00 bedtime. [facility] carvediloL 2020-0 Yes [id number] 12.5mg Take 1 [facility] 12.5 mg 9-13 tablet by [facility] tablet 00:00: mouth 2 [place] (two) Medical times Branch daily with meals. aspirin 81 2020-0 Yes [id number] 81mg Take 1 [facility] mg chewable 9-13 tablet by [facility] tablet 00:00: mouth [place] 00 daily. [facility] amoxicillin 2020-0 Yes [id number] 1{tbl} Take 1 [facility] -clavulanat 9-13 tablet by [facility] e 00:00: mouth 2 (AUGMENTIN) 00 (two) Medical 875-125 mg times Branch per tablet daily. atorvastati 2020-0 Yes [id number] 20mg Take 1 [facility] n 20 mg 9-13 tablet by [facility] tablet 00:00: mouth at [place] 00 bedtime. [facility] carvediloL 2020-0 Yes [id number] 12.5mg Take 1 [facility] 12.5 mg 9-13 tablet by [facility] tablet 00:00: mouth 2 00 (two) Medical times Branch daily with meals. aspirin 81 2020-0 Yes [id number] 81mg Take 1 [facility] mg chewable 9-13 tablet by [facility] tablet 00:00: mouth [place] 00 daily. [facility] amoxicillin 2020-0 Yes [id number] 1{tbl} Take 1 [facility] -clavulanat 9-13 tablet by [facility] e 00:00: mouth 2 (AUGMENTIN) 00 (two) Medical 875-125 mg times Branch per tablet daily. atorvastati 2020-0 Yes [id number] 20mg Take 1 [facility] n 20 mg 9-13 tablet by [facility] tablet 00:00: mouth at [place] 00 bedtime. [facility] carvediloL 2020-0 Yes [id number] 12.5mg Take 1 [facility] 12.5 mg 9-13 tablet by [facility] tablet 00:00: mouth 2 (two) Medical times Branch daily with meals. aspirin 81 2020-0 Yes [id number] 81mg Take 1 [facility] mg chewable 9-13 tablet by [facility] tablet 00:00: mouth [place] 00 daily. [facility] amoxicillin 2020-0 Yes [id number] 1{tbl} Take 1 [facility] -clavulanat 9-13 tablet by [facility] e 00:00: mouth 2 (AUGMENTIN) 00 (two) Medical 875-125 mg times Branch per tablet daily. atorvastati 2020-0 Yes [id number] 20mg Take 1 [facility] n 20 mg 9-13 tablet by [facility] tablet 00:00: mouth at [place] 00 bedtime. [facility] carvediloL 2020-0 Yes [id number] 12.5mg Take 1 [facility] 12.5 mg 9-13 tablet by [facility] tablet 00:00: mouth 2 00 (two) Medical times Branch daily with meals. aspirin 81 2020-0 Yes [id number] 81mg Take 1 [facility] mg chewable 9-13 tablet by [facility] tablet 00:00: mouth [place] 00 daily. [facility] amoxicillin 2020-0 Yes [id number] 1{tbl} Take 1 [facility] -clavulanat 9-13 tablet by [facility] e 00:00: mouth 2 (AUGMENTIN) 00 (two) Medical 875-125 mg times Branch per tablet daily. atorvastati 2020-0 Yes [id number] 20mg Take 1 [facility] n 20 mg 9-13 tablet by [facility] tablet 00:00: mouth at [place] 00 bedtime. [facility] carvediloL 2020-0 Yes [id number] 12.5mg Take 1 [facility] 12.5 mg 9-13 tablet by [facility] tablet 00:00: mouth 2 [place] 00 (two) Medical times Branch daily with meals. aspirin 81 2020-0 Yes [id number] 81mg Take 1 [facility] mg chewable 9-13 tablet by [facility] of tablet 00:00: mouth [place] 00 daily. [facility] amoxicillin 2020-0 Yes [id number] 1{tbl} Take 1 [facility] -clavulanat 9-13 tablet by [facility] e 00:00: mouth 2 [place] (AUGMENTIN) 00 (two) Medical 875-125 mg times Branch per tablet daily. atorvastati 2020-0 Yes [id number] 20mg Take 1 [facility] n 20 mg 9-13 tablet by [facility] tablet 00:00: mouth at [place] 00 bedtime. [facility] carvediloL 2020-0 Yes [id number] 12.5mg Take 1 [facility] 12.5 mg 9-13 tablet by [facility] tablet 00:00: mouth 2 [place] (two) Medical times Branch daily with meals. aspirin 81 2020-0 Yes [id number] 81mg Take 1 [facility] mg chewable 9-13 tablet by [facility] tablet 00:00: mouth [place] 00 daily. [facility] amoxicillin 2020-0 Yes [id number] 1{tbl} Take 1 [facility] -clavulanat 9-13 tablet by [facility] e 00:00: mouth 2 [place] (AUGMENTIN) 00 (two) Medical 875-125 mg times Branch per tablet daily. atorvastati 2020-0 Yes [id number] 20mg Take 1 [facility] n 20 mg 9-13 tablet by [facility] tablet 00:00: mouth at [place] 00 bedtime. [facility] carvediloL 2020-0 Yes [id number] 12.5mg Take 1 [facility] 12.5 mg 9-13 tablet by [facility] tablet 00:00: mouth 2 [place] 00 (two) Medical times Branch daily with meals. aspirin 81 2020-0 Yes [id number] 81mg Take 1 [facility] mg chewable 9-13 tablet by [facility] tablet 00:00: mouth [place] 00 daily. [facility] amoxicillin 2020-0 Yes [id number] 1{tbl} Take 1 [facility] -clavulanat 9-13 tablet by [facility] e 00:00: mouth 2 [place] (AUGMENTIN) 00 (two) Medical 875-125 mg times Branch per tablet daily. atorvastati 2020-0 Yes [id number] 20mg Take 1 Univers n 20 mg 9-13 tablet by ity of tablet 00:00: mouth at [place] 00 bedtime. Medical Branch carvediloL 2020-0 Yes [id number] 12.5mg Take 1 [facility] 12.5 mg 9-13 tablet by ity of tablet 00:00: mouth 2 [place] 00 (two) Medical times Branch daily with meals. aspirin 81 2020-0 Yes [id number] 81mg Take 1 [facility] mg chewable 9-13 tablet by ity of tablet 00:00: mouth [place] 00 daily. Medical Branch amoxicillin 2020-0 Yes [id number] 1{tbl} Take 1 Univers -clavulanat 9-13 tablet by ity of e 00:00: mouth 2 [place] (AUGMENTIN) 00 (two) Medical 875-125 mg times Branch per tablet daily. atorvastati 2020-0 Yes [id number] 20mg Take 1 Univers n 20 mg 9-13 tablet by ity of tablet 00:00: mouth at [place] 00 bedtime. Medical Branch carvediloL 2020-0 Yes [id number] 12.5mg Take 1 [facility] 12.5 mg 9-13 tablet by ity of tablet 00:00: mouth 2 [place] 00 (two) Medical times Branch daily with meals. aspirin 81 2020-0 Yes [id number] 81mg Take 1 [facility] mg chewable 9-13 tablet by ity of tablet 00:00: mouth [place] 00 daily. Medical Branch aspirin 81 2020-0 2022- No [id number] 81mg Take 1 [facility] mg chewable 9-13 01-09 tablet by it y of tablet 00:00: 00:00 mouth [place] 00 :00 daily. Medical Branch carvediloL 2020-0 2021- No [id number] 12.5mg Take 1 [facility] 12.5 mg 9-13 12-29 tablet by ity of tablet 00:00: 00:00 mouth 2 [place] 00 :00 (two) Medical times Branch daily with meals. carvediloL 2020-0 2021- No [id number] 12.5mg Take 1 [facility] 12.5 mg 9-13 12-29 tablet by ity of tablet 00:00: 00:00 mouth 2 [place] 00 :00 (two) Medical times Branch daily with meals. carvediloL No [id number] 12.5mg Take 1 [facility] 12.5 mg 9-13 12-29 tablet by ity of tablet 00:00: 00:00 mouth 2 [place] 00 :00 (two) Medical times Branch daily with meals. carvediloL No [id number] 12.5mg Take 1 [facility] 12.5 mg 9-13 12-29 tablet by ity of tablet 00:00: 00:00 mouth 2 [place] 00 :00 (two) Medical times Branch daily with meals. amoxicillin No [id number] 1{tbl} Take 1 Univers -clavulanat 9-13 12-15 tablet by it y of e 00:00: 00:00 mouth 2 [place] (AUGMENTIN) 00 :00 (two) Medical 875-125 mg times Branch per tablet daily. amoxicillin No [id number] 1{tbl} Take 1 Univers -clavulanat 9-13 12-15 tablet by it y of e 00:00: 00:00 mouth 2 [place] (AUGMENTIN) 00 :00 (two) Medical 875-125 mg times Branch per tablet daily. amoxicillin No [id number] 1{tbl} Take 1 Univers -clavulanat 9-13 12-15 tablet by it y of e 00:00: 00:00 mouth 2 [place] (AUGMENTIN) 00 :00 (two) Medical 875-125 mg times Branch per tablet daily. amoxicillin No [id number] 1{tbl} Take 1 Univers -clavulanat 9-13 12-15 tablet by it y of e 00:00: 00:00 mouth 2 [place] (AUGMENTIN) 00 :00 (two) Medical 875-125 mg times Branch per tablet daily. HYDROcodone No [id number] 1{tbl} Take 1 U [...] 12-06 Oral, ity of e 23:00: Q12H, [place] (AUGMENTIN) 00 First dose Me dical 875-125 mg on Thu Branch per tablet 12/07/19 at 1 tablet 1800, Until Discontinu ed, Routine
Reason for Anti-Infec tive: Documented Infection< br>Documen alex Infection Site: Skin / Soft Tissue<br& gt;Duratio n of Therapy: 14 days HYDROcodone 2019-0 Yes 1{tbl} 1 tablet, Univers -acetaminop 12-06 Oral, Q6H, it y of hen (NORCO 23:00: First dose [place] 5) 5-325 mg 00 (after Medica l tablet 1 last Branch tablet modificati on) on Thu12/07/19 at 1800, Until Discontinu ed, Routine ibuprofen 2019-0 Yes 200mg 200 mg, Univ ers (MOTRIN IB) 12-06 Oral, ity of tablet 200 20:52: Q6HPRN, [place] mg 13 Starting Medical Thu12/07/19 Branch at 1552, Until Discontinu ed, Routine, Pain (scale 4-6) amoxicillin 2019-0 2020- No [id number] 1{tbl} Take 1 Univers -clavulanat 12-06 tablet by it y of e 00:00: 04:59 mouth 2 [place] (AUGMENTIN) 00 :00 (two) Medical 875-125 mg times Branch per tablet daily for 14 days. ibuprofen 2019-0 2020- No [id number] 400mg Take 2 [facility] 200 mg 12-06 tablets by ity of tablet 00:00: 04:59 mouth [place] 00 :00 every 6 Medical (six) Branch hours as needed for Pain (scale 1-3) or Pain (scale 4-6) for up to 14 days. acetaminoph 2020-0 2020- No [id number] 650mg Take 2 Univers en 325 mg 12-06-24 tablets by ity of tablet 00:00: 04:59 mouth [place] 00 :00 every 6 Medical (six) Branch hours as needed for Alternate with ibuprofen for pain scale 4-6 for up to 14 days. ibuprofen 2020-0 2020- No [id number] 400mg Take 2 [facility] 200 mg 12-06-24 tablets by ity of tablet 00:00: 04:59 mouth [place] 00 :00 every 6 Medical (six) Branch hours as needed for Pain (scale 1-3) or Pain (scale 4-6) for up to 14 days. acetaminoph 2020-0 2020- No [id number] 650mg Take 2 Univers en 325 mg 12-0624 tablets by ity of tablet 00:00: 04:59 mouth [place] 00 :00 every 6 Medical (six) Branch hours as needed for Alternate with ibuprofen for pain scale 4-6 for up to 14 days. ibuprofen 2020-0 2020- No [id number] 400mg Take 2 [facility] 200 mg 12-0624 tablets by ity of tablet 00:00: 04:59 mouth [place] 00 :00 every 6 Medical (six) Branch hours as needed for Pain (scale 1-3) or Pain (scale 4-6) for up to 14 days. acetaminoph 2020-0 2020- No [id number] 650mg Take 2 Univers en 325 mg 12-0624 tablets by ity of tablet 00:00: 04:59 mouth [place] 00 :00 every 6 Medical (six) Branch hours as needed for Alternate with ibuprofen for pain scale 4-6 for up to 14 days. ibuprofen 2020-0 2020- No [id number] 400mg Take 2 [facility] 200 mg 12-06-24 tablets by ity of tablet 00:00: 04:59 mouth [place] 00 :00 every 6 Medical (six) Branch hours as needed for Pain (scale 1-3) or Pain (scale 4-6) for up to 14 days. acetaminoph 2020-0 2020- No [id number] 650mg Take 2 Univers en 325 mg 12-06-24 tablets by ity of tablet 00:00: 04:59 mouth [place] 00 :00 every 6 Medical (six) Branch hours as needed for Alternate with ibuprofen for pain scale 4-6 for up to 14 days. ibuprofen 2020-0 2020- No [id number] 400mg Take 2 [facility] 200 mg 12-06-24 tablets by ity of tablet 00:00: 04:59 mouth [place] 00 :00 every 6 Medical (six) Branch hours as needed for Pain (scale 1-3) or Pain (scale 4-6) for up to 14 days. acetaminoph 2020-0 2020- No [id number] 650mg Take 2 Univers en 325 mg 12-0624 tablets by ity of tablet 00:00: 04:59 mouth [place] 00 :00 every 6 Medical (six) Branch hours as needed for Alternate with ibuprofen for pain scale 4-6 for up to 14 days. ibuprofen 2020-0 2020- No [id number] 400mg Take 2 [facility] 200 mg 12-0624 tablets by ity of tablet 00:00: 04:59 mouth [place] 00 :00 every 6 Medical (six) Branch hours as needed for Pain (scale 1-3) or Pain (scale 4-6) for up to 14 days. acetaminoph 2020-0 2020- No [id number] 650mg Take 2 Univers en 325 mg 12-06-24 tablets by ity of tablet 00:00: 04:59 mouth [place] 00 :00 every 6 Medical (six) Branch hours as needed for Alternate with ibuprofen for pain scale 4-6 for up to 14 days. ibuprofen 2020-0 2020- No [id number] 400mg Take 2 [facility] 200 mg 12-06-24 tablets by ity of tablet 00:00: 04:59 mouth [place] 00 :00 every 6 Medical (six) Branch hours as needed for Pain (scale 1-3) or Pain (scale 4-6) for up to 14 days. acetaminoph 2020-0 2020- No [id number] 650mg Take 2 Univers en 325 mg 12-06-24 tablets by ity of tablet 00:00: 04:59 mouth [place] 00 :00 every 6 Medical (six) Branch hours as needed for Alternate with ibuprofen for pain scale 4-6 for up to 14 days. ibuprofen 2020-0 2020- No [id number] 400mg Take 2 [facility] 200 mg 12-06-24 tablets by ity of tablet 00:00: 04:59 mouth [place] 00 :00 every 6 Medical (six) Branch hours as needed for Pain (scale 1-3) or Pain (scale 4-6) for up to 14 days. acetaminoph 2019-2019- No [id number] 650mg Take 2 Univers en 325 mg 12-06 tablets by ity of tablet 00:00: 04:59 mouth [place] 00 :00 every 6 Medical (six) Branch hours as needed for Alternate with ibuprofen for pain scale 4-6 for up to 14 days. ibuprofen 2019-2019- No [id number] 400mg Take 2 [facility] 200 mg 12-06 tablets by ity of tablet 00:00: 04:59 mouth [place] 00 :00 every 6 Medical (six) Branch hours as needed for Pain (scale 1-3) or Pain (scale 4-6) for up to 14 days. acetaminoph 2019-2019- No [id number] 650mg Take 2 Univers en 325 mg 12-06 tablets by ity of tablet 00:00: 04:59 mouth [place] 00 :00 every 6 Medical (six) Branch hours as needed for Alternate with ibuprofen for pain scale 4-6 for up to 14 days. amoxicillin 2019-2019- No [id number] 1{tbl} Take 1 Univers -clavulanat 12-06 tablet by it y of e 00:00: 04:59 mouth 2 [place] (AUGMENTIN) 00 :00 (two) Medical 875-125 mg times Branch per tablet daily for 14 days. ibuprofen 2019-2019- No [id number] 400mg Take 2 [facility] 200 mg 12-06 tablets by ity of tablet 00:00: 04:59 mouth [place] 00 :00 every 6 Medical (six) Branch hours as needed for Pain (scale 1-3) or Pain (scale 4-6) for up to 14 days. acetaminoph 2019-2019- No [id number] 650mg Take 2 Univers en 325 mg 12-06 tablets by ity of tablet 00:00: 04:59 mouth [place] 00 :00 every 6 Medical (six) Branch hours as needed for Alternate with ibuprofen for pain scale 4-6 for up to 14 days. HYDROcodone 2019- 2020- No [id number] 1{tbl} Take 1 U nivers -acetaminop 12-06 tablet by it y of hen ([employer]) 00:00: 04:59 mouth [place] 5-325 mg 00 :00 every 6 Medical tablet (six) Branch hours as needed for Pain (scale 7-10) for up to 5 days. Indication s: acute pain HYDROcodone 2019- 2020- No [id number] 1{tbl} Take 1 U nivers -acetaminop 12-06 tablet by it y of hen ([employer]) 00:00: 04:59 mouth [place] 5-325 mg 00 :00 every 6 Medical tablet (six) Branch hours as needed for Pain (scale 7-10) for up to 5 days. Indication s: acute pain amoxicillin 2019- 2020- No [id number] 1{tbl} Take 1 Univers -clavulanat 12-06 tablet by it y of e 00:00: 00:00 mouth 2 [place] (AUGMENTIN) 00 :00 (two) Medical 875-125 mg times Branch per tablet daily for 14 days. HYDROcodone 2019-2019- No [id number] 1{tbl} Take 1 U nivers -acetaminop 12-06 tablet by it y of hen ([employer]) 00:00: 00:00 mouth [place] 5-325 mg 00 :00 every 6 Medical tablet (six) Branch hours as needed for Pain (scale 7-10) for up to 5 days. Indication s: acute pain lactated 2019-0 Yes 1000mL at 42 Univer s ringers IV 9-08 mL/hr, ity of infusion 23:15: 1,000 mL, [place] 1,000 mL 00 IV Medical Infusion, Branch CONTINUOUS , Starting e 12/06/19 at 1815, Until Discontinu ed, Routine, PACU hydralAZINE 2019-0 Yes 5mg 5 mg, Unive rs (APRESOLINE -06 Intravenou it y of ) injection 17:22: s, Q6HPRN, [place] 5 mg 01 Starting Medical 12/04/19 Branch at 1222, Until Discontinu ed, Routine, SBP >160 KCL 2019- 2020- No 40meq 40 mEq, Univers (KLOR-CON 12-03- Oral, ity of M20) tablet 13:00: 14:03 ONCE, 1 [place] 40 mEq 00 :00 dose, [facility] 12/04/19 at Branch 0800, CHARMAINE insulin 2020-0 Yes 17U 17 Units, Unive rs glargine 12-03 Subcutaneo ity o f (LANTUS 02:00: us, HS, [place] U-100) 00 First dose Medical injection (after Branch 17 Units last modificati on) on 12/03/19 at 2100, Until Discontinu ed, Routine insulin 2020-0 Yes 6U 6 Units, Univer s aspart 12-02 Subcutaneo ity of RAPID 16:30: us, [place], [place] (NOVOLOG) 00 First dose Medi shade injection 6 (after Branch Units last modificati on) on 12/03/19 at 1130, Until Discontinu ed, Routine ampicillin- 2019- 2020- No 3g 3 g, IV Un [...] [place] tablet 40 00 First dose Medi sahde mg (after Branch last modificati on) on Thu12/02/19 at 2000, Until Discontinu ed, Routine HYDROcodone 2019-0 2020- No 1{tbl} 1 tablet, Univers -acetaminop 12-01 Oral, ity of hen (NORCO 19:33: 20:50 Q6HPRN, [place] 5) 5-325 mg 48 :39 Starting Medi shade tablet 1 Thu12/02/19 Branc h tablet at 1433, Until 12/07/19 at 1550, Routine, Pain (scale 4-6) acetaminoph [...] :13 First dose Medi shade mg (after [place] last modificati on) on Thu12/01/19 at 2000, [...] Subcutaneo ity of (LANTUS 02:00: 15:07 us, [facility], [place] U-100) 00 :18 First dose Medical injection (after Branch 15 Units last modificati on) on Thu11/29/19 at 2100, Until Discontinu ed, Routine insulin 2020-0 2020- No 4U 4 Units, Unive rs aspart 11-28 Subcutaneo ity of RAPID 21:30: 13:24 , [place], [place] (NOVOLOG) 00 :17 First dose Medi shade injection 4 (after Branch Units last modificati on) on [facility] 11/29/19 at 1630, Until Discontinu ed, Routine potassium 2019-2019- No 20meq 20 mEq, IV Univers chloride 20 11-28 Piggyback, i ty of mEq/100 mL 18:45: 22:38 ONCE, 1 [place] (KCL) 20 00 :00 dose, [facility] l mEq/100 mL 11/29/19 at [facility] RTU IVPB 20 1345, 100 mEq mL KCL 2019- No 40meq 40 mEq, Univers (KLOR-CON 11-28 Oral, ity of M20) tablet 17:10: 17:45 ONCE, 1 [place] 40 mEq 00 :00 dose, [facility] 11/29/19 at Branch 1215, Routine aspirin 2019- Yes 81mg 81 mg, Univers chewable 11-28 Oral, ity of tablet 81 14:00: DAILY, [place] mg 00 First dose Medical on [facility] 11/29/19 at 0900, Until Discontinu ed, Routine carvediloL 2019- No 12.5mg 12.5 mg, Univers (COREG) 11-28 Oral, BID ity of tablet 12.5 13:00: 15:31 MEALS, [place] mg 00 :39 First dose Medical on [facility] 11/29/19 at 0800, Until Discontinu ed, Routine vancomycin 2019- No 1250mg 1,250 mg, Univers 1250 mg in 11-28 IV ity of NS 250 mL 04:00: 13:28 Piggyback, [place] RTU IV 00 :57 Q12H ABX, Medical Piggyback First dose Bran ch 1,250 mg (after last modificati on) on [facility] 11/28/19 at 2300, Until Discontinu ed
Reas on for Anti-Infec tive: Empiric Therapy for Suspected Infection< br>Empiric Therapy Site: Skin / Soft tissue
Duration of therapy: 72 hours atorvastati 2019-0 Yes 20mg 20 mg, Univ ers n (LIPITOR) 11-28 Oral, QHS, it y of tablet 20 02:00: First dose [place] mg 00 on [facility] 8/31/20 at Branch 2100, Until Discontinu ed, Routine hydralAZINE 2019-0 2020- No 10mg 10 mg, Uni vers (APRESOLINE 11-28 Intravenou i ty of ) injection 01:53: 14:56 s, Q4HPRN, [place] 10 mg 17 :17 Starting Medical [facility] 11/28/19 at 2053, Until Thu12/02/19 at 0956, Routine, Hypertensi on, SBP > 160 mmHg hydralAZINE 2019-0 2020- No 5mg 5 mg, Univ ers (APRESOLINE 11-28 Intravenou i ty of ) injection 01:00: 01:54 s, Q4H, [place] 5 mg 00 :55 First dose Medical on [facility] 11/28/19 at 2000, Until Discontinu ed, Routine sodium 2019-0 Yes Topical, Univers hypochlorit 11-27 DAILY, ity of e 0.025% 14:00: First dose [place] as ([employer]) 00 on [facility] Medical solution 11/28/19 at [facility] h 0900, Until Discontinu ed, Routine KCL 2019-0 2020- No 40meq 40 mEq, IV Unive rs (POTASSIUM 11-27 Piggyback, it y of CHLORIDE) 12:15: 13:19 ONCE, 1 [place] 40 mEq in 00 :00 dose, [facility] Medic al NaCl 0.9% 11/28/19 at [facility] (NS) 0715, 250 piggyback mL KCL 2019-0 2020- No 40meq 40 mEq, Univers (KLOR-CON 11-27 Oral, ity of M20) tablet 12:15: 13:19 ONCE, 1 [place] 40 mEq 00 :00 dose, [facility] Medical 11/28/19 at Branch 0715, STAT ketorolac 2019-0 2020- No 15mg 15 mg, Unive rs (TORADOL) 11-27 Slow IV ity of injection 05:00: 04:59 Push, Q6H, [place] 15 mg 00 :00 4 doses, Medical First dose Branch on Thu11/28/19 at 0000, Last dose on Thu11/28/19 at 1800, Routine
member of parliament approving Restricted medication : YADIRA NICK lactated 2020-0 Yes 1000mL at 42 Univer s ringers IV 8-31 mL/hr, ity of infusion 04:15: 1,000 mL, [place] 1,000 mL 00 IV Medical Infusion, Branch CONTINUOUS , Starting [place] 11/27/19 at 2315, Until Discontinu ed, Routine acetaminoph 2020-0 2020- No 1000mg 1,000 mg, Univers en ADULT 11-2701 IV ity of (OFIRMEV) 03:00: 02:03 Infusion, [place] injection 00 :00 Administer Medi shade 1,000 mg over 15 Branch Minutes, Q8H, 3 doses, First dose on [place] 11/27/19 at 2200, Last dose on 11/28/19 at 1400, Routine
Indicatio n: Perioperat amando Patient morpHINE 2019-0 Yes 4mg 4 mg, Slow Uni vers injection 4 11-27 IV Push, ity of mg 02:57: Q4HPRN, [place] [id number] Starting [facility] 11/27/19 at 2157, Until Discontinu ed, Routine, Pain (scale 7-10) KCL 2020-0 2020- No 40meq 40 mEq, IV Unive rs (POTASSIUM 11-26 Piggyback, it y of CHLORIDE) 11:23: 13:55 ONCE, 1 [place] 40 mEq in 00 :00 dose, [place] Medic al NaCl 0.9% 11/27/19 at [facility] ch (NS) 0630, 250 piggyback mL KCL 2020-0 2020- No 40meq 40 mEq, Univers (KLOR-CON 11-26 Oral, ity of M20) tablet 11:22: 11:40 ONCE, 1 [place] 40 mEq 00 :00 dose, [place] Medical 11/27/19 at Branch 0630, Routine NaCl 0.9% 2020-0 2020- No 1000mL at 50 Univ ers (NS) IV 11-26- mL/hr, IV ity of infusion 04:15: 03:04 Infusion, [place] 1,000 mL 00 :30 CONTINUOUS Medic al , Starting [facility] 11/26/19 at 2315, Until [place] 11/27/19 at 2204, Routine gadoteridol 2020-0 2020- No .2mL/kg 12.62 mL Univers (PROHANCE-1 11-25 (0.2 mL/kg i ty of 5 mL) 21:30: 21:16 ?63.1 kg), [place] injection 00 :00 Intravenou Medi shade 12.62 mL s, ONCE, 1 Branc h dose, [facility] 11/26/19 at 1630, Routine vancomycin 2019-0 2020- No 15mg/kg 1,000 mg Univers (VANCOCIN) 11-25 (rounded ity of 1,000 mg in 16:00: 01:50 from 946.5 [place] NaCl 0.9% 00 :30 mg = 15 Medical (NS) 250 mL mg/kg Branch VIAL-MATE ?63.1 kg), IV IV piggyback Piggyback, Q12H ABX, First dose on 11/26/19 at 1100, Until Discontinu ed, 250 mL
Reas on for Anti-Infec tive: Empiric Therapy for Suspected Infection< br>Empiric Therapy Site: Skin / Soft tissue
Duration of therapy: 72 hours lisinopriL 2019- 2020- No 20mg 20 mg, [facility] ers (PRINIVIL,Z 11-25 Oral, ity of ESTRIL) 14:00: 15:33 DAILY, [place] tablet 20 00 :58 First dose Medi shade mg on [facility] Branch 11/26/19 at 0900, Until Discontinu ed, Routine enoxaparin 2019-2019- No 40mg 40 mg, [facility] ers (LOVENOX) 11-2531 Subcutaneo ity of injection 14:00: 03:04 us, DAILY, [place] 40 mg 00 :30 First dose Medical on [facility] Branch 11/26/19 at 0900, Until Discontinu ed, Routine insulin 2019-0 2020- No 3U 3 Units, [facility] rs aspart 11-25 Subcutaneo ity of RAPID 12:30: 17:09 , [place], [place] (NOVOLOG) 00 :27 First dose Medi shade injection 3 on [facility] Branch Units 11/26/19 at 0730, Until Discontinu [...] Therapy: 7 days Sliding 2020-0 Yes Subcutaneo [facility] ers Scale 8-29 us, Q4H, ity of Insulin - 09:00: First dose [place] Aspart 00 on [facility] Medical (NOVOLOG) + 11/26/19 at Br anch Fsbg 0400, Testing Until Discontinu ed, Routine insulin 2019-0 2020- No 12U 12 Units, [facility] ers glargine 11-25 Subcutaneo ity of (LANTUS 08:00: 17:09 us, QHS, [place] U-100) 00 :27 First dose Medical injection on [facility] Branch 12 Units 11/26/19 at 0300, Until Discontinu ed, Routine NaCl 0.9% 2020-0 2020- No 1000mL at 999 Uni vers (NS) bolus 11-25 08-29 mL/hr, ity of infusion 07:00: 07:03 1,000 mL, [place] 1,000 mL 00 :00 IV Medical Piggyback, [place] ONCE, 1 dose, 11/26/19 at 0200, STAT NaCl 0.9% 2020-0 2020- No 1000mL at 125 Uni vers (NS) IV 11-25 08-30 mL/hr, IV ity of infusion 06:30: 04:04 Infusion, [place] 1,000 mL 00 :54 CONTINUOUS Medic al , Starting Branch [facility] 11/26/19 at 0130, Until 11/26/19 at 2304, Routine traMADoL 2020-0 2020- No 50mg 50 mg, Univer s (ULTRAM) 11-25 08-31 Oral, ity of tablet 50 06:23: 02:57 Q8HPRN, [place] mg 27 :59 Starting Medical [facility] 11/26/19 at 0123, Until 11/27/19 at 2157, [...] o f human 04:30: 03:27 , ONCE, [place] (HUMULIN R) 00 :00 1 dose, Medic al injection 5 Thu Branch Units 11/25/19 at 2330, Routine piperacilli 2020- No 3.375g 3.375 g, Univers n-tazobacta [...] ity of 1,000 mg in 04:30: 15:09 [place], [place] NaCl 0.9% 00 :47 Q12H ABX, Medic al (NS) 250 mL First dose Br anch VIAL-MATE on Thu IV 11/25/19 at piggyback 2330, Until Discontinu ed, 250 mL
Reas on for Anti-Infec tive: Documented Infection< br>Documen alex Infection Site: Skin / Soft Tissue
Duration of Therapy: Other (see Comments) lisinopril Yes [id number] 20mg Take 1 Univers 20 mg 4-04 [id number] tablet by ity of tablet 00:00: mouth [place] 00 daily. Medical Branch lisinopril Yes [id number] 20mg Take 1 Univers 20 mg 4-04 [id number] tablet by ity of tablet 00:00: mouth [place] 00 daily. Medical Branch lisinopril Yes [id number] 20mg Take 1 Univers 20 mg 4-04 [id number] tablet by ity of tablet 00:00: mouth [place] 00 daily. [facility] lisinopril 2019-0 Yes [id number] 20mg Take 1 Univers 20 mg 4-04 [id number] tablet by ity of tablet 00:00: mouth [place] 00 daily. [facility] lisinopril 2018-0 Yes [id number] 20mg Take 1 Univers 20 mg 4-04 [id number] tablet by ity of tablet 00:00: mouth [place] 00 daily. [facility] lisinopril 2018-0 Yes [id number] 20mg Take 1 Univers 20 mg 4-04 [id number] tablet by ity of tablet 00:00: mouth [place] 00 daily. [facility] lisinopril 2018-0 Yes [id number] 20mg Take 1 Univers 20 mg 4-04 [id number] tablet by ity of tablet 00:00: mouth [place] 00 daily. [facility] lisinopril 2018-0 Yes [id number] 20mg Take 1 Univers 20 mg 4-04 [id number] tablet by ity of tablet 00:00: mouth [place] 00 daily. [facility] lisinopril 2018-0 Yes [id number] 20mg Take 1 Univers 20 mg 4-04 [id number] tablet by ity of tablet 00:00: mouth [place] 00 daily. [facility] lisinopril 2018-0 Yes [id number] 20mg Take 1 Univers 20 mg 4-04 [id number] tablet by ity of tablet 00:00: mouth [place] 00 daily. [facility] lisinopril 2018-0 Yes [id number] 20mg Take 1 Univers 20 mg 4-04 [id number] tablet by ity of tablet 00:00: mouth [place] 00 daily. [facility] lisinopril 2019-0 Yes [id number] 20mg Take 1 Univers 20 mg 4-04 [id number] tablet by ity of tablet 00:00: mouth [place] 00 daily. [facility] lisinopril 2019-0 Yes [id number] 20mg Take 1 Univers 20 mg 4-04 [id number] tablet by ity of tablet 00:00: mouth [place] 00 daily. [facility] lisinopril 2019-0 Yes [id number] 20mg Take 1 Univers 20 mg 4-04 [id number] tablet by ity of tablet 00:00: mouth [place] 00 daily. [facility] lisinopril 2019-0 Yes [id number] 20mg Take 1 Univers 20 mg 4-04 [id number] tablet by ity of tablet 00:00: mouth [place] 00 daily. [facility] lisinopril 2019-0 Yes [id number] 20mg Take 1 Univers 20 mg 4-04 [id number] tablet by ity of tablet 00:00: mouth [place] 00 daily. [facility] Branch lisinopril 2019-0 Yes [id number] 20mg Take 1 Univers 20 mg 4-04 [id number] tablet by ity of tablet 00:00: mouth [place] 00 daily. [facility] Branch lisinopril 2019-0 Yes [id number] 20mg Take 1 Univers 20 mg 4-04 [id number] tablet by ity of tablet 00:00: mouth [place] 00 daily. [facility] Branch lisinopril 2019-0 Yes [id number] 20mg Take 1 Univers 20 mg 4-04 [id number] tablet by ity of tablet 00:00: mouth [place] 00 daily. [facility] Branch lisinopril 2018-0 Yes [id number] 20mg Take 1 Univers 20 mg 4-04 [id number] tablet by ity of tablet 00:00: mouth [place] 00 daily. [facility] lisinopril 2018-0 Yes [id number] 20mg Take 1 Univers 20 mg 4-04 [id number] tablet by ity of tablet 00:00: mouth [place] 00 daily. [facility] lisinopril 2018-0 Yes [id number] 20mg Take 1 Univers 20 mg 4-04 [id number] tablet by ity of tablet 00:00: mouth [place] 00 daily. [facility] lisinopril 2019-0 Yes [id number] 20mg Take 1 Univers 20 mg 4-04 [id number] tablet by ity of tablet 00:00: mouth [place] 00 daily. [facility] lisinopril 2019-0 Yes [id number] 20mg Take 1 Univers 20 mg 4-04 [id number] tablet by ity of tablet 00:00: mouth [place] 00 daily. [facility] lisinopril 2019-0 Yes [id number] 20mg Take 1 Univers 20 mg 4-04 [id number] tablet by ity of tablet 00:00: mouth [place] 00 daily. [facility] lisinopril 2019-0 Yes [id number] 20mg Take 1 Univers 20 mg 4-04 [id number] tablet by ity of tablet 00:00: mouth [place] 00 daily. [facility] lisinopril 2019-0 Yes [id number] 20mg Take 1 Univers 20 mg 4-04 [id number] tablet by ity of tablet 00:00: mouth [place] 00 daily. [facility] lisinopril 2019-0 Yes [id number] 20mg Take 1 [facility] 20 mg 4-04 [id number] tablet by [facility] of tablet 00:00: mouth [place] 00 daily. [facility] lisinopril 2018-0 Yes [id number] 20mg Take 1 [facility] 20 mg 4-04 [id number] tablet by [facility] of tablet 00:00: mouth [place] 00 daily. [facility] lisinopril 2018-0 Yes [id number] 20mg Take 1 [facility] 20 mg 4-04 [id number] tablet by [facility] of tablet 00:00: mouth [place] 00 daily. [facility] lisinopril 2018-0 Yes [id number] 20mg Take 1 [facility] 20 mg 4-04 [id number] tablet by [facility] of tablet 00:00: mouth [place] 00 daily. [facility] lisinopril 2018-0 Yes [id number] 20mg Take 1 [facility] 20 mg 4-04 [id number] tablet by [facility] of tablet 00:00: mouth [place] 00 daily. [facility] lisinopril 2018-0 Yes [id number] 20mg Take 1 [facility] 20 mg 4-04 [id number] tablet by [facility] of tablet 00:00: mouth [place] 00 daily. [facility] lisinopril 2018-0 Yes [id number] 20mg Take 1 [facility] 20 mg 4-04 [id number] tablet by [facility] of tablet 00:00: mouth [place] 00 daily. [facility] lisinopril 2018-0 Yes [id number] 20mg Take 1 [facility] 20 mg 4-04 [id number] tablet by [facility] of tablet 00:00: mouth [place] 00 daily. [facility] lisinopril 2018-0 Yes [id number] 20mg Take 1 [facility] 20 mg 4-04 [id number] tablet by [facility] of tablet 00:00: mouth [place] 00 daily. [facility] lisinopril 2018-0 Yes [id number] 20mg Take 1 [facility] 20 mg 4-04 [id number] tablet by [facility] of tablet 00:00: mouth [place] 00 daily. [facility] lisinopril 2019-0 Yes [id number] 20mg Take 1 [facility] 20 mg 4-04 [id number] tablet by [facility] of tablet 00:00: mouth [place] 00 daily. [facility] lisinopril 2018-0 Yes [id number] 20mg Take 1 [facility] 20 mg 4-04 [id number] tablet by [facility] of tablet 00:00: mouth [place] 00 daily. [facility] lisinopril 2019-0 Yes [id number] 20mg Take 1 [facility] 20 mg 4-04 [id number] tablet by [facility] of tablet 00:00: mouth [place] 00 daily. [facility] lisinopril 2018-0 Yes [id number] 20mg Take 1 [facility] 20 mg 4-04 [id number] tablet by [facility] of tablet 00:00: mouth [place] 00 daily. [facility] lisinopril 2018-0 Yes [id number] 20mg Take 1 [facility] 20 mg 4-04 [id number] tablet by [facility] of tablet 00:00: mouth [place] 00 daily. [facility] lisinopril 0 Yes [id number] 20mg Take 1 [facility] 20 mg 4-04 [id number] tablet by [facility] of tablet 00:00: mouth [place] 00 daily. [facility] lisinopril 2018-0 Yes [id number] 20mg Take 1 [facility] 20 mg 4-04 [id number] tablet by [facility] of tablet 00:00: mouth [place] 00 daily. [facility] lisinopril 2018-0 Yes [id number] 20mg Take 1 [facility] 20 mg 4-04 [id number] tablet by [facility] of tablet 00:00: mouth [place] 00 daily. [facility] lisinopril 0 Yes [id number] 20mg Take 1 [facility] 20 mg 4-04 [id number] tablet by [facility] of tablet 00:00: mouth [place] 00 daily. [facility] lisinopril 2018-0 Yes [id number] 20mg Take 1 [facility] 20 mg 4-04 [id number] tablet by [facility] of tablet 00:00: mouth [place] 00 daily. [facility] lisinopril 2018-0 Yes [id number] 20mg Take 1 [facility] 20 mg 4-04 [id number] tablet by [facility] of tablet 00:00: mouth [place] 00 daily. [facility] lisinopril 2018-0 Yes [id number] 20mg Take 1 [facility] 20 mg 4-04 [id number] tablet by [facility] of tablet 00:00: mouth [place] 00 daily. [facility] lisinopril 2018-0 Yes [id number] 20mg Take 1 [facility] 20 mg 4-04 [id number] tablet by [facility] of tablet 00:00: mouth [place] 00 daily. [facility] lisinopril 2018-0 Yes [id number] 20mg Take 1 [facility] 20 mg 4-04 [id number] tablet by [facility] of tablet 00:00: mouth [place] 00 daily. [facility] lisinopril 2018-0 Yes [id number] 20mg Take 1 [facility] 20 mg 4-04 [id number] tablet by [facility] of tablet 00:00: mouth [place] 00 daily. [facility] lisinopril Yes [id number] 20mg Take 1 [facility] 20 mg 4-04 [id number] tablet by [facility] of tablet 00:00: mouth [place] 00 daily. [facility] lisinopril Yes [id number] 20mg Take 1 [facility] 20 mg 4-04 [id number] tablet by [facility] of tablet 00:00: mouth [place] 00 daily. [facility] lisinopril Yes [id number] 20mg Take 1 [facility] 20 mg 4-04 [id number] tablet by [facility] of tablet 00:00: mouth [place] 00 daily. [facility] lisinopril Yes [id number] 20mg Take 1 [facility] 20 mg 4-04 [id number] tablet by [facility] of tablet 00:00: mouth [place] 00 daily. [facility] lisinopril Yes [id number] 20mg Take 1 [facility] 20 mg 4-04 [id number] tablet by [facility] of tablet 00:00: mouth [place] 00 daily. [facility] lisinopril Yes [id number] 20mg Take 1 [facility] 20 mg 4-04 [id number] tablet by [facility] of tablet 00:00: mouth [place] 00 daily. [facility] lisinopril Yes [id number] 20mg Take 1 [facility] 20 mg 4-04 [id number] tablet by [facility] of tablet 00:00: mouth [place] 00 daily. [facility] lisinopril Yes [id number] 20mg Take 1 [facility] 20 mg 4-04 [id number] tablet by [facility] of tablet 00:00: mouth [place] 00 daily. [facility] lisinopril 0 Yes [id number] 20mg Take 1 [facility] 20 mg 4-04 [id number] tablet by [facility] of tablet 00:00: mouth [place] 00 daily. [facility] lisinopril 0 Yes [id number] 20mg Take 1 [facility] 20 mg 4-04 [id number] tablet by [facility] of tablet 00:00: mouth [place] 00 daily. [facility] lisinopril 0 Yes [id number] 20mg Take 1 [facility] 20 mg 4-04 [id number] tablet by [facility] of tablet 00:00: mouth [place] 00 daily. [facility] lisinopril 2018-0 2- No [id number] 20mg Take 1 [facility] 20 mg 4-03-27 [id number] tablet by [facility] of tablet 00:00: 00:00 mouth [place] 00 :00 daily. [facility] lisinopril 2021- No [id number] 20mg Take 1 [facility] 20 mg -03-27 [id number] tablet by [facility] of tablet 00:00: 00:00 mouth [place] 00 :00 daily. [facility] lisinopril 2021- No [id number] 20mg Take 1 [facility] 20 mg -03-27 [id number] tablet by [facility] of tablet 00:00: 00:00 mouth [place] 00 :00 daily. [facility] lisinopril 2021- No [id number] 20mg Take 1 [facility] 20 mg -03-27 [id number] tablet by [facility] of tablet 00:00: 00:00 mouth [place] 00 :00 daily. [facility] metFORMIN 2018- Yes [id number] 1000mg Take 1 [facility] 1,000 mg 4-03 [id number] tablet by [facility] of tablet 00:00: mouth (two) Medical times Branch daily with meals. metFORMIN 2018- Yes [id number] 1000mg Take 1 [facility] 1,000 mg 4-03 [id number] tablet by [facility] of tablet 00:00: mouth (two) [facility] times [facility] daily with meals. metFORMIN 2019-0 Yes [id number] 1000mg Take 1 [facility] 1,000 mg 4-03 [id number] tablet by [facility] of tablet 00:00: mouth (two) [facility] times [facility] daily with meals. metFORMIN 2019-0 Yes [id number] 1000mg Take 1 [facility] 1,000 mg 4-03 [id number] tablet by [facility] of tablet 00:00: mouth (two) Medical times [facility] daily with meals. metFORMIN 2019-0 Yes [id number] 1000mg Take 1 [facility] 1,000 mg 4-03 [id number] tablet by [facility] of tablet 00:00: mouth 2 (two) Medical times [facility] daily with meals. metFORMIN 2019-0 Yes [id number] 1000mg Take 1 [facility] 1,000 mg 4-03 [id number] tablet by [facility] of tablet 00:00: mouth 2 (two) Medical times [facility] daily with meals. metFORMIN 2019-0 Yes [id number] 1000mg Take 1 [facility] 1,000 mg 4-03 [id number] tablet by [facility] of tablet 00:00: mouth (two) Medical times [facility] daily with meals. metFORMIN 2019-0 Yes [id number] 1000mg Take 1 [facility] 1,000 mg 4-03 [id number] tablet by [facility] of tablet 00:00: mouth (two) Medical times [facility] daily with meals. metFORMIN 2019-0 Yes [id number] 1000mg Take 1 [facility] 1,000 mg 4-03 [id number] tablet by [facility] of tablet 00:00: mouth (two) Medical times [facility] daily with meals. metFORMIN 2019-0 Yes [id number] 1000mg Take 1 [facility] 1,000 mg 4-03 [id number] tablet by [facility] of tablet 00:00: mouth (two) Medical times [facility] daily with meals. metFORMIN 2019-0 Yes [id number] 1000mg Take 1 [facility] 1,000 mg 4-03 [id number] tablet by [facility] of tablet 00:00: mouth (two) Medical times [facility] daily with meals. metFORMIN 2019-0 Yes [id number] 1000mg Take 1 [facility] 1,000 mg 4-03 [id number] tablet by [facility] of tablet 00:00: mouth (two) Medical times Branch daily with meals. metFORMIN 2019-0 Yes [id number] 1000mg Take 1 [facility] 1,000 mg 4-03 [id number] tablet by [facility] of tablet 00:00: mouth (two) Medical times [facility] daily with meals. metFORMIN 2019-0 Yes [id number] 1000mg Take 1 [facility] 1,000 mg 4-03 [id number] tablet by [facility] of tablet 00:00: mouth (two) Medical times Branch daily with meals. metFORMIN 2019-0 Yes [id number] 1000mg Take 1 [facility] 1,000 mg 4-03 [id number] tablet by [facility] of tablet 00:00: mouth (two) Medical times Branch daily with meals. metFORMIN 2019-0 Yes [id number] 1000mg Take 1 [facility] 1,000 mg 4-03 [id number] tablet by [facility] of tablet 00:00: mouth (two) Medical times Branch daily with meals. metFORMIN 2019-0 Yes [id number] 1000mg Take 1 [facility] 1,000 mg 4-03 [id number] tablet by [facility] of tablet 00:00: mouth (two) Medical times Branch daily with meals. metFORMIN 2019-0 Yes [id number] 1000mg Take 1 [facility] 1,000 mg 4-03 [id number] tablet by [facility] of tablet 00:00: mouth (two) Medical times Branch daily with meals. metFORMIN 2019-0 Yes [id number] 1000mg Take 1 [facility] 1,000 mg 4-03 [id number] tablet by [facility] of tablet 00:00: mouth (two) Medical times Branch daily with meals. metFORMIN 2019-0 Yes [id number] 1000mg Take 1 [facility] 1,000 mg 4-03 [id number] tablet by [facility] of tablet 00:00: mouth (two) Medical times Branch daily with meals. metFORMIN 2019-0 Yes [id number] 1000mg Take 1 [facility] 1,000 mg 4-03 [id number] tablet by [facility] of tablet 00:00: mouth (two) Medical times Branch daily with meals. metFORMIN 2019-0 Yes [id number] 1000mg Take 1 [facility] 1,000 mg 4-03 [id number] tablet by [facility] of tablet 00:00: mouth (two) Medical times Branch daily with meals. metFORMIN 2019-0 Yes [id number] 1000mg Take 1 [facility] 1,000 mg 4-03 [id number] tablet by [facility] of tablet 00:00: mouth (two) Medical times Branch daily with meals. metFORMIN 2019-0 Yes [id number] 1000mg Take 1 [facility] 1,000 mg 4-03 [id number] tablet by [facility] of tablet 00:00: mouth (two) Medical times Branch daily with meals. metFORMIN 2019-0 Yes [id number] 1000mg Take 1 [facility] 1,000 mg 4-03 [id number] tablet by [facility] of tablet 00:00: mouth (two) Medical times Branch daily with meals. metFORMIN 2019-0 Yes [id number] 1000mg Take 1 [facility] 1,000 mg 4-03 [id number] tablet by [facility] of tablet 00:00: mouth (two) Medical times Branch daily with meals. metFORMIN 2019-0 Yes [id number] 1000mg Take 1 [facility] 1,000 mg 4-03 [id number] tablet by [facility] of tablet 00:00: mouth (two) Medical times Branch daily with meals. metFORMIN 2019-0 Yes [id number] 1000mg Take 1 [facility] 1,000 mg 4-03 [id number] tablet by [facility] of tablet 00:00: mouth (two) Medical times Branch daily with meals. metFORMIN 2019-0 Yes [id number] 1000mg Take 1 [facility] 1,000 mg 4-03 [id number] tablet by [facility] of tablet 00:00: mouth (two) Medical times Branch daily with meals. metFORMIN 2019-0 Yes [id number] 1000mg Take 1 [facility] 1,000 mg 4-03 [id number] tablet by [facility] of tablet 00:00: mouth (two) Medical times Branch daily with meals. metFORMIN 2019-0 Yes [id number] 1000mg Take 1 [facility] 1,000 mg 4-03 [id number] tablet by [facility] of tablet 00:00: mouth (two) Medical times Branch daily with meals. metFORMIN 2019-0 Yes [id number] 1000mg Take 1 [facility] 1,000 mg 4-03 [id number] tablet by [facility] of tablet 00:00: mouth (two) Medical times Branch daily with meals. metFORMIN 2019-0 Yes [id number] 1000mg Take 1 [facility] 1,000 mg 4-03 [id number] tablet by [facility] of tablet 00:00: mouth (two) Medical times Branch daily with meals. metFORMIN 2019-0 Yes [id number] 1000mg Take 1 [facility] 1,000 mg 4-03 [id number] tablet by [facility] of tablet 00:00: mouth (two) Medical times Branch daily with meals. metFORMIN 2019-0 Yes [id number] 1000mg Take 1 [facility] 1,000 mg 4-03 [id number] tablet by [facility] of tablet 00:00: mouth (two) Medical times Branch daily with meals. metFORMIN 2019-0 Yes [id number] 1000mg Take 1 [facility] 1,000 mg 4-03 [id number] tablet by [facility] of tablet 00:00: mouth (two) Medical times Branch daily with meals. metFORMIN 2019-0 Yes [id number] 1000mg Take 1 [facility] 1,000 mg 4-03 [id number] tablet by [facility] of tablet 00:00: mouth (two) Medical times Branch daily with meals. metFORMIN 2019-0 Yes [id number] 1000mg Take 1 [facility] 1,000 mg 4-03 [id number] tablet by [facility] of tablet 00:00: mouth (two) Medical times Branch daily with meals. metFORMIN 2019-0 Yes [id number] 1000mg Take 1 [facility] 1,000 mg 4-03 [id number] tablet by it[facility] of tablet 00:00: mouth (two) Medical times Branch daily with meals. metFORMIN 2019-0 Yes [id number] 1000mg Take 1 [facility] 1,000 mg 4-03 [id number] tablet by it[facility] of tablet 00:00: mouth (two) Medical times Branch daily with meals. metFORMIN 2019-0 Yes [id number] 1000mg Take 1 [facility] 1,000 mg 4-03 [id number] tablet by it[facility] of tablet 00:00: mouth (two) Medical times Branch daily with meals. metFORMIN 2019-0 Yes [id number] 1000mg Take 1 [facility] 1,000 mg 4-03 [id number] tablet by [facility] of tablet 00:00: mouth (two) Medical times Branch daily with meals. metFORMIN 2019-0 Yes [id number] 1000mg Take 1 [facility] 1,000 mg 4-03 [id number] tablet by [facility] of tablet 00:00: mouth (two) Medical times Branch daily with meals. metFORMIN 2019-0 Yes [id number] 1000mg Take 1 [facility] 1,000 mg 4-03 [id number] tablet by [facility] of tablet 00:00: mouth (two) Medical times Branch daily with meals. metFORMIN 2019-0 Yes [id number] 1000mg Take 1 [facility] 1,000 mg 4-03 [id number] tablet by [facility] of tablet 00:00: mouth () Medical times Branch daily with meals. metFORMIN 2019-0 Yes [id number] 1000mg Take 1 [facility] 1,000 mg 4-03 [id number] tablet by [facility] of tablet 00:00: mouth (two) Medical times Branch daily with meals. metFORMIN 2019-0 Yes [id number] 1000mg Take 1 [facility] 1,000 mg 4-03 [id number] tablet by [facility] of tablet 00:00: mouth (two) Medical times Branch daily with meals. metFORMIN 2019-0 Yes [id number] 1000mg Take 1 [facility] 1,000 mg 4-03 [id number] tablet by [facility] of tablet 00:00: mouth (two) Medical times Branch daily with meals. metFORMIN 2019-0 Yes [id number] 1000mg Take 1 [facility] 1,000 mg 4-03 [id number] tablet by [facility] of tablet 00:00: mouth (two) Medical times Branch daily with meals. metFORMIN 2019-0 Yes [id number] 1000mg Take 1 [facility] 1,000 mg 4-03 [id number] tablet by [facility] of tablet 00:00: mouth (two) Medical times Branch daily with meals. metFORMIN 2019-0 Yes [id number] 1000mg Take 1 [facility] 1,000 mg 4-03 [id number] tablet by [facility] of tablet 00:00: mouth (two) Medical times Branch daily with meals. metFORMIN 2019-0 Yes [id number] 1000mg Take 1 [facility] 1,000 mg 4-03 [id number] tablet by [facility]y of tablet 00:00: mouth (two) Medical times Branch daily with meals. metFORMIN 2019-0 Yes [id number] 1000mg Take 1 [facility] 1,000 mg 4-03 [id number] tablet by ity of tablet 00:00: mouth (two) Medical times Branch daily with meals. metFORMIN 2019-0 Yes [id number] 1000mg Take 1 [facility] 1,000 mg 4-03 [id number] tablet by ity of tablet 00:00: mouth (two) Medical times Branch daily with meals. metFORMIN 2019-0 Yes [id number] 1000mg Take 1 [facility] 1,000 mg 4-03 [id number] tablet by ity of tablet 00:00: mouth (two) Medical times Branch daily with meals. metFORMIN 2019-0 Yes [id number] 1000mg Take 1 [facility] 1,000 mg 4-03 [id number] tablet by ity of tablet 00:00: mouth (two) Medical times Branch daily with meals. metFORMIN 2019-0 Yes [id number] 1000mg Take 1 [facility] 1,000 mg 4-03 [id number] tablet by ity of tablet 00:00: mouth (two) Medical times Branch daily with meals. metFORMIN 2019-0 Yes [id number] 1000mg Take 1 [facility] 1,000 mg 4-03 [id number] tablet by ity of tablet 00:00: mouth (two) Medical times Branch daily with meals. metFORMIN 2019-0 Yes [id number] 1000mg Take 1 [facility] 1,000 mg 4-03 [id number] tablet by it[facility] of tablet 00:00: mouth (two) Medical times Branch daily with meals. metFORMIN 2019-0 Yes [id number] 1000mg Take 1 [facility] 1,000 mg 4-03 [id number] tablet by ity of tablet 00:00: mouth (two) Medical times Branch daily with meals. metFORMIN 2019-0 Yes [id number] 1000mg Take 1 [facility] 1,000 mg 4-03 [id number] tablet by [facility] of tablet 00:00: mouth (two) Medical times Branch daily with meals. metFORMIN 2019-0 Yes [id number] 1000mg Take 1 [facility] 1,000 mg 4-03 [id number] tablet by ity of tablet 00:00: mouth (two) Medical times Branch daily with meals. metFORMIN 2019-0 Yes [id number] 1000mg Take 1 [facility] 1,000 mg 4-03 [id number] tablet by ity of tablet 00:00: mouth (two) Medical times Branch daily with meals. metFORMIN 2019-0 Yes [id number] 1000mg Take 1 [facility] 1,000 mg 4-03 [id number] tablet by ity of tablet 00:00: mouth (two) Medical times Branch daily with meals. metFORMIN 2019-0 Yes [id number] 1000mg Take 1 [facility] 1,000 mg 4-03 [id number] tablet by ity of tablet 00:00: mouth (two) Medical times Branch daily with meals. metFORMIN 2019-0 Yes [id number] 1000mg Take 1 [facility] 1,000 mg 4-03 [id number] tablet by ity of tablet 00:00: mouth (two) Medical times Branch daily with meals. metFORMIN 2019-0 Yes [id number] 1000mg Take 1 [facility] 1,000 mg 4-03 [id number] tablet by it[facility] of tablet 00:00: mouth (two) Medical times Branch daily with meals. metFORMIN 2019-0 Yes [id number] 1000mg Take 1 [facility] 1,000 mg 4-03 [id number] tablet by ity of tablet 00:00: mouth (two) Medical times Branch daily with meals. metFORMIN 2019-0 Yes [id number] 1000mg Take 1 [facility] 1,000 mg 4-03 [id number] tablet by ity of tablet 00:00: mouth (two) Medical times Branch daily with meals. metFORMIN 2019-0 Yes [id number] 1000mg Take 1 [facility] 1,000 mg 4-03 [id number] tablet by ity of tablet 00:00: mouth (two) Medical times Branch daily with meals. metFORMIN 2019-0 Yes [id number] 1000mg Take 1 [facility] 1,000 mg 4-03 [id number] tablet by it[facility] of tablet 00:00: mouth (two) Medical times Branch daily with meals. metFORMIN 2019-0 Yes [id number] 1000mg Take 1 [facility] 1,000 mg 4-03 [id number] tablet by ity of tablet 00:00: mouth (two) Medical times Branch daily with meals. metFORMIN 2019-0 Yes [id number] 1000mg Take 1 [facility] 1,000 mg 4-03 [id number] tablet by ity of tablet 00:00: mouth (two) Medical times Branch daily with meals. metFORMIN 2019-0 Yes [id number] 1000mg Take 1 [facility] 1,000 mg 4-03 [id number] tablet by ity of tablet 00:00: mouth (two) Medical times Branch daily with meals. metFORMIN 2019-0 Yes [id number] 1000mg Take 1 [facility] 1,000 mg 4-03 [id number] tablet by [facility]y of tablet 00:00: mouth (two) Medical times Branch daily with meals. metFORMIN 2019-0 Yes [id number] 1000mg Take 1 [facility] 1,000 mg 4-03 [id number] tablet by it[facility] of tablet 00:00: mouth (two) Medical times Branch daily with meals. metFORMIN 2019-0 Yes [id number] 1000mg Take 1 [facility] 1,000 mg 4-03 [id number] tablet by [facility] of tablet 00:00: mouth () Medical times Branch daily with meals. metFORMIN 2019-0 Yes [id number] 1000mg Take 1 [facility] 1,000 mg 4-03 [id number] tablet by ity of tablet 00:00: mouth (two) Medical times Branch daily with meals. metFORMIN 2019-0 Yes [id number] 1000mg Take 1 [facility] 1,000 mg 4-03 [id number] tablet by ity of tablet 00:00: mouth (two) Medical times Branch daily with meals. metFORMIN 2019-0 Yes [id number] 1000mg Take 1 [facility] 1,000 mg 4-03 [id number] tablet by ity of tablet 00:00: mouth (two) Medical times Branch daily with meals. metFORMIN 2019-0 Yes [id number] 1000mg Take 1 [facility] 1,000 mg 4-03 [id number] tablet by [facility]y of tablet 00:00: mouth (two) Medical times Branch daily with meals. metFORMIN 2019-0 Yes [id number] 1000mg Take 1 [facility] 1,000 mg 4-03 [id number] tablet by ity of tablet 00:00: mouth 2 (two) Medical times Branch daily with meals. metFORMIN 2019-0 Yes [id number] 1000mg Take 1 [facility] 1,000 mg 4-03 [id number] tablet by ity of tablet 00:00: mouth 2 (two) Medical times Branch daily with meals. metFORMIN 2019-0 Yes [id number] 1000mg Take 1 [facility] 1,000 mg 4-03 [id number] tablet by ity of tablet 00:00: mouth 2 (two) Medical times Branch daily with meals. metFORMIN 2019-0 Yes [id number] 1000mg Take 1 [facility] 1,000 mg 4-03 [id number] tablet by ity of tablet 00:00: mouth (two) Medical times Branch daily with meals. metFORMIN 2019-0 Yes [id number] 1000mg Take 1 [facility] 1,000 mg 4-03 [id number] tablet by ity of tablet 00:00: mouth (two) Medical times Branch daily with meals. metFORMIN 2019-0 Yes [id number] 1000mg Take 1 [facility] 1,000 mg 4-03 [id number] tablet by ity of tablet 00:00: mouth (two) Medical times Branch daily with meals. metFORMIN 2019-0 Yes [id number] 1000mg Take 1 [facility] 1,000 mg 4-03 [id number] tablet by ity of tablet 00:00: mouth 2 (two) Medical times Branch daily with meals. Immunizations Ordered Filled Immunization Date Status Comments [facility] e Immunization Name Name Td 2018-06-29 Completed [facility] of 00:00: [facility] Td 2018-06-29 Completed University of :00: [facility] Td 2018-06-29 Completed [facility] of 00:00: [facility] Td 2018-06-29 Completed [facility] of 00:00: [facility] Td 2018-06-29 Completed University of 00[facility]00: [facility] Td 2018-06-29 Completed University of 00:00: [facility] Td 2018-06-29 Completed University of 00:00: [facility] Td 2018-06-29 Completed University of 00:00:00 [facility] Td 2018-06-29 Completed [facility] of 00:00: [facility] Td 2018-06-29 Completed University of 00:00:00 [place] [...] Branch Td 2018-06-29 Completed [facility] 00:00:00 [place] [facility] Td 2018-06-29 Completed [facility] 00:00:00 [place] [facility] Td 2018-06-29 Completed [facility] 00:00:00 [place] [facility] Td 2018-06-29 Completed [facility] 00:00:00 [place] [facility] Td 2018-06-29 Completed [facility] 00:00:00 [place] [facility] Td 2018-06-29 Completed [facility] 00:00:00 [place] [facility] Td 2018-06-29 Completed [facility] 00:00:00 [place] [facility] Td 2018-06-29 Completed [facility] 00:00:00 [place] [facility] Td 2018-06-29 Completed [facility] 00:00:00 [place] [facility] Td 2018-06-29 Completed [facility] 00:00:00 [place] [facility] Td 2018-06-29 Completed [facility] 00:00:00 [place] [facility] Td 2018-06-29 Completed [facility] 00:00:00 [place] [facility] Td 2018-06-29 Completed [facility] 00:00:00 [place] [facility] Td 2018-06-29 Completed [facility] 00:00:00 [place] [facility] Td 2018-06-29 Completed [facility] 00:00:00 [place] [facility] Td 2018-06-29 Completed [facility] 00:00:00 [place] [facility] Td 2018-06-29 Completed [facility] 00:00:00 [place] [facility] Td 2018-06-29 Completed [facility] 00:00:00 [place] [facility] Td 2018-06-29 Completed [facility] 00:00:00 [place] [facility] Td 2018-06-29 Completed [facility] 00:00:00 [place] [facility] Td 2018-06-29 Completed [facility] 00:00:00 [place] [facility] Td 2018-06-29 Completed [facility] 00:00:00 [place] [facility] Td 2018-06-29 Completed [facility] of 00:00:00 [facility] Vital Signs Vital Name Observation Time Observation Value Comments Source Systolic blood 2022-06-11 15:06:00 159 mm[Hg] Univer sity of pressure [facility] Diastolic blood 2022-06-11 15:06:00 69 mm[Hg] Unive rsity of pressure [facility] Heart rate 2022-06-11 15:06:00 82 /min Universi ty of [facility] Body temperature 2022-06-11 15:06:00 36.56 [place] Univ ersity of [facility] Body height 2022-06-11 15:06:00 165.1 cm [facility] [place] [facility] Body weight 2022-06-11 15:06:00 72.122 kg [facility] [place] [facility] BMI 2022-06-11 15:06:00 26.46 kg/m2 [facility] [place] [facility] Systolic blood 2022-06-07 16:21:22 139 mm[Hg] Univer [facility]ity of [facility] Diastolic blood 2022-06-07 16:21:22 49 mm[Hg] Unive rsity of [facility] Heart rate 2022-06-07 16:21:22 76 /min [facility] Respiratory rate 2022-06-07 16:21:22 18 /min Univ ersity of [facility] Oxygen saturation in 2022-06-07 16:21:22 98 /min University of Arterial blood by [facility] Pulse oximetry Branch Body temperature 2022-06-07 13:14:36 37.17 Olimpia [facility] ers[facility] Body weight 2022-06-07 08:24:00 72.122 kg [facility] BMI 2022-06-07 08:24:00 27.29 kg/m2 [facility] Body temperature 2022-05-14 19:59:00 36.39 Olimpia [facility] ers[facility] Body height 2022-05-14 19:59:00 162.6 cm [facility] Body weight 2022-05-14 19:59:00 72.576 kg [facility] BMI 2022-05-14 19:59:00 27.46 kg/m2 [facility] Body temperature 2022-04-29 15:39:00 36.06 Olimpia [facility] Body weight 2022-04-29 15:39:00 72.576 kg [facility] BMI 2022-04-29 15:39:00 33.44 kg/m2 [facility] Systolic blood 2022-04-23 15:44:00 132 mm[Hg] Univer sity of pressure [facility] Diastolic blood 2022-04-23 15:44:00 88 mm[Hg] [facility] Heart rate 2022-04-23 15:44:00 65 /min [facility] Body temperature 2022-04-23 15:44:00 36.33 Olimpia [facility] Body height 2022-04-23 15:44:00 147.3 cm [facility] Body weight 2022-04-23 15:44:00 68.947 kg [facility] BMI 2022-04-23 15:44:00 31.77 kg/m2 [facility] Systolic blood 2022-04-07 22:32:00 166 mm[Hg] [facility] Diastolic blood 2022-04-07 22:32:00 64 mm[Hg] [facility] Heart rate 2022-04-07 20:56:00 65 /min [facility] Body temperature 2022-04-07 20:56:00 36.44 Olimpia [facility] Respiratory rate 2022-04-07 20:56:00 18 /min [facility] Oxygen saturation in 2022-04-07 20:56:00 98 /min [facility] Arterial blood by [place] [employer] Pulse oximetry Branch Body weight 2022-04-07 01:51:00 68.992 kg per bed [facility] BMI 2022-04-07 01:51:00 31.79 kg/m2 [facility] Systolic blood 2022-04-02 17:28:00 182 mm[Hg] [facility] Diastolic blood 2022-04-02 17:28:00 57 mm[Hg] [facility] Heart rate 2022-04-02 17:28:00 75 /min [facility] Body temperature 2022-04-02 17:28:00 36.56 Olimpia [facility] Respiratory rate 2022-04-02 17:28:00 18 /min [facility] Oxygen saturation in 2022-04-02 17:28:00 95 /min [facility] of Arterial blood by [employer] Pulse oximetry Branch Body weight 2022-03-27 19:26:00 72.122 kg [facility] BMI 2022-03-27 19:26:00 33.23 kg/m2 [facility] Systolic blood 2022-03-28 17:27:00 171 mm[Hg] [facility] Diastolic blood 2022-03-28 17:27:00 93 mm[Hg] [facility] Heart rate 2022-03-28 17:27:00 90 /min [facility] Body temperature 2022-03-28 17:27:00 36.83 Olimpia [facility] Respiratory rate 2022-03-28 17:27:00 18 /min [facility] Oxygen saturation in 2022-03-28 17:27:00 94 /min [facility] Arterial blood by [facility] Pulse oximetry Branch Body weight 2022-03-27 19:26:00 72.122 kg [facility] BMI 2022-03-27 19:26:00 33.23 kg/m2 [facility] Systolic blood 2022-03-13 22:23:00 176 mm[Hg] [facility] Diastolic blood 2022-03-13 22:23:00 55 mm[Hg] [facility] Heart rate 2022-03-13 22:23:00 83 /min [facility] Body temperature 2022-03-13 22:23:00 36.56 Olimpia [facility] Respiratory rate 2022-03-13 22:23:00 16 /min [facility] Oxygen saturation in 2022-03-13 22:23:00 96 /min [facility] Arterial blood by [facility] Pulse oximetry Branch Body weight 2022-03-04 23:03:00 71.215 kg [facility] BMI 2022-03-04 23:03:00 32.81 kg/m2 [facility] Systolic blood 2022-03-13 15:13:00 131 mm[Hg] [facility] Diastolic blood 2022-03-13 15:13:00 50 mm[Hg] [facility] rs[facility] Heart rate 2022-03-13 15:13:00 82 /min [facility] Body temperature 2022-03-13 15:13:00 36.61 Olimpia [facility] Respiratory rate 2022-03-13 15:13:00 18 /min [facility] Oxygen saturation in 2022-03-13 15:13:00 98 /min [facility] of Arterial blood by [facility] shade Pulse oximetry Branch Body weight 2022-03-04 23:03:00 71.215 kg [facility] BMI 2022-03-04 23:03:00 32.81 kg/m2 [facility] Systolic blood 2022-03-07 15:00:00 157 mm[Hg] [facility] Diastolic blood 2022-03-07 15:00:00 56 mm[Hg] [facility] rs[facility] Heart rate 2022-03-07 15:00:00 77 /min [facility] Body temperature 2022-03-07 15:00:00 36 Olimpia [facility] Respiratory rate 2022-03-07 15:00:00 18 /min [facility] Oxygen saturation in 2022-03-07 15:00:00 100 /min [facility] Arterial blood by [facility] Pulse oximetry Branch Body weight 2022-03-04 23:03:00 71.215 kg [facility] BMI 2022-03-04 23:03:00 32.81 kg/m2 [facility] Systolic blood 2022-02-12 16:11:00 98 mm[Hg] [facility] Diastolic blood 2022-02-12 16:11:00 37 mm[Hg] [facility] of [facility] Heart rate 2022-02-12 16:11:00 105 /min [facility] Body temperature 2022-02-12 16:11:00 35.72 Olimpia [facility] Body height 2022-02-12 16:11:00 147.3 cm [facility] Body weight 2022-02-12 16:11:00 72.757 kg [facility] BMI 2022-02-12 16:11:00 33.52 kg/m2 [facility] Systolic blood 2022-02-06 01:56:00 159 mm[Hg] [facility] Diastolic blood 2022-02-06 01:56:00 74 mm[Hg] [facility] rs[facility] of [facility] Heart rate 2022-02-06 01:56:00 91 /min [facility] Respiratory rate 2022-02-06 01:56:00 16 /min [facility] Oxygen saturation in 2022-02-06 01:56:00 99 /min [facility] Arterial blood by [place] [employer] Pulse oximetry Branch Body temperature 2022-02-05 22:19:00 37 Olimpia [facility] Body weight 2022-02-05 22:19:00 73.936 kg [facility] BMI 2022-02-05 22:19:00 29.81 kg/m2 [facility] Systolic blood 2022-01-14 16:43:00 172 mm[Hg] [facility] pressure [facility] Diastolic blood 2022-01-14 16:43:00 90 mm[Hg] [facility]ive rs[facility] of pressure [facility] Heart rate 2022-01-14 16:43:00 99 /min [facility] Body temperature 2022-01-14 16:43:00 36.61 Olimpia [facility] Respiratory rate 2022-01-14 16:43:00 18 /min [facility] Body height 2022-01-14 16:43:00 157.5 cm [facility] Body weight 2022-01-14 16:43:00 76.204 kg [facility] BMI 2022-01-14 16:43:00 30.73 kg/m2 [facility] Oxygen saturation in 2022-01-14 16:43:00 98 /min [facility] Arterial blood by [place] [employer] Pulse oxim[facility] Branch Systolic blood 2021-12-25 16:51:12 136 mm[Hg] [facility] of [facility] Diastolic blood 2021-12-25 16:51:12 105 mm[Hg] [facility]ive rsity of pressure [facility] Heart rate 2021-12-25 16:51:12 96 /min [facility] Oxygen saturation in 2021-12-25 16:51:12 98 /min University Arterial blood by [facility] Pulse oximetry Branch Body temperature 2021-12-25 14:07:00 37.56 Olimpia [facility] ers[facility] of [facility] Respiratory rate 2021-12-25 14:07:00 22 /min [facility] ersity of [facility] Body weight 2021-12-25 14:07:00 76.204 kg [facility] BMI 2021-12-25 14:07:00 30.73 kg/m2 [facility] Systolic blood 2020-07-17 14:33:00 162 mm[Hg] Univer [facility]ity of [facility] Diastolic blood 2020-07-17 14:33:00 64 mm[Hg] Unive rsity of pressure [facility] Heart rate 2020-07-17 14:33:00 79 /min [facility] Body temperature 2020-07-17 14:30:00 36.72 Olimpia [facility] Respiratory rate 2020-07-17 14:30:00 20 /min [facility] Body height 2020-07-17 14:30:00 157.5 cm [facility] Body weight 2020-07-17 14:30:00 68.947 kg [facility] BMI 2020-07-17 14:30:00 27.80 kg/m2 [facility] Systolic blood 2020-06-15 13:45:00 186 mm[Hg] [facility] Diastolic blood 2020-06-15 13:45:00 70 mm[Hg] Unive rsity of [facility] Heart rate 2020-06-15 13:45:00 86 /min [facility] Body temperature 2020-06-15 13:45:00 36.56 Olimpia [facility] Respiratory rate 2020-06-15 13:45:00 18 /min [facility] ers[facility] of [facility] Body height 2020-06-15 13:45:00 152.4 cm [facility] Body weight 2020-06-15 13:45:00 70.126 kg [facility] BMI 2020-06-15 13:45:00 30.19 kg/m2 [facility] Oxygen saturation in 2020-06-15 13:45:00 99 /min [facility] Arterial blood by [facility] Pulse oximetry Branch Systolic blood 2020-03-13 16:50:00 154 mm[Hg] [facility] Diastolic blood 2020-03-13 16:50:00 78 mm[Hg] [facility]ive rsity of [facility] Heart rate 2020-03-13 16:49:00 81 /min [facility] Body temperature 2020-03-13 16:49:00 36.39 Olimpia [facility] Respiratory rate 2020-03-13 16:49:00 18 /min [facility] Body height 2020-03-13 16:49:00 152.4 cm [facility] Body weight 2020-03-13 16:49:00 66.633 kg [facility] BMI 2020-03-13 16:49:00 28.69 kg/m2 [facility] Systolic blood 2020-02-10 15:29:00 195 mm[Hg] [facility] Diastolic blood 2020-02-10 15:29:00 89 mm[Hg] [facility]ive rs[facility] Heart rate 2020-02-10 15:29:00 84 /min [facility] Body temperature 2020-02-10 15:27:00 36.83 Olimpia [facility] Respiratory rate 2020-02-10 15:27:00 20 /min [facility] Body height 2020-02-10 15:27:00 152.4 cm [facility] Body weight 2020-02-10 15:27:00 66.044 kg [facility] BMI 2020-02-10 15:27:00 28.44 kg/m2 [facility] Oxygen saturation in 2020-02-10 15:27:00 98 /min [facility] Arterial blood by [facility] Pulse oximetry Branch Systolic blood 2020-01-13 13:57:00 154 mm[Hg] Univer sity of pressure [facility] Diastolic blood 2020-01-13 13:57:00 78 mm[Hg] Unive rsity of pressure [facility] Heart rate 2020-01-13 13:55:00 80 /min [facility] Body temperature 2020-01-13 13:55:00 36.44 Olimpia [facility] Respiratory rate 2020-01-13 13:55:00 18 /min [facility] Body weight 2020-01-13 13:55:00 65.772 kg [facility] BMI 2020-01-13 13:55:00 28.32 kg/m2 [facility] Systolic blood 2019-12-20 20:50:00 132 mm[Hg] Univer sity of pressure [facility] Diastolic blood 2019-12-20 20:50:00 75 mm[Hg] Unive rsity of pressure [facility] Heart rate 2019-12-20 20:50:00 77 /min [facility] Body temperature 2019-12-20 20:50:00 36.67 Olimpia [facility] Respiratory rate 2019-12-20 20:50:00 18 /min [facility] Body weight 2019-12-20 20:50:00 66.225 kg [facility] BMI 2019-12-20 20:50:00 28.51 kg/m2 [facility] Oxygen saturation in 2019-12-20 20:50:00 97 /min University Arterial blood by [facility] Pulse oximetry Branch Systolic blood 2019-12-20 15:20:00 190 mm[Hg] Univer sity of pressure [facility] Diastolic blood 2019-12-20 15:20:00 88 mm[Hg] Unive rsity of pressure [facility] Heart rate 2019-12-20 15:20:00 80 /min [facility] Body temperature 2019-12-20 15:04:00 36.5 Olimpia [facility] Respiratory rate 2019-12-20 15:04:00 20 /min [facility] Body height 2019-12-20 15:04:00 152.4 cm [facility] Body weight 2019-12-20 15:04:00 66.225 kg [facility] BMI 2019-12-20 15:04:00 28.51 kg/m2 [facility] Oxygen saturation in 2019-12-20 15:04:00 98 /min [facility] Arterial blood by [facility] Pulse oximetry Branch Systolic blood 2019-12-07 22:00:00 144 mm[Hg] Univer sity of pressure [facility] Diastolic blood 2019-12-07 22:00:00 88 mm[Hg] Unive rsity of pressure [facility] Heart rate 2019-12-07 22:00:00 78 /min [facility] Body temperature 2019-12-07 22:00:00 36.33 Olimpia [facility] Respiratory rate 2019-12-07 22:00:00 18 /min [facility] 2019-12-07 22:00:00 98 /min [facility] Arterial blood by [facility] Pulse oximetry Branch Body weight 2019-12-01 08:35:[address] [facility] BMI 2019-12-01 08:35:00 24.40 kg/m2 [facility] BP Systolic 2022-03-28 20:37:00 129 mm[Hg] BP [...] 16:55:00 178 mm[Hg] Univer [facility]ity of pressure [facility] Diastolic blood 2022-03-11 16:55:00 75 mm[Hg] Unive rsity of [facility] Heart rate 2022-03-11 16:55:00 70 /min [facility] Body temperature 2022-03-11 16:55:00 36.61 Olimpia [facility] Respiratory rate 2022-03-11 16:55:00 18 /min [facility] [place] Oxygen saturation in 2022-03-11 16:55:00 94 /min [facility] Arterial blood by [facility] Pulse oximetry Branch Systolic blood 2022-03-10 16:55:00 107 mm[Hg] Univer sity of [facility] Diastolic blood 2022-03-10 16:55:00 40 mm[Hg] [facility]ive rsity of [facility] Heart rate 2022-03-10 16:55:00 71 /min [facility] [place] Body temperature 2022-03-10 16:55:00 37.67 Olimpia [facility] Respiratory rate 2022-03-10 16:55:00 18 /min [facility] Oxygen saturation in 2022-03-10 16:55:00 96 /min [facility] Arterial blood by [facility] Pulse oximetry Branch Body weight 2022-03-04 23:03:00 71.215 kg [facility] BMI 2022-03-04 23:03:00 32.81 kg/m2 [facility] [place] Body height 2022-02-12 16:11:00 147.3 cm [facility] BP Systolic 2022-02-04 14:36:00 139 [...] Date / Time Performing Clinician Source Performed C-REACTIVE PROTEIN 2022-06-07 12:18:00 Shahid [facility] COMP. METABOLIC PANEL 2022-06-07 12:18:00 Shahid [facility] ([id number]) [facility] [place] SEDIMENTATION RATE 2022-06-07 12:18:00 Shahid [facility] CBC WITH DIFF 2022-06-07 12:18:00 Shahid [facility] PROTHROMBIN TIME / INR 2022-06-07 12:18:00 Shahid Jillian [facility] ACTIVATED PARTIAL 2022-06-07 12:18:00 Shahid [facility] THRMPLAS [facility] HB ABO GROUPING 2022-06-07 12:18:00 Shahid [facility] XR HIPS 2 VW LEFT 2022-04-29 15:34:04 Rashid Braun [facility] ASSIGNMENT OF BENEFITS 2022-04-29 15:11:29 Doctor Unassigned, Un [facility] POCT GLUCOSE (AUTOMATED) 2022-04-07 22:31:00 Parish Grimes [facility] POCT GLUCOSE (AUTOMATED) 2022-04-07 17:32:00 Parish Grimes [facility] POCT GLUCOSE (AUTOMATED) 2022-04-07 14:44:00 Parish Grimes [facility] MAGNESIUM 2022-04-07 10:46:00 Marty [facility] BASIC METABOLIC PANEL 2022-04-07 10:46:00 Mikal Ferguson [facility] (NA, K, CL, CO2, GLUCOSE, Medica l Branch BUN, CREATININE, [place]) CBC WITH DIFF 2022-04-07 10:46[facility]00 [facility] 2022-04-07 03:40:00 Parish Grimes [facility] TOTAL IRON BINDING 2022-04-07 01:22:00 Magen [facility] POCT GLUCOSE (AUTOMATED) 2022-04-06 22:54:00 Parish Grimes [facility] POCT GLUCOSE (AUTOMATED) 2022-04-06 18:46:00 Parish Grimes [facility] POCT GLUCOSE (AUTOMATED) 2022-04-06 16:07:00 Parish Grimes [facility] MAGNESIUM 2022-04-06 11:25:00 Magen [facility] FERRITIN SERUM 2022-04-06 11:25[facility]00 [facility]:25[facility]00 [facility] BASIC METABOLIC PANEL 2022-04-06 11:25:00 Magen [facility] (NA, K, CL, CO2, GLUCOSE, Medica l Branch BUN, CREATININE, CA) CBC WITHOUT DIFF 2022-04-06 11:25[facility] 2022-04-06 04:47:00 Parish Grimes [facility] POCT GLUCOSE (AUTOMATED) 2022-04-05 22:57:00 Parish Grimes [facility] XR HIPS 2 VW LEFT 2022-04-05 19:37:00 Jillian Key [facility] POCT GLUCOSE (AUTOMATED) 2022-04-05 19:23:00 Parish Grimes [facility] POCT GLUCOSE (AUTOMATED) 2022-04-05 18:33:00 Parish Grimes [facility] POCT GLUCOSE (AUTOMATED) 2022-04-05 15:41:00 Parish Griems [facility] CBC WITH DIFF 2022-04-05 09:40:00 Bimal Crum [facility] POCT GLUCOSE (AUTOMATED) 2022-04-05 03:33:00 Parish Grimes [facility] POCT GLUCOSE (AUTOMATED) 2022-04-04 22:19:00 Parish Grimes [facility] POCT GLUCOSE (AUTOMATED) 2022-04-04 17:34:00 Parish Grimes [facility] POCT GLUCOSE (AUTOMATED) 2022-04-04 14:47:00 Parish Grimes [facility] CBC WITH DIFF 2022-04-04 11:57:00 Bimal Crum [facility] POCT GLUCOSE (AUTOMATED) 2022-04-04 03:54:00 Parish Grimes [facility] POCT GLUCOSE (AUTOMATED) 2022-04-03 23:10:00 Parish Grimes [facility] POCT GLUCOSE (AUTOMATED) 2022-04-03 17:26:00 Parish Grimes [facility] POCT GLUCOSE (AUTOMATED) 2022-04-03 17:26:00 Parish Grimes [facility] POCT GLUCOSE (AUTOMATED) 2022-04-03 14:49:00 Parish Grimes [facility] POCT GLUCOSE (AUTOMATED) 2022-04-03 14:49:00 Parish Grimes [facility] BASIC METABOLIC PANEL 2022-04-03 12:07:00 Bimal Crum [facility] (NA, K, CL, CO2, GLUCOSE, [facility] BUN, CREATININE, CA) BASIC METABOLIC PANEL 2022-04-03 12:07:00 Bimal Crum [facility] (NA, K, CL, CO2, GLUCOSE, [facility] BUN, CREATININE, CA) CBC WITH DIFF 2022-04-03 12:06:00 Bimal Crum [facility] CBC WITH DIFF 2022-04-03 12:06:00 Bimal Crum [facility] POCT GLUCOSE (AUTOMATED) 2022-04-03 03:33:00 Parish Grimes [facility] POCT GLUCOSE (AUTOMATED) 2022-04-03 03:33:00 Parish Grimes [facility] POCT GLUCOSE (AUTOMATED) 2022-04-03 00:27:00 Parish Grimes [facility] POCT GLUCOSE (AUTOMATED) 2022-04-03 00:27:00 Parish Grimes [facility] WOUND VAC EXCHANGE 2022-04-02 20:56:00 [facility]id [facility] WOUND VAC EXCHANGE 2022-04-02 20:56:00 [facility]id [facility] POCT GLUCOSE (AUTOMATED) 2022-04-02 18:06:00 Parish Grimes [facility] POCT GLUCOSE (AUTOMATED) 2022-04-02 18:06:00 Parish Grimes [facility] POCT GLUCOSE (AUTOMATED) 2022-04-02 14:55:00 Parish Grimes [facility] POCT GLUCOSE (AUTOMATED) 2022-04-02 14:55:00 Parish Grimes [facility] MAGNESIUM 2022-04-02 09:41:00 Ferguson [facility] BASIC METABOLIC PANEL 2022-04-02 09:41:00 Ferguson, [facility] (NA, K, CL, CO2, GLUCOSE, Medica l Branch BUN, CREATININE, CA) CBC WITH DIFF 2022-04-02 09:41:00 Ferguson, [facility] MAGNESIUM 2022-04-02 09:41:00 Ferguson [facility] BASIC METABOLIC PANEL 2022-04-02 09:41:00 Ferguson, [facility] (NA, K, CL, CO2, GLUCOSE, Medica l Branch BUN, CREATININE, CA) CBC WITH DIFF 2022-04-02 09:41:00 Ferguson, [facility] POCT GLUCOSE (AUTOMATED) 2022-04-02 02:43:00 Parish Grimes [facility] POCT GLUCOSE (AUTOMATED) 2022-04-02 02:43:00 Parish Grimes [facility] POCT GLUCOSE (AUTOMATED) 2022-04-01 22:45:00 Parish Grimes [facility] POCT GLUCOSE (AUTOMATED) 2022-04-01 22:45:00 Parish Grimes [facility] POCT GLUCOSE (AUTOMATED) 2022-04-01 17:37:00 Parish Grimes [facility] POCT GLUCOSE (AUTOMATED) 2022-04-01 17:37:00 Parish Grimes [facility] POCT GLUCOSE (AUTOMATED) 2022-04-01 14:00:00 Parish Grimes [facility] POCT GLUCOSE (AUTOMATED) 2022-04-01 14:00:00 Parish Grimes [facility] BASIC METABOLIC PANEL 2022-04-01 12:03:00 Bimal Crum [facility] (NA, K, CL, CO2, GLUCOSE, [facility] BUN, CREATININE, CA) BASIC METABOLIC PANEL 2022-04-01 12:03:00 Bimal Crum [facility] (NA, K, CL, CO2, GLUCOSE, [facility] BUN, CREATININE, CA) CBC WITH DIFF 2022-04-01 12:02:00 Radames [facility] CBC WITH DIFF 2022-04-01 12:02:00 Radames [facility] HB ECG ROUTINE & RHYTHM 2022-04-01 06:21:14 Ewelina Caraballo [facility] HB ECG ROUTINE & RHYTHM 2022-04-01 06:21:14 Ewelina Caraballo [facility] POCT GLUCOSE (AUTOMATED) 2022-04-01 04:02:00 Parish Grimes [facility] POCT GLUCOSE (AUTOMATED) 2022-04-01 04:02:00 Parish Grimes [facility] POCT GLUCOSE (AUTOMATED) 2022-04-01 00:25:00 Parish Grimes [facility] POCT GLUCOSE (AUTOMATED) 2022-04-01 00:25:00 Parish Grimes [facility] MR HAND LEFT W WO 2022-03-31 23:37:51 Bimal Crum [facility] MR HAND LEFT W WO 2022-03-31 23:37:51 Bimal Crum [facility] POCT GLUCOSE (AUTOMATED) 2022-03-31 19:24:00 Parish Grimes [facility] POCT GLUCOSE (AUTOMATED) 2022-03-31 19:24:00 Parish Grimes [facility] POCT GLUCOSE (AUTOMATED) 2022-03-31 19:24:00 Parish Grimes [facility] POCT GLUCOSE (AUTOMATED) 2022-03-31 15:14:00 Parish Grimes [facility] POCT GLUCOSE (AUTOMATED) 2022-03-31 15:14:00 Parish Grimes [facility] POCT GLUCOSE (AUTOMATED) 2022-03-31 15:14:00 Parish Grimes [facility] VANCOMYCIN TROUGH 2022-03-31 07:49:00 Dostal, [facility] CBC WITHOUT DIFF 2022-03-31 07:49:00 Radames [facility] VANCOMYCIN TROUGH 2022-03-31 07:49:00 Dostal, [facility] CBC WITHOUT DIFF 2022-03-31 07:49:00 Radames [facility] VANCOMYCIN TROUGH 2022-03-31 07:49:00 Dostal, [facility] CBC WITHOUT DIFF 2022-03-31 07:49:00 [facility] (AUTOMATED) 2022-03-31 02:30:00 Parish Grimes [facility] POCT GLUCOSE (AUTOMATED) 2022-03-31 02:30:00 Parish Grimes [facility] POCT GLUCOSE (AUTOMATED) 2022-03-31 02:30:00 Parish Grimes [facility] POCT GLUCOSE (AUTOMATED) 2022-03-30 23:59:00 Parish Grimes [facility] POCT GLUCOSE (AUTOMATED) 2022-03-30 23:59:00 Parish Grimes [facility] POCT GLUCOSE (AUTOMATED) 2022-03-30 23:59:00 Parish Grimes [facility] CBC WITHOUT DIFF 2022-03-30 21:03:00 Bimal Crum [facility] CBC WITHOUT DIFF 2022-03-30 21:03:00 Radames [facility] CBC WITHOUT DIFF 2022-03-30 21:03:00 [facility] PO[facility] GLUCOSE (AUTOMATED) 2022-03-30 18:30:00 Parish Grimes [facility] POCT GLUCOSE (AUTOMATED) 2022-03-30 18:30:00 Parish Grimes [facility] POCT GLUCOSE (AUTOMATED) 2022-03-30 18:30:00 Parish Grimes [facility] POCT GLUCOSE (AUTOMATED) 2022-03-30 14:52:00 Parish Grimes [facility] POCT GLUCOSE (AUTOMATED) 2022-03-30 14:52:00 Parish Grimes [facility] POCT GLUCOSE (AUTOMATED) 2022-03-30 14:52:00 Parish Grimes [facility] BASIC METABOLIC PANEL 2022-03-30 10:04:00 [facility] (NA, K, CL, CO2, GLUCOSE, [facility] BUN, CREATININE, CA) VANCOMYCIN RANDOM LEVEL 2022-03-30 10:04:00 Bimal Crum [facility] CBC WITH DIFF 2022-03-30 10:04:00 Bimal Crum [facility] BASIC METABOLIC PANEL 2022-03-30 10:04:00 [facility] (NA, K, CL, CO2, GLUCOSE, [facility] BUN, CREATININE, CA) VANCOMYCIN RANDOM LEVEL 2022-03-30 10:04:00 Bimal Crum [facility] CBC WITH DIFF 2022-03-30 10:04:00 Bimal Crum [facility] BASIC METABOLIC PANEL 2022-03-30 10:04:00 [facility]rum [facility] (NA, K, CL, CO2, GLUCOSE, [facility] BUN, CREATININE, CA) VANCOMYCIN RANDOM LEVEL 2022-03-30 10:04:00 Bimal Crum [facility] CBC WITH DIFF 2022-03-30 10:04:00 Bimal Crum [facility] POCT GLUCOSE (AUTOMATED) 2022-03-30 03:13:00 Parish Grimes [facility] POCT GLUCOSE (AUTOMATED) 2022-03-30 03:13:00 Parish Grimes [facility] POCT GLUCOSE (AUTOMATED) 2022-03-30 03:13:00 Parish Grimes [facility] POCT GLUCOSE (AUTOMATED) 2022-03-29 23:10:00 Parish Grimes [facility] POCT GLUCOSE (AUTOMATED) 2022-03-29 23:10:00 Parish Grimes [facility] POCT GLUCOSE (AUTOMATED) 2022-03-29 23:10:00 Parish Grimes [facility] POCT GLUCOSE (AUTOMATED) 2022-03-29 18:48:00 Parish Grimes [facility] POCT GLUCOSE (AUTOMATED) 2022-03-29 18:48:00 Parish rGimes [facility] POCT GLUCOSE (AUTOMATED) 2022-03-29 18:48:00 Parish Grimes [facility] POCT GLUCOSE (AUTOMATED) 2022-03-29 15:20:00 Parish Grimes [facility] POCT GLUCOSE (AUTOMATED) 2022-03-29 15:20:00 Parish Grimes [facility] POCT GLUCOSE (AUTOMATED) 2022-03-29 15:20:00 Parish Grimes [facility] MAGNESIUM 2022-03-29 11:37:00 Marty [facility] BASIC METABOLIC PANEL 2022-03-29 11:37:00 Mikal Ferguson [facility] (NA, K, CL, CO2, GLUCOSE, Medica l Branch BUN, CREATININE, CA) CBC WITH DIFF 2022-03-29 11:37:00 Marty [facility] MAGNESIUM 2022-03-29 11:37:00 Marty [facility] BASIC METABOLIC PANEL 2022-03-29 11:37:00 Marty [facility] (NA, K, CL, CO2, GLUCOSE, Medica l Branch BUN, CREATININE, CA) CBC WITH DIFF 2022-03-29 11:37:00 Marty [facility] MAGNESIUM 2022-03-29 11:37:00 Ferguson, [facility] BASIC METABOLIC PANEL 2022-03-29 11:37:00 Marty [facility] (NA, K, CL, CO2, GLUCOSE, Medica l Branch BUN, CREATININE, CA) CBC WITH DIFF 2022-03-29 11:37:00 [facility]UCOSE (AUTOMATED) 2022-03-29 02:09:00 Parish Grimes [facility] POCT GLUCOSE (AUTOMATED) 2022-03-29 02:09:00 Parish Grimes [facility] POCT GLUCOSE (AUTOMATED) 2022-03-29 02:09:00 Parish Grimes [facility] ASPIRATE OR ABSCESS 2022-03-29 00:44:00 BraunRashid [facility] CULTURE(AEROBIC/ANAEROBIC Medica l Branch ) AFB CULTURE 2022-03-29 00:44:00 Braun, Rashid [facility] FUNGUS (ROUTINE) CULTURE 2022-03-29 00:44:00 BraunRashid A [facility] ASPIRATE OR ABSCESS 2022-03-29 00:44:00 BraunRashid A [facility] CULTURE(AEROBIC/ANAEROBIC Medica l Branch ) AF[employer] CULTURE 2022-03-29 00:44:00 Braun, Rashid [facility] FUNGUS (ROUTINE) CULTURE 2022-03-29 00:44:00 Braun, Rashid A [facility] ASPIRATE OR ABSCESS 2022-03-29 00:44:00 BraunRashid A [facility] CULTURE(AEROBIC/ANAEROBIC Medica l Branch ) AFB CULTURE 2022-03-29 00:44:00 BraunRashid [facility] FUNGUS (ROUTINE) CULTURE 2022-03-29 00:44:00 Rashid Braun [facility] OR 2022-03-29 00:18:00 Rashid Braun [facility] (NON-REPORT[facility]) [facility] [place] TIME OR 2022-03-29 00:18:00 BraunRashid [facility] ([facility] [place] TIME OR 2022-03-29 00:18:00 Braun, Rashid [facility] ([facility]-RE[facility]) [facility] INTUBATION 2022-03-28 22:52:00 Dennis [facility] HIP ORIF 2022-03-28 22:26:00 BraunRashid [facility] WOUND VAC PLACEMENT 2022-03-28 22:26:00 Rashid Braun [facility] HIP ORIF 2022-03-28 22:26:00 BraunRashid [facility] WOUND VAC PLACEMENT 2022-03-28 22:26:00 BraunRashid [facility] NERVE BLOCK 2022-03-28 21:31:14 Daniel [facility] VANCOMYCIN TROUGH 2022-03-28 20:15:00 Radames [facility] VANCOMYCIN TROUGH 2022-03-28 20:15:00 Radames [facility] VANCOMYCIN TROUGH 2022-03-28 20:15:00 Bimal Crum [facility] POCT GLUCOSE (AUTOMATED) 2022-03-28 18:10:00 Parish rGimes [facility] POCT GLUCOSE (AUTOMATED) 2022-03-28 18:10:00 Parish Grimes [facility] POCT GLUCOSE (AUTOMATED) 2022-03-28 18:10:00 Parish Grimes [facility] POCT GLUCOSE (AUTOMATED) 2022-03-28 15:45:00 Parish Grimes [facility] POCT GLUCOSE (AUTOMATED) 2022-03-28 15:45:00 Parish Grimes [facility] POCT GLUCOSE (AUTOMATED) 2022-03-28 15:45:00 Parish Grimes [facility] HB ABO GROUPING 2022-03-28 12:33:00 Gary [facility] HB ABO GROUPING 2022-03-28 12:33:00 Gary [facility] HB ABO GROUPING 2022-03-28 12:33:00 Gary [facility] BASIC METABOLIC PANEL 2022-03-28 10:26:00 Bimal Crum [facility] (NA, K, CL, CO2, GLUCOSE, [facility] BUN, CREATININE, CA) CBC WITH DIFF 2022-03-28 10:26:00 [facility] VITAMIN D, 25-[place] 2022-03-28 10:26:00 Chadd Kolb [facility] BASIC METABOLIC PANEL 2022-03-28 10:26:00 Bimal Crum [facility] (NA, K, CL, CO2, GLUCOSE, [facility] BUN, CREATININE, CA) CBC WITH DIFF 2022-03-28 10:26:00 Bimal Crum [facility] VITAMIN D, 25-OH 2022-03-28 10:26:00 Chadd Kolb [facility] BASIC METABOLIC PANEL 2022-03-28 10:26:00 Bimal Crum [facility] (NA, K, CL, CO2, GLUCOSE, [facility] BUN, CREATININE, CA) CBC WITH DIFF 2022-03-28 10:26:00 [facility] VITAMIN D, 25-OH 2022-03-28 10:26:00 Chadd Kolb [facility] POCT GLUCOSE (AUTOMATED) 2022-03-28 05:49:00 Parish Grimes [facility] POCT GLUCOSE (AUTOMATED) 2022-03-28 05:49:00 Parish Grimes [facility] POCT GLUCOSE (AUTOMATED) 2022-03-28 05:49:00 Parish Grimes [facility] LACTIC ACID WHOLE BLOOD 2022-03-27 23:42:00 Jeromy Daigle [facility] LACTIC ACID WHOLE BLOOD 2022-03-27 23:42:00 [facility] WHOLE [facility]LOOD 2022-03-27 23:42:00 [facility] POCT GLUCOSE (AUTOMATED) 2022-03-27 23:36:00 Parish Grimes [facility] POCT GLUCOSE (AUTOMATED) 2022-03-27 23:36:00 Parish Grimes [facility] POCT GLUCOSE (AUTOMATED) 2022-03-27 23:36:00 Parish Grimes [facility] XR CHEST 1 VW 2022-03-27 23:30:00 Chadd Kolb [facility] XR CHEST 1 VW 2022-03-27 23:30:00 ErendiraetChadd gutiérrez [facility] XR CHEST 1 VW 2022-03-27 23:30:00 SketChadd gutiérrez [facility] XR FEMUR 2 VW LEFT 2022-03-27 21:04:00 Jeromy Daigle [facility] ty [facility] XR HAND 3+ VW LEFT 2022-03-27 21:04:00 Jeromy Daigle [facility]i ty [facility] XR HIPS 2 VW LEFT 2022-03-27 21:04:00 Jeromy Daigle [facility] XR FEMUR 2 VW LEFT 2022-03-27 21:04:00 Jeromy Daigle [facility] ty [facility] XR HAND 3+ VW LEFT 2022-03-27 21:04:00 Jeromy Daigle [facility] ty [facility] XR HIPS 2 VW LEFT 2022-03-27 21:04:00 Jeromy Daigle [facility] XR FEMUR 2 VW LEFT 2022-03-27 21:04:00 Jeromy Daigle Universi ty [facility] XR HAND 3+ VW LEFT 2022-03-27 21:04:00 Jeromy Daigle [facility] XR HIPS 2 VW LEFT 2022-03-27 21:04:00 Jeromy [facility]ig[facility] LACTIC ACID WHOLE BLOOD 2022-03-27 19:56:00 [facility] LACTIC ACID WHOLE BLOOD 2022-03-27 19:56:00 Jeromy [facility] LACTIC ACID WHOLE BLOOD 2022-03-27 19:56:00 Jeromy Daigle [facility] BLOOD CULTURE SCREEN 2022-03-27 19:55:00 Jeromy Daigle [facility] C-REACTIVE PROTEIN 2022-03-27 19:55:[address] [facility] COMP. METABOLIC PANEL 2022-03-27 19:55:00 Jeromy Daigle [facility] ([id number]) [facility] SEDIMENTATION RATE 2022-03-27 19:55:00 [facility] DIFF 2022-03-27 19:55:00 Jeromy Daigle [facility] PROTHROMBIN TIME / INR 2022-03-27 19:55:[address] [facility] ACTIVATED PARTIAL 2022-03-27 19:55:00 [facility] BLOOD CULTURE SCREEN 2022-03-27 19:55:00 Jeromy Daigle [facility] C-REACTIVE PROTEIN 2022-03-27 19:55:00 [facility]. METABOLIC PANEL 2022-03-27 19:55:00 Jeromy Daigle [facility] ([id number]) [facility] SEDIMENTATION RATE 2022-03-27 19:55:00 Jeromy Daigle [facility] CBC WITH DIFF 2022-03-27 19:55:00 Jeromy Daigle [facility] PROTHROMBIN TIME / INR 2022-03-27 19:55:[address] [facility] ACTIVATED PARTIAL 2022-03-27 19:55:00 Jeromy Daigle [facility] BLOOD CULTURE SCREEN 2022-03-27 19:55:00 Jeromy Daigle [facility] C-REACTIVE PROTEIN 2022-03-27 19:55:00 Jeromy Daigle [facility] COMP. METABOLIC PANEL 2022-03-27 19:55:00 Jeromy Daigle [facility] ([id number]) [facility] [place] SEDIMENTATION RATE 2022-03-27 19:55:00 Jeromy Daigle [facility] CBC WITH DIFF 2022-03-27 19:55:00 Jeromy Daigle [facility] PROTHROMBIN TIME / INR 2022-03-27 19:55:[address] [facility] ACTIVATED PARTIAL 2022-03-27 19:55:00 Jeromy Daigle [facility] HB ECG ROUTINE & RHYTHM 2022-03-27 19:44:31 Jeromy Daigle [facility] HB ECG ROUTINE & RHYTHM 2022-03-27 19:44:31 Jeromy Daigle [facility] HB ECG ROUTINE & RHYTHM 2022-03-27 19:44:31 Jeromy Daigle [facility] CONSENT/REFUSAL FOR 2022-03-27 19:29:26 Doctor Unassamalia, [facility] DIAGNOSIS AND TREATMENT [facility] CONSENT/REFUSAL FOR 2022-03-27 19:29:26 Doctor Unassigned, [facility] DIAGNOSIS AND TREATMENT [facility] CONSENT/REFUSAL FOR 2022-03-27 19:29:26 Doctor Unassigned, [facility] (AUTOMATED) 2022-03-13 22:21:00 Dheeraj Barrios [facility] POCT GLUCOSE (AUTOMATED) 2022-03-13 22:21:00 Dheeraj Barrios [facility] POCT GLUCOSE (AUTOMATED) 2022-03-13 20:03:00 Dheeraj Barrios [facility] POCT GLUCOSE (AUTOMATED) 2022-03-13 20:03:00 Dheeraj Barrios [facility] [place] TIME OR 2022-03-13 18:06:00 Chow, [facility] o [facility] (NON-REPORTABLE) Medical Branch [place] TIME OR 2022-03-13 18:06:00 [facility] o [facility] (NON-REPORTABLE) Medical Branch RAY RESECTION 2022-03-13 15:45:00 [facility] NERVE BLOCK 2022-03-13 15:39:42 Liz Bynum [facility] POCT GLUCOSE (AUTOMATED) 2022-03-13 15:14:00 Dheeraj Barrios [facility] POCT GLUCOSE (AUTOMATED) 2022-03-13 15:14:00 Dheeraj Barrios [facility] POCT GLUCOSE (AUTOMATED) 2022-03-13 15:05:00 Dheeraj Barrios [facility] POCT GLUCOSE (AUTOMATED) 2022-03-13 15:05:00 Dheeraj Barrios [facility] POCT GLUCOSE (AUTOMATED) 2022-03-13 03:44:00 Dheeraj Barrios [facility] POCT GLUCOSE (AUTOMATED) 2022-03-13 03:44:00 Dheeraj Barrios [facility] POCT GLUCOSE (AUTOMATED) 2022-03-12 22:24:00 Dheeraj Barrios [facility] POCT GLUCOSE (AUTOMATED) 2022-03-12 22:24:00 Dheeraj Barrios [facility] POCT GLUCOSE (AUTOMATED) 2022-03-12 17:43:00 Dheeraj Barrios [facility] POCT GLUCOSE (AUTOMATED) 2022-03-12 17:43:00 Dheeraj Barrios [facility] POCT GLUCOSE (AUTOMATED) 2022-03-12 13:35:00 Dheeraj Barrios [facility] POCT GLUCOSE (AUTOMATED) 2022-03-12 13:35:00 Dheeraj Barrios [facility] POCT GLUCOSE (AUTOMATED) 2022-03-12 02:57:00 Dheeraj Barrios [facility] POCT GLUCOSE (AUTOMATED) 2022-03-12 02:57:00 Dheeraj Barrios [facility] POCT GLUCOSE (AUTOMATED) 2022-03-11 22:03:00 Dheeraj Barrios [facility] POCT GLUCOSE (AUTOMATED) 2022-03-11 22:03:00 Dheeraj Barrios [facility] POCT GLUCOSE (AUTOMATED) 2022-03-11 19:02:00 Dheeraj Barrios [facility] POCT GLUCOSE (AUTOMATED) 2022-03-11 19:02:00 Dheeraj Barrios [facility] POCT GLUCOSE (AUTOMATED) 2022-03-11 19:02:00 Dheeraj Barrios [facility] POCT GLUCOSE (AUTOMATED) 2022-03-11 13:24:00 Dheeraj Barrios [facility] POCT GLUCOSE (AUTOMATED) 2022-03-11 13:24:00 Dheeraj Barrios [facility] POCT GLUCOSE (AUTOMATED) 2022-03-11 13:24:00 Dheeraj Barrios [facility] POCT GLUCOSE (AUTOMATED) 2022-03-11 02:40:00 Dheeraj Barrios [facility] POCT GLUCOSE (AUTOMATED) 2022-03-11 02:40:00 Dheeraj Barrios [facility] POCT GLUCOSE (AUTOMATED) 2022-03-11 02:40:00 Dheeraj Barrios [facility] POCT GLUCOSE (AUTOMATED) 2022-03-10 23:19:00 Dheeraj Barrios [facility] POCT GLUCOSE (AUTOMATED) 2022-03-10 23:19:00 Dheeraj Barrios [facility] POCT GLUCOSE (AUTOMATED) 2022-03-10 23:19:00 Dheeraj Barrios [facility] POCT GLUCOSE (AUTOMATED) 2022-03-10 18:22:00 Bunny De Paz [facility] POCT GLUCOSE (AUTOMATED) 2022-03-10 18:22:00 [facility] POCT GLUCOSE (AUTOMATED) 2022-03-10 18:22:00 De Paz, Bunyn [facility] POCT GLUCOSE (AUTOMATED) 2022-03-10 18:22:00 De Paz, [...] 01:52:00 De Paz, Bunny [facility] POCT GLUCOSE (AUTOMATED) 2022-03-10 01:52:00 [...] GLUCOSE (AUTOMATED) 2022-03-09 13:36:00 Bunny De Paz [facility] POCT GLUCOSE (AUTOMATED) 2022-03-09 13:36:00 Bunny De Paz [facility] POCT GLUCOSE (AUTOMATED) 2022-03-09 13:36:00 Bunny De Paz [facility] POCT GLUCOSE (AUTOMATED) 2022-03-09 13:36:00 De PazBunny [facility] CBC WITH DIFF 2022-03-09 10:49:00 Jessi [facility] MAGNESIUM 2022-03-09 10:49:00 Deann [facility] BASIC METABOLIC PANEL 2022-03-09 10:49:00 Jessi Zacarias [facility] (NA, K, CL, CO2, GLUCOSE, Medica l Branch BUN, CREATININE, CA) PROTHROMBIN TIME / INR 2022-03-09 10:49:00 Jessi Zacarias [facility] MAGNESIUM 2022-03-09 10:49:00 Jessi [facility] BASIC METABOLIC PANEL 2022-03-09 10:49:00 Jessi Zacarias [facility] (NA, K, CL, CO2, GLUCOSE, Medica l Branch BUN, CREATININE, CA) CBC WITH DIFF 2022-03-09 10:49:00 Jessi [facility] PROTHROMBIN TIME / INR 2022-03-09 10:49:00 [facility] MAGNESIUM 2022-03-09 10:49:00 Jessi [facility] BASIC METABOLIC PANEL 2022-03-09 10:49:00 Jessi Zacarias [facility] (NA, K, CL, CO2, GLUCOSE, Medica l Branch BUN, CREATININE, CA) CBC WITH DIFF 2022-03-09 10:49:00 Deann [facility] PROTHROMBIN TIME / INR 2022-03-09 10:49:00 Jessi Zacarias [facility] MAGNESIUM 2022-03-09 10:49:00 Deann [facility] BASIC METABOLIC PANEL 2022-03-09 10:49:00 Jessi Zacarias [facility] (NA, K, CL, CO2, GLUCOSE, Medica l Branch BUN, CREATININE, CA) CBC WITH DIFF 2022-03-09 10:49:00 [facility] PROTHROMBIN TIME / INR 2022-03-09 10:49:00 Jessi Zacarias [facility] POCT GLUCOSE (AUTOMATED) 2022-03-09 02:22:00 De Paz, Bunny [employer] [facility] POCT GLUCOSE (AUTOMATED) 2022-03-09 02:22:00 De Paz, Bunny [employer] [facility] POCT GLUCOSE (AUTOMATED) 2022-03-09 02:22:00 De Paz, Bunny [employer] [facility] POCT GLUCOSE (AUTOMATED) 2022-03-09 02:22:00 De Paz, Bunny [employer] [facility] POCT GLUCOSE (AUTOMATED) 2022-03-08 21:51:00 De Paz, Bunny [employer] [facility] POCT GLUCOSE (AUTOMATED) 2022-03-08 21:51:00 De Paz, Bunny [employer] [facility] POCT GLUCOSE (AUTOMATED) 2022-03-08 21:51:00 De Paz, Bunny [employer] [facility] POCT GLUCOSE (AUTOMATED) 2022-03-08 21:51:00 De Paz, [facility] HB ABO GROUPING 2022-03-08 21:38:00 Gabbi [facility] HB ABO GROUPING 2022-03-08 21:38:00 Elvashine [facility] HB ABO GROUPING 2022-03-08 21:38:00 Gabbi [facility] HB ABO GROUPING 2022-03-08 21:38:00 Gabbi [facility] POCT GLUCOSE (AUTOMATED) 2022-03-08 17:21:00 De Paz, Bunny [employer] [facility] POCT GLUCOSE (AUTOMATED) 2022-03-08 17:21:00 De Paz, [employer] [facility] POCT GLUCOSE (AUTOMATED) 2022-03-08 17:21:00 Bunny De Paz [facility] POCT GLUCOSE (AUTOMATED) 2022-03-08 17:21:00 De PazBunny [facility] POCT GLUCOSE (AUTOMATED) 2022-03-08 13:28:00 De PazBunny [facility] POCT GLUCOSE (AUTOMATED) 2022-03-08 13:28:00 De PazBunny [facility] POCT GLUCOSE (AUTOMATED) 2022-03-08 13:28:00 De Paz, Bunny [place] [facility] POCT GLUCOSE (AUTOMATED) 2022-03-08 13:28:00 De Paz, Bunny [place] [facility] POCT GLUCOSE (AUTOMATED) 2022-03-08 12:23:00 De PazBunny [facility] POCT GLUCOSE (AUTOMATED) 2022-03-08 12:23:00 De Paz, Bunny [place] [facility] POCT GLUCOSE (AUTOMATED) 2022-03-08 12:23:00 De PazBunny [facility] POCT GLUCOSE (AUTOMATED) 2022-03-08 12:23:00 De PazBunny [facility] CBC WITHOUT DIFF 2022-03-08 10:31:00 Jennifer [facility] BASIC METABOLIC PANEL 2022-03-08 10:31:00 [facility], K, CL, CO2, GLUCOSE, Medica l Branch BUN, CREATININE, CA) MAGNESIUM 2022-03-08 10:31:00 Jennifer [facility] MAGNESIUM 2022-03-08 10:31:00 Jennifer [facility] BASIC METABOLIC PANEL 2022-03-08 10:31:00 [facility] (NA, K, CL, CO2, GLUCOSE, Medica l Branch BUN, CREATININE, CA) CBC WITHOUT DIFF 2022-03-08 10:31:00 Jennifer [facility] MAGNESIUM 2022-03-08 10:31:00 Jennifer [facility] BASIC METABOLIC PANEL 2022-03-08 10:31:00 Rodriguez, [facility] (NA, K, CL, CO2, GLUCOSE, Medica l Branch BUN, CREATININE, CA) CBC WITHOUT DIFF 2022-03-08 10:31:00 Jennifer [facility] MAGNESIUM 2022-03-08 10:31:00 Jennifer [facility] BASIC METABOLIC PANEL 2022-03-08 10:31:00 Jennifer [facility] (NA, K, CL, CO2, GLUCOSE, Medica l Branch BUN, CREATININE, CA) CBC WITHOUT DIFF 2022-03-08 10:31:00 Jennifer [facility] POCT GLUCOSE (AUTOMATED) 2022-03-08 02:33:00 De Paz, Bunny [employer] [facility]SE (AUTOMATED) 2022-03-08 02:33:00 De Paz, [facility]unny [facility] PO[facility]UCOSE (AUTOMATED) 2022-03-08 02:33:00 De Paz, Bunny Uni versity [facility] POCT GLUCOSE (AUTOMATED) 2022-03-08 02:33:00 De Paz, Bunny Uni versity of [facility] POCT GLUCOSE (AUTOMATED) 2022-03-07 23:54:00 De Paz, Bunny Uni versity of [facility] POCT GLUCOSE (AUTOMATED) 2022-03-07 23:54:00 De Paz, Bunny Uni versity of [facility] POCT GLUCOSE (AUTOMATED) 2022-03-07 23:54:00 De Paz, Bunny Uni vers[facility] of [facility] POCT GLUCOSE (AUTOMATED) 2022-03-07 23:54:00 De Paz, Bunny Uni vers[facility] POCT GLUCOSE (AUTOMATED) 2022-03-07 18:33:00 De Paz, Bunny Uni vers[facility] POCT GLUCOSE (AUTOMATED) 2022-03-07 18:33:00 De Paz, Bunny Uni vers[facility] of [facility] POCT GLUCOSE (AUTOMATED) 2022-03-07 18:33:00 De Paz, Bunny Uni vers[facility] POCT GLUCOSE (AUTOMATED) 2022-03-07 18:33:00 De Paz, Bunny Uni versity of [facility] FL TIME OR 2022-03-07 14:52:00 Sahibzada, [facility] (NON-REPORTABLE) [facility] FL TIME OR 2022-03-07 14:52:00 Jose [facility] (NON-REPORTABLE) [facility] FL TIME OR 2022-03-07 14:52:00 Jose [facility] (NON-REPORTABLE) [facility] FL TIME OR 2022-03-07 14:52:00 Jose [facility] (NON-REPORTABLE) [facility] INTUBATION 2022-03-07 13:25:00 Brittany [place] [facility] ARTERIOGRAM 2022-03-07 12:56:00 Nereida [facility] ARTERIOGRAM 2022-03-07 12:56:00 Nereida [facility] ARTERIOGRAM 2022-03-07 12:56:00 Nereida [facility] POCT GLUCOSE (AUTOMATED) 2022-03-07 11:54:00 Bunny De Paz [facility] POCT GLUCOSE (AUTOMATED) 2022-03-07 11:54:00 Bunny De Paz [facility] POCT GLUCOSE (AUTOMATED) 2022-03-07 11:54:00 Bunny De Paz [facility] POCT GLUCOSE (AUTOMATED) 2022-03-07 11:54:00 Bunny De Paz [facility] CBC WITHOUT DIFF 2022-03-07 10:50:00 Jennifer [facility] BASIC METABOLIC PANEL 2022-03-07 10:50:00 Navedep Rodriguez [facility] (NA, K, CL, CO2, GLUCOSE, Medica l Branch BUN, CREATININE, CA) MAGNESIUM 2022-03-07 10:50:00 Navdeep [facility] MAGNESIUM 2022-03-07 10:50:00 Jennifer [facility] BASIC METABOLIC PANEL 2022-03-07 10:50:00 Navdeep Rodriguez [facility] (NA, K, CL, CO2, GLUCOSE, Medica l Branch BUN, CREATININE, CA) CBC WITHOUT DIFF 2022-03-07 10:50:00 Jennifer [facility] MAGNESIUM 2022-03-07 10:50:00 Jennifer [facility] BASIC METABOLIC PANEL 2022-03-07 10:50:00 Rodriguze, [facility] (NA, K, CL, CO2, GLUCOSE, Medica l Branch BUN, CREATININE, CA) CBC WITHOUT DIFF 2022-03-07 10:50:00 Jennifer [facility] MAGNESIUM 2022-03-07 10:50:00 Jennifer [facility] BASIC METABOLIC PANEL 2022-03-07 10:50:00 Rodriguez [facility] (NA, K, CL, CO2, GLUCOSE, Medica l Branch BUN, CREATININE, CA) CBC WITHOUT DIFF 2022-03-07 10:50:00 Jennifer [facility] HB ECG ROUTINE & RHYTHM 2022-03-07 03:18:16 [facility] RHYTHM 2022-03-07 03:18:16 Brittany [place] [facility] POCT GLUCOSE (AUTOMATED) 2022-03-07 02:35:00 De PazBunny [facility] POCT GLUCOSE (AUTOMATED) 2022-03-07 02:35:00 De PazBunny [facility] [employer] [facility] POCT GLUCOSE (AUTOMATED) 2022-03-07 02:35:00 De [facility]azBunny [facility] POCT GLUCOSE (AUTOMATED) 2022-03-07 02:35:00 De PazBunny [facility] [employer] [facility] [employer] [facility] POCT GLUCOSE (AUTOMATED) 2022-03-07 00:28:00 De PazBunny [facility] [employer] [facility] POCT GLUCOSE (AUTOMATED) 2022-03-07 00:28:00 De [facility]azBunny [facility] POCT GLUCOSE (AUTOMATED) 2022-03-07 00:28:00 De PazBunny [employer] [facility] POCT GLUCOSE (AUTOMATED) 2022-03-07 00:28:00 De PazBunny versity of [facility] POCT GLUCOSE (AUTOMATED) 2022-03-06 19:34:00 De Paz, Bunny Wellington versity of [facility] POCT GLUCOSE (AUTOMATED) 2022-03-06 19:34:00 De PazBunny versity of [facility] POCT GLUCOSE (AUTOMATED) 2022-03-06 19:34:00 De Paz, Bunny Wellington versity of [facility] POCT GLUCOSE (AUTOMATED) 2022-03-06 19:34:00 De Paz, Bunny Wellington versity of [facility] POCT GLUCOSE (AUTOMATED) 2022-03-06 15:36:00 De Paz, Bunny Wellington versity of [facility] POCT GLUCOSE (AUTOMATED) 2022-03-06 15:36:00 De PazBunny versity of [facility] POCT GLUCOSE (AUTOMATED) 2022-03-06 15:36:00 De PazBunny versity of [facility] POCT GLUCOSE (AUTOMATED) 2022-03-06 15:36:00 De PazBunny versity of [facility] BMABI MULTI LEVEL - BY 2022-03-06 14:46:32 BillSharad brizuelajacqueline [facility] [place] VASCULAR LAB Medical Branch BAMBI MULTI LEVEL - BY 2022-03-06 14:46:32 BillmSharadza [facility] [place] VASCULAR LAB Medical Branch BAMBI MULTI LEVEL - BY 2022-03-06 14:46:32 SalimSharadza [facility] [place] VASCULAR LAB Medical Branch BAMBI MULTI LEVEL - BY 2022-03-06 14:46:32 Billchata Sharadza [facility] [place] [facility] Medical [facility] DUPLEX ARTERIAL ARM LEFT 2022-03-06 14:46:24 Billm, Sharadza Uni [facility] [place] - BY VASCULAR LAB Medical Branch DUPLEX ARTERIAL ARM LEFT 2022-03-06 14:46:24 BillmSharadza Uni vers[facility] [place] - BY VASCULAR LAB Medical Branch DUPLEX ARTERIAL ARM LEFT 2022-03-06 14:46:24 BillmSharadza Uni vers[facility] [place] - BY VASCULAR LAB Medical Branch DUPLEX ARTERIAL ARM LEFT 2022-03-06 14:46:24 Billm Sharadza Uni [facility] [place] - BY VASCULAR LAB Medical Branch POCT GLUCOSE (AUTOMATED) 2022-03-06 02:51:00 Zandra Bunny Uni versity of [facility] POCT GLUCOSE (AUTOMATED) 2022-03-06 02:51:00 De Paz, Bunny Uni vers[facility] of [facility] POCT GLUCOSE (AUTOMATED) 2022-03-06 02:51:00 De Paz, Bunny Uni versity of [facility] POCT GLUCOSE (AUTOMATED) 2022-03-06 02:51:00 De Paz, Bunny Uni vers[facility] POCT GLUCOSE (AUTOMATED) 2022-03-05 23:41:00 De Paz, Bunny Uni vers[facility] POCT GLUCOSE (AUTOMATED) 2022-03-05 23:41:00 De Paz, Bunny Uni vers[facility] of [facility] POCT GLUCOSE (AUTOMATED) 2022-03-05 23:41:00 De Paz, Bunny Wellington versity of [facility] POCT GLUCOSE (AUTOMATED) 2022-03-05 23:41:00 De Paz, Bunny Wellington versity [facility] MRSA / MSSA SCREEN BY 2022-03-05 22:10:00 Deann [facility] [place] PCR, [facility] MRSA / MSSA SCREEN BY 2022-03-05 22:10:00 Hamza [facility] [place] PCR, [facility] MRSA / MSSA SCREEN BY 2022-03-05 22:10:00 Hamjacqueline [facility] [place] PCR, [facility] MRSA / MSSA SCREEN BY 2022-03-05 22:10:00 Hamjacqueline, [facility] [place] PCR, [facility] POCT GLUCOSE (AUTOMATED) 2022-03-05 19:03:00 De Paz, Bunny Uni versity of [facility] POCT GLUCOSE (AUTOMATED) 2022-03-05 19:03:00 De Paz, Bunny Uni versity of [facility] POCT GLUCOSE (AUTOMATED) 2022-03-05 19:03:00 De Paz, Bunny Uni vers[facility] of [facility] POCT GLUCOSE (AUTOMATED) 2022-03-05 19:03:00 De Paz, Bunny Uni vers[facility] POCT GLUCOSE (AUTOMATED) 2022-03-05 15:55:00 De Paz, Bunny Uni vers[facility] POCT GLUCOSE (AUTOMATED) 2022-03-05 15:55:00 De Paz, Bunny [facility] POCT GLUCOSE (AUTOMATED) 2022-03-05 15:55:00 Bunny De Paz [facility] POCT GLUCOSE (AUTOMATED) 2022-03-05 15:55:00 Bunny De Paz [facility] CBC WITH DIFF 2022-03-05 11:12:00 Bill [facility] BASIC METABOLIC PANEL 2022-03-05 11:12:00 Bill [facility] (NA, K, CL, CO2, GLUCOSE, Medica l Branch BUN, CREATININE, CA) MAGNESIUM 2022-03-05 11:12[facility] 2022-03-05 11:12:00 Jennifer [facility] C-REACTIVE PROTEIN 2022-03-05 11:12:00 Jennifer [facility] MAGNESIUM 2022-03-05 11:12:00 Shayne [facility] C-REACTIVE PROTEIN 2022-03-05 11:12:00 Jennifer [facility] BASIC METABOLIC PANEL 2022-03-05 11:12:00 Shayne [facility] (NA, K, CL, CO2, GLUCOSE, Medica l Branch BUN, CREATININE, CA) SEDIMENTATION RATE 2022-03-05 11:12:00 Jennifer [facility] CBC WITH DIFF 2022-03-05 11:12:00 Shayne [facility] MAGNESIUM 2022-03-05 11:12:00 Shayne [facility] C-REACTIVE PROTEIN 2022-03-05 11:12:00 Jennifer [facility] BASIC METABOLIC PANEL 2022-03-05 11:12:00 Shayne [facility] (NA, K, CL, CO2, GLUCOSE, Medica l Branch BUN, CREATININE, CA) SEDIMENTATION RATE 2022-03-05 11:12:00 Jennifer [facility] CBC WITH DIFF 2022-03-05 11:12:00 Shayne [facility] MAGNESIUM 2022-03-05 11:12:00 [facility] C-REACTIVE PROTEIN 2022-03-05 11:12:00 Jennifer [facility] BASIC METABOLIC PANEL 2022-03-05 11:12:00 [facility] (NA, K, CL, CO2, GLUCOSE, Medica l Branch BUN, CREATININE, CA) SEDIMENTATION RATE 2022-03-05 11:12:00 [facility] CBC WITH DIFF 2022-03-05 11:12:00 [facility] CBC WITH DIFF 2022-03-05 03:21:00 [facility] BASIC METABOLIC PANEL 2022-03-05 03:21:00 [facility] (NA, K, CL, CO2, GLUCOSE, Medica l Branch BUN, CREATININE, CA) HEPATIC FUNCTION PANEL 2022-03-05 03:21:00 [facility] ([id number]) (ALB,T.PRO,BILI Medical Branch T,BU/BC,ALT,AST,ALK PHOS) PROTHROMBIN TIME / INR 2022-03-05 03:21:00 [facility] BLOOD CULTURE SCREEN 2022-03-05 03:21:00 [facility] MAGNESIUM 2022-03-05 03:21:00 [facility] BLOOD CULTURE SCREEN 2022-03-05 03:21:00 [facility] MAGNESIUM 2022-03-05 03:21:00 [facility] HEPATIC FUNCTION PANEL 2022-03-05 03:21:00 [facility] ([id number]) (ALB,T.PRO,BILI Medical Branch T,BU/BC,ALT,AST,ALK PHOS) BASIC METABOLIC PANEL 2022-03-05 03:21:00 [facility] (NA, K, CL, CO2, GLUCOSE, Medica l Branch BUN, CREATININE, CA) CBC WITH DIFF 2022-03-05 03:21:00 Billchata [facility] PROTHROMBIN TIME / INR 2022-03-05 03:21:00 [facility] BLOOD CULTURE SCREEN 2022-03-05 03:21:00 BillDeann brizuela [facility] MAGNESIUM 2022-03-05 03:21:00 Salichata [facility] HEPATIC FUNCTION PANEL 2022-03-05 03:21:00 [facility] ([id number]) (ALB,T.PRO,BILI Medical Branch T,BU/BC,ALT,AST,ALK PHOS) BASIC METABOLIC PANEL 2022-03-05 03:21:00 [facility] (NA, K, CL, CO2, GLUCOSE, Medica l Branch BUN, CREATININE, CA) CBC WITH DIFF 2022-03-05 03:21:00 Bill [facility] PROTHROMBIN TIME / INR 2022-03-05 03:21:00 [facility] BLOOD CULTURE SCREEN 2022-03-05 03:21:00 BillDaenn brizuela [facility] MAGNESIUM 2022-03-05 03:21:00 Bill [facility] HEPATIC FUNCTION PANEL 2022-03-05 03:21:00 [facility] ([id number]) (ALB,T.PRO,BILI [facility] T,BU/BC,ALT,AST,ALK PHOS) BASIC METABOLIC PANEL 2022-03-05 03:21:00 [facility] (NA, K, CL, CO2, GLUCOSE, Medica l Branch BUN, CREATININE, CA) CBC WITH DIFF 2022-03-05 03:21:00 Bill [facility] PROTHROMBIN TIME / INR 2022-03-05 03:21:00 Shayne [facility] GLYCOSYLATED HEMOGLOBIN 2022-03-05 03:20:00 Bill [facility] (A1C) [facility] GLYCOSYLATED HEMOGLOBIN 2022-03-05 03:20:00 Shayne [facility] (A1C) [facility] GLYCOSYLATED HEMOGLOBIN 2022-03-05 03:20:00 Shayne [facility] (A1C) [facility] GLYCOSYLATED HEMOGLOBIN 2022-03-05 03:20:00 Shayne [facility] (A1C) [facility] POCT GLUCOSE (AUTOMATED) 2022-03-05 02:51:00 Bunny De Paz [facility] POCT GLUCOSE (AUTOMATED) 2022-03-05 02:51:00 Bunny De Paz [facility] POCT GLUCOSE (AUTOMATED) 2022-03-05 02:51:00 Zandra [facility] POCT GLUCOSE (AUTOMATED) 2022-03-05 02:51:00 Bunny De Paz [facility] XR HAND 3+ VW LEFT 2022-03-05 00:45:00 Billchata [facility] XR HAND 3+ VW LEFT 2022-03-05 00:45:00 Billchata [facility] XR HAND 3+ VW LEFT 2022-03-05 00:45:00 Billchata [facility] XR HAND 3+ VW LEFT 2022-03-05 00:45:00 Bill [facility] BLOOD CULTURE SCREEN 2022-02-06 01:32:00 Elvia Estrada [facility] BLOOD CULTURE SCREEN 2022-02-06 01:31:00 Elvia Estrada [facility] BASIC METABOLIC PANEL 2022-02-06 01:00:00 Elvia Estrada [facility] (NA, K, CL, CO2, GLUCOSE, Medica l Branch BUN, CREATININE, CA) BASIC METABOLIC PANEL 2022-02-06 01:00:00 [facility] (NA, K, CL, CO2, GLUCOSE, Medica l Branch BUN, CREATININE, CA) CBC WITH DIFF 2022-02-06 00:59:00 Elvia Estrada [facility] PROTHROMBIN TIME / INR 2022-02-06 00:59:00 Elvia Estrada [facility] ACTIVATED PARTIAL 2022-02-06 00:59:00 Elvia Estrada [facility] CBC WITH DIFF 2022-02-06 00:59:00 Elvia Estrada [facility] ACTIVATED PARTIAL 2022-02-06 00:59:00 Elvia Estrada [facility] PROTHROMBIN TIME / INR 2022-02-06 00:59:00 Elvia Estrada [facility] XR HAND 3+ VW LEFT 2022-02-05 22:43:39 Elvia Estrada [facility] XR HAND 3+ VW LEFT 2022-02-05 22:43:39 Elvia Estrada [facility] CONSENT/REFUSAL FOR 2022-02-05 22:20:55 Doctor Josse [facility] DIAGNOSIS AND TREATMENT [place] [facility] CONSENT/REFUSAL FOR 2022-02-05 22:20:55 Doctor Josse [facility] DIAGNOSIS AND TREATMENT [place] [facility] EMERGENCY SERVICES 2022-02-05 06:01:00 Doctor Edelamalia [facility] AGREEMENTS AND [place] [facility] AUTHORIZATIONS CONSENT/REFUSAL FOR 2022-01-14 16:30:47 Doctor Josse [facility] DIAGNOSIS AND TREATMENT [place] [facility] CONSENT/REFUSAL FOR 2022-01-14 16:30:47 Doctor Josse [facility] DIAGNOSIS AND TREATMENT [place] [facility] EMERGENCY SERVICES 2022-01-14 05:01:00 Doctor Josse [facility] AGREEMENTS AND [place] [facility] AUTHORIZATIONS AUTHORIZATION FOR RELEASE 2022-01-14 05:01:00 Doctor Loaiza [facility] [place] [facility] XR FINGERS 2 VW LEFT 2021-12-25 14:42:11 Louie Warren [facility] XR FINGERS 2 VW LEFT 2021-12-25 14:42:11 Louie Warren [facility] COMP. METABOLIC PANEL 2021-12-25 14:27:00 Louie Warren [facility] ([id number]) Medical Branch CBC WITH DIFF 2021-12-25 14:27:00 [facility]-12-25 14:27[facility]00 [facility]FF 2021-12-25 14:27:00 [facility] 2021-12-25 14:27:00 [facility] MET[facility]OLIC PANEL 2021-12-25 14:27:00 WarrenLouie grimm [facility] ([id number]) Medical Branch EMERGENCY SERVICES 2021-12-25 05:01:00 Doctor Unassigned, [facility] AGREEMENTS AND [place] [facility] AUTHORIZATIONS ASSIGNMENT OF BENEFITS 2019-12-20 14:47:43 Doctor Unassigned, [facility] [place] [facility] POCT GLUCOSE (AUTOMATED) 2019-12-07 22:09:00 Yadira Nick [facility] POCT GLUCOSE (AUTOMATED) 2019-12-07 17:13:[address] [facility] BASIC METABOLIC PANEL 2019-12-07 14:24:00 [facility] (NA, K, CL, CO2, GLUCOSE, Medica l Branch BUN, CREATININE, CA) CBC WITH DIFF 2019-12-07 14:24:00 [facility] POCT GLUCOSE (AUTOMATED) 2019-12-07 13:13:00 Yadira Nick [facility] POCT GLUCOSE (AUTOMATED) 2019-12-07 09:26:00 Yadira Nick [facility] POCT GLUCOSE (AUTOMATED) 2019-12-07 05:06:00 Yadira Nick [facility] POCT GLUCOSE (AUTOMATED) 2019-12-07 01:19:00 Yadira Nick [facility] POCT GLUCOSE (AUTOMATED) 2019-12-06 23:40:00 Yadira Nick [facility] FUNGUS (ROUTINE) CULTURE 2019-12-06 22:07:32 Yadira Nick [facility] TISSUE 2019-12-06 22:07:32 Yadira Nick [facility] CULTURE(AEROBIC/ANAEROBIC Medica l Branch ) FOOT DEBRIDEMENT 2019-12-06 20:36:00 [facility] COVID[facility] (ID NOW RAPID 2019-12-06 17:01:00 Missy Shabazz [facility] TESTING) [facility] POCT GLUCOSE (AUTOMATED) 2019-12-06 16:56:[address] [facility] POCT GLUCOSE (AUTOMATED) 2019-12-06 13:16:[address] [facility] POCT GLUCOSE (AUTOMATED) 2019-12-06 09:16:[address] [facility] POCT GLUCOSE (AUTOMATED) 2019-12-06 05:24:[address] [facility] POCT GLUCOSE (AUTOMATED) 2019-12-06 01:53:[address] [facility] POCT GLUCOSE (AUTOMATED) 2019-12-05 22:05:[address] [facility] POCT GLUCOSE (AUTOMATED) 2019-12-05 16:57:[address] [facility] POCT GLUCOSE (AUTOMATED) 2019-12-05 12:48:[address] [facility] POCT GLUCOSE (AUTOMATED) 2019-12-05 09:58:[address] [facility] POCT GLUCOSE (AUTOMATED) 2019-12-05 05:22:[address] [facility] POCT GLUCOSE (AUTOMATED) 2019-12-04 21:27:[address] [facility] POCT GLUCOSE (AUTOMATED) 2019-12-04 16:49:[address] [facility] POCT GLUCOSE (AUTOMATED) 2019-12-04 13:32:[address] [facility] BASIC METABOLIC PANEL 2019-12-04 10:29:00 Braulio Jovel [facility] (NA, K, CL, CO2, GLUCOSE, Medica l Branch BUN, CREATININE, CA) CBC WITH DIFF 2019-12-04 10:29:00 [facility] POCT GLUCOSE (AUTOMATED) 2019-12-04 04:55:00 Yadira Nick [facility] POCT GLUCOSE (AUTOMATED) 2019-12-04 01:08:00 Yadira Nick [facility] POCT GLUCOSE (AUTOMATED) 2019-12-03 21:12:00 Yadira Nick [facility] POCT GLUCOSE (AUTOMATED) 2019-12-03 17:19:00 Yadira Nick [facility] POCT GLUCOSE (AUTOMATED) 2019-12-03 13:36:00 [facility] BASIC METABOLIC PANEL 2019-12-03 10:17:00 [facility] (NA, K, CL, CO2, GLUCOSE, Medica l Branch BUN, CREATININE, CA) CBC WITH DIFF 2019-12-03 10:17:00 [facility] POCT GLUCOSE (AUTOMATED) 2019-12-03 09:11:00 Yadira Nick [facility] POCT GLUCOSE (AUTOMATED) 2019-12-03 05:46:00 Yadira Nick [facility] POCT GLUCOSE (AUTOMATED) 2019-12-03 02:01:00 Yadira iNck [facility] POCT GLUCOSE (AUTOMATED) 2019-12-03 01:28:00 Yadira Nick [facility] POCT GLUCOSE (AUTOMATED) 2019-12-02 23:04:00 Yadira Nick [facility] POCT GLUCOSE (AUTOMATED) 2019-12-02 17:07:00 Yadira Nick [facility] POCT GLUCOSE (AUTOMATED) 2019-12-02 12:58:00 Yadira Nick [facility] POCT GLUCOSE (AUTOMATED) 2019-12-02 09:51:00 Yadira Nick [facility] POCT GLUCOSE (AUTOMATED) 2019-12-02 06:12:00 [facility] 2019-12-02 03:35:00 Rafael Arenas [facility] POCT GLUCOSE (AUTOMATED) 2019-12-02 02:22:00 [facility]ira [facility] POCT GLUCOSE (AUTOMATED) 2019-12-01 21:43:00 [facility] ([facility]OMATED) 2019-12-01 17:27:00 [facility] PO[facility] GLUCOSE (AUTOMATED) 2019-12-01 13:27:00 Yadira Nick [facility] BASIC METABOLIC PANEL 2019-12-01 09:51:00 [facility] (NA, K, CL, CO2, GLUCOSE, Medica l Branch BUN, CREATININE, CA) CBC WITH DIFF 2019-12-01 09:51:00 [facility] POCT GLUCOSE (AUTOMATED) 2019-12-01 09:39:00 Yadira Nick [facility] POCT GLUCOSE (AUTOMATED) 2019-12-01 05:44:[address] [facility] POCT GLUCOSE (AUTOMATED) 2019-12-01 01:44:00 Yadira Nick [facility] HB ABO GROUPING 2019-11-30 22:40:00 [facility] POCT GLUCOSE (AUTOMATED) 2019-11-30 22:09:00 [facility] POCT GLUCOSE (AUTOMATED) 2019-11-30 15:56:00 Yadira Nick [facility] VANCOMYCIN TROUGH 2019-11-30 14:21:00 [facility] POCT GLUCOSE (AUTOMATED) 2019-11-30 13:24:00 Yadira Nick U [facility] BASIC METABOLIC PANEL 2019-11-30 09:22:00 [facility] (NA, K, CL, CO2, GLUCOSE, Medica l Branch BUN, CREATININE, CA) CBC WITH DIFF 2019-11-30 09:22:00 [facility] POCT GLUCOSE (AUTOMATED) 2019-11-30 09:21:00 [facility] POCT GLUCOSE (AUTOMATED) 2019-11-30 04:50:00 Yadira Nick [facility] POCT GLUCOSE (AUTOMATED) 2019-11-30 01:35:00 Yadira Nick [facility] POCT GLUCOSE (AUTOMATED) 2019-11-30 01:21:00 Yadira Nick [facility] POCT GLUCOSE (AUTOMATED) 2019-11-29 23:08:00 Yadira Nick [facility] POCT GLUCOSE (AUTOMATED) 2019-11-29 17:00:00 Yadira Nick [facility] POCT GLUCOSE (AUTOMATED) 2019-11-29 12:38:00 Yadira Nick [facility] BASIC METABOLIC PANEL 2019-11-29 09:43:00 [facility] (NA, K, CL, CO2, GLUCOSE, Medica l Branch BUN, CREATININE, CA) CBC WITH DIFF 2019-11-29 09:43:00 [facility] POCT GLUCOSE (AUTOMATED) 2019-11-29 09:27:00 Yadira Nick [facility] POCT GLUCOSE (AUTOMATED) 2019-11-29 04:43:00 Yadira Nick [facility] BASIC METABOLIC PANEL 2019-11-29 03:53:00 [facility] (NA, K, CL, CO2, GLUCOSE, Medica l Branch BUN, CREATININE, CA) POCT GLUCOSE (AUTOMATED) 2019-11-29 01:37:00 Yadira Nick [facility] POCT GLUCOSE (AUTOMATED) 2019-11-28 22:23:00 Yadira Nick [facility] POCT GLUCOSE (AUTOMATED) 2019-11-28 19:56:00 Yadira Nick [facility] POCT GLUCOSE (AUTOMATED) 2019-11-28 16:55:00 Yadira Nick [facility] POCT GLUCOSE (AUTOMATED) 2019-11-28 13:42:00 Yadira Nick [facility] BASIC METABOLIC PANEL 2019-11-28 10:24:00 [facility] (NA, K, CL, CO2, GLUCOSE, Medica l Branch BUN, CREATININE, CA) CBC WITH DIFF 2019-11-28 10:24:00 [facility] POCT GLUCOSE (AUTOMATED) 2019-11-28 09:01:[address] [facility] POCT GLUCOSE (AUTOMATED) 2019-11-28 05:10:00 Yadira Nick [facility] VANCOMYCIN TROUGH 2019-11-28 04:52:00 Carlos Bee [facility] POCT GLUCOSE (AUTOMATED) 2019-11-28 01:09:[address] [facility] POCT GLUCOSE (AUTOMATED) 2019-11-27 22:10:[address] [facility] FL TIME OR 2019-11-27 21:38:[address] [facility] (NON-REPORTABLE) [facility] FUNGUS (ROUTINE) CULTURE 2019-11-27 20:45:[address] [facility] TISSUE 2019-11-27 20:45:56 Yadira Nick [facility] CULTURE(AEROBIC/ANAEROBIC Medica l Branch ) ASPIRATE OR ABSCESS 2019-11-27 20:28:15 Yadira Nick [facility] CULTURE(AEROBIC/ANAEROBIC Medica l [place] ) AFB CULTURE 2019-11-27 20:28:15 Yadira Nick [facility] FUNGUS (ROUTINE) CULTURE 2019-11-27 20:28:[address] [facility] FUNGUS (ROUTINE) CULTURE 2019-11-27 20:23:[address] [facility] TISSUE 2019-11-27 20:23:39 Yadira Nick [facility] CULTURE(AEROBIC/ANAEROBIC Medica l Branch ) SURGICAL PATHOLOGY EXAM 2019-11-27 20:07:00 [facility] 2019-11-27 18:00:00 Yadira Nick [facility] ARTERIOGRAM 2019-11-27 18:00:00 Yadira Nick [facility] POCT GLUCOSE (AUTOMATED) 2019-11-27 14:00:00 Sai Lomas [facility] POCT GLUCOSE (AUTOMATED) 2019-11-27 10:12:00 Sai Lomas [facility] MAGNESIUM 2019-11-27 09:58:00 [facility] BASIC METABOLIC PANEL 2019-11-27 09:58:00 [facility] (NA, K, CL, CO2, GLUCOSE, Medica l Branch BUN, CREATININE, CA) CBC WITH DIFF 2019-11-27 09:58:00 [facility] ABORH CONFIRMATION 2019-11-27 09:55:[address] [facility] HB ABO GROUPING 2019-11-27 08:50:00 Braulio Jovel [facility] POCT GLUCOSE (AUTOMATED) 2019-11-27 04:27:00 Sai Lomas [facility] POCT GLUCOSE (AUTOMATED) 2019-11-27 01:10:00 Sai Lomas [facility] BAMBI MULTI LEVEL BY 2019-11-26 21:55:51 Kaelyn Sanders [facility] VASCULAR LAB Medical Branch MR FOOT LEFT W WO 2019-11-26 21:23:56 Molly Greene [facility] CONTRAST A Medical Branch BILATERAL DUPLEX SCAN OF 2019-11-26 19:45:36 Alvarado Saul [facility] ARTERY BY VASCULAR LAB Medical B ranch POCT GLUCOSE (AUTOMATED) 2019-11-26 19:06:00 Sai Lomas [facility] WOUND/ASPIRATE OR ABSCESS 2019-11-26 16:45:00 Braulio Jovel [facility] WOUND CULTURE 2019-11-26 16:45:00 [facility] POCT GLUCOSE (AUTOMATED) 2019-11-26 14:09:00 Sai Lomas [facility] LACTIC ACID WHOLE BLOOD 2019-11-26 09:33:[address] [facility] POCT GLUCOSE (AUTOMATED) 2019-11-26 09:27:00 Sai Lomas [facility] XR FOOT <3 VW LEFT 2019-11-26 02:20:07 Miky Fajardo [facility] COVID-19 (ID NOW RAPID 2019-11-26 02:18:00 Miky Fajardo [facility] TESTING) Medical Branch BLOOD CULTURE SCREEN 2019-11-26 02:13:00 Miky Fajardo [facility] COMP. METABOLIC PANEL 2019-11-26 02:13:00 Miky Fajardo [facility] (58512) [facility] LIPID PANEL (13489)(TOTAL 2019-11-26 02:13:00 Carlos Bee [facility] CHOLESTEROL, [facility] TRIGLYCERIDES, HDL) CBC WITH DIFF 2019-11-26 02:13:00 Miky Fajardo [facility] GLYCOSYLATED HEMOGLOBIN 2019-11-26 02:13:00 Carlos Bee [facility] (A1C) [facility] LACTIC ACID WHOLE BLOOD 2019-11-26 02:13:00 Miky Fajardo [facility] BLOOD CULTURE SCREEN 2019-11-26 01:50:00 Miky Fajardo [facility] NOTICE OF PRIVACY 2019-11-26 01:12:21 Doctor Josse, [facility] PRACTICES [place] [facility] CONSENT/REFUSAL FOR 2019-11-26 01:10:14 Doctor Josse, [facility] DIAGNOSIS AND TREATMENT [place] [facility] [place] AGREEMENTS AUTHORIZATIONS 2019-11-25 05:01:00 Doctor Josse, [facility] AND IRREVOCABLE [place] [facility] ASSIGNMENTS (FORM 2001) Plan of Care Planned Activity Planned Date Details Comments Source Goal Plan of Care Note [code = 32176-4] Goal Plan of Care Note [code = 35820-5] Goal Plan of Care Note [code = 50682-1] Goal Plan of Care Note [code = 15855-3] Goal Plan of Care Note [code = 72617-0] Goal Plan of Care Note [code = 77343-2] Goal Plan of Care Note [code = 42506-7] Goal Plan of Care Note [code = 96633-6] Goal Plan of Care Note [code = 73527-6] Goal Plan of Care Note [code = 91210-9] Goal Plan of Care Note [code = 77303-3] Goal Plan of Care Note [code = 75769-9] Goal Plan of Care Note [code = 14220-0] Goal Plan of Care Note [code = 11669-6] Goal Plan of Care Note [code = 26424-4] Goal Plan of Care Note [code = 34079-5] Goal Plan of Care Note [code = 16503-7] Goal Plan of Care Note [code = 61986-6] Goal Plan of Care Note [code = 86297-4] Goal Plan of Care Note [code = 96017-2] Goal Plan of Care Note [code = 91063-5] Goal Plan of Care Note [code = 89589-6] Goal Plan of Care Note [code = 15698-2] Goal Plan of Care Note [code = 58934-1] Goal Plan of Care Note [code = 27066-3] Goal Plan of Care Note [code = 12002-4] Goal Plan of Care Note [code = 17794-4] Goal Plan of Care Note [code = 97546-8] Goal Plan of Care Note [code = 58213-3] Goal Plan of Care Note [code = 48681-6] Goal Plan of Care Note [code = 13035-6] Goal Plan of Care Note [code = 01664-6] Goal Plan of Care Note [code = 07699-0] Goal Plan of Care Note [code = 81370-6] Goal Plan of Care Note [code = 80620-0] Goal Plan of Care Note [code = 40773-5] Goal Plan of Care Note [code = 91063-4] Encounters Start End Encounter Admission Attending Care Care Encounter Source Date/Time Date/Time Type Type Clinicians Facility Department ID 2022-06-17 2022-06-17 Outpatient R YOBANI, [facility] [id number] Univers 09:00:00 09:00:00 [facility] 2022-06-11 2022-06-11 Outpatient R FAILLACE, [facility] [id number] Univers 09:20:00 10:50:50 MAGALY [facility] 2022-06-11 2022-06-11 Office [facility] 1.2.651.342 [id number] Univers 09:20:00 10:50:50 Visit Magaly SPECIALTY 350.1.13.10 [place] [id number] Ut mushtaq SAUNDERS [address] [place] [address] 2022-06-07 2022-06-07 Emergency X MANE, [facility] ERT [id number] Univers 02:29:00 11:41:00 JULIUS [facility] 2022-06-07 2022-06-07 Emergency [place], TRAUMA 1.2.840.114 [id number] Univers 02:29:00 11:41:00 Julius Clifton CENTER 350.1.13.10 [place] [id number] [facility] [address] [place] 2022-05-19 2022-05-19 Patient MARQUIS Burroughs 1.2.840.114 [id number] Univers 00:00:00 00:00:00 Outreach Alexandra Mirtha ALEJANDROY 350.1.13.10 i ty [place] [id number] [facility] [address] [place] 2022-05-14 2022-05-14 Outpatient R FAILGARRICK, [facility] [id number] Univers 13:30:00 14:58:51 MAGALY [facility] 2022-05-14 2022-05-14 Office [facility] 1.2.646.460 [id number] Univers 13:30:00 14:58:51 Visit Magaly SPECIALTY 350.1.13.10 [place] [id number] Ut dical VICTORY [address] [place] [address] 2022-05-14 2022-05-14 Patient MARQUIS Burroughs 1.2.840.114 [id number] Univers 00:00:00 00:00:00 Outreach Alexandra E SAMUEL 350.1.13.10 i [place] [id number] [facility] [address] [place] 2022-05-09 2022-05-09 Patient Robyn Canas 1.2.840.114 [id number] Univers 00:00:00 00:00:00 Outreach E SAMUEL 350.1.13.10 i [place] [id number] [facility] [address] [place] 2022-05-08 2022-05-08 Outpatient SFA [facility] [id number] 023 [place] 08:53:04 08:53:04 0209 F Jaya 2022-05-07 2022-05-07 Outpatient R JAGJIT ROJAS [facility] [id number] Univers 14:00:00 14:00:00 [facility] 2022-04-29 2022-04-29 Outpatient R [facility] [id number] Univers 09:19:35 23:59:00 [facility]ID [facility] 2022-04-29 2022-04-29 [facility] 1.2.582.154 [id number] Univers 09:19:35 23:59:00 Encounter Rashid A PRIMARY 350.1.13.10 [place] [id number] Ut dical [address] [place] 2022-04-29 2022-04-29 Office [facility] 1.2.840.114 [id number] Univers 09:00:00 09:57:51 Visit Rashid A PRIMARY 350.1.13.10 it [place] [id number] Ut dical [address] [place] 2022-04-29 2022-04-29 Orders Doctor MCKENZIE 1.2.840.114 [id number] Univers 00:00:00 00:00:00 Only Unassigned, ALEXANDER 350.1.13.10 ity of [place] [facility] 4.2.7.2.686 Jay as [id number] [facility] 009 Branch 2022-04-23 2022-04-23 Outpatient R REX [facility] [id number] Univers 09:10:00 10:22:36 [facility] 2022-04-23 2022-04-23 Office [email or web address] 1.2.187.305 [id number] Univers 09:10:00 10:22:36 Visit Magaly PERALES 350.1.13.10 [place] AT [phone] [facility] 198 [facility] 2022-04-10 2022-04-10 Transition MARQUIS Rincon 1.2.840.114 [id number] Univers 00:00:00 00:00:00 of Care Tatiana SAMUEL 350.1.13.10 [place] [id number] [facility] [address] [place] 2022-04-08 2022-04-08 Transition MARQUIS Rincon 1.2.840.114 [id number] Univers 00:00:00 00:00:00 of Care Tatiana SAMUEL 350.1.13.10 [place] [id number] [facility] [address] [place] 2022-03-27 2022-04-07 Inpatient X ZANDRA [facility] [id number] Univers 13:25:00 20:10:00 [facility] 2022-03-27 2022-04-07 Hospital Jeromy Daigle 1.2.840. 114 [id number] Univers 13:25:00 20:10:00 Encounter Parish Grimes 350.1.1 3.10 ity of Azucena Lawrence [facility] 4.2.7.2.686 Bunny Quiñonez [id number] Medical 094 Branch 2022-04-02 2022-04-02 Surgery LACEY Braun 1.2.840.114 [id number] Univers 14:05:00 15:30:00 Rashid A ALEXANDER 350.1.13.10 it y of HOSPITAL 4.2.7.2.686 Jay as [phone] [facility] [address] [place] 2022-04-01 2022-04-01 Outpatient R YOBANI [facility] [id number] Univers 13:15:00 13:15:00 RASHID ity of [facility] 2022-03-28 2022-03-28 Anesthesia Polo Mulligan LACEY 1.2.840.1 14 [id number] Univers 16:41:00 19:05:00 Event KoJiJs ALEXANDER 350.1. 13.10 ity of [facility] 4.2.7.2.686 Jay as [id number] [facility] [address] [place] 2022-03-28 2022-03-28 Surgery LACEY Braun 1.2.840.114 [id number] Univers 14:55:00 17:34:00 Rashid A ALEXANDER 350.1.13.10 it y of HOSPITAL 4.2.7.2.686 Jay as [id number] [facility] [address] [place] 2022-03-27 2022-03-27 Outpatient [facility] [id number] 022 [place] 09:29:32 09:29:32 1229 F [place] 2022-03-27 2022-03-27 Outpatient [id number]- [id number] 1c [id number]-1 00:00:00 00:00:00 Visit 3508-2256 528-4395-8 -847a-c96 47a-[id number] 145e78 2022-03-27 2022-03-27 Telephone [email or web address] 1.2.840.114 [id number] Univers 00:00:00 00:00:00 Rashid A PRIMARY 350.1.13.10 [place] [id number] Ut dictx [address] [place] 2022-03-18 2022-03-18 Outpatient [facility] [id number] [place] 14:58:49 14:58:49 1220 F Jaya 2022-03-18 2022-03-18 Outpatient [id number]- [id number] 00:00:00 00:00:00 Visit 29be-49f6 9be-49f6-9 -3e35-n33 [id number] 2022-03-14 2022-03-14 Transition MARQUIS Rincon 1.2.840.114 [id number] Univers 00:00:00 00:00:00 of Care Tatiana SAMUEL 350.1.13.10 ity of [place] 438.6720324 [facility] shade 403 Branch 2022-03-04 2022-03-13 Inpatient [facility] [id number] Univers 16:52:00 18:01:00 [facility]AJ [facility] 2022-03-04 2022-03-13 Hospital Bunny De Paz 1.2.840.1 14 [id number] Univers 16:52:00 18:01:00 [facility] Dheeraj Barrios 350.1.13 .10 ity of [facility] 4.2.7.2.686 Jay as [phone] Medi shade 093 Branch 2022-03-13 2022-03-13 Anesthesia Franklyn Sesay 1.2.840.1 14 [id number] Univers 10:02:00 12:15:00 Event Fede Gordon 350.1.13.10 ity of [facility] 4.2.7.2.686 Jay as 137.8711254 Medi shade 103 Branch 2022-03-13 2022-03-13 Surgery LACEY Foote 1.2.849.012 [id number] Univers 09:31:00 11:09:00 Magaly MUNOZ 350.1.13.10 it y of HOSPITAL 4.2.7.2.686 Jay as 337.7090989 Medi shade 103 Branch 2022-03-09 2022-03-09 Anesthesia Behzad Williamson 1.2.840.1 [id number] Univers 16:26:14 16:26:14 Event 95151.1.1 ity of 3.104.2.7 [place] .3.298731 Medica l .8 Branch 2022-03-07 2022-03-07 Anesthesia Sriram Cobian 1.2.840.1 [id number] Univers 07:15:00 09:05:00 Event 03852.1.1 ity of 3.104.2.7 [place] .3.545588 Medica l .8 Branch 2022-03-07 2022-03-07 Surgery Nereida, 1.2.840.5 [id number] Univers 06:55:00 09:03:00 Bryan 26292.1.1 ity of 3.104.2.7 [place] .3.806323 Medica l .8 [place] 2022-03-05 2022-03-05 Outpatient Anahi FOOTE [facility] [id number] Univers 10:50:00 10:50:00 MAGALY ity of [facility] 2022-03-05 2022-03-05 Telephone Faillace, 1.2.840.4 [id number] Univers 00:00:00 00:00:00 Magaly 81649.1.1 ity of 3.104.2.7 [place] .3.824295 Medica l .8 [place] 2022-03-05 2022-03-[address] 1.2.840.7 [id number] Univers 00:00:00 00:00:00 Management Care 51225.1.1 i ty of Transition 3.104.2.7 Jay as .3.475387 Medica l .8 [place] 2022-03-04 2022-03-04 Travel 1.2.840.1 1.2.319.674 [id number] Univers 00:00:00 00:00:00 42492.1.1 350.1.13.10 ity of 3.104.2.7 [place].3.698 [place] .3.173774 084.8 Medica l .8 [place] 2022-02-27 2022-02-27 Outpatient SOL [facility] [id number] 022 [place] 11:40:20 11:40:20 1201 F Jaya 2022-02-26 2022-02-26 Jagjit Kyle 1.2.840.4 [id number] Univers 00:00:00 00:00:00 (Out) Aren 42494.1.1 ity of 3.104.2.7 [place] .3.146699 Medica l .8 [place] 2022-02-12 2022-02-12 Outpatient R FAILGARRICK, [facility] [id number] Univers 10:10:00 10:35:28 [facility] 2022-02-12 2022-02-12 Office Faillace, 1.2.840.0 [id number] Univers 10:10:00 10:35:28 Visit Magaly 44542.1.1 ity of 3.104.2.7 [place] .3.934752 Medica l .8 [place] 2022-02-12 2022-02-12 Travel 1.2.840.1 1.2.780.140 2700 9532 Univers 00:00:00 00:00:00 67638.1.1 350.1.13.10 ity of 3.104.2.7 4[place].7.3.698 [place] .3.423487 084.8 Medica l .8 [place] 2022-02-05 2022-02-05 Emergency X MAXSHAKILA, [facility] ERT [id number] Univers 16:19:00 22:45:00 ELVIA [facility] 2022-02-05 2022-02-05 Emergency Kashakila, 1.2.840.6 [id number] Univers 16:19:00 22:45:00 Elvia Caraballo 53338.1.1 i ty of 3.104.2.7 [place] .3.772968 Medica l .8 [place] 2022-02-05 2022-02-05 Travel 1.2.840.1 1.2.815.087 3914 [id number] Univers 00:00:00 00:00:00 05421.1.1 350.1.13.10 ity of 3.104.2.7 4.[place].7.3.698 [place] .3.995259 084.8 Medica l .8 [place] 2022-02-04 2022-02-04 Outpatient SFA SFA [id number] 022 [place] 14:32:55 14:32:55 1108 F Jaya 2022-02-04 2022-02-04 Outpatient [id number]- [id number] 6c 6739ae-[id number] 00:00:00 00:00:00 Visit 7583-0586 965-4646-a -ec66-h86 q44-b84ipo [id number] 3734-10-18 2022-01-14 Emergency X YARIMA, [facility] ERT [id number] Univers 11:43:00 13:30:00 WAKILI ity of [facility] 2022-01-14 2022-01-14 Emergency Yarima, 1.2.840.1 [id number] Univers 11:43:00 13:30:00 Miky S 33930.1.1 ity of 3.104.2.7 [place] .3.806109 Medica l .8 [place] 2022-01-14 2022-01-14 Travel 1.2.840.1 1.2.736.902 [id number] Univers 00:00:00 00:00:00 52927.1.1 350.1.13.10 ity of 3.104.2.7 4.2.7.3.698 [place] .3.533052 084.8 Medica l .8 [place] 2021-12-25 2021-12-25 Emergency X WARREN, [facility] ERT [id number] Univers 09:09:00 13:30:00 LOUIE ity of [facility] 2021-12-25 2021-12-25 Emergency Warren, 1.2.840.9 [id number] Univers 09:09:00 13:30:00 Louie 36415.1.1 ity of 3.104.2.7 [place] .3.682180 Medica l .8 [place] 2021-11-07 2021-11-07 Outpatient [id number]- [id number] [id number]-7 00:00:00 00:00:00 Visit 12ef-4933 2ef-4933-9 -912d-2be 12d-2be2c6 5y6077lrg 215abf 2021-06-03 2021-06-03 Patient MARQUIS Burroughs 1.2.840.114 [id number] Univers 00:00:00 00:00:00 Outreach Alexandra E SAMUEL 350.1.13.10 i [place] [id number] [place] [address] Branch 2021-04-04 2021-04-04 Patient MARQUIS Burroughs 1.2.840.114 [id number] Univers 00:00:00 00:00:00 Outreach Alexandra E SAMUEL 350.1.13.10 i [place] [id number] [place] [address] Branch 2021-02-13 2021-02-13 Patient MARQUIS Burroughs 1.2.840.114 [id number] Univers 00:00:00 00:00:00 Outreach Alexandra E SAMUEL 350.1.13.10 i [place] [id number] [place] [address] Branch 2021-01-11 2021-01-11 Patient Marquis Burroughs 1.2.840.114 [id number] Univers 00:00:00 00:00:00 Outreach Alexandra E Samuel 350.1.13.10 i ty of [place].2.[place] [id number] [place] [address] Branch 2020-12-10 2020-12-10 Patient Marquis Burroughs 1.2.840.114 [id number] Univers 00:00:00 00:00:00 Outreach Alexandra E Samuel 350.1.13.10 i ty of [place] 378.2871956 [place] [address] Branch 2020-10-31 2020-10-31 Patient Marquis Burroughs 1.2.840.114 [id number] Univers 00:00:00 00:00:00 Outreach Alexandra E Samuel 350.1.13.10 i ty of [place] 106.0617749 [place] [address] Branch 2020-09-18 2020-09-18 Patient Marquis Burroughs 1.2.840.114 [id number] Univers 00:00:00 00:00:00 Outreach Alexandra E Samuel 350.1.13.10 i [place] [id number] [address] 2020-08-03 2020-08-03 Patient Marquis Burroughs 1.2.840.114 [id number] Univers 00:00:00 00:00:00 Outreach Alexandra E Samuel 350.1.13.10 i [place] [id number] [address] 2020-07-17 2020-07-17 Office [facility] 1.2.840.114 [id number] [facility] 08:48:00 09:50:16 Visit Yadira Ann 350.1.13.10 ity [place] [id number] [address] 2020-07-17 2020-07-17 [facility] [id number] [facility] 09:00:00 09:00:00 YADIRA siu [facility] 2020-07-12 2020-07-12 Patient Marquis Burroughs 1.2.840.114 [id number] Univers 00:00:00 00:00:00 Outreach Alexandra E Samuel 350.1.13.10 i ty [place] [id number] [address] 2020-06-18 2020-06-18 Outpatient R FANW [facility] [id number] Univers 09:30:00 09:30:00 [facility] 2020-06-15 2020-06-15 Office [facility] 1.2.840.114 [id number] [facility] 08:34:05 10:34:19 Visit Yadira Ann 350.1.13.10 ity of [place].2.[place] [id number] [address] 2020-06-15 2020-06-15 Outpatient R [facility] [id number] [facility] 08:30:00 08:30:00 YADIRA siu [facility] 2020-04-12 2020-04-12 Patient Marquis Burroughs 1.2.840.114 [id number] [employer] 00:00:00 00:00:00 Outreach Alexandra E Samuel [id number] [place] [phone] [address] 2020-03-13 2020-03-13 Office [facility] 1.2.840.114 [id number] [employer] 09:13:42 11:04:48 Visit Yadira [place] 350.1.13.10 [place] [phone] [address] 2020-03-13 2020-03-13 Outpatient [facility] [id number] [facility] 10:15:00 10:15:00 YADIRA siu [facility] 2020-03-09 2020-03-09 Patient Marquis Burroughs 1.2.840.114 [id number] [employer] 00:00:00 00:00:00 Outreach Alexandra E Samuel [id number] [phone] [address] 2020-02-10 2020-02-10 Office [facility] 1.2.840.114 [id number] [employer] 08:49:26 10:05:10 Visit Yadira [place] 350.1.13.10 [place] 4[place] [phone] [address] 2020-02-10 2020-02-10 Outpatient [facility] [id number] [employer] 09:15:00 09:15:00 YADIRA siu [facility] 2020-02-07 2020-02-07 Patient Marquis Burroughs 1.2.840.114 [id number] [employer] 00:00:00 00:00:00 Outreach Alexandra E Samuel 350.1.13.10 [place] [phone] [address] 2020-01-13 2020-01-13 Office [facility] 1.2.840.114 [id number] [employer] 08:44:53 10:04:55 Visit Yadira Ann 350.1.13.10 [place] [phone] [address] 2020-01-13 2020-01-13 Outpatient [facility] [id number] [employer] 09:00:00 09:00:00 YADIRA siu [facility] 2020-01-12 2020-01-12 Patient Marquis Burroughs 1.2.840.114 [id number] [facility] 00:00:00 00:00:00 Outreach Alexandra E Samuel 350.1.13.10 [place] [phone] [address] 2020-01-12 2020-01-12 Patient Marquis Burroughs 1.2.840.114 [id number] [facility] 00:00:00 00:00:00 Outreach Alexandra E Samuel 350.1.13.10 [place] [phone] [address] 2020-01-11 2020-01-11 Patient Marquis Burroughs 1.2.840.114 [id number] [employer] 00:00:00 00:00:00 Outreach Alexandra E Samuel 350.1.13.10 [place] [id number] [address] 2020-01-06 2020-01-06 Outpatient [facility] [id number] [employer] 10:45:00 10:45:00 YADIRA siu [facility] 2020-01-06 2020-01-06 Patient Marquis Burroughs 1.2.840.114 [id number] [facility] 00:00:00 00:00:00 Outreach Alexandra E Samuel 350.1.13.10 i ty of [phone] [address] 2020-01-04 2020-01-04 Transition Marquis Rincon 1.2.840.114 [id number] Univers 00:00:00 00:00:00 of Care Tatiana Samuel 350.1.13.10 [place] [id number] [address] 2019-12-28 2019-12-28 Telephone [facility] 1.2.840.114 [id number] Univers 00:00:00 00:00:00 Yadira Ann 350.1.13.10 [place] of [place] [phone] [facility] 205 [facility] 2019-12-23 2019-12-23 Telephone [email or web address] 1.2.840.114 [id number] Univers 00:00:00 00:00:00 Francisco Ann 350.1.13.10 i [place] [phone] [facility] 0[address] [facility] 2019-12-22 2019-12-22 Patient Robyn Canas Marquis 1.2.840.114 [id number] Univers 00:00:00 00:00:00 Outreach E Samuel 350.1.13.10 [place] [id number] [address] 2019-12-21 2019-12-21 Patient Kam [facility] 1.2.840.114 [id number] Univers 00:00:00 00:00:00 Outreach Paula [facility] 350.1.13.10 i ty of [place] 4.2.7.2.686 [place] Professio [phone] [facility] [address] 2019-12-21 2019-12-21 Patient Marquis Burroughs 1.2.840.114 [id number] Univers 00:00:00 00:00:00 Outreach Alexandra E Samuel 350.1.13.10 i [place] [phone] [facility] [address] 2019-12-20 2019-12-20 Office [facility] 1.2.840.114 [id number] Univers 15:39:02 16:36:37 Visit Francisco Ann 350.1.13.10 i [place] [phone] Ut dical [facility] 044 [facility] 2019-12-20 2019-12-20 Office [facility] 1.2.840.114 [id number] Univers 09:47:52 10:57:49 Visit Yadira Ann 350.1.13.10 it[place] of [place] [phone] Ut dical nal 205 [facility] 2019-12-20 2019-12-20 Outpatient R [facility] [id number] Univers 10:15:00 10:15:00 YADIRA cosme o f [facility] 2019-12-20 2019-12-20 Orders Doctor MAGALY 1.2.840.114 [id number] Univers 00:00:00 00:00:00 Only Unassigned, ALEXANDER 350.1.13.10 ity of [place] [facility] 4.2.7.2.686 Jay as [phone] [facility] [address] 2019-12-11 2019-12-11 Telephone [facility] 1.2.840.114 [id number] Univers 00:00:00 00:00:00 Yadira Ann 350.1.13.10 ity of [place] [phone] Ut dical nal 205 [facility] 2019-12-08 2019-12-08 Transition Marquis Rincon 1.2.840.114 [id number] Univers 00:00:00 00:00:00 of Care Tatiana Samuel 350.1.13.10 [place] [id number] [facility] [address] 2019-11-25 2019-12-07 Hospital Miky Fajardo Lacey 1.2.840. 114 [id number] Univers 20:29:00 20:07:00 Encounter Sai Lomas 350.1.1 3.10 ity of [facility] 4.2.7.2.686 [place] [phone] [facility] [address] 2019-11-30 2019-11-30 Transition Marquis Rincon 1.2.840.114 [id number] Univers 00:00:00 00:00:00 of Care Tatiana Samuel 350.1.13.10 [place] [phone] [facility] [address] 2019-11-25 2019-11-25 Emergency X MIKE [facility] ERT [id number] Univers 20:29:00 20:29:00 [facility] 2019-11-25 2019-11-25 Orders Doctor MAGALY 1.2.840.114 [id number] Univers 00:00:00 00:00:00 Only Unassigned, ALEXANDER 350.1.13.10 ity of [place] [facility] 4.2.7.2.686 [place] as [phone] [facility] [address] 2018-12-03 2018-12-03 Patient Manjeet Marquis 1.2.840.114 [id number] Univers 00:00:00 00:00:00 Outreach Alexandra E Samuel 350.1.13.10 i [place] [phone] [facility] [address] 2018-12-03 2018-12-03 Patient Robyn Canassam 1.2.840.114 [id number] Univers 00:00:00 00:00:00 Outreach E Samuel 350.1.13.10 i [place] [phone] [address] Results Test Description Test Time Test Comments Results Result Comments Source C-REACTIVE PROTEIN 2022-06-07 17:16:05 Test Item Value Reference Range Interpretation Comme nts CRP (test code = 8552410984) 2.8 mg/dL <=0.8 H Lab Interpretation (test code = 65742-3) [facility]normal [facility] [id number] 13:03:00 Test Item Value Reference Range Interpretation Comments ESR (test code = 97 See_Comment H [Automated message] 08254-8) The system [employer] generated this result transmitted ref erence range: 2 - 30 m m/HR. The reference r neno was not used to interpret this result as normal/abnor mal. Lab Interpretation (test Abnormal code = 31805-5) [facility]. METABOLIC PANEL (76480)2022-06-07 12:49:01 Test Item Value Reference Range Interpretation Comments NA (test code = 136 mmol/L 135-145 7896707251) K (test code = 3.7 mmol/L 3.5-5.0 7834970838) CL (test code = 102 mmol/L 98-108 8848110588) CO2 TOTAL (test code = 30 mmol/L 23-31 3840588278) AGAP (test code = 4 2-16 0480513941) BUN (test code = 9 mg/dL 7-23 1879700862) GLUCOSE (test code = 137 mg/dL 70-110 H 8298038183) CREATININE (test code = 0.79 mg/dL 0.60-1.25 6461130870) TOTAL BILI (test code = 0.5 mg/dL 0.1-1.2 1605902964) CALCIUM (test code = 8.0 mg/dL 8.6-10.6 L 5354081969) T PROTEIN (test code = 5.8 g/dL 6.3-8.2 L 4681167017) ALBUMIN (test code = 2.8 g/dL 3.5-5.0 L 7157183755) ALK PHOS (test code = 153 U/L 34-122 H 3902114196) ALTv (test code = 15 U/L 5-50 1742-6) AST(SGOT) (test code = 17 U/L 13-40 3696764600) eGFR (test code = 100.7 mL/min/1.73m2 3027934504) LUIS (test code = LUIS) Association of [...] tests). Lab Interpretation Abnormal (test code = 96039-5) [facility] / [id number] 12:46:20 Test Item Value Reference Range Interpretation Comments PROTIME PATIENT (test 13.3 See_Comment H [Auto mated message] code = 5964-2) The system [facility] generated this result transmitted ref erence range: 10.1 - 1 2.6 Seconds. The reference range was not used to int erpret this result as normal/abnormal . INR (test code = 6301-6) 1.2 Nor mal INR <1.1; Warfarin Therap eutic range 2.0 to 3. 0 or 2.5 to 3.5, dep ending upon the indica tions. Lab Interpretation (test Abnormal code = 41659-1) [facility] 12:46:20 Test Item Value Reference Range Interpretation Comments APTT Patient (test code = 30 See_Comment [ Automated message] 3173-2) The system [employer] generated this result transmitted ref erence range: 26 - 36 Seconds. The re ference range was not u sed to interpret this result as normal/abnor mal. Lab Interpretation (test Normal code = 04718-4) [facility] WITH [id number] 12:35:18 Test Item Value Reference Range Interpretation Comments WBC (test code = 6.86 See_Comment [Automated 6690-2) message] The sy stem which generated this result transmitted reference range : 4.20 - 10.70 10*3/?L. The reference range was not used to interpret this result as normal/abnormal . RBC (test code = 3.05 See_Comment L [Automated 789-8) message] The sy stem which generated this result transmitted reference range : 4.26 - 5.52 10*6/?L. The reference range was not used to interpret this result as normal/abnormal . HGB (test code = 8.4 g/dL 12.2-16.4 L 718-7) HCT (test code = 24.6 % 38.4-49.3 L 4544-3) MCV (test code = 80.7 fL 81.7-95.6 L 787-2) MCH (test code = 27.5 pg 26.1-32.7 785-6) MCHC (test code = 34.1 g/dL 31.2-35.0 786-4) RDW-SD (test code = 40.9 fL 38.5-51.6 58602-5) RDW-CV (test code = 13.9 % 12.1-15.4 788-0) PLT (test code = 293 See_Comment [Automated 777-3) message] The sy stem which generated this result transmitted reference range : 150 - 328 10*3/ ?L. The reference r neno was not used to interpret this result as normal/abnormal . MPV (test code = 9.1 fL 9.8-13.0 L 75093-9) NRBC/100 WBC (test 0.0 See_Comment [Automat ed code = 7043936164) message] The system which generated this result transmitted reference range : 0.0 - 10.0 /100 WBCs. The refer ence range was not u sed to interpret th is result as normal/abnormal . NRBC x10^3 (test code See_Comment [Auto mated = 1614708229) message] The s ystem which generated this result transmitted reference range : 10*3/?L. The reference range was not used to interpret this result as normal/abnormal . GRAN MAT (NEUT) % 63.7 % (test code = 770-8) IMM GRAN % (test code 0.10 % = 3142348183) LYMPH % (test code = 24.9 % 736-9) MONO % (test code = 8.0 % 5905-5) EOS % (test code = 2.6 % 713-8) BASO % (test code = 0.7 % 706-2) GRAN MAT x10^3(ANC) 4.36 10*3/uL 1.99-6.95 (test code = 7778660893) IMM GRAN x10^3 (test 0.00-0.06 code = 5521325117) LYMPH x10^3 (test code 1.71 10*3/uL 1.09-3.23 = 731-0) MONO x10^3 (test code 0.55 10*3/uL 0.36-1.02 = 742-7) EOS x10^3 (test code = 0.18 10*3/uL 0.06-0.53 711-2) BASO x10^3 (test code 0.05 10*3/uL 0.01-0.09 = 704-7) Lab Interpretation Abnormal (test code = 05965-7) [facility] GLUCOSE (AUTOMATED)2022-04-07 22:34:14 Test Item Value Reference Range Interpretation Comments POCT GLU (test code = 0651467784) 147 mg/dL 70-110 H Lab Interpretation (test code = Abnormal 09753-5) [facility] GLUCOSE (AUTOMATED)2022-04-07 17:33:17 Test Item Value Reference Range Interpretation Comments POCT GLU (test code = 4666742038) 167 mg/dL 70-110 H Lab Interpretation (test code = Abnormal 35308-6) [facility] GLUCOSE (AUTOMATED)2022-04-07 14:46:02 Test Item Value Reference Range Interpretation Comments POCT GLU (test code = 3799540815) 122 mg/dL 70-110 H Lab Interpretation (test code = Abnormal 40378-5) [facility] GLUCOSE (AUTOMATED)2022-04-07 03:45:01 Test Item Value Reference Range Interpretation Comments POCT GLU (test code = 4852816788) 154 mg/dL 70-110 H Lab Interpretation (test code = Abnormal 72370-5) [facility] IRON BINDING [id number] 02:29:29 Test Item Value Reference Range Interpretation Comments TIBC (test code = 8685045208) 229 ug/dL 250-410 L Lab Interpretation (test code = Abnormal 97490-6) [facility] GLUCOSE (AUTOMATED)2022-04-06 22:56:01 Test Item Value Reference Range Interpretation Comments POCT GLU (test code = 1589259424) 151 mg/dL 70-110 H Lab Interpretation (test code = Abnormal 99911-4) [facility] GLUCOSE (AUTOMATED)2022-04-06 18:47:15 Test Item Value Reference Range Interpretation Comments POCT GLU (test code = 1317306337) 143 mg/dL 70-110 H Lab Interpretation (test code = Abnormal 11863-1) [facility] GLUCOSE (AUTOMATED)2022-04-06 16:13:30 Test Item Value Reference Range Interpretation Comments POCT GLU (test code = 5217529628) 174 mg/dL 70-110 H Lab Interpretation (test code = Abnormal 75391-5) [facility] GLUCOSE (AUTOMATED)2022-04-06 04:48:48 Test Item Value Reference Range Interpretation Comments POCT GLU (test code = 8852168708) 125 mg/dL 70-110 H Lab Interpretation (test code = Abnormal 21866-0) [facility] GLUCOSE (AUTOMATED)2022-04-05 22:58:05 Test Item Value Reference Range Interpretation Comments POCT GLU (test code = 4730617768) 166 mg/dL 70-110 H Lab Interpretation (test code = Abnormal 90407-2) [facility] GLUCOSE (AUTOMATED)2022-04-05 19:24:46 Test Item Value Reference Range Interpretation Comments POCT GLU (test code = 0208254340) 187 mg/dL 70-110 H Lab Interpretation (test code = Abnormal 59243-0) [facility] GLUCOSE (AUTOMATED)2022-04-05 18:44:47 Test Item Value Reference Range Interpretation Comments POCT GLU (test code = 3861153582) 188 mg/dL 70-110 H Lab Interpretation (test code = Abnormal 29324-1) [facility] GLUCOSE (AUTOMATED)2022-04-05 15:44:16 Test Item Value Reference Range Interpretation Comments POCT GLU (test code = 9887838560) 137 mg/dL 70-110 H Lab Interpretation (test code = Abnormal 29550-5) [facility] GLUCOSE (AUTOMATED)2022-04-05 03:34:11 Test Item Value Reference Range Interpretation Comments POCT GLU (test code = 4525453207) 159 mg/dL 70-110 H Lab Interpretation (test code = Abnormal 24694-7) [facility] GLUCOSE (AUTOMATED)2022-04-04 22:20:10 Test Item Value Reference Range Interpretation Comments POCT GLU (test code = 7385383843) 192 mg/dL 70-110 H Lab Interpretation (test code = Abnormal 70126-7) [facility] GLUCOSE (AUTOMATED)2022-04-04 17:35:55 Test Item Value Reference Range Interpretation Comments POCT GLU (test code = 6287404428) 160 mg/dL 70-110 H Lab Interpretation (test code = Abnormal 86077-1) [facility] GLUCOSE (AUTOMATED)2022-04-04 14:50:34 Test Item Value Reference Range Interpretation Comments POCT GLU (test code = 8789347555) 164 mg/dL 70-110 H Lab Interpretation (test code = Abnormal 29427-6) [facility] GLUCOSE (AUTOMATED)2022-04-04 03:55:18 Test Item Value Reference Range Interpretation Comments POCT GLU (test code = 7503822657) 155 mg/dL 70-110 H Lab Interpretation (test code = Abnormal 96180-8) [facility] GLUCOSE (AUTOMATED)2022-04-03 23:12:46 Test Item Value Reference Range Interpretation Comments POCT GLU (test code = 2663582405) 157 mg/dL 70-110 H Lab Interpretation (test code = Abnormal 94900-0) [facility] GLUCOSE (AUTOMATED)2022-04-03 17:37:20 Test Item Value Reference Range Interpretation Comments POCT GLU (test code = 5394187326) 139 mg/dL 70-110 H Lab Interpretation (test code = Abnormal 73630-8) [facility] GLUCOSE (AUTOMATED)2022-04-03 17:37:20 Test Item Value Reference Range Interpretation Comments POCT GLU (test code = 9699222034) 139 mg/dL 70-110 H Lab Interpretation (test code = Abnormal 50725-5) [facility] GLUCOSE (AUTOMATED)2022-04-03 14:50:20 Test Item Value Reference Range Interpretation Comments POCT GLU (test code = 6939140993) 132 mg/dL 70-110 H Lab Interpretation (test code = Abnormal 01172-1) [facility] GLUCOSE (AUTOMATED)2022-04-03 14:50:20 Test Item Value Reference Range Interpretation Comments POCT GLU (test code = 9512219661) 132 mg/dL 70-110 H Lab Interpretation (test code = Abnormal 58866-9) [facility] GLUCOSE (AUTOMATED)2022-04-03 03:35:23 Test Item Value Reference Range Interpretation Comments POCT GLU (test code = 2140608367) 102 mg/dL 70-110 Lab Interpretation (test code = Normal 95979-0) [facility] GLUCOSE (AUTOMATED)2022-04-03 03:35:23 Test Item Value Reference Range Interpretation Comments POCT GLU (test code = 8438609792) 102 mg/dL 70-110 Lab Interpretation (test code = Normal 08333-1) [facility] GLUCOSE (AUTOMATED)2022-04-03 00:28:12 Test Item Value Reference Range Interpretation Comments POCT GLU (test code = 5210279209) 114 mg/dL 70-110 H Lab Interpretation (test code = Abnormal 30490-9) [facility] GLUCOSE (AUTOMATED)2022-04-03 00:28:12 Test Item Value Reference Range Interpretation Comments POCT GLU (test code = 9502448816) 114 mg/dL 70-110 H Lab Interpretation (test code = Abnormal 06454-4) [facility] GLUCOSE (AUTOMATED)2022-04-02 18:07:54 Test Item Value Reference Range Interpretation Comments POCT GLU (test code = 7021142209) 135 mg/dL 70-110 H Lab Interpretation (test code = Abnormal 59406-2) [facility] GLUCOSE (AUTOMATED)2022-04-02 18:07:54 Test Item Value Reference Range Interpretation Comments POCT GLU (test code = 8235270346) 135 mg/dL 70-110 H Lab Interpretation (test code = Abnormal 78361-6) [facility] GLUCOSE (AUTOMATED)2022-04-02 14:57:12 Test Item Value Reference Range Interpretation Comments POCT GLU (test code = 3700707689) 129 mg/dL 70-110 H Lab Interpretation (test code = Abnormal 22451-0) [facility] GLUCOSE (AUTOMATED)2022-04-02 14:57:12 Test Item Value Reference Range Interpretation Comments POCT GLU (test code = 6676622069) 129 mg/dL 70-110 H Lab Interpretation (test code = Abnormal 30769-6) [facility] GLUCOSE (AUTOMATED)2022-04-02 02:44:11 Test Item Value Reference Range Interpretation Comments POCT GLU (test code = 0066056360) 157 mg/dL 70-110 H Lab Interpretation (test code = Abnormal 32704-1) [facility] GLUCOSE (AUTOMATED)2022-04-02 02:44:11 Test Item Value Reference Range Interpretation Comments POCT GLU (test code = 9467962116) 157 mg/dL 70-110 H Lab Interpretation (test code = Abnormal 16004-6) [facility] GLUCOSE (AUTOMATED)2022-04-01 22:56:32 Test Item Value Reference Range Interpretation Comments POCT GLU (test code = 1505864970) 191 mg/dL 70-110 H Lab Interpretation (test code = Abnormal 30090-3) [facility] GLUCOSE (AUTOMATED)2022-04-01 22:56:32 Test Item Value Reference Range Interpretation Comments POCT GLU (test code = 8009336636) 191 mg/dL 70-110 H Lab Interpretation (test code = Abnormal 33561-3) [facility] GLUCOSE (AUTOMATED)2022-04-01 17:40:17 Test Item Value Reference Range Interpretation Comments POCT GLU (test code = 7445703670) 179 mg/dL 70-110 H Lab Interpretation (test code = Abnormal 52045-7) [facility] GLUCOSE (AUTOMATED)2022-04-01 17:40:17 Test Item Value Reference Range Interpretation Comments POCT GLU (test code = 5032776102) 179 mg/dL 70-110 H Lab Interpretation (test code = Abnormal 67196-1) [facility] GLUCOSE (AUTOMATED)2022-04-01 14:04:00 Test Item Value Reference Range Interpretation Comments POCT GLU (test code = 3324962482) 175 mg/dL 70-110 H Lab Interpretation (test code = Abnormal 12164-3) [facility] GLUCOSE (AUTOMATED)2022-04-01 14:04:00 Test Item Value Reference Range Interpretation Comments POCT GLU (test code = 9293831872) 175 mg/dL 70-110 H Lab Interpretation (test code = Abnormal 93679-1) [facility] GLUCOSE (AUTOMATED)2022-04-01 04:09:44 Test Item Value Reference Range Interpretation Comments POCT GLU (test code = 0789879823) 168 mg/dL 70-110 H Lab Interpretation (test code = Abnormal 40927-4) [facility] GLUCOSE (AUTOMATED)2022-04-01 04:09:44 Test Item Value Reference Range Interpretation Comments POCT GLU (test code = 2196337435) 168 mg/dL 70-110 H Lab Interpretation (test code = Abnormal 71821-5) [facility] GLUCOSE (AUTOMATED)2022-04-01 00:27:42 Test Item Value Reference Range Interpretation Comments POCT GLU (test code = 1979451242) 190 mg/dL 70-110 H Lab Interpretation (test code = Abnormal 17970-5) [facility] GLUCOSE (AUTOMATED)2022-04-01 00:27:42 Test Item Value Reference Range Interpretation Comments POCT GLU (test code = 5484615674) 190 mg/dL 70-110 H Lab Interpretation (test code = Abnormal 58069-2) [facility] GLUCOSE (AUTOMATED)2022-03-31 19:28:43 Test Item Value Reference Range Interpretation Comments POCT GLU (test code = 3820180357) 153 mg/dL 70-110 H Lab Interpretation (test code = Abnormal 73918-6) [facility] GLUCOSE (AUTOMATED)2022-03-31 19:28:43 Test Item Value Reference Range Interpretation Comments POCT GLU (test code = 8263899160) 153 mg/dL 70-110 H Lab Interpretation (test code = Abnormal 42858-7) [facility] GLUCOSE (AUTOMATED)2022-03-31 19:28:43 Test Item Value Reference Range Interpretation Comments POCT GLU (test code = 5455842512) 153 mg/dL 70-110 H Lab Interpretation (test code = Abnormal 04016-3) [facility] GLUCOSE (AUTOMATED)2022-03-31 15:16:11 Test Item Value Reference Range Interpretation Comments POCT GLU (test code = 1690911116) 116 mg/dL 70-110 H Lab Interpretation (test code = Abnormal 45244-0) [facility] GLUCOSE (AUTOMATED)2022-03-31 15:16:11 Test Item Value Reference Range Interpretation Comments POCT GLU (test code = 6734664981) 116 mg/dL 70-110 H Lab Interpretation (test code = Abnormal 57011-7) [facility] GLUCOSE (AUTOMATED)2022-03-31 15:16:11 Test Item Value Reference Range Interpretation Comments POCT GLU (test code = 0260551847) 116 mg/dL 70-110 H Lab Interpretation (test code = Abnormal 55681-2) [facility] GLUCOSE (AUTOMATED)2022-03-31 02:33:02 Test Item Value Reference Range Interpretation Comments POCT GLU (test code = 6115857717) 131 mg/dL 70-110 H Lab Interpretation (test code = Abnormal 58693-4) [facility] GLUCOSE (AUTOMATED)2022-03-31 02:33:02 Test Item Value Reference Range Interpretation Comments POCT GLU (test code = 3624683966) 131 mg/dL 70-110 H Lab Interpretation (test code = Abnormal 56719-8) [facility] GLUCOSE (AUTOMATED)2022-03-31 02:33:02 Test Item Value Reference Range Interpretation Comments POCT GLU (test code = 1629328576) 131 mg/dL 70-110 H Lab Interpretation (test code = Abnormal 26326-2) [facility] GLUCOSE (AUTOMATED)2022-03-31 00:00:13 Test Item Value Reference Range Interpretation Comments POCT GLU (test code = 6828023390) 137 mg/dL 70-110 H Lab Interpretation (test code = Abnormal 33181-4) [facility] GLUCOSE (AUTOMATED)2022-03-31 00:00:13 Test Item Value Reference Range Interpretation Comments POCT GLU (test code = 1538627299) 137 mg/dL 70-110 H Lab Interpretation (test code = Abnormal 42358-3) [facility] GLUCOSE (AUTOMATED)2022-03-31 00:00:13 Test Item Value Reference Range Interpretation Comments POCT GLU (test code = 0649445306) 137 mg/dL 70-110 H Lab Interpretation (test code = Abnormal 94227-5) [facility] GLUCOSE (AUTOMATED)2022-03-30 18:32:07 Test Item Value Reference Range Interpretation Comments POCT GLU (test code = 1752015516) 178 mg/dL 70-110 H Lab Interpretation (test code = Abnormal 04220-5) [facility] GLUCOSE (AUTOMATED)2022-03-30 18:32:07 Test Item Value Reference Range Interpretation Comments POCT GLU (test code = 0664169163) 178 mg/dL 70-110 H Lab Interpretation (test code = Abnormal 58022-4) [facility] GLUCOSE (AUTOMATED)2022-03-30 18:32:07 Test Item Value Reference Range Interpretation Comments POCT GLU (test code = 6356171525) 178 mg/dL 70-110 H Lab Interpretation (test code = Abnormal 16613-1) [facility] GLUCOSE (AUTOMATED)2022-03-30 14:53:39 Test Item Value Reference Range Interpretation Comments POCT GLU (test code = 5670464896) 158 mg/dL 70-110 H Lab Interpretation (test code = Abnormal 80690-4) [facility] GLUCOSE (AUTOMATED)2022-03-30 14:53:39 Test Item Value Reference Range Interpretation Comments POCT GLU (test code = 2998529043) 158 mg/dL 70-110 H Lab Interpretation (test code = Abnormal 11831-4) [facility] GLUCOSE (AUTOMATED)2022-03-30 14:53:39 Test Item Value Reference Range Interpretation Comments POCT GLU (test code = 9642614211) 158 mg/dL 70-110 H Lab Interpretation (test code = Abnormal 21625-0) [facility] GLUCOSE (AUTOMATED)2022-03-30 03:15:36 Test Item Value Reference Range Interpretation Comments POCT GLU (test code = 3044713403) 149 mg/dL 70-110 H Lab Interpretation (test code = Abnormal 50531-6) [facility] GLUCOSE (AUTOMATED)2022-03-30 03:15:36 Test Item Value Reference Range Interpretation Comments POCT GLU (test code = 4824222521) 149 mg/dL 70-110 H Lab Interpretation (test code = Abnormal 39242-8) [facility] GLUCOSE (AUTOMATED)2022-03-30 03:15:36 Test Item Value Reference Range Interpretation Comments POCT GLU (test code = 8316239404) 149 mg/dL 70-110 H Lab Interpretation (test code = Abnormal 50370-4) [facility] GLUCOSE (AUTOMATED)2022-03-29 23:13:05 Test Item Value Reference Range Interpretation Comments POCT GLU (test code = 7929343700) 144 mg/dL 70-110 H Lab Interpretation (test code = Abnormal 09362-8) [facility] GLUCOSE (AUTOMATED)2022-03-29 23:13:05 Test Item Value Reference Range Interpretation Comments POCT GLU (test code = 1204583055) 144 mg/dL 70-110 H Lab Interpretation (test code = Abnormal 01109-2) [facility] GLUCOSE (AUTOMATED)2022-03-29 23:13:05 Test Item Value Reference Range Interpretation Comments POCT GLU (test code = 7446366090) 144 mg/dL 70-110 H Lab Interpretation (test code = Abnormal 89703-5) [facility] 18:49:40 Test Item Value Reference Range Interpretation Comments POCT GLU (test code = 4230405007) 137 mg/dL 70-110 H Lab Interpretation (test code = Abnormal 90857-2) [facility] GLUCOSE (AUTOMATED)2022-03-29 18:49:40 Test Item Value Reference Range Interpretation Comments POCT GLU (test code = 7379834650) 137 mg/dL 70-110 H Lab Interpretation (test code = Abnormal 97157-2) [facility] GLUCOSE (AUTOMATED)2022-03-29 18:49:40 Test Item Value Reference Range Interpretation Comments POCT GLU (test code = 3905449300) 137 mg/dL 70-110 H Lab Interpretation (test code = Abnormal 06547-1) [facility] GLUCOSE (AUTOMATED)2022-03-29 15:21:35 Test Item Value Reference Range Interpretation Comments POCT GLU (test code = 5376727578) 106 mg/dL 70-110 Lab Interpretation (test code = Normal 73167-2) [facility] GLUCOSE (AUTOMATED)2022-03-29 15:21:35 Test Item Value Reference Range Interpretation Comments POCT GLU (test code = 4362328072) 106 mg/dL 70-110 Lab Interpretation (test code = Normal 00244-2) [facility] GLUCOSE (AUTOMATED)2022-03-29 15:21:35 Test Item Value Reference Range Interpretation Comments POCT GLU (test code = 9839728426) 106 mg/dL 70-110 Lab Interpretation (test code = Normal 35176-8) [facility] METABOLIC PANEL (NA, K, CL, CO2, GLUCOSE, BUN, CREATININE, CA)2022-03-29 12:37:53 Test Item Value Reference Range Interpretation Comments NA (test code = 139 mmol/L 135-145 5752281333) K (test code = 3.7 mmol/L 3.5-5.0 Slight 8621058140) hemolysis CL (test code = 108 mmol/L 98-108 1999997088) CO2 TOTAL (test code 23 mmol/L 23-31 = 3480521466) AGAP (test code = 2-16 3968918492) BUN (test code = 15 mg/dL 7-23 Slight 1874621408) hemolysis GLUCOSE (test code = 108 mg/dL 70-110 4234635407) CREATININE (test code 0.76 mg/dL 0.60-1.25 = 5929648280) CALCIUM (test code = 7.6 mg/dL 8.6-10.6 L 6321905894) eGFR (test code = mL/min/1.73m2 3557064617) LUIS (test code = LUIS) Association of [...] tests). Lab Interpretation Abnormal (test code = 71949-0) [facility] Test Item Value Reference Range Interpretation Comments MAGNESIUM (test code = 5459632250) 1.8 mg/dL 1.7-2.4 Lab Interpretation (test code = Normal 46529-8) [facility] (NA, K, CL, CO2, GLUCOSE, BUN, CREATININE, CA)2022-03-29 12:37:53 Test Item Value Reference Range Interpretation Comments NA (test code = 139 mmol/L 135-145 9550456984) K (test code = 3.7 mmol/L 3.5-5.0 Slight 9671291657) hemolysis CL (test code = 108 mmol/L 98-108 7446051981) CO2 TOTAL (test code 23 mmol/L = 0119665543) AGAP (test code = 2-16 4687704540) BUN (test code = 15 mg/dL 7-23 Slight 0717183065) hemolysis GLUCOSE (test code = 108 mg/dL 70-110 7717645856) CREATININE (test code 0.76 mg/dL 0.60-1.25 = 4890776876) CALCIUM (test code = 7.6 mg/dL 8.6-10.6 L 0034178103) eGFR (test code = mL/min/1.73m2 7177596707) LUIS (test code = LUIS) Association of [...] tests). Lab Interpretation Abnormal (test code = 27744-1) [facility] 12:37:53 Test Item Value Reference Range Interpretation Comments MAGNESIUM (test code = 3987162481) 1.8 mg/dL 1.7-2.4 Lab Interpretation (test code = Normal 09469-4) [facility] (NA, K, CL, CO2, GLUCOSE, BUN, CREATININE, CA)2022-03-29 12:37:53 Test Item Value Reference Range Interpretation Comments NA (test code = 139 mmol/L 135-145 0876708822) K (test code = 3.7 mmol/L 3.5-5.0 Slight 4043464468) hemolysis CL (test code = 108 mmol/L 98-108 4006419945) CO2 TOTAL (test code 23 mmol/L 23-31 = 7509280570) AGAP (test code = 2-16 2392315789) BUN (test code = 15 mg/dL 7-23 Slight 5217164966) hemolysis GLUCOSE (test code = 108 mg/dL 70-110 4583364490) CREATININE (test code 0.76 mg/dL 0.60-1.25 = 9617435832) CALCIUM (test code = 7.6 mg/dL 8.6-10.6 L 5955833247) eGFR (test code = mL/min/1.73m2 5858795661) LUIS (test code = LUIS) Association of [...] tests). Lab Interpretation Abnormal (test code = 17788-1) [facility] 12:37:53 Test Item Value Reference Range Interpretation Comments MAGNESIUM (test code = 0949499828) 1.8 mg/dL 1.7-2.4 Lab Interpretation (test code = Normal 78403-6) [facility] WITH [id number] 11:59:47 Test Item Value Reference Range Interpretation [...] RDW-SD (test code = 38.8 fL 38.5-51.6 92406-1) RDW-CV (test code = 12.9 % 12.1-15.4 788-0) PLT (test code = See_Comment [Automated 777-3) message] The sy stem which generated this result transmitted reference range : 150 - 328 10*3/ ?L. The reference r neno was not used to interpret this result as normal/abnormal . MPV (test code = 9.0 fL 9.8-13.0 L 61679-9) NRBC/100 WBC (test See_Comment [Automat ed code = 5803451018) message] The system which generated this result transmitted reference range : 0.0 - 10.0 /100 WBCs. The refer ence range was not u sed to interpret th is result as normal/abnormal . NRBC x10^3 (test code See_Comment [Auto mated = 2044278037) message] The s ystem which generated this result transmitted reference range : 10*3/?L. The reference range was not used to interpret this result as normal/abnormal . GRAN MAT (NEUT) % 73.5 % (test code = 770-8) IMM GRAN % (test code 0.30 % = 3589446777) LYMPH % (test code = 12.0 % 736-9) MONO % (test code = 9.4 % 5905-5) EOS % (test code = 4.4 % 713-8) BASO % (test code = 0.4 % 706-2) GRAN MAT x10^3(ANC) 5.62 10*3/uL 1.99-6.95 (test code = 4061014605) IMM GRAN x10^3 (test 0.00-0.06 code = 8903564140) LYMPH x10^3 (test code 0.92 10*3/uL 1.09-3.23 L = 731-0) MONO x10^3 (test code 0.72 10*3/uL 0.36-1.02 = 742-7) EOS x10^3 (test code = 0.34 10*3/uL 0.06-0.53 711-2) BASO x10^3 (test code 0.03 10*3/uL 0.01-0.09 = 704-7) Lab Interpretation Abnormal (test code = 72258-6) [facility] WITH [id number] 11:59:47 Test Item Value Reference Range Interpretation Comments WBC (test code = See_Comment [Automated 90-2) message] The sy stem which generated this result transmitted reference range : 4.20 - 10.70 10*3/?L. The reference range was not used to interpret this result as normal/abnormal . RBC (test code = See_Comment L [Automated 719-8) message] The sy stem which generated this [...] RDW-SD (test code = 38.8 fL 38.5-51.6 57725-6) RDW-CV (test code = 12.9 % 12.1-15.4 788-0) PLT (test code = See_Comment [Automated 777-3) message] The sy stem which generated this result transmitted reference range : 150 - 328 10*3/ ?L. The reference r neno was not used to interpret this result as normal/abnormal . MPV (test code = 9.0 fL 9.8-13.0 L 66646-8) NRBC/100 WBC (test See_Comment [Automat ed code = 1686072014) message] The system which generated this result transmitted reference range : 0.0 - 10.0 /100 WBCs. The refer ence range was not u sed to interpret th is result as normal/abnormal . NRBC x10^3 (test code See_Comment [Auto mated = 8174186360) message] The s ystem which generated this result transmitted reference range : 10*3/?L. The reference range was not used to interpret this result as normal/abnormal . GRAN MAT (NEUT) % 73.5 % (test code = 770-8) IMM GRAN % (test code 0.30 % = 2828837526) LYMPH % (test code = 12.0 % 736-9) MONO % (test code = 9.4 % 5905-5) EOS % (test code = 4.4 % 713-8) BASO % (test code = 0.4 % 706-2) GRAN MAT x10^3(ANC) 5.62 10*3/uL 1.99-6.95 (test code = 8329384644) IMM GRAN x10^3 (test 0.00-0.06 code = 6044863303) LYMPH x10^3 (test code 0.92 10*3/uL 1.09-3.23 L = 731-0) MONO x10^3 (test code 0.72 10*3/uL 0.36-1.02 = 742-7) EOS x10^3 (test code = 0.34 10*3/uL 0.06-0.53 711-2) BASO x10^3 (test code 0.03 10*3/uL 0.01-0.09 = 704-7) Lab Interpretation Abnormal (test code = 16532-4) [facility] WITH [id number] 11:59:47 Test Item Value Reference Range Interpretation [...] RDW-SD (test code = 38.8 fL 38.5-51.6 01839-6) RDW-CV (test code = 12.9 % 12.1-15.4 788-0) PLT (test code = See_Comment [Automated 777-3) message] The sy stem which generated this result transmitted reference range : 150 - 328 10*3/ ?L. The reference r neno was not used to interpret this result as normal/abnormal . MPV (test code = 9.0 fL 9.8-13.0 L 05695-8) NRBC/100 WBC (test See_Comment [Automat ed code = 5851027896) message] The system which generated this result transmitted reference range : 0.0 - 10.0 /100 WBCs. The refer ence range was not u sed to interpret th is result as normal/abnormal . NRBC x10^3 (test code See_Comment [Auto mated = 1873852868) message] The s ystem which generated this result transmitted reference range : 10*3/?L. The reference range was not used to interpret this result as normal/abnormal . GRAN MAT (NEUT) % 73.5 % (test code = 770-8) IMM GRAN % (test code 0.30 % = 1427596538) LYMPH % (test code = 12.0 % 736-9) MONO % (test code = 9.4 % 5905-5) EOS % (test code = 4.4 % 713-8) BASO % (test code = 0.4 % 706-2) GRAN MAT x10^3(ANC) 5.62 10*3/uL 1.99-6.95 (test code = 1745838917) IMM GRAN x10^3 (test 0.00-0.06 code = 5129958989) LYMPH x10^3 (test code 0.92 10*3/uL 1.09-3.23 L = 731-0) MONO x10^3 (test code 0.72 10*3/uL 0.36-1.02 = 742-7) EOS x10^3 (test code = 0.34 10*3/uL 0.06-0.53 711-2) BASO x10^3 (test code 0.03 10*3/uL 0.01-0.09 = 704-7) Lab Interpretation Abnormal (test code = 70723-2) [facility] GLUCOSE (AUTOMATED)2022-03-29 02:10:36 Test Item Value Reference Range Interpretation Comments POCT GLU (test code = 6171827473) 113 mg/dL 70-110 H Lab Interpretation (test code = Abnormal 88622-7) [facility] GLUCOSE (AUTOMATED)2022-03-29 02:10:36 Test Item Value Reference Range Interpretation Comments POCT GLU (test code = 4690720077) 113 mg/dL 70-110 H Lab Interpretation (test code = Abnormal 72339-9) [facility] GLUCOSE (AUTOMATED)2022-03-29 02:10:36 Test Item Value Reference Range Interpretation Comments POCT GLU (test code = 3014529792) 113 mg/dL 70-110 H Lab Interpretation (test code = Abnormal 14733-2) [facility] GLUCOSE (AUTOMATED)2022-03-28 18:12:11 Test Item Value Reference Range Interpretation Comments POCT GLU (test code = 2581119047) 134 mg/dL 70-110 H Lab Interpretation (test code = Abnormal 83541-9) [facility] GLUCOSE (AUTOMATED)2022-03-28 18:12:11 Test Item Value Reference Range Interpretation Comments POCT GLU (test code = 0614186342) 134 mg/dL 70-110 H Lab Interpretation (test code = Abnormal 33345-6) [facility] GLUCOSE (AUTOMATED)2022-03-28 18:12:11 Test Item Value Reference Range Interpretation Comments POCT GLU (test code = 2406286707) 134 mg/dL 70-110 H Lab Interpretation (test code = Abnormal 98895-6) [facility] GLUCOSE (AUTOMATED)2022-03-28 15:47:56 Test Item Value Reference Range Interpretation Comments POCT GLU (test code = 9188157247) 120 mg/dL 70-110 H Lab Interpretation (test code = Abnormal 79624-7) [facility] GLUCOSE (AUTOMATED)2022-03-28 15:47:56 Test Item Value Reference Range Interpretation Comments POCT GLU (test code = 9449031391) 120 mg/dL 70-110 H Lab Interpretation (test code = Abnormal 82032-5) [facility] GLUCOSE (AUTOMATED)2022-03-28 15:47:56 Test Item Value Reference Range Interpretation Comments POCT GLU (test code = 1377957936) 120 mg/dL 70-110 H Lab Interpretation (test code = Abnormal 86883-2) [facility] [id number] 13:21:37 Test Item Value Reference Range Interpretation Comments ABO & RH (test code O POSITIVE Performe d at [facility] = 20) Laboratory Serv [facility] [address] [facility] s [address]Ljvw Free: [phone] A No. [id number] IAT (test code = Negative Performed a t [facility] 1185) Laboratory [facility] Blood [facility] [place] [address] s [address]Axia Free: [phone] A No. [id number] [facility] [id number] 13:21:37 Test Item Value Reference Range Interpretation Comments ABO & RH (test code O POSITIVE Performe d at [facility] = 20) Laboratory [facility] Blood [facility] [address] [place] [address]Ovuw Free: [phone] A No. [id number] IAT (test code = Negative Performed a t [facility] 1185) Laboratory [facility] Blood [address] [address]Zwjp Free: [phone] A No. [id number] [facility]CE [id number] 13:21:37 Test Item Value Reference Range Interpretation Comments ABO & RH (test code O POSITIVE Performe d at [facility] = 20) Laboratory [facility] Blood [address] s [address]Qgnt Free: [phone] A No. [id number] IAT (test code = Negative Performed a t [facility] 1185) Laboratory [facility] Blood [facility] [address] [place] [address] s [address]Tzye Free: [phone] A No. [id number] [facility] GLUCOSE (AUTOMATED)2022-03-28 05:50:05 Test Item Value Reference Range Interpretation Comments POCT GLU (test code = 2454030121) 116 mg/dL 70-110 H Lab Interpretation (test code = Abnormal 61528-0) [facility] GLUCOSE (AUTOMATED)2022-03-28 05:50:05 Test Item Value Reference Range Interpretation Comments POCT GLU (test code = 4409132607) 116 mg/dL 70-110 H Lab Interpretation (test code = Abnormal 62912-5) [facility] GLUCOSE (AUTOMATED)2022-03-28 05:50:05 Test Item Value Reference Range Interpretation Comments POCT GLU (test code = 0996798537) 116 mg/dL 70-110 H Lab Interpretation (test code = Abnormal 17332-1) [facility] Whole [id number] 23:52:13 Test Item Value Reference Range Interpretation Comments LACTIC ACID (test code = 1.55 mmol/L 0.50-2.20 QUE S 2144380270) Lab Interpretation (test code = Normal 69448-7) [facility] Acid Whole [id number] 23:52:13 Test Item Value Reference Range Interpretation Comments LACTIC ACID (test code = 1.55 mmol/L 0.50-2.20 QUE S 0754081288) Lab Interpretation (test code = Normal 74962-2) [facility] Acid Whole [id number] 23:52:13 Test Item Value Reference Range Interpretation Comments LACTIC ACID (test code = 1.55 mmol/L 0.50-2.20 QUE S 3967676834) Lab Interpretation (test code = Normal 42913-0) [facility] GLUCOSE (AUTOMATED)2022-03-27 23:43:02 Test Item Value Reference Range Interpretation Comments POCT GLU (test code = 9793859792) 143 mg/dL 70-110 H Lab Interpretation (test code = Abnormal 93852-5) [facility] GLUCOSE (AUTOMATED)2022-03-27 23:43:02 Test Item Value Reference Range Interpretation Comments POCT GLU (test code = 2674893236) 143 mg/dL 70-110 H Lab Interpretation (test code = Abnormal 16283-6) [facility] GLUCOSE (AUTOMATED)2022-03-27 23:43:02 Test Item Value Reference Range Interpretation Comments POCT GLU (test code = 8655839889) 143 mg/dL 70-110 H Lab Interpretation (test code = Abnormal 29462-9) [facility] [id number] 20:23:06 Test Item Value Reference Range Interpretation Comments LACTIC ACID (test code = 2.50 mmol/L 0.50-2.20 H 5755715806) Lab Interpretation (test code = Abnormal 73370-0) [facility] Whole [id number] 20:23:06 Test Item Value Reference Range Interpretation Comments LACTIC ACID (test code = 2.50 mmol/L 0.50-2.20 H 7932679602) Lab Interpretation (test code = Abnormal 47183-4) [facility] Whole [id number] 20:23:06 Test Item Value Reference Range Interpretation Comments LACTIC ACID (test code = 2.50 mmol/L 0.50-2.20 H 8029701270) Lab Interpretation (test code = Abnormal 46132-4) [facility] GLUCOSE (AUTOMATED)2022-03-13 22:22:39 Test Item Value Reference Range Interpretation Comments POCT GLU (test code = 4569754232) 177 mg/dL 70-110 H Lab Interpretation (test code = Abnormal 62391-0) [facility] GLUCOSE (AUTOMATED)2022-03-13 22:22:39 Test Item Value Reference Range Interpretation Comments POCT GLU (test code = 0103650811) 177 mg/dL 70-110 H Lab Interpretation (test code = Abnormal 84835-6) [facility] GLUCOSE (AUTOMATED)2022-03-13 21:22:19 Test Item Value Reference Range Interpretation Comments POCT GLU (test code = 6468002232) 169 mg/dL 70-110 H Lab Interpretation (test code = Abnormal 78384-9) [facility] GLUCOSE (AUTOMATED)2022-03-13 21:22:19 Test Item Value Reference Range Interpretation Comments POCT GLU (test code = 4554313790) 169 mg/dL 70-110 H Lab Interpretation (test code = Abnormal 50538-2) [facility] GLUCOSE (AUTOMATED)2022-03-13 15:15:57 Test Item Value Reference Range Interpretation Comments POCT GLU (test code = 1026833517) 114 mg/dL 70-110 H Lab Interpretation (test code = Abnormal 41861-5) [facility] GLUCOSE (AUTOMATED)2022-03-13 15:15:57 Test Item Value Reference Range Interpretation Comments POCT GLU (test code = 5267917908) 114 mg/dL 70-110 H Lab Interpretation (test code = Abnormal 90160-8) [facility]22-[facility]-13 15:07:00 Test Item Value Reference Range Interpretation Comments POCT GLU (test code = 6659564597) 111 mg/dL 70-110 H Lab Interpretation (test code = Abnormal 88176-6) [facility] GLUCOSE (AUTOMATED)2022-03-13 15:07:00 Test Item Value Reference Range Interpretation Comments POCT GLU (test code = 8765913158) 111 mg/dL 70-110 H Lab Interpretation (test code = Abnormal 20615-2) [facility] GLUCOSE (AUTOMATED)2022-03-13 03:45:35 Test Item Value Reference Range Interpretation Comments POCT GLU (test code = 0175492768) 158 mg/dL 70-110 H Lab Interpretation (test code = Abnormal 55478-8) [facility] GLUCOSE (AUTOMATED)2022-03-13 03:45:35 Test Item Value Reference Range Interpretation Comments POCT GLU (test code = 7792327965) 158 mg/dL 70-110 H Lab Interpretation (test code = Abnormal 43479-9) [facility]22-[facility]-12 22:26:10 Test Item Value Reference Range Interpretation Comments POCT GLU (test code = 4205031656) 233 mg/dL 70-110 H Lab Interpretation (test code = Abnormal 84748-8) [facility] GLUCOSE (AUTOMATED)2022-03-12 22:26:10 Test Item Value Reference Range Interpretation Comments POCT GLU (test code = 1330508470) 233 mg/dL 70-110 H Lab Interpretation (test code = Abnormal 71678-0) [facility]2022-[facility]-12 17:45:11 Test Item Value Reference Range Interpretation Comments POCT GLU (test code = 1794872084) 163 mg/dL 70-110 H Lab Interpretation (test code = Abnormal 34573-3) [facility]2022-[facility]-12 17:45:11 Test Item Value Reference Range Interpretation Comments POCT GLU (test code = 4688077898) 163 mg/dL 70-110 H Lab Interpretation (test code = Abnormal 87861-3) [facility] 13:37:28 Test Item Value Reference Range Interpretation Comments POCT GLU (test code = 3167323919) 120 mg/dL 70-110 H Lab Interpretation (test code = Abnormal 60272-5) [facility] 13:37:28 Test Item Value Reference Range Interpretation Comments POCT GLU (test code = 6265345313) 120 mg/dL 70-110 H Lab Interpretation (test code = Abnormal 77856-5) [facility] 02:58:45 Test Item Value Reference Range Interpretation Comments POCT GLU (test code = 2191070010) 208 mg/dL 70-110 H Lab Interpretation (test code = Abnormal 81819-5) [facility] 02:58:45 Test Item Value Reference Range Interpretation Comments POCT GLU (test code = 4975894639) 208 mg/dL 70-110 H Lab Interpretation (test code = Abnormal 20632-4) [facility]11 22:10:24 Test Item Value Reference Range Interpretation Comments POCT GLU (test code = 4709252607) 155 mg/dL 70-110 H Lab Interpretation (test code = Abnormal 58560-1) [facility]11 22:10:24 Test Item Value Reference Range Interpretation Comments POCT GLU (test code = 6347864266) 155 mg/dL 70-110 H Lab Interpretation (test code = Abnormal 05050-4) [facility]11 19:03:28 Test Item Value Reference Range Interpretation Comments POCT GLU (test code = 4649077133) 208 mg/dL 70-110 H Lab Interpretation (test code = Abnormal 78628-4) [facility]2022-[facility]-11 19:03:28 Test Item Value Reference Range Interpretation Comments POCT GLU (test code = 4026619570) 208 mg/dL 70-110 H Lab Interpretation (test code = Abnormal 83696-3) [facility]11 19:03:28 Test Item Value Reference Range Interpretation Comments POCT GLU (test code = 7102081787) 208 mg/dL 70-110 H Lab Interpretation (test code = Abnormal 79114-2) [facility]2022-03-11 13:26:22 Test Item Value Reference Range Interpretation Comments POCT GLU (test code = 4723776081) 98 mg/dL 70-110 Lab Interpretation (test code = Normal 39691-5) [facility] GLUCOSE (AUTOMATED)2022-03-11 13:26:22 Test Item Value Reference Range Interpretation Comments POCT GLU (test code = 2515974909) 98 mg/dL 70-110 Lab Interpretation (test code = Normal 16582-0) [facility] GLUCOSE (AUTOMATED)2022-03-11 02:41:20 Test Item Value Reference Range Interpretation Comments POCT GLU (test code = 9276897407) 169 mg/dL 70-110 H Lab Interpretation (test code = Abnormal 75350-5) [facility] GLUCOSE (AUTOMATED)2022-03-11 02:41:20 Test Item Value Reference Range Interpretation Comments POCT GLU (test code = 9957566868) 169 mg/dL 70-110 H Lab Interpretation (test code = Abnormal 61787-2) [facility] GLUCOSE (AUTOMATED)2022-03-10 23:20:44 Test Item Value Reference Range Interpretation Comments POCT GLU (test code = 1008289759) 103 mg/dL 70-110 Lab Interpretation (test code = Normal 73673-3) [facility] GLUCOSE (AUTOMATED)2022-03-10 23:20:44 Test Item Value Reference Range Interpretation Comments POCT GLU (test code = 2982611069) 103 mg/dL 70-110 Lab Interpretation (test code = Normal 71464-5) [facility] GLUCOSE (AUTOMATED)2022-03-10 18:33:58 Test Item Value Reference Range Interpretation Comments POCT GLU (test code = 1917476040) 114 mg/dL 70-110 H Lab Interpretation (test code = Abnormal 04812-2) [facility] GLUCOSE (AUTOMATED)2022-03-10 18:33:58 Test Item Value Reference Range Interpretation Comments POCT GLU (test code = 8536613177) 114 mg/dL 70-110 H Lab Interpretation (test code = Abnormal 00306-2) [facility]10 18:33:58 Test Item Value Reference Range Interpretation Comments POCT GLU (test code = 3081284447) 114 mg/dL 70-110 H Lab Interpretation (test code = Abnormal 25024-7) [facility] GLUCOSE (AUTOMATED)2022-03-10 18:33:58 Test Item Value Reference Range Interpretation Comments POCT GLU (test code = 3941272953) 114 mg/dL 70-110 H Lab Interpretation (test code = Abnormal 97750-6) [facility] 13:30:10 Test Item Value Reference Range Interpretation Comments POCT GLU (test code = 8236977416) 142 mg/dL 70-110 H Lab Interpretation (test code = Abnormal 45526-2) [facility] GLUCOSE (AUTOMATED)2022-03-10 13:30:10 Test Item Value Reference Range Interpretation Comments POCT GLU (test code = 7153290042) 142 mg/dL 70-110 H Lab Interpretation (test code = Abnormal 76251-0) [facility] 13:30:10 Test Item Value Reference Range Interpretation Comments POCT GLU (test code = 7481114815) 142 mg/dL 70-110 H Lab Interpretation (test code = Abnormal 61156-0) [facility]10 01:53:31 Test Item Value Reference Range Interpretation Comments POCT GLU (test code = 5815681280) 167 mg/dL 70-110 H Lab Interpretation (test code = Abnormal 93452-0) [facility]-10 01:53:31 Test Item Value Reference Range Interpretation Comments POCT GLU (test code = 6441860574) 167 mg/dL 70-110 H Lab Interpretation (test code = Abnormal 47038-3) [facility]31 Test Item Value Reference Range Interpretation Comments POCT GLU (test code = 8766167410) 167 mg/dL 70-110 H Lab Interpretation (test code = Abnormal 89575-5) [facility] 23:34:36 Test Item Value Reference Range Interpretation Comments POCT GLU (test code = 8652335878) 185 mg/dL 70-110 H Lab Interpretation (test code = Abnormal 75299-8) [facility] 23:34:36 Test Item Value Reference Range Interpretation Comments POCT GLU (test code = 8134328721) 185 mg/dL 70-110 H Lab Interpretation (test code = Abnormal 34117-2) [facility] 23:34:36 Test Item Value Reference Range Interpretation Comments POCT GLU (test code = 4377426589) 185 mg/dL 70-110 H Lab Interpretation (test code = Abnormal 51584-2) [facility] GLUCOSE (AUTOMATED)2022-03-09 17:29:55 Test Item Value Reference Range Interpretation Comments POCT GLU (test code = 0211872991) 131 mg/dL 70-110 H Lab Interpretation (test code = Abnormal 74176-4) [facility] GLUCOSE (AUTOMATED)2022-03-09 17:29:55 Test Item Value Reference Range Interpretation Comments POCT GLU (test code = 5026457414) 131 mg/dL 70-110 H Lab Interpretation (test code = Abnormal 24832-1) [facility] GLUCOSE (AUTOMATED)2022-03-09 17:29:55 Test Item Value Reference Range Interpretation Comments POCT GLU (test code = 5815046860) 131 mg/dL 70-110 H Lab Interpretation (test code = Abnormal 89546-9) [facility] 13:37:07 Test Item Value Reference Range Interpretation Comments POCT GLU (test code = 4429633059) 112 mg/dL 70-110 H Lab Interpretation (test code = Abnormal 58402-0) [facility] GLUCOSE (AUTOMATED)2022-03-09 13:37:07 Test Item Value Reference Range Interpretation Comments POCT GLU (test code = 1066200501) 112 mg/dL 70-110 H Lab Interpretation (test code = Abnormal 35926-8) [facility] GLUCOSE (AUTOMATED)2022-03-09 13:37:07 Test Item Value Reference Range Interpretation Comments POCT GLU (test code = 2999076782) 112 mg/dL 70-110 H Lab Interpretation (test code = Abnormal 18007-9) [facility] GLUCOSE (AUTOMATED)2022-03-09 02:23:58 Test Item Value Reference Range Interpretation Comments POCT GLU (test code = 3716686244) 166 mg/dL 70-110 H Lab Interpretation (test code = Abnormal 44736-4) [facility] GLUCOSE (AUTOMATED)2022-03-09 02:23:58 Test Item Value Reference Range Interpretation Comments POCT GLU (test code = 5205540178) 166 mg/dL 70-110 H Lab Interpretation (test code = Abnormal 36711-5) [facility] GLUCOSE (AUTOMATED)2022-03-09 02:23:58 Test Item Value Reference Range Interpretation Comments POCT GLU (test code = 4406319778) 166 mg/dL 70-110 H Lab Interpretation (test code = Abnormal 90540-0) [facility] and Screen - ONCE [id number] 22:19:24 Test Item Value Reference Range Interpretation Comments ABO & RH (test code O POSITIVE Performe d at [facility] = 20) Laboratory Serv [facility] Blood [facility] [place] [address]Xhih Free: [phone] A No. [id number] IAT (test code = Negative Performed a t [facility] 1185) Laboratory [facility] [place] [address] s [address]Gbyp Free: [phone] A No. [id number] [facility] [id number] 22:19:24 Test Item Value Reference Range Interpretation Comments ABO & RH (test code O POSITIVE Performe d at [facility] = 20) Laboratory [facility] [place] [address] s [address]Iyzc Free: [phone] A No. [id number] IAT (test code = Negative Performed a t [facility] 1185) Laboratory [facility] [place] [address] s [address]Sspn Free: [phone] A No. [id number] [facility] and Screen - ONCE [id number] 22:19:24 Test Item Value Reference Range Interpretation Comments ABO & RH (test code O POSITIVE Performe d at [facility] = 20) Laboratory [facility] Blood [address] [address]Nixh Free: [phone] A No. [id number] IAT (test code = Negative Performed a t [facility] 1185) Laboratory [facility] Blood [address] [address]Kvyu Free: [phone] A No. [id number] [facility] and Screen - ONCE [id number] 22:19:24 Test Item Value Reference Range Interpretation Comments ABO & RH (test code O POSITIVE Performe d at [facility] = 20) Laboratory [facility] Blood [address] [address]Ogun Free: [phone] A No. [id number] IAT (test code = Negative Performed a t [facility] 1185) Laboratory [facility] Blood [address] [address]Zwhu Free: [phone] A No. [id number] [facility] and Screen - ONCE [id number] 22:19:24 Test Item Value Reference Range Interpretation Comments ABO & RH (test code O POSITIVE Performe d at [facility] = 20) Laboratory [facility] Blood [address] [address]Uavw Free: [phone] A No. [id number] IAT (test code = Negative Performed a t [facility] 1185) Laboratory [facility] Blood [address] [address]Jrxx Free: [phone] A No. [id number] [facility] 21:52:51 Test Item Value Reference Range Interpretation Comments POCT GLU (test code = 5527739131) 157 mg/dL 70-110 H Lab Interpretation (test code = Abnormal 02867-5) [facility] 21:52:51 Test Item Value Reference Range Interpretation Comments POCT GLU (test code = 4578787818) 157 mg/dL 70-110 H Lab Interpretation (test code = Abnormal 26340-2) [facility]2022-03-08 21:52:51 Test Item Value Reference Range Interpretation Comments POCT GLU (test code = 4445995584) 157 mg/dL 70-110 H Lab Interpretation (test code = Abnormal 08144-3) [facility]2022-03-08 17:27:00 Test Item Value Reference Range Interpretation Comments POCT GLU (test code = 8075963822) 115 mg/dL 70-110 H Lab Interpretation (test code = Abnormal 69695-6) [facility] GLUCOSE (AUTOMATED)2022-03-08 17:27:00 Test Item Value Reference Range Interpretation Comments POCT GLU (test code = 8761238716) 115 mg/dL 70-110 H Lab Interpretation (test code = Abnormal 99981-6) [facility]2022-03-08 17:27:00 Test Item Value Reference Range Interpretation Comments POCT GLU (test code = 4308337166) 115 mg/dL 70-110 H Lab Interpretation (test code = Abnormal 30738-7) [facility] GLUCOSE (AUTOMATED)2022-03-08 13:36:37 Test Item Value Reference Range Interpretation Comments POCT GLU (test code = 7772781452) 113 mg/dL 70-110 H Lab Interpretation (test code = Abnormal 87283-3) [facility] GLUCOSE (AUTOMATED)2022-03-08 13:36:37 Test Item Value Reference Range Interpretation Comments POCT GLU (test code = 9377779222) 113 mg/dL 70-110 H Lab Interpretation (test code = Abnormal 38107-4) [facility] 13:36:37 Test Item Value Reference Range Interpretation Comments POCT GLU (test code = 8641294634) 113 mg/dL 70-110 H Lab Interpretation (test code = Abnormal 14298-0) [facility] GLUCOSE (AUTOMATED)2022-03-08 12:24:57 Test Item Value Reference Range Interpretation Comments POCT GLU (test code = 7859567284) 115 mg/dL 70-110 H Lab Interpretation (test code = Abnormal 08293-0) [facility]-08 12:24:57 Test Item Value Reference Range Interpretation Comments POCT GLU (test code = 4069277071) 115 mg/dL 70-110 H Lab Interpretation (test code = Abnormal 43168-5) [facility] GLUCOSE (AUTOMATED)2022-03-08 12:24:57 Test Item Value Reference Range Interpretation Comments POCT GLU (test code = 3364944628) 115 mg/dL 70-110 H Lab Interpretation (test code = Abnormal 82897-5) [facility] GLUCOSE (AUTOMATED)2022-03-08 02:36:30 Test Item Value Reference Range Interpretation Comments POCT GLU (test code = 0194274312) 211 mg/dL 70-110 H Lab Interpretation (test code = Abnormal 72063-2) [facility] 02:36:30 Test Item Value Reference Range Interpretation Comments POCT GLU (test code = 7515725100) 211 mg/dL 70-110 H Lab Interpretation (test code = Abnormal 22370-6) [facility] GLUCOSE (AUTOMATED)2022-03-08 02:36:30 Test Item Value Reference Range Interpretation Comments POCT GLU (test code = 2110182083) 211 mg/dL 70-110 H Lab Interpretation (test code = Abnormal 11196-1) [facility] GLUCOSE (AUTOMATED)2022-03-08 00:07:30 Test Item Value Reference Range Interpretation Comments POCT GLU (test code = 5851154722) 130 mg/dL 70-110 H Lab Interpretation (test code = Abnormal 68765-7) [facility] 00:07:30 Test Item Value Reference Range Interpretation Comments POCT GLU (test code = 3013459630) 130 mg/dL 70-110 H Lab Interpretation (test code = Abnormal 30625-3) [facility] GLUCOSE (AUTOMATED)2022-03-08 00:07:30 Test Item Value Reference Range Interpretation Comments POCT GLU (test code = 6765779940) 130 mg/dL 70-110 H Lab Interpretation (test code = Abnormal 14201-4) [facility] GLUCOSE (AUTOMATED)2022-03-07 18:37:06 Test Item Value Reference Range Interpretation Comments POCT GLU (test code = 4177464296) 99 mg/dL 70-110 Lab Interpretation (test code = Normal 72045-7) [facility] GLUCOSE (AUTOMATED)2022-03-07 18:37:06 Test Item Value Reference Range Interpretation Comments POCT GLU (test code = 2356767937) 99 mg/dL 70-110 Lab Interpretation (test code = Normal 54327-3) [facility] GLUCOSE (AUTOMATED)2022-03-07 18:37:06 Test Item Value Reference Range Interpretation Comments POCT GLU (test code = 7676369321) 99 mg/dL 70-110 Lab Interpretation (test code = Normal 28004-8) [facility] GLUCOSE (AUTOMATED)2022-03-07 11:56:20 Test Item Value Reference Range Interpretation Comments POCT GLU (test code = 2108984318) 86 mg/dL 70-110 Lab Interpretation (test code = Normal 78644-2) [facility] GLUCOSE (AUTOMATED)2022-03-07 11:56:20 Test Item Value Reference Range Interpretation Comments POCT GLU (test code = 8983242392) 86 mg/dL 70-110 Lab Interpretation (test code = Normal 55163-7) [facility] GLUCOSE (AUTOMATED)2022-03-07 11:56:20 Test Item Value Reference Range Interpretation Comments POCT GLU (test code = 1946214127) 86 mg/dL 70-110 Lab Interpretation (test code = Normal 95671-6) [facility] GLUCOSE (AUTOMATED)2022-03-07 02:39:21 Test Item Value Reference Range Interpretation Comments POCT GLU (test code = 9371409650) 153 mg/dL 70-110 H Lab Interpretation (test code = Abnormal 11786-5) [facility] GLUCOSE (AUTOMATED)2022-03-07 02:39:21 Test Item Value Reference Range Interpretation Comments POCT GLU (test code = 4128807976) 153 mg/dL 70-110 H Lab Interpretation (test code = Abnormal 07542-5) [facility]-07 02:39:21 Test Item Value Reference Range Interpretation Comments POCT GLU (test code = 1863326587) 153 mg/dL 70-110 H Lab Interpretation (test code = Abnormal 23487-3) [facility] GLUCOSE (AUTOMATED)2022-03-07 00:29:42 Test Item Value Reference Range Interpretation Comments POCT GLU (test code = 9795411182) 151 mg/dL 70-110 H Lab Interpretation (test code = Abnormal 69566-4) [facility] GLUCOSE (AUTOMATED)2022-03-07 00:29:42 Test Item Value Reference Range Interpretation Comments POCT GLU (test code = 9156399536) 151 mg/dL 70-110 H Lab Interpretation (test code = Abnormal 43855-5) [facility] GLUCOSE (AUTOMATED)2022-03-07 00:29:42 Test Item Value Reference Range Interpretation Comments POCT GLU (test code = 2820894149) 151 mg/dL 70-110 H Lab Interpretation (test code = Abnormal 17774-4) [facility]-06 19:35:41 Test Item Value Reference Range Interpretation Comments POCT GLU (test code = 4076293482) 207 mg/dL 70-110 H Lab Interpretation (test code = Abnormal 51632-3) [facility] GLUCOSE (AUTOMATED)2022-03-06 19:35:41 Test Item Value Reference Range Interpretation Comments POCT GLU (test code = 1912598265) 207 mg/dL 70-110 H Lab Interpretation (test code = Abnormal 16203-5) [facility] 19:35:41 Test Item Value Reference Range Interpretation Comments POCT GLU (test code = 9648599292) 207 mg/dL 70-110 H Lab Interpretation (test code = Abnormal 96659-7) [facility]22-[facility]-06 15:37:31 Test Item Value Reference Range Interpretation Comments POCT GLU (test code = 1708565525) 115 mg/dL 70-110 H Lab Interpretation (test code = Abnormal 34424-9) [facility] GLUCOSE (AUTOMATED)2022-03-06 15:37:31 Test Item Value Reference Range Interpretation Comments POCT GLU (test code = 5220820160) 115 mg/dL 70-110 H Lab Interpretation (test code = Abnormal 77598-0) [facility] 15:37:31 Test Item Value Reference Range Interpretation Comments POCT GLU (test code = 5772351119) 115 mg/dL 70-110 H Lab Interpretation (test code = Abnormal 83234-6) [facility] 03:02:54 Test Item Value Reference Range Interpretation Comments POCT GLU (test code = 0640705888) 149 mg/dL 70-110 H Lab Interpretation (test code = Abnormal 15776-9) [facility] GLUCOSE (AUTOMATED)2022-03-06 03:02:54 Test Item Value Reference Range Interpretation Comments POCT GLU (test code = 6775486398) 149 mg/dL 70-110 H Lab Interpretation (test code = Abnormal 18308-9) [facility] 03:02:54 Test Item Value Reference Range Interpretation Comments POCT GLU (test code = 3939401996) 149 mg/dL 70-110 H Lab Interpretation (test code = Abnormal 24772-5) [facility]22-[facility]-05 23:42:01 Test Item Value Reference Range Interpretation Comments POCT GLU (test code = 3004608472) 173 mg/dL 70-110 H Lab Interpretation (test code = Abnormal 03776-9) [facility] 23:42:01 Test Item Value Reference Range Interpretation Comments POCT GLU (test code = 1539086324) 173 mg/dL 70-110 H Lab Interpretation (test code = Abnormal 28064-9) [facility] 23:42:01 Test Item Value Reference Range Interpretation Comments POCT GLU (test code = 5903042803) 173 mg/dL 70-110 H Lab Interpretation (test code = Abnormal 33160-1) [facility] GLUCOSE (AUTOMATED)2022-03-05 19:04:44 Test Item Value Reference Range Interpretation Comments POCT GLU (test code = 4033504537) 154 mg/dL 70-110 H Lab Interpretation (test code = Abnormal 47469-6) [facility]22-[facility]-05 19:04:44 Test Item Value Reference Range Interpretation Comments POCT GLU (test code = 7271126414) 154 mg/dL 70-110 H Lab Interpretation (test code = Abnormal 63147-7) [facility] GLUCOSE (AUTOMATED)2022-03-05 19:04:44 Test Item Value Reference Range Interpretation Comments POCT GLU (test code = 8274332590) 154 mg/dL 70-110 H Lab Interpretation (test code = Abnormal 93538-5) [facility] GLUCOSE (AUTOMATED)2022-03-05 15:56:46 Test Item Value Reference Range Interpretation Comments POCT GLU (test code = 9449899055) 101 mg/dL 70-110 Lab Interpretation (test code = Normal 91039-4) [facility] GLUCOSE (AUTOMATED)2022-03-05 15:56:46 Test Item Value Reference Range Interpretation Comments POCT GLU (test code = 4442113054) 101 mg/dL 70-110 Lab Interpretation (test code = Normal 51907-7) [facility] GLUCOSE (AUTOMATED)2022-03-05 15:56:46 Test Item Value Reference Range Interpretation Comments POCT GLU (test code = 5526077060) 101 mg/dL 70-110 Lab Interpretation (test code = Normal 82093-5) [facility] GLUCOSE (AUTOMATED)2022-03-05 02:52:46 Test Item Value Reference Range Interpretation Comments POCT GLU (test code = 0870916129) 124 mg/dL 70-110 H Lab Interpretation (test code = Abnormal 15907-5) [facility] GLUCOSE (AUTOMATED)2022-03-05 02:52:46 Test Item Value Reference Range Interpretation Comments POCT GLU (test code = 4368875981) 124 mg/dL 70-110 H Lab Interpretation (test code = Abnormal 85022-8) [facility] GLUCOSE (AUTOMATED)2022-03-05 02:52:46 Test Item Value Reference Range Interpretation Comments POCT GLU (test code = 4617924593) 124 mg/dL 70-110 H Lab Interpretation (test code = Abnormal 47991-4) [facility] [id number] 00:00:00 Test Item Value Reference Range Interpretation Comments HEMOGLOBIN A1c (test code = 03578) 11.3 % HEMOGLOBIN [id number] 00:00:00 Test Item Value Reference Range Interpretation Comments HEMOGLOBIN A1c (test code = 02777) 11.3 % HEMOGLOBIN [id number] 00:00:00 Test Item Value Reference Range Interpretation Comments HEMOGLOBIN A1c (test code = 94138) 11.3 % LIPID [id number] 00:00:00 Test Item Value Reference Range Interpretation Comments CHOLESTEROL (test code = 2210) 171 MG/DL TRIGLYCERIDES (test code = 2232) 178 MG/DL HDL CHOLESTEROL (test code = 2220) 33 MG/DL CALC LDL CHOL (test code = 2237) 108 MG/DL RISK RATIO LDL/HDL (test code = 3.27 RATIO 2238) LIPID [id number] 00:00:00 Test Item Value Reference Range Interpretation Comments CHOLESTEROL (test code = 2210) 171 MG/DL TRIGLYCERIDES (test code = 2232) 178 MG/DL HDL CHOLESTEROL (test code = 2220) 33 MG/DL CALC LDL CHOL (test code = 2237) 108 MG/DL RISK RATIO LDL/HDL (test code = 3.27 RATIO 2238) COMPREHENSIVE METABOLIC [id number] 00:00:00 Test Item Value Reference Range Interpretation Comments GLUCOSE (test code = 2217) 188 MG/DL BUN (test code = 2208) 11 MG/DL CREATININE (test code = 2214) 0.78 MG/DL eGFR (2020 CKD-EPI) (test 103 ML/MIN/1.73 code = 70706) CALC BUN/CREAT (test code = 14 RATIO [...] code = 2219) 17 U/L COMPREHENSIVE METABOLIC [id number] 00:00:00 Test Item Value Reference Range Interpretation Comments GLUCOSE (test code = 2217) 188 MG/DL BUN (test code = 2208) 11 MG/DL CREATININE (test code = 2214) 0.78 MG/DL eGFR (2020 CKD-EPI) (test 103 ML/MIN/1.73 code = 26188) CALC BUN/CREAT (test code = 14 RATIO [...] (test code = 2219) 17 U/L HEMOGLOBIN [id number] 00:00:00 Test Item Value Reference Range Interpretation Comments HEMOGLOBIN A1c (test code = 32640) 11.3 % HEMOGLOBIN [id number] 00:00:00 Test Item Value Reference Range Interpretation Comments HEMOGLOBIN A1c (test code = 61768) 11.3 % HEMOGLOBIN [id number] 00:00:00 Test Item Value Reference Range Interpretation Comments HEMOGLOBIN A1c (test code = 73249) 11.3 % LIPID [id number] 00:00:00 Test Item Value Reference Range Interpretation Comments CHOLESTEROL (test code = 2210) 171 MG/DL TRIGLYCERIDES (test code = 2232) 178 MG/DL HDL CHOLESTEROL (test code = 2220) 33 MG/DL CALC LDL CHOL (test code = 2237) 108 MG/DL RISK RATIO LDL/HDL (test code = 3.27 RATIO 2238) LIPID [id number] 00:00:00 Test Item Value Reference Range Interpretation Comments CHOLESTEROL (test code = 2210) 171 MG/DL TRIGLYCERIDES (test code = 2232) 178 MG/DL HDL CHOLESTEROL (test code = 2220) 33 MG/DL CALC LDL CHOL (test code = 2237) 108 MG/DL RISK RATIO LDL/HDL (test code = 3.27 RATIO 2238) COMPREHENSIVE METABOLIC [id number] 00:00:00 Test Item Value Reference Range Interpretation Comments GLUCOSE (test code = 2217) 188 MG/DL BUN (test code = 2208) 11 MG/DL CREATININE (test code = 2214) 0.78 MG/DL eGFR (2020 CKD-EPI) (test 103 ML/MIN/1.73 code = 29048) CALC BUN/CREAT (test code = 14 RATIO [...] code = 2219) 17 U/L COMPREHENSIVE METABOLIC [id number] 00:00:00 Test Item Value Reference Range Interpretation Comments GLUCOSE (test code = 2217) 188 MG/DL BUN (test code = 2208) 11 MG/DL CREATININE (test code = 2214) 0.78 MG/DL eGFR (2020 CKD-EPI) (test 103 ML/MIN/1.73 code = 43048) CALC BUN/CREAT (test code = 14 RATIO [...] A/G RATIO (test code = 1.3 RATIO 4) BILIRUBIN, TOTAL (test code = 0.5 MG/DL 2206) ALKALINE PHOSPHATASE (test 147 U/L code = 2204) AST (test code = 2218) 18 U/L ALT (test code = 2219) 17 U/L COMP. METABOLIC PANEL (00835)2021-12-25 15:03:27 Test Item Value Reference Range Interpretation Comments NA (test code = 136 mmol/L 135-145 5161662490) K (test code = 4.1 mmol/L 3.5-5 6593103128) CL (test code = 102 mmol/L 98-108 1164702153) CO2 TOTAL (test code = 23 mmol/L 23-31 9016748062) AGAP (test code = 2-16 5402396369) BUN (test code = 12 mg/dL 7-23 7539926824) GLUCOSE (test code = 318 mg/dL 70-110 H 6864612040) CREATININE (test code = 0.77 mg/dL 0.6-1.25 9134571755) TOTAL BILI (test code = 0.6 mg/dL 0.1-1.7 8727078716) CALCIUM (test code = 8.6 mg/dL 8.6-10.6 6474084126) T PROTEIN (test code = 6.8 g/dL 6.3-8.2 0251595217) ALBUMIN (test code = 3.9 g/dL 3.5-5 2679096876) ALK PHOS (test code = 165 U/L 34-122 H 8942114835) ALTv (test code = 32 U/L 5-50 1742-6) AST(SGOT) (test code = 24 U/L 13-40 9122182281) eGFR (test code = mL/min/1.73m2 0739959442) LUIS (test code = LUIS) Association of [...] tests). Lab Interpretation Abnormal (test code = 45313-1) [facility]. METABOLIC PANEL (65885)2021-12-25 15:03:27 Test Item Value Reference Range Interpretation Comments NA (test code = 136 mmol/L 135-145 0612758978) K (test code = 4.1 mmol/L 3.5-5.0 8091643023) CL (test code = 102 mmol/L 98-108 4821914653) CO2 TOTAL (test code = 23 mmol/L 23-31 7198990518) AGAP (test code = 2-16 1466844063) BUN (test code = 12 mg/dL 7-23 4563855186) GLUCOSE (test code = 318 mg/dL 70-110 H 7212213543) CREATININE (test code = 0.77 mg/dL 0.60-1.25 5947905671) TOTAL BILI (test code = 0.6 mg/dL 0.1-1.6 5055466621) CALCIUM (test code = 8.6 mg/dL 8.6-10.6 7520903254) T PROTEIN (test code = 6.8 g/dL 6.3-8.2 1170243418) ALBUMIN (test code = 3.9 g/dL 3.5-5.0 8800692583) ALK PHOS (test code = 165 U/L 34-122 H 6934832660) ALTv (test code = 32 U/L 5-50 1742-6) AST(SGOT) (test code = 24 U/L 13-40 3469108936) eGFR (test code = mL/min/1.73m2 5902655464) LUIS (test code = LUIS) Association of [...] tests). Lab Interpretation Abnormal (test code = 21683-1) [facility]. METABOLIC PANEL ([id number])2021-12-25 15:03:27 Test Item Value Reference Range Interpretation Comments NA (test code = 136 mmol/L 135-145 2984408228) K (test code = 4.1 mmol/L 3.5-5.0 0733427161) CL (test code = 102 mmol/L 98-108 0212760204) CO2 TOTAL (test code = 23 mmol/L 23-31 4188359611) AGAP (test code = 2-16 8196644833) BUN (test code = 12 mg/dL 7-23 9787992759) GLUCOSE (test code = 318 mg/dL 70-110 H 1534269400) CREATININE (test code = 0.77 mg/dL 0.60-1.25 3991932290) TOTAL BILI (test code = 0.6 mg/dL 0.1-1.9 4278793192) CALCIUM (test code = 8.6 mg/dL 8.6-10.6 8475633557) T PROTEIN (test code = 6.8 g/dL 6.3-8.2 5380617243) ALBUMIN (test code = 3.9 g/dL 3.5-5.0 4667806779) ALK PHOS (test code = 165 U/L 34-122 H 8767829924) ALTv (test code = 32 U/L 5-50 1742-6) AST(SGOT) (test code = 24 U/L 13-40 6612325176) eGFR (test code = mL/min/1.73m2 4504258687) LUIS (test code = LUIS) Association of [...] tests). Lab Interpretation Abnormal (test code = 28595-3) [facility] WITH [id number] 14:53:24 Test Item Value Reference Range Interpretation Comments WBC (test code = See_Comment [Automated 3447-2) message] The sy stem which generated this [...] RDW-SD (test code = 39.2 fL 38.5-51.6 43799-2) RDW-CV (test code = 12.9 % 12.1-15.4 788-0) PLT (test code = See_Comment [Automated 317-3) message] The sy stem which generated this result transmitted reference range : 150 - 328 10*3/ ?L. The reference r neno was not used to interpret this result as normal/abnormal . MPV (test code = 9.2 fL 9.8-13 L 73279-7) NRBC/100 WBC (test See_Comment [Automat ed code = [id number]) message] The system which generated this result transmitted reference range : 0.0 - 10.0 /100 WBCs. The refer ence range was not u sed to interpret th is result as normal/abnormal . NRBC x10^3 (test code See_Comment [Auto mated = [id number]) message] The s ystem which generated this result transmitted reference range : 10*3/?L. The reference range was not used to interpret this result as normal/abnormal . GRAN MAT (NEUT) % 71.6 % (test code = 770-8) IMM GRAN % (test code 0.40 % = [id number]) LYMPH % (test code = 18.8 % 736-9) MONO % (test code = 6.7 % 5905-5) EOS % (test code = 1.7 % 713-8) BASO % (test code = 0.8 % 706-2) GRAN MAT x10^3(ANC) 5.46 10*3/uL 1.99-6.95 (test code = [id number]) IMM GRAN x10^3 (test 0.03 10*3/uL 0-0.06 code = 9146398359) LYMPH x10^3 (test code 1.43 10*3/uL 1.09-3.23 = 731-0) MONO x10^3 (test code 0.51 10*3/uL 0.36-1.02 = 742-7) EOS x10^3 (test code = 0.13 10*3/uL 0.06-0.53 711-2) BASO x10^3 (test code 0.06 10*3/uL 0.01-0.09 = 704-7) Lab Interpretation Abnormal (test code = 48363-7) [facility] Test Item Value Reference Range Interpretation Comments NOTE: (test code = (NOTE) IN ACCOR DANCE WITH FEDERAL 998) GUIDELINES REQU IRING ALL VERBAL REQUESTS FOR LABORATORY TEST S TO BE ACCOMPANIED BY WRITTEN AUTHORIZATION W ITHIN 30 DAYS OF THIS REQUEST , PLEASE SIGN BELOW AND RETUR N A COPY OF THIS REPORT BY FAX TO THE LABORATORY SCAN [facility] DEPARTMENT AT [phone]. PHYSICIAN'S SIG NATURE DATE UNLESS OTHERWISE INDIC ATED, ALL TESTING PERFORM ED ATCLINICAL PATHOLOGY [facility]. [address] [place] [id number] LABORATOR Y DIRECTOR: RASHID HOPSON M.D. CLIA NUMBER [id number] CAP ACCREDITATION N O. [id number] LIPID [id number] 05:00:16 Test Item Value Reference Range Interpretation [...] MOREINFORMATION , SEE CLIENT ANNOUNCE MENT AT [email or web address] RISK RATIO LDL/HDL 2.34 RATIO <3.55 (test code = 2238) COMPREHENSIVE METABOLIC [id number] 05:00:16 Test Item Value Reference Range Interpretation Comments GLUCOSE (test code = 250 MG/DL 70-99 H 2216) BUN (test code = 18 MG/DL 6-20 2207) CREATININE (test 1.17 MG/DL 0.80-1.40 code = 2214) eGFR (2020 CKD-EPI) 72 ML/MIN/1.73 >60 (test code = 71500) CALC BUN/CREAT (test 15 RATIO 6-28 code = 2235) SODIUM (test code = 141 MEQ/L 640-072 3072) POTASSIUM (test code 4.4 MEQ/L 3.5-5.4 = 2228) CHLORIDE (test code 106 MEQ/L 95-107 = 2215) CARBON DIOXIDE (test 24 MEQ/L 19-31 code [...] message] (test code = 2206) The syste [employer] which generated this result transmit alex reference range : <=1.2. The refe rence range was not u sed to interpret th is result as normal/abnormal . ALKALINE PHOSPHATASE 157 U/L 40-123 H (test code = 2203) AST (test code = 28 U/L 9-50 2217) ALT (test code = 30 U/L 5-50 2218) HEMOGLOBIN [id number] 04:11:01 Test Item Value Reference Range Interpretation Comments HEMOGLOBIN A1c (test 10.5 % 4.2-5.6 H AMERIC AN DIABETES code = 77076) ASSOCIATION IDELINES FOR HGB A1C: PREDIABETES/INC REASED [...] ATE TESTING OR LABORATORY C ONSULTATION. HEMOGLOBIN [id number] 07:49:13 Test Item Value Reference Range Interpretation Comments HEMOGLOBIN A1c (test 11.7 % 4.2-5.6 H AMERIC AN DIABETES code = 40083) ASSOCIATION IDELINES FOR HGB A1C: PREDIABETES/INC REASED [...] TESTING OR LABORATORY C ONSULTATION. COMPREHENSIVE METABOLIC [id number] 05:31:44 Test Item Value Reference Range Interpretation Comments GLUCOSE (test code = 209 MG/DL 70-99 H 2216) BUN (test code = 12 MG/DL 6-20 2207) CREATININE (test 0.73 MG/DL 0.80-1.40 L code = 2214) eGFR (2020 CKD-EPI) 106 >60 (test code = 92076) ML/MIN/1.73 CALC BUN/CREAT (test 16 RATIO 6-28 code = 2235) SODIUM (test code = 139 MEQ/L 327-469 6671) POTASSIUM (test code 4.2 MEQ/L 3.5-5.4 = 2227) CHLORIDE (test code 101 MEQ/L 95-107 = 2215) CARBON DIOXIDE (test 24 MEQ/L 19-31 code [...] code = 32 U/L 5-50 2218) LIPID [id number] 05:31:44 Test Item Value Reference Range Interpretation Comments CHOLESTEROL (test 184 MG/DL <200 code = 2210) TRIGLYCERIDES (test 196 MG/DL <150 H code = 2232) HDL CHOLESTEROL (test 57 MG/DL >39 code = 2220) CALC LDL CHOL (test 98 MG/DL <100 NOTE: C ALCULATED LDL code = 2237) IS BASED ON CHRIS-OJNES METHOD WHICHINCLUDES ADJUSTABLE TRIGLYCERIDE:VL DL CHOLESTEROL RAT IO.THIS FACTOR VARIES B Y MEASURED TRIGLY CERIDE AND NON-HDLCHOL ESTEROL CONCENTRATIONS WITH INCREASED CALCU LATED LDL SEENIN HIGH ER TRIGLYCERIDE OR LOWER NON-HDL SPECIME NS. FOR MOREINFORMATION , SEE CLIENT ANNOUNCE MENT AT [email or web address] RISK RATIO LDL/HDL 1.72 RATIO <3.55 UNLESS O THERWISE (test code = 2238) INDICATED , ALL TESTING PERFORMED [facility], [facility]. [address] [place] [id number] [place] [address] DIRECTOR: RASHID HOBBS M.D. IA NUMBER [id number] CAP ACCREDITATION N O. [id number] COMPREHENSIVE METABOLIC [id number] 00:00:00 Test Item Value Reference Range Interpretation Comments GLUCOSE (test code = 2217) 209 MG/DL BUN (test code = 2208) 12 MG/DL CREATININE (test code = 2214) 0.73 MG/DL eGFR (2020 CKD-EPI) (test 106 ML/MIN/1.73 code = 31624) CALC BUN/CREAT (test code = 16 RATIO [...] A/G RATIO (test code = 1.4 RATIO 223) BILIRUBIN, TOTAL (test code = 0.2 MG/DL 2206) ALKALINE PHOSPHATASE (test 144 U/L code = 2204) AST (test code = 2218) 22 U/L ALT (test code = 2219) 32 U/L COMPREHENSIVE METABOLIC [id number] 00:00:00 Test Item Value Reference Range Interpretation Comments GLUCOSE (test code = 2217) 209 MG/DL BUN (test code = 2208) 12 MG/DL CREATININE (test code = 2214) 0.73 MG/DL eGFR (2020 CKD-EPI) (test 106 ML/MIN/1.73 code = 17431) CALC BUN/CREAT (test code = 16 RATIO [...] (test code = 2219) 32 U/L LIPID [id number] 00:00:00 Test Item Value Reference Range Interpretation Comments CHOLESTEROL (test code = 2210) 184 MG/DL TRIGLYCERIDES (test code = 2232) 196 MG/DL HDL CHOLESTEROL (test code = 2220) 57 MG/DL CALC LDL CHOL (test code = 2237) 98 MG/DL RISK RATIO LDL/HDL (test code = 1.72 RATIO 2238) LIPID [id number] 00:00:00 Test Item Value Reference Range Interpretation Comments CHOLESTEROL (test code = 2210) 184 MG/DL TRIGLYCERIDES (test code = 2232) 196 MG/DL HDL CHOLESTEROL (test code = 2220) 57 MG/DL CALC LDL CHOL (test code = 2237) 98 MG/DL RISK RATIO LDL/HDL (test code = 1.72 RATIO 2238) HEMOGLOBIN [id number] 00:00:00 Test Item Value Reference Range Interpretation Comments HEMOGLOBIN A1c (test code = 43967) 11.7 % HEMOGLOBIN [id number] 00:00:00 Test Item Value Reference Range Interpretation Comments HEMOGLOBIN A1c (test code = 56587) 11.7 % HEMOGLOBIN [id number] 00:00:00 Test Item Value Reference Range Interpretation Comments HEMOGLOBIN A1c (test code = 33987) 11.7 % COMPREHENSIVE METABOLIC [id number] 00:00:00 Test Item Value Reference Range Interpretation Comments GLUCOSE (test code = 2217) 209 MG/DL BUN (test code = 2208) 12 MG/DL CREATININE (test code = 2214) 0.73 MG/DL eGFR (2020 CKD-EPI) (test 106 ML/MIN/1.73 code = 27775) CALC BUN/CREAT (test code = 16 RATIO [...] code = 2219) 32 U/L COMPREHENSIVE METABOLIC [id number] 00:00:00 Test Item Value Reference Range Interpretation Comments GLUCOSE (test code = 2217) 209 MG/DL BUN (test code = 2208) 12 MG/DL CREATININE (test code = 2214) 0.73 MG/DL eGFR (2020 CKD-EPI) (test 106 ML/MIN/1.73 code = 59637) CALC BUN/CREAT (test code = 16 RATIO [...] (test code = 2219) 32 U/L LIPID [id number] 00:00:00 Test Item Value Reference Range Interpretation Comments CHOLESTEROL (test code = 2210) 184 MG/DL TRIGLYCERIDES (test code = 2232) 196 MG/DL HDL CHOLESTEROL (test code = 2220) 57 MG/DL CALC LDL CHOL (test code = 2237) 98 MG/DL RISK RATIO LDL/HDL (test code = 1.72 RATIO 2238) LIPID [id number] 00:00:00 Test Item Value Reference Range Interpretation Comments CHOLESTEROL (test code = 2210) 184 MG/DL TRIGLYCERIDES (test code = 2232) 196 MG/DL HDL CHOLESTEROL (test code = 2220) 57 MG/DL CALC LDL CHOL (test code = 2237) 98 MG/DL RISK RATIO LDL/HDL (test code = 1.72 RATIO 2238) HEMOGLOBIN [id number] 00:00:00 Test Item Value Reference Range Interpretation Comments HEMOGLOBIN A1c (test code = 35595) 11.7 % HEMOGLOBIN [id number] 00:00:00 Test Item Value Reference Range Interpretation Comments HEMOGLOBIN A1c (test code = 75892) 11.7 % HEMOGLOBIN [id number] 00:00:00 Test Item Value Reference Range Interpretation Comments HEMOGLOBIN A1c (test code = 70718) 11.7 % COMPREHENSIVE METABOLIC [id number] 00:00:00 Test Item Value Reference Range Interpretation Comments GLUCOSE (test code = 2217) 209 MG/DL BUN (test code = 2208) 12 MG/DL CREATININE (test code = 2214) 0.73 MG/DL eGFR (2020 CKD-EPI) (test 106 ML/MIN/1.73 code = 58210) CALC BUN/CREAT (test code = 16 RATIO [...] code = 2219) 32 U/L COMPREHENSIVE METABOLIC [id number] 00:00:00 Test Item Value Reference Range Interpretation Comments GLUCOSE (test code = 2217) 209 MG/DL BUN (test code = 2208) 12 MG/DL CREATININE (test code = 2214) 0.73 MG/DL eGFR (2020 CKD-EPI) (test 106 ML/MIN/1.73 code = 90199) CALC BUN/CREAT (test code = 16 RATIO [...] (test code = 2219) 32 U/L LIPID [id number] 00:00:00 Test Item Value Reference Range Interpretation Comments CHOLESTEROL (test code = 2210) 184 MG/DL TRIGLYCERIDES (test code = 2232) 196 MG/DL HDL CHOLESTEROL (test code = 2220) 57 MG/DL CALC LDL CHOL (test code = 2237) 98 MG/DL RISK RATIO LDL/HDL (test code = 1.72 RATIO 2238) LIPID [id number] 00:00:00 Test Item Value Reference Range Interpretation Comments CHOLESTEROL (test code = 2210) 184 MG/DL TRIGLYCERIDES (test code = 2232) 196 MG/DL HDL CHOLESTEROL (test code = 2220) 57 MG/DL CALC LDL CHOL (test code = 2237) 98 MG/DL RISK RATIO LDL/HDL (test code = 1.72 RATIO 2238) HEMOGLOBIN [id number] 00:00:00 Test Item Value Reference Range Interpretation Comments HEMOGLOBIN A1c (test code = 74363) 11.7 % HEMOGLOBIN [id number] 00:00:00 Test Item Value Reference Range Interpretation Comments HEMOGLOBIN A1c (test code = 06212) 11.7 % HEMOGLOBIN [id number] 00:00:00 Test Item Value Reference Range Interpretation Comments HEMOGLOBIN A1c (test code = 88125) 11.7 % COMPREHENSIVE METABOLIC [id number] 00:00:00 Test Item Value Reference Range Interpretation Comments GLUCOSE (test code = 2217) 209 MG/DL BUN (test code = 2208) 12 MG/DL CREATININE (test code = 2214) 0.73 MG/DL eGFR (2020 CKD-EPI) (test 106 ML/MIN/1.73 code = 69831) CALC BUN/CREAT (test code = 16 RATIO [...] code = 2219) 32 U/L COMPREHENSIVE METABOLIC [id number] 00:00:00 Test Item Value Reference Range Interpretation Comments GLUCOSE (test code = 2217) 209 MG/DL BUN (test code = 2208) 12 MG/DL CREATININE (test code = 2214) 0.73 MG/DL eGFR (2020 CKD-EPI) (test 106 ML/MIN/1.73 code = 26377) CALC BUN/CREAT (test code = 16 RATIO [...] (test code = 2219) 32 U/L LIPID [id number] 00:00:00 Test Item Value Reference Range Interpretation Comments CHOLESTEROL (test code = 2210) 184 MG/DL TRIGLYCERIDES (test code = 2232) 196 MG/DL HDL CHOLESTEROL (test code = 2220) 57 MG/DL CALC LDL CHOL (test code = 2237) 98 MG/DL RISK RATIO LDL/HDL (test code = 1.72 RATIO 2238) LIPID [id number] 00:00:00 Test Item Value Reference Range Interpretation Comments CHOLESTEROL (test code = 2210) 184 MG/DL TRIGLYCERIDES (test code = 2232) 196 MG/DL HDL CHOLESTEROL (test code = 2220) 57 MG/DL CALC LDL CHOL (test code = 2237) 98 MG/DL RISK RATIO LDL/HDL (test code = 1.72 RATIO 2238) HEMOGLOBIN [id number] 00:00:00 Test Item Value Reference Range Interpretation Comments HEMOGLOBIN A1c (test code = 81271) 11.7 % HEMOGLOBIN [id number] 00:00:00 Test Item Value Reference Range Interpretation Comments HEMOGLOBIN A1c (test code = 18643) 11.7 % HEMOGLOBIN [id number] 00:00:00 Test Item Value Reference Range Interpretation Comments HEMOGLOBIN A1c (test code = 52982) 11.7 % HEMOGLOBIN [id number] 00:00:00 Test Item Value Reference Range Interpretation Comments HEMOGLOBIN A1c (test code = 44188) 12.1 % HEMOGLOBIN [id number] 00:00:00 Test Item Value Reference Range Interpretation Comments HEMOGLOBIN A1c (test code = 34642) 12.1 % HEMOGLOBIN [id number] 00:00:00 Test Item Value Reference Range Interpretation Comments HEMOGLOBIN A1c (test code = 31219) 12.1 % HEMOGLOBIN [id number] 00:00:00 Test Item Value Reference Range Interpretation Comments HEMOGLOBIN A1c (test code = 70050) 12.1 % HEMOGLOBIN [id number] 00:00:00 Test Item Value Reference Range Interpretation Comments HEMOGLOBIN A1c (test code = 00204) 12.1 % HEMOGLOBIN [id number] 00:00:00 Test Item Value Reference Range Interpretation Comments HEMOGLOBIN A1c (test code = 19040) 12.1 % HEMOGLOBIN [id number] 00:00:00 Test Item Value Reference Range Interpretation Comments HEMOGLOBIN A1c (test code = 71509) 12.1 % HEMOGLOBIN [id number] 00:00:00 Test Item Value Reference Range Interpretation Comments HEMOGLOBIN A1c (test code = 92788) 12.1 % HEMOGLOBIN [id number] 00:00:00 Test Item Value Reference Range Interpretation Comments HEMOGLOBIN A1c (test code = 35575) 12.1 % HEMOGLOBIN [id number] 00:00:00 Test Item Value Reference Range Interpretation Comments HEMOGLOBIN A1c (test code = 62822) 12.1 % HEMOGLOBIN [id number] 00:00:00 Test Item Value Reference Range Interpretation Comments HEMOGLOBIN A1c (test code = 34412) 12.1 % HEMOGLOBIN [id number] 00:00:00 Test Item Value Reference Range Interpretation Comments HEMOGLOBIN A1c (test code = 22707) 12.1 % COMPREHENSIVE METABOLIC [id number] 00:00:00 Test Item Value Reference Range Interpretation Comments GLUCOSE (test code = 2217) 354 MG/DL BUN (test code = 2208) 18 MG/DL CREATININE (test code = 2214) 0.96 MG/DL eGFR AMER. (test code 101 ML/MIN/1.73 = 65151) eGFR NON- AMER. (test 87 ML/MIN/1.73 code = 35899) CALC BUN/CREAT (test code = 19 RATIO [...] code = 2219) 37 U/L CBC W/AUTO [id number] 00:00:00 Test Item Value Reference Range Interpretation [...] NUCLEATED RBCS (test code = 0.00 K/UL 41616) CBC W/AUTO [id number] 00:00:00 Test Item Value Reference Range Interpretation [...] NUCLEATED RBCS (test code = 0.00 K/UL 28018) CBC W/AUTO [id number] 00:00:00 Test Item Value Reference Range Interpretation [...] NUCLEATED RBCS (test code = 0.00 K/UL 92359) LIPID [id number] 00:00:00 Test Item Value Reference Range Interpretation Comments CHOLESTEROL (test code = 2210) 200 MG/DL TRIGLYCERIDES (test code = 2232) 151 MG/DL HDL CHOLESTEROL (test code = 2220) 44 MG/DL CALC LDL CHOL (test code = 2237) 130 MG/DL RISK RATIO LDL/HDL (test code = 2.95 RATIO 2238) LIPID [id number] 00:00:00 Test Item Value Reference Range Interpretation Comments CHOLESTEROL (test code = 2210) 200 MG/DL TRIGLYCERIDES (test code = 2232) 151 MG/DL HDL CHOLESTEROL (test code = 2220) 44 MG/DL CALC LDL CHOL (test code = 2237) 130 MG/DL RISK RATIO LDL/HDL (test code = 2.95 RATIO 2238) COMPREHENSIVE METABOLIC [id number] 00:00:00 Test Item Value Reference Range Interpretation Comments GLUCOSE (test code = 2217) 354 MG/DL BUN (test code = 2208) 18 MG/DL CREATININE (test code = 2214) 0.96 MG/DL eGFR AMER. (test code 101 ML/MIN/1.73 = 92383) eGFR NON- AMER. (test 87 ML/MIN/1.73 code = 58866) CALC BUN/CREAT (test code = 19 RATIO [...] code = 2219) 37 U/L COMPREHENSIVE METABOLIC [id number] 00:00:00 Test Item Value Reference Range Interpretation Comments GLUCOSE (test code = 2217) 354 MG/DL BUN (test code = 2208) 18 MG/DL CREATININE (test code = 2214) 0.96 MG/DL eGFR AMER. (test code 101 ML/MIN/1.73 = 06961) eGFR NON- AMER. (test 87 ML/MIN/1.73 code = 76291) CALC BUN/CREAT (test code = 19 RATIO [...] code = 2219) 37 U/L CBC W/AUTO [id number] 00:00:00 Test Item Value Reference Range Interpretation [...] NUCLEATED RBCS (test code = 0.00 K/UL 26737) CBC W/AUTO [id number] 00:00:00 Test Item Value Reference Range Interpretation [...] NUCLEATED RBCS (test code = 0.00 K/UL 62337) CBC W/AUTO [id number] 00:00:00 Test Item Value Reference Range Interpretation [...] NUCLEATED RBCS (test code = 0.00 K/UL 11270) LIPID [id number] 00:00:00 Test Item Value Reference Range Interpretation Comments CHOLESTEROL (test code = 2210) 200 MG/DL TRIGLYCERIDES (test code = 2232) 151 MG/DL HDL CHOLESTEROL (test code = 2220) 44 MG/DL CALC LDL CHOL (test code = 2237) 130 MG/DL RISK RATIO LDL/HDL (test code = 2.95 RATIO 2238) LIPID [id number] 00:00:00 Test Item Value Reference Range Interpretation Comments CHOLESTEROL (test code = 2210) 200 MG/DL TRIGLYCERIDES (test code = 2232) 151 MG/DL HDL CHOLESTEROL (test code = 2220) 44 MG/DL CALC LDL CHOL (test code = 2237) 130 MG/DL RISK RATIO LDL/HDL (test code = 2.95 RATIO 2238) COMPREHENSIVE METABOLIC [id number] 00:00:00 Test Item Value Reference Range Interpretation Comments GLUCOSE (test code = 2217) 354 MG/DL BUN (test code = 2208) 18 MG/DL CREATININE (test code = 2214) 0.96 MG/DL eGFR AMER. (test code 101 ML/MIN/1.73 = 58462) eGFR NON- AMER. (test 87 ML/MIN/1.73 code = 53690) CALC BUN/CREAT (test code = 19 RATIO [...] code = 2219) 37 U/L COMPREHENSIVE METABOLIC [id number] 00:00:00 Test Item Value Reference Range Interpretation Comments GLUCOSE (test code = 2217) 354 MG/DL BUN (test code = 2208) 18 MG/DL CREATININE (test code = 2214) 0.96 MG/DL eGFR AMER. (test code 101 ML/MIN/1.73 = 46790) eGFR NON- AMER. (test 87 ML/MIN/1.73 code = 16769) CALC BUN/CREAT (test code = 19 RATIO [...] code = 2219) 37 U/L CBC W/AUTO [id number] 00:00:00 Test Item Value Reference Range Interpretation [...] NUCLEATED RBCS (test code = 0.00 K/UL 04423) CBC W/AUTO [id number] 00:00:00 Test Item Value Reference Range Interpretation [...] NUCLEATED RBCS (test code = 0.00 K/UL 87881) CBC W/AUTO [id number] 00:00:00 Test Item Value Reference Range Interpretation [...] NUCLEATED RBCS (test code = 0.00 K/UL 75744) LIPID [id number] 00:00:00 Test Item Value Reference Range Interpretation Comments CHOLESTEROL (test code = 2210) 200 MG/DL TRIGLYCERIDES (test code = 2232) 151 MG/DL HDL CHOLESTEROL (test code = 2220) 44 MG/DL CALC LDL CHOL (test code = 2237) 130 MG/DL RISK RATIO LDL/HDL (test code = 2.95 RATIO 2238) LIPID [id number] 00:00:00 Test Item Value Reference Range Interpretation Comments CHOLESTEROL (test code = 2210) 200 MG/DL TRIGLYCERIDES (test code = 2232) 151 MG/DL HDL CHOLESTEROL (test code = 2220) 44 MG/DL CALC LDL CHOL (test code = 2237) 130 MG/DL RISK RATIO LDL/HDL (test code = 2.95 RATIO 2238) COMPREHENSIVE METABOLIC [id number] 00:00:00 Test Item Value Reference Range Interpretation Comments GLUCOSE (test code = 2217) 354 MG/DL BUN (test code = 2208) 18 MG/DL CREATININE (test code = 2214) 0.96 MG/DL eGFR AMER. (test code 101 ML/MIN/1.73 = 34639) eGFR NON- AMER. (test 87 ML/MIN/1.73 code = 73834) CALC BUN/CREAT (test code = 19 RATIO [...] code = 2219) 37 U/L COMPREHENSIVE METABOLIC [id number] 00:00:00 Test Item Value Reference Range Interpretation Comments GLUCOSE (test code = 2217) 354 MG/DL BUN (test code = 2208) 18 MG/DL CREATININE (test code = 2214) 0.96 MG/DL eGFR AMER. (test code 101 ML/MIN/1.73 = 07572) eGFR NON- AMER. (test 87 ML/MIN/1.73 code = 71672) CALC BUN/CREAT (test code = 19 RATIO [...] code = 2219) 37 U/L CBC W/AUTO [id number] 00:00:00 Test Item Value Reference Range Interpretation [...] NUCLEATED RBCS (test code = 0.00 K/UL 64989) CBC W/AUTO [id number] 00:00:00 Test Item Value Reference Range Interpretation [...] NUCLEATED RBCS (test code = 0.00 K/UL 86712) CBC W/AUTO [id number] 00:00:00 Test Item Value Reference Range Interpretation [...] NUCLEATED RBCS (test code = 0.00 K/UL 33197) LIPID [id number] 00:00:00 Test Item Value Reference Range Interpretation Comments CHOLESTEROL (test code = 2210) 200 MG/DL TRIGLYCERIDES (test code = 2232) 151 MG/DL HDL CHOLESTEROL (test code = 2220) 44 MG/DL CALC LDL CHOL (test code = 2237) 130 MG/DL RISK RATIO LDL/HDL (test code = 2.95 RATIO 2238) LIPID [id number] 00:00:00 Test Item Value Reference Range Interpretation Comments CHOLESTEROL (test code = 2210) 200 MG/DL TRIGLYCERIDES (test code = 2232) 151 MG/DL HDL CHOLESTEROL (test code = 2220) 44 MG/DL CALC LDL CHOL (test code = 2237) 130 MG/DL RISK RATIO LDL/HDL (test code = 2.95 RATIO 2238) COMPREHENSIVE METABOLIC [id number] 00:00:00 Test Item Value Reference Range Interpretation Comments GLUCOSE (test code = 2217) 354 MG/DL BUN (test code = 2208) 18 MG/DL CREATININE (test code = 2214) 0.96 MG/DL eGFR AMER. (test code 101 ML/MIN/1.73 = 14808) eGFR NON- AMER. (test 87 ML/MIN/1.73 code = 04173) CALC BUN/CREAT (test code = 19 RATIO [...] code = 2219) 37 U/L COMPREHENSIVE METABOLIC [id number] 00:00:00 Test Item Value Reference Range Interpretation Comments GLUCOSE (test code = 2217) 338 MG/DL BUN (test code = 2208) 25 MG/DL CREATININE (test code = 2214) 1.00 MG/DL eGFR AMER. (test code 96 ML/MIN/1.73 = 31844) eGFR NON- AMER. (test 83 ML/MIN/1.73 code = 88182) CALC BUN/CREAT (test code = 25 RATIO [...] code = 2219) 22 U/L COMPREHENSIVE METABOLIC [id number] 00:00:00 Test Item Value Reference Range Interpretation Comments GLUCOSE (test code = 2217) 338 MG/DL BUN (test code = 2208) 25 MG/DL CREATININE (test code = 2214) 1.00 MG/DL eGFR AMER. (test code 96 ML/MIN/1.73 = 36433) eGFR NON- AMER. (test 83 ML/MIN/1.73 code = 43676) CALC BUN/CREAT (test code = 25 RATIO [...] CALC GLOBULIN (test code = 2.9 G/DL 0) CALC A/G RATIO (test code = 1.4 RATIO 2234) BILIRUBIN, TOTAL (test code = 0.3 MG/DL 2206) ALKALINE PHOSPHATASE (test 233 U/L code = 2204) AST (test code = 2218) 14 U/L ALT (test code = 2219) 22 U/L LIPID [id number] 00:00:00 Test Item Value Reference Range Interpretation Comments CHOLESTEROL (test code = 2210) 152 MG/DL TRIGLYCERIDES (test code = 2232) 153 MG/DL HDL CHOLESTEROL (test code = 2220) 48 MG/DL CALC LDL CHOL (test code = 2237) 79 MG/DL RISK RATIO LDL/HDL (test code = 1.65 RATIO 2238) LIPID [id number] 00:00:00 Test Item Value Reference Range Interpretation Comments CHOLESTEROL (test code = 2210) 152 MG/DL TRIGLYCERIDES (test code = 2232) 153 MG/DL HDL CHOLESTEROL (test code = 2220) 48 MG/DL CALC LDL CHOL (test code = 2237) 79 MG/DL RISK RATIO LDL/HDL (test code = 1.65 RATIO 2238) HEMOGLOBIN [id number] 00:00:00 Test Item Value Reference Range Interpretation Comments HEMOGLOBIN A1c (test code = 37601) 10.1 % HEMOGLOBIN [id number] 00:00:00 Test Item Value Reference Range Interpretation Comments HEMOGLOBIN A1c (test code = 05040) 10.1 % HEMOGLOBIN [id number] 00:00:00 Test Item Value Reference Range Interpretation Comments HEMOGLOBIN A1c (test code = 09776) 10.1 % COMPREHENSIVE METABOLIC [id number] 00:00:00 Test Item Value Reference Range Interpretation Comments GLUCOSE (test code = 2217) 338 MG/DL BUN (test code = 2208) 25 MG/DL CREATININE (test code = 2214) 1.00 MG/DL eGFR AMER. (test code 96 ML/MIN/1.73 = 38270) eGFR NON- AMER. (test 83 ML/MIN/1.73 code = 35542) CALC BUN/CREAT (test code = 25 RATIO [...] code = 2219) 22 U/L COMPREHENSIVE METABOLIC [id number] 00:00:00 Test Item Value Reference Range Interpretation Comments GLUCOSE (test code = 2217) 338 MG/DL BUN (test code = 2208) 25 MG/DL CREATININE (test code = 2214) 1.00 MG/DL eGFR AMER. (test code 96 ML/MIN/1.73 = 21384) eGFR NON- AMER. (test 83 ML/MIN/1.73 code = 83844) CALC BUN/CREAT (test code = 25 RATIO [...] (test code = 2219) 22 U/L LIPID [id number] 00:00:00 Test Item Value Reference Range Interpretation Comments CHOLESTEROL (test code = 2210) 152 MG/DL TRIGLYCERIDES (test code = 2232) 153 MG/DL HDL CHOLESTEROL (test code = 2220) 48 MG/DL CALC LDL CHOL (test code = 2237) 79 MG/DL RISK RATIO LDL/HDL (test code = 1.65 RATIO 2238) LIPID [id number] 00:00:00 Test Item Value Reference Range Interpretation Comments CHOLESTEROL (test code = 2210) 152 MG/DL TRIGLYCERIDES (test code = 2232) 153 MG/DL HDL CHOLESTEROL (test code = 2220) 48 MG/DL CALC LDL CHOL (test code = 2237) 79 MG/DL RISK RATIO LDL/HDL (test code = 1.65 RATIO 2238) HEMOGLOBIN [id number] 00:00:00 Test Item Value Reference Range Interpretation Comments HEMOGLOBIN A1c (test code = 15052) 10.1 % HEMOGLOBIN [id number] 00:00:00 Test Item Value Reference Range Interpretation Comments HEMOGLOBIN A1c (test code = 79210) 10.1 % HEMOGLOBIN [id number] 00:00:00 Test Item Value Reference Range Interpretation Comments HEMOGLOBIN A1c (test code = 48536) 10.1 % COMPREHENSIVE METABOLIC [id number] 00:00:00 Test Item Value Reference Range Interpretation Comments GLUCOSE (test code = 2217) 338 MG/DL BUN (test code = 2208) 25 MG/DL CREATININE (test code = 2214) 1.00 MG/DL eGFR AMER. (test code 96 ML/MIN/1.73 = 24572) eGFR NON- AMER. (test 83 ML/MIN/1.73 code = 45938) CALC BUN/CREAT (test code = 25 RATIO [...] code = 2219) 22 U/L COMPREHENSIVE METABOLIC [id number] 00:00:00 Test Item Value Reference Range Interpretation Comments GLUCOSE (test code = 2217) 338 MG/DL BUN (test code = 2208) 25 MG/DL CREATININE (test code = 2214) 1.00 MG/DL eGFR AMER. (test code 96 ML/MIN/1.73 = 62249) eGFR NON- AMER. (test 83 ML/MIN/1.73 code = 99642) CALC BUN/CREAT (test code = 25 RATIO [...] (test code = 2219) 22 U/L LIPID [id number] 00:00:00 Test Item Value Reference Range Interpretation Comments CHOLESTEROL (test code = 2210) 152 MG/DL TRIGLYCERIDES (test code = 2232) 153 MG/DL HDL CHOLESTEROL (test code = 2220) 48 MG/DL CALC LDL CHOL (test code = 2237) 79 MG/DL RISK RATIO LDL/HDL (test code = 1.65 RATIO 2238) LIPID [id number] 00:00:00 Test Item Value Reference Range Interpretation Comments CHOLESTEROL (test code = 2210) 152 MG/DL TRIGLYCERIDES (test code = 2232) 153 MG/DL HDL CHOLESTEROL (test code = 2220) 48 MG/DL CALC LDL CHOL (test code = 2237) 79 MG/DL RISK RATIO LDL/HDL (test code = 1.65 RATIO 2238) HEMOGLOBIN [id number] 00:00:00 Test Item Value Reference Range Interpretation Comments HEMOGLOBIN A1c (test code = 27418) 10.1 % HEMOGLOBIN [id number] 00:00:00 Test Item Value Reference Range Interpretation Comments HEMOGLOBIN A1c (test code = 91095) 10.1 % HEMOGLOBIN [id number] 00:00:00 Test Item Value Reference Range Interpretation Comments HEMOGLOBIN A1c (test code = 03149) 10.1 % COMPREHENSIVE METABOLIC [id number] 00:00:00 Test Item Value Reference Range Interpretation Comments GLUCOSE (test code = 2217) 338 MG/DL BUN (test code = 2208) 25 MG/DL CREATININE (test code = 2214) 1.00 MG/DL eGFR AMER. (test code 96 ML/MIN/1.73 = 75718) eGFR NON- AMER. (test 83 ML/MIN/1.73 code = 43329) CALC BUN/CREAT (test code = 25 RATIO [...] code = 2219) 22 U/L COMPREHENSIVE METABOLIC [id number] 00:00:00 Test Item Value Reference Range Interpretation Comments GLUCOSE (test code = 2217) 338 MG/DL BUN (test code = 2208) 25 MG/DL CREATININE (test code = 2214) 1.00 MG/DL eGFR AMER. (test code 96 ML/MIN/1.73 = 48308) eGFR NON- AMER. (test 83 ML/MIN/1.73 code = 74880) CALC BUN/CREAT (test code = 25 RATIO [...] (test code = 2219) 22 U/L LIPID [id number] 00:00:00 Test Item Value Reference Range Interpretation Comments CHOLESTEROL (test code = 2210) 152 MG/DL TRIGLYCERIDES (test code = 2232) 153 MG/DL HDL CHOLESTEROL (test code = 2220) 48 MG/DL CALC LDL CHOL (test code = 2237) 79 MG/DL RISK RATIO LDL/HDL (test code = 1.65 RATIO 2238) LIPID [id number] 00:00:00 Test Item Value Reference Range Interpretation Comments CHOLESTEROL (test code = 2210) 152 MG/DL TRIGLYCERIDES (test code = 2232) 153 MG/DL HDL CHOLESTEROL (test code = 2220) 48 MG/DL CALC LDL CHOL (test code = 2237) 79 MG/DL RISK RATIO LDL/HDL (test code = 1.65 RATIO 2238) HEMOGLOBIN [id number] 00:00:00 Test Item Value Reference Range Interpretation Comments HEMOGLOBIN A1c (test code = 69169) 10.1 % HEMOGLOBIN [id number] 00:00:00 Test Item Value Reference Range Interpretation Comments HEMOGLOBIN A1c (test code = 40894) 10.1 % HEMOGLOBIN [id number] 00:00:00 Test Item Value Reference Range Interpretation Comments HEMOGLOBIN A1c (test code = 60295) 10.1 % COMPREHENSIVE METABOLIC [id number] 00:00:00 Test Item Value Reference Range Interpretation Comments GLUCOSE (test code = 2217) 177 MG/DL BUN (test code = 2208) 11 MG/DL CREATININE (test code = 2214) 0.67 MG/DL eGFR AMER. (test code 124 ML/MIN/1.73 = 13646) eGFR NON- AMER. (test 107 ML/MIN/1.73 code = 75743) CALC BUN/CREAT (test code = 16 RATIO [...] code = 2219) 27 U/L COMPREHENSIVE METABOLIC [id number] 00:00:00 Test Item Value Reference Range Interpretation Comments GLUCOSE (test code = 2217) 177 MG/DL BUN (test code = 2208) 11 MG/DL CREATININE (test code = 2214) 0.67 MG/DL eGFR AMER. (test code 124 ML/MIN/1.73 = 64537) eGFR NON- AMER. (test 107 ML/MIN/1.73 code = 08157) CALC BUN/CREAT (test code = 16 RATIO [...] (test code = 2219) 27 U/L LIPID [id number] 00:00:00 Test Item Value Reference Range Interpretation Comments CHOLESTEROL (test code = 2210) 127 MG/DL TRIGLYCERIDES (test code = 2232) 99 MG/DL HDL CHOLESTEROL (test code = 2220) 43 MG/DL CALC LDL CHOL (test code = 2237) 66 MG/DL RISK RATIO LDL/HDL (test code = 1.53 RATIO 2238) LIPID [id number] 00:00:00 Test Item Value Reference Range Interpretation Comments CHOLESTEROL (test code = 2210) 127 MG/DL TRIGLYCERIDES (test code = 2232) 99 MG/DL HDL CHOLESTEROL (test code = 2220) 43 MG/DL CALC LDL CHOL (test code = 2237) 66 MG/DL RISK RATIO LDL/HDL (test code = 1.53 RATIO 2238) COMPREHENSIVE METABOLIC [id number] 00:00:00 Test Item Value Reference Range Interpretation Comments GLUCOSE (test code = 2217) 177 MG/DL BUN (test code = 2208) 11 MG/DL CREATININE (test code = 2214) 0.67 MG/DL eGFR AMER. (test code 124 ML/MIN/1.73 = 20202) eGFR NON- AMER. (test 107 ML/MIN/1.73 code = 74694) CALC BUN/CREAT (test code = 16 RATIO [...] code = 2219) 27 U/L COMPREHENSIVE METABOLIC [id number] 00:00:00 Test Item Value Reference Range Interpretation Comments GLUCOSE (test code = 2217) 177 MG/DL BUN (test code = 2208) 11 MG/DL CREATININE (test code = 2214) 0.67 MG/DL eGFR AMER. (test code 124 ML/MIN/1.73 = 67663) eGFR NON- AMER. (test 107 ML/MIN/1.73 code = 48052) CALC BUN/CREAT (test code = 16 RATIO [...] (test code = 2219) 27 U/L LIPID [id number] 00:00:00 Test Item Value Reference Range Interpretation Comments CHOLESTEROL (test code = 2210) 127 MG/DL TRIGLYCERIDES (test code = 2232) 99 MG/DL HDL CHOLESTEROL (test code = 2220) 43 MG/DL CALC LDL CHOL (test code = 2237) 66 MG/DL RISK RATIO LDL/HDL (test code = 1.53 RATIO 2238) LIPID [id number] 00:00:00 Test Item Value Reference Range Interpretation Comments CHOLESTEROL (test code = 2210) 127 MG/DL TRIGLYCERIDES (test code = 2232) 99 MG/DL HDL CHOLESTEROL (test code = 2220) 43 MG/DL CALC LDL CHOL (test code = 2237) 66 MG/DL RISK RATIO LDL/HDL (test code = 1.53 RATIO 2238) COMPREHENSIVE METABOLIC [id number] 00:00:00 Test Item Value Reference Range Interpretation Comments GLUCOSE (test code = 2217) 177 MG/DL BUN (test code = 2208) 11 MG/DL CREATININE (test code = 2214) 0.67 MG/DL eGFR AMER. (test code 124 ML/MIN/1.73 = 15024) eGFR NON- AMER. (test 107 ML/MIN/1.73 code = 46578) CALC BUN/CREAT (test code = 16 RATIO [...] code = 2219) 27 U/L COMPREHENSIVE METABOLIC [id number] 00:00:00 Test Item Value Reference Range Interpretation Comments GLUCOSE (test code = 2217) 177 MG/DL BUN (test code = 2208) 11 MG/DL CREATININE (test code = 2214) 0.67 MG/DL eGFR AMER. (test code 124 ML/MIN/1.73 = 51351) eGFR NON- AMER. (test 107 ML/MIN/1.73 code = 91124) CALC BUN/CREAT (test code = 16 RATIO [...] (test code = 2219) 27 U/L LIPID [id number] 00:00:00 Test Item Value Reference Range Interpretation Comments CHOLESTEROL (test code = 2210) 127 MG/DL TRIGLYCERIDES (test code = 2232) 99 MG/DL HDL CHOLESTEROL (test code = 2220) 43 MG/DL CALC LDL CHOL (test code = 2237) 66 MG/DL RISK RATIO LDL/HDL (test code = 1.53 RATIO 2238) LIPID [id number] 00:00:00 Test Item Value Reference Range Interpretation Comments CHOLESTEROL (test code = 2210) 127 MG/DL TRIGLYCERIDES (test code = 2232) 99 MG/DL HDL CHOLESTEROL (test code = 2220) 43 MG/DL CALC LDL CHOL (test code = 2237) 66 MG/DL RISK RATIO LDL/HDL (test code = 1.53 RATIO 2238) COMPREHENSIVE METABOLIC [id number] 00:00:00 Test Item Value Reference Range Interpretation Comments GLUCOSE (test code = 2217) 177 MG/DL BUN (test code = 2208) 11 MG/DL CREATININE (test code = 2214) 0.67 MG/DL eGFR AMER. (test code 124 ML/MIN/1.73 = 92068) eGFR NON- AMER. (test 107 ML/MIN/1.73 code = 86685) CALC BUN/CREAT (test code = 16 RATIO [...] code = 2219) 27 U/L COMPREHENSIVE METABOLIC [id number] 00:00:00 Test Item Value Reference Range Interpretation Comments GLUCOSE (test code = 2217) 177 MG/DL BUN (test code = 2208) 11 MG/DL CREATININE (test code = 2214) 0.67 MG/DL eGFR AMER. (test code 124 ML/MIN/1.73 = 40662) eGFR NON- AMER. (test 107 ML/MIN/1.73 code = 26867) CALC BUN/CREAT (test code = 16 RATIO [...] (test code = 2219) 27 U/L LIPID [id number] 00:00:00 Test Item Value Reference Range Interpretation Comments CHOLESTEROL (test code = 2210) 127 MG/DL TRIGLYCERIDES (test code = 2232) 99 MG/DL HDL CHOLESTEROL (test code = 2220) 43 MG/DL CALC LDL CHOL (test code = 2237) 66 MG/DL RISK RATIO LDL/HDL (test code = 1.53 RATIO 2238) LIPID [id number] 00:00:00 Test Item Value Reference Range Interpretation Comments CHOLESTEROL (test code = 2210) 127 MG/DL TRIGLYCERIDES (test code = 2232) 99 MG/DL HDL CHOLESTEROL (test code = 2220) 43 MG/DL CALC LDL CHOL (test code = 2237) 66 MG/DL RISK RATIO LDL/HDL (test code = 1.53 RATIO 2238) COMPREHENSIVE METABOLIC [id number] 00:00:00 Test Item Value Reference Range Interpretation Comments GLUCOSE (test code = 2217) 161 MG/DL BUN (test code = 2208) 8 MG/DL CREATININE (test code = 2214) 0.85 MG/DL eGFR AMER. (test code 113 ML/MIN/1.73 = 20607) eGFR NON- AMER. (test 97 ML/MIN/1.73 code = 72978) CALC BUN/CREAT (test code = 9 RATIO 2235) SODIUM (test code = 2231) 141 MEQ/L POTASSIUM (test code = 2228) 3.7 MEQ/L CHLORIDE (test code = 2215) 103 MEQ/L CARBON DIOXIDE (test code = 27 MEQ/L 220) CALCIUM (test code = 2209) 9.2 MG/DL PROTEIN, TOTAL (test code = 7.4 G/DL 2228) ALBUMIN (test code = 2201) 4.4 G/DL CALC GLOBULIN (test code = 3.0 G/DL 2239) CALC A/G RATIO (test code = 1.5 RATIO 4) BILIRUBIN, TOTAL (test code = 0.4 MG/DL 2206) ALKALINE PHOSPHATASE (test 101 U/L code = 2204) AST (test code = 2218) 17 U/L ALT (test code = 2219) 16 U/L COMPREHENSIVE METABOLIC [id number] 00:00:00 Test Item Value Reference Range Interpretation Comments GLUCOSE (test code = 2217) 161 MG/DL BUN (test code = 2208) 8 MG/DL CREATININE (test code = 2214) 0.85 MG/DL eGFR AMER. (test code 113 ML/MIN/1.73 = 14543) eGFR NON- AMER. (test 97 ML/MIN/1.73 code = 79188) CALC BUN/CREAT (test code = 9 RATIO [...] = 0.4 MG/DL 220) ALKALINE PHOSPHATASE (test 101 U/L code = 2204) AST (test code = 2218) 17 U/L ALT (test code = 2219) 16 U/L COMPREHENSIVE METABOLIC [id number] 00:00:00 Test Item Value Reference Range Interpretation Comments GLUCOSE (test code = 2217) 161 MG/DL BUN (test code = 2208) 8 MG/DL CREATININE (test code = 2214) 0.85 MG/DL eGFR AMER. (test code 113 ML/MIN/1.73 = 30925) eGFR NON- AMER. (test 97 ML/MIN/1.73 code = 82683) CALC BUN/CREAT (test code = 9 RATIO 2235) SODIUM (test code = 2231) 141 MEQ/L POTASSIUM (test code = 2228) 3.7 MEQ/L CHLORIDE (test code = 2215) 103 MEQ/L CARBON DIOXIDE (test code = 27 MEQ/L 220) CALCIUM (test code = 2209) 9.2 MG/DL [...] code = 2219) 16 U/L COMPREHENSIVE METABOLIC [id number] 00:00:00 Test Item Value Reference Range Interpretation Comments GLUCOSE (test code = 2217) 161 MG/DL BUN (test code = 2208) 8 MG/DL CREATININE (test code = 2214) 0.85 MG/DL eGFR AMER. (test code 113 ML/MIN/1.73 = 08974) eGFR NON- AMER. (test 97 ML/MIN/1.73 code = 93879) CALC BUN/CREAT (test code = 9 RATIO [...] ALKALINE PHOSPHATASE (test 101 U/L code = 2203) AST (test code = 2218) 17 U/L ALT (test code = 2219) 16 U/L COMPREHENSIVE METABOLIC [id number] 00:00:00 Test Item Value Reference Range Interpretation Comments GLUCOSE (test code = 2217) 161 MG/DL BUN (test code = 2208) 8 MG/DL CREATININE (test code = 2214) 0.85 MG/DL eGFR AMER. (test code 113 ML/MIN/1.73 = 96941) eGFR NON- AMER. (test 97 ML/MIN/1.73 code = 67273) CALC BUN/CREAT (test code = 9 RATIO 2235) SODIUM (test code = 2231) 141 MEQ/L POTASSIUM (test code = 2228) 3.7 MEQ/L CHLORIDE (test code = 2215) 103 MEQ/L CARBON DIOXIDE (test code = 27 MEQ/L 220) CALCIUM (test code = 2209) 9.2 MG/DL [...] code = 2219) 16 U/L COMPREHENSIVE METABOLIC [id number] 00:00:00 Test Item Value Reference Range Interpretation Comments GLUCOSE (test code = 2217) 161 MG/DL BUN (test code = 2208) 8 MG/DL CREATININE (test code = 2214) 0.85 MG/DL eGFR AMER. (test code 113 ML/MIN/1.73 = 26912) eGFR NON- AMER. (test 97 ML/MIN/1.73 code = 76118) CALC BUN/CREAT (test code = 9 RATIO [...] code = 2219) 16 U/L COMPREHENSIVE METABOLIC [id number] 00:00:00 Test Item Value Reference Range Interpretation Comments GLUCOSE (test code = 2217) 161 MG/DL BUN (test code = 2208) 8 MG/DL CREATININE (test code = 2214) 0.85 MG/DL eGFR AMER. (test code 113 ML/MIN/1.73 = 76786) eGFR NON- AMER. (test 97 ML/MIN/1.73 code = 63360) CALC BUN/CREAT (test code = 9 RATIO 2235) SODIUM (test code = 2231) 141 MEQ/L POTASSIUM (test code = 2228) 3.7 MEQ/L CHLORIDE (test code = 2215) 103 MEQ/L CARBON DIOXIDE (test code = 27 MEQ/L 220) CALCIUM (test code = 2209) 9.2 MG/DL PROTEIN, TOTAL (test code = 7.4 G/DL 2228) ALBUMIN (test code = 2201) 4.4 G/DL CALC GLOBULIN (test code = 3.0 G/DL 2240) CALC A/G RATIO (test code = 1.5 RATIO 2234) BILIRUBIN, TOTAL (test code = 0.4 MG/DL 220) ALKALINE PHOSPHATASE (test 101 U/L code = 2204) AST (test code = 2218) 17 U/L ALT (test code = 2219) 16 U/L COMPREHENSIVE METABOLIC [id number] 00:00:00 Test Item Value Reference Range Interpretation Comments GLUCOSE (test code = 2217) 161 MG/DL BUN (test code = 2208) 8 MG/DL CREATININE (test code = 2214) 0.85 MG/DL eGFR AMER. (test code 113 ML/MIN/1.73 = 07117) eGFR NON- AMER. (test 97 ML/MIN/1.73 code = 54230) CALC BUN/CREAT (test code = 9 RATIO [...] (test code = 2219) 16 U/L LIPID [id number] 00:00:00 Test Item Value Reference Range Interpretation Comments CHOLESTEROL (test code = 2210) 94 MG/DL TRIGLYCERIDES (test code = 2232) 142 MG/DL HDL CHOLESTEROL (test code = 2220) 33 MG/DL CALC LDL CHOL (test code = 2237) 38 MG/DL RISK RATIO LDL/HDL (test code = 1.15 RATIO 2238) LIPID [id number] 00:00:00 Test Item Value Reference Range Interpretation Comments CHOLESTEROL (test code = 2210) 94 MG/DL TRIGLYCERIDES (test code = 2232) 142 MG/DL HDL CHOLESTEROL (test code = 2220) 33 MG/DL CALC LDL CHOL (test code = 2237) 38 MG/DL RISK RATIO LDL/HDL (test code = 1.15 RATIO 2238) COMPREHENSIVE METABOLIC [id number] 00:00:00 Test Item Value Reference Range Interpretation Comments GLUCOSE (test code = 2217) 142 MG/DL BUN (test code = 2208) 10 MG/DL CREATININE (test code = 2214) 0.96 MG/DL eGFR AMER. (test code 102 ML/MIN/1.73 = 06732) eGFR NON- AMER. (test 88 ML/MIN/1.73 code = 78649) CALC BUN/CREAT (test code = 10 RATIO [...] CALC GLOBULIN (test code = 3.1 G/DL 0) CALC A/G RATIO (test code = 1.2 RATIO 4) BILIRUBIN, TOTAL (test code = 0.3 MG/DL 2206) ALKALINE PHOSPHATASE (test 122 U/L code = 2204) AST (test code = 2218) 14 U/L ALT (test code = 2219) 15 U/L COMPREHENSIVE METABOLIC [id number] 00:00:00 Test Item Value Reference Range Interpretation Comments GLUCOSE (test code = 2217) 142 MG/DL BUN (test code = 2208) 10 MG/DL CREATININE (test code = 2214) 0.96 MG/DL eGFR AMER. (test code 102 ML/MIN/1.73 = 10233) eGFR NON- AMER. (test 88 ML/MIN/1.73 code = 94216) CALC BUN/CREAT (test code = 10 RATIO [...] (test code = 2219) 15 U/L LIPID [id number] 00:00:00 Test Item Value Reference Range Interpretation Comments CHOLESTEROL (test code = 2210) 94 MG/DL TRIGLYCERIDES (test code = 2232) 142 MG/DL HDL CHOLESTEROL (test code = 2220) 33 MG/DL CALC LDL CHOL (test code = 2237) 38 MG/DL RISK RATIO LDL/HDL (test code = 1.15 RATIO 2238) LIPID [id number] 00:00:00 Test Item Value Reference Range Interpretation Comments CHOLESTEROL (test code = 2210) 94 MG/DL TRIGLYCERIDES (test code = 2232) 142 MG/DL HDL CHOLESTEROL (test code = 2220) 33 MG/DL CALC LDL CHOL (test code = 2237) 38 MG/DL RISK RATIO LDL/HDL (test code = 1.15 RATIO 2238) COMPREHENSIVE METABOLIC [id number] 00:00:00 Test Item Value Reference Range Interpretation Comments GLUCOSE (test code = 2217) 142 MG/DL BUN (test code = 2208) 10 MG/DL CREATININE (test code = 2214) 0.96 MG/DL eGFR AMER. (test code 102 ML/MIN/1.73 = 88571) eGFR NON- AMER. (test 88 ML/MIN/1.73 code = 04108) CALC BUN/CREAT (test code = 10 RATIO 2235) SODIUM (test code = 2231) 140 MEQ/L POTASSIUM (test code = 2228) 3.3 MEQ/L CHLORIDE (test code = 2215) 102 MEQ/L CARBON DIOXIDE (test code = 24 MEQ/L 2205) CALCIUM (test code = 2209) 8.7 MG/DL PROTEIN, TOTAL (test code = 6.9 G/DL 222) ALBUMIN (test code = 2201) 3.8 G/DL CALC GLOBULIN (test code = 3.1 G/DL 2240) CALC A/G RATIO (test code = 1.2 RATIO 2234) BILIRUBIN, TOTAL (test code = 0.3 MG/DL 220) ALKALINE PHOSPHATASE (test 122 U/L code = 2204) AST (test code = 2218) 14 U/L ALT (test code = 2219) 15 U/L COMPREHENSIVE METABOLIC [id number] 00:00:00 Test Item Value Reference Range Interpretation Comments GLUCOSE (test code = 2217) 142 MG/DL BUN (test code = 2208) 10 MG/DL CREATININE (test code = 2214) 0.96 MG/DL eGFR AMER. (test code 102 ML/MIN/1.73 = 29271) eGFR NON- AMER. (test 88 ML/MIN/1.73 code = 26869) CALC BUN/CREAT (test code = 10 RATIO [...] (test code = 2219) 15 U/L LIPID [id number] 00:00:00 Test Item Value Reference Range Interpretation Comments CHOLESTEROL (test code = 2210) 94 MG/DL TRIGLYCERIDES (test code = 2232) 142 MG/DL HDL CHOLESTEROL (test code = 2220) 33 MG/DL CALC LDL CHOL (test code = 2237) 38 MG/DL RISK RATIO LDL/HDL (test code = 1.15 RATIO 2238) LIPID [id number] 00:00:00 Test Item Value Reference Range Interpretation Comments CHOLESTEROL (test code = 2210) 94 MG/DL TRIGLYCERIDES (test code = 2232) 142 MG/DL HDL CHOLESTEROL (test code = 2220) 33 MG/DL CALC LDL CHOL (test code = 2237) 38 MG/DL RISK RATIO LDL/HDL (test code = 1.15 RATIO 2238) COMPREHENSIVE METABOLIC [id number] 00:00:00 Test Item Value Reference Range Interpretation Comments GLUCOSE (test code = 2217) 142 MG/DL BUN (test code = 2208) 10 MG/DL CREATININE (test code = 2214) 0.96 MG/DL eGFR AMER. (test code 102 ML/MIN/1.73 = 63023) eGFR NON- AMER. (test 88 ML/MIN/1.73 code = 54261) CALC BUN/CREAT (test code = 10 RATIO [...] code = 2219) 15 U/L COMPREHENSIVE METABOLIC [id number] 00:00:00 Test Item Value Reference Range Interpretation Comments GLUCOSE (test code = 2217) 142 MG/DL BUN (test code = 2208) 10 MG/DL CREATININE (test code = 2214) 0.96 MG/DL eGFR AMER. (test code 102 ML/MIN/1.73 = 67628) eGFR NON- AMER. (test 88 ML/MIN/1.73 code = 23351) CALC BUN/CREAT (test code = 10 RATIO [...] CALC GLOBULIN (test code = 3.1 G/DL 2239) CALC A/G RATIO (test code = 1.2 RATIO 2234) BILIRUBIN, TOTAL (test code = 0.3 MG/DL 2206) ALKALINE PHOSPHATASE (test 122 U/L code = 2204) AST (test code = 2218) 14 U/L ALT (test code = 2219) 15 U/L LIPID [id number] 00:00:00 Test Item Value Reference Range Interpretation Comments CHOLESTEROL (test code = 2210) 94 MG/DL TRIGLYCERIDES (test code = 2232) 142 MG/DL HDL CHOLESTEROL (test code = 2220) 33 MG/DL CALC LDL CHOL (test code = 2237) 38 MG/DL RISK RATIO LDL/HDL (test code = 1.15 RATIO 2238) LIPID [id number] 00:00:00 Test Item Value Reference Range Interpretation Comments CHOLESTEROL (test code = 2210) 94 MG/DL TRIGLYCERIDES (test code = 2232) 142 MG/DL HDL CHOLESTEROL (test code = 2220) 33 MG/DL CALC LDL CHOL (test code = 2237) 38 MG/DL RISK RATIO LDL/HDL (test code = 1.15 RATIO 2238) COMPREHENSIVE METABOLIC [id number] 00:00:00 Test Item Value Reference Range Interpretation Comments GLUCOSE (test code = 2217) 142 MG/DL BUN (test code = 2208) 10 MG/DL CREATININE (test code = 2214) 0.96 MG/DL eGFR AMER. (test code 102 ML/MIN/1.73 = 13288) eGFR NON- AMER. (test 88 ML/MIN/1.73 code = 21153) CALC BUN/CREAT (test code = 10 RATIO [...] code = 2219) 15 U/L COMPREHENSIVE METABOLIC [id number] 00:00:00 Test Item Value Reference Range Interpretation Comments GLUCOSE (test code = 2217) 142 MG/DL BUN (test code = 2208) 10 MG/DL CREATININE (test code = 2214) 0.96 MG/DL eGFR AMER. (test code 102 ML/MIN/1.73 = 32224) eGFR NON- AMER. (test 88 ML/MIN/1.73 code = 98979) CALC BUN/CREAT (test code = 10 RATIO [...] (test code = 2219) 15 U/L HEMOGLOBIN [id number] 00:00:00 Test Item Value Reference Range Interpretation Comments HEMOGLOBIN A1c (test code = 69362) 9.0 % HEMOGLOBIN [id number] 00:00:00 Test Item Value Reference Range Interpretation Comments HEMOGLOBIN A1c (test code = 38016) 9.0 % HEMOGLOBIN [id number] 00:00:00 Test Item Value Reference Range Interpretation Comments HEMOGLOBIN A1c (test code = 43809) 9.0 % HEMOGLOBIN [id number] 00:00:00 Test Item Value Reference Range Interpretation Comments HEMOGLOBIN A1c (test code = 89467) 9.0 % HEMOGLOBIN [id number] 00:00:00 Test Item Value Reference Range Interpretation Comments HEMOGLOBIN A1c (test code = 32924) 9.0 % HEMOGLOBIN [id number] 00:00:00 Test Item Value Reference Range Interpretation Comments HEMOGLOBIN A1c (test code = 82521) 9.0 % HEMOGLOBIN [id number] 00:00:00 Test Item Value Reference Range Interpretation Comments HEMOGLOBIN A1c (test code = 62241) 9.0 % HEMOGLOBIN [id number] 00:00:00 Test Item Value Reference Range Interpretation Comments HEMOGLOBIN A1c (test code = 07405) 9.0 % HEMOGLOBIN [id number] 00:00:00 Test Item Value Reference Range Interpretation Comments HEMOGLOBIN A1c (test code = 18833) 9.0 % HEMOGLOBIN [id number] 00:00:00 Test Item Value Reference Range Interpretation Comments HEMOGLOBIN A1c (test code = 07430) 9.0 % HEMOGLOBIN [id number] 00:00:00 Test Item Value Reference Range Interpretation Comments HEMOGLOBIN A1c (test code = 54571) 9.0 % HEMOGLOBIN [id number] 00:00:00 Test Item Value Reference Range Interpretation Comments HEMOGLOBIN A1c (test code = 01058) 9.0 % POCT GLUCOSE (AUTOMATED)2019-12-07 22:15:00 Test Item Value Reference Range Interpretation Comments POCT GLU (test code = 8105067994) 114 mg/dL 70-110 H Lab Interpretation (test code = Abnormal 31602-2[facility] 17:14:00 Test Item Value Reference Range Interpretation Comments POCT GLU (test code = 3337427546) 129 mg/dL 70-110 H Lab Interpretation (test code = Abnormal 90311-6) [facility] (NA, K, CL, CO2, GLUCOSE, BUN, CREATININE, CA)2019-12-07 14:51:00 Test Item Value Reference Range Interpretation Comments NA (test code = 141 mmol/L 135-145 3033642163) K (test code = 3.3 mmol/L 3.5-5 L 4617495304) CL (test code = 104 mmol/L 98-108 3808655695) CO2 TOTAL (test code = 30 mmol/L 23-31 1617935197) AGAP (test code = 2-16 4766489350) BUN (test code = 12 mg/dL 7-23 7172237338) GLUCOSE (test code = 127 mg/dL 70-110 H 3848052805) CREATININE (test code = 1.13 mg/dL 0.6-1.25 7582434107) CALCIUM (test code = 8.3 mg/dL 8.6-10.6 L 1373812166) eGFR Calculation mL/min/1.73m2 (Non-) (test code = 0069847646) eGFR Calculation mL/min/1.73m2 () (test code = 0585484580) LUIS (test code = LUIS) Association of [...] tests). Lab Interpretation Abnormal (test code = 80714-2) [facility] WITH [id number] 14:34:00 Test Item Value Reference Range Interpretation [...] (test code = 37.7 fL 38.5-51.6 L 98255-9) RDW-CV (test code = 11.9 % 12.1-15.4 L 788-0) PLT (test code = See_Comment [Automated 777-3) message] The sy stem which generated this result transmitted reference range : 150 - 328 10*3/ ?L. The reference r neno was not used to interpret this result as normal/abnormal . MPV (test code = 8.4 fL 9.8-13 L 17762-1) NRBC/100 WBC (test See_Comment [Automat ed code = 0622652780) message] The system which generated this result transmitted reference range : 0.0 - 10.0 /100 WBCs. The refer ence range was not u sed to interpret th is result as normal/abnormal . NRBC x10^3 (test code <0.01 See_Comment [Auto mated = 0556660946) message] The s ystem which generated this result transmitted reference range : 10*3/?L. The reference range was not used to interpret this result as normal/abnormal . GRAN MAT (NEUT) % 79.8 % (test code = 770-8) IMM GRAN % (test code 0.50 % = 7996569798) LYMPH % (test code = 10.6 % 736-9) MONO % (test code = 8.2 % 5905-5) EOS % (test code = 0.6 % 713-8) BASO % (test code = 0.3 % 706-2) GRAN MAT x10^3(ANC) 8.62 10*3/uL 1.99-6.95 H (test code = 6627657193) IMM GRAN x10^3 (test 0.05 10*3/uL 0-0.06 code = 7314279555) LYMPH x10^3 (test code 1.14 10*3/uL 1.09-3.23 = 731-0) MONO x10^3 (test code 0.89 10*3/uL 0.36-1.02 = 742-7) EOS x10^3 (test code = 0.07 10*3/uL 0.06-0.53 711-2) BASO x10^3 (test code 0.03 10*3/uL 0.01-0.09 = 704-7) Lab Interpretation Abnormal (test code = 38894-1) [facility] GLUCOSE (AUTOMATED)2019-12-07 13:14:00 Test Item Value Reference Range Interpretation Comments POCT GLU (test code = 5841372812) 127 mg/dL 70-110 H Lab Interpretation (test code = Abnormal 50728-3) [facility] GLUCOSE (AUTOMATED)2019-12-07 09:26:00 Test Item Value Reference Range Interpretation Comments POCT GLU (test code = 8109522358) 157 mg/dL 70-110 H Lab Interpretation (test code = Abnormal 90821-0) [facility] GLUCOSE (AUTOMATED)2019-12-07 05:06:00 Test Item Value Reference Range Interpretation Comments POCT GLU (test code = 1284354342) 244 mg/dL 70-110 H Lab Interpretation (test code = Abnormal 43051-2) [facility] GLUCOSE (AUTOMATED)2019-12-07 01:21:00 Test Item Value Reference Range Interpretation Comments POCT GLU (test code = 3954907104) 184 mg/dL 70-110 H Lab Interpretation (test code = Abnormal 91217-1) [facility] GLUCOSE (AUTOMATED)2019-12-06 23:42:00 Test Item Value Reference Range Interpretation Comments POCT GLU (test code = 2378633856) 99 mg/dL 70-110 Lab Interpretation (test code = Normal 26910-3) [facility] 18:13:00 Test Item Value Reference Range Interpretation Comments SARS-CoV-2 Rapid ID NOW Not Detected Not Detected (test code = 72249-3) LUIS (test code = LUIS) ID NOW COVID-19 Assay is an isothermal nucleic acid amplification test intended for the qualitative detection of nucleic acid from SARS-CoV-2 viral RNA in nasopharyngeal (ASSURANCE SENIOR MANAGER) specimens. It is used under Emergency [...] indicated. Lab Interpretation Normal (test code = 73844-4) [facility] GLUCOSE (AUTOMATED)2019-12-06 16:57:00 Test Item Value Reference Range Interpretation Comments POCT GLU (test code = 8033596513) 107 mg/dL 70-110 Lab Interpretation (test code = Normal 71162-8) [facility] GLUCOSE (AUTOMATED)2019-12-06 13:17:00 Test Item Value Reference Range Interpretation Comments POCT GLU (test code = 2085738347) 103 mg/dL 70-110 Lab Interpretation (test code = Normal 16884-2) [facility] GLUCOSE (AUTOMATED)2019-12-06 09:17:00 Test Item Value Reference Range Interpretation Comments POCT GLU (test code = 2102701277) 103 mg/dL 70-110 Lab Interpretation (test code = Normal 11675-6) [facility] GLUCOSE (AUTOMATED)2019-12-06 05:25:00 Test Item Value Reference Range Interpretation Comments POCT GLU (test code = 9931209116) 115 mg/dL 70-110 H Lab Interpretation (test code = Abnormal 42233-1) [facility] GLUCOSE (AUTOMATED)2019-12-06 01:54:00 Test Item Value Reference Range Interpretation Comments POCT GLU (test code = 7335446151) 131 mg/dL 70-110 H Lab Interpretation (test code = Abnormal 67895-8) [facility] GLUCOSE (AUTOMATED)2019-12-05 22:05:00 Test Item Value Reference Range Interpretation Comments POCT GLU (test code = 4120630053) 192 mg/dL 70-110 H Lab Interpretation (test code = Abnormal 76479-9) [facility] GLUCOSE (AUTOMATED)2019-12-05 16:58:00 Test Item Value Reference Range Interpretation Comments POCT GLU (test code = 5967938268) 99 mg/dL 70-110 Lab Interpretation (test code = Normal 13844-3) [facility] GLUCOSE (AUTOMATED)2019-12-05 12:49:00 Test Item Value Reference Range Interpretation Comments POCT GLU (test code = 5032990171) 140 mg/dL 70-110 H Lab Interpretation (test code = Abnormal 49798-0) [facility] GLUCOSE (AUTOMATED)2019-12-05 10:00:00 Test Item Value Reference Range Interpretation Comments POCT GLU (test code = 3296472170) 128 mg/dL 70-110 H Lab Interpretation (test code = Abnormal 38011-8) [facility] GLUCOSE (AUTOMATED)2019-12-05 05:23:00 Test Item Value Reference Range Interpretation Comments POCT GLU (test code = 8753675388) 145 mg/dL 70-110 H Lab Interpretation (test code = Abnormal 11629-1) [facility] GLUCOSE (AUTOMATED)2019-12-04 21:28:00 Test Item Value Reference Range Interpretation Comments POCT GLU (test code = 5841829430) 149 mg/dL 70-110 H Lab Interpretation (test code = Abnormal 29647-4) [facility] GLUCOSE (AUTOMATED)2019-12-04 16:50:00 Test Item Value Reference Range Interpretation Comments POCT GLU (test code = 1114984849) 131 mg/dL 70-110 H Lab Interpretation (test code = Abnormal 87037-1) [facility] GLUCOSE (AUTOMATED)2019-12-04 13:33:00 Test Item Value Reference Range Interpretation Comments POCT GLU (test code = 8177377130) 117 mg/dL 70-110 H Lab Interpretation (test code = Abnormal 74975-3) [facility] METABOLIC PANEL (NA, K, CL, CO2, GLUCOSE, BUN, CREATININE, CA)2019-12-04 11:21:00 Test Item Value Reference Range Interpretation Comments NA (test code = 140 mmol/L 135-145 3051012721) K (test code = 3.3 mmol/L 3.5-5 L 8994559523) CL (test code = 105 mmol/L 98-108 6959839343) CO2 TOTAL (test code = 28 mmol/L 23-31 3483058911) AGAP (test code = 2-16 7251419921) BUN (test code = 9 mg/dL 7-23 3107956370) GLUCOSE (test code = 124 mg/dL 70-110 H 9856502207) CREATININE (test code = 1.04 mg/dL 0.6-1.25 5440723794) CALCIUM (test code = 8.7 mg/dL 8.6-10.6 8604839574) eGFR Calculation mL/min/1.73m2 (Non-) (test code = 6455641461) eGFR Calculation mL/min/1.73m2 () (test code = 9839312024) LUIS (test code = LUIS) Association of [...] tests). Lab Interpretation Abnormal (test code = 60852-6) [facility] WITH [id number] 10:41:00 Test Item Value Reference Range Interpretation Comments WBC (test code = See_Comment [Automated 6690-2) message] The sy stem which generated this result transmitted reference range : 4.20 - 10.70 10*3/?L. The reference range was not used to interpret this result as normal/abnormal . RBC (test code = See_Comment L [Automated 029-8) message] The sy stem which generated this [...] (test code = 37.9 fL 38.5-51.6 L 26598-7) RDW-CV (test code = 11.8 % 12.1-15.4 L 788-0) PLT (test code = See_Comment [Automated 777-3) message] The sy stem which generated this result transmitted reference range : 150 - 328 10*3/ ?L. The reference r neno was not used to interpret this result as normal/abnormal . MPV (test code = 8.3 fL 9.8-13 L 35456-0) NRBC/100 WBC (test See_Comment [Automat ed code = 3000547723) message] The system which generated this result transmitted reference range : 0.0 - 10.0 /100 WBCs. The refer ence range was not u sed to interpret th is result as normal/abnormal . NRBC x10^3 (test code <0.01 See_Comment [Auto mated = 1888153520) message] The s ystem which generated this result transmitted reference range : 10*3/?L. The reference range was not used to interpret this result as normal/abnormal . GRAN MAT (NEUT) % 70.3 % (test code = 770-8) IMM GRAN % (test code 0.20 % = 2501238432) LYMPH % (test code = 18.6 % 736-9) MONO % (test code = 8.2 % 5905-5) EOS % (test code = 2.3 % 713-8) BASO % (test code = 0.4 % 706-2) GRAN MAT x10^3(ANC) 5.86 10*3/uL 1.99-6.95 (test code = 0512461860) IMM GRAN x10^3 (test <0.03 0-0.06 code = 0777210693) LYMPH x10^3 (test code 1.55 10*3/uL 1.09-3.23 = 731-0) MONO x10^3 (test code 0.68 10*3/uL 0.36-1.02 = 742-7) EOS x10^3 (test code = 0.19 10*3/uL 0.06-0.53 711-2) BASO x10^3 (test code 0.03 10*3/uL 0.01-0.09 = 704-7) Lab Interpretation Abnormal (test code = 19910-3) [facility] GLUCOSE (AUTOMATED)2019-12-04 05:06:00 Test Item Value Reference Range Interpretation Comments POCT GLU (test code = 9898424315) 126 mg/dL 70-110 H Lab Interpretation (test code = Abnormal 60370-7) [facility] GLUCOSE (AUTOMATED)2019-12-04 01:12:00 Test Item Value Reference Range Interpretation Comments POCT GLU (test code = 0135332695) 187 mg/dL 70-110 H Lab Interpretation (test code = Abnormal 93431-5) [facility] GLUCOSE (AUTOMATED)2019-12-03 21:14:00 Test Item Value Reference Range Interpretation Comments POCT GLU (test code = 3270122362) 117 mg/dL 70-110 H Lab Interpretation (test code = Abnormal 87778-9) [facility] GLUCOSE (AUTOMATED)2019-12-03 17:21:00 Test Item Value Reference Range Interpretation Comments POCT GLU (test code = 8484550619) 238 mg/dL 70-110 H Lab Interpretation (test code = Abnormal 82404-9) [facility] GLUCOSE (AUTOMATED)2019-12-03 13:37:00 Test Item Value Reference Range Interpretation Comments POCT GLU (test code = 9789006759) 173 mg/dL 70-110 H Lab Interpretation (test code = Abnormal 79426-3) [facility] METABOLIC PANEL (NA, K, CL, CO2, GLUCOSE, BUN, CREATININE, CA)2019-12-03 10:47:00 Test Item Value Reference Range Interpretation Comments NA (test code = 137 mmol/L 135-145 2102133517) K (test code = 3.2 mmol/L 3.5-5 L 2072306467) CL (test code = 101 mmol/L 98-108 4147632417) CO2 TOTAL (test code = 28 mmol/L 23-31 7939137781) AGAP (test code = 2-16 2735506198) BUN (test code = 12 mg/dL 7-23 8777232988) GLUCOSE (test code = 164 mg/dL 70-110 H 1736400613) CREATININE (test code = 1.15 mg/dL 0.6-1.25 8612237429) CALCIUM (test code = 8.4 mg/dL 8.6-10.6 L 6251945680) eGFR Calculation mL/min/1.73m2 (Non-) (test code = 3525781369) eGFR Calculation mL/min/1.73m2 () (test code = 8224352825) LUIS (test code = LUIS) Association of [...] tests). Lab Interpretation Abnormal (test code = 18389-0) [facility] WITH [id number] 10:39:00 Test Item Value Reference Range Interpretation Comments WBC (test code = See_Comment [Automated 5703-2) message] The sy stem which generated this result transmitted reference range : 4.20 - 10.70 10*3/?L. The reference range was not used to interpret this result as normal/abnormal . RBC (test code = See_Comment L [Automated 149-8) message] The sy stem which generated this [...] (test code = 37.4 fL 38.5-51.6 L 07571-7) RDW-CV (test code = 11.5 % 12.1-15.4 L 788-0) PLT (test code = See_Comment [Automated 777-3) message] The sy stem which generated this result transmitted reference range : 150 - 328 10*3/ ?L. The reference r neno was not used to interpret this result as normal/abnormal . MPV (test code = 8.7 fL 9.8-13 L 44260-2) NRBC/100 WBC (test See_Comment [Automat ed code = 3176834060) message] The system which generated this result transmitted reference range : 0.0 - 10.0 /100 WBCs. The refer ence range was not u sed to interpret th is result as normal/abnormal . NRBC x10^3 (test code <0.01 See_Comment [Auto mated = 5828083912) message] The s ystem which generated this result transmitted reference range : 10*3/?L. The reference range was not used to interpret this result as normal/abnormal . GRAN MAT (NEUT) % 70.6 % (test code = 770-8) IMM GRAN % (test code 0.40 % = 3913495412) LYMPH % (test code = 18.0 % 736-9) MONO % (test code = 8.5 % 5905-5) EOS % (test code = 2.1 % 713-8) BASO % (test code = 0.4 % 706-2) GRAN MAT x10^3(ANC) 5.33 10*3/uL 1.99-6.95 (test code = 1971434160) IMM GRAN x10^3 (test 0.03 10*3/uL 0-0.06 code = 4094223758) LYMPH x10^3 (test code 1.36 10*3/uL 1.09-3.23 = 731-0) MONO x10^3 (test code 0.64 10*3/uL 0.36-1.02 = 742-7) EOS x10^3 (test code = 0.16 10*3/uL 0.06-0.53 711-2) BASO x10^3 (test code 0.03 10*3/uL 0.01-0.09 = 704-7) Lab Interpretation Abnormal (test code = 55787-2) [facility] GLUCOSE (AUTOMATED)2019-12-03 09:16:00 Test Item Value Reference Range Interpretation Comments POCT GLU (test code = 7429835822) 179 mg/dL 70-110 H Lab Interpretation (test code = Abnormal 90376-9) [facility] GLUCOSE (AUTOMATED)2019-12-03 05:53:00 Test Item Value Reference Range Interpretation Comments POCT GLU (test code = 8664347296) 227 mg/dL 70-110 H Lab Interpretation (test code = Abnormal 22950-4) [facility] GLUCOSE (AUTOMATED)2019-12-03 02:02:00 Test Item Value Reference Range Interpretation Comments POCT GLU (test code = 8391130604) 211 mg/dL 70-110 H Lab Interpretation (test code = Abnormal 17071-9) [facility] GLUCOSE (AUTOMATED)2019-12-03 01:29:00 Test Item Value Reference Range Interpretation Comments POCT GLU (test code = 2283870225) 213 mg/dL 70-110 H Lab Interpretation (test code = Abnormal 25310-6) [facility] GLUCOSE (AUTOMATED)2019-12-02 23:05:00 Test Item Value Reference Range Interpretation Comments POCT GLU (test code = 1446605931) 227 mg/dL 70-110 H Lab Interpretation (test code = Abnormal 73928-1) [facility] [id number] 19:54:00 Test Item Value Reference Range Interpretation Comments Case Report (test code Surgical Pathology ? ? = 3437970173) ?Case: [id number] ? Authorizing Provider: ?Yadira Nick MD ? ? ?Collected: ? 11/27/2019 1507 ?Ordering Location: ? ? [facility] OR ? Received: ?11/28/2019 0907 ? Department ? Pathologist: ? Jeb, ? MD Rach ?Specimen: ? ?TOE, Left first and second toe ? Final Diagnosis (test n2mnlFTaEISiz9prLORszS code = 2753135981) FuZzEwMzNcZnRuYmpcdWMx BOwknxMaFYdzc0RjJ0YnCe AwMFxhbnNpXGRlZmxhbmcx GBBuKSQ7wgBsAUDbDYbnAU NvPAayAr3aoCBnsFwmJfJq APPfi4czoaXTggqnnJq8p8 bhOPTjFzP5aNMcHLfrC9in pbDubKZuXQDtKQa0lRojZm IfAVCbs6Lxtl3tTEAcxBKc i7K5VHXZw0TiqPHjOD7ydb w6dBghS43qj4U1WgfiF0ov YQJaVDYsV3ExQN8yREYeDu x5YTQ9MZR6MHZbUGBnV8Hc WF6lGRKqvUSrBYo7u6uksB nuKLAqYST7b2stJGhqafHq EK1kea3mdIr1r7sdzzIzBE OsKRZnrBVNGRZdL7QmvLyr Tk5koIp9sPmoEmjlWPL0Fb q8NG5sbj75cwg4oHgdKJGk mzisZjE7XMvbOMGyoibnCK s6ARgiLCEynYLvNXZehCGu E4KlGKuiIT6dyet8QxSnAO 5suuvgUYlgMTFhQYR7AjHx DINmb3FygxsdObImpf8fvj 62XFL9w9MqlDclHBN8RLA5 AcZiKo5rcOHeATPhDP3yAm QzdAQvRCUezt08hUwuHDbe edKhjY2mSzAxEFIemPVbAW JkVFMbS7aaZzJbcfDbG4dp M9PqOOQwQBYaASUcFfPhuk Aml8Pnku95FRZyzwBsw9Hr jZLsiWi4s8kpWEUqWPElbA mxr1eaGMX2TWDtP2W4yHTw f7toEMtvRMPusTI5qeRkBA SwyKYtN1SmmQ3nXZpeFT3p kjf1y7nuUyFdEP1oyamya2 lkFYbhUWShCAF8FiCdXEEp e2IqlgoaYsJqj7UryJFmVL tjM31ot812WDZijoTbB2oa bGFpblxwbGFpblxmMFxmcz F0CKVgZXNdCHwkEHKpMMNt MjBcbGFuZzEwMzNcaGljaF tqBVyoEnSvGUFlFTftO5fb ZjFcZnMyMFxwYXJccGFyXG b1nlNyrdolnSoklDZnebup CJdgtvY7UQBfKSddEIOyGX ZzMjBcbGFuZzEwMzNcaGlj aFxmMVxkYmNoXGYxXGxvY2 drEvGyPrZmSGNDDnVMS0Vx IDwALlLqEwyOV5VhON0LQA FRJ28CRSZWL3KjGNDOXTIW AOHAN61quKLfOPNrwkKLIT VMFIJNR0L3FOYpLRbyOIUl XGZzMjBcbGFuZzEwMzNcaG ljaFxmMlxkYmNoXGYyXGxv B4ljJnEzQ1GcATAbTdTuvC FyXHBsYWluXGYxXGZzMjBc bGFuZzEwMzNcaGljaFxmMV wdCaVlNUSjTYnsY0bzYuXj FoJyJRLxCMGpVQ0vEEFDEH DlV0VNZW1GRTBPYRUIDhXC KDBSWrDVDynvRU9yBtNALR OEXQ9DGN4BNxaYOnHrsHDk UFGilqBxdIgioD7eRhClRf MyNFxwbGFpblxmMVxmczIw PCoztkrgUZJbRKmwT9eoQl PsZETinOspJWkhq0UxPAMp XGZzMjAgICAgICAtIElTQ0 lJPWdJLQnILjtSEI5JCGpL XYolHSXXTQLCKMJJL6WBV2 LvMr4OKXCULE0VVRKyIHre XGYyXGZzMjBcbGFuZzEwMz NcaGljaFxmMlxkYmNoXGYy MLyvI9mzFwDfZ8MhBOLeWc BccGFyXHFsXHBsYWluXGYw GMDyCwYoeTdadH9wIjCqTk DwVToxBX9bJBPuY1zbtYWl AMUhZNEiQ4efBcIcfQ0jvT xmMVxmczIwICAgICAgLSBT I8XPUCXXL3GFZQBRQOXMG5 XKP25jLWCZI0rHPhBBD08i VklBQkxFXHBhclxsdHJwYX HqvKbtoRmzrK2dZsVqNnMq NFxwbGFpblxmMVxmczIwXG cilmanUUGnVGlyT5ofIzZv YKCjwZzhQUkjz6TvYHCrLY RxYdVziPYsUWWZR85OVKRH T6S7YKWnXMiwHRMcORHtIi BcbGFuZzEwMzNcaGljaFxm HzsmKjDdZEEbNXynQ3mjKj EwB1RiODQqNkNefZRyBNLx ggJmqHfudE1tCkLjStUkLG xwbGFpblxmMVxmczIwXGxh qgxjFYQpAExnQ4smLyGuKK SpxMuvDKroy9UvFCTwEFXw MtQuLIViBDBhFYdJT2oRZS aADZwWJhxNIA3NFDfOZHkt ARBTKDGDNMXWG0BFM0BdZh 3XGIYTMK1CNFAhgyAjAXDe SQ9pUc6UDRwZJQhtMPmGYM KPRALMHxhACAaPVvxZVB0R EBlTFjxjCh9oNRFQKAHbN1 UJBV5VHTJMCZTUM8ssBJYc ICAgICAtIEJPTkUgUkVTRU CIGP4UBK4HLwpWImMYXUVP VRFtIG7FSF1RG5TBAYPPYE ANQzNEZ5KBS20IJEkJNSzX XHBsYWluXGYyXGZzMjBcbG FuZzEwMzNcaGljaFxmMlxk UhZsZFNwCZnvI6ssRyEuW6 YyXGZzMjBccGFyXHFsXHBs YWluXGYwXGZzMjRccGxhaW 5hBqEdFiQgRFutNB8rQTEg O3tvcOJxHZKzBKDkU7ykGu YjwF4nsNsbAWfqgtPcJHQx CTGrJRZHQ8BNTKNWT1MWSH UVUQBGU9CDH99iHNZIP7nI XfEFG23eOakKXcjDXJPeiz abGOHjkVutgM4dHlPdXcSw SoqsUJ1hJZNtZ6jlgZEpON HdNOBfF1tsSsVxhV2hrYel MVxjZjJcZnMyMiBYaWFvdG DwLfZXnFnzSPMmDTkiNx9o MDIwICAxOjQzIFBNXHBsYW luXGYxXGZzMjBcbGFuZzEw MzNcaGljaFxmMVxkYmNoXG HqRIlwX4qqVjGzVoUsHTtm PEFieZQaXHIpqu98SYC4Ym Npo7B7IRWeWzJkLPAlLQ7n tPrfQFAlKX0vRGKtP7lulN 2hbfj6RfOyGBJhHxA5JLQo ruB0Auj6WEMwRFjcq0xvd3 PsC7LxsBSghGv0p5wzZAZl TmM0eHIcNGehO9efphSjsT PmBDDrPSw7fDuyZsThQNUo p5amrzYvAmNdLTBlFHMyPR SjvLnlntr9vM65HBEktA8j xQGbGAjwwqOvFdW3PTbjTH GhDvT2MARmgXUrOIXjB0wd ZWQwXGdyZWVuMFxibHVlMC O5sVqga7F1jYPbjWShuMlj GbErEjJpFVJLu9WzFAr7gA ifH2YfTUCaAkH8fHMbTKHw YKgsEPKnJXKxecQ5mK70JN ujqmV8rPOqz4Ojv34tg814 xQ0ixMSxQFJ6TNDzHIQylU JcNWCbDPR1OPKqgHVeY9og LUFgGP5ycuxfYHzoMYqsOU MjcIK0EZOpfSFzD1KdFFTl BBzcLTSbmeq1CyKlBv3tfJ AimNezCIauc8zwx5ascLMq Bij1PHZqAfZxUbypPPvos6 Joi4pzVHJtpn5hOBH4jPFa nVxvw0Z7yEZwHBNgfHWluo PbXIRkNgV6OPgiSQ0ttr58 NNRmJMW6lu3adJNrdMmzaz CmpNEfBMvxR5DqBEWcl216 NHPqU1GtLWHpz3G8fpWjIr NyMLRcmWR2yzK9LMGkJXn8 oGQifqI3qsGlaUTdX1ulqQ 3bRVUfXZ6olgivq8lmDUmw JCtfSICzhFV1qpW4TMTaeM NjJ2LjqC1kMMFzLQigAFEv ykk1YtCnFy6paQHnxQztDA xzYmtwYWdlXHBnbmNvbnRc cGduZGVjXHBsYWluXHBsYW luXGYwXGZzMjRccWxccGxh xJ6fTxWpRgFdKNktEV6dRL XtS9acpBJlZUKaBXVvN7oo ReWauL8ccFxpZAjbDcQcMa MyMFxwYXIgSSBoYXZlIHBl xpCvfwLlgPimfnO7gAT8VC WhCNmuWOHuRGFhrMUmid6y yDwoXLBeZV0hPMMwbdVeAU vypUpwMTdcFDR3ZHEboANy dHMgbWFkZSBieSByZXNpZG IapXCqJPDtaGxmq1Ptb4Rv kRZ3rJ9gr5nlu1LrLYQzxA V4KI25eyV8tC2aDWQgUL1a BOUvCR2doUFjbLOmNNWmu5 4gdGhpcyByZXBvcnQuXHBs YWluXGYyXGZzMjhcbGFuZz EwMzNcaGljaFxmMlxkYmNo XDQkOTgsJ3uxLnQtVyLnID pnQGM9nP== Clinical Information Gangrene of toe of (test code = left foot [I96] 9354936886) Gross Description (test g1dzgHAyTARfqJTnHhXbDA code = 9655329000) JjGHYpu6zeVULsdXWeEoBx MzNcZnRuYmpcdWMxXGRlZm Seg4mnh381rIYws3aySICd IwG3uACtZOBelLGiR872SY BdEZhti1zfh0NqCUQliSAj h4U1LLKXgymqgPk1zXbcN3 2zn0E9SwniQ7klMRUfVVih XYEwSRtzmEAxDIO5KOMnGQ R1EEzimhQyxyS5SRafpCYv WiS9RHj6u1uitBrnJVJnNB G4k0yjDJvuvoEkRA5hhz3b rSc6g5abxmDvWUQzTKNuoT VINAAiM6MtzQqiDc1ebOv1 rKrjYsfoAJQ9Yqm7TK7bjp 70msn1jCqkDOTzugzbYzR5 MKwlBXCwqrygTHk6MWjxNT GrqBReOVEvkZHvT9VhPZga NN0lwdg8KqRqXH0negbaON hrJIAmRAK7XpFpOQAue1Xd bmxtCdEyph7bge29AOF2p4 XcaLluWLC7AMB7KqIkHy3z vMYaBNNeCH2aBeFstQPxXK Lvhr68eGvgOXzpzdQyxQ7w TwTwFREvwVSgZFFmPZ4veW AdMXHtrM6idqphOCOkEdVc yrqlWKGxsAbdkoVvId0xaO reHYP9NHtoN2ejhL8dXjM6 CFraO2omrC3sZSg5KGbzqN H8SKHdxK5oLK7uqmhob4iw WHI3JUtzAOVhulF1bbJiMW BddYIwY7WzcB44YdIayDWq O5UxbS1fZRvbQOOipdu6Hb NlHz6xlIWozUD8ZWxyQqrw YWdlXHBnbmNvbnRccGduZG VjXHBsYWluXHBsYWluXGYw JOBeJfOqeKezlNkxlG4mSg BcZnMyMFxwbGFpblxmMVxm czIwIFNwZWNpbWVuIEEgaX InrgLdECm1XCEupY0kTe6x cWNhmM2mfOBaOYbuOQE7dS OrOUUpQYHvDBWuMP59H5Oh bmFtZSwgVUggbnVtYmVyIC GmFUP2ZRPjfaW4VGOqXFAw TSKbpmUyoY1fMapbFK9yFS NxubKwp5EaRH6hQBThOcgp k4AlAKpjeCRySCCmQGV2FD CuSOE6IISaHjAeoGibQD9f OGYyv1Ofe39fTJYcV7d4MJ c2ZlIgaSLmObctdJJsZbyj N17gLLFybTllq7w3jVImUX LmlKyhCK1kOEGqi52dPGWl r9AwkRgojaCvTUByiK8keY xck2IsvFO4jWUijTXxgRws KDibfJtszBAztP6wSd87cP NcxCskzBPuDMFfPKLial9z wPKzsODtIMM9f9w4NReblN wtw4lwiCwwpQ5hWQIwrJ5g EK8sOKQznERtJY5qMSG4v4 YbYHjbrw6kYHynIFHpcjS0 UKWgX8v8GRezwkHmohR5wN KrnqVdepQ2hHGfvZR4TQQv rSHfj4PsE8PwWYFpAVQ1NI FwHiT6ZJItOpObhBpsjXtj dDTfgkGxNaQoJ44aAeEarN Y0lBKffpTrxfXqkDIty6mu B0UbYsXfdPuat1FvDCPpu6 UlqFcadcBcADUxsQ9lYI7b MWCzWoBkyQEisz2uVCBcEA Zzj80ePWOxp7SxnNnuheLc WWRfrL1qAW9pLYFoAFHgOS zcKBSpj64bCCJsaE8owAZb MUUkMFOgXWCovdW9vVNnvO LylEViDAHyvXAxuSEdAG89 VGblWE09PTZiUFU4iML4TD thOBNsEPFiuEIrye9iDCTw DCAji2F0ULHxe3Z6RCUdZJ WoE8Kkh80weGYaR2trHSHo UJHbAeLtH64qSaJraFA0xO ElGg8yAGDqVOVdD8Yks25x mATbX6baLyXFqNLgYkoxc5 CxHYuwuUWiiMExx3MzhRvg apBfZEXwYJCrtrDwjFK3OC 4tcmVkLCBmaXJtIGJvbmUg D2Q0NYM2kcRbU3ZxUHBtQU R3HD4gxsOdQBIdIYktPOgl N1QeCZ7wv03koMC1zHSwfP CqX4H0GFA2qwOkH6KsRlAC oGSjy1Rep33jUUUbA2k3RZ grKHYeE2Oew47tTFI0jbDp ZXZlYWwgdGFuLXJlZCwgZm ahpMUnv55oWLM2vMNgcUIe NZBlhwClxrUwpGVlVWX9oq MeNBweBPUhw2ktw85mbPE0 vDJrmYLoO7Z6AJG8ttXjY1 VzLiBSZXByZXNlbnRhdGl2 LVGqVKA6jL9mcjWwzsBan0 NgoMm9wLFyRXooGMIoYYB7 TRFdd9ann5ccdjxeXZWnHD fmlGNtM5S8rC8fYZ7lUWTw RFG1AUPiRSQCOH5WCQ9frQ YnXTLyafFECRY0dU5yEEOh PYE9TTNuerZPXX3KHrwlRn zqs3QuBUixuXNpq4yzbjDl vtGif40tsKM4tWSpvTDycg RfBHS8yF8aAM2auqwkhqvg AQ64yJGtoLutPFIyCSSxF3 VccGFyIEEzOiBGaXJzdCBk hTvldWAlk13oUNNgg9VeeH nvukPqSGWlrV6kISOgfAef KEp5AFSwjmLmTQJpDSDpwy QOUT9TMCipCjfpa7RtUUzr kHFhR2Sji4Ssi3UrsObxzk yfKrgvOFT0XJUqGGWaCOfg F3n3NGAppBisORRozW8vLR IkUW3eKD09zG0oBuniNUAn jzCmNHjsVPP8VJHbpsYQSy 2BXyugJ9Qqy75pYKMlG4o0 BSWqfH7zNV3pHKAjMvEddZ qhb0EwTLGsl5BtfHykliJh QEAlkY6fKHSuxLfeJOi9KO BlbiBmYWNlXHBhciBBODog E4Jhh72dPUEfU6u1KLLogf FrftCgVNY9lY9qMP2agigw owggLW45iIOznPmmJSRqAM QyB9XokMCrSVY7SkEGIQXz jzIdBLjimITzG5Mhn8Vjt5 VjdGlvblxwYXJccGFyXHBh gzKeyUgilN7oReEnQqHiHJ wviLBwqdhaWPliuhYoUQ5j jpjoBBZqIQX0l3TqNJAutG bmUHOMsGFoET54RTTaelML dGntNKLQM5ahnDQkKQybXG SLRZeLP5WTWYfwQCJzeIwd nRvohK4jGuYdXtBwKShisD FpblxmMVxmczIwXHBhclxw YXJ9 Embedded Images (test code = 8981588984) [facility] GLUCOSE (AUTOMATED)2019-12-02 17:08:00 Test Item Value Reference Range Interpretation Comments POCT GLU (test code = 7825879724) 192 mg/dL 70-110 H Lab Interpretation (test code = Abnormal 77323-2) [facility] GLUCOSE (AUTOMATED)2019-12-02 12:59:00 Test Item Value Reference Range Interpretation Comments POCT GLU (test code = 8803713850) 150 mg/dL 70-110 H Lab Interpretation (test code = Abnormal 32270-1) [facility] GLUCOSE (AUTOMATED)2019-12-02 09:52:00 Test Item Value Reference Range Interpretation Comments POCT GLU (test code = 4557440787) 132 mg/dL 70-110 H Lab Interpretation (test code = Abnormal 01920-0) [facility] GLUCOSE (AUTOMATED)2019-12-02 06:13:00 Test Item Value Reference Range Interpretation Comments POCT GLU (test code = 9135925959) 132 mg/dL 70-110 H Lab Interpretation (test code = Abnormal 39111-2) [facility] Draw immediately prior to the NEXT dose, but, no more than 60 minutes before the NEXT dose. 2019-12-02 05:04:00 Test Item Value Reference Range Interpretation Comments VANCO TROUGH (test code 19.1 ug/mL 10-20 = 2385447419) LUIS (test code = LUIS) Toxic Range: ?>20 ug/mL 15-20 ug/mL is recommended for severe infection or when Vancomycin LISA is greater than or equal to 2. Lab Interpretation (test Normal code = 95156-2) [facility] GLUCOSE (AUTOMATED)2019-12-02 02:23:00 Test Item Value Reference Range Interpretation Comments POCT GLU (test code = 6867817659) 195 mg/dL 70-110 H Lab Interpretation (test code = Abnormal 74243-9) [facility] GLUCOSE (AUTOMATED)2019-12-01 21:48:00 Test Item Value Reference Range Interpretation Comments POCT GLU (test code = 1982138082) 239 mg/dL 70-110 H Lab Interpretation (test code = Abnormal 37825-3) [facility] GLUCOSE (AUTOMATED)2019-12-01 17:29:00 Test Item Value Reference Range Interpretation Comments POCT GLU (test code = 1473313211) 159 mg/dL 70-110 H Lab Interpretation (test code = Abnormal 32426-8) [facility] GLUCOSE (AUTOMATED)2019-12-01 13:28:00 Test Item Value Reference Range Interpretation Comments POCT GLU (test code = 6174218667) 158 mg/dL 70-110 H Lab Interpretation (test code = Abnormal 52876-1) [facility] (NA, K, CL, CO2, GLUCOSE, BUN, CREATININE, CA)2019-12-01 10:24:00 Test Item Value Reference Range Interpretation Comments NA (test code = 138 mmol/L 135-145 6561848141) K (test code = 3.4 mmol/L 3.5-5 L 4934661544) CL (test code = 104 mmol/L 98-108 6001345469) CO2 TOTAL (test code = 26 mmol/L 23-31 8679029234) AGAP (test code = 2-16 7895835851) BUN (test code = 9 mg/dL 7-23 4730653484) GLUCOSE (test code = 170 mg/dL 70-110 H [id number]) CREATININE (test code = 0.87 mg/dL 0.6-1.25 0679027734) CALCIUM (test code = 8.5 mg/dL 8.6-10.6 L 7741174956) eGFR Calculation mL/min/1.73m2 (Non-) (test code = 0709698949) eGFR Calculation mL/min/1.73m2 () (test code = 6199811824) LUIS (test code = LUIS) Association of [...] tests). Lab Interpretation Abnormal (test code = 29542-1) [facility] WITH [id number] 10:13:00 Test Item Value Reference Range Interpretation [...] (test code = 36.7 fL 38.5-51.6 L 97996-1) RDW-CV (test code = 11.4 % 12.1-15.4 L 788-0) PLT (test code = See_Comment [Automated 777-3) message] The sy stem which generated this result transmitted reference range : 150 - 328 10*3/ ?L. The reference r neno was not used to interpret this result as normal/abnormal . MPV (test code = 8.7 fL 9.8-13 L 85940-1) NRBC/100 WBC (test See_Comment [Automat ed code = 7384143762) message] The system which generated this result transmitted reference range : 0.0 - 10.0 /100 WBCs. The refer ence range was not u sed to interpret th is result as normal/abnormal . NRBC x10^3 (test code <0.01 See_Comment [Auto mated = 1186297645) message] The s ystem which generated this result transmitted reference range : 10*3/?L. The reference range was not used to interpret this result as normal/abnormal . GRAN MAT (NEUT) % 72.7 % (test code = 770-8) IMM GRAN % (test code 0.40 % = 1176950609) LYMPH % (test code = 16.4 % 736-9) MONO % (test code = 8.3 % 5905-5) EOS % (test code = 1.8 % 713-8) BASO % (test code = 0.4 % 706-2) GRAN MAT x10^3(ANC) 5.76 10*3/uL 1.99-6.95 (test code = 2629034432) IMM GRAN x10^3 (test 0.03 10*3/uL 0-0.06 code = 8762632906) LYMPH x10^3 (test code 1.30 10*3/uL 1.09-3.23 = 731-0) MONO x10^3 (test code 0.66 10*3/uL 0.36-1.02 = 742-7) EOS x10^3 (test code = 0.14 10*3/uL 0.06-0.53 711-2) BASO x10^3 (test code 0.03 10*3/uL 0.01-0.09 = 704-7) Lab Interpretation Abnormal (test code = 30482-2) [facility] GLUCOSE (AUTOMATED)2019-12-01 09:40:00 Test Item Value Reference Range Interpretation Comments POCT GLU (test code = 5804911823) 171 mg/dL 70-110 H Lab Interpretation (test code = Abnormal 64151-2) [facility] GLUCOSE (AUTOMATED)2019-12-01 05:50:00 Test Item Value Reference Range Interpretation Comments POCT GLU (test code = 6186524022) 196 mg/dL 70-110 H Lab Interpretation (test code = Abnormal 14407-1) [facility] [id number] 02:45:00 Test Item Value Reference Range Interpretation Comments Blood Culture-Aerobic No organisms No growth Previo us (test code = 44579-0) isolated prelim inary verified result was Culture [...] Culture-Anaerobic isolated preliminar y (test code = 67105-5) verifi ed result was Culture In Progress [...] CDT Lab Interpretation Normal (test code = 24296-4) [facility] CULTURE [id number] 02:44:00 Test Item Value Reference Range Interpretation Comments Blood Culture-Aerobic No organisms No growth Previo us (test code = 90498-5) isolated prelim inary verified result was Culture [...] Culture-Anaerobic isolated preliminar y (test code = 54234-6) verifi ed result was Culture In Progress [...] CDT Lab Interpretation Normal (test code = 88069-1) [facility] GLUCOSE (AUTOMATED)2019-12-01 01:55:00 Test Item Value Reference Range Interpretation Comments POCT GLU (test code = 6535023714) 289 mg/dL 70-110 H Lab Interpretation (test code = Abnormal 82764-3) [facility] - ONCE [id number] 23:43:27 Test Item Value Reference Range Interpretation Comments ABO & RH (test code O POSITIVE Performe d at [facility] = 20) Laboratory Serv [facility] Blood Bank3 [address] [facility] s [address]Thbd Free: [phone] A No. [id number] IAT (test code = Negative Performed a t [facility] 1185) Laboratory Serv [facility] Blood Bank3 [address] [facility] s [address]Jfjr Free: [phone] A No. [id number] [facility] GLUCOSE (AUTOMATED)2019-11-30 22:10:00 Test Item Value Reference Range Interpretation Comments POCT GLU (test code = 6055864643) 147 mg/dL 70-110 H Lab Interpretation (test code = Abnormal 12338-0) [facility] CULTURE(AEROBIC/ANAEROBIC)2019-11-30 18:38:00 Test Item Value Reference Range Interpretation Comments TISSUE CULTURE (test No aerobic/anaerobic code = 31176-1) organisms isolated Gram stain (test code No PMNs or Mononuclear = 664-3) cells observed [facility] CULTURE(AEROBIC/ANAEROBIC)2019-11-30 16:54:00 Test Item Value Reference Range Interpretation Comments TISSUE CULTURE 2+ Streptococcus [place] (test code = [place] [address]-5) consistent with organism above Gram stain No PMNs or (test code = Mononuclear cells 664-3) observed [facility] GLUCOSE (AUTOMATED)2019-11-30 15:56:00 Test Item Value Reference Range Interpretation Comments POCT GLU (test code = 5723926965) 223 mg/dL 70-110 H Lab Interpretation (test code = Abnormal 21571-4) [facility] HospitalVanintermountain healthcareycin Trough Level - Draw immediately prior to the 4TH dose, but, no more than 60 minutes before the 4TH dose. 2019-11-30 15:34:00 Test Item Value Reference Range Interpretation Comments VANCO TROUGH (test code 15.4 ug/mL 10-20 = 4498759240) LUIS (test code = LUIS) Toxic Range: ?>20 ug/mL 15-20 ug/mL is recommended for severe infection or when Vancomycin LISA is greater than or equal to 2. Lab Interpretation (test Normal code = 19579-2) [facility])2019-11-30 13:25:00 Test Item Value Reference Range Interpretation Comments POCT GLU (test code = 7236388906) 143 mg/dL 70-110 H Lab Interpretation (test code = Abnormal 58134-0) [facility] METABOLIC PANEL (NA, K, CL, CO2, GLUCOSE, BUN, CREATININE, CA)2019-11-30 10:57:00 Test Item Value Reference Range Interpretation Comments NA (test code = 139 mmol/L 135-145 8354813742) K (test code = 3.4 mmol/L 3.5-5 L 7901377337) CL (test code = 103 mmol/L 98-108 7516409894) CO2 TOTAL (test code = 28 mmol/L 23-31 8496503556) AGAP (test code = 2-16 9275659511) BUN (test code = 7 mg/dL 7-23 7320202554) GLUCOSE (test code = 131 mg/dL 70-110 H 2532330702) CREATININE (test code = 0.76 mg/dL 0.6-1.25 7933485502) CALCIUM (test code = 8.3 mg/dL 8.6-10.6 L 3560685031) eGFR Calculation mL/min/1.73m2 (Non-) (test code = 3660335317) eGFR Calculation mL/min/1.73m2 () (test code = 4286317977) LUIS (test code = LUIS) Association of [...] tests). Lab Interpretation Abnormal (test code = 57094-1) [facility] WITH [id number] 10:26:00 Test Item Value Reference Range Interpretation [...] (test code = 35.8 fL 38.5-51.6 L 73880-1) RDW-CV (test code = 11.3 % 12.1-15.4 L 788-0) PLT (test code = See_Comment H [Automated 777-3) message] The sy stem which generated this result transmitted reference range : 150 - 328 10*3/ ?L. The reference r neno was not used to interpret this result as normal/abnormal . MPV (test code = 9.0 fL 9.8-13 L 21843-1) NRBC/100 WBC (test See_Comment [Automat ed code = 7918951234) message] The system which generated this result transmitted reference range : 0.0 - 10.0 /100 WBCs. The refer ence range was not u sed to interpret th is result as normal/abnormal . NRBC x10^3 (test code <0.01 See_Comment [Auto mated = 9577606205) message] The s ystem which generated this result transmitted reference range : 10*3/?L. The reference range was not used to interpret this result as normal/abnormal . GRAN MAT (NEUT) % 74.5 % (test code = 770-8) IMM GRAN % (test code 0.50 % = 4374983092) LYMPH % (test code = 14.7 % 736-9) MONO % (test code = 8.5 % 5905-5) EOS % (test code = 1.5 % 713-8) BASO % (test code = 0.3 % 706-2) GRAN MAT x10^3(ANC) 6.57 10*3/uL 1.99-6.95 (test code = 7267891126) IMM GRAN x10^3 (test 0.04 10*3/uL 0-0.06 code = 3271490578) LYMPH x10^3 (test code 1.30 10*3/uL 1.09-3.23 = 731-0) MONO x10^3 (test code 0.75 10*3/uL 0.36-1.02 = 742-7) EOS x10^3 (test code = 0.13 10*3/uL 0.06-0.53 711-2) BASO x10^3 (test code 0.03 10*3/uL 0.01-0.09 = 704-7) Lab Interpretation Abnormal (test code = 13822-8) [facility] GLUCOSE (AUTOMATED)2019-11-30 09:23:00 Test Item Value Reference Range Interpretation Comments POCT GLU (test code = 9144080243) 140 mg/dL 70-110 H Lab Interpretation (test code = Abnormal 81557-4) [facility] GLUCOSE (AUTOMATED)2019-11-30 04:51:00 Test Item Value Reference Range Interpretation Comments POCT GLU (test code = 8067696409) 206 mg/dL 70-110 H Lab Interpretation (test code = Abnormal 63722-1) [facility] GLUCOSE (AUTOMATED)2019-11-30 01:36:00 Test Item Value Reference Range Interpretation Comments POCT GLU (test code = 1020460459) 201 mg/dL 70-110 H Lab Interpretation (test code = Abnormal 84247-6) [facility] GLUCOSE (AUTOMATED)2019-11-30 01:32:00 Test Item Value Reference Range Interpretation Comments POCT GLU (test code = 7449997025) 232 mg/dL 70-110 H Lab Interpretation (test code = Abnormal 84339-4) [facility] GLUCOSE (AUTOMATED)2019-11-29 23:17:00 Test Item Value Reference Range Interpretation Comments POCT GLU (test code = 7610277358) 202 mg/dL 70-110 H Lab Interpretation (test code = Abnormal 71737-1) [facility] GLUCOSE (AUTOMATED)2019-11-29 17:01:00 Test Item Value Reference Range Interpretation Comments POCT GLU (test code = 3786561216) 283 mg/dL 70-110 H Lab Interpretation (test code = Abnormal 24325-4) [facility] GLUCOSE (AUTOMATED)2019-11-29 12:40:00 Test Item Value Reference Range Interpretation Comments POCT GLU (test code = 4108016051) 207 mg/dL 70-110 H Lab Interpretation (test code = Abnormal 11611-0) [facility] (NA, K, CL, CO2, GLUCOSE, BUN, CREATININE, CA)2019-11-29 10:27:00 Test Item Value Reference Range Interpretation Comments NA (test code = 134 mmol/L 135-145 L 1738414051) K (test code = 3.0 mmol/L 3.5-5 L 9694964157) CL (test code = 98 mmol/L 98-108 0632468909) CO2 TOTAL (test code = 31 mmol/L 23-31 3413605771) AGAP (test code = 2-16 5109167172) BUN (test code = 4 mg/dL 7-23 L 3892849660) GLUCOSE (test code = 180 mg/dL 70-110 H 1287593902) CREATININE (test code = 0.39 mg/dL 0.6-1.25 L 5800645882) CALCIUM (test code = 7.8 mg/dL 8.6-10.6 L 4321709400) eGFR Calculation mL/min/1.73m2 (Non-) (test code = 9524373736) eGFR Calculation mL/min/1.73m2 () (test code = 6902900743) LUIS (test code = LUIS) Association of [...] tests). Lab Interpretation Abnormal (test code = 93607-7) [facility] WITH [id number] 09:54:00 Test Item Value Reference Range Interpretation [...] (test code = 35.2 fL 38.5-51.6 L 45553-1) RDW-CV (test code = 11.2 % 12.1-15.4 L 788-0) PLT (test code = See_Comment [Automated 777-3) message] The sy stem which generated this result transmitted reference range : 150 - 328 10*3/ ?L. The reference r neno was not used to interpret this result as normal/abnormal . MPV (test code = 8.9 fL 9.8-13 L 17359-6) NRBC/100 WBC (test See_Comment [Automat ed code = 9891249565) message] The system which generated this result transmitted reference range : 0.0 - 10.0 /100 WBCs. The refer ence range was not u sed to interpret th is result as normal/abnormal . NRBC x10^3 (test code <0.01 See_Comment [Auto mated = 5111258690) message] The s ystem which generated this result transmitted reference range : 10*3/?L. The reference range was not used to interpret this result as normal/abnormal . GRAN MAT (NEUT) % 77.2 % (test code = 770-8) IMM GRAN % (test code 0.50 % = 9063022171) LYMPH % (test code = 13.2 % 736-9) MONO % (test code = 8.1 % 5905-5) EOS % (test code = 0.8 % 713-8) BASO % (test code = 0.2 % 706-2) GRAN MAT x10^3(ANC) 6.62 10*3/uL 1.99-6.95 (test code = 1694825026) IMM GRAN x10^3 (test 0.04 10*3/uL 0-0.06 code = 6634062927) LYMPH x10^3 (test code 1.13 10*3/uL 1.09-3.23 = 731-0) MONO x10^3 (test code 0.69 10*3/uL 0.36-1.02 = 742-7) EOS x10^3 (test code = 0.07 10*3/uL 0.06-0.53 711-2) BASO x10^3 (test code <0.03 0.01-0.09 = 704-7) Lab Interpretation Abnormal (test code = 64348-1) [facility] GLUCOSE (AUTOMATED)2019-11-29 09:37:00 Test Item Value Reference Range Interpretation Comments POCT GLU (test code = 9678842091) 184 mg/dL 70-110 H Lab Interpretation (test code = Abnormal 72590-4) [facility] GLUCOSE (AUTOMATED)2019-11-29 04:45:00 Test Item Value Reference Range Interpretation Comments POCT GLU (test code = 2034259129) 237 mg/dL 70-110 H Lab Interpretation (test code = Abnormal 21169-3) [facility] (NA, K, CL, CO2, GLUCOSE, BUN, CREATININE, CA)2019-11-29 04:24:00 Test Item Value Reference Range Interpretation Comments NA (test code = 132 mmol/L 135-145 L 3516500068) K (test code = 3.1 mmol/L 3.5-5 L 6524598786) CL (test code = 98 mmol/L 98-108 9510675360) CO2 TOTAL (test code = 31 mmol/L 23-31 9348792764) AGAP (test code = 2-16 3780659721) BUN (test code = 4 mg/dL 7-23 L 1503626826) GLUCOSE (test code = 229 mg/dL 70-110 H 4001433543) CREATININE (test code = 0.42 mg/dL 0.6-1.25 L 4550057771) CALCIUM (test code = 8.0 mg/dL 8.6-10.6 L 9047148908) eGFR Calculation mL/min/1.73m2 (Non-) (test code = 4694659430) eGFR Calculation mL/min/1.73m2 () (test code = 1722150900) LUIS (test code = LUIS) Association of [...] tests). Lab Interpretation Abnormal (test code = 45227-2) [facility] GLUCOSE (AUTOMATED)2019-11-29 01:48:00 Test Item Value Reference Range Interpretation Comments POCT GLU (test code = 1916835619) 227 mg/dL 70-110 H Lab Interpretation (test code = Abnormal 44886-5) [facility] GLUCOSE (AUTOMATED)2019-11-28 22:28:00 Test Item Value Reference Range Interpretation Comments POCT GLU (test code = 0026057043) 208 mg/dL 70-110 H Lab Interpretation (test code = Abnormal 65217-1) [facility] GLUCOSE (AUTOMATED)2019-11-28 19:56:00 Test Item Value Reference Range Interpretation Comments POCT GLU (test code = 9203629943) 198 mg/dL 70-110 H Lab Interpretation (test code = Abnormal 01900-8) [facility] GLUCOSE (AUTOMATED)2019-11-28 16:56:00 Test Item Value Reference Range Interpretation Comments POCT GLU (test code = 9753319513) 127 mg/dL 70-110 H Lab Interpretation (test code = Abnormal 18271-5) [facility] GLUCOSE (AUTOMATED)2019-11-28 13:43:00 Test Item Value Reference Range Interpretation Comments POCT GLU (test code = 7415141636) 163 mg/dL 70-110 H Lab Interpretation (test code = Abnormal 29360-0) [facility] WITH [id number] 11:40:00 Test Item Value Reference Range Interpretation [...] (test code = 33.8 fL 38.5-51.6 L 28930-9) RDW-CV (test code = 10.8 % 12.1-15.4 L 788-0) PLT (test code = See_Comment H [Automated 777-3) message] The sy stem which generated this result transmitted reference range : 150 - 328 10*3/ ?L. The reference r neno was not used to interpret this result as normal/abnormal . MPV (test code = 9.0 fL 9.8-13 L 20244-6) NRBC/100 WBC (test See_Comment [Automat ed code = 2492619245) message] The system which generated this result transmitted reference range : 0.0 - 10.0 /100 WBCs. The refer ence range was not u sed to interpret th is result as normal/abnormal . NRBC x10^3 (test code <0.01 See_Comment [Auto mated = 6944056726) message] The s ystem which generated this result transmitted reference range : 10*3/?L. The reference range was not used to interpret this result as normal/abnormal . GRAN MAT (NEUT) % 82.9 % (test code = 770-8) IMM GRAN % (test code 0.60 % = 8069547951) LYMPH % (test code = 8.2 % 736-9) MONO % (test code = 7.4 % 5905-5) EOS % (test code = 0.7 % 713-8) BASO % (test code = 0.2 % 706-2) GRAN MAT x10^3(ANC) 8.89 10*3/uL 1.99-6.95 H (test code = 6430274549) IMM GRAN x10^3 (test 0.06 10*3/uL 0-0.06 code = 7758876284) LYMPH x10^3 (test code 0.88 10*3/uL 1.09-3.23 L = 731-0) MONO x10^3 (test code 0.79 10*3/uL 0.36-1.02 = 742-7) EOS x10^3 (test code = 0.07 10*3/uL 0.06-0.53 711-2) BASO x10^3 (test code <0.03 0.01-0.09 = 704-7) Lab Interpretation Abnormal (test code = 55094-0) [facility] METABOLIC PANEL (NA, K, CL, CO2, GLUCOSE, BUN, CREATININE, CA)2019-11-28 11:17:00 Test Item Value Reference Range Interpretation Comments NA (test code = 133 mmol/L 135-145 L 0463182551) K (test code = 2.6 mmol/L 3.5-5 LL 3647519360) CL (test code = 94 mmol/L 98-108 L 9850571473) CO2 TOTAL (test code = 30 mmol/L 23-31 3322524017) AGAP (test code = 2-16 0566417597) BUN (test code = 3 mg/dL 7-23 L 9085276545) GLUCOSE (test code = 152 mg/dL 70-110 H 8726871331) CREATININE (test code = 0.36 mg/dL 0.6-1.25 L 1474582255) CALCIUM (test code = 7.8 mg/dL 8.6-10.6 L 6138933175) eGFR Calculation mL/min/1.73m2 (Non-) (test code = 6490319753) eGFR Calculation mL/min/1.73m2 () (test code = 2615756069) LUIS (test code = LUIS) Association of [...] tests). Lab Interpretation Abnormal (test code = 97929-2) [facility] GLUCOSE (AUTOMATED)2019-11-28 09:02:00 Test Item Value Reference Range Interpretation Comments POCT GLU (test code = 5050973382) 151 mg/dL 70-110 H Lab Interpretation (test code = Abnormal 15276-1) [facility] Level - Draw within 30 minutes prior to 4TH dose.2019-11-28 06:09:00 Test Item Value Reference Range Interpretation Comments VANCO TROUGH (test code 5.5 ug/mL 10-20 L = 5106560123) LUIS (test code = LUIS) Toxic Range: ?>20 ug/mL 15-20 ug/mL is recommended for severe infection or when Vancomycin LISA is greater than or equal to 2. Lab Interpretation (test Abnormal code = 20112-9) [facility] GLUCOSE (AUTOMATED)2019-11-28 05:10:00 Test Item Value Reference Range Interpretation Comments POCT GLU (test code = 0793394661) 213 mg/dL 70-110 H Lab Interpretation (test code = Abnormal 22228-9) [facility] GLUCOSE (AUTOMATED)2019-11-28 01:10:00 Test Item Value Reference Range Interpretation Comments POCT GLU (test code = 3110944221) 204 mg/dL 70-110 H Lab Interpretation (test code = Abnormal 34465-9) [facility] GLUCOSE (AUTOMATED)2019-11-27 22:11:00 Test Item Value Reference Range Interpretation Comments POCT GLU (test code = 5080690711) 159 mg/dL 70-110 H Lab Interpretation (test code = Abnormal 29462-0) [facility]FL [facility] (NON-REPORTABLE)2019-11-27 21:39:17 These images do not require a Radiology diagnostic report.[facility] HospitalMR FOOT LEFT W WO [id number] 14:58:43Soft tissue gas surrounding the first and [...] arim-enhancingplantar medial first digit ulceration. ?Enhancement with F7quyata increase and mild T1 signal decreas e [...] plantar medial first digit ulceration. Enhancement with S8ztqpah increase and mild T1 signal decrease involve [...] fourth digit distal phalanxgiven ulceration at this site.[facility]PO[facility])2019-11-27 14:04:00 Test Item Value Reference Range Interpretation Comments POCT GLU (test code = 5853770864) 182 mg/dL 70-110 H Lab Interpretation (test code = Abnormal 86748-4) [facility]MAGN[facility]IUM2020-08-30 12:36:00 Test Item Value Reference Range Interpretation Comments MAGNESIUM (test code = 8647519815) 2.0 mg/dL 1.7-2.4 Lab Interpretation (test code = Normal 32246-0) [facility] HospitalABORH [id number] 12:03:33 Test Item Value Reference Range Interpretation Comments ABO & RH (test code O Positive Performe d at [facility] = 20) Laboratory Serv [facility] Blood Bank[address] [place] [address]Djsk Free: [phone] A No. [id number] [facility] (NA, K, CL, CO2, GLUCOSE, BUN, CREATININE, CA)2019-11-27 11:21:00 Test Item Value Reference Range Interpretation Comments NA (test code = 133 mmol/L 135-145 L 5262686396) K (test code = 2.6 mmol/L 3.5-5 LL 7588523243) CL (test code = 95 mmol/L 98-108 L 8675372153) CO2 TOTAL (test code = 29 mmol/L 23-31 9033815792) AGAP (test code = 2-16 0578135953) BUN (test code = 5 mg/dL 7-23 L 1665687861) GLUCOSE (test code = 187 mg/dL 70-110 H 1421902630) CREATININE (test code = 0.44 mg/dL 0.6-1.25 L 3951894013) CALCIUM (test code = 8.0 mg/dL 8.6-10.6 L 8769292170) eGFR Calculation mL/min/1.73m2 (Non-) (test code = 1927708397) eGFR Calculation mL/min/1.73m2 () (test code = 3854524058) LUIS (test code = LUIS) Association of [...] tests). Lab Interpretation Abnormal (test code = 35972-5) [facility] WITH [id number] 10:21:00 Test Item Value Reference Range Interpretation [...] (test code = 33.7 fL 38.5-51.6 L 25527-2) RDW-CV (test code = 10.9 % 12.1-15.4 L 788-0) PLT (test code = See_Comment H [Automated 777-3) message] The sy stem which generated this result transmitted reference range : 150 - 328 10*3/ ?L. The reference r neno was not used to interpret this result as normal/abnormal . MPV (test code = 9.0 fL 9.8-13 L 30163-7) NRBC/100 WBC (test See_Comment [Automat ed code = 5490631905) message] The system which generated this result transmitted reference range : 0.0 - 10.0 /100 WBCs. The refer ence range was not u sed to interpret th is result as normal/abnormal . NRBC x10^3 (test code <0.01 See_Comment [Auto mated = 0522779598) message] The s ystem which generated this result transmitted reference range : 10*3/?L. The reference range was not used to interpret this result as normal/abnormal . GRAN MAT (NEUT) % 78.2 % (test code = 770-8) IMM GRAN % (test code 0.60 % = 3970209065) LYMPH % (test code = 12.4 % 736-9) MONO % (test code = 7.7 % 5905-5) EOS % (test code = 0.8 % 713-8) BASO % (test code = 0.3 % 706-2) GRAN MAT x10^3(ANC) 8.47 10*3/uL 1.99-6.95 H (test code = 9124601362) IMM GRAN x10^3 (test 0.07 10*3/uL 0-0.06 H code = 6040518337) LYMPH x10^3 (test code 1.34 10*3/uL 1.09-3.23 = 731-0) MONO x10^3 (test code 0.84 10*3/uL 0.36-1.02 = 742-7) EOS x10^3 (test code = 0.09 10*3/uL 0.06-0.53 711-2) BASO x10^3 (test code 0.03 10*3/uL 0.01-0.09 = 704-7) Lab Interpretation Abnormal (test code = 11523-3) [facility]2019-11-27 10:14:00 Test Item Value Reference Range Interpretation Comments POCT GLU (test code = 3094848831) 172 mg/dL 70-110 H Lab Interpretation (test code = Abnormal 26985-1) [facility] HospitalType and Screen - ONCE Cohhrjq9608-49-62 09:41:31 Test Item Value Reference Range Interpretation Comments ABO & RH (test code O POSITIVE Performe d at [facility] = 20) Laboratory Serv ice - [facility] Blood Bank3 [address] [facility] s [address]Ckig Free: [phone] A No. [id number] IAT (test code = Negative Performed a t [facility] 1185) Laboratory Serv [facility] Blood Bank3 [facility] s [address]Lerx Free: [phone] A No. [id number] [facility] GLUCOSE (AUTOMATED)2019-11-27 04:28:00 Test Item Value Reference Range Interpretation Comments POCT GLU (test code = 2003662483) 189 mg/dL 70-110 H Lab Interpretation (test code = Abnormal 48809-3) [facility] HospitalLipid Panel (Total Cholesterol, Triglycerides, HDL) - [id number] 01:28:00 Test Item Value Reference Range Interpretation Comments CHOL (test code = 117 mg/dL 120-200 L 4058391646) HDL (test code = 19 mg/dL >40 L 6444346607) HDLC RATIO (test code = See_Comment H [Au tomated message] 5893067616) The system [employer] generated this result transmit alex reference range : <=5.0. The refe rence range was not u sed to interpret th is result as normal/abnormal . TRIG (test code = 122 mg/dL 30-170 7524488081) LDL CHOL (test code = 74 mg/dL See_Comment [Auto mated message] 81301-6) The system [employer] generated this result transmit alex reference range : <=160. The refe rence range was not u sed to interpret th is result as normal/abnormal . VLDL (test code = 24 mg/dL 5-60 4506145840) Lab Interpretation (test Abnormal code = 32336-8) [facility] GLUCOSE (AUTOMATED)2019-11-27 01:27:00 Test Item Value Reference Range Interpretation Comments POCT GLU (test code = 2733687326) 252 mg/dL 70-110 H Lab Interpretation (test code = Abnormal 76185-3) [facility] GLUCOSE (AUTOMATED)2019-11-26 19:07:00 Test Item Value Reference Range Interpretation Comments POCT GLU (test code = 9108964868) 192 mg/dL 70-110 H Lab Interpretation (test code = Abnormal 89255-4) [facility]2019-11-26 14:12:00 Test Item Value Reference Range Interpretation Comments POCT GLU (test code = 5002248599) 181 mg/dL 70-110 H Lab Interpretation (test code = Abnormal 37399-7) [facility]XR FOOT <3 VW [id number] 11:24:50 Soft tissue defect and extensive soft [...] reviewed this study and agree with the abovereport.[facility] HospitalLanvic Acid Whole [id number] 09:42:00 Test Item Value Reference Range Interpretation Comments LACTIC ACID (test code = 1.12 mmol/L QUE S 5279397831) [facility]SE (AUTOMATED)2019-11-26 09:38:00 Test Item Value Reference Range Interpretation Comments POCT GLU (test code = 2749202262) 211 mg/dL 70-110 H Lab Interpretation (test code = Abnormal 95960-4) [facility] HospitalGlycosylated Hemoglobin (A1C)2019-11-26 07:30:00 Test Item Value Reference Range Interpretation Comments HGB A1C (test code = 10.8 % 4-6 H 4548-4) LUIS (test code = LUIS) %A1C (NGSP) Interpretation (ADA)4.8-5.6 ? ? Normal or (Non-Diabetic Range)5.7-6.4 ? ? Increased Risk (Pre-Diabetic)>6.5 ?Diabetes Indicated Lab Interpretation Abnormal (test code = 92490-2) [facility] WITH [id number] 03:47:00 Test Item Value Reference Range Interpretation [...] (test code = 33.4 fL 38.5-51.6 L 11202-3) RDW-CV (test code = 10.8 % 12.1-15.4 L 788-0) PLT (test code = See_Comment H [Automated 777-3) message] The system which generated this result transmit alex reference range : 150 - 328 10*3/ ?L. The reference range was not u sed to interpret th is result as normal/abnormal . MPV (test code = 9.5 fL 9.8-13 L 92991-5) NRBC/100 WBC (test See_Comment [Automat ed code = 8877362341) message] The system which generated this result transmit alex reference range : 0.0 - 10.0 /100 WBCs. The reference range was not used to interpret this result as normal/abnormal . NRBC x10^3 (test code <0.01 See_Comment [Auto mated = 5951928669) message] The system which generated this result transmit alex reference range : 10*3/?L. The reference range was not used to interpret this result as normal/abnormal . GRAN MAT (NEUT) % 84.3 % (test code = 770-8) IMM GRAN % (test code 0.90 % = 3261357618) LYMPH % (test code = 7.5 % 736-9) MONO % (test code = 6.8 % 5905-5) EOS % (test code = 0.2 % 713-8) BASO % (test code = 0.3 % 706-2) GRAN MAT x10^3(ANC) 15.55 10*3/uL 1.99-6.95 H (test code = 9906956393) IMM GRAN x10^3 (test 0.16 10*3/uL 0-0.06 H code = 8354075458) LYMPH x10^3 (test code 1.39 10*3/uL 1.09-3.23 = 731-0) MONO x10^3 (test code 1.25 10*3/uL 0.36-1.02 H = 742-7) EOS x10^3 (test code = 0.03 10*3/uL 0.06-0.53 L 711-2) BASO x10^3 (test code 0.05 10*3/uL 0.01-0.09 = 704-7) Lab Interpretation Abnormal (test code = 97420-5) [facility] HospitalCOVID-19 (ID NOW RAPID TESTING)2019-11-26 03:22:00 Test Item Value Reference Range Interpretation Comments SARS-CoV-2 Rapid ID NOW Not Detected Not Detected (test code = 25007-4) LUIS (test code = LUIS) ID NOW COVID-19 Assay is an isothermal nucleic acid amplification test intended for the qualitative detection of nucleic acid from SARS-CoV-2 viral RNA in nasopharyngeal (ASSURANCE SENIOR MANAGER) specimens. It is used under Emergency [...] indicated. Lab Interpretation Normal (test code = 33127-9) [facility] HospitalCOM. METABOLIC PANEL (84349)2019-11-26 02:58:00 Test Item Value Reference Range Interpretation Comments NA (test code = 128 mmol/L 135-145 L 8988531278) K (test code = 3.9 mmol/L 3.5-5 9748158038) CL (test code = 89 mmol/L 98-108 L 8243724751) CO2 TOTAL (test code = 28 mmol/L 23-31 8605097140) AGAP (test code = 2-16 2671009302) BUN (test code = 11 mg/dL 7-23 0754298939) GLUCOSE (test code = 300 mg/dL 70-110 H 7773453883) CREATININE (test code = 0.51 mg/dL 0.6-1.25 L 8986632390) TOTAL BILI (test code = 1.4 mg/dL 0.1-1.1 H 2624913071) CALCIUM (test code = 8.4 mg/dL 8.6-10.6 L 1669964988) T PROTEIN (test code = 7.0 g/dL 6.3-8.2 3305687098) ALBUMIN (test code = 3.5 g/dL 3.5-5 9944927458) ALK PHOS (test code = 119 U/L 34-122 8540359809) ALTv (test code = 40 U/L 5-50 1742-6) AST(SGOT) (test code = 56 U/L 13-40 H 9759768571) eGFR Calculation mL/min/1.73m2 (Non-) (test code = 6000801891) eGFR Calculation mL/min/1.73m2 () (test code = 0488360494) LUIS (test code = LUIS) Association of [...] tests). Lab Interpretation Abnormal (test code = 08795-3) [facility] HospitalLactic Acid Whole [id number] 02:20:00 Test Item Value Reference Range Interpretation Comments LACTIC ACID (test code = 2.59 mmol/L 1954930036) [facility]"
--- NOTE | 2022-06-17 13:37 | RAD REPORT ---
EXAM DESCRIPTION: RAD - Hand Left 3 View - 06/17/2022 1:25 pm CLINICAL HISTORY: PAIN COMPARISON: Hand Left 3 View dated 03/04/2022 FINDINGS: Diffuse osteopenia is present. Previous amputation third finger. Heavy vascular atheroscle rosis. No fracture evident.
[2022-06-17] MEDS ORDERED: PROMETHAZINE INJ 25 MG/ML AMP ONE (13:55)
--- NOTE | 2022-06-17 14:28 | ER ---
Nurse's Notes [facility] Name: Jerson Lopes Age: 56 yrs Sex: Male : 1965 Arrival Date: 06/17/2022 Time: 11:42 Bed 12 Private MD: Diagnosis: Surgical wound pain Presentation: 06/17 12:27 Chief complaint: Patient states: Left hand pain that has become worse within the last vg1 two day, pt has left middle digit amputated; appears to have discoloration to left hand and appears to be purulent. Also stated N/V that began today. Coronavirus screen: Vaccine status: Patient reports receiving the 2nd dose of the covid vaccine. Client denies travel out of the [place] in the last 14 days. Ebola Screen: Patient negative for fever greater than or equal to 101.5 degrees Fahrenheit, and additional compatible Ebola Virus Disease symptoms Patient denies exposure to infectious person. Patient denies travel to an Ebola-affected area in the 21 days before illness onset. Initial Sepsis Screen: Does the patient meet any 2 criteria? No. Patient's initial sepsis screen is negative. Does the patient have a suspected source of infection? No. Patient's initial sepsis screen is negative. Risk Assessment: Do you want to hurt yourself or someone else? Patient reports no desire to harm self or others. Onset of symptoms was June 15, 2022. 12:27 Method Of Arrival: Wheelchair vg1 12:27 Acuity: DALILA 3 vg1 Triage Assessment: 12:29 General: Appears in no apparent distress. uncomfortable, Behavior is calm, cooperative. vg1 Pain: Complains of pain in left hand Pain currently is 10 out of 10 on a pain scale. Derm: Wound noted left hand. 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 Historical: - Allergies: 12:29 No Known Allergies; vg1 - Home Meds: 12:29 insulin [Active]; vg1 - PMHx: 12:29 diabetes mellitus; Hypertensive disorder; Hypercholesterolemia; vg1 - PSHx: 12:31 finger amputation; Hip surgery; vg1 - Immunization history:: Client reports receiving the 2nd dose of the Covid vaccine. - Social history:: Smoking status: Patient denies any tobacco usage or history of. Screenin:34 Abuse screen: Denies threats or abuse. Denies injuries from another. iw Assessment: 12:34 Reassessment: pt presented a document with a follow up provider for Left hand vg1 procedure; pt is to contact rn surgical pcu Diana Arango [phone]; misha\Joyce\[facility];. Vital Signs: 12:27 BP 111 / 37; Pulse 70; Resp 14; Temp 98.4(O); Pulse Ox 93% on R/A; Weight 52.16 kg (R); vg1 Height 5 ft. 4 in. ; Pain 10/10; 12:27 Body Mass Index 19.74 (52.16 kg, 162.56 cm) vg1 12:27 Pain Scale: Adult vg1 ED Course: 11:42 Patient arrived in ED. rg4 11:45 [facility] snw 11:45 Oc Linares MD is Attending Physician. snw 12:29 Triage completed. vg1 12:31 Arm band placed on. vg1 13:26 Hand Left 3 View XRAY In Process Unspecified. EDMS 13:46 Lizz Douglas, RN is Primary Nurse. iw Administered Medications: 14:06 Drug: Promethazine IM 25 mg Route: IM; Site: right gluteus; iw Outcome: 14:27 Discharge ordered by MD. snw 15:35 Discharged to home via wheelchair, with family. iw 15:35 Condition: good 15:35 Discharge instructions given to patient, family, Instructed on discharge instructions, follow up and referral plans. Demonstrated understanding of instructions, follow-up care. 15:36 Patient left the ED. iw Signatures: Dispatcher [employer] EDMS Sue Banks FNP-C SUPERVISOR MAINTENANCE-Csnw Lizz Douglas, [place] RN iw Kaila Barnes rg4 Beverly Barnes RN RN vg1 Corrections: (The following items were deleted from the chart) 12:30 12:27 Chief complaint: Patient states: Left hand pain that has become worse within the vg1 last two day, pt has left middle digit amputated; appears to have discoloration to left hand and appears to be purulent. vg1
--- NOTE | 2022-06-17 14:28 | EDPHYS ---
Physician Documentation [facility] Name: Jerson Lopes Age: 56 yrs Sex: Male : 1965 Arrival Date: 06/17/2022 Time: 11:42 Bed 12 Private MD: ED Physician Oc Linares HPI: 06/17 14:18 This 56 yrs old Male presents to ER via Wheelchair with complaints of Hand snw Pain. 14:18 The patient or guardian reports pain. The complaints affect the left hand diffusely. snw Context:. Historical: - Allergies: 12:29 No Known Allergies; vg1 - Home Meds: 12:29 insulin [Active]; vg1 - PMHx: 12:29 diabetes mellitus; Hypertensive disorder; Hypercholesterolemia; vg1 - PSHx: 12:31 finger amputation; Hip surgery; vg1 - Immunization history:: Client reports receiving the 2nd dose of the Covid vaccine. - Social history:: Smoking status: Patient denies any tobacco usage or history of. ROS: 12:28 Eyes: Negative for injury, pain, redness, and discharge, ENT: Negative for injury, snw pain, and discharge, Neck: Negative for injury, pain, and swelling, Cardiovascular: Negative for chest pain, palpitations, and edema, Respiratory: Negative for shortness of breath, cough, wheezing, and pleuritic chest pain. 12:28 Back: Negative for injury and pain, : Negative for injury, bleeding, discharge, and swelling, Skin: Negative for injury, rash, and discoloration, Neuro: Negative for headache, weakness, numbness, tingling, and seizure, Psych: Negative for depression, anxiety, suicide ideation, homicidal ideation, and hallucinations. 12:28 Constitutional: Positive for malaise, poor PO intake. 12:28 Abdomen/GI: Positive for nausea and vomiting. 12:28 MS/extremity: Positive for pain, of the left hand. Exam: 12:27 Head/Face: Normocephalic, atraumatic. Eyes: Pupils equal round and reactive to light, snw extra-ocular motions intact. Lids and lashes normal. Conjunctiva and sclera are non-icteric and not injected. Cornea within normal limits. Periorbital areas with no swelling, redness, or edema. ENT: Nares patent. No nasal discharge, no septal abnormalities noted. Tympanic membranes are normal and external auditory canals are clear. Oropharynx with no redness, swelling, or masses, exudates, or evidence of obstruction, uvula midline. Mucous membranes moist. Neck: Trachea midline, no thyromegaly or masses palpated, and no cervical lymphadenopathy. Supple, full range of motion without nuchal rigidity, or vertebral point tenderness. No Meningismus. Chest/axilla: Normal chest wall appearance and motion. Nontender with no deformity. No lesions are appreciated. 12:27 Constitutional: The patient appears alert, uncomfortable. 12:27 Skin: Appearance: Color: pale, Wound recheck: previous left 3rd finger amputation with resultant infection is open to area, seo material at base with mild surrounding erythema. Vital Signs: 12:27 BP 111 / 37; Pulse 70; Resp 14; Temp 98.4(O); Pulse Ox 93% on R/A; Weight 52.16 kg (R); vg1 Height 5 ft. 4 in. ; Pain 10/10; 12:27 Body Mass Index 19.74 (52.16 kg, 162.56 cm) vg1 12:27 Pain Scale: Adult vg1 MDM: 11:54 Patient medically screened. snw 12:20 Differential diagnosis: wound infection, gangrene, cellulitis. Data reviewed: pt's snw previous two visits concern the same problem. Pt has paperwork from [facility] in his hand. 12:22 External Records Reviewed: [facility] scheduled follow up paperwork in pt's possession. Care snw significantly affected by the following chronic conditions: Diabetes. 14:22 Special discussion: Pt was seen 06/06/22 and had a work up that resulted in a transfer snw back to [facility] for surgical debridement of amputation site from previous left third finger tenosynovitis. Pt brought his follow up information for [facility] with him to [facility]. Pt is hemodynamically stable but complains of pain to previous surgical site. No gas noted to wound. Will clean and dress and ask pt to continue antibiotics he is reported to be taking and encourage he follow up at [facility] as scheduled. 06/17 12:19 Order name: Hand Left 3 View XRAY; Complete Time: 13:39 snw 06/17 14:27 Order name: Wound Care; Complete Time: 14:59 snw 06/17 14:27 Order name: Wound dressing; Complete Time: 14:59 snw Administered Medications: 14:06 Drug: Promethazine IM 25 mg Route: IM; Site: right gluteus; iw Disposition: 17:46 Co-signature as Attending Physician, Oc DEWITT I reviewed the patient's care rn provided by the Advanced Practice Provider and agree with the diagnosis and treatment plan. Disposition Summary: 06/17/22 14:27 Discharge Ordered Location: Home snw Condition: Stable snw Diagnosis - Surgical wound pain snw Followup: snw - With: Emergency Department - When: As needed - Reason: Worsening of condition Followup: snw - With: Private Physician - When: Tomorrow - Reason: Recheck today's complaints, Continuance of care Discharge Instructions: - Discharge Summary Sheet snw - Wound Care, Adult snw - Surgical Wound Debridement snw - Wound Packing snw - Surgical Wound Debridement, Care After snw Forms: - Medication Reconciliation Form snw - Thank You Letter snw - Antibiotic Education snw - Prescription Opioid Use snw Prescriptions: - acetaminophen-codeine 300-15 mg Oral tablet - take 1 tablet by ORAL route 3 times per day; 12 tablet; Refills: 0, Product snw Selection Permitted Signatures: Dispatcher [employer] Sue Limon, DIE SETTER-C DIE SETTER-Csnw Lizz Douglas, RN Oc Moncada MD MD rn Garcia, Victoria, RN RN vg1
[2022-06-17 17:03] VITALS: BP 111/37; TEMP 98.4; O2SAT 93
== END 2022-06-17 15:36 | disposition home or self-care (01) ==
LOC: ER 11:41
DX: G89.18 Other acute postprocedural pain (principal)
CPT/HCPCS: 96372; 99283; J2550